=== PATIENT | female | born 1980 | race Caucasian/White ===

== ENCOUNTER 2018-10-26 13:23 | Observation (INO) | payer MEDICAID, SELFPAY ==
[2018-10-26 13:32] VITALS: BP 95/67; PULSE 61; RESP 18; TEMP 36.7; O2SAT 100
[2018-10-26 13:48] VITALS: RESP 18
--- NOTE | 2018-10-26 13:56 | W.ED.GENAD ---
Discharge Plan Disposition [facility] Discharge Details Chief Complaint: Vascular Clinical Impression: Excessive vaginal bleeding, Anticoagulated, Anemia, Acute deep vein thrombosis (DVT) of distal end of left lower extremity Primary Care Provider: Suzie Taylor ED Provider: Reddy Shine Home Meds and New Rx's Prescriptions: No Action Buprenorphine/Naloxone [Suboxone 12 MG-3 MG SL FILM] 1 EACH Film 1 unit PO DAILY RF: 0 methocarbamol 500 mg Tablet 500 mg PO QID PRNRF: 0 gabapentin 600 mg Tablet 600 mg PO TID RF: 0 trazodone 50 mg Tablet 50 mg PO QHS RF: 0 sulfamethoxazole-trimethoprim [Bactrim DS] 800-160 mg Tablet 1 tab PO BID RF: 0 acetaminophen 500 mg Tablet 1,000 mg PO Q6H PRNRF: 0 Therapeutic-M 9 mg iron-400 mcg Tablet 1 tab PO DAILY RF: 0 ferrous gluconate 324 mg (37.5 mg iron) Tablet 324 mg PO DAILY RF: 0 Eliquis 5 mg Tablet 10 mg PO BID RF: 0 Medical Decision Making This is a chronically unwell 37-year-old female with a significant history for IV drug use status post [id number] amputation of her right leg status post DVT of the left lower extremity now on Eliquis who presents with heavy vaginal bleeding in the setting of her menses. Her vitals reflect a blood pressure of 95/67 with a map of 76. Reviewing previous records indicate similar BP readings. She is not tachycardic here. Her abdomen is soft and nontender. She has good peripheral circulation with extremities warm and cap refill less than 2 seconds. Her pelvic exam reveals noted vaginal bleeding coming from the cervical os with moderate clot burden in the vaginal vault. No cervical lesions noted. Her lab values today show a anemia at 8.2 and 27. Platelet count within normal limits. She is hCG negative here. A positive on type and screen. Borderline requiring transfusion at this time. I feel admission with observation and potential transfusion is necessary. Case discussed with Dr. Ken from [facility] who also agrees and will admit to inpatient unit. HPI General Date/Time Provider Initiated Documentation: 10/26/18 13:31. HPI Narrative: Patient is a 37-year-old female status post right [id number]-fxa-xpmb amputation secondary to osteomyelitis from IV drug use, recently diagnosed DVT in her left lower extremity on Eliquis starting on 10/24/2018 who presents to the emergency department with severe heavy vaginal bleeding. Patient states she is normally quite regular and light with her menstrual period. She normally has light spotting for 3 to 4 days. Her vaginal bleeding today coincides with her scheduled menstrual cycle however her bleeding is quite abnormal. She admits to fatigue and some mild dizziness. She denies any abdominal pain. Related Data Home Medications Medication Instructions Recorded Confirmed Buprenorphine/Naloxone [Suboxone 1 unit PO DAILY 07/17/17 10/26/18 12 MG-3 MG SL FILM] acetaminophen 1,000 mg PO Q6H PRN 10/26/18 10/26/18 apixaban [Eliquis] 10 mg PO BID 10/26/18 10/26/18 ferrous gluconate 324 mg PO DAILY 10/26/18 10/26/18 gabapentin 600 mg PO TID 10/26/18 10/26/18 methocarbamol 500 mg PO QID PRN 10/26/18 10/26/18 mitnghor-gwaa-XA-calcium-mins 1 tab PO DAILY 10/26/18 10/26/18 [Therapeutic-M] sulfamethoxazole-trimethoprim 1 tab PO BID 10/26/18 10/26/18 [Bactrim DS] trazodone 50 mg PO QHS 10/26/18 10/26/18 Allergies Allergy/AdvReac Type Severity Reaction Status Date / Time No Known Allergies Allergy Unverified 10/26/18 13:38 General Stated Complaint: [facility] [employer] LEIF: 3 Review of Systems Constitutional Denies chills, Denies fever(s), Denies lethargy, Denies night sweats and Reports weakness Eyes Denies diplopia Cardiovascular Denies chest pain, Denies edema, Denies irregular heart rhythm, Reports lightheadedness and Denies dyspnea Respiratory Denies dyspnea Gastrointestinal Denies abdominal pain, Denies nausea and Denies vomiting Genitourinary Reports abnormal menses, Reports abnormal vaginal bleeding, Reports metrorrhagia, Denies dysuria and Denies pelvic pain Neurologic Reports weakness Hematologic/Lymphatic Reports easy bleeding and Reports easy bruising [facility] Social History Smoking/Tobacco Use Status: Never Alcohol Intake: never Drug use: Current Sobriety Substance use type: does not use Details: former cocaine and heroin use Do you feel safe at home: Yes Do you feel safe in your relationship?: No Exam Const General: cooperative, comfortable and no acute distress Orientation: alert, awake and oriented x3 HENMT Head: normal to inspection Mouth: oral mucosae normal Eyes General: appearance normal, both eyes and all related structures Chest Chest: normal inspection of the chest Resp Effort & Inspection: normal respiratory effort and able to speak in complete sentences Auscultation: clear to auscultation bilaterally Cardio Jugular venous pressure: no JVD Rate: regular rate Rhythm: regular rhythm Pulses: normal peripheral pulses GI Inspection: normal to inspection Palpation: soft and nontender Speculum Exam - Vagina: vaginal bleeding Speculum Exam - Cervix: closed cervix and abnormal cervical discharge bloody OB/External & Speculum: vaginal bleeding Skin General skin exam: petechiae (Left calf) and pallor Extrem Left lower extremity: lower leg Details: tenderness and non-pitting edema Course Vital Signs Temperature 36.7 C 10/26/18 13:32 Pulse 61 10/26/18 13:32 Respiratory Rate 18 10/26/18 13:32 Blood Pressure 95/67 L 10/26/18 13:32 Pulse Oximetry 100 10/26/18 13:32 Temperature 36.7 C 10/26/18 13:32 Temperature Source Temporal Artery Scan 10/26/18 13:32 Pulse 61 10/26/18 13:32 Respiratory Rate 18 10/26/18 13:48 Respiratory Effort Non-Labored 10/26/18 13:48 Respiratory Depth Normal 10/26/18 13:48 Respiratory Pattern Normal 10/26/18 13:48 Blood Pressure 95/67 L 10/26/18 13:32 Blood Pressure Position Sitting 10/26/18 13:32 Pulse Oximetry 100 10/26/18 13:32 Oxygen Delivery Method Room Air 10/26/18 13:32 Oxygen Flow Rate 0 10/26/18 13:32 Pain Level 0 10/26/18 13:48
[2018-10-26 14:46] LABS: Abs Immature Grans 0.01 k/cumm (0.0-0.09); Absolute Basophil Count 0.01 k/cumm (0.0-0.2); Absolute Eosinophil Count 0.09 k/cumm (0.0-0.7); Absolute Lymphocyte Count 0.69 k/cumm (1.2-3.4); Absolute Monocyte Count 0.33 k/cumm (0.11-0.7); Absolute Neutrophil Count 2.28 k/cumm (1.2-6.7); Basophils % 0.3; Eosinophils % 2.6; HCT 27.6 % (36.0-46.0); HGB 8.2 g/dL (12.0-15.5); Immature Grans % 0.3; Lymphocytes % 20.2; Mean Corp. HGB Concentration 29.7 g/dL (32.0-36.0); Mean Corpuscular Hemoglobin 24.9 pg (27.0-33.0); Mean Corpuscular Volume 83.9 fL (80-95); Mean Platelet Volume 10.7 fL (8.0-11.0); Monocytes % 9.7; Neutrophils % 66.9; Platelet Count 194 x1000/uL (130-400); RBC 3.29 m/cumm (4.00-5.20); White Blood Cell Count 3.41 k/cumm (4.4-10.8)
[2018-10-26 15:00] LABS: Diff Comment RBC Morph Reviewed; HCG Qual (Serum) Negative; Hypochromasia 3+
[2018-10-26 15:08] LABS: ALT 16 U/L (12-78); AST 43 U/L (15-37); Albumin 2.8 g/dL (3.4-5.0); Alkaline Phosphatase 122 U/L (46-116); BUN 15 mg/dL (7-18); Bilirubin, Total 0.4 mg/dL (0.2-1.0); CREATININE 1.18 mg/dL (0.55-1.02); Calcium 9.1 mg/dL (8.5-10.1); Chloride 102 mmol/L (98-107); Estimated GFR 52.13 (mL/min/1.73m2); Glucose 70 mg/dL (70-100); Potassium 4.9 mmol/L (3.5-5.1); Sodium 136 mmol/L (136-145); Total Protein 7.9 g/dL (6.4-8.2)
--- NOTE | 2018-10-26 15:34 | ED.GENADUL_ITS ---
Discharge Plan Disposition Patient Disposition: [facility] Discharge Details Chief Complaint: Vascular Clinical Impression: Excessive vaginal bleeding, Anticoagulated, Anemia, Acute deep vein thrombosis (DVT) of distal end of left lower extremity Primary Care Provider: Suzie Taylor ED Provider: Reddy Shine Home Meds and New Rx's Prescriptions: No Action Buprenorphine/Naloxone [Suboxone 12 MG-3 MG SL FILM] 1 EACH Film 1 unit PO DAILY RF: 0 methocarbamol 500 mg Tablet 500 mg PO QID PRNRF: 0 gabapentin 600 mg Tablet 600 mg PO TID RF: 0 trazodone 50 mg Tablet 50 mg PO QHS RF: 0 sulfamethoxazole-trimethoprim [Bactrim DS] 800-160 mg Tablet 1 tab PO BID RF: 0 acetaminophen 500 mg Tablet 1,000 mg PO Q6H PRNRF: 0 Therapeutic-M 9 mg iron-400 mcg Tablet 1 tab PO DAILY RF: 0 ferrous gluconate 324 mg (37.5 mg iron) Tablet 324 mg PO DAILY RF: 0 Eliquis 5 mg Tablet 10 mg PO BID RF: 0 Medical Decision Making This is a chronically unwell 37-year-old female with a significant history for IV drug use status post jxcic-oer-mahk amputation of her right leg status post DVT of the left lower extremity now on Eliquis who presents with heavy vaginal bleeding in the setting of her menses. Her vitals reflect a blood pressure of 95/67 with a map of 76. Reviewing previous records indicate similar BP readings. She is not tachycardic here. Her abdomen is soft and nontender. She has good peripheral circulation with extremities warm and cap refill less than 2 seconds. Her pelvic exam reveals noted vaginal bleeding coming from the cervical os with moderate clot burden in the vaginal vault. No cervical lesions noted. Her lab values today show a anemia at 8.2 and 27. Platelet count within normal limits. She is hCG negative here. A positive on type and screen. Borderline requiring transfusion at this time. I feel admission with observation and potential transfusion is necessary. Case discussed with Dr. Ken from [facility] who also agrees and will admit to inpatient unit. HPI General Date/Time Provider Initiated Documentation: 10/26/18 13:31 . HPI Narrative: Patient is a 37-year-old female status post right xbdfy-ryg-tgac amputation secondary to osteomyelitis from IV drug use, recently diagnosed DVT in her left lower extremity on Eliquis starting on 10/24/2018 who presents to the emergency department with severe heavy vaginal bleeding. Patient states she is normally quite regular and light with her menstrual period. She normally has light spotting for 3 to 4 days. Her vaginal bleeding today coincides with her scheduled menstrual cycle however her bleeding is quite abnormal. She admits to fatigue and some mild dizziness. She denies any abdominal pain. Related Data Home Medications Medication Instructions Recorded Confirmed Buprenorphine/Naloxone [Suboxone 1 unit PO DAILY 07/17/17 10/26/18 12 MG-3 MG SL FILM] acetaminophen 1,000 mg PO Q6H PRN 10/26/18 10/26/18 apixaban [Eliquis] 10 mg PO BID 10/26/18 10/26/18 ferrous gluconate 324 mg PO DAILY 10/26/18 10/26/18 gabapentin 600 mg PO TID 10/26/18 10/26/18 methocarbamol 500 mg PO QID PRN 10/26/18 10/26/18 jcsjgbcs-cief-OU-calcium-mins 1 tab PO DAILY 10/26/18 10/26/18 [Therapeutic-M] sulfamethoxazole-trimethoprim 1 tab PO BID 10/26/18 10/26/18 [Bactrim DS] trazodone 50 mg PO QHS 10/26/18 10/26/18 Allergies Allergy/AdvReac Type Severity Reaction Status Date / Time No Known Allergies Allergy Unverified 10/26/18 13:38 General Stated Complaint: [facility] LEIF: 3 Review of Systems Constitutional Denies chills, Denies fever(s), Denies lethargy, Denies night sweats and Reports weakness Eyes Denies diplopia Cardiovascular Denies chest pain, Denies edema, Denies irregular heart rhythm, Reports lightheadedness and Denies dyspnea Respiratory Denies dyspnea Gastrointestinal Denies abdominal pain, Denies nausea and Denies vomiting Genitourinary Reports abnormal menses, Reports abnormal vaginal bleeding, Reports m etrorrhagia, Denies dysuria and Denies pelvic pain Neurologic Reports weakness Hematologic/Lymphatic Reports easy bleeding and Reports easy bruising [facility] Social History Smoking/Tobacco Use Status: Never Alcohol Intake: never Drug use: Current Sobriety Substance use type: does not use Details: former cocaine and heroin use Do you feel safe at home: Yes Do you feel safe in your relationship?: No Exam Const General: cooperative, comfortable and no acute distress Orientation: alert, awake and oriented x3 HENMT Head: normal to inspection Mouth: oral mucosae normal Eyes General: appearance normal, both eyes and all related structures Chest Chest: normal inspection of the chest Resp Effort & Inspection: normal respiratory effort and able to speak in complete sentences Auscultation: clear to auscultation bilaterally Cardio Jugular venous pressure: no JVD Rate: regular rate Rhythm: regular rhythm Pulses: normal peripheral pulses GI Inspection: normal to inspection Palpation: soft and nontender Speculum Exam - Vagina: vaginal bleeding Speculum Exam - Cervix: closed cervix and abnormal cervical discharge bloody OB/External & Speculum: vaginal bleeding Skin General skin exam: petechiae (Left calf) and pallor Extrem Left lower extremity: lower leg Details: tenderness and non-pitting edema Course Vital Signs Temperature 36.7 C 10/26/18 13:32 Pulse 61 10/26/18 13:32 Respiratory Rate 18 10/26/18 13:32 Blood Pressure 95/67 L 10/26/18 13:32 Pulse Oximetry 100 10/26/18 13:32 Temperature 36.7 C 10/26/18 13:32 Temperature Source Temporal Artery Scan 10/26/18 13:32 Pulse 61 10/26/18 13:32 Respiratory Rate 18 10/26/18 13:48 Respiratory Effort Non-Labored 10/26/18 13:48 Respiratory Depth Normal 10/26/18 13:48 Respiratory Pattern Normal 10/26/18 13:48 Blood Pressure 95/67 L 10/26/18 13:32 Blood Pressure Position Sitting 10/26/18 13:32 Pulse Oximetry 100 10/26/18 13:32 Oxygen Delivery Method Room Air 10/26/18 13:32 Oxygen Flow Rate 0 10/26/18 13:32 Pain Level 0 10/26/18 13:48
[2018-10-26 16:45] VITALS: BP 100/68; PULSE 66; RESP 15; TEMP 36.8; O2SAT 98
[2018-10-26] MEDS: Acetaminophen 500 MG TAB 1000 MG PO ×2 (16:59→22:48)
[2018-10-26] MEDS: Lactated Ringers 1,000 ML 125 ML IV (17:00)
[2018-10-26] MEDS: Methocarbamol 500 MG TAB PO ×2 (17:00→22:48)
[2018-10-26] MEDS: Norethindrone 5 MG TAB PO ×2 (17:33→22:43)
--- NOTE | 2018-10-26 18:12 | W.PM.HP.N ---
Date of service: 10/26/18 Time of Service: 18:13 Assessment and Plan (1) Hx of opioid abuse: Current visit: Yes Status: Chronic We will continue on her Suboxone dose (2) Normocytic hypochromic anemia: Current visit: Yes Status: Acute Is unclear to me if her current anemia is secondary to chronic disease or the results of menorrhagia. Plan repeat CBC in the morning. She will receive Tranexamic Acid and Norethindrone Acetate to control uterine bleeding. Treatment with norethindrone is compatible with her current anticoagulation. (3) Abnormal uterine bleeding (AUB): Current visit: Yes Status: Acute She will receive Tranexamic Acid and Norethindrone Acetate to control uterine bleeding. Treatment with norethindrone is compatible with her current anticoagulation. (4) Femoral artery aneurysm, right: Current visit: Yes Status: Resolved (5) Complete below knee amputation of right lower extremity: Current visit: Yes Status: Acute Qualifiers: Encounter type: sequela Qualified Code(s): S88.111S - Complete traumatic amputation at level between knee and ankle, right lower leg, sequela (6) DVT, lower extremity, distal, acute: Current visit: Yes Status: Acute Qualifiers: Laterality: left Qualified Code(s): I82.4Z2 - Acute embolism and thrombosis of unspecified deep veins of left distal lower extremity History of Present Illness Chief Complaint: Heavy menses and anemia Narrative: Patient is a 37-year-old G1, P1 female currently not using contraception who presented to the [facility] emergency department this morning with report of uncharacteristically heavy vaginal bleeding beginning 10/24/2018. She described passage of clots and saturating peripads. A CBC performed in the emergency room showed a hemoglobin of 8.2, a MCV of 83, and a WBC of 3.4, with a normal platelet count. Patient was recently diagnosed with a left lower extremity DVT and initiated Eliquis on 10/24/2018. Because of the new onset of heavy menses and initiation of anticoagulation decision was made to admit the patient for observation and possible transfusion if her anemia were to worsen. She is agreeable to the plan. Review of Systems Review of Systems I interviewed the patient in the emergency department Constitutional Reports as per HPI and Reports weakness Genitourinary Comments: Normally has monthly menses with an average amount of flow and minimal dysmenorrhea. Musculoskeletal Comments: Lower extremity petechiae over the gastrocnemius and tibia region. Scars from previous abscess sites darkened with onset of DVT Neurologic Reports weakness [facility] Medical History DVT, lower extremity, distal, acute (Acute) Abnormal uterine bleeding (AUB) (Acute) Normocytic hypochromic anemia (Acute) Hx of opioid abuse (Chronic) Surgical History Complete below knee amputation of right lower extremity (Acute) Femoral artery aneurysm, right (Resolved) Social History Smoking/Tobacco Use Status: Never Alcohol Intake: never Drug use: Current Sobriety Substance use type: former substance user, crack/cocaine and heroin Details: former cocaine and heroin use. Patient is currently enrolled at [facility] Household members: children and other Details: Patient resides at her sister's house with her daughter Number of Children: 1 current occupation: Unemployed Do you feel safe at home: Yes Do you feel safe in your relationship?: No Meds Home Medications Medication Instructions Recorded Confirmed Type Buprenorphine/Naloxone [Suboxone 1 unit PO DAILY 07/17/17 10/26/18 History 12 MG-3 MG SL FILM] acetaminophen 1,000 mg PO Q6H PRN 10/26/18 10/26/18 History apixaban [Eliquis] 10 mg PO BID 10/26/18 10/26/18 History ferrous gluconate 324 mg PO DAILY 10/26/18 10/26/18 History gabapentin 600 mg PO TID 10/26/18 10/26/18 History methocarbamol 500 mg PO QID PRN 10/26/18 10/26/18 History wvytwjyn-xzui-BH-calcium-mins 1 tab PO DAILY 10/26/18 10/26/18 History [Therapeutic-M] sulfamethoxazole-trimethoprim 1 tab PO BID 10/26/18 10/26/18 History [Bactrim DS] trazodone 50 mg PO QHS 10/26/18 10/26/18 History Allergies Allergy/AdvReac Type Severity Reaction Status Date / Time No Known Allergies Allergy Unverified 10/26/18 13:38 Exam Const General: ill appearing Nutritional Appearance: thin Orientation: alert, awake and oriented x3 Other: chronically ill-appearing. Sitting semi-fowlers on gurney Resp Effort & Inspection: normal respiratory effort Auscultation: clear to auscultation bilaterally Cardio Palpation: normal PMI Rate: regular rate Rhythm: regular rhythm Heart Sounds: S1 normal and S2 normal GI Palpation: soft and no hepatosplenomegaly General: bimanual renal exam normal bilaterally External Female Exam: external appearance normal Bimanual Exam- Vagina & Uterus: normal bimanual exam, uterine size normal, uterine consistency normal, uterine mobility normal and uterus non-tender Bimanual Exam- Adnexa, other: normal adnexae, adnexae mobile and no adnexal masses Other: Did not repeat the speculum exam. Small amount of bright red blood on exam glove. Skin General skin exam: erythema (Left lower extremity discolored) and petechiae Lesions: lesion noted (Left lower extremity previous abscess sites) Rashes: no rashes Trauma: other (Did not examine the patient's surgical stump) Wounds: amputation site Hair: normal Nails: normal Psych Appearance: grossly normal Speech and Movement: speech and movement normal Mood: congruent mood Affect: normal affect Results Labs : 10/26/18 14:30 10/26/18 14:30 Laboratory Results - last 24 hr 10/26/18 10/26/18 10/26/18 14:30 14:30 14:30 WBC 3.41 L RBC 3.29 L Hgb 8.2 L Hct 27.6 L MCV 83.9 MCH 24.9 L MCHC 29.7 L RDW 15.0 H Plt Count 194 MPV 10.7 Immature Gran % 0.3 Neutrophils % 66.9 Lymphocytes % 20.2 Monocytes % 9.7 Eosinophils % 2.6 Basophils % 0.3 Absolute Neutrophils 2.28 Absolute Lymphocytes 0.69 L Absolute Monocytes 0.33 Absolute Eosinophils 0.09 Absolute Basophils 0.01 Differential Comment Rbc morph reviewed RBC Morphology See below Hypochromasia 3+ Sodium 136 Potassium 4.9 Chloride 102 Carbon Dioxide 24.0 Anion Gap 10.0 BUN 15 Creatinine 1.18 H Estimated GFR/1.73 m2 52.13 Glucose 70 Calcium 9.1 Total Bilirubin 0.4 AST 43 H ALT 16 Alkaline Phosphatase 122 H Total Protein 7.9 Albumin 2.8 L Serum HCG, Qual Negative Patient ABO/Rh Antibody Screen 10/26/18 14:30 WBC RBC Hgb Hct MCV MCH MCHC RDW Plt Count MPV Immature Gran % Neutrophils % Lymphocytes % Monocytes % Eosinophils % Basophils % Absolute Neutrophils Absolute Lymphocytes Absolute Monocytes Absolute Eosinophils Absolute Basophils Differential Comment RBC Morphology Hypochromasia Sodium Potassium Chloride Carbon Dioxide Anion Gap BUN Creatinine Estimated GFR/1.73 m2 Glucose Calcium Total Bilirubin AST ALT Alkaline Phosphatase Total Protein Albumin Serum HCG, Qual Patient ABO/Rh A Positive Antibody Screen Negative Last Vital Signs Temp 98.2 F 10/26/18 16:45 Pulse 66 10/26/18 16:45 Resp 15 10/26/18 16:45 BP 100/68 10/26/18 16:45 Pulse Ox 98 10/26/18 16:45
[2018-10-26] MEDS: Apixaban 5 MG TAB 10 MG PO (21:13)
[2018-10-26] MEDS: Sulfameth/Trimeth DS TAB 1 TAB PO (21:14)
[2018-10-26] MEDS: Gabapentin 600 MG TAB PO (21:14)
[2018-10-26] MEDS: traZODone 50 MG TAB PO (21:14)
[2018-10-26] MEDS: Tranexamic Acid 650 MG TAB 1300 MG PO (21:20)
[2018-10-26 23:41] VITALS: BP 80/45; PULSE 59; RESP 18; TEMP 37; O2SAT 100
[2018-10-27] MEDS: Norethindrone 5 MG TAB PO ×6 (02:10→21:52)
[2018-10-27] MEDS: Acetaminophen 500 MG TAB 1000 MG PO (03:50)
[2018-10-27] MEDS: Methocarbamol 500 MG TAB PO ×2 (03:50→14:29)
[2018-10-27 07:21] VITALS: BP 87/54; PULSE 58; RESP 16; TEMP 36.9; O2SAT 99
--- NOTE | 2018-10-27 07:44 | NUR.NOTE ---
Nursing Note: [id number]: called [facility] and spoke with nursing, Carleen Fowler. per Janeth's report, last dose administration was 10/26/18 with an 8mg dose being given. called and reported to pharmacy, [place] pharmacist who states she will call Dr. Chatman for a dose change.
[2018-10-27 07:56] LABS: HCT 25.6 % (36.0-46.0); HGB 7.9 g/dL (12.0-15.5); Mean Corp. HGB Concentration 30.9 g/dL (32.0-36.0); Mean Corpuscular Hemoglobin 25.6 pg (27.0-33.0); Mean Corpuscular Volume 83.1 fL (80-95); Mean Platelet Volume 11.5 fL (8.0-11.0); Platelet Count 167 x1000/uL (130-400); RBC 3.08 m/cumm (4.00-5.20); RBC Distribution Width 15.1 % (11.7-14.6)
[2018-10-27] MEDS: Tranexamic Acid 650 MG TAB 1300 MG PO ×2 (09:05→20:25)
[2018-10-27] MEDS: Prenatal Multivitamin w/CA,FE TAB 1 TAB PO (09:05)
[2018-10-27] MEDS: Gabapentin 600 MG TAB PO ×3 (09:06→20:25)
[2018-10-27] MEDS: Ferrous Gluconate 324 MG TAB PO (09:06)
[2018-10-27] MEDS: Buprenorphine/Naloxone 8 mg/2 mg FILM 1 EACH SL (09:06)
[2018-10-27] MEDS: Sulfameth/Trimeth DS TAB 1 TAB PO ×2 (09:06→20:25)
[2018-10-27 11:05] VITALS: BP 88/50
[2018-10-27 11:41] LABS: Reticulocyte 1.2 % (0.5-2.4)
--- NOTE | 2018-10-27 11:42 | W.MEDCONSULT ---
Date of service: 10/27/18 Time of Service: 11:42 Assessment and Plan (1) Acute on chronic anemia: Current visit: Yes Status: Acute Anemia studies are being obtained. This includes iron/TIBC, ferritin, B12, folate, reticulocyte count. The patient is on bactrim - but she has been on it before and has tolerated it. I doubt that the patient is having hemolysis - there are no schistocytes on her smear. No indication for transfusion unless her Hgb is less than 7.5. (2) DVT, lower extremity, distal, acute: Current visit: Yes Status: Acute Continue eliquis - having said this, we need to obtain results of the doppler - if DVT is dital, perhaps it does not need to be anticoagulated. Obtaining records. Qualifiers: Laterality: left Qualified Code(s): I82.4Z2 - Acute embolism and thrombosis of unspecified deep veins of left distal lower extremity (3) Complete below knee amputation of right lower extremity: Current visit: Yes Status: Acute consult PT/OT due to falls at home Qualifiers: Encounter type: sequela Qualified Code(s): S88.111S - Complete traumatic amputation at level between knee and ankle, right lower leg, sequela (4) Osteomyelitis of right lower extremity: Current visit: Yes Status: Chronic Obtaining culture results from surgery office in [facility]. (5) Petechial rash: Current visit: Yes Status: Acute At this time, I do not feel it reflects infection. It is getting better. The patient has previously tolerated bactrim without rash. Will watch. (6) Hypotension: Current visit: Yes Status: Chronic Monitor - if symptomatic, transfuse. Also, if becomes symptomatic, would rule out PE. (7) Abnormal uterine bleeding (AUB): Current visit: Yes Status: Acute Defer to primary team (8) Heart murmur: Current visit: Yes Status: Acute Possibly a flow murmur; however, the patient is certainly a high risk for having an intracardiac infection. She has previously had a YG - this was a long time ago, per patient, and was negative. Will obtain a thransthoracic echo. 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 We were asked to see the patient for her anemia. The patient states she is not dizzy, having chest pain (with inspiration or otherwise), shortness of breath, or palpitations. She was never told she had a heart murmur before, but per nursing, she has one this morning. Review of Systems Review of Systems 12 systems reviewed. Pertinent positives and negatives as per HPI. In addition, the patient has a rash on her LLE since yesterday - she states it looks better today than it did yesterday. She reports ongoing drainage out of her RLE stump. She describes 2 recent falls (one at the hospital in [place], one at home down the stairs) while on crutches, which she normally uses to ambulate. She states she has not used any drugs since last year. Denies fevers/chills. PFSH Medical History Hx of hepatitis C (Acute) DVT, lower extremity, distal, acute (Acute) Abnormal uterine bleeding (AUB) (Acute) Normocytic hypochromic anemia (Acute) Hx of opioid abuse (Chronic) Endometriosis (Chronic) Raynaud disease (Chronic) Sciatic pain (Chronic) Surgical History Complete below knee amputation of right lower extremity (Acute) Femoral artery aneurysm, right (Resolved) H/O hand surgery (Chronic) History of transesophageal echocardiography (YG) (Chronic) Retained foreign body (Chronic) Family History Father Diabetes Paternal Grandfather Diabetes Paternal Aunt Diabetes Maternal Grandmother Breast cancer Maternal Aunt Multiple sclerosis Social History Smoking/Tobacco Use Status: Never Alcohol Intake: never Drug use: Current Sobriety Substance use type: former substance user, crack/cocaine, heroin and methamphetamine Details: former cocaine (snorted, smoked, IV) and heroin use (IV), as well as crystal meth (IV). Patient is currently enrolled at [facility], on suboxone Household members: children and other Details: Patient resides at her sister's house with her daughter Number of Children: 1 current occupation: Unemployed Do you feel safe at home: Yes Do you feel safe in your relationship?: No Additional Social history: Ambulates with crutches - 2 falls recently Exam Narrative Exam Narrative: General: very pleasant female, seems to be ambulating around the room on crutches without difficulty, pale, pink mucosa Neuro: A&Ox3, no focal deficits Psych: appropriate speech pattern/content/affect Skin: pale; many old healed cuts seen on BUE; B groin incisions healed. RLE inner thigh incision healed. RLE stump is dressed - some mild erythema is noticeable through RLE dressing. LLE with mild erythema, small scabs; petechial rash on inner/posterior calf. HEENT: Normocephalic, EOMI, MMM, no submandibular or cervical lymphadenopathy, no goiter or JVD Heart: RRR, quiet BENNIE best heard at the 2nd intercostal space on the R Lungs: CTAB GI: abdomen is soft, nontender, nondistended Extremities: s/p R BKA (stump dressed); LLE with no palpable pulse (dopplerable); very mild erythema, petechial rash as above Results Last Vital Signs Temp 36.9 C 10/27/18 07:21 Pulse 58 L 10/27/18 07:21 Resp 16 10/27/18 07:21 BP 88/50 L 10/27/18 11:05 Pulse Ox 99 10/27/18 07:21 Labs : 10/27/18 06:35 10/26/18 14:30 Laboratory Results - last 24 hr 10/26/18 10/26/18 10/26/18 14:30 14:30 14:30 WBC 3.41 L RBC 3.29 L Hgb 8.2 L Hct 27.6 L MCV 83.9 MCH 24.9 L MCHC 29.7 L RDW 15.0 H Plt Count 194 MPV 10.7 Immature Gran % 0.3 Neutrophils % 66.9 Lymphocytes % 20.2 Monocytes % 9.7 Eosinophils % 2.6 Basophils % 0.3 Absolute Neutrophils 2.28 Absolute Lymphocytes 0.69 L Absolute Monocytes 0.33 Absolute Eosinophils 0.09 Absolute Basophils 0.01 Differential Comment Rbc morph reviewed RBC Morphology See below Hypochromasia 3+ Retic Count Sodium 136 Potassium 4.9 Chloride 102 Carbon Dioxide 24.0 Anion Gap 10.0 BUN 15 Creatinine 1.18 H Estimated GFR/1.73 m2 52.13 Glucose 70 Calcium 9.1 Iron TIBC Transferrin % Sat Total Bilirubin 0.4 AST 43 H ALT 16 Alkaline Phosphatase 122 H Total Protein 7.9 Albumin 2.8 L Serum HCG, Qual Negative Patient ABO/Rh Antibody Screen 10/26/18 10/26/18 10/26/18 14:30 14:30 14:30 WBC RBC Hgb Hct MCV MCH MCHC RDW Plt Count MPV Immature Gran % Neutrophils % Lymphocytes % Monocytes % Eosinophils % Basophils % Absolute Neutrophils Absolute Lymphocytes Absolute Monocytes Absolute Eosinophils Absolute Basophils Differential Comment RBC Morphology Hypochromasia Retic Count Cancelled Sodium Potassium Chloride Carbon Dioxide Anion Gap BUN Creatinine Estimated GFR/1.73 m2 Glucose Calcium Iron Cancelled TIBC Cancelled Transferrin % Sat Cancelled Total Bilirubin AST ALT Alkaline Phosphatase Total Protein Albumin Serum HCG, Qual Patient ABO/Rh A Positive Antibody Screen Negative 10/27/18 06:35 WBC 2.70 L RBC 3.08 L Hgb 7.9 L Hct 25.6 L MCV 83.1 MCH 25.6 L MCHC 30.9 L RDW 15.1 H Plt Count 167 MPV 11.5 H Immature Gran % Neutrophils % Lymphocytes % Monocytes % Eosinophils % Basophils % Absolute Neutrophils Absolute Lymphocytes Absolute Monocytes Absolute Eosinophils Absolute Basophils Differential Comment RBC Morphology Hypochromasia Retic Count 1.2 Sodium Potassium Chloride Carbon Dioxide Anion Gap BUN Creatinine Estimated GFR/1.73 m2 Glucose Calcium Iron TIBC Transferrin % Sat Total Bilirubin AST ALT Alkaline Phosphatase Total Protein Albumin Serum HCG, Qual Patient ABO/Rh Antibody Screen
--- NOTE | 2018-10-27 11:46 | MCONE_ITS ---
Date of service: 10/27/18 Time of Service: 11:42 Assessment and Plan (1) Acute on chronic anemia: Current visit: Yes Status: Acute Anemia studies are being obtained. This includes iron/TIBC, ferritin, B12, folate, reticulocyte count. The patient is on bactrim - but she has been on it before and has tolerated it. I doubt that the patient is having hemolysis - there are no schistocytes on her smear. No indication for transfusion unless her Hgb is less than 7.5. (2) DVT, lower extremity, distal, acute: Current visit: Yes Status: Acute Continue eliquis - having said this, we need to obtain results of the doppler - if DVT is dital, perhaps it does not need to be anticoagulated. Obtaining records. Qualifiers: Laterality: left Qualified Code(s): I82.4Z2 - Acute embolism and thrombosis of unspecified deep veins of left distal lower extremity (3) Complete below knee amputation of right lower extremity: Current visit: Yes Status: Acute consult PT/OT due to falls at home Qualifiers: Encounter type: sequela Qualified Code(s): S88.111S - Complete traumatic amputation at level between knee and ankle, right lower leg, sequela (4) Osteomyelitis of right lower extremity: Current visit: Yes Status: Chronic Obtaining culture results from surgery office in [facility]. (5) Petechial rash: Current visit: Yes Status: Acute At this time, I do not feel it reflects infection. It is getting better. The patient has previously tolerated bactrim without rash. Will watch. (6) Hypotension: Current visit: Yes Status: Chronic Monitor - if symptomatic, transfuse. Also, if becomes symptomatic, would rule out PE. (7) Abnormal uterine bleeding (AUB): Current visit: Yes Status: Acute Defer to primary team (8) Heart murmur: Current visit: Yes Status: Acute Possibly a flow murmur; however, the patient is certainly a high risk for having an intracardiac infection. She has previously had a YG - this was a long time ago, per patient, and was negative. Will obtain a thransthoracic echo. 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 We were asked to see the patient for her anemia. The patient states she is not dizzy, having chest pain (with inspiration or otherwise), shortness of breath, or palpitations. She was never told she had a heart murmur before, but per nursing, she has one this morning. Review of Systems Review of Systems 12 systems reviewed. Pertinent positives and negatives as per HPI. In addition, the patient has a rash on her LLE since yesterday - she states it looks better today than it did yesterday. She reports ongoing drainage out of her RLE stump. She describes 2 recent falls (one at the hospital in [place], one at home down the stairs) while on crutches, which she normally uses to ambulate. She states she has not used any drugs since last year. Denies fevers/chills. PFSH Medical History Hx of hepatitis C (Acute) DVT, lower extremity, distal, acute (Acute) Abnormal uterine bleeding (AUB) (Acute) Normocytic hypochromic anemia (Acute) Hx of opioid abuse (Chronic) Endometriosis (Chronic) Raynaud disease (Chronic) Sciatic pain (Chronic) Surgical History Complete below knee amputation of right lower extremity (Acute) Femoral artery aneurysm, right (Resolved) H/O hand surgery (Chronic) History of transesophageal echocardiography (YG) (Chronic) Retained foreign body (Chronic) Family History Father Diabetes Paternal Grandfather Diabetes Paternal Aunt Diabetes Maternal Grandmother Breast cancer Maternal Aunt Multiple sclerosis Social History Smoking/Tobacco Use Status: Never Alcohol Intake: never Drug use: Current Sobriety Substance use type: former substance user, crack/cocaine, heroin and methamphetamine Details: former cocaine (snorted, smoked, IV) and heroin use (IV), as well as crystal meth (IV). Patient is currently enrolled at [facility], on suboxone Household members: children and other Details: Patient resides at her sister's house with her daughter Number of Children: 1 current occupation: Unemployed Do you feel safe at home: Yes Do you feel safe in your relationship?: No Additional Social history: Ambulates with crutches - 2 falls recently Exam Narrative Exam Narrative: General: very pleasant female, seems to be ambulating around the room on crutches without difficulty, pale, pink mucosa Neuro: A&Ox3, no focal deficits Psych: appropriate speech pattern/content/affect Skin: pale; many old healed cuts seen on BUE; B groin incisions healed. RLE inner thigh incision healed. RLE stump is dressed - some mild erythema is not iceable through RLE dressing. LLE with mild erythema, small scabs; petechial rash on inner/posterior calf. HEENT: Normocephalic, EOMI, MMM, no submandibular or cervical lymphadenopathy, no goiter or JVD Heart: RRR, quiet BENNIE best heard at the 2nd intercostal space on the R Lungs: CTAB GI: abdomen is soft, nontender, nondistended Extremities: s/p R BKA (stump dressed); LLE with no palpable pulse (d opplerable); very mild erythema, petechial rash as above Results Last Vital Signs Temp 36.9 C 10/27/18 07:21 Pulse 58 L 10/27/18 07:21 Resp 16 10/27/18 07:21 BP 88/50 L 10/27/18 11:05 Pulse Ox 99 10/27/18 07:21 Labs : 10/27/18 06:35 10/26/18 14:30 Laboratory Results - last 24 hr 10/26/18 10/26/18 10/26/18 14:30 14:30 14:30 WBC 3.41 L RBC 3.29 L Hgb 8.2 L Hct 27.6 L MCV 83.9 MCH 24.9 L MCHC 29.7 L RDW 15.0 H Plt Count 194 MPV 10.7 Immature Gran % 0.3 Neutrophils % 66.9 Lymphocytes % 20.2 Monocytes % 9.7 Eosinophils % 2.6 Basophils % 0.3 Absolute Neutrophils 2.28 Absolute Lymphocytes 0.69 L Absolute Monocytes 0.33 Absolute Eosinophils 0.09 Absolute Basophils 0.01 Differential Comment Rbc morph reviewed RBC Morphology See below Hypochromasia 3+ Retic Count Sodium 136 Potassium 4.9 Chloride 102 Carbon Dioxide 24.0 Anion Gap 10.0 BUN 15 Creatinine 1.18 H Estimated GFR/1.73 m2 52.13 Glucose 70 Calcium 9.1 Iron TIBC Transferrin % Sat Total Bilirubin 0.4 AST 43 H ALT 16 Alkaline Phosphatase 122 H Total Protein 7.9 Albumin 2.8 L Serum HCG, Qual Negative Patient ABO/Rh Antibody Screen 10/26/18 10/26/18 10/26/18 14:30 14:30 14:30 WBC RBC Hgb Hct MCV MCH MCHC RDW Plt Count MPV Immature Gran % Neutrophils % Lymphocytes % Monocytes % Eosinophils % Basophils % Absolute Neutrophils Absolute Lymphocytes Absolute Monocytes Absolute Eosinophils Absolute Basophils Differential Comment RBC Morphology Hypochromasia Retic Count Cancelled Sodium Potassium Chloride Carbon Dioxide Anion Gap BUN Creatinine Estimated GFR/1.73 m2 Glucose Calcium Iron Cancelled TIBC Cancelled Transferrin % Sat Cancelled Total Bilirubin AST ALT Alkaline Phosphatase Total Protein Albumin Serum HCG, Qual Patient ABO/Rh A Positive Antibody Screen Negative 10/27/18 06:35 WBC 2.70 L RBC 3.08 L Hgb 7.9 L Hct 25.6 L MCV 83.1 MCH 25.6 L MCHC 30.9 L RDW 15.1 H Plt Count 167 MPV 11.5 H Immature Gran % Neutrophils % Lymphocytes % Monocytes % Eosinophils % Basophils % Absolute Neutrophils Absolute Lymphocytes Absolute Monocytes Absolute Eosinophils Absolute Basophils Differential Comment RBC Morphology Hypochromasia Retic Count 1.2 Sodium Potassium Chloride Carbon Dioxide Anion Gap BUN Creatinine Estimated GFR/1.73 m2 Glucose Calcium Iron TIBC Transferrin % Sat Total Bilirubin AST ALT Alkaline Phosphatase Total Protein Albumin Serum HCG, Qual Patient ABO/Rh Antibody Screen
[2018-10-27 12:08] LABS: Ferritin 21 ng/mL (8-388)
[2018-10-27] MEDS: Apixaban 5 MG TAB 10 MG PO ×2 (12:09→20:25)
--- NOTE | 2018-10-27 15:01 | PDOC.CMIN ---
Care Management Initial Assess REASON FOR HOSPITALIZATION:: Abnormal Uterine Bleeding PAST MEDICAL HISTORY/PAST SURGICAL HISTORY:: Medical: Hx of hepatitis C (Acute); DVT, lower extremity, distal, acute (Acute); Abnormal uterine bleeding (AUB) (Acute); Normocytic hypochromic anemia (Acute); Hx of opioid abuse (Chronic); Endometriosis (Chronic); Raynaud disease (Chronic); Sciatic pain (Chronic). Surgical: Complete below knee amputation of right lower extremity (Acute). Femoral artery aneurysm, right (Resolved); H/O hand surgery (Chronic). History of transesophageal echocardiography (YG) (Chronic); Retained foreign body (Chronic) PREVIOUS FUNCTIONAL STATUS/SOCIAL/FAMILY SUPPORTS:: Independent at baseline. Currently she and her 7 yo daughter live with her sister and brother in law at their home in [facility]. Mother lives nearby. CURRENT FUNCTIONAL STATUS:: Lying in bed sound asleep ADVANCE DIRECTIVES:: None on file Has patient been provided with information about the portal?: No Did the patient sign up for the portal?: No CODE STATUS:: Full Code INSURANCE COVERAGE / FINANCIAL ISSUES:: Medicaid CURRENT HOME/COMMUNITY SERVICES/EQUIPMENT:: Uses crutches and has applied for a Wheel chair through medicaid. Currently receives services. PRIMARY CARE PHYSICIAN:: [facility] - HARI Amaya POTENTIAL DISCHARGE NEEDS:: No new needs identified at this time PATIENT/FAMILY EDUCATION NEEDS:: Discharge instructions ANTICIPATED BARRIERS TO DISCHARGE:: None identified TRANSPORTATION:: Family will transport by car PLAN:: Lindsay will return home and resume current services. Readmission - Within the Past 30 Days Yes or No: N
--- NOTE | 2018-10-27 16:20 | INITIAL_ITS ---
Care Management Initial Assess REASON FOR HOSPITALIZATION:: Abnormal Uterine Bleeding PAST MEDICAL HISTORY/PAST SURGICAL HISTORY:: Medical: Hx of hepatitis C (Acute); DVT, lower extremity, distal, acute (Acute); Abnormal uterine bleeding (AUB) (Acute); Normocytic hypochromic anemia (Acute); Hx of opioid abuse (Chronic); Endometriosis (Chronic); Raynaud disease (Chronic); Sciatic pain (Chronic). Surgical: Complete below knee amputation of right lower extremity (Acute). Femoral artery aneurysm, right (Resolved); H/O hand surgery (Chronic). History of transesophageal echocardiography (YG) (Chronic); Retained foreign body (Chronic) PREVIOUS FUNCTIONAL STATUS/SOCIAL/FAMILY SUPPORTS:: Independent at baseline. Currently she and her 7 yo daughter live with her sister and brother in law at their home in [place] [facility]. Mother lives nearby. CURRENT FUNCTIONAL STATUS:: Lying in bed sound asleep ADVANCE DIRECTIVES:: None on file Has patient been provided with information about the portal?: No Did the patient sign up for the portal?: No CODE STATUS:: Full Code INSURANCE COVERAGE / FINANCIAL ISSUES:: Medicaid CURRENT HOME/COMMUNITY SERVICES/EQUIPMENT:: Uses crutches and has applied for a Wheel chair through medicaid. Currently receives services. PRIMARY CARE PHYSICIAN:: [facility] [place] - HARI Amaya POTENTIAL DISCHARGE NEEDS:: No new needs identified at this time PATIENT/FAMILY EDUCATION NEEDS:: Discharge instructions ANTICIPATED BARRIERS TO DISCHARGE:: None identified TRANSPORTATION:: Family will transport by car PLAN:: Lindsay will return home and resume current services. Readmission - Within the Past 30 Days Yes or No: N
[2018-10-27] MEDS: Ascorbic Acid 500 MG TAB PO (20:25)
--- NOTE | 2018-10-27 20:59 | PGE_ITS ---
Date of Service Date of service: 10/27/18 Time of Service: 20:45 Assessment and Plan (1) Hx of opioid abuse: Current visit: Yes Status: Chronic We will continue on her Suboxone dose (2) Normocytic hypochromic anemia: Current visit: Yes Status: Acute Is unclear to me if her current anemia is secondary to chronic disease or the results of menorrhagia. Plan repeat CBC in the morning. Hospitalist consult greatly appreciated. (3) Abnormal uterine bleeding (AUB): Current visit: Yes Status: Acute Continues with Tranexamic Acid and Norethindrone Acetate to control uterine bleeding. Bleeding is less but has not subsided. Will continue current dosing regime. (4) Femoral artery aneurysm, right: Current visit: Yes Status: Resolved (5) Complete below knee amputation of right lower extremity: Current visit: Yes Status: Acute Qualifiers: Encounter type: sequela Qualified Code(s): S88.111S - Complete traumatic amputation at level between knee and ankle, right lower leg, sequela (6) DVT, lower extremity, distal, acute: Current visit: Yes Status: Acute Continue on current regime of TXA. Qualifiers: Laterality: left Qualified Code(s): I82.4Z2 - Acute embolism and thrombosis of unspecified deep veins of left distal lower extremity Subjective Patient reports: no new complaints Interval history since last seen: Pad use during the night: 2. No clots. During am:1. No excessive bleeding when OOB. Misses her daughter. Would like to go home. Exam Narrative Exam Narrative: HD 2. Admitted to [facility] for anemia, heavy menses after initiating anti-coagulation for L LE DVT. Vaginal bleeding has been mild since admission but H/H has continued to decline. IV access infiltrated after arrival on floor yesterday and I recommended that it remain out since no transfusion was planned. I discussed with pt my concerns: that bleeding was not the primary cause of anemia. Hospitalist consult was requested and recommendations greatly appreciated. She is aware that the w/u is pending and requests that some of it be performed as an outpt. I told her that we will evaluate discharge plans pending results of CBC 10/28/18 and Hospitalist input. Neck Neck: normal visual inspection Resp Effort & Inspection: normal respiratory effort Auscultation: clear to auscultation bilaterally Cardio Palpation: normal PMI Rate: regular rate Rhythm: regular rhythm Heart Sounds: S1 normal and S2 normal GI Inspection: normal to inspection Palpation: soft and no hepatosplenomegaly General: deferred Skin General skin exam: petechiae (no increase in distribution) and other (L LE edema sl improved. Pedal pulse present.) Wounds: amputation site (has not changed dressing today. will begin BID changes) Extrem Other: LLE remains edematous and redened. Psych Appearance: grossly normal Mental Status: other (wants to see her daughter. ) Mood: other (wants to see her daughter. ) Objective Objective Clinical Data: Abnormal lab results 10/27/18 Range/Units 06:35 WBC 2.70 L (4.4-10.8) k/cumm RBC 3.08 L (4.00-5.20) m/cumm Hgb 7.9 L (12.0-15.5) g/dL Hct 25.6 L (36.0-46.0) % MCH 25.6 L (27.0-33.0) pg MCHC 30.9 L (32.0-36.0) g/dL RDW 15.1 H (11.7-14.6) % MPV 11.5 H (8.0-11.0) fL Vital Signs Temperature 98.4 F 10/27/18 07:21 Temperature Source Tympanic 10/27/18 07:21 Pulse 58 L 10/27/18 07:21 Pulse Rhythm Regular 10/27/18 16:47 Respiratory Rate 16 10/27/18 07:21 Respiratory Effort Non-Labored 10/27/18 16:47 Respiratory Depth Normal 10/27/18 16:47 Respiratory Pattern Normal 10/27/18 16:47 Blood Pressure 88/50 L 10/27/18 11:05 Blood Pressure Position Sitting 10/26/18 13:32 Pulse Oximetry 99 10/27/18 07:21 Oxygen Delivery Method Room Air 10/27/18 07:21 Oxygen Flow Rate 0 10/27/18 07:21 Pain Level 7 10/27/18 03:50 Comment 10/26/18 23:41 Intake & Output 10/26/18 10/27/18 10/27/18 23:59 11:59 23:59 Intake Total 43.75 / 43.75 340 / 1270 930 / 1270 Output Total 500 / 500 Balance -456.25 / -456.25 340 / 1270 930 / 1270 Weight 132 lb 4.438 oz Intake: IV 43.75 / 43.75 Oral 340 / 1270 930 / 1270 Output: Urine 500 / 500 Other: Urine Color Straw Urine Appearance Hematuria Hematuria Hematuria Clots Clots Clots Comment LARGE CLOTS PRESENT. pt voiding ad nasir in toilet; urine not assessed. pt states urine is not exhibiting clots as bad as previously Voiding Methods Toilet Toilet Laboratory Results WBC 2.70 k/cumm (4.4-10.8) L 10/27/18 06:35 RBC 3.08 m/cumm (4.00-5.20) L 10/27/18 06:35 Hgb 7.9 g/dL (12.0-15.5) L 10/27/18 06:35 Hct 25.6 % (36.0-46.0) L 10/27/18 06:35 MCV 83.1 fL (80-95) 10/27/18 06:35 MCH 25.6 pg (27.0-33.0) L 10/27/18 06:35 MCHC 30.9 g/dL (32.0-36.0) L 10/27/18 06:35 RDW 15.1 % (11.7-14.6) H 10/27/18 06:35 Plt Count 167 x1000/uL (130-400) 10/27/18 06:35 MPV 11.5 fL (8.0-11.0) H 10/27/18 06:35 Immature Gran % 0.3 10/26/18 14:30 Neutrophils % 66.9 10/26/18 14:30 Lymphocytes % 20.2 10/26/18 14:30 Monocytes % 9.7 10/26/18 14:30 Eosinophils % 2.6 10/26/18 14:30 Basophils % 0.3 10/26/18 14:30 Absolute Neutrophils 2.28 k/cumm (1.2-6.7) 10/26/18 14:30 Absolute Lymphocytes 0.69 k/cumm (1.2-3.4) L 10/26/18 14:30 Absolute Monocytes 0.33 k/cumm (0.11-0.7) 10/26/18 14:30 Absolute Eosinophils 0.09 k/cumm (0.0-0.7) 10/26/18 14:30 Absolute Basophils 0.01 k/cumm (0.0-0.2) 10/26/18 14:30 Differential Comment Rbc morph reviewed 10/26/18 14:30 RBC Morphology See below 10/26/18 14:30 Hypochromasia 3+ 10/26/18 14:30 Retic Count 1.2 % (0.5-2.4) 10/27/18 06:35 Sodium 136 mmol/L (136-145) 10/26/18 14:30 Potassium 4.9 mmol/L (3.5-5.1) 10/26/18 14:30 Chloride 102 mmol/L (98-107) 10/26/18 14:30 Carbon Dioxide 24.0 mmol/L (21.0-32.0) 10/26/18 14:30 Anion Gap 10.0 mmol/L (3-11) 10/26/18 14:30 BUN 15 mg/dL (7-18) 10/26/18 14:30 Creatinine 1.18 mg/dL (0.55-1.02) H 10/26/18 14:30 Estimated GFR/1.73 m2 52.13 (mL/min/1.73m2) 10/26/18 14:30 Glucose 70 mg/dL (70-100) 10/26/18 14:30 Calcium 9.1 mg/dL (8.5-10.1) 10/26/18 14:30 Iron Cancelled 10/26/18 14:30 TIBC Cancelled 10/26/18 14:30 Transferrin % Sat Cancelled 10/26/18 14:30 Ferritin 21 ng/mL (8-388) 10/26/18 14:30 Total Bilirubin 0.4 mg/dL (0.2-1.0) 10/26/18 14:30 AST 43 U/L (15-37) H 10/26/18 14:30 ALT 16 U/L (12-78) 10/26/18 14:30 Alkaline Phosphatase 122 U/L (46-116) H 10/26/18 14:30 Total Protein 7.9 g/dL (6.4-8.2) 10/26/18 14:30 Albumin 2.8 g/dL (3.4-5.0) L 10/26/18 14:30 Serum HCG, Qual Negative 10/26/18 14:30 Patient ABO/Rh A Positive 10/26/18 14:30 Antibody Screen Negative 10/26/18 14:30
[2018-10-27] MEDS: traZODone 50 MG TAB PO (21:53)
[2018-10-27 23:28] VITALS: BP 93/61; PULSE 67; RESP 16; TEMP 36; O2SAT 98
[2018-10-28] MEDS: Norethindrone 5 MG TAB PO ×3 (01:35→13:10)
[2018-10-28 03:25] VITALS: BP 82/45; PULSE 63; RESP 18; TEMP 37.1; O2SAT 95
[2018-10-28] MEDS: Methocarbamol 500 MG TAB PO ×2 (03:32→09:19)
[2018-10-28] MEDS: Acetaminophen 500 MG TAB 1000 MG PO (03:33)
[2018-10-28] MEDS: Prenatal Multivitamin w/CA,FE TAB 1 TAB PO (07:26)
[2018-10-28] MEDS: Apixaban 5 MG TAB 10 MG PO (07:26)
[2018-10-28] MEDS: Sulfameth/Trimeth DS TAB 1 TAB PO (07:26)
[2018-10-28] MEDS: Ferrous Gluconate 324 MG TAB PO ×2 (07:26→13:10)
[2018-10-28] MEDS: Ascorbic Acid 500 MG TAB PO (07:26)
[2018-10-28] MEDS: Buprenorphine/Naloxone 8 mg/2 mg FILM 1 EACH SL (07:26)
[2018-10-28] MEDS: Gabapentin 600 MG TAB PO ×2 (07:26→13:10)
[2018-10-28] MEDS: Tranexamic Acid 650 MG TAB 1300 MG PO (07:26)
[2018-10-28 07:30] VITALS: BP 91/56; PULSE 67; RESP 18; TEMP 36.6; O2SAT 99
--- NOTE | 2018-10-28 07:30 | MERGE_ITS ---
*[facility]* * Cardiology* [address] [place] [address] Date of study: 10/28/2018 Transthoracic Echocardiography M-mode, complete 2D, complete spectral Doppler, and color Doppler *STUDY CONCLUSIONS* Impressions: There are no typical features of vegetative endocarditis. However, this diagnosis cannot be excluded on the basis of this transthoracic study. Consider transesophageal echocardiography, if clinically indicated, for superior assessment of valve anatomy. Summary: 1. Left ventricle: The cavity size was normal. Systolic function was normal. The estimated ejection fraction was 60-65%. Diastolic parameters were normal for age. There was no evidence of elevated ventricular filling pressure by Doppler parameters. 2. Mitral valve: There was mild regurgitation. 3. Right ventricle: The cavity size was normal. Wall thickness was normal. Systolic function was normal. 4. Atrial septum: No defect or patent foramen ovale was identified. 5. Pulmonary arteries: Pulmonary systolic pressure was in the range of 30mm Hg to 40mm Hg. 6. Inferior vena cava: The vessel was patent and normal in size. The respirophasic diameter changes were in the normal range (greater than or equal to 50%), consistent with normal central venous pressure. *PATIENT PRESENTATION* Height: 162.6cm (64in ) S/D Pressure: 91 / 56 Weight: 59.9kg (131.7lb ) BSA: 1.65m^2 Test start time: 07:45 AM. Test stop time: 08:40 AM. PERFORMING Unknown PERFORMING [facility] CONSULTING Suzie Taylor Aprn [employer] RT Sulema (R)(CT), [facility] ORDERING Natalia Belcher REFERRING SimiNatalia *PROCEDURE DATA* Procedure information: The patient was identified by two identifiers. This study was interpreted by [facility]. Pertinent images and digital data are archived for permanent storage and are available for subsequent review. No prior study was available for comparison. Study status: Routine. Transthoracic echocardiography. M-mode, complete 2D, complete spectral Doppler, and color Doppler. A Transthoracic Echocardiogram was performed. Scanning was performed from the parasternal, apical, subcostal, and suprasternal notch acoustic windows. Images were obtained using an [id number] cardiac ultrasound machine. Image quality was good. Study completion: The patient tolerated the procedure well. History: PMH: New murmur r/o endocarditis. *CARDIAC ANATOMY* Left ventricle: The cavity size was normal. Systolic function was normal. The estimated ejection fraction was 60-65%. The tissue Doppler parameters were abnormal. Diastolic parameters were normal for age. There was no evidence of elevated ventricular filling pressure by Doppler parameters. Aortic valve: Trileaflet. Doppler: There was no stenosis. There was no regurgitation. VTI ratio of LVOT to aortic valve: 0.85. Valve area (VTI): 2.8cm^2. Indexed valve area (VTI): 1.7cm^2/m^2. Peak velocity ratio of LVOT to aortic valve: 0.73. Valve area (Vmax): 2.4cm^2. Indexed valve area (Vmax): 1.5cm^2/m^2. Mean velocity ratio of LVOT to aortic valve: 0.7. Valve area (Vmean): 2.3cm^2. Indexed valve area (Vmean): 1.4cm^2/m^2. Mean gradient (S): 5.8mm Hg. Peak gradient (S): 11.3mm Hg. Aorta: Aortic root: The aortic root was normal in size. Ascending aorta: The ascending aorta was mildly dilated. Mitral valve: Doppler: There was no evidence for stenosis. There was mild regurgitation. Valve area by pressure half-time: 3.9cm^2. Indexed valve area by pressure half-time: 2.4cm^2/m^2. Peak gradient (D): 3.5mm Hg. Left atrium: The atrium was normal in size. Atrial septum: No defect or patent foramen ovale was identified. Right ventricle: The cavity size was normal. Wall thickness was normal. Systolic function was normal. Pulmonic valve: Doppler: There was no evidence for stenosis. There was no significant regurgitation. Peak gradient (S): 10.1mm Hg. Tricuspid valve: Doppler: There was mild regurgitation. Pulmonary artery: Poorly visualized. Pulmonary systolic pressure was in the range of 30mm Hg to 40mm Hg. Right atrium: The atrium was normal in size. Pericardium: There was no pericardial effusion. Systemic veins: Inferior vena cava: Well visualized. The vessel was patent and normal in size. The respirophasic diameter changes were in the normal range (greater than or equal to 50%), consistent with normal central venous pressure. Baseline ECG: Normal sinus rhythm. Measurements Left ventricle Value Reference LV ID, ED, PLAX 4.9 cm 3.5 - 6.0 LV ID, ES, PLAX 3.7 cm 2.1 - 4.0 LV PW thickness, ED, PLAX 0.9 cm LV end-diastolic volume, 1-p A2C 121 ml LV ejection fraction, 1-p A2C 58 % LV end-diastolic volume, 1-p A4C 92 ml LV ejection fraction, 1-p A4C 60 % LV e', lateral 0.173 m/sec LV E/e', lateral 5 LV e', medial 0.11 m/sec LV E/e', medial 8 LV e', average 0.142 m/sec LV E/e', average 7 Ventricular septum Value Reference IVS thickness, ED, PLAX 0.9 cm LVOT Value Reference LVOT ID, A-P 2.0 cm LVOT area 3.3 cm^2 LVOT peak velocity, S 1.22 m/sec LVOT mean velocity, S 0.79 m/sec LVOT VTI, S 28.9 cm LVOT peak gradient, S 6 mm Hg LVOT mean gradient, S 3 mm Hg Stroke volume (SV), LVOT DP 95 ml Stroke index (SV/bsa), LVOT DP 58 ml/m^2 Aortic valve Value Reference Aortic valve peak velocity, S 1.7 m/sec Aortic valve mean velocity, S 1.1 m/sec Aortic valve VTI, S 34.0 cm Aortic mean gradient, S 5.8 mm Hg Aortic peak gradient, S 11.3 mm Hg VTI ratio, LVOT/AV 0.85 Aortic valve area, VTI 2.8 cm^2 Velocity ratio, peak, LVOT/AV 0.73 Aortic valve area, peak velocity 2.4 cm^2 Velocity ratio, mean, LVOT/AV 0.7 Aortic valve area, mean velocity 2.3 cm^2 Aortic valve area/bsa, mean velocity 1.4 cm^2/m^2 Aorta Value Reference Aortic root ID, ED 2.6 cm Ascending aorta ID, A-P, S 3.3 cm RVOT Value Reference RVOT VTI, S 26.7 cm Left atrium Value Reference LA ID, A-P, ES 3.5 cm LA ID/bsa, A-P 2.2 cm/m^2 <=2.2 LA volume/bsa, ES, 1-p A4C 33 ml/m^2 LA volume, ES, 2-p 49 ml LA volume/bsa, ES, 2-p 30 ml/m^2 LA/aortic root ratio 1.36 Mitral valve Value Reference Mitral E-wave peak velocity 0.94 m/sec Mitral A-wave peak velocity 0.67 m/sec Mitral deceleration time 194 ms 150 - 230 Mitral pressure half-time 56 ms Mitral peak gradient, D 3.5 mm Hg Mitral E/A ratio, peak 1.39 Mitral valve area, PHT, DP 3.9 cm^2 Pulmonary veins Value Reference Pulmonary vein peak velocity, S 0.63 m/sec Pulmonary vein peak velocity, D 0.76 m/sec Pulmonary vein velocity ratio, peak, 0.84 S/D Pulmonary vein A-wave reversal peak 0.41 m/sec velocity Pulmonary vein A-wave reversal 141 ms duration Tricuspid valve Value Reference Tricuspid regurg peak velocity 2.8 m/sec Tricuspid peak RV-RA gradient 31.3 mm Hg Right atrium Value Reference RA area, ES, A4C 15.4 cm^2 8.3 - 19.5 Pulmonic valve Value Reference Pulmonic peak gradient, S 10.1 mm Hg Legend: (L) and (H) donal values outside specified reference range. I have personally reviewed the images and have reviewed and edited the reported findings. Electronically signed by Sourav Mario MD 10/28/2018 14:00
[2018-10-28 07:33] LABS: HCT 26.9 % (36.0-46.0); HGB 8.3 g/dL (12.0-15.5); Mean Corp. HGB Concentration 30.9 g/dL (32.0-36.0); Mean Corpuscular Hemoglobin 25.9 pg (27.0-33.0); Mean Corpuscular Volume 83.8 fL (80-95); Mean Platelet Volume 11.4 fL (8.0-11.0); Platelet Count 207 x1000/uL (130-400); RBC 3.21 m/cumm (4.00-5.20); RBC Distribution Width 15.1 % (11.7-14.6); White Blood Cell Count 4.25 k/cumm (4.4-10.8)
[2018-10-28] MEDS: Docusate Sodium 100 MG CAP PO (08:41)
--- NOTE | 2018-10-28 10:17 | OT.INIE ---
Occupational Therapy Notes Inpatient Occupational Therapy Evaluation Date: 10/28/18 Referring Doctor:Natalia Belcher MD OT Orders: Eval and Treat Precautions: Fall, Standard PATIENT PROFILE/ADMITTING DIAGNOSIS: Pt is a 37 year old female who presented to the ER on 10/26/18 for excessive vaginal bleeding, anticogulated, anemia, acute DVT (L) LE. Past Medical History: Medical History DVT, lower extremity, distal, acute (Acute) Abnormal uterine bleeding (AUB) (Acute) Normocytic hypochromic anemia (Acute) Hx of opioid abuse (Chronic) Surgical History Complete below knee amputation of right lower extremity (Acute) Femoral artery aneurysm, right (Resolved) Social History/Home Situation: Pt states that she lives on the second floor in her sisters home with her 7 year old daughter. She notes that she uses crutches for functional mobility and goes up and down the stair using the butt scoot technique. She states she is totally (I) now and at baseline with dressing, eating, washing, grooming. She does require (A) to go to the grocery store with helping with her bags into the car and she does not drive. Pt states that her 7 year old daughter (A) with carrying her crutches up the stairs at times but otherwise she does everything herself. nursing comes in and (A) with changing her bandage on her (R) LE. Equipment owned/DME: Pt has crutches, uses motorized scooter at grocery store, shower bench, grab bars SUBJECTIVE: Pt was sitting in bed when OT arrived. She was agreeable to OT consult. She notes that she has come a long way and feels that she is very (I) in her ADL/IADL routines. OBJECTIVE: General Observation: Pleasant, redness noted on (L) LE, sores on (L) calf. Mental Status: A&Ox3 Pain: no c/o pain ROM: RUE Shoulder flexion WNL, elbow WNL, wrist is limited into extension, digits contracted at IP joints to 90* flexion, index finger can achieve 110* at IP joint. Unable to fully extend digits. This is chronic and pt has had surgery prior with dense scar tissue noted on volar aspect of IP joints. L UE Shoulder flexion WNL, elbow WNL, digits/hands WNL STRENGTH: RUE Shoulder flexion 4/5, bicep 4-/5, tricep 4+/5, divorce attorney is weak R>L LUE Shoulder flexion 4-/5, bicep 4-/5, tricep 4+/5, divorce attorney is weak R>L FUNCTIONAL MOBILITY/ADLS: Transfers Supine-sit (I) Sit-supine (I) Sit-Stand (I) with use of crutches Stand-sit (I) with use of crutches BATHING Pt denies. Is able to (I) demonstrate increased (I) with Functional aROM to perform bathing routine. DRESSING Sitting in bed Dressing UE NT Dressing LE (I) don and doffing (L) sock GROOMING (I) with putting up hair and hair care in seated position. TOILETING NT EATING (I) in seated position BALANCE: Static sitting Normal Dynamic Sitting Normal SPECIAL TESTS: Daily Activity Limitations [facility]? Daily Activity Inpatient Short Form: Raw score: 23 Standardized score: 51.12 CMS score: 15.86% INFORMED CONSENT/EDUCATION: Pt instructed in purpose of OT Consult and plan of care. ASSESSMENT: Patient is a 37-year-old female referred to occupational therapy services with diagnosis of excessive vaginal bleeding, anticoagulated, anemia, Acute DVT (L) LE. Patient presents with clinical signs and symptoms consistent with dx. Pt was seen for OT consult only. She is totally (I) with ADLs at this time. She can functionally get dressed, washed up, toileting and eating totally (I). She has had HH services for OT/PT in her home and they have recently stopped coming reporting that she was (I). She still has nursing for dressing changes on her (R) LE. OT recommends that pt return home when medically cleared per MD. AMPAC score 23, CMS score 15.86% Patient is assessed as a Low 57482 complexity based on the following: History: See Above Examination: See Above Presentation: Evolving Decision Making: AMPAC score 23, CMS score 15.86% GOALS N/A PLAN OF CARE/TREATMENT PLAN: OT consult only. DISCHARGE RECOMMENDATIONS Home when medically cleared per MD. TREATMENT TIME/MINUTES/CODES 16094, 20 minutes (09:00) [facility] OTR/[facility]
--- NOTE | 2018-10-28 10:29 | OTIE_ITS ---
Occupational Therapy Notes Inpatient Occupational Therapy Evaluation Date: 10/28/18 Referring Doctor:Natalia Belcher MD OT Orders: Eval and Treat Precautions: Fall, Standard PATIENT PROFILE/ADMITTING DIAGNOSIS: Pt is a 37 year old female who presented to the ER on 10/26/18 for excessive vaginal bleeding, anticogulated, anemia, acute DVT (L) LE. Past Medical History: Medical History DVT, lower extremity, distal, acute (Acute) Abnormal uterine bleeding (AUB) (Acute) Normocytic hypochromic anemia (Acute) Hx of opioid abuse (Chronic) Surgical History Complete below knee amputation of right lower extremity (Acute) Femoral artery aneurysm, right (Resolved) Social History/Home Situation: Pt states that she lives on the second floor in her sisters home with her 7 year old daughter. She notes that she uses crutches for functional mobility and goes up and down the stair using the butt scoot technique. She states she is totally (I) now and at baseline with dressing, eating, washing, grooming. She does require (A) to go to the grocery store with helping with her bags into the car and she does not drive. Pt states that her 7 year old daughter (A) with carrying her crutches up the stairs at times but otherwise she does everything herself. nursing comes in and (A) with changing her bandage on her (R) LE. Equipment owned/DME: Pt has crutches, uses motorized scooter at grocery store, shower bench, grab bars SUBJECTIVE: Pt was sitting in bed when OT arrived. She was agreeable to OT consult. She notes that she has come a long way and feels that she is very (I) in her ADL/IADL routines. OBJECTIVE: General Observation: Pleasant, redness noted on (L) LE, sores on (L) calf. Mental Status: A&Ox3 Pain: no c/o pain ROM: RUE Shoulder flexion WNL, elbow WNL, wrist is limited into extension, digits contracted at IP joints to 90* flexion, index finger can achieve 110* at IP joint. Unable to fully extend digits. This is chronic and pt has had surgery prior with dense scar tissue noted on volar aspect of IP joints. L UE Shoulder flexion WNL, elbow WNL, digits/hands WNL STRENGTH: RUE Shoulder flexion 4/5, bicep 4-/5, tricep 4+/5, supervisor salvage is weak R>L LUE Shoulder flexion 4-/5, bicep 4-/5, tricep 4+/5, supervisor salvage is weak R>L FUNCTIONAL MOBILITY/ADLS: Transfers Supine-sit (I) Sit-supine (I) Sit-Stand (I) with use of crutches Stand-sit (I) with use of crutches BATHING Pt denies. Is able to (I) demonstrate increased (I) with Functional aROM to perform bathing routine. DRESSING Sitting in bed Dressing UE NT Dressing LE (I) don and doffing (L) sock GROOMING (I) with putting up hair and hair care in seated position. TOILETING NT EATING (I) in seated position BALANCE: Static sitting Normal Dynamic Sitting Normal SPECIAL TESTS: Daily Activity Limitations [facility]? Daily Activity Inpatient Short Form: Raw score: 23 Standardized score: 51.12 CMS score: 15.86% INFORMED CONSENT/EDUCATION: Pt instructed in purpose of OT Consult and plan of care. ASSESSMENT: Patient is a 37-year-old female referred to occupational therapy services with diagnosis of excessive vaginal bleeding, anticoagulated, anemia, Acute DVT (L) LE. Patient presents with clinical signs and symptoms consistent with dx. Pt was seen for OT consult only. She is totally (I) with ADLs at this time. She can functionally get dressed, washed up, toileting and eating totally (I). She has had HH services for OT/PT in her home and they have recently stopped coming reporting that she was (I). She still has nursing for dressing changes on her (R) LE. OT recommends that pt return home when medically cleared per MD. AMPAC score 23, CMS score 15.86% Patient is assessed as a Low 40450 complexity based on the following: History: See Above Examination: See Above Presentation: Evolving Decision Making: AMPAC score 23, CMS score 15.86% GOALS N/A PLAN OF CARE/TREATMENT PLAN: OT consult only. DISCHARGE RECOMMENDATIONS Home when medically cleared per MD. TREATMENT TIME/MINUTES/CODES 26263, 20 minutes (09:00) [facility] OTR/[facility]
--- NOTE | 2018-10-28 12:30 | W.PM.DS.N ---
Date of service: 10/28/18 Time of Service: 12:31 DS: Diagnosis Discharge Diagnosis (1) Hx of opioid abuse: Status: Chronic (2) Normocytic hypochromic anemia: Status: Acute (3) Abnormal uterine bleeding (AUB): Start date: 10/24/18 Status: Acute Asessment and Plan: Treated with tranexamic acid and norethindrone with decrease in bleeding. Plan to continue the norethindrone 3 times a day for 1 week and then begin daily dosing. We will not continue the tranexamic acid acid upon discharge. (4) Femoral artery aneurysm, right: Status: Resolved (5) Complete below knee amputation of right lower extremity: Status: Acute Asessment and Plan: Patient was evaluated by physical therapy during her inpatient stay. She was also evaluated by occupational therapy. (6) DVT, lower extremity, distal, acute: Status: Acute Asessment and Plan: Discharge patient on same dose of Eliquis. Discharge Plan Disposition Patient Disposition: HOME Condition: Fair Discharge Details Reason For Visit: ABNORMAL UTERINE BLEEDING Admit Date/Time: 10/26/18 15:48 Admit Provider: Catalina Ken Attending Provider: Catalina Ken Primary Care Provider: Suzie Taylor [facility] Course Hospital Course: Patient is a 37-year-old G1, P1 female admitted to the [facility] service with heavy menses and anemia. Patient has a history of chronic anemia and developed heavy flow the same day that she was started on Eliquis for a newly diagnosed DVT. At the time of her initial presentation WBC 2.70 and hemoglobin 8.2 she did not require a transfusion. She was started on Tranexamic Acid twice daily and norethindrone acetate 5 mg every 4 hours [id number]. By hospital day 3 her bleeding has subsided and she was discharged to home with instructions to continue the norethindrone 3 times daily for 1 week and then daily until she had follow-up at the [facility]. Hospitalist consult was obtained and a cardiac echo performed prior to discharge, results are currently pending. Patient will remain on all her medications she was taking prior to admission. Follow-up with Dr. Ken on 11/19/[address] [facility] Home Meds and New Rx's Prescriptions: No Action norethindrone acetate [Aygestin] 5 mg tablet 5 mg PO DAILY 7 Days Qty: 60 RF: 1 Buprenorphine/Naloxone [Suboxone 12 MG-3 MG SL FILM] 1 EACH Film 1 unit PO DAILY RF: 0 methocarbamol 500 mg Tablet 500 mg PO QID PRNRF: 0 gabapentin 600 mg Tablet 600 mg PO TID RF: 0 trazodone 50 mg Tablet 50 mg PO QHS RF: 0 sulfamethoxazole-trimethoprim [Bactrim DS] 800-160 mg Tablet 1 tab PO BID RF: 0 acetaminophen 500 mg Tablet 1,000 mg PO Q6H PRNRF: 0 Therapeutic-M 9 mg iron-400 mcg Tablet 1 tab PO DAILY RF: 0 ferrous gluconate 324 mg (37.5 mg iron) Tablet 324 mg PO DAILY RF: 0 Eliquis 5 mg Tablet 10 mg PO BID RF: 0 Discharge Instructions Additional Instructions: Continue to take the norethindrone 5 mg tablet 3 times a day for 1 week and on 11/04/2018 take the 5 mg tablet once a day until you have your follow-up with Dr. Ken on 11/19/2018. She will have resumption of bleeding please [facility]. Continue to take your iron supplement. Stand Alone Forms: Nursing Discharge Form Activity:: Activity as Tolerated Equipment/Supplies:: Crutches Diet:: As Tolerated Discharge Orders Discharge Orders: Discharge Order (Routine); Ordered 10/28/18 Ordered By: Catalina Ken Exam Const General: ill appearing Nutritional Appearance: thin Orientation: alert, awake and oriented x3 Other: chronically ill-appearing. Neck Neck: normal visual inspection Resp Effort & Inspection: normal respiratory effort General: deferred (Review of I&O shows infrequent peripads changes with minimal blood) Skin General skin exam: erythema (Left lower extremity discolored) and petechiae Lesions: lesion noted (Left lower extremity previous abscess sites) Rashes: no rashes Trauma: other (Did not examine the patient's surgical stump) Wounds: amputation site Hair: normal Nails: normal Extrem General: amputation noted Below the knee: right and edema (Leg) Laterality: left DS: Data Vitals/I&O Vitals and I&O: Vital Signs Temperature 97.9 F 10/28/18 07:30 Temperature Source Tympanic 10/28/18 07:30 Pulse 67 10/28/18 07:30 Pulse Rhythm Regular 10/28/18 09:11 Respiratory Rate 18 10/28/18 07:30 Respiratory Effort Non-Labored 10/28/18 09:11 Respiratory Depth Normal 10/28/18 09:11 Respiratory Pattern Normal 10/28/18 09:11 Blood Pressure 91/56 L 10/28/18 07:30 Blood Pressure Position Sitting 10/26/18 13:32 Pulse Oximetry 99 10/28/18 07:30 Oxygen Delivery Method Room Air 10/28/18 07:30 Oxygen Flow Rate 0 10/28/18 07:30 Pain Level 3 10/28/18 07:30 Comment 10/28/18 03:25 Intake & Output 10/27/18 10/28/18 10/28/18 23:59 11:59 23:59 Intake Total 930 / 1270 300 / 300 Balance 930 / 1270 300 / 300 Intake: Oral 930 / 1270 300 / 300 Other: Urine Appearance Hematuria Clots Comment pt voiding ad nasir in toilet; urine not assessed. pt states urine is not exhibiting clots as bad as previously Voiding Methods Toilet Labs on day of discharge: Labs from last 24 hours 10/28/18 06:40 WBC 4.25 L D RBC 3.21 L Hgb 8.3 L Hct 26.9 L MCV 83.8 MCH 25.9 L MCHC 30.9 L RDW 15.1 H Plt Count 207 MPV 11.4 H PFSH Medical History Hx of hepatitis C (Acute) DVT, lower extremity, distal, acute (Acute) Abnormal uterine bleeding (AUB) (Acute) Normocytic hypochromic anemia (Acute) Hx of opioid abuse (Chronic) Endometriosis (Chronic) Raynaud disease (Chronic) Sciatic pain (Chronic) Surgical History Complete below knee amputation of right lower extremity (Acute) Femoral artery aneurysm, right (Resolved) H/O hand surgery (Chronic) History of transesophageal echocardiography (YG) (Chronic) Retained foreign body (Chronic) Social History Smoking/Tobacco Use Status: Never Alcohol Intake: never Drug use: Current Sobriety Substance use type: former substance user, crack/cocaine, heroin and methamphetamine Details: former cocaine (snorted, smoked, IV) and heroin use (IV), as well as crystal meth (IV). Patient is currently enrolled at [facility], on suboxone Household members: children and other Details: Patient resides at her sister's house with her daughter Number of Children: 1 current occupation: Unemployed Do you feel safe at home: Yes Do you feel safe in your relationship?: No Additional Social history: Ambulates with crutches - 2 falls recently
--- NOTE | 2018-10-28 12:37 | DSE_ITS ---
Date of service: 10/28/18 Time of Service: 12:31 DS: Diagnosis Discharge Diagnosis (1) Hx of opioid abuse: Status: Chronic (2) Normocytic hypochromic anemia: Status: Acute (3) Abnormal uterine bleeding (AUB): Start date: 10/24/18 Status: Acute Asessment and Plan: Treated with tranexamic acid and norethindrone with decrease in bleeding. Plan to continue the norethindrone 3 times a day for 1 week and then begin daily dosing. We will not continue the tranexamic acid aci d upon discharge. (4) Femoral artery aneurysm, right: Status: Resolved (5) Complete below knee amputation of right lower extremity: Status: Acute Asessment and Plan: Patient was evaluated by physical therapy during her inpatient stay. She was also evaluated by occupational therapy. (6) DVT, lower extremity, distal, acute: Status: Acute Asessment and Plan: Discharge patient on same dose of Eliquis. Discharge Plan Disposition Patient Disposition: HOME Condition: Fair Discharge Details Reason For Visit: ABNORMAL UTERINE BLEEDING Admit Date/Time: 10/26/18 15:48 Admit Provider: Catalina Ken Attending Provider: Catailna Ken Primary Care Provider: Suzie Taylor [facility] Course Hospital Course: Patient is a 37-year-old G1, P1 female admitted to the [facility] service with heavy menses and anemia. Patient has a history of chronic anemia and developed heavy flow the same day that she was started on Eliquis for a newly diagnosed DVT. At the time of her initial presentation WBC 2.70 and hemoglobin 8.2 she did not require a transfusion. She was started on Tranexamic Acid twice daily and norethindrone acetate 5 mg every 4 hours [id number]. By hospital day 3 her bleeding has subsided and she was discharged to home with instructions to continue the norethindrone 3 times daily for 1 week and then daily until she had follow-up at the [facility]. Hospitalist consult was obtained and a cardiac echo performed prior to discharge, results are currently pending. Patient will remain on all her medications she was taking prior to admission. Follow-up with Dr. Ken on 11/19/18 at 1540 at the [facility] Home Meds and New Rx's Prescriptions: No Action norethindrone acetate [Aygestin] 5 mg tablet 5 mg PO DAILY 7 Days Qty: 60 RF: 1 Buprenorphine/Naloxone [Suboxone 12 MG-3 MG SL FILM] 1 EACH Film 1 unit PO DAILY RF: 0 methocarbamol 500 mg Tablet 500 mg PO QID PRNRF: 0 gabapentin 600 mg Tablet 600 mg PO TID RF: 0 trazodone 50 mg Tablet 50 mg PO QHS RF: 0 sulfamethoxazole-trimethoprim [Bactrim DS] 800-160 mg Tablet 1 tab PO BID RF: 0 acetaminophen 500 mg Tablet 1,000 mg PO Q6H PRNRF: 0 Therapeutic-M 9 mg iron-400 mcg Tablet 1 tab PO DAILY RF: 0 ferrous gluconate 324 mg (37.5 mg iron) Tablet 324 mg PO DAILY RF: 0 Eliquis 5 mg Tablet 10 mg PO BID RF: 0 Discharge Instructions Additional Instructions: Continue to take the norethindrone 5 mg tablet 3 times a day for 1 week and on 11/04/2018 take the 5 mg tablet once a day until you have your follow-up with Dr. Ken on 11/19/2018. She will have resumption of bleeding please call the [facility]. Continue to take your iron supplement. Stand Alone Forms: Nursing Discharge Form Activity:: Activity as Tolerated Equipment/Supplies:: Crutches Diet:: As Tolerated Discharge Orders Discharge Orders: Discharge Order (Routine); Ordered 10/28/18 Ordered By: Catalina eKn Exam Const General: ill appearing Nutritional Appearance: thin Orientation: alert, awake and oriented x3 Other: chronically ill-appearing. Neck Neck: normal visual inspection Resp Effort & Inspection: normal respiratory effort General: deferred (Review of I&O shows infrequent peripads changes with minimal blood) Skin General skin exam: erythema (Left lower extremity discolored) and petechiae Lesions: lesion noted (Left lower extremity previous abscess sites) Rashes: no rashes Trauma: other (Did not examine the patient's surgical stump) Wounds: amputation site Hair: normal Nails: normal Extrem General: amputation noted Below the knee: right and edema (Leg) Laterality: left DS: Data Vitals/I&O Vitals and I&O: Vital Signs Temperature 97.9 F 10/28/18 07:30 Temperature Source Tympanic 10/28/18 07:30 Pulse 67 10/28/18 07:30 Pulse Rhythm Regular 10/28/18 09:11 Respiratory Rate 18 10/28/18 07:30 Respiratory Effort Non-Labored 10/28/18 09:11 Respiratory Depth Normal 10/28/18 09:11 Respiratory Pattern Normal 10/28/18 09:11 Blood Pressure 91/56 L 10/28/18 07:30 Blood Pressure Position Sitting 10/26/18 13:32 Pulse Oximetry 99 10/28/18 07:30 Oxygen Delivery Method Room Air 10/28/18 07:30 Oxygen Flow Rate 0 10/28/18 07:30 Pain Level 3 10/28/18 07:30 Comment 10/28/18 03:25 Intake & Output 10/27/18 10/28/18 10/28/18 23:59 11:59 23:59 Intake Total 930 / 1270 300 / 300 Balance 930 / 1270 300 / 300 Intake: Oral 930 / 1270 300 / 300 Other: Urine Appearance Hematuria Clots Comment pt voiding ad nasir in toilet; urine not assessed. pt states urine is not exhibiting clots as bad as previously Voiding Methods Toilet Labs on day of discharge: Labs from last 24 hours 10/28/18 06:40 WBC 4.25 L D RBC 3.21 L Hgb 8.3 L Hct 26.9 L MCV 83.8 MCH 25.9 L MCHC 30.9 L RDW 15.1 H Plt Count 207 MPV 11.4 H PFSH Medical History Hx of hepatitis C (Acute) DVT, lower extremity, distal, acute (Acute) Abnormal uterine bleeding (AUB) (Acute) Normocytic hypochromic anemia (Acute) Hx of opioid abuse (Chronic) Endometriosis (Chronic) Raynaud disease (Chronic) Sciatic pain (Chronic) Surgical History Complete below knee amputation of right lower extremity (Acute) Femoral artery aneurysm, right (Resolved) H/O hand surgery (Chronic) History of transesophageal echocardiography (YG) (Chronic) Retained foreign body (Chronic) Social History Smoking/Tobacco Use Status: Never Alcohol Intake: never Drug use: Current Sobriety Substance use type: former substance user, crack/cocaine, heroin and methamphetamine Details: former cocaine (snorted, smoked, IV) and heroin use (IV), as well as crystal meth (IV). Patient is currently enrolled at [facility], on suboxone Household members: children and other Details: Patient resides at her sister's house with her daughter Number of Children: 1 current occupation: Unemployed Do you feel safe at home: Yes Do you feel safe in your relationship?: No Additional Social history: Ambulates with crutches - 2 falls recently
--- NOTE | 2018-10-28 19:00 | PT.INIE ---
Date of service: 10/28/18 Time of Service: 10:22 PT Notes Inpatient Physical Therapy Evaluation Date: 10/28/2018 Referring Doctor: Natalia Belcher MD PT Orders: PT CONSULT: Eval/treat Precautions: Fall. Standard. Patient Profile/Admitting Diagnosis: Patient is a 37-year-old female with medical history significant for IV drug use status post right BKA and status post DVT of left lower extremity now on Eliquis who presented to the ED on 10/26/2018 with chief complaints of heavy vaginal bleeding and anemia. Patient was diagnosed with normocytic hypochromic anemia and abnormal uterine bleed. Referral for skilled physical therapy services was made to address safety issues involving mobility performance in preparation for going home. PMHX: Medical History DVT, lower extremity, distal, acute (Acute) Abnormal uterine bleeding (AUB) (Acute) Normocytic hypochromic anemia (Acute) Hx of opioid abuse (Chronic) Surgical History Complete below knee amputation of right lower extremity (Acute) Femoral artery aneurysm, right (Resolved) Social History/Home Situation: Patient lives with her 7-year-old daughter on the second floor of patient's [id number]'s and sister's house. She is independent with all level surface indoor/outdoor using bilateral axillary crutches. She notes that she uses crutches for functional mobility and goes up and down the stair using the butt scoot technique. She receives home health nursing with wound care/residual limb care Current Functional Limitations: Requires use of assistive ambulatory device for all indoor and outdoor ambulation Equipment owned/DME: Bilateral axillary crutches, uses motorized scooter at grocery store, shower bench, grab bars Subjective: Patient looks forward to going home today per MD's clearance. She states that she is able to manage well at home using her bilateral axillary crutches. She denies any headache, chest pain, and dizziness throughout PT consult today. Objective: General Observation: Patient seen resting in bed upon arrival of this PT. Wound dressing covering right BKA. Hip and knee flexion contracture on the right apparent. Mental Status: Alert and oriented x4 Pain: 5/10 phantom pain on the right side ROM: Right Upper Extremity: Shoulder Flexion WFL. Shoulder abduction WFL. Elbow flexion WFL. Wrist flexion WFL. Functional opening and closing of hand WFL. Left Upper Extremity: Shoulder Flexion WFL. Shoulder abduction WFL. Elbow flexion WFL. Wrist flexion WFL. Functional opening and closing of hand WFL. Right Lower Extremity: Hip flexion WFL. Hip abduction WFL. Hip extension -10 degrees knee flexion WFL. Knee extension -45 degrees. Ankle dorsiflexion N/A. Ankle plantarflexion N/A. Left Lower Extremity: Hip flexion WFL. Hip abduction WFL. Knee flexion WFL. Ankle dorsiflexion WFL. Ankle plantarflexion WFL. Strength: Right Upper Extremity: Shoulder flexors 5/5. Shoulder abductors 5/5. Elbow flexors 5/5. Elbow extensors 5/5. Shellacker strong. Left Upper Extremity: Shoulder flexors 5/5. Shoulder abductors 5/5. Elbow flexors 5/5. Elbow extensors 5/5. Shellacker strong. Right Lower Extremity: Hip flexors 4-/5. Hip abductors 4-/5. Knee flexors 3-/5. Knee extensors 3-/5. Ankle dorsiflexion N/A. Ankle plantarflexion N/A. Left Lower Extremity:Hip flexors 4/5. Hip abductors 4/5. Knee flexors 4/5. Knee extensors 4/5. Ankle dorsiflexors 4/5. Ankle plantarflexors 4/5. Bed Mobility/Transfers: Rolling I Supine to sit I Sit to supine I Sit to stand I Stand to sit I Bed to chair I Chair to bed I Gait: Patient was able to tolerate level surface ambulation of 120 feet using bilateral axillary crutches using three-point to gait pattern requiring only supervision assist for directional changes and walker placement during turning for overall safety. Balance: Static Sitting: Normal Dynamic Sitting: Normal Static Standing: Fair Dynamic Standing: Fair Special Tests: Mobility Limitations Standardized Measure [facility] 6 clicks Basic Mobility Inpatient Short Form: Raw Score: 22 CMS Score: 21% deficit Informed Consent/Education: Patient instructed in purpose of PT consult. Assessment: Patient presents with clinical signs and symptoms consistent with current/admitting diagnoses that have resulted to mobility limitations, gait instability, generalized weakness, and impairment of motor control as demonstrated by the following impairment level findings: 1. Decreased strength to R LE major muscle groups 2. Impaired standing balance 3. Impaired activity tolerance 4. Limitation of joint range of motion in right hip and knee Impairments are contributing to the following functional limitations: 1. Inability to safely ambulate without assistive device and physical assistance 2. Increase completion time for mobility ADL performance 3. Increased fall risk 4. Inability to negotiate steps alone safely Patient is assessed as a 55437 moderate complexity based on the following: History: 37-year-old female with diagnosis of normocytic, hypochromic anemia and abnormal uterine bleeding with medical with comorbidities as listed above Examination: Demonstrable impairment in strength, balance, and range of motion with underlying impairments and functional limitations as documented above Presentation: Stable Decision Makin moderate DISCHARGE RECOMMENDATIONS: Patient goes home today at her baseline level of independent with all aspects of mobility ADL performance using bilateral axillary crutche. May consider home health physical therapy in order to assess overall safety at home. TREATMENT CODE/TIME: [id number] x 27 minutes beginning at 10:22 AM. Thank you very much for this referral. Ana María Luther PT, DPT, CLT [facility]
[2018-10-29 11:55] LABS: HIV-1/2 Ag & Ab Screen Negative (NEGAT)
--- NOTE | 2018-11-04 17:41 | IN_ITS ---
Date of service: 10/28/18 Time of Service: 10:22 PT Notes Inpatient Physical Therapy Evaluation Date: 10/28/2018 Referring Doctor: Natalia Belcher MD PT Orders: PT CONSULT: Eval/treat Precautions: Fall. Standard. Patient Profile/Admitting Diagnosis: Patient is a 37-year-old female with medical history significant for IV drug use status post right BKA and status post DVT of left lower extremity now on Eliquis who presented to the ED on 10/26/2018 with chief complaints of heavy vaginal bleeding and anemia. Patient was diagnosed with normocytic hypochromic anemia and abnormal uterine bleed. Referral for skilled physical therapy services was made to address safety issues involving mobility performance in preparation for going home. PMHX: Medical History DVT, lower extremity, distal, acute (Acute) Abnormal uterine bleeding (AUB) (Acute) Normocytic hypochromic anemia (Acute) Hx of opioid abuse (Chronic) Surgical History Complete below knee amputation of right lower extremity (Acute) Femoral artery aneurysm, right (Resolved) Social History/Home Situation: Patient lives with her 7-year-old daughter on the second floor of patient's [id number]-ge-dec's and sister's house. She is independent with all level surface indoor/outdoor using bilateral axillary crutches. She notes that she uses crutches for functional mobility and goes up and down the stair using the butt scoot technique. She receives home health nursing with wound care/residual limb care Current Functional Limitations: Requires use of assistive ambulatory device for all indoor and outdoor ambulation Equipment owned/DME: Bilateral axillary crutches, uses motorized scooter at grocery store, shower bench, grab bars Subjective: Patient looks forward to going home today per MD's clearance. She states that she is able to manage well at home using her bilateral axillary crutches. She denies any headache, chest pain, and dizziness throughout PT consult today. Objective: General Observation: Patient seen resting in bed upon arrival of this PT. Wound dressing covering right BKA. Hip and knee flexion contracture on the right apparent. Mental Status: Alert and oriented x4 Pain: 5/10 phantom pain on the right side ROM: Right Upper Extremity: Shoulder Flexion WFL. Shoulder abduction WFL. Elbow flexion WFL. Wrist flexion WFL. Functional opening and closing of hand WFL. Left Upper Extremity: Shoulder Flexion WFL. Shoulder abduction WFL. Elbow flexion WFL. Wrist flexion WFL. Functional opening and closing of hand WFL. Right Lower Extremity: Hip flexion WFL. Hip abduction WFL. Hip extension -10 degrees knee flexion WFL. Knee extension -45 degrees. Ankle dorsiflexion N/A. Ankle plantarflexion N/A. Left Lower Extremity: Hip flexion WFL. Hip abduction WFL. Knee flexion WFL. Ankle dorsiflexion WFL. Ankle plantarflexion WFL. Strength: Right Upper Extremity: Shoulder flexors 5/5. Shoulder abductors 5/5. Elbow flexors 5/5. Elbow extensors 5/5. Lubrication Equipment Servicer strong. Left Upper Extremity: Shoulder flexors 5/5. Shoulder abductors 5/5. Elbow flexors 5/5. Elbow extensors 5/5. Lubrication Equipment Servicer strong. Right Lower Extremity: Hip flexors 4-/5. Hip abductors 4-/5. Knee flexors 3-/5. Knee extensors 3-/5. Ankle dorsiflexion N/A. Ankle plantarflexion N/A. Left Lower Extremity:Hip flexors 4/5. Hip abductors 4/5. Knee flexors 4/5. Knee extensors 4/5. Ankle dorsiflexors 4/5. Ankle plantarflexors 4/5. Bed Mobility/Transfers: Rolling I Supine to sit I Sit to supine I Sit to stand I Stand to sit I Bed to chair I Chair to bed I Gait: Patient was able to tolerate level surface ambulation of 120 feet using bilateral axillary crutches using three-point to gait pattern requiring only supervision assist for directional changes and walker placement during turning for overall safety. Balance: Static Sitting: Normal Dynamic Sitting: Normal Static Standing: Fair Dynamic Standing: Fair Special Tests: Mobility Limitations Standardized Measure [facility] 6 clicks Basic Mobility Inpatient Short Form: Raw Score: 22 CMS Score: 21% deficit Informed Consent/Education: Patient instructed in purpose of PT consult. Assessment: Patient presents with clinical signs and symptoms consistent with current/admitting diagnoses that have resulted to mobility limitations, gait instability, generalized weakness, and impairment of motor control as demonstrated by the following impairment level findings: 1. Decreased strength to R LE major muscle groups 2. Impaired standing balance 3. Impaired activity tolerance 4. Limitation of joint range of motion in right hip and knee Impairments are contributing to the following functional limitations: 1. Inability to safely ambulate without assistive device and physical assistance 2. Increase completion time for mobility ADL performance 3. Increased fall risk 4. Inability to negotiate steps alone safely Patient is assessed as a 88255 moderate complexity based on the following: History: 37-year-old female with diagnosis of normocytic, hypochromic anemia and abnormal uterine bleeding with medical with comorbidities as listed above Examination: Demonstrable impairment in strength, balance, and range of motion with underlying impairments and functional limitations as documented above Presentation: Stable Decision Makin moderate DISCHARGE RECOMMENDATIONS: Patient goes home today at her baseline level of independent with all aspects of mobility ADL performance using bilateral axillary crutche. May consider home health physical therapy in order to assess overall safety at home. TREATMENT CODE/TIME: 15563 x 27 minutes beginning at 10:22 AM. Thank you very much for this referral. Ana María Luther PT, DPT, CLT [facility]
== END 2018-10-28 14:09 | disposition home or self-care (01) ==
LOC: ER 16:22 → MS 16:46
PROVIDERS: Admitting Provider Obstetrics & Gynecology Gynecology; Emergency Provider Physician Assistant; PCP Nurse Practitioner; Visit Provider Obstetrics & Gynecology Gynecology
DX: N93.8 Other specified abnormal uterine and vaginal bleeding (principal); N92.0 Excessive and frequent menstruation with regular cycle; D50.9 Iron deficiency anemia, unspecified; M86.662 Other chronic osteomyelitis, left tibia and fibula; Z89.512 Acquired absence of left leg below knee; I82.4Z2 Acute embolism and thrombosis of unspecified deep veins of left distal lower extremity; Z79.01 Long term (current) use of anticoagulants; T45.515A Adverse effect of anticoagulants, initial encounter; I95.9 Hypotension, unspecified; R23.3 Spontaneous ecchymoses; L53.9 Erythematous condition, unspecified; F19.11 Other psychoactive substance abuse, in remission
CPT/HCPCS: 36415; 80053; 85027; 86850; 86900; 86901; 87389; 97163; 97165; 99221; 99231; 99238; 99254; 99285; 82728; 83540; 83550; 84703; 85025; 85045; 93306; 99222; 99284; G0378

== ENCOUNTER 2018-11-28 17:44 | Outpatient (REF) | payer MEDICAID, SELFPAY | END 2018-11-28 18:04 | LOC: NCHCN 17:44 | PROVIDERS: PCP Nurse Practitioner; Visit Provider Family Medicine | DX: T87.43 Infection of amputation stump, right lower extremity (principal) | CPT/HCPCS: 87077; 87070; 87186; 87205 ==

== ENCOUNTER 2018-12-17 09:25 | Emergency (ER) | payer MEDICAID, SELFPAY ==
[2018-12-17 09:31] VITALS: BP 127/80; PULSE 81; RESP 16; TEMP 36.6; O2SAT 99
--- NOTE | 2018-12-17 10:03 | W.ED.GENAD ---
Discharge Plan Disposition Patient Disposition: HOME Condition: Stable Discharge Details Chief Complaint: Cellulitis Clinical Impression: Complete below knee amputation of right lower extremity, Cellulitis, Tinea pedis of left foot Primary Care Provider: Ratna Olivas ED Provider: Sagar Waller Home Meds and New Rx's Prescriptions: New cephalexin [Keflex] 500 mg capsule 500 mg PO QID 7 Days Qty: 28 RF: 0 sulfamethoxazole-trimethoprim [Bactrim DS] 800-160 mg tablet 1 tab PO BID 7 Days Qty: 14 RF: 0 clotrimazole-betameth dip-zinc 1-0.05-20 % combo pack See Rx Instructions .ROUTE .COMPLEX Qty: 135 RF: 0 Continued Buprenorphine/Naloxone [Suboxone 12 MG-3 MG SL FILM] 1 EACH Film 1 unit PO DAILY RF: 0 methocarbamol 500 mg Tablet 500 mg PO QID PRNRF: 0 gabapentin 600 mg Tablet 600 mg PO TID RF: 0 trazodone 50 mg Tablet 50 mg PO QHS RF: 0 acetaminophen 500 mg Tablet 1,000 mg PO Q6H PRNRF: 0 Therapeutic-M 9 mg iron-400 mcg Tablet 1 tab PO DAILY RF: 0 Eliquis 5 mg Tablet 10 mg PO BID RF: 0 ferrous gluconate 324 mg (37.5 mg iron) Tablet 324 mg PO TID Qty: 90 RF: 0 Discharge Instructions Instructions: Tinea Pedis (ED), Cellulitis (ED) Additional Instructions: Please take medication as prescribed and apply ointment to left lower extremity and toe. It is important that you follow-up with your primary care provider preferably the next 48 hours for reassessment and to ensure that your symptoms are improving. Return immediately to the emergency department for any significant worsening of symptoms. Referrals: Ratna Olivas MD [Primary Care Provider] - 2 days Discharge Data Discharge Date/Time-TO BE ENTERED AT DEPARTURE: 12/17/18 12:15 Medical Decision Making Patient presenting to the emergency department for chief complaint of right lower extremity infection and possible infection of left great toe. Patient states that she has been having ongoing fungal infection of her left toes that she has been trying alsp-akb-[id number] ointment that seem to be helping but over the last week has noted some worsening of symptoms. Patient also reports that her home health nurse noted slightly increasing erythema surrounding the wound site from patient's right below the knee amputation and informed patient that she should be evaluated for possible infection. Patient denies any fever chills, abdominal pain, or other symptoms. Physical exam shows erythema surrounding chronic wound site from amputation. There is some well demarcated borders to this erythema that makes me question of possible dermatitis from tape. Given patient's history though plan to perform radiological imaging to evaluate for any osteomyelitis but otherwise given that erythema is not significant or extensive, patient is otherwise well in appearance, I do not feel that labs or IV medications are needed but plan to start p.o. antibiotics. Evaluation of left lower toe does show signs consistent with tinea and fissures. There is a chance of possible coinfection but again plan to start antibiotics for cellulitis anyway and increase strength of chronic clotrimazole ointment. After review of radiological imaging and speak with radiologist does show some demineralization of the stump with recommendation to speak with orthopedist. Talk with Dr. Hanna in regards to patient's care being stated he had discussed patient's case with orthopedist at [facility] where surgery had been performed. Upon discussion of patient's case we agreed upon patient being trialed on outpatient antibiotics given that she is otherwise stable and afebrile. Patient started on Keflex and Bactrim and initial doses were given in the emergency department. Patient was placed upon clotrimazole steroid cream for tinea of left foot. Patient placed upon follow-up list to follow-up with primary care provider preferably next 48 hours for reassessment of wound. Patient does state that she has follow-up appointment she believes next week with her orthopedic surgeon at [facility]. Patient was informed to call her orthopedist to see if she needs to be seen any sooner by specialty. HPI General Mode of arrival: ambulatory. Date/Time Provider Initiated Documentation: 12/17/18 09:32. Limitations to Documentation: no limitations. Information obtained by: patient and RN notes reviewed. History of Present Illness 38 year old F presents to the emergency department with the chief complaint of Right lower extremity infection, described as moderate and similar to prior episodes, with intensity rated at 1. Quality is described as aching, and is localized to the right and lower extremity. Patient started experiencing this week(s) (1) and it has been constant. No exacerbating factors reported . Patient notes no other symptoms.. Related Data Home Medications Medication Instructions Recorded Confirmed Buprenorphine/Naloxone [Suboxone 1 unit PO DAILY 07/17/17 12/17/18 12 MG-3 MG SL FILM] Eliquis 10 mg PO BID 10/26/18 12/17/18 Therapeutic-M 1 tab PO DAILY 10/26/18 12/17/18 acetaminophen 1,000 mg PO Q6H PRN 10/26/18 12/17/18 gabapentin 600 mg PO TID 10/26/18 12/17/18 methocarbamol 500 mg PO QID PRN 10/26/18 12/17/18 trazodone 50 mg PO QHS 10/26/18 12/17/18 ferrous gluconate 324 mg PO TID #90 tab 10/28/18 12/17/18 cephalexin [Keflex] 500 mg PO QID 7 Days #28 cap 12/17/18 clotrimazole-betameth dip-zinc See Rx Instructions .ROUTE 12/17/18 .COMPLEX #135 gm sulfamethoxazole-trimethoprim 1 tab PO BID 7 Days #14 tab 12/17/18 [Bactrim DS] Previous Rx's Medication Instructions Recorded ferrous gluconate 324 mg PO TID #90 tab 10/28/18 cephalexin [Keflex] 500 mg PO QID 7 Days #28 cap 12/17/18 clotrimazole-betameth dip-zinc See Rx Instructions .ROUTE 12/17/18 .COMPLEX #135 gm sulfamethoxazole-trimethoprim 1 tab PO BID 7 Days #14 tab 12/17/18 [Bactrim DS] Allergies Allergy/AdvReac Type Severity Reaction Status Date / Time No Known Allergies Allergy Unverified 10/26/18 13:38 General Stated Complaint: Cellulitis LEIF: 3 Review of Systems Constitutional Denies chills and Denies fever(s) Gastrointestinal Denies abdominal pain Integumentary/Breasts Reports as per HPI, Reports erythema, Reports rash (left great toe) and Reports wounds ON LICENSE OF [facility] Medical History Abnormal uterine bleeding (AUB) (Acute) DVT, lower extremity, distal, acute (Acute) Endometriosis (Chronic) Hx of hepatitis C (Acute) Hx of opioid abuse (Chronic) Normocytic hypochromic anemia (Acute) Raynaud disease (Chronic) Sciatic pain (Chronic) Surgical History Complete below knee amputation of right lower extremity (Acute) Femoral artery aneurysm, right (Resolved) H/O hand surgery (Chronic) History of transesophageal echocardiography (YG) (Chronic) Retained foreign body (Chronic) Family History Father Diabetes Paternal Grandfather Diabetes Paternal Aunt Diabetes Maternal Grandmother Breast cancer Maternal Aunt Multiple sclerosis Social History Smoking/Tobacco Use Status: Never Alcohol Intake: never Drug use: Current Sobriety Substance use type: former substance user, crack/cocaine, heroin and methamphetamine Details: former cocaine (snorted, smoked, IV) and heroin use (IV), as well as crystal meth (IV). Patient is currently enrolled at [facility], on suboxone Household members: children and other Details: Patient resides at her sister's house with her daughter Number of Children: 1 current occupation: Unemployed Do you feel safe at home: Yes Do you feel safe in your relationship?: No Additional Social history: Ambulates with crutches - 2 falls recently Exam Const General: cooperative, no acute distress and not ill appearing Orientation: alert, awake and oriented x3 Resp Effort & Inspection: normal respiratory effort, able to speak in complete sentences and no respiratory distress Cardio Rate: regular rate Rhythm: regular rhythm Skin General skin exam: no rashes or lesions noted Extrem General: full ROM, normal capillary refill, amputation noted Below the knee: right and no edema Right lower extremity: knee Details: normal to inspection and normal ROM; no tenderness and no swelling and lower leg Details: erythema (Surrounding distal wound of the amputation site) and tenderness (Surrounding wound of amputation site) Left lower extremity: foot Details: normal capillary refill, abnormal to inspection Details: erythematous (Noted to dorsal aspect of the great toe and distal foot with fissure in between great and second toe), tenderness Location: of the great toe and toes with normal ROM Course Vital Signs Temperature 36.6 C 12/17/18 09:31 Pulse 81 12/17/18 09:31 Respiratory Rate 16 12/17/18 09:31 Blood Pressure 127/80 12/17/18 09:31 Pulse Oximetry 99 12/17/18 09:31 Temperature 36.6 C 12/17/18 09:31 Temperature Source Tympanic 12/17/18 09:31 Pulse 81 12/17/18 09:31 Respiratory Rate 16 12/17/18 09:31 Respiratory Effort Non-Labored 12/17/18 09:36 Blood Pressure 127/80 12/17/18 09:31 Blood Pressure Position Supine 12/17/18 09:31 Pulse Oximetry 99 12/17/18 09:31 Oxygen Delivery Method Room Air 12/17/18 09:31 Oxygen Flow Rate 0 12/17/18 09:31 Pain Level 1 12/17/18 09:31
[2018-12-17] MEDS: Sulfameth/Trimeth DS TAB 1 TAB PO (10:28)
[2018-12-17] MEDS: Cephalexin 500 MG CAP PO (10:28)
--- NOTE | 2018-12-17 10:40 | DI.RAD_ITS ---
SYMPTOM/DIAGNOSIS: EVALUATION OF AMPUTATION/POSSIBLE INFECTION RIGHT KNEE: 12/17 Two views were obtained. Note is made of a below the knee amputation. There is diffuse demineralization of the bones. The distal-most portions of the tibia show multiple cortical irregularities some of which appear poorly defined. The possibility of osteomyelitis is raised. Clinical correlation requested. Additional evaluation with MRI or bone scan may be considered if there is clinical uncertainty regarding this process. No previous films available for comparison.
[2018-12-17 11:26] VITALS: BP 119/89; PULSE 66; RESP 16; TEMP 36.7; O2SAT 99
[2018-12-17 12:19] VITALS: BP 119/89; PULSE 66; RESP 16; TEMP 36.7; O2SAT 99
--- NOTE | 2018-12-17 18:29 | NUR.NOTE ---
Nursing Note: Referral faxed to PCP for follow up in 48hrs, Louise Daley.
== END 2018-12-17 12:15 | disposition home or self-care (01) ==
PROVIDERS: Emergency Provider Nurse Practitioner Family; PCP Family Medicine
DX: L03.115 Cellulitis of right lower limb (principal); T81.40XA Infection following a procedure, unspecified, initial encounter; B35.3 Tinea pedis
CPT/HCPCS: 81025; 99283; 73590

== ENCOUNTER 2018-12-18 14:02 | Outpatient (REF) | payer MEDICAID, SELFPAY | END 2018-12-18 14:22 | LOC: NCHCN 14:02 | PROVIDERS: PCP Family Medicine; Visit Provider Family Medicine | DX: T87.43 Infection of amputation stump, right lower extremity (principal) | CPT/HCPCS: 87077; 87070; 87186; 87205 ==

== ENCOUNTER 2018-12-28 02:13 | Outpatient (RCR) | payer MEDICAID, SELFPAY | END 2018-12-28 23:59 | disposition home or self-care (01) | LOC: INF 02:13 | PROVIDERS: PCP Family Medicine; Visit Provider Family Medicine | DX: R69 Illness, unspecified (principal) | CPT/HCPCS: 80053; 85025; 86140 ==

== ENCOUNTER 2019-01-08 18:27 | Outpatient (REF) | payer MEDICAID, SELFPAY ==
[2019-01-15 15:41] LABS: Benzoylecgonine 12630 ng/mL (Cutoff: 50); Cocaine 706 ng/mL (Cutoff: 50); Cocaine Interpretation Positive.
== END 2019-01-08 18:47 ==
LOC: NCHCN 18:27
PROVIDERS: PCP Family Medicine; Visit Provider Family Medicine
DX: F11.20 Opioid dependence, uncomplicated (principal)
CPT/HCPCS: 80353

== ENCOUNTER 2019-01-15 19:53 | Outpatient (REF) | payer MEDICAID, SELFPAY ==
[2019-01-22 12:52] LABS: Benzoylecgonine 199 ng/mL (Cutoff: 50); Cocaine Negative ng/mL (Cutoff: 50); Cocaine Interpretation Positive.
== END 2019-01-15 20:13 ==
LOC: NCHCN 19:53
PROVIDERS: PCP Family Medicine; Visit Provider Family Medicine
DX: F11.20 Opioid dependence, uncomplicated (principal)
CPT/HCPCS: 80353

== ENCOUNTER 2019-01-24 08:44 | Inpatient (IN) | payer MEDICAID, SELFPAY ==
[2019-01-24] VITALS (14 sets, daily range): BP systolic 94–132; BP diastolic 60–92; PULSE 76–98; RESP 16–20; TEMP 36.6–37.5; O2SAT 98–100
--- NOTE | 2019-01-24 09:20 | DI.US_ITS ---
EXAM: US LOWER EXTREMITY VENOUS LT CLINICAL HISTORY: Left lower leg swelling, cellulitis, r/o DVT. TECHNIQUE: Ultrasound performed using standard protocol. FINDINGS: Duplex venous ultrasound left lower extremity was performed according to the usual protocol. There i s an area of contour abnormality with linear echoes in the femoral vein which shows fairly normal col or flow. The findings are consistent with old thrombus. No evidence of acute thrombus in the region surveyed. 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 No evidence of acute thrombus. No evidence of occ lusion.
--- NOTE | 2019-01-24 09:26 | ED.GENADUL_ITS ---
Discharge Plan Disposition Patient Disposition: [facility] INPATIENT Condition: Fair Discharge Details Chief Complaint: Cellulitis Clinical Impression: Cellulitis Admit Date/Time: 01/24/19 14:18 Admit Provider: Natalia Belcher Attending Provider: Natalia Belcher Primary Care Provider: Ratna Olivas ED Provider: Maggie Armenta Discharge Data Discharge Date/Time-TO BE ENTERED AT DEPARTURE: 01/24/19 15:56 Medical Decision Making This is a 38-year-old woman who presents with concern for left lower leg swelling. Patient is a right below the knee amputation patient. Attempted was done in [place] in August of this year. Patient has persistent infection in the stump of the amputated leg for which she is received 5 weeks of cefepime twice daily. Patient has a central line in place at this time. Patient today presents to the ER for concern of the contralateral leg being infected. Patient presents with erythema, swelling and pain to the left lower leg specifically on exam she has diffuse erythema, warmth and swelling to the left foot ankle and does have proximal leg pretibial cellulitis which is well demarcated with associated lymphangitis proximally not beyond the knee. Patient has an ulcerative wound to the great toe and an early pustule to the plantar aspect of the midfoot. Patient did have an evaluation with podiatry proximally 1 week ago, was evaluated for possible gout, testing negative. I am concerned for possible osteomyelitis. Patient did have an x-ray with her commercial collections specialist 1 week ago which did not reveal osteomyelitis therefore I will do a CT to evaluate for possible osteo-as well as an ultrasound to rule out DVT. Labs will be obtained. On exam patient does have a murmur I am concerned for possible bacterial vegetation of her heart blood cultures were drawn. Given patient development of cellulitis while taking cefepime for the last 5 weeks vancomycin was ordered. I did speak with Dr. Lawson of [facility] who does think vancomycin is appropriate treatment at this time no specific contraindications in Given patient's status I am unable to perform a CT. MRI was ordered of the foot to rule out osteomyelitis. Patient does have a retained needle in the left groin. He did speak with the radiologist Dr. Aguilar who does recommend pursuing MRI of the foot as this is the most ideal study and retained needle and groin is not in a contraindication. Unfortunately the patient did experience some burning pain in her left groin when attempted to MRI therefore the study was discontinued. I did speak with the hospitalist who will accept this patient's admission for cellulitis. Patient agrees with plan of care at this time. HPI General Date/Time Provider Initiated Documentation: 01/24/19 08:46 . HPI Narrative: This is a 38-year-old patient who presents for concern of left lower leg cellulitis. Patient reports increasing redness and swelling over the last week. Patient reports calf swelling and pain associated with significant foot swelling and pain. Patient reports dorsal foot noted. Patient reports a nonhealing wound on the dorsal aspect of the great toe on the left. Patient has a complicated medical history specifically she is a former IV drug user who as a result of her IV drug use has had a right BKA due to osteomyelitis. Patient for the last 6 weeks has been treated with cefepime IV twice daily through the central line which is currently in place after having persistent infection status post a BKA. Patient is compliant with her cefepime. Patient is also on Eliquis for history of blood clots in the lower extremity. Patient reports compliance with her Eliquis. Patient denies fever, chills, nausea, vomiting. Denies abdominal pain. Eating and drinking without difficulty. Patient did see her commercial collections specialist Dr. Tomlin 1 week ago who tested her for possible gout, which reportedly was negative. Patient uses crutches for ambulation. Related Data Home Medications Medication Instructions Recorded Confirmed Buprenorphine/Naloxone [Suboxone 1 unit PO DAILY 07/17/17 01/24/19 12 MG-3 MG SL FILM] Eliquis 10 mg PO BID 10/26/18 01/24/19 gabapentin 600 mg PO TID 10/26/18 01/24/19 methocarbamol 500 mg PO QID PRN 10/26/18 01/24/19 trazodone 50 mg PO QHS 10/26/18 01/24/19 clotrimazole-betameth dip-zinc See Rx Instructions .ROUTE 12/17/18 01/24/19 .COMPLEX #135 gm cefepime 2 g BID 01/24/19 01/24/19 ibuprofen 600 mg PO PRN PRN 01/24/19 01/24/19 Previous Rx's Medication Instructions Recorded clotrimazole-betameth dip-zinc See Rx Instructions .ROUTE 12/17/18 .COMPLEX #135 gm Allergies Allergy/AdvReac Type Severity Reaction Status Date / Time No Known Allergies Allergy Unverified 10/26/18 13:38 General Stated Complaint: Cellulitis LEIF: 3 Review of Systems Constitutional Constitutional: Denies chills, Denies fever(s), Denies lethargy, Denies night sweats and Denies poor appetite Cardiovascular Cardiovascular: Denies chest pain, Denies palpitations and Denies dyspnea Respiratory Respiratory: Denies cough and Denies dyspnea Integumentary/Breasts Skin/Breast: Reports erythema, Reports skin swelling and Reports wounds Neurologic Neurologic: Denies focal weakness and Denies paresthesias Endocrine Endocrine: Denies palpitations [facility] Medical History Abnormal uterine bleeding (AUB) (Acute) On. Set 10/24/2018 heavy flow coinciding with initiation of Eliquis DVT, lower extremity, distal, acute (Acute) 10/24 2018 left lower extremity. Rx with Eliquis. Endometriosis (Chronic) Hx of hepatitis C (Acute) AB +. No viral load. Hx of opioid abuse (Chronic) Currently in treatment at [facility] Suboxone. Normocytic hypochromic anemia (Acute) 10/26/2018 hemoglobin 8.2 MCV 83 Raynaud disease (Chronic) Sciatic pain (Chronic) Surgical History Complete below knee amputation of right lower extremity (Acute) 2018. 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 [facility]. 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 H/O hand surgery (Chronic) contracted post-op History of transesophageal echocardiography (YG) (Chronic) negative Retained foreign body (Chronic) L groin, s/p unsuccessful exploratory surgery Family History Father Diabetes Paternal Grandfather Diabetes Paternal Aunt Diabetes Maternal Grandmother Breast cancer Maternal Aunt Multiple sclerosis Social History Smoking/Tobacco Use Status: Never Alcohol Intake: never Drug use: Current Sobriety Substance use type: former substance user, crack/cocaine, heroin and methamphetamine Details: former cocaine (snorted, smoked, IV) and heroin use (IV), as well as crystal meth (IV). Patient is currently enrolled at [facility]), on suboxone Household members: children and other Details: Patient resides at her sister's house with her daughter Number of Children: 1 current occupation: Unemployed Do you feel safe at home: Yes Do you feel safe in your relationship?: Yes Additional Social history: Ambulates with crutches - 2 falls recently Exam Narrative Exam Narrative: CONST: Healthy appearing patient, in no acute distress. Well hydrated. Alert and alert. HENMT: Head nomocephalic, normal to inspection. Atraumatic. Hearing grossly normal. EYES: General normal appearance. Alignment normal. Eyelids normal. Conjunctiva normal. NECK: Normal visual inspection. FROM. Trachea midline. No Midline tenderness. CHEST: Normal insepection of the chest. RESP: Normal respiratory effort. Speaking full sentences. No cough. No wheezing. No retractions. Clear to auscaltation. Breath sound equal and present bilaterally. CARDIO: No JVD. Normal PMI. Regular Rate. Regular Rhythm. Normal peripheral pulses. Murmur present. No rubs. GI: Normal inspection of abdomen. No distension. Soft. Nontender. Bowel sounds present in all 4 quadrants. No rebound. No gaurding. MUSCULOSKELETAL: Normal Gait. FROM of all extremities. Distal neurovascularly intact. Sensation intact distally. SKIN: Normal. Dry. No rashes. Right below the knee amputation, stump is dressed. No obvious cellulitis of the right leg. Left leg with calf swelling present, mild calf tenderness with palpation. An ulcerative wound noted to the dorsal aspect of the great toe on the left leg without obvious necrosis associated. Patient does have sensation intact distally. Cap refill is present. Dorsal pulses are present. Patient has erythema and warmth which is very well demarcated diffusely through the foot and ankle extending to the preti bial space with mild associated lymphangitis anteriorly. The plantar aspect of his foot patient has a early pustule noted in the midfoot NEURO: Alert and awake. Speech clear. PSYCH: Normal affect. Cooperative. Course Vital Signs Vital signs: Vital Signs Temperature 36.9 C 01/24/19 08:48 Pulse 85 01/24/19 08:48 Respiratory Rate 16 01/24/19 08:48 Blood Pressure 94/72 L 01/24/19 08:48 Pulse Oximetry 98 01/24/19 08:48 Temperature 36.9 C 01/24/19 08:48 Temperature Source Skin 01/24/19 08:48 Pulse 85 01/24/19 08:48 Respiratory Rate 16 01/24/19 08:48 Respiratory Effort Non-Labored 01/24/19 09:11 Blood Pressure 94/72 L 01/24/19 08:48 Blood Pressure Position Sitting 01/24/19 08:48 Pulse Oximetry 98 01/24/19 08:48 Oxygen Delivery Method Room Air 01/24/19 08:48 Oxygen Flow Rate 0 01/24/19 08:48 Pain Level 4 01/24/19 08:48 Comment 01/24/19 08:48 Lab/Test Results Lab/Test Results: 01/24/19 09:12 Blood Blood Culture - Pending 01/24/19 09:12 Blood Blood Culture - Pending
[2019-01-24 09:59] LABS: Lactate 0.8 mmol/L (0.6-1.4)
[2019-01-24 10:18] LABS: ALT 23 U/L (14-59); AST 27 U/L (15-37); Alkaline Phosphatase 86 U/L (46-116); Anion Gap 6.4 mmol/L (3-11); BUN 17 mg/dL (7-18); Bilirubin, Total 0.3 mg/dL (0.2-1.0); CO2 26.6 mmol/L (21.0-32.0); CREATININE 0.86 mg/dL (0.55-1.02); Calcium 8.5 mg/dL (8.5-10.1); Chloride 103 mmol/L (98-107); Glucose 121 mg/dL (70-100); Potassium 4.1 mmol/L (3.5-5.1); Sodium 136 mmol/L (136-145); Total Protein 7.8 g/dL (6.4-8.2)
[2019-01-24 10:21] LABS: PTT Activated 25.2 sec (21.0-31.4); Prothrombin Time 10.1 sec (9.3-11.0)
--- NOTE | 2019-01-24 10:24 | NUR.NOTE ---
Nursing Note: Lab at bedside to obtain second set of blood cultures. Lab unable to obtain second set of blood cultures. Central line has minimal blood return, unable to get all necessary tubes. additional assistance requested.
--- NOTE | 2019-01-24 10:26 | NUR.NOTE ---
Nursing Note: waiting for blood cultures to administer vancomycin per provider heather MAK
[2019-01-24 10:53] LABS: Abs Immature Grans 0.01 k/cumm (0.0-0.09); Absolute Basophil Count 0.01 k/cumm (0.0-0.2); Absolute Eosinophil Count 0.05 k/cumm (0.0-0.7); Absolute Lymphocyte Count 0.42 k/cumm (1.2-3.4); Absolute Monocyte Count 0.35 k/cumm (0.11-0.7); Absolute Neutrophil Count 2.32 k/cumm (1.2-6.7); Basophils % 0.3; Eosinophils % 1.6; HCT 30.1 % (36.0-46.0); HGB 9.5 g/dL (12.0-15.5); Immature Grans % 0.3; Lymphocytes % 13.3; Mean Corp. HGB Concentration 31.6 g/dL (32.0-36.0); Mean Corpuscular Hemoglobin 26.2 pg (27.0-33.0); Mean Corpuscular Volume 83.1 fL (80-95); Mean Platelet Volume 11.1 fL (8.0-11.0); Monocytes % 11.1; Neutrophils % 73.4; Platelet Count 186 x1000/uL (130-400); RBC 3.62 m/cumm (4.00-5.20); RBC Distribution Width 14.7 % (11.7-14.6); White Blood Cell Count 3.16 k/cumm (4.4-10.8)
--- NOTE | 2019-01-24 10:54 | NUR.NOTE ---
Nursing Note: Vancomycin held per provider due to positive test
[2019-01-24 11:19] LABS: Diff Comment RBC Morph Reviewed; RBC Morphology Normal
--- NOTE | 2019-01-24 11:41 | NUR.NOTE ---
Nursing Note: Vancomycin now given per provider
[2019-01-24 12:18] LABS: HCG Quant, Pregnancy 4553 mIU/mL (1-3)
[2019-01-24] MEDS: diphenhydrAMINE 50 MG/ML VIAL (12:54)
--- NOTE | 2019-01-24 12:55 | NUR.NOTE ---
Nursing Note: Pt given 50 mg IV Benadryl per AUBREE Hawkins. pt c/o redness and itching after vancomycin was completed, DENIES SOB. NO HIVES NOTED. slight reddness noted to patients forehead. will continue to monitor.
[2019-01-24] MEDS: Acetaminophen 500 MG TAB (13:59)
[2019-01-24 14:59] LABS: C-Reactive Protein 7.91 mg/dL (0.0-0.3)
--- NOTE | 2019-01-24 17:47 | HPE_ITS ---
Date of service: 01/24/19 Time of Service: 17:47 Assessment and Plan Assessment and plan (1) Cellulitis of left lower extremity: Status: Acute Assessment and plan: Check x-ray to assess for osteomyelitis. Consult podiatry. Continue Cefepime and add vancomycin. Blood cultures pending. 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 No evidence of acute thrombus. No ev idence of occlusion. Continue apixiban for anticoagulation. Has follow up scheduled with ?hematology. Qualifiers: Laterality: left Qualified Code(s): I82.4Z2 - Acute embolism and thrombosis of unspecified deep veins of left distal lower extremity (3) Hx of hepatitis C: Status: Acute Assessment and plan: With undetectable viral load. (4) Osteomyelitis of right lower extremity: Status: Chronic Assessment and plan: With Right BKA and chronic infection. Currently being treated with Cefepime as an outpatient for a 6 week course. She is followed by [facility] orthopedics. Previously grew pseudomonas. (5) Chronic infection as complication of amputation: Status: Acute Assessment and plan: As above. (6) Hx of opioid abuse: Status: Chronic Assessment and plan: On suboxone through [facility]. (7) History of intravenous drug abuse: Status: Acute Assessment and plan: Reports last injected about one month ago, reports she injected in her arms, denies injection into left foot. (8) Acute on chronic anemia: Status: Acute Assessment and plan: Recent hospitalization for abnormal uterine bleeding with anemia. Currently with hgb of 9.5, denies current uterine bleeding. Monitor H&H. (9) : Status: Acute Assessment and plan: Beta Hcg 4553. Unknown LMP. Plans to have therapeutic , has appointment at [facility]. (10) Discharge planning issues: Status: Acute Assessment and plan: She is a full code. This case was discussed with Dr. Belcher who is in agreement. History of Present Illness History of Present Illness Chief Complaint: LLE cellulitis Narrative: Lindsay Odonnell is a 38 year old female with a complicated medical history for her young age who presented to the ED today with redness and swelling of her left foot and leg. She reports an ongoing left great toe fungal infection that suddenly worsened and began to look like an ulceration 4-6 weeks ago. She was seen by podiatry who suspected gout, however, the work-up was negative. She then began to notice redness on the top of her foot which extended quickly up her leg over the last 4 days. She denies fevers, chills, shakes, nausea, vomiting at home. In the ED, she was afebrile, her white blood cell count was low at 3.16, hgb low at 9.5, hct 30.1. Her CRP is elevated at 7.91. She was found to be with a quantitative HCG of 4553. She does not know the date of her last menstrual period, she does not plan to keep the baby, she has already made an appointment for a therapeutic . She had stable vital signs. She also has a past medical history significant for Hepatitis C with undetectable viral load, history of IVDA, reports last injected in her arms about 1 month ago, denies injection in her LLE. Hx of right BKA in 08/2018 due to osteomyelitis (denies related to IV drug injection)- currently being treated for a 6 week course of Cefepime (previous culture grew Pseudomonas) through the infusion room here at [facility] via central line. Also with history of abscess and an eurysm of R femoral artery, requiring Bypass in 06/2017 at [facility], with reported retained foreign body in L groin (needle), DVT proximal LLE diagnosed in 09/2018 and started on Apixiban with subsequent hospitalization for abnormal uterine bleeding and anemia, treated with tranexamic acid and norethindrone, heart murmur and hypotension. She is admitted to the med/surg floor for further evaluation and management. At the time of her admission, she denies headache, dizziness, fevers, chills, shakes, shortness of breath, wheezing, coughing, chest pain/pressure, palpitations, abdominal pain, nausea, vomiting or diarrhea. She is not a smoker, she does not drink alcohol. She denies any drainage from her left great toe. She reports ongoing yellow drainage from her right BKA site. Review of Systems Review of Systems ROS Unobtainable: All systems reviewed & are unremarkable except as noted in HPI and below PFSH Medical History Abnormal uterine bleeding (AUB) (Acute) On. Set 10/24/2018 heavy flow coinciding with initiation of Eliquis DVT, lower extremity, distal, acute (Acute) 10/24 2018 left lower extremity. Rx with Eliquis. Endometriosis (Chronic) Hx of hepatitis C (Acute) AB +. No viral load. Hx of opioid abuse (Chronic) Currently in treatment at [facility]. Suboxone. Normocytic hypochromic anemia (Acute) 10/26/2018 hemoglobin 8.2 MCV 83 Raynaud disease (Chronic) Sciatic pain (Chronic) Surgical History Complete below knee amputation of right lower extremity (Acute) 2018. 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 [facility]. 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 H/O hand surgery (Chronic) contracted post-op History of transesophageal echocardiography (YG) (Chronic) negative Retained foreign body (Chronic) L groin, s/p unsuccessful exploratory surgery Family History Father Diabetes Paternal Grandfather Diabetes Paternal Aunt Diabetes Maternal Grandmother Breast cancer Maternal Aunt Multiple sclerosis Social History Smoking/Tobacco Use Status: Never Alcohol Intake: never Drug use: Current Sobriety Substance use type: former substance user, crack/cocaine, heroin and methamphetamine Details: former cocaine (snorted, smoked, IV) and heroin use (IV), as well as crystal meth (IV). Patient is currently enrolled at [facility], on suboxone Household members: children and other Details: Patient resides at her sister's house with her daughter Number of Children: 1 current occupation: Unemployed Do you feel safe at home: Yes Do you feel safe in your relationship?: Yes Additional Social history: Ambulates with crutches - 2 falls recently Meds Home Medications and Allergies Home Medications Medication Instructions Recorded Confirmed Type Buprenorphine/Naloxone [Suboxone 1 unit PO DAILY 07/17/17 01/24/19 History 12 MG-3 MG SL FILM] Eliquis 10 mg PO BID 10/26/18 01/24/19 History gabapentin 600 mg PO TID 10/26/18 01/24/19 History methocarbamol 500 mg PO QID PRN 10/26/18 01/24/19 History trazodone 50 mg PO QHS 10/26/18 01/24/19 History clotrimazole-betameth dip-zinc See Rx Instructions .ROUTE 12/17/18 01/24/19 Rx .COMPLEX #135 gm cefepime 2 g BID 01/24/19 01/24/19 History ibuprofen 600 mg PO PRN PRN 01/24/19 01/24/19 History Allergies Allergy/AdvReac Type Severity Reaction Status Date / Time No Known Allergies Allergy Unverified 10/26/18 13:38 Exam Narrative Exam Narrative: General: Awake, alert and oriented. Pleasant and cooperative. Answers questions appropriately. Does not appear to be in any acute distress. HEENT: Normocephalic, atraumatic, pupils equal and round, EOMI, mucous membranes moist, poor dentition. Neck: Supple, no JVD. Cardiovascular: Heart has regular rate and rhythm, non-tachycardic, soft murmur appreciated at the right sternal border. Respiratory: Respirations even and unlabored, lung sounds clear to auscultation throughout. Extremities: Left lower extremity with edema and intense redness encompassing entire foot and extending two thirds of the way up to her knee, most intense over the dorsal aspect of her left foot. Left great toe with what appears to be ulceration to the dorsal aspect. Right lower extremity with below the knee amputation, 2 open areas with thick yellow drainage. Results Labs Result diagrams: 01/24/19 10:32 01/24/19 09:40 Labs: Laboratory Results - last 24 hr 01/24/19 01/24/19 01/24/19 09:40 09:40 09:40 WBC RBC Hgb Hct MCV MCH MCHC RDW Plt Count MPV Immature Gran % Neutrophils % Lymphocytes % Monocytes % Eosinophils % Basophils % Absolute Neutrophils Absolute Lymphocytes Absolute Monocytes Absolute Eosinophils Absolute Basophils Differential Comment RBC Morphology PT 10.1 INR 1.0 APTT 25.2 Sodium 136 Potassium 4.1 Chloride 103 Carbon Dioxide 26.6 Anion Gap 6.4 BUN 17 Creatinine 0.86 Estimated GFR/1.73 m2 >= 60.00 Glucose 121 H Lactate 0.8 Calcium 8.5 Total Bilirubin 0.3 AST 27 ALT 23 Alkaline Phosphatase 86 C-Reactive Protein Total Protein 7.8 Albumin 3.0 L Beta HCG, Quant Patient ABO/Rh Antibody Screen 01/24/19 01/24/19 01/24/19 10:15 10:15 10:32 WBC 3.16 L RBC 3.62 L Hgb 9.5 L Hct 30.1 L MCV 83.1 MCH 26.2 L MCHC 31.6 L RDW 14.7 H Plt Count 186 MPV 11.1 H Immature Gran % 0.3 Neutrophils % 73.4 Lymphocytes % 13.3 Monocytes % 11.1 Eosinophils % 1.6 Basophils % 0.3 Absolute Neutrophils 2.32 Absolute Lymphocytes 0.42 L Absolute Monocytes 0.35 Absolute Eosinophils 0.05 Absolute Basophils 0.01 Differential Comment Rbc morph reviewed RBC Morphology Normal PT INR APTT Sodium Potassium Chloride Carbon Dioxide Anion Gap BUN Creatinine Estimated GFR/1.73 m2 Glucose Lactate Calcium Total Bilirubin AST ALT Alkaline Phosphatase C-Reactive Protein Total Protein Albumin Beta HCG, Quant 4553 H Patient ABO/Rh A Positive Antibody Screen Negative 01/24/19 11:31 WBC RBC Hgb Hct MCV MCH MCHC RDW Plt Count MPV Immature Gran % Neutrophils % Lymphocytes % Monocytes % Eosinophils % Basophils % Absolute Neutrophils Absolute Lymphocytes Absolute Monocytes Absolute Eosinophils Absolute Basophils Differential Comment RBC Morphology PT INR APTT Sodium Potassium Chloride Carbon Dioxide Anion Gap BUN Creatinine Estimated GFR/1.73 m2 Glucose Lactate Calcium Total Bilirubin AST ALT Alkaline Phosphatase C-Reactive Protein 7.91 H Total Protein Albumin Beta HCG, Quant Patient ABO/Rh Antibody Screen Last Vital Signs Temp 36.7 C 01/24/19 16:12 Pulse 82 01/24/19 16:12 Resp 20 01/24/19 16:12 BP 121/75 01/24/19 16:12 Pulse Ox 100 01/24/19 16:12
[2019-01-24] MEDS: CEFEPIME 2 GM in Normal Saline 100 ML IVPB (17:52)
[2019-01-24] MEDS: Gabapentin 600 MG TAB PO (20:29)
--- NOTE | 2019-01-24 21:11 | DI.RAD_ITS ---
EXAM: XR FOOT LT COMPLETE CLINICAL HISTORY: redness and swelling,?osteomyelitis. TECHNIQUE: 2D digital imaging was performed. COMPARISON: No exams were available for comparison FINDINGS: BONES: No acute fracture is present. No bony destructive lesion is seen. JOINTS: No dislocation present. SOFT TISSUE: There is mild soft tissue swelling seen in the forefoot. No radiopaque foreign bodies a re present. IMPRESSION: There are no radiographic findings to suggest osteomyelitis or septic joint. Soft tissue swelling in the forefoot.
[2019-01-24] MEDS: diphenhydrAMINE 25 MG CAP PO (21:16)
[2019-01-24] MEDS: Clotrimazole/Betamet Diprop Cream 15 GM TUBE TP (21:16)
[2019-01-24] MEDS: Normal Saline Flush 10 ML SYR IVP (21:16)
[2019-01-24] MEDS: Gabapentin 400 MG CAP 1200 MG PO (22:13)
[2019-01-24] MEDS: traZODone 50 MG TAB PO (22:13)
[2019-01-25] VITALS (7 sets, daily range): BP systolic 97–120; BP diastolic 63–84; PULSE 68–94; RESP 16–18; TEMP 36.3–37.9; O2SAT 96–100
[2019-01-25] MEDS: CEFEPIME 2 GM in Normal Saline 100 ML IVPB ×2 (06:17→17:47)
[2019-01-25] MEDS: Normal Saline Flush 10 ML SYR IVP ×4 (07:07→20:01)
[2019-01-25 07:41] LABS: Abs Immature Grans 0.01 k/cumm (0.0-0.09); Absolute Basophil Count 0.01 k/cumm (0.0-0.2); Absolute Eosinophil Count 0.02 k/cumm (0.0-0.7); Absolute Lymphocyte Count 0.36 k/cumm (1.2-3.4); Absolute Monocyte Count 0.26 k/cumm (0.11-0.7); Absolute Neutrophil Count 1.88 k/cumm (1.2-6.7); Basophils % 0.4; Eosinophils % 0.8; HCT 30.7 % (36.0-46.0); HGB 9.4 g/dL (12.0-15.5); Immature Grans % 0.4; Lymphocytes % 14.2; Mean Corp. HGB Concentration 30.6 g/dL (32.0-36.0); Mean Corpuscular Hemoglobin 25.5 pg (27.0-33.0); Mean Corpuscular Volume 83.2 fL (80-95); Mean Platelet Volume 11.3 fL (8.0-11.0); Monocytes % 10.2; Platelet Count 183 x1000/uL (130-400); RBC 3.69 m/cumm (4.00-5.20); RBC Distribution Width 14.8 % (11.7-14.6); White Blood Cell Count 2.54 k/cumm (4.4-10.8)
[2019-01-25 07:46] LABS: Anion Gap 9.8 mmol/L (3-11); BUN 19 mg/dL (7-18); C-Reactive Protein 5.66 mg/dL (0.0-0.3); CO2 24.2 mmol/L (21.0-32.0); CREATININE 0.81 mg/dL (0.55-1.02); Calcium 8.6 mg/dL (8.5-10.1); Chloride 102 mmol/L (98-107); Glucose 83 mg/dL (70-100); Sodium 136 mmol/L (136-145)
--- NOTE | 2019-01-25 08:14 | PHARADMIT ---
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 Day#3 for Left Lower Leg cellulitis . Lovenox ordered to replace Apixaban now that pregnnant (DVT). Objective VS-OK Lytes,SCr,WBC,H&H,Plts-OK Wgt-59.8 kg No BM reported Assessment Cefepime & Vancomycin continue Plan Patient has plans to abort baby, will need continued Lovenox until then. Plan for patient to receive IV ABX as outpatient, Vanco 1gm IV q8hr, may be converted to 1.5gm iv q12hrs (Pk~37 Tr~10) provider aware. Original Note: Admission Pharmacy Clinical Review LLE CELLULITIS () Code Status Full Code Current Weight Wgt-58.3 kg Renally Cleared and Narrow Therapeutic Index Meds CrCl~82.9 mL/min Meds-OK QTc Value / Action Taken NA BP Control, Fever BP-109/63 Tmax- 37.2C Electrolytes reviewed Na-136 K+4.0 DVT Prophylaxis RPh to ask hospitalist Opiate Usage / Scheduled Bowel Regimen Ordered No Yes Plt/SCr for Heparin / Enoxaparin Plts-186 SCr-0.81 INR for Warfarin inr-1.0 H/H stable, WBC/Bands H&H- 9.5/30.1 WBC-3.16 Antibiotic appropriateness Cefepime,Vancomycin Cultures and Sensitivities Blood-Pending Surgical ABX d/c within 24 hr NA DM control / Insulin Dosing BG-83 Heart Failure (Check EF%) (ENRIQUE's, B-Block, Diuretics) none IV to PO Switch No Home Meds Reviewed Yes Home Meds Not Ordered Eliquis, Ibuprofen, Comments Nursing checked with JENNIFER re;Suboxone dose 04/01
[2019-01-25 08:17] LABS: Anisocytosis 2+; Diff Comment RBC Morph Reviewed; Hypochromasia 1+; Polychromasia Present
[2019-01-25] MEDS: Gabapentin 600 MG TAB PO ×3 (08:29→19:59)
[2019-01-25] MEDS: Clotrimazole/Betamet Diprop Cream 15 GM TUBE TP ×2 (08:30→20:02)
[2019-01-25] MEDS: Docusate Sodium 100 MG CAP PO (09:08)
[2019-01-25] MEDS: Buprenorphine/Naloxone 12 mg/3 mg FILM 1 EACH SL (10:01)
[2019-01-25] MEDS: Acetaminophen 500 MG TAB 1000 MG PO (11:30)
[2019-01-25 11:57] LABS: Vancomycin, Trough 20.6 ug/mL (10.0-20.0)
[2019-01-25] MEDS: Enoxaparin 60 MG/0.6 ML SYR SC ×2 (12:59→23:15)
[2019-01-25] MEDS: diphenhydrAMINE 25 MG CAP PO ×2 (13:19→22:14)
--- NOTE | 2019-01-25 14:04 | W.PM.PROGNOT ---
Date of Service Date of service: 01/25/19 Time of Service: 14:04 Assessment and Plan Assessment and plan (1) Cellulitis of left lower extremity: Start date: 01/25/19 Start time: 14:09 Status: Acute Assessment and plan: Cefepime and vanco day 2. Xray without osteomylitis, no septic joint no foreign body. Podiatry consulted. Wound cultured. Blood No Growth to date (2) DVT, lower extremity, distal, acute: Start date: 01/25/19 Start time: 14:10 Status: Acute Assessment and plan: Apixaban dcd as patient is . Started on enoxaparin per OB recommendations. Will need to continue throughout Qualifiers: Laterality: left Qualified Code(s): I82.4Z2 - Acute embolism and thrombosis of unspecified deep veins of left distal lower extremity (3) Hx of hepatitis C: Start date: 01/25/19 Start time: 14:19 Status: Acute Assessment and plan: With undetectable viral load. (4) Osteomyelitis of right lower extremity: Start date: 01/25/19 Start time: 14:19 Status: Chronic Assessment and plan: With Right BKA and chronic infection. Currently being treated with Cefepime as an outpatient for a 6 week course. She is followed by [facility] orthopedics. Previously grew pseudomonas. No Growth to date at this time (5) Chronic infection as complication of amputation: Start date: 01/25/19 Start time: 14:19 Status: Acute Assessment and plan: As above. (6) Hx of opioid abuse: Start date: 01/25/19 Start time: 14:19 Status: Chronic Assessment and plan: On suboxone through [facility]. (7) History of intravenous drug abuse: Start date: 01/25/19 Start time: 14:19 Status: Acute Assessment and plan: Reports last injected about one month ago, reports she injected in her arms, denies injection into left foot. Apparently retained needle however no diagnostics available to support this evidence at this time. (8) Acute on chronic anemia: Status: Acute Assessment and plan: Recent hospitalization for abnormal uterine bleeding with anemia. Currently with hgb of 9.5, denies current uterine bleeding. Monitor H&H. On enoxaparin for DVT (9) : Start date: 01/25/19 Start time: 14:21 Status: Acute Assessment and plan: Beta Hcg 4553. Unknown LMP. Plans to have therapeutic , [facility] (10) Discharge planning issues: Start date: 01/25/19 Start time: 14:22 Status: Acute Assessment and plan: She is a full code. This case was discussed with Dr. Copeland who is in agreement. Subjective Subjective Patient reports: feels better Interval history since last seen: LLE is with decreased erythema and edema. Line is receding. Open area to left great toe. Dr. Majano consulted. Right thigh is looking better per patient, wound culture done per patient request. Patient takes apixaban BID for DVT, she is , consulted with OB and she needs to be on enoxaparin while . Patient does have plans to terminate , however until then will need to be on enoxparin per OB recommendation. Exam Narrative Exam Narrative: General: Awake, alert and oriented. Pleasant and cooperative. Answers questions appropriately. Does not appear to be in any acute distress. HEENT: Normocephalic, atraumatic, pupils equal and round, EOMI, mucous membranes moist, poor dentition. Neck: Supple, no JVD. Cardiovascular: Heart has regular rate and rhythm, non-tachycardic, soft murmur appreciated at the right sternal border. Respiratory: Respirations even and unlabored, lung sounds clear to auscultation throughout. Extremities: Left lower extremity with edema and redness to top of foot and extending now one thirds of the way up to her knee, most intense over the dorsal aspect of her left foot. Left great toe with what appears to be ulceration to the dorsal aspect. Right lower extremity with below the knee amputation, 2 open areas with thick yellow drainage. Objective Objective Clinical Data: Abnormal lab results 01/24/19 01/25/19 01/25/19 Range/Units 11:31 06:50 06:50 WBC 2.54 L (4.4-10.8) k/cumm RBC 3.69 L (4.00-5.20) m/cumm Hgb 9.4 L (12.0-15.5) g/dL Hct 30.7 L (36.0-46.0) % MCH 25.5 L (27.0-33.0) pg MCHC 30.6 L (32.0-36.0) g/dL RDW 14.8 H (11.7-14.6) % MPV 11.3 H (8.0-11.0) fL Absolute Lymphocytes 0.36 L (1.2-3.4) k/cumm BUN 19 H (7-18) mg/dL C-Reactive Protein 7.91 H 5.66 H (0.0-0.3) mg/dL Vancomycin Trough (10.0-20.0) ug/mL 01/25/19 Range/Units 11:25 WBC (4.4-10.8) k/cumm RBC (4.00-5.20) m/cumm Hgb (12.0-15.5) g/dL Hct (36.0-46.0) % MCH (27.0-33.0) pg MCHC (32.0-36.0) g/dL RDW (11.7-14.6) % MPV (8.0-11.0) fL Absolute Lymphocytes (1.2-3.4) k/cumm BUN (7-18) mg/dL C-Reactive Protein (0.0-0.3) mg/dL Vancomycin Trough 20.6 H* (10.0-20.0) ug/mL Vital Signs Temperature 37.9 C H 01/25/19 12:31 Temperature Source Tympanic 01/25/19 12:31 Pulse 88 01/25/19 12:31 Pulse Rhythm Regular 01/25/19 08:23 Respiratory Rate 16 01/25/19 12:31 Respiratory Effort Non-Labored 01/25/19 08:23 Respiratory Depth Normal 01/25/19 08:23 Respiratory Pattern Normal 01/25/19 08:23 Blood Pressure 112/77 01/25/19 12:31 Blood Pressure Mean 88 01/24/19 12:32 Blood Pressure Position Sitting 01/24/19 08:48 Pulse Oximetry 98 01/25/19 12:31 Oxygen Delivery Method Room Air 01/25/19 12:31 Oxygen Flow Rate 0 01/25/19 12:31 Pain Level 0 01/25/19 08:48 Comment 01/24/19 08:48 Intake & Output 01/24/19 01/25/19 01/25/19 23:59 11:59 23:59 Intake Total 520 / 520 620 / 620 Output Total 500 / 500 Balance 620 / 620 Weight 58.3 kg Intake: IV 520 / 520 380 / 380 Oral 240 / 240 Output: Urine 500 / 500 Other: Urine Color Pale Yellow Urine Appearance Clear Comment Voiding ad nasir; no hat. Pt denies sx. Reports minimal increase in frequency. Pt is 5weeks . Voiding Methods Toilet Toilet Laboratory Results WBC 2.54 k/cumm (4.4-10.8) L 01/25/19 06:50 RBC 3.69 m/cumm (4.00-5.20) L 01/25/19 06:50 Hgb 9.4 g/dL (12.0-15.5) L 01/25/19 06:50 Hct 30.7 % (36.0-46.0) L 01/25/19 06:50 MCV 83.2 fL (80-95) 01/25/19 06:50 MCH 25.5 pg (27.0-33.0) L 01/25/19 06:50 MCHC 30.6 g/dL (32.0-36.0) L 01/25/19 06:50 RDW 14.8 % (11.7-14.6) H 01/25/19 06:50 Plt Count 183 x1000/uL (130-400) 01/25/19 06:50 MPV 11.3 fL (8.0-11.0) H 01/25/19 06:50 Immature Gran % 0.4 01/25/19 06:50 Neutrophils % 74.0 01/25/19 06:50 Lymphocytes % 14.2 01/25/19 06:50 Monocytes % 10.2 01/25/19 06:50 Eosinophils % 0.8 01/25/19 06:50 Basophils % 0.4 01/25/19 06:50 Absolute Neutrophils 1.88 k/cumm (1.2-6.7) 01/25/19 06:50 Absolute Lymphocytes 0.36 k/cumm (1.2-3.4) L 01/25/19 06:50 Absolute Monocytes 0.26 k/cumm (0.11-0.7) 01/25/19 06:50 Absolute Eosinophils 0.02 k/cumm (0.0-0.7) 01/25/19 06:50 Absolute Basophils 0.01 k/cumm (0.0-0.2) 01/25/19 06:50 Differential Comment Rbc morph reviewed 01/25/19 06:50 RBC Morphology See below 01/25/19 06:50 Polychromasia Present 01/25/19 06:50 Hypochromasia 1+ 01/25/19 06:50 Anisocytosis 2+ 01/25/19 06:50 PT 10.1 sec (9.3-11.0) 01/24/19 09:40 INR 1.0 (0.9-1.1) 01/24/19 09:40 APTT 25.2 sec (21.0-31.4) 01/24/19 09:40 Sodium 136 mmol/L (136-145) 01/25/19 06:50 Potassium 4.0 mmol/L (3.5-5.1) 01/25/19 06:50 Chloride 102 mmol/L (98-107) 01/25/19 06:50 Carbon Dioxide 24.2 mmol/L (21.0-32.0) 01/25/19 06:50 Anion Gap 9.8 mmol/L (3-11) 01/25/19 06:50 BUN 19 mg/dL (7-18) H 01/25/19 06:50 Creatinine 0.81 mg/dL (0.55-1.02) 01/25/19 06:50 Estimated GFR/1.73 m2 >= 60.00 (mL/min/1.73m2) 01/25/19 06:50 Glucose 83 mg/dL (70-100) 01/25/19 06:50 Lactate 0.8 mmol/L (0.6-1.4) 01/24/19 09:40 Calcium 8.6 mg/dL (8.5-10.1) 01/25/19 06:50 Total Bilirubin 0.3 mg/dL (0.2-1.0) 01/24/19 09:40 AST 27 U/L (15-37) 01/24/19 09:40 ALT 23 U/L (14-59) 01/24/19 09:40 Alkaline Phosphatase 86 U/L (46-116) 01/24/19 09:40 C-Reactive Protein 5.66 mg/dL (0.0-0.3) H 01/25/19 06:50 Total Protein 7.8 g/dL (6.4-8.2) 01/24/19 09:40 Albumin 3.0 g/dL (3.4-5.0) L 01/24/19 09:40 Beta HCG, Quant 4553 mIU/mL (1-3) H 01/24/19 10:15 Vancomycin Trough 20.6 ug/mL (10.0-20.0) H* 01/25/19 11:25 Patient ABO/Rh A Positive 01/24/19 10:15 Antibody Screen Negative 01/24/19 10:15
--- NOTE | 2019-01-25 18:27 | PDOC.CMIN ---
- If Service Date Differs Date of service: 01/25/19 Time of Service: 18:27 Care Management Initial Assess REASON FOR HOSPITALIZATION:: LLE cellulitis PAST MEDICAL HISTORY/PAST SURGICAL HISTORY:: Medical: Hx of hepatitis C (Acute); DVT, lower extremity, distal, acute (Acute); Abnormal uterine bleeding (AUB) (Acute); Normocytic hypochromic anemia (Acute); Hx of opioid abuse (Chronic); Endometriosis (Chronic); Raynaud disease (Chronic); Sciatic pain (Chronic). Surgical: Complete below knee amputation of right lower extremity (Acute). Femoral artery aneurysm, right (Resolved); H/O hand surgery (Chronic). History of transesophageal echocardiography (YG) (Chronic); Retained foreign body (Chronic) PREVIOUS FUNCTIONAL STATUS/SOCIAL/FAMILY SUPPORTS:: Lindsay is independent at baseline her SO is currently at [facility] being treated for MSSA sepsis. She has a 7 year old daughter that they care for. She has a right LE amputation and uses crutches for ambulation. She has been receiving infusion services for BID abx. She receives substance abuse services through [facility] CURRENT FUNCTIONAL STATUS:: Lindsay is on the phone when CM arrives to the room, request CM return when compelted call. ADVANCE DIRECTIVES:: None on file Has patient been provided with information about the portal?: Yes Did the patient sign up for the portal?: No CODE STATUS:: Full Code INSURANCE COVERAGE / FINANCIAL ISSUES:: Medicaid CURRENT HOME/COMMUNITY SERVICES/EQUIPMENT:: [facility] and RCT PRIMARY CARE PHYSICIAN:: POTENTIAL DISCHARGE NEEDS:: Anticipate ongoing abx infusions and Lovenox as her Eliquis needs to be discontinued r/t per provider PATIENT/FAMILY EDUCATION NEEDS:: Discharge instructions, limitations and follow up plan of care including medication and self adminstering Lovenox ANTICIPATED BARRIERS TO DISCHARGE:: None TRANSPORTATION:: Via private car with family versus RCT PLAN:: Lindsay will be discharged when medically ready. Wound cultures are pending. CM to continue to provide support and resources discharging planning and disposition.
[2019-01-25] MEDS: traZODone 50 MG TAB PO (20:27)
[2019-01-25] MEDS: Polyethylene Glycol 3350 17 GM PACKET PO (20:27)
--- NOTE | 2019-01-25 21:17 | W.GYNCONSULT ---
Assessment and Plan Assessment and plan (1) : Status: Acute Assessment and plan: By her hCG she is approximately 5 weeks EGA. I will perform a bedside transvaginal ultrasound tomorrow for confirmation of viability and dating. Patient has already contacted [facility] at the [place] office to schedule an appointment for consultation regarding termination of . She would qualify for a medical termination at this point in the . (2) DVT, lower extremity, distal, acute: Status: Acute Assessment and plan: Based on the patient's desire to for termination it could be feasible to restart the Eliquis at the time of her discharge. Qualifiers: Laterality: left Qualified Code(s): I82.4Z2 - Acute embolism and thrombosis of unspecified deep veins of left distal lower extremity History of Present Illness Narrative: Patient is a 38-year-old G2, P1 female currently not using contraception who presented to the [facility] emergency department on 01/24/19 with redness and swelling of her left foot and leg. She was admitted to Hospitalist service to rule out DVT and osteomylitis. She is currently on an extended course of outpatient Cefepime for chronic infection of her R leg amputation site and Eliquis for left lower extremity DVT that was diagnosed in September,. In the Emergency Dept on 01/24/19 pt's hCG was 4553mIU/Ml. Pt had not been tracking her menses and was not aware that she was . I was asked to about the appropriateness of Vancomycin for a pt (not contraindicated) and about continuing the Eliquis for anticoagulation, which is contraindicated. Currently there are no good studies in humans regarding the safety of direct oral anticoagulants but the animal data suggests a teratogenic effect. For this reason the pt was changed to LMWH today. Lastly I was asked to speak to the patient regarding her plans for the . She wants a termination for both social and health reasons. I wanted to make sure that she was aware of her options regarding a termination. Review of Systems Constitutional Constitutional: Reports system reviewed and no additional complaints, except as docu Respiratory Respiratory: Reports system reviewed and no additional complaints, except as docu Genitourinary Genitourinary: Reports amenorrhea (for ~ 2mo. No recall of when her LMP was.) Comments: Pt was admitted to [facility] for observation in 09/2018 for menorrhagia and anemia after starting Eliquis. Since then she has had light menes approximately every month. Musculoskeletal Comments: Left lower extremity tenderness and swelling Psychiatric Comments: Patient feels that this is not an appropriate time for her to be and that she cannot continue with the for both social and health reasons. Father the baby is currently hospitalized in serious condition at [facility] the patient's recent amputation requires crutches for ambulation and has resulted in poor balance and occasional falls. [facility] Medical History Abnormal uterine bleeding (AUB) (Acute) On. Set 10/24/2018 heavy flow coinciding with initiation of Eliquis DVT, lower extremity, distal, acute (Acute) 10/24 2018 left lower extremity. Rx with Eliquis. Endometriosis (Chronic) Hx of hepatitis C (Acute) AB +. No viral load. Hx of opioid abuse (Chronic) Currently in treatment at [facility]. Suboxone. Normocytic hypochromic anemia (Acute) 10/26/2018 hemoglobin 8.2 MCV 83 Raynaud disease (Chronic) Sciatic pain (Chronic) Surgical History Complete below knee amputation of right lower extremity (Acute) 2018. 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 [facility]. 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 H/O hand surgery (Chronic) contracted post-op History of transesophageal echocardiography (YG) (Chronic) negative Retained foreign body (Chronic) L groin, s/p unsuccessful exploratory surgery Family History Father Diabetes Paternal Grandfather Diabetes Paternal Aunt Diabetes Maternal Grandmother Breast cancer Maternal Aunt Multiple sclerosis Social History Smoking/Tobacco Use Status: Never Alcohol Intake: never Drug use: Current Sobriety Substance use type: former substance user, crack/cocaine, heroin and methamphetamine Details: former cocaine (snorted, smoked, IV) and heroin use (IV), as well as crystal meth (IV). Patient is currently enrolled at [facility], on suboxone Household members: children and other Details: Patient resides at her sister's house with her daughter Number of Children: 1 current occupation: Unemployed Do you feel safe at home: Yes Do you feel safe in your relationship?: Yes Additional Social history: Ambulates with crutches - 2 falls recently Exam Const General: no acute distress Nutritional Appearance: average body habitus Orientation: alert, awake and oriented x3 Resp Effort & Inspection: normal respiratory effort General: deferred (Physical exam was deferred. ) Psych Appearance: grossly normal Mental Status: mental status grossly normal Speech and Movement: speech and movement normal Mood: congruent mood Affect: normal affect Attitude: cooperative Thought Process: normal Thought Content: normal Insight: insight good Judgment: judgment good Results Last Vital Signs Temp 97.3 F L 01/25/19 20:04 Pulse 79 01/25/19 20:04 Resp 16 01/25/19 20:04 BP 97/63 L 01/25/19 20:04 Pulse Ox 100 01/25/19 20:04 Labs Result diagrams: 01/25/19 06:50 01/25/19 06:50 Labs: Laboratory Results - last 24 hr 01/25/19 01/25/19 01/25/19 06:50 06:50 11:25 WBC 2.54 L RBC 3.69 L Hgb 9.4 L Hct 30.7 L MCV 83.2 MCH 25.5 L MCHC 30.6 L RDW 14.8 H Plt Count 183 MPV 11.3 H Immature Gran % 0.4 Neutrophils % 74.0 Lymphocytes % 14.2 Monocytes % 10.2 Eosinophils % 0.8 Basophils % 0.4 Absolute Neutrophils 1.88 Absolute Lymphocytes 0.36 L Absolute Monocytes 0.26 Absolute Eosinophils 0.02 Absolute Basophils 0.01 Differential Comment Rbc morph reviewed RBC Morphology See below Polychromasia Present Hypochromasia 1+ Anisocytosis 2+ Sodium 136 Potassium 4.0 Chloride 102 Carbon Dioxide 24.2 Anion Gap 9.8 BUN 19 H Creatinine 0.81 Estimated GFR/1.73 m2 >= 60.00 Glucose 83 Calcium 8.6 C-Reactive Protein 5.66 H Vancomycin Trough 20.6 H*
[2019-01-25] MEDS: Gabapentin 400 MG CAP 1200 MG PO (22:14)
[2019-01-26] VITALS (7 sets, daily range): BP systolic 98–120; BP diastolic 61–79; PULSE 73–80; RESP 15–20; TEMP 36.5–37.1; O2SAT 96–100
[2019-01-26] MEDS: Normal Saline Flush 10 ML SYR IVP ×4 (04:12→19:56)
[2019-01-26] MEDS: CEFEPIME 2 GM in Normal Saline 100 ML IVPB ×2 (06:08→17:51)
[2019-01-26 07:22] LABS: Abs Immature Grans 0.01 k/cumm (0.0-0.09); Absolute Basophil Count 0.02 k/cumm (0.0-0.2); Absolute Eosinophil Count 0.06 k/cumm (0.0-0.7); Absolute Lymphocyte Count 0.56 k/cumm (1.2-3.4); Absolute Monocyte Count 0.27 k/cumm (0.11-0.7); Absolute Neutrophil Count 1.34 k/cumm (1.2-6.7); Basophils % 0.9; Eosinophils % 2.7; HGB 9.2 g/dL (12.0-15.5); Immature Grans % 0.4; Lymphocytes % 24.8; Mean Corp. HGB Concentration 30.7 g/dL (32.0-36.0); Mean Corpuscular Hemoglobin 25.5 pg (27.0-33.0); Mean Corpuscular Volume 83.1 fL (80-95); Monocytes % 11.9; Neutrophils % 59.3; Platelet Count 181 x1000/uL (130-400); RBC 3.61 m/cumm (4.00-5.20); RBC Distribution Width 14.7 % (11.7-14.6); White Blood Cell Count 2.26 k/cumm (4.4-10.8)
[2019-01-26 07:34] LABS: Anion Gap 8.1 mmol/L (3-11); BUN 14 mg/dL (7-18); CO2 25.9 mmol/L (21.0-32.0); CREATININE 0.77 mg/dL (0.55-1.02); Calcium 8.5 mg/dL (8.5-10.1); Chloride 103 mmol/L (98-107); Glucose 82 mg/dL (70-100); Magnesium 1.9 mg/dL (1.8-2.4); Sodium 137 mmol/L (136-145)
[2019-01-26] MEDS: Buprenorphine/Naloxone 12 mg/3 mg FILM 1 EACH SL (07:55)
[2019-01-26] MEDS: Gabapentin 600 MG TAB PO ×3 (07:56→19:55)
[2019-01-26] MEDS: Acetaminophen 500 MG TAB 1000 MG PO (08:00)
[2019-01-26] MEDS: Clotrimazole/Betamet Diprop Cream 15 GM TUBE TP ×2 (08:19→19:57)
[2019-01-26 08:21] LABS: Diff Comment Diff Reviewed
[2019-01-26 08:22] LABS: Hypochromasia 1+
[2019-01-26] MEDS: Magnesium Oxide 400 MG TAB PO (09:30)
[2019-01-26] MEDS: diphenhydrAMINE 25 MG CAP PO ×2 (11:34→19:55)
--- NOTE | 2019-01-26 11:49 | W.PM.PROGNOT ---
Date of Service Date of service: 01/26/19 Time of Service: 11:49 Assessment and Plan Assessment and plan (1) : Status: Acute Assessment and plan: Transvaginal ultrasound did not confirm viability the plan at this time is to have the patient follow-up with [facility] for further evaluation and counseling regarding termination of . Qualifiers: Weeks of gestation: less than 8 weeks Qualified Code(s): Z3A.01 - Less than 8 weeks gestation of Subjective Subjective Patient reports: no new complaints and afebrile Interval history since last seen: Patient reports that she had a satisfactory night. No uterine cramping. She reports that she has had small amounts of dark red blood on toilet tissue after wiping. Nothing that would be the equivalent of a menses. Exam Narrative Exam Narrative: Hospital day 3. Admission for left lower leg swelling with new DVT ruled out. She has received antibiotics while hospitalized and switched from her direct oral anticoagulant to low molecular weight heparin secondary to her current status. Patient has plan to terminate the and has made arrangements at [facility] no other winded at the very office. I reviewed her estimated last menstrual period which would currently place her at approximately 6 weeks estimated gestational age. She thinks her last bleeding episode was during the first week of December. Plan today is to perform a bedside ultrasound to get a better sense of estimated gestational age. Resp Effort & Inspection: normal respiratory effort Other: After verbal consent was obtained a transvaginal ultrasound was placed into the vagina and the uterus was visualized. There is a gestational sac measuring 1.14 cm. No pole or yolk sac appreciated. Calculated EGA is 5w6d0 +/-10 d. Normal left adnexa right adnexa was not visualized. I explained to the patient that the transvaginal ultrasound is not confirmative of viable IUP based on her probable date of conception. However based on her hCG she may in fact be earlier than 6 weeks. As a result I recommended that she keep her appointment at [facility] or [facility] and a repeat ultrasound be performed at that time. She is agreeable to the plan Objective Objective Clinical Data: Abnormal lab results 01/25/19 01/26/19 Range/Units 11:25 06:50 WBC 2.26 L (4.4-10.8) k/cumm RBC 3.61 L (4.00-5.20) m/cumm Hgb 9.2 L (12.0-15.5) g/dL Hct 30.0 L (36.0-46.0) % MCH 25.5 L (27.0-33.0) pg MCHC 30.7 L (32.0-36.0) g/dL RDW 14.7 H (11.7-14.6) % Absolute Lymphocytes 0.56 L (1.2-3.4) k/cumm Vancomycin Trough 20.6 H* (10.0-20.0) ug/mL Vital Signs Temperature 98.6 F 01/26/19 08:33 Temperature Source Tympanic 01/26/19 08:33 Pulse 75 01/26/19 08:33 Pulse Rhythm Regular 01/26/19 08:37 Respiratory Rate 16 01/26/19 08:33 Respiratory Effort Non-Labored 01/26/19 08:37 Respiratory Depth Normal 01/26/19 08:37 Respiratory Pattern Normal 01/26/19 08:37 Blood Pressure 99/63 L 01/26/19 08:33 Blood Pressure Mean 88 01/24/19 12:32 Blood Pressure Position Sitting 01/24/19 08:48 Pulse Oximetry 100 01/26/19 08:37 Oxygen Delivery Method Room Air 01/26/19 08:37 Oxygen Flow Rate 0 01/26/19 08:37 Pain Level 0 01/26/19 08:33 Comment 01/24/19 08:48 Intake & Output 01/25/19 01/25/19 01/26/19 11:59 23:59 11:59 Intake Total 620 / 1930 1310 / 1930 1080 / 1080 Balance 620 / 1930 1310 / 1930 1080 / 1080 Weight 128 lb 8.472 oz 131 lb 13.383 oz Intake: IV 380 / 970 590 / 970 360 / 360 Oral 240 / 960 720 / 960 720 / 720 Other: Urine Color Yellow Yellow Urine Appearance Clear Urine Odor Normal Comment Voiding ad nasir; no hat. Pt denies sx. Reports minimal increase in frequency. Pt is 5weeks . pt voiding independently. Pt voiding ad nasir in toilet; no hat. Reports frequency (likely d/t ) but denies other sx. Voiding Methods Toilet Toilet Toilet Laboratory Results WBC 2.26 k/cumm (4.4-10.8) L 01/26/19 06:50 RBC 3.61 m/cumm (4.00-5.20) L 01/26/19 06:50 Hgb 9.2 g/dL (12.0-15.5) L 01/26/19 06:50 Hct 30.0 % (36.0-46.0) L 01/26/19 06:50 MCV 83.1 fL (80-95) 01/26/19 06:50 MCH 25.5 pg (27.0-33.0) L 01/26/19 06:50 MCHC 30.7 g/dL (32.0-36.0) L 01/26/19 06:50 RDW 14.7 % (11.7-14.6) H 01/26/19 06:50 Plt Count 181 x1000/uL (130-400) 01/26/19 06:50 MPV 11.0 fL (8.0-11.0) 01/26/19 06:50 Immature Gran % 0.4 01/26/19 06:50 Neutrophils % 59.3 01/26/19 06:50 Lymphocytes % 24.8 01/26/19 06:50 Monocytes % 11.9 01/26/19 06:50 Eosinophils % 2.7 01/26/19 06:50 Basophils % 0.9 01/26/19 06:50 Absolute Neutrophils 1.34 k/cumm (1.2-6.7) 01/26/19 06:50 Absolute Lymphocytes 0.56 k/cumm (1.2-3.4) L 01/26/19 06:50 Absolute Monocytes 0.27 k/cumm (0.11-0.7) 01/26/19 06:50 Absolute Eosinophils 0.06 k/cumm (0.0-0.7) 01/26/19 06:50 Absolute Basophils 0.02 k/cumm (0.0-0.2) 01/26/19 06:50 Differential Comment Diff reviewed 01/26/19 06:50 RBC Morphology See below 01/26/19 06:50 Polychromasia Present 01/25/19 06:50 Hypochromasia 1+ 01/26/19 06:50 Anisocytosis 2+ 01/25/19 06:50 PT 10.1 sec (9.3-11.0) 01/24/19 09:40 INR 1.0 (0.9-1.1) 01/24/19 09:40 APTT 25.2 sec (21.0-31.4) 01/24/19 09:40 Sodium 137 mmol/L (136-145) 01/26/19 06:50 Potassium 4.0 mmol/L (3.5-5.1) 01/26/19 06:50 Chloride 103 mmol/L (98-107) 01/26/19 06:50 Carbon Dioxide 25.9 mmol/L (21.0-32.0) 01/26/19 06:50 Anion Gap 8.1 mmol/L (3-11) 01/26/19 06:50 BUN 14 mg/dL (7-18) 01/26/19 06:50 Creatinine 0.77 mg/dL (0.55-1.02) 01/26/19 06:50 Estimated GFR/1.73 m2 >= 60.00 (mL/min/1.73m2) 01/26/19 06:50 Glucose 82 mg/dL (70-100) 01/26/19 06:50 Lactate 0.8 mmol/L (0.6-1.4) 01/24/19 09:40 Calcium 8.5 mg/dL (8.5-10.1) 01/26/19 06:50 Magnesium 1.9 mg/dL (1.8-2.4) 01/26/19 06:50 Total Bilirubin 0.3 mg/dL (0.2-1.0) 01/24/19 09:40 AST 27 U/L (15-37) 01/24/19 09:40 ALT 23 U/L (14-59) 01/24/19 09:40 Alkaline Phosphatase 86 U/L (46-116) 01/24/19 09:40 C-Reactive Protein 5.66 mg/dL (0.0-0.3) H 01/25/19 06:50 Total Protein 7.8 g/dL (6.4-8.2) 01/24/19 09:40 Albumin 3.0 g/dL (3.4-5.0) L 01/24/19 09:40 Beta HCG, Quant 4553 mIU/mL (1-3) H 01/24/19 10:15 Vancomycin Trough 20.6 ug/mL (10.0-20.0) H* 01/25/19 11:25 Patient ABO/Rh A Positive 01/24/19 10:15 Antibody Screen Negative 01/24/19 10:15
--- NOTE | 2019-01-26 11:53 | W.PM.PROGNOT ---
Date of Service Date of service: 01/26/19 Time of Service: 11:53 Assessment and Plan Assessment and plan (1) Cellulitis of left lower extremity: Start date: 01/26/19 Start time: 11:58 Status: Acute Assessment and plan: Cefepime and vanco day 3. Xray without osteomylitis, no septic joint no foreign body. Podiatry consulted to see tomorrow Will need IV antibiotics on discharge. Blood No Growth to date Possible discharge tomorrow or sunday with transition to infusion room (2) DVT, lower extremity, distal, acute: Start date: 01/26/19 Start time: 11:59 Status: Acute Assessment and plan: Apixaban dcd as patient is . Started on enoxaparin per OB recommendations. Will need to continue throughout . Has plan to abort baby, will continue to lovenox until then, in event is not terminated. Qualifiers: Laterality: left Qualified Code(s): I82.4Z2 - Acute embolism and thrombosis of unspecified deep veins of left distal lower extremity (3) Hx of hepatitis C: Start date: 01/26/19 Start time: 12:01 Status: Acute Assessment and plan: With undetectable viral load. (4) Osteomyelitis of right lower extremity: Start date: 01/26/19 Start time: 12:01 Status: Chronic Assessment and plan: With Right BKA and chronic infection. Currently being treated with Cefepime as an outpatient for a 6 week course. She is followed by [facility] orthopedics. Previously grew pseudomonas. No Growth to date at this time On vanco as well as cefepime. Will need to continue as outpatient in setting of (5) Chronic infection as complication of amputation: Start date: 01/26/19 Start time: 12:02 Status: Acute Assessment and plan: As above. (6) Hx of opioid abuse: Start date: 01/26/19 Start time: 12:02 Status: Chronic Assessment and plan: On suboxone through [facility]. (7) History of intravenous drug abuse: Start date: 01/26/19 Start time: 12:02 Status: Acute Assessment and plan: Reports last injected about one month ago, reports she injected in her arms, denies injection into left foot. However urine drug screen on 01/15 positive for cocaine Apparently retained needle however no diagnostics available to support this evidence at this time. (8) Acute on chronic anemia: Start date: 01/26/19 Start time: 12:03 Status: Acute Assessment and plan: Recent hospitalization for abnormal uterine bleeding with anemia. Currently with hgb of 9.5, denies current uterine bleeding. Monitor H&H. On enoxaparin for DVT (9) : Start date: 01/26/19 Start time: 12:03 Status: Acute Assessment and plan: Beta Hcg 4553. Unknown LMP. Plans to have therapeutic , [facility]. (10) Discharge planning issues: Start date: 01/26/19 Start time: 12:03 Status: Acute Assessment and plan: She is a full code. This case was discussed with Dr. Copeland who is in agreement. Subjective Subjective Patient reports: no new complaints Interval history since last seen: Improving. Erythema is receding. Edema improving. Discussed lovenox injections with patient. Possible transition to infusion room on discharge for BID antibiotics. Will see if injections can be done BID through infusion as well. U/S with OB today. Exam Narrative Exam Narrative: General: Awake, alert and oriented. Pleasant and cooperative. Answers questions appropriately. Does not appear to be in any acute distress. HEENT: Normocephalic, atraumatic, pupils equal and round, EOMI, mucous membranes moist, poor dentition. Neck: Supple, no JVD. Cardiovascular: Heart has regular rate and rhythm, non-tachycardic, soft murmur appreciated at the right sternal border. Respiratory: Respirations even and unlabored, lung sounds clear to auscultation throughout. Extremities: Left foot improving. Redness receding on top of foot to ankle. Leg receding erythema to 1[address] up to her knee, intensity less. Left great toe with what appears to be ulceration to the dorsal aspect. Right lower extremity with below the knee amputation, 2 open areas with thick yellow drainage. Objective Objective Clinical Data: Abnormal lab results 01/25/19 01/26/19 Range/Units 11:25 06:50 WBC 2.26 L (4.4-10.8) k/cumm RBC 3.61 L (4.00-5.20) m/cumm Hgb 9.2 L (12.0-15.5) g/dL Hct 30.0 L (36.0-46.0) % MCH 25.5 L (27.0-33.0) pg MCHC 30.7 L (32.0-36.0) g/dL RDW 14.7 H (11.7-14.6) % Absolute Lymphocytes 0.56 L (1.2-3.4) k/cumm Vancomycin Trough 20.6 H* (10.0-20.0) ug/mL Vital Signs Temperature 37 C 01/26/19 08:33 Temperature Source Tympanic 01/26/19 08:33 Pulse 75 01/26/19 08:33 Pulse Rhythm Regular 01/26/19 08:37 Respiratory Rate 16 01/26/19 08:33 Respiratory Effort Non-Labored 01/26/19 08:37 Respiratory Depth Normal 01/26/19 08:37 Respiratory Pattern Normal 01/26/19 08:37 Blood Pressure 99/63 L 01/26/19 08:33 Blood Pressure Mean 88 01/24/19 12:32 Blood Pressure Position Sitting 01/24/19 08:48 Pulse Oximetry 100 01/26/19 08:37 Oxygen Delivery Method Room Air 01/26/19 08:37 Oxygen Flow Rate 0 01/26/19 08:37 Pain Level 0 01/26/19 08:33 Comment 01/24/19 08:48 Intake & Output 01/25/19 01/25/19 01/26/19 11:59 23:59 11:59 Intake Total 620 / 1930 1310 / 1930 1080 / 1080 Balance 620 / 1930 1310 / 1930 1080 / 1080 Weight 58.3 kg 59.8 kg Intake: IV 380 / 970 590 / 970 360 / 360 Oral 240 / 960 720 / 960 720 / 720 Other: Urine Color Yellow Yellow Urine Appearance Clear Urine Odor Normal Comment Voiding ad nasir; no hat. Pt denies sx. Reports minimal increase in frequency. Pt is 5weeks . pt voiding independently. Pt voiding ad nasir in toilet; no hat. Reports frequency (likely d/t ) but denies other sx. Voiding Methods Toilet Toilet Toilet Laboratory Results WBC 2.26 k/cumm (4.4-10.8) L 01/26/19 06:50 RBC 3.61 m/cumm (4.00-5.20) L 01/26/19 06:50 Hgb 9.2 g/dL (12.0-15.5) L 01/26/19 06:50 Hct 30.0 % (36.0-46.0) L 01/26/19 06:50 MCV 83.1 fL (80-95) 01/26/19 06:50 MCH 25.5 pg (27.0-33.0) L 01/26/19 06:50 MCHC 30.7 g/dL (32.0-36.0) L 01/26/19 06:50 RDW 14.7 % (11.7-14.6) H 01/26/19 06:50 Plt Count 181 x1000/uL (130-400) 01/26/19 06:50 MPV 11.0 fL (8.0-11.0) 01/26/19 06:50 Immature Gran % 0.4 01/26/19 06:50 Neutrophils % 59.3 01/26/19 06:50 Lymphocytes % 24.8 01/26/19 06:50 Monocytes % 11.9 01/26/19 06:50 Eosinophils % 2.7 01/26/19 06:50 Basophils % 0.9 01/26/19 06:50 Absolute Neutrophils 1.34 k/cumm (1.2-6.7) 01/26/19 06:50 Absolute Lymphocytes 0.56 k/cumm (1.2-3.4) L 01/26/19 06:50 Absolute Monocytes 0.27 k/cumm (0.11-0.7) 01/26/19 06:50 Absolute Eosinophils 0.06 k/cumm (0.0-0.7) 01/26/19 06:50 Absolute Basophils 0.02 k/cumm (0.0-0.2) 01/26/19 06:50 Differential Comment Diff reviewed 01/26/19 06:50 RBC Morphology See below 01/26/19 06:50 Polychromasia Present 01/25/19 06:50 Hypochromasia 1+ 01/26/19 06:50 Anisocytosis 2+ 01/25/19 06:50 PT 10.1 sec (9.3-11.0) 01/24/19 09:40 INR 1.0 (0.9-1.1) 01/24/19 09:40 APTT 25.2 sec (21.0-31.4) 01/24/19 09:40 Sodium 137 mmol/L (136-145) 01/26/19 06:50 Potassium 4.0 mmol/L (3.5-5.1) 01/26/19 06:50 Chloride 103 mmol/L (98-107) 01/26/19 06:50 Carbon Dioxide 25.9 mmol/L (21.0-32.0) 01/26/19 06:50 Anion Gap 8.1 mmol/L (3-11) 01/26/19 06:50 BUN 14 mg/dL (7-18) 01/26/19 06:50 Creatinine 0.77 mg/dL (0.55-1.02) 01/26/19 06:50 Estimated GFR/1.73 m2 >= 60.00 (mL/min/1.73m2) 01/26/19 06:50 Glucose 82 mg/dL (70-100) 01/26/19 06:50 Lactate 0.8 mmol/L (0.6-1.4) 01/24/19 09:40 Calcium 8.5 mg/dL (8.5-10.1) 01/26/19 06:50 Magnesium 1.9 mg/dL (1.8-2.4) 01/26/19 06:50 Total Bilirubin 0.3 mg/dL (0.2-1.0) 01/24/19 09:40 AST 27 U/L (15-37) 01/24/19 09:40 ALT 23 U/L (14-59) 01/24/19 09:40 Alkaline Phosphatase 86 U/L (46-116) 01/24/19 09:40 C-Reactive Protein 5.66 mg/dL (0.0-0.3) H 01/25/19 06:50 Total Protein 7.8 g/dL (6.4-8.2) 01/24/19 09:40 Albumin 3.0 g/dL (3.4-5.0) L 01/24/19 09:40 Beta HCG, Quant 4553 mIU/mL (1-3) H 01/24/19 10:15 Vancomycin Trough 20.6 ug/mL (10.0-20.0) H* 01/25/19 11:25 Patient ABO/Rh A Positive 01/24/19 10:15 Antibody Screen Negative 01/24/19 10:15
[2019-01-26] MEDS: Enoxaparin 60 MG/0.6 ML SYR SC ×2 (12:02→23:34)
--- NOTE | 2019-01-26 15:34 | PDOC.CMPRO ---
- If Service Date Differs Date of service: 01/26/19 Time of Service: 15:34 Care Management Progress Note S/O: Lindsay is sitting up in bed she had just met with OBGYN to assess and fetus. (see provider note). Lindsay feels she is doing better she anticipates she will be discharged in the next 48 hours. She states that the redness on her left foot has improved and that it is feeling better. She will need to be on SC Lovenox which she will do in addition to her IV abx through the infusion room BID. She states she uses RCT in the mornings and then her Mom transports her in the evenings. Lindsay states she has a lot of stresses however feels she is getting through them with support. She states her Mom is helpful. CM to continue to provide support anticipate once her Vancomycin is timed appropriately to BID she will be discharged home. A: Lindsay is a 38 year old female admitted with LLE celluilitis P:Lindsay will be discharged when medically ready. Lindsay will likely remain on IV Vancomycin BID as an outpatient infusion room and BID Lovenox injections. CM to continue to provide support and resources discharging planning and disposition.
[2019-01-26] MEDS: traZODone 50 MG TAB PO (21:39)
[2019-01-26] MEDS: Gabapentin 400 MG CAP 1200 MG PO (21:39)
[2019-01-26] MEDS: Polyethylene Glycol 3350 17 GM PACKET PO (21:39)
[2019-01-27 04:00] VITALS: BP 95/59; PULSE 71; RESP 16; TEMP 37; O2SAT 97
[2019-01-27] MEDS: diphenhydrAMINE 25 MG CAP PO ×2 (04:00→09:45)
[2019-01-27] MEDS: CEFEPIME 2 GM in Normal Saline 100 ML IVPB ×2 (05:48→17:02)
[2019-01-27] MEDS: Normal Saline Flush 10 ML SYR IVP ×4 (05:49→16:15)
[2019-01-27] MEDS: Acetaminophen 500 MG TAB 1000 MG PO (07:27)
[2019-01-27] MEDS: Buprenorphine/Naloxone 12 mg/3 mg FILM 1 EACH SL (07:27)
[2019-01-27] MEDS: Gabapentin 600 MG TAB PO ×2 (07:27→14:23)
[2019-01-27 07:29] VITALS: BP 85/57; PULSE 76; RESP 16; TEMP 37.2; O2SAT 97
[2019-01-27] MEDS: Clotrimazole/Betamet Diprop Cream 15 GM TUBE TP (08:13)
[2019-01-27 08:15] VITALS: O2SAT 97
[2019-01-27 11:37] VITALS: BP 93/58; PULSE 68; RESP 17; TEMP 36.1; O2SAT 98
[2019-01-27] MEDS: Enoxaparin 60 MG/0.6 ML SYR SC (11:40)
--- NOTE | 2019-01-27 12:51 | PGE_ITS ---
Date of Service Date of service: 01/27/19 Time of Service: 12:51 Assessment and Plan Assessment and plan (1) Cellulitis of left lower extremity: Start date: 01/27/19 Start time: 12:57 Status: Acute Assessment and plan: Cefepime and vanco day 4. Afebrile, NO leukocytosis. Xray without osteomylitis, no septic joint no foreign body. Podiatry consulted to see tomorrow Will need IV antibiotics on discharge. Blood No Growth to date after 72 hours Possible discharge Sunday with transition to infusion room (2) DVT, lower extremity, distal, acute: Start date: 01/27/19 Start time: 12:58 Status: Acute Assessment and plan: Apixaban dcd as patient is . Started on enoxaparin per OB recommendations. Will need to continue throughout . Has plan to abort baby, will continue to lovenox until then, in event is not terminated. Qualifiers: Laterality: left Qualified Code(s): I82.4Z2 - Acute embolism and thrombosis of unspecified deep veins of left distal lower extremity (3) Hx of hepatitis C: Start date: 01/27/19 Start time: 12:58 Status: Acute Assessment and plan: With undetectable viral load. (4) Osteomyelitis of right lower extremity: Start date: 01/27/19 Start time: 12:58 Status: Chronic Assessment and plan: With Right BKA and chronic infection. Currently being treated with Cefepime as an outpatient for a 6 week course. She is followed by [facility] orthoped[facility]. Previously grew pseudomonas. No Growth to date at this time On vanco as well as cefepime. Will need to continue as outpatient in setting of (5) Chronic infection as complication of amputation: Start date: 01/27/19 Start time: 12:58 Status: Acute Assessment and plan: As above. (6) Hx of opioid abuse: Start date: 01/27/19 Start time: 12:58 Status: Chronic Assessment and plan: On suboxone through [facility]. (7) History of intravenous drug abuse: Start date: 01/27/19 Start time: 12:58 Status: Acute Assessment and plan: Reports last injected about one month ago, reports she injected in her arms, denies injection into left foot. However urine drug screen on 01/15 positive for cocaine Retained needle left lower extremity, previous surgery to retain foreign body was not successful done at [facility] [place] (8) Acute on chronic anemia: Start date: 01/27/19 Start time: 13:00 Status: Acute Assessment and plan: Recent hospitalization for abnormal uterine bleeding with anemia. Currently with hgb of 9.5, denies current uterine bleeding. Monitor H&H. On enoxaparin for DVT (9) : Start date: 01/27/19 Start time: 13:00 Status: Acute Assessment and plan: Beta Hcg 4553. Unknown LMP. Plans to have therapeutic , [facility]. Qualifiers: Weeks of gestation: less than 8 weeks Qualified Code(s): Z3A.01 - Less than 8 weeks gestation of (10) Discharge planning issues: Start date: 01/27/19 Start time: 13:00 Status: Acute Assessment and plan: She is a full code. This case was discussed with Dr. Copeland who is in agreement. Subjective Subjective Patient reports: no new complaints Interval history since last seen: Dr. Gonsalez to see patient. RLE is improving. Color is more pink then red. Not as warm to touch. Edema continues. Afebrile. Davide samuel has a follow up for outpatient u/s. Will need lovenox injections until aborted. Consider d/c tomorrow with infusions in the infusion room. She denies N/V/D, Cp, SOB Exam Narrative Exam Narrative: General: Awake, alert and oriented. Pleasant and cooperative. Answers questions appropriately. Does not appear to be in any acute distress. HEENT: Normocephalic, atraumatic, pupils equal and round, EOMI, mucous membranes moist, poor dentition. Neck: Supple, no JVD. Cardiovascular: Heart has regular rate and rhythm, non-tachycardic, soft murmur appreciated at the right sternal border. Respiratory: Respirations even and unlabored, lung sounds clear to auscultation throughout. Extremities: Left foot improving. [place] receding on top of foot to ankle and receding. Leg receding erythema to less than 1/[address] up to her knee, intensity less. Left great toe with what appears to be ulceration to the dorsal aspect. Right lower extremity with below the knee amputation, 2 open areas with thick yellow drainage. Objective Objective Clinical Data: Vital Signs Temperature 37.2 C 01/27/19 07:29 Temperature Source Tympanic 01/27/19 07:29 Pulse 76 01/27/19 07:29 Pulse Rhythm Regular 01/27/19 08:15 Respiratory Rate 16 01/27/19 07:29 Respiratory Effort Non-Labored 01/27/19 08:15 Respiratory Depth Normal 01/27/19 08:15 Respiratory Pattern Normal 01/27/19 08:15 Blood Pressure 85/57 L 01/27/19 07:29 Blood Pressure Mean 88 01/24/19 12:32 Blood Pressure Position Sitting 01/24/19 08:48 Pulse Oximetry 97 01/27/19 08:15 Oxygen Delivery Method Room Air 01/27/19 08:15 Oxygen Flow Rate 0 01/27/19 08:15 Pain Level 0 01/27/19 07:29 Comment 01/27/19 07:29 Intake & Output 01/26/19 01/27/19 01/27/19 23:59 11:59 23:59 Intake Total 1490 / 2570 1100 / 1100 Balance 1490 / 2570 1100 / 1100 Weight 60.3 kg Intake: IV 560 / 920 420 / 420 Oral 930 / 1650 680 / 680 Other: Comment pt voiding independently. reports seeing blood in toilet after voiding occassionally. Pt voiding ad nasir in toilet. Report of blood in toilet following voids to prior nurse. No report to this RN at this time. Urine not seen at time of assessment; pt denies sx other than frequency. Voiding Methods Toilet Toilet Laboratory Results WBC 2.26 k/cumm (4.4-10.8) L 01/26/19 06:50 RBC 3.61 m/cumm (4.00-5.20) L 01/26/19 06:50 Hgb 9.2 g/dL (12.0-15.5) L 01/26/19 06:50 Hct 30.0 % (36.0-46.0) L 01/26/19 06:50 MCV 83.1 fL (80-95) 01/26/19 06:50 MCH 25.5 pg (27.0-33.0) L 01/26/19 06:50 MCHC 30.7 g/dL (32.0-36.0) L 01/26/19 06:50 RDW 14.7 % (11.7-14.6) H 01/26/19 06:50 Plt Count 181 x1000/uL (130-400) 01/26/19 06:50 MPV 11.0 fL (8.0-11.0) 01/26/19 06:50 Immature Gran % 0.4 01/26/19 06:50 Neutrophils % 59.3 01/26/19 06:50 Lymphocytes % 24.8 01/26/19 06:50 Monocytes % 11.9 01/26/19 06:50 Eosinophils % 2.7 01/26/19 06:50 Basophils % 0.9 01/26/19 06:50 Absolute Neutrophils 1.34 k/cumm (1.2-6.7) 01/26/19 06:50 Absolute Lymphocytes 0.56 k/cumm (1.2-3.4) L 01/26/19 06:50 Absolute Monocytes 0.27 k/cumm (0.11-0.7) 01/26/19 06:50 Absolute Eosinophils 0.06 k/cumm (0.0-0.7) 01/26/19 06:50 Absolute Basophils 0.02 k/cumm (0.0-0.2) 01/26/19 06:50 Differential Comment Diff reviewed 01/26/19 06:50 RBC Morphology See below 01/26/19 06:50 Polychromasia Present 01/25/19 06:50 Hypochromasia 1+ 01/26/19 06:50 Anisocytosis 2+ 01/25/19 06:50 PT 10.1 sec (9.3-11.0) 01/24/19 09:40 INR 1.0 (0.9-1.1) 01/24/19 09:40 APTT 25.2 sec (21.0-31.4) 01/24/19 09:40 Sodium 137 mmol/L (136-145) 01/26/19 06:50 Potassium 4.0 mmol/L (3.5-5.1) 01/26/19 06:50 Chloride 103 mmol/L (98-107) 01/26/19 06:50 Carbon Dioxide 25.9 mmol/L (21.0-32.0) 01/26/19 06:50 Anion Gap 8.1 mmol/L (3-11) 01/26/19 06:50 BUN 14 mg/dL (7-18) 01/26/19 06:50 Creatinine 0.77 mg/dL (0.55-1.02) 01/26/19 06:50 Estimated GFR/1.73 m2 >= 60.00 (mL/min/1.73m2) 01/26/19 06:50 Glucose 82 mg/dL (70-100) 01/26/19 06:50 Lactate 0.8 mmol/L (0.6-1.4) 01/24/19 09:40 Calcium 8.5 mg/dL (8.5-10.1) 01/26/19 06:50 Magnesium 1.9 mg/dL (1.8-2.4) 01/26/19 06:50 Total Bilirubin 0.3 mg/dL (0.2-1.0) 01/24/19 09:40 AST 27 U/L (15-37) 01/24/19 09:40 ALT 23 U/L (14-59) 01/24/19 09:40 Alkaline Phosphatase 86 U/L (46-116) 01/24/19 09:40 C-Reactive Protein 5.66 mg/dL (0.0-0.3) H 01/25/19 06:50 Total Protein 7.8 g/dL (6.4-8.2) 01/24/19 09:40 Albumin 3.0 g/dL (3.4-5.0) L 01/24/19 09:40 Beta HCG, Quant 4553 mIU/mL (1-3) H 01/24/19 10:15 Vancomycin Trough 20.6 ug/mL (10.0-20.0) H* 01/25/19 11:25 Patient ABO/Rh A Positive 01/24/19 10:15 Antibody Screen Negative 01/24/19 10:15
--- NOTE | 2019-01-27 14:28 | CHAPLAIN ---
I had a short conversation with Lindsay, introduced myself, explained my role and offered support.
--- NOTE | 2019-01-27 14:50 | W.DIABETESNO ---
Date of service: 01/27/19 Time of Service: 14:50 Diabetes Note NOTE: Appreciate diabetes consult for Lindsay Odonnell who is hospitalized with cellulitis in . She has no abnormal blood sugars evident and no A1c. It is unclear if she has diabetes at this time. Will follow up as needed based on blood sugar result or patient's assessed needs. Time Spent in Nutritional Counseling and Treatment: 0
[2019-01-27] MEDS: Alteplase 2 MG VIAL IJ (14:54)
--- NOTE | 2019-01-27 15:12 | DSE_ITS ---
Date of service: 01/27/19 Time of Service: 15:13 DS: Diagnosis Discharge Diagnosis (1) Cellulitis of left lower extremity: Start date: 01/27/19 Start time: 15:13 Status: Acute Asessment and Plan: Improving outpatient infusion for vancomycin x 14 day course and cefepime. Follow up with Dr. Gonsalez on 01/30/2019 at 1 pm, if Dr. Gonsalez feels she needs more time with antibiotics then she will continue a longer course. (2) DVT, lower extremity, distal, acute: Start date: 01/27/19 Start time: 15:15 Status: Acute Asessment and Plan: Will receive lovenox injections in am and pm at infusion clinic with infusions. (3) Hx of hepatitis C: Status: Acute (4) Osteomyelitis of right lower extremity: Status: Chronic (5) Chronic infection as complication of amputation: Status: Acute (6) Hx of opioid abuse: Status: Chronic (7) History of intravenous drug abuse: Status: Acute (8) Acute on chronic anemia: Status: Acute (9) : Start date: 01/27/19 Start time: 15:16 Status: Acute Asessment and Plan: Approx 5-6 weeks , follow up for U/S with possible . (10) Discharge planning issues: Status: Acute Discharge Plan Disposition Patient Disposition: HOME Condition: Improving Discharge Details Chief Complaint: Cellulitis Clinical Impression: Cellulitis Reason For Visit: LLE CELLULITIS Admit Date/Time: 01/24/19 14:18 Admit Provider: Natalia Belcher Attending Provider: Natalia Belcher Primary Care Provider: Ratna Olivas ED Provider: Maggie Armenta Hospital Course Hospital Course: 38 y.o Female with complicated Medical history significant for Hepatitis C with undetectable viral load, history of IVDA, reports last injected in her arms about 1 month ago, denies injection in her LLE. However urine drug screen reveals cocaine use on 01/15. 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 She was admitted from [facility] Emergency department for cellulitis of LLE. Over the course of her stay she received vancomycin with positive results in first 24 hours. Foot xray obtained showed no osteo or septic joint and no foreign object. Erythema is pink and receding localizing to top of foot and proximal aspect of foot. Edema is improving. She does have an ulceration to left great toe which will be followed up with as an outpatient with Dr. Gonsalez on 01/30 at 1 pm. Her CRP has trended down from 7.91 to 5. 66. Blood cultures negative at 72 hours. Repeat CRP, CBC and BMP in 5 days. She was found to have a positive test in the emergency department. She takes eliquis for DVT found on 09/2018, she was transitioned to lovenox subcu BID and will receive injections in the infusion room. Echo on LLE with no new DVT. She has mentioned a theraputic . Until then she will need to remain on lovenox and switch back to eliquis per recommendation of OB post . She denies CP, SOB, N/V/D. She is feeling better today. Her wound is receding and no longer red. There is pink erythema to a localized area on proximal of foot. She is afebrile and will be discharged home after this evening infusion of antibiotics with a follow up for infusion in the morning. Home Meds and New Rx's Prescriptions: New vancomycin in 0.9 % sodium chl 1.5 gram/250 mL solution 1 gm IV Q12H Qty: 5000 RF: 0 enoxaparin 60 mg/0.6 mL syringe 60 mg SC Q12H Qty: 6 RF: 0 cefepime in dextrose 5 % 2 gram/50 mL piggyback 2 gm IV Q12H Qty: 24 RF: 0 Continued Buprenorphine/Naloxone [Suboxone 12 MG-3 MG SL FILM] 1 EACH Film 1 unit PO DAILY RF: 0 methocarbamol 500 mg Tablet 500 mg PO QID PRNRF: 0 gabapentin 600 mg Tablet 600 mg PO TID RF: 0 trazodone 50 mg Tablet 50 mg PO QHS RF: 0 clotrimazole-betameth dip-zinc 1-0.05-20 % combo pack See Rx Instructions .ROUTE .COMPLEX Qty: 135 RF: 0 cefepime 2 gram Recon Soln 2 g BID RF: 0 Discontinued Eliquis 5 mg Tablet 10 mg PO BID RF: 0 ibuprofen 600 mg Tablet 600 mg PO PRN PRNRF: 0 Discharge Instructions Instructions: Enoxaparin (Injection), Cellulitis (GEN), Deep Venous Thrombosis (GEN) Additional Instructions: Follow up with the transfusion center in the am for antibiotics Repeat lab work in 5 days Continue lovenox until seen by OB Continue IV Vancomycin antibiotics for at least 10 more days, unless otherwise directed by Dr. Gonsalez. Follow up with DR. GONSALEZ ON SundayJANUARY 30 at 1 pm. Seek medical treatment immediately if you have fever, chills, chest pain, shortness of breath, N/V/D Stand Alone Forms: Nursing Discharge Form Referrals: Nicanor Gonsalez DPM [[facility] STAFF PHYSICIAN] - 01/30/19 1:00 pm Activity:: Activity as Tolerated Equipment/Supplies:: No Equipment Needed Diet:: As Tolerated Discharge Orders Discharge Orders: Discharge Order (Routine); Ordered 01/27/19 Ordered By: Viviane Tang Other Ambulatory Orders: Basic Metabolic Panel (Routine) Location: None Selected Ordered By: Viviane Tang Complete Blood Count w/Diff (Routine) Location: None Selected Ordered By: Viviane Tang C-Reactive Protein (Routine) Location: None Selected Ordered By: Viviane Tang DS: Summary Status at Discharge Functional status at discharge: independent ambulation Overall status at discharge: patient is progressing back to baseline Mental Status: mental status grossly normal Speech and Movement: speech and movement normal Mood: congruent mood Affect: normal affect Exam Narrative Exam Narrative: General: Awake, alert and oriented. Pleasant and cooperative. Answers questions appropriately. Does not appear to be in any acute distress. HEENT: Normocephalic, atraumatic, pupils equal and round, EOMI, mucous membranes moist, poor dentition. Neck: Supple, no JVD. Cardiovascular: Heart has regular rate and rhythm, non-tachycardic, soft murmur appreciated at the right sternal border. Respiratory: Respirations even and unlabored, lung sounds clear to auscultation throughout. Extremities: Left foot improving. [place] receding on top of foot to ankle and receding. Leg receding erythema to less than 1[address] to her knee, intensity less. Left great toe with what appears to be ulceration to the dorsal aspect. Right lower extremity with below the knee amputation, 2 open areas with thick yellow drainage. Psych Mental Status: mental status grossly normal Speech and Movement: speech and movement normal Mood: congruent mood Affect: normal affect DS: Data Vitals/I&O Vitals and I&O: Vital Signs Temperature 36.1 C L 01/27/19 11:37 Temperature Source Tympanic 01/27/19 11:37 Pulse 68 01/27/19 11:37 Pulse Rhythm Regular 01/27/19 08:15 Respiratory Rate 17 01/27/19 11:37 Respiratory Effort Non-Labored 01/27/19 08:15 Respiratory Depth Normal 01/27/19 08:15 Respiratory Pattern Normal 01/27/19 08:15 Blood Pressure 93/58 L 01/27/19 11:37 Blood Pressure Mean 88 01/24/19 12:32 Blood Pressure Position Sitting 01/24/19 08:48 Pulse Oximetry 98 01/27/19 11:37 Oxygen Delivery Method Room Air 01/27/19 11:37 Oxygen Flow Rate 0 01/27/19 11:37 Pain Level 0 01/27/19 07:29 Comment 01/27/19 07:29 Intake & Output 01/26/19 01/27/19 01/27/19 23:59 11:59 23:59 Intake Total 1490 / 2570 1350 / 1350 Balance 1490 / 2570 1350 / 1350 Weight 60.3 kg Intake: IV 560 / 920 670 / 670 Oral 930 / 1650 680 / 680 Other: Comment pt voiding independently. reports seeing blood in toilet after voiding occassionally. Pt voiding ad nasir in toilet. Report of blood in toilet following voids to prior nurse. No report to this RN at this time. Urine not seen at time of assessment; pt denies sx other than frequency. Voiding Methods Toilet Toilet Data Completed and Pending Completed studies during hospitalization [Text1]: Exam(s) a RAD:XR foot LT complete EXAM: XR FOOT LT COMPLETE CLINICAL HISTORY: redness and swelling,?osteomyelitis. TECHNIQUE: 2D digital imaging was performed. COMPARISON: No exams were available for comparison FINDINGS: BONES: No acute fracture is present. No bony destructive lesion is seen. JOINTS: No dislocation present. SOFT TISSUE: There is mild soft tissue swelling seen in the forefoot. No radiopaque foreign bodies are present. IMPRESSION: There are no radiographic findings to suggest osteomyelitis or septic joint. Soft tissue swelling in the forefoot. Exam(s) a US:US lower extremity venous LT EXAM: US LOWER EXTREMITY VENOUS LT CLINICAL HISTORY: Left lower leg swelling, cellulitis, r/o DVT. TECHNIQUE: Ultrasound performed using standard protocol. FINDINGS: Duplex venous ultrasound left lower extremity was performed according to the usual protocol. There is an area of contour abnormality with linear echoes in the femoral vein which shows fairly normal color flow. The findings are consistent with old thrombus. No evidence of acute thrombus in the region surveyed. 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 No evidence of acute thrombus. No evidence of occlusion. Labs on day of discharge: Labs from last 24 hours 01/27/19 01/27/19 05:35 05:35 WBC Pending RBC Pending Hgb Pending Hct Pending MCV Pending MCH Pending MCHC Pending RDW Pending Plt Count Pending MPV Pending Immature Gran % Pending Neutrophils % Pending Lymphocytes % Pending Monocytes % Pending Eosinophils % Pending Basophils % Pending Absolute Neutrophils Pending Absolute Lymphocytes Pending Absolute Monocytes Pending Absolute Eosinophils Pending Absolute Basophils Pending Sodium Pending Potassium Pending Chloride Pending Carbon Dioxide Pending Anion Gap Pending BUN Pending Creatinine Pending Estimated GFR/1.73 m2 Pending Glucose Pending Calcium Pending Magnesium Pending Preliminary micro results at discharge 01/24/19 10:15 Blood Culture - Preliminary Blood NO GROWTH 72 HOURS 01/24/19 09:40 Blood Culture - Preliminary Blood NO GROWTH 72 HOURS 01/25/19 12:00 Wound Culture - Preliminary Toe - Left Big Toe Gram Positive Promise Normal Pormise 01/25/19 13:06 Wound Culture - Preliminary Leg - Right [facility] Medical History Abnormal uterine bleeding (AUB) (Acute) On. Set 10/24/2018 heavy flow coinciding with initiation of Eliquis DVT, lower extremity, distal, acute (Acute) 10/24 2018 left lower extremity. Rx with Eliquis. Endometriosis (Chronic) Hx of hepatitis C (Acute) AB +. No viral load. Hx of opioid abuse (Chronic) Currently in treatment at [facility]. Suboxone. Normocytic hypochromic anemia (Acute) 10/26/2018 hemoglobin 8.2 MCV 83 Raynaud disease (Chronic) Sciatic pain (Chronic) Surgical History Complete below knee amputation of right lower extremity (Acute) 2018. 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 [facility]. 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 H/O hand surgery (Chronic) contracted post-op History of transesophageal echocardiography (YG) (Chronic) negative Retained foreign body (Chronic) L groin, s/p unsuccessful exploratory surgery Family History Father Diabetes Paternal Grandfather Diabetes Paternal Aunt Diabetes Maternal Grandmother Breast cancer Maternal Aunt Multiple sclerosis Social History Smoking/Tobacco Use Status: Never Alcohol Intake: never Drug use: Current Sobriety Substance use type: former substance user, crack/cocaine, heroin and methamphetamine Details: former cocaine (snorted, smoked, IV) and heroin use (IV), as well as crystal meth (IV). Patient is currently enrolled at [facility], on suboxone Household members: children and other Details: Patient resides at her sister's house with her daughter Number of Children: 1 current occupation: Unemployed Do you feel safe at home: Yes Do you feel safe in your relationship?: Yes Additional Social history: Ambulates with crutches - 2 falls recently
[2019-01-27 15:56] VITALS: BP 104/61; PULSE 77; RESP 16; TEMP 36.9; O2SAT 100
[2019-01-27 15:56] LABS: Abs Immature Grans 0.02 k/cumm (0.0-0.09); Absolute Basophil Count 0.01 k/cumm (0.0-0.2); Absolute Eosinophil Count 0.06 k/cumm (0.0-0.7); Absolute Lymphocyte Count 0.64 k/cumm (1.2-3.4); Absolute Monocyte Count 0.34 k/cumm (0.11-0.7); Absolute Neutrophil Count 1.51 k/cumm (1.2-6.7); Basophils % 0.4; Eosinophils % 2.3; HCT 29.3 % (36.0-46.0); HGB 9.1 g/dL (12.0-15.5); Immature Grans % 0.8; Lymphocytes % 24.8; Mean Corp. HGB Concentration 31.1 g/dL (32.0-36.0); Mean Corpuscular Hemoglobin 25.9 pg (27.0-33.0); Mean Corpuscular Volume 83.5 fL (80-95); Mean Platelet Volume 10.4 fL (8.0-11.0); Monocytes % 13.2; Neutrophils % 58.5; Platelet Count 187 x1000/uL (130-400); RBC 3.51 m/cumm (4.00-5.20); RBC Distribution Width 14.8 % (11.7-14.6); White Blood Cell Count 2.58 k/cumm (4.4-10.8)
[2019-01-27 16:05] LABS: Anion Gap 5.7 mmol/L (3-11); BUN 18 mg/dL (7-18); CO2 30.3 mmol/L (21.0-32.0); CREATININE 0.84 mg/dL (0.55-1.02); Calcium 8.4 mg/dL (8.5-10.1); Chloride 102 mmol/L (98-107); Glucose 104 mg/dL (70-100); Potassium 4.2 mmol/L (3.5-5.1); Sodium 138 mmol/L (136-145)
[2019-01-27 16:22] LABS: Anisocytosis 1+; Basophilic Stippling Present; Diff Comment RBC Morph Reviewed; Microcytosis 1+
--- NOTE | 2019-01-27 16:25 | CMDISCH_ITS ---
LACE Index Scoring Tool - Questions: Length of Stay (in days): 3 Acuity (Admit via E.D.?): Yes Comorbidities: Liver or Renal Disease E.D. Visits: 3 - Answers: Total Score: 14 Risk of Readmission: High Risk Care Management Discharge Reason for Hospitalization: LLE cellulitis Discharge Plan: Lindsay will be discharged when medically ready. She will remain on IV Vancomycin BID, attending the outpatient infusion room and BID Lovenox injections. She will transport via private vehicle with family. Patient/Family Education Needs: Review of discharge instructions, discuss Ask Me Three. Services Needed at Discharge: Infusion Therapy ([facility] Infusion Room)
== END 2019-01-27 18:00 | disposition home or self-care (01) | DRG 603 ==
LOC: ER 14:41 → MS 15:54
PROVIDERS: Nurse Practitioner; Admitting Provider Internal Medicine; Emergency Provider Physician Assistant; PCP Family Medicine; Visit Provider Internal Medicine
DX: L03.116 Cellulitis of left lower limb (principal); I82.512 Chronic embolism and thrombosis of left femoral vein; T87.43 Infection of amputation stump, right lower extremity; M86.8X6 Other osteomyelitis, lower leg; F11.20 Opioid dependence, uncomplicated; L97.529 Non-pressure chronic ulcer of other part of left foot with unspecified severity; Z79.01 Long term (current) use of anticoagulants; Z86.19 Personal history of other infectious and parasitic diseases; Z79.2 Long term (current) use of antibiotics; D50.9 Iron deficiency anemia, unspecified; Z33.1 Pregnant state, incidental; Z45.2 Encounter for adjustment and management of vascular access device; F14.10 Cocaine abuse, uncomplicated; Z71.3 Dietary counseling and surveillance
CPT/HCPCS: 36415; 80048; 80053; 86850; 86900; 86901; 87040; 87077; 96365; 99222; 99231; 99233; 99239; 99285; 73630; 80202; 83605; 83735; 84702; 85025; 85610; 85730; 86140; 87070; 87186; 87205; 93971; 99284; J1200; J1650; J2997; J3370

== ENCOUNTER 2019-01-27 01:39 | Outpatient (RCR) | payer MEDICAID, SELFPAY ==
[2018-12-29] MEDS: CEFEPIME 2 GM in Normal Saline 100 ML IVPB ×2 (11:47→22:08)
[2018-12-29] MEDS: Normal Saline Flush 10 ML SYR IVP ×2 (12:00→22:00)
[2018-12-30] MEDS: Normal Saline Flush 10 ML SYR IVP ×2 (10:45→20:00)
[2018-12-30] MEDS: CEFEPIME 2 GM in Normal Saline 100 ML IVPB ×2 (10:56→20:09)
--- NOTE | 2018-12-31 08:00 | OPPNE_ITS ---
Date of service: 12/31/18 Time of Service: 10:59 Procedure Note Date of procedure: 12/31/18 Procedure: Right Subclavian Central line Surgeon/Proceduralist/Physician: Karen Mcdonnell Procedure Diagnosis: need for IV access Procedure Indications: Mrs. Odonnell is a 38 year old female with a PMHx significant for IV drug abuse now on Suboxone who underwent a right below knee amputation secondary to an infected large ulcer. Her wound is now infected with pseudomonas. She is followed by ID and General Surgery at [facility]. They have asked for patient to get 6 weeks of IV antibiotics. Due to her previous IV drug abuse she has poor peripheral IV access. PICC line was recommended but they were unable to place so I was asked to place a Central line on the patient. If the infection is not cleared the patient will require a revision from a below knee amputation to an above knee amputation. I do not like leaving central lines in patient with an IV drug abuse history, but patient has few other options at this time to try and salvage her amputation. Long discussion with patient about danger of doing any IV drugs through the central line as this could lead to . Risks of the procedure were also discuss. These include Pneumothorax, injury to artery or veins and blood clot. Questions were entertained and answered to her staisfaction and she wished to proceed. Procedure Description: After informed consent was obtained the patient was placed in a supine position on the bed. The head of the bed was lowered. A time out was done and her name, and procedure to be done were reviewed. Sharps were counted. The right chest wall and neck was then prepped and draped in a standard fashion with chlorhexidine. Next 5 cc of 1% Lidocaine was injected into the dermis and subcutaneous tissue along the right clavicle. The introducer needle was then slowly advanced into the subclavian vein. Once I was able to pull venous blood into the syringe, the syringe was removed from the needle. The guidewire was then placed easily without resistance into the subclavian vein. The needle was removed. A small incision was made with an 11 blade next to the guidewire. The dilator was then placed over the guidewire into the vein. The dilator was removed and the tripple lumen catheter was placed over the guidewire into the vein to 15 cm. The guidewire was removed and valves were placed on each lumen. Each lumen was then aspirated and flushed with sterile saline. The Central line was then secured in place with 2-0 silk suture. The skin was cleaned and dried and an antibiotic wheel was applied at the skin entrance. An occlusive dressing was then applied. The drapes were removed. Sharps were counted and were correct at the end of the procedure. The patient tolerated the procedure well. Stat CXR was ordered and was pending at the time of this dictation. cc: CATERINA HOSKINS, MEL
[2018-12-31] MEDS: CEFEPIME 2 GM in Normal Saline 100 ML IVPB ×2 (09:10→20:35)
--- NOTE | 2018-12-31 10:51 | DI.RAD_ITS ---
SYMPTOM/DIAGNOSIS: POST CENTRAL LINE INSERTION. PORTABLE CHEST: There are no prior comparison exams. A central line has been inserted via the right subclavian. The tip lies in the SVC. There is no evidence of pneumothorax. No infiltrate or effusion is seen. IMPRESSION: Satisfactory port placement of central line. There is no evidence of effusion or infiltrates.
[2018-12-31] MEDS: Normal Saline Flush 10 ML SYR IVP (11:00)
--- NOTE | 2018-12-31 11:20 | SCONE_ITS ---
Date of service: 12/31/18 Time of Service: 11:12 Assessment and Plan (1) Hx of opioid abuse: Current visit: No Status: Chronic (2) Chronic infection as complication of amputation: Current visit: Yes Status: Acute (3) Poor intravenous access: Current visit: Yes Status: Acute P\ Right subclavian or jugular central line Risks, benefits and complications have been reviewed with the patient. Complications include blood clot, pneumothorax, injury to vasculature, bacteremia, and if the line is used for IV drug abuse. Patient understands the risks and wishes to proceed. No guarantees were give or implied. History of Present Illness Chief Complaint: Right below knee amputation wound infection Narrative: Mrs. Odonnell is a 38 year old female with a PMHx significant for IV drug abuse now on suboxone who underwent a right below knee ambutation for a large infected wound. She has osteo and a chronic wound infection. She is followed by ID and General Surgery at [facility]. They are trying to salvage the below knee amputation with 6 weeks of IV antibiotics. Due to her previous drug abuse she has poor peripheral access. A PICC line was ordered and placement was not successful. I was asked by Dr. Olivas if I would be willing to place a central line. Consults Consult date: 12/31/18 Requesting physician: Ratna Olivas Review of Systems Constitutional Denies fever(s) and Denies weakness Neurologic Denies weakness [facility] Medical History Abnormal uterine bleeding (AUB) (Acute) On. Set 10/24/2018 heavy flow coinciding with initiation of Eliquis DVT, lower extremity, distal, acute (Acute) 10/24 2018 left lower extremity. Rx with Eliquis. Endometriosis (Chronic) Hx of hepatitis C (Acute) AB +. No viral load. Hx of opioid abuse (Chronic) Currently in treatment at [facility]. Suboxone. Normocytic hypochromic anemia (Acute) 10/26/2018 hemoglobin 8.2 MCV 83 Raynaud disease (Chronic) Sciatic pain (Chronic) Surgical History Complete below knee amputation of right lower extremity (Acute) 2018. 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 [facility]. 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 H/O hand surgery (Chronic) contracted post-op History of transesophageal echocardiography (YG) (Chronic) negative Retained foreign body (Chronic) L groin, s/p unsuccessful exploratory surgery Family History Father Diabetes Paternal Grandfather Diabetes Paternal Aunt Diabetes Maternal Grandmother Breast cancer Maternal Aunt Multiple sclerosis Social History Smoking/Tobacco Use Status: Never Alcohol Intake: never Drug use: Current Sobriety Substance use type: former substance user, crack/cocaine, heroin and methamphetamine Details: former cocaine (snorted, smoked, IV) and heroin use (IV), as well as crystal meth (IV). Patient is currently enrolled at [facility], on suboxone Household members: children and other Details: Patient resides at her sister's house with her daughter Number of Children: 1 current occupation: Unemployed Do you feel safe at home: Yes Do you feel safe in your relationship?: No Additional Social history: Ambulates with crutches - 2 falls recently Exam Const General: comfortable and no acute distress HENMT Head: normocephalic and atraumatic Chest Chest: normal inspection of the chest and normal palpation of entire chest wall Resp Effort & Inspection: normal respiratory effort cc: CATERINA HOSKINS, RATNA
[2018-12-31 11:38] LABS: Abs Immature Grans 0.01 k/cumm (0.0-0.09); Absolute Basophil Count 0.02 k/cumm (0.0-0.2); Absolute Eosinophil Count 0.09 k/cumm (0.0-0.7); Absolute Lymphocyte Count 0.73 k/cumm (1.2-3.4); Absolute Monocyte Count 0.38 k/cumm (0.11-0.7); Absolute Neutrophil Count 3.06 k/cumm (1.2-6.7); Basophils % 0.5; Eosinophils % 2.1; HCT 32.8 % (36.0-46.0); HGB 10.3 g/dL (12.0-15.5); Immature Grans % 0.2; Mean Corp. HGB Concentration 31.4 g/dL (32.0-36.0); Mean Corpuscular Volume 82.8 fL (80-95); Mean Platelet Volume 11.3 fL (8.0-11.0); Monocytes % 8.9; Neutrophils % 71.3; Platelet Count 145 x1000/uL (130-400); RBC 3.96 m/cumm (4.00-5.20); RBC Distribution Width 14.7 % (11.7-14.6); White Blood Cell Count 4.29 k/cumm (4.4-10.8)
[2018-12-31 11:49] LABS: ALT 37 U/L (14-59); AST 37 U/L (15-37); Albumin 3.2 g/dL (3.4-5.0); Alkaline Phosphatase 85 U/L (46-116); BUN 14 mg/dL (7-18); Bilirubin, Total 0.3 mg/dL (0.2-1.0); CREATININE 0.77 mg/dL (0.55-1.02); Calcium 8.1 mg/dL (8.5-10.1); Chloride 104 mmol/L (98-107); Glucose 100 mg/dL (70-100); Potassium 3.9 mmol/L (3.5-5.1); Sodium 140 mmol/L (136-145); Total Protein 7.8 g/dL (6.4-8.2)
[2018-12-31] MEDS: Normal Saline Flush 10 ML SYR 20 ML IVP (20:30)
--- NOTE | 2018-12-31 20:43 | NUR.NOTE ---
Nursing Note: pt arrived with bleeding around insertion site of central line- stat seal was applied with pressure- after 5 minutes site continued to bleed. Spoke with Mary Anne Mendoza and Dr. Mcdonnell- advised to try hemostatic dressing and if unable to stop bleeding pull line. After consulting, returned and bleeding had stopped. Reapplied stat seal and dressing. Line had good blood return and flushed well. Will reassess insertion site when infusion is complete. Mary Anne and Dr. Mcdonnell aware that that line is still in place at this time.
--- NOTE | 2018-12-31 21:44 | NUR.NOTE ---
Nursing Note: stat seal and dressing c/d/i after infusion- Mary Anne and Dr. Mcdonnell awareNika North will assess again in am- Pt advised to return immediately if the bleeding restarts.
[2019-01-01] MEDS: CEFEPIME 2 GM in Normal Saline 100 ML IVPB ×2 (08:56→20:05)
[2019-01-01] MEDS: Normal Saline Flush 10 ML SYR 20 ML IVP ×2 (09:15→20:00)
[2019-01-02] MEDS: Normal Saline Flush 10 ML SYR 20 ML IVP ×2 (08:16→20:03)
[2019-01-02] MEDS: CEFEPIME 2 GM in Normal Saline 100 ML IVPB ×2 (08:16→20:10)
[2019-01-03] MEDS: CEFEPIME 2 GM in Normal Saline 100 ML IVPB ×2 (07:55→20:37)
[2019-01-03] MEDS: Normal Saline Flush 10 ML SYR 20 ML IVP ×2 (08:03→20:04)
--- NOTE | 2019-01-04 11:50 | NUR.NOTE ---
Addendum entered by Ellie Bueno 01/04/19 15:58: Also noted white droplets on top of left great toe. No redness noted. Original Note: Nursing Note: Received call from Dr. Abdalla from [phone] who provides services to pt at the [facility]. States he has concerns regarding pt having a PICC line as the pt submitted water for a urine sample and was a no show at [facility] today. Pt arrived here 3.5 hrs late for her am infusion. Observed pt during UDS collection. Pt does have a sweaty face at this time. Ellie Bueno RN
[2019-01-04] MEDS: CEFEPIME 2 GM in Normal Saline 100 ML IVPB ×2 (12:00→20:35)
[2019-01-04 12:10] LABS: *AMPHETAMINES SCREEN URINE Negative (Negative); *BARBITURATES SCREEN URINE Negative (Negative); *BENZODIAZEPINES SCREEN URINE Negative (Negative); Cannabinoids THC Negative (Negative); Cocaine Screen,Urine POSITIVE (Negative); METHADONE URINE SCREEN Negative (Negative); OPIATES URINE SCREEN Negative (Negative); Tricyclic Antidepressants Negative (Negative)
[2019-01-04] MEDS: Normal Saline Flush 10 ML SYR IVP ×2 (12:33→12:38)
[2019-01-04] MEDS: Normal Saline Flush 10 ML SYR 20 ML IVP (20:36)
[2019-01-05] MEDS: Normal Saline Flush 10 ML SYR 20 ML IVP (19:35)
[2019-01-05] MEDS: CEFEPIME 2 GM in Normal Saline 100 ML IVPB (19:35)
[2019-01-06] MEDS: CEFEPIME 2 GM in Normal Saline 100 ML IVPB (08:00)
[2019-01-06] MEDS: Normal Saline Flush 10 ML SYR 20 ML IVP (21:01)
[2019-01-06 21:17] LABS: *AMPHETAMINES SCREEN URINE Negative (Negative); *BARBITURATES SCREEN URINE Negative (Negative); *BENZODIAZEPINES SCREEN URINE Negative (Negative); Cannabinoids THC Negative (Negative); Cocaine Screen,Urine POSITIVE (Negative); METHADONE URINE SCREEN Negative (Negative); OPIATES URINE SCREEN Negative (Negative); Tricyclic Antidepressants Negative (Negative)
[2019-01-07] MEDS: CEFEPIME 2 GM in Normal Saline 100 ML IVPB ×2 (09:33→20:19)
[2019-01-07] MEDS: Normal Saline Flush 10 ML SYR 20 ML IVP (10:05)
[2019-01-08] MEDS: CEFEPIME 2 GM in Normal Saline 100 ML IVPB ×2 (07:31→19:55)
[2019-01-08] MEDS: Normal Saline Flush 10 ML SYR 20 ML IVP (07:32)
[2019-01-08 20:39] VITALS: BP 123/85; PULSE 92
[2019-01-09] MEDS: CEFEPIME 2 GM in Normal Saline 100 ML IVPB ×2 (09:00→20:16)
[2019-01-09] MEDS: Normal Saline Flush 10 ML SYR IVP (09:04)
[2019-01-10] MEDS: CEFEPIME 2 GM in Normal Saline 100 ML IVPB ×2 (08:03→19:36)
[2019-01-10] MEDS: Normal Saline Flush 10 ML SYR IVP (08:04)
[2019-01-10] MEDS: Normal Saline Flush 10 ML SYR 20 ML IVP (19:37)
[2019-01-10 19:50] VITALS: BP 101/61; PULSE 64; RESP 16; TEMP 36.8; O2SAT 98
[2019-01-10 21:01] LABS: *AMPHETAMINES SCREEN URINE Negative (Negative); *BARBITURATES SCREEN URINE Negative (Negative); *BENZODIAZEPINES SCREEN URINE Negative (Negative); Cannabinoids THC Negative (Negative); Cocaine Screen,Urine Negative (Negative); METHADONE URINE SCREEN Negative (Negative); OPIATES URINE SCREEN Negative (Negative)
[2019-01-10 21:11] LABS: Tricyclic Antidepressants Negative (Negative)
[2019-01-11] MEDS: Normal Saline Flush 10 ML SYR IVP (08:14)
[2019-01-11] MEDS: CEFEPIME 2 GM in Normal Saline 100 ML IVPB ×2 (08:14→19:59)
[2019-01-11 12:25] LABS: Benzoylecgonine 31180 ng/mL (Cutoff: 50); Cocaine Negative ng/mL (Cutoff: 50); Cocaine Interpretation Positive.
[2019-01-11] MEDS: Normal Saline Flush 10 ML SYR 20 ML IVP (20:00)
[2019-01-11 20:06] VITALS: BP 106/69; PULSE 63; RESP 16; TEMP 36.7; O2SAT 99
[2019-01-12] MEDS: CEFEPIME 2 GM in Normal Saline 100 ML IVPB ×2 (08:48→20:28)
[2019-01-12] MEDS: Normal Saline Flush 10 ML SYR IVP (08:49)
[2019-01-12] MEDS: Normal Saline Flush 10 ML SYR 20 ML IVP (20:29)
[2019-01-13] MEDS: CEFEPIME 2 GM in Normal Saline 100 ML IVPB ×2 (08:25→20:04)
[2019-01-13] MEDS: Normal Saline Flush 10 ML SYR IVP ×2 (08:29→20:05)
[2019-01-14] MEDS: CEFEPIME 2 GM in Normal Saline 100 ML IVPB ×2 (09:05→19:57)
[2019-01-14] MEDS: Normal Saline Flush 10 ML SYR IVP ×2 (09:23→19:58)
[2019-01-14 10:34] LABS: Abs Immature Grans 0.04 k/cumm (0.0-0.09); Absolute Basophil Count 0.01 k/cumm (0.0-0.2); Absolute Eosinophil Count 0.17 k/cumm (0.0-0.7); Absolute Lymphocyte Count 0.94 k/cumm (1.2-3.4); Absolute Monocyte Count 0.41 k/cumm (0.11-0.7); Absolute Neutrophil Count 4.83 k/cumm (1.2-6.7); Basophils % 0.2; Eosinophils % 2.7; HCT 35.2 % (36.0-46.0); HGB 10.8 g/dL (12.0-15.5); Immature Grans % 0.6; Lymphocytes % 14.7; Mean Corp. HGB Concentration 30.7 g/dL (32.0-36.0); Mean Corpuscular Hemoglobin 25.5 pg (27.0-33.0); Mean Corpuscular Volume 83.2 fL (80-95); Monocytes % 6.4; Neutrophils % 75.4; Platelet Count 195 x1000/uL (130-400); RBC 4.23 m/cumm (4.00-5.20); RBC Distribution Width 14.6 % (11.7-14.6)
[2019-01-14 10:56] LABS: ALT 28 U/L (14-59); AST 26 U/L (15-37); Albumin 3.5 g/dL (3.4-5.0); Alkaline Phosphatase 81 U/L (46-116); Anion Gap 8.7 mmol/L (3-11); BUN 18 mg/dL (7-18); Bilirubin, Total 0.2 mg/dL (0.2-1.0); C-Reactive Protein 0.51 mg/dL (0.0-0.3); CO2 26.3 mmol/L (21.0-32.0); CREATININE 0.86 mg/dL (0.55-1.02); Calcium 8.6 mg/dL (8.5-10.1); Chloride 102 mmol/L (98-107); Glucose 168 mg/dL (70-100); Sodium 137 mmol/L (136-145); Total Protein 8.4 g/dL (6.4-8.2)
[2019-01-14 20:55] LABS: *AMPHETAMINES SCREEN URINE Negative (Negative); *BARBITURATES SCREEN URINE Negative (Negative); *BENZODIAZEPINES SCREEN URINE Negative (Negative); Cannabinoids THC Negative (Negative); Cocaine Screen,Urine Negative (Negative); METHADONE URINE SCREEN Negative (Negative); OPIATES URINE SCREEN Negative (Negative)
[2019-01-14 21:19] LABS: Tricyclic Antidepressants Negative (Negative)
[2019-01-15] MEDS: CEFEPIME 2 GM in Normal Saline 100 ML IVPB ×2 (08:13→20:04)
[2019-01-15] MEDS: Normal Saline Flush 10 ML SYR IVP ×2 (08:23→20:40)
[2019-01-16] MEDS: CEFEPIME 2 GM in Normal Saline 100 ML IVPB ×2 (07:31→20:18)
[2019-01-16] MEDS: Normal Saline Flush 10 ML SYR 20 ML IVP (07:32)
[2019-01-17] MEDS: CEFEPIME 2 GM in Normal Saline 100 ML IVPB ×2 (07:45→20:05)
[2019-01-17] MEDS: Normal Saline Flush 10 ML SYR 20 ML IVP (08:15)
[2019-01-18] MEDS: CEFEPIME 2 GM in Normal Saline 100 ML IVPB ×2 (08:50→20:05)
[2019-01-18] MEDS: Normal Saline Flush 10 ML SYR 20 ML IVP (08:51)
[2019-01-19] MEDS: Normal Saline Flush 10 ML SYR 20 ML IVP ×2 (08:38→08:39)
[2019-01-19] MEDS: CEFEPIME 2 GM in Normal Saline 100 ML IVPB ×2 (08:39→20:22)
[2019-01-19] MEDS: Normal Saline Flush 10 ML SYR IVP (20:20)
[2019-01-20] MEDS: CEFEPIME 2 GM in Normal Saline 100 ML IVPB ×2 (08:05→20:00)
[2019-01-20] MEDS: Normal Saline Flush 10 ML SYR 20 ML IVP (08:24)
[2019-01-20] MEDS: Normal Saline Flush 10 ML SYR IVP (20:25)
[2019-01-20 21:57] LABS: *AMPHETAMINES SCREEN URINE Negative (Negative); *BARBITURATES SCREEN URINE Negative (Negative); *BENZODIAZEPINES SCREEN URINE Negative (Negative); Cannabinoids THC Negative (Negative); Cocaine Screen,Urine Negative (Negative); METHADONE URINE SCREEN Negative (Negative); OPIATES URINE SCREEN Negative (Negative)
[2019-01-20 22:07] LABS: Tricyclic Antidepressants Negative (Negative)
[2019-01-21] MEDS: CEFEPIME 2 GM in Normal Saline 100 ML IVPB ×2 (08:34→20:30)
[2019-01-21] MEDS: Normal Saline Flush 10 ML SYR 20 ML IVP (08:35)
[2019-01-21 09:00] LABS: Uric Acid 2.4 mg/dL (2.6-6.0)
[2019-01-21] MEDS: Normal Saline Flush 10 ML SYR IVP (21:04)
[2019-01-22] MEDS: CEFEPIME 2 GM in Normal Saline 100 ML IVPB ×2 (07:54→19:40)
[2019-01-22] MEDS: Normal Saline Flush 10 ML SYR 20 ML IVP ×2 (08:01→19:43)
[2019-01-22 09:05] LABS: *AMPHETAMINES SCREEN URINE Negative (Negative); *BARBITURATES SCREEN URINE Negative (Negative); *BENZODIAZEPINES SCREEN URINE Negative (Negative); Cannabinoids THC Negative (Negative); Cocaine Screen,Urine Negative (Negative); METHADONE URINE SCREEN Negative (Negative); OPIATES URINE SCREEN Negative (Negative)
[2019-01-22 09:12] LABS: Tricyclic Antidepressants Negative (Negative)
[2019-01-22 10:38] LABS: Hepatitis C Ab w Rflx HCV PCR Reactive (NEGAT)
[2019-01-22 11:40] LABS: Hep B Core Antibody Negative (NEGAT)
[2019-01-22 11:43] LABS: HIV-1/2 Ag & Ab Screen Negative (NEGAT)
[2019-01-22 11:45] LABS: HBs Antibody, Quant >1000.0 mIU/mL; Hepatitis B Surface Ab Positive; Hepatitis B Surface Ag Negative (NEGAT)
[2019-01-23] MEDS: CEFEPIME 2 GM in Normal Saline 100 ML IVPB ×2 (07:59→20:14)
[2019-01-23] MEDS: Normal Saline Flush 10 ML SYR 20 ML IVP ×2 (08:43→20:15)
[2019-01-23 13:13] LABS: HCV RNA Detection Quantitative Undetected IU/mL (UNDECT)
[2019-01-24] MEDS: CEFEPIME 2 GM in Normal Saline 100 ML IVPB (07:47)
[2019-01-24] MEDS: Normal Saline Flush 10 ML SYR 20 ML IVP (08:40)
== END 2019-01-27 23:59 | disposition home or self-care (01) ==
LOC: INF 01:39
PROVIDERS: Podiatrist Foot & Ankle Surgery; PCP Family Medicine; Visit Provider Internal Medicine
DX: M86.662 Other chronic osteomyelitis, left tibia and fibula (principal); Z89.512 Acquired absence of left leg below knee; F19.11 Other psychoactive substance abuse, in remission; Z78.9 Other specified health status; T87.44 Infection of amputation stump, left lower extremity; Z45.2 Encounter for adjustment and management of vascular access device
CPT/HCPCS: 36592; 71045; 80053; 80307; 86704; 86706; 86803; 87340; 87389; 96365; 96366; 99252; 80353; 84550; 85025; 86140; 87522

== ENCOUNTER 2019-02-09 01:03 | Outpatient (RCR) | payer MEDICAID, SELFPAY ==
[2019-01-28] MEDS: CEFEPIME 2 GM in Normal Saline 100 ML IVPB ×2 (07:56→19:15)
[2019-01-28] MEDS: Normal Saline Flush 10 ML SYR IVP ×2 (08:57→19:15)
[2019-01-28] MEDS: Enoxaparin 60 MG/0.6 ML SYR SC ×2 (10:07→20:43)
[2019-01-29] MEDS: CEFEPIME 2 GM in Normal Saline 100 ML IVPB ×2 (08:15→18:35)
[2019-01-29] MEDS: Normal Saline Flush 10 ML SYR IVP (08:21)
[2019-01-29 08:32] LABS: Vancomycin, Trough 15.4 ug/mL (10.0-20.0)
[2019-01-29] MEDS: Enoxaparin 60 MG/0.6 ML SYR SC ×2 (10:39→20:20)
[2019-01-30] MEDS: CEFEPIME 2 GM in Normal Saline 100 ML IVPB ×2 (07:48→19:29)
[2019-01-30] MEDS: Normal Saline Flush 10 ML SYR IVP (07:54)
[2019-01-30] MEDS: Enoxaparin 60 MG/0.6 ML SYR SC ×2 (10:24→20:29)
[2019-01-30 11:11] LABS: *AMPHETAMINES SCREEN URINE Negative (Negative); *BARBITURATES SCREEN URINE Negative (Negative); *BENZODIAZEPINES SCREEN URINE Negative (Negative); Cannabinoids THC Negative (Negative); Cocaine Screen,Urine Negative (Negative); METHADONE URINE SCREEN Negative (Negative); OPIATES URINE SCREEN Negative (Negative)
[2019-01-30 11:16] LABS: Tricyclic Antidepressants Negative (Negative)
[2019-01-31] MEDS: CEFEPIME 2 GM in Normal Saline 100 ML IVPB ×2 (07:57→19:29)
[2019-01-31 08:15] LABS: Vancomycin, Trough 17.1 ug/mL (10.0-20.0)
[2019-01-31] MEDS: Normal Saline Flush 10 ML SYR IVP ×2 (08:19→19:30)
[2019-01-31] MEDS: Enoxaparin 60 MG/0.6 ML SYR SC (20:11)
[2019-02-01 07:43] VITALS: BP 94/67; PULSE 82; RESP 18; TEMP 36.1; O2SAT 96
[2019-02-01] MEDS: CEFEPIME 2 GM in Normal Saline 100 ML IVPB ×2 (07:59→19:35)
[2019-02-01] MEDS: Normal Saline Flush 10 ML SYR IVP (19:55)
[2019-02-01] MEDS: Enoxaparin 60 MG/0.6 ML SYR SC (21:20)
[2019-02-02 08:49] VITALS: BP 103/70; PULSE 75; RESP 16; TEMP 36.6; O2SAT 100
[2019-02-02] MEDS: CEFEPIME 2 GM in Normal Saline 100 ML IVPB ×2 (08:54→19:35)
[2019-02-02] MEDS: Enoxaparin 60 MG/0.6 ML SYR SC ×2 (08:55→21:10)
[2019-02-02 10:38] VITALS: BP 98/66; PULSE 73; RESP 17; TEMP 36; O2SAT 97
[2019-02-03] MEDS: CEFEPIME 2 GM in Normal Saline 100 ML IVPB ×2 (08:12→20:00)
[2019-02-03] MEDS: Normal Saline Flush 10 ML SYR IVP (09:00)
[2019-02-03] MEDS: Enoxaparin 60 MG/0.6 ML SYR SC ×2 (09:48→21:35)
[2019-02-04] MEDS: CEFEPIME 2 GM in Normal Saline 100 ML IVPB ×2 (07:50→19:50)
[2019-02-04] MEDS: Normal Saline Flush 10 ML SYR IVP (07:54)
[2019-02-04 08:16] LABS: Vancomycin, Trough 18.7 ug/mL (10.0-20.0)
[2019-02-04] MEDS: Enoxaparin 60 MG/0.6 ML SYR SC ×2 (10:02→19:50)
[2019-02-05] MEDS: CEFEPIME 2 GM in Normal Saline 100 ML IVPB ×2 (07:54→19:41)
[2019-02-05] MEDS: Normal Saline Flush 10 ML SYR IVP ×2 (07:55→19:40)
[2019-02-05] MEDS: Enoxaparin 60 MG/0.6 ML SYR SC ×2 (10:01→20:34)
[2019-02-05 19:34] VITALS: BP 92/60; PULSE 69; RESP 19; TEMP 36.5; O2SAT 97
[2019-02-05] MEDS: Normal Saline 500 ML 30 ML IV (19:55)
[2019-02-06] MEDS: CEFEPIME 2 GM in Normal Saline 100 ML IVPB ×2 (08:00→19:35)
[2019-02-06] MEDS: Normal Saline Flush 10 ML SYR IVP (08:00)
[2019-02-06] MEDS: Enoxaparin 60 MG/0.6 ML SYR SC ×2 (09:30→21:10)
[2019-02-07] MEDS: CEFEPIME 2 GM in Normal Saline 100 ML IVPB ×2 (07:50→20:00)
[2019-02-07] MEDS: Normal Saline Flush 10 ML SYR IVP (07:54)
[2019-02-07 07:57] LABS: Abs Immature Grans 0.03 k/cumm (0.0-0.09); Absolute Basophil Count 0.02 k/cumm (0.0-0.2); Absolute Eosinophil Count 0.11 k/cumm (0.0-0.7); Absolute Lymphocyte Count 0.62 k/cumm (1.2-3.4); Absolute Monocyte Count 0.53 k/cumm (0.11-0.7); Absolute Neutrophil Count 3.65 k/cumm (1.2-6.7); Basophils % 0.4; Eosinophils % 2.2; HCT 29.6 % (36.0-46.0); HGB 9.3 g/dL (12.0-15.5); Immature Grans % 0.6; Lymphocytes % 12.5; Mean Corp. HGB Concentration 31.4 g/dL (32.0-36.0); Mean Corpuscular Hemoglobin 26.1 pg (27.0-33.0); Mean Corpuscular Volume 82.9 fL (80-95); Mean Platelet Volume 10.6 fL (8.0-11.0); Monocytes % 10.7; Neutrophils % 73.6; Platelet Count 198 x1000/uL (130-400); RBC 3.57 m/cumm (4.00-5.20); White Blood Cell Count 4.96 k/cumm (4.4-10.8)
[2019-02-07] MEDS: Enoxaparin 60 MG/0.6 ML SYR SC ×2 (07:58→20:00)
[2019-02-07 08:16] LABS: ALT 13 U/L (14-59); AST 19 U/L (15-37); Alkaline Phosphatase 106 U/L (46-116); Anion Gap 9.7 mmol/L (3-11); BUN 13 mg/dL (7-18); Bilirubin, Total 0.4 mg/dL (0.2-1.0); CO2 27.3 mmol/L (21.0-32.0); CREATININE 0.74 mg/dL (0.55-1.02); Calcium 8.6 mg/dL (8.5-10.1); Chloride 102 mmol/L (98-107); Glucose 83 mg/dL (70-100); Sodium 139 mmol/L (136-145); Total Protein 7.8 g/dL (6.4-8.2); Vancomycin, Trough 19.8 ug/mL (10.0-20.0)
[2019-02-07 08:30] LABS: C-Reactive Protein 1.82 mg/dL (0.0-0.3)
[2019-02-08] MEDS: CEFEPIME 2 GM in Normal Saline 100 ML IVPB ×2 (07:45→20:07)
[2019-02-08] MEDS: Normal Saline Flush 10 ML SYR IVP ×2 (07:45→20:08)
[2019-02-08] MEDS: Enoxaparin 60 MG/0.6 ML SYR SC ×2 (08:17→20:08)
[2019-02-09] MEDS: CEFEPIME 2 GM in Normal Saline 100 ML IVPB ×2 (08:30→19:22)
[2019-02-09] MEDS: Normal Saline Flush 10 ML SYR IVP ×2 (08:37→19:23)
[2019-02-09] MEDS: Enoxaparin 60 MG/0.6 ML SYR SC ×2 (09:04→19:22)
--- NOTE | 2019-02-11 14:24 | NUR.NOTE ---
Nursing Note: PT CALLED BY DR MILA BELLA TO LET PATIENT KNOW THAT ELIQUIS WAS ORDERED FOR HER AND ELECTRONICALLY SENT TO THE PATIENTS PHARMACY. ORDER CONFIRMED IN AMBULATORY ORDERS WITHIN CHART. PT CALLED AND DISCREET MESSAGE LEFT REGARDING MEDICATION BEING CALLED TO HER PHARMACY AND RESTARTED WHEN APPROPRIATE. PT ENCOURAGED TO CALL DR ALDANA WITH ANY QUESTIONS.
== END 2019-02-27 23:59 | disposition home or self-care (01) ==
LOC: INF 01:03
PROVIDERS: PCP Family Medicine; Visit Provider Internal Medicine
DX: T87.44 Infection of amputation stump, left lower extremity (principal); M86.662 Other chronic osteomyelitis, left tibia and fibula; Z89.512 Acquired absence of left leg below knee; F19.11 Other psychoactive substance abuse, in remission; Z78.9 Other specified health status; Z45.2 Encounter for adjustment and management of vascular access device
CPT/HCPCS: 36592; 80053; 80307; 96365; 96366; 96372; 96374; 96523; 80202; 82565; 85025; 86140; J1650; J3370

== ENCOUNTER 2019-03-14 09:43 | Outpatient (CLI) | payer MEDICAID, SELFPAY ==
[2019-03-14 10:21] LABS: Abs Immature Grans 0.01 k/cumm (0.0-0.09); Absolute Basophil Count 0.03 k/cumm (0.0-0.2); Absolute Eosinophil Count 0.22 k/cumm (0.0-0.7); Absolute Lymphocyte Count 1.26 k/cumm (1.2-3.4); Absolute Monocyte Count 0.51 k/cumm (0.11-0.7); Absolute Neutrophil Count 2.26 k/cumm (1.2-6.7); Basophils % 0.7; Eosinophils % 5.1; HCT 34.2 % (36.0-46.0); HGB 10.4 g/dL (12.0-15.5); Immature Grans % 0.2; Lymphocytes % 29.4; Mean Corp. HGB Concentration 30.4 g/dL (32.0-36.0); Mean Corpuscular Volume 85.5 fL (80-95); Mean Platelet Volume 10.9 fL (8.0-11.0); Monocytes % 11.9; Neutrophils % 52.7; Platelet Count 182 x1000/uL (130-400); RBC Distribution Width 14.3 % (11.7-14.6); White Blood Cell Count 4.29 k/cumm (4.4-10.8)
[2019-03-14 11:03] LABS: HCG Quant, Pregnancy 112 mIU/mL (1-3)
== END 2019-03-14 10:03 ==
PROVIDERS: PCP Family Medicine; Visit Provider Nurse Practitioner Family
DX: O20.9 Hemorrhage in early pregnancy, unspecified (principal); N93.9 Abnormal uterine and vaginal bleeding, unspecified
CPT/HCPCS: 36415; 84702; 85025

== ENCOUNTER 2019-03-18 12:27 | Outpatient (CLI) | payer MEDICAID, SELFPAY ==
[2019-03-18 14:14] LABS: HCG Quant, Pregnancy 46 mIU/mL (1-3)
== END 2019-03-18 12:47 ==
PROVIDERS: PCP Family Medicine; Visit Provider Nurse Practitioner Family
DX: O20.9 Hemorrhage in early pregnancy, unspecified (principal)
CPT/HCPCS: 36415; 84702

== ENCOUNTER 2019-03-29 14:37 | Emergency (ER) | payer MEDICAID, SELFPAY ==
[2019-03-29 14:41] VITALS: BP 111/62; PULSE 63; RESP 18; TEMP 36.5; O2SAT 100
--- NOTE | 2019-03-29 14:51 | W.ED.GENAD ---
Discharge Plan Disposition Patient Disposition: HOME Condition: Fair Discharge Details Chief Complaint: Cellulitis Clinical Impression: Cellulitis Primary Care Provider: Ratna Olivas ED Provider: Kerry Arora Home Meds and New Rx's Prescriptions: New cephalexin [Keflex] 500 mg capsule 500 mg PO QID 7 Days Qty: 28 RF: 0 sulfamethoxazole-trimethoprim [Bactrim DS] 800-160 mg tablet 1 tab PO BID 7 Days Qty: 14 RF: 0 acetaminophen 500 mg capsule 500 mg PO Q4H PRN (Reason: pain) Qty: 30 RF: 0 Continued gabapentin 600 mg tablet 1,200 mg PO QHS RF: 0 norethindrone (contraceptive) 0.35 mg tablet 0.35 mg PO DAILY Qty: 84 RF: 3 Eliquis 5 mg tablet 10 mg PO BID Qty: 120 RF: 3 Buprenorphine/Naloxone [Suboxone 12 MG-3 MG SL FILM] 1 EACH film 1 unit PO DAILY RF: 0 prednisone 20 mg Tablet 20 mg PO TID RF: 0 methocarbamol 500 mg Tablet 500 mg PO QID PRNRF: 0 trazodone 50 mg Tablet 50 mg PO QHS RF: 0 gabapentin 600 mg tablet 600 mg PO BID RF: 0 Discharge Instructions Instructions: Cellulitis (ED) Additional Instructions: Encourage hydration. Please continue with recommended medications as prescribed by dermatology. Your great toe looks very moist particularly on the inside part of the toe or you have a new and increased pain. I think this would benefit from airing out. However, you may apply the Vaseline infused gauze over the open area so that this stays moist and does not increase in pain. Allow the rest of the toe then to be out to air and dry off. I am concerned about infection, please take the Keflex and Bactrim as prescribed. If you develop fever/chills, increased pain or the new/worsening symptoms please seek care urgently once again. Otherwise, please follow-up with primary care on Sunday as previously scheduled. Referrals: Ratna Olivas MD [Primary Care Provider] - Discharge Data Discharge Date/Time-TO BE ENTERED AT DEPARTURE: 03/29/19 15:20 Medical Decision Making Patient 38-year-old female chronic wounds to her right BKA in her left great toe. She comes in today with pain and erythema to the left great toe. Has been followed by dermatology and is currently on prednisone for this. Patient has wound care instructions. Reports that she has been following these and despite this has increased redness and pain along the medial aspect of the toe. Also felt that the drainage was more brown than typical. Denies any constitutional symptoms. He appears nontoxic. Vital signs within normal limits. On exam, patient has open wound at the lateral aspect of her BKA. There is working 1 cm x 5 mm with no surrounding erythema, warmth or drainage. Patient has tenderness on the medial aspect of the left great toe. This area appears moist and concerned she may be developing a yeast infection although none is overtly apparent at this point. It is warm to the touch. States it is more red than typical. She has an open wound with granular tissue in the wound bed. The medial aspect of the toe needs to be able to drive more. Patient has been applying the prednisone cream as prescribed by the winding rack operator to the open wound area. She states that when the open wound is to air, and is allowed dry, the pain increases when she prefers to keep the wound bed moist. Nursing staff taught the patient how to do Vaseline infused gauze over the wound bed. I feel that this will adhere well and allow the patient to dry the medial aspect of the toe. As this is more erythematous and painful, we will begin the patient on Keflex and Bactrim as well. She is given return precautions. She does have an appointment on Sunday for reevaluation. All her questions and concerns were addressed and she is in agreement with plan. HPI General Mode of arrival: ambulatory. Date/Time Provider Initiated Documentation: 03/29/19 14:50. Limitations to Documentation: no limitations. Information obtained by: patient and RN notes reviewed. HPI Narrative: Patient is a 38 year old female presenting today with c/c of left great toe infection. She has had open wound there chronically and is being followed by dermatology. Patient reports that they began her on Prednisone recently for this wound as well as a steroid cream. Has been using this for the past week. Has appointment with PCP for wound check on Sunday. She has noted erythema and increased discomfort to this area for the past 3-4 days. No fevers/chills. Denies feeling ill. Has noted particular the medial aspect of the toe to be more uncomfortable. Related Data Home Medications Medication Instructions Recorded Confirmed methocarbamol 500 mg PO QID PRN 10/26/18 03/29/19 trazodone 50 mg PO QHS 10/26/18 03/29/19 apixaban 5 mg tablet 10 mg PO BID #120 tab 02/10/19 03/29/19 Buprenorphine/Naloxone [Suboxone 1 unit PO DAILY 03/14/19 03/29/19 12 MG-3 MG SL FILM] gabapentin 600 mg tablet 1,200 mg PO QHS tab 03/21/19 03/29/19 gabapentin 600 mg tablet 600 mg PO BID tab 03/21/19 03/29/19 norethindrone (contraceptive) 0.35 0.35 mg PO DAILY #84 tab 03/21/19 03/29/19 mg tablet acetaminophen 500 mg PO Q4H PRN #30 cap 03/29/19 cephalexin [Keflex] 500 mg PO QID 7 Days #28 cap 03/29/19 prednisone 20 mg PO TID 03/29/19 03/29/19 sulfamethoxazole-trimethoprim 1 tab PO BID 7 Days #14 tab 03/29/19 [Bactrim DS] Previous Rx's Medication Instructions Recorded apixaban 5 mg tablet 10 mg PO BID #120 tab 02/10/19 norethindrone (contraceptive) 0.35 0.35 mg PO DAILY #84 tab 03/21/19 mg tablet acetaminophen 500 mg PO Q4H PRN #30 cap 03/29/19 cephalexin [Keflex] 500 mg PO QID 7 Days #28 cap 03/29/19 sulfamethoxazole-trimethoprim 1 tab PO BID 7 Days #14 tab 03/29/19 [Bactrim DS] Allergies Allergy/AdvReac Type Severity Reaction Status Date / Time No Known Allergies Allergy Unverified 03/29/19 14:45 General Stated Complaint: Cellulitis LEIF: 3 Review of Systems Constitutional Constitutional: Reports as per HPI, Denies chills and Denies fever(s) Musculoskeletal Musculoskeletal: Reports as per HPI Integumentary/Breasts Skin/Breast: Reports as per HPI Neurologic Neurologic: Reports as per HPI, Denies sensory deficit and Denies paresthesias [facility] Medical History Abnormal uterine bleeding (AUB) (Acute) On. Set 10/24/2018 heavy flow coinciding with initiation of Eliquis DVT, lower extremity, distal, acute (Acute) 10/24 2018 left lower extremity. Rx with Eliquis. Endometriosis (Chronic) Hx of hepatitis C (Acute) AB +. No viral load. Hx of opioid abuse (Chronic) Currently in treatment at [facility]. Suboxone. Normocytic hypochromic anemia (Acute) 10/26/2018 hemoglobin 8.2 MCV 83 Raynaud disease (Chronic) Sciatic pain (Chronic) Surgical History Complete below knee amputation of right lower extremity (Acute) 2018. 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 [facility]. 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 H/O hand surgery (Chronic) contracted post-op History of transesophageal echocardiography (YG) (Chronic) negative Retained foreign body (Chronic) L groin, s/p unsuccessful exploratory surgery Social History Smoking/Tobacco Use Status: Never Alcohol Intake: never Drug use: Current Sobriety Substance use type: former substance user, crack/cocaine, heroin and methamphetamine Details: former cocaine (snorted, smoked, IV) and heroin use (IV), as well as crystal meth (IV). Patient is currently enrolled at [facility], on suboxone Household members: children and other Details: Patient resides at her sister's house with her daughter Number of Children: 1 current occupation: Unemployed Seatbelt use: always Do you feel safe at home: Yes Do you feel safe in your relationship?: Yes Additional Social history: Ambulates with crutches - 2 falls recently Exam Const General: cooperative, healthy appearing, comfortable, no acute distress and well developed Nutritional Appearance: average body habitus and well nourished Orientation: alert and awake Resp Effort & Inspection: normal respiratory effort, able to speak in complete sentences and no respiratory distress Cardio Rate: regular rate Rhythm: regular rhythm Skin General skin exam: erythema Wounds: wounds noted (As drawn below) Full body images: 1. Patient has a BKA on the right lower extremity. She is a chronic small open wound along the lateral aspect of the leg. No surrounding erythema, warmth, drainage. This is not appear acutely infected patient reports that this appears the same as it had been. Neuro General: alert and awake Cognition: normal cognition Speech: speech normal Gait: normal gait Sensory Exam: no sensory deficits noted Extrem Ankle/foot/toe images: 1. Chronic open wound, granular tissue covers the area. No active bleeding. 2. area of erythema. Patient reports this is not unusual but that the redness is more pronounced medially and tender. No area of fluctuance. Good capillary refill. Medial aspect is moist but no exudate. Psych Appearance: grossly normal and well kempt Mental Status: mental status grossly normal Speech and Movement: speech and movement normal Course Vital Signs Vital signs: Vital Signs Temperature 36.5 C 03/29/19 14:41 Pulse 63 03/29/19 14:41 Respiratory Rate 18 03/29/19 14:41 Blood Pressure 111/62 03/29/19 14:41 Pulse Oximetry 100 03/29/19 14:41 Temperature 36.5 C 03/29/19 14:41 Temperature Source Oral 03/29/19 14:41 Pulse 63 03/29/19 14:41 Respiratory Rate 18 03/29/19 14:41 Respiratory Effort Non-Labored 03/29/19 14:44 Blood Pressure 111/62 03/29/19 14:41 Blood Pressure Position Sitting 03/29/19 14:41 Pulse Oximetry 100 03/29/19 14:41 Oxygen Delivery Method Room Air 03/29/19 14:41 Oxygen Flow Rate 0 03/29/19 14:41 Pain Level 7 03/29/19 14:41
--- NOTE | 2019-03-29 16:44 | NUR.NOTE ---
Addendum entered by Dedra Stein 03/29/19 16:46: vaseline guaze given to pt. Original Note: L great toe-vasaline guaze applied to ulcerated area and wrapped with conform wrap.Nursing Note:
== END 2019-03-29 15:20 | disposition home or self-care (01) ==
PROVIDERS: Emergency Provider Physician Assistant; PCP Family Medicine
DX: L03.032 Cellulitis of left toe (principal); F19.21 Other psychoactive substance dependence, in remission; Z89.511 Acquired absence of right leg below knee
CPT/HCPCS: 99283

== ENCOUNTER 2019-04-20 17:39 | Emergency (ER) | payer MEDICAID, SELFPAY ==
[2019-04-20 17:41] VITALS: BP 120/86; PULSE 69; RESP 20; TEMP 36.7; O2SAT 100
--- NOTE | 2019-04-20 17:48 | W.ED.GENAD ---
Discharge Plan Disposition Patient Disposition: HOME Condition: Good Discharge Details Chief Complaint: Cellulitis Clinical Impression: Chronic wound of extremity, Cellulitis Primary Care Provider: Ratna Olivas ED Provider: Pavel Antunez Home Meds and New Rx's Prescriptions: New levofloxacin [Levaquin] 750 mg tablet 750 mg PO DAILY Qty: 14 RF: 0 No Action gabapentin 600 mg tablet 1,200 mg PO QHS RF: 0 norethindrone (contraceptive) 0.35 mg tablet 0.35 mg PO DAILY Qty: 84 RF: 3 Eliquis 5 mg tablet 10 mg PO BID Qty: 120 RF: 3 Buprenorphine/Naloxone [Suboxone 12 MG-3 MG SL FILM] 1 EACH film 1 unit PO DAILY RF: 0 prednisone 20 mg Tablet 20 mg PO TID RF: 0 acetaminophen 500 mg capsule 500 mg PO Q4H PRN (Reason: pain) Qty: 30 RF: 0 methocarbamol 500 mg Tablet 500 mg PO QID PRNRF: 0 trazodone 50 mg Tablet 50 mg PO QHS RF: 0 gabapentin 600 mg tablet 600 mg PO BID RF: 0 Discharge Instructions Instructions: Cellulitis (ED), Chronic Wound Care (ED) Additional Instructions: Please take the antibiotic as directed. Please continue to change your bandage 2-3 times per day. You will be contacted by our special education case manager tomorrow for your wound care. When you are contacted by the orthopedics office please make this appointment do not miss it. If you notice any worsening of your symptoms, or any new symptoms such as vomiting, diarrhea, fever, chills, shortness of breath, chest pain, numbness, weakness, or fainting , please return immediately to the emergency department for reevaluation. Please follow up with your primary care provider as soon as possible for reassessment and reevaluation. As always, it was a pleasure participating in your medical care today. 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 She presents today for redness pain and tenderness in her left great toe. She was seen 22 days ago where she was started on Keflex and Bactrim for very mild infection. She has been following up with her PCP and seeing outpatient wound care. Over the last 2 to 3 days she has had mild to moderate worsening of her symptoms with mild pain, redness, drainage and mild swelling. Exam shows evidence of what appears to be more of a chronic wound with mild surrounding cellulitis. Notable degeneration of the soft tissues on the dorsal aspect of the great toe. No evidence of bony presents. We will get an x-ray to evaluate for osteomyelitis. Of note on bedside evaluation utilizing hemostats there is no evidence of palpable bony protuberance. Wound cultures will be sent. Currently there is no evidence of systemic infection with no fever chills tachycardia or other vital sign abnormality. She has no subjective clinical evidence of systemic infection either. 6:40 PM X-ray results have returned and per virtual radiology there is no evidence of significant osteomyelitis on x-ray imaging. I did contact orthopedics and spoke with Dr. Hanna. We did send him images of patient's current toe. He agrees that there is a notable component of a chronic wound there that does need notable outpatient wound management. I have already contacted case management will be following up with the patient tomorrow morning in regards to this. In regards to the mild cellulitis he does recommend antibiotics orally at this time. With no evidence of significant systemic infection will start Levaquin 750 daily. We have sent wound cultures for her toe. We will place an orthopedic consult for outpatient management. At this time there is no clinical evidence of necrotizing fasciitis, systemic cellulitis or bacteremia or infection, or significant cellulitis requiring inpatient admission. I have extensively reviewed the treatment plan and discharge instructions with the patient. I have addressed all patient concerns at this time. The patient was made aware of what symptoms to monitor for that would warrant a return to the emergency department. Discussed the plan with the patient, they demonstrate verbal understanding and agreement with our assessment and plan at this time. FINDINGS: Bones/joints: No plain film evidence for osteomyelitis. If clinical concern for osteomyelitis consider MRI which is more sensitive in detecting early osteomyelitis. No fracture or dislocation. Soft tissues: Soft tissue swelling great toe and foot. IMPRESSION: No plain film evidence for osteomyelitis, however MRI is more sensitive in detecting early osteomyelitis. Consider MRI for further evaluation. Thank you for allowing us to participate in the care of your patient. Dictated and Authenticated by: Linda Desai MD 04/20/2019 6:26 PM Eastern Time ([place] & [place]) HPI General Date/Time Provider Initiated Documentation: 04/20/19 17:40. HPI Narrative: This is a 38-year-old female with a past medical history of previous drug use in the past which led to osteomyelitis and right sided BKA, who presents today for left great toe pain. Patient was seen 22 days ago here in the ED, mild amount of redness was noted in the left great toe, as well as some mild skin breakdown. Concern for very mild cellulitis. Patient was started on Keflex and Bactrim. She sees chronic wound care as an outpatient in [place]. She followed up with her PCP and there is been no significant improvement but also no significant worsening. Patient states that over the last 3 to 4 days though she has had a significant increase in her symptoms. She has had more pain, more redness, more swelling and tenderness. Patient denies any fever or chills whatsoever though. She denies any recent trauma, or IV drug use. She denies any other complaints. She took her antibiotics as directed and completed the course over a week ago. She denies any other complaints at this time. No other modifying factors. Related Data Home Medications Medication Instructions Recorded Confirmed methocarbamol 500 mg PO QID PRN 10/26/18 03/29/19 trazodone 50 mg PO QHS 10/26/18 03/29/19 apixaban 5 mg tablet 10 mg PO BID #120 tab 02/10/19 03/29/19 Buprenorphine/Naloxone [Suboxone 1 unit PO DAILY 03/14/19 03/29/19 12 MG-3 MG SL FILM] gabapentin 600 mg tablet 1,200 mg PO QHS tab 03/21/19 03/29/19 gabapentin 600 mg tablet 600 mg PO BID tab 03/21/19 03/29/19 norethindrone (contraceptive) 0.35 0.35 mg PO DAILY #84 tab 03/21/19 03/29/19 mg tablet acetaminophen 500 mg PO Q4H PRN #30 cap 03/29/19 prednisone 20 mg PO TID 03/29/19 03/29/19 levofloxacin [Levaquin] 750 mg PO DAILY #14 tab 04/20/19 Previous Rx's Medication Instructions Recorded apixaban 5 mg tablet 10 mg PO BID #120 tab 02/10/19 norethindrone (contraceptive) 0.35 0.35 mg PO DAILY #84 tab 03/21/19 mg tablet acetaminophen 500 mg PO Q4H PRN #30 cap 03/29/19 levofloxacin [Levaquin] 750 mg PO DAILY #14 tab 04/20/19 Allergies Allergy/AdvReac Type Severity Reaction Status Date / Time No Known Allergies Allergy Unverified 04/20/19 17:46 General Stated Complaint: Cellulitis LEIF: 3 Review of Systems All systems reviewed & are unremarkable except as noted in HPI and below PFSH Social History Smoking/Tobacco Use Status: Never Alcohol Intake: never Drug use: Current Sobriety Substance use type: former substance user, crack/cocaine, heroin and methamphetamine Details: former cocaine (snorted, smoked, IV) and heroin use (IV), as well as crystal meth (IV). Patient is currently enrolled at [facility], on suboxone Household members: children and other Details: Patient resides at her sister's house with her daughter Number of Children: 1 current occupation: Unemployed Seatbelt use: always Do you feel safe at home: Yes Do you feel safe in your relationship?: Yes Additional Social history: Ambulates with crutches - 2 falls recently Exam Narrative Exam Narrative: 1.Const: Well-nourished, Well-developed, appearing stated age 2.Eyes: PERRL, no conjunctival injection, and symmetrical lids. 3.ENT: Atraumatic external nose and ears. Moist MM. Neck: Symmetric, trachea midline, No thyromegaly. 4.CVS: +S1/S2, No murmurs or gallops. Peripheral pulses 2+ and equal in all extremities. Brisk capillary refill in all extremities. 5.RESP: Unlabored respiratory effort. Clear to auscultation bilaterally. No wheezes rales or rhonchi 6.GI: Soft, Nontender/Nondistended, No hepatosplenomegaly. No guarding or rebound. 7.MSK: Right-sided BKA. No abnormalities otherwise. Left side demonstrates mild erythema and warmth just proximal to the metatarsal phalangeal joint, minimal edema, distal to that is a notable ulcerated wound over the dorsal aspect of the great toe extending from the MTP joint going to the base of the nail. Notable degeneration of multiple layers of tissue, but no evidence of bony evidence. Decreased strength secondary to pain. There is a mild black eschar at the nailbed base. Capillary refill remains brisk. No other significant abnormalities. 8.Skin: Please see musculoskeletal 9.Neuro: network manager II-XII grossly intact. Sensation grossly intact, no focal neurologic deficits. 10.Psych: (AAO) x3. Appropriate mood and affect Course Vital Signs Vital signs: Vital Signs Temperature 36.7 C 04/20/19 17:41 Pulse 69 04/20/19 17:41 Respiratory Rate 20 04/20/19 17:41 Blood Pressure 120/86 04/20/19 17:41 Pulse Oximetry 100 04/20/19 17:41 Temperature 36.7 C 04/20/19 17:41 Temperature Source Skin 04/20/19 17:41 Pulse 69 04/20/19 17:41 Respiratory Rate 20 04/20/19 17:41 Blood Pressure 120/86 04/20/19 17:41 Blood Pressure Position Sitting 04/20/19 17:41 Pulse Oximetry 100 04/20/19 17:41 Oxygen Delivery Method Room Air 04/20/19 17:41 Oxygen Flow Rate 0 04/20/19 17:41
--- NOTE | 2019-04-20 18:05 | DI.RAD_ITS ---
EXAM: XR FOOT LT COMPLETE INDICATION: r/o osteo of great toe. COMPARISON: XR FOOT LT COMPLETE from 01/24/2019 TECHNIQUE: 2D digital imaging was performed. FINDINGS: No acute fracture or dislocation is seen. No destructive or erosive changes are seen in the bones to suggest acute osteomyelitis. There is soft tissue swelling of the great toe. No radiopaque foreign bodies are seen in the soft tissues. IMPRESSION: No radiographic evidence of acute osteomyelitis. If there is continued concern, an MRI examination s hould be considered.
--- NOTE | 2019-04-20 18:27 | DI.VRAD_ITS ---
PROCEDURE INFORMATION: Exam: XR Left Foot Complete Exam date and time: 04/20/2019 6:05 PM Age: 38 years old Clinical indication: Edema; Yes, it is localized; Patient HX: R/O osteo of left great toe. TECHNIQUE: Imaging protocol: XR Left foot. Views: 3 or more views. COMPARISON: CR XR FOOT LT COMPLETE 24/01/2019 20:54 FINDINGS: Bones/joints: No plain film evidence for osteomyelitis. If clinical concern for osteomyelitis consider MRI which is more sensitive in detecting early osteomyelitis. No fracture or dislocation. Soft tissues: Soft tissue swelling great toe and foot. IMPRESSION: No plain film evidence for osteomyelitis, however MRI is more sensitive in detecting early osteomyelitis. Consider MRI for further evaluation. Dictated and Authenticated by: Linda Desai MD. Ordering:BRYAN Zhao MD
[2019-04-20] MEDS: levoFLOXacin 250 MG TAB (18:31)
[2019-04-20] MEDS: levoFLOXacin 500 MG TAB (18:31)
--- NOTE | 2019-04-21 10:32 | PDOC.ERCMPRO ---
- If Service Date Differs Date of service: 04/21/19 Time of Service: 10:32 Care Management Progress Note Referral received from Dr. Antunez in the ED to follow up with wound care for Lindsay. CM contacted PCP office and spoke to Wendy. They will make a referral to [facility] for wound care. Joyce is to see Dr. Garcia's office for evaluation and wound care orders. Above information discussed with Joyce via phone call this morning.She agreed to follow up with Dr. Hanna's office.
== END 2019-04-20 18:42 | disposition home or self-care (01) ==
PROVIDERS: Emergency Provider Student in an Organized Health Care Education/Training Program; PCP Family Medicine
DX: L03.032 Cellulitis of left toe (principal); L97.521 Non-pressure chronic ulcer of other part of left foot limited to breakdown of skin; F11.21 Opioid dependence, in remission
CPT/HCPCS: 87077; 99283; 73630; 87070; 87186; 99284

== ENCOUNTER 2019-06-13 08:42 | Outpatient (CLI) | payer MEDICAID, SELFPAY ==
[2019-06-13 09:41] LABS: HCG Quant, Pregnancy < 1 mIU/mL (1-3)
== END 2019-06-13 09:02 ==
PROVIDERS: PCP Family Medicine; Visit Provider Family Medicine
DX: N92.6 Irregular menstruation, unspecified (principal)
CPT/HCPCS: 36415; 84702

== ENCOUNTER 2019-07-14 16:38 | Emergency (ER) | payer MEDICAID, SELFPAY ==
[2019-07-14 16:40] VITALS: BP 118/73; PULSE 77; RESP 18; TEMP 36.9; O2SAT 100
--- NOTE | 2019-07-14 16:45 | DI.RAD_ITS ---
EXAM: XR FOOT LT COMPLETE CLINICAL HISTORY: infection great toe. TECHNIQUE: 2D digital imaging was performed. COMPARISON: XR FOOT LT COMPLETE from 04/20/2019 FINDINGS: BONES: No acute fracture is present. No bony destructive lesion is seen. JOINTS: No dislocation present. SOFT TISSUE: Soft tissue swelling of the great toe. IMPRESSION: 1. Soft tissue swelling of the great toe. 2. No radiographic evidence of acute osteomyelitis. DATA REPOSITORY: RADIATION DOSE DELIVERED:
--- NOTE | 2019-07-14 16:56 | ED.GENADUL_ITS ---
Discharge Plan Disposition Patient Disposition: AGAINST MEDICAL ADVICE Discharge Details Chief Complaint: Cellulitis Clinical Impression: Cellulitis of great toe of left foot Primary Care Provider: Ratna Olivas ED Provider: Bubba Landeros Home Meds and New Rx's Prescriptions: New sulfamethoxazole-trimethoprim [Bactrim DS] 800-160 mg tablet 1 tab PO BID Qty: 19 RF: 0 cephalexin [Keflex] 500 mg capsule 500 mg PO QID Qty: 36 RF: 0 Continued gabapentin 600 mg tablet 1,200 mg PO QHS RF: 0 norethindrone (contraceptive) 0.35 mg tablet 0.35 mg PO DAILY Qty: 84 RF: 3 Eliquis 5 mg tablet 10 mg PO BID Qty: 120 RF: 3 Buprenorphine/Naloxone [Suboxone 12 MG-3 MG SL FILM] 1 EACH film 1 unit PO DAILY RF: 0 acetaminophen 500 mg capsule 500 mg PO Q4H PRN (Reason: pain) Qty: 30 RF: 0 trazodone 50 mg Tablet 50 mg PO QHS PRNRF: 0 gabapentin 600 mg tablet 600 mg PO BID RF: 0 Discharge Instructions Instructions: Against Medical Advice (ED) Additional Instructions: I am concerned that you have a severe infection of your foot. It was recom mended that you be admitted for IV antibiotics and further treatment. You are refusing this treatment plan and acknowledges that you may have lifestyle modifying or life-threatening disease. I will be prescribing you oral antibiotics to try to help the infection but I am worried that this will not cure the infection. Please return to the emergency department at any point for further treatment and work-up. Please follow-up with your primary care physician. Call tomorrow. Referrals: Ratna Olivas MD [Primary Care Provider] - Discharge Data Discharge Date/Time-TO BE ENTERED AT DEPARTURE: 07/14/19 18:50 Medical Decision Making 17:00 --38-year-old female with multiple medical problems including history of right lower extremity osteomyelitis status post partial amputation of her right lower leg, here with acute infection and chronic wound left great toe and associated cellulitis involving the foot. Plan for IV antibiotics and admission. Patient refusing plan as outlined. I explained my concerns and reasoning for treatment plan. Patient verbalized understanding of my concerns and does have decisional making capacity. She is agreeable to having blood work done as well as x-ray and initial dose of IV antibiotic but refuses additional antibiotic or treatment and request oral antibiotics be provided. I explained the limitations of oral antibiotics and again reiterated my concern that she may lose her foot or have worse lifestyle modifying or life-threatening disease that would go on treated should she refuse treatment outlined. Patient verbalized understanding and was appreciative of my concern. I will give cefepime 2 g IV and Bactrim orally in an attempt to try to treat this infection. 18:00 -- Nursing attempted IV access and unable to place IV. Patient now refusing IV or lab draw. Will give ceftriaxone 2g IM and bactrim. X-ray of the foot was reviewed and interpreted by radiology: IMPRESSION: 1. Soft tissue swelling of the foot and 1st and 2nd toe. 2. No acute bony findings. If clinical symptoms persist recommend followup film in 7-10 days. I again had a discussion with the patient about my diagnostic/treatment plan. Patient declines plan for admission and wishes to leave against medical advise. I reiterated my concerns her and explained the risks of leaving prior to completion of workup and treatment. I specifically emphasized the possibility of life-threatening or lifestyle modifying disease that would not be appropriately treated if they leave. Patient verbalized understanding of my concerns and the potential for life threatening or lifestyle modifying disease. Patient has capacity to make informed decision. I again explained my concerns and urged the patient to stay for treatment as outlined. Patient continued to refuse. I recommended that the patient follow-up with primary care physician MILENA or return to the Emergency Department at any time for further treatment as recommended. HPI General Mode of arrival: ambulatory . Date/Time Provider Initiated Documentation: 07/14/19 16:42 . Limitations to Documentation: no limitations . Information obtained by: patient . Related Data Home Medications Medication Instructions Recorded Confirmed trazodone 50 mg PO QHS PRN 10/26/18 07/14/19 apixaban 5 mg tablet 10 mg PO BID #120 tab 02/10/19 07/14/19 Buprenorphine/Naloxone [Suboxone 1 unit PO DAILY 03/14/19 07/14/19 12 MG-3 MG SL FILM] gabapentin 600 mg tablet 1,200 mg PO QHS tab 03/21/19 07/14/19 gabapentin 600 mg tablet 600 mg PO BID tab 03/21/19 07/14/19 norethindrone (contraceptive) 0.35 0.35 mg PO DAILY #84 tab 03/21/19 07/14/19 mg tablet acetaminophen 500 mg PO Q4H PRN #30 cap 03/29/19 07/14/19 cephalexin [Keflex] 500 mg PO QID #36 cap 07/14/19 sulfamethoxazole-trimethoprim 1 tab PO BID #19 tab 07/14/19 [Bactrim DS] Previous Rx's Medication Instructions Recorded apixaban 5 mg tablet 10 mg PO BID #120 tab 02/10/19 norethindrone (contraceptive) 0.35 0.35 mg PO DAILY #84 tab 03/21/19 mg tablet acetaminophen 500 mg PO Q4H PRN #30 cap 03/29/19 cephalexin [Keflex] 500 mg PO QID #36 cap 07/14/19 sulfamethoxazole-trimethoprim 1 tab PO BID #19 tab 07/14/19 [Bactrim DS] Allergies Allergy/AdvReac Type Severity Reaction Status Date / Time No Known Allergies Allergy Unverified 07/14/19 16:44 General Stated Complaint: Cellulitis LEIF: 3 [facility] Social History Smoking/Tobacco Use Status: Never Alcohol Intake: never Drug use: Current Sobriety Substance use type: former substance user, crack/cocaine, heroin and methamphetamine Details: former cocaine (snorted, smoked, IV) and heroin use (IV), as well as crystal meth (IV). Patient is currently enrolled at [facility], on suboxone Household members: children and other Details: Patient resides at her sister's house with her daughter Number of Children: 1 current occupation: Unemployed Seatbelt use: always Do you feel safe at home: Yes Do you feel safe in your relationship?: Yes Additional Social history: Ambulates with crutches - 2 falls recently Exam Const General: cooperative and no acute distress HENMT Mouth: moist mucous membranes Eyes Conjunctivae: normal conjunctivae Sclera: normal sclerae Resp Auscultation: clear to auscultation bilaterally, no rales, no rhonchi and no wheezes Cardio Rate: regular rate and not tachycardic Rhythm: regular rhythm Heart Sounds: murmur systolic (known) I/ GI Palpation: soft, not firm, no guarding, no masses, not rigid and nontender Skin General skin exam: no rashes or lesions noted Neuro General: patient alert, patient awake, patient oriented x3 and tone normal Extrem General: no edema Right lower extremity: lower leg (amputation) Left lower extremity: foot Details: tenderness Location: of the dorsal foot, edema Location: of the dorsal foot, vascular exam Details: dorsalis pedis pulse present and other (Ulcer dorsal great toe, purulent drainage, surrounding erythema and swelling extending to dorsal foot); no crepitus Psych Appearance: grossly normal Mental Status: mental status grossly normal Course Vital Signs Vital signs: Vital Signs Temperature 36.9 C 07/14/19 16:40 Pulse 77 07/14/19 16:40 Respiratory Rate 18 07/14/19 16:40 Blood Pressure 118/73 07/14/19 16:40 Pulse Oximetry 100 07/14/19 16:40 Temperature 36.9 C 07/14/19 16:40 Temperature Source Temporal Artery Scan 07/14/19 16:40 Pulse 77 07/14/19 16:40 Respiratory Rate 18 07/14/19 16:40 Respiratory Effort Non-Labored 07/14/19 16:43 Blood Pressure 118/73 07/14/19 16:40 Blood Pressure Position Sitting 07/14/19 16:40 Pulse Oximetry 100 07/14/19 16:40 Oxygen Delivery Method Room Air 07/14/19 16:40 Oxygen Flow Rate 0 07/14/19 16:40 Pain Level 5 07/14/19 16:40
[2019-07-14] MEDS: Sulfameth/Trimeth DS TAB 1 TAB PO (17:49)
[2019-07-14] MEDS: Lidocaine 1% Multi-Dose 50 ML VIAL (17:50)
--- NOTE | 2019-07-14 18:18 | DI.VRAD_ITS ---
PROCEDURE INFORMATION: Exam: XR Left Foot Complete Exam date and time: 07/14/2019 6:01 PM Age: 38 years old Clinical indication: Pain; Toes; Left TECHNIQUE: Imaging protocol: XR Left foot. Views: 3 or more views. COMPARISON: CR XR FOOT LT COMPLETE 20/04/2019 18:02 FINDINGS: Bones/joints: Unremarkable. The area of clinical pain was not marked on the film. Soft tissues: Soft tissue swelling along the dorsum of the foot and involving the 1st and 2nd toe. IMPRESSION: 1. Soft tissue swelling of the foot and 1st and 2nd toe. 2. No acute bony findings. If clinical symptoms persist recommend followup film in 7-10 days. Dictated and Authenticated by: Linda Desai MD. Ordering:ABRAHAM Mac MD
[2019-07-14] MEDS: cefTRIAXone 2 GM VIAL IM (18:30)
[2019-07-14 18:35] VITALS: BP 113/80; PULSE 72; RESP 16; TEMP 37; O2SAT 100
== END 2019-07-14 18:50 | disposition left against medical advice (07) ==
PROVIDERS: Emergency Provider Student in an Organized Health Care Education/Training Program; PCP Family Medicine
DX: L03.032 Cellulitis of left toe (principal); Z53.29 Procedure and treatment not carried out because of patient's decision for other reasons
CPT/HCPCS: 80053; 85652; 96372; 99284; 73630; 85025; 86140; 99283; J0696

== ENCOUNTER 2019-11-11 12:24 | Outpatient (REF) | payer MEDICAID, SELFPAY | END 2019-11-11 12:44 | LOC: LBN 12:24 | PROVIDERS: PCP Nurse Practitioner; Visit Provider Family Medicine | DX: L03.032 Cellulitis of left toe (principal) | CPT/HCPCS: 87077; 87070; 87186; 87205 ==

== ENCOUNTER 2020-03-29 00:49 | Outpatient (CLI) | payer MEDICARE, MEDICAID, SELFPAY ==
--- NOTE | 2020-03-29 08:00 | DI.RAD_ITS ---
EXAM: XR FOOT LT COMPLETE CLINICAL HISTORY: CHRONIC ULCER GREAT TOE LT FOOT,L97.524 TECHNIQUE: COMPARISON: No exams were available for comparison FINDINGS: Three views were obtained. There is soft tissue deformity of the great toe. The bones appear somewh at demineralized. No convincing focal erosive or destructive process identified. There are degenera tive changes of the joints of the midfoot and forefoot. IMPRESSION: Marked soft tissue abnormalities of great toe. No gross evidence of underlying osteomyelitis, if the re is a clinical suspicion of osteomyelitis evaluation with MRI would be recommended. RADIATION DOSE DELIVERED: Total DLP Total DLP
== END 2020-03-29 01:09 ==
PROVIDERS: PCP Nurse Practitioner; Visit Provider Nurse Practitioner
DX: L97.522 Non-pressure chronic ulcer of other part of left foot with fat layer exposed (principal); M79.89 Other specified soft tissue disorders
CPT/HCPCS: 73630

== ENCOUNTER 2020-03-31 00:44 | Outpatient (CLI) | payer MEDICARE, MEDICAID, SELFPAY ==
--- NOTE | 2020-03-31 10:30 | DI.NM_ITS ---
EXAM: NM BONE SCAN 3 PHASE CLINICAL HISTORY: CHRONIC ULCER GREAT TOE,L97.522. COMPARISON: CR XR PORTABLE CHEST AP POST LINE from 12/31/2018 CR,XR XR FOOT LT COMPLETE from 07/14/2019 EXAMINATION: Three-phase bone scan was performed with intravenous infusion of 26.0 millicuries of te chnetium 99 labeled methylene diphosphonate. FINDINGS: Flow images show increased flow to the left toe region. Immediate images show increased uptake in region of the 1st and 2nd toes of the left foot. Delayed images show markedly increased uptake of phalanges of the great toe and probably of the head of the 1st metatarsal as well. Moderate midfoot increased uptake noted, this finding may be on the b asis of degenerative change but is nonspecific. Whole body imaging shows below the knee amputation on the right with moderately increased uptake at t he tibial stump, consistent with bony stress. Mild increased uptake in mid lumbar spine, nonspecific , likely degenerative. Minimal increased uptake in both hips, also probably degenerative. Increased uptake in left humeral head, this correlates with a sclerotic bony lesion, most recent film s were in December 2018, additional evaluation with left shoulder radiographs recommended. IMPRESSION: The increased uptake in the right great toe raises the possibility of osteomyelitis of the head of th e 1st metatarsal and the phalanges of the great toe on the left. Indeterminate mildly increased upta ke in midfoot, additional evaluation with MRI may be considered if clinically appropriate. Increased uptake in the left humeral head, this corresponds to sclerotic irregular bony lesion which may be enchondroma. Correlation with MR examination of the shoulder recommended.
== END 2020-03-31 01:04 ==
PROVIDERS: PCP Nurse Practitioner; Visit Provider Nurse Practitioner
DX: L97.522 Non-pressure chronic ulcer of other part of left foot with fat layer exposed (principal)
CPT/HCPCS: 36415; 76942; 80053; 85652; 78315; 85025; 86140

== ENCOUNTER 2020-03-31 03:37 | Outpatient (CLI) | payer MEDICARE, MEDICAID, SELFPAY ==
[2020-03-31 10:27] LABS: Abs Immature Grans 0.02 10^3/uL (0.0-0.06); Absolute Basophil Count 0.02 10^3/uL (0.0-0.2); Absolute Eosinophil Count 0.15 10^3/uL (0.0-0.7); Absolute Lymphocyte Count 1.31 10^3/uL (1.2-3.4); Absolute Monocyte Count 0.54 10^3/uL (0.1-0.8); Absolute Neutrophil Count 4.82 10^3/uL (1.2-6.7); Basophils % 0.3; Eosinophils % 2.2; HCT 34.6 % (36.0-46.0); HGB 10.7 g/dL (11.2-15.7); Immature Grans % 0.3; Lymphocytes % 19.1; MCH 27.1 pg (27.0-33.0); MCHC 30.9 % (32.0-36.0); MCV 87.6 fL (80-95); MPV 11.4 fL (8.0-11.0); Monocytes % 7.9; Neutrophils % 70.2; Nucleated RBC 0 %; Platelet Count 214 10^3/uL (130-400); RBC 3.95 10^6/uL (3.93-5.22); RDW 13.2 % (11.7-14.6); RDW-SD 42.3 fL; WBC 6.86 10^3/uL (4.4-10.8)
[2020-03-31 10:32] LABS: ALT 15 U/L (14-59); AST 25 U/L (15-37); Albumin 3.7 g/dL (3.4-5.0); Alkaline Phosphatase 66 U/L (46-116); Anion Gap 7.1 mmol/L (3-11); BUN 24 mg/dL (7-18); Bilirubin, Total 0.3 mg/dL (0.2-1.0); C-Reactive Protein 0.48 mg/dL (0.0-0.3); CO2 25.9 mmol/L (21.0-32.0); CREATININE 0.81 mg/dL (0.55-1.02); Calcium 8.8 mg/dL (8.5-10.1); Chloride 104 mmol/L (98-107); Glucose 86 mg/dL (74-106); Potassium 4.7 mmol/L (3.5-5.1); Sodium 137 mmol/L (136-145); Total Protein 7.9 g/dL (6.4-8.2)
[2020-03-31 11:14] LABS: ESR 24 mm/hr (0-20)
== END 2020-03-31 03:57 ==
PROVIDERS: PCP Nurse Practitioner; Visit Provider Nurse Practitioner
DX: L97.522 Non-pressure chronic ulcer of other part of left foot with fat layer exposed (principal)
CPT/HCPCS: 36415; 80053; 85652; 85025; 86140

== ENCOUNTER 2020-04-07 12:57 | Outpatient (REF) | payer MEDICARE, MEDICAID, SELFPAY | END 2020-04-07 13:17 | LOC: LBO 12:57 | PROVIDERS: PCP Nurse Practitioner; Visit Provider Nurse Practitioner | DX: R30.0 Dysuria (principal) | CPT/HCPCS: 87077; 87086; 87186 ==

== ENCOUNTER 2020-05-13 08:40 | Outpatient (CLI) | payer MEDICARE, MEDICAID, SELFPAY ==
[2020-05-14 15:35] LABS: COVID-19 RT-PCR Result NEGATIVE (Negative)
== END 2020-05-13 09:00 ==
PROVIDERS: PCP Nurse Practitioner; Visit Provider Nurse Practitioner
DX: Z20.822 Contact with and (suspected) exposure to COVID-19 (principal)
CPT/HCPCS: U0003

== ENCOUNTER 2020-07-05 10:34 | Outpatient (REF) | payer MEDICARE, MEDICAID, SELFPAY ==
--- NOTE | 2020-07-05 10:15 | PAPFT_PTH ---
PATIENT: Lindsay Odonnell LOC: [facility]#:[id number] AGE/SX: 39/F ROOM: RE07/05/[address]: MITZI Jarrett : 1980 BED: DIS: 07/05/2020 SPEC #: [id number] RECD: 07/05/20 13:22 STATUS: SULEMAN REMitul #: [id number] VERNON: 07/05/20 10:[address]: Savannah Lisa DEPT: [facility] Cytology RECD BY: Rakel Tejada ENTERED: 07/05/20 13:23 SP TYPE: PAPFT OTHR DR: Georgette Reza APRN Tissues: 1 - CX/ENDOCX FOR PAP SMEARS Procedures: PAP THIN PREP/UVM Screening HPV DNA PROBE Comments: [id number]
[2020-07-06 14:27] LABS: Chlamydia Result Negative (Negative); GC Result Negative (Negative)
== END 2020-07-05 10:35 | disposition home or self-care (01) ==
LOC: LBN 10:34
PROVIDERS: PCP Nurse Practitioner; Visit Provider Nurse Practitioner Family
DX: Z11.3 Encounter for screening for infections with a predominantly sexual mode of transmission (principal); Z12.4 Encounter for screening for malignant neoplasm of cervix; Z11.51 Encounter for screening for human papillomavirus (HPV)
CPT/HCPCS: 87491; 87591; 88142; 87624

== ENCOUNTER 2020-08-27 10:20 | Outpatient (REF) | payer MEDICARE, MEDICAID, SELFPAY | END 2020-08-27 10:21 | disposition home or self-care (01) | LOC: LBN 10:20 | PROVIDERS: PCP Nurse Practitioner; Visit Provider Family Medicine | DX: L97.522 Non-pressure chronic ulcer of other part of left foot with fat layer exposed (principal) | CPT/HCPCS: 87077; 87070; 87186; 87205 ==

== ENCOUNTER 2020-12-23 17:25 | Outpatient (REF) | payer MEDICARE, MEDICAID, SELFPAY ==
[2020-12-24 12:28] LABS: HSV 1 DNA Result Negative (Negative); HSV 2 DNA Result Positive (Negative)
== END 2020-12-23 17:26 | disposition home or self-care (01) ==
LOC: LBN 17:25
PROVIDERS: PCP Nurse Practitioner; Visit Provider Nurse Practitioner Family
DX: N90.89 Other specified noninflammatory disorders of vulva and perineum (principal)
CPT/HCPCS: 87529

== ENCOUNTER 2021-02-10 15:34 | Outpatient (REF) | payer MEDICARE, MEDICAID, SELFPAY | END 2021-02-10 15:35 | disposition home or self-care (01) | LOC: LBN 15:34 | PROVIDERS: PCP Nurse Practitioner; Visit Provider Nurse Practitioner | DX: L97.522 Non-pressure chronic ulcer of other part of left foot with fat layer exposed; L03.032 Cellulitis of left toe | CPT/HCPCS: 87077; 87070; 87186; 87205 ==

== ENCOUNTER 2021-02-10 21:41 | Outpatient (CLI) | payer MEDICARE, MEDICAID, SELFPAY ==
--- NOTE | 2021-02-10 14:30 | DI.RAD_ITS ---
Exam(s) XR FOOT LT COMPLETE EXAM: XR FOOT LT COMPLETE CLINICAL HISTORY: r/o osteomyelitis,cellulitis toe of foot,chronic ulcer,l03.032,l97.522 TECHNIQUE: COMPARISON: CR,XR XR FOOT LT COMPLETE from 07/14/2019 FINDINGS: Three views were obtained. There are mild bleu articular degenerative changes of foot. There is repo rtedly cellulitis of toe and there appears to be marked soft tissue swelling of the great toe. No gr oss underlying bony erosion. IMPRESSION: No gross evidence of osteomyelitis by CT plain film criteria. If there is a high clinical suspicion of osteomyelitis, additional evaluation with MRI would be recommended. RADIATION DOSE DELIVERED: Total DLP
== END 2021-02-10 22:01 ==
PROVIDERS: PCP Nurse Practitioner; Visit Provider Nurse Practitioner
DX: L03.032 Cellulitis of left toe (principal); L97.522 Non-pressure chronic ulcer of other part of left foot with fat layer exposed; M24.175 Other articular cartilage disorders, left foot
CPT/HCPCS: 73630

== ENCOUNTER 2021-04-22 05:15 | Emergency (ER) | payer MEDICARE, MEDICAID, SELFPAY ==
[2021-04-22] VITALS (62 sets, daily range): BP systolic 44–151; BP diastolic 27–126; PULSE 71–194; RESP 11–118; TEMP 37.2; O2SAT 83–100
--- NOTE | 2021-04-22 05:19 | ED.GENADUL_ITS ---
Discharge Plan Disposition Patient Disposition: [facility] Condition: Serious Discharge Details Clinical Impression: Tenosynovitis, Sepsis Primary Care Provider: Georgette Reza ED Provider: Bubba Landeros Home Meds and New Rx's Prescriptions: No Action multivitamin [Daily Multi-Vitamin] Tablet 1 tab PO DAILY RF: 0 norethindrone (contraceptive) 0.35 mg tablet 0.35 mg PO DAILY Qty: 84 RF: 3 ibuprofen 800 mg tablet 800 mg PO TID PRN (Reason: pain) Qty: 90 RF: 2 cyclobenzaprine 10 mg tablet 10 mg PO HS PRN (Reason: muscle spasm) Qty: 30 RF: 2 buprenorphine-naloxone 2-0.5 mg film See Rx Instructions BC DAILY RF: 0 gabapentin 300 mg capsule 300 mg PO BID Qty: 60 RF: 1 Medical Decision Making <Chris Miller MD - Last Filed: 04/22/21 08:02> Patient presenting with obvious right hand infection with concern for necrotizing fasciitis due to pain extending all the way up her arm and pain with movement of the arm. There is no crepitus appreciated. Unfortunately patient has extremely poor vascular access. Multiple attempts by nursing staff and myself with ultrasound guidance to establish peripheral IV were unsuccessful. We were able to at least obtain blood. Patient verbally consented to left subclavian catheter placement. She has had both IJ and subclavian line in the past. Unfortunately, patient unable to tolerate the needle being slid under the clavicle and procedure aborted. She has a significant elevated white count as well as sed rate and C-reactive protein. Chemistries are good. She is tachycardic but hemodynamically has had good blood pressure. She did receive IM Toradol. She is on Suboxone so subdissociative ketamine is ordered for pain control once access obtained. Case discussed with oncoming physician Dr. Landeros. He will attempt central line placement. CT of the right upper extremity ordered to evaluate for necrotizing fasciitis. Portable chest x-ray ordered post subclavian attempt. Lab Data Lab results reviewed: Yes I reviewed the patient's lab results. <Bubba Landeros MD - Last Filed: 04/22/21 13:51> 745 -- Care signed out by Dr. Miller, plan at signout was to obtain IV access and then obtain CT to assess for necrotizing fasciitis or deep space infection. --Right internal jugular central line was placed by me under direct ultrasound visualization without complication. X-ray was obtained post central line placement and no pneumothorax, central line intact terminating in SVC. --CT of the right upper extremity was interpreted by radiology: IMPRESSION: 1. No bony abnormality. 2. Subcutaneous edema or cellulitis around the hand. 3. No abscess seen. 4. There is fluid around the flexor tendons in the carpal tunnel and small amount of fluid in the extensor tendon sheaths consistent with tenosynovitis. We will administer vancomycin and ceftriaxone IV. 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 [place] [facility] [place]. Awaiting callback. [phone] --I received call back from [facility] with need for surgical assessment but unfortunately did not have beds to accept the patient in transfer. [facility] transfer center contacted. Awaiting call back. --I spoke with Dr. Bolden, on-call orthopedics at [facility] as well as Dr. Alvarez emergency physician, they will accept the patient in transfer. Patient reassessed prior to transfer and heart rate has improved with approximately 2 L of IV fluid resuscitation. Blood pressure stable Lab Data Lab results reviewed: Yes I reviewed the patient's lab results. Labs: 04/22/21 09:20 Blood Blood Culture - Pending 04/22/21 06:55 Blood Blood Culture - Pending Laboratory Tests Range/Units 04/22/21 04/22/21 04/22/21 06:55 06:55 06:55 WBC (4.4-10.8) 10^3/uL RBC (3.93-5.22) 10^6/uL Hgb (11.2-15.7) g/dL Hct (36.0-46.0) % MCV (80-95) fL MCH (27.0-33.0) pg MCHC (32.0-36.0) % RDW (11.7-14.6) % Plt Count (130-400) 10^3/uL MPV (8.0-11.0) fL Immature Gran % Neutrophils % Lymphocytes % Monocytes % Eosinophils % Basophils % Nucleated RBC % % Absolute Neutrophils (1.2-6.7) 10^3/uL Absolute Lymphocytes (1.2-3.4) 10^3/uL Absolute Monocytes (0.1-0.8) 10^3/uL Absolute Eosinophils (0.0-0.7) 10^3/uL Absolute Basophils (0.0-0.2) 10^3/uL ESR (0-20) mm/hr 61 H VBG Lactate (0.6-1.4) mmol/L 1.5 H Sodium (136-145) mmol/L Potassium (3.5-5.1) mmol/L Chloride (98-107) mmol/L Carbon Dioxide (21.0-32.0) mmol/L Anion Gap (3-11) mmol/L BUN (7-18) mg/dL Creatinine (0.55-1.02) mg/dL Estimated GFR/1.73 m2 (mL/min/1.73m2) Glucose (74-106) mg/dL Calcium (8.5-10.1) mg/dL Total Bilirubin (0.2-1.0) mg/dL AST (15-37) U/L ALT (14-59) U/L Alkaline Phosphatase (46-116) U/L C-Reactive Protein (0.0-0.3) mg/dL 23.04 H Total Protein (6.4-8.2) g/dL Albumin (3.4-5.0) g/dL Urine Opiates Screen (Negative) Urine Methadone Screen (Negative) Ur Barbiturates Screen (Negative) Ur Tricyclics Screen (Negative) Ur Amphetamines Screen (Negative) U Benzodiazepines Scrn (Negative) Urine Cocaine Screen (Negative) Ur THC Screen (Negative) COVID-19 Source SARS-CoV-2 (PCR) (Negative) Range/Units 04/22/21 04/22/21 04/22/21 06:55 06:55 07:55 WBC (4.4-10.8) 10^3/uL 17.29 H RBC (3.93-5.22) 10^6/uL 3.68 L Hgb (11.2-15.7) g/dL 10.4 L Hct (36.0-46.0) % 32.9 L MCV (80-95) fL 89.4 MCH (27.0-33.0) pg 28.3 MCHC (32.0-36.0) % 31.6 L RDW (11.7-14.6) % 12.8 Plt Count (130-400) 10^3/uL 162 MPV (8.0-11.0) fL 12.1 H Immature Gran % 0.7 Neutrophils % 89.2 Lymphocytes % 2.7 Monocytes % 7.1 Eosinophils % 0.1 Basophils % 0.2 Nucleated RBC % % 0 Absolute Neutrophils (1.2-6.7) 10^3/uL 15.42 H Absolute Lymphocytes (1.2-3.4) 10^3/uL 0.47 L Absolute Monocytes (0.1-0.8) 10^3/uL 1.23 H Absolute Eosinophils (0.0-0.7) 10^3/uL 0.02 Absolute Basophils (0.0-0.2) 10^3/uL 0.03 ESR (0-20) mm/hr VBG Lactate (0.6-1.4) mmol/L Sodium (136-145) mmol/L 138 Potassium (3.5-5.1) mmol/L 3.4 L Chloride (98-107) mmol/L 102 Carbon Dioxide (21.0-32.0) mmol/L 22.9 Anion Gap (3-11) mmol/L 13.1 H BUN (7-18) mg/dL 8 Creatinine (0.55-1.02) mg/dL 0.7 Estimated GFR/1.73 m2 (mL/min/1.73m2) >= 60.00 Glucose (74-106) mg/dL 100 Calcium (8.5-10.1) mg/dL 8.6 Total Bilirubin (0.2-1.0) mg/dL 0.5 AST (15-37) U/L 46 H ALT (14-59) U/L 45 Alkaline Phosphatase (46-116) U/L 111 C-Reactive Protein (0.0-0.3) mg/dL Total Protein (6.4-8.2) g/dL 7.7 Albumin (3.4-5.0) g/dL 3.5 Urine Opiates Screen (Negative) Urine Methadone Screen (Negative) Ur Barbiturates Screen (Negative) Ur Tricyclics Screen (Negative) Ur Amphetamines Screen (Negative) U Benzodiazepines Scrn (Negative) Urine Cocaine Screen (Negative) Ur THC Screen (Negative) COVID-19 Source Nasal/Nares SARS-CoV-2 (PCR) (Negative) Negative Range/Units 12/24/21 09:20 WBC (4.4-10.8) 10^3/uL RBC (3.93-5.22) 10^6/uL Hgb (11.2-15.7) g/dL Hct (36.0-46.0) % MCV (80-95) fL MCH (27.0-33.0) pg MCHC (32.0-36.0) % RDW (11.7-14.6) % Plt Count (130-400) 10^3/uL MPV (8.0-11.0) fL Immature Gran % Neutrophils % Lymphocytes % Monocytes % Eosinophils % Basophils % Nucleated RBC % % Absolute Neutrophils (1.2-6.7) 10^3/uL Absolute Lymphocytes (1.2-3.4) 10^3/uL Absolute Monocytes (0.1-0.8) 10^3/uL Absolute Eosinophils (0.0-0.7) 10^3/uL Absolute Basophils (0.0-0.2) 10^3/uL ESR (0-20) mm/hr VBG Lactate (0.6-1.4) mmol/L Sodium (136-145) mmol/L Potassium (3.5-5.1) mmol/L Chloride (98-107) mmol/L Carbon Dioxide (21.0-32.0) mmol/L Anion Gap (3-11) mmol/L BUN (7-18) mg/dL Creatinine (0.55-1.02) mg/dL Estimated GFR/1.73 m2 (mL/min/1.73m2) Glucose (74-106) mg/dL Calcium (8.5-10.1) mg/dL Total Bilirubin (0.2-1.0) mg/dL AST (15-37) U/L ALT (14-59) U/L Alkaline Phosphatase (46-116) U/L C-Reactive Protein (0.0-0.3) mg/dL Total Protein (6.4-8.2) g/dL Albumin (3.4-5.0) g/dL Urine Opiates Screen (Negative) Negative Urine Methadone Screen (Negative) Negative Ur Barbiturates Screen (Negative) Negative Ur Tricyclics Screen (Negative) Negative Ur Amphetamines Screen (Negative) Negative U Benzodiazepines Scrn (Negative) Negative Urine Cocaine Screen (Negative) Positive A Ur THC Screen (Negative) Negative COVID-19 Source SARS-CoV-2 (PCR) (Negative) HPI <Chris Miller MD - Last Filed: 04/22/21 08:02> General Mode of arrival: EMS . Date/Time Provider Initiated Documentation: 04/22/21 05:19 . Limitations to Documentation: no limitations . Information obtained by: patient, RN notes reviewed and old records reviewed . HPI Narrative: Patient presents to ED by ambulance with right hand pain and swelling. She reports this started about 24 hours ago. At this point she has pain all the way up to her shoulder. She has a ring on her right ring finger that she cannot get off. She has history of IVDA but denies current use. She is status post a right BKA because of osteomyelitis distally felt to be related to seeding and sepsis though never diagnosed with endocarditis or MRSA. Currently being followed in [place] for a wound to her left big toe and foot that will not heal. That is unchanged and stable. She began spiking fever last night. She was febrile for EMS. She denies cough, shortness of breath, chest pain, abdominal pain, vomiting. EMS did attempt IV which was unsuccessful. Related Data Home Medications Medication Instructions Recorded Confirmed buprenorphine 2 mg-naloxone 0.5 mg See Rx Instructions BC DAILY 04/07/20 04/22/21 sublingual film multivitamin 1 tab PO DAILY 07/05/20 04/22/21 norethindrone (contraceptive) 0.35 0.35 mg PO DAILY #84 tab 07/05/20 04/22/21 mg tablet cyclobenzaprine 10 mg tablet 10 mg PO HS PRN #30 tab 01/27/21 04/22/21 ibuprofen 800 mg tablet 800 mg PO TID PRN #90 tab 02/10/21 04/22/21 gabapentin 300 mg capsule 300 mg PO BID #60 cap 03/30/21 04/22/21 Previous Rx's Medication Instructions Recorded norethindrone (contraceptive) 0.35 0.35 mg PO DAILY #84 tab 07/05/20 mg tablet cyclobenzaprine 10 mg tablet 10 mg PO HS PRN #30 tab 01/27/21 ibuprofen 800 mg tablet 800 mg PO TID PRN #90 tab 02/10/21 gabapentin 300 mg capsule 300 mg PO BID #60 cap 03/30/21 Allergies Allergy/AdvReac Type Severity Reaction Status Date / Time No Known Allergies Allergy Verified 04/22/21 05:22 General LEIF: 3 Review of Systems <Chris Miller MD - Last Filed: 04/22/21 08:02> Narrative: 02/10 Review of Systems completed and is negative except as stated above in HPI (Systems reviewed: Const, Eyes, ENT, Resp, CV, GI, , MSK, Skin, Neuro) PFSH <Chris Miller MD - Last Filed: 04/22/21 08:02> All Active Problems (Updated 04/22/21 @ 13:50 by Bubba Landeros MD) Tenosynovitis (Acute) Sepsis (Acute) Cellulitis of toe of left foot (Acute) Abnormal finding on imaging (Acute) Abnormal MRI (Acute) Dysuria (Acute) 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 Patient has appointment at [facility] in [place] for consideration of termination History of intravenous drug abuse (Acute) Cellulitis of left lower extremity (Acute) Poor intravenous access (Acute) Chronic infection as complication of amputation (Acute) Heart murmur (Acute) Hypotension (Chronic) Petechial rash (Acute) Acute on chronic anemia (Acute) Osteomyelitis of right lower extremity (Chronic) DVT, lower extremity, distal, acute (Acute) 10/24 2018 left lower extremity. Rx with Eliquis. Abnormal uterine bleeding (AUB) (Acute) On. Set 10/24/2018 heavy flow coinciding with initiation of Eliquis Normocytic hypochromic anemia (Acute) 10/26/2018 hemoglobin 8.2 MCV 83 Medical History Endometriosis Hx of hepatitis C AB +. No viral load. Hx of opioid abuse Currently in treatment at [facility]. Suboxone. Raynaud disease Surgical History Complete below knee amputation of right lower extremity 2018. 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 [facility]. 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 H/O hand surgery contracted post-op History of transesophageal echocardiography (YG) negative Retained foreign body L groin, s/p unsuccessful exploratory surgery Family History Father Diabetes Paternal Grandfather Diabetes Paternal Aunt Diabetes Maternal Grandmother Breast cancer Maternal Aunt Multiple sclerosis Social History Smoking/Tobacco Use Status: Never Smoking risk assessment performed?: Yes Alcohol Intake: former Drug use: Current Sobriety Substance use type: former substance user, crack/cocaine, heroin and methamphetamine Details: former cocaine (snorted, smoked, IV) and heroin use (IV), as well as crystal meth (IV). Patient is currently enrolled at [facility], on suboxone Household members: children and other Details: Patient resides at her sister's house with her daughter Housing: apartment Number of Children: 1 current occupation: Unemployed Sexually active: Yes Do you think of yourself as: straight/heterosexual Current gender identity: female Seatbelt use: always Do you feel safe at home: Yes Do you feel safe in your relationship?: Yes Additional Social history: Ambulates with crutches - 2 falls recently Exam <Chris Miller MD - Last Filed: 04/22/21 08:02> Narrative Exam Narrative: Const: WDWN female in NAD. HEENT: NC/AT. Normal facial exam. Eyes: Normal conjunctiva and sclera. Neck: Supple. Trachea midline. Lungs: Normal respiratory effort. Lungs are clear. Cor: RRR without murmur/gallop. Good radial pulses. GI: Soft. NT/ND. Neuro: A+O x 3. Normal speech, mentation. Cranial nerves II - XII grossly intact. No gross motor or sensory deficit. Ext: No C/C. Right BKA present. Left big toe ulcer extending proximally to dorsum and circumferential around the toe. No surrounding swelling or erythema. Right hand extremely erythematous, edematous, tender. Decreased range of motion of fingers and wrist because of swelling and pain. Redness to about the proximal third part of her forearm. Tenderness all the way up her arm. No crepitus appreciated. Radial pulse intact. Left hand clawed and deformed from previous surgery. Skin: Warm and dry without rash. Procedures <Chris Miller MD - Last Filed: 04/22/21 08:02> Central Line Placement Left SC: Time Out Performed: Yes Patient Placed on Monitor/Pulse Ox: Yes Prep: mask, gown and gloves Central Line Prep: Chlorhexidine scrub and sterile drapes applied Local Anesthetic: Lidocaine 1% Amount of anesthesia used (mL): 5 Ultrasound Used for Placement: No Additional Comments: Patient unable to tolerate needle being slid under clavicle despite multiple attempts and repositioning. Procedure aborted due to patient discomfort. portable CXR ordered <Bubba Landeros MD - Last Filed: 04/22/21 13:51> Central Line Placement Right IJ: Time Out Performed: Yes Patient Placed on Monitor/Pulse Ox: Yes Prep: mask, gown and gloves Central Line Prep: Chlorhexidine scrub Local Anesthetic: Lidocaine 1% Amount of anesthesia used (mL): 6 Ultrasound Used for Placement: Yes Central Line Lumen Inserted: triple Post Procedure: good blood return, all ports aspirated, flushed, capped and sutured in place with 3-0 nylon Post Procedure X-Ray: tip of catheter in good position Patient Tolerated Procedure: well and no complications Complications: none <Bubba Landeros MD - Last Filed: 04/22/21 13:51> Critical Care Time Critical Care Time: Yes Total Critical Care Time: 40 Attestation: I spent greater than 40 minutes addressing this patient's immediate life threats. Please see MDM section of note. This time was spent engaged in work directly related to the patient's care, exclusive of separate procedures, and failure to initiate these interventions would have likely resulted in clinically significant or life threatening deterioration in the patient's condition. Sign Out <Chris Miller MD - Last Filed: 04/22/21 08:02> Sign Out Data: Sign Out Comment: pending access and imaging, Vanco ordered as well as subdissociative ketamine once line established Last updated by Chris Miller MD at 04/22/21 08:04
--- NOTE | 2021-04-22 05:30 | DI.CT_ITS ---
Exam(s) CT UPPER EXTREMITY RT W EXAM: CT UPPER EXTREMITY RT W CLINICAL HISTORY: rt arm infection TECHNIQUE: Imaging Protocol: Axial computed tomography images with coronal and sagittal reformatted images were created and reviewed. CONTRAST MATERIAL: Intravenous: Omnipaque 350 Contrast volume:structured data in ml Contrast route:I V - Oral: yes / no COMPARISON: CR,XR XR PORTABLE CHEST AP POST LINE from 04/22/2021 FINDINGS: Osseous: No fractures. No osseous lesions. No evidence of osteomyelitis. Soft tissues: There is no ipsilateral axillary adenopathy. No elbow joint effusion. No soft tissue abscess seen. There is subcutaneous stranding in the hand in wrist probable cellulitis pattern. The re is fluid density around the tendons within the carpal tunnel; less so over the dorsal aspect of th e hand. There is no delineate bowl abscess evident. There is no obvious focal skin defect. No radi opaque foreign body. IMPRESSION: There is subcutaneous edema/cellulitis pattern around the hand and wrist. There is no distinct soft tissue abscess. There is fluid within the carpal tunnel around the flexor tendons at this level. No osseous abnormality evident. RADIATION DOSE DELIVERED: 867.01mGy.cm Total DLP DATA REPOSITORY: All CT scans at this facility are submitted to the National Radiology Data Registry (NRDR) Dose Index Registry (DIR) with the [employer] ([employer]). RADIATION OPTIMIZATION: All CT scans at this facility use at least one of these dose optimization te chniques: automated exposure control; mA and/or kV adjustment per patient size (includes targeted exa ms where dose is matched to clinical indication); or iterative reconstruction.
[2021-04-22 07:03] LABS: Lactate 1.5 mmol/L (0.6-1.4)
[2021-04-22] MEDS: Ketorolac 30 MG/ML VIAL IM (07:03)
[2021-04-22 07:04] LABS: Abs Immature Grans 0.12 10^3/uL (0.0-0.06); Absolute Basophil Count 0.03 10^3/uL (0.0-0.2); Basophils % 0.2; Eosinophils % 0.1; HCT 32.9 % (36.0-46.0); HGB 10.4 g/dL (11.2-15.7); Immature Grans % 0.7; Lymphocytes % 2.7; MCH 28.3 pg (27.0-33.0); MCHC 31.6 % (32.0-36.0); MCV 89.4 fL (80-95); MPV 12.1 fL (8.0-11.0); Monocytes % 7.1; Neutrophils % 89.2; Nucleated RBC 0 %; Platelet Count 162 10^3/uL (130-400); RBC 3.68 10^6/uL (3.93-5.22); RDW 12.8 % (11.7-14.6); RDW-SD 42.1 fL; WBC 17.29 10^3/uL (4.4-10.8)
[2021-04-22 07:06] LABS: Absolute Eosinophil Count 0.02 10^3/uL (0.0-0.7); Absolute Lymphocyte Count 0.47 10^3/uL (1.2-3.4); Absolute Monocyte Count 1.23 10^3/uL (0.1-0.8); Absolute Neutrophil Count 15.42 10^3/uL (1.2-6.7)
[2021-04-22 07:08] LABS: ESR 61 mm/hr (0-20)
[2021-04-22 07:18] LABS: C-Reactive Protein 23.04 mg/dL (0.0-0.3)
[2021-04-22 07:19] LABS: ALT 45 U/L (14-59); AST 46 U/L (15-37); Albumin 3.5 g/dL (3.4-5.0); Alkaline Phosphatase 111 U/L (46-116); Anion Gap 13.1 mmol/L (3-11); BUN 8 mg/dL (7-18); Bilirubin, Total 0.5 mg/dL (0.2-1.0); CO2 22.9 mmol/L (21.0-32.0); CREATININE 0.7 mg/dL (0.55-1.02); Calcium 8.6 mg/dL (8.5-10.1); Chloride 102 mmol/L (98-107); Glucose 100 mg/dL (74-106); Potassium 3.4 mmol/L (3.5-5.1); Sodium 138 mmol/L (136-145); Total Protein 7.7 g/dL (6.4-8.2)
--- NOTE | 2021-04-22 07:30 | DI.RAD_ITS ---
Exam(s) XR PORTABLE CHEST AP EXAM: XR PORTABLE CHEST AP CLINICAL HISTORY: attempted central line placement. TECHNIQUE: 2D digital imaging was performed. COMPARISON: CR XR PORTABLE CHEST AP POST LINE from 12/31/2018 FINDINGS: Heart size is upper normal. The mediastinum is not widened. Lungs are clear. No infiltrates nor obvious pleural effusions. IMPRESSION: No acute pulmonary findings on this single AP portable view of the chest. I note that a right subclavian central line was evident on the prior study listed above. DATA REPOSITORY: RADIATION DOSE DELIVERED: All CT scans at this facility use at least one of these dose optimization techniques: automated exposure control; mA and/or kV adjustment per patient size (includes targeted e xams where dose is matched to clinical indication); or iterative reconstruction.
[2021-04-22 07:57] LABS: Source Nasal/Nares
[2021-04-22] MEDS: Lidocaine 1% Pres-Free 5 ML VIAL (08:00)
[2021-04-22] MEDS: HYDROmorphone 2 MG/ML VIAL 1 MG IM (08:15)
[2021-04-22 08:39] LABS: COVID-19 PCR Negative (Negative)
--- NOTE | 2021-04-22 08:45 | DI.RAD_ITS ---
Exam(s) XR PORTABLE CHEST AP POST LINE EXAM: XR PORTABLE CHEST AP POST LINE CLINICAL HISTORY: status post central line. TECHNIQUE: 2D digital imaging was performed. COMPARISON: CR,XR XR PORTABLE CHEST AP from 04/22/2021 FINDINGS: Heart size is upper normal. The mediastinum is not widened. There has been interval placement of a right supra clavi in central line. Its distal tip is in the S VC. There is no pneumothorax. No mediastinal widening. IMPRESSION: No acute pulmonary findings on this single AP portable view of the chest. Distal tip of the newly placed right jugular venous catheter is in the SVC, in satisfactory position. DATA REPOSITORY: RADIATION DOSE DELIVERED: All CT scans at this facility use at least one of these dose optimization techniques: automated exposure control; mA and/or kV adjustment per patient size (includes targeted e xams where dose is matched to clinical indication); or iterative reconstruction.
--- NOTE | 2021-04-22 09:13 | DI.VRAD_ITS ---
PROCEDURE INFORMATION: Exam: XR Chest Exam date and time: 04/22/2021 7:42 AM Age: 40 years old Clinical indication: Other: Attempted central line placement TECHNIQUE: Imaging protocol: XR of the chest. Views: 1 view. COMPARISON: CR XR PORTABLE CHEST AP POST LINE 12/31/2018 10:55 AM FINDINGS: Lungs: Unremarkable. No consolidation. Pleural spaces: Unremarkable. No pleural effusion. No pneumothorax. Heart/Mediastinum: Unremarkable. No cardiomegaly. Bones/joints: Unremarkable. IMPRESSION: No acute findings. Dictated and Authenticated by: Kamran Busch MD. Ordering:MARIN Perez MD
[2021-04-22] MEDS: VANCOMYCIN 1,500 MG in Normal Saline 250 ML 166.6666 MG IVPB (09:30)
[2021-04-22] MEDS: Lactated Ringers 1,000 ML 1000 ML IV ×2 (09:30→12:00)
--- NOTE | 2021-04-22 09:38 | DI.VRAD_ITS ---
PROCEDURE INFORMATION: Exam: XR Chest Exam date and time: 04/22/2021 8:56 AM Age: 40 years old Clinical indication: Other: Status post central line TECHNIQUE: Imaging protocol: XR of the chest. Views: 1 view. COMPARISON: XR PORTABLE CHEST AP 04/22/2021 7:54 AM FINDINGS: Tubes, catheters and devices: A right jugular venous catheter is present with the tip projecting in the SVC. Lungs: Unremarkable. No consolidation. Pleural spaces: Unremarkable. No pleural effusion. No pneumothorax. Heart/Mediastinum: Unremarkable. No cardiomegaly. Bones/joints: Unremarkable. IMPRESSION: 1. The tip of the right jugular venous catheter projects on the SVC. 2. No acute cardiopulmonary abnormality. Dictated and Authenticated by: Kamran Busch MD. Ordering:MARIN Perez MD
[2021-04-22 09:45] LABS: *AMPHETAMINES SCREEN URINE Negative (Negative); *BARBITURATES SCREEN URINE Negative (Negative); *BENZODIAZEPINES SCREEN URINE Negative (Negative); Cannabinoids THC Negative (Negative); Cocaine Screen,Urine Positive (Negative); METHADONE URINE SCREEN Negative (Negative); OPIATES URINE SCREEN Negative (Negative)
[2021-04-22 09:47] LABS: Tricyclic Antidepressants Negative (Negative)
[2021-04-22] MEDS: cefTRIAXone 2 GM/50 ML BAG IVPB (10:23)
[2021-04-22] MEDS: Omnipaque 350 MG/ML 100 ML BTL IV (10:54)
[2021-04-22] MEDS: Normal Saline Flush 10 ML SYR IVP (10:56)
--- NOTE | 2021-04-22 11:00 | DI.VRAD_ITS ---
PROCEDURE INFORMATION: Exam: CT Right Upper Extremity With Contrast Exam date and time: 04/22/2021 5:39 AM Age: 40 years old Clinical indication: Other: RT arm infection TECHNIQUE: Imaging protocol: CT of the Right upper extremity with intravenous contrast was performed. Contrast material: OMNIPAQUE 350; Contrast volume: 100 ml; Contrast route: INTRAVENOUS (IV); Other contrast: rt arm infection; COMPARISON: XR PORTABLE CHEST AP 04/22/2021 8:59 AM FINDINGS: Bones/joints: Normal. No acute fracture or dislocation. Soft tissues: Fluid surrounds the flexor tendons in the carpal tunnel. There is a small amount of fluid in the extensor tendon sheaths in the hand. There is subcutaneous infiltration and swelling in the hand especially over the dorsum. No other discrete fluid collection or abscess is seen. There is no subcutaneous emphysema. The arm and forearm are unremarkable. IMPRESSION: 1. No bony abnormality. 2. Subcutaneous edema or cellulitis around the hand. 3. No abscess seen. 4. There is fluid around the flexor tendons in the carpal tunnel and small amount of fluid in the extensor tendon sheaths consistent with tenosynovitis. Dictated and Authenticated by: Kamran Busch MD. Ordering:MARIN Perez MD
--- NOTE | 2021-04-22 11:32 | NUR.NOTE ---
states she smoked cocaine a few days ago for pain relief. says she has not injected in her arms or hands in years.
[2021-04-22] MEDS: HYDROmorphone 2 MG/ML VIAL (12:07)
[2021-04-22] MEDS: HYDROmorphone 2 MG/ML VIAL 1 MG IVP (13:50)
--- NOTE | 2021-04-23 13:59 | NUR.NOTE ---
Nursing Note: Patient was transferred to [place] [id number]. MRSA result was faxed to this unit. Louise Daley
== END 2021-04-22 13:55 ==
PROVIDERS: Emergency Medicine; Emergency Provider Student in an Organized Health Care Education/Training Program; PCP Nurse Practitioner
DX: M65.841 Other synovitis and tenosynovitis, right hand (principal); A41.9 Sepsis, unspecified organism; F11.11 Opioid abuse, in remission; D64.9 Anemia, unspecified
CPT/HCPCS: 36556; 71045; 80053; 80307; 85652; 87040; 87081; 87635; 96361; 96365; 96366; 96368; 96372; 96375; 99291; 73201; 83605; 85025; 86140; J1885; J3490

== ENCOUNTER 2021-07-23 14:29 | Inpatient (IN) | payer MEDICARE, MEDICAID, SELFPAY ==
[2021-07-23 14:35] VITALS: BP 135/81; PULSE 79; O2SAT 96
--- NOTE | 2021-07-23 14:43 | W.ED.GENAD ---
Discharge Plan Disposition Patient Disposition: [facility] INPATIENT Condition: Stable Discharge Details Clinical Impression: Osteomyelitis of finger of right hand, Cellulitis of finger of right hand, Open wound of finger of right hand, Tenosynovitis of finger, Leg wound, right Admit Date/Time: 07/23/21 19:21 Admit Provider: Abdirahman Molina Attending Provider: Abdirahman Molina Primary Care Provider: Georgette Reza ED Provider: Edith Barahona Discharge Data Discharge Date/Time-TO BE ENTERED AT DEPARTURE: 07/23/21 20:56 Medical Decision Making 1510 -- 40-year-old female with a history of former IV drug abuse and right BKA secondary to osteomyelitis presents with right hand and right leg stump injury and concern for infection status post fall 2-weeks ago. Review of records notes that patient was transferred to [facility] in March 2021 for right wrist tenosynovitis. She states she was treated for cellulitis and had carpal tunnel surgery at that time. Unable to obtain [facility] records at this time. Vitals within normal limits. Patient appears comfortable and nontoxic. There is an open wound on the dorsal aspect of the right third finger with significant cellulitis of the entire finger with pain with passive extension and tenderness along extensor and flexor surface. There is also a crusted wound noted on the distal aspect of the right second finger along with moderate cellulitis of the entire finger. There is edema of the right hand which patient states is chronic status post carpal tunnel surgery in March 2021. There is a proximal noted on the inferior aspect of the right leg stump with surrounding tenderness but no significant celluliltis. There is concern for osteomyelitis and tenosynovitis of the right 3rd finger. No clinical signs to suggest necrotizing fasciitis of the right 3rd finger at this time. Patient has a history of poor peripheral access. Will obtain screening labs, x-rays of the hand and right leg in addition to CT of her right hand. 1700 --Long delay in obtaining labs due to lack of access. Multiple staff members attempted without success. Anesthesia called for midline placement and labs. IV vancomycin and cefepime ordered. Right hand imaging reviewed and notes IMPRESSION: Severe erosive change of bony margins of 3rd proximal interphalangeal joint, malalignment and severe soft tissue swelling, likely osteomyelitis, severe cellulitis and necrotizing soft tissue infection. Right tib-fib imaging reviewed and no acute findings. Images reviewed and case discussed with ortho court commissioner Dr. Ibarra -- she has some chronic appearing exam findings but recommends transfer to [facility] as patient was treated there in March for right wrist cellulitis and tenosynovitis. [facility] transfer center orthopedic consult and transfer initiated. Labs reviewed. Normal white blood cell count and lactate. CRP elevated at 10. Hemoglobin 8.9, her baseline appears to be between [address] results reviewed and note IMPRESSION: 1. Findings likely representing sequela of a chronic fracture-dislocation injury with superimposed osteomyelitis, septic arthritis, and cellulitis, described above. A probable full-thickness tear/rupture is seen within the extensor tendon at the level of the 3rd/middle PIP joint. At least partial thickness tearing and likely infectious tenosynovitis within the flexor digitorum superficialis and profundus tendons at the level of the PIP joint. 2. Diffuse mild tenosynovitis within the flexor tendons at the level of the wrist/carpal tunnel. Skin thickening is seen along the palmar aspect of the wrist at the level of the carpal tunnel, representing either additional areas of infection or may represent scarring from prior surgery. 3. Diffuse edema is seen throughout the subcutaneous tissues of the remaining hand, which may represent additional areas of cellulitis. Clinical exam findings and imaging results discussed with [facility] orthopedics Rosa Coulter who does not think there is an urgent indication for transfer. Discussed again concern for tenosynovitis and he does not see any urgent indication for transfer for surgery as most of these findings may be chronic in nature and recommends elevation and IV antibiotics and can follow-up with hand clinic as an outpatient. Case discussed with hospitalist who accepts patient for admission. Ortho court commissioner Dr. Ibarra notified. 1999 --- patient endorsed some itching after vancomycin and a dose of 50 mg Benadryl IV ordered. She denies any sensation of throat swelling or itching or difficulty breathing. Medical Records Medical records reviewed: Yes I reviewed the patient's medical records. Medical records narrative: 04/22/21 CT R upper extremity with IV contrast IMPRESSION: 1. No bony abnormality. 2. Subcutaneous edema or cellulitis around the hand. 3. No abscess seen. 4. There is fluid around the flexor tendons in the carpal tunnel and small amount of fluid in the extensor tendon sheaths consistent with tenosynovitis. Imaging Data Radiologic Study: Radiologist's impression: XR Right Hand Exam date and time: 07/23/2021 3:54 PM Age: 40 years old Clinical indication: Other: H/o R bka, R/O fracture/ osteomyelitis TECHNIQUE: Imaging protocol: XR Right hand. Views: 3 or more views. COMPARISON: CT UPPER EXTREMITY RT W 04/22/2021 9:47 AM FINDINGS: Bones/joints: Abnormality of the middle finger at the proximal interphalangeal joint with erosive change of the articular margins, concerning for osteomyelitis, probable volar subluxation of the middle phalanx relative to the proximal phalanx and severe soft tissue swelling. Assessment is limited by overlying structures. Soft tissues: See Bones/joints finding. IMPRESSION: Severe erosive change of bony margins of 3rd proximal interphalangeal joint, malalignment and severe soft tissue swelling, likely osteomyelitis, severe cellulitis and necrotizing soft tissue infection. XR Right Tibia and Fibula Exam date and time: 07/23/2021 3:52 PM Age: 40 years old Clinical indication: Other: H/o R bka, R/O fracture/ osteomyelitis of stump TECHNIQUE: Imaging protocol: XR Right tibia and fibula. Views: 2 views. COMPARISON: CR XR tib/fib RT 12/17/2018 10:38 AM FINDINGS: Bones/joints: Diffuse osteopenia. No acute fracture or malalignment. Post below the knee amputation. No definite aggressive bone destruction at stump to suggest osteomyelitis. Soft tissues: No subcutaneous gas.? Undulating contour of soft distal soft tissues is likely postsurgical however, this could obscure an ulcer. IMPRESSION: Post [id number] amputation.? No definite aggressive bone destruction at stump to suggest osteomyelitis. If persistent concern, advise MRI or tagged white blood cell nuclear medicine scan. CT Right Upper Extremity With Contrast, Hand Exam date and time: 07/23/2021 3:43 PM Age: 40 years old Clinical indication: Other: R 3rd finger cellulitis, R/O abscess TECHNIQUE: Imaging protocol: CT of the Right upper extremity with intravenous contrast was performed. Exam focused on the hand. Radiation optimization: All CT scans at this facility use at least one of these dose optimization techniques: automated exposure control; mA and/or kV adjustment per patient size (includes targeted exams where dose is matched to clinical indication); or iterative reconstruction. Contrast material: OMNIPAQUE 350; Contrast volume: 100 ml; Contrast route: INTRAVENOUS (IV);? COMPARISON: CT UPPER EXTREMITY RT W 04/22/2021 9:47 AM FINDINGS: Bones/joints: A probable fracture dislocation injury is seen within the 3rd/middle PIP joint, with dorsal dislocation of the proximal phalanx in relationship to the middle phalanx at the level of the PIP joint. Extensive erosive changes and multiple tiny osseous fragments are seen within the distal aspect of the proximal phalanx and proximal aspect of the middle phalanx surrounding the PIP joint. Periosteal thickening is seen throughout the shaft of the proximal phalanx. These findings likely represent a combination of posttraumatic change with superimposed osteomyelitis. Soft tissues: A large, deep, soft tissue ulcer is seen along the dorsal aspect of the PIP joint of the middle/3rd finger. This extends to the cortical surface of the distal aspect of the proximal phalanx. Extensive soft tissue swelling and irregular fluid surrounds the PIP joint of the 3rd finger, likely representing cellulitis. Peripherally enhancing moderate fluid is seen throughout the flexor digitorum superficialis and flexor digitorum profundus tendons of the 3rd (middle) ease finger. The tendons also have an irregular appearance, likely representing a combination of tenosynovitis, with at least partial thickness tearing. The extensor tendon of the middle/3rd finger is significantly irregular in appearance, at the level of the PIP joint, likely representing a full-thickness tear/rupture. Mild tenosynovitis is seen through out the flexor tendons of the level of the carpal tunnel. Skin thickening and skin edema is also seen along the palmar aspect of the wrist at the level of the carpal tunnel. Mild diffuse subcutaneous edema is seen throughout the remaining hand. IMPRESSION: 1. Findings likely representing sequela of a chronic fracture-dislocation injury with superimposed osteomyelitis, septic arthritis, and cellulitis, described above. A probable full-thickness tear/rupture is seen within the extensor tendon at the level of the 3rd/middle PIP joint. At least partial thickness tearing and likely infectious tenosynovitis within the flexor digitorum superficialis and profundus tendons at the level of the PIP joint. 2. Diffuse mild tenosynovitis within the flexor tendons at the level of the wrist/carpal tunnel. Skin thickening is seen along the palmar aspect of the wrist at the level of the carpal tunnel, representing either additional areas of infection or may represent scarring from prior surgery. 3. Diffuse edema is seen throughout the subcutaneous tissues of the remaining hand, which may represent additional areas of cellulitis. Lab Data Lab results reviewed: Yes I reviewed the patient's lab results. Labs: 07/23/21 18:50 Blood Blood Culture - Pending 07/23/21 17:55 Blood Blood Culture - Pending Laboratory Tests Range/Units 07/23/21 07/23/21 07/23/21 17:55 17:55 17:55 WBC (4.4-10.8) 10^3/uL 9.56 RBC (3.93-5.22) 10^6/uL 3.45 L Hgb (11.2-15.7) g/dL 8.9 L Hct (36.0-46.0) % 29.6 L MCV (80-95) fL 85.8 MCH (27.0-33.0) pg 25.8 L MCHC (32.0-36.0) % 30.1 L RDW (11.7-14.6) % 14.0 Plt Count (130-400) 10^3/uL 278 MPV (8.0-11.0) fL 10.2 Immature Gran % 0.7 Neutrophils % 86.6 Lymphocytes % 6.9 Monocytes % 4.6 Eosinophils % 1.0 Basophils % 0.2 Nucleated RBC % % 0 Absolute Neutrophils (1.2-6.7) 10^3/uL 8.27 H Absolute Lymphocytes (1.2-3.4) 10^3/uL 0.66 L Absolute Monocytes (0.1-0.8) 10^3/uL 0.44 Absolute Eosinophils (0.0-0.7) 10^3/uL 0.10 Absolute Basophils (0.0-0.2) 10^3/uL 0.02 VBG Lactate (0.6-1.4) mmol/L 0.7 Sodium (136-145) mmol/L 136 Potassium (3.5-5.1) mmol/L 4.2 Chloride (98-107) mmol/L 103 Carbon Dioxide (21.0-32.0) mmol/L 27.7 Anion Gap (3-11) mmol/L 5.3 BUN (7-18) mg/dL 20 H Creatinine (0.55-1.02) mg/dL 0.7 Estimated GFR/1.73 m2 (mL/min/1.73m2) >= 60.00 Glucose (74-106) mg/dL 121 H Calcium (8.5-10.1) mg/dL 8.4 L Total Bilirubin (0.2-1.0) mg/dL 0.2 AST (15-37) U/L 13 L ALT (14-59) U/L 19 Alkaline Phosphatase (46-116) U/L 90 C-Reactive Protein (0.0-0.3) mg/dL 10.23 H Total Protein (6.4-8.2) g/dL 7.8 Albumin (3.4-5.0) g/dL 2.8 L HPI General Mode of arrival: ambulatory. Date/Time Provider Initiated Documentation: 07/23/21 14:42. Limitations to Documentation: no limitations. Information obtained by: patient. HPI Narrative: Patient is a 40-year-old female with a history of former IV drug abuse, hepatitis C, right BKA secondary to osteomyelitis who presents with concern for right hand and leg infection status post recent fall. Patient states she tripped and fell while using her crutches for her right BKA while walking in a [employer] lot and fell onto her right leg stump and right hand. She states she had an initial abrasion to her right third finger and right leg stump but states for the past week the right hand has become significantly more painful, red and swollen. He states she also noted an ulcer to her right second fingertip over the past week but states she is unsure how this happened. She states she had right hand cellulitis in March 2021 and eventually had carpal tunnel surgery at that time and states she has had right hand swelling since then which she states is slightly worse since her fall 2 weeks ago. She denies any known fever, chest pain, shortness of breath. She states she has been using a silver ointment to her right third finger but otherwise has not started any medication for this. Related Data Home Medications Medication Instructions Recorded Confirmed buprenorphine 2 mg-naloxone 0.5 mg See Rx Instructions BC DAILY 04/07/20 07/23/21 sublingual film multivitamin (Daily Multi-Vitamin) 1 tab PO DAILY 07/05/20 07/23/21 norethindrone (contraceptive) 0.35 0.35 mg PO DAILY #84 tab 07/05/20 07/23/21 mg tablet cyclobenzaprine 10 mg tablet 10 mg PO HS PRN #30 tab 01/27/21 07/23/21 ibuprofen 800 mg tablet 800 mg PO TID PRN #90 tab 02/10/21 07/23/21 gabapentin 300 mg capsule 300 mg PO BID #60 cap 03/30/21 04/22/21 ferrous fumarate 324 mg (106 mg 324 mg PO BID 05/09/21 07/23/21 iron) tablet Previous Rx's Medication Instructions Recorded norethindrone (contraceptive) 0.35 0.35 mg PO DAILY #84 tab 07/05/20 mg tablet cyclobenzaprine 10 mg tablet 10 mg PO HS PRN #30 tab 01/27/21 ibuprofen 800 mg tablet 800 mg PO TID PRN #90 tab 02/10/21 gabapentin 300 mg capsule 300 mg PO BID #60 cap 03/30/21 Allergies Allergy/AdvReac Type Severity Reaction Status Date / Time No Known Allergies Allergy Verified 07/23/21 20:13 General Stated Complaint: Cellulitis LEIF: 3 Review of Systems All systems reviewed & are unremarkable except as noted in HPI and below Constitutional Constitutional: Denies chills, Denies excessive sweating, Denies fatigue, Denies fever(s), Denies weakness and Denies weight loss Eyes Eyes: Reports system reviewed and no additional complaints, except as documented and Denies blurry vision ENT Ears, Nose, Mouth, and Throat: Denies vertigo, Denies dizziness, Denies otalgia, Denies nasal congestion, Denies sore throat and Denies throat swelling Cardiovascular Cardiovascular: Denies chest pain, Denies syncope, Denies rapid heart rate and Denies dyspnea Respiratory Respiratory: Denies chest congestion, Denies cough, Denies pain on inspiration and Denies dyspnea Gastrointestinal Gastrointestinal: Denies abdominal pain, Denies diarrhea and Denies vomiting Genitourinary Genitourinary: Denies hematuria, Denies dysuria and Denies flank pain Musculoskeletal Musculoskeletal: Denies back pain and Denies joint swelling Integumentary/Breasts Skin/Breast: Reports lesions and Denies rash Neurologic Neurologic: Denies behavioral changes, Denies confusion, Denies vertigo, Denies dizziness, Denies syncope, Denies localized weakness and Denies weakness Psychiatric Psychiatric: Denies behavioral changes, Denies confusion and Denies depression Endocrine Endocrine: Denies excessive sweating and Denies fatigue Hematologic/Lymphatic Hematologic/Lymphatic: Denies easy bruising and Denies lymphadenopathy Allergic/Immunologic Allergic/Immunologic: Denies throat swelling PFSH All Active Problems (Updated 07/24/21 @ 09:58 by Marsha Diaz NP) DVT prophylaxis (Acute) Open wound of finger of right hand (Acute) Tenosynovitis of finger (Acute) Osteomyelitis of finger of right hand (Acute) Cellulitis of finger of right hand (Acute) Leg wound, right (Acute) Cellulitis of toe of left foot (Acute) Abnormal finding on imaging (Acute) Abnormal MRI (Acute) Dysuria (Acute) 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 Patient has appointment at [facility] in [place] for consideration of termination History of intravenous drug abuse (Acute) Cellulitis of left lower extremity (Acute) Poor intravenous access (Acute) Chronic infection as complication of amputation (Acute) Heart murmur (Acute) Hypotension (Chronic) Petechial rash (Acute) Acute on chronic anemia (Acute) Osteomyelitis of right lower extremity (Chronic) DVT, lower extremity, distal, acute (Acute) 10/24 2018 left lower extremity. Rx with Eliquis. Abnormal uterine bleeding (AUB) (Acute) On. Set 10/24/2018 heavy flow coinciding with initiation of Eliquis Normocytic hypochromic anemia (Acute) 10/26/2018 hemoglobin 8.2 MCV 83 Medical History Endometriosis Hx of hepatitis C AB +. No viral load. Hx of opioid abuse Currently in treatment at [facility]. Suboxone. Raynaud disease Surgical History Complete below knee amputation of right lower extremity 2018. 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 [facility]. 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 H/O hand surgery contracted post-op History of transesophageal echocardiography (YG) negative Retained foreign body L groin, s/p unsuccessful exploratory surgery Family History Father Diabetes Paternal Grandfather Diabetes Paternal Aunt Diabetes Maternal Grandmother Breast cancer Maternal Aunt Multiple sclerosis Social History Smoking/Tobacco Use Status: Never Smoking risk assessment performed?: Yes Alcohol Intake: former Drug use: Current Sobriety Substance use type: former substance user, crack/cocaine, heroin and methamphetamine Details: former cocaine (snorted, smoked, IV) and heroin use (IV), as well as crystal meth (IV). Patient is currently enrolled at [facility], on suboxone Household members: children and other Details: Patient resides at her sister's house with her daughter Housing: apartment Number of Children: 1 current occupation: Unemployed Sexually active: Yes Do you think of yourself as: straight/heterosexual Current gender identity: female Seatbelt use: always Do you feel safe at home: Yes Do you feel safe in your relationship?: Yes Additional Social history: Ambulates with crutches - 2 falls recently Exam Const General: cooperative and ill appearing chronically Orientation: alert, awake and oriented x3 HENMT Head: normal to inspection Ears: hearing grossly normal bilaterally, external ears normal and TM's normal bilaterally General nose exam: external nose normal Face and sinus: normal facial exam Mouth: oral mucosae normal Teeth and gingiva: dentition normal Throat: posterior oropharynx normal Eyes General: appearance normal, both eyes and all related structures Eyelids: eyelids normal Pupils: PERRL EOM: EOM intact bilaterally Neck Neck: normal visual inspection Lymphatic: no lymphadenopathy noted Chest Chest: normal inspection of the chest Resp Effort & Inspection: normal respiratory effort and able to speak in complete sentences Auscultation: clear to auscultation bilaterally Cardio Rate: regular rate Rhythm: regular rhythm GI Inspection: normal to inspection Palpation: soft, not firm, no guarding, no hepatosplenomegaly, no masses and nontender Auscultation: hypoactive bowel sounds Back/Spine/Pelvis Back: no CVA tenderness Skin General skin exam: no rashes or lesions noted Neuro General: patient alert and patient awake Cognition: normal cognition Speech: speech normal Gait: normal gait Motor: muscle tone normal throughout Sensory Exam: no sensory deficits noted Extrem Hand/finger images: 1. 2 x 3 cm irregularly shaped open wound with fibrous tissue in center. There is significant surrounding erythema and edema of the entire third finger. 2. 1 x 1 cm open wound with overlying crust on right lateral distal fingertip. There is moderate edema and erythema of the entire finger. 3. There is moderate edema of the hand 4. 3 x 2 cm crust with 2 x 2 millimeter area of erythema just proximal to the superior aspect of the wound. Knee images: 1. 2 x 1.5 cm crust noted to be inferior aspect of the right leg stump. There is surrounding tenderness but no significant erythema, edema, drainage or bleeding. Other: There is pain with passive extension of the right third finger. There is no significant tenderness along the flexor surface of the right third finger. Psych Appearance: grossly normal Mental Status: mental status grossly normal Speech and Movement: speech and movement normal Affect: normal affect Thought Process: normal Course Vital Signs Vital signs: Vital Signs Pulse 79 07/23/21 14:35 Blood Pressure 135/81 07/23/21 14:35 Pulse Oximetry 96 07/23/21 14:35 Pulse 79 07/23/21 14:35 Blood Pressure 135/81 07/23/21 14:35 Blood Pressure Position Sitting 07/23/21 14:35 Pulse Oximetry 96 07/23/21 14:35 Oxygen Delivery Method Room Air 07/23/21 14:35 Oxygen Flow Rate 0 07/23/21 14:35
[2021-07-23 15:00] VITALS: BP 133/95; PULSE 94; RESP 12; TEMP 36.3; O2SAT 95
[2021-07-23 15:01] VITALS: BP 118/75; PULSE 88
--- NOTE | 2021-07-23 15:11 | DI.RAD_ITS ---
Exam(s) XR TIB/FIB RT EXAM: XR TIB/FIB RT CLINICAL HISTORY: h/o R BKA, r/o fracture/osteomyelitis to stump. TECHNIQUE: 2D digital imaging was performed. Two views. COMPARISON: CR XR tib/fib RT from 12/17/2018 FINDINGS: Status post BKA. Surgical clips adjacent to tibial stump. No evidence of fracture. No definite ramez dence of osteomyelitis. Bones appear osteopenic. IMPRESSION: Status post BKA. No definite evidence of osteomyelitis. DATA REPOSITORY: RADIATION DOSE DELIVERED:
--- NOTE | 2021-07-23 15:11 | DI.RAD_ITS ---
Exam(s) XR HAND RT COMPLETE EXAM: XR HAND RT COMPLETE CLINICAL HISTORY: fall onto R hand, r/o fracture/foreign body. TECHNIQUE: 2D digital imaging was performed. Three views. COMPARISON: No exams were available for comparison FINDINGS: Soft tissue swelling the dorsum of the hand as well as marked soft tissue swelling around the 3rd fin nolberto. No radiopaque foreign body or discrete gas collection. The fingers are flexed and not well pro filed. There is overlap of the fingers on the lateral view. There is bony destruction with periosteal reaction involving the distal aspect of the proximal phalan x. They there may also be destructive changes at the base of the middle phalanx. Periosteal reactio n is seen extending all along the shaft. There is apparent volar dislocation at the proximal interph alangeal joint. No definite fracture is but cannot be excluded. IMPRESSION: Marked soft tissue swelling with bony destruction around the 3rd proximal interphalangeal joint, susp icious for osteomyelitis. There is also apparent volar dislocation or subluxation. DATA REPOSITORY: RADIATION DOSE DELIVERED:
--- NOTE | 2021-07-23 15:15 | DI.CT_ITS ---
Exam(s) CT UPPER EXTREMITY RT W EXAM: CT UPPER EXTREMITY RT W CLINICAL HISTORY: R 3rd finger cellulitis, r/o abscess TECHNIQUE: Imaging Protocol: Axial computed tomography images with coronal and sagittal reformatted images were created and reviewed. CONTRAST MATERIAL: 100 cc Omnipaque 350. COMPARISON: CT CT UPPER EXTREMITY RT W from 04/22/2021 CR,XR XR HAND RT COMPLETE from 07/23/2021 FINDINGS: There is ventral dislocation at the proximal interphalangeal joint of the middle finger. There is aminata ny destruction at the base of the middle phalanx as well as head of the proximal phalanx with surroun ding tiny bony densities. The findings are suspicious for osteomyelitis. There is severe surroundin g soft tissue swelling consistent with cellulitis. There is no drainable collection. There is a sof t tissue ulcer dorsal to the head of the proximal phalanx. The flexor digitorum tendons show surroun ding fluid as well as marked thickening of the tendons and surrounding fluid. Skin thickening and ed kenny is seen at the level of the carpal tunnel. IMPRESSION: Ventral dislocation at the PIP joint of the middle finger. Osteomyelitis and surrounding cellulitis at the PIP joint. Severe infectious tenosynovitis of the flexor digitorum tendons of the middle fing er. Carpal tunnel tenosynovitis. Adjacent skin thickening question additional area of infection versus s carring. RADIATION DOSE DELIVERED: 266.63mGy.cm Total DLP DATA REPOSITORY: All CT scans at this facility are submitted to the National Radiology Data Registry (NRDR) Dose Index Registry (DIR) with the [employer] (A[employer]). RADIATION OPTIMIZATION: All CT scans at this facility use at least one of these dose optimization te chniques: automated exposure control; mA and/or kV adjustment per patient size (includes targeted exa ms where dose is matched to clinical indication); or iterative reconstruction.
--- NOTE | 2021-07-23 17:47 | DI.VRAD_ITS ---
PROCEDURE INFORMATION: Exam: XR Right Tibia and Fibula Exam date and time: 07/23/2021 3:52 PM Age: 40 years old Clinical indication: Other: H/o R bka, R/O fracture/ osteomyelitis of stump TECHNIQUE: Imaging protocol: XR Right tibia and fibula. Views: 2 views. COMPARISON: CR XR tib/fib RT 12/17/2018 10:38 AM FINDINGS: Bones/joints: Diffuse osteopenia. No acute fracture or malalignment. Post below the knee amputation. No definite aggressive bone destruction at stump to suggest osteomyelitis. Soft tissues: No subcutaneous gas. Undulating contour of soft distal soft tissues is likely postsurgical however, this could obscure an ulcer. IMPRESSION: Post [id number] amputation. No definite aggressive bone destruction at stump to suggest osteomyelitis. If persistent concern, advise MRI or tagged white blood cell nuclear medicine scan. Dictated and Authenticated by: Haley Lala MD. Ordering:ARCHANA Sharma MD
--- NOTE | 2021-07-23 17:51 | DI.VRAD_ITS ---
Addendum created by Haley Lala DO on 07/23/2021 5:54:57 PM EDT: Correction of typographical error, 07/23/2021 at 5:54 p.m.: SEVERE EROSIVE CHANGE of bony margins of 3rd proximal interphalangeal joint, malalignment and severe soft tissue swelling, likely osteomyelitis, severe cellulitis and necrotizing soft tissue infection. THIS REPORT CONTAINS FINDINGS THAT MAY BE CRITICAL TO PATIENT CARE. The findings were verbally communicated via telephone conference at 5:54 PM EDT on 07/23/2021 with colleen el. The findings were acknowledged and understood. Initial report created on 07/23/2021 5:51:04 PM EDT: PROCEDURE INFORMATION: Exam: XR Right Hand Exam date and time: 07/23/2021 3:54 PM Age: 40 years old Clinical indication: Other: H/o R bka, R/O fracture/ osteomyelitis TECHNIQUE: Imaging protocol: XR Right hand. Views: 3 or more views. COMPARISON: CT UPPER EXTREMITY RT W 04/22/2021 9:47 AM FINDINGS: Bones/joints: Abnormality of the middle finger at the proximal interphalangeal joint with erosive change of the articular margins, concerning for osteomyelitis, probable volar subluxation of the middle phalanx relative to the proximal phalanx and severe soft tissue swelling. Assessment is limited by overlying structures. Soft tissues: See Bones/joints finding. IMPRESSION: Severe Rocephin change of bony margins of 3rd proximal interphalangeal joint, malalignment and severe soft tissue swelling, likely osteomyelitis, severe cellulitis and necrotizing soft tissue infection. Dictated and Authenticated by: Haley Lala MD. Ordering:ARCHANA Sharma MD
[2021-07-23 18:05] LABS: Lactate 0.7 mmol/L (0.6-1.4)
[2021-07-23 18:10] LABS: Abs Immature Grans 0.07 10^3/uL (0.0-0.06); Absolute Basophil Count 0.02 10^3/uL (0.0-0.2); Absolute Lymphocyte Count 0.66 10^3/uL (1.2-3.4); Absolute Monocyte Count 0.44 10^3/uL (0.1-0.8); Absolute Neutrophil Count 8.27 10^3/uL (1.2-6.7); Basophils % 0.2; HCT 29.6 % (36.0-46.0); HGB 8.9 g/dL (11.2-15.7); Immature Grans % 0.7; Lymphocytes % 6.9; MCH 25.8 pg (27.0-33.0); MCHC 30.1 % (32.0-36.0); MCV 85.8 fL (80-95); MPV 10.2 fL (8.0-11.0); Monocytes % 4.6; Neutrophils % 86.6; Nucleated RBC 0 %; Platelet Count 278 10^3/uL (130-400); RBC 3.45 10^6/uL (3.93-5.22); RDW-SD 44.2 fL; WBC 9.56 10^3/uL (4.4-10.8)
[2021-07-23 18:23] LABS: ALT 19 U/L (14-59); AST 13 U/L (15-37); Albumin 2.8 g/dL (3.4-5.0); Alkaline Phosphatase 90 U/L (46-116); Anion Gap 5.3 mmol/L (3-11); BUN 20 mg/dL (7-18); Bilirubin, Total 0.2 mg/dL (0.2-1.0); C-Reactive Protein 10.23 mg/dL (0.0-0.3); CO2 27.7 mmol/L (21.0-32.0); CREATININE 0.7 mg/dL (0.55-1.02); Calcium 8.4 mg/dL (8.5-10.1); Chloride 103 mmol/L (98-107); Glucose 121 mg/dL (74-106); Potassium 4.2 mmol/L (3.5-5.1); Sodium 136 mmol/L (136-145); Total Protein 7.8 g/dL (6.4-8.2)
[2021-07-23] MEDS: Omnipaque 350 MG/ML 100 ML BTL IJ (18:31)
[2021-07-23] MEDS: CEFEPIME 2 GM in Normal Saline 100 ML IVPB (18:44)
[2021-07-23] MEDS: Normal Saline 1,000 ML 1000 ML IV (19:10)
[2021-07-23] MEDS: VANCOMYCIN 1,500 MG in Normal Saline 250 ML 166.6666 MG IVPB (19:10)
--- NOTE | 2021-07-23 19:11 | DI.VRAD_ITS ---
PROCEDURE INFORMATION: Exam: CT Right Upper Extremity With Contrast, Hand Exam date and time: 07/23/2021 3:43 PM Age: 40 years old Clinical indication: Other: R 3rd finger cellulitis, R/O abscess TECHNIQUE: Imaging protocol: CT of the Right upper extremity with intravenous contrast was performed. Exam focused on the hand. Radiation optimization: All CT scans at this facility use at least one of these dose optimization techniques: automated exposure control; mA and/or kV adjustment per patient size (includes targeted exams where dose is matched to clinical indication); or iterative reconstruction. Contrast material: OMNIPAQUE 350; Contrast volume: 100 ml; Contrast route: INTRAVENOUS (IV); COMPARISON: CT UPPER EXTREMITY RT W 04/22/2021 9:47 AM FINDINGS: Bones/joints: A probable fracture dislocation injury is seen within the 3rd/middle PIP joint, with dorsal dislocation of the proximal phalanx in relationship to the middle phalanx at the level of the PIP joint. Extensive erosive changes and multiple tiny osseous fragments are seen within the distal aspect of the proximal phalanx and proximal aspect of the middle phalanx surrounding the PIP joint. Periosteal thickening is seen throughout the shaft of the proximal phalanx. These findings likely represent a combination of posttraumatic change with superimposed osteomyelitis. Soft tissues: A large, deep, soft tissue ulcer is seen along the dorsal aspect of the PIP joint of the middle/3rd finger. This extends to the cortical surface of the distal aspect of the proximal phalanx. Extensive soft tissue swelling and irregular fluid surrounds the PIP joint of the 3rd finger, likely representing cellulitis. Peripherally enhancing moderate fluid is seen throughout the flexor digitorum superficialis and flexor digitorum profundus tendons of the 3rd (middle) ease finger. The tendons also have an irregular appearance, likely representing a combination of tenosynovitis, with at least partial thickness tearing. The extensor tendon of the middle/3rd finger is significantly irregular in appearance, at the level of the PIP joint, likely representing a full-thickness tear/rupture. Mild tenosynovitis is seen through out the flexor tendons of the level of the carpal tunnel. Skin thickening and skin edema is also seen along the palmar aspect of the wrist at the level of the carpal tunnel. Mild diffuse subcutaneous edema is seen throughout the remaining hand. IMPRESSION: 1. Findings likely representing sequela of a chronic fracture-dislocation injury with superimposed osteomyelitis, septic arthritis, and cellulitis, described above. A probable full-thickness tear/rupture is seen within the extensor tendon at the level of the 3rd/middle PIP joint. At least partial thickness tearing and likely infectious tenosynovitis within the flexor digitorum superficialis and profundus tendons at the level of the PIP joint. 2. Diffuse mild tenosynovitis within the flexor tendons at the level of the wrist/carpal tunnel. Skin thickening is seen along the palmar aspect of the wrist at the level of the carpal tunnel, representing either additional areas of infection or may represent scarring from prior surgery. 3. Diffuse edema is seen throughout the subcutaneous tissues of the remaining hand, which may represent additional areas of cellulitis. Dictated and Authenticated by: Joanne Cherry MD. Ordering:ARCHANA Sharma MD
[2021-07-23 19:28] VITALS: BP 135/94; PULSE 94; TEMP 36.8; O2SAT 99
--- NOTE | 2021-07-23 19:36 | HPE_ITS ---
Date of service: 07/23/21 Time of Service: 19:37 Assessment and Plan Assessment and plan (1) Osteomyelitis of finger of right hand: Start date: 07/23/21 Status: Acute Assessment and plan: This is a 40-year-old lady who has a history of recurrent infections with poor circulation status post long history of IV drug use chronically on Suboxone and status post right BKA having with fall injuring her right BKA stump and right hand including mostly the third finger at the tip of the second finger. Now she presents with osteomyelitis of the right third finger and cellulitis of the hand and fingers. There may also be early cellulitis in the right BKA stump incision which should be covered by the same antibiotics. She was initiated on vancomycin and cefepime and will be evaluated by orthopedic surgery eventually if indicated. She may need prolonged IV antibiotic therapy for osteomyelitis if trying to avoid amputation. Wound care as. Prognosis is poor for this outcome. (2) Cellulitis of finger of right hand: Start date: 07/23/21 Status: Acute Assessment and plan: Increase CRP but no fever or elevation of WBC with osteomyelitis right third finger and cellulitis right hand by imaging. Neck mass and cefepime as per treatment of osteomyelitis should cover this infection (3) Finger, open wounds, complicated: Start date: 07/23/21 Status: Acute Assessment and plan: Wound care consultation if needed. (4) Leg wound, right: Start date: 07/23/21 Status: Acute Assessment and plan: Abrasion right BKA stump over healed scar with early cellulitis. This should be covered by vancomycin and cefepime may not require wound care. Avoid reinjury. Patient does walk with crutches. History of Present Illness History of Present Illness Chief Complaint: Right third finger swelling Narrative: This is a 40-year-old female patient who has a long history of IV drug use in the past with none recently and osteomyelitis having had amputation below the right knee in the 3 years ago for complications of infection now presenting with right third finger swelling and osteomyelitis by imaging. She fell about 2 weeks ago injuring her right BKA stump with abrasion which now has some slight erythema and injuring her right third finger which was scraped over the dorsum of the PIP. Over the last 2 to 3 days the right third finger had increased swelling and redness along with a blood blister over the tip of her second finger bursting and now with dry ulceration over the blister base. She states that she does have poor circulation. She denies any fever or chills and has localized pain. She is on Suboxone chronically. She presents to the ED for evaluation and did not have any elevation of her WBC but significant tachycardia with x-ray findings of osteomyelitis. She was admitted for IV antibiotic therapy and eventual orthopedic consultation. Review of Systems Narrative: 13 point review of systems otherwise unrevealing or stable. 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 Patient has appointment at [facility] in [place] for consideration of termination History of intravenous drug abuse (Acute) Cellulitis of left lower extremity (Acute) Poor intravenous access (Acute) Chronic infection as complication of amputation (Acute) Heart murmur (Acute) Hypotension (Chronic) Petechial rash (Acute) Acute on chronic anemia (Acute) Osteomyelitis of right lower extremity (Chronic) DVT, lower extremity, distal, acute (Acute) 10/24 2018 left lower extremity. Rx with Eliquis. Abnormal uterine bleeding (AUB) (Acute) On. Set 10/24/2018 heavy flow coinciding with initiation of Eliquis Normocytic hypochromic anemia (Acute) 10/26/2018 hemoglobin 8.2 MCV 83 Medical History Endometriosis Hx of hepatitis C AB +. No viral load. Hx of opioid abuse Currently in treatment at [facility]. Suboxone. Raynaud disease Surgical History Complete below knee amputation of right lower extremity 2018. 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 [facility]. 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 H/O hand surgery contracted post-op History of transesophageal echocardiography (YG) negative Retained foreign body L groin, s/p unsuccessful exploratory surgery Family History Father Diabetes Paternal Grandfather Diabetes Paternal Aunt Diabetes Maternal Grandmother Breast cancer Maternal Aunt Multiple sclerosis Social History Smoking/Tobacco Use Status: Never Smoking risk assessment performed?: Yes Alcohol Intake: former Drug use: Current Sobriety Substance use type: former substance user, crack/cocaine, heroin and methamphetamine Details: former cocaine (snorted, smoked, IV) and heroin use (IV), as well as crystal meth (IV). Patient is currently enrolled at [facility], on suboxone Household members: children and other Details: Patient resides at her sister's house with her daughter Housing: apartment Number of Children: 1 current occupation: Unemployed Sexually active: Yes Do you think of yourself as: straight/heterosexual Current gender identity: female Seatbelt use: always Do you feel safe at home: Yes Do you feel safe in your relationship?: Yes Additional Social history: Ambulates with crutches - 2 falls recently Meds Allergies and Home Medications Allergies Allergy/AdvReac Type Severity Reaction Status Date / Time No Known Allergies Allergy Verified 07/23/21 20:13 Home Medications Medication Instructions Recorded Confirmed Type buprenorphine 2 mg-naloxone 0.5 mg See Rx Instructions BC DAILY 04/07/20 07/23/21 History sublingual film multivitamin (Daily Multi-Vitamin) 1 tab PO DAILY 07/05/20 07/23/21 History norethindrone (contraceptive) 0.35 0.35 mg PO DAILY #84 tab 07/05/20 07/23/21 Rx mg tablet cyclobenzaprine 10 mg tablet 10 mg PO HS PRN #30 tab 01/27/21 07/23/21 Rx ibuprofen 800 mg tablet 800 mg PO TID PRN #90 tab 02/10/21 07/23/21 Rx gabapentin 300 mg capsule 300 mg PO BID #60 cap 03/30/21 04/22/21 Rx ferrous fumarate 324 mg (106 mg 324 mg PO BID 05/09/21 07/23/21 History iron) tablet Exam Narrative Exam Narrative: General: Patient appears appropriate for age, thin and fidgety moving around in bed during our conversation. She is alert and oriented x3. Slightly pressured speech. Flattened affect but normal mood. HEENT: Normocephalic, eyes with pupils equal and react to light symmetrically, extraocular movement intact and sclera anicteric. Oropharynx with dry mucosa. Neck: Supple without JVD. Back: Stooped posture without CVA tenderness. Lungs: Fair aeration and clear to auscultation percussion. No adventitious sounds. Heart: Regular rate and rhythm with no murmurs or gallops appreciated. Breast: Exam deferred. Abdomen: Scaphoid contour, soft nontender to palpation with no focalizing guarding. No palpable hepatosplenomegaly. Genitalia/rectal: Exam deferred. Extremities: Right BKA with abrasion over stump scar and erythema but no fluctuance or drainage. Right hand with markedly swollen and fixed flexed third finger with large abrasion over the dorsal PIP without active drainage slight fluctuance. Dry atrophic ulceration of the tip of the second right finger. Left hand normal. Radial pulse on the right is decreased with fair capillary refill over the hand. No cyanosis or clubbing. No edema other than right third finger. Skin: Abrasion over right BKA stump and right hand and fingers as described othe rwise normal color, warm and dry. Neuro: Cranial nerves II through XII grossly intact. No focalizing motor deficit. Psych: Slightly anxious with pressured speech and fidgety but mood appears normal. Patient become slightly defensive when discussing IV drug use. No abnormal thought processes. Remote and recent memory intact. Results Imaging Imaging Studies: Exam: CT Right Upper Extremity With Contrast, Hand Exam date and time: 07/23/2021 3:43 PM Age: 40 years old Clinical indication: Other: R 3rd finger cellulitis, R/O abscess TECHNIQUE: Imaging protocol: CT of the Right upper extremity with intravenous contrast was performed. Exam focused on the hand. Radiation optimization: All CT scans at this facility use at least one of these dose optimization techniques: automated exposure control; mA and/or kV adjustment per patient size (includes targeted exams where dose is matched to clinical indication); or iterative reconstruction. Contrast material: OMNIPAQUE 350; Contrast volume: 100 ml; Contrast route: INTRAVENOUS (IV);? COMPARISON: CT UPPER EXTREMITY RT W 04/22/2021 9:47 AM FINDINGS: Bones/joints: A probable fracture dislocation injury is seen within the 3rd/middle PIP joint, with dorsal dislocation of the proximal phalanx in relationship to the middle phalanx at the level of the PIP joint. Extensive erosive changes and multiple tiny osseous fragments are seen within the distal aspect of the proximal phalanx and proximal aspect of the middle phalanx surrounding the PIP joint. Periosteal thickening is seen throughout the shaft of the proximal phalanx. These findings likely represent a combination of posttraumatic change with superimposed osteomyelitis. Soft tissues: A large, deep, soft tissue ulcer is seen along the dorsal aspect of the PIP joint of the middle/3rd finger. This extends to the cortical surface of the distal aspect of the proximal phalanx. Extensive soft tissue swelling and irregular fluid surrounds the PIP joint of the 3rd finger, likely representing cellulitis. Peripherally enhancing moderate fluid is seen throughout the flexor digitorum superficialis and flexor digitorum profundus tendons of the 3rd (middle) ease finger. The tendons also have an irregular appearance, likely representing a combination of tenosynovitis, with at least partial thickness tearing. The extensor tendon of the middle/3rd finger is significantly irregular in appearance, at the level of the PIP joint, likely representing a full-thickness tear/rupture. Mild tenosynovitis is seen through out the flexor tendons of the level of the carpal tunnel. Skin thickening and skin edema is also seen along the palmar aspect of the wrist at the level of the carpal tunnel. Mild diffuse subcutaneous edema is seen throughout the remaining hand. IMPRESSION: 1. Findings likely representing sequela of a chronic fracture-dislocation injury with superimposed osteomyelitis, septic arthritis, and cellulitis, described above. A probable full-thickness tear/rupture is seen within the extensor tendon at the level of the 3rd/middle PIP joint. At least partial thickness tearing and likely infectious tenosynovitis within the flexor digitorum superficialis and profundus tendons at the level of the PIP joint. 2. Diffuse mild tenosynovitis within the flexor tendons at the level of the wrist/carpal tunnel. Skin thickening is seen along the palmar aspect of the wrist at the level of the carpal tunnel, representing either additional areas of infection or may represent scarring from prior surgery. 3. Diffuse edema is seen throughout the subcutaneous tissues of the remaining hand, which may represent additional areas of cellulitis. Exam: XR Right Tibia and Fibula Exam date and time: 07/23/2021 3:52 PM Age: 40 years old Clinical indication: Other: H/o R bka, R/O fracture/ osteomyelitis of stump TECHNIQUE: Imaging protocol: XR Right tibia and fibula. Views: 2 views. COMPARISON: CR XR tib/fib RT 12/17/2018 10:38 AM FINDINGS: Bones/joints: Diffuse osteopenia. No acute fracture or malalignment. Post below the knee amputation. No definite aggressive bone destruction at stump to suggest osteomyelitis. Soft tissues: No subcutaneous gas.? Undulating contour of soft distal soft tissues is likely postsurgical however, this could obscure an ulcer. IMPRESSION: Post [id number]-[id number]-[id number] amputation.? No definite aggressive bone destruction at stump to suggest osteomyelitis. If persistent concern, advise MRI or tagged white blood cell nuclear medicine scan. Labs Result diagrams: 07/23/21 17:55 07/23/21 17:55 Labs: Laboratory Results - last 24 hr 07/23/21 07/23/21 07/23/21 17:55 17:55 17:55 WBC 9.56 RBC 3.45 L Hgb 8.9 L Hct 29.6 L MCV 85.8 MCH 25.8 L MCHC 30.1 L RDW 14.0 Plt Count 278 MPV 10.2 Immature Gran % 0.7 Neutrophils % 86.6 Lymphocytes % 6.9 Monocytes % 4.6 Eosinophils % 1.0 Basophils % 0.2 Nucleated RBC % 0 Absolute Neutrophils 8.27 H Absolute Lymphocytes 0.66 L Absolute Monocytes 0.44 Absolute Eosinophils 0.10 Absolute Basophils 0.02 VBG Lactate 0.7 Sodium 136 Potassium 4.2 Chloride 103 Carbon Dioxide 27.7 Anion Gap 5.3 BUN 20 H Creatinine 0.7 Estimated GFR/1.73 m2 >= 60.00 Glucose 121 H Calcium 8.4 L Total Bilirubin 0.2 AST 13 L ALT 19 Alkaline Phosphatase 90 C-Reactive Protein 10.23 H Total Protein 7.8 Albumin 2.8 L Last Vital Signs Temp 36.8 C 07/23/21 19:28 Pulse 94 H 07/23/21 19:28 Resp 12 07/23/21 15:00 BP 135/94 H 07/23/21 19:28 Pulse Ox 99 07/23/21 19:28 PAWSS Have you Been Recently Intoxicated or Drunk Within the Last 30 days?: No Have you Ever Experienced Previous Episodes of Alcohol Withdrawal?: No Have you ever Experienced Withdrawal Seizures?: No Have you ever Experienced Delirium Tremens(DT)s?: No Have you ever undergone Alcohol Rehabilitation Treatment (i.e, inpt ot outpatient treatment programs)?: No Have you ever Experienced Blackouts?: No Have you ever Combined Alcohol with other Downers within the last 90 days?: No Have you ever Combined Alcohol with any other Substance of Abuse during the last 90 days?: No Positive Blood Alcohol level on Presentation? [PCS.BAL]: No Evidence of Increased Autonomic Activity (i.e. HR>120, tremor, sweating, agitation, nausea)?: No Result: 0
[2021-07-23 20:13] LABS: Source Nasal/Nares
[2021-07-23] MEDS: diphenhydrAMINE 50 MG/ML VIAL IVP (20:28)
[2021-07-23 20:51] LABS: COVID-19 PCR Negative (Negative)
[2021-07-23 21:17] VITALS: BP 125/84; PULSE 86; RESP 18; TEMP 37.4; O2SAT 98
[2021-07-23] MEDS: Gabapentin 300 MG CAP PO (22:01)
[2021-07-23] MEDS: Enoxaparin 40 MG/0.4 ML SYR SC (22:01)
[2021-07-24 04:18] VITALS: BP 101/64; PULSE 76; RESP 18; TEMP 36.7; O2SAT 99
[2021-07-24] MEDS: Normal Saline Flush 10 ML SYR IVP ×3 (05:26→15:39)
[2021-07-24] MEDS: CEFEPIME 2 GM in Normal Saline 100 ML IVPB ×2 (05:27→17:33)
[2021-07-24 07:30] VITALS: BP 110/68; PULSE 77; RESP 18; TEMP 36.8; O2SAT 98
[2021-07-24 08:00] LABS: Abs Immature Grans 0.04 10^3/uL (0.0-0.06); Absolute Basophil Count 0.01 10^3/uL (0.0-0.2); Absolute Eosinophil Count 0.11 10^3/uL (0.0-0.7); Absolute Lymphocyte Count 0.91 10^3/uL (1.2-3.4); Absolute Monocyte Count 0.45 10^3/uL (0.1-0.8); Basophils % 0.2; Eosinophils % 1.8; HGB 8.6 g/dL (11.2-15.7); Immature Grans % 0.6; Lymphocytes % 14.7; MCH 25.8 pg (27.0-33.0); MCHC 29.7 % (32.0-36.0); MCV 87.1 fL (80-95); MPV 10.6 fL (8.0-11.0); Monocytes % 7.3; Neutrophils % 75.4; Nucleated RBC 0 %; Platelet Count 281 10^3/uL (130-400); RBC 3.33 10^6/uL (3.93-5.22); RDW 14.3 % (11.7-14.6); RDW-SD 45.5 fL
[2021-07-24 08:01] LABS: Absolute Neutrophil Count 4.67 10^3/uL (1.2-6.7)
[2021-07-24] MEDS: Gabapentin 300 MG CAP PO ×2 (08:12→20:56)
[2021-07-24] MEDS: Multivitamin TAB 1 TAB PO (08:12)
[2021-07-24] MEDS: Ferrous Sulfate 325 MG TAB PO ×2 (08:12→20:56)
[2021-07-24 08:14] LABS: ALT 17 U/L (14-59); AST 13 U/L (15-37); Albumin 2.6 g/dL (3.4-5.0); Alkaline Phosphatase 82 U/L (46-116); Anion Gap 8.3 mmol/L (3-11); BUN 15 mg/dL (7-18); Bilirubin, Total 0.2 mg/dL (0.2-1.0); CO2 26.7 mmol/L (21.0-32.0); CREATININE 0.8 mg/dL (0.55-1.02); Calcium 8.1 mg/dL (8.5-10.1); Chloride 106 mmol/L (98-107); Glucose 100 mg/dL (74-106); Potassium 3.7 mmol/L (3.5-5.1); Sodium 141 mmol/L (136-145); Total Protein 7.5 g/dL (6.4-8.2)
[2021-07-24] MEDS: Ibuprofen 800 MG TAB PO ×2 (08:18→15:44)
[2021-07-24] MEDS: VANCOMYCIN/WATER (PEG) 1 GM/200 ML BAG IVPB ×2 (09:18→15:39)
[2021-07-24] MEDS: Buprenorphine/Naloxone 2 mg/0.5 mg FILM 3 EACH SL (09:18)
--- NOTE | 2021-07-24 09:56 | PGE_ITS ---
Date of Service Date of service: 07/24/21 Time of Service: 12:30 Assessment and Plan Assessment and plan (1) Osteomyelitis of finger of right hand: Start date: 07/23/21 Status: Acute Assessment and plan: Blood Cx pending. She has been evaluated by ortho. Per ortho consult: hopefully IV antibiotics will help cure this infection, but surgery may be indicated to washout the joint and debride the bone.? However, if that is done, she may need PIP fusion down the road.? We discussed that it is unlikely she will have significant function of the third digit in the best case scenario, and amputation may be warranted if this infection does not clear up. May need transfer for hand surgery evaluation either [facility] [place] or [facility] depending on clinical course. Strict elevation. Continue Cefepime and vanco, on day #2. (2) Cellulitis of finger of right hand: Start date: 07/23/21 Status: Acute Assessment and plan: As above. Pt notes improvement. (3) Finger, open wounds, complicated: Start date: 07/23/21 Assessment and plan: As above. (4) Leg wound, right: Start date: 07/23/21 Status: Acute Assessment and plan: Abrasion right BKA stump over healed scar with early cellulitis, appears to be healing. Continue Abx as above. (5) DVT prophylaxis: Status: Acute Assessment and plan: Continue lovenox. Subjective Subjective Interval history since last seen: Pt reports she is tired but feeling better overall. She reports decreased erythema to her right hand and right stump. She notes there is still swelling to her right hand but starting to improve. She reports aching in her right hand, states it has been numb since her carpal tunnel surgery in 03/2021. She denies drainage from the wounds. She is eating and drinking and tolerating her diet. She denies n/v/d. She denies other concerns. Exam Narrative Exam Narrative: General: sitting up in the chair in her room, she is awake, appears fatigued, pleasant and talkative. HEENT: normocephalic, atraumatic, EOMI, mucous membranes moist. Neck: supple, no JVD. Cardiovascular: heart sounds regular, nontachycardic. Respiratory: respirations appear even and unlabored, lung sounds are clear throughout. GI: +BS, abdomen is soft, nontender on palpation, nondistended. Extremities: RBKA with healing wound to stump, L hand with contractures. R hand with swelling and wounds to RMF and index finger as well as on surgical scar from previous carpal tunnel surgery. Moves all 4 extremities freely. Skin: R hand with erythema and swelling of fingers, hand and down wrist, most notably to her RMF. Wounds noted to RMF and R index finger at volar tip. No active drainage noted. Objective Last Vital Signs Temp 36.8 C 07/24/21 07:30 Pulse 77 07/24/21 07:30 Resp 18 07/24/21 07:30 BP 110/68 07/24/21 07:30 Pulse Ox 98 07/24/21 07:30 Laboratory Results - last 24 hr 07/23/21 07/23/21 07/23/21 17:55 17:55 17:55 WBC 9.56 RBC 3.45 L Hgb 8.9 L Hct 29.6 L MCV 85.8 MCH 25.8 L MCHC 30.1 L RDW 14.0 Plt Count 278 MPV 10.2 Immature Gran % 0.7 Neutrophils % 86.6 Lymphocytes % 6.9 Monocytes % 4.6 Eosinophils % 1.0 Basophils % 0.2 Nucleated RBC % 0 Absolute Neutrophils 8.27 H Absolute Lymphocytes 0.66 L Absolute Monocytes 0.44 Absolute Eosinophils 0.10 Absolute Basophils 0.02 VBG Lactate 0.7 Sodium 136 Potassium 4.2 Chloride 103 Carbon Dioxide 27.7 Anion Gap 5.3 BUN 20 H Creatinine 0.7 Estimated GFR/1.73 m2 >= 60.00 Glucose 121 H Calcium 8.4 L Total Bilirubin 0.2 AST 13 L ALT 19 Alkaline Phosphatase 90 C-Reactive Protein 10.23 H Total Protein 7.8 Albumin 2.8 L COVID-19 Source SARS-CoV-2 (PCR) 07/23/21 07/24/21 07/24/21 20:10 07:10 07:10 WBC 6.20 D RBC 3.33 L Hgb 8.6 L Hct 29.0 L MCV 87.1 MCH 25.8 L MCHC 29.7 L RDW 14.3 Plt Count 281 MPV 10.6 Immature Gran % 0.6 Neutrophils % 75.4 Lymphocytes % 14.7 Monocytes % 7.3 Eosinophils % 1.8 Basophils % 0.2 Nucleated RBC % 0 Absolute Neutrophils 4.67 Absolute Lymphocytes 0.91 L Absolute Monocytes 0.45 Absolute Eosinophils 0.11 Absolute Basophils 0.01 VBG Lactate Sodium 141 Potassium 3.7 Chloride 106 Carbon Dioxide 26.7 Anion Gap 8.3 BUN 15 Creatinine 0.8 Estimated GFR/1.73 m2 >= 60.00 Glucose 100 Calcium 8.1 L Total Bilirubin 0.2 AST 13 L ALT 17 Alkaline Phosphatase 82 C-Reactive Protein Total Protein 7.5 Albumin 2.6 L COVID-19 Source Nasal/Nares SARS-CoV-2 (PCR) Negative PAWSS Have you Been Recently Intoxicated or Drunk Within the Last 30 days?: No Have you Ever Experienced Previous Episodes of Alcohol Withdrawal?: No Have you ever Experienced Withdrawal Seizures?: No Have you ever Experienced Delirium Tremens(DT)s?: No Have you ever undergone Alcohol Rehabilitation Treatment (i.e, inpt ot outpatient treatment programs)?: No Have you ever Experienced Blackouts?: No Have you ever Combined Alcohol with other Downers within the last 90 days?: No Have you ever Combined Alcohol with any other Substance of Abuse during the last 90 days?: No Positive Blood Alcohol level on Presentation? [PCS.BAL]: No Evidence of Increased Autonomic Activity (i.e. HR>120, tremor, sweating, agitation, nausea)?: No Result: 0
--- NOTE | 2021-07-24 10:10 | W.ORTHOCONSU ---
Date of service: 07/24/21 Time of Service: 10:11 History of Present Illness History of Present Illness Chief Complaint: Right hand pain and swelling Narrative: The patient is a 40 year old RHD female who was admitted last evening, 07/23/21, for right middle finger swelling and wound. The patient has a complicated PMHx with multiple infections. She states the last time she used was years ago, but she cannot remember specifically. She developed a wound in her right leg (Mid-st) around 3 years ago, treated at [place] at the time. She ended up getting a right BKA for that wound due to lack of healing. She then developed a hand infection with swelling in March 2021. She ended up getting numbness so she was treated at [facility] for acute carpal tunnel syndrome with open release. That wound has not gone on to heal. Around 2 weeks ago she was walking in the [employer] parking lot in [place] when she slipped on her crutches and fell hitting her distal R BKA stump hard on pavement and her right hand hit the ground dorsally as well. She got an abrasion over the dorsum of the right third finer, and about a week ago it really opened up and she states she has seen bone through the dorsal wound. She noticed a blood blister on her right 2nd finger and then that went on to become necrotic with a volar distal tuft wound. She denies fevers/chills. She presented to the ED at [facility] yesterday. [facility] was called for transfer for possible acute suppurative flexor tenosynovitis but they refused acute transfer. She was admitted here to the hospital medicine service for Vancomycin and Cefepime. She denies any significant pain at this point. She has had numbness in the fingers, sparing the ulnar 2 digits, ever since her infection in March. No other current infections. Her R BKA stump is also uncomfortable. She has lack of use of her left hand with chronic flexion contracture related to having had a tourniquet on for too long (drug use) causing muscle damage. She was found to have an elevated CRP (~10) without leukocytosis and no fevers. No fevers overnight. Consults Consult date: 07/24/21 Requesting physician: Kraig Ferro Consult Reason Right Hand infection Assessment and Plan Assessment and plan (1) Osteomyelitis of finger of right hand: Status: Acute Assessment and plan: Osteomyelitis and open wound of R third digit. We discussed that hopefully IV antibiotics will help cure this infection, but surgery may be indicated to washout the joint and debride the bone. However, if that is done, she may need PIP fusion down the road. We discussed that it is unlikely she will have significant function of the third digit in the best case scenario, and amputation may be warranted if this infection does not clear up. May need transfer for hand surgery evaluation either [facility] or [facility] depending on clinical course. Strict elevation. (2) Cellulitis of finger of right hand: Status: Acute Assessment and plan: Cellulitis with swelling and mild erythema of the right middle finger and diffusely in the hand. Continue IV antibiotics. (3) Leg wound, right: Status: Acute Assessment and plan: Right BKA stump appears slightly red. Would continue treating with IV abx. No fluid collection currently noted. Monitor. PFSH All Active Problems DVT prophylaxis (Acute) Open wound of finger of right hand (Acute) Tenosynovitis of finger (Acute) Osteomyelitis of finger of right hand (Acute) Cellulitis of finger of right hand (Acute) Leg wound, right (Acute) Cellulitis of toe of left foot (Acute) Abnormal finding on imaging (Acute) Abnormal MRI (Acute) Dysuria (Acute) 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 Patient has appointment at [facility] in [place] for consideration of termination History of intravenous drug abuse (Acute) Cellulitis of left lower extremity (Acute) Poor intravenous access (Acute) Chronic infection as complication of amputation (Acute) Heart murmur (Acute) Hypotension (Chronic) Petechial rash (Acute) Acute on chronic anemia (Acute) Osteomyelitis of right lower extremity (Chronic) DVT, lower extremity, distal, acute (Acute) 10/24 2018 left lower extremity. Rx with Eliquis. Abnormal uterine bleeding (AUB) (Acute) On. Set 10/24/2018 heavy flow coinciding with initiation of Eliquis Normocytic hypochromic anemia (Acute) 10/26/2018 hemoglobin 8.2 MCV 83 Medical History Endometriosis Hx of hepatitis C AB +. No viral load. Hx of opioid abuse Currently in treatment at [facility]. Suboxone. Raynaud disease Surgical History Complete below knee amputation of right lower extremity 2018. 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 [facility]. 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 H/O hand surgery contracted post-op History of transesophageal echocardiography (YG) negative Retained foreign body L groin, s/p unsuccessful exploratory surgery Family History Father Diabetes Paternal Grandfather Diabetes Paternal Aunt Diabetes Maternal Grandmother Breast cancer Maternal Aunt Multiple sclerosis Social History Smoking/Tobacco Use Status: Never Smoking risk assessment performed?: Yes Alcohol Intake: former Drug use: Current Sobriety Substance use type: former substance user, crack/cocaine, heroin and methamphetamine Details: former cocaine (snorted, smoked, IV) and heroin use (IV), as well as crystal meth (IV). Patient is currently enrolled at [facility], on suboxone Household members: children and other Details: Patient resides at her sister's house with her daughter Housing: apartment Number of Children: 1 current occupation: Unemployed Sexually active: Yes Do you think of yourself as: straight/heterosexual Current gender identity: female Seatbelt use: always Do you feel safe at home: Yes Do you feel safe in your relationship?: Yes Additional Social history: Ambulates with crutches - 2 falls recently Exam Narrative Exam Narrative: Awake, alert, pleasant, interactive RUE: Swelling worst in the middle finger. Hand swollen as well as forearm as well. BCR in fingertips. She has a large wound with scant serous drainage from the wound. Mild erythema throughout the hand, similar to left hand. EPL/FPL intact. IO intact. Radial pulse faintly palpable. No TTP with palpation of the volar middle digit. Mild discomfort with passive flexion of the third digit. Right second finger with ulceration on the volar tip. No drainage noted. Carpal tunnel incision with long scab, chronically not healed. No erythema/drainage. LUE: Hand with flexion contracture of all digits, unable to extend the digits of the hand. RLE: BKA stump well-healed except one small area of scabbing. No fluid collections. Mild diffues erythema. Results Last Vital Signs Temp 36.8 C 07/24/21 07:30 Pulse 77 07/24/21 07:30 Resp 18 07/24/21 07:30 BP 110/68 07/24/21 07:30 Pulse Ox 98 07/24/21 07:30 Labs Result diagrams: 07/24/21 07:10 07/24/21 07:10 Labs: Laboratory Results - last 24 hr 07/23/21 07/23/21 07/23/21 17:55 17:55 17:55 WBC 9.56 RBC 3.45 L Hgb 8.9 L Hct 29.6 L MCV 85.8 MCH 25.8 L MCHC 30.1 L RDW 14.0 Plt Count 278 MPV 10.2 Immature Gran % 0.7 Neutrophils % 86.6 Lymphocytes % 6.9 Monocytes % 4.6 Eosinophils % 1.0 Basophils % 0.2 Nucleated RBC % 0 Absolute Neutrophils 8.27 H Absolute Lymphocytes 0.66 L Absolute Monocytes 0.44 Absolute Eosinophils 0.10 Absolute Basophils 0.02 VBG Lactate 0.7 Sodium 136 Potassium 4.2 Chloride 103 Carbon Dioxide 27.7 Anion Gap 5.3 BUN 20 H Creatinine 0.7 Estimated GFR/1.73 m2 >= 60.00 Glucose 121 H Calcium 8.4 L Total Bilirubin 0.2 AST 13 L ALT 19 Alkaline Phosphatase 90 C-Reactive Protein 10.23 H Total Protein 7.8 Albumin 2.8 L COVID-19 Source SARS-CoV-2 (PCR) 07/23/21 07/24/21 07/24/21 20:10 07:10 07:10 WBC 6.20 D RBC 3.33 L Hgb 8.6 L Hct 29.0 L MCV 87.1 MCH 25.8 L MCHC 29.7 L RDW 14.3 Plt Count 281 MPV 10.6 Immature Gran % 0.6 Neutrophils % 75.4 Lymphocytes % 14.7 Monocytes % 7.3 Eosinophils % 1.8 Basophils % 0.2 Nucleated RBC % 0 Absolute Neutrophils 4.67 Absolute Lymphocytes 0.91 L Absolute Monocytes 0.45 Absolute Eosinophils 0.11 Absolute Basophils 0.01 VBG Lactate Sodium 141 Potassium 3.7 Chloride 106 Carbon Dioxide 26.7 Anion Gap 8.3 BUN 15 Creatinine 0.8 Estimated GFR/1.73 m2 >= 60.00 Glucose 100 Calcium 8.1 L Total Bilirubin 0.2 AST 13 L ALT 17 Alkaline Phosphatase 82 C-Reactive Protein Total Protein 7.5 Albumin 2.6 L COVID-19 Source Nasal/Nares SARS-CoV-2 (PCR) Negative Imaging Imaging Studies: XR Reviewed of the right hand showing PIP joint destruction and subluxation of the 3rd PIP joint.
[2021-07-24 11:45] VITALS: BP 106/79; PULSE 76; RESP 18; TEMP 36.8; O2SAT 99
--- NOTE | 2021-07-24 12:12 | PHA.REVIEW ---
Pharmacy Admission Review - Admission Clinical Review (Last Reviewed 07/24/21 @ 10:19 by Eren Ibarra MD) DVT prophylaxis (Acute) Open wound of finger of right hand (Acute) Tenosynovitis of finger (Acute) Osteomyelitis of finger of right hand (Acute) Cellulitis of finger of right hand (Acute) Leg wound, right (Acute) No Known Allergies Allergy (Verified 07/23/21 20:13) Resuscitation Status Full Code Height 5 ft 4 in Weight 59.1 kg - Renal Dosing Renal Dosing: BUN 15 mg/dL (7-18) 07/24/21 07:10 Creatinine 0.8 mg/dL (0.55-1.02) 07/24/21 07:10 Medications needing adjustments: Reviewed (SCr: 0.8, eCrCl: 82.33mL/min. All medications dosed appropriately.) - Anticoagulation Anticoagulation: Hgb 8.6 g/dL (11.2-15.7) L 07/24/21 07:10 Hct 29.0 % (36.0-46.0) L 07/24/21 07:10 Plt Count 281 10^3/uL (130-400) 07/24/21 07:10 Creatinine 0.8 mg/dL (0.55-1.02) 07/24/21 07:10 DVT Prophylaxis: Reviewed Medications: Enoxaparin (Enoxaparin 40mg SC Q24H.) - Opiate Usage Evaluate Pain Scale/Pains Meds: N/A Scheduled Bowel Reg ordered if on Opiates?: No (PRN Miralax, Docusate) - Relevant Labs Sodium 141 mmol/L (136-145) 07/24/21 07:10 Potassium 3.7 mmol/L (3.5-5.1) 07/24/21 07:10 Chloride 106 mmol/L (98-107) 07/24/21 07:10 C-Reactive Protein 10.23 mg/dL (0.0-0.3) H 07/23/21 17:55 Electrolytes, C-Reactive P, ESR: Reviewed - DM Control DM Control: Glucose 100 mg/dL (74-106) 07/24/21 07:10 Insulin Dosing: N/A - Heart Failure/IL EF%, ENRIQUE's, B-Blockers, Diuretics: N/A - BP Control BP Control: Blood Pressure 110/68 Blood Pressure 101/64 If elevated: Reviewed - Qtc Review If Elevated: N/A - IV to PO Switch IV Medications: Reviewed - Home Meds Home Med List reviewed: Reviewed Relevent Home Meds Not ordered & why?: All home meds ordered. Suboxone dose will be verified Sunday. - Current meds Current Medication Order Review: Reviewed - Comments Comments/Follow Ups: Continue to monitor vancomycin trough, labs, vitals and for medication changes. Antibiotic Activity - Pharmacy Antibiotic Review Pharmacy Antibiotic Activity: Reviewed, no change (Vancomycin (Day 2), Cefepime (Day 2) - culture and sensitivities pending.)
--- NOTE | 2021-07-24 13:47 | INITIAL_ITS ---
- If Service Date Differs Date of service: 07/24/21 Time of Service: 13:47 Care Management Initial Assess REASON FOR HOSPITALIZATION:: Osteomyelitis R 3rd finger, cellulitis, IVDU PAST MEDICAL HISTORY/PAST SURGICAL HISTORY:: Osteomyelitis and open wound of R third digit. We discussed that hopefully IV antibiotics will help cure this infection, but surgery may be indicated to washout the joint and debride the bone. However, if that is done, she may need PIP fusion down the road. We discussed that it is unlikely she will have significant function of the third digit in the best case scenario, and amputation may be warranted if this infection does not clear up. May need transfer for hand surgery evaluation either [facility] or [facility] depending on clinical course. Abrasion right BKA stump over healed scar with early cellulitis. This should be covered by vancomycin and cefepime may not require wound care. Avoid reinjury. Patient does walk with crutches. Medical History . Endometriosis. Hx of hepatitis C. AB +. No viral load. Hx of opioid abuse. Currently in treatment at [facility]. Suboxone. Raynaud disease. Surgical History . Complete below knee amputation of right lower extremity. 2019. 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 Discharged from chronic care facility 09/2018. Femoral artery aneurysm, right. 06/2017. [facility]. 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 H/O hand surgery. contracted post-op. History of transesophageal echocardiography (YG). negative. Retaine d foreign body. L groin, s/p unsuccessful exploratory surgery PREVIOUS FUNCTIONAL STATUS/SOCIAL/FAMILY SUPPORTS:: Lindsay resides in [facility], her and mother are close by. Lindsay has a BKA resulting in disability determination. She is supported locally by [facility] as well. She ambulates with crutches and recently fell, now with non-healing wounds. CURRENT FUNCTIONAL STATUS:: Lindsay is sitting in her chair, enjoying lunch when meets with her. She shares no concerns at this time, but does review previous extended hospitalizations and difficulties with staff due to her EMERY history. CM reviewed role, including patient advocation and encouraged Lindsay to outreach to CM if she starts to feel this way at [facility]. At this time, she stated all the staff have been great, and she verbalizes understanding of her care plan at this time; awaiting further consults tomorrow. ADVANCE DIRECTIVES:: None on file. Has patient been provided with info about the portal/API?: Yes Did the patient sign up for the portal?: Yes CODE STATUS:: Full Code INSURANCE COVERAGE / FINANCIAL ISSUES:: Medicare. Medicaid CURRENT HOME/COMMUNITY SERVICES/EQUIPMENT:: [facility]: Suboxone PRIMARY CARE PHYSICIAN:: Georgette Reza POTENTIAL DISCHARGE NEEDS:: Undetermined at this time. PATIENT/FAMILY EDUCATION NEEDS:: Review of CM role, patient advocation, discharge planning considerations. ANTICIPATED BARRIERS TO DISCHARGE:: Per MD, Lindsay may require transfer or extended hospitalization for IV ABX; undetermined at this time. TRANSPORTATION:: Dependent on disposition. PLAN:: Per Ortho consult: Osteomyelitis and open wound of R third digit. We discussed that hopefully IV antibiotics will help cure this infection, but surgery may be indicated to washout the joint and debride the bone. However, if that is done, she may need PIP fusion down the road. We discussed that it is unlikely she will have significant function of the third digit in the best case scenario, and amputation may be warranted if this infection does not clear up. May need transfer for hand surgery evaluation either [facility] or [facility] depending on clinical course. CM will continue to follow and support Lindsay during hospitalization. Discharge plan to be determined by further evaluation, clinical course, test results and consultations planned for tomorrow, Sunday07/25/21.
[2021-07-24 15:42] VITALS: BP 103/69; PULSE 75; RESP 16; TEMP 36.6; O2SAT 97
[2021-07-24 19:21] VITALS: BP 105/71; PULSE 74; RESP 20; TEMP 36.2; O2SAT 99
[2021-07-24] MEDS: Enoxaparin 40 MG/0.4 ML SYR SC (22:04)
[2021-07-24 23:21] VITALS: BP 100/64; PULSE 74; RESP 16; TEMP 36.4; O2SAT 98
[2021-07-25] MEDS: VANCOMYCIN/WATER (PEG) 1 GM/200 ML BAG IVPB (00:19)
[2021-07-25] MEDS: Normal Saline Flush 10 ML SYR IVP ×2 (00:20→19:21)
[2021-07-25 03:10] VITALS: BP 98/61; PULSE 79; RESP 16; TEMP 36.6; O2SAT 97
[2021-07-25] MEDS: CEFEPIME 2 GM in Normal Saline 100 ML IVPB (05:27)
[2021-07-25 06:47] LABS: Abs Immature Grans 0.05 10^3/uL (0.0-0.06); Absolute Basophil Count 0.02 10^3/uL (0.0-0.2); Absolute Eosinophil Count 0.08 10^3/uL (0.0-0.7); Absolute Lymphocyte Count 0.78 10^3/uL (1.2-3.4); Absolute Monocyte Count 0.54 10^3/uL (0.1-0.8); Absolute Neutrophil Count 4.11 10^3/uL (1.2-6.7); Basophils % 0.4; Eosinophils % 1.4; HCT 29.3 % (36.0-46.0); HGB 8.8 g/dL (11.2-15.7); Immature Grans % 0.9; MCH 25.9 pg (27.0-33.0); MCV 86.2 fL (80-95); MPV 10.9 fL (8.0-11.0); Monocytes % 9.7; Neutrophils % 73.6; Nucleated RBC 0 %; Platelet Count 302 10^3/uL (130-400); RDW 14.3 % (11.7-14.6); RDW-SD 45.1 fL; WBC 5.58 10^3/uL (4.4-10.8)
[2021-07-25 06:58] LABS: Anion Gap 8.4 mmol/L (3-11); BUN 26 mg/dL (7-18); CO2 24.6 mmol/L (21.0-32.0); CREATININE 0.8 mg/dL (0.55-1.02); Calcium 8.4 mg/dL (8.5-10.1); Chloride 104 mmol/L (98-107); Glucose 93 mg/dL (74-106); Potassium 4.1 mmol/L (3.5-5.1); Sodium 137 mmol/L (136-145)
[2021-07-25 07:01] LABS: C-Reactive Protein 4.96 mg/dL (0.0-0.3)
[2021-07-25 07:17] LABS: Vancomycin, Trough 29.5 ug/mL (10.0-20.0)
[2021-07-25 07:32] VITALS: BP 100/63; PULSE 76; RESP 17; TEMP 36.7; O2SAT 97
[2021-07-25] MEDS: Gabapentin 300 MG CAP PO ×2 (07:37→21:13)
[2021-07-25] MEDS: Ibuprofen 800 MG TAB PO (07:37)
[2021-07-25] MEDS: Ferrous Sulfate 325 MG TAB PO ×2 (07:37→19:21)
[2021-07-25] MEDS: Multivitamin TAB 1 TAB PO (07:37)
[2021-07-25] MEDS: Buprenorphine/Naloxone 2 mg/0.5 mg FILM 3 EACH SL (07:38)
[2021-07-25 11:25] VITALS: BP 103/63; PULSE 71; RESP 17; TEMP 36.6; O2SAT 98
[2021-07-25] MEDS: VANCOMYCIN/WATER (PEG) 1.25 GM/250 ML BAG IVPB (12:19)
[2021-07-25 15:49] VITALS: BP 106/62; PULSE 74; RESP 16; TEMP 36.6; O2SAT 99
--- NOTE | 2021-07-25 16:34 | PDOC.CMPRO ---
- If Service Date Differs Date of service: 07/25/21 Time of Service: 16:35 Care Management Progress Note S/O: Lindsay remains inpatient at this time. No medical updates available at time of documentation. Lindsay remains pleasant in interaction. CM continues to follow. A: 40 year old female admitted to [facility] 07/23/21 with Osteomyelitis R 3rd finger, cellulitis P: [facility] will discharge to SNF upon discharge; referral to be faxed to [facility] and further facility review-[facility] would like additional resources for SNF determination. As well, additional service resources including fishing rod mechanic, contractor to be provided. CM continues to follow.
--- NOTE | 2021-07-25 16:37 | PGE_ITS ---
Date of Service Date of service: 07/25/21 Time of Service: 16:38 Assessment and Plan Assessment and plan (1) Osteomyelitis of finger of right hand: Start date: 07/25/21 Start time: 16:52 Status: Acute Assessment and plan: Blood Cx negative to date She has been evaluated by ortho. Per Dr. Hanna, Varg[place]se PO, he will take her to OR tomorrow for wash out, bone is spongy he will amputate, finger. Patinet is aware of plan. NPO after [facility] IVF to start at [facility] monitor labs and wounds (2) Cellulitis of finger of right hand: Start date: 07/25/21 Start time: 16:52 Status: Acute Assessment and plan: As above. Pt notes improvement. (3) Finger, open wounds, complicated: Start date: 07/25/21 Start time: 16:52 Assessment and plan: As above. (4) Leg wound, right: Start date: 07/25/21 Start time: 16:52 Status: Acute Assessment and plan: Abrasion right BKA stump over healed scar with early cellulitis, appears to be healing. Continue Abx as above. (5) DVT prophylaxis: Start date: 07/25/21 Start time: 16:52 Status: Acute Assessment and plan: Continue lovenox. Will hold for surgery Resume per orthro recommendations discussed with Dr. Ferro Subjective Subjective Patient reports: other Interval history since last seen: Patient has numbness to hands. Right hand with large open reddened wound open to middle knuckle, right finger with open, slightly scabbed wound, she also have, scabbed areas to her wrist with sutures in which she states she had carpal tunnel surgery recently. She is going to the OR tomorrow with Dr. Hanna, NPO after [facility], will start IVF at [facility]. Exam Narrative Exam Narrative: General: lying in bed, she is awake, alert oriented pleasant and talkative. HEENT: normocephalic, atraumatic, EOMI, mucous membranes moist. Neck: supple, no JVD. Cardiovascular: heart sounds regular, nontachycardic. Respiratory: respirations appear even and unlabored, lung sounds are clear throughout. GI: +BS, abdomen is soft, nontender on palpation, nondistended. Extremities: RBKA with healing wound to stump, L hand with contractures. R hand with swelling and wounds to RMF large open area, and index finger with scab as well as on surgical scar from previous carpal tunnel surgery sutures in place. Moves all 4 extremities freely. Skin: R hand with erythema and swelling of fingers, hand and down wrist, most notably to her RMF. Wounds noted to RMF and R index finger at volar tip. No active drainage noted. Objective Last Vital Signs Temp 36.6 C 07/25/21 15:49 Pulse 74 07/25/21 15:49 Resp 16 07/25/21 15:49 BP 106/62 07/25/21 15:49 Pulse Ox 99 07/25/21 15:49 Laboratory Results - last 24 hr 07/25/21 07/25/21 07/25/21 06:10 06:10 06:10 WBC 5.58 RBC 3.40 L Hgb 8.8 L Hct 29.3 L MCV 86.2 MCH 25.9 L MCHC 30.0 L RDW 14.3 Plt Count 302 MPV 10.9 Immature Gran % 0.9 Neutrophils % 73.6 Lymphocytes % 14.0 Monocytes % 9.7 Eosinophils % 1.4 Basophils % 0.4 Nucleated RBC % 0 Absolute Neutrophils 4.11 Absolute Lymphocytes 0.78 L Absolute Monocytes 0.54 Absolute Eosinophils 0.08 Absolute Basophils 0.02 Sodium Potassium Chloride Carbon Dioxide Anion Gap BUN Creatinine Estimated GFR/1.73 m2 Glucose Calcium C-Reactive Protein 4.96 H Vancomycin Trough 29.5 H* 07/25/21 06:10 WBC RBC Hgb Hct MCV MCH MCHC RDW Plt Count MPV Immature Gran % Neutrophils % Lymphocytes % Monocytes % Eosinophils % Basophils % Nucleated RBC % Absolute Neutrophils Absolute Lymphocytes Absolute Monocytes Absolute Eosinophils Absolute Basophils Sodium 137 Potassium 4.1 Chloride 104 Carbon Dioxide 24.6 Anion Gap 8.4 BUN 26 H D Creatinine 0.8 Estimated GFR/1.73 m2 >= 60.00 Glucose 93 Calcium 8.4 L C-Reactive Protein Vancomycin Trough PAWSS Have you Been Recently Intoxicated or Drunk Within the Last 30 days?: No Have you Ever Experienced Previous Episodes of Alcohol Withdrawal?: No Have you ever Experienced Withdrawal Seizures?: No Have you ever Experienced Delirium Tremens(DT)s?: No Have you ever undergone Alcohol Rehabilitation Treatment (i.e, inpt ot outpati ent treatment programs)?: No Have you ever Experienced Blackouts?: No Have you ever Combined Alcohol with other Downers within the last 90 days?: No Have you ever Combined Alcohol with any other Substance of Abuse during the last 90 days?: No Positive Blood Alcohol level on Presentation? [PCS.BAL]: No Evidence of Increased Autonomic Activity (i.e. HR>120, tremor, sweating, agitation, nausea)?: No Result: 0
[2021-07-25] MEDS: levoFLOXacin 500 MG, levoFLOXacin 250 MG 750 MG PO (16:38)
--- NOTE | 2021-07-25 17:28 | W.ORTHOCONSU ---
Date of service: 07/25/21 Time of Service: 12:50 History of Present Illness History of Present Illness Chief Complaint: Right Middle Finger Infection Narrative: Lindsay is a 40-year-old who was seen by my colleague over the weekend, Dr. Ibarra, for a right middle finger infection. The story is not complete. She did have a fall onto the dorsum of the right middle finger which started this process per her report. However, the x-rays show that this is a longstanding issue with involucrum. When I further discussed this with her she does think that maybe she had symptoms in this finger when she had an infection within the right carpal tunnel. She is status post open carpal tunnel release due to infection. Is unclear if she followed up at [facility] as she still has a large scab about the right wrist and some retained sutures. She is dependent on her right hand as she has a what was contracture about the left side. She has not felt any significant improvements with the IV antibiotics about the right finger although the pain seems to be subsiding but the finger is largely numb in her opinion. She is very interested in getting out of the hospital soon as possible. No other complaints of joint pains elsewhere. She does report an abrasion to the BKA stump on the right leg but she feels that this is healing appropriately without any acute concerns. Consults Consult date: 07/25/21 Requesting physician: Kraig Ferro Consult Reason Right middle finger osteomyelitis with open wound Assessment and Plan Assessment and plan (1) Open wound of finger of right hand: Status: Acute (2) Osteomyelitis of finger of right hand: Status: Acute Assessment and plan: Lindsay is a 40-year-old female former IV drug user who unfortunately has a significant infection about her right hand. She did have an infection about the carpal tunnel on the right hand back in March and I am concerned that this may be was related to that initial incident. 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 This takes some time to form and is not just a week or 2 old. These changes are involving the majority of the proximal phalanx and the erosions are present both of the middle phalanx and the head of the proximal phalanx. That open wound over the dorsum of the right middle finger communicates directly at the proximal phalangeal head and there is active purulence draining from this wound. She has relied on the right hand and that this point there is no active extensor function about the right finger. I was very honest with Tiffany that this is likely not going to heal on its own. I would recommend surgical intervention for open irrigation and debridement at a minimum. However, I am concerned about the ability to treat this given the involucrum and changes seen within the PIP joint. Even if we were to eradicate the infection the loss of the extensor tendon as well as the deformity of the middle and proximal phalanges would make full function quite limited. This may be something to consider a fusion on in the future but at least be riddled with incongruity of the joint and arthritis. She has a previous amputation of the right leg and a Volkman contracture about the left arm which does limit her function. However, I am concerned that this right finger may just get in the way. Given its shape, the wound, and the status of the bone and amputation would be a reasonable next step. This would allow a fairly quick antibiotic course to remove the wound as well as the bulk of the infectious material. Being the middle finger, this would have little effect on her overall function but it would be reversible. She does not seem to have a clear preference on how to go and I think she should think about it tonight and I will review with her again in the morning. However, I would recommend we proceed with surgical intervention tomorrow with irrigation and debridement versus amputation of the middle finger. 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 Patient has appointment at [facility] in [place] for consideration of termination History of intravenous drug abuse (Acute) Cellulitis of left lower extremity (Acute) Poor intravenous access (Acute) Chronic infection as complication of amputation (Acute) Heart murmur (Acute) Hypotension (Chronic) Petechial rash (Acute) Acute on chronic anemia (Acute) Osteomyelitis of right lower extremity (Chronic) DVT, lower extremity, distal, acute (Acute) 10/24 2018 left lower extremity. Rx with Eliquis. Abnormal uterine bleeding (AUB) (Acute) On. Set 10/24/2018 heavy flow coinciding with initiation of Eliquis Normocytic hypochromic anemia (Acute) 10/26/2018 hemoglobin 8.2 MCV 83 Medical History Endometriosis Hx of hepatitis C AB +. No viral load. Hx of opioid abuse Currently in treatment at [facility]. Suboxone. Raynaud disease Surgical History Complete below knee amputation of right lower extremity 2018. 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 [facility]. 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 H/O hand surgery contracted post-op History of transesophageal echocardiography (YG) negative Retained foreign body L groin, s/p unsuccessful exploratory surgery Family History Father Diabetes Paternal Grandfather Diabetes Paternal Aunt Diabetes Maternal Grandmother Breast cancer Maternal Aunt Multiple sclerosis Social History Smoking/Tobacco Use Status: Never Smoking risk assessment performed?: Yes Alcohol Intake: former Drug use: Current Sobriety Substance use type: former substance user, crack/cocaine, heroin and methamphetamine Details: former cocaine (snorted, smoked, IV) and heroin use (IV), as well as crystal meth (IV). Patient is currently enrolled at [facility], on suboxone Household members: children and other Details: Patient resides at her sister's house with her daughter Housing: apartment Number of Children: 1 current occupation: Unemployed Sexually active: Yes Do you think of yourself as: straight/heterosexual Current gender identity: female Seatbelt use: always Do you feel safe at home: Yes Do you feel safe in your relationship?: Yes Additional Social history: Ambulates with crutches - 2 falls recently Exam Narrative Exam Narrative: Tiffany is cooperative and pleasant during the evaluation today. She is alert and oriented x3. No acute distress. She is engaged and asked appropriate questions. Evaluation of the right hand shows an obvious defect to the dorsal aspect of the right middle finger at the level of PIP joint. With any attempted flexion there is gapping of the wound over the dorsum of the joint with purulent material expressed through this gap. There also appears to be some bony material evident the base of the wound. The finger is notably swollen although it is not a true flexor tenosynovitis and that she does not have significant pain along the flexor tendon into the hand and it seems to be primarily involving the joint itself. Redness is limited to the finger. There is also an area of partial-thickness skin loss over the radial, distal aspect of the index finger which may be somewhat vascular in nature given his dry appearance. The remainder of the hand and the fingers appears within normal limits except for the volar aspect of the wrist in the palm where a previous incision for carpal tunnel seen. This is encased in thick and adherent scar tissue. There also appears to be suture materials within this eschar. She is quite sensitive and I try to touch this at all and further evaluate it which was impossible. She endorses full sensation of the median, radial, ulnar nerve. Palpable radial pulse. She has no active extension of the right middle finger. She is able demonstrate some flexion of the right middle finger although it is limited. Passively I can get her to about 30 degrees of extension. Results Last Vital Signs Temp 36.6 C 07/25/21 15:49 Pulse 74 07/25/21 15:49 Resp 16 07/25/21 15:49 BP 106/62 07/25/21 15:49 Pulse Ox 99 07/25/21 15:49 Labs Result diagrams: 07/25/21 06:10 07/25/21 06:10 Labs: Laboratory Results - last 24 hr 07/25/21 07/25/21 07/25/21 06:10 06:10 06:10 WBC 5.58 RBC 3.40 L Hgb 8.8 L Hct 29.3 L MCV 86.2 MCH 25.9 L MCHC 30.0 L RDW 14.3 Plt Count 302 MPV 10.9 Immature Gran % 0.9 Neutrophils % 73.6 Lymphocytes % 14.0 Monocytes % 9.7 Eosinophils % 1.4 Basophils % 0.4 Nucleated RBC % 0 Absolute Neutrophils 4.11 Absolute Lymphocytes 0.78 L Absolute Monocytes 0.54 Absolute Eosinophils 0.08 Absolute Basophils 0.02 Sodium Potassium Chloride Carbon Dioxide Anion Gap BUN Creatinine Estimated GFR/1.73 m2 Glucose Calcium C-Reactive Protein 4.96 H Vancomycin Trough 29.5 H* 07/25/21 06:10 WBC RBC Hgb Hct MCV MCH MCHC RDW Plt Count MPV Immature Gran % Neutrophils % Lymphocytes % Monocytes % Eosinophils % Basophils % Nucleated RBC % Absolute Neutrophils Absolute Lymphocytes Absolute Monocytes Absolute Eosinophils Absolute Basophils Sodium 137 Potassium 4.1 Chloride 104 Carbon Dioxide 24.6 Anion Gap 8.4 BUN 26 H D Creatinine 0.8 Estimated GFR/1.73 m2 >= 60.00 Glucose 93 Calcium 8.4 L C-Reactive Protein Vancomycin Trough Imaging Imaging Studies: X-ray of the right hand demonstrate significant destructive changes about the middle finger. There is involucrum throughout the entirety of the proximal phalanx of the right middle finger with erosion of the base of the middle phalanx and the head of the proximal phalanx and chronic ulnar dislocation of the middle phalanx at the PIP joint.
[2021-07-25] MEDS: Gabapentin 300 MG CAP 600 MG PO (19:20)
[2021-07-25 19:45] VITALS: BP 114/76; PULSE 63; RESP 15; TEMP 36.9; O2SAT 93
[2021-07-25] MEDS: Enoxaparin 40 MG/0.4 ML SYR SC (21:13)
[2021-07-26] VITALS (15 sets, daily range): BP systolic 93–145; BP diastolic 60–100; PULSE 57–87; RESP 12–21; TEMP 36–36.9; O2SAT 95–100; BMI 20.6
[2021-07-26] MEDS: Lactated Ringers 1,000 ML 50 ML IV ×2 (00:46→16:05)
[2021-07-26] MEDS: Cyclobenzaprine 10 MG TAB PO ×2 (01:06→21:39)
[2021-07-26] MEDS: Ibuprofen 800 MG TAB PO (01:07)
[2021-07-26] MEDS: Acetaminophen 325 MG TAB 650 MG PO ×2 (01:07→18:35)
[2021-07-26 06:28] LABS: Abs Immature Grans 0.04 10^3/uL (0.0-0.06); Absolute Basophil Count 0.02 10^3/uL (0.0-0.2); Absolute Eosinophil Count 0.08 10^3/uL (0.0-0.7); Absolute Lymphocyte Count 0.91 10^3/uL (1.2-3.4); Absolute Monocyte Count 0.42 10^3/uL (0.1-0.8); Absolute Neutrophil Count 3.42 10^3/uL (1.2-6.7); Basophils % 0.4; Eosinophils % 1.6; HCT 29.7 % (36.0-46.0); Immature Grans % 0.8; Lymphocytes % 18.6; MCH 25.3 pg (27.0-33.0); MCHC 30.3 % (32.0-36.0); MCV 83.4 fL (80-95); MPV 10.2 fL (8.0-11.0); Monocytes % 8.6; Nucleated RBC 0 %; Platelet Count 304 10^3/uL (130-400); RBC 3.56 10^6/uL (3.93-5.22); RDW-SD 42.8 fL; WBC 4.89 10^3/uL (4.4-10.8)
[2021-07-26 06:53] LABS: Anion Gap 8.2 mmol/L (3-11); BUN 31 mg/dL (7-18); CO2 25.8 mmol/L (21.0-32.0); CREATININE 0.9 mg/dL (0.55-1.02); Calcium 8.7 mg/dL (8.5-10.1); Chloride 103 mmol/L (98-107); Glucose 97 mg/dL (74-106); Potassium 3.9 mmol/L (3.5-5.1); Sodium 137 mmol/L (136-145)
[2021-07-26] MEDS: Buprenorphine/Naloxone 2 mg/0.5 mg FILM 3 EACH SL (08:04)
[2021-07-26] MEDS: Gabapentin 300 MG CAP 600 MG PO ×2 (08:04→20:04)
--- NOTE | 2021-07-26 09:10 | W.PM.PROGNOT ---
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 I reviewed the case once again last night and discussed it with a colleague who is a primary hand surgeon. Unfortunately, there are really no good options. I once again reviewed our treatment plan with Tiffany. She does want to try to keep the finger but also does not want a waste time was to get home soon as poss. Given the findings on the clinical evaluation and the radiographs I would suspect that there is no decent tissue to utilize. My plan would include an aggressive irrigation debridement of the PIP joint and the proximal phalanx middle phalanx. If the extensor tendon is viable and the bone is not is destroyed as apparent on the radiographs and the PIP joint is reducible, then we could consider keeping the finger and treating it with antibiotics. I would likely place a pen to hold the finger in position while the soft tissues heal. However, if the tissue is really quite poor with erosive changes throughout the entirety of the finger it is unlikely that any function of the finger would be very meaningful even if infection is eradicated. I reviewed this with Tiffany and she agrees that she would prefer an amputation in this situation. I did discuss a secondary procedure carotid transposition which could be performed by hand surgeon at a later date to help improve function and decrease the gapping as I would have to do disarticulate the MP joint. I once again discussed the surgery with her. I also will evaluate the wound of her carpal tunnel in this right hand to remove any embedded sutures. I discussed the options once again and all of her questions were answered. We will proceed with initial irrigation debridement and if tissue is not viable, proceed to an amputation of the right middle finger. I reviewed the risk of the procedure to include continued infection, hand dysfunction, skin healing difficulties, need for any procedures, stiffness, pain, damage to nerves and vessels, damage to muscles and tendons. Despite these risks, she elects to proceed. Subjective Subjective Interval history since last seen: Lindsay reports no acute changes. No fevers no chills. No new symptoms. She continues have some pain about the right middle finger and some mild drainage. Objective Last Vital Signs Temp 36.0 C L 07/26/21 07:13 Pulse 80 07/26/21 07:13 Resp 17 07/26/21 07:13 BP 121/79 07/26/21 07:13 Pulse Ox 99 07/26/21 07:13 Laboratory Results - last 24 hr 07/26/21 07/26/21 06:09 06:09 WBC 4.89 RBC 3.56 L Hgb 9.0 L Hct 29.7 L MCV 83.4 MCH 25.3 L MCHC 30.3 L RDW 14.0 Plt Count 304 MPV 10.2 Immature Gran % 0.8 Neutrophils % 70.0 Lymphocytes % 18.6 Monocytes % 8.6 Eosinophils % 1.6 Basophils % 0.4 Nucleated RBC % 0 Absolute Neutrophils 3.42 Absolute Lymphocytes 0.91 L Absolute Monocytes 0.42 Absolute Eosinophils 0.08 Absolute Basophils 0.02 Sodium 137 Potassium 3.9 Chloride 103 Carbon Dioxide 25.8 Anion Gap 8.2 BUN 31 H Creatinine 0.9 Estimated GFR/1.73 m2 >= 60.00 Glucose 97 Calcium 8.7 PAWSS Have you Been Recently Intoxicated or Drunk Within the Last 30 days?: No Have you Ever Experienced Previous Episodes of Alcohol Withdrawal?: No Have you ever Experienced Withdrawal Seizures?: No Have you ever Experienced Delirium Tremens(DT)s?: No Have you ever undergone Alcohol Rehabilitation Treatment (i.e, inpt ot outpatient treatment programs)?: No Have you ever Experienced Blackouts?: No Have you ever Combined Alcohol with other Downers within the last 90 days?: No Have you ever Combined Alcohol with any other Substance of Abuse during the last 90 days?: No Positive Blood Alcohol level on Presentation? [PCS.BAL]: No Evidence of Increased Autonomic Activity (i.e. HR>120, tremor, sweating, agitation, nausea)?: No Result: 0
[2021-07-26] MEDS: levoFLOXacin 500 MG, levoFLOXacin 250 MG 750 MG PO (09:43)
--- NOTE | 2021-07-26 10:52 | CMPROGNOTE_ITS ---
- If Service Date Differs Date of service: 07/26/21 Time of Service: 10:52 Care Management Progress Note S/O: Lindsay was sitting on the side of her bed when CM met with her. She had just returned from having surgery which involved amputation of her right middle finger as well as debridement of her right index finger as well as her right wrist. She also had a nerve block . Lindsay stated that the finger still hurts but is somewhat better. She informed CM that the plan is for her to switch to oral antibiotics tomorrow and be discharged home. CM will provide last dose letter for LILIKATJA. A: 40 year old female admitted to [facility] 07/23/21 with Osteomyelitis R 3rd finger, cellulitis P: Lindsay informed CM that the current plan is for her to remain in the hospital overnight and discharge home tomorrow on oral antibiotics. She had surgery with amputation of her right middle finger as well as debridement of her right wrist and index finger. CM will continue to follow and support Lindsay during hospitalization and assess for additional discharge concerns..
--- NOTE | 2021-07-26 12:10 | ANES.PREOP_ITS ---
General Info Date of Service Date Performed: 07/26/21 Height: 5 ft 4 in Weight: 54.6 kg Body Mass Index (BMI): 20.6 Surgical Procedure: Operation Date: 07/26/21 16:25 Proposed Procedure Side Surgeon p I&D of RT Middle Finger Right Grzegorz Hanna MD Meds Allergies and Home Medications Allergies Allergy/AdvReac Type Severity Reaction Status Date / Time No Known Allergies Allergy Verified 07/23/21 20:13 Home Medication Medication Instructions Recorded buprenorphine 2 mg-naloxone 0.5 mg See Rx Instructions BC DAILY 04/07/20 sublingual film multivitamin (Daily Multi-Vitamin) 1 tab PO DAILY 07/05/20 norethindrone (contraceptive) 0.35 0.35 mg PO DAILY #84 tab 07/05/20 mg tablet cyclobenzaprine 10 mg tablet 10 mg PO HS PRN #30 tab 01/27/21 ibuprofen 800 mg tablet 800 mg PO TID PRN #90 tab 02/10/21 gabapentin 300 mg capsule 300 mg PO BID #60 cap 03/30/21 ferrous fumarate 324 mg (106 mg 324 mg PO BID 05/09/21 iron) tablet Current Visit Medications: Current Medications Generic Name Dose Route Start Last Admin Trade Name Freq PRN Reason Stop Dose Admin Acetaminophen 650 mg 07/23/21 19:21 07/26/21 01:07 Acetaminophen 325 Mg Tab PO 650 mg Q4H PRN PRN Administration Al Hydrox/Mg Hydrox/Simethicone 30 ml 07/23/21 19:21 Mylanta Suspension 30 Ml Cup PO Q2H PRN PRN Buprenorphine/Naloxone 3 each 07/24/21 08:30 07/26/21 08:04 Buprenorphine/Naloxone 2 Mg/0.5 Mg Film SL 3 each DAILY JOLEEN Administration Cyclobenzaprine HCl 10 mg 07/24/21 12:30 07/26/21 01:06 Cyclobenzaprine 10 Mg Tab PO 10 mg HS PRN PRN Administration muscle spasm Dimethicone/Zinc Oxide 0 gm 07/23/21 19:21 Deysi Protect Cream 142 Gm Tube TP PRN PRN Docusate Sodium 100 mg 07/23/21 19:21 Docusate Sodium 100 Mg Cap PO TID PRN PRN Enoxaparin Sodium 40 mg 07/23/21 20:00 07/25/21 21:13 Enoxaparin 40 Mg/0.4 Ml Syr SC 40 mg Q24H JOLEEN Administration Ferrous Sulfate 325 mg 07/24/21 08:30 07/26/21 08:47 Ferrous Sulfate 325 Mg Tab PO Not Given BID [facility] Gabapentin 600 mg 07/25/21 20:00 07/26/21 08:04 Gabapentin 300 Mg Cap PO 600 mg BID JOLEEN Administration Gabapentin 300 mg 07/25/21 22:00 07/25/21 21:13 Gabapentin 300 Mg Cap PO 300 mg HS JOLEEN Administration Ringer's Solution 1,000 mls @ 50 mls/hr 07/26/21 00:00 07/26/21 00:46 IV 50 mls/hr INFUSION [facility] Administration IV Miscellaneous Supplies 1 each 07/23/21 15:00 Iv Access IV DIRECTED [facility] Ibuprofen 800 mg 07/24/21 12:45 07/26/21 01:07 Ibuprofen 800 Mg Tab PO 800 mg TID PRN PRN Administration pain Levofloxacin 500 mg/ 750 mg 07/25/21 13:50 07/26/21 09:43 Levofloxacin 250 mg PO 750 mg DAILY@1000 [facility] Administration Magnesium Hydroxide 30 ml 07/23/21 19:21 Milk Of Magnesia 30 Ml Cup PO DAILY PRN PRN Multivitamins 1 tab 07/24/21 08:30 07/26/21 08:47 Multivitamin Tab PO Not Given DAILY [facility] Norethindone 0.35mg 0 each 07/24/21 08:30 07/26/21 08:48 Tab PO Not Given DAILY [facility] Polyethylene Glycol 17 gm 07/23/21 19:21 Polyethylene Glycol 3350 17 Gm Packet PO DAILY PRN PRN Constipation Sodium Chloride 0 ml 07/23/21 14:52 07/25/21 19:21 Normal Saline Flush 10 Ml Syr IVP 10 ml PRN PRN Administration PFSH Active Problems Active Problems: Problem Status Onset Code DVT prophylaxis Z29.9 Open wound of finger of right hand S61.209A Osteomyelitis of finger of right hand M86.9 Cellulitis of finger of right hand L03.011 Leg wound, right S81.801A Cellulitis of toe of left foot L03.032 Abnormal finding on imaging R93.89 Abnormal MRI R93.89 Dysuria R30.0 Chronic ulcer of great 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 No viral load. Hx of opioid abuse Currently in treatment at [facility]. Suboxone. Raynaud disease Surgical History Surgical History Complete below knee amputation of right lower extremity 2018. 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 [facility]. 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 H/O hand surgery contracted post-op History of transesophageal echocardiography (YG) negative Retained foreign body L groin, s/p unsuccessful exploratory surgery Tobacco Smoking/Tobacco Use Status: Never Alcohol Alcohol Intake: former Substance Use Substance use: Current Sobriety Substance use type: former substance user, crack/cocaine, heroin and methamphetamine Details: former cocaine (snorted, smoked, IV) and heroin use (IV), as well as crystal meth (IV). Patient is currently enrolled at [facility], on suboxone Vital Signs and Lab Results Vital Signs Most Recent Vital Signs in EMR: Most Recent Vital Signs Temp Pulse Resp BP Pulse Ox 36.1 C L 57 L 16 109/71 97 07/26/21 11:37 07/26/21 11:37 07/26/21 11:37 07/26/21 11:37 07/26/21 11:37 Point of Care Results Point of Care Results: POC- Test(urine) Negative 07/23/21 15:24 Lab Results Result Diagrams: 07/26/21 06:09 07/26/21 06:09 Blood Type / Crossmatch: No Data to Display Complete Blood Count: White Blood Count 4.89 10^3/uL (4.4-10.8) 07/26/21 06:09 07/26/21 Red Blood Count 3.56 10^6/uL (3.93-5.22) L 07/26/21 06:09 07/26/21 Hemoglobin 9.0 g/dL (11.2-15.7) L 07/26/21 06:09 07/26/21 Hematocrit 29.7 % (36.0-46.0) L 07/26/21 06:09 07/26/21 Platelet Count 304 10^3/uL (130-400) 07/26/21 06:09 07/26/21 Venous Blood Lactate 0.7 mmol/L (0.6-1.4) 07/23/21 17:55 07/23/21 Complete Metabolic Panel: Sodium Level 137 mmol/L (136-145) 07/26/21 06:09 07/26/21 Potassium Level 3.9 mmol/L (3.5-5.1) 07/26/21 06:09 07/26/21 Chloride Level 103 mmol/L (98-107) 07/26/21 06:09 07/26/21 Carbon Dioxide Level 25.8 mmol/L (21.0-32.0) 07/26/21 06:09 07/26/21 Blood Urea Nitrogen 31 mg/dL (7-18) H 07/26/21 06:09 07/26/21 Creatinine 0.9 mg/dL (0.55-1.02) 07/26/21 06:09 07/26/21 Estimated GFR/1.73 m2 >= 60.00 (mL/min/1.73m2) 07/26/21 06:09 07/26/21 Calcium Level 8.7 mg/dL (8.5-10.1) 07/26/21 06:09 07/26/21 Albumin 2.6 g/dL (3.4-5.0) L 07/24/21 07:10 07/24/21 Glucose Level 97 mg/dL (74-106) 07/26/21 06:09 07/26/21 C-Reactive Protein 4.96 mg/dL (0.0-0.3) H 07/25/21 06:10 07/25/21 Liver Function Panel: Alanine Aminotransferase (ALT/SGPT) 17 U/L (14-59) 07/24/21 07:10 07/24/21 Aspartate Amino Transf (AST/SGOT) 13 U/L (15-37) L 07/24/21 07:10 07/24/21 Coagulation Panel: No Data to Display Cardiac Panel: No Data to Display Arterial Blood Gas: No Data to Display Venous Blood Gas: No Data to Display Pancreas Panel: No Data to Display Thyroid Panel: No Data to Display Infectious Disease: Coronavirus (COVID-19)(PCR) Negative (Negative) 07/23/21 20:10 07/23/21 Coronavirus 2019 Source Nasal/Nares 07/23/21 20:10 07/23/21 Blood Cultures: No Data to Display Toxicology Panel: No Data to Display Panel: No Data to Display Imaging and Studies Imaging and Studies Study information below may be from another EMR and interpreted by another provider. Please see original notes in EMR for more complete details. Echocardiogram Summary: 10/2018: LVEF 60-65%, PAS 30-40mmhg Anesthesia Assessment and Plan Anesthesia History Personal History: No History of Anesthesia Complications Family History: No Family History of Anesthesia Complications Exercise Tolerance Exercise Tolerance: Metabolic Equivalents>4 Cardiac & Pulmonary Exam Cardiac Exam: Normal S1/S2 Heart Sounds Pulmonary Exam: Clear Bilateral Breath Sounds Implantable Cardiac Device Does patient have a Pacemaker or an ICD?: No Airway Exam Known Difficult Airway: No Mallampati Class: 2 Mouth Opening: Normal (> 3cm) Thyromental Distance: Greater than 3 cm Neck Range of Motion: Full ROM Neck Circumference: Normal Teeth Condition: Generalized Poor Dentition ASA Classification ASA Score: ASA 2 Emergency Case?: Yes NPO Status NPO Status: NPO Clears >2 hours, Solids >8 hours Status Status: Negative HCG Anesthesia Plan Resuscitation Status: Full Code Anesthesia Technique: General Anesthesia Airway Planned: LMA Pain Management: Other (Discussed that we will potential perform forearm blocks intraoperativly, if needed. ) Monitors Used: Standard Monitors Preoperative Comments:: 40 yo female for osteo of her finger. currently inpt getting levofloxacin. Sig PMHx: s/p BKA, previous IVDA, DVT, Hep c (treated), raynauds Previous Anes: no complications, airway note from [facility] unclear as to blade used states grade 1 with mac 3, but the note says alverto, easy mask.
--- NOTE | 2021-07-26 12:38 | W.ANESVAS ---
Midline Placement Date Performed: 07/23/21 Procedure Time: 17:30 Requesting Provider: Edith Barahona Procedure Location: Emergency Department Sedation Given (Indicate Dose Given): No Sedation given Patient Mental Status: Awake Sterility: Hand Hygiene, Surgical Cap, Surgical Mask, Sterile Gloves and Chlorhexidine Laterality: Left Insertion Site: Basilic Midline Device: PowerGlide Pro 20G Catheter Length: 10 cm Midline Procedure Procedure: 1% Lidocaine to skin and subcutaneous tissue with 25g needle, Vessel accessed with catheter over needle, Guidewire placed with ease, Catheter placed without resistance and Guidewire removed Dressing: Tegaderm Applied and Statlock Applied Blood Return: Present Flushes: Easily Ultrasound: Used to donal site Number of Attempts (See previous attempts in note section): 1 Procedure Tolerated: No Complications and Patient tolerated well Procedure Outcome: Successful Procedure Comment:: Patient seen in ER on Sunday and midline placed at ER request. Documentation not placed in error, finished at this time. Performed By: Abdirahman Aquino Other (not listed above): Patient seen in ER on Sunday and midline placed at ER request.
--- NOTE | 2021-07-26 13:51 | W.PM.PROGNOT ---
Date of Service Date of service: 07/26/21 Time of Service: 16:42 Assessment and Plan Assessment and plan (1) Osteomyelitis of finger of right hand: Status: Acute Assessment and plan: Blood C& S still negative She is evaluated by ortho. Dr. Hanna to take the patient to the OR todayt if tissue not viable or bone is spongy he will amputate finger; patient was agreeable with plan. Patient aware of plan; NPO from midnight WBC 4.89 Course of antibiotic to be decided by ortho. (2) Cellulitis of finger of right hand: Status: Acute Assessment and plan: Going to the OR today Right middle finger was amputated; dressing was applied. (3) Finger, open wounds, complicated: Assessment and plan: As above. (4) Leg wound, right: Status: Acute Assessment and plan: Abrasion right BKA stump over healed scar with early cellulitis, appears to be healing. Continue antibiotics as per ortho. (5) DVT prophylaxis: Status: Acute Assessment and plan: Lovenox held for surgery; Patient is ambulatory with probable discharge tomorrow. (6) Discharged to home: Status: Acute Assessment and plan: Discharge home with no needs Ortho will follow up with patient for dressing change as an outpatient. Subjective Subjective Patient reports: other Interval history since last seen: Patient is back from OR with surgical dressing. She reports no pain at this time and mentioned having had a nerve block in the OR. She reports that her old wrist sutures were taken out by ortho today along with the amputation of her right middle finger. Exam Narrative Exam Narrative: General: lying in bed, she is awake, alert oriented pleasant and talkative. Const General: cooperative HENMT Head: normal to inspection, normocephalic and atraumatic Eyes General: appearance normal, both eyes and all related structures Neck Neck: normal visual inspection and supple Chest Chest: normal inspection of the chest Resp Effort & Inspection: normal respiratory effort Auscultation: clear to auscultation bilaterally Cardio Jugular venous pressure: no JVD Rhythm: regular rhythm Heart Sounds: murmur (triscupid point) GI Inspection: normal to inspection Palpation: soft Auscultation: normal bowel sounds Other: non tender Other: Menstruation Back/Spine/Pelvis Back: no CVA tenderness Skin General skin exam: no rashes or lesions noted Neuro General: patient alert, patient oriented x3, moves all extremities (right BKA noted) and no focal motor deficits Cognition: normal cognition Speech: speech normal Extrem General: full ROM, no calf tenderness and amputation noted Below the knee: right Psych Appearance: grossly normal Mental Status: mental status grossly normal Speech and Movement: speech and movement normal Mood: congruent mood Affect: animated Attitude: cooperative Thought Process: normal Thought Content: normal Insight: insight good Objective Last Vital Signs Temp 97.0 F L 07/26/21 11:37 Pulse 57 L 07/26/21 11:37 Resp 16 07/26/21 11:37 BP 109/71 07/26/21 11:37 Pulse Ox 97 07/26/21 11:37 Laboratory Results - last 24 hr 07/26/21 07/26/21 06:09 06:09 WBC 4.89 RBC 3.56 L Hgb 9.0 L Hct 29.7 L MCV 83.4 MCH 25.3 L MCHC 30.3 L RDW 14.0 Plt Count 304 MPV 10.2 Immature Gran % 0.8 Neutrophils % 70.0 Lymphocytes % 18.6 Monocytes % 8.6 Eosinophils % 1.6 Basophils % 0.4 Nucleated RBC % 0 Absolute Neutrophils 3.42 Absolute Lymphocytes 0.91 L Absolute Monocytes 0.42 Absolute Eosinophils 0.08 Absolute Basophils 0.02 Sodium 137 Potassium 3.9 Chloride 103 Carbon Dioxide 25.8 Anion Gap 8.2 BUN 31 H Creatinine 0.9 Estimated GFR/1.73 m2 >= 60.00 Glucose 97 Calcium 8.7 PAWSS Have you Been Recently Intoxicated or Drunk Within the Last 30 days?: No Have you Ever Experienced Previous Episodes of Alcohol Withdrawal?: No Have you ever Experienced Withdrawal Seizures?: No Have you ever Experienced Delirium Tremens(DT)s?: No Have you ever undergone Alcohol Rehabilitation Treatment (i.e, inpt ot outpatient treatment programs)?: No Have you ever Experienced Blackouts?: No Have you ever Combined Alcohol with other Downers within the last 90 days?: No Have you ever Combined Alcohol with any other Substance of Abuse during the last 90 days?: No Positive Blood Alcohol level on Presentation? [PCS.BAL]: No Evidence of Increased Autonomic Activity (i.e. HR>120, tremor, sweating, agitation, nausea)?: No Result: 0
[2021-07-26] MEDS: Lidocaine 1% Multi-Dose 50 ML VIAL (14:29)
[2021-07-26] MEDS: Bupivacaine 0.25% Pres-Free 30 ML VIAL (14:29)
--- NOTE | 2021-07-26 14:32 | AMP_PTH ---
PATIENT: Lindsay Odonnell LOC: U#:[id number] AGE/SX: 40/F ROOM: RE07/23/[address]: Abdirahman Molina : 1980 BED: A DIS: 07/27/2021 SPEC #: [id number] RECD: 07/26/21 17:34 STATUS: SULEMAN REQ #: [id number] VERNON: 07/26/21 14:[address]: Grzegorz Hanna DEPT: Surgical Specimen RECD BY: Rakel Tejada ENTERED: 07/26/21 17:35 SP TYPE: Amputation OTHR DR: Abdirahman Molina, DO Georgette Reza APRN Tissues: 1 - AMPUTATION FINGERS/TOES(NOT TRAUMA) Procedures: GROSS AND MICRO LEVEL 4 DECALCIFICATION Comments: [id number]
[2021-07-26] MEDS: LORazepam 2 MG/ML VIAL 0.5 MG IVP (15:15)
--- NOTE | 2021-07-26 15:46 | W.ANESNERVE ---
Nerve Block Single Injection Procedure Date and Time Date Performed: 07/26/21 Procedure Start: 15:35 Location Where Procedure Performed Procedure Location: PACU Reason Performed: Postoperative Analgesia Requesting Provider: Grzegorz Hanna Timeout Performed Timeout Performed: Yes Monitoring Used ECG, Blood Pressure and SpO2 Sterility Sterility: Hand Hygiene, Surgical Cap, Surgical Mask, Sterile Gloves and Chlorhexidine Sedation Given During Procedure Sedation Given (Indicate Dose Given): No Sedation given Patient Mental Status Patient Mental Status: Sedate with meaningful communication Nerve Block 1st Nerve Block: Laterality: Right Block Type: Axillary Needle / Catheter Used: 80mm SonoPlex II Local Anesthetic Bolus (Indicate Dose Given): Lidocaine used for local infiltration of skin, Injected in 3-5ml increments after negative blood aspiration and Bupivacaine 0.375% Dose:: 18 mL Additives (Indicate Dose Given): None Ultrasound: Sterile probe cover and gel used Ultrasound Image Saved?: Yes Nerve Stimulator: Not Used Paresthesia: None Procedure Tolerated: No Complications and Patient tolerated well Procedure Outcome: Successful Procedure Comment: On waking in PACU pt yelling in pain, lorazapam ordered with some effect. Asked for nerve block. We re-discusted the risks of the block that we discussed during the consent. An ax block was performed. Performed By: Tom Mcnamara
--- NOTE | 2021-07-26 16:20 | W.ANESPOSTOP ---
Postoperative Evaluation Date, Time and Location Date Performed: 07/26/21 Time Performed: 16:10 Patient Location: PACU Vital Signs Most Recent Imported Vital Signs: Most Recent Vital Signs Temp Pulse Resp BP Pulse Ox 36.5 C 72 12 99/71 L 96 07/26/21 16:00 07/26/21 16:00 07/26/21 16:00 07/26/21 16:00 07/26/21 16:00 Pain Score Most Recent Pain Score: Most Recent Pain Score Pain Level 4 07/26/21 16:00 Assessment Mental Status: Arousable with meaningful communication Airway and Respiratory Function: Patent airway with normal (patient baseline) respiratory exam Cardiovascular Function: Hemodynamically Stable Hydration Status: Adequately Hydrated Nausea & Vomiting: No Nausea or Vomiting Pain: Pain is tolerable per patient Peripheral Nerve Block: Regional nerve block not resolved at time of post operative discharge
[2021-07-26] MEDS: Normal Saline Flush 10 ML SYR IVP ×2 (17:03→20:04)
[2021-07-26] MEDS: ceFAZolin 1 GM/50 ML BAG IVPB (17:04)
--- NOTE | 2021-07-26 17:27 | W.PM.OP ---
Date of service: 07/26/21 Time of Service: 15:00 Operative Note Operative Note DATE OF PROCEDURE: 07/26/21 PRE-OP DIAGNOSIS: Chronic Infection of Right Middle Finger with Osteomyelitis, Right Index Finger Ulceration, Thickened eschar and retained sutures from right carpal tunnel surgery PROCEDURE: Right middle finger amputation?metacarpophalangeal disarticulation, right index finger ulcer debridement, right wrist eschar debridement with removal of retained sutures. SURGEON: Grzegorz Hanna BATH STEWARD/STEWARDESS: Evelyn Olguin ANESTHESIA TYPE: General LMA/ETT Refer to Anesthesia Record ESTIMATED BLOOD LOSS: 10 PATHOLOGY: other (The right middle finger was sent to pathology, bone samples and fluid was also sent to the lab for microbiology studies) TOURNIQUET TIME: 0 COMPLICATIONS: None Patient was transported to: PACU Patient's condition: stable Indications: Lindsay is a 40-year-old who has a chronic infection of the right middle finger with exposed bone, nonhealing wound, and chronic osteomyelitis of the proximal phalanx with erosion of the base of the middle phalanx and head of the proximal phalanx. Additionally she has ulceration about the right index finger and a thickened and unhealthy eschar about the right wrist from a previous carpal tunnel surgery back in April. Given the persistence of the infection and the x-ray findings and her clinical picture I recommended proceedingto the operating room for intervention. I discussed with her the treatment options of the right middle finger. Given the chronic osteomyelitis of the proximal phalanx and the erosion of the PIP joint with exposed bone dorsally without active extensor tissue function, amputation was likely the best option. However, I discussed with her at length that I would perform an aggressive irrigation debridement fully evaluate the PIP joint before proceeding to the potation. Additionally, I would debride the ulcer of the right finger and the wound of the right wrist. I reviewed all this with her. All of her questions were answered. I reviewed the risk to include persistent infection, need for repeat procedures, damage to nerves and vessels, damage to muscles and tendons, pain, stiffness, hand dysfunction. Despite these risk, she elects to proceed. Findings: There is a grossly infected PIP joint about the right middle finger. The bone of the proximal phalanx was quite soft and had no integrity to it. With any pressure it disintegrated. There is also erosion at the base of the middle phalanx. There is no dorsal extensor tendon appreciable. A lateral band of the ulnar side was explored and was intact however there was no other extensor mechanism identified. The soft tissue was completely stripped off the proximal phalanx all the way down to the capsule of the MP joint with generally unhealthy tissue and cloudy fluid present. Therefore, MP disarticulation was performed. Thickened eschar was removed from the volar wrist with 2 sutures removed from within. This thickened tissue had prevented some healing deeply. The ulceration of the right index finger is also debrided around its edges. Procedure Description: Lindsay was greeted in the preoperative holding area. Her identity was confirmed the correct site was identified and marked. The consent was reviewed with the patient and signed. She was taken back to the operating room placed in supine position. All bony prominences well-padded. A general anesthetic was administered. The right hip space on the hand table. The right hand and forearm was prepped with Betadine and draped in a standard fashion. Prophylactic anabiotic's were previously administered on the floor. A timeout was performed for safe surgery. Starting with the volar wrist, I debrided the thickened eschar from the volar wrist wound. This exposed thickened keratinized eschar which was removed down to healthy dermis. There was some granulation tissue underneath which was exposed and the edges were freshened. 2 retained sutures were also removed. Attention was then turned to the right index finger. There is a ulceration seen over the radial tip of the index finger. Once again, there is thickened skin edges around this including and up to the edge of the nail. I debrided these thickened skin edges such that there is healthy dermis and epidermis underneath. This did promote some mild bleeding at its edges. Finally, attention was turned to the right middle finger. Through the open wound about the PIP joint, I exposed the end of the proximal phalanx easily. It was resting underneath the wound within millimeters of the skin edge. With any pressure on the proximal phalanx the bone was quite soft disintegrated. I used a rongeur to remove a portion of this proximal phalanx and there was very little resistance. There is no bleeding from the bone. In general, there is necrotic and unhealthy appearing tissue. No significant purulence in this area. The bone sample sent to the lab for microbiology and I also took swabs of the fluid in this region for microbiology studies. I continue to debride any unhealthy tissue. This included the base of the middle phalanx which also was quite soft. I then further inspected the wound after an aggressive irrigation. I was able to identify a lateral band on the ulnar side of the PIP joint but I was unable to see any central extensor tendon nor any lateral band over the radial side. The entirety of the proximal phalanx was stripped of any soft tissue attachments except at the level of the MP joint. Once again appeared quite unhealthy and was very soft. Therefore, this information I decided to proceed with amputation. This was per our discussion preoperatively. Skin flaps were identified on the skin edge before cutting. I then used a knife to incise the skin. Bovie electrocautery was then utilized to cut deeply down to the bone and then elevate subperiosteally down to the MP joint. I released the collateral ligaments of the MP joint and a disarticulation through the metacarpophalangeal joint was performed of the middle finger. This was sent to pathology. The digital arteries were identified and they were cauterized/there is no active bleeding. The nerve was sharply cut and left in the deep soft tissues. Skin edges were inspected and they did not show any signs of significant necrosis nor any active bleeding. I then irrigated normal saline through the wound aggressively. A debridement was also performed of any soft tissue which appeared to be unhealthy. There is abundant bleeding from the skin edges. The metacarpal head appeared to be quite healthy. Therefore, close this wound covering the metacarpal head with deep tissue using a #2-0 PDS. The skin was closed with a series of 3-0 and 4-0 nylon's. The finger area was anesthetized with 0.5% bupivacaine. The wounds were cleaned. They were dressed with Xeroform, 4 x 4's, Kerlix. I then the case all counts are correct. Lindsay was transferred back to the PACU in stable condition.
[2021-07-26] MEDS: Ketorolac 15 MG/ML VIAL IVP (17:46)
[2021-07-26] MEDS: Bacitracin 1 PACKET TP (18:31)
[2021-07-26] MEDS: Ferrous Sulfate 325 MG TAB PO (20:04)
[2021-07-26] MEDS: Enoxaparin 40 MG/0.4 ML SYR SC (20:04)
[2021-07-26] MEDS: Gabapentin 300 MG CAP PO (21:37)
[2021-07-27] MEDS: ceFAZolin 1 GM/50 ML BAG IVPB ×3 (00:04→15:07)
[2021-07-27] MEDS: Normal Saline Flush 10 ML SYR IVP ×4 (00:04→15:07)
[2021-07-27] MEDS: Ketorolac 15 MG/ML VIAL IVP ×3 (00:04→11:46)
[2021-07-27 00:11] VITALS: BP 106/69; PULSE 84; RESP 19; TEMP 36.8; O2SAT 96
[2021-07-27 05:08] VITALS: BP 96/61; PULSE 76; RESP 19; TEMP 36.4; O2SAT 96
[2021-07-27 07:25] VITALS: BP 105/69; PULSE 78; RESP 17; TEMP 35.8; O2SAT 96
[2021-07-27] MEDS: Acetaminophen 325 MG TAB 650 MG PO (08:10)
[2021-07-27] MEDS: Ferrous Sulfate 325 MG TAB PO (08:10)
[2021-07-27] MEDS: Multivitamin TAB 1 TAB PO (08:10)
[2021-07-27] MEDS: Buprenorphine/Naloxone 2 mg/0.5 mg FILM 3 EACH SL (08:11)
[2021-07-27] MEDS: Gabapentin 300 MG CAP 600 MG PO (08:11)
--- NOTE | 2021-07-27 10:34 | W.NUTCONSULT ---
Date of service: 07/27/21 Time of Service: 10:34 Nutritional Consult ASSESSMENT: 40 year old female admitted with osteo to right hand, s/p surgical intervention. PMH: Hx of IV drug use. Weight loss of 20 lbs noted in last 3 months, BMI wnl at this time. Following regular meal plan with excellent intake. Significant weight loss in last 90 days puts Lindsay at nutritional risk for poor healing. Estimated Needs: [id number] kcal, 70-80 g protein, 45-55 g fat NUTRITIONAL DIAGNOSIS: moderate malnutrition in view of 15% weight loss in last 90 days INTERVENTION: Continue current meal plan Supplement with liquid protein 1 oz TID Vit C 500 BID 220 mg zinc sulfate x 14 days continue MVI check pre albumin at next blood draw MONITORING AND EVALUATION: weight, poi intake labs Time Spent in Nutritional Counseling and Treatment: 15
--- NOTE | 2021-07-27 11:19 | W.PM.DS.N ---
Date of service: 07/27/21 Time of Service: 11:19 DS: Diagnosis Discharge Diagnosis (1) Osteomyelitis of finger of right hand: Status: Acute (2) Cellulitis of finger of right hand: Status: Acute (3) Finger, open wounds, complicated: (4) Leg wound, right: Status: Acute Discharge Plan Disposition Patient Disposition: HOME Condition: Stable Discharge Details Reason For Visit: Osteomyelitis R 3rd finger,cellulitis,IVDU Admit Date/Time: 07/23/21 19:21 Admit Provider: Abdirahman Molina Attending Provider: Abdirahman Molina Primary Care Provider: Georgette Reza [facility] Hospital Course: This is a 40-year-old female patient who has a long history of IV drug use in the past who denies recent use and osteomyelitis having had amputation below the right knee in the 3 years ago for complications of infection now presenting with right third finger swelling and osteomyelitis by imaging.? She fell about 2 weeks ago injuring her right BKA stump with abrasion which now has some slight erythema and injuring her right third finger which was scraped over the dorsum of the PIP.? She was admitted for IV antibiotic therapy and orthopedic consultation. Per their consultation, she did have an infection about the carpal tunnel on the right hand back in March and which is concerning as related to that initial incident.? She has involucrum which is a chronic change from osteomyelitis where new bone is forming around infected bone.? Due to the extent of the underlying damage that was likely longstanding and no recent it was recommended for surgical intervention for open irrigation and debridement with likely amputation if indicated. she consented and best course of action was determined to be an amputation after they explored her finger yesterday. See full consult note an surgical note for details but she underwent amputation without any complications. She reports feeling much improved. dressings to be changed by orthopedics and she will follow up outpatient as scheduled, sooner if needed. she is being discharged with no services. pain is managed. discharge discussed with DR Ferro. Home Meds and New Rx's Prescriptions: New Acetaminophen [Tylenol] 650 mg PO Q4H PRN PRNQty: 0 0RF levofloxacin 750 mg tablet 750 mg PO DAILY Qty: 14 0RF Continued multivitamin [Daily Multi-Vitamin] Tablet 1 tab PO DAILY 0RF ibuprofen 800 mg tablet 800 mg PO TID PRN (Reason: pain) Qty: 90 2RF cyclobenzaprine 10 mg tablet 10 mg PO HS PRN (Reason: muscle spasm) Qty: 30 2RF buprenorphine-naloxone 2-0.5 mg film See Rx Instructions BC DAILY 0RF Rx Instructions: 6 mg buccal daily; place 1 strip/tab under (each) side of tongue ferrous fumarate 324 mg (106 mg iron) tablet 324 mg PO BID 0RF Changed gabapentin 300 mg capsule 600 mg PO TID Qty: 60 1RF No Action norethindrone (contraceptive) 0.35 mg tablet 0.35 mg PO DAILY Qty: 84 0RF Rx Instructions: start day 1 of menstrual cycle Discharge Instructions Instructions: Finger Amputation (ED) Additional Instructions: Hand Discharge Instructions: - Keep the hand elevated as much as possible. - The gauze dressing should stay in place for at least 3 days. After this, you may remove it or you can leave it in place until your follow-up as long as it is clean and dry. - You may remove the dressings after 3 days and get the hand and the wounds wet. It is imperative to keep the wounds clean and dry. The wound should stay covered with some light gauze. - Continue your antibiotics for 4 weeks. Follow-up with Dr. Hanna in 1 week. Stand Alone Forms: Nursing Discharge Form Referrals: Grzegorz Hanna MD [ [facility] STAFF PHYSICIAN] - 08/02/21 11:30 am Activity:: Activity as Tolerated Equipment/Supplies:: No Equipment Needed Diet:: As Tolerated Discharge Orders Discharge Orders: Discharge Order (Routine); Ordered 07/27/21 Ordered By: Nuvia Pruitt Discharge Data Discharge Date/Time-TO BE ENTERED AT DEPARTURE: 07/27/21 15:47 DS: Summary Time Spent with Patient providing and/or coordinating discharge services: Greater than 30 minutes Status at Discharge Functional status at discharge: independent ambulation Overall status at discharge: patient is progressing back to baseline Mental Status: mental status grossly normal Speech and Movement: speech and movement normal Mood: congruent mood Affect: normal affect Exam Const General: cooperative, comfortable, no acute distress, disheveled and ill appearing chronically Nutritional Appearance: average body habitus Orientation: alert, awake and oriented x3 HENMT Head: normal to inspection Chest Chest: normal inspection of the chest Resp Effort & Inspection: normal respiratory effort Cardio Rate: regular rate Rhythm: regular rhythm GI Inspection: normal to inspection Skin General skin exam: other (remaining fingers on right slightly swollen, good movement and sensation) Rashes: no rashes (surgical wound not visualized, dressing intact and clean) Neuro General: patient alert and patient awake Extrem General: amputation noted (right middle finger) Psych Mental Status: mental status grossly normal Speech and Movement: speech and movement normal Mood: congruent mood Affect: normal affect DS: Data Vitals/I&O Vitals and I&O: Vital Signs Temperature 35.8 C L 07/27/21 07:25 Temperature Source Tympanic 07/27/21 07:25 Pulse 78 07/27/21 07:25 Pulse Rhythm Regular 07/27/21 09:30 Respiratory Rate 17 07/27/21 07:25 Respiratory Effort Non-Labored 07/27/21 09:30 Respiratory Depth Normal 07/27/21 09:30 Respiratory Pattern Normal 07/27/21 09:30 Blood Pressure 105/69 07/27/21 07:25 Blood Pressure Mean 84 07/23/21 15:01 Blood Pressure Position Sitting 07/23/21 14:35 Pulse Oximetry 96 07/27/21 07:25 Oxygen Delivery Method Room Air 07/27/21 07:25 Oxygen Flow Rate 0 07/27/21 07:25 Pain Level 0 07/27/21 07:25 Intake & Output 07/26/21 07/26/21 07/27/21 11:59 23:59 11:59 Intake Total 7488.884 1967.666 / 1846.666 550 / 550 Output Total 200 / 200 Balance -190 / 7723.211 2137.666 / 1646.666 550 / 550 Weight 54.6 kg 54.6 kg 55.4 kg Intake: IV 7607.781 5503.666 / 1066.666 70 / 70 Oral 780 / 780 480 / 480 Output: Urine 200 / 200 Other: Urine Color Yellow Yellow Yellow Urine Appearance Cloudy Clear Clear Urine Odor Normal Normal Normal Comment unknown amount, pt stated she voided Independent to the bathroom. Emesis Description None Voiding Methods Toilet Toilet Toilet Data Completed and Pending Labs on day of discharge: 07/26/21 14:20 Hand - Right Surgical Culture - Pending 07/26/21 14:20 Hand - Right Surgical Culture - Pending 07/26/21 14:20 Hand - Right Anaerobic Culture - Pending 07/26/21 14:20 Hand - Right Anaerobic Culture - Pending Preliminary micro results at discharge 07/23/21 18:50 Blood Culture - Preliminary Blood NO GROWTH 72 HOURS 07/23/21 17:55 Blood Culture - Preliminary Blood NO GROWTH 72 HOURS 07/26/21 14:20 Surgical Culture - Pending Hand - Right 07/26/21 14:20 Surgical Culture - Pending Hand - Right 07/26/21 14:20 Anaerobic Culture - Pending Hand - Right 07/26/21 14:20 Anaerobic Culture - Pending Hand - Right PFSH All Active Problems (Updated 07/27/21 @ 11:34 by PHILIPPE HODGES) Tenosynovitis of finger (Acute) Discharged to home (Acute) DVT prophylaxis (Acute) Open wound of finger of right hand (Acute) Osteomyelitis of finger of right hand (Acute) Cellulitis of finger of right hand (Acute) Leg wound, right (Acute) Cellulitis of toe of left foot (Acute) Abnormal finding on imaging (Acute) Abnormal MRI (Acute) Dysuria (Acute) 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 Patient has appointment at [facility] in [place] for consideration of termination History of intravenous drug abuse (Acute) Cellulitis of left lower extremity (Acute) Poor intravenous access (Acute) Chronic infection as complication of amputation (Acute) Heart murmur (Acute) Hypotension (Chronic) Petechial rash (Acute) Acute on chronic anemia (Acute) Osteomyelitis of right lower extremity (Chronic) DVT, lower extremity, distal, acute (Acute) 10/24 2018 left lower extremity. Rx with Eliquis. Abnormal uterine bleeding (AUB) (Acute) On. Set 10/24/2018 heavy flow coinciding with initiation of Eliquis Normocytic hypochromic anemia (Acute) 10/26/2018 hemoglobin 8.2 MCV 83 Medical History Endometriosis Hx of hepatitis C AB +. No viral load. Hx of opioid abuse Currently in treatment at [facility]. Suboxone. Raynaud disease Surgical History Complete below knee amputation of right lower extremity 2018. 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 [facility]. 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 H/O hand surgery contracted post-op History of transesophageal echocardiography (YG) negative Retained foreign body L groin, s/p unsuccessful exploratory surgery Family History Father Diabetes Paternal Grandfather Diabetes Paternal Aunt Diabetes Maternal Grandmother Breast cancer Maternal Aunt Multiple sclerosis Social History Smoking/Tobacco Use Status: Never Smoking risk assessment performed?: Yes Alcohol Intake: former Drug use: Current Sobriety Substance use type: former substance user, crack/cocaine, heroin and methamphetamine Details: former cocaine (snorted, smoked, IV) and heroin use (IV), as well as crystal meth (IV). Patient is currently enrolled at [facility], on suboxone Household members: children and other Details: Patient resides at her sister's house with her daughter Housing: apartment Number of Children: 1 current occupation: Unemployed Sexually active: Yes Do you think of yourself as: straight/heterosexual Current gender identity: female Seatbelt use: always Do you feel safe at home: Yes Do you feel safe in your relationship?: Yes Additional Social history: Ambulates with crutches - 2 falls recently
--- NOTE | 2021-07-27 11:37 | CMDISCH_ITS ---
- If Service Date Differs Date of service: 07/27/21 Time of Service: 11:37 LACE Index Scoring Tool - Questions: Length of Stay (in days): 4 - 6 Acuity (Admit via E.D.?): Yes Comorbidities: Liver or Renal Disease E.D. Visits: 2 - Answers: Total Score: 14 Risk of Readmission: High Risk Care Management Discharge Reason for Hospitalization: Osteomyelitis R 3rd finger, cellulitis, IVDU Discharge Plan: Lindsay will be discharged home with no new services. She will follow up with her community providers and plan of care and transport with family. Patient/Family Education Needs: Review of discharge instructions, limitations, f ollow up plan, activity and discuss Ask me Three
--- NOTE | 2021-07-27 15:25 | W.PM.PROGNOT ---
Date of Service Date of service: 07/27/21 Time of Service: 11:00 Assessment and Plan Assessment and plan (1) Osteomyelitis of finger of right hand: Status: Acute (2) Open wound of finger of right hand: Status: Acute (3) Cellulitis of finger of right hand: Status: Acute Assessment and plan: Tiffany is a 40-year-old who is status post amputation of the right middle finger for chronic osteomyelitis with significant tissue destruction and necrosis. She is doing well. She is unsettled by the side of the hand and will take some time to get used to. It also will private branch exchange service adviser the next few weeks to months as the space contracts down some. The most important thing at this point is eradicate infection allowing this hand to heal. She still has a wound about the volar wrist and the index finger which will need to be addressed. These were freshened up and debrided at the time of the finger amputation. She has had good pain control at this point I think she can discharge to home with oral antibiotics which have good bone penetration. The majority of the infected tissue was removed with the amputation. I did redress the wound and would recommend that she leave this in place until I see her back in the office. If the dressings get wet the need to be changed. It is okay if the wound gets wet but she will need to do her own dressing changes as I would keep this covered at least for the next week. I will see her back in the office in a week for repeat evaluation. All of her questions were answered. Subjective Subjective Interval history since last seen: Lindsay reports be doing well. She has had good pain control. She has been able to use the right hand without significant limitations. She has not really looked at the hand very much and is nervous about its appearance. No other acute issues. No fever no chills. Minimal bloody drainage on the dressing. Exam Narrative Exam Narrative: Sitting up in the bed. No acute distress. Alert and orient x3. Evaluation of the right hand shows a dressing about the wrist and the middle finger from the amputation site. There is some mild amount of sanguinous discharge on the dressing. The dressings are removed. There is no active bleeding. Dressings are replaced about the middle finger amputation site as well as the volar wrist. No purulent discharge. Objective Last Vital Signs Temp 35.8 C L 07/27/21 07:25 Pulse 78 07/27/21 07:25 Resp 17 07/27/21 07:25 BP 105/69 07/27/21 07:25 Pulse Ox 96 07/27/21 07:25 PAWSS Have you Been Recently Intoxicated or Drunk Within the Last 30 days?: No Have you Ever Experienced Previous Episodes of Alcohol Withdrawal?: No Have you ever Experienced Withdrawal Seizures?: No Have you ever Experienced Delirium Tremens(DT)s?: No Have you ever undergone Alcohol Rehabilitation Treatment (i.e, inpt ot outpatient treatment programs)?: No Have you ever Experienced Blackouts?: No Have you ever Combined Alcohol with other Downers within the last 90 days?: No Have you ever Combined Alcohol with any other Substance of Abuse during the last 90 days?: No Positive Blood Alcohol level on Presentation? [PCS.BAL]: No Evidence of Increased Autonomic Activity (i.e. HR>120, tremor, sweating, agitation, nausea)?: No Result: 0
== END 2021-07-27 15:47 | disposition home or self-care (01) | DRG 580 ==
LOC: ER 19:34 → MS 20:58
PROVIDERS: Family Medicine; Nurse Practitioner; Nurse Practitioner Family; Student in an Organized Health Care Education/Training Program; Admitting Provider Family Medicine; Emergency Provider Physician Assistant; PCP Nurse Practitioner; Visit Provider Family Medicine
PROC: 0X6Q0Z0 Detachment at Right Middle Finger, Complete, Open Approach (ICD-10-PCS; CPT 97597; principal; 2021-07-26 16:15)
DX: L03.011 Cellulitis of right finger (principal); M86.8X4 Other osteomyelitis, hand; L03.115 Cellulitis of right lower limb; S61.200A Unspecified open wound of right index finger without damage to nail, initial encounter; L98.499 Non-pressure chronic ulcer of skin of other sites with unspecified severity; Z89.511 Acquired absence of right leg below knee; Z79.899 Other long term (current) drug therapy; R00.0 Tachycardia, unspecified; Z86.718 Personal history of other venous thrombosis and embolism; D50.9 Iron deficiency anemia, unspecified; F10.11 Alcohol abuse, in remission; I73.00 Raynaud's syndrome without gangrene; Z86.19 Personal history of other infectious and parasitic diseases; W19.XXXA Unspecified fall, initial encounter; T81.89XA Other complications of procedures, not elsewhere classified, initial encounter; S80.811A Abrasion, right lower leg, initial encounter
CPT/HCPCS: 97597; 26951; 76942; 80048; 80053; 81025; 87040; 87077; 87081; 87635; 88300; 88305; 96361; 96365; 96368; 99222; 99233; 99285; J1650; 73130; 73201; 73590; 80202; 83605; 85025; 86140; 87070; 87075; 87186; 87205; 88311; 99223; 99232; 99239; J0690; J1200; J1885; J2060; J3490

== ENCOUNTER 2021-09-14 10:04 | Outpatient (REF) | payer MEDICARE, MEDICAID, SELFPAY ==
[2021-09-15 15:30] LABS: Chlamydia Result Negative (Negative); GC Result Negative (Negative)
== END 2021-09-14 10:05 | disposition home or self-care (01) ==
LOC: LBN 10:04
PROVIDERS: PCP Nurse Practitioner; Visit Provider Obstetrics & Gynecology
DX: R10.2 Pelvic and perineal pain (principal)
CPT/HCPCS: 87491; 87591

== ENCOUNTER 2021-10-29 21:35 | Emergency (ER) | payer MEDICARE, MEDICAID, SELFPAY ==
--- NOTE | 2021-10-30 02:37 | NUR.NOTE ---
patient name entered in error.Nursing Note:
== END 2021-10-29 21:44 | disposition left before discharge ==
PROVIDERS: PCP Nurse Practitioner
DX: Z53.21 Procedure and treatment not carried out due to patient leaving prior to being seen by health care provider (principal)

== ENCOUNTER → 2021-12-15 10:19 | Outpatient (CLI) | payer MEDICARE, MEDICAID, SELFPAY ==
--- NOTE | 2021-12-15 08:45 | DI.RAD_ITS ---
Exam(s) XR HAND LT COMPLETE EXAM: XR HAND LT COMPLETE CLINICAL HISTORY: Hand swelling, skin ulcer, M79.89, L98.499, rule out osteo. TECHNIQUE: 2D digital imaging was performed. Three views. COMPARISON: CR XR PORTABLE CHEST AP POST LINE from 12/31/2018 CR,XR XR HAND RT COMPLETE from 07/23/2021 FINDINGS: BONES: No acute fracture is present. No bony destructive lesion is seen. JOINTS: No dislocation present. SOFT TISSUE: Swelling around the metacarpal region. A portion of a needle is noted in the distal for earm soft tissues at the dorsal aspect near the ulna. IMPRESSION: Soft tissue swelling. No visible bony erosions to suggest osteomyelitis. Needle in the soft tissues of the distal forearm. DATA REPOSITORY: RADIATION DOSE DELIVERED:
== END ==
PROVIDERS: PCP Nurse Practitioner; Visit Provider Nurse Practitioner
DX: W45.8XXA Other foreign body or object entering through skin, initial encounter
CPT/HCPCS: 73130

== ENCOUNTER → 2022-01-18 09:59 | Outpatient (BNVA) | payer MEDICARE, MEDICAID, SELFPAY | PROVIDERS: PCP Nurse Practitioner; Referring Provider Nurse Practitioner; Visit Provider Surgery | DX: M79.5 Residual foreign body in soft tissue (principal); W45.8XXD Other foreign body or object entering through skin, subsequent encounter; Z89.511 Acquired absence of right leg below knee | CPT/HCPCS: 99213 ==

== ENCOUNTER 2022-02-03 14:43 | Emergency (ER) | payer MEDICARE, MEDICAID, SELFPAY ==
[2022-02-03] VITALS (22 sets, daily range): BP systolic 88–97; BP diastolic 50–68; PULSE 91–102; RESP 7–49; TEMP 37.4; O2SAT 89–98
--- NOTE | 2022-02-03 15:54 | DI.CT_ITS ---
Exam(s) CT ABDOMEN PELVIS WO EXAM: CT ABDOMEN PELVIS WO INDICATION: L groin wound; abscess? fistulized vessel?. COMPARISON: No exams were available for comparison TECHNIQUE: FINDINGS: CT examination of the abdomen and pelvis was performed without contrast administration. Images obtained through the lung bases are unremarkable. The liver is unremarkable in appearance. Gallbladder and bile ducts are CT normal. Pancreas appears normal. Spleen is mildly enlarged. Adrenals appear normal. The kidneys are unremarkable with no evidence of hydronephrosis, nephrolithiasis, or renal mass.. Ur inary bladder unremarkable. Abdominal aorta is of normal diameter and no major vascular abnormality is seen. No abdominal wall hernia. No abdominal or pelvic adenopathy. SHOWER ATTENDANT structures appear intact. Appendix is normal. No evidence of diverticulitis or bowel obstruction. Note is made of vascular stent extending from internal iliac artery into the proximal right thigh. Note is made of a sclerotic changes of the vertebral bodies adjacent to the L4-5 intervertebral disc. There is irregular contour of the disc space. Findings are most likely degenerative but the possib ility of discitis is not excluded. I would also note that there are fused vertebral bodies of L 2 an d L3. No other gross bony erosive or destructive lesion seen. There is heterogeneous intermediate attenuation 5 cm in diameter poorly defined mass in the left ingu inal region with question of cysts central necrosis. This lies adjacent to femoral vessels. Finding s as described are nonspecific. There is adenopathy in this region and the findings may represent ab scess, hematoma, or pseudoaneurysm. Correlation with CT angiography should be considered. I would note that there appears to be lymphadenopathy in the left inguinal region, possibly reactive, and there is moderate fat edema in the left inguinal region as well which may also reflect acute inf lammatory process. IMPRESSION: No acute intra-abdominal pathology. Probable degenerative disc changes at L 4 5, but other etiologies including discitis are not excluded . Left inguinal findings raising the possibility of hematoma, abscess, or pseudoaneurysm. Please see a pato discussion. RADIATION DOSE DELIVERED: 605.72mGy.cm Total DLP 605.72mGy.cm Total DLP !Error CTDIvol RADIATION OPTIMIZATION: All CT scans at this facility use at least one of these dose optimization te chniques: automated exposure control; mA and/or kV adjustment per patient size (includes targeted exa ms where dose is matched to clinical indication); or iterative reconstruction.
--- OUTSIDE RECORDS SUMMARY | 2022-02-03 15:54 | XMS_ITS | Encounter Summary ---
:1980 Author Organization [facility] Address [facility] [place] [address] Care Team Providers Name Role Phone Princess Henley MD Primary Care Provider Encounter Details Date Type Department Care Team Description 02/03/2015 Orders Only Wound Care at [facility] n wound of [facility] UMBRELLA TIPPER toe with damage to [facility] nail, right, [facility] [address] cruz encounter [facility] (Primary Dx) [place] [address] [place] [id number] [phone] Social History Tobacco Use Types Packs/Day Years Used Date Never Smoker Smokeless Tobacco: Never Used Alcohol Use Standard Drinks/Week Comments No 0 (1 standard drink = 0.6 oz pure alcoho l) Sex Assigned at Date Recorded Not on file documented as of this encounter Plan of Treatment Not on filedocumented as of this encounter Results JORDYN, legs, multiple levels (02/09/2015 12:28 PM EDT) Component Value Ref Test Analysis Performed At [facility] Range Method Time Signature VB Text Department: Vascular Surgery Lab VASCUBASE Report Patient: [id number] (LINDSAY JEAN BAPTISTE) CPT: 86287 ICD10: S91.201D;L97.519;L97.529 Referring Physician: ROBERTA RASHID JR ?? Indications: Slow healing RIGHT great to e wound and LEFT medial ankle and LEFT dorsal foot wound, ? degree of lower extremity perfusion/PAD Diabetes mellitus: No ICD10 Diagnosis Code: S91.201D, L97.519, L97.529 Definitions: JORDYN = Ankle / Brachial Systolic Pressure Index, TBI = Toe / Brachial Systolic Pressure Index. All systolic pressures in this study are derived based on Doppler assessment of blood flow. Findings: Right ?Pressure (mm Hg) ?? JORDYN ??Waveform ?TBI ?? Brachial Artery ?116 ? Common Femoral Artery ?Triphasic ? Pop Fossa ?Triphasic ? Dorsalis Pedis (Ankle) Arter y ?134 ? 1.12 ??Triphasic ? Posterior Tibial (Ankle) Art swetha ??143 ? 1.19 ??Triphasic ? Great Toe ?106 ?0.88 ?? Left ? Pressure (mm Hg) ?? JORDYN ??Waveform ?TBI ?? Brachial Artery ?120 ? Common Femoral Artery ?Triphasic ? Pop Fossa ?Triphasic ? Dorsalis Pedis (Ankle) Arter y ?132 ? 1.10 ??Triphasic ? Posterior Tibial (Ankle) Art swetha ??139 ? 1.16 ??Triphasic ? Great Toe ?101 ?0.84 ?? Interpretation: RIGHT: No significant lower extremity arterial occlusive dis ease. Normal ankle/brachial pressure ratios, ankle Doppler waveforms and toe pressures. LEFT: No significant lower extremity arterial occlusive dise ase. Normal ankle/brachial pressure ratios, ankle Doppler waveforms and toe pressures. Comparison: ??No previous study in our vascular lab andreina toney for comparison. Electronically Signed by: DENIS STREET on 2015-02-11 10:35: 12 PM VB Text End of Report VASCUBASE Report Specimen (Source) Anatomical Collection Method Collection Time Re ceived Time Location / / Volume Laterality 02/09/2015 12:28 PM EDT Roberta Rashid Jr., MD VASCULAR ORDERABLES Performing Organization Address City/State/ZIP Code Phon e Number VASCUBASE documented in this encounter Visit Diagnoses Diagnosis Open wound of great toe with damage to n ail, right, subsequent encounter - Primary documented in this encounter Care Teams Journeyman Pipe Fitter Relationship Specialty Start Date End Date Princess Henley MD PCP - General 03/12/12 04/26/15 [address] [place] [phone] documented as of this encounter
--- OUTSIDE RECORDS SUMMARY | 2022-02-03 15:54 | XMS_ITS | Encounter Summary ---
:1980 Author Organization [facility] [address] Care Team Providers Name Role Phone Princess Henley MD Primary Care Provider Reason for Visit Reason Comments On Treatment Visit HBOT# 35 Encounter Details Date Type Department Care Team Description 02/05/2015 [facility] En[facility] Open wound of great toe with damage to nail, right, subsequent encounter; [place] [facility] [address] Social History Tobacco Use Types Packs/Day Years Used Date Never Smoker Smokeless Tobacco: Never Used Alcohol Use Standard Drinks/Week Comments No 0 (1 standard drink = 0.6 oz pure alcoho l) Sex Assigned at Date Recorded Not on file documented as of this encounter Last Filed Vital Signs Vital Sign Reading Time Taken Comments Blood Pressure 143/97 02/05/2015 12:06 PM EDT Pulse 56 02/05/2015 12:06 PM EDT Temperature 37.2 ??C (99 ??F) 02/05/2015 10:05 AM EDT Respiratory Rate 16 02/05/2015 10:05 AM EDT Oxygen Saturation - - Inhaled Oxygen Concentration - - Weight - - Height - - Body Mass Index - - documented in this encounter Medications at Time of Discharge Medication Sig Dispensed Refills Start Date End Date venlafaxine (EFFEXOR-XR) 1 01/21/2015 150 mg Capsule, Sust. Release 24 hr buprenorphine-nalOXone Place 1 Film under 0 01/20 (SUBOXONE) 8-2 mg Film the tongue daily. vitamin E (VITAMIN E) 400 Take 400 Units by 0 unit Capsule mouth daily. amLODIPine (NORVASC) 5 mg 0 10/01/2014 Tablet VITAMIN C 500 mg Tablet 0 10/01/2014 ferrous sulfate 325 mg (65 0 5 mg iron) Tablet multivitamin (THERAGRAN) 0 10/01/2014 Tablet norgestimate-ethinyl Take 1 tablet by 0 estradiol (ORTHO mouth daily. TRI-CYCLEN, 28,) 0.18/0.215/0.25 mg-35 mcg (28) tablet ibuprofen (ADVIL;MOTRIN) Take 1 tablet by 30 tablet 2 09/19 800 mg tablet mouth every 8 hours as needed. documented as of this encounter Progress Notes Carlee Bernard RN - 02/05/2015 10:29 AM EDT Patient Name: Lindsay Odonnell Patient Age: 34 y.o. Birthdate: 1980 Admit date: 02/05/2015 Attending Physician: No att. providers found INTERVAL HISTORY: Alert and oriented. Ambulating without difficulties. Patient denies any discomfort, changes, issues,complaints. Visual Change: denies SOB: denies Headaches: denies Cough: none Ear Pain: denies Chest Pain: denies Cold symptoms:denies Wound/Dressing: Catherine ferra blue and guaze to right toe. No change in erythema. Guaze wrap to right st wound with small amount of yellow/brown drainage showing through. Patient to change dressing today. Left knee wound continues to heal with decrease in erythema surrounding area. Pain Level: 0 (0-10 scale) * If greater than 5, document interventions. Lindsay Odonnell received hyperbaric oxygen treatment today for non-healing wound right great toedue to hypoxia secondary to Raynaud's Disease. 100% cotton clothing in place. Patient checked for non-approved chamber items. Tympanic membranes checked. No redness or perforation noted. Patient assessed and met criteria to proceed with hyperbaric treatment. Safety checklist completed with patient. Grounding strap applied and grounding verified, patient placed in chamber, communications checked. Carlee ARMENTA/Jemima Garcia RN,CHT administered the treatment and monitored the patient. HYPERBARIC TREATMENT: Number-35 Planned number of treatments-40 Compression Rate: 1.5psi/min Decompression Rate: 2.0 psi/min ALFREDO-2.4 Start Compression Reach Treatment Pressure - ALFREDO Air Break Start Air Break Completed Start Decompression Treatment Completed 1007 1021 1107 1117 1152 [facility]4 [facility] Clinical Practice Guideline for Hyperbaric Oxygen Therapy Prevent and manage for potential problems related to 1.Barotrauma, 2.oxygen toxicity, and 3.Pneumothorax. 4. Situational Problems Assessed: ALL (Barotrauma, Oxygen Toxicity, Pneumothorax, Situational) Problems Present: None, (Barotrauma, Oxygen Toxicity, Pneumothorax, Situational) No issues or complaints during or after treatment. Interventions: Per Clinical Practice Guidelines for Hyperbaric Oxygen Therapy through [facility]. No interventions required today. Patient alert and oriented. Ambulating with steady gait. Patient assessed and found appropriate to leave the Hyperbaric area at the conclusion of today???s session. Continue HBOT as planned. Next treatment scheduled for 02/08/15. documented in this encounter Plan of Treatment Not on filedocumented as of this encounter Visit Diagnoses Diagnosis Open wound of great toe with damage to n ail, right, subsequent encounter Raynaud's disease Raynaud's syndrome documented in this encounter Care Teams Data Deliverables Manager Relationship Specialty Start Date End Date Princess Henley MD PCP - General 03/12/12 04/26/[address] [place] [phone] documented as of this encounter
--- OUTSIDE RECORDS SUMMARY | 2022-02-03 15:54 | XMS_ITS | Encounter Summary ---
:1980 Author Organization [facility] [place] [address] Care Team Providers Name Role Phone Princess Henley MD Primary Care Provider Reason for Visit Reason Comments On Treatment Visit HBOT# 34 Encounter Details Date Type Department Care Team Description 02/04/2015 Hospital Encounter [facility] Open wound of great toe with damage to nail, right, subsequent encounter; Medicine at [facility] [place] [address] Social History Tobacco Use Types Packs/Day Years Used Date Never Smoker Smokeless Tobacco: Never Used Alcohol Use Standard Drinks/Week Comments No 0 (1 standard drink = 0.6 oz pure alcoho l) Sex Assigned at Date Recorded Not on file documented as of this encounter Last Filed Vital Signs Vital Sign Reading Time Taken Comments Blood Pressure 142/96 02/04/2015 11:53 AM EDT Pulse 64 02/04/2015 11:53 AM EDT Temperature 37 ??C (98.6 ??F) 02/04/2015 9:50 AM EDT Respiratory Rate 16 02/04/2015 9:50 AM EDT Oxygen Saturation - - Inhaled [...] encounter Progress Notes Carlee Bernard RN - 02/04/2015 11:20 AM EDT Patient Name: Lindsay Odonnell Patient Age: 34 y.o. Birthdate: 1980 Admit date: 02/04/2015 Attending Physician: No att. providers found INTERVAL HISTORY: Lindsay is alert, oriented, conversant. Ambulating with steady gait. Patient denies any discomfort, changes, issues, complaints. Guaze dressing to left lower calf is C/D/I. Hydrofera blue dressing to right great toe is C/D/I. Continued erythema of right great toe visible proximal to dressing has not increased. Left medial ankle wound appears nearly healed. Left knee abrasion appears smaller, noticeably less erythematous. Pain Level: 0 (0-10 scale) * If greater than 5, document interventions. Education: Informed of JORDYN's scheduled for 02/09/15 at 12:30 Lindsay Odonnell received hyperbaric oxygen treatment today for non-healing wound right great toedue to hypoxia, secondary to Raynaud's disease. 100% cotton clothing in place. Patient checked for non-approved chamber items. Tympanic membranes checked. No redness or perforation noted. Patient assessed and met criteria to proceed with hyperbaric treatment. Safety checklist completed with patient. Grounding strap applied and grounding verified, patient placed in chamber, communications checked. Carlee ARMENTA/Jemima Garcia RN,CHT administered the treatment and monitored the patient. HYPERBARIC TREATMENT: Number-34 Planned number of treatments-40 Compression Rate: 1.5psi/min Decompression Rate: 2.0 psi/min ALFREDO-2.4 Start Compression Reach Treatment Pressure - ALFREDO Air Break Start Air Break Completed Start Decompression Treatment Completed 0953 1002 1053 [phone] [facility] Chamber # 1 Clinical Practice Guideline for Hyperbaric Oxygen Therapy Prevent and manage for potential problems related to 1.Barotrauma, 2.oxygen toxicity, and 3.Pneumothorax. 4. Situational Problems Assessed: ALL (Barotrauma, Oxygen Toxicity, Pneumothorax, Situational) Problems Present: None, (Barotrauma, Oxygen Toxicity, Pneumothorax, Situational) No issues or complaints during or after treatment. Interventions: Per Clinical Practice Guidelines for Hyperbaric Oxygen Therapy through [facility]. No interventions required today. Patient alert and oriented. Ambulating with steady gait. Patient assessed and found appropriate to leave the Hyperbaric area at the conclusion of today???s session. Continue HBOT as planned. Next treatment scheduled for 02/05/15. documented in this encounter Plan of Treatment Not on filedocumented as of this encounter Visit Diagnoses Diagnosis Open wound of great toe with damage to n ail, right, subsequent encounter Raynaud's disease Raynaud's syndrome documented in this encounter Care Teams Delivery Helper Relationship Specialty Start Date End Date Princess Henley MD PCP - General 03/12/12 04/26/15 [address] [place] [phone] documented as of this encounter
--- OUTSIDE RECORDS SUMMARY | 2022-02-03 15:54 | XMS_ITS | Encounter Summary ---
:1980 Author Organization [facility] [place] [address] Care Team Providers Name Role Phone Princess Henley MD Primary Care Provider Reason for Visit Reason Comments On Treatment Visit HBOT #27 Encounter Details Date Type Department Care Team Description 01/22/2015 Hospital Encounter [facility] Open wound of great toe with damage to nail, right, subsequent encounter; Medicine at [facility] [place] [address] Social History Tobacco Use Types Packs/Day Years Used Date Never Smoker Smokeless Tobacco: Never Used Alcohol Use Standard Drinks/Week Comments No 0 (1 standard drink = 0.6 oz pure alcoho l) Sex Assigned at Date Recorded Not on file documented as of this encounter Last Filed Vital Signs Vital Sign Reading Time Taken Comments Blood Pressure 126/93 01/22/2015 11:53 AM EDT Pulse 51 01/22/2015 11:53 AM EDT Temperature 37.2 ??C (99 ??F) 01/22/2015 9:50 AM EDT Respiratory Rate - - Oxygen Saturation - - Inhaled Oxygen Concentration [...] tablet mouth every 8 hours as needed. SUBOXONE 8-2 mg Film 0 01/21/2015 10/0 09/2014 SUBOXONE 12-3 mg Film 0 11/27/201409/2014 SUBOXONE 2-0.5 mg Film 0 11/27/2014 sertraline (ZOLOFT) 100 mg 0 5 02/02/2015 Tablet documented as of this encounter Progress Notes Jemima Garcia RN - 01/22/2015 10:58 AM EDT Patient Name: Lindsay Odonnell Patient Age: 34 y.o. Birthdate: 1980 Admit date: 01/22/2015 Attending Physician: No att. providers found INTERVAL HISTORY: Ms. Odonnell is alert & oriented, ambulating without difficulty. She denies any new discomfort, changes, issues, complaints. Wound/Dressing: guaze dressings on right great toe, left foot and calf are D & I. Lindsay Odonnell received hyperbaric oxygen treatment today for non-healing wound of right great toe due to hypoxia secondary to Raynauds. 100% cotton clothing in place. Patient checked for non-approved chamber items. Tympanic membranes checked. No redness or perforation noted. Patient assessed and met criteria to proceed with hyperbaric treatment. Safety checklist completed with patient. Grounding strap applied and grounding verified, patient placed in chamber, communications checked. Carlee ARMENTA/Jemima Garcia RN,CHT administered the treatment and monitored the patient. HYPERBARIC TREATMENT: Number-27 Planned number of treatments-30 Compression Rate: 1.5psi/min Decompression Rate: 2.0 psi/min ALFREDO-2.4 Start Compression Reach Treatment Pressure - 2.4 ALFREDO Air Break Start Air Break Completed Start Decompression Treatment Completed 0953 1007 1053 1103 1130 1156 [facility] Chamber # 1 Clinical Practice Guideline for Hyperbaric Oxygen Therapy Prevent and manage for potential problems related to 1.Barotrauma, 2.oxygen toxicity, and 3.Pneumothorax. 4. Situational Problems Assessed: ALL (Barotrauma, Oxygen Toxicity, Pneumothorax, Situational) Problems Present: None, (Barotrauma, Oxygen Toxicity, Pneumothorax, Situational) No issues or complaints during or after treatment. Interventions: Per Clinical Practice Guidelines for Hyperbaric Oxygen Therapy through [facility]. No interventions required today. Patient alert and oriented. Ambulating with steady gait. Patient assessed and found appropriate to leave the Hyperbaric area at the conclusion of today???s session. Continue HBOT as planned. Next treatment scheduled for Sunday, . Referrals have been placed to dermatology and vascular lab for JORDYN, waiting for these to be scheduled. documented in this encounter Plan of Treatment Not on filedocumented as of this encounter Visit Diagnoses Diagnosis Open wound of great toe with damage to n ail, right, subsequent encounter Raynaud's disease Raynaud's syndrome documented in this encounter Care Teams Associate Director Regulatory Affairs Relationship Specialty Start Date End Date Princess Henley MD PCP - General 03/12/12 04/26/[address] [place] [phone] documented as of this encounter
--- OUTSIDE RECORDS SUMMARY | 2022-02-03 15:54 | XMS_ITS | Encounter Summary ---
:1980 Author Organization [facility] Address [facility] [place] [address] Care Team Providers Name Role Phone Princess Henley MD Primary Care Provider Reason for Visit Reason Comments On Treatment Visit HbOT # 38 Encounter Details Date Type Department Care Team Description 02/11/2015 Hospital Encounter [facility] Open wound of great toe Medicine at [facility] with damage to nail, [facility] right, [facility] [place] [address] Social History Tobacco Use Types Packs/Day Years Used Date Never Smoker Smokeless Tobacco: Never Used Alcohol Use Standard Drinks/Week Comments No 0 (1 standard drink = 0.6 oz pure alcoho l) Sex Assigned at Date Recorded Not on file documented as of this encounter Last Filed Vital Signs Vital Sign Reading Time Taken Comments Blood Pressure 141/94 02/11/2015 2:55 PM EDT Pulse 66 02/11/2015 2:55 PM EDT Temperature 36.8 ??C (98.2 ??F) 02/11/2015 12:50 PM EDT Respiratory Rate - - Oxygen Saturation - - Inhaled Oxygen Concentration - - Weight - - Height - - Body Mass Index - - documented in this encounter Medications at Time of Discharge Medication Sig Dispensed Refills Start Date End Date predniSONE (DELTASONE) 10 Take 1 tablet by 105 tablet 0 01/28 mg TabletIndications: mouth daily. 60mg (6 Ulcer of foot, tabs) qam x 7d, 50mg unspecified laterality, (5 tabs) qam x 7d, with unspecified severity 40mg (4 tabs) qam x 7d silver sulfADIAZINE Apply to affected 50 g 3 5 (SILVADENE) 1 % areas bid until CreamIndications: Ulcer ulcers resolved of foot, unspecified laterality, with unspecified severity venlafaxine (EFFEXOR-XR) 1 01/21/2015 150 mg Capsule, Sust. Release 24 hr buprenorphine-nalOXone Place 1 Film under 0 01/20 (SUBOXONE) 8-2 mg Film the tongue daily. vitamin E (VITAMIN E) 400 Take 400 Units by 0 unit Capsule mouth daily. amLODIPine (NORVASC) 5 mg 0 10/01/2014 Tablet VITAMIN C 500 mg Tablet 0 10/01/2014 ferrous sulfate 325 mg 0 10/01/2014 (65 mg iron) Tablet multivitamin (THERAGRAN) 0 10/01/2014 Tablet norgestimate-ethinyl Take 1 tablet by 0 estradiol (ORTHO mouth daily. TRI-CYCLEN, 28,) 0.18/0.215/0.25 mg-35 mcg (28) tablet ibuprofen (ADVIL;MOTRIN) Take 1 tablet by 30 tablet 2 09/19 800 mg tablet mouth every 8 hours as needed. documented as of this encounter Progress Notes Jemima Garcia RN - 02/11/2015 2:04 PM EDT Patient Name: Lindsay Odonnell Patient Age: 34 y.o. Birthdate: 1980 Admit date: 02/11/2015 Attending Physician: No att. providers found INTERVAL HISTORY: Ms. Venegas is alert & oriented, ambulating without difficulty. She denies any new discomfort, changes, issues, complaints. Wound/Dressing: Dressings on right great toe and left calf are intact. Serous drainage present on left calf. Lindsay Odonnell received hyperbaric oxygen treatment today [...] verified, patient placed in chamber, communications checked. Con Adames RN/Jemima Garcia RN,CHT administered the treatment and monitored the patient. HYPERBARIC TREATMENT: Number-38 Planned number of treatments-40 Compression Rate: 1.5psi/min Decompression Rate: 2.0 psi/min ALFREDO-2.4 Start Compression Reach Treatment Pressure - 2.4 ALFREDO Air Break Start Air Break Completed Start Decompression Treatment Completed 1257 1311 1356 1406 [phone] [facility] Chamber # 1 Clinical Practice Guideline for Hyperbaric Oxygen Therapy Prevent and manage for potential problems related to 1.Barotrauma, 2.oxygen toxicity, and 3.Pneumothorax. 4. Situational Problems Assessed: ALL (Barotrauma, Oxygen Toxicity, Pneumothorax, Situational) Problems Present: None, (Barotrauma, Oxygen Toxicity, Pneumothorax, Situational) No issues or complaints during or after treatment. Interventions: Per Clinical Practice Guidelines for Hyperbaric Oxygen Therapy through [facility]. No interventions required today. Patient alert and oriented. Ambulating with steady gait. Patient assessed and found appropriate to leave the Hyperbaric area at the conclusion of today???s session. Continue HBOT as planned. Next treatment scheduled for tomorrow, . She is scheduled to see Dermatology today after her HBOT. documented in this encounter Plan of Treatment Not on filedocumented as of this encounter Visit Diagnoses Diagnosis Open wound of great toe with damage to n ail, right, subsequent encounter documented in this encounter Care Teams Vp Software Support Relationship Specialty Start Date End Date Princess Henley MD PCP - General 03/12/12 04/26/[address] [place] [phone] documented as of this encounter
--- OUTSIDE RECORDS SUMMARY | 2022-02-03 15:54 | XMS_ITS | Encounter Summary ---
:1980 Author Organization [facility] [place] [address] Care Team Providers Name Role Phone Princess Henley MD Primary Care Provider Reason for Visit Reason Comments On Treatment Visit HBOT#[id number] Encounter Details Date Type Department Care Team Description 01/15/2015 Hospital Encounter [facility] Open wound of great toe with damage to nail, unspecified laterality, subsequent encounter; Medicine at [facility] [place] [address] Social History Tobacco Use Types Packs/Day Years Used Date Never Smoker Smokeless Tobacco: Never Used Alcohol Use Standard Drinks/Week Comments No 0 (1 standard drink = 0.6 oz pure alcoho l) Sex Assigned at Date Recorded Not on file documented as of this encounter Last Filed Vital Signs Vital Sign Reading Time Taken Comments Blood Pressure 118/78 01/15/2015 2:40 PM EDT Pulse 57 01/15/2015 2:40 PM EDT Temperature 36.7 ??C (98.1 ??F) 01/15/2015 12:40 PM EDT Respiratory Rate 16 01/15/2015 12:40 PM EDT Oxygen Saturation - - Inhaled Oxygen Concentration - - Weight - - Height - - Body Mass Index - - documented in this encounter Medications at Time of Discharge Medication Sig Dispensed Refills Start Date End Date vitamin E (VITAMIN E) 400 Take 400 [...] tablet mouth every 8 hours as needed. AFLURIA [id number], PF, 45 0 01/11/2015 01/21/2015 mcg (15 mcg x 3)/0.5 mL Syringe ciprofloxacin HCl (CIPRO) Take 500 mg by mouth 0 01/10/2015 01/17/2015 500 mg TabletIndications: 2 times daily. skin and skin structure Indications: Skin infection and Skin Structure Infection SUBOXONE 12-3 mg Film 0 11/27/201409/2014 SUBOXONE 2-0.5 mg Film 0 11/27/2014 sertraline (ZOLOFT) 100 0 10/07/2014 1 mg Tablet documented as of this encounter Progress Notes Joanne Mattson RN - 01/15/2015 1:14 PM EDT Patient Name: Lindsay Odonnell Patient Age: 34 y.o. Birthdate: 1980 Admit date: 01/15/2015 Attending Physician: Charu att. providers found INTERVAL HISTORY: Patient denies any discomfort, changes, issues, complaints. She arrived for her treatment in good spirits. She states that she has yet another new injury - this time she dropped her razor in the showerand it cut at the back of her left heel. Dressings to left st, left top of foot and right great toe all clean dry and intact. Pain Level: 6 (0-10 scale) She states that this is her baseline pain level. Lindsay Odonnell received hyperbaric oxygen treatment today for Open wounds of the Right great toe (subsequent) with Raynaud's disease. 100% cotton clothing in place. Patient checked for non-approved chamber items. Tympanic membranes checked. No redness or perforation noted. Patient assessed and met criteria to proceed with hyperbaric treatment. Safety checklist completed with patient. Grounding strap applied and grounding verified, patient placed in chamber, communications checked. Carlee ARMENTA/Jemima Garcia RN,CHT administered the treatment and monitored the patient. HYPERBARIC TREATMENT: Number- 23 Planned number of treatments- 30 and then a reevaluation Compression Rate: 1.5psi/min Decompression Rate: 2.0 psi/min ALFREDO- 2.4 Start Compression Reach Treatment Pressure - ALFREDO Air Break Start Air Break Completed Start Decompression Treatment Completed 1243 1257 1342 1352 1428 1439 Sechrist Chamber # 1 Clinical Practice Guideline for Hyperbaric Oxygen Therapy Prevent and manage for potential problems related to 1.Barotrauma, 2.oxygen toxicity, and 3.Pneumothorax. 4. Situational Problems Assessed: ALL (Barotrauma, Oxygen Toxicity, Pneumothorax, Situational) Problems Present: None, (Barotrauma, Oxygen Toxicity, Pneumothorax, Situational) No issues or complaints during or after treatment. Interventions: Per Clinical Practice Guidelines for Hyperbaric Oxygen Therapy through [facility]. No interventions required today. Patient alert and oriented. Ambulating with steady gait. Patient assessed and found appropriate to leave the Hyperbaric area at the conclusion of today???s session. Continue HBOT as planned. Next treatment scheduled for 01/18/15. documented in this encounter Plan of Treatment Not on filedocumented as of this encounter Visit Diagnoses Diagnosis Open wound of great toe with damage to n ail, unspecified laterality, subsequent encounter Raynaud's disease Raynaud's syndrome documented in this encounter Care Teams Order Processing Specialist Relationship Specialty Start Date End Date Princess Henley MD PCP - General 03/12/12 04/26/[address] [place] [phone] documented as of this encounter
--- OUTSIDE RECORDS SUMMARY | 2022-02-03 15:54 | XMS_ITS | Encounter Summary ---
:1980 Author Organization [facility] [place] [address] Care Team Providers Name Role Phone Princess Henley MD Primary Care Provider Encounter Details Date Type Department Care Team Description 01/27/2015 Notes Only [facility] Louie Sheth Jr., [place] [address] [place] [address] [phone] Social History Tobacco Use Types Packs/Day Years Used Date Never Smoker Smokeless Tobacco: Never Used Alcohol Use Standard Drinks/Week Comments No 0 (1 standard drink = 0.6 oz pure alcoho l) Sex Assigned at Date Recorded Not on file documented as of this encounter Progress Notes Pako Sheth Jr., MD - 01/27/2015 8:11 AM EDT Has completed 29 of a planned 40 treatments. Progress has been reviewed and is excellent. The woundson her left dorsal foot and her left medial ankle have healed. The wound on her right great toe is continuing to reduce in size and the base is completely covered with granulation tissue. She still hasthe eschar covered wound on her left tibia, although the surrounding swelling is going down. Complications: No hyperbaric related complications. Follow up plan: Continuing the hyperbaric treatments is MEDICALLY NECESSARY in her case. This is thefirst time in over a year that he is having sustained improvement in these wounds and she is currently on track to potentially heal her right great toe wound. documented in this encounter Plan of Treatment Not on filedocumented as of this encounter Visit Diagnoses Not on filedocumented in this encounter Care Teams Scale Adjuster Relationship Specialty Start Date End Date Princess Henley MD PCP - General 03/12/12 04/26/[address] [place] [phone] documented as of this encounter
--- OUTSIDE RECORDS SUMMARY | 2022-02-03 15:54 | XMS_ITS | Encounter Summary ---
:1980 Author Organization [facility] [place] [address] Care Team Providers Name Role Phone Princess Henley MD Primary Care Provider Encounter Details Date Type Department Care Team Description 01/21/2015 Orders Only [facility] YaEllie pollock APRN Medicine at [facility] [place] [address] [place] [address] [phone] (Wo rk) Social History Tobacco Use Types Packs/Day Years [...] on filedocumented in this encounter Care Teams Grinding Wheel Inspector Relationship Specialty Start Date End Date Princess Henley MD PCP - General 03/12/12 04/26/[address] [place] [phone] documented as of this encounter
--- OUTSIDE RECORDS SUMMARY | 2022-02-03 15:54 | XMS_ITS | Encounter Summary ---
:1980 Author Organization [facility] [place] [address] Care Team Providers Name Role Phone Princess Henley MD Primary Care Provider Reason for Visit Reason Comments On Treatment Visit HBOT#24 Encounter Details Date Type Department Care Team Description 01/18/2015 Hospital Encounter [facility] Open wound of great toe with damage to nail, right, subsequent encounter; Medicine at [facility] [place] [address] Social History Tobacco Use Types Packs/Day Years Used Date Never Smoker Smokeless Tobacco: Never Used Alcohol Use Standard Drinks/Week Comments No 0 (1 standard drink = 0.6 oz pure alcoho l) Sex Assigned at Date Recorded Not on file documented as of this encounter Last Filed Vital Signs Vital Sign Reading Time Taken Comments Blood Pressure 135/88 01/18/2015 3:04 PM EDT Pulse 51 01/18/2015 3:04 PM EDT Temperature 37.1 ??C (98.8 ??F) 01/18/2015 12:45 PM EDT Respiratory Rate 16 01/18/2015 12:45 PM EDT Oxygen Saturation - - Inhaled [...] mouth every 8 hours as needed. AFLURIA [id number], PF, 45 0 01/11/2015 01/21/2015 mcg (15 mcg x 3)/0.5 mL Syringe SUBOXONE 12-3 mg Film 0 11/27/201409/2014 SUBOXONE 2-0.5 mg Film 0 11/27/2014 sertraline (ZOLOFT) 100 mg 0 5 02/02/2015 Tablet documented as of this encounter Progress Notes Joanne Mattson RN - 01/18/2015 12:54 PM EDT Patient Name: Lindsay Odonnell Patient Age: 34 y.o. Birthdate: 1980 Admit date: 01/18/2015 Attending Physician: No att. providers found INTERVAL HISTORY: Patient denies any discomfort, changes, issues, complaints. She arrived for her treatment in good spirits. Wound/Dressing: Dressings are all clean, dry and intact. Right great toe still very red but she states that the wound is looking better. Left st wound is less infected per patient. Small wound on top of left foot and cut on back of left heel are both healing well and open to air. Pain Level: 6 (0-10 scale) She states that this is her baseline pain. Lindsay Odonnell received hyperbaric oxygen treatment today for Raynaud's Disease with Open Woundof right great toe (subsequent encounter). 100% cotton clothing in place. Patient checked for non-approved chamber items. Tympanic membranes checked.Still wax hanging down in right ear - but able to visualize beyond. No redness or perforation noted. Patient assessed and met criteria to proceed with hyperbaric treatment. Safety checklist completed with patient. Grounding strap applied and grounding verified, patient placed in chamber, communications checked. Joanne Mattson RN/Jemima Ptak RN,CHT administered the treatment and monitored the patient. HYPERBARIC TREATMENT: Number- 24 Planned number of treatments- 30 and then a reevaluation Compression Rate: 1.5psi/min Decompression Rate: 2.0 psi/min ALFREDO- 2.4 Start Compression Reach Treatment Pressure - ALFREDO Air Break Start Air Break Completed Start Decompression Treatment Completed 1248 1353 1303 1407 Stop for break Bathroom Then restart 1340 1452 1500 Sechrist Chamber # 1 Clinical Practice Guideline for Hyperbaric Oxygen Therapy Prevent and manage for potential problems related to 1.Barotrauma, 2.oxygen toxicity, and 3.Pneumothorax. 4. Situational Problems Assessed: ALL (Barotrauma, Oxygen Toxicity, Pneumothorax, Situational) Problems Present: (Barotrauma, Oxygen Toxicity, Pneumothorax, Situational) When reaching pressure the second time (after BR break), she had difficulty clearing her right ear.Pressure was reduced and held at 2.0 ALFREDO. No changes to right ear when she was reassessed post-treatment. Interventions: Per Clinical Practice Guidelines for Hyperbaric Oxygen Therapy through [facility]. No interventions required today. Patient alert and oriented. Ambulating with steady gait. Patient assessed and found appropriate to leave the Hyperbaric area at the conclusion of today???s session. Continue HBOT as planned. Next treatment scheduled for 01/19/15. documented in this encounter Plan of Treatment Not on filedocumented as of this encounter Visit Diagnoses Diagnosis Open wound of great toe with damage to n ail, right, subsequent encounter Raynaud's disease Raynaud's syndrome documented in this encounter Care Teams Content Management Specialist Relationship Specialty Start Date End Date Princess Henley MD PCP - General 03/12/12 04/26/15 [address] [place] [phone] documented as of this encounter
--- OUTSIDE RECORDS SUMMARY | 2022-02-03 15:54 | XMS_ITS | Encounter Summary ---
:1980 Author Organization [facility] [place] [address] Care Team Providers Name Role Phone Princess Henley MD Primary Care Provider Reason for Visit Reason Comments On Treatment Visit HBOT # 28 Encounter Details Date Type Department Care Team Description 01/25/2015 Hospital Encounter [facility] Open wound of great toe with damage to nail, right, subsequent encounter; Medicine at [facility] [place] [address] Social History Tobacco Use Types Packs/Day Years Used Date Never Smoker Smokeless Tobacco: Never Used Alcohol Use Standard Drinks/Week Comments No 0 (1 standard drink = 0.6 oz pure alcoho l) Sex Assigned at Date Recorded Not on file documented as of this encounter Last Filed Vital Signs Vital Sign Reading Time Taken Comments Blood Pressure 119/85 01/25/2015 12:00 PM EDT Pulse 59 01/25/2015 12:00 PM EDT Temperature 37.1 ??C (98.8 ??F) 01/25/2015 9:55 AM EDT Respiratory Rate - - Oxygen [...] encounter Progress Notes Jemima Garcia RN - 01/25/2015 10:54 AM EDT Patient Name: Lindsay Odonnell Patient Age: 34 y.o. Birthdate: 1980 Admit date: 01/25/2015 Attending Physician: Charu att. providers found INTERVAL HISTORY: Ms. Odonnell is alert & oriented and ambulating without difficulty. She denies any new discomfort, changes, issues, complaints. Wound/Dressing: Guaze dressing in place on right great toe and around left calf. These are D & I. She is very excited as she feels the wound between her great toe and 2nd toe on her left foot is basically healed and the area on the medial aspect of her left ankle is also healed and she continues to see healing on her great toe. She feels the redness around the area on her left st is almost gone. She would like to continue HBOT for 10 more treatments. Lindsay Odonnell received hyperbaric oxygen treatment today for non-healin wound of right great toe due to [...] treatment and monitored the patient. HYPERBARIC TREATMENT: Number-28 Planned number of treatments-30 Compression Rate: 1.5psi/min Decompression Rate: 2.0 psi/min ALFREDO-2.4 Start Compression Reach Treatment Pressure - 2.4 ALFREDO Air Break Start Air Break Completed Start Decompression Treatment Completed 1001 1015 1100 1110 1145 1158 Sechrist Chamber # 1 Clinical Practice Guideline [...] as planned. Next treatment scheduled for tomorrow, Jan.26. documented in this encounter Miscellaneous Notes Addendum Note - Jemima Garcia RN - 01/26/2015 1:14 PM EDTEncounter addended by: Jemima Garcia RN on: 01/26/2015 1:14 PM
Documentation filed: Clinical Notes documented in this encounter Plan of Treatment Not on filedocumented as of this encounter Visit Diagnoses Diagnosis Open wound of great toe with damage to n ail, right, subsequent encounter Raynaud's disease Raynaud's syndrome documented in this encounter Care Teams Bar Pointer Relationship Specialty Start Date End Date Princess Henley MD PCP - General 03/12/12 04/26/[address] [place] [phone] documented as of this encounter
--- OUTSIDE RECORDS SUMMARY | 2022-02-03 15:54 | XMS_ITS | Encounter Summary ---
:1980 Author Organization [facility] [place] [address] Care Team Providers Name Role Phone Chris Bundy MD Primary Care Provider Reason for Visit Reason Onset Date Comments Other 04/27/2015 Telephone Encounter Details Date Type Department Care Team Description 04/27/2015 Telephone Dermatology at Dorina Pa MD Other (Telephone) [facility] [address] [facility] [place] [address] [place] [address] [phone] (Wo rk) Social History Tobacco Use Types Packs/Day Years Used Date Never Smoker Smokeless Tobacco: Never Used Alcohol Use Standard Drinks/Week Comments No 0 (1 standard drink = 0.6 oz pure alcoho l) Sex Assigned at Date Recorded Not on file documented as of this encounter Miscellaneous Notes Telephone Encounter - Ev Davis - 04/27/2015 9:02 AM EST Patient needs an appointment according to her PCP for multiple non-healting ulcers, oral prednisone didn't help. I called in an attempt to make an appointment, left a message for patient to call me back. PCP states patient is very difficult to get a hold of. documented in this encounter Plan of Treatment Not on filedocumented as of this encounter Visit Diagnoses Not on filedocumented in this encounter Care Teams Athletics Teacher Relationship Specialty Start Date End Date Chris Bundy MD PCP - General General Internal Medicine 04/27/15 11/29/17 [address] [place] [phone] documented as of this encounter
--- OUTSIDE RECORDS SUMMARY | 2022-02-03 15:54 | XMS_ITS | Encounter Summary ---
:1980 Author Organization [facility] [address] Care Team Providers Name Role Phone Princess Henley MD Primary Care Provider Encounter Details Date Type Department Care Team Description 02/03/2015 Notes Only [facility] Louie Sheth [place]., [place] [address] [place] [address] [phone] Social History Tobacco Use Types Packs/Day Years Used Date Never Smoker Smokeless Tobacco: Never Used Alcohol Use Standard Drinks/Week Comments No 0 (1 standard drink = 0.6 oz pure alcoho l) Sex Assigned at Date Recorded Not on file documented as of this encounter Progress Notes Pako Sheth Jr., MD - 02/03/2015 8:37 AM EDT Has completed 32 of 40 treatments. Progress has been reviewed and has been good. She has been showing a reduction in the wound size. Complications: No hyperbaric-related complications. Follow up plan: Continue hyperbaric treatments. documented in this encounter Plan of Treatment Not on filedocumented as of this encounter Visit Diagnoses Not on filedocumented in this encounter Care Teams Cloth Sander Relationship Specialty Start Date End Date Princess Henley MD PCP - General 03/12/12 04/26/[address] [place] [phone] documented as of this encounter
--- OUTSIDE RECORDS SUMMARY | 2022-02-03 15:54 | XMS_ITS | Encounter Summary ---
:1980 Author Organization [facility] [place] [address] Care Team Providers Name Role Phone Ratna Olivas MD Primary Care Provider Encounter Details Date Type Department Care Team Description 04/22/2021 Telephone Orthopaedics at [facility] Tommie Whipple, [facility] [place] [address] [facility] [phone] ORTHOPAEDIC SURG [place], [place] [address] (Wo rk) Social History Tobacco Use Types Packs/Day Years Used Date Never Smoker Smokeless Tobacco: Never Used Alcohol Use Standard Drinks/Week Comments No 0 (1 standard drink = 0.6 oz pure alcoho l) Sex Assigned at Date Recorded Not on file documented as of this encounter Miscellaneous Notes Telephone Encounter - Tommie Whipple MD - 04/22/2021 12:26 PM EST Telephone Note I took a transfer center call from Dr. De Anda at [facility] regarding Ms. Odonnell. Ms. Odonnell is a 40 year old female with history of IVDU, L BKA who presents to [facility] with right hand swelling and pain overthe last 3 days. Per provider there is no open wound to hand and patient has not injected to right hand recently though she has in the past. She has a significant cellulitis in the hand and the provider is currently concerned about flexor tenosynovitis and sepsis. She is currently on vanc and ceftriaxone for antibiotics. Her WBC is 17, ESR 61, CRP 23. She has TTP over her flexor tendons at the wrist and a CT which shows inflammation concerning for tenosynovitis. She has pain passive flexion of fingers though she does not have fusiform swelling. I expressed that given her clinical picture and the exam she should be evaluated by a Hand surgeon for possible operative debridement. Unfortunately per our transfer center we are not able to accept her as a transfer, and the provider is going to reach outto other hopsitals to see if she can be transferred to another center. I expressed he should call again to see if our situation changes if another hospital is not able to admit her, and in the mean time he should get XR of the hand as well as continue antibiotics. Provider agreed with this plan. documented in this encounter Plan of Treatment Not on filedocumented as of this encounter Visit Diagnoses Not on filedocumented in this encounter Care Teams Biofuels Plant Superintendent Relationship Specialty Start Date End Date Ratna Olivas MD PCP - General Family Medicine 01/16/19 Liseth [address] [place] [address] documented as of this encounter
--- OUTSIDE RECORDS SUMMARY | 2022-02-03 15:54 | XMS_ITS | Encounter Summary ---
:1980 Author Organization [facility] Address [address] [place] [address] Care Team Providers Name Role Phone Princess Henley MD Primary Care Provider Reason for Visit Reason Comments On Treatment Visit HBOT# 32 Encounter Details Date Type Department Care Team Description 02/02/2015 Hospital Encounter [facility] Open wound of great toe Medicine at [facility] with damage to nail, [facility] right, [address] [place] [address] Social History Tobacco Use Types Packs/Day Years Used Date Never Smoker Smokeless Tobacco: Never Used Alcohol Use Standard Drinks/Week Comments No 0 (1 standard drink = 0.6 oz pure alcoho l) Sex Assigned at Date Recorded Not on file documented as of this encounter Last Filed Vital Signs Vital Sign Reading Time Taken Comments Blood Pressure 149/101 02/02/2015 11:50 AM EDT Pulse 56 02/02/2015 11:50 AM EDT Temperature 37 ??C (98.6 ??F) 02/02/2015 9:44 AM EDT Respiratory Rate 16 02/02/2015 9:44 AM EDT Oxygen Saturation - - Inhaled [...] encounter Progress Notes Carlee Bernard RN - 02/02/2015 10:52 AM EDT Patient Name: Lindsay Odonnell Patient Age: 34 y.o. Birthdate: 1980 Admit date: 02/02/2015 Attending Physician: No att. providers found INTERVAL HISTORY: Patient alert, oriented and conversant. Ambulating without difficulty. Denies any discomfort, changes, issues, complaints. No issues with ears. Afebrile. Guaze dressing on left st is C/D/I. Hydrofera Blue dressing to right great toe intact. Patient reports her toe is healing. It's about half healed! Wound below left 2nd toe is healed. Wound above left medial malleolus is uncovered and dry. New wound on left knee from recent fall is dry with surrounding erythema. Area tender. No dressing at this time. Lindsay Odonnell received hyperbaric oxygen treatment today for non-healing wound right great toedue to hypoxia secondary to Raynaud's disease. 100% cotton clothing in place. Patient checked for non-approved chamber items. Tympanic membranes checked. No redness or perforation noted. Patient assessed and met criteria to proceed with hyperbaric treatment. Safety checklist completed with patient. Grounding strap applied and grounding verified, patient placed in chamber, communications checked. Carlee ARMENTA/Jemima Garcia RN,CHT administered the treatment and monitored the patient. HYPERBARIC TREATMENT: Number-32 Planned number of treatments-40 Compression Rate: 1.5psi/min Decompression Rate: 2.0 psi/min ALFREDO-2.4 Start Compression Reach Treatment Pressure - ALFREDO Air Break Start Air Break Completed Start Decompression Treatment Completed 0950 1005 1050 1100 1135 1146 Sechrist Chamber # 1 Clinical Practice Guideline for Hyperbaric Oxygen Therapy Prevent and manage for potential problems related to 1.Barotrauma, 2.oxygen toxicity, and 3.Pneumothorax. 4. Situational Problems Assessed: ALL (Barotrauma, Oxygen Toxicity, Pneumothorax, Situational) Problems Present: None, (Barotrauma, Oxygen Toxicity, Pneumothorax, Situational) No issues or complaints during or after treatment. Interventions: Per Clinical Practice Guidelines for Hyperbaric Oxygen Therapy through [facility]. No interventions required today. Informed patient that her Dermatology appointment with Dr. Pedroza has been changed to 15:40 on 02/11/15 to accommodate her HBOT at 12:30. Patient will be able to make new Derm. appointment time. Patient alert and oriented. Ambulating with steady gait. Patient assessed and found appropriate to leave the Hyperbaric area at the conclusion of today???s session. Continue HBOT as planned. Next treatment scheduled for 02/03/15. documented in this encounter Miscellaneous Notes Addendum Note - Carlee Bernard RN - 02/02/2015 3:27 PM EDTEncounter addended by: Carlee Bernard, RN on: 02/02/2015 3:27 PM
Documentation filed: Medications documented in this encounter Plan of Treatment Not on filedocumented as of this encounter Visit Diagnoses Diagnosis Open wound of great toe with damage to n ail, right, subsequent encounter documented in this encounter Care Teams Toll Testboard Worker Relationship Specialty Start Date End Date Princess Henley MD PCP - General 03/12/12 04/26/[address] [place] [phone] documented as of this encounter
--- OUTSIDE RECORDS SUMMARY | 2022-02-03 15:54 | XMS_ITS | Encounter Summary ---
:1980 Author Organization [facility] [place] [address] Care Team Providers Name Role Phone Princess Henley MD Primary Care Provider Encounter Details Date Type Department Care Team Description 02/17/2015 Notes Only [facility] Louie Sheth Jr., [place] [address] [place] [address] [phone] Social History Tobacco Use Types Packs/Day Years Used Date Never Smoker Smokeless Tobacco: Never Used Alcohol Use Standard Drinks/Week Comments No 0 (1 standard drink = 0.6 oz pure alcoho l) Sex Assigned at Date Recorded Not on file documented as of this encounter Progress Notes Pako Sheth Jr., MD - 02/17/2015 8:36 AM EDT Has completed 37 of a planned 40 treatments. Progress has been reviewed and is very good. At her most recent wound care visit the wounds were clearly decreased in size and granulating well. She had a dermatology visit, and her tibial wound was thought to be consistent with pyoderma gangrenosum, and she was started on steroids. Her ABIs are normal. Complications: Has not been back for treatments in a few days. Follow up plan: Continue hyperbaric treatments. documented in this encounter Plan of Treatment Not on filedocumented as of this encounter Visit Diagnoses Not on filedocumented in this encounter Care Teams Grain Mill Products Inspector Relationship Specialty Start Date End Date Princess Henley MD PCP - General 03/12/12 04/26/15 [address] [place] [phone] documented as of this encounter
--- OUTSIDE RECORDS SUMMARY | 2022-02-03 15:54 | XMS_ITS | Encounter Summary ---
:1980 Author Organization [facility] [place] [address] Care Team Providers Name Role Phone Ratna Olivas MD Primary Care Provider Encounter Details Date Type Department Care Team Description 04/22/2021 Ancillary Procedure Radiology Library at Ratna Olivas MD [address] [place] [address] [phone] (Wo rk) Social History Tobacco Use Types Packs/Day Years Used Date Never Smoker Smokeless Tobacco: Never Used Alcohol Use Standard Drinks/Week Comments No 0 (1 standard drink = 0.6 oz pure alcoho l) Sex Assigned at Date Recorded Not on file documented as of this encounter Plan of Treatment Not on filedocumented as of this encounter Procedures Procedure Name Priority Date/Time Associated Diagnosis Comme nts FILM LIBRARY Routine 04/22/2021 11:42 AM Results for this STORAGE ONLY CT EST procedure ar e in UPPER EXTREMITY the results section. documented in this encounter Results Film Library- Storage Only CT Upper Extremity (04/22/2021 11:42 AM EST) Specimen (Source) Anatomical Location Collection Method / Collectio n Time Received Time / Laterality Volume Narrative PAVAN - 04/22/2021 11:42 AM EST This exam is auto-finalizing. It's purpo se is for storage only. Ratna Olivas MD [facility] FILM LIBRARY ORDERABLES Performing Organization Address City/State/ZIP Code Phon e Number [facility] [place] documented in this encounter Visit Diagnoses Not on filedocumented in this encounter Care Teams Merchandise Execution Leader Relationship Specialty Start Date End Date Ratna Olivas MD PCP - General Family Medicine 01/16/19 [address] [place] [address] documented as of this encounter
--- OUTSIDE RECORDS SUMMARY | 2022-02-03 15:54 | XMS_ITS | Encounter Summary ---
:1980 Author Organization [facility] [place] [address] Care Team Providers Name Role Phone Princess Henley MD Primary Care Provider Encounter Details Date Type Department Care Team Description 01/20/2015 Notes Only [facility] Louie Sheth Jr., [place] [address] [place] [address] [phone] Social History Tobacco Use Types Packs/Day Years Used Date Never Smoker Smokeless Tobacco: Never Used Alcohol Use Standard Drinks/Week Comments No 0 (1 standard drink = 0.6 oz pure alcoho l) Sex Assigned at Date Recorded Not on file documented as of this encounter Progress Notes Pako Sheth Jr., MD - 01/20/2015 10:08 PM EDT Has completed 25 of a possible 40 treatments. Progress has been reviewed and is mixed. The wound on her right great toe did not change in size over the past week, but it does have a good base of granulation tissue. Her left foot infection has cleared, and the draining area between her 1st and 2nd toeson the right is improved. But, she developed a wound on her anterior st, that is now covered in eschar. The etiology of this wound is unclear. Although she did have some trauma, it seemed minor and the size and nature of the wound is unusual. Complications: No hyperbaric related complications. Follow up plan: Will discuss with patient possible referral to dermatology to assess the nature of her anterior tibial wound. Also, with her history of Raynauds it is possible she has some other vasculitis or connective tissue disease. documented in this encounter Plan of Treatment Not on filedocumented as of this encounter Visit Diagnoses Not on filedocumented in this encounter Care Teams Investigator Cash Shortage Relationship Specialty Start Date End Date Princess Henley MD PCP - General 03/12/12 04/26/[address] [place] [phone] documented as of this encounter
--- OUTSIDE RECORDS SUMMARY | 2022-02-03 15:54 | XMS_ITS | Encounter Summary ---
:1980 Author Organization [facility] Address [address] [place] [address] Care Team Providers Name Role Phone Princess Henley MD Primary Care Provider Reason for Visit Reason Comments On Treatment Visit HBOT # 37 Encounter Details Date Type Department Care Team Description 02/10/2015 Hospital Encounter [facility] Open wound of great toe Medicine at [facility] [place] to nail, [facility] right, [facility] [place] [address] Social History Tobacco Use Types Packs/Day Years Used Date Never Smoker Smokeless Tobacco: Never Used Alcohol Use Standard Drinks/Week Comments No 0 (1 standard drink = 0.6 oz pure alcoho l) Sex Assigned at Date Recorded Not on file documented as of this encounter Last Filed Vital Signs Vital Sign Reading Time Taken Comments Blood Pressure 140/106 02/10/2015 2:46 PM EDT Pulse 62 02/10/2015 2:46 PM EDT Temperature 36.4 ??C (97.5 ??F) 02/10/2015 12:40 PM EDT Respiratory Rate - - Oxygen [...] documented as of this encounter Progress Notes Ellie Nagy APRN - 02/10/2015 1:45 PM EDT Images from the original note were not included. Patient Name: Lindsay Odonnell Patient Age: 34 y.o. Birthdate: 1980 Admit date: 02/10/2015 Attending Physician: No att. providers found INTERVAL HISTORY: Patient denies any discomfort, changes, issues, complaints. Visual Change: Denies SOB: Denies Headaches: Denies Cough: Denies Ear Pain: Denies Chest Pain: Denies Cold symptoms:Denies Wound/Dressing:Hydrofera Blue intact to right great toe and Medi Honey with gauze intact to LLE. Pain Level: 3/10 to wounds Education: Reinforced safety measures in chamber. Wound care instruction. Lindsay Odonnell received hyperbaric oxygen treatment today for non-healing wound to right great toe. 100% cotton clothing in place. Patient checked for non-approved chamber items. Tympanic membranes checked. No redness or perforation noted. Patient assessed and met criteria to proceed with hyperbaric treatment. Safety checklist completed with patient. Grounding strap applied and grounding verified, patient placed in chamber, communications checked. Ellie Nagy APRN/Jemima Garcia RN,CHT administered the treatment and monitored the patient. HYPERBARIC TREATMENT: Number-37 Planned number of treatments-40 Compression Rate: 1.5psi/min Decompression Rate: 2.0 psi/min ALFREDO-2.4 Start Compression Reach Treatment Pressure - ALFREDO Air Break Start Air Break Completed Start Decompression Treatment Completed 1248 1302 1347 1357 1433 1444 Sechrist Chamber # 1 Wound treatment: Post HBOT Left anterior lower leg and right great toe Cleansed wound with NS. Analgesia: Lidocaine jelly 2% Conservative sharp debridement of devitalized tissue on wound bed to left anterior lower leg to remove slough with curette, forceps and Iris scissors. Right great toe was not debrided. No bleeding post debridement. Patient tolerated treatment well. Dressing: Medi Honey gel to left anterior lower leg,plain mepilex , conform gauze, secured with tape Promogran, Hydrofera blue Ready to right great toe secured with Medipore tape. Wound location Wound bed Measurement Right great toe [place] tissue 0.4cm x 1.6cm Left medial lower leg [place] tissue Not measured Left anterior lower leg [place] tissue mixed with yellow slough 3.3cm x 3.6cm x 0.2 Left dorsal foot Healed Healed Undermining/tunneling: No Right great toe Left anterior lower leg Assessment/ Plan: Lindsay Odonnell is a 34 y.o. female with wounds to LLE and right great toe. There is contnued erythema to left anterior lower leg periwound and right great toe with no overt signs of infection. The eschar that was present previously has resolved. There is slough to LLE wound to center of the wound. Will continue wound care with Medi Honey to promote autolytic debridement. JORDYN results:No significant lower extremity arterial occlusive disease. Indications: Slow healing RIGHT great toe wound and LEFT medial ankle and LEFT dorsal foot wound, ? degree of lower extremity perfusion/PAD Diabetes mellitus: No ICD10 Diagnosis Code: S91.201D, L97.519, L97.529 Definitions: JORDYN = Ankle / Brachial Systolic Pressure Index, TBI = Toe / Brachial Systolic Pressure Index. All systolic pressures in this study are derived based on Doppler assessment of blood flow. Findings: Right Pressure (mm Hg) JORDYN Waveform TBI Brachial Artery 116 Common Femoral Artery Triphasic Pop Fossa Triphasic Dorsalis Pedis (Ankle) Artery 134 1.12 Triphasic Posterior Tibial (Ankle) Artery 143 1.19 Triphasic Great Toe 106 0.88 Left Pressure (mm Hg) JORDYN Waveform TBI Brachial Artery 120 Common Femoral Artery Triphasic Pop Fossa Triphasic Dorsalis Pedis (Ankle) Artery 132 1.10 Triphasic Posterior Tibial (Ankle) Artery 139 1.16 Triphasic Great Toe 101 0.84 Interpretation: RIGHT: No significant lower extremity arterial occlusive disease. Normal ankle/brachial pressure ratios, ankle Doppler waveforms and toe pressures. LEFT: No significant lower extremity arterial occlusive disease. Normal ankle/brachial pressure ratios, ankle Doppler waveforms and toe pressures. Wound dimensions to right great toe have again decreased over the past week. Will continue Promogran and Hydrofera Blue Ready to continue healing. The wound bed is clean with pink tissue. Left lower leg medial wound is healed and left foot wound remains healed. She will continue her own dressing changes to right great toe and left anterior lower leg. She was provided with verbal wound care instructions. She will call with any questions or concerns. Will continue with HBOT daily. Clinical Practice Guideline for Hyperbaric Oxygen Therapy Prevent and manage for potential problems related to 1.Barotrauma, 2.oxygen toxicity, and 3.Pneumothorax. 4. Situational Problems Assessed: ALL (Barotrauma, Oxygen Toxicity, Pneumothorax, Situational) Problems Present: None, (Barotrauma, Oxygen Toxicity, Pneumothorax, Situational) No issues or complaints during or after treatment. Interventions: Per Clinical Practice Guidelines for Hyperbaric Oxygen Therapy through [facility]. No interventions required today. Patient alert and oriented. Ambulating with steady gait. Patient assessed and found appropriate to leave the Hyperbaric area at the conclusion of today???s session. Continue HBOT as planned. Next treatment scheduled for 02/11/15. documented in this encounter Plan of Treatment Not on filedocumented as of this encounter Visit Diagnoses Diagnosis Open wound of great toe with damage to n ail, right, subsequent encounter documented in this encounter Care Teams Porcelain Buildup Assistant Relationship Specialty Start Date End Date Princess Henley MD PCP - General 03/12/12 04/26/15 [address] [place] [phone] documented as of this encounter
--- OUTSIDE RECORDS SUMMARY | 2022-02-03 15:54 | XMS_ITS | Encounter Summary ---
:1980 Author Organization [facility] [place] [address] Care Team Providers Name Role Phone Princess Henley MD Primary Care Provider Reason for Visit Reason Comments On Treatment Visit HBOT# 29 Encounter Details Date Type Department Care Team Description 01/26/2015 Hospital Encounter [facility] Raynaud's disease Medicine at [facility] [place] [address] Social History Tobacco Use Types Packs/Day Years Used Date Never Smoker Smokeless Tobacco: Never Used Alcohol Use Standard Drinks/Week Comments No 0 (1 standard drink = 0.6 oz pure alcoho l) Sex Assigned at Date Recorded Not on file documented as of this encounter Last Filed Vital Signs Vital Sign Reading Time Taken Comments Blood Pressure 115/78 01/26/2015 11:55 AM EDT Pulse 54 01/26/2015 11:55 AM EDT Temperature 37 ??C (98.6 ??F) 01/26/2015 9:50 AM EDT Respiratory Rate - - [...] encounter Progress Notes Carlee Bernard RN - 01/26/2015 10:43 AM EDT INTERVAL HISTORY: Ms. Odonnell is alert & oriented and ambulating without difficulty. She denies any new discomfort, changes, issues, complaints. Wound/Dressing: Guaze dressing in place on right great toe D/I. Tubigrip on left LE removed for treatment. No dressing over left st wound. Wound bed covered with eschar tissue. Wound between great toe and 2nd toe on her left foot and the area on the medial aspect of her left ankle appear healed. Lindsay continues to see healing on her great toe. Education: Encouraged patient to continue with Medihoney to left st wound as per plan of care, andexplained it will help loosen eschar tissue. Patient agrees with plan. Lindsay Odonnell received hyperbaric oxygen treatment today [...] treatment and monitored the patient. HYPERBARIC TREATMENT: Number-29 Planned number of treatments-40 Compression Rate: 1.5psi/min Decompression Rate: 2.0 psi/min ALFREDO-2.4 Start Compression Reach Treatment Pressure - ALFREDO Air Break Start Air Break Completed Start Decompression Treatment Completed 954 1010 1055 1105 1140 1152 Sechrist Chamber # 1 Clinical Practice Guideline for Hyperbaric Oxygen Therapy Prevent and manage for potential problems related to 1.Barotrauma, 2.oxygen toxicity, and 3.Pneumothorax. 4. Situational Problems Assessed: ALL (Barotrauma, Oxygen Toxicity, Pneumothorax, Situational) Problems Present: None, (Barotrauma, Oxygen Toxicity, Pneumothorax, Situational) No issues or complaints during or after treatment. Interventions: Per Clinical Practice Guidelines for Hyperbaric Oxygen Therapy through [facility]. No interventions required today. Patient alert and oriented. Ambulating with steady gait. After treatment, patient applied Medihoney to left st wound and covered with Telfa, guaze wrap and tubigrip. Patient assessed and found appropriate to leave the Hyperbaric area at the conclusion of today???s session. Continue HBOT as planned. Next treatment scheduled for 01/27/15. Patient aware she has appointment with Dermatology on 02/11/15. documented in this encounter Plan of Treatment Not on filedocumented as of this encounter Visit Diagnoses Diagnosis Raynaud's disease Raynaud's syndrome documented in this encounter Care Teams Neurology Technologist Relationship Specialty Start Date End Date Princess Henley MD PCP - General 03/12/12 04/26/[address] [place] [phone] documented as of this encounter
--- OUTSIDE RECORDS SUMMARY | 2022-02-03 15:54 | XMS_ITS | Encounter Summary ---
:1980 Author Organization [facility] Address [address] [place] [address] Care Team Providers Name Role Phone Princess Henley MD Primary Care Provider Reason for Referral Consultation (Routine) - Closed Specialty Diagnoses / Procedures Referred By Contact Refer red To Contact Dermatology Diagnoses Post-traumatic wound infection, initial encounter Pako Sheth Jr., MD [facility] Dermatology [facility] [address] [place] [address] [place] [address] Fax: Referral ID Status Reason Start Date Expiration Date Visits V isits Requested Authorized [id number] Closed Consult, 01/22/2015 01/22/2016 1 1 Test & Treat Encounter Details Date Type Department Care Team Description 01/21/2015 Orders Only [facility] Pako Sheth Jr., Post-traumatic wound Medicine [place] [facility] [place], initial [facility] [place] [address] [place] [address] [phone] Social History Tobacco Use Types Packs/Day Years Used Date Never Smoker Smokeless Tobacco: Never Used Alcohol Use Standard Drinks/Week Comments No 0 (1 standard drink = 0.6 oz pure alcoho l) Sex Assigned at Date Recorded Not on file documented as of this encounter Miscellaneous Notes Addendum Note - Morgan Dumont RN - 01/22/2015 10:31 AM EDT Addended by: MORGAN DUMONT on: 01/22/2015 10:31 AM Modules accepted: Orders documented in this encounter Plan of Treatment Scheduled Referrals Name Type Priority Associated Order Schedule Diagnoses Referral to Outpatient Referral Routine Post-traumatic Ordere d: Dermatology wound infection, 01/22/2015 initial encounter documented as of this encounter Visit Diagnoses Diagnosis Post-traumatic wound infection, initial encounter documented in this encounter Care Teams Manufacturing Engineering Technician Relationship Specialty Start Date End Date Princess Henley MD PCP - General 03/12/12 04/26/[address] [place] [phone] documented as of this encounter
--- OUTSIDE RECORDS SUMMARY | 2022-02-03 15:54 | XMS_ITS | Encounter Summary ---
:1980 Author Organization [facility] [place] [address] Care Team Providers Name Role Phone Princess Henley MD Primary Care Provider Reason for Visit Reason Comments On Treatment Visit HBOT #30 Encounter Details Date Type Department Care Team Description 01/27/2015 Hospital Encounter [facility] Open wound of great toe with damage to nail, right, subsequent encounter; [place] [facility] [place] [address] Social History Tobacco Use Types Packs/Day Years Used Date Never Smoker Smokeless Tobacco: Never Used Alcohol Use Standard Drinks/Week Comments No 0 (1 standard drink = 0.6 oz pure alcoho l) Sex Assigned at Date Recorded Not on file documented as of this encounter Last Filed Vital Signs Vital Sign Reading Time Taken Comments Blood Pressure 121/81 01/27/2015 12:06 PM EDT Pulse 62 01/27/2015 12:06 PM EDT Temperature 37.3 ??C (99.1 ??F) 01/27/2015 10:00 AM EDT Respiratory Rate - - Oxygen [...] encounter Progress Notes Jemima Garcia RN - 01/27/2015 11:13 AM EDT Patient Name: Lindsay Odonnell Patient Age: 34 y.o. Birthdate: 1980 Admit date: 01/27/2015 Attending Physician: No att. providers found INTERVAL HISTORY: Ms. Odonnell is alert & oriented, ambulating without difficulty. She denies any new discomfort, changes, issues, complaints. Wound/Dressing: Guaze dressing on right great toe and left lower calf are D&I. Lindsay Odonnell received hyperbaric oxygen treatment today for non-healing wound right great toedue to hypoxia secondary to Raynauds. 100% cotton clothing in place. Patient checked for non-approved chamber items. Tympanic membranes checked. No redness or perforation noted. Patient assessed and met criteria to proceed with hyperbaric treatment. Safety checklist completed with patient. Grounding strap applied and grounding verified, patient placed in chamber, communications checked. Oj Grant RP/Jemima Garcia RN,CHT administered the treatment and monitored the patient. HYPERBARIC TREATMENT: Number-30 Planned number of treatments-40 Compression Rate: 1.5psi/min Decompression Rate: 2.0 psi/min ALFREDO-2.4 Start Compression Reach Treatment Pressure - 2.4 ALFREDO Air Break Start Air Break Completed Start Decompression Treatment Completed 1007 1022 1107 1117 1152 1204 Sechrist Chamber # 1 Clinical Practice Guideline for Hyperbaric Oxygen Therapy Prevent and manage for potential problems related to 1.Barotrauma, 2.oxygen toxicity, and 3.Pneumothorax. 4. Situational Problems Assessed: ALL (Barotrauma, Oxygen Toxicity, Pneumothorax, Situational) Problems Present: None, (Barotrauma, Oxygen Toxicity, Pneumothorax, Situational) No issues or complaints during or after treatment. Interventions: Per Clinical Practice Guidelines for Hyperbaric Oxygen Therapy through [facility]. No interventions required today. Patient alert and oriented. Ambulating with steady gait. Patient assessed and found appropriate to leave the Hyperbaric area at the conclusion of today???s session. Continue HBOT as planned. Next treatment scheduled for tomorrow, Jan.28 documented in this encounter Plan of Treatment Not on filedocumented as of this encounter Visit Diagnoses Diagnosis Open wound of great toe with damage to n ail, right, subsequent encounter Raynaud's disease Raynaud's syndrome documented in this encounter Care Teams Gm Relationship Specialty Start Date End Date Princess Henley MD PCP - General 03/12/12 04/26/15 [address] [place] [phone] documented as of this encounter
--- OUTSIDE RECORDS SUMMARY | 2022-02-03 15:54 | XMS_ITS | Encounter Summary ---
:1980 Author Organization [facility] Address [address] [place] [address] Care Team Providers Name Role Phone Princess Henley MD Primary Care Provider Encounter Details Date Type Department Care Team Description 02/09/2015 Hospital Encounter [facility] [place], SAMIRA toe with dam [facility], [facility] [place] [place] [phone] Social History Tobacco Use Types Packs/Day Years Used Date Never Smoker Smokeless Tobacco: Never Used Alcohol Use Standard Drinks/Week Comments No 0 (1 standard drink = 0.6 oz pure alcoho l) Sex Assigned at Date Recorded Not on file documented as of this encounter Medications at Time of Discharge [...] as needed. documented as of this encounter Plan of Treatment Not on filedocumented as of this encounter Procedures Procedure Name Priority Date/Time Associated Diagnosis Comme nts JORDYN, LEGS, MULTIPLE Routine 02/09/2015 12:28 PM Open wound of great Results for this LEVELS EDT toe with damage to procedure are in nail, right, the results subsequent encounter section . documented in this encounter Results JORDYN, legs, multiple levels (02/09/2015 12:28 PM EDT) Component Value Ref Test Analysis Performed At [facility] Socialbomb Range Method Time Signature VB Text Department: Vascular Surgery Lab VASCUBASE Report Patient: [id number] (LINDSAY JEAN BAPTISTE) CPT: 49655 ICD10: S91.201D;L97.519;L97.529 Referring Physician: ROBERTA RASHID JR [...] ??No previous study in our vascular lab da tabase for comparison. Electronically Signed by: DENIS STREET [...] encounter documented in this encounter Care Teams Coffee Roaster Relationship Specialty Start Date End Date Princess Henley MD PCP - General 03/12/12 04/26/15 [address] [place] [phone] documented as of this encounter
--- OUTSIDE RECORDS SUMMARY | 2022-02-03 15:54 | XMS_ITS | Encounter Summary ---
:1980 Author Organization [facility] [place] [address] Care Team Providers Name Role Phone Prinecss Henley MD Primary Care Provider Reason for Visit Reason Onset Date Comments Prior Authorization 01/28/2015 Encounter Details Date Type Department Care Team Description 01/28/2015 Telephone Occupational Medicin e at [facility] [place] [address] Social History Tobacco Use Types Packs/Day Years Used Date Never Smoker Smokeless Tobacco: Never Used Alcohol Use Standard Drinks/Week Comments No 0 (1 standard drink = 0.6 oz pure alcoho l) Sex Assigned at Date Recorded Not on file documented as of this encounter Miscellaneous Notes Telephone Encounter - Nivia Larson - 01/28/2015 8:29 AM EDT VERIFIED M406 IS STILL ACTIVE FOR THE MONTH OF , NO PA REQUIRED FOR CONTINUED HBO TX. SERVICES ARE ALLOWABLE BASED ON MED NECESSITY W/NO PA. documented in this encounter Plan of Treatment Not on filedocumented as of this encounter Visit Diagnoses Not on filedocumented in this encounter Care Teams Sergeant Missile Crewman Relationship Specialty Start Date End Date Princess Henley MD PCP - General 03/12/12 04/26/[address] [place] [phone] documented as of this encounter
--- OUTSIDE RECORDS SUMMARY | 2022-02-03 15:54 | XMS_ITS | Encounter Summary ---
:1980 [place] [address] Care Team Providers Name Role Phone Chris Bundy MD Primary Care Provider Encounter Details Date Type Department Care Team Description 06/01/2015 Telephone Wound Care at [facility] [place] [address] Social History Tobacco Use Types Packs/Day Years Used Date Never Smoker Smokeless Tobacco: Never Used Alcohol Use Standard Drinks/Week Comments No 0 (1 standard drink = 0.6 oz pure alcoho l) Sex Assigned at Date Recorded Not on file documented as of this encounter Miscellaneous Notes Telephone Encounter - Tiana Devlin - 06/01/2015 1:51 PM EST Called left message for patient to call back and reschedule missed wound clinic appointment from last week. We are happy to see patient at any time. documented in this encounter Plan of Treatment Not on filedocumented as of this encounter Visit Diagnoses Not on filedocumented in this encounter Care Teams Safety Scientist Relationship Specialty Start Date End Date Chris Bundy MD PCP - General General Internal Medicine 04/27/15 11/29/17 [address] [place] [phone] documented as of this encounter
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
--- OUTSIDE RECORDS SUMMARY | 2022-02-03 15:54 | XMS_ITS | Encounter Summary ---
:1980 Author Organization [facility] Address [facility] [place] [address] Care Team Providers Name Role Phone Princess Henley MD Primary Care Provider Reason for Visit Reason Comments On Treatment Visit HBOT # 25 Encounter Details Date Type Department Care Team Description 01/20/2015 Hospital Encounter [facility] Open wound of great toe Medicine at [facility] with damage to nail, [facility] right, [place] [employer] [address] encounter (Primary Dx) [place] [address] Social History Tobacco Use Types Packs/Day Years Used Date Never Smoker Smokeless Tobacco: Never Used Alcohol Use Standard Drinks/Week Comments No 0 (1 standard drink = 0.6 oz pure alcoho l) Sex Assigned at Date Recorded Not on file documented as of this encounter Last Filed Vital Signs Vital Sign Reading Time Taken Comments Blood Pressure 116/76 01/20/2015 11:03 AM EDT Pulse 52 01/20/2015 11:03 AM EDT Temperature 37.2 ??C (99 ??F) 01/20/2015 9:51 AM EDT Respiratory Rate - - Oxygen Saturation - - Inhaled Oxygen Concentration - - Weight - - Height - - Body Mass Index - - documented in this encounter Medications at Time of Discharge Medication Sig Dispensed Refills Start Date End Date buprenorphine-nalOXone Place 1 Film under 0 01/20 [...] mouth every 8 hours as needed. AFLURIA [id number], PF, 45 0 01/11/2015 01/21/2015 mcg (15 mcg x 3)/0.5 mL Syringe SUBOXONE 12-3 mg Film 0 11/27/201409/2014 SUBOXONE 2-0.5 mg Film 0 11/27/2014 sertraline (ZOLOFT) 100 mg 0 5 02/02/2015 Tablet documented as of this encounter Progress Ellie Mayorga APRN - 01/20/2015 10:07 AM EDT Images from the original note were not included. Patient Name: Lindsay Odonnell Patient Age: 34 y.o. Birthdate: 1980 Admit date: 01/20/2015 Attending Physician: No att. providers found INTERVAL HISTORY: Patient denies any changes or new issues. Visual Change: Denies SOB: Denies Headaches: Denies Cough: Denies Ear Pain: Denies Chest Pain: Denies Cold symptoms: Denies Wound/Dressing: Dressings in place in LLE and right great toe. Pain Level: 3 - 4 (0-10 scale) Right great toe. Lindsay Odonnell received hyperbaric oxygen treatment today [...] treatment and monitored the patient. HYPERBARIC TREATMENT: Number-25 Planned number of treatments-30 Compression Rate: 1.5psi/min Decompression Rate: 2.0 psi/min ALFREDO-2.4 Start Compression Reach Treatment Pressure - ALFREDO Air Break Start Air Break Completed Start Decompression Treatment Completed 0910 1002 1053 1103 1138 1150 [facility] # 1 Clinical Practice [...] HBOT as planned. Next treatment scheduled for 01/21/15. Wound treatment: Post HBOT Cleansed wound with NS. Analgesia: Lidocaine jelly 2% Conservative sharp debridement of devitalized tissue on wound bed to left medial ankle with curette.No other wounds were debrided today. No bleeding post debridement. Patient tolerated treatment well. Dressing: Medi Honey gel to left anterior lower leg,plain mepilex , conform gauze, secured with tape Hydrofera blue Ready to left medial ankle,right great toe and left foot,toe secured with Medipore tape. Assessment/ Plan: Lindsay Odonnell is a 34 y.o. female with multiple wounds to LLE and right great toe. There is erythema to left anterior lower leg periwound. She remains on an oral antibiotic as prescribed per [place] ED. She was advised to call her PCP in am to determine results of wound culture done at ED on 11/09/14. She may need an change in antibiotic therapy but will continue on current antibiotic for now. She was provided with verbal wound care instructions. she will call with any questions or concerns. Wound location Wound bed Measurement Right great toe Jeff tissue 1.0cm x 2.2cm Left medial lower leg Slough mixed with pink tissue, granulation buds 0.2cm x 0.3cm Left anterior lower leg Eschar 2.9cm x 3.0cm Left dorsal foot Jeff tissue to base, yellow wound edges 0.3cm x 0.2cm Undermining/tunneling: No Right great toe Left anterior lower leg Left foot Left medial ankle Right great toe Assessment/ Plan: Lindsay Odonnell is a 34 y.o. female with multiple wounds to LLE and right great toe. There is contnued erythema to left anterior lower leg periwound and right great toe. She has completed her course of oral antibiotics as prescribed per [place] [facility]. ED on 11/09/14. The erythema and edema has decreased from one week ago. She now has eschar to left lower leg wound. Wound care was changed to Medi Honey to promote autolytic debridement. We discussed obtaining ABIs to assess arterial status of lower extremities given her difficulty with healing of wounds. She agreed to POC. Will go aheadand schedule ABIs. Wound dimensions to right great toe have no decreased in 2 weeks however wound bed is clean with pink tissue. Left lower leg medial wound is nearly healed as well as left foot wound. She was provided with verbal wound care instructions. Will continue with HBOT daily. documented in this encounter Plan of Treatment Not on filedocumented as of this encounter Visit Diagnoses Diagnosis Open wound of great toe with damage to n ail, right, subsequent encounter - Primary documented in this encounter Care Teams Retail Pharmacy Manager Relationship Specialty Start Date End Date Princess Henley MD PCP - General 03/12/12 04/26/[address] [place] [phone] documented as of this encounter
--- OUTSIDE RECORDS SUMMARY | 2022-02-03 15:54 | XMS_ITS | Encounter Summary ---
:1980 Author Organization [facility] [place] [address] Care Team Providers Name Role Phone Princess Henley MD Primary Care Provider Reason for Visit Reason Comments On Treatment Visit HBOT#22 Encounter Details Date Type Department Care Team Description 01/14/2015 Hospital Encounter [facility] Open wound of great toe with damage to nail, unspecified laterality, subsequent encounter; Medicine at [facility] [place] [address] Social History Tobacco Use Types Packs/Day Years Used Date Never Smoker Smokeless Tobacco: Never Used Alcohol Use Standard Drinks/Week Comments No 0 (1 standard drink = 0.6 oz pure alcoho l) Sex Assigned at Date Recorded Not on file documented as of this encounter Last Filed Vital Signs Vital Sign Reading Time Taken Comments Blood Pressure 124/64 01/14/2015 2:52 PM EDT Pulse 52 01/14/2015 2:52 PM EDT Temperature 37 ??C (98.6 ??F) 01/14/2015 12:53 PM EDT Respiratory Rate 16 01/14/2015 12:53 PM EDT Oxygen Saturation - - Inhaled [...] mouth every 8 hours as needed. AFLURIA [id number], PF, 45 0 01/11/2015 01/21/2015 mcg (15 [...] encounter Progress Notes Joanne Mattson RN - 01/14/2015 1:10 PM EDT Patient Name: Lindsay Odonnell Patient Age: 34 y.o. Birthdate: 1980 Admit date: 01/14/2015 Attending Physician: No att. providers found INTERVAL HISTORY: Patient denies any new discomfort, changes, issues, complaints. She arrived for her treatment in good spirits. Wound/Dressing: Dressing to right great toe and left lower leg, clean, dry and intact. Pain Level: 6-7 (0-10 scale) She states that this is her baseline level of pain from her wounds. * If greater than 5, document interventions. Education: Lindsay Odonnell received hyperbaric oxygen treatment today for Raynaud's Disease / Open wound ofRight Great Toe Subsequent. 100% cotton clothing in place. Patient checked for non-approved chamber items. Tympanic membranes checked. No redness or perforation noted. Patient assessed and met criteria to proceed with hyperbaric treatment. Safety checklist completed with patient. Grounding strap applied and grounding verified, patient placed in chamber, communications checked. Joanne Mattson RN/Jemima Garcia RN,CHT administered the treatment and monitored the patient. HYPERBARIC TREATMENT: Number- 22 Planned number of treatments- 30 and then will reevaluate Compression Rate: 1.5psi/min Decompression Rate: 2.0 psi/min ALFREDO- 2.4 Start Compression Reach Treatment Pressure - ALFREDO Air Break Start Air Break Completed Start Decompression Treatment Completed 1253 1308 1353 1403 1439 1450 [facility] Chamber # 1 Clinical Practice Guideline [...] [facility] No interventions required today. Pain unchanged from baseline. She called to check on her left leg wound culture and was told that the Cipro that she is on is appropriate. Patient alert and oriented. Ambulating with steady gait. Patient assessed and found appropriate to leave the Hyperbaric area at the conclusion of today???s session. Continue HBOT as planned. Next treatment scheduled for 01/15/15. documented in this encounter Plan of Treatment Not on filedocumented as of this encounter Visit Diagnoses Diagnosis Open wound of great toe with damage to n ail, unspecified laterality, subsequent encounter Raynaud's disease Raynaud's syndrome documented in this encounter Care Teams Shirt Trimmer Relationship Specialty Start Date End Date Princess Henley MD PCP - General 03/12/12 04/26/15 [address] [place] [phone] documented as of this encounter
--- OUTSIDE RECORDS SUMMARY | 2022-02-03 15:54 | XMS_ITS | Encounter Summary ---
:1980 Author Organization [place] [address] Care Team Providers Name Role Phone Princess Henley MD Primary Care Provider Reason for Visit Reason Comments On Treatment Visit HBOT #31 Encounter Details Date Type Department Care Team Description 02/01/2015 Hospital Encounter [facility] for [facility] Open wound of great toe with damage to nail, right, subsequent encounter; [place] [facility] [place] [address] Social History Tobacco Use Types Packs/Day Years Used Date Never Smoker Smokeless Tobacco: Never Used Alcohol Use Standard Drinks/Week Comments No 0 (1 standard drink = 0.6 oz pure alcoho l) Sex Assigned at Date Recorded Not on file documented as of this encounter Last Filed Vital Signs Vital Sign Reading Time Taken Comments Blood Pressure 131/96 02/01/2015 3:00 PM EDT Pulse 68 02/01/2015 3:00 PM EDT Temperature 37.1 ??C (98.8 ??F) 02/01/2015 12:50 PM EDT Respiratory Rate - - [...] encounter Progress Notes Jemima Garcia RN - 02/01/2015 1:28 PM EDT Patient Name: Lindsay Odonnell Patient Age: 34 y.o. Birthdate: 1980 Admit date: 02/01/2015 Attending Physician: Charu att. providers found INTERVAL HISTORY: Ms. Odonnell is alert and oriented, no difficulty ambulating. She denies any new discomfort, changes,issues, complaints. Wound/Dressing: Guaze dressing on right great toe and around left calf are D&I. She has new abrasion on her left knee that occurred the weekend when she fell, this is covered with a large bandaid. Vision screening done today; Snellen Near vision Both eyes 80/20 20/20 Right eye 100/20 20/20 Left eye 100/20 20/20 Refraction Values Right Left Spherical -2.00 -2.50 Cylinder -0.50 -0.50 [place] 147 4 Lindsay Odonnell received hyperbaric oxygen treatment today [...] treatment and monitored the patient. HYPERBARIC TREATMENT: Number-31 Planned number of treatments-40 Compression Rate: 1.5psi/min Decompression Rate: 2.0 psi/min ALFREDO-2.4 Start Compression Reach Treatment Pressure - 2.4 ALFREDO Air Break Start Air Break Completed Start Decompression Treatment Completed 1258 1313 1359 1408 1443 1454 [facility] Chamber # 1 Clinical Practice Guideline [...] as planned. Next treatment scheduled for tomorrow, February 02. documented in this encounter Plan of Treatment Not on filedocumented as of this encounter Visit Diagnoses Diagnosis Open wound of great toe with damage to n ail, right, subsequent encounter Raynaud's disease Raynaud's syndrome documented in this encounter Care Teams Business Technology Analyst Relationship Specialty Start Date End Date Princess Henley MD PCP - General 03/12/12 04/26/[address] [place] [phone] documented as of this encounter
--- OUTSIDE RECORDS SUMMARY | 2022-02-03 15:54 | XMS_ITS | Encounter Summary ---
:1980 Author Organization [facility] Address [facility] [place] [address] Care Team Providers Name Role Phone Princess Henley MD Primary Care Provider Reason for Visit Reason Comments On Treatment Visit HBOT# 36 Encounter Details Date Type Department Care Team Description 02/09/2015 Hospital Encounter Center for [facility]ic Open wound of great [place] Medicine [place] [facility] [place] to [place], [facility] right, [facility] [place] [address] Social History Tobacco Use Types Packs/Day Years Used Date Never Smoker Smokeless Tobacco: Never Used Alcohol Use Standard Drinks/Week Comments No 0 (1 standard drink = 0.6 oz pure alcoho l) Sex Assigned at Date Recorded Not on file documented as of this encounter Last Filed Vital Signs Vital Sign Reading Time Taken Comments Blood Pressure 142/98 02/09/2015 11:50 AM EDT Pulse 58 02/09/2015 11:50 AM EDT Temperature 37 ??C (98.6 ??F) 02/09/2015 9:45 AM EDT Respiratory Rate 16 02/09/2015 9:45 AM EDT Oxygen Saturation - - Inhaled [...] encounter Progress Notes Carlee Bernard RN - 02/09/2015 10:29 AM EDT Patient Name: Lindsay Odonnell Patient Age: 34 y.o. Birthdate: 1980 Admit date: 02/09/2015 Attending Physician: No att. providers found INTERVAL HISTORY: Patient alert and oriented. Ambulating without difficulty. Pt. denies any discomfort, changes, issues, complaints. Lindsay states her right toe wound ..is healing a little bit each day. She continues to change the [place] fera blue dressing daily. Left lower leg guaze dressing clean and intact. Lindsay states she is able to work off small areas of necrotic scab. No cold symptoms, denies any issues with her ears. Lindsay Odonnell received hyperbaric oxygen treatment today [...] treatment and monitored the patient. HYPERBARIC TREATMENT: Number-36 Planned number of treatments-40 Compression Rate: 1.5psi/min Decompression Rate: 2.0 psi/min ALFREDO-2.4 Start Compression Reach Treatment Pressure - ALFREDO Air Break Start Air Break Completed Start Decompression Treatment Completed 4967 1000 0672 1059 1134 1145 [facility] Hospitalist [facility] # 1 Clinical Practice Guideline for Hyperbaric Oxygen Therapy Prevent and manage for potential problems related to 1.Barotrauma, 2.oxygen toxicity, and 3.Pneumothorax. 4. Situational Problems Assessed: ALL (Barotrauma, Oxygen Toxicity, Pneumothorax, Situational) Problems Present: None, (Barotrauma, Oxygen Toxicity, Pneumothorax, Situational) No issues or complaints during or after treatment. Interventions: Per Clinical Practice Guidelines for Hyperbaric Oxygen Therapy through [facility]. No interventions required today. Patient alert and oriented. Ambulating with steady gait. Patient assessed and found appropriate to leave the Hyperbaric area at the conclusion of today???s session. Has appointment for JORDYN's in Vascular Department at 12:30 today. Continue HBOT as planned. Next treatment scheduled for 02/10/15. Wounds will be assessed and treated by Ellie Nagy APRN [facility] after her Hyperbaric treatment tomorrow. documented in this encounter Plan of Treatment Not on filedocumented as of this encounter Visit Diagnoses Diagnosis Open wound of great toe with damage to n ail, right, subsequent encounter documented in this encounter Care Teams Dam Worker Relationship Specialty Start Date End Date Princess Henley MD PCP - General 03/12/12 04/26/15 [address] [place] [phone] documented as of this encounter
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
--- OUTSIDE RECORDS SUMMARY | 2022-02-03 15:54 | XMS_ITS | Encounter Summary ---
:1980 Author Organization [facility] [place] [address] Care Team Providers Name Role Phone Princess Henley MD Primary Care Provider Encounter Details Date Type Department Care Team Description 01/20/2015 Orders Only [facility] for [facility]ic YaEllie pollock, Open wound of great Medicine at [facility] ADULT MANAGER toe with damage to [facility] yonatan l, right, sequela Matt AGUILAR (Primary Dx) [place] [phone] WOUND CENTER [phone] [place] [address] Social History Tobacco Use Types Packs/Day Years [...] toe with damage to n ail, right, sequela - Primary documented in this encounter Care Teams Development Architect Relationship Specialty Start Date End Date Princess Henley MD PCP - General 03/12/12 04/26/[address] [place] [phone] documented as of this encounter
--- OUTSIDE RECORDS SUMMARY | 2022-02-03 15:54 | XMS_ITS | Encounter Summary ---
:1980 Author Organization [facility] Address [address] [place] [address] Care Team Providers Name Role Phone Princess Henley MD Primary Care Provider Reason for Visit Reason Comments On Treatment Visit HBOT # 33 Encounter Details Date Type Department Care Team Description 02/03/2015 Hospital Encounter [facility] Open wound of great toe Medicine at [facility] with damage to nail, [facility] right, [facility] [place] [address] Social History Tobacco Use Types Packs/Day Years Used Date Never Smoker Smokeless Tobacco: Never Used Alcohol Use Standard Drinks/Week Comments No 0 (1 standard drink = 0.6 oz pure alcoho l) Sex Assigned at Date Recorded Not on file documented as of this encounter Last Filed Vital Signs Vital Sign Reading Time Taken Comments Blood Pressure 134/94 02/03/2015 12:01 PM EDT Pulse 62 02/03/2015 12:01 PM EDT Temperature 37 ??C (98.6 ??F) 02/03/2015 9:55 AM EDT Respiratory Rate - - [...] encounter Progress Notes Ellie Nagy APRN - 02/03/2015 10:11 AM EDT Patient Name: Lindsay Odonnell Patient Age: 34 y.o. Birthdate: 1980 Admit date: 02/03/2015 Attending Physician: No att. providers found INTERVAL HISTORY: Patient denies any discomfort, changes, issues, complaints. Visual Change: Denies SOB: Denies Headaches: Denies Cough:Denies Ear Pain: Denies Chest Pain: Denies Cold symptoms:Denies Wound/Dressing:Intact to right great toe and left lower leg Other:Abrasion to left knee, slight erythema, no active drainage Pain Level: 2 right great toe (0-10 scale) Education: Wound care instruction. Lindsay Odonnell received hyperbaric oxygen treatment today for 100% cotton clothing in place. Patient checked for non-approved chamber items. Tympanic membranes checked. No redness or perforation noted. Patient assessed and met criteria to proceed with hyperbaric treatment. Safety checklist completed with patient. Grounding strap applied and grounding verified, patient placed in chamber, communications checked. Ellie Nagy APRN/Jemima Garcia RN,CHT administered the treatment and monitored the patient. HYPERBARIC TREATMENT: Number-33 Planned number of treatments-40 Compression Rate: 1.5psi/min Decompression Rate: 2.0 psi/min ALFREDO-2.4 Start Compression Reach Treatment Pressure - ALFREDO Air Break Start Air Break Completed Start Decompression Treatment Completed 1002 1017 1102 1112 1147 1200 Sechrist Chamber # 1 Clinical Practice Guideline for Hyperbaric Oxygen Therapy Prevent and manage for potential problems related to 1.Barotrauma, 2.oxygen toxicity, and 3.Pneumothorax. 4. Situational Problems Assessed: ALL (Barotrauma, Oxygen Toxicity, Pneumothorax, Situational) Problems Present: None, (Barotrauma, Oxygen Toxicity, Pneumothorax, Situational) No issues or complaints during or after treatment. Interventions: Per Clinical Practice Guidelines for Hyperbaric Oxygen Therapy through [facility]. No interventions required today. Patient alert and oriented. Ambulating with steady gait. Patient assessed and found appropriate to leave the Hyperbaric area at the conclusion of today???s session. Continue HBOT as planned. Next treatment scheduled for 02/04/15 Wound treatment: Post HBOT Left anterior lower leg and right great toe Cleansed wound with NS. Analgesia: Lidocaine jelly 2% Conservative sharp debridement of devitalized tissue on wound bed to left anterior lower leg to remove eschar with curette. No other wounds were debrided today. No bleeding post debridement. Patient tolerated treatment well. Dressing: Medi Honey gel to left anterior lower leg,plain mepilex , conform gauze, secured with tape Promogran, Hydrofera blue Ready to right great toe secured with Medipore tape. Wound location Wound bed Measurement Right great toe [place] tissue 0.6cm x 1.7cm Left medial lower leg [place] tissue 0.2cm x 0.2cm Left anterior lower leg Eschar Entire wound 2.0cm x 2.4cm 3.0cm x 3.3cm Left dorsal foot Healed Healed Undermining/tunneling: No No photos today. Assessment/ Plan: Lindsay Odonnell is a 34 y.o. female with wounds to LLE and right great toe. There is contnued erythema to left anterior lower leg periwound and right great toe with no overt signs of infection. She has eschar to left lower leg wound which is slowly being removed with use of Medi Honey and debridement. Will continue wound care with Medi Honey to promote autolytic debridement. We obtain ABIs to assess arterial status of lower extremities given her difficulty with healing of wounds. Wound dimensions to right great toe have decreased over the past 2 weeks. Will add Promogran to Hydrofera Blue Ready to try and accelerate healing. The wound bed is clean with pink tissue. Left lower leg medial wound is nearly healed and left foot wound has healed. She will continue her own dressing changes to right great toe and left anterior lower leg. She was provided with verbal wound care instructions. She will call with any questions or concerns. Will continue with HBOT daily. documented in this encounter Plan of Treatment Not on filedocumented as of this encounter Visit Diagnoses Diagnosis Open wound of great toe with damage to n ail, right, subsequent encounter documented in this encounter Care Teams Upholstery Cleaner Relationship Specialty Start Date End Date Princess Henley MD PCP - General 03/12/12 04/26/15 [address] [place] [phone] documented as of this encounter
--- OUTSIDE RECORDS SUMMARY | 2022-02-03 15:54 | XMS_ITS | Encounter Summary ---
:1980 Author Organization [facility] [place] [address] Care Team Providers Name Role Phone Princess Henley MD Primary Care Provider Reason for Visit Reason Comments On Treatment Visit HBOT # 26 Encounter Details Date Type Department Care Team Description 01/21/2015 Hospital Encounter [facility] Open wound of great toe with damage to nail, right, subsequent encounter; Medicine at [facility] [place] [address] Social History Tobacco Use Types Packs/Day Years Used Date Never Smoker Smokeless Tobacco: Never Used Alcohol Use Standard Drinks/Week Comments No 0 (1 standard drink = 0.6 oz pure alcoho l) Sex Assigned at Date Recorded Not on file documented as of this encounter Last Filed Vital Signs Vital Sign Reading Time Taken Comments Blood Pressure 119/76 01/21/2015 2:55 PM EDT Pulse 57 01/21/2015 2:55 PM EDT Temperature 37 ??C (98.6 ??F) 01/21/2015 12:50 PM EDT Respiratory Rate - - [...] encounter Progress Notes Jemima Garcia RN - 01/21/2015 1:25 PM EDT Patient Name: Lindsay Odonnell Patient Age: 34 y.o. Birthdate: 1980 Admit date: 01/21/2015 Attending Physician: No att. providers found INTERVAL HISTORY: MS Odonnell is alert & oriented, ambulating without difficulty. She denies any new discomfort, changes, issues, complaints. Wound/Dressing: Dressings on right great toe, left foot, ankle and calf intact. She is changing the dressings once a day. Lindsay Odonnell received hyperbaric oxygen treatment today for non-healing wound of right great toedue to hypoxia secondary to [...] treatment and monitored the patient. HYPERBARIC TREATMENT: Number-26 Planned number of treatments-30 Compression Rate: 1.5psi/min Decompression Rate: 2.0 psi/min ALFREDO-2.4 Start Compression Reach Treatment Pressure - 2.4 ALFREDO Air Break Start Air Break Completed Start Decompression Treatment Completed 1256 1311 1356 1406 1442 1453 [facility] # 1 Clinical Practice Guideline for Hyperbaric Oxygen Therapy Prevent and manage for potential problems related to 1.Barotrauma, 2.oxygen toxicity, and 3.Pneumothorax. 4. Situational Problems Assessed: ALL (Barotrauma, Oxygen Toxicity, Pneumothorax, Situational) Problems Present: None, (Barotrauma, Oxygen Toxicity, Pneumothorax, Situational) No issues or complaints during or after treatment. Interventions: Per Clinical Practice Guidelines for Hyperbaric Oxygen Therapy through [facility]. No interventions required today. Dr. Sheth met with Lindsay and discussed status of her wounds and history of similar wounds and his recommendation that she see dermatology to help determine if there is an underlying reason for these difficult to heal wounds. She agreed to a dermatology consult. Patient alert and oriented. Ambulating with steady gait. Patient assessed and found appropriate to leave the Hyperbaric area at the conclusion of today???s session. Continue HBOT as planned. Next treatment scheduled for tomorrow, . documented in this encounter Plan of Treatment Not on filedocumented as of this encounter Visit Diagnoses Diagnosis Open wound of great toe with damage to n ail, right, subsequent encounter Raynaud's disease Raynaud's syndrome documented in this encounter Care Teams Videotape Sales Representative Relationship Specialty Start Date End Date Princess Henley MD PCP - General 03/12/12 04/26/[address] [place] [phone] documented as of this encounter
--- OUTSIDE RECORDS SUMMARY | 2022-02-03 15:54 | XMS_ITS | Encounter Summary ---
:1980 Author Organization [facility] [place] [address] Care Team Providers Name Role Phone Princess Henley MD Primary Care Provider Encounter Details Date Type Department Care Team Description 02/11/2015 Notes Only [facility] Louie Sheth Jr., [place] [address] [place] [address] [phone] Social History Tobacco Use Types Packs/Day Years Used Date Never Smoker Smokeless Tobacco: Never Used Alcohol Use Standard Drinks/Week Comments No 0 (1 standard drink = 0.6 oz pure alcoho l) Sex Assigned at Date Recorded Not on file documented as of this encounter Progress Notes Pako Sheth Jr., MD - 02/11/2015 7:52 AM EDT Has completed 36 of a planned 40 treatments. Progress has been reviewed and is excellent. Her toe wound has gone from 0.6cm x 1.7cm last week to 0.4cm x 1.6cm this week. Also, she is showingepithelization around the entire wound which is new. Her left medial lower leg, and left dorsal foot wounds are fully healed. Her left anterior leg woundis much improved. The eschar is gone, and is starting to show a granulating base. She has no new clinical developments, and will be seeing dermatology this week. Complications: None Follow up plan: Continue hyperbaric treatments. documented in this encounter Plan of Treatment Not on filedocumented as of this encounter Visit Diagnoses Not on filedocumented in this encounter Care Teams Education Research Analyst Relationship Specialty Start Date End Date Princess Henley MD PCP - General 03/12/12 04/26/[address] [place] [phone] documented as of this encounter
--- NOTE | 2022-02-03 15:55 | DI.RAD_ITS ---
Exam(s) XR PORTABLE CHEST AP EXAM: XR PORTABLE CHEST AP CLINICAL HISTORY: cough fever TECHNIQUE: COMPARISON: CR,XR XR PORTABLE CHEST AP POST LINE from 04/22/2021 FINDINGS: Portable upright chest at 1755 hours. In comparison with prior examination of April 22, 2021, a p reviously noted central venous catheter has been removed. On today's examination, there is increased prominence of pulmonary interstitial markings which is nonspecific. Please correlate regarding the possibility of interstitial pneumonitis. No focal consolidation seen. No pleural effusion seen on t his frontal film. IMPRESSION: Question diffuse mild interstitial pneumonitis versus other causes of interstitial opacity, please co rrelate clinically. Additional evaluation with PA and lateral chest or chest CT may be considered if clinically indicated. RADIATION DOSE DELIVERED: Total DLP
--- OUTSIDE RECORDS SUMMARY | 2022-02-03 15:55 | XMS_ITS | Encounter Summary ---
:1980 Author Organization [facility] [place] [address] Care Team Providers Name Role Phone Princess Henley MD Primary Care Provider Encounter Details Date Type Department Care Team Description 10/30/2012 Abstract Plastic Surgery at [facility] Wanda Bartlett, [place] [address] Social History Tobacco Use Types Packs/Day [...] on filedocumented in this encounter Care Teams Line Worker Relationship Specialty Start Date End Date Princess Henley MD PCP - General 03/12/12 04/26/[address] [place] [phone] documented as of this encounter
--- OUTSIDE RECORDS SUMMARY | 2022-02-03 15:55 | XMS_ITS | Encounter Summary ---
:1980 Author Organization [facility] [place] [address] Care Team Providers Name Role Phone Princess Henley MD Primary Care Provider Reason for Visit Reason Comments On Treatment Visit HBOT #17 Encounter Details Date Type Department Care Team Description 01/06/2015 Hospital Encounter [facility] Open wound of great toe with damage to nail, right, sequela; Medicine [place] [facility] [place] [address] Social History Tobacco Use Types Packs/Day Years Used Date Never Smoker Smokeless Tobacco: Never Used Alcohol Use Standard Drinks/Week Comments No 0 (1 standard drink = 0.6 oz pure alcoho l) Sex Assigned at Date Recorded Not on file documented as of this encounter Last Filed Vital Signs Vital Sign Reading Time Taken Comments Blood Pressure 104/70 01/06/2015 2:50 PM EDT Pulse 65 01/06/2015 2:50 PM EDT Temperature 37.3 ??C (99.1 ??F) 01/06/2015 12:45 PM EDT Respiratory Rate - - Oxygen [...] tablet mouth every 8 hours as needed. clindamycin (CLEOCIN) 300 Take 1 capsule by 21 capsule 1 12/201401/13/2015 mg Capsule mouth 3 times daily for 7 days. SUBOXONE 12-3 mg Film 0 11/27/201409/2014 SUBOXONE 2-0.5 mg Film 0 11/27/2014 sertraline (ZOLOFT) 100 0 10/07/2014 1 mg Tablet terbinafine HCl (LAMISIL) 0 11/06/2014 01/07/2015 250 mg Tablet documented as of this encounter Progress Notes Jemima Garcia RN - 01/06/2015 2:03 PM EDT Patient Name: Lindsay Odonnell Patient Age: 34 y.o. Birthdate: 1980 Admit date: 01/06/2015 Attending Physician: No att. providers found INTERVAL HISTORY: Ms Odonnell is alert & oriented. She denies any new discomfort, changes, issues, complaints. Abraded are on left foot between great toe and 2nd toe continues to be painful. She reports that it has been draining some pus. Redness has localized to an area just around the abrasion. Seen by Dr. Sheth and antibiotics ordered. Post op shoes given to Lindsay to help elevate rubbing from sandals. Wound/Dressing: Guaze dressings on right great toe and medial aspect of left ankle, no drainage or odor present. She is scheduled to see [facility] tomorrow. Lindsay Odonnell received hyperbaric oxygen treatment today for non-healing wound on right great toe due to hypoxia secondary to Raynauds. 100% cotton clothing in place. Patient checked for non-approved chamber items. Tympanic membranes checked. No redness or perforation noted. Patient assessed and met criteria to proceed with hyperbaric treatment. Safety checklist completed with patient. Grounding strap applied and grounding verified, patient placed in chamber, communications checked. Jemima Garcia RN,CHT administered the treatment and monitored the patient. HYPERBARIC TREATMENT: Number-17 Planned number of treatments-20 and then determine if more HBOTs are indicated Compression Rate: 1.5psi/min Decompression Rate: 2.0 psi/min ALFREDO-2.4 Start Compression Reach Treatment Pressure - 2.4 ALFREDO Air Break Start Air Break Completed Start Decompression Treatment Completed 1249 1304 1349 1359 1434 1445 Sechrist Chamber # 1 Clinical Practice Guideline for Hyperbaric Oxygen Therapy Prevent and manage for potential problems related to 1.Barotrauma, 2.oxygen toxicity, and 3.Pneumothorax. 4. Situational Problems Assessed: ALL (Barotrauma, Oxygen Toxicity, Pneumothorax, Situational) Problems Present: None, (Barotrauma, Oxygen Toxicity, Pneumothorax, Situational) No issues or complaints during or after treatment. Interventions: Per Clinical Practice Guidelines for Hyperbaric Oxygen Therapy through [facility]. No interventions required today. Patient alert and oriented. Ambulating with steady gait. Patient assessed and found appropriate to leave the Hyperbaric area at the conclusion of today???s session. Continue HBOT as planned. Next treatment scheduled for tomorrow, January 07. documented in this encounter Plan of Treatment Not on filedocumented as of this encounter Visit Diagnoses Diagnosis Open wound of great toe with damage to n ail, right, sequela Raynaud's disease Raynaud's syndrome documented in this encounter Care Teams [employer] Medic Relationship Specialty Start Date End Date Princess Henley MD PCP - General 03/12/12 04/26/[address] [place] [phone] documented as of this encounter
--- OUTSIDE RECORDS SUMMARY | 2022-02-03 15:55 | XMS_ITS | Encounter Summary ---
:1980 Author Organization [facility] [place] [address] Care Team Providers Name Role Phone Princess Henley MD Primary Care Provider Encounter Details Date Type Department Care Team Description 10/15/2012 Telephone Occupational Therapy at [facility] Lisa Saucedo, OT [facility] [place] [address] PHYSICAL MEDICINE & [phone] [place] [address] Social History Tobacco Use Types Packs/Day Years Used Date Never Smoker Smokeless Tobacco: Never Used Alcohol Use Standard Drinks/Week Comments No 0 (1 standard drink = 0.6 oz pure alcoho l) Sex Assigned at Date Recorded Not on file documented as of this encounter Miscellaneous Notes Telephone Encounter - Lisa Saucedo, OT - 10/15/2012 5:26 PM EDT Patient was unable to stay for her appointment today as she had wait 20 minutes and she had to 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 I tried to call her to discuss plans for follow up and got her who reports they only have one phone and he has it with him out of town, He will try to call the neighbor to get a message to her. Plan: She lives in [place], [place]. She would likely want to go for therapy closer to home. We can fax referral to a therapy clinic of choice. I believe she has had therapy before for her hand an suspect shewill want to return there. If not I believe the [facility] in [place] Has a hand therapist. The contact information is phone and fax . We will fax referral if she agrees to location. documented in this encounter Plan of Treatment Not on filedocumented as of this encounter Visit Diagnoses Not on filedocumented in this encounter Care Teams Oracle Drm Consultant Relationship Specialty Start Date End Date Princess Henley MD PCP - General 03/12/12 04/26/[address] [place] [phone] documented as of this encounter
--- OUTSIDE RECORDS SUMMARY | 2022-02-03 15:55 | XMS_ITS | Encounter Summary ---
:1980 Author Organization [facility] [place] [address] Care Team Providers Name Role Phone Princess Robison MD Primary Care Provider Reason for Visit Reason Comments On Treatment Visit HBOT #21 Encounter Details Date Type Department Care Team Description 01/13/2015 Hospital Encounter [facility] Open wound of great toe with damage to nail, right, subsequent encounter; Medicine at [facility] [place] [address] Social History Tobacco Use Types Packs/Day Years Used Date Never Smoker Smokeless Tobacco: Never Used Alcohol Use Standard Drinks/Week Comments No 0 (1 standard drink = 0.6 oz pure alcoho l) Sex Assigned at Date Recorded Not on file documented as of this encounter Last Filed Vital Signs Vital Sign Reading Time Taken Comments Blood Pressure 115/76 01/13/2015 3:18 PM EDT Pulse 53 01/13/2015 3:18 PM EDT Temperature 37.1 ??C (98.8 ??F) 01/13/2015 1:15 PM EDT Respiratory Rate - - Oxygen [...] mouth every 8 hours as needed. AFLURIA [id number], PF, 45 0 01/11/2015 01/21/2015 mcg (15 [...] as of this encounter Progress Notes Ellie Nagy, [employer] - 01/13/2015 4:01 PM EDT Images from the original note were not included. Patient Name: Lindsay Odonnell Patient Age: 34 y.o. Birthdate: 1980 Admit date: 01/13/2015 Attending Physician: No att. providers found Ms. Odonnell is here today for HBOT. Wound care done post treatment. Wound location Wound bed Measurement Right great toe Fibrin mixed with pink tissue 1.0cm x 2.4cm Left foot-dorsal surface [place] tissue 1.0cm x 0.3cm Left anterior lower leg Slough mixed with pink tissue 3.0cm x 2.3cm Left medial ankle Granulation buds, pink/red tissue Not measured today Undermining/tunneling: No Left anterior lower leg Left medial ankle Dorsal surface left foot Right great toe Wound treatment: Cleansed wound with NS. Analgesia: Lidocaine jelly 2% Conservative sharp debridement of devitalized tissue on wound bed to left medial ankle with curette.No other wounds were debrided today. No bleeding post debridement. Patient tolerated treatment well. Dressing: Medi Honey gel to left foot, plain mepilex secured with Medipore tape Mepilex AG to left anterior lower leg, secured with Kerlix. Hydrofera blue to left medial ankle and right great toe secured with Medipore tape. Tubigrip: Single layer Size G to LLE. Assessment/ Plan: Lindsay Odonnell is a 34 y.o. female with multiple wounds to LLE and right great toe. There is erythema to left anterior lower leg periwound. She remains on an oral antibiotic as prescribed per [place], [place] ED. She was advised to call her PCP in am to determine results of wound culture done at ED on 11/09/14. She may need an change in antibiotic therapy but will continue on current antibiotic for now. She was provided with verbal wound care instructions. she will call with any questions or concerns. Follow up: Daily in Hyperbaric Medicine Patient Instructions: Change dressings daily Remove old dressings Cleanse with Normal saline Apply Medi Honey gel to dorsal left foot wound, cover with plain Mepilex Cover left medial ankle and right great toe with Hydrofera Blue Ready, secure with Medipore tape. Apply Mepilex AG to left anterior lower leg, secure with Kerlix. Tubi hvac controls technician single layer to LLE. Cc: Princess Robison MD [address] [place] [phone] PCP: PRINCESS ROBISON MD (General) Jemima Garcia RN - 01/13/2015 1:42 PM EDT Patient Name: Lindsay Odonnell Patient Age: 34 y.o. Birthdate: 1980 Admit date: 01/13/2015 Attending Physician: No att. providers found INTERVAL HISTORY: Ms Odonnell is alert & oriented, ambulating without difficulty. She denies any discomfort, changes, issues, complaints. Wound/Dressing:Guaze dressings on right great toe, left foot and ankle, are intact, no drainage noted Lindsay Odonnell received hyperbaric oxygen treatment today [...] treatment and monitored the patient. HYPERBARIC TREATMENT: Number-21 Planned number of treatments-30 Compression Rate: 1.5psi/min Decompression Rate: 2.0 psi/min ALFREDO-2.4 Start Compression Reach Treatment Pressure - 2.4 ALFREDO Air Break Start Air Break Completed Start Decompression Treatment Completed 1318 1333 1418 1428 1503 1514 Sechrist Chamber # 1 Clinical Practice Guideline [...] planned. Next treatment scheduled for tomorrow, . CarmenNika Yakov PATEL cared for her wounds after her HBOT, see her note. documented in this encounter Miscellaneous Notes Addendum Note - Ellie Nagy APRN - 01/13/2015 4:18 PM EDTEncounter addended by: Ellie Nagy APRN on: 01/13/2015 4:18 PM
Documentation filed: Clinical Notes documented in this encounter Plan of Treatment Not on filedocumented as of this encounter Visit Diagnoses Diagnosis Open wound of great toe with damage to n ail, right, subsequent encounter Raynaud's disease Raynaud's syndrome documented in this encounter Care Teams Shoe Associate Relationship Specialty Start Date End Date Princess Robison MD PCP - General 03/12/12 04/26/15 [address] [place] [phone] documented as of this encounter
--- OUTSIDE RECORDS SUMMARY | 2022-02-03 15:55 | XMS_ITS | Encounter Summary ---
:1980 Author Organization [facility] [place] [address] Care Team Providers Name Role Phone Princess Henley MD Primary Care Provider Reason for Visit Reason Comments On Treatment Visit HBOT#7 Encounter Details Date Type Department Care Team Description 12/18/2014 Hospital Encounter [facility] Raynaud's disease Medicine at [place] [address] Social History Tobacco Use Types Packs/Day Years Used Date Never Smoker Smokeless Tobacco: Never Used Alcohol Use Standard Drinks/Week Comments No 0 (1 standard drink = 0.6 oz pure alcoho l) Sex Assigned at Date Recorded Not on file documented as of this encounter Last Filed Vital Signs Vital Sign Reading Time Taken Comments Blood Pressure 115/82 12/18/2014 2:53 PM EDT Pulse 54 12/18/2014 2:53 PM EDT Temperature 37.1 ??C (98.8 ??F) 12/18/2014 12:45 PM EDT Respiratory Rate 16 12/18/2014 12:45 PM EDT Oxygen Saturation - - Inhaled Oxygen Concentration - - Weight - - Height - - Body Mass Index - - documented in this encounter Medications at Time of Discharge Medication Sig Dispensed Refills Start Date End Date amLODIPine (NORVASC) 5 mg 0 10/01/2014 Tablet [...] mouth every 8 hours as needed. SUBOXONE 12-3 mg Film 0 11/27/201409/2014 SUBOXONE 2-0.5 mg Film 0 11/27/2014 sertraline (ZOLOFT) 100 mg 0 5 02/02/2015 Tablet terbinafine HCl (LAMISIL) 0 11/06/2014 01/07/2015 250 mg Tablet documented as of this encounter Progress Notes Carlee Bernard RN - 12/18/2014 1:37 PM EDT Patient Name: Lindsay Odonnell Patient Age: 34 y.o. Birthdate: 1980 Admit date: 12/18/2014 Attending Physician: No att. providers found INTERVAL HISTORY: Patient denies any discomfort, changes, issues, complaints. Wound/Dressing: Dressing right great toe and left medial malleolus. Patient reports she has seen some healing on right great toe. Lindsay Odonnell received hyperbaric oxygen treatment today for non healing wound right great toedue to hypoxia secondary to Raynaud's disease. 100% cotton clothing in place. Patient checked for non-approved chamber items. Tympanic membranes checked. No redness, bubbles or perforation noted. Patient assessed and met criteria to proceed with hyperbaric treatment. Safety checklist completed with patient. Grounding strap applied and grounding verified, patient placed in chamber, communications checked. Carlee ARMENTA/Jemima Garcia RN,CHT administered the treatment and monitored the patient. HYPERBARIC TREATMENT: Number-7 Planned number of treatments-20 then re-evaluate Compression Rate: 1.5psi/min Decompression Rate: 2.0 psi/min ALFREDO-2.4 Start Compression Reach Treatment Pressure - ALFREDO Air Break Start Air Break Completed Start Decompression Treatment Completed 1252 1308 1354 1404 1439 1450 Sechrist Chamber # 1 Clinical Practice Guideline for Hyperbaric Oxygen Therapy Prevent and manage for potential problems related to 1.Barotrauma, 2.oxygen toxicity, and 3.Pneumothorax. 4. Situational Problems Assessed: ALL (Barotrauma, Oxygen Toxicity, Pneumothorax, Situational) Problems Present: None, (Barotrauma, Oxygen Toxicity, Pneumothorax, Situational) No issues or complaints during or after treatment. Interventions: Per Clinical Practice Guidelines for Hyperbaric Oxygen Therapy through [facility]. No interventions required today. Patient alert and oriented. Ambulating with steady gait. Patient assessed and found appropriate to leave the Hyperbaric area at the conclusion of today???s session. Continue HBOT as planned. Next treatment scheduled for 12/21/14 documented in this encounter Plan of Treatment Not on filedocumented as of this encounter Visit Diagnoses Diagnosis Raynaud's disease Raynaud's syndrome documented in this encounter Care Teams Rn Hemodialysis Relationship Specialty Start Date End Date Princess Henley MD PCP - General 03/12/12 04/26/[address] [place] [phone] documented as of this encounter
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
--- OUTSIDE RECORDS SUMMARY | 2022-02-03 15:55 | XMS_ITS | Encounter Summary ---
:1980 [place] [address] Care Team Providers Name Role Phone Princess Henley MD Primary Care Provider Encounter Details Date Type Department Care Team Description 09/18/2012 Office Visit Occupational Therapy Kana Saucedo, OT [facility] PHYSICAL MEDICINE & [place] [address] Tendon dysfunction at [facility] [address] Princess eHnley MD [address] [place] [phone] (Primary Dx) [address] [place] [address] Social History Tobacco Use Types Packs/Day Years Used Date Never Smoker Smokeless Tobacco: Never Used Alcohol Use Standard Drinks/Week Comments No 0 (1 standard drink = 0.6 oz pure alcoho l) Sex Assigned at Date Recorded Not on file documented as of this encounter Progress Notes Lisa Saucedo, OT - 10/29/2012 12:41 PM EDT OCCUPATIONAL THERAPY SPLINTING EVALUATION REFERRAL SOURCE: PORFIRIO Lyles/Yan Mo MD DIAGNOSIS: 1. Tendon dysfunction DATE OF INJURY: DATE OF SURGERY: 09/11/12 NEXT MD FOLLOW UP: 10/02/12 TOTAL TREATMENT TIME: 45 Minutes TIMED CODE TREATMENT TIME: Orthotics fitting 40 minutes CURRENT HISTORY: Lindsay Odonnell is a 31 y.o. year old female who is status post left hand tendon transfer 09/13/12. Lindsay Odonnell was seen by PORFIRIO Lyles. Lindsay Odonnell is referred to Occupational Therapy for evaluation and treatment to include splinting - PROM (passive range of motion) (To begin at 4 weeks post for 2 weeks) - AROM (active range of motion) (6 weeks post op) - Dorsal blocking splint today Patient presents today alone. Mechanism of Injury: Patient's symptoms come from post surgery for neurolysis of median and ulnar nerve at left elbow/ combined . Current Symptoms/functional impairments: Patient presents with pain, swelling and stiffness OCCUPATION AND ACTIVITIES Work status: off work Job title/type of work: [employer]. HAND DOMINANCE: Right PAIN: At Rest: 3/10 With Activity: 3-5/10 FUNCTIONAL LIMITATIONS: Lindsay Odonnell identifies difficulty with the following functional activities using the Patient Specific Functional Scale (PSFS): 0/10 (unable to perform) to 10/10 (Able toperform without difficulty) Activity At Evaluation 1.) opening containers 0/10 2.) dressing 4/10 3.) Lifting and carrying 2 handed 0/10 TREATMENT TODAY: Fabricated left dorsal blocking splint Instructed in splint wear and care ASSESSMENT: Lindsay Odonnell presents today with functional limitations due to healing post surgery, pain, limited mobility, edema. Patient has a well fitting splint post therapy. Lindsay Odonnell is able to demonstrate her home exercises with written instructions provided today. Lindsay Odonnell has good potential for gains with therapy. Patient knows to call with any questions or concerns. Long-Term Goals (to be met by discharge): Date Goal Met: 1.) Lindsay Odonnell will complete activities of daily living independently at a 10/10 level. Goal Status: ongoing 2.) Lindsay Odonnell will be able to resume all occupational roles independently without restriction. Goal Status: ongoing Short Term Goals (to be met by end of the visit today): Date Goal Met: 09/18/12 Lindsay Odonnell will demonstrate independence with donning and doffing of splint and verbalization of splinting purpose. Goal Status: Goal met PLAN: The patient is to be seen by PORFIRIO Lyles 10/02/12 for suture removal and again 10/15/17. OT planned for 10/15/12 as will be 4 weeks post and ready to initiate ROM. (X) Lindsay Odonnell participated in the evaluation, collaborated on treatment goals, and agreesto the treatment plan . documented in this encounter Plan of Treatment Not on filedocumented as of this encounter Visit Diagnoses Diagnosis Tendon dysfunction - Primary Unspecified disorder of synovium, tendon , and bursa documented in this encounter Care Teams High Pressure Firer Relationship Specialty Start Date End Date Princess Henley MD PCP - General 03/12/12 04/26/[address] [place] [phone] documented as of this encounter
--- OUTSIDE RECORDS SUMMARY | 2022-02-03 15:55 | XMS_ITS | Encounter Summary ---
:1980 Author Organization [facility] [place] [address] Care Team Providers Name Role Phone Princess Henley MD Primary Care Provider Reason for Visit Reason Comments On Treatment Visit HBOT # 18 Encounter Details Date Type Department Care Team Description 01/07/2015 Hospital Encounter [facility] Open wound of great toe with damage to nail, right, subsequent encounter; Medicine at [facility] [place] [address] Social History Tobacco Use Types Packs/Day Years Used Date Never Smoker Smokeless Tobacco: Never Used Alcohol Use Standard Drinks/Week Comments No 0 (1 standard drink = 0.6 oz pure alcoho l) Sex Assigned at Date Recorded Not on file documented as of this encounter Last Filed Vital Signs Vital Sign Reading Time Taken Comments Blood Pressure 112/73 01/07/2015 2:40 PM EDT Pulse 60 01/07/2015 2:40 PM EDT Temperature 37 ??C (98.6 ??F) 01/07/2015 12:50 PM EDT Respiratory Rate 16 01/07/2015 12:50 PM EDT Oxygen Saturation - - Inhaled [...] encounter Progress Notes Jemima Garcia RN - 01/07/2015 1:22 PM EDT Patient Name: Lindsay Odonnell Patient Age: 34 y.o. Birthdate: 1980 Admit date: (Not on file) Attending Physician: No att. providers found INTERVAL HISTORY: Ms. Odonnell is alert & oriented. Patient denies any new discomfort, changes, issues, complaints. Wound/Dressing:Guaze dressings on right great toe, left ankle, and left foot are d&I. She statesthe abraded area on her left foot between her great toe and 2nd toe is feeling a bit better. She started the antibiotics yesterday afternoon. She is scheduled to see Ellie Ford APRN in the [facility] today after her HBOT. Lindsay Odonnell received hyperbaric oxygen treatment today [...] treatment and monitored the patient. HYPERBARIC TREATMENT: Number-18 Planned number of treatments-20 and then assess healing of great toe to determine if more HBOT are indicated. She is willing to continue with HBOTs. Compression Rate: 1.5psi/min Decompression Rate: 2.0 psi/min ALFREDO-2.4 Start Compression Reach Treatment Pressure - 2.4 ALFREDO Air Break Start Air Break Completed Start Decompression Treatment Completed 1254 1309 1354 1404 1425 1436 Sechrist Chamber # 1 Clinical Practice Guideline for Hyperbaric Oxygen Therapy Prevent and manage for potential problems related to 1.Barotrauma, 2.oxygen toxicity, and 3.Pneumothorax. 4. Situational Problems Assessed: ALL (Barotrauma, Oxygen Toxicity, Pneumothorax, Situational) Problems Present: None, (Barotrauma, Oxygen Toxicity, Pneumothorax, Situational) No issues or complaints during or after treatment. Interventions: Per Clinical Practice Guidelines for Hyperbaric Oxygen Therapy through [facility]. No interventions required today. Patient alert [...] syndrome documented in this encounter Care Teams Ict Help Desk Technician Relationship Specialty Start Date End Date Princess Henley MD PCP - General 03/12/12 04/26/[address] [place] [phone] documented as of this encounter
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
--- OUTSIDE RECORDS SUMMARY | 2022-02-03 15:55 | XMS_ITS | Encounter Summary ---
:1980 Author Organization [facility] [place] [address] Care Team Providers Name Role Phone Princess Henley MD Primary Care Provider Reason for Visit Reason Comments Follow-up 09/12/12 left hand tendon tra nsfer Encounter Details Date Type Department Care Team Description 12/05/2012 Follow-Up Plastic Surgery at Yan Guadarrama MD Tendon dysfunction (Primary Dx); [facility] Ulnar nerve injury, at elbow [facility] DR Gutierrez [place] [address] [place] [address] [phone] (Wo rk) Social History Tobacco Use Types Packs/Day Years Used Date Never Smoker Smokeless Tobacco: Never Used Alcohol Use Standard Drinks/Week Comments No 0 (1 standard drink = 0.6 oz pure alcoho l) Sex Assigned at Date Recorded Not on file documented as of this encounter Last Filed Vital Signs Vital Sign Reading Time Taken Comments Blood Pressure 108/70 12/05/2012 9:39 AM EDT Pulse - - Temperature - - Respiratory Rate - - Oxygen Saturation - - Inhaled Oxygen Concentration - - Weight 63.7 kg (140 lb 6.4 oz) 12/05/2012 9:39 AM EDT Height 165.1 cm (5' 5) 12/05/2012 9:39 AM EDT Body Mass Index 23.36 12/05/2012 9:39 AM EDT documented in this encounter Progress Notes Yan Guadarrama MD - 12/05/2012 9:43 AM EDT Plastic Surgery Post Op Note Reason for visit: F/U status post procedure Date of surgery: 09/13/12 Procedure(s): Left hand tendon transfer Complications: None reported HPI: Pt reports she has been going to therapy twice a week, she has not appreciated any improvement and her knuckles appear to be locked. She is not able to even force them open. She is able to use herthumb. Examination: Patient is alert, conversant, comfortable, ambulating Incision: Healing well, scars evolving positively Hand remains with the fingers in flexion at the DIP joints. Full ROM of thumb Impression: Lindsay Odonnell is a 32 y.o. female was seen today for follow-up after the above procedure. Please see the operative note for details. She is doing well without complaints. She will continue with hand therapy. I advised her that there are procedures which can be performed in the future to improve her function if she does not have any improvement. Plan: 1. Follow up: 6 weeks 2. Continue hand therapy and keep using hand Taylor Ngo, am acting as scribe for Dr Guadarrama. All work documented was performed by Dr Guadarrama. ???I performed the above scribed service and agree with the accuracy of the note?? YAN GUADARRAMA MD documented in this encounter Plan of Treatment Not on filedocumented as of this encounter Visit Diagnoses Diagnosis Tendon dysfunction - Primary Unspecified disorder of synovium, tendon , and bursa Ulnar nerve injury, at elbow Injury to ulnar nerve documented in this encounter Care Teams Nuclear Monitoring Technician Relationship Specialty Start Date End Date Princess Henley MD PCP - General 03/12/12 04/26/[address] [place] [phone] documented as of this encounter
--- OUTSIDE RECORDS SUMMARY | 2022-02-03 15:55 | XMS_ITS | Encounter Summary ---
:1980 Author Organization [facility] [place] [address] Care Team Providers Name Role Phone Princess Henley MD Primary Care Provider Reason for Visit Reason Comments On Treatment Visit HBOT #3 Encounter Details Date Type Department Care Team Description 12/14/2014 Hospital Encounter [facility] Raynaud's disease Medicine at [facility] [place] [address] Social History Tobacco Use Types Packs/Day Years Used Date Never Smoker Smokeless Tobacco: Never Used Alcohol Use Standard Drinks/Week Comments No 0 (1 standard drink = 0.6 oz pure alcoho l) Sex Assigned at Date Recorded Not on file documented as of this encounter Last Filed Vital Signs Vital Sign Reading Time Taken Comments Blood Pressure 114/75 12/14/2014 2:35 PM EDT Pulse 58 12/14/2014 2:35 PM EDT Temperature 37.1 ??C (98.8 ??F) 12/14/2014 12:30 PM EDT Respiratory Rate - - Oxygen [...] tablet mouth every 8 hours as needed. amoxicillin-clavulanate 0 11/25/2014 0 12/17/2014 (AUGMENTIN) 875-125 mg Tablet SUBOXONE 12-3 mg Film 0 11/27/201409/2014 SUBOXONE 2-0.5 mg Film 0 11/27/2014 cephalexin (KEFLEX) 250 mg 0 5 12/17/2014 Capsule sertraline (ZOLOFT) 100 mg 0 5 02/02/2015 Tablet terbinafine HCl (LAMISIL) 0 11/06/2014 01/07/2015 250 mg Tablet documented as of this encounter Progress Notes Jemima Garcia RN - 12/14/2014 1:49 PM EDT Patient Name: Lindsay Odonnell Patient Age: 34 y.o. Birthdate: 1980 Admit date: 12/14/2014 Attending Physician: No att. providers found INTERVAL HISTORY: Patient denies any discomfort, changes, issues, complaints. Wound/Dressing: Guaze dressing on right great toe is dry and intact. She reports that a small area along the edge of her toe wound is healing. Two bandaids are covering wound on medial aspect of left ankle, no drainage seen on them. Plan to have Ellie Nagy APRN evaluate her left ankle wounds on Sunday, 12/16 She states she took some ibuprofen prior to arriving for today's treatment and pain/discomfort is a 1 (on scale of 1 - 10). Lindsay Odonnell received hyperbaric oxygen treatment today for non-healing wound on right great toe due to hypoxia secondary to Raynoud's. 100% cotton clothing in place. Patient checked for non-approved chamber items. Tympanic membranes checked. No redness or perforation noted. Patient assessed and met criteria to proceed with hyperbaric treatment. Safety checklist completed with patient. Grounding strap applied and grounding verified, patient placed in chamber, communications checked. Carlee ARMENTA/Jemima Garcia RN,CHT administered the treatment and monitored the patient. HYPERBARIC TREATMENT: Number-3 Planned number of treatments-20 and then evaluate need for further treatments Compression Rate: 1.5psi/min Decompression Rate: 2.0 psi/min ALFREDO-2.4 Start Compression Reach Treatment Pressure - 2.4 ALFREDO Air Break Start Air Break Completed Start Decompression Treatment Completed 1232 1250 1335 1345 1420 1432 Sechrist Chamber # 1 Clinical Practice Guideline for Hyperbaric Oxygen Therapy Prevent and manage for potential problems related to 1.Barotrauma, 2.oxygen toxicity, and 3.Pneumothorax. 4. Situational Problems Assessed: ALL (Barotrauma, Oxygen Toxicity, Pneumothorax, Situational) Problems Present: None, (Barotrauma, Oxygen Toxicity, Pneumothorax, Situational) No issues or complaints during or after treatment. Interventions: Per Clinical Practice Guidelines for Hyperbaric Oxygen Therapy through [facility]. No interventions needed today. Patient alert and oriented. Ambulating with steady gait.Patient assessed and found appropriate to leave the Hyperbaric area at the conclusion of today???s session. Continue HBOT as planned. Next treatment scheduled for tomorrow, December 15. documented in this encounter Plan of Treatment Not on filedocumented as of this encounter Visit Diagnoses Diagnosis Raynaud's disease Raynaud's syndrome documented in this encounter Care Teams Supervisor Sewing Department Relationship Specialty Start Date End Date Princess Henley MD PCP - General 03/12/12 04/26/[address] [place] [phone] documented as of this encounter
--- OUTSIDE RECORDS SUMMARY | 2022-02-03 15:55 | XMS_ITS | Encounter Summary ---
:1980 Author Organization [facility] Address [facility] [address] [place] [address] Care Team Providers Name Role Phone Princess Henley MD Primary Care Provider Reason for Referral Consultation (Routine) - Complete - Patient Seen (External Appt Consult Notes Rcv'd) Specialty Diagnoses / Procedures Referred By Contact Refer red To Contact Wound Care Diagnoses Open wound of great toe with damage to nail, right, subsequent encounter Pako Sheth Jr., MD Yazinski, Nancy A, APRN [facility] D R [facility] [place] [address] [place] [address] Phone: Fax: Referral ID Status Reason Start Expiration Visits Visits Date Date Requested Authorized [id number] Complete - Consult, 01/07/2015 01/07/2016 3 3 Patient Seen Test & (External Treat Appt Consult Notes Rcv'd) Encounter Details Date Type Department Care Team Description 01/07/2015 Orders Only [facility] Pako Sheth Jr., Open wound of great Medicine at [facility] toe with damage to [facility] yonatan l, right, [place] [address] [place] [id number] [phone] Social History Tobacco Use Types Packs/Day Years Used Date Never Smoker Smokeless Tobacco: Never Used Alcohol Use Standard Drinks/Week Comments No 0 (1 standard drink = 0.6 oz pure alcoho l) Sex Assigned at Date Recorded Not on file documented as of this encounter Plan of Treatment Scheduled Referrals Name Type Priority Associated Diagnoses Order S chedule Referral to Wound Outpatient Referral Routine Open wound of gr eat Ordered: Clinic toe with damage to 5 nail, right, subsequent encounter documented as of this encounter Visit Diagnoses Diagnosis Open wound of great toe with damage to n ail, right, subsequent encounter documented in this encounter Care Teams Rock Loader Relationship Specialty Start Date End Date Princess Henley MD PCP - General 03/12/12 04/26/[address] [place] [phone] documented as of this encounter
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
--- OUTSIDE RECORDS SUMMARY | 2022-02-03 15:55 | XMS_ITS | Encounter Summary ---
:1980 Author Organization [facility] [place] [address] Care Team Providers Name Role Phone Princess Henley MD Primary Care Provider Encounter Details Date Type Department Care Team Description 01/08/2015 Notes Only [facility] Louie Sheth Jr., [place] [address] [place] [address] [phone] Social History Tobacco Use Types Packs/Day Years Used Date Never Smoker Smokeless Tobacco: Never Used Alcohol Use Standard Drinks/Week Comments No 0 (1 standard drink = 0.6 oz pure alcoho l) Sex Assigned at Date Recorded Not on file documented as of this encounter Progress Notes Pako Sheth Jr., MD - 01/08/2015 10:36 AM EDT Has completed 18 of an initial 20 treatments. Progress has been reviewed and is very good. Her wounds are have a base of new granulation tissue. Pictures of the wound taken by Ellie Nagy APRN and entered in medical record. Wound measurements: Right toe wound decreased to 1.0 x 2.2 cm from 1.1. X 3.0 cm over the past week. Left medial wound decreased to 1.4 x 0.9 from 1.5 x 1.0 over the past week The wound on the dorsum of her left foot is improved since starting clindamycin and using different footwear. This is the first significant healing of her wounds that she has seen in years, and continuing hyperbaric oxygen treatments are MEDICALLY NECESSARY in her case. Her right toe wound in particular has shown an area decrease of roughly 33%. Complications: None Follow up plan: Complete 20 treatments and advance to an additional 20 treatments. documented in this encounter Plan of Treatment Not on filedocumented as of this encounter Visit Diagnoses Not on filedocumented in this encounter Care Teams Casino Floor Supervisor Relationship Specialty Start Date End Date Princess Henley MD PCP - General 03/12/12 04/26/[address] [place] [phone] documented as of this encounter
--- OUTSIDE RECORDS SUMMARY | 2022-02-03 15:55 | XMS_ITS | Encounter Summary ---
:1980 Author Organization [facility] [place] [address] Care Team Providers Name Role Phone Princess Henley MD Primary Care Provider Reason for Visit Reason Comments On Treatment Visit HBOT # 12 Encounter Details Date Type Department Care Team Description 12/29/2014 Hospital Encounter [facility], DR YAMEL BENITO Raynaud's disease Medicine at [facility] [place] [phone] Social History Tobacco Use Types Packs/Day Years Used Date Never Smoker Smokeless Tobacco: Never Used Alcohol Use Standard Drinks/Week Comments No 0 (1 standard drink = 0.6 oz pure alcoho l) Sex Assigned at Date Recorded Not on file documented as of this encounter Last Filed Vital Signs Vital Sign Reading Time Taken Comments Blood Pressure 118/80 12/29/2014 2:50 PM EDT Pulse 61 12/29/2014 2:50 PM EDT Temperature 37.1 ??C (98.8 ??F) 12/29/2014 12:45 PM EDT Respiratory Rate - - [...] encounter Progress Notes Jemima Garcia RN - 12/29/2014 1:02 PM EDT Patient Name: Lindsay Odonnell Patient Age: 34 y.o. Birthdate: 1980 Admit date: 12/29/2014 Attending Physician: DR PRAMOD BHATTI INTERVAL HISTORY: Ms Odonnell returns for HBOT today, she was unable to come yesterday due to childcare issues. She is alert & oriented, ambulating well but with a new slight limp due to new swelling and discomfort of her left foot. She reports that it began yesterday. The lateral aspect of the foot is red and swollen and painful. There is a small very superficial abrasion between the great toe and 2nd toe. Her sandals go over these areas. Examined by Dr. Sheth. Area of redness and swelling marked. Redness and swelling did not increase during HBOT, feet were elevated using wedge and 2 pillows. Provided with slipper sock to use at home to minimize use of sandals. Wound/Dressing: Guaze dressings on right great toe and around left ankle. No drainage noted on either of them. She reports that she continues to see healing of the wound on the right great toe. Lindsay Odonnell received hyperbaric [...] treatment and monitored the patient. HYPERBARIC TREATMENT: Number-12 Planned number of treatments-20 and then determine if more are indicated Compression Rate: 1.5psi/min Decompression Rate: 2.0 psi/min ALFREDO-2.4 Start Compression Reach Treatment Pressure - 2.4 ALFREDO Air Break Start Air Break Completed Start Decompression Treatment Completed 1248 1304 1350 1400 1435 1446 [facility] Chamber # 1 Clinical Practice Guideline for Hyperbaric Oxygen Therapy Prevent and manage for potential problems related to 1.Barotrauma, 2.oxygen toxicity, and 3.Pneumothorax. 4. Situational Problems Assessed: ALL (Barotrauma, Oxygen Toxicity, Pneumothorax, Situational) Problems Present: None, (Barotrauma, Oxygen Toxicity, Pneumothorax, Situational) No issues or complaints during or after treatment. Interventions: Per Clinical Practice Guidelines for Hyperbaric Oxygen Therapy through [place]. No interventions required today. Patient alert and oriented. Ambulating with steady gait. Patient assessed and found appropriate to leave the Hyperbaric area at the conclusion of today???s session. Continue HBOT as planned. Next treatment scheduled for tomorrow, Dec.30. documented in this encounter Plan of Treatment Not on filedocumented as of this encounter Visit Diagnoses Diagnosis Raynaud's disease Raynaud's syndrome documented in this encounter Care Teams Radiological Defense Officer Relationship Specialty Start Date End Date Princess Henley MD PCP - General 03/12/12 04/26/[address] [place] [phone] documented as of this encounter
--- OUTSIDE RECORDS SUMMARY | 2022-02-03 15:55 | XMS_ITS | Encounter Summary ---
:1980 Author Organization [facility] [place] [address] Care Team Providers Name Role Phone Princess Henley MD Primary Care Provider Reason for Visit Reason Comments On Treatment Visit HBOT#11 Encounter Details Date Type Department Care Team Description 12/25/2014 Hospital Encounter [facility] Raynaud's disease Medicine at [facility] [place] [address] Social History Tobacco Use Types Packs/Day Years Used Date Never Smoker Smokeless Tobacco: Never Used Alcohol Use Standard Drinks/Week Comments No 0 (1 standard drink = 0.6 oz pure alcoho l) Sex Assigned at Date Recorded Not on file documented as of this encounter Last Filed Vital Signs Vital Sign Reading Time Taken Comments Blood Pressure 114/81 12/25/2014 2:41 PM EDT Pulse 59 12/25/2014 2:41 PM EDT Temperature 37.3 ??C (99.1 ??F) 12/25/2014 12:48 PM EDT Respiratory Rate 18 12/25/2014 12:48 PM EDT Oxygen Saturation - - Inhaled [...] documented as of this encounter Progress Notes Christa Esposito RN - 12/25/2014 12:50 PM EDT Patient Name: Lindsay Odonnell Patient Age: 34 y.o. Birthdate: 1980 Admit date: 12/25/2014 Attending Physician: No att. providers found INTERVAL HISTORY: Patient denies any discomfort, changes, issues, complaints. Arrived to clinic ambulating independently. Visual Change: Denies SOB: none Headaches: none Cough: none present Ear Pain: denies Chest Pain: none Cold symptoms: none Wound/Dressing: Right big toe with gauze and tape. Left ankle with wound dressing intact (foam only-removed acewrap for treatment) Other: Patient now changing dressings at home daily after hyperbaric treatments. Pain Level: 0 * If greater than 5, document interventions. Education: Reviewed process for clearing pressure from ears and notifying RN if discomfort occurs. Lindsay Odonnell received hyperbaric oxygen treatment today for non healing wound right toe due to hypoxia and raynaud's. 100% cotton clothing in place. Patient checked for non-approved chamber items. Tympanic membranes checked. No redness or perforation noted. Patient assessed and met criteria to proceed with hyperbaric treatment. Safety checklist completed with patient. Grounding strap applied and grounding verified, patient placed in chamber, communications checked. Carlee ARMENTA/Christa Esposito RN administered the treatment and monitored the patient. HYPERBARIC TREATMENT: Number-11 Planned number of treatments- 20 Compression Rate: 1.5psi/min Decompression Rate: 2.0 psi/min ALFREDO- 2.4 Start Compression Reach Treatment Pressure - ALFREDO Air Break Start Air Break Completed Start Decompression Treatment Completed 12:44 12:59 13:44 13:55 1430 5321 [facility] # 2 Clinical Practice Guideline for Hyperbaric Oxygen Therapy Prevent and manage for potential problems related to 1.Barotrauma, 2.oxygen toxicity, and 3.Pneumothorax. 4. Situational Problems Assessed: ALL (Barotrauma, Oxygen Toxicity, Pneumothorax, Situational) Problems Present: None, (Barotrauma, Oxygen Toxicity, Pneumothorax, Situational) No issues or complaints during or after treatment. Interventions: Per Clinical Practice Guidelines for Hyperbaric Oxygen Therapy through [facility]. No interventions required today. Patient alert and oriented. Ambulating with steady gait. Patient assessed and found appropriate to leave the Hyperbaric area at the conclusion of today???s session. Denies any changes in pain or discomfort. Alert and oriented. Continue HBOT as planned. Next treatment scheduled for December 28 2014. documented in this encounter Plan of Treatment Not on filedocumented as of this encounter Visit Diagnoses Diagnosis Raynaud's disease Raynaud's syndrome documented in this encounter Care Teams Marketing Programs Manager Relationship Specialty Start Date End Date Princess Henley MD PCP - General 03/12/12 04/26/15 [address] [place] [phone] documented as of this encounter
--- OUTSIDE RECORDS SUMMARY | 2022-02-03 15:55 | XMS_ITS | Encounter Summary ---
:1980 Author Organization [facility] [place] [address] Care Team Providers Name Role Phone Princess Henley MD Primary Care Provider Reason for Visit Reason Comments On Treatment Visit HBOT # 2 Encounter Details Date Type Department Care Team Description 12/09/2014 Hospital Encounter [facility] Raynaud's disease Medicine at [facility] [place] [address] Social History Tobacco Use Types Packs/Day Years Used Date Never Smoker Smokeless Tobacco: Never Used Alcohol Use Standard Drinks/Week Comments No 0 (1 standard drink = 0.6 oz pure alcoho l) Sex Assigned at Date Recorded Not on file documented as of this encounter Last Filed Vital Signs Vital Sign Reading Time Taken Comments Blood Pressure 114/68 12/09/2014 2:59 PM EDT Pulse 77 12/09/2014 2:59 PM EDT Temperature 37 ??C (98.6 ??F) 12/09/2014 2:59 PM EDT Respiratory Rate - - Oxygen [...] encounter Progress Notes Jemima Garcia RN - 12/09/2014 3:16 PM EDT Patient Name: Lindsay Odonnell Patient Age: 34 y.o. Birthdate: 1980 Admit date: 12/09/2014 Attending Physician: No att. providers found INTERVAL HISTORY: Ms. Odonnell arrives for her 2nd HBOT, alert and oriented, ambulating well. She denies any discomfort, changes, issues, complaints. Ear Pain: denies any pain or discomfort in her ears or any other concerns with her ears since her first HBOT. Wound/Dressing: Right great toe is covered with a guaze dressing that is D & I. The small woundson her left ankle are covered with band-aids. These wounds were examined by Vesna Nagy APRN from the [facility]. At the conclusion of today's HBOT Vesna Nagy, cleaned the wounds with saline and applied Mepilex AG secured with Medipore tape. They discussed the need to remove the slough that is present on the lateral wound. Education: reviewed techniques for equalizing pressure in her ears and use of the air break mask. Lindsay Odonnell received hyperbaric oxygen treatment today for non-healing wound onright great toe due to hypoxia secondary to Raynouds disease. 100% cotton clothing in place. Patient checked for non-approved chamber items. Tympanic membranes checked. No redness or perforation noted. Patient assessed and met criteria to proceed with hyperbaric treatment. Safety checklist completed with patient. Grounding strap applied and grounding verified, patient placed in chamber, communications checked. Brady Grant RP/Jemima Garcia RN,CHT administered the treatment and monitored the patient. HYPERBARIC TREATMENT: Number-2 Planned number of treatments-20 and the evaluate need for more treatmens Compression Rate: 1.5psi/min Decompression Rate: 2.0 psi/min ALFREDO-2.4 Start Compression Reach Treatment Pressure - 2.4 ALFREDO Air Break Start Air Break Completed Start Decompression Treatment Completed 1248 1306 1352 1402 1437 1448 [facility] # 1 Clinical Practice Guideline for Hyperbaric Oxygen Therapy Prevent and manage for potential problems related to 1.Barotrauma, 2.oxygen toxicity, and 3.Pneumothorax. 4. Situational Problems Assessed: ALL (Barotrauma, Oxygen Toxicity, Pneumothorax, Situational) Problems Present: None, (Barotrauma, Oxygen Toxicity, Pneumothorax, Situational) No issues or complaints during or after treatment. Interventions: Per Clinical Practice Guidelines for Hyperbaric Oxygen Therapy through [facility]. No interventions were required today. Patient alert and oriented. Ambulating with steady gait.Patient assessed and found appropriate to leave the Hyperbaric area at the conclusion of today???s session. Continue HBOT as planned. Next treatment scheduled for tomorrow, . documented in this encounter Plan of Treatment Not on filedocumented as of this encounter Visit Diagnoses Diagnosis Raynaud's disease Raynaud's syndrome documented in this encounter Care Teams Senior Premium Auditor Relationship Specialty Start Date End Date Princess Henley MD PCP - General 03/12/12 04/26/[address] [place] [phone] documented as of this encounter
--- OUTSIDE RECORDS SUMMARY | 2022-02-03 15:55 | XMS_ITS | Encounter Summary ---
:1980 Author Organization [facility] [place] [address] Care Team Providers Name Role Phone Princess Henley MD Primary Care Provider Encounter Details Date Type Department Care Team Description 01/09/2013 Orders Only Pediatric Neurosurgery Carlee Sandoval U lnar nerve damage at [facility] (Primary Dx) [place] [address] PEDIATRIC SURGERY [phone] [place] [id number] Social History Tobacco Use Types Packs/Day Years Used Date Never Smoker Smokeless Tobacco: Never Used Alcohol Use Standard Drinks/Week Comments No 0 (1 standard drink = 0.6 oz pure alcoho l) Sex Assigned at Date Recorded Not on file documented as of this encounter Plan of Treatment Not on filedocumented as of this encounter Visit Diagnoses Diagnosis 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
--- OUTSIDE RECORDS SUMMARY | 2022-02-03 15:55 | XMS_ITS | Encounter Summary ---
:1980 Author Organization [facility] [place] [address] Care Team Providers Name Role Phone Princess Henley MD Primary Care Provider Reason for Visit Reason Comments On Treatment Visit HBOT #13 Encounter Details Date Type Department Care Team Description 12/30/2014 Hospital Encounter [facility] Raynaud's disease Medicine at [facility] [place] [address] Social History Tobacco Use Types Packs/Day Years Used Date Never Smoker Smokeless Tobacco: Never Used Alcohol Use Standard Drinks/Week Comments No 0 (1 standard drink = 0.6 oz pure alcoho l) Sex Assigned at Date Recorded Not on file documented as of this encounter Last Filed Vital Signs Vital Sign Reading Time Taken Comments Blood Pressure 116/80 12/30/2014 2:50 PM EDT Pulse 62 12/30/2014 2:50 PM EDT Temperature 37 ??C (98.6 ??F) 12/30/2014 12:45 PM EDT Respiratory Rate - - [...] encounter Progress Notes Ellie Nagy APRN - 12/30/2014 2:11 PM EDT Patient Name: Lindsay Odonnell Patient Age: 34 y.o. Birthdate: 1980 Admit date: (Not on file) Attending Physician: No att. providers found INTERVAL HISTORY: Ms. Odonnell is alert & oriented, ambulating well. She denies any new discomfort, changes, issues, complaints. Wound/Dressing: Guaze dressing on Right great toe and around left ankle, no drainage on either of them. Other: Lateral aspect of left foot continues to be red and painful. The redness has not extended beyond area marked yesterday and swelling seems to be less. She reports that the small abraded area between great toe and 2nd toe had some pussy drainage last night. No drainage now. Dr. Sheth examined foot. Ellie Nagy APRN cared for wounds after HBOT, see her note Lindsay Odonnell received hyperbaric oxygen treatment today [...] treatment and monitored the patient. HYPERBARIC TREATMENT: Number-13 Planned number of treatments-20 and then determine if more HBOTs are indicated Compression Rate: 1.5psi/min Decompression Rate: 2.0 psi/min ALFREDO-2.4 Dressing change right great toe: Removed old dressing. Wound measures 1.1cm x 3.0cm Cleansed with normal saline Mepilex AG applied to wound bed, silver for antimicrobial effect and to moderate moisture. Wound bed pink/red with 10% slough Sharmin wound with slight maceration Mepilx AG secured with conform gauze Dressing change to left medial ankle: Removed old dressing Cleansed with normal saline Lidocaine jelly 2% applied to wound bed Dedbrided with curette Wound bed with pink tissue and granulation buds. Wound measures- 1.5cm x 1.0cm Wound to dorsal surface left foot: Scab formation Cleansed with normal saline Medi Honey gel applied to wound and covered with plain mepilex, secured with conform gauze There is periwound erythema that bears watching. Will moniotor daily during HBOT. Consider antibiotic therapy if erythema extends. Consider post op with open toe for right foot. Continue same wound care and re-evaluate in a week. Start Compression Reach Treatment Pressure - 2.4 ALFREDO Air Break Start Air Break Completed Start Decompression Treatment Completed 1252 1307 1352 1402 1438 1449 [facility] # 1 Clinical Practice Guideline for Hyperbaric Oxygen Therapy Prevent and manage for potential problems related to 1.Barotrauma, 2.oxygen toxicity, and 3.Pneumothorax. 4. Situational Problems Assessed: ALL (Barotrauma, Oxygen Toxicity, Pneumothorax, Situational) Problems Present: None, (Barotrauma, Oxygen Toxicity, Pneumothorax, Situational) No issues or complaints during or after treatment. Interventions: Per Clinical Practice Guidelines for Hyperbaric Oxygen Therapy through [facility]. No interventions required today. Patient alert and oriented. Ambulating with steady gait. Patient assessed and found appropriate to leave the Hyperbaric area at the conclusion of today???s session. Continue HBOT as planned. Next treatment scheduled for tomorrow, Dec.31. documented in this encounter Plan of Treatment Not on filedocumented as of this encounter Visit Diagnoses Diagnosis Raynaud's disease Raynaud's syndrome documented in this encounter Care Teams Digital Proofing And Platemaker Relationship Specialty Start Date End Date Princess Henley MD PCP - General 03/12/12 04/26/15 [address] [place] [phone] documented as of this encounter
--- OUTSIDE RECORDS SUMMARY | 2022-02-03 15:55 | XMS_ITS | Encounter Summary ---
:1980 Author Organization [facility] [place] [address] Care Team Providers Name Role Phone Princess Henley MD Primary Care Provider Reason for Visit Reason Comments On Treatment Visit HBOT # 10 Encounter Details Date Type Department Care Team Description 12/24/2014 Hospital Encounter [facility] Raynaud's disease Medicine at [facility] [place] [address] Social History Tobacco Use Types Packs/Day Years Used Date Never Smoker Smokeless Tobacco: Never Used Alcohol Use Standard Drinks/Week Comments No 0 (1 standard drink = 0.6 oz pure alcoho l) Sex Assigned at Date Recorded Not on file documented as of this encounter Last Filed Vital Signs Vital Sign Reading Time Taken Comments Blood Pressure 112/76 12/24/2014 2:57 PM EDT Pulse 64 12/24/2014 2:57 PM EDT Temperature 37.1 ??C (98.8 ??F) 12/24/2014 12:45 PM EDT Respiratory Rate - - [...] encounter Progress Notes Jemima Garcia RN - 12/24/2014 2:18 PM EDT Patient Name: Lindsay Odonnell Patient Age: 34 y.o. Birthdate: 1980 Admit date: 12/24/2014 Attending Physician: No att. providers found INTERVAL HISTORY: Ms. Odonnell is alert & oriented, ambulating without difficulty. Patient denies any new discomfort, changes, issues, complaints. Wound/Dressing: Guaze and tape dressing on right great toe, no drainage noted. Guaze dressing over left ankle is intact, no drainage noted. She will change the dressings tonight after she takes a shower. Lindsay Odonnell received hyperbaric oxygen treatment today for non-healing wound right great toedue to hypoxia secondary to Raynaud's. 100% cotton clothing in place. Patient checked for non-approved chamber items. Tympanic membranes checked. No redness or perforation noted. Patient assessed and met criteria to proceed with hyperbaric treatment. Safety checklist completed with patient. Grounding strap applied and grounding verified, patient placed in chamber, communications checked. Carlee ARMENTA/Jemima Garcia RN,CHT administered the treatment and monitored the patient. HYPERBARIC TREATMENT: Number-1 Planned number of treatments-20 and then determine if more are needed. Compression Rate: 1.5psi/min Decompression Rate: 2.0 psi/min ALFREDO-2.4 Start Compression Reach Treatment Pressure - 2.4 ALFREDO Air Break Start Air Break Completed Start Decompression Treatment Completed 1250 1305 1350 1401 1436 1447 [facility] Chamber # 1 Clinical Practice Guideline for Hyperbaric Oxygen Therapy Prevent and manage for potential problems related to 1.Barotrauma, 2.oxygen toxicity, and 3.Pneumothorax. 4. Situational Problems Assessed: ALL (Barotrauma, Oxygen Toxicity, Pneumothorax, Situational) Problems Present: None, (Barotrauma, Oxygen Toxicity, Pneumothorax, Situational) No issues or complaints during or after treatment. Interventions: Per Clinical Practice Guidelines for Hyperbaric Oxygen Therapy through [facility]. No interventions required today. Post treatment glucose: Patient alert and oriented. Ambulating with steady gait. Patient assessed and found appropriate to leave the Hyperbaric area at the conclusion of today???s session. Continue HBOT as planned. Next treatment scheduled for tomorrow, December 25. documented in this encounter Plan of Treatment Not on filedocumented as of this encounter Visit Diagnoses Diagnosis Raynaud's disease Raynaud's syndrome documented in this encounter Care Teams Vat Cleaner Relationship Specialty Start Date End Date Princess Henley MD PCP - General 03/12/12 04/26/15 [address] [place] [phone] documented as of this encounter
--- OUTSIDE RECORDS SUMMARY | 2022-02-03 15:55 | XMS_ITS | Encounter Summary ---
:1980 Author Organization [facility] [place] [address] Care Team Providers Name Role Phone Princess Henley MD Primary Care Provider Reason for Visit Reason Comments On Treatment Visit HBOT #9 Encounter Details Date Type Department Care Team Description 12/23/2014 Hospital Encounter [facility] Raynaud's disease; Medicine at [facility] Open wound of great toe with damage to nail, right, [place] [address] Social History Tobacco Use Types Packs/Day Years Used Date Never Smoker Smokeless Tobacco: Never Used Alcohol Use Standard Drinks/Week Comments No 0 (1 standard drink = 0.6 oz pure alcoho l) Sex Assigned at Date Recorded Not on file documented as of this encounter Last Filed Vital Signs Vital Sign Reading Time Taken Comments Blood Pressure 118/76 12/23/2014 2:45 PM EDT Pulse 65 12/23/2014 2:45 PM EDT Temperature 37.2 ??C (99 ??F) 12/23/2014 12:42 PM EDT Respiratory Rate - - Oxygen [...] of this encounter Progress Notes Ellie Nagy, ORGANIZATIONAL DEVELOPMENT DIRECTOR - 12/23/2014 12:53 PM EDT Patient Name: Lindsay Odonnell Patient Age: 34 y.o. Birthdate: 1980 Admit date: 12/23/2014 Attending Physician: No att. providers found INTERVAL HISTORY: Patient denies any discomfort, changes, issues, complaints. Visual Change: Denies SOB: Denies Headaches: Denies Cough:Denies Ear Pain: Denies Chest Pain: Denies Cold symptoms:Denies Wound/Dressing:Gauze dressing in place to right great toe. Large band aid in place to left medial ankle. Pain Level: 5/10 Right great toe (0-10 scale) Education: Discussed dressing changes to left ankle and right great toe. Will stop Medi Honey to left medial ankle and change to Mepilex AG secured with gauze and tape. Will try to keep adhesive off skin to reduce erythema. Continue non-adherent dressing to right great toe. This is draining serosanguinous driainage with noodor present. Wound measurements right great toe: 1.1cm L x 3.0cm W. Wound bed with pink tissue, julianna wound with erythema. Left medial ankle wound measurements: 1.4cm L x 3.0 cm W. Wound bed with 99% pink tissue.Painful during debridement with curette. Lidocaine 2% jelly applied to wound bed prior to debridement. Lindsay Odonnell received hyperbaric oxygen treatment today for non-healing wound right great toedue to hypoxia in setting of Raynauds. 100% cotton clothing in place. Patient checked for non-approved chamber items. Tympanic membranes checked. No redness or perforation noted. Patient assessed and met criteria to proceed with hyperbaric treatment. Safety checklist completed with patient. Grounding strap applied and grounding verified, patient placed in chamber, communications checked. Ellie Nagy APRN/Jemima Garcia RN,CHT administered the treatment and monitored the patient. HYPERBARIC TREATMENT: Number-9 Planned number of treatments-20 , then re-evalaute Compression Rate: 1.5psi/min Decompression Rate: 2.0 psi/min ALFREDO-2.4 Start Compression Reach Treatment Pressure - ALFREDO Air Break Start Air Break Completed Start Decompression Treatment Completed 1246 1301 1347 1357 1432 1444 Sechrist Chamber # 1 Clinical Practice Guideline [...] HBOT as planned. Next treatment scheduled for 12/24/14. documented in this encounter Plan of Treatment Not on filedocumented as of this encounter Visit Diagnoses Diagnosis Raynaud's disease Raynaud's syndrome Open wound of great toe with damage to n ail, right, subsequent encounter documented in this encounter Care Teams Exhauster Engineer Relationship Specialty Start Date End Date Princess Henley MD PCP - General 03/12/12 04/26/15 [address] [place] [phone] documented as of this encounter
--- OUTSIDE RECORDS SUMMARY | 2022-02-03 15:55 | XMS_ITS | Encounter Summary ---
:1980 Author Organization [facility] [place] [address] Care Team Providers Name Role Phone Princess Henley MD Primary Care Provider Reason for Visit Reason Comments On Treatment Visit HBOT # 19 Encounter Details Date Type Department Care Team Description 01/08/2015 Hospital Encounter [facility] Open wound of great toe with damage to nail, right, subsequent encounter; Medicine at [facility] [place] [address] Social History Tobacco Use Types Packs/Day Years Used Date Never Smoker Smokeless Tobacco: Never Used Alcohol Use Standard Drinks/Week Comments No 0 (1 standard drink = 0.6 oz pure alcoho l) Sex Assigned at Date Recorded Not on file documented as of this encounter Last Filed Vital Signs Vital Sign Reading Time Taken Comments Blood Pressure 103/66 01/08/2015 2:43 PM EDT Pulse 66 01/08/2015 2:43 PM EDT Temperature 37.4 ??C (99.3 ??F) 01/08/2015 12:40 PM EDT Respiratory Rate - - [...] encounter Progress Notes Jemima Garcia RN - 01/08/2015 1:56 PM EDT Patient Name: Lindsya Odonnell Patient Age: 34 y.o. Birthdate: 1980 Admit date: 01/08/2015 Attending Physician: No att. providers found INTERVAL HISTORY: Ms. Odonnell is alert & oriented, ambulating without difficulty. She denies any new discomfort, changes, issues, complaints. Wound/Dressing: Dressings present on her right great toe and left ankle, she reports have Hydrofera Blue on the wounds. Dressing on left foot has Medihoney under guaze. She was seen in the [facility] yesterday. She is changing her dressings at night. Lindsay Odonnell received hyperbaric oxygen treatment today [...] treatment and monitored the patient. HYPERBARIC TREATMENT: Number-19 Planned number of treatments-30 Compression Rate: 1.5psi/min Decompression Rate: 2.0 psi/min ALFREDO-2.4 Start Compression Reach Treatment Pressure - 2.4 ALFREDO Air Break Start Air Break Completed Start Decompression Treatment Completed 1244 1258 1343 1353 1428 1440 Sechrist Chamber # 1 Clinical Practice Guideline for Hyperbaric Oxygen Therapy Prevent and manage for potential problems related to 1.Barotrauma, 2.oxygen toxicity, and 3.Pneumothorax. 4. Situational Problems Assessed: ALL (Barotrauma, Oxygen Toxicity, Pneumothorax, Situational) Problems Present: None, (Barotrauma, Oxygen Toxicity, Pneumothorax, Situational) No issues or complaints during or after treatment. Interventions: Per Clinical Practice Guidelines for Hyperbaric Oxygen Therapy through [facility]. No interventions required today. Patient alert and oriented. Ambulating with steady gait. Patient assessed and found appropriate to leave the Hyperbaric area at the conclusion of today???s session. Continue HBOT as planned. Next treatment scheduled for Sunday, 2014. documented in this encounter Plan of Treatment Not on filedocumented as of this encounter Visit Diagnoses Diagnosis Open wound of great toe with damage to n ail, right, subsequent encounter Raynaud's disease Raynaud's syndrome documented in this encounter Care Teams Stone Sandblaster Relationship Specialty Start Date End Date Princess Henley MD PCP - General 03/12/12 04/26/15 [address] [place] [phone] documented as of this encounter
--- OUTSIDE RECORDS SUMMARY | 2022-02-03 15:55 | XMS_ITS | Encounter Summary ---
:1980 Author Organization [facility] [place] [address] Care Team Providers Name Role Phone Princess Henley MD Primary Care Provider Reason for Visit Reason Comments On Treatment Visit HBOT#4 Encounter Details Date Type Department Care Team Description 12/15/2014 Hospital Encounter [facility] for [facility]ic Raynaud's disease Medicine at [facility] [place] [address] Social History Tobacco Use Types Packs/Day Years Used Date Never Smoker Smokeless Tobacco: Never Used Alcohol Use Standard Drinks/Week Comments No 0 (1 standard drink = 0.6 oz pure alcoho l) Sex Assigned at Date Recorded Not on file documented as of this encounter Last Filed Vital Signs Vital Sign Reading Time Taken Comments Blood Pressure 115/75 12/15/2014 2:45 PM EDT Pulse 55 12/15/2014 2:45 PM EDT Temperature 37.1 ??C (98.8 ??F) 12/15/2014 12:40 PM EDT Respiratory Rate 16 12/15/2014 12:40 PM EDT Oxygen Saturation - - [...] encounter Progress Notes Carlee Bernard RN - 12/15/2014 1:38 PM EDT Patient Name: Lindsay Odonnell Patient Age: 34 y.o. Birthdate: 1980 Admit date: 12/15/2014 Attending Physician: No att. providers found INTERVAL HISTORY: Patient denies any discomfort, changes, issues, complaints. Pain Level: 1 Patient states, Now is usually my good time. When I get up in the morning and put myfoot down and when my dressing is changed it hurts a lot. (0-10 scale) * If greater than 5, document interventions. Education: Assessed. None required at this time. Lindsay Odonnell received hyperbaric [...] treatment and monitored the patient. HYPERBARIC TREATMENT: Number-4 Planned number of treatments-20 then re-evaluate Compression Rate: 1.5psi/min Decompression Rate: 2.0 psi/min ALFREDO-2.4 Start Compression Reach Treatment Pressure - ALFREDO Air Break Start Air Break Completed Start Decompression Treatment Completed 1244 1301 1346 1356 1432 1442 Sechrist Chamber # 1 Clinical Practice Guideline for Hyperbaric Oxygen Therapy Prevent and manage for potential problems related to 1.Barotrauma, 2.oxygen toxicity, and 3.Pneumothorax. 4. Situational Problems Assessed: ALL (Barotrauma, Oxygen Toxicity, Pneumothorax, Situational) Problems Present: None, (Barotrauma, Oxygen Toxicity, Pneumothorax, Situational) No issues or complaints during or after treatment. Interventions: Per Clinical Practice Guidelines for Hyperbaric Oxygen Therapy through [facility]. Patient alert and oriented. Ambulating with steady gait. Noted to have blotchy, non-raised skin LE's after treatment. Patient denies any puritis or discomfort. Was not aware of anything unusual. Will continue to monitor. Patient assessed and found appropriate to leave the Hyperbaric area at the conclusion of today???s session. Continue HBOT as planned. Next treatment scheduled for 12/16/14. Will have wounds debrided by Vesna Nagy APRN tomorrow. documented in this encounter Plan of Treatment Not on filedocumented as of this encounter Visit Diagnoses Diagnosis Raynaud's disease Raynaud's syndrome documented in this encounter Care Teams Airconditioning Drafting Officer Relationship Specialty Start Date End Date Princess Henley MD PCP - General 03/12/12 04/26/[address] [place] [phone] documented as of this encounter
--- OUTSIDE RECORDS SUMMARY | 2022-02-03 15:55 | XMS_ITS | Encounter Summary ---
:1980 Author Organization [facility] [place] [address] Care Team Providers Name Role Phone Princess Henley MD Primary Care Provider Reason for Visit Reason Comments On Treatment Visit HBOT # 20 Encounter Details Date Type Department Care Team Description 01/12/2015 Hospital Encounter [facility] Open wound of great toe with damage to nail, right, subsequent encounter; Medicine at [facility] [place] [address] Social History Tobacco Use Types Packs/Day Years Used Date Never Smoker Smokeless Tobacco: Never Used Alcohol Use Standard Drinks/Week Comments No 0 (1 standard drink = 0.6 oz pure alcoho l) Sex Assigned at Date Recorded Not on file documented as of this encounter Last Filed Vital Signs Vital Sign Reading Time Taken Comments Blood Pressure 123/82 01/12/2015 2:45 PM EDT Pulse 62 01/12/2015 2:45 PM EDT Temperature 37.2 ??C (99 ??F) 01/12/2015 12:43 PM EDT Respiratory Rate 16 01/12/2015 12:43 PM EDT Oxygen Saturation - - Inhaled Oxygen Concentration - - Weight - - Height - - Body Mass Index - - documented in this encounter Medications at Time of Discharge Medication Sig Dispensed Refills Start Date End Date vitamin E (VITAMIN E) Take 400 Units by 0 400 unit Capsule mouth daily. amLODIPine (NORVASC) 5 0 10/01/2014 mg Tablet VITAMIN C 500 mg Tablet 0 10/01/2014 ferrous sulfate 325 mg 0 10/01/2014 (65 mg iron) Tablet multivitamin (THERAGRAN) 0 10/01/2014 Tablet norgestimate-ethinyl Take 1 tablet by 0 estradiol (ORTHO mouth daily. TRI-CYCLEN, 28,) 0.18/0.215/0.25 mg-35 mcg (28) tablet ibuprofen (ADVIL;MOTRIN) Take 1 tablet by 30 tablet 2 09/19 800 mg tablet mouth every 8 hours as needed. AFLURIA [id number], PF, 0 01/11/2015 45 mcg (15 mcg x 3)/0.5 mL Syringe ciprofloxacin HCl Take 500 mg by mouth 0 01/11/20 15 01/17/2015 (CIPRO) 500 mg 2 times daily. TabletIndications: skin Indications: Skin and skin structure and Skin Structure infection Infection clindamycin (CLEOCIN) Take 1 capsule by 21 capsule 1 015 01/13/2015 300 mg Capsule mouth 3 times daily for 7 days. SUBOXONE 12-3 mg Film 0 11/27/201409/2014 SUBOXONE 2-0.5 mg Film 0 11/27/2014 sertraline (ZOLOFT) 100 0 10/07/2014 1 mg Tablet documented as of this encounter Progress Notes Carlee Bernard RN - 01/12/2015 12:57 PM EDT Patient Name: Lindsay Odonnell Patient Age: 34 y.o. Birthdate: 1980 Admit date: 01/12/2015 Attending Physician: No att. providers found INTERVAL HISTORY: Patient arrived alert and oriented, ambulating independently. Wearing sandles with straps to avoid rubbing between toes. Patient reports she went to the ER on Sunday. My left leg wound where my leg got shut in the car door blistered and popped and the leg got red and swollen. They put me on another antibiotic and sent cultures but they're not back yet. Patient notes erythema is less. She has not changed the dressing yet today. Patient denies fever, chills, aches. No foul odor noted. Ear Pain: Denies any issues with ears. Wound/Dressing: Right great toe: hydroferra blue dressing wrapped with guaze and tape. Patient reports this is stable and she changes dressing daily. Left dorsal foot between great toe and 2nd toe: dressed with medihoney. Patient feels is healing. Left medial ankle:dressed with hydroferra blue dressing and wrapped with guaze. Left lower anterolateral leg wound covered with non-adhesive dressing and wrapped in guaze. Skin slightly pink above dressing. (see above) Pain Level: 2-3 (0-10 scale) * If greater than 5, document interventions. Education: Reminded pt. to notify provider with any increased pain, fever, chills, aches, increased swelling, redness, foul odor from wound. Reinforced importance of coming for her daily HBO treatments. Lindsay Odonnell received hyperbaric oxygen treatment today for non-healing wound right great toedue to hypoxia secondary to Raynaud's disease. 100% cotton clothing in place. Patient checked for non-approved chamber items. Tympanic membranes checked. No redness, blisters or perforation noted. Patient assessed and met criteria to proceed with hyperbaric treatment. Safety checklist completed with patient. Grounding strap applied and grounding verified, patient placed in chamber, communications checked. Carlee ARMENTA/Jemima Garcia RN,CHT administered the treatment and monitored the patient. HYPERBARIC TREATMENT: Number-20 Planned number of treatments-30 Compression Rate: 1.5psi/min Decompression Rate: 2.0 psi/min ALFREDO 2.4 Start Compression Reach Treatment Pressure - ALFREDO Air Break Start Air Break Completed Start Decompression Treatment Completed 1245 1301 1356 1406 1432 1443 Sechrist Chamber # 1 Clinical Practice Guideline for Hyperbaric Oxygen Therapy Prevent and manage for potential problems related to 1.Barotrauma, 2.oxygen toxicity, and 3.Pneumothorax. 4. Situational Problems Assessed: ALL (Barotrauma, Oxygen Toxicity, Pneumothorax, Situational) Problems Present: None, (Barotrauma, Oxygen Toxicity, Pneumothorax, Situational) No issues or complaints during or after treatment. Interventions: Per Clinical Practice Guidelines for Hyperbaric Oxygen Therapy through [facility]. No interventions required today. Patient alert and oriented. Ambulating with steady gait. Patient assessed and found appropriate to leave the Hyperbaric area at the conclusion of today???s session. Continue HBOT as planned. Next treatment scheduled for 01/13/15. Patient reports she may not be able to make her appointment tomorrow. Dannie has a well-child check that coincides with time of HBOT. Have made appointment with Ellie Nagy APRN in the [facility] for Sunday at 15:30 following HBOT. Patient aware and will call in the AM to confirm her schedule. documented in this encounter Plan of Treatment Not on filedocumented as of this encounter Visit Diagnoses Diagnosis Open wound of great toe with damage to n ail, right, subsequent encounter Raynaud's disease Raynaud's syndrome documented in this encounter Care Teams Break Out Worker Relationship Specialty Start Date End Date Princess Henley MD PCP - General 03/12/12 04/26/[address] [place] [phone] documented as of this encounter
--- OUTSIDE RECORDS SUMMARY | 2022-02-03 15:55 | XMS_ITS | Encounter Summary ---
:1980 Author Organization [facility] [place] [address] Care Team Providers Name Role Phone Princess Henley MD Primary Care Provider Reason for Visit Reason Onset Date Comments Medication Refill 09/19/2012 Encounter Details Date Type Department Care Team Description 09/19/2012 Refill Plastic Surgery at [facility] Yan Henriquez MD [facility] [place] [address] PLASTIC SURGERY [phone] [place], [place] [address] (Wo rk) Social History Tobacco [...] on filedocumented in this encounter Care Teams Voltmeter Operator Relationship Specialty Start Date End Date Princess Henley MD PCP - General 03/12/12 04/26/[address] [place] [phone] documented as of this encounter
--- OUTSIDE RECORDS SUMMARY | 2022-02-03 15:55 | XMS_ITS | Encounter Summary ---
:1980 Author Organization [facility] [address] Care Team Providers Name Role Phone Princess Henley MD Primary Care Provider Encounter Details Date Type Department Care Team Description 09/06/2012 Hospital Encounter Radiology at [facility] [place] [address] Social History Tobacco Use Types Packs/Day [...] mouth 2 times daily for 10 days. OXYcodone 10 mg Tab Take 10-15 mg by 50 tablet 0 09/14/2012 09/14/2012 mouth every 3 hours as needed for Pain. buprenorphine-naloxone Place 2 tablets 0 09/14/2012 (SUBOXONE) 8-2 mg Subl under the tongue daily. acetaminophen (TYLENOL) Take 2 tablets by 30 tablet 0 09/0409/18/2012 325 mg tablet mouth every 4 hours as needed for Pain (mild pain). buprenorphine (SUBUTEX) 2 Place 4 tablets 1 tablet 0 09/0409/14/2012 mg Subl under the tongue 2 times daily. ibuprofen (ADVIL;MOTRIN) Take 1 tablet by 30 tablet 0 09/0409/14/2012 600 mg tablet mouth every 6 hours as needed for Pain (mild to moderate pain). documented as of this encounter Procedure Notes Christiano Heller MD - 09/06/2012 11:05 AM EDT Procedure: Right IJ vein 4 Fr sheath placement Acc#: [id number] Indication: Poor venous access, needs contrast MRI Technique and findings: right neck sterilely prepped and draped after informed consent. Local anesthesia with 1 % lidocaine. 21 ga needle advanced into the right IJ vein. 018 wire advanced. Coaxial micropuncture dilator advanced and inner dilator/wire removed. Catheter flushed and aspirated easily. Secure with tape and returned to MRI for scan. EBL: 1 cc Impression: Right IJ vein 4 Fr sheath placement IR Fellow: Marshall Arauz MD Attending: Sarah Heller MD (I was present for the procedure) documented in this encounter Plan of Treatment Not on filedocumented as of this encounter Visit Diagnoses Not on filedocumented in this encounter Care Teams Boat Puller Relationship Specialty Start Date End Date Princess Henley MD PCP - General 03/12/12 04/26/[address] [place] [phone] documented as of this encounter
--- OUTSIDE RECORDS SUMMARY | 2022-02-03 15:55 | XMS_ITS | Encounter Summary ---
:1980 Author Organization [facility] [place] [address] Care Team Providers Name Role Phone Princess Henley MD Primary Care Provider Reason for Visit Reason Comments On Treatment Visit HBOT #16 Encounter Details Date Type Department Care Team Description 01/05/2015 Hospital Encounter [facility] Open wound of great toe with damage to nail, right, sequela; Medicine at [facility] [place] [address] Social History Tobacco Use Types Packs/Day Years Used Date Never Smoker Smokeless Tobacco: Never Used Alcohol Use Standard Drinks/Week Comments No 0 (1 standard drink = 0.6 oz pure alcoho l) Sex Assigned at Date Recorded Not on file documented as of this encounter Last Filed Vital Signs Vital Sign Reading Time Taken Comments Blood Pressure 114/78 01/05/2015 2:40 PM EDT Pulse 62 01/05/2015 2:40 PM EDT Temperature 37.5 ??C (99.5 ??F) 01/05/2015 12:35 PM EDT Respiratory Rate - - Oxygen [...] encounter Progress Notes Jemima Garcia RN - 01/05/2015 1:52 PM EDT Patient Name: Lindsay Odonnell Patient Age: 34 y.o. Birthdate: 1980 Admit date: 01/05/2015 Attending Physician: No att. providers found INTERVAL HISTORY: Patient denies any new discomfort, changes, issues, complaints. Wound/Dressing: Guaze dressings in place on right great toe and left ankle dry and intact. Abraded area on left foot between great toe and 2nd toe appears to be slightly opened. The area immediately around it is reddened and she reports that it is very tender. She has been putting Medihoney on it. examined foot. She continues to wear sandals that rub on affected area. Lindsay Odonnell received hyperbaric oxygen treatment today [...] treatment and monitored the patient. HYPERBARIC TREATMENT: Number-16 Planned number of treatments-20 and then determine if more are needed. Compression Rate: 1.5psi/min Decompression Rate: 2.0 psi/min ALFREDO-2.4 Start Compression Reach Treatment Pressure - 2.4 ALFREDO Air Break Start Air Break Completed Start Decompression Treatment Completed 1240 1254 1340 1350 1425 1437 Sechrist Chamber # 1 Clinical Practice Guideline for Hyperbaric Oxygen Therapy Prevent and manage for potential problems related to 1.Barotrauma, 2.oxygen toxicity, and 3.Pneumothorax. 4. Situational Problems Assessed: ALL (Barotrauma, Oxygen Toxicity, Pneumothorax, Situational) Problems Present: None, (Barotrauma, Oxygen Toxicity, Pneumothorax, Situational) No issues or complaints during or after treatment. Interventions: Per Clinical Practice Guidelines for Hyperbaric Oxygen Therapy through [facility]. No interventions required today. Patient alert and oriented. Ambulating with steady gait. Patient assessed and found appropriate to leave the Hyperbaric area at the conclusion of today???s session. Continue HBOT as planned. Next treatment scheduled for tomorrow, Jan.06. documented in this encounter Plan of Treatment Not on filedocumented as of this encounter Visit Diagnoses Diagnosis Open wound of great toe with damage to n ail, right, sequela Raynaud's disease Raynaud's syndrome documented in this encounter Care Teams Ironer Relationship Specialty Start Date End Date Princess Henley MD PCP - General 03/12/12 04/26/[address] [place] [phone] documented as of this encounter
--- OUTSIDE RECORDS SUMMARY | 2022-02-03 15:55 | XMS_ITS | Encounter Summary ---
:1980 Author Organization [facility] [place] [address] Care Team Providers Name Role Phone Princess Henley MD Primary Care Provider Encounter Details Date Type Department Care Team Description 09/14/2012 Orders Only General Surgery at [facility] Chris Vasquez MD [facility] [place] [address] GENERAL SURGERY [phone] [place], [place] [address] (Wo rk) Social History Tobacco Use Types [...] on filedocumented in this encounter Care Teams Trailer Driver Relationship Specialty Start Date End Date Princess Henley MD PCP - General 03/12/12 04/26/[address] [place] [phone] documented as of this encounter
--- OUTSIDE RECORDS SUMMARY | 2022-02-03 15:55 | XMS_ITS | Encounter Summary ---
:1980 Author Organization [facility] [address] Care Team Providers Name Role Phone Princess Henley MD Primary Care Provider Reason for Referral Occupational Therapy (Routine) - Closed Specialty Diagnoses / Procedures Referred By Contact Refer red To Contact Occupational Therapy Diagnoses Median nerve injury Tendon dysfunction Other specified aftercare following surgery Ella Skinner APRN [facility] [place] [address] [place] [address] Phone: Fax: Referral ID Status Reason Start Date Expiration Date Visits V isits Requested Authorized [id number] Closed Evaluate and 09/18/2012 03/17/2013 1 1 Treat Reason for Visit Reason Comments Follow Up Surgery tendon repair Encounter Details Date Type Department Care Team Description 09/18/2012 Office Visit Plastic Surgery at [facility] [employer] n nerve injury, at the elbow (Primary Dx); [facility] Tendon dysfunction; Critical access hospital Oth er specified aftercare following surgery [facility] [address] [place] PLASTIC SURGERY [address] [place] [address] [phone] Social History Tobacco Use Types Packs/Day Years Used Date Never Smoker Smokeless Tobacco: Never Used Alcohol Use Standard Drinks/Week Comments No 0 (1 standard drink = 0.6 oz pure alcoho l) Sex Assigned at Date Recorded Not on file documented as of this encounter Patient Instructions Patient InstructionsLeny Gutierrez RN - 09/18/2012 2:53 PM EDT Splint provided today Return the first week of September for suture removal Return the week of October 14 for check and Occupational Therapy to begin Passive Range Of Motion After 2 weeks of Passive range of Motion, you will begin Active Range of Motion Return 8 weeks post surgery to see documented in this encounter Progress Notes Ella Skinner APRN - 09/18/2012 2:39 PM EDT Plastic Surgery Post Op Note Reason for visit: F/U status post procedure Date of surgery: 09/13/12 Procedure(s): Left hand tendon transfer Complications: None reported HPI: Pt reports she is well. She reports her pain is 4/10. She has been taking Ibuprofen and Oxycodone for her pain control. Examination: Patient is alert, conversant, comfortable, ambulating Incision: CDI, well approximated, no signs of infection or wound dehiscence No collection, no erythema, no evidence of cellulitis. Diminished sensations in finger tips Impression: Lindsay Odonnell is a 31 y.o. female was seen today for follow-up after the above procedure. Please see the operative note for details. She is doing well without complaints. Plan: 1. Follow up: Week of September 30 for suture removal, and week of October 14, coordinated with OT 2. To OT today for splinting, Continue splinting until next appointment 3. At 4 weeks post op begin passive ROM, at 6 weeks post op active ROM 4. Ibuprofen 800 mg's every 8 hours and start weaning off the oxycodone. 5. Keep hand elevated Dr. Henriquez in to examine patient. He agrees with this assessment and plan. I, Taylor Alberto, am acting as scribe for Ella Skinner. All work documented was performed by Ella Skinner. ???I performed the above scribed service and agree with the accuracy of the note?? PORFIRIO Lyles documented in this encounter Plan of Treatment Scheduled Referrals Name Type Priority Associated Order Schedule Diagnoses Referral to Outpatient Referral Routine Median nerve Ordered: Occupational Therapy injury, at the 09/18 elbow Tendon dysfuncti on Other specified aftercare following surgery documented as of this encounter Visit Diagnoses Diagnosis Median nerve injury, at the elbow - Prim benton Injury to median nerve Tendon dysfunction Unspecified disorder of synovium, tendon , and bursa Other specified aftercare following surg swetha documented in this encounter Care Teams Cotton Weigher Operator Relationship Specialty Start Date End Date Princess Henley MD PCP - General 03/12/12 04/26/15 [address] [place] [phone] documented as of this encounter
--- OUTSIDE RECORDS SUMMARY | 2022-02-03 15:55 | XMS_ITS | Encounter Summary ---
:1980 Author Organization [facility] [place] [address] Care Team Providers Name Role Phone Princess Henley MD Primary Care Provider Encounter Details Date Type Department Care Team Description 01/06/2015 Orders Only [facility], Louie Rivera Jr., [place] [address] [place] [address] [phone] Social History Tobacco Use Types Packs/Day Years [...] on filedocumented in this encounter Care Teams Barber Apprentice Relationship Specialty Start Date End Date Princess Henley MD PCP - General 03/12/12 04/26/[address] [place] [phone] documented as of this encounter
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
--- OUTSIDE RECORDS SUMMARY | 2022-02-03 15:55 | XMS_ITS | Encounter Summary ---
:1980 Author Organization [facility] [place] [address] Care Team Providers Name Role Phone Princess Henley MD Primary Care Provider Reason for Visit Reason Comments On Treatment Visit HBOT # 6 Encounter Details Date Type Department Care Team Description 12/17/2014 Hospital Encounter [facility] Raynaud's disease Medicine at [facility] [place] [address] Social History Tobacco Use Types Packs/Day Years Used Date Never Smoker Smokeless Tobacco: Never Used Alcohol Use Standard Drinks/Week Comments No 0 (1 standard drink = 0.6 oz pure alcoho l) Sex Assigned at Date Recorded Not on file documented as of this encounter Last Filed Vital Signs Vital Sign Reading Time Taken Comments Blood Pressure 118/80 12/17/2014 2:50 PM EDT Pulse 58 12/17/2014 2:50 PM EDT Temperature 37.1 ??C (98.8 ??F) 12/17/2014 12:45 PM EDT Respiratory Rate - - [...] encounter Progress Notes Jemima Garcia RN - 12/17/2014 2:18 PM EDT Patient Name: Lindsay Odonnell Patient Age: 34 y.o. Birthdate: 1980 Admit date: 12/17/2014 Attending Physician: No att. providers found INTERVAL HISTORY: Ms. Odonnell is ambulating independently, and is alert & oriented. She denies any discomfort, changes, issues, complaints. Wound/Dressing: Right great toe is covered in a guaze bandage, no drainage noted. Wound on medial aspect of left ankle is covered with a band-aid, no drainage noted. Lindsay Odonnell received hyperbaric oxygen treatment today [...] treatment and monitored the patient. HYPERBARIC TREATMENT: Number-6 Planned number of treatments-20 and then determine if further treatments are needed. Compression Rate: 1.5psi/min Decompression Rate: 2.0 psi/min ALFREDO-2.4 Start Compression Reach Treatment Pressure - 2.4 ALFREOD Air Break Start Air Break Completed Start Decompression Treatment Completed 1252 1307 1352 1402 1438 1449 Secist Chamber # 1 Clinical Practice Guideline for [...] syndrome documented in this encounter Care Teams Authorizer Relationship Specialty Start Date End Date Princess Henley MD PCP - General 03/12/12 04/26/[address] [place] [phone] documented as of this encounter
--- OUTSIDE RECORDS SUMMARY | 2022-02-03 15:55 | XMS_ITS | Encounter Summary ---
:1980 Author Organization [facility] [place] [address] Care Team Providers Name Role Phone Princess Henley MD Primary Care Provider Reason for Visit Reason Comments Follow Up Surgery ulnar/median neuropathy Encounter Details Date Type Department Care Team Description 09/06/2012 Follow-Up Plastic Surgery at Yan Henriquez MD Infection (Primary Dx); [facility] Nerve injury [facility] [address] Gutier[place] [address] [place] [address] [phone] (Wo rk) Social History Tobacco Use Types Packs/Day Years Used Date Never Smoker Smokeless Tobacco: Never Used Alcohol Use Standard Drinks/Week Comments No 0 (1 standard drink = 0.6 oz pure alcoho l) Sex Assigned at Date Recorded Not on file documented as of this encounter Progress Notes Yan Henriquez MD - 09/07/2012 1:07 PM EDT Patient was seen today and had an MRI We discussed tendon transfers for her left hand. When MRI is done I will call her with results. documented in this encounter Plan of Treatment Not on filedocumented as of this encounter Procedures Procedure Name Priority Date/Time Associated Diagnosis Comme nts IR TUNNELED CENTRAL Routine 09/06/2012 11:10 AM Infection R esults for this VENOUS ACCESS EDT procedure are in NON-DIALYSIS the results section. documented in this encounter Results IR centeral venous access (09/06/2012 11:10 AM EDT) Anatomical Region Laterality Modality Chest, Vascular X-Ray Angiography Specimen (Source) Anatomical Collection Method Collection Time Re ceived Time Location / / Volume Laterality 09/06/2012 11:10 AM EDT Impressions 09/07/2012 12:12 PM EDT Impression: Right IJ vein 4 Fr sheath placement ?? IR Fellow: Marshall Arauz MD ?? Attending: Sarah Heller MD (I was pres ent for the procedure) ?? Film and interpretation reviewed by the attending Narrative 09/07/2012 12:12 PM EDT Acc#: [id number] ?? Indication: Poor venous access, needs co ntrast MRI ?? Technique and findings: right neck steri jero prepped and draped after informed consent. Local anesthesia with 1 % lidoc skip. 21 ga needle advanced into the right IJ vein. 018 wire advanced. Coax ial micropuncture dilator advanced and inner dilator/wire removed. Catheter flu shed and aspirated easily. Secure with tape and returned to MRI for scan. ?? EBL: 1 cc ?? Procedure Note Christiano Heller MD - 09/07/2012Format ting of this note might be different from the original. Acc#: [id number] Indication: Poor venous access, needs co ntrast MRI Technique and findings: right neck steri jero prepped and draped after informed consent. Local anesthesia with 1 % lidoc skip. 21 ga needle advanced into the right IJ vein. 018 wire advanced. Coax ial micropuncture dilator advanced and inner dilator/wire removed. Catheter flu shed and aspirated easily. Secure with tape and returned to MRI for scan. EBL: 1 cc IMPRESSION Impression: Right IJ vein [address] acement IR Fellow: Marshall Arauz MD Attending: Sarah Heller MD (I was pres ent for the procedure) Film and interpretation reviewed by the attending Yan Henriquez MD IMG IR ORDERABLES documented in this encounter Visit Diagnoses Diagnosis Infection - Primary Unspecified infectious and parasitic dis eases Nerve injury Injury to nerves, unspecified site documented in this encounter Care Teams Lobster Man Relationship Specialty Start Date End Date Princess Henley MD PCP - General 03/12/12 04/26/[address] [place] [phone] documented as of this encounter
--- OUTSIDE RECORDS SUMMARY | 2022-02-03 15:55 | XMS_ITS | Encounter Summary ---
:1980 Author Organization [facility] [place] [address] Care Team Providers Name Role Phone Princess Henley MD Primary Care Provider Reason for Visit Reason Comments On Treatment Visit HBOT # 5 Encounter Details Date Type Department Care Team Description 12/16/2014 Hospital Encounter [facility] Raynaud's disease Medicine at [facility] [place] [address] Social History Tobacco Use Types Packs/Day Years Used Date Never Smoker Smokeless Tobacco: Never Used Alcohol Use Standard Drinks/Week Comments No 0 (1 standard drink = 0.6 oz pure alcoho l) Sex Assigned at Date Recorded Not on file documented as of this encounter Last Filed Vital Signs Vital Sign Reading Time Taken Comments Blood Pressure 128/86 12/16/2014 2:45 PM EDT Pulse 55 12/16/2014 2:45 PM EDT Temperature 37 ??C (98.6 ??F) 12/16/2014 12:40 PM EDT Respiratory Rate - - [...] encounter Progress Notes Ellie Nagy APRN - 12/16/2014 3:30 PM EDT Patient Name: Lindsay Odonnell Patient Age: 34 y.o. Birthdate: 1980 Admit date: 12/16/2014 Attending Physician: No att. providers found Wound Care:Right lower extremity Lidocaine jelly 2% applied to wound bed After 10 minutes, the wound was debrided with a currette. Yellow, adherent slough to wound bed.Granulation buds mixed with yellow slough. Wound cleansed with normal saline Medi Honey applied to wound bed followed by a Mepilex border dressing. She tolerated the treatment well. Jemima Garcia RN - 12/16/2014 2:01 PM EDT Patient Name: Lindsay Odonnell Patient Age: 34 y.o. Birthdate: 1980 Admit date: 12/16/2014 Attending Physician: No att. providers found INTERVAL HISTORY: MS. Odonnell arrives alert & oriented. She denies any discomfort, changes, issues, complaints. Wound/Dressin Band-aids present on medial aspect of left ankle, no drainage noted. Right great toe is covered in guaze and tape bandage, no drainage noted. Lindsay Odonnell received hyperbaric oxygen treatment today for non-healing wound on right great toedue to hypoxia secondary to [...] treatment and monitored the patient. HYPERBARIC TREATMENT: Number-5 Planned number of treatments-20 and then determine need for more Compression Rate: 1.5psi/min Decompression Rate: 2.0 psi/min ALFREDO-2.4 Start Compression Reach Treatment Pressure - 2.4 ALFREDO Air Break Start Air Break Completed Start Decompression Treatment Completed 1246 1300 1346 1356 1431 1442 Sechrist Chamber # 1 Clinical Practice Guideline for Hyperbaric Oxygen Therapy Prevent and manage for potential problems related to 1.Barotrauma, 2.oxygen toxicity, and 3.Pneumothorax. 4. Situational Problems Assessed: ALL (Barotrauma, Oxygen Toxicity, Pneumothorax, Situational) Problems Present: None, (Barotrauma, Oxygen Toxicity, Pneumothorax, Situational) No issues or complaints during or after treatment. Interventions: Per Clinical Practice Guidelines for Hyperbaric Oxygen Therapy through [facility]. No interventions required today. Patient alert and oriented. Ambulating with steady gait .Vesna Nagy APRN treated the left medial ankle wound after HBOT. Patient assessed and found appropriate to leave the Hyperbaric area at the conclusion of today???s session. Continue HBOT as planned. Next treatment scheduled for tomorrow, December 17. documented in this encounter Miscellaneous Notes Addendum Note - Ellie Nagy APRN - 12/16/2014 3:35 PM EDTEncounter addended by: Ellie Nagy APRN on: 12/16/2014 3:35 PM
Documentation filed: Clinical Notes documented in this encounter Plan of Treatment Not on filedocumented as of this encounter Visit Diagnoses Diagnosis Raynaud's disease Raynaud's syndrome documented in this encounter Care Teams Broadcast Correspondent Relationship Specialty Start Date End Date Princess Henley MD PCP - General 03/12/12 04/26/[address] [place] [phone] documented as of this encounter
--- OUTSIDE RECORDS SUMMARY | 2022-02-03 15:55 | XMS_ITS | Encounter Summary ---
:1980 [place] [address] Care Team Providers Name Role Phone Princess Henley MD Primary Care Provider Encounter Details Date Type Department Care Team Description 09/13/2012 - Hospital Encounter Short Stay Unit at [facility] [place], 09/14/2012 Cecilia Romero MD [facility] DR Gutierrez PLASTIC SURGERY [place] [id number] [phone] Social History Tobacco Use Types Packs/Day Years Used Date Never Smoker Smokeless Tobacco: Never Used Alcohol Use Standard Drinks/Week Comments No 0 (1 standard drink = 0.6 oz pure alcoho l) Sex Assigned at Date Recorded Not on file documented as of this encounter Last Filed Vital Signs Vital Sign Reading Time Taken Comments Blood Pressure 105/65 09/14/2012 7:22 AM EDT Pulse 70 09/14/2012 7:22 AM EDT Temperature 36.5 ??C (97.7 ??F) 09/14/2012 7:22 AM EDT Respiratory Rate 14 09/14/2012 7:22 AM EDT Oxygen Saturation 99% 09/14/2012 7:22 [...] medications - call us on Sunday at [phone] to arrange for follow-up with Dr. Guadarrama [...] keep hand elevated at all times Shay Farias RN - 09/13/2012 6:40 PM EDT Pt admitted [...] hour interval history and physical exam: Lindsay Engle Miguelnati's condition unchanged since H&P originally performed 31 [...] middle and ring finger FDP transfer to A2 pulleys on 09/13/2012 History: 31 y/o female developed [...] activity - call us on Sunday at [phone] to arrange for follow-up with Dr. Guadarrama in 1 week Follow-up plan: VNA: No discharge procedures on file. General Instructions None Op Note - Rafa Mcintosh MD - 09/13/2012 4:54 PM EDT [facility] [place] Patient Name: Lindsay Odonnell : [id number] MR#: [id number] Case Date: 09/13/2012 Surgeon: Surgeon(s) and Role: [...] Operative Note Patient Name: Lindsay Odonnell : [id number] MR#: [id number] Case Date: 09/13/2012 Surgeon: Surgeon(s) and Role: [...] ORDERABLES documented in this encounter Visit Diagnoses Not on filedocumented in this encounter Administered Medications Inactive Administered Medications - up to 3 most recent administrations Medication Order MAR Action Action Date Dose Rate Site docusate sodium (COLACE) capsule Given 09/14/2012 9:00 AM EDT 10 0 mg 100 mg 100 mg, Oral, 2 TIMES [...] CONT INUOUS, Starting Sun09/13/12 at 1745, Until Sun09/14/12 at 1359 PRN Medication Order 09/12/2012 09/13/2012 09/14/2012 BUpivacaine (PF) (MARCAINE) 0.5 % (5 mg/mL) injection (CANCE LED) 1507 (Given - Provider: Yan Guadarrama MD) ONCE PRN, Starting Sun09/13/12 at 1507, Until Sun09/13/12 at 1831, Intra- Operative (Intra-Procedure), Routine fentaNYL 50mcg/mL injection (CANCELED) 1 655 (Given - Provider: Jodi Osullivan RN)1813 (Given - Provider: Radha Escobar RN) 25-50 mcg, Intravenous, EVERY 5 MIN PRN, Starting 09/13/12 at 1558, Until 09/13/12 at 1827, Pain, for breakthrough pain, Hold [...] PRN , Starting 09/13/12 at 1559, Until 09/13/12 at 1827, Pain, For moderate pain give: [...] HOURS PRN, Starting 09/13/12 at 1839, Until Sun09/14/12 at 1359, Pain, breakthru pain, Routine OXYcodone (ROXICODONE) immediate release tablet 10-15 mg (CA NCELED) 175 (Given - Provider: Jodi Osullivan RN) 10-15 mg, Oral, EVERY 4 HOURS PRN, Start ing Sun09/13/12 at 1720, Until Sun09/13/12 at 2029, Pain, Routine OXYcodone (ROXICODONE) immediate release tablet 10-15 mg 2044 (Given - Provider: Louise Polo RN)2346 (Given - Provider: Louise Polo, RN) 0359 (Given - Provider: Louise Polo, RN)0722 (Given - Provider: Saray Escalona, RN)1000 (Given - Provider: Saray Escalona, RN)1200 (Given - Provider: Saray Escalona, RN - Comment: given for long ride home) 10-15 mg, Oral, EVERY 3 HOURS PRN, Start ing Sun09/13/12 at 2030, Until 09/14/12 at 1359, Pain, Routine zolpidem (AMBIEN) tablet 5 mg (CANCELED) 2303 (Given - Provider: Louise Polo RN) 5 mg, Oral, NIGHTLY PRN, Starting Sun at 1839, Until 09/14/12 at 1359, Sleep, PO every HS PRN sleep, Routine documented in this encounter Care Teams Wood Room Supervisor Relationship Specialty Start Date End Date Princess Henley MD PCP - General 03/12/12 04/26/15 [address] [place] [address] documented as of this encounter
--- OUTSIDE RECORDS SUMMARY | 2022-02-03 15:55 | XMS_ITS | Encounter Summary ---
:1980 Author Organization [facility] [place] [address] Care Team Providers Name Role Phone Princess Henley MD Primary Care Provider Encounter Details Date Type Department Care Team Description 12/30/2014 Notes Only [facility] Louie Sheth Jr., [place] [address] [place] [address] [phone] Social History Tobacco Use Types Packs/Day Years Used Date Never Smoker Smokeless Tobacco: Never Used Alcohol Use Standard Drinks/Week Comments No 0 (1 standard drink = 0.6 oz pure alcoho l) Sex Assigned at Date Recorded Not on file documented as of this encounter Progress Notes Pako Sheth Jr., MD - 12/30/2014 10:45 AM EDT Has completed 12 of an initial 20 treatments. Progress has been reviewed and is good. She has noted healing on her right great toe. Additionally, she had some lesions on her left lower leg that have healed. She does note some new redness on her left foot. The extension of the redness was marked with aSharpie and will be followed over time. Complications: None Follow up plan: Continue hyperbaric treatments. documented in this encounter Plan of Treatment Not on filedocumented as of this encounter Visit Diagnoses Not on filedocumented in this encounter Care Teams Contamination Consultant Relationship Specialty Start Date End Date Princess Henley MD PCP - General 03/12/12 04/26/15 [address] [place] [address] documented as of this encounter
--- OUTSIDE RECORDS SUMMARY | 2022-02-03 15:55 | XMS_ITS | Encounter Summary ---
:1980 Author Organization [facility] [place] [address] Care Team Providers Name Role Phone Princess Henley MD Primary Care Provider Reason for Visit Reason Comments Follow Up Surgery s/p left hand tendon repair Encounter Details Date Type Department Care Team Description 12/25/2012 Follow-Up Plastic Surgery at Yan Guadarrama MD Tendon dysfunction (Primary Dx); [facility] Median nerve injury, at the elbow; [facility] Ulnar nerve injury, at elbow [place] [address] [place] [address] [phone] (Wo rk) Social History Tobacco Use Types Packs/Day Years Used Date Never Smoker Smokeless Tobacco: Never Used Alcohol Use Standard Drinks/Week Comments No 0 (1 standard drink = 0.6 oz pure alcoho l) Sex Assigned at Date Recorded Not on file documented as of this encounter Progress Notes Danay Lombardi RN - 12/25/2012 10:28 AM EDT Pre-Op Teaching for Surgery Surgery: joint fusion left hand index, long, ring, and little at DIPJ Written and verbal pre-operative instructions were given and reviewed with patient: Patient was advised to discontinue use of NSAIDS and aspirin products (unless otherwise advised by patient's PCP/Critical Care Physician Assistant for cardiac symptoms), fish oil, Vitamin E and herbal supplements for 14 days prior to surgery, to perform the pre-op scrub, and to coordinate a ride home following surgery. Smoking status and medications were further reviewed to rule out/address current use of Nicotine, Coumadin, Plavix, Estrogen or Tamoxifen. Patient was instructed to call the clinic at with any questions or concerns prior to surgery. Yan Guadarrama MD - 12/25/2012 9:02 AM EDT Plastic Surgery Post Op Note Reason for visit: F/U status post procedure Date of surgery: 09/13/12 Procedure(s): Left hand tendon transfer Complications: None reported HPI: Pt reports she has been discharged from her therapist because she is not making any gains and medicaid will only pay for 30 visits per year. . She is wondering what other treatment options are available to her. Examination: Patient is alert, conversant, comfortable, ambulating Left hand remains with the fingers in flexion at the DIP joints. Full ROM of thumb Impression: Lindsay Odonnell is a 32 y.o. female was seen today for follow-up after the above procedure. Please see the operative note for details. She continues to have contraction of her fingers at the DIPJ. I discussed arthrodesis to fuse the index, long, ring, and little fingers at the DIPJoints in a position of better function, as well as neurolysis of the median and ulnar nerve. She understands and wishes to proceed. Plan: 1. Coordinate for surgery Dr Guadarrama Duration: 4 hours Timeframe: elective Coordinated with: Carlee Sandoval for neurolysis of median And ulnar nerve Procedure: joint fusion left hand index, long, ring, and little at DIPJ CPT: 30442 x 4, 35147, 74582, 93828 Surgical site: hand Side: left Anesthesia: General Follow up: 14 Days PAT: No Have plating system available ITaylor, am acting as scribe for Dr Guadarrama. All work documented was performed by Dr Guadarrama. ???I performed the above scribed service and agree with the accuracy of the note?? 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
--- OUTSIDE RECORDS SUMMARY | 2022-02-03 15:55 | XMS_ITS | Encounter Summary ---
:1980 Author Organization [facility] [place] [address] Care Team Providers Name Role Phone Princess Henley MD Primary Care Provider Reason for Visit Reason Comments On Treatment Visit HBOT# 1 Encounter Details Date Type Department Care Team Description 12/08/2014 - Hospital Encounter [facility], DR RPAMOD Rogers d's disease 12/28/2014 Hyperbaric Medicine Unknown None at [facility] Pako Shteh Jr., MD [facility] [place] [address] [place] [phone] Social History Tobacco Use Types Packs/Day Years Used Date Never Smoker Smokeless Tobacco: Never Used Alcohol Use Standard Drinks/Week Comments No 0 (1 standard drink = 0.6 oz pure alcoho l) Sex Assigned at Date Recorded Not on file documented as of this encounter Last Filed Vital Signs Vital Sign Reading Time Taken Comments Blood Pressure 111/71 12/08/2014 2:55 PM EDT Pulse 64 12/08/2014 2:55 PM EDT Temperature 37.1 ??C (98.8 ??F) 12/08/2014 1:30 PM EDT Respiratory Rate 16 12/08/2014 1:30 PM EDT Oxygen Saturation - - Inhaled [...] encounter Progress Notes Carlee Bernard RN - 12/08/2014 2:02 PM EDT Patient Name: Lindsay Odonnell Patient Age: 34 y.o. Birthdate: 1980 Admit date: 12/08/2014 Attending Physician: Unknown Lindsay Odonnell was seen in Hyperbaric Medicine for initial assessment, screening and teaching today. Chart reviewed for pertinent medical history and Learning Needs Assessment reviewed/completed. Allergies reviewed and Medication List verified with patient. Consent for treatment was signed. Lung Imaging addressed. [ x ] CXR w/in past year acceptable LOC: Alert, oriented, asking appropriate questions. Lungs: Clear and equal. Pain Level: (0-10 Valdez Pain Assessment Tool) 0 at this time. Patient reports pain up to 10 at times especially with dressing changes. Takes ibuprofen and aleve without much effect. Pain goes away on it's own over time. Mobility/Fall Risk: Ambulating independently with steady gait. Vision: x Glasses Requires glasses to see TV? Move TV close. Glasses made with Titanium? Uncertain. Reason for glasses: Poor distance vision. Without glasses With glasses Both Right Left Both Right Left Snellen 80 80 80 Not assessed Near Vision 20 20 20 _x__ Discussed potential for visual changes during the course of HBOT, the availability of adjustable lens glasses if needed, encouraged Pt. to report any visual changes. Refraction Values Right Left Spherical -1.25 -1.50 Cylinder -0.50 -0.75 [place] 176 1 Tympanometry: Tympanometer being serviced, not available. Diabetic: No Wound Care: Right great toe with bacitracin, non-adherent dressing and guaze wrap covering wound. Patient reports she puts bacitracin on instead of medihoney today. The Medihoney causes too much pain. Patient asked not to remove dressing as it causes her significant pain and she is concerned about driving home. See Dr. Sheth's Consult note for picture. Pt. Is being [facility] [place] [place] [facility] and will ask them to send progress updates with measurements and pictures. Patient has two recent wounds on her left inner ankle which she reports is possibly from bug bites.Medial wound is open and weeping serous drainage. Measures 1.5cm L x 1.2 cm W. Wound edges pink. More posterior wound is raised with small open area at center that measures 0.7 cm L x 0.5 cm W. Surrounding skin is slightly indurated. Patient reports she is on antibiotics. Has been applying medihoney to wounds and covering with large bandaid. Nutrition Concerns/ Supplements: None Psycho/Social: (Support, community resources, referrals) Lives with and two children ages 3 yo and 12 yo. Drives self to treatments. Learning Needs Assessment: (Is there anything that makes it difficult for you to learn new health information?) No Education/Instructions: _x__ Equalizing ear pressure _x__Chamber Safety _x__Chamber communication _x__Temperature changes _x__ Symptoms /Difficulties/Concerns to report to staff (difficulty clearing ears, ear/sinus pain, difficulty breathing, feelings of claustrophobia, any unusual feelings) Reason they are undergoing HBOT: To get more oxygen to my wound to help with healing. Other: Lindsay reports there is no chance that she could be . INTERVAL HISTORY: Patient denies any discomfort,issues, complaints. SOB: Comfortable breathing pattern Headaches: Denies Cough: none Ear Pain: none Chest Pain: denies Cold symptoms: denies Wound/Dressing: see above Pain Level: 0 (0-10 scale) * If greater than 5, document interventions. Education: As above. Reinforced need to work on frequent ear clearing techniques during pressurization and reporting any difficulties, discomfort, concerns, changes. Lindsay Odonnell received hyperbaric oxygen treatment today [...] HYPERBARIC TREATMENT: Number-1 Planned number of treatments-20 then reassess Compression Rate: 1.5psi/min Decompression Rate: 2.0 psi/min ALFREDO-2.0 Start Compression Reach Treatment Pressure - ALFREDO Air Break Start Air Break Completed Start Decompression Treatment Completed 1338 1357 none none 1444 1451 Sechrist Chamber # 1 Clinical Practice Guideline for Hyperbaric Oxygen Therapy Prevent and manage for potential problems related to 1.Barotrauma, 2.oxygen toxicity, and 3.Pneumothorax. 4. Situational Problems Assessed: ALL (Barotrauma, Oxygen Toxicity, Pneumothorax, Situational) Problems Present: None, (Barotrauma, Oxygen Toxicity, Pneumothorax, Situational) No issues or complaints during or after treatment. Able to equalize ear pressure with swallowing and yawning. Denies any discomfort, issues or unusual symptoms. Patient denies any changes in sensationin extremities during treatment. Interventions: Per Clinical Practice Guidelines for Hyperbaric Oxygen Therapy through [facility]. Pressurized slowly in steps and checked with patient frequently. Observed patient performing frequent yawning and swallowing to clear ears during pressurization. Rested and watched TV for 47 minute treatment. Patient alert and oriented. Ambulating with steady gait. Patient assessed and found appropriate to leave the Hyperbaric area at the conclusion of today???s session. Continue HBOT as planned. Next treatment scheduled for 12/09/14. documented in this encounter Plan of Treatment Not on filedocumented as of this encounter Visit Diagnoses Diagnosis Raynaud's disease Raynaud's syndrome documented in this encounter Care Teams Research Aide Relationship Specialty Start Date End Date Princess Henley MD PCP - General 03/12/12 04/26/15 [address] [place] [phone] documented as of this encounter
--- OUTSIDE RECORDS SUMMARY | 2022-02-03 15:55 | XMS_ITS | Encounter Summary ---
:1980 Author Organization [facility] [place] [address] Care Team Providers Name Role Phone Princess Henley MD Primary Care Provider Reason for Visit Reason Comments Follow-up left ulna median nerve tendo n repair 09/13/12 Encounter Details Date Type Department Care Team Description 10/15/2012 Follow-Up Plastic Surgery at [facility], Other specified [facility] [employer] [facility] aftercare following [facility] yvan chauhan (Primary Dx) [place] [address] PLASTIC SURGERY [phone] [place] [id number] (Wo rk) Social History Tobacco Use Types Packs/Day Years Used Date Never Smoker Smokeless Tobacco: Never Used Alcohol Use Standard Drinks/Week Comments No 0 (1 standard drink = 0.6 oz pure alcoho l) Sex Assigned at Date Recorded Not on file documented as of this encounter Progress Notes Ella Skinner APRN - 10/15/2012 10:55 AM EDT Plastic Surgery Post Op Note Reason for visit: F/U status post procedure Date of surgery: 09/13/12 Procedure(s): Left hand tendon transfer Complications: None reported HPI: Pt reports she is well. She had her sutures removed at a local hospital. She is scheduled for hand therapy next week with her local therapist. She reports her hand is still very stiff. She did nothave her splint with her for her appointment today. Examination: Patient is alert, conversant, comfortable, ambulating Incision: Healing well, surfacing sutures removed today No collection, no erythema, no evidence of cellulitis. Improvement in hand position but hand remains stiff. Impression: Lindsay Odonnell is a 31 y.o. female was seen today for follow-up after the above procedure. Please see the operative note for details. She is doing well without complaints. She will begin hand therapy today. Plan: 1. Follow up: as scheduled in November with Dr Henriquez 2. Begin passive ROM exercises today, continue splinting. I, Taylor Alberto, am acting as scribe for Ella Skinner. All work documented was performed by Ella Skinner. ???I performed the above scribed service and agree with the accuracy of the note?? PORFIRIO Lyles documented in this encounter Plan of Treatment Not on filedocumented as of this encounter Visit Diagnoses Diagnosis Other specified aftercare following surg swetha - Primary documented in this encounter Care Teams Superior Court Clerk Relationship Specialty Start Date End Date Princess Henley MD PCP - General 03/12/12 04/26/15 [address] [place] [phone] documented as of this encounter
--- OUTSIDE RECORDS SUMMARY | 2022-02-03 15:55 | XMS_ITS | Encounter Summary ---
:1980 Author Organization [facility] [place] [address] Care Team Providers Name Role Phone Princess Henley MD Primary Care Provider Reason for Visit Reason Comments On Treatment Visit HBOT# 8 Encounter Details Date Type Department Care Team Description 12/21/2014 Hospital Encounter [facility] Raynaud's disease Medicine at [facility] [place] [address] Social History Tobacco Use Types Packs/Day Years Used Date Never Smoker Smokeless Tobacco: Never Used Alcohol Use Standard Drinks/Week Comments No 0 (1 standard drink = 0.6 oz pure alcoho l) Sex Assigned at Date Recorded Not on file documented as of this encounter Last Filed Vital Signs Vital Sign Reading Time Taken Comments Blood Pressure 120/83 12/21/2014 2:40 PM EDT Pulse 56 12/21/2014 2:40 PM EDT Temperature 37 ??C (98.6 ??F) 12/21/2014 12:38 PM EDT Respiratory Rate 16 12/21/2014 12:38 PM EDT Oxygen Saturation - - Inhaled [...] encounter Progress Notes Carlee Bernard RN - 12/21/2014 2:17 PM EDT Patient Name: Lindsay Odonnell Patient Age: 34 y.o. Birthdate: 1980 Admit date: 12/21/2014 Attending Physician: No att. providers found INTERVAL HISTORY: Patient denies any discomfort, changes, issues, complaints. Wound/Dressing: My toe is healing a little. It hasn't changed in 2 years until now. Right great toe dressing C/D/I. Pain Level: 0 (0-10 scale) * If [...] treatment and monitored the patient. HYPERBARIC TREATMENT: Number-8 Planned number of treatments-20 then re-evaluate Compression Rate: 1.5psi/min Decompression Rate: 2.0 psi/min ALFREDO-2.4 Start Compression Reach Treatment Pressure - ALFREDO Air Break Start Air Break Completed Start Decompression Treatment Completed 1241 1256 1342 1352 1426 1438 Secist Chamber # 1 Clinical Practice Guideline for Hyperbaric Oxygen Therapy Prevent and manage for potential problems related to 1.Barotrauma, 2.oxygen toxicity, and 3.Pneumothorax. 4. Situational Problems Assessed: ALL (Barotrauma, Oxygen Toxicity, Pneumothorax, Situational) Problems Present: None, (Barotrauma, Oxygen Toxicity, Pneumothorax, Situational) No issues or complaints during or after treatment. Interventions: Per Clinical Practice Guidelines for Hyperbaric Oxygen Therapy through [facility]. No interventions required today. Patient alert and oriented. Ambulating with steady gait. Patient assessed and found appropriate to leave the Hyperbaric area at the conclusion of today???s session. Continue HBOT as planned. Next treatment scheduled for 12/22/14. documented in this encounter Plan of Treatment Not on filedocumented as of this encounter Visit Diagnoses Diagnosis Raynaud's disease Raynaud's syndrome documented in this encounter Care Teams Gate Clerk Relationship Specialty Start Date End Date Princess Henley MD PCP - General 03/12/12 04/26/[address] [place] [phone] documented as of this encounter
--- OUTSIDE RECORDS SUMMARY | 2022-02-03 15:55 | XMS_ITS | Encounter Summary ---
:1980 Author Organization [facility] [place] [address] Care Team Providers Name Role Phone Princess Henley MD Primary Care Provider Reason for Visit Reason Comments On Treatment Visit HBOT#15 Encounter Details Date Type Department Care Team Description 01/01/2015 Hospital Encounter [facility] at [facility] [place] [address] Social History Tobacco Use Types Packs/Day Years Used Date Never Smoker Smokeless Tobacco: Never Used Alcohol Use Standard Drinks/Week Comments No 0 (1 standard drink = 0.6 oz pure alcoho l) Sex Assigned at Date Recorded Not on file documented as of this encounter Last Filed Vital Signs Vital Sign Reading Time Taken Comments Blood Pressure 114/81 01/01/2015 3:33 PM EDT Pulse 59 01/01/2015 3:33 PM EDT Temperature 37 ??C (98.6 ??F) 01/01/2015 1:20 PM EDT Respiratory Rate 16 01/01/2015 1:20 PM EDT Oxygen Saturation - - Inhaled [...] encounter Progress Notes Carlee Bernard RN - 01/01/2015 2:34 PM EDT Patient Name: Lindsay Odonnell Patient Age: 34 y.o. Birthdate: 1980 Admit date: 01/01/2015 Attending Physician: No att. providers found INTERVAL HISTORY: Patient denies any discomfort, changes, issues, complaints. Visual Change: Denies any noticeable changes, difficulties. SOB: comfortable breathing pattern Headaches: denies Cough: none Ear Pain: denies any pain or issues today. Pt. stated, It was gone when I got to the parking . Cold symptoms: denies Wound/Dressing: guaze dressing with silk tape to right toe, small piece of mepilex silver dressing to left ankle. New wounds to left lower st covered with clean band aids. Patient reports her leg wasinadvertently closed in the car door when her 3 yo daughter closed door to be helpful. She is only 5 so it wasn't very hard. Patient is changing all dressings at home after shower in the evenings. Snellen Chart Near Vision Both Eyes 80 20 Right Eye 100 20 Left Eye 100 20 Refraction Values Right Left Spherical -2.00 -2.25 Cylinder -0.50 -0.50 [place] 176 26 Education: Reminded patient to report any visual changes especially difficulty reading road signs and difficulty driving. Informed patient these visual changes usually reverse within a few weeks after therapy. Educated not to change perscription. Discussed availability of AdLens glasses. and showed demo pair to patient. Patient verbalized understanding. Lindsay Odonnell received hyperbaric oxygen treatment today [...] treatment and monitored the patient. HYPERBARIC TREATMENT: Number-15 Planned number of treatments-20 then re-evaluate for further treatments. Compression Rate: 1.5psi/min Decompression Rate: 2.0 psi/min ALFREDO-2.4 Start Compression Reach Treatment Pressure - ALFREDO Air Break Start Air Break Completed Start Decompression Treatment Completed 1324 1348 1433 1443 1518 1530 Sechrist Chamber # 1 Clinical Practice Guideline for Hyperbaric Oxygen Therapy Prevent and manage for potential problems related to 1.Barotrauma, 2.oxygen toxicity, and 3.Pneumothorax. 4. Situational Problems Assessed: ALL (Barotrauma, Oxygen Toxicity, Pneumothorax, Situational) Problems Present: None, (Barotrauma, Oxygen Toxicity, Pneumothorax, Situational) No issues or complaints during or after treatment. Interventions: Per Clinical Practice Guidelines for Hyperbaric Oxygen Therapy through [facility]. No interventions required today. Reported she did not have any pain in her ears today. Patient alert and oriented. Ambulating with steady gait. Patient assessed and found appropriate to leave the Hyperbaric area at the conclusion of today???s session. Continue HBOT as planned. Next treatment scheduled for 01/05/15. documented in this encounter Plan of Treatment Not on filedocumented as of this encounter Visit Diagnoses Diagnosis Raynaud's disease Raynaud's syndrome documented in this encounter Care Teams Cobbler Upper Relationship Specialty Start Date End Date Princess Henley MD PCP - General 03/12/12 04/26/15 [address] [place] [address] documented as of this encounter
--- OUTSIDE RECORDS SUMMARY | 2022-02-03 15:56 | XMS_ITS | Encounter Summary ---
:1980 Author Organization [facility] Address [address] [place] [address] Care Team Providers Name Role Phone Shruthi Huang APRN Primary Care Provider Reason for Visit Reason Comments Routine Visit Encounter Details Date Type Department Care Team Description 05/18/2011 Routine Obstetrics and Antoine Thapa MD [place]: 24w2d Gynecology at [facility] [place] & [place] [address] GYNECOLOGY [phone] [place] [phone] (Wo rk) Social History Tobacco Use Types Packs/Day Years Used Date Never Smoker Alcohol Use Standard Drinks/Week Comments No 0 (1 standard drink = 0.6 oz pure alcoho l) Sex Assigned at Date Recorded Not on file documented as of this encounter Last Filed Vital Signs Vital Sign Reading Time Taken Comments Blood Pressure 102/58 05/18/2011 10:45 AM EST Pulse - - Temperature - - Respiratory Rate - - Oxygen Saturation - - Inhaled Oxygen Concentration - - Weight 68.1 kg (150 lb 1.6 oz) 05/18/2011 10:45 AM EST Height - - Body Mass Index 24.98 03/03/2011 2:13 PM EDT documented in this encounter Progress Notes Antoine Thapa MD - 05/18/2011 11:12 AM EST Denies cramping or bleeding. Good FM. No complaints. Patinet is stable, she can be returned to the enrollment coordinator service. History of substance abuse - IVDU - ANTOINE THAPA MD 05/18/11 10:59 AM Signed Stable for over 1 year on treatment, total of 4 years of treatment. She is doing well in her program. She is a former IVDA and pill user, she last used over 4 years ago. Hepatitis C - ANTOINE THAPA MD 05/18/11 11:02 AM Addended Patient states she is antibody positive but has a negative viral load. She has been told she clearedthe virus. She does not have a quant viral load or LFT here, we will obtain them today. We discussed PATEL scoring and keeping a quiet room in the hospital. WE also discussed LOS for the baby and the patient. RTC 4 weeks with the enrollment coordinator. Chula Gutiérrez LNA - 05/18/2011 10:51 AM EST The OB identification card, Glucose screening directions (if applicable) along with the Guide to [place] was given to the patient. The materials were discussed and the patient was encouraged to read the information and direct questions to the provider. documented in this encounter Miscellaneous Notes Miscellaneous - Lio Kelly - 09/03/2011 5:41 AM EDT Assessment & Plan Note - Antoine Thapa MD - 05/18/2011 11:00 AM EST Associated Problem(s): Hepatitis C Patient states she is antibody positive but has a negative viral load. She has been told she clearedthe virus. She does not have a quant viral load or LFT here, we will obtain them today. Assessment & Plan Note - Antoine Thpaa MD - 05/18/2011 10:59 AM EST Associated Problem(s): History of substance abuse - IVDU Stable for over 1 year on treatment, total of 4 years of treatment. She is doing well in her program. She is a former IVDA and pill user, she last used over 4 years ago. documented in this encounter Plan of Treatment Pending Results Name Type Priority Associated Diagnoses Date/Ti me Hepatitis C RNA, Lab Routine Hepatitis C 07/13/2011 11:07 AM EDT quantitative, PCR Scheduled Orders Name Type Priority Associated Diagnoses Order S chedule Hepatitis C RNA, Lab Routine Hepatitis C Expected: 0 06/15/2011, quantitative, PCR Expires: 0 05/18/2012 documented as of this encounter Results Glucose 1 Hour Post Prandial (07/13/2011 11:34 AM EDT) P athologist Signature Glucose, 1Hr 129 mg/dL [facility] Specimen Anatomical Collection Method Collection Time Receive d Time (Source) Location / / Volume Laterality Blood specimen 07/13/2011 11:34 2 (specimen) AM EDT 11:38 AM EDT Resulting Agency Comment Spec In Lab Antoine Thapa MD CHEMISTRY ORDERABLES Performing Organization Address City/State/[place] [address] [facility] documented in this encounter Visit Diagnoses Diagnosis History of substance abuse - IVDU Other, mixed, or unspecified nondependen t drug abuse, unspecified Hepatitis C Unspecified viral hepatitis C without he patic coma Supervision of high-risk Unspecified high-risk documented in this encounter Care Teams Label Drier Relationship Specialty Start Date End Date Shruthi Huang APRN PCP - General 02/17/11 03/11/12 documented as of this encounter
--- OUTSIDE RECORDS SUMMARY | 2022-02-03 15:56 | XMS_ITS | Encounter Summary ---
:1980 Author Organization [facility] [place] [address] Care Team Providers Name Role Phone Princess Henley MD Primary Care Provider Reason for Visit Reason Comments Follow-up left hand Encounter Details Date Type Department Care Team Description 07/25/2012 Follow-Up Plastic Surgery at Yan Guadarrama MD Ulnar nerve injury, at elbow (Primary Dx ); [facility] Median nerve injury, at the elbow [facility] [address] [address] [place] [address] [phone] (Wo rk) Social History Tobacco Use Types Packs/Day Years Used Date Never Smoker Smokeless Tobacco: Never Used Alcohol Use Standard Drinks/Week Comments No 0 (1 standard drink = 0.6 oz pure alcoho l) Sex Assigned at Date Recorded Not on file documented as of this encounter Progress Notes Yan Guadarrama MD - 07/25/2012 9:23 AM EDT Plastic Surgery Office Note Office Visit Follow Up ID: Lindsay Odonnell returns to clinic today for 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 Subjective: Lindsay Odonnell is here today with her . She took her anxiety medication thismorning so she will be able to have her arms examined. She is here today for a combined appointment with Dr. Carlee Sandoval. Exam: Left hand Left hand is in an intrinsic minus position with fingers and thumb in flexion Some synovosis of index finger and thumb 3/4 radial pulse, 1/4 ulnar pulse Some protective sensation on volar aspect of thumb but not on fingers. Some median function Diagnostic Testin03/08/12 EMG testing ulnar and median neuropathy at the elbow Impression: Lindsay Odonnell 31 y.o. 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 She was seen in coordination with Dr Sandoval. We discussed nerve grafting to provide better hand function. We discussed potential risks and complications which include but are not limited to: Pain, bleeding, infection, scarring, asymmetry, hematoma, seroma, poor cosmetic outcome, failure of procedure, possible need for revision, damage to adjacent structures. She understands and would like to proceed as soon as possible. We will obtain an MRI/ MRA study of the left forearm and hand prior to surgery. Plan: 1. MRA / MRI of left forearm and hand 2. Follow up after MRI / MRA to finalize the surgical plan Surgery Dr Guadarrama Anticipate 2 nights hospitalization Duration: 4 hours Timeframe: After August 09 Coordinated with: Dr. Sandoval Procedure: neurolysis of median and ulnar nerve at elbow CPT: 30614, 64150, 81013 Surgical site: arm Side: left Anesthesia: General Follow up: 7 Days PAT: Yes, pre operative physical Intraoperative recordings I, Taylor Alberto, am acting as scribe for Dr Guadarrama. All work documented was performed by Dr Guadarrama. ???I performed the above scribed service and agree with the accuracy of the note?? YAN GUADARRAMA MD documented in this encounter Plan of Treatment Not on filedocumented as of this encounter Results MRI upper extremity angiogram (09/06/2012 1:50 PM EDT) Anatomical Region Laterality Modality Shoulder, Arm, Elbow, Forearm, Wrist, Hand Magnetic Resonance Specimen (Source) Anatomical Collection Method Collection Time Re ceived Time Location / / Volume Laterality 09/06/2012 1:50 PM EDT Narrative 09/09/2012 5:42 PM EDT Examination MRA UPPER EXTREMITY WITHOUT AND WITH CON TRAST/LEFT Clinical History right forearm and hand prior to surgery Comparison None Technique The study includes axial images at the l evel of the elbow to these images include T1 weighted and T2 weighted imag es fat suppressed T1 weighted images were acquired prior to and following int ravenous administration of 13 mL of Magnevist. ??In addition a volumetric fa t-suppressed T2 weighted acquisition was acquired in the coronal plane. ??This wa s reconstructed into contiguous 1 mm thick slices. The study also includes an MR angiogram of the forearm extending into the hand. ?? The study was performed during contrast administration. ??2 separate runs were acquired. Findings Proximally in the distal portion of the upper arm there is altered signal intensity within the distal portion of t he triceps muscle. ??Specifically, there is ill-defined enhancement. ??No mass is identified. ??This is a nonspecific finding of injury and may be related to earlier trauma or possibly secondary to denervation. ??I do not see other abnorm al muscle signal intensity in the upper arm. ??At this level the ulnar nerve mauro ears to be intact. ??The fat surrounding the nerve is not infiltrated. ??I do not see any obvious injury. ??The nerve can be followed into the cubital tunnel wher e no mass is seen and there is no subluxation. ?? In the proximal forearm the nerve remain s normal in appearance. ??There is additional abnormal signal intensity wit hin the pronator teres muscle as seen on axial image number 40 of the post-con trast images and on the volumetric T2 weighted acquisition of series 6 on imag es 26-33. ??Again the appearance is consistent with injury. ??This is a nons pecific finding that could be seen in the setting of denervation or previous t rauma. ??There does appear to be a mild degree of fatty infiltration within this muscle suggesting that the most likely diagnosis is nerve injury with the relat ively chronic coarse allowing for the infiltration of fat into muscle. No bony injury is identified. ??No soft tissue mass is identified. ??There is no large effusion at the elbow. The MR angiogram documents flow within t he ulnar and radial arteries. ??The ulnar artery can be followed distally to the palm of the hand. ??There is also flow within the radial artery to this le nicki but there is a segment of the artery that is either severely narrowed or discontinuous. ??This is best seen on the 3 dimensional reconstructed images. ??The gap of approximately 4 cm is seen. ?? This focal apparent discontinuity is loc ated approximately 5 cm proximal to the joint line. ??There appear to be small c ollateral vessels communicating across the defect. In the palm of the hand both the deep an d superficial arches appear discontinuous. ??A small amount of flow can be seen within digital arteries but there is ??absence of MR visible flow in the fingers. Impression ? 1. I do not see ulnar nerve injur y. ??There are however areas of muscle injury at the distal triceps and at the pronator teres. ? 2. Flow is identified within both the radial and ulnar arteries though there is a segment of the radial artery were there is no apparent flow. ? 3. I do not see distal flow in th e digits. I suspect that this is in part due in part to the limitations of this e xamination. Procedure Note Marcellus Barker MD - 09/09/2012Forma tting of this note might be different from the original. Examination MRA UPPER EXTREMITY WITHOUT AND WITH CON TRAST/LEFT Clinical History right forearm and hand prior to surgery Comparison None Technique The study includes axial images at the l evel of the elbow to these images include T1 weighted and T2 weighted imag es fat suppressed T1 weighted images were acquired prior to and following int ravenous administration of 13 mL of Magnevist. In addition a volumetric fat- suppressed T2 weighted acquisition was acquired in the coronal plane. This was reconstructed into contiguous 1 mm thick slices. The study also includes an MR angiogram of the forearm extending into the hand. The study was performed during contrast administration. 2 separate runs were acquired. Findings Proximally in the distal portion of the upper arm there is altered signal intensity within the distal portion of t he triceps muscle. Specifically, there is ill-defined enhancement. No mass is i dentified. This is a nonspecific finding of injury and may be related to earlier trauma or possibly secondary to denervation. I do not see other abnormal muscle signal intensity in the upper arm. At this level the ulnar nerve appea rs to be intact. The fat surrounding the nerve is not infiltrated. I do not s ee any obvious injury. The nerve can be followed into the cubital tunnel wher e no mass is seen and there is no subluxation. In the proximal forearm the nerve remain s normal in appearance. There is additional abnormal signal intensity wit hin the pronator teres muscle as seen on axial image number 40 of the post-con trast images and on the volumetric T2 weighted acquisition of series 6 on imag es 26-33. Again the appearance is consistent with injury. This is a nonspe cific finding that could be seen in the setting of denervation or previous t rauma. There does appear to be a mild degree of fatty infiltration within this muscle suggesting that the most likely diagnosis is nerve injury with the relat ively chronic coarse allowing for the infiltration of fat into muscle. No bony injury is identified. No soft ti ssue mass is identified. There is no large effusion at the elbow. The MR angiogram documents flow within t he ulnar and radial arteries. The ulnar artery can be followed distally to the palm of the hand. There is also flow within the radial artery to this le nicki but there is a segment of the artery that is either severely narrowed or discontinuous. This is best seen on the 3 dimensional reconstructed images. The gap of approximately 4 cm is seen. This focal apparent discontinuity is loc ated approximately 5 cm proximal to the joint line. There appear to be small col lateral vessels communicating across the defect. In the palm of the hand both the deep an d superficial arches appear discontinuous. A small amount of flow ca n be seen within digital arteries but there is absence of MR visible flow in t he fingers. Impression 1. I do not see ulnar nerve injury. The re are however areas of muscle injury at the distal triceps and at the pronator teres. 2. Flow is identified within both the r adial and ulnar arteries though there is a segment of the radial artery were there is no apparent flow. 3. I do not see distal flow in the digi ts. I suspect that this is in part due in part to the limitations of this e xamination. Yan Guadarrama MD IMG MRI ORDERABLES documented in this encounter Visit Diagnoses Diagnosis Ulnar nerve injury, at elbow - Primary Injury to ulnar nerve Median nerve injury, at the elbow Injury to median nerve Ulnar nerve injury, at elbow Injury to ulnar nerve Median nerve injury, at the elbow Injury to median nerve documented in this encounter Care Teams Wireless Telegrapher Relationship Specialty Start Date End Date Princess Henley MD PCP - General 03/12/12 04/26/[address] [place] [id number] documented as of this encounter
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
--- OUTSIDE RECORDS SUMMARY | 2022-02-03 15:56 | XMS_ITS | Encounter Summary ---
:1980 Author Organization [facility] [place] [address] Care Team Providers Name Role Phone Princess Henley MD Primary Care Provider Encounter Details Date Type Department Care Team Description 09/04/2012 Hospital Encounter MRI at [facility] Canceled One [facility] [place] [address] Social History Tobacco Use Types Packs/Day [...] - Inhaled Oxygen Concentration - - Weight 65.8 kg (145 lb) 09/04/2012 6:39 AM EDT Height - - Body Mass Index 24.13 07/13/2011 9:27 AM EDT documented in this encounter Medications at Time of Discharge Medication Sig Dispensed Refills Start Date End Date buprenorphine-naloxone Place 2 tablets 0 09/14/2012 (SUBOXONE) [...] moderate pain). documented as of this encounter Miscellaneous Notes Miscellaneous - Provider, Scanning - 09/10/2012 7:59 AM EDT documented in this encounter Plan of Treatment Not on filedocumented as of this encounter Visit Diagnoses Not on filedocumented in this encounter Care Teams Underwriting Technician Relationship Specialty Start Date End Date Princess Henley MD PCP - General 03/12/12 04/26/[address] [place] [phone] documented as of this encounter
--- OUTSIDE RECORDS SUMMARY | 2022-02-03 15:56 | XMS_ITS | Encounter Summary ---
:1980 Author Organization [facility] [place] [address] Care Team Providers Name Role Phone Shruthi Huang APRN Primary Care Provider Reason for Visit Reason Comments Routine Visit Encounter Details Date Type Department Care Team Description 08/29/2011 Routine Obstetrics and Jesenia Johnson APRN GA: 39w0d Gynecology at [facility] Lele tinajero OBSTETRICS & [place] [address] GYNECOLOGY [phone] [place], [place] [address] (Wo rk) Social History Tobacco Use Types Packs/Day Years Used Date Never Smoker Smokeless Tobacco: Never Used Alcohol Use Standard Drinks/Week Comments No 0 (1 standard drink = 0.6 oz pure alcoho l) Sex Assigned at Date Recorded Not on file documented as of this encounter Last Filed Vital Signs Vital Sign Reading Time Taken Comments Blood Pressure 104/70 08/29/2011 10:50 AM EDT Pulse - - Temperature - - Respiratory Rate - - Oxygen Saturation - - Inhaled Oxygen Concentration - - Weight 78.7 kg (173 lb 6.4 oz) 08/29/2011 10:50 AM EDT Height - - Body Mass Index 28.86 07/13/2011 9:27 AM EDT documented in this encounter Progress Notes Jesenia Johnson APRN - 08/29/2011 11:12 AM EDT No cramps, bleeding or LOF, Dr Eugene manages her Subutex, Robyn Huang APRN monitors her Hep C; legs and hands very swollen, PCP managing with hospitality specialist, improving. Discussed control; would like Mirena. Left hand over second knuckle; red, slightly edematous but not warm to touch. Pt states she thinks her cat scratched her yesterday. Pt instructed if becomes warm and red begins to travel up her arm to seek medical attention immediately. documented in this encounter Plan of Treatment Not on filedocumented as of this encounter Visit Diagnoses Diagnosis Supervision of other normal Hepatitis C antibody test positive Other and unspecified nonspecific immuno logical findings History of substance abuse Other, mixed, or unspecified nondependen t drug abuse, unspecified documented in this encounter Care Teams Spinning Frame Changer Relationship Specialty Start Date End Date Shruthi Huang APRN PCP - General 02/17/11 03/11/12 documented as of this encounter
--- OUTSIDE RECORDS SUMMARY | 2022-02-03 15:56 | XMS_ITS | Encounter Summary ---
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 x10(3)/mc L Lymphocytes % 11.6 (L) 19.0 - CERNER 53.0 % MILLENNIUM Lymphocytes Abs 1.2 1.0 - 3.6 CERNER x10(3)/mc MILLENNIUM L Monocytes % 7.5 4.0 - CERNER 13.0 % MILLENNIUM Monocyte Abs 0.8 0.2 - 1.0 CERNER x10(3)/mc MILLENNIUM L Eosinophils % 0.8 0.0 - 7.0 CERNER % MILLENNIUM Eosinophils Abs 0.1 0.0 - 0.5 CERNER x10(3)/mc MILLENNIUM L Basophils % 0.2 0.0 - 2.0 CERNER % MILLENNIUM Basophils Abs 0.0 0.0 - 0.2 CERNER x10(3)/mc MILLENNIUM L Immature Gran % 0.60 0.00 - CERNER 0.66 % MILLENNIUM Comment: Immature granulocytes(IG's)percentage an d absolute count will include metamyelocytes, myelocytes, and promyelo cytes. Blood smears from CBCs yielding IG's will be scanned manually for concor dance. If this scan disagrees with the automated IG or if promyelocytes are not ed, a manual differential will be performed. Carrie Gran Abs 0.06 (H) 0.00 - 0.05 x10(3)/mcL CER NER MILLENNIUM Specimen Anatomical Collection Method Collection Time Receive d Time (Source) Location / / Volume Laterality Blood specimen 09/03/2011 3:10 AM 012 3:23 (specimen) EDT AM EDT Eryn Jimenez MD HEMATOLOGY ORDERABLES Performing Organization Address City/[facility]/ZIP Code Phon e Number [address] CERNER MILLENNIUM (ABNORMAL) CBC (with Diff) (09/03/2011 3:10 AM EDT) P athologist Signature WBC 10.5 (H) 4.0 - 10.0 CERNER x10(3)/mcL MILLENNIUM RBC 3.96 3.93 - CERNER 5.22 MILLENNIUM x10(6)/mcL Hemoglobin 11.7 11.2 - CERNER 15.7 gm/dL MILLENNIUM Hematocrit 35.2 34.0 - CERNER 45.0 % MILLENNIUM MCV 88.9 79.0 - CERNER 94.0 fL MILLENNIUM MCH 29.5 26.6 - CERNER 32.2 pg MILLENNIUM MCHC 33.2 32.0 - CERNER 36.5 gm/dL MILLENNIUM Platelets 102 (L) 145 - 370 CERNER x10(3)/mcL MILLENNIUM RDWSD 44.8 35.0 - CERNER 46.0 fL MILLENNIUM RDWCV 13.7 10.9 - CERNER 14.4 % MILLENNIUM MPV 11.9 9.0 - 12.0 CERNER fL MILLENNIUM Specimen Anatomical Collection Method Collection Time Receive d Time (Source) Location / / Volume Laterality Blood specimen 09/03/2011 3:10 AM 012 3:23 (specimen) EDT AM EDT Resulting Agency Comment Spec In Lab Eryn Jimenez MD HEMATOLOGY ORDERABLES Performing Organization Address City/State/ZIP Code Phon e Number [address] CERNER MILLENNIUM XR CHEST PA OR AP- 1 VIEW (09/03/2011 3:03 AM EDT) Anatomical Region Laterality Modality Chest N/A Radiographic Imaging Specimen (Source) Anatomical Collection Method Collection Time Re ceived Time Location / / Volume Laterality 09/03/2011 3:03 AM EDT Narrative 09/03/2011 8:36 AM EDT Examination Single-view chest. ?? Clinical History Right IJ, check placement. Technique Single AP portable chest radiograph perf ormed 09/03/2011 at 0257 hours. ??The patient is and absorbed d ose estimation paperwork was completed for submission to the radiation physicis t. Comparison NONE Findings Right IJ central venous line tip at or j ust below the cavoatrial junction. ??No pneumothorax is seen. ??The lungs appear clear. ??Allowing for slightly shallow inspiration and AP magnification, the ca rdiomediastinal silhouette is within normal limits. Impression Right IJ line tip as above. ??No pneumot horax. Procedure Note Tata Arroyo MD - 09/03/2011Formatt ing of this note might be different from the original. Examination Single-view chest. Clinical History Right IJ, check placement. Technique Single AP portable chest radiograph perf ormed 09/03/2011 at 0257 hours. The patient is and absorbed d ose estimation paperwork was completed for submission to the radiation physicis t. Comparison NONE Findings Right IJ central venous line tip at or j ust below the cavoatrial junction. No pneumothorax is seen. The lungs appear c lear. Allowing for slightly shallow inspiration and AP magnification, the ca rdiomediastinal silhouette is within normal limits. Impression Right IJ line tip as above. No pneumotho rax. Clint Feliciano MD IMG DX ORDERABLES CENTRAL LINE (09/03/2011 2:57 AM EDT) Narrative Clint Feliciano MD - 09/03/2011 2:57 AM EDT CLINT FELICIANO ? 09/03/2011 ? 2:57:41 AM Central Line Placement Procedure Note Indication for Central Line Insertion: New Catheter: ??volume replacement and a ccess This insertion was not to replace a malf unctioning central line. This insertion was not due to a suspecte d central line associated infection. Location of Procedure: labor and delivery Risks and Benefits: The risks and benefits of this procedure were reviewed and informed consent was obtained. Time Out: Prior to the start of the procedure, the patient's identity, intended procedure, site/side, correct p atient positioning and presence of the site donal was confirmed as applicable. The medical history and chart were reviewed to rule out potential contraindications to the planned procedu re. Hand Hygiene: The photovoltaic installer did perform hand hygiene pr ior to central line insertion. Procedure Technique: Skin was prepped with chlorhexidine . Skin preparation agent was completely dr y at the time of first skin puncture. The following barrier precautions were u sed:large sterile drape, mask/eye shield, large sterile gown, bella rile gloves and cap. 5 ml of 1% Lidocaine was used for skin w heal. Ultrasound was used for guidance. Procedure Details: A 22 gauge finder needle was used to ian ntify the vein. An 18 Ga. X 2.5 inch Catheter needle was placed in vein after blood return identified. Guided by a 0.[address] guide wire, a 7 Fr., 2 lumen, 16 cm catheter was inserted usi ng the Seldinger Technique. Additional Catheter Details: Catheter type: antimicrobial coated. Catheter was a non tunneled. Insertion site was right, jugular (inter nal). There was 1 attempt(s). The catheter was sutured to the skin at 16 cm. The central line was placed over a guide wire. Sterile Dressing: Biopatch Findings: Patient tolerated procedure well., Blood returned appropriately. Complications: No Complications. Post Procedure: Chest x-ray ordered. Procedure Comments: Procedure Note Clint Feliciano MD - 09/03/2011 2:50 AM EDT Central Line Placement Procedure Note Indication for Central Line Insertion: New Catheter: volume replacement and acc ess This insertion was not to replace a malf unctioning central line. This insertion was not due to a suspecte d central line associated infection. Location of Procedure: labor and delivery Risks and Benefits: The risks and benefits of this procedure were reviewed and informed consent was obtained. Time Out: Prior to the start of the procedure, the patient's identity, intended procedure, site/side, correct patient positioning and presence of the site donal was confirmed as applicable. The medical history and chart were reviewed to rule out potential contraind ications to the planned procedure. Hand Hygiene: The photovoltaic installer did perform hand hygiene pr ior to central line insertion. Procedure Technique: Skin was prepped with chlorhexidine . Skin preparation agent was completely dr y at the time of first skin puncture. The following barrier precautions were u sed:large sterile drape, mask/eye shield, large sterile gown, sterile gloves and cap. 5 ml of 1% Lidocaine was used for skin w heal. Ultrasound was used for guidance. Procedure Details: A 22 gauge finder needle was used to ian ntify the vein. An 18 Ga. X 2.5 inch Catheter needle was placed in vein after blood return identified. Guided by a 0.035 inch diameter guide wire, a 7 Fr., 2 lumen, 16 cm catheter was inserted using the Seldinge r Technique. Additional Catheter Details: Catheter type: antimicrobial coated. Catheter was a non tunneled. Insertion site was right, jugular (inter nal). There was 1 attempt(s). The catheter was sutured to the skin at 16 cm. The central line was placed over a guide wire. Sterile Dressing: Biopatch Findings: Patient tolerated procedure well., Blood returned appropriately. Complications: No Complications. Post Procedure: Chest x-ray ordered. Procedure Comments: Eryn Jimenez MD PROCEDURE/MINOR SURGICAL ORD ERABLES Rapid Qual Drug Screen, Urine ([facility]) (09/03/2011 2:00 AM EDT) athologist Signature U LARISSA Screen See Note [facility] Comment: Urine drug of abuse results: ?Amphetamines Negative ?Methamphetamines Negative ?Barbiturates Negative ? Benzodiazepines Negative ? Cocaine metabolites Negative ? Methadone Negative ? Opiates Negativ e ?? Marijuana metabolites Negative ?Tricyclics Negative This urine drug testing device screens for: Amphetamines (AMP), Methamphetamines (mA MP), Opiates (OPI), Cocaine metabolites(CARLENE), Marijuana metabolites (THC), Benzodiazepines (BZO), Barbiturates (BAR), Methadone (MTD)and T ricyclic antidepressants (TCA). The amphetamine screen detects d-amphetamine use, and a separate methamphetamine screen detects d-methamphetamine use. Th is device does not detect oxycodone use. Be aware that this is only a QUALITATIVE SCREEN and must be used in conjunction with your clinical assessment of the pat ient. ??Results are NOT routinely confirmed by highly-defined methods, and are therefore reported as presumptive positive screens as such qualitative SC REEN RESULTS CANNOT BE USED FOR MEDICO-LEGAL purposes. ??As with any juanpablo litative drug screening device, there can be occasional false positive reading s from similar or dissimilar cross-reacting drugs. Please note: As of 06/01/2011 a new Drug of Abuse Urine testing device is being used in the [facility] Chemistry Laboratory. Anton hollins contact the chemistry laboratory at [phone] with questions. Specimen Anatomical Collection Method Collection Time Receive d Time (Source) Location / / Volume Laterality Urine specimen 09/03/2011 2:00 AM 012 3:03 (specimen) EDT AM EDT Resulting Agency Comment Spec In Lab Eryn Jimenez MD URINE ORDERABLES Performing Organization Address City/State/ZIP Code Phon e Number [place] [phone] [facility] documented in this encounter Visit Diagnoses Diagnosis Supervision of other normal (normal spontaneous vaginal deliver y) Normal delivery documented in this encounter Administered Medications Inactive Administered Medications - up to 3 most recent administrations Medication Order MAR Action Action Date Dose Rate Site acetaminophen (TYLENOL) tablet Given 09/04/2011 12:04 AM EDT 1,0 00 mg 1,000 mg 1,000 mg, Oral, EVERY 6 HOURS PRN, Starting on 09/03/11 at 1029, Until Tu09/05/11 at 2225, Pain, moderate pain, Maximum dose of acetaminophen is 4000 mg from all sources in 24 hours., Routine Given 09/03/2011 2:40 PM EDT 1,000 mg acetaminophen (TYLENOL) tablet 650 mg Given 09/05/2011 8:17 AM EDT 650 mg 650 mg, Oral, EVERY 4 HOURS PRN, Starting on 09/03/11 at 1029, Until Tu09/05/11 at 2225, Pain, mild pain, Maximum dose of acetaminophen is 4000 mg from all sources in 24 hours., Routine Given 09/04/2011 8:18 PM EDT 650 mg buprenorphine (SUBUTEX) sublingual table t 16 mg Given 09/03/2011 2:41 PM EDT 8 mg 16 mg, Sublingual, DAILY, First dose on 09/03/11 at 0900, Until Discontinued, Routine, Please indicate the name & specialty of the Attending Provider who authorized the use of this medication: Georgie Leija NM Given 09/03/2011 9:00 AM EDT 8 mg buprenorphine (SUBUTEX) sublingual table t 8 mg Given 09/05/2011 3:40 PM EDT 8 mg 8 mg, Sublingual, 2 TIMES DAILY, First dose on Sun09/03/11 at 1500, Until Discontinued, Routine, Please indicate the name & specialty of the Attending Provider who authorized the use of this medication: Georgie Reid, [place] Given 09/05/2011 5:16 AM EDT 8 mg Given 09/04/2011 3:10 PM EDT 8 mg diph,pertuss(acel),tet vac(PF) Given 09/05/2011 6:15 PM EDT 0.5 mLs Right Arm (ADACEL, Tdap) injection 0.5 mL 0.5 mL, Intramuscular, PRIOR TO DISCHARGE, Per Protocol, Starting on Sun09/05/11 at 1806, 1 dose, Until Sun09/05/11 at 1815 docusate sodium (COLACE) capsule 100 mg Given 09/05/2011 10:46 AM EDT 100 mg 100 mg, Oral, 2 TIMES DAILY, First dose on Sun09/03/11 at 1045, Until Discontinued, Routine Given 09/04/2011 9:00 PM EDT 100 mg Given 09/04/2011 9:00 AM EDT 100 mg fentaNYL (PF) 50 mcg/mL injection 1 dose, Starting on Sun09/03/11 at 0336, Until Sun09/03/11 at 0345, JOANNE ROMERO: Cabinet Override fentaNYL 50mcg/mL injection Given 09/03/2011 3:45 AM EDT 50 mcg 50-100 mcg, Intravenous, ONCE, 1 dose, On Sun09/03/11 at 0400, Routine ibuprofen (ADVIL;MOTRIN) tablet 600 mg Given 09/05/2011 4:29 PM EDT 600 mg 600 mg, Oral, EVERY 6 HOURS PRN, Starting on Sun09/03/11 at 1029, Until Sun09/05/11 at 2225, Pain, mild to moderate pain, Do not give if receiving ketorolac. Maximum dose of 3,200 mg from all sources in 24 hours., Routine Given 09/05/2011 4:00 AM EDT 600 mg Given 09/04/2011 8:55 PM EDT 600 mg lactated ringers 500 mL IV bolus Given 09/03/2011 3:15 AM EDT 500 mLs 500 mL/hr 500 mL, at 500 mL/hr, Intravenous, ONCE, 1 dose, On 09/03/11 at 0045, Prior to epidural placement or concerning heart rate pattern or maternal condition lactated ringers infusion New Bag 09/03/2011 4:15 AM EDT 125 mL/hr 125 mL/hr 125 mL/hr, Intravenous, CONTINUOUS, Starting on 09/03/11 at 0745, Until 09/03/11 at 1029 oxytocin (PITOCIN) 30 units in New Bag 09/03/2011 10:45 AM EDT 75 mL/hr 75 mL/hr sodium chloride 0.9% 500 mL infusion 75 mL/hr, Intravenous, ONCE, 1 dose, On 09/03/11 at 1045, ., Routine documented in this encounter Active and Recently Administered Medications Times are shown in EDT. Scheduled Medication Order 09/03/2011 09/04/2011 09/05/2011 buprenorphine (SUBUTEX) sublingual tablet 16 mg (CANCE LED) 0900 (Given - Provider: Melonie Alonzo RN - Comment: Pt only takes 8mg now.)1441 (Given - Provider: Sanjuana Tee RN) 16 mg, Sublingual, DAILY, First dose on 09/03/11 at 0900, Until Discontinued, Routine buprenorphine (SUBUTEX) sublingual tablet 8 mg (CANCEL ED) 1500 (Given - Provider: Sanjuana Tee RN) 0632 (Given - Provider: Maggie Sam RN - Comment: Takes at 0600 @ home)1510 (Given - Provider: Heike Koenig RN) 0516 (Given - Provider: Maureen Carmona, JARRED)1540 (Given - Provider: Shruthi Marcial RN) 8 mg, Sublingual, 2 TIMES DAILY, First d ose on 09/03/11 at 1500, Until Discontinued, Routine docusate sodium (COLACE) capsule 100 mg (CANCELED) 104 5 (Given - Provider: Sanjuana Tee RN)2100 (Due) 0900 (Given - Provider: Melonie Alonzo RN)2100 (Given - Provider: Maureen Carmona, RN) 1046 (Given - Provider: Shruthi Marcial, RN) 100 mg, Oral, 2 TIMES DAILY, First dose on 09/03/11 at 1045, Until Discontinued, Routine fentaNYL 50mcg/mL injection (COMPLETED) 0345 (Given - Provider: Joanne Romero, RN) 50-100 mcg, Intravenous, ONCE, 1 dose, 09/03/11 at 0400, Routi ne lactated ringers 500 mL IV bolus (COMPLETED) 0315 (Giv en - Provider: Joanne Romero, RN) 500 mL, at 500 mL/hr, Intravenous, ONCE, 1 dose, 09/03/11 at 0045, Prior to epidural placement or concerning heart rate pattern or maternal condition oxytocin (PITOCIN) 30 units in sodium chloride 0.9% 50 0 mL infusion (COMPLETED) 1045 (New Bag - Provider: Melonie Alonzo RN) 75 mL/hr, Intravenous, at 75 mL/hr, ONCE , 1 dose, 09/03/11 at 1045, ., Routine Continuous Medication Order 09/03/2011 09/04/2011 09/05/2011 lactated ringers infusion (CANCELED) 0415 (New Bag - P rovider: Joanne Romero, JARRED) 125 mL/hr, at 125 mL/hr, Intravenous, CO NTINUOUS, Starting 09/03/11 at 0745, Until 09/03/11 at 1029 PRN Medication Order 09/03/2011 09/04/2011 09/05/2011 acetaminophen (TYLENOL) tablet 1,000 mg (CANCELED) 144 0 (Given - Provider: Sanjuana Tee RN) 0004 (Given - Provider: Maggie Sam , JARRED)2018 (See Alternative - Provider: Maureen Carmona, JARRED) 0817 (See Alternative - Provider: Shruthi Marcial, JARRED) 1,000 mg, Oral, EVERY 6 HOURS PRN, Start ing 09/03/11 at 1029, Until 09/05/11 at 2225, Pain, moderate pain, Maximum dose of acetaminophen is 4000 mg from all sources in 24 hours., Routine acetaminophen (TYLENOL) tablet 650 mg 1440 (See Altern ative - Provider: Buffy F Meliment, RN) 0004 (See Alternative - Provider: Rashid Sam, RN)2017 (Given - Provider: Maureen Carmona, JARRED) 0817 (Given - Provider: Shruthi kee, RN) 650 mg, Oral, EVERY 4 HOURS PRN, Startin g 09/03/11 at 1029, Until 09/05/11 at 2225, Pain, mild pain, Maximum dose of acetaminophen is 4000 mg from all sources in 24 hours., Routine diph,pertuss(acel),tet vac(PF) (ADACEL, Tdap) injection 0.5 mL ( COMPLETED) 181 (Given - Provider: Shruthi Marcial, RN) 0.5 mL, Intramuscular, PRIOR TO DISCHARG E, 1 dose, Starting 09/05/11 at 1806, Until 09/05/11 at 1815, Per Protocol, Routine ibuprofen (ADVIL;MOTRIN) tablet 600 mg 1030 (Given - P rovider: Melonie Alonzo RN)1806 (Given - Provider: Joanne Holder, JARRED) 0830 (Given - Provider: Melonie Alonzo, JARRED)1420 (Given - Provider: Melonie Alonzo, JARRED)2055 (Given - Provider: Maureen Carmona, JARRED) 0400 (Given - Provider: Maureen Carmona, JARRED)1629 (Given - Provider: Shruthi Marcial, JARRED) 600 mg, Oral, EVERY 6 HOURS PRN, Startin g 09/03/11 at 1029, Until 09/05/11 at 2225, Pain, mild to moderate pain, Do not give if receiving ketorolac. Maximum dose of 3,200 mg from all sources in 24 hours., Routine documented in this encounter Care Teams Marine Pipefitter Helper Relationship Specialty Start Date End Date Shruthi Huang APRN PCP - General 02/17/11 03/11/12 documented as of this encounter
--- OUTSIDE RECORDS SUMMARY | 2022-02-03 15:56 | XMS_ITS | Encounter Summary ---
:1980 [place] [address] Care Team Providers Name Role Phone Sal Shruthi Stewart PATEL Primary Care Provider Encounter Details Date Type Department Care Team Description 09/03/2011 Anesthesia Event Birthing Jake Barrientos MD [facility] [place] [address] [place] [address] [phone] Anesthesia Record Procedure Summary Procedure Name Responsible Anesthesia Start Anesthesia Stop Time Anesthesiologist Time Central line, Labor analgesia Events No events on file. No medications on file. Agents No agents on file. Blood No blood administrations on file. Lines, Drains, and Airways Type Details Placement Removal (RETIRED) Central Line 09/03/11 0200 by Joanne Wolf Assessment/Intervention - veronika Polanco RN lumen documented in this encounter Social History Tobacco Use Types Packs/Day Years Used Date Never Smoker Smokeless Tobacco: Never Used Alcohol Use Standard Drinks/Week Comments No 0 (1 standard drink = 0.6 oz pure alcoho l) Sex Assigned at Date Recorded Not on file documented as of this encounter OR Notes Anesthesia Postprocedure Evaluation - Christiano Jessica MD - 09/04/2011 9:32 AM EDT Patient: Lindsay Odonnell Procedure(s) Performed: * No procedures listed * Patient location: Labor and Delivery Post-op pain: Adequate analgesia Post-op nausea: no nausea or vomiting Last Vitals: Filed Vitals: 09/04/11 0830 BP: 113/69 Pulse: 70 Temp: 37 ??C (98.6 ??F) Resp: 18 Post-op cardiovascular and respiratory status: is at baseline Level of consciousness: awake, alert and oriented Complications: no apparent complications and tolerated the procedure well Fluid Status: normal Pt received an epidural for labor and delivery analgesia. Reports good pain relief. Pt denies any weakness, numbness, difficulty ambulating, or difficulty voiding. Anesthesia Procedure Notes - Joanne Harvey MD - 09/03/2011 4:34 AM EDT Associated Order(s): ANE BLOCK 2; ANE BLOCK 2 Procedure Labor Analgesia Type: Epidural The patient was greeted; the risks and benefits were reviewed. The anesthetic consent was obtained. The medical history and chart were reviewed. The timeout was performed. Start time: 09/03/2011 4:10 AM End time: 09/03/2011 4:34 AM Patient Prep Position: Sitting Prep: chlorhexidine Injection technique: continuous Skin Anesthetic Lidocaine 1% 5 ml Procedure Technique Needle approach: midline Needle Type: Tuohy 18 ga Catheter at skin depth: 9.5 cm The epidural space was identified by a loss of resistance using saline and air at 8.5 cm. Number of attempts: 1 Bolus medication Bupivacaine 0.25% 5 ml bolus 0.125%, 5cc mcg Anesthesia Preprocedure Evaluation - Jake Domingo MD - 09/03/2011 2:57 AM EDT Anesthesia Evaluation Patient summary reviewed and Nursing notes reviewed No hx of anesthetic complications Airway Mallampati: III TM distance: >3 FB Neck ROM: full Dental - normal exam Pulmonary breath sounds clear to auscultation (-) asthma and recent URI Cardiovascular Exercise tolerance: good Rhythm: regular Rate: normal Neuro/Psych (+) psychiatric history GI/Hepatic/Renal (+) hepatitis, liver disease, Endo/Other Abdominal Anesthesia Plan ASA 2 at 39w4d admitted in active labor. Unsuccessful attempts at IV access by multiple providers. Right double-lumen IJ placed. Discussed options regarding labor analgesia including spinal and epidural and associated risks. Also discussed conduct of under spinal or epidural with GA as contingency. She has expressed interest in labor analgesia,. Her questions were answered and she has consented for the above. documented in this encounter Plan of Treatment Not on filedocumented as of this encounter Visit Diagnoses Not on filedocumented in this encounter Care Teams Fire Patrol Relationship Specialty Start Date End Date Shruthi Huang APRN PCP - General 02/17/11 03/11/12 documented as of this encounter
--- OUTSIDE RECORDS SUMMARY | 2022-02-03 15:56 | XMS_ITS | Encounter Summary ---
:1980 Author Organization [facility] [place] [address] Care Team Providers Name Role Phone Shruthi Huang APRN Primary Care Provider Reason for Visit Reason Comments Routine Visit Encounter Details Date Type Department Care Team Description 08/04/2011 Routine Obstetrics and Terra Faustin A: 35w3d Gynecology at [facility] [place] [address] OBSTETRICS & [phone] GYNECOLOGY [place], [place] [address] (Wo rk) Social History Tobacco Use Types Packs/Day Years Used Date Never Smoker Smokeless Tobacco: Never Used Alcohol Use Standard Drinks/Week Comments No 0 (1 standard drink = 0.6 oz pure alcoho l) Sex Assigned at Date Recorded Not on file documented as of this encounter Last Filed Vital Signs Vital Sign Reading Time Taken Comments Blood Pressure 108/68 08/04/2011 9:24 AM EDT Pulse - - Temperature - - Respiratory Rate - - Oxygen Saturation - - Inhaled Oxygen Concentration - - Weight 76.1 kg (167 lb 11.2 oz) 08/04/2011 9:24 AM EDT Height - - Body Mass Index 27.91 07/13/2011 9:27 AM EDT documented in this encounter Progress Notes Terra Faustin CNM - 08/04/2011 6:53 PM EDT Baby active. No bleeding, LOF, cramps/pain/contractions. Doing well, no questions, complaints, concerns. We discussed her last labor and concerns about this one, she will likely want an epidural. Foundmeeting with social work helpful at last visit. RV 2 - GBS testing next. Reviewed when to call, RV/call prn. documented in this encounter Plan of Treatment Not on filedocumented as of this encounter Visit Diagnoses Diagnosis Supervision of other normal - Primary documented in this encounter Care Teams Pool Installer Relationship Specialty Start Date End Date Shruthi Huang APRN PCP - General 02/17/11 03/11/12 documented as of this encounter
--- OUTSIDE RECORDS SUMMARY | 2022-02-03 15:56 | XMS_ITS | Encounter Summary ---
:1980 Author Organization [facility] [address] Care Team Providers Name Role Phone Shruthi Huang APRN Primary Care Provider Reason for Visit Reason Onset Date Comments Contractions 09/02/2011 Encounter Details Date Type Department Care Team Description 09/02/2011 Telephone Obstetrics and Gynecology Jerrell Vazquez MD Contractions at [facility] OBSTETRICS [place] [address] [place] [address] [phone] (Wo rk) Social History Tobacco Use Types Packs/Day Years Used Date Never Smoker Smokeless Tobacco: Never Used Alcohol Use Standard Drinks/Week Comments No 0 (1 standard drink = 0.6 oz pure alcoho l) Sex Assigned at Date Recorded Not on file documented as of this encounter Miscellaneous Notes Telephone Encounter - Jerrell Vazquez MD - 09/02/2011 7:13 PM EDT TELEPHONE NOTE Date of call: 09/02/2011 Time of call: 7:04 PM Caller: Patient Reason for call: Patient is 39w4d. She has been having contractions since 5AM. They are currently 2-6 minutes apart and irregular. She is able to talk through the contractions. She is and her last labor was 30h. She is at the Hospital in [place] currently to be checked as she does not have gas money to come down to [facility] more than once. I spoke to the RN in [place] - per her the cervix is posterior and fingertip only. Reactive NST Assessment: Latent labor. Plan/Instructions: Advised to monitor her contractions and if they are q2-3 minutes and stronger, over an hour then she should call back to come for further assessment. Patient verbalized understanding of and agreement with the plan. JERRELL VAZQUEZ MD 09/02/2011 documented in this encounter Plan of Treatment Not on filedocumented as of this encounter Visit Diagnoses Diagnosis Supervision of other normal documented in this encounter Care Teams Tool Room Lathe Operator Relationship Specialty Start Date End Date Shruthi Huang APRN PCP - General 02/17/11 03/11/12 documented as of this encounter
--- OUTSIDE RECORDS SUMMARY | 2022-02-03 15:56 | XMS_ITS | Encounter Summary ---
:1980 Author Organization [facility] [place] [address] Care Team Providers Name Role Phone Princess Henley MD Primary Care Provider Encounter Details Date Type Department Care Team Description 04/11/2012 External Results XRay at [facility] Provider, Scanning [address] [place] [address] Social History Tobacco Use Types Packs/Day [...] Name Priority Date/Time Associated Diagnosis Comme nts MRI/MRA SCAN Routine 04/01/2012 documented in this encounter Results Scan Doc: MRI/MRA (04/01/2012) Anatomical Region Laterality Modality Other Narrative This result has an attachment that is no t available. Scanning Provider MEDIA MGR SCAN EXT ORDR/RSLT documented in this encounter Visit Diagnoses Not on filedocumented in this encounter Care Teams Consultant Intern Relationship Specialty Start Date End Date Princess Henley MD PCP - General 03/12/12 04/26/[address] [place] [phone] documented as of this encounter
--- OUTSIDE RECORDS SUMMARY | 2022-02-03 15:56 | XMS_ITS | Encounter Summary ---
:1980 Author Organization [facility] [place] [address] Care Team Providers Name Role Phone Shruthi Huang APRN Primary Care Provider Reason for Visit Reason Comments Routine Visit Encounter Details Date Type Department Care Team Description 04/14/2011 Routine Obstetrics and CLINIC, DR BENAVIDEZ GA: 19 w3d Gynecology at [facility] Sameer Powers MD [facility] OBSTETRICS & [place] [address] [facility] [place] [address] Social History Tobacco Use Types Packs/Day Years Used Date Never Smoker Alcohol Use Standard Drinks/Week Comments No 0 (1 standard drink = 0.6 oz pure alcoho l) Sex Assigned at Date Recorded Not on file documented as of this encounter Last Filed Vital Signs Vital Sign Reading Time Taken Comments Blood Pressure 100/64 04/14/2011 1:53 PM EST Pulse - - Temperature - - Respiratory Rate - - Oxygen Saturation - - Inhaled Oxygen Concentration - - Weight 64.4 kg (141 lb 14.4 oz) 04/14/2011 1:53 PM EST Height - - Body Mass Index 23.61 03/03/2011 2:13 PM EDT documented in this encounter Progress Notes Sonya Powell MD - 04/20/2011 2:13 AM EST The case was discussed at the time of the visit or immediately after the visit. The assessment and plan were formulated in discussion with me and I agree with them as documented. I have reviewed the history, physical exam, assessment and plan with the resident. Major issues discussed today: visit. Pt on subutex. Discussed with Lata Bucio who agreed that these pts are typically on [facility] service. Plan: Transfer to [facility] for PNC. Will check Hep C titer and LFTs. Sonya Powell MD Sameer Powers - 04/14/2011 2:29 PM EST Patient presented to review her morphology scan which was without abnormality. Dr. Eugene manages her subutex. She is on subutex 16mg since the beginning of . She states he wants her to taper and discontinue this prior to delivery. We discussed that for many of the patients in this practice they do continue on subutex for the duration of the . We had discussed PATEL scoring at a prior visit. A/P 1) After discussion with Dr. Powell it was agreed patient should be followed by [facility]. Discussed with patient who voiced understanding. 2) Patient does not yet have hepatitis C viral titers in the system. After calling the lab they explained there was not enough blood for the study. Patient is known to be a very hard blood draw secondary to history of IVDU. Encouraged her to get blood drawn again today. Sameer Powers PGY2 D/W Dr. Powell documented in this encounter Plan of Treatment Pending Results Name Type Priority Associated Diagnoses Date/Ti de Hepatitis C RNA, Lab Routine Hepatitis C 07/13/2011 11:06 AM EDT quantitative, PCR Scheduled Orders Name Type Priority Associated Diagnoses Order S chedule Hepatitis C RNA, Lab Routine Hepatitis C Expected: 1 06/15/2010, quantitative, PCR Expires: 1 06/15/2011 documented as of this encounter Visit Diagnoses Diagnosis Hepatitis C - Primary Unspecified viral hepatitis C without he patic coma documented in this encounter Care Teams Cuff Cutter Relationship Specialty Start Date End Date Shruthi Huang APRN PCP - General 02/17/11 03/11/12 documented as of this encounter
--- OUTSIDE RECORDS SUMMARY | 2022-02-03 15:56 | XMS_ITS | Encounter Summary ---
:1980 Author Organization [facility] [place] [address] Care Team Providers Name Role Phone Shruthi Huang APRN Primary Care Provider Reason for Visit Reason Onset Date Comments Contractions 09/02/2011 Encounter Details Date Type Department Care Team Description 09/02/2011 Telephone Obstetrics and Gynecology Jerrell Vazquez MD Contractions at [facility]le [facility] OBSTETRICS & [place] [address] [place] [address] [phone] (Wo rk) Social History Tobacco Use Types Packs/Day Years Used Date Never Smoker Smokeless Tobacco: Never Used Alcohol Use Standard Drinks/Week Comments No 0 (1 standard drink = 0.6 oz pure alcoho l) Sex Assigned at Date Recorded Not on file documented as of this encounter Miscellaneous Notes Telephone Encounter - Jerrell Vazquez MD - 09/02/2011 9:27 PM EDT TELEPHONE NOTE Date of call: 09/02/2011 Time of call: 9:25 PM Caller: Patient Reason for call: Patient called earlier. Her contractions are now q2-3 minutes apart and are much more painful. She is wondering if she is in labor but is concerned that she does not want to have to make the trip [place] [facility] [place] she is not in labor as she does not have gas money for multiple trips. Assessment: Lindsay Odonnell is a 30 y.o. female with possible labor. Plan/Instructions: Advised that we cannot rule out labor without cervical exam. However, patient would like to be checked first at [facility] where she was seen earlier. She is going to call them first. JERRELL VAZQUEZ MD 09/02/2011 documented in this encounter Plan of Treatment Not on filedocumented as of this encounter Visit Diagnoses Diagnosis Supervision of other normal documented in this encounter Care Teams Public Relations Writer Relationship Specialty Start Date End Date Shruthi Huang APRN PCP - General 02/17/11 03/11/12 documented as of this encounter
--- OUTSIDE RECORDS SUMMARY | 2022-02-03 15:56 | XMS_ITS | Encounter Summary ---
:1980 Author Organization [facility] [place] [address] Care Team Providers Name Role Phone Shruthi Huang APRN Primary Care Provider Encounter Details Date Type Department Care Team Description 07/13/2011 Hospital Encounter Laboratory Sonya Powell MD Hepatitis C [facility] [place] [address] OBSTETRICS & [phone] GYNECOLOGY [place] [address] (Wo rk) Social History Tobacco Use Types Packs/Day Years Used Date Never Smoker Smokeless Tobacco: Never Used Alcohol Use Standard Drinks/Week Comments No 0 (1 standard drink = 0.6 oz pure alcoho l) Sex Assigned at Date Recorded Not on file documented as of this encounter Medications at Time of Discharge Medication Sig Dispensed Refills Start Date End Date vitamin 27 & Take 1 tablet by 0 07/25/2012 [id number] 60 mg mouth daily. iron-1 mg tablet buprenorphine (SUBUTEX) 2 Place 16 mg under 0 09/05/2011 mg Subl the tongue daily. documented as of this encounter Plan of Treatment Pending Results Name Type Priority Associated Diagnoses Date/Ti me Hepatitis C RNA, Lab Routine Hepatitis C 07/13/2011 11:06 AM EDT quantitative, PCR Scheduled Orders Name Type Priority Associated Diagnoses Order S chedule Hepatitis C RNA, Lab Routine Hepatitis C 1 Occurrenc es starting quantitative, PCR 07/13/2011 documented as of this encounter Visit Diagnoses Diagnosis Hepatitis C Unspecified viral hepatitis C without he patic coma documented in this encounter Care Teams Mail Processor Relationship Specialty Start Date End Date Shruthi Huang APRN PCP - General 02/17/11 03/11/12 documented as of this encounter
--- OUTSIDE RECORDS SUMMARY | 2022-02-03 15:56 | XMS_ITS | Encounter Summary ---
:1980 [place] [address] Care Team Providers Name Role Phone Shruthi Huang APRN Primary Care Provider Reason for Visit Reason Onset Date Comments Questions 05/29/2011 Encounter Details Date Type Department Care Team Description 05/29/2011 Telephone Obstetrics and Gynecology Jami Lujan RN Questions at [address] [address] [place] [address] [phone] Social History Tobacco Use Types Packs/Day Years Used Date Never Smoker Alcohol Use Standard Drinks/Week Comments No 0 (1 standard drink = 0.6 oz pure alcoho l) Sex Assigned at Date Recorded Not on file documented as of this encounter Miscellaneous Notes Telephone Encounter - Jami Christy RN - 05/29/2011 4:32 PM EST TELEPHONE NOTE Caller: Patient Reason for call: Patient is an OB patient who is asking why she was scheduled today with the TON, Abel Villegas. Assessment: OB patient with concerns about meeting the manager social, cancelling appt today. Plan/Instructions: Discussed this at some length as regards to the role of the manager social and herrisks. Patient agrees to reschedule. documented in this encounter Plan of Treatment Not on filedocumented as of this encounter Visit Diagnoses Not on filedocumented in this encounter Care Teams Hand Hardener Relationship Specialty Start Date End Date Shruthi Huang APRN PCP - General 02/17/11 03/11/12 documented as of this encounter
--- OUTSIDE RECORDS SUMMARY | 2022-02-03 15:56 | XMS_ITS | Encounter Summary ---
:1980 [place] [address] Care Team Providers Name Role Phone Shruthi Huang APRN Primary Care Provider Reason for Visit Reason Onset Date Comments Results 02/24/2011 Encounter Details Date Type Department Care Team Description 02/24/2011 Telephone Obstetrics and Gynecology Jami Lujan, RN Results at [address] [address] [place] [address] [phone] Social History Tobacco Use Types Packs/Day Years Used Date Never Assessed Sex Assigned at Date Recorded Not on file documented as of this encounter Miscellaneous Notes Telephone Encounter - Jami Christy RN - 02/24/2011 11:49 AM EDT TELEPHONE NOTE Caller: Anel from [facility] in [place] Reason for call: Patient was seen there in their clinic and wanted to report the iron level that wasdone there today. Assessment: Hcg 9.8 today per their machine. Plan/Instructions: Patient has begun on oral iron supplementation.Will let the provider know. documented in this encounter Plan of Treatment Not on filedocumented as of this encounter Visit Diagnoses Not on filedocumented in this encounter Care Teams Parish Nurse Relationship Specialty Start Date End Date Shruthi Huang APRN PCP - General 02/17/11 03/11/12 documented as of this encounter
--- OUTSIDE RECORDS SUMMARY | 2022-02-03 15:56 | XMS_ITS | Encounter Summary ---
:1980 Author Organization [facility] [place] [address] Care Team Providers Name Role Phone Princess Henley MD Primary Care Provider Encounter Details Date Type Department Care Team Description 09/06/2012 Hospital Encounter MRI at [facility], Ulnar nerve injury, at elbow ; [facility] CONV Median ne [place]ve injury, [place] [phone] Social History Tobacco Use Types Packs/Day Years [...] - - Weight 65.8 kg (145 lb) 09/06/2012 6:12 AM EDT Height - - Body Mass Index 24.32 09/04/2012 10:11 AM EDT documented in this encounter Medications [...] moderate pain). documented as of this encounter Progress Notes Frieda Kyle RN - 09/06/2012 2:14 PM EDT Pt's right IJ line removed by this RN. I held pressure x 5 minutes. No bleeding noted. Pt d/c'd withfamily at side. Linwood Welch RN - 09/06/2012 10:30 AM EDT FOR THE PHYSICIAN CARING FOR THIS PATIENT: The Vascular Access Service has identified this patient as a candidate for a PICC (Peripherally Inserted Central Catheter) for the following reasons. __X___This patient has extremely poor peripheral vascular access resulting in multiple venipuncturesfor Phlebotomy/ IV access, increasing the risk for infection and decreasing patient comfort/ satisfaction. __X___This patient has been 'turned back' by the Vascular Access Service, meaning we are unable to gain or maintain peripheral IV access in this patient. Patient admission requiring IV Therapy/ phlebotomy for greater than 6 days is likely with probable vesicant infusions. IV Drug is an irritant/vesicant having safety risks associated with possible significant extravasation injury. Multiple Incompatible medications requiring multiple central lumens. This nurse has also contacted regarding this patient's Vascular Access status, ( enter date and time) Thank you documented in this encounter Miscellaneous Notes Miscellaneous - Provider, Scanning - 09/10/2012 7:57 AM EDT documented in this encounter Plan of Treatment Not on filedocumented as of this encounter Procedures Procedure Name Priority Date/Time Associated Diagnosis Comme nts MRI UPPER EXTREMITY Routine 09/06/2012 1:50 PM Ulnar nerve inj ury, Results for this ANGIOGRAM EDT at elbow procedure are in Median nerve injury, the res ults at the elbow section. documented in this encounter Results MRI upper extremity angiogram [...] the limitations of this e xamination. Yan Henriquez MD IMG MRI ORDERABLES documented in this encounter Visit Diagnoses Diagnosis Ulnar nerve injury, at elbow Injury to ulnar nerve Median nerve injury, at the elbow Injury to median nerve documented in this encounter Administered Medications Inactive Administered Medications - up to 3 most recent administrations Medication Order MAR Action Action Date Dose Rate Site gadopentetate dimeglumine Given 09/06/2012 1:50 PM EDT 13 mLs (MAGNEVIST) injection 13 mL 13 mL (0.2 mL/kg/dose ? 65.8 kg), Intravenous, ONCE PRN, 1 dose, Starting on Sun09/06/12 at 0612, Until Sun09/06/12 at 1350, Per Protocol, Routine documented in this encounter Care Teams Felt Puller Relationship Specialty Start Date End Date Princess Henley MD PCP - General 03/12/12 04/26/15 [address] [place] [address] documented as of this encounter
--- OUTSIDE RECORDS SUMMARY | 2022-02-03 15:56 | XMS_ITS | Encounter Summary ---
:1980 Author Organization [facility] [place] [address] Care Team Providers Name Role Phone Shruthi Huang APRN Primary Care Provider Reason for Visit Reason Onset Date Comments Initial Visit 02/17/2011 booking NOB appt Encounter Details Date Type Department Care Team Description 02/17/2011 Telephone Obstetrics and Sherrie Ramesh, Initial P renatal Visit Gynecology at [facility] RN (booking NOB appt) [place] [address] Social History Tobacco Use Types Packs/Day Years Used Date Never Assessed Sex Assigned at Date Recorded Not on file documented as of this encounter Miscellaneous Notes Telephone Encounter - Sherrie Ramesh - 02/17/2011 2:01 PM EDT TELEPHONE NOTE Date of call: 02/17/2011 Time of call: 1:55 PM Caller: SHERRIE RAMESH RN Reason for call: returning patient call to our [facility]. Patient called to schedule NOB appt. She states she is about 14 weeks and had gone to [facility] for her first OB appointment. She stated that they did not have a good first appt and wanted to switch care. She then proceeded to tell thesecretary that [facility] pushed on her belly for a while trying to find a FHT and was not successful. She has a scant amount of bright red bleeding that has resolved since her appointment. She also supposed to go to ultrasound since they were unable to find FHT and she only did her blood work and did not go for the ultrasound. Assessment: Plan/Instructions: I called patient and encouraged her to return for her ultrasound and then transfer care to us. The [facility] had already booked her for an NOB next week. I discussed she should really make sure there is FHT before transferring care to our facility. I explained we are more than happyto resume her care but it is in the best interest of her and her fetus to make sure all is well first. Patient agrees with plan and I asked she keep up updated. Sherrie Ramesh, RN [facility] Nurse Coordinator [phone] documented in this encounter Plan of Treatment Not on filedocumented as of this encounter Visit Diagnoses Not on filedocumented in this encounter Care Teams Rougher Helper Relationship Specialty Start Date End Date Shruthi Huang APRN PCP - General 02/17/11 03/11/12 documented as of this encounter
--- OUTSIDE RECORDS SUMMARY | 2022-02-03 15:56 | XMS_ITS | Encounter Summary ---
:1980 Author Organization [facility] [address] Care Team Providers Name Role Phone Princess Henley MD Primary Care Provider Encounter Details Date Type Department Care Team Description 07/25/2012 Office Visit Research at [facility] [place] Carlee Sandoval, Ulnar nerve injury, at elbow (Primary Dx); [facility] Median nerve injury, [place] [address] PEDIATRIC SURGERY [phone] [place], [place] [address] Social History Tobacco Use Types Packs/Day Years Used Date Never Smoker Smokeless Tobacco: Never Used Alcohol Use Standard Drinks/Week Comments No 0 (1 standard drink = 0.6 oz pure alcoho l) Sex Assigned at Date Recorded Not on file documented as of this encounter Progress Notes Carlee Sandoval MD - 07/25/2012 9:32 AM EDT PERIPHERAL NERVE SURGERY CONSULTATION CC: Ulnar and median nerve injury at the elbow HPI: Lindsay Odonnell is a 31 y.o. female who is here for evaluation of bilateral ulnar and median nerve compression. She is self referred for her appointment today. She reports the injury occurred as a result of IV drug use and by having a tunicate on her arm for too long. This occurred approximately three years ago. She reports her hand is very sensitive to cold. She has no median or ulnar nervefunction. She has near normal radial nerve function. She is very anxious about anyone seeing her scars and has anxiety attacks. Past Medical History Diagnosis Date ??? History of substance abuse - IVDU 03/11/2011 ??? Hepatitis C 03/11/2011 ??? History of endometriosis 03/11/2011 ??? Depression as a teen, cutting history, currently not a problem Past Surgical History Procedure Date ??? Laparoscopy 2006 ablation of endometriosis Social History Works at [employer], with a 9 year old and 10 1/2 year old No Known Allergies Current Outpatient Prescriptions on File Prior to Visit Medication Sig Dispense Refill ??? buprenorphine-naloxone (SUBOXONE) 8-[address] 2 tablets under the tongue daily. ??? acetaminophen (TYLENOL) 325 mg tablet Take 2 tablets by mouth every 4 hours as needed for Pain (mild pain). 30 tablet 0 ??? buprenorphine (SUBUTEX) [address] 4 tablets under the tongue 2 times daily. 1 tablet 0 ??? ibuprofen (ADVIL;MOTRIN) 600 mg tablet Take 1 tablet by mouth every 6 hours as needed for Pain (mild to moderate pain). 30 tablet 0 ? ? DISCONTD: vitamin 27 & [id number]-XQ 60 mg iron-1 mg tablet Take 1 tablet by mouth daily. REVIEW OF SYSTEMS: GI, . Psych, Neuro, Renal, Immun., Heme, Card, Pulm: Negative EXAMINATION: A limited exam of the left upper extremity was done. Atrophy of thenar muscle, able to abduct Atrophy of FDI Weak abduction of her fingers and thumb 2/5 Able to flex fingers and thumb but lacks intrinsics FDP intact FDS Intact to index, long, and little fingers FCR intact FCU intact Intact EIP and EDM Able to extend thumb Able to extend fingers at MPJ 5/5 2/4 radial pulse 2/4 ulnar pulse Able to pronate and supinate Able to extend wrist 5/5 Hand is discolored and cooler than the contralateral hand Delayed capillary refill Diagnostic Testing: EMG testing ulnar and median neuropathy at the elbow at [facility] on 03/08/12. Radial nerve function was normal. Assessment: Lindsay Odonnell 31 y.o. 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 Prior to this, we would like to obtain a MRI/MRA of the upper extremity to further evaluate the muscles/arteries of the arm to aid in surgical decision making. We discussed potential risks and complications which include but are not limited to:Pain, bleeding, infection, scarring, asymmetry, hematoma, seroma, poor cosmetic outcome, failure of procedure, possible need for revision, damage to adjacent structures.She understands and she would like to be able to open her fingers. We will revisit with her again in a combined appointment with Dr Yan Henriquez following her MRI documented in this encounter Plan of Treatment Not on filedocumented as of this encounter Visit Diagnoses Diagnosis Ulnar nerve injury, at elbow - Primary Injury to ulnar nerve Median nerve injury, at the elbow Injury to median nerve documented in this encounter Care Teams Project Management Relationship Specialty Start Date End Date Princess Henley MD PCP - General 03/12/12 04/26/15 [address] [place] [id number] documented as of this encounter
--- OUTSIDE RECORDS SUMMARY | 2022-02-03 15:56 | XMS_ITS | Encounter Summary ---
:1980 Author Organization [facility] [place] [address] Care Team Providers Name Role Phone Shruthi Huang APRN Primary Care Provider Reason for Visit Reason Comments Routine Visit Encounter Details Date Type Department Care Team Description 03/27/2011 Routine Obstetrics and Faye Rosas, [place] : [id number] Gynecology at [facility] [place] [address] OBSTETRICS & [phone] GYNECOLOGY [place], [place] [address] (Wo rk) Social History Tobacco Use Types Packs/Day Years Used Date Never Smoker Alcohol Use Standard Drinks/Week Comments No 0 (1 standard drink = 0.6 oz pure alcoho l) Sex Assigned at Date Recorded Not on file documented as of this encounter Last Filed Vital Signs Vital Sign Reading Time Taken Comments Blood Pressure 94/56 03/27/2011 9:40 AM EST Pulse - - Temperature - - Respiratory Rate - - Oxygen Saturation - - Inhaled Oxygen Concentration - - Weight 63.3 kg (139 lb 8 oz) 03/27/2011 9:40 AM EST Height - - Body Mass Index 23.21 03/03/2011 2:13 PM EDT documented in this encounter Progress Notes Wally Pearl MD - 03/27/2011 11:01 AM EST The case was discussed at the time of the visit or immediately after the visit. The assessment and plan were formulated in discussion with me and I agree with them as documented. I have reviewed the history, physical exam, assessment and plan with the resident. WALLY PEARL MD Faye Rosas MD - 03/27/2011 10:27 AM EST 30 yo at 16.6 by 1st trimester US presents for routine PNC. No complaints. No movementyet. No vaginal bleeding, no gush of fluid, no contractions. The lab was unable to obtain her labs at last visit. She is willing to have them try again.She and her partner have also said they have reconsidered and are not interested in screening anymore. She says her subutex program is going well and she is on an appropriate dose with no symptoms of withdrawal. She is considering weaning her subutex. We discussed withdrawal syndrome and I deferred management to her subutex prescriber. PE: BP 94/56 Wt 63.277 kg (139 lb 8 oz) LMP 11/12/2010 Fundus s=d, below umbilicus. FH+. Plan: scheduled for morphology US at 19-20 weeks. F/u in clinic at that time. Will attempt to obtainprenatal lab panel, and hepatitis C viral RNA PCR. documented in this encounter Miscellaneous Notes Miscellaneous - Lio Kelly - 03/27/2011 2:27 PM EST documented in this encounter Plan of Treatment Pending Results Name Type Priority Associated Diagnoses Date/Ti me Hepatitis C RNA, Lab Routine Supervision of other 10:37 AM EST quantitative, PCR normal Scheduled Orders Name Type Priority Associated Diagnoses Order S chedule Hepatitis C RNA, Lab Routine Supervision of other Exp ected: 03/27/2011, quantitative, PCR normal s: 03/27/2012 documented as of this encounter Procedures Procedure Name Priority Date/Time Associated Diagnosis Comme nts ABO/RH TYPING Routine 03/27/2011 11:41 Supervision of other Re sults for this AM EST normal procedure a re in the results section. ANTIBODY SCREEN Routine 03/27/2011 11:41 Supervision of other Results for this AM EST normal procedure a re in the results section. DIFFERENTIAL, Routine 03/27/2011 11:12 Results fo r this AUTOMATED AM EST procedure are i n the results section. SYPHILIS ANTIBODY Routine 03/27/2011 11:12 Supervision of othe r Results for this SCREEN WITH REFLEX AM EST normal proce dure are in the results section. RUBELLA ANTIBODY, Routine 03/27/2011 11:12 Supervision of othe r Results for this IGG AM EST normal procedure a re in the results section. HIV SCREEN, 4TH Routine 03/27/2011 11:12 Supervision of other Results for this GENERATION AM EST normal procedure a re in ([facility] the resul ts section. HEPATITIS B SURFACE Routine 03/27/2011 11:12 Supervision of ot her Results for this ANTIGEN AM EST normal procedure a re in the results section. CBC (WITH DIFF) Routine 03/27/2011 11:12 Supervision of other Results for this AM EST normal procedure a re in the results section. SCREEN Routine 03/27/2011 10:37 Supervision of other ([facility] AM EST normal documented in this encounter Results ANTIBODY SCREEN (03/27/2011 11:41 AM EST) Analysis Performed At Patho logist Time Signature Ab Screen Negative [facility] Expires at [id number] [facility] [phone] on: [facility] Specimen Anatomical Collection Method Collection Time Receive d Time (Source) Location / / Volume Laterality Blood specimen 03/27/2011 11:41 1 (specimen) AM EST 11:48 AM EST Wally Pearl MD BLOOD BANK ORDERABLES Performing Organization Address City/State/[place] [address] [facility] ABO/RH TYPING (03/27/2011 11:41 AM EST) P athologist Signature ABORh Type A Pos [facility] Specimen Anatomical Collection Method Collection Time Receive d Time (Source) Location / / Volume Laterality Blood specimen 03/27/2011 11:41 1 (specimen) AM EST 11:48 AM EST Wally Pearl MD BLOOD BANK ORDERABLES Performing Organization Address City/[facility]/ZIP Code Phon e Number [address] CERNER MILLENNIUM (ABNORMAL) DIFFERENTIAL, AUTOMATED (03/27/2011 11:12 AM EST) [facility] Method Time Signature Neutrophils % 73.0 (H) 34.0 - CERNER 71.0 % MILLENNIUM Neutr Abs (ANC) 4.52 1.50 - CERNER 6.30 MILLENNIUM x10(3)/mc L Lymphocytes % 19.2 19.0 - CERNER 53.0 % MILLENNIUM Lymphocytes Abs 1.2 1.0 - 3.6 CERNER x10(3)/mc MILLENNIUM L Monocytes % 5.6 4.0 - CERNER 13.0 % MILLENNIUM Monocyte Abs 0.4 0.2 - 1.0 CERNER x10(3)/mc MILLENNIUM L Eosinophils % 1.3 0.0 - 7.0 CERNER % MILLENNIUM Eosinophils Abs 0.1 0.0 - 0.5 CERNER x10(3)/mc MILLENNIUM L Basophils % 0.3 0.0 - 2.0 CERNER % MILLENNIUM Basophils [...] differential will be performed. Carrie Gran Abs 0.04 0.00 - 0.05 x10(3)/mcL CER NER MILLENNIUM Specimen Anatomical Collection Method Collection Time Receive d Time (Source) Location / / Volume Laterality Blood specimen 03/27/2011 11:12 1 (specimen) AM EST 11:48 AM EST Wally Pearl MD HEMATOLOGY ORDERABLES Performing Organization Address City/[facility]/ZIP [place] [address] [facility] RUBELLA ANTIBODY, IGG (03/27/2011 11:12 AM EST) P athologist Signature Rubella IgG Positive Positive [facility] Comment: Please note: ??A positive result for thi s assay indicates that antibody levels are >or= 10.0 IU/mL and is considered to be an indicator of positive immune status. Specimen Anatomical Collection Method Collection Time Receive d Time (Source) Location / / Volume Laterality Blood specimen 03/27/2011 11:12 1 (specimen) AM EST 11:20 AM EST Wally Pearl MD IMMUNOLOGY ORDERABLES Performing Organization Address City/[facility]/ZIP Code Phon e Number [address] [facility] HEPATITIS B SURFACE ANTIGEN (03/27/2011 11:12 AM EST) Analysis Performed At Patho logist Time Signature HepB Surface Negative Negative [facility] Specimen Anatomical Collection Method Collection Time Receive d Time (Source) Location / / Volume Laterality Blood specimen 03/27/2011 11:12 1 (specimen) AM EST 11:20 AM EST Wally Pearl MD CHEMISTRY ORDERABLES Performing Organization Address City/[facility]/ZIP Code Phon e Number [address] [facility] SYPHILIS ANTIBODY, IGG (03/27/2011 11:12 AM EST) athologist Signature Syphilis IgG Negative Negative [facility] Specimen Anatomical Collection Method Collection Time Receive d Time (Source) Location / / Volume Laterality Blood specimen 03/27/2011 11:12 1 1:10 (specimen) AM EST PM EST Wally Pearl MD IMMUNOLOGY ORDERABLES Performing Organization Address City/[facility]/ZIP Code Phon e Number [address] [facility] (ABNORMAL) CBC (WITH DIFF) (03/27/2011 11:12 AM EST) P athologist Signature WBC 6.2 4.0 - 10.0 CERNER x10(3)/mcL MILLENNIUM RBC 4.21 3.93 - 5.22 CERNER x10(6)/mcL MILLENNIUM Hemoglobin 11.8 11.2 - 15.7 CERNER gm/dL MILLENNIUM Hematocrit 35.2 34.0 - 45.0 CERNER % MILLENNIUM MCV 83.6 79.0 - 94.0 CERNER fL MILLENNIUM MCH 28.0 26.6 - 32.2 CERNER pg MILLENNIUM MCHC 33.5 32.0 - 36.5 CERNER gm/dL [facility] Platelets 144 (L) 145 - 370 CERNER x10(3)/mcL MILLENNIUM RDWSD 42.8 35.0 - 46.0 [facility] fL [facility] RDWCV 14.1 10.9 - 14.4 [facility] % MILLENNIUM MPV 11.3 9.0 - 12.0 [facility] Specimen Anatomical Collection Method Collection Time Receive d Time (Source) Location / / Volume Laterality Blood specimen 03/27/2011 11:12 1 (specimen) AM EST 11:48 AM EST Wally Pearl MD HEMATOLOGY ORDERABLES Performing Organization Address City/[facility] [place] [address] [facility] HIV (03/27/2011 11:12 AM EST) P athologist Signature HIV 1/2 Ab Negative [facility] Specimen Anatomical Collection Method Collection Time Receive d Time (Source) Location / / Volume Laterality Blood specimen 03/27/2011 11:12 1 (specimen) AM EST 11:20 AM EST Wally Pearl MD IMMUNOLOGY ORDERABLES Performing Organization Address City/[facility] [place] [address] [facility] documented in this encounter Visit Diagnoses Diagnosis Supervision of other normal - Primary documented in this encounter Care Teams Seal Delivery Vehicle Team Technician Relationship Specialty Start Date End Date Shruthi Huang APRN PCP - General 02/17/11 03/11/12 documented as of this encounter
--- OUTSIDE RECORDS SUMMARY | 2022-02-03 15:56 | XMS_ITS | Encounter Summary ---
:1980 Author Organization [facility] [place] [address] Care Team Providers Name Role Phone Shruthi Huang APRN Primary Care Provider Encounter Details Date Type Department Care Team Description 07/13/2011 Hospital Encounter Laboratory Gage Wade Supervision of high-risk pre gnancy; [facility] MD [place] Hepatitis C [facility] [phone] OBSTETRICS & [phone] [address] Social History Tobacco Use Types Packs/Day Years [...] & Take 1 tablet by 0 07/25/2012 aterzjo-rnzn-PS 60 mg mouth daily. iron-1 mg tablet [...] PCR 07/13/2011 documented as of this encounter Procedures Procedure Name Priority Date/Time Associated Diagnosis Comme nts GLUCOSE 1 HOUR POST Routine 07/13/2011 11:34 AM Supervision of Results for this PRANDIAL EDT high-risk procedur e are in the results section. documented in this encounter Results Glucose 1 Hour Post Prandial (07/13/2011 11:34 AM EDT) P athologist Signature Glucose, 1Hr 129 mg/dL LIANG PP MILLENNIUM Specimen Anatomical Collection Method Collection Time Receive d Time (Source) Location / / Volume Laterality Blood specimen 07/13/2011 11:34 2 (specimen) AM EDT 11:38 AM EDT Resulting Agency Comment Spec In Lab Gage Wade MD CHEMISTRY ORDERABLES Performing Organization Address City/State/[place] [address] [facility] documented in this encounter Visit Diagnoses Diagnosis Supervision of high-risk Unspecified high-risk Hepatitis C Unspecified viral hepatitis C without he patic coma documented in this encounter Care Teams Sales And Marketing Assistant Relationship Specialty Start Date End Date Shruthi Huang APRN PCP - General 02/17/11 03/11/12 documented as of this encounter
--- OUTSIDE RECORDS SUMMARY | 2022-02-03 15:56 | XMS_ITS | Encounter Summary ---
:1980 Author Organization [facility] [place] [address] Care Team Providers Name Role Phone Shruthi Huang APRN Primary Care Provider Encounter Details Date Type Department Care Team Description 04/14/2011 Hospital Encounter [place] [facility] Supervision of other [facility] [place] [address] Social History Tobacco Use Types Packs/Day Years Used Date Never Smoker Alcohol Use Standard Drinks/Week Comments No 0 (1 standard drink = 0.6 oz pure alcoho l) Sex Assigned at Date Recorded Not on file documented as of this encounter Medications at Time of Discharge Medication Sig Dispensed Refills Start Date End Date ceFURoxime (CEFTIN) 500 mg Take 500 mg by 0 05/18/2011 tablet mouth 2 times daily. vitamin 27 & Take 1 tablet by 0 07/25/2012 mymxxen-eubv-PT 60 mg mouth daily. iron-1 mg tablet buprenorphine (SUBUTEX) 2 Place 16 mg under 0 09/05/2011 mg Subl the tongue daily. documented as of this encounter Plan of Treatment Not on filedocumented as of this encounter Procedures Procedure Name Priority Date/Time Associated Diagnosis Comme nts US OB SCREENING Routine 04/14/2011 1:30 PM Supervision of othe r Results for this MORPHOLOGY EST normal procedure a re in the results section. documented in this encounter Results US OBS screening morphology (04/14/2011 1:30 PM EST) Anatomical Region Laterality Modality Pelvis, Abdomen Ultrasound Specimen (Source) Anatomical Collection Method Collection Time Re ceived Time Location / / Volume Laterality 04/14/2011 1:30 PM EST Narrative 04/14/2011 1:40 PM EST ?OBSTETRICS REPOR T ? (Signed Final 04/14/2011 01 :39 pm) Patient Info ID: ? [id number] ? : ??[birth year] (30 yrs) Name: ? LINDSAY Engle ? Visit Date: 04/14/2011 01:26 pm ? MARKEL Performed By Performed By: ?? Emi Hurley Attending: ?Luciana HOSKINS, Romero Maher Referred By: ?SOPHIE Warren MD Accession#: ? [id number] Service(s) Provided UOBS - Screening Morphology - [id number] ? [id number] Indications Screening Morphology Evaluation Num Of Fetuses: [...] participat e in the care of LINDSAY JEAN BAPTISTE. Please do not hesi urbina to call if you have any questions. ? Romero sigala MD Electronically Signed Final Report ?? 01:39 pm Procedure Note Romero Chowdhury MD - 04/14/2011Format ting of this note might be different from the original. OBSTETRICS REPORT (Signed Final 04/14/2011 01:39 pm) Patient Info ID: [id number] : [birth year] (30 yrs ) Name: LINDSAY Engle Visit Date: 01:26 pm MARKEL Performed By Performed By: Emi Hurley Attending: Romero Chowdhury MD. Referred By: SOPHIE Warren MD Service(s) Provided UOBS - Screening Morphology - [id number] Indications Screening Morphology Evaluation Num Of Fetuses: [...] participat e in the care of LINDSAY JEAN BAPTISTE. Please do not hesi urbina to call if you have any questions. Romero Chowdhury MD Electronically Signed Final Report 04/14 01:39 pm Louise Keyes MD IMG US OB ORDERABLES documented in this encounter Visit Diagnoses Diagnosis Supervision of other normal documented in this encounter Care Teams Operational Risk Analyst Relationship Specialty Start Date End Date Shruthi Huang, JORGE PCP - General 02/17/11 03/11/12 documented as of this encounter
--- OUTSIDE RECORDS SUMMARY | 2022-02-03 15:56 | XMS_ITS | Encounter Summary ---
:1980 Author Organization [facility] Address [facility] [place] [address] Care Team Providers Name Role Phone Princess Henley MD Primary Care Provider Encounter Details Date Type Department Care Team Description 09/04/2012 Follow[place]Up Research [place] [facility] [place] Carlee Sandoval MD Ulnar nerve injury, at [facility] el ow (Primary Dx) [place] [address] PEDIATRIC SURGERY [phone] [place], [place] [address] (Wo rk) Social History Tobacco Use Types Packs/Day Years Used Date Never Smoker Smokeless Tobacco: Never Used Alcohol Use Standard Drinks/Week Comments No 0 (1 standard drink = 0.6 oz pure alcoho l) Sex Assigned at Date Recorded Not on file documented as of this encounter Progress Notes Carlee Sandoval MD - 09/04/2012 10:44 AM EDT Lindsay Odonnell is a 31 y.o. 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 At the time of her initial evaluation in June 2012, we recommended a MRI/MY? of the left arm to better evaluate the muscles/arteries of the left arm prior to consideration of surgical intervention. We did not feel that neurolysis of the nerves would offer her much benefit at this time out following an ischemic injury, but felt that she may be a candidate for tendon transfers to help with left hand function. She was unable to have an IV placed today and therefore her MRI was not obtained. Her exam is stable. She continues to have no useful ulnar or median function in the left hand. We arranged for her MRI to be done on Sunday. Dr. Henriquez will see her following the MRI. At this time, we will hold off on scheduling a surgical date. Greater than 20 minutes of this 25-minute patient encounter was spent in hvof-az-epac counseling andcoordination of care, including review of radiology images with patient and/or family as described in note above. Carlee Pinto RN - 09/04/2012 10:02 AM EDT Pt states she always needs J line for access. Discussed pt's vascular access issue with Dr. Henriquez;he felt the best plan is to have the plastics resident place a J. Line prior to MRI on Sunday. 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
--- OUTSIDE RECORDS SUMMARY | 2022-02-03 15:56 | XMS_ITS | Encounter Summary ---
:1980 Author Organization [facility] [place] [address] Care Team Providers Name Role Phone Shruthi Huang APRN Primary Care Provider Reason for Visit Reason Comments Routine Visit Encounter Details Date Type Department Care Team Description 08/16/2011 Routine Obstetrics and Flores Mccloud MD GA: [id number] Gynecology at [facility] [place] & [place] [address] GYNECOLOGY [phone] [place] [phone] (Wo rk) Social History Tobacco Use Types Packs/Day Years Used Date Never Smoker Smokeless Tobacco: Never Used Alcohol Use Standard Drinks/Week Comments No 0 (1 standard drink = 0.6 oz pure alcoho l) Sex Assigned at Date Recorded Not on file documented as of this encounter Last Filed Vital Signs Vital Sign Reading Time Taken Comments Blood Pressure 110/70 08/16/2011 10:13 AM EDT Pulse - - Temperature - - Respiratory Rate - - Oxygen Saturation - - Inhaled Oxygen Concentration - - Weight 75.9 kg (167 lb 6.4 oz) 08/16/2011 10:13 AM EDT Height - - Body Mass Index 27.86 07/13/2011 9:27 AM EDT documented in this encounter Progress Notes Jesús Keyes MD - 08/16/2011 4:01 PM EDT I was the attending physician supervising the resident in the above care. We discussed her assessment and plan at the time of her visit and I agree with Dr. Mccloud's documentation. Flores Mccloud - 08/16/2011 1:13 PM EDT Active fetus, rare contractions, no lof or bleeding. Noting some LE edema which goes away with sitting. Requesting SVE. GBS performed. SVE: 05/19/-. Labor precautions reviewed, RTC1 week documented in this encounter Plan of Treatment Not on filedocumented as of this encounter Procedures Procedure Name Priority Date/Time Associated Comments Diagnosis GROUP B STREPTOCOCCUS Routine 08/16/2011 2:13 PM Results for this SCREEN EDT procedure are i n the results section. GROUP B STREP CULTURE Routine 08/16/2011 2:13 PM Supervision o f Results for this SCREEN EDT normal procedure a re in the results section. documented in this encounter Results GROUP B STREPTOCOCCUS SCREEN (08/16/2011 2:13 PM EDT) P athologist Signature Group B Strep Neg CERNER Screen MILLENNIUM Specimen (Source) Anatomical Collection Method Collection Time Re ceived Time Location / / Volume Laterality Pooled specimen 08/16/2011 2:13 2 2:13 from vaginal PM EDT PM EDT introitus and rectal swab (specimen) Comment: PENICILLIN ALLERGY?->NO Resulting Agency Comment Spec In Lab Jesús Keyes MD MICROBIOLOGY - GENERAL ORDER SHERRIE Performing Organization Address City/State/[place] [address] CERNER MILLENNIUM Group B Strep Culture Screen (08/16/2011 2:13 PM EDT) Component Value Ref Test Analysis Performed At [facility] gist Range Method Time Signature Group B CERNER Streptococcus ? Patient Name: LINDSAY JEAN BAPTISTE ?? Ordered By: JESÚS KEYES MILLENNIUM Culture ? MR#: [id number] ?LOC: ??5L ? /Sex: ??1980 (30 years), ? Female ? PROCEDURE: Group B Streptococcus Culture ?SOURCE: Vag/Rectal ? COLLECTED: 08/16/2011 14:13 ?FREE TEXT SOURCE: Penicillin Allergy?->No ? STARTED: 08/16/2011 14:13 ? FINAL REPORT ? Final Report ? Verified:08/19/2011 10:20 ? No Group B Streptococci isolated ? PRELIMINARY REPORT ? Preliminary Report ? Verified:08/17/2011 11:28 ? Culture in progress ? Specimen (Source) Anatomical Collection Method Collection Time Re ceived Time Location / / Volume Laterality Pooled specimen 08/16/2011 2:13 2 2:13 from vaginal PM EDT PM EDT introitus and rectal swab (specimen) Comment: PENICILLIN ALLERGY?->NO Resulting Agency Comment Spec In Lab Jesús Keyes MD MICROBIOLOGY - GENERAL ORDER SHERRIE Performing Organization Address City/State/[place] [address] [facility] documented in this encounter Visit Diagnoses Diagnosis Supervision of normal - Primar y Supervision of other normal documented in this encounter Care Teams Risk Tech Relationship Specialty Start Date End Date Shruthi Huang APRN PCP - General 02/17/11 03/11/12 documented as of this encounter
--- OUTSIDE RECORDS SUMMARY | 2022-02-03 15:56 | XMS_ITS | Encounter Summary ---
:1980 Author Organization [facility] [place] [address] Care Team Providers Name Role Phone Princess Henley MD Primary Care Provider Encounter Details Date Type Department Care Team Description 04/01/2012 Orders Only [place] [facility] [place] Henriquez MD [facility]3] [place] [address] PLASTIC SURGERY [phone] [place] [phone] (Wo rk) Social History Tobacco Use Types [...] Procedure Name Priority Date/Time Associated Diagnosis Comme [facility] FILM LIBRARY Routine 04/01/2012 1:05 PM Results f or this STORAGE ONLY MR EST procedure ar e in ELBOW the results section. documented in this encounter Results Film Library- Storage only MR Elbow (04/01/2012 1:05 PM EST) Specimen (Source) Anatomical Collection Method Collection Time Re ceived Time Location / / Volume Laterality 04/01/2012 1:05 PM EST Narrative RAD - 10/24/2013 1:32 AM EDT This is a non-reportable exam. Procedure Note Taz Llanes - 10/24/2013Formatting of t his note might be different from the original. This is a non-reportable exam. Yan Henriquez MD IMG FILM LIBRARY ORDERABLES Performing Organization Address City/State/ZIP Code Phon e Number [facility] [address] [facility] [place] [address] documented in this encounter Visit Diagnoses Not on filedocumented in this encounter Care Teams Pediatric Registered Nurse Relationship Specialty Start Date End Date Princess Henley MD PCP - General 03/12/12 04/26/15 [address] [place] [address] documented as of this encounter
--- NOTE | 2022-02-03 15:58 | ED.GENADUL_ITS ---
Discharge Plan Disposition Patient Disposition: [facility] Condition: Stable Discharge Details Chief Complaint: GenMedical Clinical Impression: Wound of left groin, Anemia Primary Care Provider: Georgette Reza ED Provider: Kraig Armando Home Meds and New Rx's Prescriptions: No Action gabapentin 300 mg capsule 300 mg PO QHS Qty: 90 1RF cyclobenzaprine 10 mg tablet 10 mg PO HS PRN (Reason: muscle spasm) Qty: 30 1RF buprenorphine-naloxone 2-0.5 mg film See Rx Instructions BC DAILY Rx Instructions: 6 mg buccal daily; place 1 strip/tab under (each) side of tongue norethindrone (contraceptive) 0.35 mg tablet 0.35 mg PO DAILY Qty: 84 0RF Rx Instructions: start day 1 of menstrual cycle ibuprofen 800 mg tablet 800 mg PO TID PRN (Reason: pain) Qty: 90 2RF Acetaminophen [Tylenol] 650 mg PO Q4H PRN PRNQty: 0 0RF Medical Decision Making 41-year-old female history of IV drug use, presents with left groin wound that was bleeding earlier today as she is taking it, endorses retained needle foreign body from past drug abuse, prior providers have attempted to remove foreign body without success, patient also endorses fevers fatigue and dry cough, appears pale and diaphoretic, is tachycardic and hypotensive, firm indurated area of flash approximately 1 cm raised in left inguinal fold, localized venous oozing hemostatic with pressure, concern for chronic wound tract from foreign body versus abscess versus fistulous blood vessel versus cellulitis. Was also consider systemic illness related to viral syndrome such as COVID versus pneumonia versus bacteremia. Ultrasound guided IV placed in right brachial vein, fluids to be administered, blood cultures and labs have been sent. Pend ing results of imaging and labs will consider admission versus home with oral antibiotics if there is any vascular involvement would likely need surgical consultation and possible transfer. Disposition pending results 18: 24 multiple peripheral ultrasound-guided IVs have infiltrated, 18-gauge left EJ obtained however radiology department will not push contrast through an EJ, attempted again to obtain peripheral access with ultrasound guidance in the left upper extremity without success due to the sequela of years of IV drug use, for this reason CT of the affected region of the pelvis is to be performed without contrast. Patient also found to have possible new right lung infiltrate and hypokalemia. We will start empiric antibiotics for community-acquired pneumonia we will continue with IV fluids, disposition pending CT results likely admission for medical management of pneumonia 19: 42 CT imaging concerning for localized groin hematoma versus pseudoaneurysm, patient endorses 4 years ago while she was injecting drugs needle tip broke off into her groin region, had 2 procedures 1 at the bedside and 1 under anesthesia to attempt to retrieve foreign body she believes this was unsuccessful, the area of skin irritation has developed over the last month she has been taking the region taking it with an ingrown or infected hair. Endorses losing a lot of blood today at home in the bathroom. Currently hemostatic however this area in the left groin is pulsatile visually and palpably; no surrounding erythema or warmth, bedside ultrasound showing hyperechoic collection surrounding femoral vessels, with color Doppler mode on this collection has areas of pulsatile flow; stat consultation with [facility] vascular team has been initiated; incidental findings on CT scan include disc space narrowing of L4-L5 with surrounding osseous sclerosis/erosive findings, patient denies back pain and has no neurologic symptomatology. Will likely need follow-up imaging. Disposition pending consultation with vascular team 20: 17 patient resting comfortably no acute distress. Reviewed case with vascular surgeon Dr. Rock at [facility] who agrees the patient needs urgent evaluation by vascular team. Have discussed case with transfer center and ED physician at [facility] Dr. Burgos who is excepted ED to ED transfer. Currently arranging ground transportation for patient. Patient is amenable to transfer. Maintenance fluids are running currently. Groin wound is hemostatic. HPI General Date/Time Provider Initiated Documentation: 02/03/22 14:48 . HPI Narrative: 41-year-old female prior IV drug user, currently in recovery, presents with left groin wound that she has been picking at for some time, endorses bleeding to left groin; does endorse a retained foreign body from a needle that snapped off in the past while she was using. Also endorses fevers chills cough non productive. Related Data Home Medications Medication Instructions Recorded Confirmed buprenorphine 2 mg-naloxone 0.5 mg See Rx Instructions buccal DAILY 04/07/20 02/03/22 sublingual film Acetaminophen [Tylenol] 650 mg PO Q4H PRN PRN ##0 07/27/21 02/03/22 norethindrone (contraceptive) 0.35 0.35 mg PO DAILY #84 tabs 07/27/21 02/03/22 mg tablet ibuprofen 800 mg tablet 800 mg PO TID PRN pain #90 tabs 01/04/22 02/03/22 cyclobenzaprine 10 mg tablet 10 mg PO HS PRN muscle spasm #30 01/30/22 02/03/22 tabs gabapentin 300 mg capsule 300 mg PO QHS #90 caps 01/30/22 02/03/22 Previous Rx's Medication Instructions Recorded Acetaminophen [Tylenol] 650 mg PO Q4H PRN PRN ##0 07/27/21 norethindrone (contraceptive) 0.35 0.35 mg PO DAILY #84 tabs 07/27/21 mg tablet ibuprofen 800 mg tablet 800 mg PO TID PRN pain #90 tabs 01/04/22 cyclobenzaprine 10 mg tablet 10 mg PO HS PRN muscle spasm #30 01/30/22 tabs gabapentin 300 mg capsule 300 mg PO QHS #90 caps 01/30/22 Allergies Allergy/AdvReac Type Severity Reaction Status Date / Time No Known Allergies Allergy Verified 02/03/22 14:53 General Stated Complaint: GenMedical LEIF: 3 Review of Systems Narrative: Review of Systems Constitutional: Fever Eyes: negative ENT: negative Cardiovascular: negative Respiratory: Cough Gastrointestinal: negative : negative Musculoskeletal: negative Skin: Groin wound Neurologic: negative Psych: negative PFSH All Active Problems (Updated 02/03/22 @ 20:20 by Kraig Armando MD) Wound of left groin (Acute) Anemia (Chronic) Retained foreign body (Acute) Vulvar cellulitis (Acute) History of herpes genitalis (Acute) Vulvar pain (Acute) Open wound of finger of right hand (Acute) Cellulitis of toe of left foot (Acute) Abnormal finding on imaging (Acute) Abnormal MRI (Acute) Dysuria (Acute) 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 Patient has appointment at [facility] in [place] for consideration of termination History of intravenous drug abuse (Acute) Cellulitis of left lower extremity (Acute) Poor intravenous access (Acute) Chronic infection as complication of amputation (Acute) Heart murmur (Acute) Hypotension (Chronic) Petechial rash (Acute) Acute on chronic anemia (Acute) Osteomyelitis of right lower extremity (Chronic) DVT, lower extremity, distal, acute (Acute) 10/24 2018 left lower extremity. Rx with Eliquis. Abnormal uterine bleeding (AUB) (Acute) On. Set 10/24/2018 heavy flow coinciding with initiation of Eliquis Normocytic hypochromic anemia (Acute) 10/26/2018 hemoglobin 8.2 MCV 83 Medical History Cellulitis of finger of right hand Endometriosis Hx of hepatitis C AB +. No viral load. Hx of opioid abuse Currently in treatment at [facility]. Suboxone. Leg wound, right Raynaud disease Tenosynovitis of finger Surgical History Complete below knee amputation of right lower extremity 2018. 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 [facility]. 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 H/O hand surgery contracted post-op History of transesophageal echocardiography (YG) negative Retained foreign body L groin, s/p unsuccessful exploratory surgery Family History Father Diabetes Paternal Grandfather Diabetes Paternal Aunt Diabetes Maternal Grandmother Breast cancer Maternal Aunt Multiple sclerosis Social History Smoking/Tobacco Use Status: Never Smoking risk assessment performed?: Yes Alcohol Intake: former Drug use: Current Sobriety Substance use type: former substance user, crack/cocaine, heroin and methamphetamine Details: former cocaine (snorted, smoked, IV) and heroin use (IV), as well as crystal meth (IV). Patient is currently enrolled at [facility], on suboxone Household members: children and other Details: Patient resides at her sister's house with her daughter Housing: apartment Number of Children: 1 current occupation: Unemployed Sexually active: Yes Do you think of yourself as: straight/heterosexual Current gender identity: female Seatbelt use: always Do you feel safe at home: Yes Do you feel safe in your relationship?: Yes Additional Social history: Ambulates with crutches - 2 falls recently Exam Narrative Exam Narrative: Physical Examination General: alert, awake, cooperative, slightly pale, diaphoretic HEENT: normocephalic, atraumatic; PERRL, EOM intact, conjunctiva normal; no nasal discharge; moist mucous membranes, oral and pharyngeal mucosa normal, tolerating secretions Neck: supple, trachea midline; full ROM Chest: normal to inspection Respiratory: normal respiratory effort, speaking in full sentences, clear to auscultation, no wheezing, rales or rhonchi Cardiac: Tachycardic, regular rhythm, S1S2 intact, no murmurs rubs or gallops GI: abdomen soft, non-tender, non-distended; no palpable mass or hepatosplenomegaly Skin: 1 cm area of raised skin in left inguinal fold, firm to the touch, surrounding scar tissue, localized slow venous oozing, hemostatic with pressure no fluctuance or crepitus appreciated Neuro: AAOx3, normal speech, moving all extremities Psych: Appropriate mood and affect Course Vital Signs Vital signs: Vital Signs Temperature 37.4 C 02/03/22 14:49 Pulse 102 H 02/03/22 14:49 Blood Pressure 97/68 L 02/03/22 14:49 Pulse Oximetry 89 L 02/03/22 14:49 Temperature 37.4 C 02/03/22 14:49 Temperature Source Temporal Artery Scan 02/03/22 14:49 Pulse 102 H 02/03/22 14:49 Respiratory Effort Non-Labored 02/03/22 14:53 Blood Pressure 97/68 L 02/03/22 14:49 Blood Pressure Position Sitting 02/03/22 14:49 Pulse Oximetry 98 02/03/22 14:54 Oxygen Delivery Method Nasal Cannula 02/03/22 14:54 Oxygen Flow Rate 2 02/03/22 14:54 Lab/Test Results Lab/Test Results: 02/03/22 15:57 Blood Blood Culture - Pending 02/03/22 15:57 Blood Blood Culture - Pending
--- OUTSIDE RECORDS SUMMARY | 2022-02-03 15:59 | XMS_ITS | Encounter Summary ---
:1980 Author Organization [facility] Address [address] [place] [address] Care Team Providers Name Role Phone Ratna Olivas MD Primary Care Provider Reason for Visit (Routine/Next Available) - Receiving Office to Obtain Authorization Specialty Diagnoses / Procedures Referred By Contact Refer red To Contact Procedures Unknown, Provider, XR OUTSIDE IMAGES MSK Phone: Referral ID Status Reason Start Expiration Visits Visits Date Date Requested Authorized [id number] Receiving Office 07/23/2021 1 1 to Obtain Authorization Encounter Details Date Type Department Care Team Description 07/23/2021 Hospital Encounter [facility] Secondary Reads [place] Social History Tobacco Use Types Packs/Day Years Used Date Never Smoker Smokeless Tobacco: Never Used Alcohol Use Standard Drinks/Week Comments No 0 (1 standard drink = 0.6 oz pure alcoho l) Alcohol Habits Answer Date Recorded How often do you have a drink containing alcohol? Never 03/24/2019 How many drinks containing alcohol do you have on a typical Not asked day when you are drinking? How often do you have six or more drinks on one occasion? No t asked Comment: Not asked Sex Assigned at Date Recorded Not on file documented as of this encounter Functional Status Functional Status Response Date of Assessment Are you deaf or do you have serious No 03/31 difficulty hearing? Are you blind or do you have serious No difficulty seeing, even when wearing glasses? Do you have serious difficulty walking or Yes - RLE amputati on 04/23/2021 climbing stairs? (5 years old or older) Do you have difficulty dressing or bathing? No 04/23/2021 (5 years old or older) Because of a physical, mental, or emotional No 04/23/2021 condition, do you have difficulty doing errands alone such as visiting a doctor's office or shopping? (15 years old or older) Cognitive Status Response Date of Assessment Because of a physical, mental, or emotional condition, do No 04/23/2021 you have serious difficulty concentrating, remembering, or making decisions? (5 years old or older) documented as of this encounter Medications at Time of Discharge Medication Sig Dispensed Refills Start Date End Date acetaminophen (TYLENOL) Take 2 Tabs by mouth 0 500 mg tablet every 6 hours. betamethasone Apply 1 application 0 02/14/2019 dipropionate (DIPROLENE) topically 2 times 0.05 % ointment daily. buprenorphine-naloxone Place 12 mg under the 0 (SUBOXONE) 12-3 mg film tongue daily. collagenase (SANTYL) Apply 1 application 0 2018 ointment topically daily. ferrous gluconate Take 1 Tablet by mouth 30 Tablet 0 2021 (FERGON) 324 mg (38 mg 2 times daily with iron) tablet breakfast and dinner. gabapentin (NEURONTIN) Take 1 Tab by mouth 3 0 600 mg tablet times daily. HYDROmorphone (DILAUDID) Take 1 Tablet by mouth 7 Tablet 0 05/04/2021 2 mg tablet every 4 hours as needed for Pain. Daily Max: 12 mg ibuprofen (MOTRIN) 800 Take 800 mg by mouth 2 0 1 06/04/2018 mg tablet times daily. INTRAUTERINE DEVICE, 1 Device by 0 IUD, INTRAUTERINE intrauterine route. methocarbamol (ROBAXIN) Take 2 Tabs by mouth 0 500 mg tablet every 6 hours as needed for Muscle Spasms. multivitamin capsule Take 1 Cap by mouth 0 daily. NORLYDA 0.35 mg tablet 0 03/21/2019 traZODone (DESYREL) 50 Take 1 Tab by mouth at 0 mg tablet bedtime as needed for Sleep. documented as of this encounter Discharge Disposition Disposition Code Departure Means Destination Home or Self Care documented in this encounter Plan of Treatment Not on filedocumented as of this encounter Procedures Procedure Name Priority Date/Time Associated Diagnosis Comme nts XR OUTSIDE IMAGES Routine 07/23/2021 21:45 Result s for this MSK EDT procedure are i n the results section. documented in this encounter Results XR OUTSIDE IMAGES MSK (07/23/2021 21:45 EDT) Specimen Narrative 07/23/2021 21:45 EDT This is a non-reportable exam. documented in this encounter Visit Diagnoses Not on filedocumented in this encounter Care Teams Banquet Supervisor Relationship Specialty Start Date End Date Ratna Olivas MD PCP - General 03/05/[address] [place] [address] [phone] documented as of this encounter
--- OUTSIDE RECORDS SUMMARY | 2022-02-03 15:59 | XMS_ITS | Encounter Summary ---
:1980 Author Organization [facility] Address [address] [place] [address] Care Team Providers Name Role Phone Ratna Olivas MD Primary Care Provider Reason for Visit (Routine/Next Available) - Receiving Office to Obtain Authorization Specialty Diagnoses / Procedures Referred By Contact Refer red To Contact Procedures Unknown, Provider, XR OUTSIDE IMAGES MSK Phone: Referral ID Status Reason Start Expiration Visits Visits Date Date Requested Authorized [id number] Receiving Office 07/23/2021 1 1 to Obtain Authorization Encounter Details Date Type Department Care Team Description 07/23/2021 Hospital Encounter [facility] Secondary Reads [place] Social History Tobacco [...] Comme nts XR OUTSIDE IMAGES Routine 07/23/2021 21:42 Result s for this MSK EDT procedure are i n the results section. documented in this encounter Results XR OUTSIDE IMAGES MSK (07/23/2021 21:42 EDT) Specimen Narrative 07/23/2021 21:42 EDT This is a non-reportable exam. documented in this encounter Visit Diagnoses Not on filedocumented in this encounter Care Teams Wood Window And Door Craftsman Relationship Specialty Start Date End Date Ratna Olivas MD PCP - General 03/05/[address] [place] [address] [phone] documented as of this encounter
--- OUTSIDE RECORDS SUMMARY | 2022-02-03 15:59 | XMS_ITS | Encounter Summary ---
:1980 Author Organization [facility] Address [address] [place] [address] Care Team Providers Name Role Phone Ratna Olivas MD Primary Care Provider Reason for Visit (Routine/Next Available) - Receiving Office to Obtain Authorization Specialty Diagnoses / Procedures Referred By Contact Refer red To Contact Procedures Unknown, Provider, CT OUTSIDE IMAGES MSK Phone: Referral ID Status Reason Start Expiration Visits Visits Date Date Requested Authorized [id number] Receiving Office 07/23/2021 1 1 to Obtain Authorization Encounter Details Date Type Department Care Team Description 07/23/2021 Hospital Encounter [facility] Secondary Reads [place] Social [...] Name Priority Date/Time Associated Diagnosis Comme nts CT OUTSIDE IMAGES Routine 07/23/2021 21:36 Result s for this MSK EDT procedure are i n the results section. documented in this encounter Results CT OUTSIDE IMAGES MSK (07/23/2021 21:36 EDT) Specimen Narrative 07/23/2021 21:36 EDT This is a non-reportable exam. documented in this encounter Visit Diagnoses Not on filedocumented in this encounter Care Teams Nurse Advisor Relationship Specialty Start Date End Date Ratna Olivas MD PCP - General 03/05/[address] [place] [address] [phone] documented as of this encounter
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
--- OUTSIDE RECORDS SUMMARY | 2022-02-03 15:59 | XMS_ITS | Encounter Summary ---
:1980 Author Organization [facility] Address [address] [place] [address] Care Team Providers Name Role Phone Ratna Olivas MD Primary Care Provider Reason for Visit Reason Onset Date Comments Appointment Related 05/10/2021 Encounter Details Date Type Department Care Team Description 05/10/2021 Telephone [facility] Aly Hill MD Appointment Related Dermatology - Main [address] [place] [address] [address] [place] [address] [phone] Social History Tobacco Use Types Packs/Day Years [...] Assigned at Date Recorded Not on file COVID-19 Exposure Response Date Recorded In the last month, have you been in contact Unable to assess 04/22/2021 13:17 EST with someone who was confirmed or suspected to have Coronavirus / COVID-19? documented as of this encounter Functional Status [...] or older) documented as of this encounter Miscellaneous Notes Telephone Encounter - Norma Serrano MA - 05/10/2021 1423 EST Left message for patient to call back to schedule NPV for Hospital follow-up with Dr. Hill. Appointment placed on hold for patient on 05/30/21. NORMA SERRANO MA 05/10/2021 14:24 elephone Encounter - Norma Serrano MA - 05/10/2021 1423 EST ----- Message from Malik Hill MD sent at 05/10/2021 11:52 EST ----- Regarding: Hospital Follow Up [facility]!Would you please call and schedule hospital follow up for this patient in my clinic in the next 2-3 weeks? Thank you so much!Malik documented in this encounter Plan of Treatment Not on filedocumented as of this encounter Visit Diagnoses Not on filedocumented in this encounter Care Teams Taffy Puller Relationship Specialty Start Date End Date Ratna Olivas MD PCP - General 03/05/[address] [place] [phone] documented as of this encounter
--- OUTSIDE RECORDS SUMMARY | 2022-02-03 15:59 | XMS_ITS | Encounter Summary ---
:[address] [facility] Address [address] [place] [address] Care Team Providers Name Role Phone Ratna Olivas MD Primary Care Provider Encounter Details Date Type Department Care Team Description 07/27/2021 Lab Requisition [facility] Grzegorz Hanna steomyelitis, unspecified (HCC); Pathology & Henri Llanes MD Cellulitis of right finger Laboratory Medicine [address], [place] [address] [facility] [address] [place] [address] Social History Tobacco Use Types Packs/Day Years [...] or older) documented as of this encounter Plan of Treatment Not on filedocumented as of this encounter Procedures Procedure Name Priority Date/Time Associated Diagnosis Comme nts SURGICAL PATHOLOGY Today 07/26/2021 14:32 Osteomyelitis, Res ults for this EDT unspecified (HCC ) procedure are in Cellulitis of right the resu lts finger section. documented in this encounter Results SURGICAL PATHOLOGY (07/26/2021 14:32 EDT) Note to Patient The following [facility] pathology results CENTER have been interpreted LABORATORY by your pathologist SERVICES and may be available to you before your health provider has had the opportunity to review them. Please allow time for your provider to receive these results and explore management options, if applicable. Final Diagnosis A. FINGER, RIGHT 3RD, METACARPAL-PHALANGEAL AMPU TATION: [facility] MEDICAL - Cutaneous ulcer with granulation tissue. CENTER - Subcutaneous inflammatory and reactive changes. LABORATORY - Active chronic osteomyelitis. SERVICES - Disarticulation site and s oft tissue and skin resection margins negative for necro-inflammatory changes. Attestation By the signature [facility] Electronica lly below, the attending CENTER signed by Donnell, physician certifies LABORATORY Peter krishnamurthy MD on that they have 1) SERVICES 08/02/2021 a t 0826 personally conducted a gross and/or microscopic examination of the described specimen(s), and/or personally interpreted the results of laboratory testing of the described specimen(s), and 2) personally rendered or confirmed the above diagnosis. Clinical History Osteomyelitis right [facility] middle finger CENTER LABORATORY SERVICES Gross Description A. [facility] MEDICAL Received in formalin olivia d with proper patient identification (initials F, K) and right middle finger is a finger amputation (7.5 cm proximal to distal x 3.5 cm medial to lateral x 3.3 cm dorsal to CENTER volar) that has been disarticulated at the meta carpal phalangeal joint. LABORATORY On the dorsal surface, there is a givens predominantly hemorrhagic ulcer (2.5 x 1.5 x 0.9 cm), located 2.0 cm from the nearest soft tissue resection margin. The remaining skin is givens-white and flaky. The n SERVICES ail is givens-white. The soft t issue at the margin appears grossly viable. The cartilaginous surface is smooth, white and intact. The margin is inked blue. The bone underlying the ulcer is givens and hemorrha gic. The bone underlying the disarticulation site is givens-white. Capacitor Assembler sections are submitted as follows: BLOCK ENGLISH A1- ulcer to underlying bone, following acid decalcifi cation A2- bone underlying disartic ulation site, perpendicular, following acid decalcification A3- soft tissue at margin AUBREE ROBERTS([facility]) 07/27/2021 12:15 Performing Lab [facility] SERVICES Scanned Images [facility] SERVICES Specimen Tissue - Amputation (procedure) Performing Organization Address City/State/ZIP Code Phon e Number [facility] [address] [place] [address] SERVICES documented in this encounter Visit Diagnoses Diagnosis Osteomyelitis, unspecified (HCC) Cellulitis of right finger documented in this encounter Care Teams Gis Analyst Developer Relationship Specialty Start Date End Date Ratna Olivas MD PCP - General 03/05/[address] [place] [phone] documented as of this encounter
--- OUTSIDE RECORDS SUMMARY | 2022-02-03 15:59 | XMS_ITS | Encounter Summary ---
:1980 Author Organization [facility] Address [address] [place] [address] Care Team Providers Name Role Phone Ratna Olivas MD Primary Care Provider Reason for Referral Referral (Routine/Next Available) - Authorization Not Required Specialty Diagnoses / Procedures Referred By Contact Refer red To Contact Diagnoses Skin ulcer of left great toe, unspecified ulcer stage (HCC-CMS) ([facility]) Terra Maya MD [facility], [address] [address] [place] [address] Phone: Fax: Referral ID Status Reason Start Expiration Visits Visits Date Date Requested Authorized [id number] Authorization Specialty 05/04/2021 1 1 Not Required Services Required Question Answer I certify that this patient is under my care 05/05/2021 and that I, or another Medicare allowed practitioner (DO AIDEE, STU) working with me, had a tvhw-cy-mqpz encounter with this patient on this date: The discharge summary or progress note will Yes provide further details that support the need for the home health services and the plan of care. Enter the allowed practitioner (DO AIDEE, STU) Gissel who will provide oversight of this patient's home heatlh care needs and plan of care The patient? Severity of extremity disease (limited s homebound status is related to the use of RUE, s/p R leg amputation, wound following diagnoses, illness or condition on L foot) (describe): Patient needs one or more of the following to Assistiv e device leave home: Assistive device Wheelchair Leaving the home is medically contraindicated Ambulati on or weight bearing is due to: medically restricted The following conditions illustrate the Has very limit ed use of upper patient? extremities s normal inability to leave home AND that leaving home requires a considerable and taxing effort: Skilled Care Requested Wound care Retirement Referral - Wound Care: Other (Please include care and frequency.) Please Specify: ulcer on dorsal surface of L foot Comments Cleanse wound, apply santyl, and dress w ith telfa and kerlix. Change every other day. eferral (Routine/Next Available) - Authorization Not Required Specialty Diagnoses / Procedures Referred By Contact Refer red To Contact Diagnoses Right arm cellulitis Open wound of left great toe, initial encounter Group C streptococcal infection Skin ulcer of left great toe, unspecified ulcer stage ([facility]) ([facility]) Brendon Justice MD [facility], [address] [place] [id number] [address] [place] [address] Phone: Fax: Referral ID Status Reason Start Expiration Visits Visits Date Date Requested Authorized [id number] Authorization Specialty 05/03/2021 1 1 Not Required Services Required Question Answer I certify that this patient is under my care 05/03/2021 and that I, or another Medicare allowed practitioner (DO AIDEE, STU) working with me, had a wenk-qb-[id number] encounter with this patient on this date: The discharge summary or progress note will Yes provide further details that support the need for the home health services and the plan of care. Enter the allowed practitioner (DO AIDEE, STU) Ratna lorenz, PCP who will provide oversight of this patient's home heatlh care needs and plan of care The patient? impaired mobility, Right BKA, Left s homebound status is related to the chronic foot woun d following diagnoses, illness or condition (describe): Patient needs one or more of the following Assistive d evice to leave home: Assistive device Crutches Leaving the home is medically Not medically contraindi cated, but needs contraindicated due to: assistance as indicated abov e. The following conditions illustrate the Other patient? s normal inability to leave home AND that leaving home requires a considerable and taxing effort: Please Specify: chronic left foot wound, imp aired mobility, right BKA Skilled Care Requested Nursing asessment, Wound car e [facility] assessment needed related to Wound, Os eric or Incontinence Assessment, this encounter: Skin Integrity, Post Surgica l Retirement Referral - Wound Care: Other (Please include care and frequency.) Please Specify: chronic left foot wounds Scheduling Comments (optional ? every other day: Vashe solution. Foot describe specific scheduling needs if Ulcers should b e covered with a thick applicable): layer of Vaseline, followed by application of non-adherent Telfa dressing. The foot should th en be wrapped in Kerlix. onsult (See Order Priority) - Closed Specialty Diagnoses / Procedures Referred By Contact Refer red To Contact Orthopedic Surgery Diagnoses Acute carpal tunnel syndrome, right Sourav Leal MD [facility] [address] [place] [address] [address] [place] [address] Phone: Fax: Referral ID Status Reason Start Date Expiration Date Visits V isits Requested Authorized [id number] Closed Specialty 05/03/2021 1 1 Services Required Question Answer Reason for Request: follow up for I&D and carpal tunnel release Reason for Visit Reason Comments Hand Pain BIBEMS tx from [facility]. R hand red, swollen and streaking up forearm. ulceration on left foot. hx IVDU, denies current use. limited ROM in L am. el evated WBCs, lactic WNL Diabetic Foot Infection Auth/Cert Specialty Diagnoses / Procedures Referred By Contact Refer red To Contact Diagnoses Right arm cellulitis Sepsis Referral ID Status Reason Start Date Expiration Date Visits Requ ested Visits Authorized [id number] 1 1 Encounter Details Date Type Department Care Team Description 04/22/2021 - [facility] Yovany Gonzalez PA-C [address] [place] [address] Right arm cellulitis (Primary Dx); 05/04/2021 Encounter General Medicine Jazmin Grossman MD [address] [facility], [facility] [address] [place] [id number] Acute carpal tunnel syndrome, right; Unit Maggie Dahl, PABaltazarC [address] [facility], [facility] [address] [place] [address] History of Raynaud's syndrome; [address] [place] [address] Luz Jasso MD 111 [facility] [address] [place] [phone] Open wound of left great toe, initial en counter; [place], [place] Zhen Beavers III, MD [address] [place] [phone] Opioid use disorder; [address] Clark Salinas MD [address] [place] [address] Sepsis, due to unspecified organism, uns pecified whether acute organ dysfunction present ([facility]) ([facility]); [phone] Susan Graham MD [address] [facility], [place] [address] [place] [address] Group C streptococcal infection; Abscess of arm, right; Skin ulcer of l eft great toe, unspecified ulcer stage ([facility]) ([facility]); Leukopenia, uns pecified type; Open wound of l eft great toe, sequela Social History Tobacco Use Types Packs/Day Years [...] / COVID-19? documented as of this encounter Last Filed [...] Body Mass Index 19.97 05/03/2021 1502 EST documented in this encounter Functional Status Functional Status Response [...] or older) documented as of this encounter Discharge Summaries Susan Graham MD - 05/04/2021 1231 EST HOSPITAL MEDICINE DISCHARGE SUMMARY Primary Care Provider: Ratna Olivas Attending Physician: Susan Graham MD Admit Date: 04/23/21 Discharge Date: 05/04/2021 Disposition (location): home Condition at Discharge: Improved Reason for Admission (chief complaint): Right arm Swelling Principal/Final Diagnosis: Right arm infection Additional Problems Managed in the Hospital: Active Hospital Problems Diagnosis Date Noted ??? *Right arm cellulitis 04/23/2021 ??? Sepsis ([facility]) 04/24/2021 ??? Open wound of left great toe 04/24/2021 ??? Below-knee amputation of right lower extremity determined by examination ([facility]) 04/04/2019 ??? Opioid use disorder, mild, abuse ([facility]) ([facility]) 01/17/2019 ??? Retained metal fragment foreign body 04/25/2021 Class: Permanent Right groin; needle ??? Acute carpal tunnel syndrome, right 04/22/2021 Added automatically from request for surgery [id number] Resolved Hospital Problems Diagnosis Date Noted Date Resolved ??? History of Raynaud's syndrome 04/24/2021 04/25/2021 Transition of care: [facility] Transition of Care report automatically routed to PCP office on discharge. Additional handoff communication performed via: Phone or Verbal directly to PCP, Georgette Reza APRN Clinical Issues Needing Follow-up 1. Pertinent medication changes: - will need to complete additional 13 days of PO amoxicillin 500mg TID - 7 tabs of hydromorphone 2mg PRN provided for ongoing pain 2. Recommended follow-up tests/procedures needed: - Recommend follow up with PCP in the next 1-2 weeks - repeat CBC recommended on Sunday for evolving leukopenia, likely 2/2 IV ceftriaxone - recommend dermatology follow up re: dorsal foot wound, concern for possible arterial insufficiencyvs. Pyoderma gangrenosum; would recommend dermatology f/u rather than proceeding directly to her previously planned amputation - podiatry follow up as previously scheduled - consider GILLIAN re: foot wound 3. Anticoagulation on discharge: No 4. Changes to goals care at time of discharge (if applicable): NONE Hospital Course: Lindsay Jean Baptiste is a 40 y.o. female with a PMHx of osteomyelitis status post right BKA, IVDU, opioid use disorder and chronic foot ulcers who presented from [facility] with concerns for worsening R arm cellulitis and need for possible surgical intervention. At the outside hospital, given poor peripheralaccess, a right IJ line was placed for labs and infusing medications. In the ED, labs were remarkable for leukocytosis of 14.45 with neutrophilic predominance. Imaging showed concern for diffuse soft tissue swelling of the of the distal right forearm, wrist and hand, andpossible cellulitis of the base of the first proximal phalanx. However, patient was not able to get an MRI due to history of chronic broken off needle in her left groin. ?? Notably, her CT of the right upper extremity from the outside hospital demonstrated fluid around theflexor tendons in the carpal tunnel. She was seen by orthopedics who recommended right upper extremity nonweightbearing status with a volar resting splint, and to continue IV antibioticwith no acute ope rative intervention. After admission to the family medicine service, she was continued on IV vancomycin and ceftriaxone for treatment of cellulitis. She was reevaluated by orthopedic surgery who decided to perform a R CTR and washout to decompress the median nerve. She was taken back to the OR on 04/23 and cultures from anaerobic source on this date grew few streptococcus dysgalactiae. ID was consulted on 04/24 and continued the patient on the ceftriaxone regimen and vancomycin was discontinued. Patient returned to the OR on 04/27 per orthopaedics for closure of the wound site, with further closures and wash out on nd 05/03. Patient's opoid use disorder and R arm pain were managed per the Acute Pain service while admitted. She was maintained on a regimen of LAPIDARIST dilaudid and ketamine drip before transitioning to PO regimentprior to discharge. Patient was discharged on PLUSH DRESSER suboxone regimen with pain under control. Patient discharged on 05/04/2021 in stable condition with plan to F/U with PCP in 1-2 weeks and plan to follow up with outpatient podiatry regarding Left Hallux and 2nd Toe Wound Followed by podiatry at outside hospital. Ortho evaluated on admission and recommended dressing changes per patient home recswhile admitted. Dermatology also consulted for wound on dorsum of L foot, concern for pyoderma gangrenosum vs arterial vs other. Biopsy NOT obtained due to difficulties with coordination of services. Recommended regular wound care, VNA ordered. Given her limited use of LUE, wheelchair also order. Lastly, she developed leukopenia likely 2/2 CTX use. Repeat CBC ordered to ensure rebounding off this therapy. Relevant Imaging/Procedures Performed: XR FOREARM RIGHT 2 VIEWS, XR HAND RIGHT 3 OR MORE VIEWS, XR WRIST RIGHT 3 OR MORE VIEWS 04/22/2021 6:15 PM ?? Clinical History/Comments: wrist pain ?? IMPRESSION Diffuse soft tissue swelling of the distal right forearm, wrist, and hand. Results Pending at Discharge: Test results still pending from this admission Procedure Component Value Units Date/Time Cryoglobulin, Serum [[id number]] Collected: 05/03/21 0614 Lab Status: In process Specimen: Blood, Venous Updated: 05/03/21 0620 Bacterial Culture, Blood [[id number]] Collected: 05/02/21 162 Lab Status: In process Specimen: Blood, Venous Updated: 05/02/21 163 Bacterial Culture, Blood [[id number]] Collected: 05/02/211625 Lab Status: In process Specimen: Blood, Venous Updated: 05/02/21 1635 Upcoming Appointments May 05, 2021 13:55 Us Gillian & Physiologic Study with [id number] [facility] Vascular Surgery - [facility] (--) [address] [facility] [address] Prep: -Wear loose fitting clothing and footwear appropriate for walking in the event that exercise testingis required. -Please bring any insurance information and a copayment if required by your insurance company. May 16, 2021 14:30 Post Op Visit with Kev Hughes MD [facility] Hand & Upper Extremity Program [facility] (--) [address] [facility] [phone] Follow-up appointments and procedures [facility], [facility] I certify that this patient is under my care and that I, or another Medicare allowed practitioner (DO AIDEE, STU) working with me, had a otgb-od-nann encounter with this patient on this date: 05/03/2021 The discharge summary or progress note will provide further details that support the need for the home health services and the plan of care.: Yes Enter the allowed practitioner (DO AIDEE, STU) who will provide oversight of this patient's home heatlh care needs and plan of care: Ratna Olivas, CHAY The patient???s homebound status is related to the following diagnoses, illness or condition (describe): impaired mobility, Right BKA, Left chronic foot wound Patient needs one or more of the following to leave home: Assistive device Assistive device: Crutches Leaving the home is medically contraindicated due to: Not medically contraindicated, but needs assistance as indicated above. The following conditions illustrate the patient???s normal inability to leave home AND that leavinghome requires a considerable and taxing effort: Other Please Specify: chronic left foot wound, impaired mobility, right BKA Skilled Care Requested: Nursing asessment Wound care [facility] assessment needed related to this encounter: Wound, Ostomy or Incontinence Assessment Skin Integrity Post Surgical Retirement Referral - Wound Care: (Please include care and frequency.): Other Please Specify: chronic left foot wounds Scheduling Comments (optional ??? describe specific scheduling needs if applicable): every other day: Vashe solution. Foot Ulcers should be covered with a thick layer of Vaseline, followed by application of non-adherent Telfa dressing. The foot should then be wrapped in Kerlix. Authorizing Provider: Brendon Justice MD [facility] Cleanse wound, apply santyl, and dress with telfa and kerlix. Change every other day. I certify that this patient is under my care and that I, or another Medicare allowed practitioner (DO AIDEE, STU) working with me, had a kqqm-fr-xxai encounter with this patient on this date: 05/05/2021 The discharge summary or progress note will provide further details that support the need for the home health services and the plan of care.: Yes Enter the allowed practitioner (DO AIDEE, STU) who will provide oversight of this patient's home heatlh care needs and plan of care: Fitchalinoi The patient???s homebound status is related to the following diagnoses, illness or condition (describe): Severity of extremity disease (limited use of RUE, s/p R leg amputation, wound on L foot) Patient needs one or more of the following to leave home: Assistive device Assistive device: Wheelchair Leaving the home is medically contraindicated due to: Ambulation or weight bearing is medically restricted The following conditions illustrate the patient???s normal inability to leave home AND that leavinghome requires a considerable and taxing effort: Has very limited use of upper extremities Skilled Care Requested: Wound care Retirement Referral - Wound Care: (Please include care and frequency.): Other Please Specify: ulcer on dorsal surface of L foot Authorizing Provider: Terra Maya MD Amb Consult/Follow Up Orthopedics Reason for Request: follow up for I&D and carpal tunnel release Authorizing Provider: Sourav Leal MD Follow-up labs and tests Complete Blood Count Complete by: May 06, 2021 Authorizing Provider: Terra Maya MD Pt discussed with and seen by Dr. Susan Maya MD 05/04/2021 16:33 [id number] Attestation: I saw and examined the patient with the resident on 05/04/21. I agree with the findingsand plan of care documented in the resident's note, which I have edited above to reflect our shared assessment and plan. Susan Graham MD 05/04/21 23:09 Attending Hospitalist #[id number] documented in this encounter Discharge Instructions Soni Ramirez PA-C - 05/03/[address] KEV HUGHES [address] [place], [place] [id number] POST OPERATIVE INSTRUCTIONS 1. Keep your dressing/splint clean, dry and intact until you return to the office for your first visit. Swelling is expected in the arm/hand upon which you had surgery. To help relieve swelling, elevate the extremity, apply cold/ice, and use an over the counter anti-inflammatory as directedon the label such as Ibuprofen, Advil, or Aleve. 2. Bleeding on your dressing after surgery may be normal and is no cause for alarm. Old blood will appear brownish in color. Call our office if you have active bleeding, this will be a bright red spot continually increasing in size. 3. You will be given a prescription for a narcotics pain reliever to manage your pain during the immediate post operative peroid of 2-4 weeks. These medications can have side effects that include but are not limited to nausea, dizziness, sedation, insomnia, and constipation. Anticipating these temporary side effects will better enable you to better manage them. Always take your medicine with food andmaintain an adequate fluid intake. If you are not able to manage/tolerate these side effects, call our office. You should resume taking all your other previously prescribed medications unless otherwise directed by your Primary Care Physician. PLEASE keep in mind that you are required to have a written prescription to take to the pharmacy to have narcotic medication given to you, these cannot be called in. If you live out of town or out ofunc health you'll need to plan in advance for someone to come to the office to get a prescription for anyrefills you may require to meet your pain control needs. 4. There are 4 things you need to check a couple of times a day: ?? Color - There is frequently bruising associated with fractures or surgery. The color associated with bruising usually black and blue and later on greenish - yellow and it may spread out as time passes. This is normal. ?? Sensation - When you have surgery you may be given a nerve block by Anesthesia or be given a local block at the site of surgery by the surgeon. This block makes your arm/hand feel numb and heavy. This sensation can last for several hours or as long as 24 - 72 hours after surgery. This is normal. Asthe block wears off, you should be able to feel your arm/hand. They should no longer feel tingly or numb. If the numbness/tingling persist this may be due to swelling. ?? Motion - You should be able to wiggle your fingers (if you have been instructed to do so). If youcannot, please call the office. ?? Temperature - The temperature of operative limb, as measured by touch, should be similar to the non-operative limb. It may be a bit cooler related to non use but shouldn't be significantly colder than the unaffected limb. Call our office if you have a concern. 5. Call our office if you have a fever of 102 or above. documented in this encounter Medications at Time of Discharge Medication Sig Dispensed Refills Start Date End Date acetaminophen (TYLENOL) Take 2 Tabs by mouth 0 500 mg tablet every 6 hours. betamethasone Apply 1 application 0 02/14/2019 dipropionate topically 2 times (DIPROLENE) 0.05 % daily. ointment buprenorphine-naloxone Place 12 mg under the 0 (SUBOXONE) 12-3 mg film tongue daily. collagenase (SANTYL) Apply 1 application 0 2018 ointment topically daily. ferrous gluconate Take 1 Tablet by 30 Tablet 0 05/04/2021 (FERGON) 324 mg (38 mg mouth 2 times daily iron) tablet with breakfast and dinner. gabapentin (NEURONTIN) Take 1 Tab by mouth 3 0 600 mg tablet times daily. HYDROmorphone Take 1 Tablet by 7 Tablet 0 05/04/2021 (DILAUDID) 2 mg tablet mouth every 4 hours as needed for Pain. Daily Max: 12 mg ibuprofen (MOTRIN) 800 Take 800 mg by mouth 0 08/2018 mg tablet 2 times daily. INTRAUTERINE DEVICE, 1 Device by 0 IUD, INTRAUTERINE intrauterine route. methocarbamol (ROBAXIN) Take 2 Tabs by mouth 0 500 mg tablet every 6 hours as needed for Muscle Spasms. multivitamin capsule Take 1 Cap by mouth 0 daily. NORLYDA 0.35 mg tablet 0 03/21/2019 traZODone (DESYREL) 50 Take 1 Tab by mouth 0 mg tablet at bedtime as needed for Sleep. amoxicillin (AMOXIL) Take 1 capsule by 39 capsule 0 05/04/19 22 05/17/2021 500 mg capsule mouth every 8 hours for 13 days. documented as of this encounter Ordered Prescriptions Prescription Sig Dispensed Refills Start Date End Date HYDROmorphone (DILAUDID) Take 1 Tablet by 7 Tablet 0 05/04 2 mg tablet mouth every 4 hours as needed for Pain. Daily Max: 12 mg ferrous gluconate Take 1 Tablet by 30 Tablet 0 05/04/2021 (FERGON) 324 mg (38 mg mouth 2 times daily iron) tablet with breakfast and dinner. amoxicillin (AMOXIL) 500 Take 1 capsule by 39 capsule 0 08/202105/17/2021 mg capsule mouth every 8 hours for 13 days. documented in this encounter Discharge Disposition Disposition Code Departure Means Destination Home-[facility] Care [facility] documented in this encounter Progress Notes Shane Cuevas MD - 05/04/2021 1119 EST Physician Query Response DEBRIDEMENT Anatomical Location: ( i.e. arm) wrist Instrument: (i.e. scalpel, curette) surgical sponge and irrigation Date: 04/30/2021 Please select from the choices below the option that best describes the patient's procedure: No, this is non-exisional involving the: Tendon Size: 4 sq cm Tissue Depth: Non-excisional debridement to tendon Antoinette Vargas RN - 05/04/2021 1742 EST Halima Taylor RN from [facility] called inquiring when was last dose of Suboxone was given. ANTOINETTE VARGAS RN 05/05/2021 11:48 Vaishali Humphrey - 05/04/2021 1541 EST Per , pt can be dc to home. She will have script for WC if needed. She will have calamyia VNA to assist with dressings. SHe has a ride scheduled with [facility] for 1800 in [facility] Onsite Care. Pt aware. Vaishali Briseno RNCC #[id number] Malik Fofana MD - 05/04/2021 1300 EST Images from the original note were not included. Dermatology Inpatient Consult Progress Note Subjective: Lindsay Jean Baptiste is a 40 y.o. female we are seeing for ulcers on the left great toe and left second toe. She reports that her ulcers remain unchanged and continue to be quite painful. She is excited about being discharged home today. Per the patient, she was previously scheduled to haveher left great toe amputated at an outside hospital due to chronic osteomyelitis and still plans to proceed with the surgery. She did not develop any ulcers on her right leg after her BKA. Objective: VS: BP 115/70 (BP Cuff Location: Left arm, BP Patient Position: Semi fowlers) Pulse 66 Temp 36.7??C (98.1 ??F) (Oral) Resp 16 Ht 165.1 cm (65) Wt 54.4 kg (120 lb) SpO2 98% BMI 19.97 kg/m?? Physical Exam: Cutaneous focused exam of the left foot was performed.The examination was normal with the addition of the following comments: -Left great toe and left second toe: Well-circumscribed round ulcers with fibrinous exudate at the base but no surrounding erythema or purulence Assessment/Recommendations: Chronic ulcers on the left foot: Patient has chronic ulcers of the left great toe and left second toe. Etiology of the ulcers are unclear, and differential diagnosis includes arterial ulcers vs venous stasis ulcers vs pyoderma gangrenosum. The ulcers do not appear to be infected on today's exam. Although pyoderma gangrenosum is a consideration, the ulcers do not have the classic dusky undermined borders that are often seen with pyoderma gangrenosum. Since this is a diagnosis of exclusion, other causes of chronic ulcers, including infection, should be ruled out. Unfortunately punch biopsies were notable to be obtained during her recent operation in the OR. -Since patient is being discharged today, we will plan to follow-up with patient in our outpatient clinic - For wound care, recommend washing the ulcers with Vashe solution daily. Ulcers should be covered with a thick layer of Santyl (to help remove fibrinous exudate) and Vaseline, followed by application of non-adherent Telfa dressing. The foot should then be wrapped in Kerlix. Malik Cain MD Dermatology, PGY-3 #[id number] 05/04/2021 22:22 Associated attestation - Keren Mckeon MD - 05/05/2021 0803 EST Attestation Statement: Reviewed the photos, I did not personally see the patient. From photos this is not characteristic of pyoderma gangrenosum therefore that is lower on the differential. Difficult to obtain a biopsy given patient preference so will have to coordinate as outpatient as she was dischar tay. Keren Mckeon MD 8:00 05/05/2021 Terra Maya MD - 05/04/2021 1230 EST Family Medicine Progress Note Service Date: 05/04/2021 Admit Date: 04/22/2021 15:22 Reason for Admission: 40 y.o. female admitted with a chief complaint of right arm swelling and now with a principal diagnosis of a right arm cellulitis. 24hr Events: - s/p OR Subjective/Objective Subjective Generally doing well this AM. Pain okay. Had some itching overnight, which she says is typical for her in the hospital. Amenable to biopsy of foot wound as the team is able. Review of Systems 10 pt ROS reviewed and negative unless otherwise stated in the HPI. Objective Vital Signs Temp: [36.2 ??C (97.1 ??F)-36.7 ??C (98.1 ??F)] , Heart Rate: [69 BPM-70 BPM] , Resp: [16-18] , BP: (95-121)/(53-64) , SpO2: [96 %-99 %] Physical General: sitting up comfortably in a hospital bed HEENT: Normocephalic, atraumatic, sclera anicteric Pulm: normal respiratory rate and effort Cardio: RRR Abdomen: Soft, non-tender, non-distended Extremities: No edema or cyanosis, right arm wrapped/splinted/elevated, left forefoot/toes wrapped with dressing c/d/i, R BKA Neuro: no gross deficits Skin: No jaundice, discoloration, no rashes or lesion on visible skin Psych: Normal mood and affect Is PICC or central line present? Yes, it is still present. The line is still required. Medications: Reviewed. Labs: Reviewed: CBC: Recent Labs 05/02/21 0605 05/03/21 0524 05/04/21 0552 WBC 4.30 2.37* 1.95* RBC 3.24* 3.41* 3.29* HGB 8.9* 9.7* 8.9* HCT 29.2* 29.4* 29.1* MCV 90 86 88 MCH 27.5 28.4 27.1 MCHC 30.5* 33.0 30.6* PLT 220 236 218 NEUTROABS 3.31 1.51* 1.11* BMP: Recent Labs 05/02/21 0605 05/03/21 0525 05/04/21 0551 NA 135* 137 137 K 4.0 4.2 4.2 CL 98 98 99 CO2 29 29 29 BUN 19 21 17 CREATININE 0.64 0.69 0.59 CALCIUM 8.9 9.0 8.5 Imaging: Reviewed. No new imaging. Assessment/Plan Assessment Lindsay Jean Baptiste is a 40 y.o. female with a PMHx significant for osteomyelitis status post right BKA, IVDU, opioid use disorder and chronic foot ulcers presents from [facility] for concerns for worsening right arm pain, swelling, and redness. She was found to have a deep wrist infection. Underwent washout and carpal tunnel release with Orthopedics on admission, with returns to OR for I&D and progressive closure on 04/27 and 04/30, 05/03. Pt remains hemodynamically stable and afebrile. Regarding her chronic left foot ulcers, derm recommending biopsies for further evaluation of pyoderma gangrenosum vs other. Patient declined bedside biopsy and ortho hand service unable to proceed with biopsy while in the OR. Pending length of stay, may do at bedside with nerve block. Plan #Sepsis secondary to right arm with deep space carpal tunnel infection: CT from outside hospital showed no abscess, but fluid within the flexor tendon sheath within the carpel tunnel. HIV neg, Hep B surface Ab positive, Hep A total Ab positive (IgM negative). Cannot pursue MR imaging, if indicated, due to retained needle in left groin. - f/u blood cultures (05/02), NGTD - Ortho consulted, appreciate assistance in care - Purulent fluid collected in OR (04/23) during washout and carpal tunnel release, (+) GPC - OR 04/27, wound culture, no bacteria seen - OR 04/30, I&D and progressive closure - OR 05/03 for additional closure - NWB of RUE, aggressive elevation, maintain volar resting - ID consulted appreciate recs - Vanc [id number] - Continue ceftriaxone 2g Q24hrs until ready for discharge, then transition to cefpodoxime 200mg PO BID for total 4 week duration of abx (ending 05/21/21) - Pain regimen: APS now signed off - s/p Ketamine gtt - STOP dilaudid LAPIDARIST today; switch to PO - Tylenol 1000 mg PO Q12hr - Continue PLUSH DRESSER gabapentin 600mg qD - Tizanidine increased to 8mg PO Q8hr PRN - Ibuprofen 400mg PO q6hr PRN - Continue PLUSH DRESSER 6mg total as Suboxone 2-0.5mg x 3 film SL daily - Monitor fever curve - Daily CBCs with diff #Chronic Left Hallux and 2nd Toe Wound: C/f pyoderma gangrenosum vs. Hep C associated cryo vs other.Followed by podiatry at outside hospital. Ortho evaluated on admission and recommended dressing changes per patient home recs. - F/u cryoglobulins - Derm consulted, appreciate recommendations - Recommended biopsy at bedside, plan evolving. - Consider biopsy in OR by ortho, ortho hand service unable to do this. Derm without OR privileges to proceed with biopsy in the OR. - For wound care, recommend washing the ulcers with Vashe solution daily. Ulcers should be covered with a thick layer of Vaseline, followed by application of non-adherent Telfa dressing. The foot should then be wrapped in Kerlix. #Leukopenia: may be secondary to CTX - will switch to PO regimen per ID recs today (amoxicillin vs cefpodoxime) #Normocytic Anemia, chronic per chart review. Iron studies consistent with iron deficiency anemia. - ferrous gluconate BID #History of Raynaud's disease - Continue PLUSH DRESSER gabapentin ?? #Opoid use disorder - Regularly gets Suboxone from [facility]. UDS at OSH positive for cocaine use. - Continue PLUSH DRESSER suboxone - APS consulted , appreciate recs, pain management as above -Bowel Regimen: Senna 2 tablets PO at bedtime in combination with Polyethylene glycol (PEG) 17 g PO every day. -Naloxone at D/C -Inpatient substance use treatment algorithm: - UDS samples PRN - Consult pharmacy for med review - Cover all IVs at all time - Substance use agreement signed ?? VTE Prophylaxis Ambulation and SCDs Code: Prior Discharge Plan Home after wound closure and weaning of analgesics, perhaps as soon as later today Consults APS, Ortho, ID Pt discussed with and seen by Dr. Susan Maya MD. Family Medicine PGY-3, [phone] 05/04/2021 Associated attestation - Susan Graham MD - 05/04/2021 2322 EST Attestation: I saw and examined the patient with the resident/fellow 05/04/21. I agree with the findings and plan of care documented in the resident's/fellow's note. Susan Graham MD 05/04/2021 23:22 Sourav Leal MD - 05/04/2021 0044 EST Orthopedic progress note Problem: Right deep hand infection with acute carpal tunnel syndrome Procedure: Open carpal tunnel release and irrigation debridement of the right hand on 04/23 with Irrigation and debridement of the right hand with progressive closure on 04/27/[address] Bansal Irrigation and debridement of the right hand with progressive closure on 04/30/[address] Cuevas Irrigation debridement of the right hand with closure on 05/03/[address] Hughes Subjective: The patient is doing well this morning. She is sitting up in bed watching TV in no distress. She feels the swelling is significantly improved. Her fingers do feel stiff but she feels she ismoving them better. The sensation in her hand feels normal. She denies any chest pain or shortness of breath Objective:BP 104/58 (BP Cuff Location: Left arm, BP Patient Position: Semi fowlers) Pulse 66 Temp 36.2 ??C (97.1 ??F) (Oral) Resp 16 Ht 165.1 cm (65) Wt 54.4 kg (120 lb) SpO2 96% BMI 19.97 kg/m?? Laying comfortably in bed in no apparent distress Nonlabored breathing The right upper extremity is propped up on a pillow. The dressing is clean, dry, intact She has intact sensation along the median, ulnar, and radial distributions Her fingers are warm and well-perfused with brisk capillary refill She is stiff but able to flex and extend the DIP and PIP joints of her fingers as well as fire FPL and EPL. 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 She has had multiple irrigation debridement and hashad definitive closure on 04/[address] Hughes. We anticipate that the wound will continue to heal with secondary intention. We do not plan for any further irrigation and debridements. I explained to the patient that she will be doing twice daily dressing changes with plan for her to follow-up in our outpatient upper extremity clinic. We also discussed the importance of passive and active range of motion of the fingers and thumb to improve her stiffness. Nonweightbearing right upper extremity Aggressively elevate the right upper extremity Regular diet Multimodal pain control Antibiotics per primary Dressing instructions to be performed by the patient and with nursing while at the hospital: Change the dressing twice daily Remove the dressing Lightly clean with sterile saline soaked 4x4s around the incision site Pat dry Apply xerofrom over the incision Cover with 4x4s, and wrap with an zofia bandage Dispo: No plan for further surgery on the right upper extremity. Dispo per primary. An outpatient follow-up has been placed with orthopedics Sourav Leal MD 05/04/2021 0:44 I am not electronic publishing specialist today and will not be able to answer calls. Please direct calls to the orthopaedicson call resident for further questions. Karly Ferrara RN - 05/03/2021 8891 EST Data: Assumed care of Pt at 0700 Pt A&Ox3 Denies CP/SOB/N/V/D/GUILLEN. Pt is independent to commode. Continent of urine and stool. On Room air. On a LAPIDARIST dilauded pump. BKA RLE. Pt went to OR today for closure of wound on RUE (wrist). Pt went down this afternoon for an echo. ?? Action: Head to toe assessment. Medicated per JUN. Hourly checks. ?? Response: No acute changes this shift. Pt safety maintained. WCTM. ?? KARLY CASTORENA RN 05/03/2021 17:48 Brendon Sherman MD - 05/03/2021 0856 EST Family Medicine Progress Note Service Date: 05/03/2021 Admit Date: 04/22/2021 15:22 Reason for Admission: 40 y.o. female admitted with a chief complaint of right arm swelling and now with a principal diagnosis of a right arm cellulitis. 24hr Events: - derm consulted for pyoderma gangrenosum Subjective/Objective Subjective Feels better this morning. States her fingers feel less swollen and feels like she has more room to move her arm in the splint. Pain continues to be well controlled and she looks forward to transitioning off the LAPIDARIST after the OR today. Really hopeful they can close her arm. Regarding her left foot ulcers, patient declining bedside biopsy. She does not think this is pyoderma gangrenosum and states steroids made her wounds worse rather than better in the past Review of Systems 10 pt ROS reviewed and negative unless otherwise stated in the HPI. Objective Vital Signs Temp: [36.7 ??C (98.1 ??F)-37.5 ??C (99.5 ??F)] , Heart Rate: [68 BPM-91 BPM] , Resp: [9-20] , BP: (88-115)/(52-69) , SpO2: [93 %-99 %] Physical General: sitting up comfortably in a hospital bed HEENT: Normocephalic, atraumatic, sclera anicteric Pulm: normal respiratory rate and effort Cardio: RRR Abdomen: Soft, non-tender, non-distended Extremities: No edema or cyanosis, right arm wrapped/splinted/elevated, left forefoot/toes wrapped with dressing c/d/i, R BKA Neuro: no gross deficits Skin: No jaundice, discoloration, no rashes or lesion on visible skin Psych: Normal mood and affect Is PICC or central line present? Yes, it is still present. The line is still required. Medications: Reviewed. Labs: Reviewed: CBC: Recent Labs 05/01/21 0532 05/02/21 0605 05/03/21 0524 WBC 6.24 4.30 2.37* RBC 3.36* 3.24* 3.41* HGB 9.6* 8.9* 9.7* HCT 29.5* 29.2* 29.4* MCV 88 90 86 MCH 28.6 27.5 28.4 MCHC 32.5 30.5* 33.0 PLT 351 220 236 NEUTROABS 4.64 3.31 1.51* BMP: Recent Labs 05/01/21 0532 05/02/21 0605 05/03/21 0525 NA 137 135* 137 K 4.8 4.0 4.2 CL 98 98 98 CO2 29 29 29 BUN 28* 19 21 CREATININE 0.72 0.64 0.69 CALCIUM 9.1 8.9 9.0 Imaging: Reviewed. No new imaging. Assessment/Plan Assessment Lindsay Jean Baptiste is a 40 y.o. female with a PMHx significant for osteomyelitis status post right BKA, IVDU, opioid use disorder and chronic foot ulcers presents from [facility] for concerns for worsening right arm pain, swelling, and redness. She was found to have a deep wrist infection. Underwent washout and carpal tunnel release with Orthopedics on admission, with returns to OR for I&D and progressive closure on 04/27 and 04/30. Pt remains hemodynamically stable and afebrile. Wound remains partially open with Orthopedics planning further I&D and closure today 05/03. Regarding her chronic left foot ulcers, derm recommending biopsies for further evaluation of pyoderma gangrenosum vs other. Patient declined bedside biopsy and ortho hand service unable to proceed with biopsy while in the OR. Plan #Sepsis secondary to right arm with deep space carpal tunnel infection: CT from outside hospital showed no abscess, but fluid within the flexor tendon sheath within the carpel tunnel. HIV neg, Hep B surface Ab positive, Hep A total Ab positive (IgM negative). Cannot pursue MR imaging, if indicated, due to retained needle in left groin. - f/u TTE - f/u blood cultures (05/02) - Ortho consulted, appreciate assistance in care - Purulent fluid collected in OR (04/23) during washout and carpal tunnel release, (+) GPC - OR 04/27, wound culture, no bacteria seen - OR 04/30, I&D and progressive closure - Plan further I&D and closure today 05/03, NPO at midnight - NWB of RUE, aggressive elevation, maintain volar resting - ID consulted appreciate recs - Vanc [id number] - Continue ceftriaxone 2g Q24hrs until ready for discharge, then transition to cefpodoxime 200mg PO BID for total 4 week duration of abx (ending 05/21/21) - Pain regimen: APS now signed off - s/p Ketamine gtt - Dilaudid LAPIDARIST 0.4mg q10 min PRN, no basal rate - plan to transition to PO after OR washout 05/03 - Tylenol 1000 mg PO Q12hr - Continue PLUSH DRESSER gabapentin 600mg qD - Tizanidine increased to 8mg PO Q8hr PRN - Ibuprofen 400mg PO q6hr PRN - Continue PLUSH DRESSER 6mg total as Suboxone 2-0.5mg x 3 film SL daily - Monitor fever curve - Daily CBCs with diff #Chronic Left Hallux and 2nd Toe Wound: C/f pyoderma gangrenosum vs. Hep C associated cryo vs other.Followed by podiatry at outside hospital. Ortho evaluated on admission and recommended dressing changes per patient home recs. - F/u cryoglobulins - Derm consulted, appreciate recommendations - Recommended biopsy at bedside, patient declined due to pain. - Consider biopsy in OR by ortho, ortho hand service unable to do this. Derm without OR privileges to proceed with biopsy in the OR. - For wound care, recommend washing the ulcers with Vashe solution daily. Ulcers should be covered with a thick layer of Vaseline, followed by application of non-adherent Telfa dressing. The foot should then be wrapped in Kerlix. #Normocytic Anemia, chronic per chart review. Iron studies consistent with iron deficiency anemia. - ferrous gluconate BID #History of Raynaud's disease - Continue PLUSH DRESSER gabapentin ?? #Opoid use disorder - Regularly gets Suboxone from [facility]. UDS at OSH positive for cocaine use. - Continue PLUSH DRESSER suboxone - APS consulted , appreciate recs, pain management as above -Bowel Regimen: Senna 2 tablets PO at bedtime in combination with Polyethylene glycol (PEG) 17 g PO every day. -Naloxone at D/C -Inpatient substance use treatment algorithm: - UDS samples PRN - Consult pharmacy for med review - Cover all IVs at all time - Substance use agreement signed ?? VTE Prophylaxis Ambulation and SCDs Code: Prior Discharge Plan Home after wound closure and weaning of analgesics Consults APS, Ortho, ID Brendon Justice MD Family Medicine, PGY1 05/03/21 10:43 #[id number] [employer] Associated attestation - Susan Graham MD - 05/03/2021 1058 EST Attestation: I saw and examined the patient with the resident/fellow 05/03/21. I agree with the findings and plan of care documented in the resident's/fellow's note. Appreciate derm consult, punch biopsies of L toe ulcer unfortunately unable to be obtained in OR. Plan per below. Susan Graham MD 05/03/2021 10:58 Sourav Leal MD - 05/03/2021 0556 EST Orthopedic progress note Problem: Right deep hand infection with acute carpal tunnel syndrome Procedure: Open carpal tunnel release and irrigation debridement of the hand on 04/[address] Bansal Irrigation debridement of the right hand with progressive closure on 04/27/[address] Bansal Irrigation and debridement of the right hand with progressive closure on 04/30/[address] Cuevas Subjective: Tiffany feels she is doing better. She is moving her hand more. She feels less stiff. Denies any fevers or chills. Looking forward to hopeful definitive closure today Objective:BP 110/58 (BP Cuff Location: Left arm, BP Patient Position: Sitting) Pulse 79 Temp 37.5 ??C (99.5 ??F) (Oral) Resp 16 Ht 165.1 cm (65) Wt 54.4 kg (120 lb) SpO2 93% BMI 19.97 kg/m?? Laying comfortably in bed no apparent distress Nonlabored breathing The right upper extremity is propped up on one pillow. The dorsal aspect of the dressing was taken down and she has significantly improved wrinkling over the dorsal aspect of her hand She has intact sensation along the median ulnar and radial distributions Her fingers are warm and well-perfused with brisk capillary refill She is able to flex and extend at the DIP and PIP joint as well as fire FPL and EPL. 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 Due to the extensive swelling this was left open and has had several take backs with irrigation debridement and progressive closure. Goal for today is progressive closure versus definitive closure. In regards to her foot wounds. Discussed withdermatology yesterday evening and a message was sent this morning that the upper extremity service would not be collecting a biopsy of the foot however they would like to join us in the OR to do that they are welcome to to do that Nonweightbearing right upper extremity Keep splint in place Aggressive elevation of the right upper extremity N.p.o. for the OR Ancef on-call to the OR Multimodal pain control Antibiotics per primary Dispo pending definitive closure Sourav Leal MD 05/03/2021 6:01 Karly Ferrara RN - 05/02/2021 1818 EST Data: Assumed care of Pt at 0700 Pt A&Ox3 Denies CP/SOB/N/V/D/GUILLEN. Pt is independent to commode. Continent of urine and stool. On Room air. On a LAPIDARIST dilauded pump. BKA RLE. NPO at midnight for procedure to R arm tomorrow. Action: Head to toe assessment. Medicated per JUN. Hourly checks. Response: No acute changes this shift. Pt safety maintained. WCTM. KARLY CASTORENA RN 05/02/2021 18:18 Reddy Smith MD - 05/02/2021 0941 EST Orthopaedic Daily Progress Note ?? Diagnosis/Procedure: Right deep hand infection with acute carpal tunnel syndrome s/p: -Open carpal tunnel release and I&D of the hand on 04/23/[address] Bansal -I&D of right hand with progressive closure 04/27/[address] Bansal -I&D or right hand with progressive closure 04/30/[address] Cuevas ?? Subjective: He reports she is doing well this morning. She feels her sensation in the fingers is improving, in addition to her pain which is a movement improving. She has been trying to elevate her arm. No new fever, chills, nausea, vomiting. ?? Objective: BP 106/56 (BP Cuff Location: Left arm, BP Patient Position: Sitting) Pulse 75 Temp 36.5 ??C (97.7 ??F) (Oral) Resp 16 Ht 165.1 cm (65) Wt 54.4 kg (120 lb) SpO2 98% BMI 19.97 kg/m?? No acute distress Non-labored breathing Focused MSK: RUE: Volar resting splint in place. Swelling of the right digits circumferentially. Mild 10 to 20 degree flexion contracture of the DIP and PIP joints. No pain with passive extension or flexion of the digits. Sensation intact to light touch in the M/U/R distributions of the right hand. Fires EPL, interossei, and FPL Fingers warm and well-perfused, cap refill less than 2 seconds. ?? Labs: WBC/Hgb/Hct/Plts: 4.30/8.9/29.2/220 (05/02 604) BUN/Cr/glu/ALT/AST/amyl/lip: 19/0.64/93/--/--/--/-- (05/02 604) Na/K/Cl/CO2: 135/4.0/98/29 (05/02 604) ?? Assessment: Lindsay Jean Baptiste is a 40 y.o. female with PMH significant for IVDU (reportedly clean for 2 years), hepatitis C, opioid use disorder, right BKA (2019 for foot infection), left hallux and second toe wound (followed by outside hospital podiatry), right femoral artery infected pseudoaneurysm (s/p bypass 2017), retained needle in left groin, left upper extremity median and ulnar nerve palsyfrom a tourniquet injury??(~2008)??who underwent right hand open carpal tunnel release and hand I&D on 04/22/[address] Bansal for a deep infection as well as acute carpal tunnel syndrome and repeat I&D, with progressive wound closure on 04/27/[address] Bansal and again on 04/30/[address] Cuevas.?? Plan for repeat I&D tomorrow 05/03/2021 and hopefully progressive closure of the wound at that time. ?? Plan: -Appreciate care per primary team -Plan for repeat I&D and progressive closure tomorrow 05/03/2021. -Weight Bearing: NWB RUE -Aggressive elevation RUE -Maintain splint to RUE -Multimodal pain control -Diet: N.p.o. at midnight for I&D tomorrow. -Antibiotics: Per ID -Continue local/PLUSH DRESSER management of left foot ulceration with outpatient follow-up with school janitor -Dispo: Pending REDDY JEROME MD 05/02/21 10:12 Patient has been formally staffed and signed out to the upper extremity service. Please page/contactthe on-call resident for that service with any questions regarding this patient's care. Vaishali Humphrey - 05/02/2021 0920 EST Pt is medically acute. Still needing closure of her wrist.CM following for DC needs. Plan for [facility]. Vaishali BrisenoRNCCM #[id number] Brendon Sherman MD - 05/02/2021 0724 EST Family Medicine Progress Note Service Date: 05/02/2021 Admit Date: 04/22/2021 15:22 Reason for Admission: 40 y.o. female admitted with a chief complaint of right arm swelling and now with a principal diagnosis of a right arm cellulitis. 24hr Events: - NAEO Subjective/Objective Subjective No acute concerns this morning. Feels her pain has been well controlled since stopping the ketamine drip over the weekend. Using her dilaudid LAPIDARIST frequently but is unsure how often. States overnight she is able to sleep 2-3hours at a time without having to push the button, but finds herself having to use it more frequently during the day. Would like to come off narcotics as soon as possible. Feels the swelling in her fingers is getting better. She is unaware of an update from ortho regarding furtherprocedures. Review of Systems 10 pt ROS reviewed and negative unless otherwise stated in the HPI. Objective Vital Signs Temp: [36.6 ??C (97.9 ??F)-37.3 ??C (99.1 ??F)] , Heart Rate: --, Resp: [16-18] , BP: (108-121)/(58-74) , SpO2: [96 %-98 %] Physical General: sitting up comfortably in a hospital bed HEENT: Normocephalic, atraumatic, sclera anicteric Pulm: normal respiratory rate and effort Cardio: RRR Abdomen: Soft, non-tender, non-distended Extremities: No edema or cyanosis, right arm wrapped/splinted and resting in lap, left forefoot/toeswrapped with dressing c/d/i, R BKA Neuro: no gross deficits Skin: No jaundice, discoloration, no rashes or lesion on visible skin Psych: Normal mood and affect Is PICC or central line present? Yes, it is still present. The line is still required. Medications: Reviewed. Labs: Reviewed: CBC: Recent Labs 04/30/21 0541 05/01/21 0532 05/02/21 0605 WBC 7.18 6.24 4.30 RBC 3.65* 3.36* 3.24* HGB 10.1* 9.6* 8.9* HCT 32.9* 29.5* 29.2* MCV 90 88 90 MCH 27.7 28.6 27.5 MCHC 30.7* 32.5 30.5* PLT 359 351 220 NEUTROABS 4.64 4.64 3.31 BMP: Recent Labs 04/30/21 0542 05/01/21 0532 05/02/21 0605 NA 138 137 135* K 4.8 4.8 4.0 CL 98 98 98 CO2 29 29 29 BUN 24 28* 19 CREATININE 0.69 0.72 0.64 CALCIUM 9.4 9.1 8.9 Imaging: Reviewed. No new imaging. Assessment/Plan Assessment Lindsay Jean Baptiste is a 40 y.o. female with a PMHx significant for osteomyelitis status post right BKA, IVDU, opioid use disorder and chronic foot ulcers presents from [facility] for concerns for worsening right arm pain, swelling, and redness. She was found to have a deep wrist infection. Underwent washout and carpal tunnel release with Orthopedics on admission, with returns to OR for I&D and progressive closure on 04/27 and 04/30. Pt remains hemodynamically stable and afebrile. Wound remains partially open with Orthopedics planning further I&D and closure tomorrow 05/03. Ongoing coordination of care between Orthopedics and Infectious Disease who now have a PO antibiotic pain. Plan #Sepsis secondary to right arm with deep space carpal tunnel infection: CT from outside hospital showed no abscess, but fluid within the flexor tendon sheath within the carpel tunnel. HIV neg, Hep B surface Ab positive, Hep A total Ab positive (IgM negative). Cannot pursue MR imaging, if indicated, due to retained needle in left groin. - Ortho consulted, appreciate assistance in care - Purulent fluid collected in OR (04/23) during washout and carpal tunnel release, (+) GPC - OR 04/27, wound culture, no bacteria seen - OR 04/30, I&D and progressive closure - Plan further I&D and closure on 05/03, NPO at midnight - NWB of RUE, aggressive elevation, maintain volar resting - ID consulted appreciate recs - Vanc [id number] - Continue ceftriaxone 2g Q24hrs until ready for discharge, then transition to cefpodoxime 200mg PO BID for total 4 week duration of abx (ending 05/21/21) - f/u with ID regarding switch to ampicillin given speciation S. dysgalactiae - Pain regimen: APS now signed off - s/p Ketamine gtt - Dilaudid LAPIDARIST 0.4mg q10 min PRN, no basal rate - consider transitioning to PO after OR washout tomorrow 05/03 - Tylenol 1000 mg PO Q12hr - Continue PLUSH DRESSER gabapentin 600mg qD - Tizanidine increased to 8mg PO Q8hr PRN - Ibuprofen 400mg PO q6hr PRN - Continue PLUSH DRESSER 6mg total as Suboxone 2-0.5mg x 3 film SL daily - Monitor fever curve - Daily CBCs with diff #Left Hallux and 2nd Toe Wound: Followed by podiatry at outside hospital. Ortho evaluated on admission and recommended dressing changes per patient home recs. - Dressing change q72hrs #Normocytic Anemia, chronic per chart review - f/u iron studies #History of Raynaud's disease - Continue PLUSH DRESSER gabapentin ?? #Opoid use disorder - Regularly gets Suboxone from [facility] clinic. UDS at OSH positive for cocaine use. - Continue PLUSH DRESSER suboxone - APS consulted , appreciate recs, pain management as above -Bowel Regimen: Senna 2 tablets PO at bedtime in combination with Polyethylene glycol (PEG) 17 g PO every day. -Naloxone at D/C -Inpatient substance use treatment algorithm: - UDS samples PRN - Consult pharmacy for med review - Cover all IVs at all time - Substance use agreement signed ?? VTE Prophylaxis Ambulation and SCDs Code: Prior Discharge Plan Home after wound closure and weaning of analgesics Consults APS, Ortho, ID Brendon Justice MD Family Medicine, PGY1 05/02/21 7:27 #[id number] [employer] Associated attestation - Susan Graham MD - 05/02/2021 2211 EST Attestation: I saw and examined the patient with the resident/fellow 05/02/21. I agree with the findings and plan of care documented in the resident's/fellow's note. Appreciate derm consult this afternoon, will request punch biopsies of L toe ulcer in OR tomorrow. Susan Graham MD 05/02/2021 22:09 Evelyn Nj RN - 05/01/2021 1258 EST Data: Pt A&Ox3, RLE amputation. Wound on left foot. Right arm in cast with zofia bandage. Ketaminedrip. LAPIDARIST dilaudid. Complains of pain 12/07. Action: Helped pt elevate RUE with pillows, gave meds per emar, hourly checks. Wound care dressing change on left foot. Response: Pt is comfortable in bed, using LAPIDARIST, will continue to monitor. EVELYN NJ RN 05/01/2021 12:58 Juliano Sage - 05/01/2021 0811 EST ACUTE PAIN SERVICE INITIAL INPATIENT FOLLOW UP NOTE CHIEF COMPLAINT: right upper extremity pain SUBJECTIVE: Patient is doing well and pain is very well controlled. Ketamine discontinued today. REVIEW OF SYSTEMS: Constitutional: Eye Mouth/Ent Cardiovascular: Yes No Yes No Yes No Yes No [] [x] Chills [] [] Blurry vision [] [] Dry mouth [] [] Chest Pain/Pressure [] [x] Fevers [] [] Double vision [] [] Increased salivation [] [] Palpitations [] [x] Hallucinations [] [] Photophobia [] [] [] [] [] [x] Nightmares [] [] Poor sleep Respiratory: Gastrointestinal: : [] [] Sedation Yes No Yes No Yes No [] [] [] [] Painful respirations [] [] Abdominal pain [] [] Difficulty urinating [] [x] Shortness of breath [] [x] Constipation [] [] Bladder spasms Neurological: [] [] [] [x] Diarrhea [] [] Yes No [] [] Nausea [] [] Headache Musculoskeletal: [x] [] Tolerating orals Integumentary: [] [x] right upper extremity numbness Yes No [] [] Vomiting Yes No [] [] Lower extremity weakness [] [] Backache [] [] [] [x] Itching [] [] Neck pain [] [] Muscle aches [] [] Rash [] [] Tinnitus [] [] Muscle spasms Psychiatric [] [] [] [] [] [] Weakness [] [] Anxious [] [] [] [] Depressed mood Hematologic: Allergic/Immunologic: [] [] Yes No Yes No Endocrine: [] [] Easy bleeding/bruising [] [] Hives [] [] Decreased libido [] [] Blood clots [] [] Immune deficiency [] [] Weight loss [] [] Medications: Current Facility-Administered Medications: ??? acetaminophen (TYLENOL) tablet 500 mg, 500 mg, oral, Q6H, Sarah Monet PA-C, 500 mg at 05/01/21 0524 ??? alteplase (CATHFLO ACTIVASE) injection 2 mg, 2 mg, intercatheter, PRN, Sydnie Chakraborty, DO ??? buprenorphine-naloxone (SUBOXONE) 2-0.5 mg sublingual film 3 Film, 3 Film, sublingual, DAILY, Sarah Monet PA-C, 3 Film at 04/30/21 1138 ??? cefTRIAXone (ROCEPHIN) 2,000 mg in sodium chloride (NS MBP) 50 mL IVPB, 2,000 mg, intravenous, Q24H, Yuriy Chakrabortyia, DO, 2,000 mg at 04/30/21 2347 ??? diphenhydrAMINE (BENADRYL) capsule 25 mg, 25 mg, oral, Q6H PRN, Sydnie Chakraborty, DO, 25 mg at 04/30/21 2345 ??? gabapentin (NEURONTIN) capsule 600 mg, 600 mg, oral, DAILY (BREAKFAST), Sarah Monet PA-C, 600 mg at 04/30/21 1139 ??? HYDROmorphone 1 mg/ml (DILAUDID) LAPIDARIST syringe, 30 ml, , intravenous, CONTINUOUS, Leo Aguilar MD, New Bag at 04/30/21 1552 ??? ibuprofen (MOTRIN) tablet 400 mg, 400 mg, oral, Q6H PRN, Christin Young MD, 400 mg at 310 ??? ketAMINE (KETALAR) 250 mg in NaCl 0.9% 25 mL syringe, 5 mg/hr, intravenous, CONTINUOUS, Juliano Damon, Last Rate: 0.5 mL/hr at 05/01/21 0713, 5 mg/hr at 05/01/21 0713 ??? lidocaine (PF) 10 mg/mL (1 %) injection 2 mg, 2 mg, intradermal, PRN, Sarah Monet PA-C ??? polyethylene glycol 3350 (MIRALAX) packet 17 g, 17 g, oral, DAILY, Sarah Monet PA-C, 17 g at 04/30/21 1338 ??? senna (SENOKOT) tablet 2 Tablet, 2 Tablet, oral, QHS, Sarah Monet PA-C, 2 Tablet at 04/30/21 2117 ??? tiZANidine (ZANAFLEX) tablet 4 mg, 4 mg, oral, Q8H PRN, Sarah Monet PA-C, 4 mg at 04/30/21 2301 Allergies: Allergies Allergen Reactions ??? Other - See Comments Pt allergic to soap in sheets, red raised rash on back PHYSICAL EXAM: BP 106/56 (BP Cuff Location: Left arm, BP Patient Position: Sitting) Pulse 75 Temp 36.5 ??C (97.7 ??F) (Oral) Resp 16 Ht 165.1 cm (65) Wt 54.4 kg (120 lb) SpO2 98% BMI 19.97 kg/m?? Constitutional: alert, oriented, tearful, and in severe discomfort Respiratory: unlabored breathing Musculoskeletal: RUE with post surgical dressing Neuro: moves RUE Psych: affect wnl LABORATORIES: Covid-19: Lab Results Component Value Date COVID-19 rt-PCR Result Negative 04/29/2021 COVID-19 rt-PCR Result NEGATIVE 05/13/2020 COVID-19 rt-PCR Result NEGATIVE 05/13/2020 CBC: Recent Labs 04/29/21 0538 04/30/21 0541 05/01/21 0532 WBC 10.20 7.18 6.24 RBC 3.45* 3.65* 3.36* HGB 9.8* 10.1* 9.6* HCT 30.2* 32.9* 29.5* MCV 88 90 88 MCH 28.4 27.7 28.6 MCHC 32.5 30.7* 32.5 PLT 312 359 351 NEUTROABS 7.64 4.64 4.64 BMP: Recent Labs 04/29/21 0538 04/30/21 0542 05/01/21 0532 NA 137 138 137 K 4.7 4.8 4.8 CL 99 98 98 CO2 29 29 29 BUN 18 24 28* CREATININE 0.60 0.69 0.72 CALCIUM 9.3 9.4 9.1 LFT: No results for input(s): TBIL, ALKPHOS, AST, ALT, LIPASE, AMYLASE in the last 72 hours. Cardiac Markers: No results for input(s): CK, MB, CKMBINDEX, TROPONINI in the last 72 hours. ASSESSMENT: This is a 40 y.o. female w/ PMH substance use disorder (IVDU, opioids, cocaine) on suboxone c/b peripheral vascular disease (right obturator bypass 2018 for infected pseudoaneurysm followed by right BKA 2019), hepatitis C, DVT, and depression s/p open carpal tunnel release (04/23)/ POD#4 for I+D for increased right hand swelling/redness/pain x 3d and POD#3 complex incision and drainage of RUE. Pain is well controlled today. Overall doing well, Pain well controlled 1. Pain chronicity: Acute 2. Pain type: Somatic nociceptive pain, Neuropathic pain and Inflammatory pain 3. Opioid Tolerance: Opioid tolerant with opioid misuse disorder 4. Pain intensity: Severe 5. Pain Trend: Stable 6. Opioid risk tool assessment: High risk of opioid misuse (score 8+) (Opioid Risk Tool Link) RECOMMENDATIONS: Brachial plexus block cannot be performed given risk for compartment syndrome. Non-Opioid Adjuncts ??? Acetaminophen: Continue reduced dose given history of hep C of 500 mg PO Q6H standing. ??? Discontinued ketamine ??? Continue gabapentin 600 mg PO daily ? ? Muscle Relaxant: Continue tizanidine 4 mg PO Q8H PRN (hold if systolic blood pressure < 100 mmHg or if the patient is sedated). Tizanidine is an [id number] like dexmedetomidine which may help with anxiety, sleep, muscle spasms, and/or pain. By its self, it does not suppress the respiratory drive. It may cause Qtc prolongation in combination with other medications (e.g. ciprofloxacin and methadone). Do not administer concomitantly with clonidine or dexmedetominidine or CYP inhibitors such as famotidine. Bradycardia and profound hypotension may be seen if combined with an ZOFIA inhibitor or ARB. ??? Continue ibuprofen 400 mg PO Q6H PRN. Change to scheduled if possible. Opioids: (Expected duration of opioid use for specific surgeries: [facility]) ??? Continue hydromorphone LAPIDARIST 0.4 mg every 10 mins No Basal rate 2.4 mg per hour limit ??? Pt's home dose daily 6mg Suboxone: as such continue Suboxone 2-0.5mg 3 film SL daily ??? Bowel Regimen: Senna 2 tablets PO at bedtime in combination with PEG or lactulose. Senna may cause abdominal cramping (Indication: prophylactic) ??? Polyethylene glycol (PEG) 17 g PO every day. ??? Naloxone: On discharge, please provide prescription for naloxone 1 mg intranasal x1 for respiratory depression for high risk patients (e.g. history of history of opioid or substance use disorder, > 50 morphine mg equivalents per day, contaminant benzodiazepine use, etc.) Pain service signing off. Please contact if you have any questions or concerns. Juliano Damon MD Chronic Pain Fellow, PGY5 Associated attestation - Juarez Martinez MD - 05/02/2021 0750 EST Attending attestation: I saw and examined the patient with the pain fellow/resident. I agree with the findings and plan of care documented in this note. Juarez Martinez MD 04/22/2021 Christin Young MD - 05/01/2021 0759 EST [facility] Medicine Progress Note Service Date: 05/01/2021 Admit Date: 04/22/2021 15:22 Reason for Admission: 40 y.o. female admitted with a chief complaint of right arm swelling and now with a principal diagnosis of a right arm cellulitis. 24hr Events: - OR with Ortho for I&D and partial closure - Ketamine gtt decreased to 5 mg/hr yesterday and discontinued this morning Subjective/Objective Subjective Feeling okay this morning. She notes that her arm feels a little crampy and she thinks that her bandage feels tighter than prior. She feels that her pain is fine with the ketamine drip off. Has been using her LAPIDARIST frequently for the cramping sensation, notes her muscle relaxant does help a little for this as well. She denies any lightheadedness with ambulation. Talked with ortho this morning, they noted needing a 'couple more procedures' but not sure about timing. She is hoping she can get home soon. Review of Systems 10 pt ROS reviewed and negative unless otherwise stated in the HPI. Objective Vital Signs Temp: [36.5 ??C (97.7 ??F)-36.9 ??C (98.4 ??F)] , Heart Rate: [64 BPM-81 BPM] , Resp: [13-16] , BP: (106-128)/(56-92) , SpO2: [93 %-100 %] Physical General: sitting up comfortably in a hospital bed HEENT: Normocephalic, atraumatic, normal sclera & conjunctivae Pulm: normal respiratory rate and effort Cardio: RRR Abdomen: Soft, non-tender, non-distended Extremities: No edema or cyanosis, right arm wrapped/splinted/elevated, left forefoot/toes wrapped with dressing c/d/i, R BKA Neuro: no gross deficits Skin: No jaundice, discoloration, no rashes or lesion on visible skin Psych: Normal mood and affect Is PICC or central line present? Yes, it is still present. The line is still required. Medications: Reviewed. Labs: Reviewed: CBC: Recent Labs 04/29/21 0538 04/30/21 0541 05/01/21 0532 WBC 10.20 7.18 6.24 RBC 3.45* 3.65* 3.36* HGB 9.8* 10.1* 9.6* HCT 30.2* 32.9* 29.5* MCV 88 90 88 MCH 28.4 27.7 28.6 MCHC 32.5 30.7* 32.5 PLT 312 359 351 NEUTROABS 7.64 4.64 4.64 BMP: Recent Labs 04/29/21 0538 04/30/21 0542 05/01/21 0532 NA 137 138 137 K 4.7 4.8 4.8 CL 99 98 98 CO2 29 29 29 BUN 18 24 28* CREATININE 0.60 0.69 0.72 CALCIUM 9.3 9.4 9.1 Imaging: Reviewed. No new imaging. Assessment/Plan Assessment Lindsay Jean Baptiste is a 40 y.o. female with a PMHx significant for osteomyelitis status post right BKA, IVDU, opioid use disorder and chronic foot ulcers presents from [facility] for concerns for worsening right arm pain, swelling, and redness. She was found to have a deep wrist infection. Underwent washout and carpal tunnel release with Orthopedics on admission, with returns to OR for I&D and progressive closure on 04/27 and 04/30. Pt remains hemodynamically stable and afebrile. Wound remains partially open with Orthopedics planning further I&D and closure later this week. Ongoing coordination of care between Orthopedics, Infectious Disease who now have a PO antibiotic pain, and APS who continue to wean pain medications. Plan Sepsis secondary to right arm with deep space carpal tunnel infection: CT from outside hospital showed no abscess, but fluid within the flexor tendon sheath within the carpel tunnel. HIV neg, Hep B surface Ab positive, Hep A total Ab positive (IgM negative). Cannot pursue MR imaging, if indicated, dueto retained needle in left groin. - Ortho consulted, appreciate assistance in care - Purulent fluid collected in OR (04/23) during washout and carpal tunnel release, (+) GPC - OR 04/27, wound culture, no bacteria seen - OR 04/30, I&D and progressive closure - Plan further I&D and closure later this week per Ortho, will confer with ortho re: timing - NWB of RUE, aggressive elevation, maintain volar resting - ID consulted appreciate recs - Vanc [id number] - Continue ceftriaxone 2g Q24hrs until ready for discharge, then transition to cefpodoxime 200mg PO BID for total 4 week duration of abx (ending 05/21/21) - Pain regimen: APS now signed off - Ketamine gtt discontinued this morning - Dilaudid LAPIDARIST 0.4mg q10 min PRN, no basal rate - Tylenol 500 mg PO Q6hr - Continue PLUSH DRESSER gabapentin 600mg qD - Tizanidine increased to 8mg PO Q8hr PRN - Ibuprofen 400mg PO q6hr PRN - Continue PLUSH DRESSER 6mg total as Suboxone 2-0.5mg x 3 film SL daily - Monitor fever curve - Daily CBCs with diff Left Hallux and 2nd Toe Wound: Followed by podiatry at outside hospital. Ortho evaluated on admission and recommended dressing changes per patient home recs. - Dressing change q72hrs History of Raynaud's disease - Continue PLUSH DRESSER gabapentin ?? Opoid use disorder - Regularly gets Suboxone from [facility]. UDS at OSH positive for cocaine use. - Continue PLUSH DRESSER suboxone - APS consulted , appreciate recs, pain management as above -Bowel Regimen: Senna 2 tablets PO at bedtime in combination with Polyethylene glycol (PEG) 17 g PO every day. -Naloxone at D/C -Inpatient substance use treatment algorithm: - UDS samples PRN - Consult pharmacy for med review - Cover all IVs at all time - Substance use agreement signed ?? VTE Prophylaxis Ambulation and SCDs Code: Prior Discharge Plan Home after wound closure and weaning of analgesics Consults APS, Ortho, ID Pt discussed with Dr. Salinas. Christin Young MD 05/01/21 10:38 Family Medicine PGY3, Page #[phone] Associated attestation - Clark Salinas MD - 05/01/2021 1500 EST Attestation: I performed or was present during the joseph or critical portions of the visit and participated in the management of the patient on 05/01/2021. I agree with the findings and plan of care documented in the resident's/fellow's note. Clark Salinas MD 05/01/2021 15:00 Juan Schmitz MD - 05/01/2021 0658 EST Orthopaedic Daily Progress Note Diagnosis/Procedure: Right deep hand infection with acute carpal tunnel syndrome s/p: -Open carpal tunnel release and I&D of the hand on 04/23/[address] Bansal -I&D of right hand with progressive closure 04/27/[address] Bansal -I&D or right hand with progressive closure 04/30/[address] Cuevas Subjective: Doing okay today. Says hand is somewhat sore, but overall tolerable. No new paresthesias. Objective: BP 106/56 (BP Cuff Location: Left arm, BP Patient Position: Sitting) Pulse 75 Temp 36.5 ??C (97.7 ??F) (Oral) Resp 16 Ht 165.1 cm (65) Wt 54.4 kg (120 lb) SpO2 98% BMI 19.97 kg/m?? No acute distress Non-labored breathing Focused MSK: RUE: Splint in place with Zofia wrap without strikethrough. Dressings all intact. Sensation intact light touch over exposed fingers. Flex and extends all fingers. Brisk cap refill. Continued swelling over thedorsum of the hand and into the proximal phalanges. Forearm compartment soft and compressible. Labs: WBC/Hgb/Hct/Plts: 6.24/9.6/29.5/351 (05/01 531) Na/K/Cl/CO2: 137/4.8/98/29 (05/01 531) BUN/Cr/glu/ALT/AST/amyl/lip: 28/0.72/100/--/--/--/-- (05/01 531) Assessment: Lindsay Jean Baptiste is a 40 y.o. 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 Bansal for a deep infection as well as acute carpal tunnel syndrome and repeat I&D, with progressive wound closure on 04/27/[address] Bansal and again on 04/30/[address] Cuevas. ?? Plan: -Appreciate care per primary team -Weight Bearing: NWB RUE -Aggressive elevation RUE -Maintain splint to RUE -Multimodal pain control -Diet: Per primary -Antibiotics: Per ID -Continue local/PLUSH DRESSER management of left foot ulceration with outpatient follow-up with school janitor -Dispo: Pending. Will discuss repeat I&D timing and notify primary team once this is been established Juan Schmitz MD Orthopaedic Surgery, PGY2 Juan Schmitz MD - 04/30/2021 0839 EST Orthopaedic Daily Progress Note Diagnosis/Procedure: Right deep hand infection with acute carpal tunnel syndrome s/p: -Open carpal tunnel release and I&D of the hand on 04/23/[address] Bansal -I&D of right hand, drain placement with wound left open 04/27/21 Subjective: Doing okay this morning. Hopeful that this will be one of the last surgery she needs forthis issue on her hand. Denies new symptoms. Still has some numbness primarily in the right index finger, otherwise unchanged. Objective: BP 127/74 (BP Cuff Location: Left arm, BP Patient Position: Sitting) Pulse 75 Temp 36.9 ??C (98.4 ??F) (Oral) Resp 18 Ht 165.1 cm (65) Wt 54.4 kg (120 lb) SpO2 98% BMI 19.97 kg/m?? No acute distress Non-labored breathing Focused MSK: RUE: Dressings remain in place but partially removed. Moderate swelling over the dorsum of the hand into the proximal phalanges. Sensation intact in all exposed fingers and dorsum of the hand. Flexes and extends at all fingers. Labs: WBC/Hgb/Hct/Plts: 7.18/10.1/32.9/359 (04/30 540) Na/K/Cl/CO2: 138/4.8/98/29 (04/30 541) BUN/Cr/glu/ALT/AST/amyl/lip: 24/0.69/99/--/--/--/-- (04/30 541) Assessment: Lindsay Jean Baptiste is a 40 y.o. 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 Bansal for a deep infection as well as acute carpal tunnel syndrome and repeat I&D, with the wound left open on 04/27/[address] Bansal. She also has a chronic left dorsal hallux and second toe ulcer which is being managed by an outside hospital podiatry team. ?? Plan: -Appreciate care per primary team -Weight Bearing: NWB RUE -Aggressive elevation RUE -Maintain splint to RUE -Multimodal pain control -Diet: N.p.o. for operative invention -Antibiotics: Per ID -Continue local/PLUSH DRESSER management of left foot ulceration with outpatient follow-up with school janitor -Dispo: Pending Juan Schmitz MD Orthopaedic Surgery, PGY2 I am post call today and will be unable to answer questions about this patient. Please reach out to the orthopedic on-call resident with questions or concerns. Sydnie Chakraborty DO - 04/30/2021 0822 EST Family Medicine Progress Note Service Date: 04/30/2021 Admit Date: 04/22/2021 15:22 Reason for Admission: 40 y.o. female admitted with a chief complaint of right arm swelling and now with a principal diagnosis of a right arm cellulitis. 24hr Events: - NPO after midnight for OR today - APS decreased ketamine gtt Subjective/Objective Subjective Patient in OR, not available for interview or exam this AM (see ortho note) Review of Systems 10 pt ROS reviewed and negative unless otherwise stated in the HPI. Objective Vital Signs Temp: [36.9 ??C (98.4 ??F)-37.1 ??C (98.7 ??F)] , Heart Rate: [64 BPM-75 BPM] , Resp: [13-18] , BP: (120-130)/(73-92) , SpO2: [93 %-100 %] Physical Deferred Is PICC or central line present? Yes, it is still present. The line is still required. Medications: Reviewed. Labs: Reviewed: CBC: Recent Labs 04/28/21 0703 04/29/21 0538 04/30/21 0541 WBC 9.14 10.20 7.18 RBC 3.41* 3.45* 3.65* HGB 9.6* 9.8* 10.1* HCT 30.0* 30.2* 32.9* MCV 88 88 90 MCH 28.2 28.4 27.7 MCHC 32.0* 32.5 30.7* PLT 292 312 359 NEUTROABS 6.50 7.64 4.64 BMP: Recent Labs 04/28/21 0743 04/29/21 0538 04/30/21 0542 NA 139 137 138 K 4.6 4.7 4.8 CL 99 99 98 CO2 28 29 29 BUN 14 18 24 CREATININE 0.66 0.60 0.69 CALCIUM 8.9 9.3 9.4 Imaging: Reviewed. Assessment/Plan Assessment Lindsay Jean Baptiste is a 40 y.o. female with a PMHx significant for osteomyelitis status post right BKA, IVDU, opioid use disorder and chronic foot ulcers presents from [facility] for concerns for worsening right arm pain, swelling, and redness. She was found to have a deep wrist infection. Underwent washout and carpal tunnel release with Orthopedics on admission. Pt is hemodynamically stable and afebrile. Ongoing coordination of care between Orthopedics who is considering further surgical intervention, Infectious Disease who now had a PO antibiotic pain, and APS who continues to wean pain medications. Plan Sepsis secondary to right arm with deep space carpal tunnel infection: CT from outside hospital showed no abscess, but fluid within the flexor tendon sheath within the carpel tunnel. HIV neg, Hep B surface Ab positive, Hep A total Ab positive (IgM negative). Cannot pursue MR imaging, if indicated, dueto retained needle in left groin. - Ortho consulted, appreciate assistance in care - Purulent fluid collected in OR (04/23) during washout and carpal tunnel release, (+) [facility] - OR 04/27, wound culture, no bacteria seen - NWB of RUE, aggressive elevation, maintain volar resting - NPO at midnight for OR today for wound closure - ID consulted appreciate recs - Vanc D/C 04/24 - Continue Ceftriaxone 2g Q24hrs until ready for discharge, then transition to cefpodoxime 200mg POBID for total 4 week duration of abx (ending 05/21/21) - Pain regimen: APS consulted, following recs - Tylenol 500 mg PO Q6hr - Ketamine gtt, decreased to 5mg/hr - Continue PLUSH DRESSER gabapentin 600mg qD - Tizanidine 4mg PO Q8hr PRN - Ibuprofen 400mg PO q6hr PRN - Dilaudid LAPIDARIST 0.4mg q10 min PRN, no basal rate - Continue PLUSH DRESSER 6mg total as Suboxone 2-0.5mg x 3 film SL daily - Monitor fever curve - Daily CBCs with diff Left Hallux and 2nd Toe Wound: Followed by podiatry at outside hospital. Ortho evaluated on admission and recommended dressing changes per patient home recs. - Dressing change q72hrs History of Raynaud's disease - Continue PLUSH DRESSER gabapentin ?? Opoid use disorder - Regularly gets Sub[facility]one from [facility]. UDS at OSH positive for cocaine use. - Continue PLUSH DRESSER suboxone - APS consulted , appreciate recs, pain management as above -Bowel Regimen: Senna 2 tablets PO at bedtime in combination with Polyethylene glycol (PEG) 17 g PO every day. -Naloxone at D/C -Inpatient substance use treatment algorithm: - UDS samples PRN - Consult pharmacy for med review - Cover all IVs at all time - Substance use agreement signed ?? VTE Prophylaxis Ambulation and SCDs Code: Prior Discharge Plan Home or self care after wound closure later this week pending antibiotic requirements Consults APS, Ortho Pt discussed with Dr. Salinas. Sydnie Chakraborty DO, MPH Family Medicine PGY3, Page #[phone] 04/30/21, 11:19 Associated attestation - Clark Salinas MD - 04/30/2021 1344 EST Attestation: I performed or was present during the joseph or critical portions of the visit and participated in the management of the patient on 04/30/21. I agree with the findings and plan of care as documented in the resident's/fellow's note. Clark Salinas MD 04/30/2021 13:44 Juliano Damon - 04/30/2021 0813 EST ACUTE PAIN SERVICE INITIAL INPATIENT FOLLOW UP NOTE CHIEF COMPLAINT: right upper extremity pain SUBJECTIVE: Patient is doing well and has minimal pain. No problems with ketamine wean. Patient has some mild itching, no signs of rash or allergies. REVIEW OF SYSTEMS: Constitutional: Eye Mouth/Ent Cardiovascular: Yes No Yes No Yes No Yes No [] [x] Chills [] [] Blurry vision [] [] Dry mouth [] [] Chest Pain/Pressure [] [x] Fevers [] [] Double vision [] [] Increased salivation [] [] Palpitations [] [x] Hallucinations [] [] Photophobia [] [] [] [] [] [x] Nightmares [] [] Poor sleep Respiratory: Gastrointestinal: : [] [] Sedation Yes No Yes No Yes No [] [] [] [] Painful respirations [] [] Abdominal pain [] [] Difficulty urinating [] [x] Shortness of breath [] [x] Constipation [] [] Bladder spasms Neurological: [] [] [] [x] Diarrhea [] [] Yes No [] [] Nausea [] [] Headache Musculoskeletal: [x] [] Tolerating orals Integumentary: [] [x] right upper extremity numbness Yes No [] [] Vomiting Yes No [] [] Lower extremity weakness [] [] Backache [] [] [] [x] Itching [] [] Neck pain [] [] Muscle aches [] [] Rash [] [] Tinnitus [] [] Muscle spasms Psychiatric [] [] [] [] [] [] Weakness [] [] Anxious [] [] [] [] Depressed mood Hematologic: Allergic/Immunologic: [] [] Yes No Yes No Endocrine: [] [] Easy bleeding/bruising [] [] Hives [] [] Decreased libido [] [] Blood clots [] [] Immune deficiency [] [] Weight loss [] [] Medications: Current Facility-Administered Medications: ??? acetaminophen (TYLENOL) tablet 500 mg, 500 mg, oral, Q6H, Sarah Monet PA-C, 500 mg at 04/30/21 0535 ??? alteplase (CATHFLO ACTIVASE) injection 2 mg, 2 mg, intercatheter, PRN, Sydnie Chakraborty, ??? buprenorphine-naloxone (SUBOXONE) 2-0.5 mg sublingual film 3 Film, 3 Film, sublingual, DAILY, Sarah Monet PA-C, 3 Film at 04/29/21 0804 ??? cefTRIAXone (ROCEPHIN) 2,000 mg in sodium chloride (NS MBP) 50 mL IVPB, 2,000 mg, intravenous, Q24H, Sydnie Chakraborty, , 2,000 mg at 04/29/21 2334 ??? diphenhydrAMINE (BENADRYL) capsule 25 mg, 25 mg, oral, Q6H PRN, Joya Camarena MD, 25 mg at 04/30/21 0206 ??? gabapentin (NEURONTIN) capsule 600 mg, 600 mg, oral, DAILY (BREAKFAST), Sarah Monet PA-C, 600 mg at 04/29/21 0804 ??? HYDROmorphone 1 mg/ml (DILAUDID) LAPIDARIST syringe, 30 ml, , intravenous, CONTINUOUS, Leo Aguilar MD, New Bag at 04/29/212005 ??? ibuprofen (MOTRIN) tablet 400 mg, 400 mg, oral, Q6H PRN, Christin Young MD, 400 mg at ??? ketAMINE (KETALAR) 250 mg in NaCl 0.9% 25 mL syringe, 5 mg/hr, intravenous, CONTINUOUS, Juliano Damon, Last Rate: 1.5 mL/hr at 04/30/21741, 15 mg/hr at 04/30/21741 ??? lactated ringers (LR) infusion, , intravenous, CONTINUOUS, Sarah Monet PA-C, Last Rate: 75 mL/hr at 04/26/21 2318, Restarted at 04/27/21 0901 ??? lidocaine (PF) 10 mg/mL (1 %) injection 2 mg, 2 mg, intradermal, PRN, Sarah Monet PA-C ??? polyethylene glycol 3350 (MIRALAX) packet 17 g, 17 g, oral, DAILY, Sarah Monet PA-C, 17 g at 04/29/21 0804 ??? senna (SENOKOT) tablet 2 Tablet, 2 Tablet, oral, QHS, Sarah Monet PA-C, 2 Tablet at 04/29/212000 ??? tiZANidine (ZANAFLEX) tablet 4 mg, 4 mg, oral, Q8H PRN, Sarah Monet PA-C, 4 mg at 04/29/212000 Allergies: Allergies Allergen Reactions ??? Other - See Comments Pt allergic to soap in sheets, red raised rash on back PHYSICAL EXAM: BP 127/74 (BP Cuff Location: Left arm, BP Patient Position: Sitting) Pulse 75 Temp 36.9 ??C (98.4 ??F) (Oral) Resp 18 Ht 165.1 cm (65) Wt 54.4 kg (120 lb) SpO2 98% BMI 19.97 kg/m?? Constitutional: alert, oriented, tearful, and in severe discomfort Respiratory: unlabored breathing Musculoskeletal: RUE with post surgical dressing Neuro: moves RUE Psych: affect wnl LABORATORIES: Covid-19: Lab Results Component Value Date COVID-19 rt-PCR Result Negative 04/29/2021 COVID-19 rt-PCR Result NEGATIVE 05/13/2020 COVID-19 rt-PCR Result NEGATIVE 05/13/2020 CBC: Recent Labs 04/28/21 0703 04/29/21 0538 04/30/21 0541 WBC 9.14 10.20 7.18 RBC 3.41* 3.45* 3.65* HGB 9.6* 9.8* 10.1* HCT 30.0* 30.2* 32.9* MCV 88 88 90 MCH 28.2 28.4 27.7 MCHC 32.0* 32.5 30.7* PLT 292 312 359 NEUTROABS 6.50 7.64 4.64 BMP: Recent Labs 04/28/21 0743 04/29/21 0538 04/30/21 0542 NA 139 137 138 K 4.6 4.7 4.8 CL 99 99 98 CO2 28 29 29 BUN 14 18 24 CREATININE 0.66 0.60 0.69 CALCIUM 8.9 9.3 9.4 LFT: No results for input(s): TBIL, ALKPHOS, AST, ALT, LIPASE, AMYLASE in the last 72 hours. Cardiac Markers: No results for input(s): CK, MB, CKMBINDEX, TROPONINI in the last 72 hours. ASSESSMENT: This is a 40 y.o. female w/ PMH substance use disorder (IVDU, opioids, cocaine) on suboxone c/b peripheral vascular disease (right obturator bypass 2018 for infected pseudoaneurysm followed by right BKA 2019), hepatitis C, DVT, and depression s/p open carpal tunnel release (04/23)/ POD#3 for I+D for increased right hand swelling/redness/pain x 3d and POD#2 complex incision and drainage of RUE. Pain is well controlled today. Overall doing well, Pain well controlled 1. Pain chronicity: Acute 2. Pain type: Somatic nociceptive pain, Neuropathic pain and Inflammatory pain 3. Opioid Tolerance: Opioid tolerant with opioid misuse disorder 4. Pain intensity: Severe 5. Pain Trend: Stable 6. Opioid risk tool assessment: High risk of opioid misuse (score 8+) (Opioid Risk Tool Link) RECOMMENDATIONS: Brachial plexus block cannot be performed given risk for compartment syndrome. Non-Opioid Adjuncts ??? Acetaminophen: Continue reduced dose given history of hep C of 500 mg PO Q6H standing. ??? Decreased ketamine to 5 mg/hr ??? Continue gabapentin 600 mg PO daily ? ? Muscle Relaxant: Continue tizanidine 4 mg PO Q8H PRN (hold if systolic blood pressure < 100 mmHg or if the patient is sedated). Tizanidine is an [id number] like dexmedetomidine which may help with anxiety, sleep, muscle spasms, and/or pain. By its self, it does not suppress the respiratory drive. It may cause Qtc prolongation in combination with other medications (e.g. ciprofloxacin and methadone). Do not administer concomitantly with clonidine or dexmedetominidine or CYP inhibitors such as famotidine. Bradycardia and profound hypotension may be seen if combined with an ZOFIA inhibitor or ARB. ??? Continue ibuprofen 400 mg PO Q6H PRN. Change to scheduled if possible. Opioids: (Expected duration of opioid use for specific surgeries: [facility] Website) ??? Continue hydromorphone LAPIDARIST 0.4 mg every 10 mins No Basal rate 2.4 mg per hour limit ??? Pt's home dose daily 6mg Suboxone: as such continue Suboxone 2-0.5mg 3 film SL daily ??? Bowel Regimen: Senna 2 tablets PO at bedtime in combination with PEG or lactulose. Senna may cause abdominal cramping (Indication: prophylactic) ??? Polyethylene glycol (PEG) 17 g PO every day. ??? Naloxone: On discharge, please provide prescription for naloxone 1 mg intranasal x1 for respiratory depression for high risk patients (e.g. history of history of opioid or substance use disorder, > 50 morphine mg equivalents per day, contaminant benzodiazepine use, etc.) Juliano Damon MD Chronic Pain Fellow, PGY5 Associated attestation - Juarez Martinez MD - 05/01/2021 0740 EST Attending attestation: I saw and examined the patient with the pain fellow/resident. I agree with the findings and plan of care documented in this note. Juarez Martinez MD 04/22/2021 Vaishali Briseno - 04/29/2021 1351 EST Spoke with pt. She is in agreement with Brian DAVISA at [place] for dressing changes. will need to specify dressing changes at [facility]. SHe will need a ride home ([place]). SHe does use [facility] for transportat home and feels that they may supply transport home. CM following. Vaishali BrisenoRNCCM #[id number] ChuJuliano - 04/29/2021 0917 EST ACUTE PAIN SERVICE INITIAL INPATIENT FOLLOW UP NOTE CHIEF COMPLAINT: right upper extremity pain SUBJECTIVE: Patient is doing well and has minimal pain. She is asking to come off ketamine so that she can be discharged. Slept well overnight. REVIEW OF SYSTEMS: Constitutional: Eye Mouth/Ent Cardiovascular: Yes No Yes No Yes No Yes No [] [x] Chills [] [] Blurry vision [] [] Dry mouth [] [] Chest Pain/Pressure [] [x] Fevers [] [] Double vision [] [] Increased salivation [] [] Palpitations [] [x] Hallucinations [] [] Photophobia [] [] [] [] [] [x] Nightmares [] [] Poor sleep Respiratory: Gastrointestinal: : [] [] Sedation Yes No Yes No Yes No [] [] [] [] Painful respirations [] [] Abdominal pain [] [] Difficulty urinating [] [x] Shortness of breath [] [x] Constipation [] [] Bladder spasms Neurological: [] [] [] [x] Diarrhea [] [] Yes No [] [] Nausea [] [] Headache Musculoskeletal: [x] [] Tolerating orals Integumentary: [] [x] right upper extremity numbness Yes No [] [] Vomiting Yes No [] [] Lower extremity weakness [] [] Backache [] [] [] [x] Itching [] [] Neck pain [] [] Muscle aches [] [] Rash [] [] Tinnitus [] [] Muscle spasms Psychiatric [] [] [] [] [] [] Weakness [] [] Anxious [] [] [] [] Depressed mood Hematologic: Allergic/Immunologic: [] [] Yes No Yes No Endocrine: [] [] Easy bleeding/bruising [] [] Hives [] [] Decreased libido [] [] Blood clots [] [] Immune deficiency [] [] Weight loss [] [] Medications: Current Facility-Administered Medications: ??? acetaminophen (TYLENOL) tablet 500 mg, 500 mg, oral, Q6H, Sarah Monet PA-C, 500 mg at 04/29/21 0531 ??? alteplase (CATHFLO ACTIVASE) injection 2 mg, 2 mg, intercatheter, PRN, Sydnie Chakraborty, DO ??? buprenorphine-naloxone (SUBOXONE) 2-0.5 mg sublingual film 3 Film, 3 Film, sublingual, DAILY, Sarah Monet PA-C, 3 Film at 04/29/21 0804 ??? cefTRIAXone (ROCEPHIN) 2,000 mg in sodium chloride (NS MBP) 50 mL IVPB, 2,000 mg, intravenous, Q24H, Palmer, Sydnie, DO, 2,000 mg at 04/28/21 2316 ??? gabapentin (NEURONTIN) capsule 600 mg, 600 mg, oral, DAILY (BREAKFAST), Sarah Monet PA-C, 600 mg at 04/29/21 0804 ??? HYDROmorphone 1 mg/ml (DILAUDID) LAPIDARIST syringe, 30 ml, , intravenous, CONTINUOUS, Leo Aguilar MD, New Bag at 04/28/211924 ??? ibuprofen (MOTRIN) tablet 400 mg, 400 mg, oral, Q6H PRN, YoungChristin MD, 400 mg at ??? ketAMINE (KETALAR) 250 mg in NaCl 0.9% 25 mL syringe, 25 mg/hr, intravenous, CONTINUOUS, Sarah Monet PA-C, Last Rate: 2.5 mL/hr at 04/29/21 0807, 25 mg/hr at 04/29/21 0807 ??? lactated ringers (LR) infusion, , intravenous, CONTINUOUS, Sarah Monet PA-C, Last Rate: 75 mL/hr at 04/26/21 2318, Restarted at 04/27/21 0901 ??? lidocaine (PF) 10 mg/mL (1 %) injection 2 mg, 2 mg, intradermal, PRN, Sarah Monet PA-C ??? polyethylene glycol 3350 (MIRALAX) packet 17 g, 17 g, oral, DAILY, Sarah Monet PA-C, 17 g at 04/29/21 0804 ??? senna (SENOKOT) tablet 2 Tablet, 2 Tablet, oral, QHS, Sarah Monet PA-C, 2 Tablet at 04/28/212025 ??? tiZANidine (ZANAFLEX) tablet 4 mg, 4 mg, oral, Q8H PRN, Sarah Monet PA-C, 4 mg at 04/28/21 2319 Allergies: Allergies Allergen Reactions ??? Other - See Comments Pt allergic to soap in sheets, red raised rash on back PHYSICAL EXAM: BP (!) 137/98 (BP Cuff Location: Right arm, BP Patient Position: Semi fowlers) Comment: JARRED Segal notified. Pulse 70 Temp 37.1 ??C (98.7 ??F) (Oral) Resp 18 Ht 165.1 cm (65) Wt 54.4 kg (120lb) SpO2 98% BMI 19.97 kg/m?? Constitutional: alert, oriented, tearful, and in severe discomfort Respiratory: unlabored breathing Musculoskeletal: RUE with post surgical dressing Neuro: moves RUE Psych: affect wnl LABORATORIES: Covid-19: Lab Results Component Value Date COVID-19 rt-PCR Result Negative 04/26/2021 COVID-19 rt-PCR Result NEGATIVE 05/13/2020 COVID-19 rt-PCR Result NEGATIVE 05/13/2020 CBC: Recent Labs 04/27/21 0530 04/28/21 0703 04/29/21 0538 WBC 6.29 9.14 10.20 RBC 3.43* 3.41* 3.45* HGB 9.5* 9.6* 9.8* HCT 30.3* 30.0* 30.2* MCV 88 88 88 MCH 27.7 28.2 28.4 MCHC 31.4* 32.0* 32.5 PLT 257 292 312 NEUTROABS 4.05 6.50 7.64 BMP: Recent Labs 04/27/21 0530 04/28/21 0743 04/29/21 0538 NA 138 139 137 K 4.3 4.6 4.7 CL 100 99 99 CO2 29 28 29 BUN 17 14 18 CREATININE 0.63 0.66 0.60 CALCIUM 8.7 8.9 9.3 LFT: No results for input(s): TBIL, ALKPHOS, AST, ALT, LIPASE, AMYLASE in the last 72 hours. Cardiac Markers: No results for input(s): CK, MB, CKMBINDEX, TROPONINI in the last 72 hours. ASSESSMENT: This is a 40 y.o. female w/ PMH substance use disorder (IVDU, opioids, cocaine) on suboxone c/b peripheral vascular disease (right obturator bypass 2018 for infected pseudoaneurysm followed by right BKA 2019), hepatitis C, DVT, and depression now POD# 6 open carpal tunnel release (04/23)/ POD#2 for I+D for increased right hand swelling/redness/pain x 3d and POD#1 complex incision and drainage of RUE.Pain is well controlled today. Overall doing well, Pain well controlled 1. Pain chronicity: Acute 2. Pain type: Somatic nociceptive pain, Neuropathic pain and Inflammatory pain 3. Opioid Tolerance: Opioid tolerant with opioid misuse disorder 4. Pain intensity: Severe 5. Pain Trend: Stable 6. Opioid risk tool assessment: High risk of opioid misuse (score 8+) (Opioid Risk Tool Link) RECOMMENDATIONS: Brachial plexus block cannot be performed given risk for compartment syndrome. Non-Opioid Adjuncts ??? Acetaminophen: Continue reduced dose given history of hep C to 500 mg PO Q6H standing. ??? Decreased ketamine to 15 mg/hr ??? Continue gabapentin 600 mg PO daily ? ? Muscle Relaxant: Continue tizanidine 4 mg PO Q8H PRN (hold if systolic blood pressure < 100 mmHg or if the patient is sedated). Tizanidine is an emrfj-0-jiepehes like dexmedetomidine which may help with anxiety, sleep, muscle spasms, and/or pain. By its self, it does not suppress the respiratory drive. It may cause Qtc prolongation in combination with other medications (e.g. ciprofloxacin and methadone). Do not administer concomitantly with clonidine or dexmedetominidine or CYP inhibitors such as famotidine. Bradycardia and profound hypotension may be seen if combined with an ZOFIA inhibitor or ARB. ??? Continue ibuprofen 400 mg PO Q6H PRN. Change to scheduled if possible. Opioids: (Expected duration of opioid use for specific surgeries: [facility] Website) ??? Continue hydromorphone LAPIDARIST 0.4 mg every 10 mins No Basal rate 2.4 mg per hour limit ??? Pt's home dose daily 6mg Suboxone: as such continue Suboxone 2-0.5mg 3 film SL daily ??? Bowel Regimen: Senna 2 tablets PO at bedtime in combination with PEG or lactulose. Senna may cause abdominal cramping (Indication: prophylactic) ??? Polyethylene glycol (PEG) 17 g PO every day. ??? Naloxone: On discharge, please provide prescription for naloxone 1 mg intranasal x1 for respiratory depression for high risk patients (e.g. history of history of opioid or substance use disorder, > 50 morphine mg equivalents per day, contaminant benzodiazepine use, etc.) Juliano Damon MD Chronic Pain Fellow, PGY5 Associated attestation - Juarez Martinez MD - 04/30/2021 0734 EST Attending attestation: I saw and examined the patient with the pain fellow/resident. I agree with the findings and plan of care documented in this note. Juarez Martinez MD 04/22/2021 Juan Schmitz MD - 04/29/2021 0734 EST Orthopaedic Daily Progress Note Diagnosis/Procedure: Right deep hand infection with acute carpal tunnel syndrome s/p: -Open carpal tunnel release and I&D of the hand on 04/23/[address] Bansal -I&D of right hand, drain placement with wound left open 04/27/21 Subjective: Doing okay this morning. Hand is little bit sore, but continues to improve. Denies tingling, but does have some numbness primarily in the right index finger. We discussed elevating the arm to reduce swelling and this may also help with any paresthesias that are present as well as soft tissue rest. Objective: BP (!) 137/98 (BP Cuff Location: Right arm, BP Patient Position: Semi fowlers) Comment: JARRED Segal notified. Pulse 70 Temp 37.1 ??C (98.7 ??F) (Oral) Resp 18 Ht 165.1 cm (65) Wt 54.4 kg (120lb) SpO2 98% BMI 19.97 kg/m?? No acute distress Non-labored breathing Focused MSK: RUE: Dressings in place, though seem to be partially removed/loosened. Still intact. Sensation intact in exposed fingers and dorsum of the hand. Flexes and extends at all fingers including at the thumb. Thumb flexion and opposition is limited by casting material. Fingers warm and well-perfused with brisk capillary refill. There is fairly significant swelling of the dorsum of the hand into the more proximal aspect of the fingers. Labs: WBC/Hgb/Hct/Plts: 10.20/9.8/30.2/312 (04/29 538) Na/K/Cl/CO2: 137/4.7/99/29 (04/29 538) BUN/Cr/glu/ALT/AST/amyl/lip: 18/0.60/99/--/--/--/-- (04/29 538) Assessment: Lindsay Jean Baptiste is a 40 y.o. 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 Bansal for a deep infection as well as acute carpal tunnel syndrome and repeat I&D with wound left open on 04/27/[address] Bansal. She also has a chronic left dorsal hallux and second toe ulcer which is being managed by an outside hospital podiatry team. ?? Plan: -Appreciate care per primary team -Weight Bearing: NWB RUE -Aggressive elevation RUE -Maintain splint to RUE -Multimodal pain control -Diet: NPO after midnight -Antibiotics: Per ID -continuing ceftriaxone. 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 -Possible take back to OR on 1/1/22 for wound I&D and potential closure Juan Schmitz MD Orthopaedic Surgery, PGY2 Claude Marie MD - 04/29/2021 0705 EST [facility] Medicine Progress Note Service Date: 04/29/2021 Admit Date: 04/22/2021 15:22 Reason for Admission: 40 y.o. female admitted with a chief complaint of right arm swelling and now with a principal diagnosis of a right arm cellulitis. 24hr Events: NAEO Subjective/Objective Subjective Feeling well this morning. More feeling and movement in her right hand. Otherwise feeling well. Continue to be eager to return home. Review of Systems 10 pt ROS reviewed and negative unless otherwise stated in the HPI. Objective Vital Signs Temp: [36.5 ??C (97.7 ??F)-37.1 ??C (98.7 ??F)] , Heart Rate: [72 BPM-75 BPM] , Resp: [16-18] , BP: (117-141)/(59-98) , SpO2: [97 %-100 %] Physical General: sitting up comfortably in a hospital bed HEENT: Normocephalic, atraumatic, normal sclera & conjunctivae Pulm: normal respiratory rate and effort Cardio: RRR Abdomen: Soft, non-tender, non-distended Extremities: No edema or cyanosis, right arm wrapped/splinted/elevated, left forefoot/toes wrapped with dressing c/d/i, R BKA Neuro: no gross deficits Skin: No jaundice, discoloration, no rashes or lesion on visible skin Psych: Normal mood and affect Is PICC or central line present? Yes, it is still present. The line is still required. Medications: Reviewed. Labs: Reviewed: CBC: Recent Labs 04/27/21 0530 04/28/21 0703 04/29/21 0538 WBC 6.29 9.14 10.20 RBC 3.43* 3.41* 3.45* HGB 9.5* 9.6* 9.8* HCT 30.3* 30.0* 30.2* MCV 88 88 88 MCH 27.7 28.2 28.4 MCHC 31.4* 32.0* 32.5 PLT 257 292 312 NEUTROABS 4.05 6.50 7.64 BMP: Recent Labs 04/27/21 0530 04/28/21 0743 04/29/21 0538 NA 138 139 137 K 4.3 4.6 4.7 CL 100 99 99 CO2 29 28 29 BUN 17 14 18 CREATININE 0.63 0.66 0.60 CALCIUM 8.7 8.9 9.3 Imaging: Reviewed. Assessment/Plan Assessment Lindsay Jean Baptiste is a 40 y.o. female with a PMHx significant for osteomyelitis status post right BKA, IVDU, opioid use disorder and chronic foot ulcers presents from [facility] for concerns for worsening right arm pain, swelling, and redness. She was found to have a deep wrist infection. Underwent washout and carpal tunnel release with Orthopedics on admission. Pt is hemodynamically stable and afebrile. Ongoing coordination of care between Orthopedics who is considering further surgical intervention, Infectious Disease who now had a PO antibiotic pain, and APS who continues to wean pain medications. Plan Sepsis secondary to right arm with deep space carpal tunnel infection: CT from outside hospital showed no abscess, but fluid within the flexor tendon sheath within the carpel tunnel. - Ortho consulted, appreciate assistance in care - Purulent fluid collected in OR (04/23) during washout and carpal tunnel release, (+) GPC - OR 04/27, falguni drain placed - Keep clean and dry, NWB, aggressive elevation, continue splint - 04/27 wound culture, no bacteria seen - NPO at midnight for possible OR on 04/30/21 - ID consulted appreciate recs - Vanc D/C 04/24 - Continue Ceftriaxone 2g Q24hrs until ready for discharge, then transition to cefpodoxime 200mg POBID for total 4 week duration of abx (ending 05/21/21) - Pain regimen: APS consulted, following recs - HIV neg, Hep B surface Ab positive, Hep A total Ab positive (IgM negative) - Monitor fever curve - Daily CBCs with diff - Cannot pursue MR imaging, if indicated, due to retained needle in left groin. Left Hallux and 2nd Toe Wound: Followed by podiatry at outside hospital. Ortho evaluated on admission and recommended dressing changes per patient home recs. - Dressing change orders placed History of Raynaud's disease - Continue PLUSH DRESSER gabapentin ?? Opoid use disorder - Regularly gets Suboxone from [facility]. UDS at OSH positive for cocaine use. - continue PLUSH DRESSER suboxone APS consulted , appreciate recs, pain management as above -Bowel Regimen: Senna 2 tablets PO at bedtime in combination with Polyethylene glycol (PEG) 17 g PO every day. -Naloxone at D/C -Inpatient substance use treatment algorithm: - UDS samples PRN - Consult pharmacy for med review - Cover all IVs at all time - Substance use agreement signed ?? VTE Prophylaxis Ambulation and SCDs Code: Prior Discharge Plan Home or self care after wound closure later this week pending antibiotic requirements Consults APS, Ortho Pt discussed with Dr. Salinas. Claude James MD Family Medicine, PGY-3 04/29/21 11:33 #[id number] Associated attestation - Clark Salinas MD - 04/29/2021 1904 EST Attestation: I performed or was present during the joseph or critical portions of the visit and participated in the management of the patient on 04/29/2021. I agree with the findings and plan of care documented in the resident's/fellow's note. Clark Salinas MD 04/29/2021 19:03 Hero Liu - 04/28/2021 1212 EST Nutrition Assessment Note: Reassessment Patient Name: Lindsay Jean Baptiste Admission Date: 04/22/2021 Admission Dx: Right arm cellulitis Reason for Visit: Follow Up BACKGROUND DATA Clinical Course Since Last RD Visit: Last RD visit: 04/24 Subjective: Pt reports a good appetite and is eating 75-100% of all meals. Having regular BMs. Current Nutrition Orders: Regular Diet Physical Findings: Digestive Systems: Last BM 04/27 Skin: incision wrist, toe wound Edema: +2 non-pitting RLE, trace LLE Extremities: R BKA Anthropometrics: Height: 165.1 cm (65) Wt Readings from Last 6 Encounters: 04/23/21 54.4 kg (120 lb) 05/28/18 54.4 kg (120 lb) Weight Change: stable Pertinent Medications: Current Facility-Administered Medications Medication Route Frequency ??? acetaminophen (TYLENOL) tablet 500 mg oral Q6H ??? buprenorphine-naloxone (SUBOXONE) 2-0.5 mg sublingual film 3 Film sublingual DAILY ??? cefTRIAXone (ROCEPHIN) 2,000 mg in sodium chloride (NS MBP) 50 mL IVPB intravenous Q24H ??? gabapentin (NEURONTIN) capsule 600 mg oral DAILY (BREAKFAST) ??? HYDROmorphone 1 mg/ml (DILAUDID) LAPIDARIST syringe, 30 ml intravenous CONTINUOUS ??? ibuprofen (MOTRIN) tablet 400 mg oral Q6H PRN ??? ketAMINE (KETALAR) 250 mg in NaCl 0.9% 25 mL syringe intravenous CONTINUOUS ??? lactated ringers (LR) infusion intravenous CONTINUOUS ??? lidocaine (PF) 10 mg/mL (1 %) injection 2 mg intradermal PRN ??? polyethylene glycol 3350 (MIRALAX) packet 17 g oral DAILY ??? senna (SENOKOT) tablet 2 Tablet oral QHS ??? tiZANidine (ZANAFLEX) tablet 4 mg oral Q8H PRN Pertinent Labs: Lab Results Component Value Date/Time NA 139 04/28/2021 07:43 K 4.6 04/28/2021 07:43 CO2 28 04/28/2021 07:43 CL 99 04/28/2021 07:43 BUN 14 04/28/2021 07:43 CREATININE 0.66 04/28/2021 07:43 CALCIUM 8.9 04/28/2021 07:43 PHOS 3.4 06/29/2017 13:17 MG 1.8 04/23/2021 06:50 Estimated Nutrition Intake: 100% of 1 recorded meal on 04/23 ASSESSMENT: Pt with a good appetite and PO intake. Continue regular diet and encourage PO intake as needed. Recommend MVM to help meet micronutrient needs while healing. Labs appear to be wnl. Pt did not have any questions or concerns at this time. Nutrition Risk Level: Moderate (2) MEDICAL NUTRITION THERAPY - UPDATED PLAN 1. Continue regular diet as ordered - Encourage PO intake as needed 2. Add MVM daily 3. Monitor: PO intake, labs, skin, wgt, BMs [address], CD (Call PAS or use [employer] to page RD covering this unit) Leo Pena MD - 04/28/2021 0814 EST ACUTE PAIN SERVICE INITIAL INPATIENT FOLLOW UP NOTE CHIEF COMPLAINT: right upper extremity pain SUBJECTIVE: Pain well controlled with hydromorphone and ketamine. 8/10 at worst. 5-6/10 at best. Also has pain in elbow which is nerve pain. REVIEW OF SYSTEMS: Constitutional: Eye Mouth/Ent Cardiovascular: Yes No Yes No Yes No Yes No [] [x] Chills [] [] Blurry vision [] [] Dry mouth [] [] Chest Pain/Pressure [] [x] Fevers [] [] Double vision [] [] Increased salivation [] [] Palpitations [] [x] Hallucinations [] [] Photophobia [] [] [] [] [] [x] Nightmares [] [] Poor sleep Respiratory: Gastrointestinal: : [] [] Sedation Yes No Yes No Yes No [] [] [] [] Painful respirations [] [] Abdominal pain [] [] Difficulty urinating [] [x] Shortness of breath [] [x] Constipation [] [] Bladder spasms Neurological: [] [] [] [x] Diarrhea [] [] Yes No [] [] Nausea [] [] Headache Musculoskeletal: [x] [] Tolerating orals Integumentary: [x] [] right upper extremity numbness Yes No [] [] Vomiting Yes No [] [] Lower extremity weakness [] [] Backache [] [] [] [x] Itching [] [] Neck pain [] [] Muscle aches [] [] Rash [] [] Tinnitus [] [] Muscle spasms Psychiatric [] [] [] [] [] [] Weakness [] [] Anxious [] [] [] [] Depressed mood Hematologic: Allergic/Immunologic: [] [] Yes No Yes No Endocrine: [] [] Easy bleeding/bruising [] [] Hives [] [] Decreased libido [] [] Blood clots [] [] Immune deficiency [] [] Weight loss [] [] Medications: Current Facility-Administered Medications: ??? acetaminophen (TYLENOL) tablet 500 mg, 500 mg, oral, Q6H, Sarah Monet PA-C, 500 mg at 04/28/21 0635 ??? buprenorphine-naloxone (SUBOXONE) 2-0.5 mg sublingual film 3 Film, 3 Film, sublingual, DAILY, Sarah Monet PA-C, 3 Film at 04/28/21 0800 ??? cefTRIAXone (ROCEPHIN) 2,000 mg in sodium chloride (NS MBP) 50 mL IVPB, 2,000 mg, intravenous, Q24H, Sarah Monet PA-C, 2,000 mg at 04/27/21 2302 ??? gabapentin (NEURONTIN) capsule 600 mg, 600 mg, oral, DAILY (BREAKFAST), Sarah Monet PA-C, 600 mg at 04/28/21 0800 ??? HYDROmorphone (PF) (DILAUDID) 0.5 mg/0.5 mL syringe, , , , ??? HYDROmorphone 1 mg/ml (DILAUDID) LAPIDARIST syringe, 30 ml, , intravenous, CONTINUOUS, Leo Aguilar MD, New Bag at 04/28/21 0228 ??? ibuprofen (MOTRIN) tablet 400 mg, 400 mg, oral, Q6H PRN, Christin Young MD, 400 mg at 228 ??? ketAMINE (KETALAR) 250 mg in NaCl 0.9% 25 mL syringe, 25 mg/hr, intravenous, CONTINUOUS, Sarah Monet PA-C, Last Rate: 2.5 mL/hr at 04/28/21 0635, 25 mg/hr at 04/28/21 0635 ??? lactated ringers (LR) infusion, , intravenous, CONTINUOUS, Sarah Monet PA-C, Last Rate: 75 mL/hr at 04/26/21 2318, Restarted at 04/27/21 0901 ??? lidocaine (PF) 10 mg/mL (1 %) injection 2 mg, 2 mg, intradermal, PRN, Sarah Monet PA-C ??? polyethylene glycol 3350 (MIRALAX) packet 17 g, 17 g, oral, DAILY, Sarah Monet PA-C, 17 g at 04/28/21 0800 ??? senna (SENOKOT) tablet 2 Tablet, 2 Tablet, oral, QHS, Sarah Monet PA-C, 2 Tablet at 04/27/212043 ??? tiZANidine (ZANAFLEX) tablet 4 mg, 4 mg, oral, Q8H PRN, Sarah Monet PA-C, 4 mg at 04/28/218 Allergies: Allergies Allergen Reactions ??? Other - See Comments Pt allergic to soap in sheets, red raised rash on back PHYSICAL EXAM: BP 136/64 (BP Cuff Location: Left arm, BP Patient Position: Semi fowlers) Pulse 77 Temp 36.5 ??C(97.7 ??F) (Oral) Resp 20 Ht 165.1 cm (65) Wt 54.4 kg (120 lb) SpO2 99% BMI 19.97 kg/m?? Constitutional: alert, oriented, tearful, and in severe discomfort Respiratory: unlabored breathing Musculoskeletal: RUE with post surgical dressing Neuro: moves RUE Psych: affect wnl LABORATORIES: Covid-19: Lab Results Component Value Date COVID-19 rt-PCR Result Negative 04/26/2021 COVID-19 rt-PCR Result NEGATIVE 05/13/2020 COVID-19 rt-PCR Result NEGATIVE 05/13/2020 CBC: Recent Labs 04/26/21 0618 04/27/21 0530 04/28/21 0703 WBC 7.22 6.29 9.14 RBC 3.34* 3.43* 3.41* HGB 9.4* 9.5* 9.6* HCT 28.9* 30.3* 30.0* MCV 87 88 88 MCH 28.1 27.7 28.2 MCHC 32.5 31.4* 32.0* PLT 233 257 292 NEUTROABS 5.15 4.05 6.50 BMP: Recent Labs 04/26/21 0619 04/27/21 0530 NA 139 138 K 4.0 4.3 CL 102 100 CO2 32 29 BUN 16 17 CREATININE 0.67 0.63 CALCIUM 8.6 8.7 LFT: No results for input(s): TBIL, ALKPHOS, AST, ALT, LIPASE, AMYLASE in the last 72 hours. Cardiac Markers: No results for input(s): CK, MB, CKMBINDEX, TROPONINI in the last 72 hours. ASSESSMENT: This is a 40 y.o. 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 Overall doing well, Pain well controlled 1. Pain chronicity: Acute 2. Pain type: Somatic nociceptive pain, Neuropathic pain and Inflammatory pain 3. Opioid Tolerance: Opioid tolerant with opioid misuse disorder 4. Pain intensity: Severe 5. Pain Trend: Stable 6. Opioid risk tool assessment: High risk of opioid misuse (score 8+) (Opioid Risk Tool Link) RECOMMENDATIONS: Brachial plexus block cannot be performed given risk for compartment syndrome. Non-Opioid Adjuncts ??? Acetaminophen: Continue reduced dose given history of hep C to 500 mg PO Q6H standing. ??? Continue ketamine and increase to 25 mg/hr ??? Continue gabapentin 600 mg PO daily ? ? Muscle Relaxant: Continue tizanidine 4 mg PO Q8H PRN (hold if systolic blood pressure < 100 mmHg or if the patient is sedated). Tizanidine is an [id number]-[id number] like dexmedetomidine which may help with anxiety, sleep, muscle spasms, and/or pain. By its self, it does not suppress the respiratory drive. It may cause Qtc prolongation in combination with other medications (e.g. ciprofloxacin and methadone). Do not administer concomitantly with clonidine or dexmedetominidine or CYP inhibitors such as famotidine. Bradycardia and profound hypotension may be seen if combined with an ZOFIA inhibitor or ARB. ??? Continue ibuprofen 400 mg PO Q6H PRN. Change to scheduled if possible. Opioids: (Expected duration of opioid use for specific surgeries: [facility]) ??? Continue hydromorphone LAPIDARIST 0.4 mg every 10 mins No Basal rate 2.4 mg per hour limit ??? Pt's home dose daily 6mg Suboxone: as such continue Suboxone 2-0.5mg 3 film SL daily ??? Bowel Regimen: Senna 2 tablets PO at bedtime in combination with PEG or lactulose. Senna may cause abdominal cramping (Indication: prophylactic) ??? Polyethylene glycol (PEG) 17 g PO every day. ??? Naloxone: On discharge, please provide prescription for naloxone 1 mg intranasal x1 for respiratory depression for high risk patients (e.g. history of history of opioid or substance use disorder, > 50 morphine mg equivalents per day, contaminant benzodiazepine use, etc.) The patient easily transitioned off of ketamine and LAPIDARIST prior to surgery on 04/27/21. Will expect she will be able to transition easily again. Thank you for including the Acute Pain Service in care of this patient. Please contact us (pager #[phone]) with any questions or concerns. Patient seen with Arnold Arredondo MD (Attending) LEO AGUILAR MD Anesthesiology, PGY2 Juan Alonzo MD - 04/28/2021 0810 EST Orthopaedic Daily Progress Note Diagnosis/Procedure: Right deep hand infection with acute carpal tunnel syndrome s/p: -Open carpal tunnel release and I&D of the hand on 04/23/[address] Bansal -I&D of right hand, drain placement with wound left open on 04/27/21 Subjective: Doing okay this morning. Was under the impression that she may be going home today. Numbness primarily in the right index which is unchanged. Feeling somewhat better compared to prior to the OR. Objective: BP 136/64 (BP Cuff Location: Left arm, BP Patient Position: Semi fowlers) Pulse 77 Temp 36.5 ??C(97.7 ??F) (Oral) Resp 20 Ht 165.1 cm (65) Wt 54.4 kg (120 lb) SpO2 99% BMI 19.97 kg/m?? No acute distress Non-labored breathing Focused MSK: RUE: Dressings in place without strike through. Sensation intact over exposed fingers. Flexing and extending at exposed fingers. Brisk capillary refill. No significant discomfort with passive ROM of the fingers. Labs: WBC/Hgb/Hct/Plts: 9.14/9.6/30.0/292 (04/28 703) Na/K/Cl/CO2: 138/4.3/100/29 (04/27 530) BUN/Cr/glu/ALT/AST/amyl/lip: 17/0.63/104/--/--/--/-- (04/27 530) Assessment: Lindsay Jean Baptiste is a 40 y.o. 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 Bansal for a deep infection as well as acute carpal tunnel syndrome and repeat I&D on 04/27/[address] Bansal. She also has a chronic left dorsal hallux and second toeulcer which is being managed by an outside hospital podiatry team. ?? Plan: -Appreciate care per primary team -Weight Bearing: NWB RUE -Aggressive elevation RUE -Maintain splint to RUE -Multimodal pain control -Diet: Per primary -Antibiotics: Per ID -continuing ceftriaxone. 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 Please reach out to the orthopedic consult resident with questions or concerns. Sydnie Cohen DO - 04/28/2021 0718 EST Family Medicine Progress Note Service Date: 04/28/2021 Admit Date: 04/22/2021 15:22 Reason for Admission: 40 y.o. female admitted with a chief complaint of right arm swelling and now with a principal diagnosis of a right arm cellulitis. 24hr Events: - OR with ortho yesterday for wound debridement, culture collected Subjective/Objective Subjective Reports some right arm pain this morning and tingling up to the elbow. Left foot feels fine. Otherwise denies chest pain, shortness of breath, abdominal pain, n/v/d. Review of Systems Denies fever, chills, chest pain, abdominal pain, nausea, or vomiting. Objective Vital Signs Temp: [36.2 ??C (97.2 ??F)-37.2 ??C (99 ??F)] , Heart Rate: [75 BPM-95 BPM] , Resp: [11-25] , BP: (122-172)/(63-141) , SpO2: [96 %-100 %] Physical General: Resting comfortably, cooperative, interactive, conversant HEENT: Normocephalic, atraumatic, normal sclera & conjunctivae Pulm: CTAB, no wheeze or crackles appreciated Cardio: RRR, no murmurs appreciated Abdomen: Soft, non-tender, non-distended Extremities: No edema or cyanosis, right arm wrapped/splinted/elevated, left forefoot/toes wrapped with dressing c/d/i Neuro: No dysarthria or facial droop, moving all 4 extremities Skin: No jaundice, discoloration, no rashes or lesion on visible skin Psych: Normal mood and affect Is PICC or central line present? Yes, it is still present. The line is still required. Medications: Reviewed. Labs: Reviewed: CBC: Recent Labs 04/26/2161704/27/21 0530 WBC 7.22 6.29 RBC 3.34* 3.43* HGB 9.4* 9.5* HCT 28.9* 30.3* MCV 87 88 MCH 28.1 27.7 MCHC 32.5 31.4* PLT 233 257 NEUTROABS 5.15 4.05 BMP: Recent Labs 04/26/21 0619 04/27/21 0530 NA 139 138 K 4.0 4.3 CL 102 100 CO2 32 29 BUN 16 17 CREATININE 0.67 0.63 CALCIUM 8.6 8.7 Imaging: Reviewed. Assessment/Plan Assessment Lindsay Jean Baptiste is a 40 y.o. female with a PMHx significant for osteomyelitis status post right BKA, IVDU, opioid use disorder and chronic foot ulcers presents from [facility] for concerns for worsening right arm pain, swelling, and redness. She was found to have a deep wrist infection. Underwent washout and carpal tunnel release with Orthopedics on admission. Pt is hemodynamically stable and afebrile. Remains admitted for IV antibiotic therapy and wound management. Plan for OR today, hopefully, for wound closure. Plan Sepsis secondary to right arm with deep space carpal tunnel infection: CT from outside hospital showed no abscess, but fluid within the flexor tendon sheath within the carpel tunnel. - Ortho consulted, appreciate assistance in care - Purulent fluid collected in OR (04/23) during washout and carpal tunnel release, (+) GPC - OR 04/27, falguni drain placed - Keep clean and dry, NWB, aggressive elevation, continue splint - 04/27 wound culture, no bacteria seen - ID consulted appreciate recs - Vanc D/C 04/24 - Continue Ceftriaxone 2g Q24hrs until ready for discharge, then transition to cefpodoxime 200mg POBID for total 4 week duration of abx (ending 05/21/21) - Pain regimen: APS consulted, following recs - Tylenol 500 mg PO Q6hr - Ketamine gtt (manged by APS) - Continue PLUSH DRESSER gabapentin 600mg qD - Tizanidine 4mg PO Q8hr PRN - Ibuprofen 400mg PO q6hr PRN - Dilaudid LAPIDARIST 0.4mg q10 min PRN, no basal rate - Continue PLUSH DRESSER 6mg total as Suboxone 2-0.5mg x 3 film SL daily - Follow-up OSH blood clxs -Called and left message 04/25 (negative BC at [facility] to date suggesting that this may not be related to a heart valve infection)- per ID note - HIV neg, Hep B surface Ab positive, Hep A total Ab positive (IgM negative) - Monitor fever curve - Daily CBCs with diff - Cannot pursue MR imaging due to retained needle in left groin. Left Hallux and 2nd Toe Wound: Followed by podiatry at outside hospital. Ortho evaluated on admission and recommended dressing changes per patient home recs. Per RN, wound looks good today. - Dressing change orders placed History of Raynaud's disease - Continue PLUSH DRESSER gabapentin ?? Opoid use disorder - Regularly gets Suboxone from [facility]. UDS at OSH positive for cocaine use. APS consulted , appreciate recs, pain management as above -Bowel Regimen: Senna 2 tablets PO at bedtime in combination with Polyethylene glycol (PEG) 17 g PO every day. -Naloxone at D/C -Inpatient substance use treatment algorithm: - UDS samples PRN - Consult pharmacy for med review - Cover all IVs at all time - Substance use agreement signed ?? VTE Prophylaxis Ambulation and SCDs Code: Prior Discharge Plan Home or self care after wound closure later this week pending antibiotic requirements Consults APS, Ortho Sydnie Chakraborty DO, MPH Family Medicine PGY3, Page #[phone] 04/28/21, 7:28 Associated attestation - Clark Salinas MD - 04/28/2021 1324 EST Attestation: I performed or was present during the joseph or critical portions of the visit and participated in the management of the patient on 04/28/2021. I agree with the findings and plan of care documented in the resident's/fellow's note. Sepsis. Deep hand infection status post washout with interval closure and Falguni drain. Sepsis resolved. Pain greatly improved from last night. Titration of LAPIDARIST per APS. Anticipate DC tomorrow or possibly Sunday Clark Salinas MD 04/28/2021 13:23 Ayaz Jernigan RN - 04/28/2021 0607 EST Data: Assumed care of patient at 2330 AOx3 on room air with even, nonlabored respirations. Has intact dressing to right arm s/p I&D 04/27. Non-pitting swelling to fingers of right hand. Well healedright BKA. Ketamine infusion at 25 mg/hr and Hydromorphone LAPIDARIST at 0.4 mg q10 mins; 2.4 mg per/hr limit. Gauze dressing to left great toe and 2nd toe. Independent from bed to commode. Able to make needsknown. Action: All medication administered as ordered. Emotional needs met. Response: Patient currently awake in bed resting. Call stewart within reach. Will continue to monitor. AYAZ JERNIGAN RN 04/28/2021 6:07 ?? Reddy Smith MD - 04/27/2021 1230 EST Orthopaedic Brief Progress Note Paged to PACU due to uncontrolled pain of the patient s/p complex I&D and drain placement of theright arm for deep hand infection and acute carpal tunnel syndrome s/p open carpal tunnel release and I&D of the hand 04/[address] Bansal Patient was in acute distress upon my arrival. She was moving her right arm at the shoulder and elbow complaining of uncontrolled pain that began in her right shoulder and radiated down to her right arm. She reports that it was nerve pain. She denies any change in her numbness or paresthesias in herright arm. She is very hesitant to have her right hand and fingers touched, although upon verbal reassurance she was able to flex and extend her 5 digits actively and I was able to do so passively without increased pain. Sensation was intact to light touch overlying the median, ulnar, radial distributions of theright hand. APS kindly saw the patient in the PACU and restarted ketamine, trialed Precedex bolus, and restartedhydromorphone LAPIDARIST. Cannot perform brachial plexus block due to concern for compartment syndrome. I have ordered a second dose of gabapentin for the patient given component of neuropathic pain, and she is also due for Valium which the PACU nurse has administered. Feel that there is a component of anxiety contributing to her pain at this time. Though given patient's history certainly concerned about acute compartment syndrome. Will reassess in a short interval given concern for compartment syndrome. Although at this time it does not appear to be consistent with acute compartment syndrome of the right upper extremity given no increased pain with active or passive flexion extension of the right digits. REDDY JEROME MD 04/27/21 12:35 Reassessment Brief Note Reassessed patient know she is on the floor. She was seated comfortably in bed, reporting that her pain is much better controlled now. Numbness stable, no new paresthesias or weakness. Right arm splint in place Able to actively flex and extend her fingers without any increase in pain. She is able to tolerate passive flexion extension of her digits without significant increased pain. Sensation intact to light touch over the median, ulnar, and radial distributions of the fingers. Finger slightly swollen, warm well perfused. Reassuring exam, low concern for acute compartment syndrome. Patient's questions regarding her procedure and acute carpal tunnel syndrome answered. REDDY JEROME MD 04/27/21 15:21 Arnold Hollingsworth MD - 04/27/2021 1139 EST ACUTE PAIN SERVICE INITIAL INPATIENT FOLLOW UP NOTE CHIEF COMPLAINT: right upper extremity pain SUBJECTIVE: Saw patient in PACU after her complex incision and drainage of her RUE. Patient was in 10/10 pain, she was tearful and in visible distress. Continued to complain of 10/10 pain and is asking for help tolower her pain level. REVIEW OF SYSTEMS: Constitutional: Eye Mouth/Ent Cardiovascular: Yes No Yes No Yes No Yes No [] [x] Chills [] [] Blurry vision [] [] Dry mouth [] [] Chest Pain/Pressure [] [x] Fevers [] [] Double vision [] [] Increased salivation [] [] Palpitations [] [x] Hallucinations [] [] Photophobia [] [] [] [] [] [x] Nightmares [] [] Poor sleep Respiratory: Gastrointestinal: : [] [] Sedation Yes No Yes No Yes No [] [] [] [] Painful respirations [] [] Abdominal pain [] [] Difficulty urinating [] [x] Shortness of breath [] [x] Constipation [] [] Bladder spasms Neurological: [] [] [] [x] Diarrhea [] [] Yes No [] [] Nausea [] [] Headache Musculoskeletal: [x] [] Tolerating orals Integumentary: [] [x] right upper extremity numbness Yes No [] [] Vomiting Yes No [] [] Lower extremity weakness [] [] Backache [] [] [] [x] Itching [] [] Neck pain [] [] Muscle aches [] [] Rash [] [] Tinnitus [] [] Muscle spasms Psychiatric [] [] [] [] [] [] Weakness [] [] Anxious [] [] [] [] Depressed mood Hematologic: Allergic/Immunologic: [] [] Yes No Yes No Endocrine: [] [] Easy bleeding/bruising [] [] Hives [] [] Decreased libido [] [] Blood clots [] [] Immune deficiency [] [] Weight loss [] [] Medications: Current Facility-Administered Medications: acetaminophen (TYLENOL) solution unit dose cup 495 mg, 495 mg, oral, PRN OR acetaminophen (TYLENOL) tablet 650 mg, 650 mg, oral, PRN, Nivia Gimenez AA [JUN Hold] acetaminophen (TYLENOL) tablet 500 mg, 500 mg, oral, Q6H, Kraig Rodrigues MD, 500mg at 04/27/21 0518 atropine 0.1 mg/mL syringe 0.5 mg, 0.5 mg, intravenous, PRN, Nivia Gimenez AA [JUN Hold] buprenorphine-naloxone (SUBOXONE) 2-0.5 mg sublingual film 3 Film, 3 Film, sublingual, DAILY, Sourav Leal MD, 3 Film at 04/27/21 0846 [JUN Hold] cefTRIAXone (ROCEPHIN) 2,000 mg in sodium chloride (NS MBP) 50 mL IVPB, 2,000 mg, intravenous, Q24H, Sourav Leal MD, 2,000 mg at 04/26/21 2317 diphenhydrAMINE (BENADRYL) injection 12.5 mg, 12.5 mg, intravenous, PRN, Nivia Gimenez AA fentaNYL citrate (PF) injection 25-50 mcg, 25-50 mcg, intravenous, Q5 MINUTES PRN, Nivia Gimenez AA, 50 mcg at 04/27/21 1101 [JUN Hold] gabapentin (NEURONTIN) capsule 600 mg, 600 mg, oral, DAILY (BREAKFAST), Sourav Leal MD, 600 mg at 04/27/21 0841 HYDROmorphone (DILAUDID) liquid 6 mg, 6 mg, oral, PACU Once, Nivia Gimenez AA HYDROmorphone (PF) (DILAUDID) 0.5 mg/0.5 mL syringe 0.3-0.5 mg, 0.3-0.5 mg, intravenous, Q10 MINUTES PRN, Nivia Gimenez AA, 0.5 mg at 04/27/21 1058 HYDROmorphone (PF) (DILAUDID) 0.5 mg/0.5 mL syringe, , , , HYDROmorphone 1 mg/ml (DILAUDID) LAPIDARIST syringe, 30 ml, , intravenous, CONTINUOUS, Leo Aguilar MD, [place] at 04/27/21 1137 ibuprofen (MOTRIN) tablet 400 mg, 400 mg, oral, PRN, Nivia Gimenez AA [JUN Hold] ibuprofen (MOTRIN) tablet 400 mg, 400 mg, oral, Q6H PRN, Joya Camarena MD, 400 mg at 04/27/21 0407 ketAMINE (KETALAR) 250 mg in NaCl 0.9% 25 mL syringe, 25 mg/hr, intravenous, CONTINUOUS, Arnold Arredondo MD, Last Rate: 1.5 mL/hr at 04/27/21 0901, 15 mg/hr at 04/27/21 0901 lactated ringers (LR) infusion, , intravenous, PACU CONTINUOUS, Nivia Gimenez AA lactated ringers (LR) infusion, , intravenous, CONTINUOUS, Kyle Caballero MD, Last Rate: 75 mL/hr at106/27/20 2318, Restarted at 04/27/21 0901 [JUN Hold] lidocaine (PF) 10 mg/mL (1 %) injection 2 mg, 2 mg, intradermal, PRN, Sourav Leal MD metoclopramide (REGLAN) injection 10 mg, 10 mg, intravenous, PRN, Nivia Gimenez AA midazolam (PF) (VERSED) injection 2 mg, 2 mg, intravenous, Q10 MINUTES PRN, Tamra Chavarria MD, 2 mg at 04/27/21 1040 naloxone (NARCAN) injection 0.2 mg, 0.2 mg, intravenous, PRN, Nivia Gimenez AA [JUN Hold] polyethylene glycol 3350 (MIRALAX) packet 17 g, 17 g, oral, DAILY, Joya Camarena MD, 17g at 04/26/21 0827 [JUN Hold] senna (SENOKOT) tablet 2 Tablet, 2 Tablet, oral, QHS, Joya Camarena MD, 2 Tablet at 04/25/212020 [JUN Hold] tiZANidine (ZANAFLEX) tablet 4 mg, 4 mg, oral, Q8H PRN, Joya Camarena MD Allergies: Allergies Allergen Reactions Other - See Comments Pt allergic to soap in sheets, red raised rash on back PHYSICAL EXAM: BP (!) 158/97 Pulse 68 Temp 36.6 ??C (97.9 ??F) (Temporal) Resp 13 Ht 165.1 cm (65) Wt 54.4 kg (120 lb) SpO2 100% BMI 19.97 kg/m?? Constitutional: alert, oriented, tearful, and in severe discomfort Respiratory: unlabored breathing Musculoskeletal: RUE with post surgical dressing Neuro: moves RUE Psych: affect wnl LABORATORIES: Covid-19: Lab Results Component Value Date COVID-19 rt-PCR Result Negative 04/26/2021 COVID-19 rt-PCR Result NEGATIVE 05/13/2020 COVID-19 rt-PCR Result NEGATIVE 05/13/2020 CBC: Recent Labs 04/25/21 0616 04/26/21 0618 04/27/21 0530 WBC 8.07 7.22 6.29 RBC 3.24* 3.34* 3.43* HGB 9.3* 9.4* 9.5* HCT 28.6* 28.9* 30.3* MCV 88 87 88 MCH 28.7 28.1 27.7 MCHC 32.5 32.5 31.4* PLT 201 233 257 NEUTROABS 5.96 5.15 4.05 BMP: Recent Labs 04/25/21 0615 04/26/21 0619 04/27/21 0530 NA 139 139 138 K 3.9 4.0 4.3 CL 103 102 100 CO2 30 32 29 BUN 12 16 17 CREATININE 0.52 0.67 0.63 CALCIUM 8.0* 8.6 8.7 LFT: No results for input(s): TBIL, ALKPHOS, AST, ALT, LIPASE, AMYLASE in the last 72 hours. Cardiac Markers: No results for input(s): CK, MB, CKMBINDEX, TROPONINI in the last 72 hours. ASSESSMENT: This is a 40 y.o. female w/ PMH substance use disorder (IVDU, opioids, cocaine) on suboxone c/b peripheral vascular disease (right obturator bypass 2018 for infected pseudoaneurysm followed by right BKA 2019), hepatitis C, DVT, and depression now POD# 4 s/p open carpal tunnel release (04/23) for increased right hand swelling/redness/pain x 3d and POD#0 complex incision and drainage of RUE. Overall doing well, Pain well controlled Pain chronicity: Acute Pain type: Somatic nociceptive pain, Neuropathic pain and Inflammatory pain Opioid Tolerance: Opioid tolerant with opioid misuse disorder Pain intensity: Severe Pain Trend: Stable Opioid risk tool assessment: High risk of opioid misuse (score 8+) (Opioid Risk Tool Link) RECOMMENDATIONS: Brachial plexus block cannot be performed given risk for compartment syndrome. Non-Opioid Adjuncts Acetaminophen: Can consider reducing given history of hep C to 500 mg PO Q6H standing. Limit course to 7 days. Not recommended on discharge for those patients with alcohol use disorder. Restart Ketamine and increase to 25 mg/hr Bantry Precedex bolus 1 mcg/kg over 10 mins to help with post-op pain/anxiety Continue gabapentin 600 mg PO daily Muscle Relaxant: Continue tizanidine 4 mg PO Q8H PRN (hold if systolic blood pressure < 100 mmHg or if the patient is sedated). Tizanidine is an [id number] like dexmedetomidine which may help with anxiety, sleep, muscle spasms, and/or pain. By its self, it does not suppress the respiratory drive. It may cause Qtc prolongation in combination with other medications (e.g. ciprofloxacin and methadone). Do not administer concomitantly with clonidine or dexmedetominidine or CYP inhibitors such asfamotidine. Bradycardia and profound hypotension may be seen if combined with an ZOFIA inhibitor or ARB. Continue ibuprofen 400 mg PO Q6H PRN. Change to scheduled if possible. Opioids: (Expected duration of opioid use for specific surgeries: [place] Open Website) Restart hydromorphone LAPIDARIST 0.4 mg every 10 mins No Basal rate 2.4 mg per hour limit Discontinue PO and IV hydromorphone Pt's home dose daily 6mg Suboxone: as such continue Suboxone 2-0.5mg 3 film SL daily Bowel Regimen: Senna 2 tablets PO at bedtime in combination with PEG or lactulose. Senna may cause abdominal cramping (Indication: prophylactic) Polyethylene glycol (PEG) 17 g PO every day. Naloxone: On discharge, please provide prescription for naloxone 1 mg intranasal x1 for respiratory depression for high risk patients (e.g. history of history of opioid or substance use disorder, > 50 morphine mg equivalents per day, contaminant benzodiazepine use, etc.) Thank you for including the Acute Pain Service in care of this patient. Please contact us (pager #[phone]) with any questions or concerns. Patient seen with Arnold Arredondo MD (Attending) LEO AGUILAR MD Anesthesiology, PGY2 Attestation statement: I discussed the patient with the resident/fellow at the time of the visit. I agree with the findings and the plan of care documented in the resident's/fellow's note. Arnold Arredondo MD 04/27/2021 11:53 Vaishali Humphrey - 04/27/2021 0910 EST OR today. Poss closure and dc pending result. Vaishali BrisenoRNCCM #[id number] Juan Alonzo MD - 04/27/2021 0714 EST Orthopaedic Daily Progress Note Diagnosis/Procedure: Right deep hand infection with acute carpal tunnel syndrome s/p open carpal tunnel release and I&D of the hand on 04/23/[address] Bansal Subjective: Hand is sore this morning, but pain is controlled. Objective: BP 129/69 (BP Cuff Location: Right arm, BP Patient Position: Lying left side) Pulse 68 Temp 36.4??C (97.5 ??F) (Oral) Resp 16 Ht 165.1 cm (65) Wt 54.4 kg (120 lb) SpO2 97% BMI 19.97 kg/m?? No acute distress Non-labored breathing Focused MSK: Right hand with dressings in place. Sensation intact over exposed fingers. Flexes and extends at all fingers. Fingers WWP with brisk capillary refill. Forearm compartments soft and compressible. No significant pain with passive ROM of fingers. Labs: WBC/Hgb/Hct/Plts: 6.29/9.5/30.3/257 (04/27 530) Na/K/Cl/CO2: 138/4.3/100/29 (04/27 530) BUN/Cr/glu/ALT/AST/amyl/lip: 17/0.63/104/--/--/--/-- (04/27 530) Assessment: Lindsay Jean Baptiste is a 40 y.o. 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 Bansal for a deep infection as well as acute carpal tunnel syndrome. She also has a chronic left dorsal hallux and second toe ulcer which is being managed by an outside hospital podiatry team. ?? Plan: -Appreciate care per primary team -Weight Bearing: NWB RUE -Aggressive elevation RUE -Maintain splint to RUE -Multimodal pain control -Diet: NPO for OR -Antibiotics: Per ID -continuing ceftriaxone. -Continue local/PLUSH DRESSER management of left foot ulceration with outpatient follow-up with school janitor -Plan for operative intervention with orthopedic surgery today Juan Schmitz MD Orthopaedic Surgery, PGY2 Claude Marie MD - 04/27/2021 0646 EST Family Medicine Progress Note Service Date: 04/27/2021 Admit Date: 04/22/2021 15:22 Reason for Admission: 40 y.o. female admitted with a chief complaint of right arm swelling and now with a principal diagnosis of a right arm cellulitis. Overnight Events: NPO for OR with ortho today Subjective/Objective Subjective Pt in OR during rounding this morning. Per review with staff, no acute events overnight. Pt feeling well. Will follow up after procedure today Review of Systems Denies fever, chills, chest pain, abdominal pain, nausea, or vomiting. Objective Vital Signs Temp: [36.4 ??C (97.5 ??F)-36.8 ??C (98.3 ??F)] , Heart Rate: --, Resp: [16-18] , BP: (129-142)/(69-88) , SpO2: [97 %-100 %] Physical exam: pt in OR, will follow up after procedure Is PICC or central line present? Yes, it is still present. The line is still required. Medications: Reviewed. Labs: Reviewed: CBC: Recent Labs 04/25/21 0616 04/26/21 0618 04/27/21 0530 WBC 8.07 7.22 6.29 RBC 3.24* 3.34* 3.43* HGB 9.3* 9.4* 9.5* HCT 28.6* 28.9* 30.3* MCV 88 87 88 MCH 28.7 28.1 27.7 MCHC 32.5 32.5 31.4* PLT 201 233 257 NEUTROABS 5.96 5.15 4.05 BMP: Recent Labs 04/25/21 0615 04/26/21 0619 04/27/21 0530 NA 139 139 138 K 3.9 4.0 4.3 CL 103 102 100 CO2 30 32 29 BUN 12 16 17 CREATININE 0.52 0.67 0.63 CALCIUM 8.0* 8.6 8.7 Imaging: Reviewed. Assessment/Plan Assessment Lindsay Jean Baptiste is a 40 y.o. female with a PMHx significant for osteomyelitis status post right BKA, IVDU, opioid use disorder and chronic foot ulcers presents from [facility] for concerns for worsening right arm pain, swelling, and redness. She was found to have a deep wrist infection. Underwent washout and carpal tunnel release with Orthopedics on admission. Pt is hemodynamically stable and afebrile. Remains admitted for IV antibiotic therapy and wound management. Plan for OR today, hopefully, for wound closure. Plan Sepsis secondary to right arm with deep space carpal tunnel infection: CT from outside hospital showed no abscess, but fluid within the flexor tendon sheath within the carpel tunnel. - Ortho consulted, appreciate assistance in care - Purulent fluid collected in OR (04/23) during washout and carpal tunnel release, (+) GPC - ID consulted appreciate recs - Plan to continue Ceftriaxone 2g Q24hrs, Vanc D/C 04/24 - Elevate RUE - will, ideally, be able to narrow coverage after OR today - Pain regimen: APS consulted, following recs - Reduce APAP 650 mg to 500 mg PO Q6hr, IBU PRN - Ketamine gtt (manged by APS) - D/C Dilaudid LAPIDARIST 04/25, transition to dilaudid 4-6 mg PO q3hr for pain - hydromorphone 0.5 mg IV Q4H PRN for breakthough pain - Tizanidine 4mg PO Q8hr - Continue PLUSH DRESSER gabapentin - Continue PLUSH DRESSER suboxone Suboxone 2-0.5mg 3 film SL daily - Follow-up OSH blood clxs -Called and left message 04/25 (negative BC at [facility] to date suggesting that this may not be related to a heart valve infection)- per ID note - Monitor fever curve - Daily CBCs with diff - Cannot pursue MR imaging due to retained needle in left groin. Left Hallux and 2nd Toe Wound: Followed by podiatry at outside hospital. Ortho evaluated on admission and recommended dressing changes per patient home recs. History of Raynaud's disease - Continue PLUSH DRESSER gabapentin ?? Opoid use disorder - Regularly gets Sub[facility]one from [facility]. UDS at OSH positive for cocaine use. APS consulted , appreciate recs, pain management as above -Bowel Regimen: Senna 2 tablets PO at bedtime in combination with Polyethylene glycol (PEG) 17 g PO every day. -Naloxone at D/C -Inpatient substance use treatment algorithm: - UDS samples PRN - Consult pharmacy for med review - Cover all IVs at all time - Substance use agreement signed ?? VTE Prophylaxis Seqential Compression Device?? Code: Prior Discharge Plan Home or self care after wound closure later this week pending antibiotic requirements Consults APS Discussed with Dr. Brad James MD Family Medicine, PGY-3 04/27/21 6:48 #[id number] Associated attestation - Clark Salinas MD - 04/27/2021 1254 EST Attestation: I performed or was present during the joseph or critical portions of the visit and participated in the management of the patient on 04/27/2021. I agree with the findings and plan of care documented in the resident's/fellow's note. Clark Salinas MD 04/27/2021 12:54 Elmira Lynne RN - 04/26/2021 2126 EST Data: when evening shift started pt's ketamine was on hold to do a pain trial. Pt then started c/o pain 01/07. Action: pt was medicated with her oral dilaudid and ibuprofen and tylenol and the pain team came to see pt and it was decided that the ketamine would be restarted for the night. Response: pt has not c/o pain and rates it 11/06. Iv team came to change the dsg. On IJ line. Pt alsoc/o itchy skin so I change her linen to the sensitive skin linen which seems to have helped a little. ELMIRA LYNNE RN 04/26/2021 21:26 DheerajefArnold sigala MD - 04/26/2021 1301 EST ACUTE PAIN SERVICE INITIAL INPATIENT FOLLOW UP NOTE CHIEF COMPLAINT: right upper extremity pain SUBJECTIVE: Patient doing well after transitioning off of her HM LAPIDARIST to PO hydromorphone. States her pain is well tolerated and did not need any IV hydromorphone for break through pain. Continues to deny nightmares and Hallucinations. She is wanting to go home whenever her procedure is completed. Discussed with her about pausing her ketamine infusion to see if she can tolerate her pain without the ketamine infusion. REVIEW OF SYSTEMS: Constitutional: Eye Mouth/Ent Cardiovascular: Yes No Yes No Yes No Yes No [] [x] Chills [] [] Blurry vision [] [] Dry mouth [] [] Chest Pain/Pressure [] [x] Fevers [] [] Double vision [] [] Increased salivation [] [] Palpitations [] [x] Hallucinations [] [] Photophobia [] [] [] [] [] [x] Nightmares [] [] Poor sleep Respiratory: Gastrointestinal: : [] [] Sedation Yes No Yes No Yes No [] [] [] [] Painful respirations [] [] Abdominal pain [] [] Difficulty urinating [] [x] Shortness of breath [] [x] Constipation [] [] Bladder spasms Neurological: [] [] [] [x] Diarrhea [] [] Yes No [] [] Nausea [] [] Headache Musculoskeletal: [x] [] Tolerating orals Integumentary: [] [x] right upper extremity numbness Yes No [] [] Vomiting Yes No [] [] Lower extremity weakness [] [] Backache [] [] [] [x] Itching [] [] Neck pain [] [] Muscle aches [] [] Rash [] [] Tinnitus [] [] Muscle spasms Psychiatric [] [] [] [] [] [] Weakness [] [] Anxious [] [] [] [] Depressed mood Hematologic: Allergic/Immunologic: [] [] Yes No Yes No Endocrine: [] [] Easy bleeding/bruising [] [] Hives [] [] Decreased libido [] [] Blood clots [] [] Immune deficiency [] [] Weight loss [] [] Medications: Current Facility-Administered Medications: acetaminophen (TYLENOL) tablet 500 mg, 500 mg, oral, Q6H, Kraig Rodrigues MD, 500 mg at 04/26/21 1131 buprenorphine-naloxone (SUBOXONE) 2-0.5 mg sublingual film 3 Film, 3 Film, sublingual, DAILY, Sourav Leal MD, 3 Film at 04/26/21 0827 [START ON 04/27/2021] ceFAZolin (ANCEF) syringe 2 g, 2 g, intravenous, PLUGGER MAN TO O.R., Sourav Leal MD cefTRIAXone (ROCEPHIN) 2,000 mg in sodium chloride (NS MBP) 50 mL IVPB, 2,000 mg, intravenous, Q24H, Sourav Leal MD, 2,000 mg at 04/25/21 2327 gabapentin (NEURONTIN) capsule 600 mg, 600 mg, oral, DAILY (BREAKFAST), Sourav Leal MD, 600 mg at 04/26/21826 HYDROmorphone (DILAUDID) liquid 4-6 mg, 4-6 mg, oral, Q3H PRN, Leo Aguilar MD, 6 mg at 04/26/21 1300 HYDROmorphone (PF) (DILAUDID) 0.5 mg/0.5 mL syringe 0.5 mg, 0.5 mg, intravenous, Q4H PRN, Leo Aguilar MD ibuprofen (MOTRIN) tablet 400 mg, 400 mg, oral, Q6H PRN, Joya Camarena MD, 400 mg at 04/26/21826 ketAMINE (KETALAR) 250 mg in NaCl 0.9% 25 mL syringe, 15 mg/hr, intravenous, CONTINUOUS, Kyle Caballero MD, Infusion Stopped at 04/26/21 1254 lactated ringers (LR) infusion, , intravenous, CONTINUOUS, Kyle Caballero MD, Last Rate: 75 mL/hr at106/27/20 0748, Rate Verify at 04/26/21 0748 lidocaine (PF) 10 mg/mL (1 %) injection 2 mg, 2 mg, intradermal, PRN, Sourav Leal MD polyethylene glycol 3350 (MIRALAX) packet 17 g, 17 g, oral, DAILY, Joya Camarena MD, 17 g at 04/26/21826 senna (SENOKOT) tablet 2 Tablet, 2 Tablet, oral, QHS, Joya Camarena MD, 2 Tablet at 04/25/212020 tiZANidine (ZANAFLEX) tablet 4 mg, 4 mg, oral, Q8H PRN, Joya Camarena MD Allergies: No Known Allergies PHYSICAL EXAM: BP 125/68 (BP Cuff Location: Left arm, BP Patient Position: Semi fowlers) Pulse 75 Temp 36.9 ??C(98.4 ??F) (Oral) Resp 17 Ht 165.1 cm (65) Wt 54.4 kg (120 lb) SpO2 97% BMI 19.97 kg/m?? Constitutional: alert, cooperative, oriented, and in no acute distress Respiratory: unlabored breathing Musculoskeletal: RUE with post surgical dressing Neuro: moves RUE Psych: affect wnl LABORATORIES: Covid-19: Lab Results Component Value Date COVID-19 rt-PCR Result Negative 04/23/2021 COVID-19 rt-PCR Result NEGATIVE 05/13/2020 COVID-19 rt-PCR Result NEGATIVE 05/13/2020 CBC: Recent Labs 04/24/21 0614 04/25/21 0616 04/26/21 0618 WBC 12.01 8.07 7.22 RBC 3.30* 3.24* 3.34* HGB 9.3* 9.3* 9.4* HCT 28.7* 28.6* 28.9* MCV 87 88 87 MCH 28.2 28.7 28.1 MCHC 32.4 32.5 32.5 PLT 191 201 233 NEUTROABS 10.02* 5.96 5.15 BMP: Recent Labs 04/24/21 0613 04/25/21 0615 04/26/21 0619 NA 138 139 139 K 3.3* 3.9 4.0 CL 104 103 102 CO2 28 30 32 BUN 8* 12 16 CREATININE 0.55 0.52 0.67 CALCIUM 8.0* 8.0* 8.6 LFT: No results for input(s): TBIL, ALKPHOS, AST, ALT, LIPASE, AMYLASE in the last 72 hours. Cardiac Markers: No results for input(s): CK, MB, CKMBINDEX, TROPONINI in the last 72 hours. ASSESSMENT: This is a 40 y.o. female w/ PMH substance use disorder (IVDU, opioids, cocaine) on suboxone c/b peripheral vascular disease (right obturator bypass 2018 for infected pseudoaneurysm followed by right BKA 2019), hepatitis C, DVT, and depression now POD# 3 s/p open carpal tunnel release (04/23) for increased right hand swelling/redness/pain x 3d. Overall doing well, Pain well controlled Pain chronicity: Acute Pain type: Somatic nociceptive pain, Neuropathic pain and Inflammatory pain Opioid Tolerance: Opioid tolerant with opioid misuse disorder Pain intensity: Moderate Pain Trend: Stable Opioid risk tool assessment: High risk of opioid misuse (score 8+) (Opioid Risk Tool Link) RECOMMENDATIONS: Consider brachial plexus block for surgery on 04/27/2021 if approved by ortho. Non-Opioid Adjuncts Acetaminophen: Can consider reducing given history of hep C to 500 mg PO Q6H standing. Limit course to 7 days. Not recommended on discharge for those patients with alcohol use disorder. Pause ketamine: Ok for gabapentin 600mg daily Muscle Relaxant: Continue tizanidine 4 mg PO Q8H PRN (hold if systolic blood pressure < 100 mmHg or if the patient is sedated). Tizanidine is an [id number] like dexmedetomidine which may help with anxiety, sleep, muscle spasms, and/or pain. By its self, it does not suppress the respiratory drive. It may cause Qtc prolongation in combination with other medications (e.g. ciprofloxacin and methadone). Do not administer concomitantly with clonidine or dexmedetominidine or CYP inhibitors such asfamotidine. Bradycardia and profound hypotension may be seen if combined with an ZOFIA inhibitor or ARB. Ok with ibuprofen 400 q6 PRN Opioids: (Expected duration of opioid use for specific surgeries: [place] Open Website) Hydromorphone 4-6 mg PO Q3H PRN for pain Hydromorphone 0.5 mg IV Q4H PRN for severe breakthough pain only (non used) Pt's home dose daily 6mg Suboxone: as such continue Suboxone 2-0.5mg 3 film SL daily Bowel Regimen: Senna 2 tablets PO at bedtime in combination with PEG or lactulose. Senna may cause abdominal cramping (Indication: prophylactic) Polyethylene glycol (PEG) 17 g PO every day. Naloxone: On discharge, please provide prescription for naloxone 1 mg intranasal x1 for respiratory depression for high risk patients (e.g. history of history of opioid or substance use disorder, > 50 morphine mg equivalents per day, contaminant benzodiazepine use, etc.) Thank you for including the Acute Pain Service in care of this patient. Please contact us (pager #[phone]) with any questions or concerns. Patient seen with Arnold Arredondo MD (Attending) LEO AGUILAR MD Anesthesiology, PGY2 Attestation statement: I discussed the patient with the resident/fellow at the time of the visit. I agree with the findings and the plan of care documented in the resident's/fellow's note. Arnold Arredondo MD 04/26/2021 13:28 Juan Alonzo MD - 04/26/2021 0715 EST Orthopaedic Daily Progress Note Diagnosis/Procedure: Right deep hand infection with acute carpal tunnel syndrome s/p open carpal tunnel release and I&D of the hand on 04/23/[address] Bansal Subjective: Feeling better today than yesterday. No new concerns. Pain continuing to improve. Objective: BP 125/68 (BP Cuff Location: Left arm, BP Patient Position: Semi fowlers) Pulse 75 Temp 36.9 ??C(98.4 ??F) (Oral) Resp 17 Ht 165.1 cm (65) Wt 54.4 kg (120 lb) SpO2 97% BMI 19.97 kg/m?? No acute distress Non-labored breathing Focused MSK: RUE: Dressings in place without strikethrough. SILT to all exposed fingers including in the median nerve distribution. Forearm compartments are soft and compressible and without pain with ROM of fingers and wrist. Flexes and extends at all fingers and thumb. Labs: WBC/Hgb/Hct/Plts: 7.22/9.4/28.9/233 (04/26 618) Na/K/Cl/CO2: 139/4.0/102/32 (04/26 619) BUN/Cr/glu/ALT/AST/amyl/lip: 16/0.67/107/--/--/--/-- (04/26 619) Micro: Strep dysgalactiae on intraoperative cultures from the right hand Assessment: Lindsay Jean Baptiste is a 40 y.o. 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 Bansal for a deep infection as well as acute carpal tunnel syndrome. She also has a chronic left dorsal hallux and second toe ulcer which is being managed by an outside hospital podiatry team. ?? Plan: -Appreciate care per primary team -Weight Bearing: NWB RUE -Aggressive elevation RUE -Maintain splint to RUE -Multimodal pain control -Diet: NPO after midnight -Antibiotics: Per ID -continuing ceftriaxone. -Continue local/PLUSH DRESSER management of left foot ulceration with outpatient follow-up with school janitor -Dispo: Pending -Plan for repeat I&D with potential wound closure tomorrow 04/27/21 Juan Schmitz MD Orthopaedic Surgery, PGY2 Pager #[phone] Kraig Guerrier MD - 04/26/2021 0653 EST Medicine Progress Note Service Date: 04/26/2021 Admit Date: 04/22/2021 15:22 Reason for Admission: 40 y.o. female admitted with a chief complaint of right arm swelling and now with a principal diagnosis of a right arm cellulitis. Overnight Events: NAOE Subjective/Objective Subjective Patient resting comfortably in bed this morning. Reports the pain is primarily in her hand and wristand sometimes throbs in the knuckles of her right hand. She also reports that she spoke to her outpatient podiatry team yesterday and rescheduled for her appointment later this month regarding her toe.We reviewed the plan for possible closure with the orthopedics team tomorrow to which she expressed understanding and agreed. No other concerns today. Review of Systems Denies fever, chills, chest pain, abdominal pain, nausea, or vomiting. Objective Vital Signs Temp: [36.9 ??C (98.4 ??F)-37.3 ??C (99.1 ??F)] , Heart Rate: --, Resp: [16-17] , BP: (125-135)/(68-93) , SpO2: [95 %-97 %] Physical exam: General: Comfortable, cooperative and in no apparent distress HEENT: PERRLA, EOMI, no conjunctival icterus, oral mucosa is moist without apparent lesions CARDIOVASCULAR: Regular rate and rhythm, S1S2, no murmurs, rubs or gallops LUNGS: No accessory muscle use on respiration, clear to auscultation bilaterally ABDOMEN: Soft, non-tender, non distended EXTREMITIES, SKIN: No edema, Right lower arm and hand wrapped. Left foot wound also wrapped. NEURO: Alert and oriented x3 PSYCH: Normal mood, congruent affect. Answers questions appropriately. Is PICC or central line present? Yes, it is still present. The line is still required. Medications Current Facility-Administered Medications Medication Route Frequency ??? acetaminophen (TYLENOL) tablet 500 mg oral Q6H ??? buprenorphine-naloxone (SUBOXONE) 2-0.5 mg sublingual film 3 Film sublingual DAILY ??? [START ON 04/27/2021] ceFAZolin (ANCEF) syringe 2 g intravenous PLUGGER MAN TO O.R. ??? cefTRIAXone (ROCEPHIN) 2,000 mg in sodium chloride (NS MBP) 50 mL IVPB intravenous Q24H ??? gabapentin (NEURONTIN) capsule 600 mg oral DAILY (BREAKFAST) ??? HYDROmorphone (DILAUDID) liquid 4-6 mg oral Q3H PRN ??? HYDROmorphone (PF) (DILAUDID) 0.5 mg/0.5 mL syringe 0.5 mg intravenous Q4H PRN ??? ibuprofen (MOTRIN) tablet 400 mg oral Q6H PRN ??? ketAMINE (KETALAR) 250 mg in NaCl 0.9% 25 mL syringe intravenous CONTINUOUS ??? lactated ringers (LR) infusion intravenous CONTINUOUS ??? lidocaine (PF) 10 mg/mL (1 %) injection 2 mg intradermal PRN ??? polyethylene glycol 3350 (MIRALAX) packet 17 g oral DAILY ??? senna (SENOKOT) tablet 2 Tablet oral QHS ??? tiZANidine (ZANAFLEX) tablet 4 mg oral Q8H PRN Labs CBC: Recent Labs 04/24/21 0614 04/25/21 0616 04/26/21 0618 WBC 12.01 8.07 7.22 RBC 3.30* 3.24* 3.34* HGB 9.3* 9.3* 9.4* HCT 28.7* 28.6* 28.9* MCV 87 88 87 MCH 28.2 28.7 28.1 MCHC 32.4 32.5 32.5 PLT 191 201 233 NEUTROABS 10.02* 5.96 5.15 BMP: Recent Labs 04/23/21 0920 04/24/21 0613 04/25/21 0615 NA 136 138 139 K 3.0* 3.3* 3.9 CL 100 104 103 CO2 25 28 30 BUN 8* 8* 12 CREATININE 0.69 0.55 0.52 CALCIUM 8.4* 8.0* 8.0* LABALBU 3.2* -- -- LFT: Recent Labs 04/23/21 0920 TBIL <0.5 ALKPHOS 114 AST 24 ALT 27 Cardiac Markers: No results for input(s): CK, MB, CKMBINDEX, TROPONINI in the last 72 hours. Imaging No new imaging in the past 24hrs. Assessment/Plan Assessment Lindsay Jean Baptiste is a 40 y.o. female with a PMHx significant for osteomyelitis status post right BKA, IVDU, opioid use disorder and chronic foot ulcers presents from [facility] for concerns for worsening R arm cellulitis and need for possible surgical intervention. Patient is now s/p right carpel tunnel release per ortho. Pain is well controlled per APS recs. At this time will continue ceftriaxone for antibiotic coverage. Plan for closure of surgical site on R arm when ortho available on 04/27. Plan Sepsis secondary to right arm with deep space carpal tunnel infection: Cellulitis noted on admissionbased on physical exam. CT from outside hospital showed no abscess, but fluid within the flexor tendon sheath within the carpel tunnel. - Ortho consulted, patient now s/p carpel tunnel release, awaiting site closure per ortho team, planfor tomorrow NPO at midnight - Purulent fluid collected in OR (04/23), (+) GPC - ID consulted appreciate recs - Plan to continue Ceftriaxone 2g Q24hrs, Vanc D/C 04/24 - Elevate RUE - Pain regimen: APS consulted, following recs - Reduce APAP 650 mg to 500 mg PO Q6hr, IBU PRN - Ketamine gtt (manged by APS) - D/C Dilaudid LAPIDARIST 04/25, transition to dilaudid 4-6 mg PO q3hr for pain - hydromorphone 0.5 mg IV Q4H PRN for breakthough pain - Tizanidine 4mg PO Q8hr - Continue PLUSH DRESSER gabapentin - Continue PLUSH DRESSER suboxone Suboxone 2-0.5mg 3 film SL daily - Follow-up OSH blood clxs -Called and left message 04/25 (negative BC at [facility] to date suggesting that this may not be related to a heart valve infection)- per ID note - Monitor fever curve - Daily CBCs with diff - Cannot pursue MR imaging due to retained needle in left groin. Left Hallux and 2nd Toe Wound: Followed by podiatry at outside hospital. Ortho evaluated on admission and recommended dressing changes per patient home recs. 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 #Opoid use disorder - Regularly gets [facility]one from [facility]. UDS at OSH positive for cocaine use. APS consulted , appreciate recs, pain management as above -Bowel Regimen: Senna 2 tablets PO at bedtime in combination with Polyethylene glycol (PEG) 17 g PO every day. -Naloxone at D/C -Inpatient substance use treatment algorithm: - UDS samples PRN - Consult pharmacy for med review - Cover all IVs at all time - Substance use agreement signed ?? VTE Prophylaxis Seqential Compression Device?? Code: Prior Discharge Plan Home or self care after wound closure later this week Consults APS Discussed with Dr. Clark RODRIGUES MD 04/26/2021 6:53 Family Medicine PGY1 [id number] Associated attestation - Clark Salinas MD - 04/26/2021 1525 EST Attestation: I performed or was present during the joseph or critical portions of the visit and participated in the management of the patient on 04/26/2021. I agree with the findings and plan of care documented in the resident's/fellow's note. Clark Salinas MD 04/26/2021 15:25 Vaishali Briseno - 04/25/2021 1516 EST Initial Case Management/Social Work Assessment and Discharge Plan/Readmission Risk Assessment REASON FOR ADMISSION: Right arm cellulitis Patient understands reason for admission: Yes PATIENT INFO VERIFIED: PCP, Contact Info, Address Type of housing (single family, condo, apartment, half-way, single room occupancy, [facility] funded hotel room, group half-way) - apartment Who does the patient live with?daughter-9Y.O. Does the patient have access to their own bedroom/bathroom/kitchen - or is it shared with others? own Name of housing complex (ex [address], [facility], etc)- [facility] Housing Authority/Managing Organization - subsidized housing Community Care Providers (patient case coordinator, [facility] nurse, etc) name and contact information-na LIVING ARRANGEMENTS AND ACCESSIBILITY ISSUES: Living Arrangements: Children Levels: 1 Stairs to enter: 4 or more Handicap access: None Bathroom located on bedroom level?: Yes What in home social supports are available to the patient? Friends / neighbors Is 20/11 care available? No ADVANCED DIRECTIVES, POA &/or COLST IN PLACE: Healthcare Directive: No, patient does not have advance directive for healthcare treatment DIRECTIVES FOR FINANCES: TRANSPORTATION: [facility]: [facility] Patient expects to be discharged to: Home CULTURAL, YARSANISM and/or LANGUAGE factors affecting health care/discharge planning: Spiritual/Cultural Requests: None Insurance Information: Nutrition: DISCHARGE RISK ASSESSMENT: Polypharmacy, > 7 medications;Acute/chronic wound or pressure ulcer Total # selected above: Score of 2 - 4: This patient is at MODERATE RISK for re-hospitalization Tentative plan to address the risk of re-hospitalization for those at HIGH MODERATE RISK: Bring riskfactors to attention of team to be addressed RAPT TOOL: Gender: Female Ambulation distance: 2 or more blocks (600ft) Gait device: Crutch/Walker Community Services: Home health, [facility], [facility]-none of one time a week Will you live with someone who will care for you?: No RAPT Tool Score: 4 Patient expects to be discharged to: Home SBIRT: SASQ (Single Alcohol Screening Question) How many times in the past year have you had 4 or more drinks in a single day?: Never How many times in the past year have you used an illegal drug or used a prescription medication for non-medical reasons?: Never (Describes Hx but denies any current use) Intervention in place/initiated?: No, not indicated FUNCTIONAL STATUS: Activities patient requires assistance: None Assistive Device: Crutches, Wheel chair (Supposed to get prosthesis Apr) COMMUNITY RESOURCES/SUPPORTS: Primary Care Provider: Ratna Olivas PCP Verified: Specialists: Other, Orthopedics (ID) Type of Home Health Services: None DME Provider: Pharmacy: [id number] - [facility], [place] - [address] AT [address] [facility] [address] [place] [address] Home Health: Other: POST HOSPITAL TRANSITION PLAN:Pt resides with her 9YO daughter in an apartment in [facility]. SHe has a wc but rarely uses it and relies on crutches to get around. She states she is in process of obtaining a prosthesis and is supposed to be getting it Apr this next year. She does drive but her car is incapacitated at the moment so she uses [facility] to get to medical appointments. . She will need a ride home and will need to contact [facility] for ride. She states her new PCP is Georgette Ramsey, at [facility] internal Medicine in [facility]. CM will follow for any DC needs. VAISHALI BRISENO 04/25/2021 15:16 Arnold Hollingsworth MD - 04/25/2021 1024 EST ACUTE PAIN SERVICE INITIAL INPATIENT FOLLOW UP NOTE CHIEF COMPLAINT: right upper extremity pain SUBJECTIVE: Can in the knuckles. Pressure in nature. Pt doing well, pain well controlled. 5-810 No nightmares, but weird dreams REVIEW OF SYSTEMS: Constitutional: Eye Mouth/Ent Cardiovascular: Yes No Yes No Yes No Yes No [] [x] Chills [] [] Blurry vision [] [] Dry mouth [] [] Chest Pain/Pressure [] [x] Fevers [] [] Double vision [] [] Increased salivation [] [] Palpitations [] [x] Hallucinations [] [] Photophobia [] [] [] [] [] [x] Nightmares [] [] Poor sleep Respiratory: Gastrointestinal: : [] [] Sedation Yes No Yes No Yes No [] [] [] [] Painful respirations [] [] Abdominal pain [] [] Difficulty urinating [] [x] Shortness of breath [] [x] Constipation [] [] Bladder spasms Neurological: [] [] [] [x] Diarrhea [] [] Yes No [] [] Nausea [] [] Headache Musculoskeletal: [x] [] Tolerating orals Integumentary: [] [x] right upper extremity numbness Yes No [] [] Vomiting Yes No [] [] Lower extremity weakness [] [] Backache [] [] [] [x] Itching [] [] Neck pain [] [] Muscle aches [] [] Rash [] [] Tinnitus [] [] Muscle spasms Psychiatric [] [] [] [] [] [] Weakness [] [] Anxious [] [] [] [] Depressed mood Hematologic: Allergic/Immunologic: [] [] Yes No Yes No Endocrine: [] [] Easy bleeding/bruising [] [] Hives [] [] Decreased libido [] [] Blood clots [] [] Immune deficiency [] [] Weight loss [] [] Medications: Current Facility-Administered Medications: ??? acetaminophen (TYLENOL) tablet 650 mg, 650 mg, oral, Q6H, Joya Camarena MD, 650 mg at 04/25/21 0604 ??? buprenorphine-naloxone (SUBOXONE) 2-0.5 mg sublingual film 3 Film, 3 Film, sublingual, DAILY, Sourav Leal MD, 3 Film at 04/25/21 0848 ??? cefTRIAXone (ROCEPHIN) 2,000 mg in sodium chloride (NS MBP) 50 mL IVPB, 2,000 mg, intravenous, Q24H, Sourav Leal MD, 2,000 mg at 04/24/21 2326 ??? gabapentin (NEURONTIN) capsule 600 mg, 600 mg, oral, DAILY (BREAKFAST), Sourav Leal MD, 600 mg at 04/25/21 0848 ??? HYDROmorphone 1 mg/ml (DILAUDID) LAPIDARIST syringe, 30 ml, , intravenous, LAPIDARIST, Kyle Caballero MD, Rate Verify at 04/25/21 0605 ??? ibuprofen (MOTRIN) tablet 400 mg, 400 mg, oral, Q6H PRN, Joya Camarena MD, 400 mg at 04/25/21 0241 ??? ketAMINE (KETALAR) 250 mg in NaCl 0.9% 25 mL syringe, 15 mg/hr, intravenous, CONTINUOUS, Kyle Caballero MD, Last Rate: 1.5 mL/hr at 04/25/21 0606, 15 mg/hr at 04/25/21 0606 ??? lactated ringers (LR) infusion, , intravenous, CONTINUOUS, Kyle Caballero MD, Last Rate: 75 mL/hrat 04/25/21 002, New Bag at 04/25/21 002 ??? lidocaine (PF) 10 mg/mL (1 %) injection 2 mg, 2 mg, intradermal, PRN, Sourav Leal MD ??? polyethylene glycol 3350 (MIRALAX) packet 17 g, 17 g, oral, DAILY, Joya Camarena MD ??? senna (SENOKOT) tablet 2 Tablet, 2 Tablet, oral, QHS, Joya Camarena MD, 2 Tablet at 04/24/212011 ??? tiZANidine (ZANAFLEX) tablet 4 mg, 4 mg, oral, Q8H PRN, Joya Camarena MD Allergies: No Known Allergies PHYSICAL EXAM: BP 124/61 (BP Cuff Location: Left arm, BP Patient Position: Sitting) Pulse 75 Temp 36.8 ??C (98.2 ??F) (Oral) Resp 15 Ht 165.1 cm (65) Wt 54.4 kg (120 lb) SpO2 95% BMI 19.97 kg/m?? Constitutional: alert, cooperative, oriented, and in no acute distress Respiratory: unlabored breathing Musculoskeletal: RUE with post surgical dressing Neuro: moves RUE Psych: affect wnl LABORATORIES: Covid-19: Lab Results Component Value Date COVID-19 rt-PCR Result Negative 04/23/2021 COVID-19 rt-PCR Result NEGATIVE 05/13/2020 COVID-19 rt-PCR Result NEGATIVE 05/13/2020 CBC: Recent Labs 04/23/21 0650 04/24/21 0614 04/25/21 0616 WBC 16.72* 12.01 8.07 RBC 3.43* 3.30* 3.24* HGB 9.9* 9.3* 9.3* HCT 30.1* 28.7* 28.6* MCV 88 87 88 MCH 28.9 28.2 28.7 MCHC 32.9 32.4 32.5 PLT 171 191 201 NEUTROABS 14.42* 10.02* 5.96 BMP: Recent Labs 04/23/21 0650 04/23/21 0650 04/23/21 0920 04/24/21 0613 04/25/21 0615 NA 136 < > 136 138 139 K 2.9* < > 3.0* 3.3* 3.9 CL 102 < > 100 104 103 CO2 27 < > 25 28 30 BUN 7* < > 8* 8* 12 CREATININE 0.67 < > 0.69 0.55 0.52 CALCIUM 8.7 < > 8.4* 8.0* 8.0* MG 1.8 -- -- -- -- LABALBU -- -- 3.2* -- -- < > = values in this interval not displayed. LFT: Recent Labs 04/23/21 0920 TBIL <0.5 ALKPHOS 114 AST 24 ALT 27 Cardiac Markers: Recent Labs 04/23/21 0157 CK 102 ASSESSMENT: This is a 40 y.o. female w/ PMH substance use disorder (IVDU, opioids, cocaine) on suboxone c/b peripheral vascular disease (right obturator bypass 2018 for infected pseudoaneurysm followed by right BKA 2019), hepatitis C, DVT, and depression now POD# 2 s/p open carpal tunnel release (04/23 for increased right hand swelling/redness/pain x 3d. Overall doing well, Pain well controlled 1. Pain chronicity: Acute 2. Pain type: Somatic nociceptive pain, Neuropathic pain and Inflammatory pain 3. Opioid Tolerance: Opioid tolerant with opioid misuse disorder 4. Pain intensity: Moderate 5. Pain Trend: Stable 6. Opioid risk tool assessment: High risk of opioid misuse (score 8+) (Opioid Risk Tool Link) RECOMMENDATIONS: Non-Opioid Adjuncts ??? Acetaminophen: Can consider reducing given history of hep C to 500 mg PO Q6H standing. Limit course to 7 days. Not recommended on discharge for those patients with alcohol use disorder. ??? Continue ketamine at 15mg/hr: monitor for hallucinations, nightmares, euphoria ??? Ok for gabapentin 600mg daily ? ? Muscle Relaxant: Continue tizanidine 4 mg PO Q8H PRN (hold if systolic blood pressure < 100 mmHg or if the patient is sedated). Tizanidine is an [id number] like dexmedetomidine which may help with anxiety, sleep, muscle spasms, and/or pain. By its self, it does not suppress the respiratory drive. It may cause Qtc prolongation in combination with other medications (e.g. ciprofloxacin and methadone). Do not administer concomitantly with clonidine or dexmedetominidine or CYP inhibitors such as famotidine. Bradycardia and profound hypotension may be seen if combined with an ZOFIA inhibitor or ARB. ??? Ok with ibuprofen 400 q6 PRN Opioids: (Expected duration of opioid use for specific surgeries: [facility]) ??? Stop LAPIDARIST ??? Start hydromorphone 4-6 mg PO Q3H PRN for pain ??? Consider hydromorphone 0.5 mg IV Q4H PRN for severe breakthough pain only ??? Pt's home dose daily 6mg Suboxone: as such continue Suboxone 2-0.5mg 3 film SL daily ??? Bowel Regimen: Senna 2 tablets PO at bedtime in combination with PEG or lactulose. Senna may cause abdominal cramping (Indication: prophylactic) ??? Polyethylene glycol (PEG) 17 g PO every day. ??? Naloxone: On discharge, please provide prescription for naloxone 1 mg intranasal x1 for respiratory depression for high risk patients (e.g. history of history of opioid or substance use disorder, > 50 morphine mg equivalents per day, contaminant benzodiazepine use, etc.) Thank you for including the Acute Pain Service in care of this patient. Please contact us (pager #[phone]) with any questions or concerns. Patient seen with Leo Aguilar MD (resident) Arnold Arredondo MD Tomeka Moreno MD - 04/25/2021 0883 EST Orthopedic surgery progress note: Problem: Right deep hand infection with acute carpal tunnel syndrome Procedure: 04/23/2021 (Dr. Bansal) right open carpal tunnel release and hand I&D Subjective: hand pain improved over the past day. Objective: Afebrile, vital signs stable RUE- dressing c/d/i and remains fully in place. Elevated on pillows. SILT on tips of all 5 exposed fingers. Flexes and extends thumb. No forearm pain with palpation. Micro: Strep dysgalactiae on intraoperative cultures from the right hand Assessment and plan: Lindsay Jean Baptiste is a 40 y.o. 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 Bansal for a deep infection as well as acute carpal tunnel syndrome. She also has a chronic left dorsal hallux and second toe ulcer which is being managed by an outside hospital podiatryteam. -Nonweightbearing right upper extremity, activity as tolerated otherwise -Aggressive elevation to right upper extremity -Maintain splint to right upper extremity -DVT prophylaxis:per primary -Diet: NPO -Antibiotics: Appreciate ID recommendations. Continuing ceftriaxone. Discontinuing vancomycin. 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 TOMEKA HUERTA MD 04/25/2021 8:29 Kraig Guerrier MD - 04/25/2021 0700 EST Medicine Progress Note Service Date: 04/25/2021 Admit Date: 04/22/2021 15:22 Reason for Admission: 40 y.o. female admitted with a chief complaint of right arm swelling and now with a principal diagnosis of a right arm cellulitis. Overnight Events: NAOE - Went to the OR 04/23 evening for a right open carpel tunnel release. Wound was left open. APS was consulted on ortho recommendation and started the patient on a ketamine gtt and dilaudid LAPIDARIST. Subjective/Objective Subjective Patient resting comfortably in bed this morning. Reports the pain is 5 out of 10 and at baseline. Most of the pain is located located in the right wrist. Patient reports that she is hoping to have the wound closed today and we spoke about this plan regarding whether or not surgery would be able to get. Plan to reach out to Ortho resident discussed with patient. Patient also had concern regarding her toe stating that she had an appointment to get the toe amputated on 04/28/2021. Per the orthopedics team no further intervention during this admission and patientwill have to follow-up regarding the toe at a later date. Review of Systems Denies fever, chills, chest pain, abdominal pain, nausea, or vomiting. Objective Vital Signs Temp: [36.5 ??C (97.7 ??F)-36.9 ??C (98.4 ??F)] , Heart Rate: [74 BPM-75 BPM] , Resp: [15-16] , BP: (100-125)/(61-83) , SpO2: [95 %-100 %] Physical Exam Constitutional: General: She is not in acute distress. Appearance: Normal appearance. She is not ill-appearing or toxic-appearing. HENT: Head: Normocephalic and atraumatic. Eyes: Extraocular Movements: Extraocular movements intact. Cardiovascular: Rate and Rhythm: Normal rate and regular rhythm. Pulmonary: Effort: Pulmonary effort is normal. No respiratory distress. Breath sounds: Normal breath sounds. No wheezing or rales. Abdominal: General: Abdomen is flat. Bowel sounds are normal. There is no distension. Palpations: Abdomen is soft. Tenderness: There is no abdominal tenderness. There is no guarding or rebound. Musculoskeletal: Cervical back: Normal range of motion and neck supple. Comments: Right lower arm and hand wrapped. Left foot wound also wrapped. Skin: General: Skin is warm and dry. Neurological: General: No focal deficit present. Mental Status: She is alert. Psychiatric: Attention and Perception: Attention normal. Mood and Affect: Mood and affect normal. Speech: Speech normal. Behavior: Behavior normal. Behavior is cooperative. Thought Content: Thought content normal. Is PICC or central line present? Yes, it is still present. The line is still required. Medications Current Facility-Administered Medications Medication Route Frequency ??? acetaminophen (TYLENOL) tablet 650 mg oral Q6H ??? buprenorphine-naloxone (SUBOXONE) 2-0.5 mg sublingual film 3 Film sublingual DAILY ??? cefTRIAXone (ROCEPHIN) 2,000 mg in sodium chloride (NS MBP) 50 mL IVPB intravenous Q24H ??? gabapentin (NEURONTIN) capsule 600 mg oral DAILY (BREAKFAST) ??? HYDROmorphone 1 mg/ml (DILAUDID) LAPIDARIST syringe, 30 ml intravenous LAPIDARIST ??? ibuprofen (MOTRIN) tablet 400 mg oral Q6H PRN ??? ketAMINE (KETALAR) 250 mg in NaCl 0.9% 25 mL syringe intravenous CONTINUOUS ??? lactated ringers (LR) infusion intravenous CONTINUOUS ??? lidocaine (PF) 10 mg/mL (1 %) injection 2 mg intradermal PRN ??? polyethylene glycol 3350 (MIRALAX) packet 17 g oral DAILY ??? senna (SENOKOT) tablet 2 Tablet oral QHS ??? tiZANidine (ZANAFLEX) tablet 4 mg oral Q8H PRN Labs CBC: Recent Labs 04/23/21 0650 04/24/21 0614 04/25/21 0616 WBC 16.72* 12.01 8.07 RBC 3.43* 3.30* 3.24* HGB 9.9* 9.3* 9.3* HCT 30.1* 28.7* 28.6* MCV 88 87 88 MCH 28.9 28.2 28.7 MCHC 32.9 32.4 32.5 PLT 171 191 201 NEUTROABS 14.42* 10.02* 5.96 BMP: Recent Labs 04/23/21 0650 04/23/21 0650 04/23/21 0920 04/24/21 0613 04/25/21 0615 NA 136 < > 136 138 139 K 2.9* < > 3.0* 3.3* 3.9 CL 102 < > 100 104 103 CO2 27 < > 25 28 30 BUN 7* < > 8* 8* 12 CREATININE 0.67 < > 0.69 0.55 0.52 CALCIUM 8.7 < > 8.4* 8.0* 8.0* MG 1.8 -- -- -- -- LABALBU -- -- 3.2* -- -- < > = values in this interval not displayed. LFT: Recent Labs 04/23/21 0920 TBIL <0.5 ALKPHOS 114 AST 24 ALT 27 Cardiac Markers: Recent Labs 04/23/21 0157 CK 102 Imaging No new imaging in the past 24hrs. Assessment/Plan Assessment Lindsay Jean Baptiste is a 40 y.o. female with a PMHx significant for osteomyelitis status post right BKA, IVDU, opioid use disorder and chronic foot ulcers presents from [facility] for concerns for worsening R arm cellulitis and need for possible surgical intervention. Patient is now s/p right carpel tunnel release per ortho. Pain is well controlled per APS recs. At this time will continue ceftriaxone for antibiotic coverage. Plan for closure of surgical site on R arm when ortho available. Plan Sepsis secondary to right arm cellulitis: Cellulitis noted on admission based on physical exam. CT from outside hospital showed no abscess, but fluid within the flexor tendon sheath within the carpel tunnel. - Ortho consulted, patient now s/p carpel tunnel release, awaiting site closure per ortho team - Purulent fluid collected in OR (04/23), (+) GPC - Plan to continue Ceftriaxone 2g Q24hrs, Vanc D/C 04/24 - Consult ID for antibiotic recs and for duration recs. - Elevate RUE - Pain regimen: APS consulted, following recs - Reduce APAP 650 mg to 500 mg PO Q6hr, IBU PRN - Ketamine gtt (manged by APS) - D/C Dilaudid LAPIDARIST, transition to dilaudid 4-6 mg PO q3hr for pain - Consider hydromorphone 0.5 mg IV Q4H PRN for breakthough pain - Tizanidine 4mg PO Q8hr - Continue PLUSH DRESSER gabapentin - Continue PLUSH DRESSER suboxone Suboxone 2-0.5mg 3 film SL daily - Follow-up OSH blood clxs -Called and left message today (negative BC at [facility] to date suggesting that this may not be related to a heart valve infection)- per ID note - Monitor fever curve - Daily CBCs with diff - Cannot pursue MR imaging due to retained needle in left groin. Left Hallux and 2nd Toe Wound: Followed by podiatry at outside hospital. Ortho evaluated on admission and recommended dressing changes per patient home recs. 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 #Opoid use disorder - Regularly gets Suboxone from [facility]. UDS at OSH positive for cocaine use. APS consulted , appreciate recs, pain management as above -Bowel Regimen: Senna 2 tablets PO at bedtime in combination with Polyethylene glycol (PEG) 17 g PO every day. -Naloxone at D/C -Inpatient substance use treatment algorithm: - UDS samples PRN - Consult pharmacy for med review - Cover all IVs at all time - Substance use agreement signed ?? VTE Prophylaxis Seqential Compression Device?? Code: Prior Discharge Plan Home or self care Consults APS KRAIG RODRIGUES MD 04/25/2021 7:16 Family Medicine PGY1 [id number] Associated attestation - Clark Salinas MD - 04/25/2021 1425 EST Attestation: I performed or was present during the joseph or critical portions of the visit and participated in the management of the patient on 04/25. I agree with the findings and plan of care as documented in the resident's/fellow's note. Sepsis secondary to deep right hand infection. Surgical washout and closure scheduled now for Sunday. Patient doing well and eager for definitive treatment by amputation for left toe wound. Present planfor that is for it to be done as an outpatient by her orthopedic surgeon in [place] Clark Salinas MD 04/25/2021 14:23 Elmira Lynne RN - 04/24/2021 1653 EST Data: pt's pain has been well managed she rates it 5-6/10. Pt has been pleasant and compliant with care. Action: pt was able to do much of her personal care with min. Assistance. Pt got out of bed and did a stand pivot into a chair with one assist and sat up for a few hrs. Response: pt is back in bed resting at this time. Call stewart in reach ELMIRA LYNNE RN 04/24/2021 16:53 Jona Orozco MBBS - 04/24/2021 0916 EST ACUTE PAIN SERVICE INITIAL INPATIENT FOLLOW UP NOTE CHIEF COMPLAINT: right upper extremity pain SUBJECTIVE: Pt doing well, pain well controlled, denies f/c, nightmares, hallucinations, able to move right finger, pt reports her home dose of Suboxone is 6mg daily, pt denies opioid withdrawal symptoms (runny nose, diarrhea) REVIEW OF SYSTEMS: Constitutional: Eye Mouth/Ent Cardiovascular: Yes No Yes No Yes No Yes No [] [x] Chills [] [] Blurry vision [] [] Dry mouth [] [] Chest Pain/Pressure [] [x] Fevers [] [] Double vision [] [] Increased salivation [] [] Palpitations [] [x] Hallucinations [] [] Photophobia [] [] [] [] [] [x] Nightmares [] [] Poor sleep Respiratory: Gastrointestinal: : [] [] Sedation Yes No Yes No Yes No [] [] [] [] Painful respirations [] [] Abdominal pain [] [] Difficulty urinating [] [x] Shortness of breath [] [x] Constipation [] [] Bladder spasms Neurological: [] [] [] [x] Diarrhea [] [] Yes No [] [] Nausea [] [] Headache Musculoskeletal: [x] [] Tolerating orals Integumentary: [] [x] right upper extremity numbness Yes No [] [] Vomiting Yes No [] [] Lower extremity weakness [] [] Backache [] [] [] [x] Itching [] [] Neck pain [] [] Muscle aches [] [] Rash [] [] Tinnitus [] [] Muscle spasms Psychiatric [] [] [] [] [] [] Weakness [] [] Anxious [] [] [] [] Depressed mood Hematologic: Allergic/Immunologic: [] [] Yes No Yes No Endocrine: [] [] Easy bleeding/bruising [] [] Hives [] [] Decreased libido [] [] Blood clots [] [] Immune deficiency [] [] Weight loss [] [] Medications: Current Facility-Administered Medications: ??? acetaminophen (TYLENOL) tablet 650 mg, 650 mg, oral, Q6H, Joya Camarena MD, 650 mg at 04/24/21 0509 ??? buprenorphine-naloxone (SUBOXONE) 2-0.5 mg sublingual film 3 Film, 3 Film, sublingual, DAILY, Sourav Leal MD, 3 Film at 04/23/21 0819 ??? cefTRIAXone (ROCEPHIN) 2,000 mg in sodium chloride (NS MBP) 50 mL IVPB, 2,000 mg, intravenous, Q24H, Sourav Leal MD, 2,000 mg at 04/23/212320 ??? gabapentin (NEURONTIN) capsule 600 mg, 600 mg, oral, DAILY (BREAKFAST), Sourav Leal MD ??? HYDROmorphone 1 mg/ml (DILAUDID) LAPIDARIST syringe, 30 ml, , intravenous, LAPIDARIST, Kyle Caballero MD, New Bag at 04/23/212026 ??? ibuprofen (MOTRIN) tablet 400 mg, 400 mg, oral, Q6H PRN, Joya Camarena MD ??? ketAMINE (KETALAR) 250 mg in NaCl 0.9% 25 mL syringe, 15 mg/hr, intravenous, CONTINUOUS, Kyle Caballero MD, Last Rate: 1.5 mL/hr at 04/24/21 0500, 15 mg/hr at 04/24/21 0500 ??? lidocaine (PF) 10 mg/mL (1 %) injection 2 mg, 2 mg, intradermal, PRN, Sourav Leal MD ??? polyethylene glycol 3350 (MIRALAX) packet 17 g, 17 g, oral, DAILY, Joya Camarena MD ??? potassium chloride SA (K-DUR) tablet 20 mEq, 20 mEq, oral, Q4H, Gigi Ramos MD ??? senna (SENOKOT) tablet 2 Tablet, 2 Tablet, oral, QHS, Joya Camarena MD, 2 Tablet at 04/23/21 2335 ??? tiZANidine (ZANAFLEX) tablet 4 mg, 4 mg, oral, Q8H PRN, Joya Camarena MD ??? vancomycin (VANCOCIN) IVPB 1,000 mg, 1,000 mg, intravenous, Q8H, Zhen Beavers III, MD Allergies: No Known Allergies PHYSICAL EXAM: BP 109/61 (BP Cuff Location: Left arm, BP Patient Position: Semi fowlers) Pulse 83 Temp 36.7 ??C(98.1 ??F) (Oral) Resp 16 Ht 165.1 cm (65) Wt 54.4 kg (120 lb) SpO2 93% BMI 19.97 kg/m?? Constitutional: alert, cooperative, oriented, and in no acute distress Respiratory: unlabored breathing Musculoskeletal: RUE with post surgical dressing Neuro: moves RUE Psych: affect wnl LABORATORIES: Covid-19: Lab Results Component Value Date COVID-19 rt-PCR Result Negative 04/23/2021 COVID-19 rt-PCR Result NEGATIVE 05/13/2020 COVID-19 rt-PCR Result NEGATIVE 05/13/2020 CBC: Recent Labs 04/22/21 1639 04/23/21 0650 04/24/21 0614 WBC 14.45* 16.72* 12.01 RBC 3.56* 3.43* 3.30* HGB 9.9* 9.9* 9.3* HCT 32.0* 30.1* 28.7* MCV 90 88 87 MCH 27.8 28.9 28.2 MCHC 30.9* 32.9 32.4 PLT 135* 171 191 NEUTROABS 12.43* 14.42* 10.02* BMP: Recent Labs 04/23/21 0650 04/23/21 0920 04/24/21 0613 NA 136 136 138 K 2.9* 3.0* 3.3* CL 102 100 104 CO2 27 25 28 BUN 7* 8* 8* CREATININE 0.67 0.69 0.55 CALCIUM 8.7 8.4* 8.0* MG 1.8 -- -- LABALBU -- 3.2* -- LFT: Recent Labs 04/23/21 0920 TBIL <0.5 ALKPHOS 114 AST 24 ALT 27 Cardiac Markers: Recent Labs 04/23/21 0157 CK 102 ASSESSMENT: This is a 40 y.o. 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 Overall doing well, Pain well controlled 1. Pain chronicity: Acute 2. Pain type: Somatic nociceptive pain, Neuropathic pain and Inflammatory pain 3. Opioid Tolerance: Opioid tolerant with opioid misuse disorder 4. Pain intensity: Moderate 5. Pain Trend: Stable 6. Opioid risk tool assessment: High risk of opioid misuse (score 8+) (Opioid Risk Tool Link) RECOMMENDATIONS: Non-Opioid Adjuncts ??? Acetaminophen: continue acetaminophen 750 mg PO Q6H standing. Limit course to 7 days. Not recommended on discharge for those patients with alcohol use disorder. ??? Continue ketamine at 15mg/hr: monitor for hallucinations, nightmares, euphoria ??? Ok for gabapentin 600mg daily ? ? Muscle Relaxant: Continue tizanidine 4 mg PO Q8H PRN (hold if systolic blood pressure < 100 mmHg or if the patient is sedated). Tizanidine is an [id number] like dexmedetomidine which may help with anxiety, sleep, muscle spasms, and/or pain. By its self, it does not suppress the respiratory drive. It may cause Qtc prolongation in combination with other medications (e.g. ciprofloxacin and methadone). Do not administer concomitantly with clonidine or dexmedetominidine or CYP inhibitors such as famotidine. Bradycardia and profound hypotension may be seen if combined with an ZOFIA inhibitor or ARB. ??? Ok with ibuprofen 400 q6 PRN Opioids: (Expected duration of opioid use for specific surgeries: [facility]) ??? Continue HM IV LAPIDARIST 0.4mg q10 ??? Pt's home dose daily 6mg Suboxone: as such continue Suboxone 2-0.5mg 3 film SL daily ??? Bowel Regimen: Senna 2 tablets PO at bedtime in combination with PEG or lactulose. Senna may cause abdominal cramping (Indication: prophylactic) ??? Polyethylene glycol (PEG) 17 g PO every day. ??? Naloxone: On discharge, please provide prescription for naloxone 1 mg intranasal x1 for respiratory depression for high risk patients (e.g. history of history of opioid or substance use disorder, > 50 morphine mg equivalents per day, contaminant benzodiazepine use, etc.) Thank you for including the Acute Pain Service in care of this patient. Please contact us (pager #[phone]) with any questions or concerns. Colleen Ware MD [facility] Pain Medicine Fellow PGY-5 04/24/21 Attending attestation: I saw and examined the patient with fellow/resident. I agree with the findings and plan of care documented in this note. ELMER Meyer Lory Alford RD - 04/24/2021 0914 EST Nutrition Assessment Reason for Assessment: Medical Summary: Lindsay Jean Baptiste is a 40 y.o. female with a PMHx significant for osteomyelitis status post right BKA, IVDU, opioid use disorder and chronic foot ulcers presents from [facility] for concerns for worsening R arm cellulitis and need for possible surgical intervention. Patient reports right hand swelling and redness for about 3 days. Found to have diffuse soft tissue swelling on imaging with no acute concerns for intervention per Orthopedics. Will plan to continue IV abx for management with serial physicalexaminations per Orthopedics. Subjective: Pt occupied with other providers then sleeping soundly when attempted to interview. Objective: Current Nutrition Orders: Diet Rx: regular Relevant Medications: Suboxone, ceftriaxone, gabapentin, miralax, KCl, senna, vanco Allergies on file: Patient has no known allergies. Relevant Labs: Lab Results Component Value Date/Time WBC 12.01 04/24/2021 06:14 HGB 9.3 (L) 04/24/2021 06:14 HCT 28.7 (L) 04/24/2021 06:14 MCV 87 04/24/2021 06:14 NA 138 04/24/2021 06:13 K 3.3 (L) 04/24/2021 06:13 CO2 28 04/24/2021 06:13 CL 104 04/24/2021 06:13 BUN 8 (L) 04/24/2021 06:13 CREATININE 0.55 04/24/2021 06:13 SERGLU 142 (H) 04/24/2021 06:13 CALCIUM 8.0 (L) 04/24/2021 06:13 PHOS 3.4 06/29/2017 13:17 MG 1.8 04/23/2021 06:50 No results found for: HGBA1C, GLUCOSEPOC No results found for: ZINCMZN, COPPER, THIAMINE, FOLATE, [id number], METMMETHY, VITEALPH, RETINOL, VITD No results found for: IRON, TIBC, FERRITIN Anthropometrics: Height: 165.1 cm (65) Weight : 54.4 kg (120 lb) BMI (adjusted for amputation): 21.1 Wt Readings from Last 8 Encounters: 04/23/21 54.4 kg (120 lb) 05/28/18 54.4 kg (120 lb) Weights Filed This Admission 04/23/21 0400 Weight: 54.4 kg (120 lb) Nutrition Focused Physical Findings: NFPE: deferred 2/2 pt not available; face appears lean when seen lying in bed, no overt muscle or fat wasting Digestive Systems: 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 Pt screened 2/2chronic toes wounds noted on admit. Chronic wounds to L great and second toe with possible plan for amputation per notes. Pt is s/p R BKA in 2019 for R foot osteomyelitis. Pt not available for interview today, RD to f/u as able. Chart reviewed. Wgt stable x ~2 yrs per EMR. BMI wnl. Unable to assess diet hx at this time, will f/u. Suggest add MVM daily to support adequate micronutrient needs for healing in the setting of recent surgery and planned additional surgery. Regular diet appropriate to maximize food choices. K+ low this am, repleted, continue to monitor. Suggest check phos to r/o need for supplement. Unable to fully assess for malnutrition at this time. Nutrition Risk Level: Moderate (2) Medical Nutrition Therapy Plan and Recommendations: Continue diet Please add MVM daily Suggest check phos with next labs Encourage good PO Continue to monitor intake, wgt, labs, skin, bowels, comfort. RD following Lory Clifton MS, RD, CD Please call PAS or use [employer] to page RD covering this unit Gigi Malhotra MD - 04/24/2021 0815 EST Medicine Progress Note Service Date: 04/24/2021 Admit Date: 04/22/2021 15:22 Reason for Admission: 40 y.o. female admitted with a chief complaint of right arm swelling and now with a principal diagnosis of a right arm cellulitis. Overnight Events: - Went to the OR yesterday evening for a right open carpel tunnel release. Wound was left open. APS was consulted on ortho recommendation and started the patient on a ketamine gtt and dilaudid LAPIDARIST. Subjective/Objective Subjective The patient notes that her right hand feels much better today, and subjectively she thinks that her hand is less swollen despite it being currently wrapped up. She believes her left foot wound is largely unchanged. Patient notes that she was out of it last night but despite that, knew that her right hand was really hurting. Patient is excited about breakfast and ordered a lot. Review of Systems Denies fever, chills, chest pain, abdominal pain, nausea, or vomiting. Objective Vital Signs Temp: [36 ??C (96.8 ??F)-36.7 ??C (98.1 ??F)] , Heart Rate: [75 BPM-101 BPM] , Resp: [12-23] , BP: (102-142)/(54-121) , SpO2: [90 %-100 %] Physical Exam Constitutional: General: She is not in acute distress. Appearance: Normal appearance. She is not ill-appearing or toxic-appearing. HENT: Head: Normocephalic and atraumatic. Eyes: Extraocular Movements: Extraocular movements intact. Cardiovascular: Rate and Rhythm: Normal rate and regular rhythm. Pulmonary: Effort: Pulmonary effort is normal. No respiratory distress. Breath sounds: Normal breath sounds. No wheezing or rales. Abdominal: General: Abdomen is flat. Bowel sounds are normal. There is no distension. Palpations: Abdomen is soft. Tenderness: There is no abdominal tenderness. There is no guarding or rebound. Musculoskeletal: Cervical back: Normal range of motion and neck supple. Comments: Right lower arm and hand wrapped. Left foot wound also wrapped. Skin: General: Skin is warm and dry. Neurological: General: No focal deficit present. Mental Status: She is alert. Psychiatric: Attention and Perception: Attention normal. Mood and Affect: Mood and affect normal. Speech: Speech normal. Behavior: Behavior normal. Behavior is cooperative. Is PICC or central line present? No, PICC/Central line not present. Medications Current Facility-Administered Medications Medication Route Frequency ??? acetaminophen (TYLENOL) tablet 650 mg oral Q6H ??? buprenorphine-naloxone (SUBOXONE) 2-0.5 mg sublingual film 3 Film sublingual DAILY ??? cefTRIAXone (ROCEPHIN) 2,000 mg in sodium chloride (NS MBP) 50 mL IVPB intravenous Q24H ??? gabapentin (NEURONTIN) capsule 600 mg oral DAILY (BREAKFAST) ??? HYDROmorphone 1 mg/ml (DILAUDID) LAPIDARIST syringe, 30 ml intravenous LAPIDARIST ??? ibuprofen (MOTRIN) tablet 400 mg oral Q6H PRN ??? ketAMINE (KETALAR) 250 mg in NaCl 0.9% 25 mL syringe intravenous CONTINUOUS ??? lidocaine (PF) 10 mg/mL (1 %) injection 2 mg intradermal PRN ??? polyethylene glycol 3350 (MIRALAX) packet 17 g oral DAILY ??? senna (SENOKOT) tablet 2 Tablet oral QHS ??? tiZANidine (ZANAFLEX) tablet 4 mg oral Q8H PRN ??? vancomycin (VANCOCIN) IVPB 1,000 mg intravenous Q8H Labs CBC: Recent Labs 04/22/21 1639 04/23/21 0650 04/24/21 0614 WBC 14.45* 16.72* 12.01 RBC 3.56* 3.43* 3.30* HGB 9.9* 9.9* 9.3* HCT 32.0* 30.1* 28.7* MCV 90 88 87 MCH 27.8 28.9 28.2 MCHC 30.9* 32.9 32.4 PLT 135* 171 191 NEUTROABS 12.43* 14.42* 10.02* BMP: Recent Labs 04/23/21 0650 04/23/21 0920 04/24/21 0613 NA 136 136 138 K 2.9* 3.0* 3.3* CL 102 100 104 CO2 27 25 28 BUN 7* 8* 8* CREATININE 0.67 0.69 0.55 CALCIUM 8.7 8.4* 8.0* MG 1.8 -- -- LABALBU -- 3.2* -- LFT: Recent Labs 04/23/21 0920 TBIL <0.5 ALKPHOS 114 AST 24 ALT 27 Cardiac Markers: Recent Labs 04/23/21 0157 CK 102 Imaging No new imaging in the past 24hrs. Assessment/Plan Assessment Lindsay Jean Baptiste is a 40 y.o. female with a PMHx significant for osteomyelitis status post right BKA, IVDU, opioid use disorder and chronic foot ulcers presents from [facility] for concerns for worsening R arm cellulitis and need for possible surgical intervention. Patient is now s/p right carpel tunnel release per ortho. Pain is well controlled per APS recs. At this time will continue vanc and ceftriaxone for antibiotic coverage. Given the cem pus noted while the patient was in the OR (for right hand), will consult ID for antibiotic recs (antibiotic choice and duration). Plan Sepsis secondary to right arm cellulitis: Cellulitis noted on admission based on physical exam. CT from outside hospital showed no abscess, but fluid within the flexor tendon sheath within the carpel tunnel. - Ortho consulted, patient now s/p carpel tunnel release. - Purulent fluid collected in OR (04/23), (+) GPC - Plan to continue IV Vancomycin Q12hrs and Ceftriaxone Q24hrs - Consult ID for antibiotic recs and for duration recs. - Elevate RUE - Pain regimen: APS consulted - APAP 650 PO Q6hr - Ketamine gtt (manged by APS) - Dilaudid LAPIDARIST (managed by APS), LAPIDARIST dose 0.4mg, Max limit 2.4mg/hr - Tizanidine 4mg PO Q8hr - Continue PLUSH DRESSER gabapentin - Continue PLUSH DRESSER suboxone - Follow-up OSH blood clxs (attempted to call today, but went to lab voicemail). - Monitor fever curve - Daily CBCs with diff - Cannot pursue MR imaging due to retained needle in left groin. Left Hallux and 2nd Toe Wound: Followed by podiatry at outside hospital. Ortho evaluated on admission and recommended dressing changes per patient home recs. 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 #Opoid use disorder - Regularly gets Suboxone from [facility] clinic. UDS at OSH positive for cocaine use. - Continue PLUSH DRESSER Suboxone 6-1.5 mg once daily - Inpatient substance use treatment algorithm: - UDS samples PRN - Consult pharmacy for med review - Cover all IVs at all time - Substance use agreement signed ?? VTE Prophylaxis Seqential Compression Device *Note patient isn't on apixaban PLUSH DRESSER, as previously noted in her chart. ?? Code: Prior Discharge Plan Home or self care ?? Consults None Gigi Ramos MD 04/24/2021 8:15 Family Medicine [id number] signed by Zhen Beavers III, MD at 04/24/2021 12:32 EST Associated attestation - Zhen Beavers III, MD - 04/24/2021 1232 EST Attestation: I performed or was present during the joseph or critical portions of the visit and participated in the management of the patient on 04/24/2021. I agree with the findings and plan of care documented in the resident's/fellow's note. Lindsay Jean Baptiste presented with right arm cellulitis and significant swelling causing acute rightcarpal tunnel syndrome. She is now POD#1 s/p carpal tunnel release with ortho. Cem pus was noted during surgery and culture was collected. We will continue current antibiotics pending culture results(she also has blood cultures at the outside hospital which we will need to follow up on). Given complexity of her case, ID consulted today; will appreciate ID team's recommendations regarding therapy. Pain is currently well controlled; APS is now following and she is on ketamine and dilaudid LAPIDARIST. Reassuringly, her clinic picture is slightly improved today as she remains afebrile and with improved leukocytosis. Care of this patient will be assumed by attending provider Dr. Clark Salinas starting tomorrow. Zhen Beavers MD Family Medicine 04/24/21 Sourav Leal MD - 04/24/2021 0732 EST Orthopedic progress note Problem: Acute carpal tunnel syndrome of the right hand Procedure: Open carpal tunnel release with Dr. Bansal on 04/23/2021 24-hour: OR for above Purulent fluid collected in the OR positive for GPC APS consulted for pain control Subjective: Lindsay is feeling much better this morning. The tingling is gone in her fingers. She also feels the sensation has improved. She no longer has shooting pains going up the ulnar side of her forearm and upper arm. She sitting up in bed getting ready to order breakfast. Denies chest pain, shortness of breath, fevers or chills Objective:BP 109/61 (BP Cuff Location: Left arm, BP Patient Position: Semi fowlers) Pulse 83 Temp 36.7 ??C (98.1 ??F) (Oral) Resp 16 Ht 165.1 cm (65) Wt 54.4 kg (120 lb) SpO2 93% BMI 19.97 kg/m?? Sitting up comfortably in the bed ordering breakfast in no apparent distress Nonlabored breathing Focused exam of the right upper extremity The splint is clean, dry, intact She still has a little bit of diminished sensation in the median distribution but is significantly improved from yesterday. She has intact sensation in the ulnar distribution and over the radial hand. 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 She had an abscess with acute carpal tunnel syndrome. She was taken to the OR for open carpal tunnel release. This was left open and covered with a dressing to allow for the swelling to come down before final closure NWB RUE, AAT Splint for the RUE Aggressively elevate the RUE Pain control: APS consulted Okay to resume Eliquis Ambulate for DVT prophylaxis Antibiotics per primary Resume diet PT eval Plan for delayed closure early next week Sourav Leal MD 04/24/2021 7:35 I am post-call today and will not be able to answer calls. Please direct calls to orthopaedics electronic publishing specialist resident for further questions. Sourav oCrea MD - 04/24/2021 0235 EST Surgery Post-Op Check Service Date: 04/24/2021 2:35 Procedure: Open carpal tunnel release with Dr. Bansal on 04/23/2021 Subjective: Lindsay was very fatigued frequently falling asleep and requiring frequent redirection to reorientthe patient. While awake she said that she felt comfortable however could not tell if her sensation had change in her hand or not. She is moving her fingers within the splint a little bit better. Denies chest pain or shortness of breath Objective: Vital Signs: Temp: [36 ??C (96.8 ??F)-37.7 ??C (99.9 ??F)] , Heart Rate: [75 BPM-101 BPM] , Resp: [12-23] , BP: (102-142)/(54-121) , SpO2: [90 %-100 %] Physical Exam: GEN: NAD Resp: non labored breathing Focused exam of the right upper extremity Splint is clean, dry, intact Her fingers are warm and well-perfused with brisk capillary refill She is unable to discern if she is able to feel at all the tips of her fingers 3/5 EPL, FPL. Able to lightly flex and extend the fingers within the splint Assessment/Plan: Lindsay Jean Baptiste is a 40 y.o. female who is POD#0 from above. Follow brief op note plan Sourav Leal MD 04/24/2021 2:35 Sourav Corea MD - 04/23/2021 1237 EST Orthopedic brief 12:42 Checked in on Lindsay. She cannot tolerate the splint but has had her right hand propped on a couple of pillows. She feels that not much is changed in terms of the numbness that she has in her thumb,index, middle, and radial side of her ring finger. It is painful to move her fingers. The hand is diffusely swollen and erythematous. She has pain with passive stretch of the fingers andhas very minimal finger flexion limited by pain. She has decreased sensation on the palmar aspect ofthe thumb, index, middle, and radial side of her ring finger but is intact along the ulnar aspect ofher ring finger and small finger. She has a positive Tinel with light percussion and sharp shooting pain into her thumb, index, and middle fingers. Plan for or today for right carpal tunnel release and hand I&D today Patient needs to be splinted and elevated all times from now until surgery Antibiotics per primary, recommending ID consultation Nonweightbearing right upper extremity Sourav Leal MD 04/23/2021 12:42 Tomeka Moreno MD - 04/23/2021 0920 EST Orthopedic surgery progress note: Problem: Right hand infection with acute carpal tunnel syndrome Procedure: Pending Subjective: Having increasing pain overnight. Noticing increase in the numbness in her middle and index finger. Has not been able to tolerate the volar resting splint and refuses to put it back on. Objective: Afebrile, heart rate in the mid to upper 90s, blood pressure in the 120s over 70s to 80s. Right upper extremity with persistent circumferential swelling on the volar and dorsal aspect of thehand with erythema extending approximately 3 to 4 cm proximal to the wrist. With tapping over the carpal tunnel, patient has pains shooting into the middle and index finger on the palmar side. With sensation testing she has decreased sensation on the palmar aspect of the index and middle finger, more decreased as compared to slight decrease through the remainder of the palm including the ring and small finger. Weakly able to flex and extend fingers and thumb but extremely limited due to pain. More able to flex and extend the wrist, but still limited due to pain especially with extension causing pain on the volar hand/wrist. Assessment and plan: Lindsay Jean Baptiste is a 40 y.o. 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 -N.p.o. -To OR today for right carpal tunnel release and hand I&D -PATIENT NEEDS TO BE SPLINTED AND ELEVATED AT ALL TIMES FROM NOW UNTIL SURGERY -antibiotics per primary. Recommend ID consultation. -Nonweightbearing right upper extremity TOMEKA HUERTA MD 04/23/2021 9:26 documented in this encounter H&P Notes Luz Chavarria MD - 04/23/2021 0438 EST Hospital Medicine Admission History & Physical Service Date: 04/23/2021 Admit Date: 04/23/21 Primary Care Provider: Ratna Olivas Chief Complaint: R arm swelling HPI Lindsay Jean Baptiste is a 40 y.o. female with a PMHx of osteomyelitis status post right BKA, IVDU, opioid use disorder and chronic foot ulcers presents from [facility] for concerns for worsening R arm cellulitis and need for possible surgical intervention. Patient reports right hand swelling and redness for about 3 days. At that outside hospital, given poor peripheral access, a right IJ line was placed for labs and infusing medications. In the ED, labs were remarkable for leukocytosis of 14.45 with neutrophilic predominance. Imaging showed concern for diffuse soft tissue swelling of the of the distal right forearm, wrist and hand, andpossible cellulitis of the base of the first proximal phalanx. However, patient was not able to get an MRI due to history of chronic broken off needle in her left groin. Notably, her CT of the right upper extremity from the outside hospital demonstrated fluid around theflexor tendons in the carpal tunnel. She was seen by orthopedics who recommended right upper extremity nonweightbearing status with a volar resting splint, and to continue IV antibiotic biotics with noacute operative intervention. At this time, given in involvement of all 5 digits, orthopedics of less concerned about flexor tenosynovitis. On interview today patient reports to us that she has been using cocaine (smoke not inject) recentlyto help her manage with her hand pain. She denies any fevers, fatigue, nausea or chills at home. Sheis frustrated that she has had to come to [place] to seek care, but hopes she is in the right place. Reports she receives her Suboxone (on taper bc wants to get off, decreased to 4+2 QAM about a month ago) for from the [facility] clinic Denies any recent IVDU including in right upper extremity. Denies trauma including around nail of the upper extremity and denies soaking in any water. Reports her UPT was negative at [facility]. History of pseudomonas from a RLE culture. UDS positive for cocaine prior to transfer. Interested in having and 9 year old daughter visit. Review of Systems A complete 10 point ROS was performed and pertinent positive and negative findings listed in HPI, otherwise negative. Past Medical History: Diagnosis Date ??? Bacteremia due to Staphylococcus aureus ??? Cocaine abuse ([facility]) ??? DVT (deep venous thrombosis) ([facility]) ([facility]) ??? Hepatitis C antibody positive in blood ??? Iron deficiency anemia ??? Polysubstance abuse ([facility]) ([facility]) ??? Retained foreign body left groin, unsuccessful exploratory surgery ??? Skin abscess Past Surgical History: Procedure Laterality Date ??? ABDOMINAL EXPLORATION SURGERY ??? BELOW KNEE AMPUTATION Right ??? ECTOPIC SURGERY ??? HAND SURGERY ??? 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 Ramos, for infected pseudoaneurysm Social History Tobacco Use ??? Smoking status: Never Smoker ??? Smokeless tobacco: Never Used Substance Use Topics ??? Alcohol use: No Family History Problem Relation Age of Onset ??? Diabetes Father ??? Diabetes Paternal Aunt ??? Diabetes Paternal Grandfather Not currently on antibiotics and completed anticoagulation for previous DVT No Known Allergies Objective Vitals Temp: [36.5 ??C (97.7 ??F)-37.7 ??C (99.9 ??F)] , Heart Rate: [88 BPM-101 BPM] , Pulse: [85-110] , Resp: [9-20] , BP: (103-145)/(51-97) , SpO2: [85 %-100 %] , Numeric Pain Level (Scale 1-10): 0 Weight: Weight : 54.4 kg (120 lb) Body mass index is 19.97 kg/m??. Physical Exam General appearance: alert, fatigued, cooperative, no distress Head: Normocephalic, without obvious abnormality, atraumatic Eyes: conjunctivae/corneas clear. PERRL, EOM's intact. Fundi benign Nose: Nares normal. Septum midline. Mucosa normal. No drainage or sinus tenderness., no discharge Throat/Mouth: lips, mucosa, and tongue normal; teeth and gums normal Lungs: clear to auscultation bilaterally, non labored breathing Heart: regular rate and rhythm, S1, S2 normal, no murmur, click, rub or gallop Abdomen: soft, non-tender; bowel sounds normal; no masses, no organomegaly Mental Status: awake and alert; oriented to person, place, and time Extremities: erythema and consistent R arm swelling from proximal wrist and extending distally to involve all 5 fingers. Tender to palpation diffusely. Intact sensation throughout. Pulses: 2+ and symmetric Skin: Diffuse erythema wrapping around R wrist into fingers Labs I have personally reviewed Recent Labs 04/22/21 1639 WBC 14.45* RBC 3.56* HGB 9.9* HCT 32.0* MCV 90 MCH 27.8 MCHC 30.9* PLT 135* NEUTROABS 12.43* Recent Labs 04/22/21 1639 NA 141 K 3.0* CL 105 CO2 24 BUN 7* CREATININE 0.65 CALCIUM 8.7 Imaging XR FOOT LEFT 3 OR MORE VIEWS Result Date: 04/22/2021 1. Questionable cortical irregularity and focal osteopenia along the base of the first proximal phalanx. This could reflect osteomyelitis in the appropriate clinical setting. A dedicated MRI with contrast could be obtained for further evaluation. 2. Soft tissue edema overlying the dorsal forefoot. XR HAND RIGHT 3 OR MORE VIEWS, XR WRIST RIGHT 3 OR MORE VIEWS, XR FOREARM RIGHT 2 VIEWS Result Date:04/22/2021 Diffuse soft tissue swelling of the distal right forearm, wrist, and hand. Assessment Lindsay Jean Baptiste is a 40 y.o. female with a PMHx significant for osteomyelitis status post right BKA, IVDU, opioid use disorder and chronic foot ulcers presents from [facility] for concerns for worsening R arm cellulitis and need for possible surgical intervention. Patient reports right hand swelling and redness for about 3 days. Found to have diffuse soft tissue swelling on imaging with no acute concerns for intervention per Orthopedics. Will plan to continue IV abx for management with serial physicalexaminations per Orthopedics. Plan Sepsis R arm cellulitis - Orthopedics consulted in ED, appreciate recommendations - Plan to continue IV Vancomycin Q12hrs and Ceftriaxone Q24hrs Elevate - Pain regimen: Suboxone as below, and Tylenol 650 mg Q6hrs PRN anticipate will need additional opiates in acute phase - Follow-up OSH blood clxs - Monitor fever curve - Daily CBCs with diff - Plan for repeat blood clx for any new concerns of fevers or worsening leukocytosis #History of Raynaud's disease - Will need med rec if patient still taking [employer] Gabapentin, patient not able to confirm on initial assessment #Opoid use disorder - Regularly gets Suboxone from [facility] clinic. UDS at OSH positive for cocaine use. - Plan to re-start Suboxone 6-1.5 mg once daily - Plan for inpatient substance use treatment algorithm: - UDS samples PRN - Consult pharmacy for med review - Cover all IVs at all time Provided patient with hospital OUD agreement to review to be signed later this morning with provider VTE Prophylaxis Seqential Compression Device Code: Prior Discharge Plan Home or self care Consults None Admission status Inpatient admission due to anticipated duration of hospitalization is two midnights or greater due to R arm cellulitis. Patient seen and discussed with Dr. Luz Chavarria. Maribel Wells DO 04/23/2021 4:38 ATTENDING ATTESTATION Date of service: 04/23/2021 I have interviewed and examined the patient. I personally reviewed laboratories studies, radiographic study reports, and prior records. I discussed the case with Dr. Perla (triage hospitalist and Dr. Wells (medicine resident). I agree with the findings and plan of care as documented in the note above except as noted with changes in blue. Anticipate require inpatient length of stay greater than two midnights. Reviewed CXR and central line in place and ok to use. Dressing needs to be replaced and discussed with nursing. Can attempt PIV but has required central lines in past for access, multiple attempts for access prior to transfer. Luz Chavarria MD Hospitalist 04/23/2021 19:23 documented in this encounter Consult Notes Nya Skaggs MD - 05/04/2021 0925 EST Infectious Disease Progress Note Patient: Lindsay Jean Baptiste : 1980 Service: Family medicine Date of Admission: 04/22/2021 Today's Date: 05/04/21; 9:25 Chief Complaint: Right UE cellulitis, abscess; leukopenia 24 Hour Events: Irrigation debridement of right hand with closure by orthopedics. Subjective: No acute complaints. She had a nerve block for her ortho procedure yesterday that helpedsignificantly with the pain. She has no fevers, chills, headache, dyspnea, chest pain, ab pain, dysuria, diarrhea, skin changes. The wound on her foot has been crusting over on the margins of the wound. Known osteo left great toe (positive bone scan per patient), has plans for amputation once acute issues resolve. Review of Systems: 10-point review of systems is negative except as mentioned above Vital Signs Temp: [36.2 ??C (97.1 ??F)-36.7 ??C (98.1 ??F)] Heart Rate: [57 BPM-76 BPM] BP: (88-121)/(52-67) Resp: [10-20] SpO2: [94 %-99 %] Intake/Output Summary (Last 24 hours) at 05/04/2021 09 Last data filed at 05/04/2021 0600 Gross per 24 hour Intake 957.6 ml Output ??? Net 957.6 ml Physical Exam 05/04/2021 9:25 General: Well appearing. In no acute distress. HEENT: No conjunctival icterus or pallor. No oropharyngeal erythema or exudate. Chest: Lungs clear to auscultation bilaterally. No rales, rhonchi, wheezes. CV: Normal rate and regular rhythm. Normal S1 and S2. No murmurs, gallops, or rubs. 2+ radial pulses. : No briceño present. Neuro: Alert and oriented x4. Face symmetrical without dysarthria. Moving all extremities spontaneously. Full strength throughout. Extremities: R wrist wrapped in bandage with full sensation in tact in hands and fingers, non tenderto palpation, no erythema, no induration. R BKA. L 1st and 2nd toes with open, deep, non bleeding ulcers over dorsal surface extending from PIP to MCP. (picture in chart). 1+ pedal pulses of L foot, noedema, no cyanosis or cool to touch. Well healed track burns and linear scars on b/l forearms. Dressing removed. Incision is well approximated. Old sanguinous drainage. Hand edematous. No erythema. ROMlimited by edema. NT to palpation. No fluctuance. Psych: Appropriate mood and affect. Access: [facility] Labs Recent Labs 05/03/21 0524 05/04/21 0552 WBC 2.37* 1.95* RBC 3.41* 3.29* HGB 9.7* 8.9* HCT 29.4* 29.1* PLT 236 218 MCV 86 88 MCH 28.4 27.1 MCHC 33.0 30.6* NEUTROABS 1.51* 1.11* Recent Labs 05/03/21 0525 05/04/21 0551 NA 137 137 K 4.2 4.2 CL 98 99 CO2 29 29 BUN 21 17 CREATININE 0.69 0.59 CALCIUM 9.0 8.5 Imaging XR FOOT LEFT 3 OR MORE VIEWS Result Date: 04/22/2021 1. Questionable cortical irregularity and focal osteopenia along the base of the first proximal phalanx. This could reflect osteomyelitis in the appropriate clinical setting. A dedicated MRI with contrast could be obtained for further evaluation. 2. Soft tissue edema overlying the dorsal forefoot. I have personally reviewed the images and the above interpretation and agree with the findings. XR FOREARM RIGHT 2 VIEWS Result Date: 04/22/2021 Diffuse soft tissue swelling of the distal right forearm, wrist, and hand. I have personally reviewed the images and the above interpretation and agree with the findings. XR HAND RIGHT 3 OR MORE VIEWS Result Date: 04/22/2021 Diffuse soft tissue swelling of the distal right forearm, wrist, and hand. I have personally reviewed the images and the above interpretation and agree with the findings. XR WRIST RIGHT 3 OR MORE VIEWS Result Date: 04/22/2021 Diffuse soft tissue swelling of the distal right forearm, wrist, and hand. I have personally reviewed the images and the above interpretation and agree with the findings. TTE complete with Doppler 05/03/2021 ??? Left Ventricle: The left ventricular cavity was normal in size. Left ventricular systolic function was normal with an ejection fraction of 60-65%. The estimated left ventricular ejection fraction by 3-dimensional volume rendering was 63 %. ??? Right Ventricle: The right ventricular cavity was normal in size. Right ventricular systolic function was normal. Medications/Anti-infectives: -Vancomycin 04/22-04/24 -Cefazolin 2 g IV 04/27 x 1, 04/30 x 1 -Ceftriaxone 2 g IV daily 04/22-now Microbiology 04/23/2021 COVID-19 PCR: Negative 04/23/2021 fluid from soft tissue: Few Streptococcus dysgalactiae 04/26/2021 COVID-19 nasopharynx: Negative 04/27/2021 soft tissue: Rare Streptococcus dysgalactiae 04/29/2021 COVID-19 nasopharynx: Negative 05/02/2021 blood culture x2: No growth to date Assessment: Lindsay Jean Baptiste is a 40 y.o. female with a PMHx significant for IVDU, R BKA, chronic foot ulcers, opioid use who was admitted for right carpal tunnel cellulitis now status post multiple irrigationsand washouts growing strep dysgalactiae and newly developing leukopenia. 1. Leukopenia ANC 1,111 with continual decrease over the past week. This fits the time course of her ceftriaxone therapy during this hospital. Ceftriaxone has a 2% side effect profile of leukopenia per up-to-date. 2. Strep dysgalactiae infection of right carpal tunnel -Open carpal tunnel release and irrigation debridement of the right hand on 04/[address] Bansal -Irrigation and debridement of the right hand with progressive closure on 04/27/[address] Bansal -Irrigation and debridement of the right hand with progressive closure on 04/30/[address] Cuevas -Irrigation debridement of the right hand with closure on 05/03/[address] Hughes 3. Chronic left dorsal hallux and left second toe ulcer Managed by outside hospital podiatry team. Patient followed closely by podiatry [place] who plans to do an amputation of the great toe upon her return. Low concern for new infectious source at this time. Dermatology consulted this admission with concern for pyoderma gangrenosum, which is a diagnosis of exclusion. Does not appear as if biopsies were taken during the last procedure 4. Status post right BKA secondary to osteomyelitis 5. IVDU, opioid use disorder: Patient on Suboxone. 6. Retained needle in left groin 7. Right femoral artery pseudoaneurysm aneurysm, MSSA 2017. Treated with bypass 8. HCV antibody positive in the past, HCV viral load undetectable 2019 9. HIV fourth-generation antibody antigen negative March 2021 10. March 2021: Hep A total antibody positive, hep A IgM negative, hepatitis B surface antibody positive, hepatitis B surface antigen negative, hepatitis B surface core antibody negative. Recommendations: 1. Stop ceftriaxone due to concern for leukopenia 2. Start amoxicillin 500 mg PO TID for 14 days from last operation: 05/03/2021-05/16/2021 3. Follow-up with school janitor in [place] upon discharge who plans to do amputation of left great toe per her report. 4. Needs repeat CBC in 2-3 days. 5. We will arrange OP ID f/u. Recommendations discussed with primary team Patient seen and examined with attending, Dr. Giles Bautista MD 05/04/2021 9:25 Internal Medicine, PGY-2 [id number] ID Attending: Patient seen, examined and discussed with Dr. Bautista. Labs, microbiology personally reviewed. Agree with findings, impression and suggestions as noted above, my additions in italics. Abscess right wrist now s/p serial debridement and closure. Appears to be progressing well. Favor transition to PO antibiotic to complete her course of therapy. Given leukopenia, would avoid cephalosporins and favor amoxicillin. May need non beta lactam treatment if counts further decrease (could consider levofloxacin 500 mg daily as alternate). Will arrange OP ID f/u in 1-2 weeks. Will need repeat CBC in 2-3 days. CNtines, MD Ramila Mcnamara MD - 05/02/2021 1640 ESTAssociated Order(s): CONSULT DERMATOLOGY Images from the original note were not included. Dermatology Inpatient Consult History and Physical Date of Admission: 04/22/2021 Attending Requesting Consult: Dr. Susan Graham Patient's PCP: Ratna Olivas Chief Complaint: Ulcers on the left foot HPI: Lindsay Jean Baptiste is a 40 y.o. female with a past medical history significant for osteomyelitis s/p right??BKA, IVDU,??opioid use disorder??and chronic foot ulcers who is currently admitted for sepsis secondary to infection of the right arm with deep space carpal tunnel involvement. Dermatologywas consulted for evaluation of ulcers on the left foot. She reports that she initially developed anulcer on her left st ~5 years ago which has since healed. About 2 years ago, she developed ulcers on her left great toe and left second toe which have been persistent. She was previously diagnosed with pyoderma gangrenosum for which she underwent treatment with oral prednisone without much improvement. The ulcers have never fully healed and are extremely painful. She denies any history of inflammatory bowel disease or other autoimmune diseases. Allergies: Other - see comments Medications: acetaminophen, 1,000 mg, oral, Q12H buprenorphine-naloxone, 3 Film, sublingual, DAILY [START ON 05/03/2021] ceFAZolin, 2 g, intravenous, PLUGGER MAN TO O.R. cefTRIAXone (ROCEPHIN) IVPB (2 g premade bag), 2,000 mg, intravenous, Q24H ferrous gluconate, 324 mg, oral, BID (BREAKFAST/DINNER) gabapentin, 600 mg, oral, DAILY (BREAKFAST) polyethylene glycol 3350, 17 g, oral, DAILY senna, 2 Tablet, oral, QHS Objective: VS: BP 107/58 (BP Cuff Location: Left arm, BP Patient Position: Semi fowlers) Pulse 79 Temp 37.1??C (98.7 ??F) (Oral) Resp 16 Ht 165.1 cm (65) Wt 54.4 kg (120 lb) SpO2 98% BMI 19.97 kg/m?? Physical Exam: Cutaneous focused exam of the left foot was performed.The examination was normal with the addition of the following comments: - Left foot is dressed with Kerlix dressing. Patient refused removal of dressing due to pain. - Photograph taken on 04/25/21 demonstrated well-circumscribed ulcerations on the left great toe andleft second toe with dusky undermined borders Labs: CBC: Lab Results Component Value Date WBC 4.30 05/02/2021 RBC 3.24 (L) 05/02/2021 HGB 8.9 (L) 05/02/2021 HCT 29.2 (L) 05/02/2021 MCV 90 05/02/2021 MCH 27.5 05/02/2021 MCHC 30.5 (L) 05/02/2021 PLT 220 05/02/2021 NEUTROABS 3.31 05/02/2021 BMP: Lab Results Component Value Date NA 135 (L) 05/02/2021 K 4.0 05/02/2021 CL 98 05/02/2021 CO2 29 05/02/2021 BUN 19 05/02/2021 CREATININE 0.64 05/02/2021 CALCIUM 8.9 05/02/2021 MG 1.8 04/23/2021 PHOS 3.4 06/29/2017 LABALBU 3.2 (L) 04/23/2021 Coagulation: Lab Results Component Value Date INR 1.0 06/26/2017 LFT: Lab Results Component Value Date TBIL <0.5 04/23/2021 ALKPHOS 114 04/23/2021 AST 24 04/23/2021 ALT 27 04/23/2021 Assessment and Recommendations: Chronic ulcers on the left foot: History and exam findings are concerning for pyoderma gangrenosum. However, this is a diagnosis of exclusion, and infection must be ruled out. Although pyoderma gangrenosum may be associated with autoimmune conditions such as IBD or RA, underlying malignancy, and chronic infection (hepatitis C, HIV), many cases are idiopathic. - Recommended biopsy of one of the ulcers today at bedside, but patient declined due to pain. - Since patient is going to the OR for I&D of the right arm, recommend that the surgery team obtain punch biopsies of one of the ulcers on the left foot at that time. Recommend obtaining one 4 mm punch biopsy for H&E and two 4 mm punch biopsies for bacterial, fungal, and AFB cultures. Biopsiesshould be taken from the ulcer edge. - For wound care, recommend washing the ulcers with Vashe solution daily. Ulcers should be covered with a thick layer of Vaseline, followed by application of non-adherent Telfa dressing. The foot should then be wrapped in Kerlix. - Will make further recommendations pending results. - Discussed patient with Dr. Joya Camarena at 1810 on 05/02/2021 Thank you for involving us in this patient's care. Please call with any questions or concerns. Malik Cain MD Dermatology, PGY-3 #[id number] 05/02/2021 19:31 Attestation Statement: I saw and examined the patient with the resident/fellow. I agree with the findings and plan of care documented in the resident's/fellow's note. Ramila Mcnamara MD Dermatology [facility] Eren Garner, DO - 04/28/2021 0907 EST INFECTIOUS DISEASES CONSULT SERVICE PROGRESS NOTE Patient: Lindsay Jean Baptiste : 1980 Service: Family medicine Date of Admission: 04/22/2021 Today's Date: 04/28/21 CHIEF COMPLAINT: R arm pain improved compared to yesterday. Weekly notable events: -23 April open carpal tunnel release, purulent fluid growing GCS -27 April, return to the OR for washout. No drains remain, will try to clarify with Ortho if she has been closed. Current antibiotics Ceftriaxone 22 April-present Prior antibiotics Vancomycin 22 April-24 April Subjective: No fevers, chills or night sweats. Pain seems much better controlled compared to yesterday. No new orthopedic complaints REVIEW OF SYSTEMS: 10-point review of systems is negative except as mentioned above Please refer to the initial ID Consult Note obtained on 23 April. For Medical/Family/Social History. I have reviewed this information and there is no significant change from prior. ALLERGIES: Allergies Allergen Reactions ??? Other - See Comments Pt allergic to soap in sheets, red raised rash on back MEDICATIONS: Reviewed in JUN. Pertinent for Current Facility-Administered Medications Medication Route Frequency ??? acetaminophen (TYLENOL) tablet 500 mg oral Q6H ??? buprenorphine-naloxone (SUBOXONE) 2-0.5 mg sublingual film 3 Film sublingual DAILY ??? cefTRIAXone (ROCEPHIN) 2,000 mg in sodium chloride (NS MBP) 50 mL IVPB intravenous Q24H ??? gabapentin (NEURONTIN) capsule 600 mg oral DAILY (BREAKFAST) ??? HYDROmorphone (PF) (DILAUDID) 0.5 mg/0.5 mL syringe ??? HYDROmorphone 1 mg/ml (DILAUDID) LAPIDARIST syringe, 30 ml intravenous CONTINUOUS ??? ibuprofen (MOTRIN) tablet 400 mg oral Q6H PRN ??? ketAMINE (KETALAR) 250 mg in NaCl 0.9% 25 mL syringe intravenous CONTINUOUS ??? lactated ringers (LR) infusion intravenous CONTINUOUS ??? lidocaine (PF) 10 mg/mL (1 %) injection 2 mg intradermal PRN ??? polyethylene glycol 3350 (MIRALAX) packet 17 g oral DAILY ??? senna (SENOKOT) tablet 2 Tablet oral QHS ??? tiZANidine (ZANAFLEX) tablet 4 mg oral Q8H PRN PHYSICAL EXAM: VS: BP 136/64 (BP Cuff Location: Left arm, BP Patient Position: Semi fowlers) Pulse 77 Temp 36.5??C (97.7 ??F) (Oral) Resp 20 Ht 165.1 cm (65) Wt 54.4 kg (120 lb) SpO2 99% BMI 19.97 kg/m?? GENL: pleasant, NAD EXTR: Right upper extremity with surgical dressings intact. Dressings on the left great toe as well. SKIN: no rashes, no jaundice NEURO: awake, alert and oriented x3 PSYCH: non-anxious, normal affect ACCESS: Peripheral IV LABORATORY: Reviewed in detail in PRISM. WBC/RBC/HGB/HCT/PLT/ANC9.14/3.41/9.6/30.0/292/6.50 (04/28 703) Estimated Creatinine Clearance: 99.3 mL/min (by C-G formula based on SCr of 0.66 mg/dL). MICROBIOLOGY DATA: Reviewed in detail in PRISM. Pertinent for: 23 April Covid negative 23 April fluid from soft tissue few group C strep 27 April soft tissue Gram stain negative, culture pending IMAGING DATA: I have independently reviewed the available imaging. 22 April right forearm, right hand, right wrist Diffuse soft tissue swelling of the distal right forearm, wrist, and hand. 22 April left foot x-ray 1. Questionable cortical irregularity and focal osteopenia along the base of the first proximal phalanx. This could reflect osteomyelitis in the appropriate clinical setting. A dedicated MRI with contrast could be obtained for further evaluation. 2. Soft tissue edema overlying the dorsal forefoot. From orthopedic notes -CT of the right upper extremity from outside hospital demonstrates no abscess formation. Fluid within the flexor tendon sheaths within the carpal tunnel. ?? ASSESSMENT: 1. GCS infection of right carpal tunnel. Patient status post incision and drainage 23 April. Purulent fluid growing group C strep. Repeat washout 27 April, no drains remain but we will try to clarify with Ortho if they have closed everything. Patient tolerating ceftriaxone without problems, afebrile, normal WBC. 2. 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 Patient followed closely by podiatry [place] who plans to do an amputation of the great toe upon her return. Patient happy with this plan. 3. Status post right BKA secondary to osteomyelitis 4. IVDU, opioid use disorder. She denies recent IVDU but does acknowledge using (smoking) cocaine tomanage hand pain. Patient on Suboxone. 5. Retained needle in left groin 6. 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 HCV antibody positive in the past, HCV viral load undetectable 2019 8. 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 HIV fourth-generation antibody antigen negative March 2021 10. March 2021: Hep A total antibody positive, hep A IgM negative, hepatitis B surface antibody positive, hepatitis B surface antigen negative, hepatitis B surface core antibody negative. RECOMMENDATIONS: 1. Continue ceftriaxone for now. Once patient is confirmed closed and ready to go home from Ortho standpoint, can convert to Cefpodoxime 200 mg p.o. twice daily. In light of deep carpal tunnel infection, would plan for 4 weeks total of antibiotics. As long as she continues to do well, start day 23 April, stop day 21 May. Patient lives in [place] and can follow-up with her PCM 2. Follow-up with school janitor in [place] upon discharge who plans to do amputation of left great toe per her report. Eren Tavarez DO Pager [phone] Infectious Diseases Attending Eren Garner DO - 04/26/2021 1426 EST INFECTIOUS DISEASES CONSULT SERVICE PROGRESS NOTE Patient: Lindsay Jean Baptiste : 1980 Service: Family medicine Date of Admission: 04/22/2021 Today's Date: 04/26/21 CHIEF COMPLAINT: None, patient looking forward to OR tomorrow Weekly notable events: -23 April open carpal tunnel release, purulent fluid growing GCS Current antibiotics Ceftriaxone 22 April-present Prior antibiotics Vancomycin 22 April-24 April Subjective: No fevers, chills or night sweats. Pain seems well controlled. No new orthopedic complaints REVIEW OF SYSTEMS: 10-point review of systems is negative except as mentioned above Please refer to the initial ID Consult Note obtained on 23 April. For Medical/Family/Social History. I have reviewed this information and there is no significant change from prior. ALLERGIES: No Known Allergies MEDICATIONS: Reviewed in JUN. Pertinent for Current Facility-Administered Medications Medication Route Frequency ??? acetaminophen (TYLENOL) tablet 500 mg oral Q6H ??? buprenorphine-naloxone (SUBOXONE) 2-0.5 mg sublingual film 3 Film sublingual DAILY ??? [START ON 04/27/2021] ceFAZolin (ANCEF) syringe 2 g intravenous PLUGGER MAN TO O.R. ??? cefTRIAXone (ROCEPHIN) 2,000 mg in sodium chloride (NS MBP) 50 mL IVPB intravenous Q24H ??? gabapentin (NEURONTIN) capsule 600 mg oral DAILY (BREAKFAST) ??? HYDROmorphone (DILAUDID) liquid 4-6 mg oral Q3H PRN ??? HYDROmorphone (PF) (DILAUDID) 0.5 mg/0.5 mL syringe 0.5 mg intravenous Q4H PRN ??? ibuprofen (MOTRIN) tablet 400 mg oral Q6H PRN ??? ketAMINE (KETALAR) 250 mg in NaCl 0.9% 25 mL syringe intravenous CONTINUOUS ??? lactated ringers (LR) infusion intravenous CONTINUOUS ??? lidocaine (PF) 10 mg/mL (1 %) injection 2 mg intradermal PRN ??? polyethylene glycol 3350 (MIRALAX) packet 17 g oral DAILY ??? senna (SENOKOT) tablet 2 Tablet oral QHS ??? tiZANidine (ZANAFLEX) tablet 4 mg oral Q8H PRN PHYSICAL EXAM: VS: BP 125/68 (BP Cuff Location: Left arm, BP Patient Position: Semi fowlers) Pulse 75 Temp 36.9??C (98.4 ??F) (Oral) Resp 17 Ht 165.1 cm (65) Wt 54.4 kg (120 lb) SpO2 97% BMI 19.97 kg/m?? GENL: pleasant, NAD EXTR: Right upper extremity with surgical dressings intact. SKIN: no rashes, no jaundice NEURO: awake, alert and oriented x3 PSYCH: non-anxious, normal affect ACCESS: Peripheral IV LABORATORY: Reviewed in detail in PRISM. WBC/RBC/HGB/HCT/PLT/ANC7.22/3.34/9.4/28.9/233/5.15 (04/26 618) Estimated Creatinine Clearance: 97.8 mL/min (by C-G formula based on SCr of 0.67 mg/dL). MICROBIOLOGY DATA: Reviewed in detail in PRISM. Pertinent for: 23 April Covid negative 23 April fluid from soft tissue few group C strep IMAGING DATA: I have independently reviewed the available imaging. 22 April right forearm, right hand, right wrist Diffuse soft tissue swelling of the distal right forearm, wrist, and hand. 22 April left foot x-ray 1. Questionable cortical irregularity and focal osteopenia along the base of the first proximal phalanx. This could reflect osteomyelitis in the appropriate clinical setting. A dedicated MRI with contrast could be obtained for further evaluation. 2. Soft tissue edema overlying the dorsal forefoot. From orthopedic notes -CT of the right upper extremity from outside hospital demonstrates no abscess formation. Fluid within the flexor tendon sheaths within the carpal tunnel. ?? ASSESSMENT: 1. GCS infection of right carpal tunnel. Patient status post incision and drainage 23 April. Purulent fluid growing group C strep. Per notes, patient scheduled for repeat I&D with potential wound closure 27 April. She is doing well with ceftriaxone. Her leukocytosis is resolved and she remains afebrile. 2. 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 3. Status post right BKA secondary to osteomyelitis 4. IVDU, opioid use disorder. She denies recent IVDU but does acknowledge using (smoking) cocaine tomanage hand pain. Patient on Suboxone. 5. Retained needle in left groin 6. 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 HCV antibody positive in the past, HCV viral load undetectable 2019 8. 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 HIV fourth-generation antibody antigen negative 2018 RECOMMENDATIONS: 1. Continue ceftriaxone as patient awaits repeat incision and drainage and potential wound closure tomorrow. Duration of therapy depends on how patient looks in the OR tomorrow and her continued clinical course. Would prefer to send home on a p.o. regimen. 2. Repeat HIV antibody with next blood draw 3. Hepatitis A antibody total next blood draw 4. Hepatitis B surface antigen, hepatitis B surface antibody, hepatitis B core antibody with next blood draw Eren Tavarez DO Pager [phone] Infectious Diseases Attending Aubrey Mar MD - 04/24/2021 1246 EST Infectious Disease Consult Note Admit Date: 04/22/2021 Date of Service: 04/24/2021 Requesting Physician: Dr. Zhen Beavers Reason for Consult: R arm cellulitis HPI: (include onset, location, quality, severity, duration, timing, associating symptoms) (Modified from Dr. Wells's and Dr. Huerta's notes) Ms Jean Baptiste is a 40 yr old woman with a PMH notable for osteomyelitis status post right BKA, IVDU, opioid use disorder, HCV, and L hallux and 2nd toe wound (followed by outside hospital podiatry), R femoral artery infected pseudoaneurysm (s/p bypass 2017), retained needle in left groin, left upper extr emity median and ulnar nerve palsy from a tourniquet injury (~2008) who was in her usual state of health until Approximately 3 days prior to her admission when she develop R hand and arm swelling and redness with pain. She was seen at [facility] and a CT showed fluid around the flexor tendons in the carpal tunnel but no cem abscess. She was evaluated by the Ortho service who recommended IV antibiotics and a non-weight bearing volar resting splint. She was placed on Ceftriaxone. On hospital D#2 whe had increasing pain with increasing numbness in her middle and index finger andhad persistent circumferential swelling of her hand extending proximal to the wrist and due to the concern of the development of an acute carpal tunnel syndrome she was taken to the OR where she underwent a R open carpal tunnel release (04/23). Operative findings included purulence that tracked both proximally and distally and into the hyperthenar space. The wound was copiously irrigated using 9 L of normal saline. The incision was left open given the gross infection with plan to return for a formal incision and drainage and closure. OR cultures subsequently grew Strep dysgalactiae. We are now asked to evaluate for additional diagnostic and therapeutic recommendations. Review of Systems: A ten point review of systems was performed and negative except for the following: no fevers, chills, sweats, no chest pain, SOB, cough, N, V, abdominal discomfort, diarrhea, no other joint complaints Past Medical History: has a past medical history of Bacteremia due to Staphylococcus aureus, Cocaineabuse ([facility]), DVT (deep venous thrombosis) ([facility]) ([facility]), Hepatitis C antibody positive in blood, Iron deficiency anemia, Polysubstance abuse ([facility]) ([facility]), Retained foreign body, and Skin abscess. Past Surgical History: has a past surgical history that includes Ectopic surgery; Abdominal exploration surgery; vascular surgery (Right, 06/29/2017); below knee amputation (Right); and Hand surgery. Medications: MAR reviewed. Anti-infectives: Ceftriaxone 2 g day D3 / Vancomycin D3 Allergies: Patient has no known allergies. Family History: Ca, DM, MS Social History: Lives in [place] with her daughter, but father involved, on disability since her R BKA, no Tob, no ETOH, quit IVDU 2 yrs ago, 1 dog Vital Signs: BP 109/61 (BP Cuff Location: Left arm, BP Patient Position: Semi fowlers) Pulse 83 Temp 36.7 ??C (98.1 ??F) (Oral) Resp 16 Ht 165.1 cm (65) Wt 54.4 kg (120 lb) SpO2 93% BMI 19.97 kg/m?? Exam: Lying in bed in NAD< awake, alert appropriate responsive Head/Neck: no scleral icterus, no oral lesions Heart: RRR with soft systolic murmur at R and L 2nd ICS heard best at L 2nd ICS Lungs: Clear ant/posterior lung gallego Abdomen: soft, nontender, nondistended, no masses appreciated : no CVAT Lymph Nodes: no submandibular, cervical, supraclavicular LN, small, mobile, nontender axillary LN on L Skin: livedo reticularis on legs Musculoskeletal: No other joint swelling or erythema, R BKA Extremities: R hand in surgical dressing/splint - pictures in chart from prior to surgery, ulcers on L great and 2nd toe, L hand in finger flexion from prior surgery Neuro: grossly normal Catheters: R IJ clean dry and intact Data Review: Laboratory data reviewed. Pertinent positives include: Labs: WBC/RBC/HGB/HCT/PLT/ANC12.01/3.30/9.3/28.7/191/10.02 (04/24 0614) Microbiology: 04/22 - [facility] - BC X 2 - neg to date 04/23 - COVID - neg 04/23 - polys, gram positive cocci cx - Strep dysgalactiae Other: Radiological Studies: I have independently visualized the images of the wrist/arm that show diffuse soft tissue swelling o forearm, wrist and hand Assessment: Ms Jean Baptiste is a 40 yr old woman with a PMH notable for osteomyelitis status post right BKA, IVDU, opioid use disorder, HCV, and L hallux and 2nd toe wound, R femoral artery infected pseudoaneurysm (s/p bypass 2017), retained needle in left groin, LUE median and ulnar nerve palsy from a tourniquet injury (~2008) now with a Strep dysgalactiae R hand infection with negative BC at [facility] to date suggesting that this may not be related to a heart valve infection. These organisms were previously considered Group C and G strep and are functionally very similar to Group A strep bacteria and cause many of the same syndromes. The may cause single organism or polymicrobial infe ctions. PCN is generally the drug of choice but 3rd generation cephalosporins are effective as well.For now would continue with Ceftriaxone alone but will need to monitor cultures to assure that additional bacteria don't grow that might alter the antibiotic choice. Recommendations: Continue with Ceftriaxone 2 grams once per day for now D/C Vancomycin Discussed with primary care team Aubrey Ugarte MD 04/24/2021 12:46 Ruthie Main DO - 04/23/20212011 EST ACUTE PAIN SERVICE INITIAL INPATIENT CONSULTATION Name: Lindsay Jean Baptiste Age: 40 y.o. Patient Location: PACU Requesting attending physician: Zhen Beavers II* Anesthesiology attending: Rosie Myers MD Reason for consult: acute postoperative pain CHIEF COMPLAINT: right upper extremity pain HISTORY OF PRESENT ILLNESS: A consult was requested by Zhen Beavers II*. This is a 40 y.o. female w/ PMH substance use disorder (IVDU, opioids, cocaine) on suboxone c/b peripheral vascular disease (right obturator [id number] for infected pseudoaneurysm followed by right BKA 2018), hepatitis C, DVT, and depression now POD# 0 s/p open carpal tunnel releaes for increased right hand swelling/redness/pain x 3d. APS consulted for assistance with postoperative pain management. Patient currently sedated in PACU, unable to perform ROS. Location: [facility] REVIEW OF SYSTEMS: unable to perform due to sedation. Constitutional: Eye Mouth/Ent Cardiovascular: Yes No Yes No Yes No Yes No [] [] Chills [] [] Blurry vision [] [] Dry mouth [] [] Chest Pain/Pressure [] [] Fevers [] [] Double vision [] [] Increased salivation [] [] Palpitations [] [] Hallucinations [] [] Photophobia [] [] [] [] [] [] Nightmares [] [] Poor sleep Respiratory: Gastrointestinal: : [] [] Sedation Yes No Yes No Yes No [] [] [] [] Painful respirations [] [] Abdominal pain [] [] Difficulty urinating [] [] Shortness of breath [] [] Constipation [] [] Bladder spasms Neurological: [] [] [] [] Diarrhea [] [] Yes No [] [] Nausea [] [] Headache Musculoskeletal: [] [] Tolerating orals Integumentary: [] [] Lower extremity numbness Yes No [] [] Vomiting Yes No [] [] Lower extremity weakness [] [] Backache [] [] [] [] Itching [] [] Neck pain [] [] Muscle aches [] [] Rash [] [] Tinnitus [] [] Muscle spasms Psychiatric [] [] [] [] [] [] Weakness [] [] Anxious [] [] [] [] Depressed mood Hematologic: Allergic/Immunologic: [] [] Yes No Yes No Endocrine: [] [] Easy bleeding/bruising [] [] Hives [] [] Decreased libido [] [] Blood clots [] [] Immune deficiency [] [] Weight loss [] [] PAST MEDICAL/SOCIAL HISTORY: Past Medical History: Diagnosis Date ??? Bacteremia due to Staphylococcus aureus ??? Cocaine abuse (HCC) ??? DVT (deep venous thrombosis) ([facility]) (HCC) ??? Hepatitis C antibody positive in blood ??? Iron deficiency anemia ??? Polysubstance abuse ([facility]) (HCC) ??? Retained foreign body left groin, unsuccessful exploratory surgery ??? Skin abscess Past Surgical History: Procedure Laterality Date ??? ABDOMINAL EXPLORATION SURGERY ??? BELOW KNEE AMPUTATION Right ??? ECTOPIC SURGERY ??? HAND SURGERY ??? 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 Ramos, for infected pseudoaneurysm FAMILY HISTORY: non-contributory SOCIAL HISTORY: Social History Tobacco Use Smoking Status Never Smoker Smokeless Tobacco Never Used [place] [employer]ITORING PROGRAM QUERY: VPMS Link Medications: Current Facility-Administered Medications: ??? [JUN Hold] acetaminophen (TYLENOL) tablet 650 mg, 650 mg, oral, Q6H PRN, Gigi Ramos MD, 650 mg at 04/23/21 1654 ??? atropine 0.1 mg/mL syringe 0.5 mg, 0.5 mg, intravenous, PRN, Ginns, Pako, AA ??? [MAR Hold] buprenorphine-naloxone (SUBOXONE) 2-0.5 mg sublingual film 3 Film, 3 Film, sublingual, DAILY, Maribel Wells, , 3 Film at 04/23/21 0819 ??? [JUN Hold] cefTRIAXone (ROCEPHIN) 2,000 mg in sodium chloride (NS MBP) 50 mL IVPB, 2,000 mg, intravenous, Q24H, Maribel Wells, DO ??? [JUN Hold] cyclobenzaprine (FLEXERIL) tablet 10 mg, 10 mg, oral, Daily PRN, Gigi Ramos MD, 10 mg at 04/23/21 1424 ??? diphenhydrAMINE (BENADRYL) injection 12.5 mg, 12.5 mg, intravenous, PRN, Pako Walden, AA ??? fentaNYL citrate (PF) injection 25-50 mcg, 25-50 mcg, intravenous, Q5 MINUTES PRN, Pako Walden, AA ??? [JUN Hold] gabapentin (NEURONTIN) capsule 600 mg, 600 mg, oral, DAILY (BREAKFAST), Gigi Ramos MD ??? HYDROmorphone (DILAUDID) tablet 2-4 mg, 2-4 mg, oral, Q30 MINUTES PRN, Pako Walden, AA ??? [JUN Hold] HYDROmorphone (DILAUDID) tablet 4 mg, 4 mg, oral, Q4H PRN, Gigi Ramos MD, 4mg at 04/23/21 1444 ??? HYDROmorphone (PF) (DILAUDID) 0.5 mg/0.5 mL syringe 0.3-0.5 mg, 0.3-0.5 mg, intravenous, Q10 MINUTES PRN, Pako Walden, AA, 0.5 mg at 04/23/212031 ??? HYDROmorphone 1 mg/ml (DILAUDID) LAPIDARIST syringe, 30 ml, , intravenous, LAPIDARIST, Ruthie Main DO, New Bag at 04/23/212026 ??? ketAMINE (KETALAR) 250 mg in NaCl 0.9% 25 mL syringe, 15 mg/hr, intravenous, CONTINUOUS, Ruthie Main DO, Last Rate: 1.5 mL/hr at 04/23/212032, 15 mg/hr at 04/23/212032 ??? lactated ringers (LR) infusion, , intravenous, PACU CONTINUOUS, Ginns, Pako, AA ??? [JUN Hold] lidocaine (PF) 10 mg/mL (1 %) injection 2 mg, 2 mg, intradermal, PRN, Russell, Maribel, DO ??? metoclopramide (REGLAN) injection 10 mg, 10 mg, intravenous, PRN, Ginns, Pako, AA ??? naloxone (NARCAN) injection 0.2 mg, 0.2 mg, intravenous, PRN, Ginns, Pako, AA ??? ondansetron (PF) (ZOFRAN) injection 4 mg, 4 mg, intravenous, PRN, Ginns, Pako, AA ??? [JUN Hold] vancomycin (VANCOCIN) IVPB 1,000 mg, 1,000 mg, intravenous, Q12H, Zhen Beavers III, MD, 1,000 mg at 04/23/21 1111 Allergies: No Known Allergies PHYSICAL EXAM: BP 119/68 (BP Patient Position: Semi fowlers) Pulse 84 Temp 36.7 ??C (98.1 ??F) (Oral) Resp 18 Ht 165.1 cm (65) Wt 54.4 kg (120 lb) SpO2 99% BMI 19.97 kg/m?? Constitutional: sedated, sleeping, supine Eyes: sclerae anicteric Cardiovascular: noncyanotic, RRR Respiratory: Symmetric bilateral excursion and no increased WOB : Urinary catheter not utilized Musculoskeletal: RUE hand with significant erythema, edema Neuro: sedated LABORATORIES: Covid-19: Lab Results Component Value Date COVID-19 rt-PCR Result Negative 04/23/2021 COVID-19 rt-PCR Result NEGATIVE 05/13/2020 COVID-19 rt-PCR Result NEGATIVE 05/13/2020 CBC: Recent Labs 04/22/21 1639 04/23/21 0650 WBC 14.45* 16.72* RBC 3.56* 3.43* HGB 9.9* 9.9* HCT 32.0* 30.1* MCV 90 88 MCH 27.8 28.9 MCHC 30.9* 32.9 PLT 135* 171 NEUTROABS 12.43* 14.42* BMP: Recent Labs 04/22/21 1639 04/23/21 0650 04/23/21 0920 NA 141 136 136 K 3.0* 2.9* 3.0* CL 105 102 100 CO2 24 27 25 BUN 7* 7* 8* CREATININE 0.65 0.67 0.69 CALCIUM 8.7 8.7 8.4* MG -- 1.8 -- LABALBU -- -- 3.2* LFT: Recent Labs 04/23/21 0920 TBIL <0.5 ALKPHOS 114 AST 24 ALT 27 Cardiac Markers: Recent Labs 04/23/21 0157 CK 102 IMAGING: XR FOOT LEFT 3 OR MORE VIEWS Result Date: 04/22/2021 1. Questionable cortical irregularity and focal osteopenia along the base of the first proximal phalanx. This could reflect osteomyelitis in the appropriate clinical setting. A dedicated MRI with contrast could be obtained for further evaluation. 2. Soft tissue edema overlying the dorsal forefoot. XR FOREARM RIGHT 2 VIEWS Result Date: 04/22/2021 Diffuse soft tissue swelling of the distal right forearm, wrist, and hand. ASSESSMENT: This is a 40 y.o. female w/ PMH substance use disorder (IVDU, opioids, cocaine) on suboxone c/b peripheral vascular disease (right obturator bypass 2018 for infected pseudoaneurysm followed by right BKA 2019), hepatitis C, DVT, and depression now POD# 0 s/p open carpal tunnel releaes for increased right hand swelling/redness/pain x 3d. 1. Pain chronicity: Acute 2. Pain type: Somatic nociceptive pain, Neuropathic pain and Inflammatory pain 3. Opioid Tolerance: Opioid tolerant with opioid misuse disorder 4. Pain intensity: Moderate 5. Pain Trend: Stable 6. Opioid risk tool assessment: High risk of opioid misuse (score 8+) (Opioid Risk Tool Link) RECOMMENDATIONS: Non-Opioid Adjuncts ??? Acetaminophen: Start acetaminophen 750 mg PO Q6H standing. Limit course to 7 days. Not recommended on discharge for those patients with alcohol use disorder. ??? Start ketamine at 15 mg/hr continuous IV infusion. Order approved and entered by APS. Please watch for signs of nightmares, dysphoria or hallucinations. If the patient experiences these side effects, please stop the infusion and call APS.: ??? Gabapentinoids: Gabapentinoids (gabapentin and pregabalin) have fallen out of favor for usage inthe acute pain setting due to respiratory depression with or without use of opioids, misuse, and failure to provide analgesia. ? ? Muscle Relaxant: Start tizanidine 4 mg PO Q8H PRN (hold if systolic blood pressure < 100 mmHgor if the patient is sedated). Tizanidine is an cbmop-3-ejrofnow like dexmedetomidine which may helpwith anxiety, sleep, muscle spasms, and/or pain. By its self, it does not suppress the respiratory drive. It may cause Qtc prolongation in combination with other medications (e.g. ciprofloxacin and methadone). Do not administer concomitantly with clonidine or dexmedetominidine or CYP inhibitors such as famotidine. Bradycardia and profound hypotension may be seen if combined with an ZOFIA inhibitor or ARB. ??? NSAIDs: Consider a non-steroidal anti-inflammatory drug (NSAID) if renal function is within normal limits, no cirrhosis (reduce dose for those patients with hepatitis C without cirrhosis) Opioids: (Expected duration of opioid use for specific surgeries: [facility]) ??? Patient Controlled Analgesia (LAPIDARIST): Start hydromorphone .4 mg per demand 10 min lockout no basal rate 2.4 hourly limit. ??? Buprenorphine: currently ordered for 6-1.5mg daily, though appears outpatient was takin 12mg daily; will need to confirm with patient and/or provider ??? Bowel Regimen: Senna 2 tablets PO at bedtime in combination with PEG or lactulose. Senna may cause abdominal cramping (Indication: prophylactic) ??? Polyethylene glycol (PEG) 17 g PO every day. ??? Naloxone: On discharge, please provide prescription for naloxone 1 mg intranasal x1 for respiratory depression for high risk patients (e.g. history of history of opioid or substance use disorder, > 50 morphine mg equivalents per day, contaminant benzodiazepine use, etc.) Thank you for including the Acute Pain Service in care of this patient. Please contact us (pager #[phone]) with any questions or concerns. Ruthie Main DO 04/23/2021 20:42 Associated attestation - Rosie Myers MD - 05/03/2021 1049 EST Attestation statement: I performed or was present during the joseph or critical portions of the visit and participated in the management of the patient. I agree with the findings and plan of care documented in the resident's/fellow's note. Tomeka Huerta MD - 04/23/2021 0344 EST Images from the original note were not included. Orthopaedic Surgery Consultation Consultation requested by: AUBREE Sotelo for: Right hand pain HPI: Lindsay Jean Baptiste is a right-hand dominant 40 y.o. 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 She does not have any numbness or tingling in the hand. She denies any trauma to the hand. Injected drug for 2 years. 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 Ambulatory status: Independent at baseline Past Medical History: Diagnosis Date ??? Bacteremia due to Staphylococcus aureus ??? Cocaine abuse (HCC) ??? Hepatitis C antibody positive in blood ??? Iron deficiency anemia ??? Moderate opioid use disorder (HCC) ??? Skin abscess Past Surgical History: Procedure Laterality Date ??? ABDOMINAL EXPLORATION SURGERY ??? ECTOPIC SURGERY ??? 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 Ramos, for infected pseudoaneurysm Medications Per outside hospital transfer report: Cyclobenzaprine, buprenorphine-naloxone, gabapentin, OCP No Known Allergies Family History Problem Relation Age of Onset ??? Diabetes Father ??? Diabetes Paternal Aunt ??? Diabetes Paternal Grandfather Social History: Lives in [place] with her daughter has been on disability since her right BKA. Denies smoking. Denies alcohol use. Quit IV drugs 2 years ago and no drug since. Review of Systems: A 10-point review of systems was obtained and pertinent positives are included in the HPI. All others are negative. Physical Exam: BP 125/85 Pulse 85 Temp 37.5 ??C (99.5 ??F) Resp 16 SpO2 98% Focused Musculoskeletal and Neurovascular Examination Right upper extremity: -Circumferential swelling from 2 to 3 cm proximal to the wrist extending distally to all 5 fingers both on the dorsal and volar aspect of the hand. No palpable fluctuant mass. -Tender to palpation over the flexor tendons of all 5 digits, tender at the palm of the hand and over the carpal tunnel. Tinel's equivocal as any palpation anywhere on the hand causes pain. Fingers areheld in a flexed position. Pain with passive extension of all 5 digits. - Sensation intact to light touch in median, ulnar, radial, axillary nerve distributions -Weakly flexes flexor pollicis longus, extensor pollicis longus, interossei, lasting room supervisor due to pain; 5/5 strength in elbow flexion, elbow extension, shoulder abduction -Palpable radial pulse, confirmed with Doppler signals in the radial, ulnar, superficial arch distributions Left upper extremity: -No open injury. No swelling, no erythema. -Hand held with flexion at the DIP and PIP and extension at the MCP. -Diffuse decreased sensation throughout the hand and wrist which is her baseline -Palpable radial pulse Right lower extremity: -Ulceration of the dorsum of the hallux and second toe extending into the subcutaneous tissue. This does not probe to tendon or bone. On the hallux it measures approximately 4 cm x 6 cm and does not have purulent drainage. The second time measures approximately 3 cm x 3 cm without purulent drainage. - Tenderness to palpation at the ulceration, otherwise nontender - Sensation intact to light touch in sural, saphenous, superficial peroneal, deep peroneal, and tibial nerve distributions - 5/5 strength in tibialis anterior, gastroc soleus complex, extensor hallucis longus, flexor hallucis longus; 5/5 strength in quads, hamstrings, hip flexors -Palpable DP pulse Left lower extremity: -BKA site well-healed without drainage or dehiscence Diagnostic Imaging: - AP, oblique, and lateral radiographs of the right hand; 4 views of the right wrist, AP and lateralof the right forearm demonstrate diffuse soft tissue swelling. No radiopaque foreign body. No fractures. -CT of the right upper extremity from outside hospital demonstrates no abscess formation. Fluid within the flexor tendon sheaths within the carpal tunnel. -3 radiographic views of the left foot demonstrate no fracture, no radiopaque foreign body. Possibleerosion of the proximal phalanx of the hallux Labs: WBC/Hgb/Hct/Plts: 14.45/9.9/32.0/135 (04/22 1639) Na/K/Cl/CO2: 141/3.0/105/24 (04/22 1639) BUN/Cr/glu/ALT/AST/amyl/lip: 7/0.65/89/--/--/--/-- (04/22 1639) Assessment: Lindsay Jean Baptiste [id number] 1980 L[birth year] Jean Baptiste is a right-hand dominant 40 y.o. 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 CT of the right upper extremity from outside hospital demonstrating no abscess but with fluid around the flexor tendons in the carpal tunnel. She does have 4/4 Knievel signs ineach of the 5 digits. She has been unable to get an MRI of her left hand due to a retained needle inher left groin. Plan: 1. Orthopedics will continue to monitor closely for improvement or progression once 2. Antibiotics 3. Maintain n.p.o. status today we will monitoring on IV antibiotics 4. Right upper extremity nonweightbearing, maintain volar resting splint. Can come out of 3 times a day for 15 minutes of range of motion 5. Antibiotics per primary. ID consultation. 6. DVT prophylaxis per primary. Okay from orthopedic standpoint 7. Dressing changes per nursing to left foot based on what patient was doing prior to admission. No orthopedic intervention on the foot at this time. Discussed with: Dr. Kimi HUERTA MD 04/23/21 3:44 documented in this encounter Nursing Notes Erika Aquino RN - 04/27/2021 0850 EST Preop Covid DOS screening questionnaire Please document by exception (only check those that apply). Have you had any of the following symptoms recently? no Yes Chronic ? Cough Shortness of breath or difficulty breathing Fever Chills Fatigue Muscle or body aches Severe Headache New loss of taste or smell Sore throat Congestion or runny nose Rash Nausea, vomiting, or diarrhea (rare in adults. More common in children) Were you covid tested? When: 04/26 Results: neg Vaccinated: NO See admission vital signs documentation for admission temperature. documented in this encounter OR Notes OR Surgeon - Kev Hughes MD - 05/03/2021 1522 EST OPERATIVE REPORT SERVICE DATE: 05/03/2021 SURGEON: Kev Hughes MD BONE GRINDER: Soni Tirado PA-C (no residents available) PREOPERATIVE DIAGNOSIS: Right arm cellulitis and a right acute carpal tunnel syndrome with open wound. POSTOPERATIVE DIAGNOSIS: Right arm cellulitis and a right acute carpal tunnel syndrome with open wound. PROCEDURE: Right hand irrigation and debridement and closure of the wound x 7cm. ANESTHESIA: INDICATIONS: This patient was admitted on 22 of April with an acute infection to her arm and significant swelling. She was initially taken to the operating room by another surgeon at [facility] and undergone an open carpal tunnel release to decompress her carpal tunnel. She subsequently had a sequential irrigation and debridement, progressive closure of that wound. She is here today for hopefully closure of the wound after irrigation and debridement. NARRATIVE: The patient was put under nerve block anesthesia to her right upper extremity. The right arm was then prepped and draped in the usual fashion after applying a tourniquet at the upper arm level. We first exsanguinated her arm with an Esmarch bandage and inflated the tourniquet at 250 mmHg. We were dealing with an open carpal tunnel release that was extended proximally because of the original swelling and infection. A portion of the wound was partially closed. All the stitches were removed and the incision reopened and irrigated thoroughly. Inspection of the median nerve was also performedand was found to be intact. There was a significant amount of granulation tissue over the nerve and tendon which was for the most part protected and saved to allowed better coverage at final closure. The area appeared to be clean and there was no evidence of infection at this point of time. The skin on either side of the incision was then undermined so that we could mobilize the edges of the skin and approximated the wound which measured 7 cm long. This was done with 4-0 nylon in separate vertical mattress suture. Numerous stitches were placed and ultimately 95% or so of the incision was closed leaving a very small amount of the area still open and left to granulation. At this point, dry dressing was applied over the wound. Tourniquet was then released after 14 minutes of ischemia. The intervention was well tolerated. ESTIMATED BLOOD LOSS: Minimal. DISPOSITION: The patient was transferred to the recovery room in good condition. Unless otherwise noted, there were no complications, no blood loss, no cultures obtained, no specimens removed, and no drains retained. Kev Hughes MD / AM Confirmation: [id number] Dictation ID: [id number] cc: R Surgeon - Shane Cuevas MD - 04/30/2021 0000 EST OPERATIVE REPORT SERVICE DATE: 04/30/2021 PREOPERATIVE DIAGNOSIS: Right hand volar wound. POSTOPERATIVE DIAGNOSIS: Right hand volar wound. PROCEDURE: Right palm and proximal forearm volar wound irrigation and debridement of the carpal tunnel. SURGEON: Shane Cuevas MD BONE GRINDER: Reddy Jerome MD, PGY1 ANESTHESIA: General endotracheal. FINDINGS: Some fibrinous tissue and exudate, but no gross purulence could be expressed from the wound. Generally, it looked clean. INDICATIONS: Lindsay Jean Baptiste had a significant deep space hand infection for which she went to theOR on 2 previous occasions. I was asked to further debride and wash out her wound this weekend. I met her on the floor. She had appropriate consent obtained and then she was brought to the operating suite. NARRATIVE: Once in the operating suite, the WHO timeout was completed and a general anesthetic was provided by the anesthesia team. She was carefully positioned with all bony prominences appropriately padded and her right arm rested out on a hand table. A well-padded right arm tourniquet was applied, but never inflated. Then, her right lower extremity was prepared and draped in the usual sterile fashion. A brief timeout was held prior to beginning the procedure and she received 2 grams of cefazolin.Attention was turned to her wound. The previous [place] drain actually came out as we were removing the splint and dressing that she has had before. There was some old clot and fibrinous tissue there, quite a bit of swelling. We gently debrided that with a laparotomy pad and irrigated, looked at some of the flexor tendons in the canal very careful around the median nerve, which was very superficial. Debrided gently with some Ray-Tecs along the visible tendon sheath. I could not express any purulenceout of the hand flexor tendon or from proximal, irrigated further in the carpal tunnel and then attempted to reapproximate the wound edges at the proximal part of the incision with a 3-0 nylon. We wereable to get a 3 to 4 stitches in that area, but it is quite tight and so could not close much of thewound. I then placed a sterile Adaptic dressing followed by 4 x 4's, sterile Webril, and then a volar hand splint was applied. The postoperative debrief was completed and she was taken to the PACU in stable condition. ESTIMATED BLOOD LOSS: Minimal. FLUIDS: 500 mL of crystalloid. URINE OUTPUT: Not recorded. DRAINS, PACKS, FOREIGN MATERIALS: None. SPECIMENS: None. COMPLICATIONS: None in the immediate postoperative period. DISPOSITION: To the PACU in stable condition. Unless otherwise noted, there were no complications, no blood loss, no cultures obtained, no specimens removed, and no drains retained. Shane Cuevas MD / Confirmation: [id number] Dictation ID: [id number] cc: R Surgeon - Stone Bansal MD - 04/27/2021 0000 EST OPERATIVE REPORT SERVICE DATE: 04/27/2021 SURGEON: Stone Bansal MD BONE GRINDER: AUBREE Hartley-Certified (No ACGME qualified resident was available to assist because of duty hour restrictions. Because of the complexity of the case, as indicated in the Procedure section; and described in detail in the Narrative section below, I requested AUBREE Hartley, to assist. During this procedure, the PA performed the following functions in the operating room: The administration assistant at the time of surgery under my direction would hold necessary retractors; hold and position theoperative limb; place and cut sutures; assist in drilling, hammering and turning a screwdriver; placing or removing implants; holding a camera if arthroscopy was performed; and assist in any way deemed necessary by me, the attending surgeon. The PA assisted with wound closure, application of dressings, removal of the drapes, and application of splints and slings if necessary or any other immobilization devices.) PREOPERATIVE DIAGNOSIS: Open wound with ongoing infection, deep, right hand. POSTOPERATIVE DIAGNOSIS: Open wound with ongoing infection, deep, right hand. PROCEDURE: Irrigation and debridement, flexor tenosynovectomy and insertion of a drain. ANESTHESIA: General. INDICATIONS: The patient came in with a deep space infection in her hand with a horseshoe abscess. She was irrigated and debrided 4 days prior and it was time to return to the operating room for repeatevaluation. The risks and benefits of the procedure were discussed with the patient on the floor. Informed consent was obtained there. NARRATIVE: The patient was greeted in preoperative hold. Her right arm was identified and marked andshe was transferred to the operating room where she received general anesthesia. When hemodynamically stable, the dressing was removed. The Tourni-Cot was placed on her upper arm and an evaluation of the wound showed significant swelling still present. There was now suppurative flexor tenosynovitis that was present, and turbid fluid still present in the wound. The decision was made not to close this at this time, but rather to perform a repeat I and D and a flexor tenosynovectomy. A sterile prep anddrape was then performed and the limb was elevated and exsanguinated with an Esmarch and the tourniquet inflated to 250 mmHg. The prior open wound was irrigated and debrided with 9 L of sterile saline.The floor of the flexor tendon sheaths were scrubbed with a small scrub brush. Flexor tenosynovium was excised and sent for culture and sensitivity. Once 9 L had been completed, a Falguni drain was placed deep underneath the flexor tendons and left out through the skin. Dressings were applied and the patient was placed in a bulky fluffs dressing with a volar wrist splint. The tourniquet was released.She was extubated and transferred to the recovery room in stable condition. All counts correct at the end of this case. Unless otherwise noted, there were no complications, no blood loss, no cultures obtained, no specimens removed, and no drains retained. Stone Bansal MD / Confirmation: [id number] Dictation ID: [id number] cc: R Surgeon - Kyle Caballero MD - 04/24/2021 0105 EST OPERATIVE REPORT SERVICE DATE:04/23/2021 SURGEON: Stone Bansal MD BONE GRINDER: MD Kyle Guerrero MD PREOPERATIVE DIAGNOSIS:right open carpal tunnel syndrome POSTOPERATIVE DIAGNOSIS: same PROCEDURE: right open carpal tunnel release ANESTHESIA: General anesthesia FLUIDS:500 cc TOURNIQUET TIME:24 minutes URINE OUTPUT: 0 SPECIMENS: purulent fluid sent for culture COMPLICATIONS: none INDICATIONS: Lindsay Jean Baptiste is a [id number] 40-year-old female with past medical history including IV drug use, hepatitis C, opioid use disorder, right transtibial amputation, right femoral artery pseudoaneurysm who presents with several days of right hand edema, erythema, leukocytosis, and imaging findings consistent with tenosynovitis and extensive deep infection involving the carpal tunnel. Lindsay developed acute progression of paresthesias and numbness in the first 3 digits she was unable to tolerate recommendations of immobilization and elevation. Extensively discussed the risk, benefits, and alternatives of operative versus nonoperative management. Risks of surgery discussedincluded loss of function of the arm, chronic pain, neuroma formation, need for further surgery, wound issues, hand, finger, wrist, extremity stiffness, failure to return to desired level of function, pillar pain, scar sensitivity, as well as all the risks of anesthesia. Given the extent of the infection, altered anatomy, prior trauma to the volar proximal hand intersecting with the surgical site, Dr. Bansal was asked to be present for the procedure. Patient elected to proceed all questions were answered. Patient was pleased with plan. NARRATIVE: The patient was greeted in preoperative holding. Her right hand was identified and marked. She was transported to the operative suite and transferred to the operating room table. She underwent general anesthesia and was placed in supine position. A nonsterile tourniquet was placed on the right upper arm. The right arm was then prepped and draped in usual fashion. The landmarks were palpated and marked including the Portillo's cardinal line, and the radial border of the fourth ray and its intersection with the line from the pisiform for the radial edge of the proximal palmar crease. A palmaris longus was unable to be palpated secondary to gross edema. A Reji incision was marked using a volar skin crease. A longitudinal Reji incision is then made over the volar aspect of the hand at the level of the heel of the palm. The incision was in line with the 3-4 webspace and was approximately4.5 cm long. The incision was carried down through the soft tissue. Skin hooks were used for retraction, followed by spring retractor. Iris scissors were used to spread through the subcutaneous tissue to the palmar fascia. Neither the palmar cutaneous sensory branch nor the recurrent motor branch wereencountered. A 69 blade was used to longitudinally incise the palmar fascia. The flexor retinaculum was then visualized and incised longitudinally. We released the distal portion of the transverse carpal ligament up to the level of the fat pad. The palmar arch was not encountered. The reminder of the flexor retinaculum was then released. The most proximal portion of the flexor retinaculum was released under direct vision with the knife and then with blunt tipped scissors well into the forearm fascia. We made sure that the flexor retinaculum was well released proximally and distally by palpation with a Reno as well as direct visualization. The median nerve was inspected andwas found to be without further compression. A Reno was gently used to explore the flexor tendons and gross purulence was expressed and sent for culture. Each individual flexor tendon sheaths were inspected by passing a freerdistally as well as using manual manipulation. Purulence tracked both proximally and distally and into the hyperthenar space. The wound was copiously irrigated using 9 L of normal saline. The incision was left open given the gross infection with plan to return for a formal incision and drainage and closure. Incision was dressed with Xeroform, 4 x 4, breast padding, and was splinted in ulnar positive position. The tourniquet was released after 24 minutes of ischemia. There was no complication. Patient was transferred in recovery room in good condition. Dr. Bansal and Kimi were present for the entirety of the case 04/24/2021 Associated attestation - Stone Bansal MD - 05/06/2021 1548 EST I was present during the entire proceduredocumented in this encounter ED Notes Tiffany Dennis RN - 04/23/2021 0319 EST Dressing to left great and second toe. Patient places small amount of lido jelly and covers with gauze and tapes in place. States pain is now controlled. Tiffany Dennis RN - 04/23/2021 0115 EST Returned from MRI, unable to complete secondary to piece of metal (needle tip) in left groin. aware. iffany Dennis RN - 04/23/2021 0055 EST C/O increasing right hand pain in MRI. Medicated per order. aggie Dahl PA-C - 04/22/2021 2225 EST I, Ke Kashif, am scribing for Maggie Dahl PA-C while he/she is personally performing the service. Ke Rowland 04/22/2021 22:26 Lindsay Jean Baptiste is a 40 y.o. female who presents to the ED with hand pain. The patient was transferred to [facility] from [facility] over concern over right hand infection. Patient has a history of former IVDU and lost right lower leg from an osteomyelitis, chronic left foot ulcers. The patient reports having fevers for the past few days. She was found to have leukocytosis. The patient was started on vancomycin and ceftriaxone. She strongly denies injecting into the right hand or using recreational drugs. The patient is currently taking Suboxone. Positive for fever. Negativefor nausea, vomiting, abdominal pain, chest pain, shortness of breath, dysuria, or gross hematuria. Care and work-up prior to sign out includes patient assessment. Labs of Lactic Acid, BMP, and CBC. Imaging of right forearm x ray, right wrist x ray, right hand x ray, and left foot x ray. Medication of 1,000 mL lactated ringers, 2% lidocaine jelly, and 3 doses of 1 mg IV Hydromorphone for a total of 3 mg. I assumed care of patient from Yovany Gonzalez PA-C with MRI right hand with without contrast and MRI right wrist pending. After I assumed care the patient had. At 23:20 the patient was started on 2,000 mg IV ceftriaxone in 50 mL saline. At 23:53 the patient was started on 1,000 mg IV vancomycin. At 00:56 the patient was administered 1 mg IV Hydromorphone. 01:00 MRIs were unable to be obtained as the patient revealed there was a broken off needle near herfemoral artery. Reviewed case with supervising attending Dr Grossman. 01:01 Discussed patient's case and care plan with Orthopedics. 01:07 Paged Hospitalist. 01:08 Discussed with Hospitalist regarding admission. CK obtained and negative to rule out presence of compartment syndrome. 01:14 On reassessment the patient expressed wanting to eat. The patient states she lost full ROM in the right hand several days ago when the hand began to swell. Endorses pain secondary to extension ofthe fingers and has intact sensation. 02:08 Discussed with Hospitalist who will admit the patient to Medicine. The patient was admitted to Medicine under the care of José Perla MD. Final diagnoses: Right arm cellulitis This documentation is recorded by Ke Rowland acting as Scribe under the direction and presence of Maggie Dahl PA-C. Maggie Dahl PA-C: I personally performed the services recorded by the scribe in my presence. Iconfirm the scribe's documentation has been reviewed by me to accurately and completely record my work, treatment, procedures, and medical decision making. Jazmin Grossman MD was available for supervision. Jazmin Flores MD - 04/22/2021 1710 EST I, Pavel Viramontes, am scribing for Jazmin Grossman MD while he/she is personally performing the service. Pavel Viramontes 04/22/2021 17:10 I performed a history and exam of this patient and discussed the case with the PA. I reviewed this individual's note and I concur with the documented findings and plan of care except as documented differently. ROS as per PA chart. Please see primary note by the PA. Nursing notes reviewed and vital signs reviewed. A medical screening exam was performed. In brief, 40-year-old female who presents as a transfer from outside hospital with concern for righthand cellulitis and possible flexor tenosynovitis. Has a history of chronic wounds to her left leg, prior hand surgeries, and prior IVDU. She was given vancomycin and ceftriaxone at the outside hospital. On arrival in the ED, vital signs notable for tachycardia; patient was uncomfortable, with diffuseswelling, erythema, and tenderness of the right hand. No range of motion of the fingers secondary tosevere pain. Also with noted chronic appearing wound to the left foot. Agree with PA plan for antibiotics, orthopedic consultation, and admission. Update: Negative lactic acid. Leukocytosis white count 14. Also noted to be anemic, as well as low potassium. Patient evaluated by orthopedics with plan for MRI for further evaluation to determine if there is a drainable fluid collection. Unfortunately, unable to obtain an MRI due to patient having a r etained needle near the femoral artery. Orthopedics recommending conservative management this time with IV antibiotics and admission to medicine. On reevaluation of patient, continues to have significant swelling, pain of the right hand, the inability to passively or actively extend fingers. There is c linical concern for flexor tenosynovitis. In discussion with orthopedics, they feel that involvementof all 5 fingers is atypical for flexor tenosynovitis, with lower suspicion for this diagnosis or need for emergent surgical intervention at this time. The orthopedic resident has discussed this with their attending. Plan for admission to medicine with IV antibiotics, and serial examinations by the orthopedic surgery team. Final diagnoses: None This documentation is recorded by Pavel Viramontes acting as Scribe under the direction and presenceof Jazmin Grossman MD. Jazmin Grossman MD: I personally performed the services recorded by the scribe in my presence. I confirm the scribe's documentation has been reviewed by me to accurately and completely record my work, treatment, procedures, and medical decision making. Yovany Cr PA-C - 04/22/2021 1659 EST Emergency Department Visit Chief Complaint Hand Pain (BIBEMS tx from [facility]. R hand red, swollen and streaking up forearm. ulceration on left foot. hx IVDU, denies current use. limited ROM in L am. elevated WBCs, lactic WNL) and Diabetic Foot Infection Assessment and ED Course Final diagnoses: None Relevant Data as of Apr 25 2250SunApr 22, 2021 1903 in brief, 40-year-old female who presents as a transfer from outside hospital with concern for right hand cellulitis and possible flexor tenosynovitis. Has a history of chronic wounds to her left leg, prior hand surgeries, and prior IVDU. She was given vancomycin and ceftriaxone at the outside hospital. On arrival in the ED, vital signs notable for tachycardia; patient was uncomfortable, with diffuse swelling, erythema, and tenderness of the right hand. No range of motion of the fingers secondary to severe pain. Also with noted chronic appearing wound to the left foot. Agree with PA plan for an tibiotics, orthopedic consultation, and admission. [EL] Sat Apr 23, 2021 0225 Ortho eval and no operative intervention, to medicine for IV abx [JK] Relevant Data User Index [EL] Jazmin Grossman MD [JK] Yan Hernández MD Disposition: No disposition on file HPI Lindsay Jean Baptiste is a 40 y.o. female who presents today with Hand Pain (BIBEMS tx from [facility]. R hand red, swollen and streaking up forearm. ulceration on left foot. hx IVDU, denies current use. limited ROM in L am. elevated WBCs, lactic WNL) and Diabetic Foot Infection Patient is transferred from [facility] for concern about right hand infection, perhaps needing emergent or urgent surgical treatment. Patient has a distant history of IV drug use, and lost her lower right leg years ago from an osteomyelitis. She also has chronic left foot ulcer s, and she was tentatively scheduled for a left great toe amputation later this month. 3 days ago she started having atraumatic right hand pain, swelling, redness. This has become increasingly more severe. She has also started getting fevers in the last few days. She was seen yesterday at [facility] was found to be febrile with a leukocytosis. She had blood cultures collected, was started on vancomycin andceftriaxone. CT scan of the right upper extremity showed fluid around the right hand flexor tendons,concerning for flexor tenosynovitis. Original plan was to transfer to [facility], but this fell through and patient was accepted by [facility] orthopedics for evaluation. Patient takes Suboxone, states she has not done any recreational drugs for years, adamantly denies injecting her right hand recently or suffering any known trauma. She wonders if she may have seeded her right upper extremity from her left lower extremity with chronic ulcers. Patient is right-hand dominant. Patient is not vaccinated against Covid. She denies cough or cold symptoms. Denies nausea vomiting,abdominal pain, chest pain, shortness of breath. Denies dysuria or gross hematuria. Patient does not smoke, drink, do drugs. The history is provided by the patient. Hand Pain Associated symptoms: fever Data reviewed this visit: The patient's past medical, family and social history was reviewed and updated as needed. Allergies: No Known Allergies Review of Systems Review of Systems Constitutional: Positive for fever. - see HPI Physical Exam Vital Signs Temp: 36.5 ??C (97.7 ??F) Temp src: Oral Pulse: (!) 110 Heart Rate: 88 BPM Cardiac Rhythm: Normal sinus rhythm Resp: 18 SpO2: 97 % BP: 126/68 BP Device: BP Machine BP Patient Position: Sitting BP Cuff Location: Left arm There is no height or weight on file to calculate BMI. A medical screening exam was performed. Physical Exam Vitals reviewed. Constitutional: General: She is not in acute distress. Appearance: She is well-developed and well-nourished. HENT: Head: Normocephalic and atraumatic. No signs of injury. Nose: No nasal discharge. Mouth/Throat: Mouth: Mucous membranes are moist. Dentition: No dental caries. Pharynx: Normal. Tonsils: No tonsillar exudate. Eyes: Conjunctiva/sclera: Conjunctivae normal. Pupils: Pupils are equal, round, and reactive to light. Cardiovascular: Rate and Rhythm: Regular rhythm. Comments: Tachycardic at 110 Pulmonary: Effort: Pulmonary effort is normal. Musculoskeletal: General: Tenderness and edema present. Cervical back: Normal range of motion. Comments: Patient's entire right wrist and hand are significantly swollen, bright red, hot, and exquisitely tender. Fingers are held in anatomical position, and she is unable to flex or extend any of her fingers. No signs of breaks in the skin, focal fluctuance, pointing. Excruciating pain with passive flexion of any of her fingers. Redness extends long term up the medial forearm, otherwise stops justproximal to the wrist. Patient has a chronic appearing large ulcer at the base of her left great toe, which does not appearobviously infected, with only very localized erythema around the edges Skin: General: Skin is warm. Findings: Erythema present. Neurological: Mental Status: She is alert and oriented to person, place, and time. Psychiatric: Mood and Affect: Mood and affect normal. Behavior: Behavior normal. Thought Content: Thought content normal. Judgment: Judgment normal. Results EKG orders: None Radiology orders: Procedures Procedures MDM Number of Diagnoses or Management Options Acute carpal tunnel syndrome, right Right arm cellulitis Diagnosis management comments: On exam, patient has a very swollen neck, very red and exquisitely painful and mobile right hand. She is tachycardic but not febrile here. She has a chronic left foot ulcer which does not appear obviously infected. Repeat labs show WBC of 14.5, hemoglobin of 10 . Last ceftriaxone was 11:30 AM today. Last vancomycin was 1 PM today. Discussed with and seen by orthopedics, asked for MRI, stated admission will likely be to medicine because patient has appeared septic. Given IV fluids and Dilaudid for pain, ultimate admission and disposition pending at the end of my shift, awaiting MRI results. Amount and/or Complexity of Data Reviewed Clinical lab tests: ordered and reviewed Tests in the radiology section of CPT??: reviewed Tests in the medicine section of CPT??: ordered Review and summarize past medical records: yes Jazmin Grossman 04/22/2021 16:59 documented in this encounter Miscellaneous Notes Plan of Care - Cindy James LPN - 05/04/2021 0310 EST Problem: Daily Care Plan Goals Goal: Care Plan Documentation Flowsheets (Taken 05/04/2021 0000) Area of Focus: Pain/ Comfort Goal This Shift: (pt will have tolerable pain this shift) -- Note: Note: Data: Assumed care of Pt at 1900 Pt A&Ox3 Denies CP/SOB/N/V/D/GUILLEN. Pt is independent to commode. Continent of urine and stool. On Room air. On a LAPIDARIST dilauded pump. EMILY OLSON. Action: Head to toe assessment. Medicated per JUN. PRN given for muscle spasms @ 2230, pt c/o itchiness on back and arms,anti-itch cream ordered and applied. No visible issues with skin in these areas.Hourly checks. Response: No acute changes this shift. Pt states she is excited to be d/c soon. Pt resting in bed with eyes closed. States pain is a tolerable 08/07. WC. CINDY JAMES LPN 05/04/2021 3:06 rief Op Note - Soni Tirado PA-C - 05/03/2021 1036 EST Date: 04/22/2021 - 05/03/2021 Location: [facility] OR Name: Lindsay Jean Baptiste, : 1980, Diagnosis Pre-Op Diagnosis Codes: * Right arm cellulitis [L03.113] * Acute carpal tunnel syndrome, right [G56.01] Post-op Diagnosis * Right arm cellulitis [L03.113] * Acute carpal tunnel syndrome, right [G56.01] Procedures right hand irrigation and debridement with closure 59571 - IL DEBRIDEMENT, SKIN, SUB-Q TISSUE,MUSCLE,EACH ADD 20 SQ CM Surgeons * Kev Hughes MD - Primary * Soni Tirado PA-C - Assisting Procedure Summary Anesthesia: regional block ASA: ASA status not filed in the log. Estimated Blood Loss: No Blood Loss Documented Total IV Fluids: 400 mL LDAs: CVC Triple Lumen 04/22/21 (Active) Open Drain Right;Anterior Other (Comment) (Active) Wound 04/23/21 Incision Right;Anterior Wrist (Active) Wound 05/01/21 Dorsal (Foot);Left Full thickness (Active) Wound 05/03/21 Incision Anterior;Right Hand Full thickness (Active) TTT: 14 min Rt arm @ 250mmHg Staff: Costume Director: Sal Tubbs RN Scrub Person: Nya Balbuena Patient Obstetrician/Gynecologist: Ozzie Lizama Indications: Lindsay Jean Baptiste is an 40 y.o. female who is having surgery for * No pre-op diagnosis entered * Findings: RT wrist flexor tendons intact; median nerve intact, irrigated, debrided and partial closure of RT volar wrist Complications: None; patient tolerated the procedure well. Disposition: PACU - hemodynamically stable. Condition: stable Specimens Collected: No specimens collected during this procedure. Attending Attestation: I was present and scrubbed for the entire procedure Kev Hughes MD [id number] signed by Soni Tirado PA-C at 05/03/2021 10:38 ESTPlan of Care - Cindy James LPN - 05/03/2021 0309 EST Problem: Daily Care Plan Goals Goal: Care Plan Documentation Flowsheets Taken 05/02/2021 0000 by Anyi Orellana RN Area of Focus: Pain/ Comfort Taken 05/01/2021 2252 by Viviane Cole RN Goal This Shift: Patient will have adequate pain management at this shift. Note: Data: Assumed care of Pt at 1900 Pt A&Ox3 Denies CP/SOB/N/V/D/GUILLEN. Pt is independent to commode. Continent of urine and stool. On Room air. On a LAPIDARIST dilauded pump. BKA RLE. Currently NPO for morning procedure. Action: Head to toe assessment. Medicated per JUN. PRN given for muscle spasms @ 2230, Hourly checks. Response: No acute changes this shift. Pt resting in bed with eyes closed. States pain is a tolerable 08/07. WCTM. CINDY JAMES LPN 05/03/2021 3:06 lan of Care - Sourav Leal MD - 05/02/2021 0843 EST Ortho brief Plan for OR tomorrow for I&D and progressive closure with Dr. Hughes Pre Op Checklist - Consent completed - Extremity signed - NPO at midnight (ok to give sips of water with mediations) - Insert PIV panel (20 gauge or larger) - Case will be booked Labs: - COVID Test negative Medications: - Pre-operative antibiotics ordered Sourav Leal MD 05/02/2021 8:45 lan of Care - Viviane Cole RN - 05/01/2021 2301 EST Problem: Daily Care Plan Goals Goal: Care Plan Documentation Flowsheets (Taken 05/01/2021 2252) Goal This Shift: Patient will have adequate pain management at this shift. Note: D: Patient admitted with R arm cellulitis, ID done, patient still experiencing pain rated 6/10. A :The wound at R arm looks clean , patient has pain med per eMAR, she is on dilaudid LAPIDARIST we are clear up Q 2 . Patient has her hand elevated. R : Patient is able to move her fingers, the pain seems well controled by LAPIDARIST, non grimaces or moaning, will continue to monitor. lan of Care - Brendon Lopez RN - 05/01/2021 0432 EST Problem: Resident experiences pain/discomfort Goal: Resident will maintain an acceptable level of pain Description: INTERVENTIONS 1. Administer pain medication as ordered 2. Offer non-pharmacological pain management interventions Outcome: Ongoing Data: Assumed care at 2300. Resting in bed watching television. Pt had I&D earlier in the day. Right hand/forearm with a dressing that is CDI. Pain 5/10 at right hand. Swollen, warm to touch with minimal movement of right fingers. LAPIDARIST dilaudid and ketamine drip in place for pain management. PRN pain management requested for 7/10 pain in the right hand at 0310. Action: Medications given per JUN. Hourly checks in place for safety. CMST assessed, provider alerted to pain in right hand and CMST status and assessed. Up to commode PRN. Response: Pt slept on and off overnight. Pain in right hand remains at a 7/10 even with PRN medication. Pt sitting up in bed watching television. No further needs at this time. BRENDON LOPEZ RN 05/01/2021 4:32 lan of Care - Brendon Hernández RN - 04/30/2021 1400 EST Problem: Daily Care Plan Goals Goal: Care Plan Documentation Outcome: Ongoing Flowsheets (Taken 04/30/2021 1138) Area of Focus: Pain/ Comfort Goal This Shift: Pt's pain will be well managed this shift Data: Pt is A/O x3, VSS, reports pain in R arm 5/10. Independent to commode. Ketamine gtt and dilaudid LAPIDARIST. Action: Scheduled medications and PRN Benadryl and tizanidine given as ordered (see eMAR). Pt off the floor to OR today for I&D of R hand. Response: Pt reports pain 9/10 after returning from OR. Pt resting in bed with call stewart in reach. Able to make needs known. BRENDON HERNÁNDEZ RN 04/30/2021 14:00 rief Op Note - Reddy Jerome MD - 04/30/2021 0820 EST Department of Orthopaedics Brief Op Note Date of Surgery: 04/30/2021 Surgeons: * Shane Cuevas MD - Primary * Reddy Jerome MD - Resident - Assisting Reddy Jerome MD - Assisting Pre-Op Diagnosis: Right arm cellulitis Post-Op Diagnosis: right arm cellulitis Procedure(s): Complex I&D UE Wound (CPT 70575) Findings: No purulence or evidence of necrotic or infected tissue in the deep space. Bluntly removedfibrinous tissue. Irrigated copiously. Closed proximal 1 cm as below. Remaining 5 cm distally left open and dressed with Adaptic, 4x4, sterile Webril. Overwrapped with nonsterile Webril and volar resting splint. Anesthesia Type: General Tourniquet Time: NA Estimated Blood Loss: <10 cc Fluids: 500 mL crystalloid Urine Output: NA X-rays reviewed: yes, preoperatively Specimens: None Closure: x3 vertical mattress 3-0 nylon were placed to approximate the most proximal 1 cm of the volar wound. Staff: Costume Director: Tamika Cox RN Scrub Person: Goldie Barry RN Patient Obstetrician/Gynecologist: Gui Livingston Disposition and Condition: PACU in Good condition per anesthesia. Plan: Multimodal pain control DVT ppx: no contraindication, ok to resume postop Antibiotics: per ID recs and primary team Activity: NWB RUE, maintain volar resting PT routinely evaluation for ADL's Diet: ok to resume postop Will need repeat trip to OR this week for repeat I&D and more closure over volar space. No future appointments. REDDY JEROME MD 04/30/2021 10:04 * No implants in log * lan of Care - Isai Hill RN - 04/30/2021 0656 EST Problem: Daily Care Plan Goals Goal: Care Plan Documentation Outcome: Met This Shift Flowsheets Taken 04/30/2021 0656 Area of Focus: Pain/ Comfort Taken 04/29/20212000 Goal This Shift: Pt will have tolerable pain during this shift D: Assumed pt care 1909 Pt is A&OX3, Denies SOB, chest pain, N/V but has pain on her right arm /fingers. Pt is on LAPIDARIST dilaudid and Ketamine drip for pain management and frequently takes her PRN pain meds. --Pt is NPO this morning for I&D and closure of surgical site. A: Provided meds per MAR, performed physical assessment, frequent visual checks and clustered care. R: Pt slept >4hrs and No acute event overnight. ISAI HILL RN 04/30/2021 6:56 lan of Care - Catrachita Barnett RN - 04/29/2021 1715 EST Problem: Resident experiences pain/discomfort Goal: Resident will maintain an acceptable level of pain Description: INTERVENTIONS 1. Administer pain medication as ordered 2. Offer non-pharmacological pain management interventions 04/29/2021 1715 by Catrachita Barnett, RN Outcome: Ongoing 04/29/2021 1510 by Catrachita Barnett, RN Outcome: Ongoing Pt verbalizes acceptable pain control this shift. Ketamine infusion decreased to 15 mg/hour with verbalized tolerance. Encouraged elevation of right upper extremity to aid in decreasing pain and edema. lan of Care - Catrachita Barnett RN - 04/29/2021 1510 EST Problem: Daily Care Plan Goals Goal: Care Plan Documentation Outcome: Ongoing Data: Assumed care at 0700. Alert and oriented to person, place and time. Continues on continuous IVKetamine infusion and IV Dilaudid LAPIDARIST. C/O 5-6/10 right wrist pain intermittently throughout shift. Dressing clean and dry to right wrist. Positive color, sensation, movement, temperature noted to right hand digits. Action: Medications administered as ordered, see MAR. Care clustered to promote comfort. Safety maintained. Response: In bed watching TV at present with no verbalized complaints. CATRACHITA BARNETT RN 04/29/2021 15:11 lan of Care - Juan Schmitz MD - 04/29/2021 1432 EST Ortho Plan of Care Tentative plan for operative intervention on 04/30/21 for repeat I&D with possible closure. Pre Op Checklist - Consent completed - serial consent - Extremity signed - will sign on rounds if needed - NPO at midnight (ok to give sips of water with mediations) - Insert PIV panel ordered (20 gauge or larger) - Case booked Labs: - CBC & Coags ordered - COVID Test Ordered - Type and Screen, ABO - UPT (female of child bearing age, 12-55) Medications: - mIVF ordered - Pre-operative antibiotics ordered - Anticoagulation reviewed and discontinued if appropriate - ACS multitrauma patients continue lovenox perioperitavely as default - Insulin (adjust Q6 with NPO status / adjust long acting if appropriate) - ARBS/ZOFIA medications discontinued (if necessary) Juan Schmitz MD Orthopaedic Surgery, PGY2 lan of Care - Isai Hill RN - 04/29/2021 0411 EST Problem: Daily Care Plan Goals Goal: Care Plan Documentation Outcome: Met This Shift Flowsheets Taken 04/29/2021 0410 Area of Focus: Pain/ Comfort Taken 04/28/20212024 Goal This Shift: Pt will have tolerable pain during this shift D: Assumed pt care 1908. Pt is A&OX3, Denies SOB, chest pain, N/V but has pain on her right arm /fingers. Pt is on PO dilaudid and Ketamine drip for pain management. A: Provided meds per MAR, performed physical assessment, frequent visual checks, Instructed pt to practice deep breathing exercise for non pharmacology therapy. R: Pt is sleeping comfortably in her bed and No acute event overnight. ISAI HILL RN 04/29/2021 4:11 lan of Care - Catrachita Barnett RN - 04/28/2021 1524 EST Problem: Daily Care Plan Goals Goal: Care Plan Documentation Outcome: Ongoing Data: Assumed care at 0700. Alert and oriented to person, place and time. C/O 6/10 pain. Continues on Ketamine drip as well as Dilaudid LAPIDARIST with verbalized effect. Dressing and splint clean, dry, intact to right arm. Right hand digits with positive CSMT's. Continues with non-pitting edema to right hand digits. Left great toe/2nd toe dressing changed- wound bed superficial and beefy red in color with pink/intact surrounding tissue, no drainage or odor noted. Action: Medication and treatments administered as ordered, see MAR. Care clustered to promote rest and comfort. Safety maintained. Response: In bed with eyes closed at present. CATRACHITA BARNETT RN 04/28/2021 15:24 lan of Care - Catrachita Barnett RN - 04/27/2021 1738 EST Problem: Daily Care Plan Goals Goal: Care Plan Documentation Outcome: Ongoing Data: Assumed care at 0700. Pt left unit at 0730 for surgical I&D with drain placement of right hand. Returned back to the unit at 1436 alert and oriented to person, place and time stating she was comfortable. Pleasant and cooperative with all care and medications. Voided 500 ml clear yellow odorless urine upon return to unit. Remains on Continuous Ketamine infusion as well as Dilaudid LAPIDARIST with verbalized positive effect. Dressing clean, dry, intact to right hand with positive color, movement, sensation, and temperature to right hand digits. Non- pitting edema noted to right hand digits, denies numbness/tingling, right hand elevated on pillows with positive effect. Action: Medications administered as ordered, see MAR. Care clustered to promote rest and comfort. Safety maintained. Response: In bed with eyes closed, easily roused with verbal stimuli. CATRACHITA BARNETT RN 04/27/2021 17:38 rief Op Note - Sarah Monet PA-C - 04/27/2021 0909 EST Date: 04/22/2021 - 04/27/2021 Location: [facility] OR Name: Lindsay Jean Baptiste, : 1980, Diagnosis Pre-Op Diagnosis Codes: * Right arm cellulitis [L03.113] Post-op Diagnosis * Right arm cellulitis [L03.113] Procedures COMPLEX INCISION AND DRAINAGE, WOUND, UPPER EXTREMITY [address] - [place] COMPLEX DRAINAGE, WOUND Surgeons * Stone Bansal MD - Primary Flako MAK administration assistant Procedure Summary Anesthesia: General ASA: III Estimated Blood Loss: minimalTotal IV Fluids: 300 mL LDAs: CVC Triple Lumen 04/22/21 (Active) Full Thickness 06/28/17 Surgical Right Groin (Active) Full Thickness 06/29/17 Surgical Right Abdomen (Active) Full Thickness 06/29/17 Right;Upper;Inner Leg (Active) Full Thickness 06/29/17 Surgical Right Groin (Active) Wound 04/03/19 Full thickness (Active) Wound 04/03/19 Full thickness (Active) Wound 04/03/19 Full thickness (Active) Wound 04/23/21 Incision Right;Anterior Wrist (Active) Staff: Costume Director: Sal Tubbs RN Scrub Person: Christiano Reyes; Mendel Chavez LNA Patient Obstetrician/Gynecologist: Sourav Garcia Indications: Lindsay Jean Baptiste is an 40 y.o. female who is having surgery for right arm cellulitis Findings: open wound Complications: None; patient tolerated the procedure well. Disposition: PACU - hemodynamically stable, then to floor Condition: stable Wound:scrubbed wound, irrigated, falguni drain placed, wound left open, keep clean and dry, non-weight beiring Specimens Collected: culture X1 Attending Attestation: I was present and scrubbed for the entire procedure Stone Bansal MD [id number] signed by Sarah Monet PA-C at 04/27/2021 10:11 ESTPlan of Care - Isai Hill RN - 04/27/2021 0212 EST Problem: Daily Care Plan Goals Goal: Care Plan Documentation Outcome: Ongoing Flowsheets Taken 04/27/2021 0212 Area of Focus: Pain/ Comfort Taken 04/27/2021 0022 Goal This Shift: Pt will have tolerable pain during this shift Nursing Pain Note D: Assumed pt care 2309. Pt is A&OX3, Denies SOB, chest pain, N/V but has pain on her right arm.Pt is on PO dilaudid and Ketamine drip for pain management. A: Patient receiving PRN pain medications and her schedule tylenol. See MAR. Instructed pt to practice deep breathing exercise for non pharmacology therapy. --Pt is NPO tonight to have wound closure in the OR today. R: Pt is sleeping comfortably in her bed and frequently wakes up with pain and asked for PRN dilaudid. Pt slept >4hrs and No acute event overnight. ISAI HILL RN 04/27/2021 2:12 lan of Care - Estela Argueta RN - 04/26/2021 1149 EST Problem: Daily Care Plan Goals Goal: Care Plan Documentation 04/26/2021 1149 by Estela Argueta RN Outcome: Met This Shift Flowsheets (Taken 04/26/2021 1149) Area of Focus: Safety 04/26/2021 1149 by Estela Argueta RN Outcome: Ongoing Flowsheets (Taken 04/26/2021 0830) Area of Focus: Pain/ Comfort Data: Assumed care at 0700. Patient came with her R arm cellulitis with fluid infusion around the flexor tendon in carpal tunnel. A/OX3. Independent in room and using bedside commode. NWB on RUE. LAPIDARIST Ketamin infusing. Going to NPO after midnight for I&D with potential wound closure tomorrow. C/o pain 6-8/10 on RUE. Reported ear ringing this morning. MD aware. Stop ketamine drip for 1 hr per MD order. Action: Administered medications as per ordered. Given PRN dilaudid, ibuprofen and scheduled tylenol,LAPIDARIST ketamine for pain. Hourly checks and monitor for safety. VSS. Response: Still c/o pain 6-8/10. Pt remain safe in this shift. No needs and concern this time. Continue to monitor the pt. ESTELA MORALES RN 04/26/2021 11:49 lan of Care - Juan Schmitz MD - 04/26/2021 1110 EST Ortho brief: Plan for OR on Sunday04/27/21. Pre Op Checklist - Consent completed - in chart for serial I&D - Extremity signed - will sign on rounds - NPO at midnight 04/26 for OR on the (ok to give sips of water with mediations) - Insert PIV panel ordered (20 gauge or larger) - Case booked Labs: - COVID Test - ordered 04/26/21 Medications: - Pre-operative antibiotics ordered - Anticoagulation/Anti-platelet discontinued (aspirin ok to continue)- na - Insulin (adjust Q6 with NPO status / adjust long acting if appropriate)- na - ARBS/ZOFIA medications discontinued (if necessary)- ben Schmitz MD 04/25/2021 12:57 lan of Care - Viviane Cole RN - 04/26/2021 0210 EST Problem: Daily Care Plan Goals Goal: Care Plan Documentation Flowsheets (Taken 04/26/2021 0133) Area of Focus: Pain/ Comfort Goal This Shift: Patient will have adequate pain management at this shift. Note: D: Patient came with her R arm cellulitis with fluid infusion around the flexor tendon in carpal tunnel, patient is in constant pain rated 7/10. A: patient is able to move her fingers, the color remain pink, warm to touch, Pain med given per eMAR, R hand remain elevated. R : Patient is sleeping on and off, non apparent S/S of pain, her face looks relaxed. lan of Care - Sonya Livingston RN - 04/25/2021 1436 EST Problem: Daily Care Plan Goals Goal: Care Plan Documentation Outcome: Ongoing Flowsheets (Taken 04/25/2021 1428) Area of Focus: Skin Integrity Note: Data: pt is a/o x3, she states a wound care clinic in [place] has been tending to her chronic wound on left foot for 2 yrs. There continues to be open areas on great toe and second toe. The existing dressing has been in place x2 days, per pt and has moderate amount of yellow, strike through drainage. She confirms she has been participating in dsg changes as well at home. The wounds have intact edges, yellow tissue in center, no foul odor noted, no bleeding. It requires soaking in warm water in order to remove dsg. She has been using a surgical boot when she ambulates, fairly good diet per pt. There is trace to +1 edema, decreased dp/pt pulses, pt does not keep extremity elevated on pillow routinely. Action: changed dressing, d/'d dilaudid scheduling agent, monitored pain control regularly. Response: pt removed dressing herself and is very well versed in how to care for wound. Replaced melgisorb AG and wrapped in kerlix. SONYA LIVINGSTON RN 04/25/2021 14:29 lan of Care - Mario Curry, JARRED - 04/25/2021 0626 EST Problem: Daily Care Plan Goals Goal: Care Plan Documentation Outcome: Ongoing Data: Pt is A/Ox3, able to make needs known. Pt has had R-sided BKA, contact guard assist OOB to commode. R forearm splint in place. Pt reports consistent 6/10 pain to RUE- continuous Ketamine drip @ 1.5 mL/hr and Dilaudid LAPIDARIST in place. 3x R-sided IJ in place, continuous LR running @ 75 mL/hr. Pt NPO at midnight pending surgery on RUE today. Pt denies chest pain, SOB, N/V, or headache at this time. Action: Assessment complete, medicated per JUN- new Dilaudid and Ketamine syringes, rates [id number]. Hourly rounding complete, clustered care to promote rest. Response: Pt reports pain now 5/10. VSS, no acute changes overnight. MARIO CURRY RN 04/25/2021 6:26 lan of Care - Kyle Caballero MD - 04/24/2021 1721 EST Ortho brief Preop orders placed in the event of OR and surgeon availability as well as appropriate time for egress. Tentative plan for I&D and wound closure Pre Op Checklist - Consent completed - Extremity to be signed on rounds - NPO at midnight (ok to give sips of water with mediations) - Insert PIV panel ordered (20 gauge or larger) - Case NOT booked Labs: - CBC & Coags not necessary - COVID Test negative 04/23 - Type and Screen, ABO - UPT negative Medications: - mIVF ordered - Pre-operative antibiotics not needed as patient is receiving vancomycin and - Anticoagulation reviewed and discontinued if appropriate - ACS multitrauma patients continue lovenox perioperitavely as default - Insulin (adjust Q6 with NPO status / adjust long acting if appropriate) - ARBS/ZOFIA medications discontinued (if necessary) lan of Care - Catrachita Barnett RN - 04/24/2021 0323 EST Problem: Daily Care Plan Goals Goal: Care Plan Documentation Outcome: Ongoing Data: Returned to the floor from PACU post surgical procedure to right wrist at 2215, care assumed at that time. Alert with episodes of drowsiness upon return. Right hand/arm splinted and covered with clean, dry, intact zofia wrap dressing. Positive color, sensation, movement, temperature to right hand digits. Receiving continuous Ketamine infusions as well as Dilaudid LAPIDARIST through right CVC. Continues on IV antibiotic therapy with tolerance. Voided large amount of clear odorless urine at 0245 without difficulty. Complaints of 6/10 discomfort. Action: Medications administered as ordered, see MAR. Care clustered to promote sleep and comfort. Response: In bed with eyes closed. CATRACHITA BARNETT RN 04/24/2021 3:23 harmacy Note - Alethea Pacheco [facility] - 04/24/2021 0307 EST Pharmacy Note: Vancomycin Monitoring Lindsay Jean Baptiste is a 40 y.o. female who has been ordered to receive vancomycin 1000 mg IV q12 for the treatment of right hand infection. Other antibiotics include: Ceftriaxone 2000 mg q24h 24 hour vitals and labs: Tmax: 36.5 @0158 on 04/24/2021 In/Out: Not Reported BUN/SCr: 8 / 0.69 @0920 on 04/23/21 WBC: 16.72 @0650 on 04/23/21 Vancomycin steady state trough level drawn prior to the 3rd dose on 04/24/21 @0027 = 4.8 mcg/ml. Asssesment and Plan: 1) The goal vancomycin trough concentration range is 10-20 mcg/mL, which is consistent with the documented indication and/or most recent provider recommendation 2) The current vancomycin trough concentration is 4.8 which is = below this range 3) Recommend a change to 1000 mg IV q8h. 4) Pharmacy will repeat the vancomycin trough concentration prior to the 3rd or 4 th dose or sooner if renal function changes. 5) Pharmacy will evaluate the next trough concentration 6) Continue to monitor renal function, CBC, in/out, and Tmax. Alethea Pacheco PharmD rief Op Note - Kyle Caballero MD - 04/23/2021 1910 EST Brief Op Note Date of Surgery: 04/23/2021 Diagnosis: acute carpal tunnel syndrome of the right hand Procedure: open carpal tunnel release Surgeon: Stone Bansal MD, Sourav Bolden MD Agriculture Mechanic: Kyle Caballero MD Anesthesia Type: General Tourniquet Time: 24 minutes Findings: diffuse soft tissue swelling with purulent fluid along FPL EBL: minimal IVF: 500 UOP: na Cultures: x1 Drains: None Implants: None Complications: None perceived Disposition and Condition: PACU in Stable condition per anesthesia. NWB RUE, AAT Splint for RUE Aggressively elevate the RUE Pain control: consulted APS Okay to resume Eliquis Ambualte for DVT ppx Antibiotics per primary Resume diet PT eval Left Open. Plan for delayed closure early next week Kyle Caballero MD 04/23/2021 20:21 lan of Care - Neela Lara RN - 04/23/2021 1238 EST Problem: Patient experiences pain/discomfort Goal: Patient will maintain an acceptable level of pain Description: INTERVENTIONS 1. Administer pain medication as ordered 2. Offer non-pharmacological pain management interventions Outcome: Ongoing Data: Assumed care at 0700. Patient had splint on right wrist. Swelling and redness noted on her right hand. MAR medications administered. Patient has right BKA. Patient is NPO for possible surgery. 5 pillows placed under right arm to keep arm elevated. Patient ambulated to bathroom using her crutches. Patient went to OR at the end of the shift. Action: Monitored patient hourly. Clustered care. PRN Pain medication administered. Response: Patient continued to have severe pain on right hand. NEELA LARA RN 04/23/2021 12:39 lan of Care - Tomeka Huerta MD - 04/23/2021 0153 EST Please keep NPO while we continue to follow clinical exam through the day documented in this encounter Plan of Treatment Scheduled Orders Name Type Priority Associated Order Schedule Diagnoses US GILLIAN AND Vascular Routine One Time for 1 PHYSIOLOGIC STUDY Ultrasound Occurrence s starting 2021 until 2 COMPLETE BLOOD COUNT Lab Routine Leukopenia, Expecte d: unspecified type 05/06/2021, Expires: 2022 Scheduled Referrals Name Type Priority Associated Diagnoses Order S chedule AMB CONS/FOLLOW UP Outpatient Routine/Next Acute carpal tunnel Ex pected: ORTHOPEDICS Referral Available syndrome, right 05/10/2021 (Approximate), Expires: 05/03/2022 AMB CONS/FOLLOW UP Outpatient Urgent Right arm honey lulitis Expected: HOME HEALTH Referral Open wound of left 2 SERVICES great toe, initial (Approxim ate), encounter Expires: Group C 05/03/2022 streptococcal infection Skin ulcer of left great toe, unspecified ulcer stage (HCC-CMS) (HCC) AMB CONS/FOLLOW UP Outpatient Urgent Skin ulcer of left Exp ected: HOME HEALTH Referral great toe, 05/06/2021 SERVICES unspecified ulcer (Approxima te), stage (HCC-CMS) Expires: (HCC) 05/04/2022 documented as of this encounter Procedures Procedure Name Priority Date/Time Associated Comments Diagnosis ORDERS - SCANNED 05/06/2021 13:15 EST ECG REPORT - SCANNED 05/06/2021 13:15 EST DIFFERENTIAL MANUAL Today 05/04/2021 5:52 Resul ts for this EST procedure are i n the results section. COMPLETE BLOOD COUNT Routine 05/04/2021 5:52 Resu lts for this AND DIFFERENTIAL EST procedure a re in the results section. BASIC METABOLIC PANEL Routine 05/04/2021 5:51 Res ults for this (BMP) EST procedure are i n the results section. TRANSTHORACIC ECHO Routine 05/03/2021 14:50 Resul ts for this (TTE) COMPLETE EST procedure are in the results section. IRRIGATION AND 05/03/2021 9:43 Right arm DEBRIDEMENT, TISSUE, EST cellulitis INCLUDING MUSCLE OR Acute carpal tunnel FASCIA, EXCISIONAL, syndrome, right GREATER THAN 20 SQ CM CRYOGLOBULIN, SERUM Routine 05/03/2021 6:14 Resul ts for this EST procedure are i n the results section. HOLD RED TOP Routine 05/03/2021 5:43 Results for this EST procedure are i n the results section. HOLD RED TOP Routine 05/03/2021 5:42 Results for this EST procedure are i n the results section. BASIC METABOLIC PANEL Routine 05/03/2021 5:25 Res ults for this (BMP) EST procedure are i n the results section. COMPLETE BLOOD COUNT Routine 05/03/2021 5:24 Resu lts for this AND DIFFERENTIAL EST procedure a re in the results section. BACTERIAL CULTURE, Routine 05/02/2021 16:26 Resul ts for this BLOOD EST procedure are i n the results section. BACTERIAL CULTURE, Routine 05/02/2021 16:26 Resul ts for this BLOOD EST procedure are i n the results section. IBC Add-On 05/02/2021 6:05 Results for this EST procedure are i n the results section. COMPLETE BLOOD COUNT Routine 05/02/2021 6:05 Resu lts for this AND DIFFERENTIAL EST procedure a re in the results section. IRON Add-On 05/02/2021 6:05 Results for this EST procedure are i n the results section. FERRITIN Add-On 05/02/2021 6:05 Results for this EST procedure are i n the results section. BASIC METABOLIC PANEL Routine 05/02/2021 6:05 Res ults for this (BMP) EST procedure are i n the results section. COMPLETE BLOOD COUNT Routine 05/01/2021 5:32 Resu lts for this AND DIFFERENTIAL EST procedure a re in the results section. BASIC METABOLIC PANEL Routine 05/01/2021 5:32 Res ults for this (BMP) EST procedure are i n the results section. IRRIGATION AND 04/30/2021 8:26 Right arm DEBRIDEMENT, TISSUE, EST cellulitis INCLUDING MUSCLE OR Acute carpal tunnel FASCIA, EXCISIONAL, syndrome, right GREATER THAN 20 SQ CM BASIC METABOLIC PANEL Routine 04/30/2021 5:42 Res ults for this (BMP) EST procedure are i n the results section. COMPLETE BLOOD COUNT Routine 04/30/2021 5:41 Resu lts for this AND DIFFERENTIAL EST procedure a re in the results section. COVID-19 TEST [facility] Today 04/29/2021 15:26 LAB PCR EST COVID-19 TESTING Routine 04/29/2021 15:26 Results for this EST procedure are i n the results section. COMPLETE BLOOD COUNT Routine 04/29/2021 5:38 Resu lts for this AND DIFFERENTIAL EST procedure a re in the results section. BASIC METABOLIC PANEL Routine 04/29/2021 5:38 Res ults for this (BMP) EST procedure are i n the results section. ECG REPORT - SCANNED 04/28/2021 16:13 EST BASIC METABOLIC PANEL Routine 04/28/2021 7:43 Res ults for this (BMP) EST procedure are i n the results section. COMPLETE BLOOD COUNT Routine 04/28/2021 7:03 Resu lts for this AND DIFFERENTIAL EST procedure a re in the results section. EKG 12-LEAD Routine 04/27/2021 13:19 Results for this EST procedure are i n the results section. ANAEROBE Routine 04/27/2021 9:38 Results for this CULTURE/SMEAR(INC. EST procedure are in AEROBES), OTHER the results section. COMPLEX INCISION AND 04/27/2021 8:52 Right arm DRAINAGE, WOUND, UPPER EST cellulitis EXTREMITY Special Needs 9L saline, TUR tubing, cultu res HEPATITIS A ANTIBODY Today 04/27/2021 5:30 EST Results for this IGM procedure are i n the results section. HEPATITIS A TOTAL Routine 04/27/2021 5:30 EST Res ults for this ANTIBODY W REFLEX procedure are in the results section. HEPATITIS B CORE Routine 04/27/2021 5:30 EST Resu lts for this ANTIBODY (TOTAL) procedure a re in the results section. HEPATITIS B SURFACE Routine 04/27/2021 5:30 EST R esults for this ANTIBODY procedure are i n the results section. HEPATITIS B SURFACE Routine 04/27/2021 5:30 EST R esults for this ANTIGEN procedure are i n the results section. COMPLETE BLOOD COUNT Routine 04/27/2021 5:30 EST Results for this AND DIFFERENTIAL procedure a re in the results section. HIV 1/2 ANTIGEN AND Routine 04/27/2021 5:30 EST R esults for this ANTIBODY, 4TH procedure are in GENERATION the results section. BASIC METABOLIC PANEL Routine 04/27/2021 5:30 EST Results for this (BMP) procedure are i n the results section. COVID-19 TEST [facility] Today 04/26/2021 11:20 EST PCR COVID-19 TESTING Routine 04/26/2021 11:20 EST Res ults for this procedure are i n the results section. BASIC METABOLIC PANEL Routine 04/26/2021 6:19 EST Results for this (BMP) procedure are i n the results section. COMPLETE BLOOD COUNT Routine 04/26/2021 6:18 EST Results for this AND DIFFERENTIAL procedure a re in the results section. COMPLETE BLOOD COUNT Routine 04/25/2021 6:16 EST Results for this AND DIFFERENTIAL procedure a re in the results section. BASIC METABOLIC PANEL Routine 04/25/2021 6:15 EST Results for this (BMP) procedure are i n the results section. COMPLETE BLOOD COUNT Routine 04/24/2021 6:14 EST Results for this AND DIFFERENTIAL procedure a re in the results section. BASIC METABOLIC PANEL Routine 04/24/2021 6:13 EST Results for this (BMP) procedure are i n the results section. VANCOMYCIN TROUGH Timed 04/24/2021 0:27 EST Res ults for this procedure are i n the results section. ANAEROBE Routine 04/23/2021 19:53 EST Results for this CULTURE/SMEAR(INC. procedure are in AEROBES), OTHER the results section. RELEASE, CARPAL TUNNEL, 04/23/2021 18:50 EST Acute car pal OPEN tunnel syndrome, right TEST, URINE STAT 04/23/2021 18:31 EST Results for this procedure are i n the results section. COMPREHENSIVE METABOLIC Routine 04/23/2021 9:20 EST Results for this PANEL (CMP) procedure are i n the results section. COMPLETE BLOOD COUNT Routine 04/23/2021 6:50 EST Results for this AND DIFFERENTIAL procedure a re in the results section. MAGNESIUM Add-On 04/23/2021 6:50 EST Results for this procedure are i n the results section. BASIC METABOLIC PANEL Routine 04/23/2021 6:50 EST Results for this (BMP) procedure are i n the results section. COVID-19 TEST [facility] Today 04/23/2021 2:53 EST PCR COVID-19 TESTING Routine 04/23/2021 2:53 EST Resu lts for this procedure are i n the results section. CK STAT 04/23/2021 1:57 EST Results for this procedure are i n the results section. XR WRIST RIGHT 3 OR STAT 04/22/2021 18:58 EST Results for this MORE VIEWS procedure are i n the results section. XR FOOT LEFT 3 OR MORE STAT 04/22/2021 18:57 EST Results for this VIEWS procedure are i n the results section. XR FOREARM RIGHT 2 STAT 04/22/2021 18:56 EST R esults for this VIEWS procedure are i n the results section. XR HAND RIGHT 3 OR MORE STAT 04/22/2021 18:55 EST Results for this VIEWS procedure are i n the results section. LACTIC ACID STAT 04/22/2021 16:39 EST Results for this procedure are i n the results section. COMPLETE BLOOD COUNT STAT 04/22/2021 16:39 EST Results for this AND DIFFERENTIAL procedure a re in the results section. BASIC METABOLIC PANEL STAT 04/22/2021 16:39 EST Results for this (BMP) procedure are i n the results section. CT OUTSIDE IMAGES MSK Routine 04/22/2021 13:22 EST Results for this procedure are i n the results section. documented in this encounter Results (ABNORMAL) DIFFERENTIAL MANUAL (05/04/2021 5:52 EST) Neutrophils 57.0 % [facility] Lymphocytes 31.0 % [facility] Atypical Lymphocytes 3.0 % [facility] Monocytes 6.0 % [facility] Eosinophils 3.0 % [facility] Absolute Neutrophils 1.11 (L) 2.20 - 8.85 [facility] LABORATORY SERVICES Absolute Lymphocytes 0.60 (L) 1.09 - 3.30 [facility] LABORATORY SERVICES Absolute Atypical 0.06 K/[facility] Lymphocytes LABORATORY SERVICES Absolute Monocytes 0.12 0.10 - 0.80 [facility] Absolute Eosinophils 0.06 0.03 - 0.61 [facility] LABORATORY SERVICES Specimen Blood - Venous blood (substance) Performing Organization Address City/State/ZIP Code Phon e Number [facility] [address] [place] [address] SERVICES (ABNORMAL) COMPLETE BLOOD COUNT AND DIFFERENTIAL (05/04/2021 5:52 EST) Pathologist Sig nature WBC 1.95 (L) 4.00 - 12.40 [facility] LABORATORY SERVICES RBC 3.29 (L) 3.86 - 5.04 [facility] LABORATORY SERVICES Hemoglobin 8.9 (L) 11.6 - 15.2 [facility] gm/dL LABORATORY SERVICES HCT 29.1 (L) 34.9 - 44.4 % [facility] MCV 88 81 - 98 fl [facility] MCH 27.1 26.7 - 33.3 pg [facility] MCHC 30.6 (L) 32.1 - 35.9 [facility] gm/dL LABORATORY SERVICES RDW-CV 12.7 <14.7 % [facility] RDW-SD 41.6 <50.4 fl [facility] PLT 218 141 - 377 K/[facility] LABORATORY SERVICES MPV 10.6 9.5 - 12.7 fl [facility] Type of Manual [facility] Differential: LABORATORY SERVICES Specimen Blood - Venous blood (substance) Performing Organization Address City/[facility] Phon e Number [facility] [address] [place] [address] SERVICES BASIC METABOLIC PANEL (BMP) (05/04/2021 5:51 EST) Pathologist Sig nature Sodium 137 136 - 145 mmol/L [facility] Potassium 4.2 3.5 - 5.0 mmol/L [facility] Chloride 99 96 - 110 mmol/L [facility] CO2 Total 29 22 - 32 mmol/L [facility] Anion Gap 9 8 - 16 [facility] Glucose 97 70 - 100 mg/dL [facility] Calcium 8.5 8.5 - 10.5 mg/dL [facility] BUN 17 10 - 26 mg/dL [facility] Creatinine 0.59 0.52 - 1.04 mg/dL [facility] eGFR 117 >60 mL/min/1.73m2 [facility] Specimen Blood - Venous blood (substance) Performing Organization Address City/[facility] Code Phon e Number [facility] [address] [place] [address] SERVICES TRANSTHORACIC ECHO (TTE) COMPLETE W/DOPPLER W/CF NO CONTRAST (05/03/2021 14:50 EST) Pathologist Sig nature [place] Atrial Length A2C 5.5 cm [facility] [place] Atrial Area A4C 19.8 cm2 [facility] [place] ID/bsa, A-P 2.3 cm/m2 [facility] LV ID, ED, PLAX 4.6 3.5 - 6.0 cm [facility] LVIDD BY MMODE 4.6 cm [facility] LV ID, ES, PLAX 3.0 2.1 - 4.0 cm [facility] LA ID, A-P, ES 3.6 cm [facility] LV PW thickness, ED, PLAX 1.0 0.6 - 1.1 cm [facility] Aortic root ID 2.6 cm [facility] LV ejection fraction, 1-p 67 % [facility] A4C LVOT mean gradient, S 3 mmHg [facility] AV LVOT peak gradient 5 mmHg [facility] LV e', lateral 0.13 m/s [facility] Mitral deceleration time 292 ms [facility] LV IVRT, DP 88 msec [facility] LVOT area 3.1 cm2 [facility] LVOT peak velocity, S 1.2 m/s [facility] LVOT VTI, S 21.8 cm [facility] Stroke volume (SV), LVOT 68 ml [facility] DP Mitral peak gradient, D 2 mmHg [facility] RE LVOT mean velocity, S 0.8 m/s [facility] Mitral E-wave peak 0.7 m/s [facility] velocity Mitral A-wave peak 0.8 m/s [facility] velocity LV Systolic Volume Index 21.0 mL/m2 [facility] LV Diastolic Volume Index 57.0 mL/m2 [facility] LA Atrial Length A4C 5.8 cm [facility] LVOT ID, S 2.0 cm [facility] EF 63 % [facility] LA volume, ES, BP 63.0 ml [facility] LA volume/bsa, ES, A4C 35.0 ml/m2 [facility] LA volumes, ES, A4C 55.0 ml [facility] LA volume/bsa, ES, BP 40.0 ml/m2 [facility] LV Systolic Volume 34 mL [facility] LV Diastolic Volume 91 mL [facility] Stroke index (SV/bsa) LVOT 43.0 ml/m2 [facility] DP Interventricular Septum to 0.9 [facility] Posterior Wall Thickness Ratio IVS thickness, ED, PLAX 0.9 cm [facility] LV e', medial 0.07 m/s [facility] LV e', average 0.10 m/s [facility] Pulmonic valve mean 1 cm/s [facility] velocity, S Ascending aorta ID, a-p 2.8 cm [facility] LA Atrial Area A2C 19.8 cm2 [facility] LA/aortic root ratio 1.38 [facility] LV end diastolic volume 66 ml [facility] RE 1-p A2C LV ejection fraction, 1-p 56 % [facility] A2C LV E/e', lateral 6.0 [facility] LV E/e', medial 0.1 [facility] LV E/e', average 3 [facility] LV end-diastolic volume, 115 ml [facility] 1-p A4C EF - 3D Echo 63 % [facility] Specimen Narrative [facility] - 05/03/2021 15:[address] ?Left??Ventricle: The left ventricular cavity was normal in size. Left ventricular systolic function was normal with an ejection fraction of 60-65%. The estimated left ventricular e jection fraction by 3-dimensional volume rendering was 63 %. ?Right??Ventricle: The right ventricular cavity was normal in size. Right ventricular systolic function was normal . No evidence of endocarditis was seen. Performing Organization Address City/[facility]/ZIP Code Phon e Number [facility] CRYOGLOBULIN, SERUM (05/03/2021 6:14 EST) Cryoglobulin, S Negative Negative %ppt [facility] Comment: LABORATORIES This test is negative at 24 hours. All samples are hel d and reviewed again at 7 days. If delayed precipitation occ urs after 7 days, Immunofixation will be performed and an additional report will follow. Test Performed by: [facility] [address] [place] [address] Rail Car Mechanic: Jake Cordova M.D. Ph.D.; CLIA# [id number] Specimen Blood - Venous blood (substance) Performing Organization Address [facility] Phon e Number [facility]ORATORIES [address] [place] [address] HOLD RED TOP (05/03/2021 5:43 EST) Pathologist Sig nature Hold Hold [facility] LABORATOR Y SERVICES Specimen Blood - Venous blood (substance) Performing Organization Address [facility] Phon e Number [facility] [address] [place] [address] SERVICES HOLD RED TOP (05/03/2021 5:42 EST) Pathologist Sig nature Hold Hold [facility] LABORATOR Y SERVICES Specimen Blood - Venous blood (substance) Performing Organization Address [facility] Phon e Number [facility] [address] [place] [address] SERVICES (ABNORMAL) BASIC METABOLIC PANEL (BMP) (05/03/2021 5:25 EST) Pathologist Sig nature Sodium 137 136 - 145 mmol/L [facility]OR[facility] SERVICES Potassium 4.2 3.5 - 5.0 mmol/L [facility] SERVICES Chloride 98 96 - 110 mmol/L [facility] SERVICES CO2 Total 29 22 - 32 mmol/L [facility] SERVICES Anion Gap 10 8 - 16 [facility] SERVICES Glucose 111 (H) 70 - 100 mg/dL [facility] SERVICES Calcium 9.0 8.5 - 10.5 mg/dL [facility] LABOR[facility] SERVICES BUN 21 10 - 26 mg/dL [facility] SERVICES Creatinine 0.69 0.52 - 1.04 mg/dL [facility] LABORATORY SERVICES eGFR 111 >60 mL/min/1.73m2 [facility] LAB[facility]ORY SERVICES Specimen Blood - Venous blood (substance) Performing Organization Address City/State/ZIP Code Phon e Number [facility] [address] [place] [address] SERVICES (ABNORMAL) COMPLETE BLOOD COUNT AND DIFFERENTIAL (05/03/2021 5:24 EST) WBC 2.37 (L) 4.00 - 12.40 [facility] LABORATORY SERVICES RBC 3.41 (L) 3.86 - 5.04 [facility] LABORATORY SERVICES Hemoglobin 9.7 (L) 11.6 - 15.2 [facility] gm/dL LABORATORY SERVICES HCT 29.4 (L) 34.9 - 44.4 % [facility] LABORATORY SERVICES MCV 86 81 - 98 fl [facility] LABORATORY SERVICES MCH 28.4 26.7 - 33.3 pg [facility] LABORATORY SERVICES MCHC 33.0 32.1 - 35.9 [facility] gm/dL LABORATORY SERVICES RDW-CV 13.0 <14.7 % [facility] LABORATORY SERVICES RDW-SD 40.5 <50.4 fl [facility] LABORATORY SERVICES PLT 236 141 - 377 K/[facility] LABORATORY SERVICES MPV 10.9 9.5 - 12.7 fl [facility] LABOR[facility]ORY SERVICES Neutrophils 63.7 % [facility] LABOR[facility]ORY SERVICES Lymphocytes 20.7 % [facility] LABOR[facility]ORY SERVICES Monocytes 12.7 % [facility] LABORATORY SERVICES Eosinophils 0.8 % [facility] LABORATORY SERVICES Basophils 0.8 % [facility] LABORATORY SERVICES Immature Grans 1.3 % [facility] LABORATORY SERVICES Absolute Neutrophils 1.51 (L) 2.20 - 8.85 [facility] LABORATORY SERVICES Absolute Lymphocytes 0.49 (L) 1.09 - 3.30 [facility] LABORATORY SERVICES Absolute Monocytes 0.30 0.10 - 0.80 [facility] LABORATORY SERVICES Absolute Eosinophils 0.02 (L) 0.03 - 0.61 [facility] LABORATORY SERVICES Absolute Basophils 0.02 0.01 - 0.11 [facility] LABORATORY SERVICES Absolute Immature 0.03 0.00 - 0.06 [facility] LABORATORY SERVICES Type of Differential: Auto [facility] LABORATORY SERVICES Specimen Blood - Venous blood (substance) Performing Organization Address City/State/ZIP Code Phon e Number [facility] [address] [place] [address] SERVICES BACTERIAL CULTURE, BLOOD (05/02/2021 16:26 EST) Pathologist Sig nature Organism ID No Growth at 5 days [facility] LABORATORY SERVICES Specimen Blood - Venous blood (substance) Performing Organization Address City/[facility]/ZIP Code Phon e Number [facility] [address] [place] [address] SERVICES BACTERIAL CULTURE, BLOOD (05/02/2021 16:26 EST) Pathologist Sig nature Organism ID No Growth at 5 days [facility] LABORATORY SERVICES Specimen Blood - Venous blood (substance) Performing Organization Address City/[facility]/ZIP Code Phon e Number [facility] [address] [place] [address] SERVICES FERRITIN (05/02/2021 6:05 EST) Pathologist Sig nature Ferritin 61 10 - 291 ng/mL [facility] LABORAT ORY SERVICES Specimen Blood - Venous blood (substance) Performing Organization Address City/[facility]/ZIP Code Phon e Number [facility]ORATORY [address] [place] [id number] SERVICES IBC (05/02/2021 6:05 EST) Pathologist Sig nature Iron Binding 320 265 - 497 ??g/dL [facility] [employer] LABORATORY SERVICES Specimen Blood - Venous blood (substance) Performing Organization Address City/[facility]/ZIP Code Phon e Number [facility]ORY [address] [place] [address] SERVICES IRON (05/02/2021 6:05 EST) Pathologist Sig nature Iron 39 37 - 170 ??g/dL [facility] LABORA TORY SERVICES Specimen Blood - Venous blood (substance) Performing Organization Address City/[facility]/ZIP Code Phon e Number [facility] [address] [place] [address] SERVICES (ABNORMAL) BASIC METABOLIC PANEL (BMP) (05/02/2021 6:05 EST) Pathologist Sig nature Sodium 135 (L) 136 - 145 mmol/L [facility] LABORATORY SERVICES Potassium 4.0 3.5 - 5.0 mmol/L [facility] LABORATORY SERVICES Chloride 98 96 - 110 mmol/L [facility] LABORATORY SERVICES CO2 Total 29 22 - 32 mmol/L [facility] LABORATORY SERVICES Anion Gap 8 8 - 16 [facility] LABORATORY SERVICES Glucose 93 70 - 100 mg/dL [facility] LABORATORY SERVICES Calcium 8.9 8.5 - 10.5 mg/dL [facility] LABORATORY SERVICES BUN 19 10 - 26 mg/dL [facility] LABORATORY SERVICES Creatinine 0.64 0.52 - 1.04 mg/dL [facility] LABORATORY SERVICES eGFR 114 >60 mL/min/1.73m2 [facility] LABORATORY SERVICES Specimen Blood - Venous blood (substance) Performing Organization Address City/State/ZIP Code Phon e Number [facility]ORY [address] [place] [address] SERVICES (ABNORMAL) COMPLETE BLOOD COUNT AND DIFFERENTIAL (05/02/2021 6:05 EST) WBC 4.30 4.00 - 12.40 [facility] LABORATORY SERVICES RBC 3.24 (L) 3.86 - 5.04 [facility] LABORATORY SERVICES Hemoglobin 8.9 (L) 11.6 - 15.2 [facility] gm/dL LABORATORY SERVICES HCT 29.2 (L) 34.9 - 44.4 % [facility] LABORATORY SERVICES MCV 90 81 - 98 fl [facility] LABORATORY SERVICES MCH 27.5 26.7 - 33.3 pg [facility] LABORATORY SERVICES MCHC 30.5 (L) 32.1 - 35.9 [facility] gm/dL LABORATORY SERVICES RDW-CV 12.7 <14.7 % [facility] LABORATORY SERVICES RDW-SD 41.8 <50.4 fl [facility] LABORATORY SERVICES PLT 220 141 - 377 /[facility] LABORATORY SERVICES MPV 10.4 9.5 - 12.7 fl [facility] LABORATORY SERVICES Neutrophils 76.9 % [facility] LABORATORY SERVICES Lymphocytes 9.8 % [facility] LABORATORY SERVICES Monocytes 10.0 % [facility] LABORATORY SERVICES Eosinophils 1.2 % [facility] LABORATORY SERVICES Basophils 0.7 % [facility] LABORATORY SERVICES Immature Grans 1.4 % [facility] LABORATORY SERVICES Absolute Neutrophils 3.31 2.20 - 8.85 [facility] LABORATORY SERVICES Absolute Lymphocytes 0.42 (L) 1.09 - 3.30 [facility] K/[facility] LABORATORY SERVICES Absolute Monocytes 0.43 0.10 - 0.80 [facility] LABORATORY SERVICES Absolute Eosinophils 0.05 0.03 - 0.61 [facility] LABORATORY SERVICES Absolute Basophils 0.03 0.01 - 0.11 [facility] K/[facility] LABORATORY SERVICES Absolute Immature 0.06 0.00 - 0.06 [facility] LABORATORY SERVICES Type of Differential: Auto [facility] LABORATORY SERVICES Specimen Blood - Venous blood (substance) Performing Organization Address [facility]/[place] [facility] [place] [facility] [address] [place] [address] SERVICES (ABNORMAL) BASIC METABOLIC PANEL (BMP) (05/01/2021 5:32 EST) Pathologist Sig nature Sodium 137 136 - 145 mmol/L [facility] LABORATORY SERVICES Potassium 4.8 3.5 - 5.0 mmol/L [facility] LABORATORY SERVICES Chloride 98 96 - 110 mmol/L [facility] LABORATORY SERVICES CO2 Total 29 22 - 32 mmol/L [facility] LABORATORY SERVICES Anion Gap 10 8 - 16 [facility] LABORATORY SERVICES Glucose 100 70 - 100 mg/dL [facility] LABORATORY SERVICES Calcium 9.1 8.5 - 10.5 mg/dL [facility] LABORATORY SERVICES BUN 28 (H) 10 - 26 mg/dL [facility] LABORATORY SERVICES Creatinine 0.72 0.52 - 1.04 mg/dL [facility] LABORATORY SERVICES eGFR 107 >60 mL/min/1.73m2 [facility] LABORATORY SERVICES Specimen Blood - Venous blood (substance) Performing Organization Address City/[facility]/ZIP Code Phon e Number [facility] LABORATORY [address] [place] [address] SERVICES (ABNORMAL) COMPLETE BLOOD COUNT AND DIFFERENTIAL (05/01/2021 5:32 EST) WBC 6.24 4.00 - 12.40 [facility] LABORATORY SERVICES RBC 3.36 (L) 3.86 - 5.04 [facility] M/[facility] LABORATORY SERVICES Hemoglobin 9.6 (L) 11.6 - 15.2 [facility] gm/dL LABORATORY SERVICES HCT 29.5 (L) 34.9 - 44.4 % [facility] LABORATORY SERVICES MCV 88 81 - 98 fl [facility] LABORATORY SERVICES MCH 28.6 26.7 - 33.3 pg [facility] LABORATORY SERVICES MCHC 32.5 32.1 - 35.9 [facility] gm/dL LABORATORY SERVICES RDW-CV 12.9 <14.7 % [facility] LABORATORY SERVICES RDW-SD 41.1 <50.4 fl [facility] LABORATORY SERVICES PLT 351 141 - 377 K/[facility] LABORATORY SERVICES MPV 9.8 9.5 - 12.7 fl [facility] LABORATORY SERVICES Neutrophils 74.3 % [facility] LABORATORY SERVICES Lymphocytes 12.7 % [facility] LABORATORY SERVICES Monocytes 7.7 % [facility] LABORATORY SERVICES Eosinophils 2.6 % [facility] LABORATORY SERVICES Basophils 0.8 % [facility] LABORATORY SERVICES Immature Grans 1.9 % [facility] LABORATORY SERVICES Absolute Neutrophils 4.64 2.20 - 8.85 [facility] LABORATORY SERVICES Absolute Lymphocytes 0.79 (L) 1.09 - 3.30 [facility] LABORATORY SERVICES Absolute Monocytes 0.48 0.10 - 0.80 [facility] LABORATORY SERVICES Absolute Eosinophils 0.16 0.03 - 0.61 [facility] LABORATORY SERVICES Absolute Basophils 0.05 0.01 - 0.11 [facility] LABORATORY SERVICES Absolute Immature 0.12 (H) 0.00 - 0.06 [facility] LABORATORY SERVICES Type of Differential: Auto [facility] LABORATORY SERVICES Specimen Blood - Venous blood (substance) Performing Organization Address City/State/ZIP Code Phon e Number [facility] LABORATORY [address] [place] [address] SERVICES BASIC METABOLIC PANEL (BMP) (04/30/2021 5:42 EST) Pathologist Sig nature Sodium 138 136 - 145 mmol/L [facility] LABORATORY SERVICES Potassium 4.8 3.5 - 5.0 mmol/L [facility] LABORATORY SERVICES Chloride 98 96 - 110 mmol/L [facility] LABORATORY SERVICES CO2 Total 29 22 - 32 mmol/L [facility] LABORATORY SERVICES Anion Gap 11 8 - 16 [facility] LABORATORY SERVICES Glucose 99 70 - 100 mg/dL [facility] LABORATORY SERVICES Calcium 9.4 8.5 - 10.5 mg/dL [facility] LABORATORY SERVICES BUN 24 10 - 26 mg/dL [facility] LABORATORY SERVICES Creatinine 0.69 0.52 - 1.04 mg/dL [facility] LABORATORY SERVICES eGFR 111 >60 mL/min/1.73m2 [facility] LABORATORY SERVICES Specimen Blood - Venous blood (substance) Performing Organization Address City/State/ZIP Code Phon e Number [facility] LABORATORY [address] [place] [address] SERVICES (ABNORMAL) COMPLETE BLOOD COUNT AND DIFFERENTIAL (04/30/2021 5:41 EST) WBC 7.18 4.00 - 12.40 [facility] LABORATORY SERVICES RBC 3.65 (L) 3.86 - 5.04 [facility] LABORATORY SERVICES Hemoglobin 10.1 (L) 11.6 - 15.2 [facility] gm/dL LABORATORY SERVICES HCT 32.9 (L) 34.9 - 44.4 % [facility] LABORATORY SERVICES MCV 90 81 - 98 fl [facility] LABORATORY SERVICES MCH 27.7 26.7 - 33.3 pg [facility] LABORATORY SERVICES MCHC 30.7 (L) 32.1 - 35.9 [facility] gm/dL LABORATORY SERVICES RDW-CV 13.0 <14.7 % [facility] LABORATORY SERVICES RDW-SD 42.9 <50.4 fl [facility] LABORATORY SERVICES PLT 359 141 - 377 K/[facility] LABORATORY SERVICES MPV 9.9 9.5 - 12.7 fl [facility] LABORATORY SERVICES Neutrophils 64.6 % [facility] LABORATORY SERVICES Lymphocytes 19.5 % [facility] LABORATORY SERVICES Monocytes 8.1 % [facility] LABORATORY SERVICES Eosinophils 2.9 % [facility] LABORATORY SERVICES Basophils 0.7 % [facility] LABORATORY SERVICES Immature Grans 4.2 % [facility] LABORATORY SERVICES Absolute Neutrophils 4.64 2.20 - 8.85 [facility] LABORATORY SERVICES Absolute Lymphocytes 1.40 1.09 - 3.30 [facility] LABORATORY SERVICES Absolute Monocytes 0.58 0.10 - 0.80 [facility] LABORATORY SERVICES Absolute Eosinophils 0.21 0.03 - 0.61 [facility] Absolute Basophils 0.05 0.01 - 0.11 [facility] K/[facility] LABORATORY SERVICES Absolute Immature 0.30 (H) 0.00 - 0.06 [facility] /[facility] LABORATORY SERVICES Type of Differential: Auto [facility] LABORATORY SERVICES Specimen Blood - Blood sample taken from central line (situation) Performing Organization Address [facility] Phon e Number [facility] LABORATORY [address] [place] [address] SERVICES COVID-19 TEST [facility] PCR (04/29/2021 15:26 EST) Specimen Swab - Entire nasopharynx (body structur e) Performing Organization Address [facility] Phon e Number [facility]ORATORY [address] [place] [address] SERVICES COVID-19 TESTING (04/29/2021 15:26 EST) COVID-19 rt-PCR Negative Negative [facility] Comment: [facility] This test has not been FDA c leared or approved. This test has been authorized by FDA under an EUA for use by authorized laboratories. This test has been authorized only for detection of nucleic acid fro SERVICES m 2019-nCoV, not for any oth er viruses or pathogens. This test is only authorized for the duration of the declaration that circumstances exist justifying the authorization of emergency use of in vitro d iagnostic tests for detectio n and/or diagnosis of 2019-nCoV under section 564(b)(1) of Act, 21 U.S.C ?? 360bbb-3(b) (1), unless the authorization is terminated or revoked sooner. Negative results do not prec lude 2019-nCoV infection and should not be used as the sole basis for treatment or other patient management decisions. Negative results must be combined with clinical observa tions, patient history, and epidemiological informatio n. Performed on the [employer]dy[employer] Fusion instrument Performing Lab [place] [facility] LABORATORY SERVICES Specimen Swab - Entire nasopharynx (body structur e) Performing Organization Address [facility] Phon e Number [facility]OR[facility]ORY [address] [place] [address] SERVICES BASIC METABOLIC PANEL (BMP) (04/29/2021 5:38 EST) Pathologist Sig nature Sodium 137 136 - 145 mmol/L [facility] LABORATORY SERVICES Potassium 4.7 3.5 - 5.0 mmol/L [facility] LABORATORY SERVICES Chloride 99 96 - 110 mmol/L [facility] LABORATORY SERVICES CO2 Total 29 22 - 32 mmol/L [facility] LABORATORY SERVICES Anion Gap 9 8 - 16 [facility] LABORATORY SERVICES Glucose 99 70 - 100 mg/dL [facility] LABORATORY SERVICES Calcium 9.3 8.5 - 10.5 mg/dL [facility] LABORATORY SERVICES BUN 18 10 - 26 mg/dL [facility] LABORATORY SERVICES Creatinine 0.60 0.52 - 1.04 mg/dL [facility] LABORATORY SERVICES eGFR 116 >60 mL/min/1.73m2 [facility] LABORATORY SERVICES Specimen Blood - Venous blood (substance) Performing Organization Address City/State/ZIP Code Phon e Number [facility]OR[facility]ORY [address] [place] [address] SERVICES (ABNORMAL) COMPLETE BLOOD COUNT AND DIFFERENTIAL (04/29/2021 5:38 EST) WBC 10.20 4.00 - 12.40 [facility] K/[facility] LABORATORY SERVICES RBC 3.45 (L) 3.86 - 5.04 [facility] M/[facility] LABORATORY SERVICES Hemoglobin 9.8 (L) 11.6 - 15.2 [facility] gm/dL LABORATORY SERVICES HCT 30.2 (L) 34.9 - 44.4 % [facility] LABORATORY SERVICES MCV 88 81 - 98 fl [facility] LABORATORY SERVICES MCH 28.4 26.7 - 33.3 pg [facility] LABORATORY SERVICES MCHC 32.5 32.1 - 35.9 [facility] gm/dL LABORATORY SERVICES RDW-CV 13.1 <14.7 % [facility] LABORATORY SERVICES RDW-SD 41.3 <50.4 fl [facility] LABORATORY SERVICES PLT 312 141 - 377 K/[facility] LABORATORY SERVICES MPV 9.9 9.5 - 12.7 fl [facility] LABORATORY SERVICES Neutrophils 74.9 % [facility] LABORATORY SERVICES Lymphocytes 12.2 % [facility] LABORATORY SERVICES Monocytes 7.5 % [facility] LABORATORY SERVICES Eosinophils 2.8 % [facility] LABORATORY SERVICES Basophils 0.5 % [facility] LABORATORY SERVICES Immature Grans 2.1 % [facility] LABORATORY SERVICES Absolute Neutrophils 7.64 2.20 - 8.85 [facility] LABORATORY SERVICES Absolute Lymphocytes 1.24 1.09 - 3.30 [facility] LABORATORY SERVICES Absolute Monocytes 0.77 0.10 - 0.80 [facility] LABORATORY SERVICES Absolute Eosinophils 0.29 0.03 - 0.61 [facility] LABORATORY SERVICES Absolute Basophils 0.05 0.01 - 0.11 [facility] LABORATORY SERVICES Absolute Immature 0.21 (H) 0.00 - 0.06 [facility] LABORATORY SERVICES Type of Differential: Auto [facility] LABORATORY SERVICES Specimen Blood - Venous blood (substance) Performing Organization Address City/[facility]/ZIP Code Phon e Number [facility] LABORATORY [address] [place] [address] SERVICES BASIC METABOLIC PANEL (BMP) (04/28/2021 7:43 EST) Pathologist Sig nature Sodium 139 136 - 145 mmol/L [facility] LABORATORY SERVICES Potassium 4.6 3.5 - 5.0 mmol/L [facility] LABORATORY SERVICES Chloride 99 96 - 110 mmol/L [facility] LABORATORY SERVICES CO2 Total 28 22 - 32 mmol/L [facility] LABORATORY SERVICES Anion Gap 12 8 - 16 [facility] LABORATORY SERVICES Glucose 99 70 - 100 mg/dL [facility] LABORATORY SERVICES Calcium 8.9 8.5 - 10.5 mg/dL [facility] LABORATORY SERVICES BUN 14 10 - 26 mg/dL [facility] SERVICES Creatinine 0.66 0.52 - 1.04 mg/dL [facility] LABOR[facility]ORY SERVICES eGFR 112 >60 mL/min/1.73m2 [facility]ORY SERVICES Specimen Blood - Venous blood (substance) Performing Organization Address City/[facility]/ZIP Code Phon e Number [facility] LABORATORY [address] [place] [address] SERVICES (ABNORMAL) COMPLETE BLOOD COUNT AND DIFFERENTIAL (04/28/2021 7:03 EST) WBC 9.14 4.00 - 12.40 [facility] LABORATORY SERVICES RBC 3.41 (L) 3.86 - 5.04 [facility] LABORATORY SERVICES Hemoglobin 9.6 (L) 11.6 - 15.2 [facility] gm/dL LABORATORY SERVICES HCT 30.0 (L) 34.9 - 44.4 % [facility] LABORATORY SERVICES MCV 88 81 - 98 fl [facility] LABORATORY SERVICES MCH 28.2 26.7 - 33.3 pg [facility] LABORATORY SERVICES MCHC 32.0 (L) 32.1 - 35.9 [facility] gm/dL LABORATORY SERVICES RDW-CV 13.2 <14.7 % [facility] LABORATORY SERVICES RDW-SD 42.4 <50.4 fl [facility] LABORATORY SERVICES PLT 292 141 - 377 K/[facility] LABORATORY SERVICES MPV 10.2 9.5 - 12.7 fl [facility] LABORATORY SERVICES Neutrophils 71.1 % [facility]ORY SERVICES Lymphocytes 13.2 % [facility] SERVICES Monocytes 9.4 % [facility]ORY SERVICES Eosinophils 3.1 % [facility] SERVICES Basophils 0.7 % [facility] LAB[facility]ORY SERVICES Immature Grans 2.5 % [facility] LABORATORY SERVICES Absolute Neutrophils 6.50 2.20 - 8.85 [facility] LABORATORY SERVICES Absolute Lymphocytes 1.21 1.09 - 3.30 [facility] LABORATORY SERVICES Absolute Monocytes 0.86 (H) 0.10 - 0.80 [facility] LABORATORY SERVICES Absolute Eosinophils 0.28 0.03 - 0.61 [facility] LABORATORY SERVICES Absolute Basophils 0.06 0.01 - 0.11 [facility] LABORATORY SERVICES Absolute Immature 0.23 (H) 0.00 - 0.06 [facility] LABORATORY SERVICES Type of Differential: Auto [facility] LABORATORY SERVICES Specimen Blood - Blood sample taken from central line (situation) Performing Organization Address City/State/ZIP Code Phon e Number [facility] LABORATORY [address] [place] [address] SERVICES EKG 12-LEAD (04/27/2021 13:19 EST) Specimen Narrative [facility] EKG - 04/28/2021 16:1 0 EST ? [facility] ? Test Date: ?2021-04-27 Pat Name: ? LINDSAY MARKEL ?Department: ?? Pacu ? Room: ? OR Gender: ? Female ? Entry Level Web Developer: ?? [id number] : ?1980 ? Requested By: SOBIA PATTON L Order Number: [id number] ? Reading MD: ?? DENIS LOBEL MD ? Measurements Intervals ?[place] ? Rate: ? 75 ? P: ?39 [place]: ? 150 ?QRS: ?9 QRSD: ? 89 ? T: ?26 QT: ? 387 ? QTc: ?435 ? Interpretive Statements SINUS RHYTHM POSSIBLE ANTERIOR MYOCARDIAL INFARCTION , PROBABLY OLD Automated Interpretation. ??Provider Int erpretation to follow. Compared to ECG 09/13/2018 23:49:54 Myocardial infarct finding now present I reviewed the tracing and have either a greed or edited the findings in this report. Electronically Signed On 16:10:15 EST by DENIS ROSARIO MD. Procedure Note Denis Rosario MD - 04/28/2021 [facility] Test Date: 2021-04-27 Pat Name: LINDSAY JEAN BAPTISTE Department: Pacu Room: OR Gender: Female Entry Level Web Developer: [id number] : 1980 Requested By: SOBIA William Order Number: [id number] Reading MD: Ktaiuska ROSARIO MD Measurements Intervals [place] Rate: 75 P: 39 [place]: 150 QRS: 9 QRSD: 89 T: 26 QT: 387 QTc: 435 Interpretive Statements SINUS RHYTHM POSSIBLE ANTERIOR MYOCARDIAL INFARCTION , PROBABLY OLD Automated Interpretation. Provider Inter pretation to follow. Compared to ECG 09/13/2018 23:49:54 Myocardial infarct finding now present I reviewed the tracing and have either a greed or edited the findings in this report. Electronically Signed On 16:10:15 EST by DENIS ROSARIO MD. Performing Organization Address City/[facility] Code Phon e Number [facility] EKG (ABNORMAL) ANAEROBE CULTURE/SMEAR(INC. AEROBES), OTHER (04/27/2021 9:38 EST) Organism ID Rare Streptococcus [facility] dysgalactiae LABORATORY SERVICES (A)Comment: Penicillin and ampicillin are drugs of choice for treatment of beta hemolytic streptococcal infections. Smear No Neutrophils Seen [facility] LABORATORY SERVICES Smear No bacteria seen [facility] LABORATORY SERVICES Specimen Tissue - Soft tissue (navigational christina pt) Performing Organization Address [facility]/[place] [facility] [place] [facility] LABORATORY [address] [place] [address] SERVICES HEPATITIS A ANTIBODY IGM (04/27/2021 5:30 EST) Pathologist Sig nature Hepatitis A Antibody, Negative Negative [facility] IgM LABORATORY SERVICES Specimen Blood - Venous blood (substance) Narrative [facility] LABORATORY SERVICES - 04/27/2021 11:27 EST The results of this assay can be falsely lowered due to the consumption of Biotin. Performing Organization Address [facility] Phon e Number [facility] LABORATORY [address] [place] [address] SERVICES (ABNORMAL) BASIC METABOLIC PANEL (BMP) (04/27/2021 5:30 EST) Pathologist Sig nature Sodium 138 136 - 145 mmol/L [facility] LABORATORY SERVICES Potassium 4.3 3.5 - 5.0 mmol/L [facility] LABORATORY SERVICES Chloride 100 96 - 110 mmol/L [facility] LABORATORY SERVICES CO2 Total 29 22 - 32 mmol/L [facility] LABORATORY SERVICES Anion Gap 9 8 - 16 [facility] LABORATORY SERVICES Glucose 104 (H) 70 - 100 mg/dL [facility] LABORATORY SERVICES Calcium 8.7 8.5 - 10.5 mg/dL [facility] LABORATORY SERVICES BUN 17 10 - 26 mg/dL [facility] LABORATORY SERVICES Creatinine 0.63 0.52 - 1.04 mg/dL [facility] LABORATORY SERVICES eGFR 114 >60 mL/min/1.73m2 [facility] LABORATORY SERVICES Specimen Blood - Venous blood (substance) Performing Organization Address [facility] Phon e Number [facility] LABORATORY [address] [place] [address] SERVICES (ABNORMAL) COMPLETE BLOOD COUNT AND DIFFERENTIAL (04/27/2021 5:30 EST) WBC 6.29 4.00 - 12.40 [facility] K/[facility] LABORATORY SERVICES RBC 3.43 (L) 3.86 - 5.04 [facility] M/[facility] LABORATORY SERVICES Hemoglobin 9.5 (L) 11.6 - 15.2 [facility] gm/dL LABORATORY SERVICES HCT 30.3 (L) 34.9 - 44.4 % [facility] LABORATORY SERVICES MCV 88 81 - 98 fl [facility] LABORATORY SERVICES MCH 27.7 26.7 - 33.3 pg [facility] LABORATORY SERVICES MCHC 31.4 (L) 32.1 - 35.9 [facility] gm/dL LABORATORY SERVICES RDW-CV 13.2 <14.7 % [facility] LABORATORY SERVICES RDW-SD 42.5 <50.4 fl [facility] LABORATORY SERVICES PLT 257 141 - 377 K/[facility] LABORATORY SERVICES MPV 10.2 9.5 - 12.7 fl [facility] LABORATORY SERVICES Neutrophils 64.4 % [facility] LABORATORY SERVICES Lymphocytes 18.3 % [facility] LABORATORY SERVICES Monocytes 8.7 % [facility] LABORATORY SERVICES Eosinophils 3.3 % [facility] LABORATORY SERVICES Basophils 0.8 % [facility] LABORATORY SERVICES Immature Grans 4.5 % [facility] LABORATORY SERVICES Absolute Neutrophils 4.05 2.20 - 8.85 [facility] LABORATORY SERVICES Absolute Lymphocytes 1.15 1.09 - 3.30 [facility] LABORATORY SERVICES Absolute Monocytes 0.55 0.10 - 0.80 [facility] LABORATORY SERVICES Absolute Eosinophils 0.21 0.03 - 0.61 [facility] LABORATORY SERVICES Absolute Basophils 0.05 0.01 - 0.11 [facility] LABORATORY SERVICES Absolute Immature 0.28 (H) 0.00 - 0.06 [facility] LABORATORY SERVICES Type of Differential: Auto [facility] LABORATORY SERVICES Specimen Blood - Venous blood (substance) Performing Organization Address [facility]/ZIP Code Phon e Number [facility] LABORATORY [address] [place] [address] SERVICES HEPATITIS B CORE ANTIBODY (TOTAL) (04/27/2021 5:30 EST) Pathologist Sig nature Hepatitis B Core Ab, Negative Negative [facility] Total LABORATORY SERVICES Specimen Blood - Venous blood (substance) Performing Organization Address City/[facility]/ZIP Code Phon e Number [facility] LABORATORY [address] [place] [address] SERVICES HEPATITIS B SURFACE ANTIGEN (04/27/2021 5:30 EST) Pathologist Sig nature Hep B Surface Ag Negative Negative [facility] LABORATORY SERVICES Specimen Blood - Venous blood (substance) Performing Organization Address City/[facility] Phon e Number [facility] LABORATORY [address] [place] [address] SERVICES HEPATITIS B SURFACE ANTIBODY (04/27/2021 5:30 EST) Hep B Surface Ab, >1000.0 See Note [facility] Quantitative Comment: mIU/mL [facility] Reference Range for Hep B Surface Ab, Quant: SERVICES Positive: >= 10.0 mIU/mL Negative: ??< 10.0 mIU/mL Patient is presumed to be immune to infection with Hep atitis B Virus. Hep B Surface Ab, Positive See Note [facility] Qualitative Comment: [facility]ORY Reference Range for Hep B Surface Ab, Qual: SERVICES Unvaccinated: ??Negative Vaccinated: ??Positive Specimen Blood - Venous blood (substance) Performing Organization Address [facility] Phon e Number [facility] LABORATORY [address] [place] [address] SERVICES (ABNORMAL) HEPATITIS A TOTAL ANTIBODY W REFLEX (04/27/2021 5:30 EST) Pathologist Sig nature Hepatitis A Positive (A) Negative [facility] Antibody, Total LABORATORY SERVICES Specimen Blood - Venous blood (substance) Narrative [facility] LABORATORY SERVICES - 04/27/2021 10:24 EST The result of this assay can be falsely elevated (Positive) due to the consumption of Biotin. Performing Organization Address [facility] Phon e Number [facility] LABORATORY [address] [place] [address] SERVICES HIV 1/2 ANTIGEN AND ANTIBODY, 4TH GENERATION (04/27/2021 5:30 EST) HIV 1 and 2 NegativeComment: If Negative [facility] Antibody/p24 acute HIV-1 LABORATORY Antigen, 4th infection is SERVICES Generation suspected in a high risk patient, submit plasma specimen for HIV-1 RNA quantitation test. Specimen Blood - Venous blood (substance) Narrative [facility] LABORATORY SERVICES - 04/27/2021 9:46 EST Fourth Generation assay performed on the Siemens Centaur XPT. Performing Organization Address City/[facility]/[place] [facility] [place] [facility] LABORATORY [address] [place] [address] SERVICES COVID-19 TEST [facility] PCR (04/26/2021 11:20 EST) Specimen Swab - Entire nasopharynx (body structur e) Performing Organization Address City/[facility]/ZIP Code Phon e Number [facility] LABORATORY [address] [place] [address] SERVICES COVID-19 TESTING (04/26/2021 11:20 EST) COVID-19 rt-PCR Negative Negative [facility] Result Comment: [facility] This test has not been FDA c leared or approved. This test has been authorized by FDA under an EUA for use by authorized laboratories. This test has been authorized only for detection of nucleic acid fro SERVICES m 2019-nCoV, not for any oth er viruses or pathogens. This test is only authorized for the duration of the declaration that circumstances exist justifying the authorization of emergency use of in vitro d iagnostic tests for detectio n and/or diagnosis of 2019-nCoV under section 564(b)(1) of Act, 21 U.S.C ?? 360bbb-3(b) (1), unless the authorization is terminated or revoked sooner. Negative results do not prec lude 2019-nCoV infection and should not be used as the sole basis for treatment or other patient management decisions. Negative results must be combined with clinical observa tions, patient history, and epidemiological informatio n. Performed on the BuddyTVher Fusion instrument Performing Lab [place] [facility] Lab [facility] LABORATORY SERVICES Specimen Swab - Entire nasopharynx (body structur e) Performing Organization Address City/State/ZIP Code Phon e Number [facility] LABORATORY [address] [place] [address] SERVICES (ABNORMAL) BASIC METABOLIC PANEL (BMP) (04/26/2021 6:19 EST) Pathologist Sig nature Sodium 139 136 - 145 mmol/L [facility] LABORATORY SERVICES Potassium 4.0 3.5 - 5.0 mmol/L [facility] LABORATORY SERVICES Chloride 102 96 - 110 mmol/L [facility] LABORATORY SERVICES CO2 Total 32 22 - 32 mmol/L [facility] LABORATORY SERVICES Anion Gap 5 (L) 8 - 16 [facility] LABORATORY SERVICES Glucose 107 (H) 70 - 100 mg/dL [facility] LABORATORY SERVICES Calcium 8.6 8.5 - 10.5 mg/dL [facility] LABORATORY SERVICES BUN 16 10 - 26 mg/dL [facility] LABORATORY SERVICES Creatinine 0.67 0.52 - 1.04 mg/dL [facility] LABORATORY SERVICES eGFR 112 >60 mL/min/1.73m2 [facility] LABORATORY SERVICES Specimen Blood - Venous blood (substance) Performing Organization Address City/State/ZIP Code Phon e Number [facility] LABORATORY [address] [place] [address] SERVICES (ABNORMAL) COMPLETE BLOOD COUNT AND DIFFERENTIAL (04/26/2021 6:18 EST) WBC 7.22 4.00 - 12.40 [facility] LABORATORY SERVICES RBC 3.34 (L) 3.86 - 5.04 [facility] LABORATORY SERVICES Hemoglobin 9.4 (L) 11.6 - 15.2 [facility] gm/dL LABORATORY SERVICES HCT 28.9 (L) 34.9 - 44.4 % [facility] LABORATORY SERVICES MCV 87 81 - 98 fl [facility] LABORATORY SERVICES MCH 28.1 26.7 - 33.3 pg [facility] LABORATORY SERVICES MCHC 32.5 32.1 - 35.9 [facility] gm/dL LABORATORY SERVICES RDW-CV 13.1 <14.7 % [facility] LABORATORY SERVICES RDW-SD 41.1 <50.4 fl [facility] LABORATORY SERVICES PLT 233 141 - 377 K/[facility] LABORATORY SERVICES MPV 10.8 9.5 - 12.7 fl [facility] LABORATORY SERVICES Neutrophils 71.4 % [facility] LABORATORY SERVICES Lymphocytes 13.4 % [facility] LABORATORY SERVICES Monocytes 9.4 % [facility] LABORATORY SERVICES Eosinophils 3.3 % [facility] LABORATORY SERVICES Basophils 0.4 % [facility] LABORATORY SERVICES Immature Grans 2.1 % [facility] LABORATORY SERVICES Absolute Neutrophils 5.15 2.20 - 8.85 [facility] LABORATORY SERVICES Absolute Lymphocytes 0.97 (L) 1.09 - 3.30 [facility] LABORATORY SERVICES Absolute Monocytes 0.68 0.10 - 0.80 [facility] LABORATORY SERVICES Absolute Eosinophils 0.24 0.03 - 0.61 [facility] LABORATORY SERVICES Absolute Basophils 0.03 0.01 - 0.11 [facility] LABORATORY SERVICES Absolute Immature 0.15 (H) 0.00 - 0.06 [facility] LABORATORY SERVICES Type of Differential: Auto [facility] LABORATORY SERVICES Specimen Blood - Venous blood (substance) Performing Organization Address City/State/ZIP Code Phon e Number [facility] LABORATORY [address] [place] [address] SERVICES (ABNORMAL) COMPLETE BLOOD COUNT AND DIFFERENTIAL (04/25/2021 6:16 EST) WBC 8.07 4.00 - 12.40 [facility] LABORATORY SERVICES RBC 3.24 (L) 3.86 - 5.04 [facility] LABORATORY SERVICES Hemoglobin 9.3 (L) 11.6 - 15.2 [facility] gm/dL LABORATORY SERVICES HCT 28.6 (L) 34.9 - 44.4 % [facility] LABORATORY SERVICES MCV 88 81 - 98 fl [facility] LABORATORY SERVICES MCH 28.7 26.7 - 33.3 pg [facility] LABORATORY SERVICES MCHC 32.5 32.1 - 35.9 [facility] gm/dL LABORATORY SERVICES RDW-CV 13.1 <14.7 % [facility] LABORATORY SERVICES RDW-SD 42.5 <50.4 fl [facility] LABORATORY SERVICES PLT 201 141 - 377 /[facility] LABORATORY SERVICES MPV 10.5 9.5 - 12.7 fl [facility] LABORATORY SERVICES Neutrophils 73.8 % [facility] LABORATORY SERVICES Lymphocytes 13.3 % [facility] LABORATORY SERVICES Monocytes 9.0 % [facility] LABORATORY SERVICES Eosinophils 2.4 % [facility] LABORATORY SERVICES Basophils 0.4 % [facility] LABORATORY SERVICES Immature Grans 1.1 % [facility] LABORATORY SERVICES Absolute Neutrophils 5.96 2.20 - 8.85 [facility] LABORATORY SERVICES Absolute Lymphocytes 1.07 (L) 1.09 - 3.30 [facility] LABORATORY SERVICES Absolute Monocytes 0.73 0.10 - 0.80 [facility] LABORATORY SERVICES Absolute Eosinophils 0.19 0.03 - 0.61 [facility] LABORATORY SERVICES Absolute Basophils 0.03 0.01 - 0.11 [facility] LABORATORY SERVICES Absolute Immature 0.09 (H) 0.00 - 0.06 [facility] Gr[facility] LABORATORY SERVICES Type of Differential: Auto [facility] LABORATORY SERVICES Specimen Blood - Blood sample taken from central line (situation) Performing Organization Address City/[facility] Phon e Number [facility] LABORATORY [address] [place] [address] SERVICES (ABNORMAL) BASIC METABOLIC PANEL (BMP) (04/25/2021 6:15 EST) Pathologist Sig nature Sodium 139 136 - 145 mmol/L [facility] LABORATORY SERVICES Potassium 3.9 3.5 - 5.0 mmol/L [facility] LABORATORY SERVICES Chloride 103 96 - 110 mmol/L [facility] LABORATORY SERVICES CO2 Total 30 22 - 32 mmol/L [facility] LABORATORY SERVICES Anion Gap 6 (L) 8 - 16 [facility] LABORATORY SERVICES Glucose 103 (H) 70 - 100 mg/dL [facility] LABORATORY SERVICES Calcium 8.0 (L) 8.5 - 10.5 mg/dL [facility] LABORATORY SERVICES BUN 12 10 - 26 mg/dL [facility] LABORATORY SERVICES Creatinine 0.52 0.52 - 1.04 mg/dL [facility] LABORATORY SERVICES eGFR 122 >60 mL/min/1.73m2 [facility] LABORATORY SERVICES Specimen Blood - Venous blood (substance) Performing Organization Address [facility] Phon e Number [facility] LABORATORY [address] [place] [address] SERVICES (ABNORMAL) COMPLETE BLOOD COUNT AND DIFFERENTIAL (04/24/2021 6:14 EST) WBC 12.01 4.00 - 12.40 [facility] LABORATORY SERVICES RBC 3.30 (L) 3.86 - 5.04 [facility] M/[facility] LABORATORY SERVICES Hemoglobin 9.3 (L) 11.6 - 15.2 [facility] gm/dL LABORATORY SERVICES HCT 28.7 (L) 34.9 - 44.4 % [facility] LABORATORY SERVICES MCV 87 81 - 98 fl [facility] LABORATORY SERVICES MCH 28.2 26.7 - 33.3 pg [facility] LABORATORY SERVICES MCHC 32.4 32.1 - 35.9 [facility] gm/dL LABORATORY SERVICES RDW-CV 13.1 <14.7 % [facility] LABORATORY SERVICES RDW-SD 41.6 <50.4 fl [facility] LABORATORY SERVICES PLT 191 141 - 377 K/[facility] LABORATORY SERVICES MPV 10.9 9.5 - 12.7 fl [facility] LABORATORY SERVICES Neutrophils 83.5 % [facility] LABORATORY SERVICES Lymphocytes 7.7 % [facility] LABORATORY SERVICES Monocytes 6.7 % [facility] LABORATORY SERVICES Eosinophils 1.1 % [facility] LABORATORY SERVICES Basophils 0.2 % [facility] LABORATORY SERVICES Immature Grans 0.8 % [facility] LABORATORY SERVICES Absolute Neutrophils 10.02 (H) 2.20 - 8.85 [facility] LABORATORY SERVICES Absolute Lymphocytes 0.93 (L) 1.09 - 3.30 [facility] LABORATORY SERVICES Absolute Monocytes 0.80 0.10 - 0.80 [facility] LABORATORY SERVICES Absolute Eosinophils 0.13 0.03 - 0.61 [facility] LABORATORY SERVICES Absolute Basophils 0.03 0.01 - 0.11 [facility] LABORATORY SERVICES Absolute Immature 0.10 (H) 0.00 - 0.06 [facility] LABORATORY SERVICES Type of Differential: Auto [facility] LABORATORY SERVICES Specimen Blood - Blood sample taken from central line (situation) Performing Organization Address City/[facility]/ZIP Code Phon e Number [facility] LABORATORY [address] [place] [address] SERVICES (ABNORMAL) BASIC METABOLIC PANEL (BMP) (04/24/2021 6:13 EST) Pathologist Sig nature Sodium 138 136 - 145 mmol/L [facility] LABORATORY SERVICES Potassium 3.3 (L) 3.5 - 5.0 mmol/L [facility] LABORATORY SERVICES Chloride 104 96 - 110 mmol/L [facility] LABORATORY SERVICES CO2 Total 28 22 - 32 mmol/L [facility] LABORATORY SERVICES Anion Gap 6 (L) 8 - 16 [facility] LABORATORY SERVICES Glucose 142 (H) 70 - 100 mg/dL [facility] LABORATORY SERVICES Calcium 8.0 (L) 8.5 - 10.5 mg/dL [facility] LABORATORY SERVICES BUN 8 (L) 10 - 26 mg/dL [facility] LABORATORY SERVICES Creatinine 0.55 0.52 - 1.04 mg/dL [facility] LABORATORY SERVICES eGFR 119 >60 mL/min/1.73m2 [facility] LABORATORY SERVICES Specimen Blood - Venous blood (substance) Performing Organization Address City/State/[place] [facility] [place] [facility] LABORATORY [address] [place] [address] SERVICES (ABNORMAL) VANCOMYCIN TROUGH (04/24/2021 0:27 EST) Vancomycin Trough 4.8 (L) 10.0 - 20.0 [facility] ??g/mL LABORATORY SERVICES Draw Type Central Line [facility] Draw LABORATORY SERVICES Specimen Blood - Venous blood (substance) Performing Organization Address [facility] Phon e Number [facility] LABORATORY [address] [place] [address] SERVICES (ABNORMAL) ANAEROBE CULTURE/SMEAR(INC. AEROBES), OTHER (04/23/2021 19:53 EST) Organism ID Few Streptococcus [facility] dysgalactiae LABORATORY SERVICES (A)Comment: Penicillin and ampicillin are drugs of choice for treatment of beta hemolytic streptococcal infections. Smear Many Neutrophils [facility] Present (A) LABORATORY SERVICES Smear Few Gram Positive Cocci [facility] R (A) LABORATORY SERVICES Specimen Fluid - Soft tissue (navigational concep t) Performing Organization Address [facility] Phon e Number [facility] LABORATORY [address] [place] [address] SERVICES TEST, URINE (04/23/2021 18:31 EST) Test, NegativeComment: Negative [facility] Urine False negative LABORATORY results may occur in SERVICES women who are beyond 5-8 weeks gestation. Diagnosis of should be based on a correlation of test results with typical clinical signs and symptoms. Specimen Urine - Urine (substance) Performing Organization Address [facility] Phon e Number [facility] LABORATORY [address] [place] [address] SERVICES (ABNORMAL) COMPREHENSIVE METABOLIC PANEL (CMP) (04/23/2021 9:20 EST) Pathologist Sig nature Sodium 136 136 - 145 [facility] mmol/L LABORATORY SERVICES Potassium 3.0 (L) 3.5 - 5.0 [facility] mmol/L LABORATORY SERVICES Chloride 100 96 - 110 mmol/L [facility] LABORATORY SERVICES CO2 Total 25 22 - 32 mmol/L [facility] LABORATORY SERVICES Glucose 103 (H) 70 - 100 mg/dL [facility] LABORATORY SERVICES BUN 8 (L) 10 - 26 mg/dL [facility] LABORATORY SERVICES Creatinine 0.69 0.52 - 1.04 [facility] mg/dL LABORATORY SERVICES eGFR 111 >60 [facility] mL/min/1.73m2 LABORATORY SERVICES Total Protein 6.3 6.3 - 8.2 g/dL [facility] LABORATORY SERVICES Albumin 3.2 (L) 3.4 - 4.9 g/dL [facility] LABORATORY SERVICES Alkaline Phosphatase 114 38 - 126 U/L [facility] LABORATORY SERVICES AST 24 15 - 46 U/L [facility] LABORATORY SERVICES ALT 27 <35 U/L [facility] LABORATORY SERVICES Bilirubin, Total <0.5 <1.4 mg/dL [facility] LABORATORY SERVICES Calcium 8.4 (L) 8.5 - 10.5 [facility] mg/dL LABORATORY SERVICES Albumin/Globulin 1.0 1.0 - 2.5 [facility] Ratio LABORATORY SERVICES Anion Gap 11 8 - 16 [facility] LABORATORY SERVICES Specimen Blood - Venous blood (substance) Performing Organization Address City/State/ZIP Code Phon e Number [facility] LABORATORY [address] [place] [address] SERVICES MAGNESIUM (04/23/2021 6:50 EST) Pathologist Sig nature Magnesium 1.8 1.7 - 2.8 mg/dL [facility] LABORA TORY SERVICES Specimen Blood - Venous blood (substance) Performing Organization Address City/State/ZIP Code Phon e Number [facility] LABORATORY [address] [place] [address] SERVICES (ABNORMAL) BASIC METABOLIC PANEL (BMP) (04/23/2021 6:50 EST) Pathologist Sig nature Sodium 136 136 - 145 mmol/L [facility] LABORATORY SERVICES Potassium 2.9 (LL) 3.5 - 5.0 mmol/L [facility] LABORATORY SERVICES Chloride 102 96 - 110 mmol/L [facility] LABORATORY SERVICES CO2 Total 27 22 - 32 mmol/L [facility] LABORATORY SERVICES Anion Gap 7 (L) 8 - 16 [facility] LABORATORY SERVICES Glucose 119 (H) 70 - 100 mg/dL [facility] LABORATORY SERVICES Calcium 8.7 8.5 - 10.5 mg/dL [facility] LABORATORY SERVICES BUN 7 (L) 10 - 26 mg/dL [facility] LABORATORY SERVICES Creatinine 0.67 0.52 - 1.04 mg/dL [facility] LABORATORY SERVICES eGFR 112 >60 mL/min/1.73m2 [facility] LABORATORY SERVICES Specimen Blood - Venous blood (substance) Performing Organization Address City/State/ZIP Code Phon e Number [facility] LABORATORY [address] [place] [address] SERVICES (ABNORMAL) COMPLETE BLOOD COUNT AND DIFFERENTIAL (04/23/2021 6:50 EST) WBC 16.72 (H) 4.00 - 12.40 [facility] LABORATORY SERVICES RBC 3.43 (L) 3.86 - 5.04 [facility] LABORATORY SERVICES Hemoglobin 9.9 (L) 11.6 - 15.2 [facility] gm/dL LABORATORY SERVICES HCT 30.1 (L) 34.9 - 44.4 % [facility] LABORATORY SERVICES MCV 88 81 - 98 fl [facility] LABORATORY SERVICES MCH 28.9 26.7 - 33.3 pg [facility] LABORATORY SERVICES MCHC 32.9 32.1 - 35.9 [facility] gm/dL LABORATORY SERVICES RDW-CV 13.2 <14.7 % [facility] LABORATORY SERVICES RDW-SD 42.3 <50.4 fl [facility] LABORATORY SERVICES PLT 171 141 - 377 K/[facility] LABORATORY SERVICES MPV 11.6 9.5 - 12.7 fl [facility] LABORATORY SERVICES Neutrophils 86.3 % [facility] LABORATORY SERVICES Lymphocytes 5.1 % [facility] LABORATORY SERVICES Monocytes 6.5 % [facility] LABORATORY SERVICES Eosinophils 0.5 % [facility] LABORATORY SERVICES Basophils 0.2 % [facility] LABORATORY SERVICES Immature Grans 1.4 % [facility] LABORATORY SERVICES Absolute Neutrophils 14.42 (H) 2.20 - 8.85 [facility] LABORATORY SERVICES Absolute Lymphocytes 0.86 (L) 1.09 - 3.30 [facility] LABORATORY SERVICES Absolute Monocytes 1.09 (H) 0.10 - 0.80 [facility] LABORATORY SERVICES Absolute Eosinophils 0.09 0.03 - 0.61 [facility] LABORATORY SERVICES Absolute Basophils 0.03 0.01 - 0.11 [facility] LABORATORY SERVICES Absolute Immature 0.23 (H) 0.00 - 0.06 [facility] LABORATORY SERVICES Type of Differential: Auto [facility] LABORATORY SERVICES Specimen Blood - Blood sample taken from central line (situation) Performing Organization Address [facility] Phon e Number [facility] LABORATORY [address] [place] [address] SERVICES COVID-19 TEST [facility] PCR (04/23/2021 2:53 EST) Specimen Swab - Entire nasopharynx (body structur e) Performing Organization Address [facility] Phon e Number [facility] LABORATORY [address] [place] [address] SERVICES COVID-19 TESTING (04/23/2021 2:53 EST) COVID-19 rt-PCR Negative Negative [facility] Comment: [facility] This test has not been FDA c leared or approved. This test has been authorized by FDA under an EUA for use by authorized laboratories. This test has been authorized only for detection of nucleic acid fro SERVICES m 2019-nCoV, not for any oth er viruses or pathogens. This test is only authorized for the duration of the declaration that circumstances exist justifying the authorization of emergency use of in vitro d iagnostic tests for detectio n and/or diagnosis of 2019-nCoV under section 564(b)(1) of Act, 21 U.S.C ?? 360bbb-3(b) (1), unless the authorization is terminated or revoked sooner. Negative results do not prec lude 2019-nCoV infection and should not be used as the sole basis for treatment or other patient management decisions. Negative results must be combined with clinical observa tions, patient history, and epidemiological informatio n. Performed on the [employer] GeneXpert Instrument Performing Lab GeneXpert [facility] LABORATORY SERVICES Specimen Swab - Entire nasopharynx (body structur e) Performing Organization Address [facility] Phon e Number [facility] LABORATORY [address] [place] [address] SERVICES CK (04/23/2021 1:57 EST) Pathologist Sig nature CK 102 30 - 135 U/L [facility] LABORATOR Y SERVICES Specimen Blood - Venous blood (substance) Performing Organization Address City/State/ZIP Code Phon e Number [facility] LABORATORY [address] [place] [address] SERVICES XR WRIST RIGHT 3 OR MORE VIEWS (04/22/2021 18:58 EST) Anatomical Region Laterality Modality Upper Extremities Right Computed Radiography Specimen Impressions [facility] RADIOLOGY [facility] - 04/22/2021 19:38 EST Diffuse soft tissue swelling of the distal right forearm, wrist, and hand. I have personally reviewed the images an d the above interpretation and agree with the findings. Narrative [facility] RADIOLOGY [facility] - 04/22/2021 19:38 EST XR FOREARM RIGHT 2 VIEWS, XR HAND RIGHT 3 OR MORE VIEWS, XR WRIST RIGHT 3 OR MORE VIEWS 04/22/2021 6:15 PM Clinical History/Comments: wrist pain Comparison: None. Technique: 2 views of the right forearm. 3 views of the right hand. 3 views of the right wrist. ?? Findings: Right forearm: No fracture or dislocatio n, anatomic alignment. No visible effusion of the right elbow. There is soft tissue swelling of the right distal forearm and wrist. No radiopaque foreign body. Right hand: No fracture or dislocation, anatomic alignment. Mild degenerative changes of the right hand. There is diffuse soft tissue swelling of the right distal forearm and wrist. No radiopaque foreign body. No visible fracture or dislocation. Mil d degenerative changes of the right wrist. Diffuse soft tissue swelling of the distal right forearm and wrist. No radiopaque foreign body. Procedure Note Yris Vasquez MD - 1 XR FOREARM RIGHT 2 VIEWS, XR HAND RIGHT 3 OR MORE VIEWS, XR WRIST RIGHT 3 OR MORE VIEWS 04/22/2021 6:15 PM Clinical History/Comments: wrist pain Comparison: None. Technique: 2 views of the right forearm. 3 views of the right hand. 3 views of the right wrist. Findings: Right forearm: No fracture or dislocatio n, anatomic alignment. No visible effusion of the right elbow. There is soft tissue swelling of the right distal forearm and wrist. No radiopaque foreign body. Right hand: No fracture or dislocation, anatomic alignment. Mild degenerative changes of the right hand. There is diffuse soft tissue swelling of the right distal forearm and wrist. No radiopaque foreign body. No visible fracture or dislocation. Mil d degenerative changes of the right wrist. Diffuse soft tissue swelling of the distal right forearm and wrist. No radiopaque foreign body. IMPRESSION Diffuse soft tissue swelling of the dist al right forearm, wrist, and hand. I have personally reviewed the images an d the above interpretation and agree with the findings. Performing Organization Address City/State/ZIP Code Phon e Number [facility] RADIOLOGY [facility] [place] XR FOOT LEFT 3 OR MORE VIEWS (04/22/2021 18:57 EST) Anatomical Region Laterality Modality Lower Extremities Left Computed Radiography Specimen Impressions [facility] - 04/22/2021 19:51 EST 1. Questionable cortical irregularity an d focal osteopenia along the base of the first proximal phalanx. This could reflect osteomyelitis in the appropriate clinical setting. A dedicated MRI with contrast could be obtained for further evaluation. 2. Soft tissue edema overlying the dorsa l forefoot. I have personally reviewed the images an d the above interpretation and agree with the findings. Narrative [facility] RADIOLOGY [facility] [place] - 04/22/2021 19:51 EST XR FOOT LEFT 3 OR MORE VIEWS ??04/22/2021 6:20 PM Signs And Symptoms/Comments: ?? wound on foot,asses for osteo Comparison: ?? None Technique: AP, oblique, and lateral views of the le ft foot. Findings: No acute fracture or suspicious osseous lesion is identified. There is dorsal soft tissue edema overlying the forefoot . There is questionable cortical irregularity and focal osteopenia along the medial and lateral aspects of the first proxim al phalanx base. An os peroneum is incidentally noted. Procedure Note Yris Vasquez MD - 1 XR FOOT LEFT 3 OR MORE VIEWS 04/22/2021 6:20 PM Signs And Symptoms/Comments: wound on foot,asses for osteo Comparison: None Technique: AP, oblique, and lateral views of the le ft foot. Findings: No acute fracture or suspicious osseous lesion is identified. There is dorsal soft tissue edema overlying the forefoot . There is questionable cortical irregularity and focal osteopenia along the medial and lateral aspects of the first proximal phalanx ba se. An os peroneum is incidentally noted. IMPRESSION 1. Questionable cortical irregularity an d focal osteopenia along the base of the first proximal phalanx. This could reflect osteomyelitis in the appropriate clinical setting. A dedicated MRI with contrast could be obtained for further evaluation. 2. Soft tissue edema overlying the dorsa l forefoot. I have personally reviewed the images an d the above interpretation and agree with the findings. Performing Organization Address City/State/ZIP Code Phon e Number [facility] RADIOLOGY [facility] XR FOREARM RIGHT 2 VIEWS (04/22/2021 18:56 EST) Anatomical Region Laterality Modality Upper Extremities Right Computed Radiography Specimen Impressions [facility] - 04/22/2021 19:38 EST Diffuse soft tissue swelling of the distal right forearm, wrist, and hand. I have personally reviewed the images an d the above interpretation and agree with the findings. Narrative [facility] - 04/22/2021 19:38 EST XR FOREARM RIGHT 2 VIEWS, XR HAND RIGHT 3 OR MORE VIEWS, XR WRIST RIGHT 3 OR MORE VIEWS 04/22/2021 6:15 PM Clinical History/Comments: wrist pain Comparison: None. Technique: 2 views of the right forearm. 3 views of the right hand. 3 views of the right wrist. ?? Findings: Right forearm: No fracture or dislocatio n, anatomic alignment. No visible effusion of the right elbow. There is soft tissue swelling of the right distal forearm and wrist. No radiopaque foreign body. Right hand: No fracture or dislocation, anatomic alignment. Mild degenerative changes of the right hand. There is diffuse soft tissue swelling of the right distal forearm and wrist. No radiopaque foreign body. No visible fracture or dislocation. Mil d degenerative changes of the right wrist. Diffuse soft tissue swelling of the distal right forearm and wrist. No radiopaque foreign body. Procedure Note Yris Vasquez MD - 1 XR FOREARM RIGHT 2 VIEWS, XR HAND RIGHT 3 OR MORE VIEWS, XR WRIST RIGHT 3 OR MORE VIEWS 04/22/2021 6:15 PM Clinical History/Comments: wrist pain Comparison: None. Technique: 2 views of the right forearm. 3 views of the right hand. 3 views of the right wrist. Findings: Right forearm: No fracture or dislocatio n, anatomic alignment. No visible effusion of the right elbow. There is soft tissue swelling of the right distal forearm and wrist. No radiopaque foreign body. Right hand: No fracture or dislocation, anatomic alignment. Mild degenerative changes of the right hand. There is diffuse soft tissue swelling of the right distal forearm and wrist. No radiopaque foreign body. No visible fracture or dislocation. Mil d degenerative changes of the right wrist. Diffuse soft tissue swelling of the distal right forearm and wrist. No radiopaque foreign body. IMPRESSION Diffuse soft tissue swelling of the dist al right forearm, wrist, and hand. I have personally reviewed the images an d the above interpretation and agree with the findings. Performing Organization Address City/State/ZIP Code Phon e Number [facility] RADIOLOGY [facility] XR HAND RIGHT 3 OR MORE VIEWS (04/22/2021 18:55 EST) Anatomical Region Laterality Modality Upper Extremities Right Computed Radiography Specimen Impressions [facility] - 04/22/2021 19:38 EST Diffuse soft tissue swelling of the distal right forearm, wrist, and hand. I have personally reviewed the images an d the above interpretation and agree with the findings. Narrative [facility] - 04/22/2021 19:38 EST XR FOREARM RIGHT 2 VIEWS, XR HAND RIGHT 3 OR MORE VIEWS, XR WRIST RIGHT 3 OR MORE VIEWS 04/22/2021 6:15 PM Clinical History/Comments: wrist pain Comparison: None. Technique: 2 views of the right forearm. 3 views of the right hand. 3 views of the right wrist. ?? Findings: Right forearm: No fracture or dislocatio n, anatomic alignment. No visible effusion of the right elbow. There is soft tissue swelling of the right distal forearm and wrist. No radiopaque foreign body. Right hand: No fracture or dislocation, anatomic alignment. Mild degenerative changes of the right hand. There is diffuse soft tissue swelling of the right distal forearm and wrist. No radiopaque foreign body. No visible fracture or dislocation. Mil d degenerative changes of the right wrist. Diffuse soft tissue swelling of the distal right forearm and wrist. No radiopaque foreign body. Procedure Note Yris Vasquez MD - 1 XR FOREARM RIGHT 2 VIEWS, XR HAND RIGHT 3 OR MORE VIEWS, XR WRIST RIGHT 3 OR MORE VIEWS 04/22/2021 6:15 PM Clinical History/Comments: wrist pain Comparison: None. Technique: 2 views of the right forearm. 3 views of the right hand. 3 views of the right wrist. Findings: Right forearm: No fracture or dislocatio n, anatomic alignment. No visible effusion of the right elbow. There is soft tissue swelling of the right distal forearm and wrist. No radiopaque foreign body. Right hand: No fracture or dislocation, anatomic alignment. Mild degenerative changes of the right hand. There is diffuse soft tissue swelling of the right distal forearm and wrist. No radiopaque foreign body. No visible fracture or dislocation. Mil d degenerative changes of the right wrist. Diffuse soft tissue swelling of the distal right forearm and wrist. No radiopaque foreign body. IMPRESSION Diffuse soft tissue swelling of the dist al right forearm, wrist, and hand. I have personally reviewed the images an d the above interpretation and agree with the findings. Performing Organization Address City/State/ZIP Code Phon e Number [facility] RADIOLOGY [facility] LACTIC ACID (04/22/2021 16:39 EST) Pathologist Sig nature Lactic Acid 0.6 <=2.0 mmol/L [facility] LABORATOR Y SERVICES Specimen Blood - Venous blood (substance) Performing Organization Address City/State/ZIP Code Phon e Number [facility] LABORATORY [address] [place] [address] SERVICES (ABNORMAL) COMPLETE BLOOD COUNT AND DIFFERENTIAL (04/22/2021 16:39 EST) WBC 14.45 (H) 4.00 - 12.40 [facility] K/[facility] LABORATORY SERVICES RBC 3.56 (L) 3.86 - 5.04 [facility] M/[facility] LABORATORY SERVICES Hemoglobin 9.9 (L) 11.6 - 15.2 [facility] gm/dL LABORATORY SERVICES HCT 32.0 (L) 34.9 - 44.4 % [facility] LABORATORY SERVICES MCV 90 81 - 98 fl [facility] LABORATORY SERVICES MCH 27.8 26.7 - 33.3 pg [facility] LABORATORY SERVICES MCHC 30.9 (L) 32.1 - 35.9 [facility] gm/dL LABORATORY SERVICES RDW-CV 13.0 <14.7 % [facility] LABORATORY SERVICES RDW-SD 42.8 <50.4 fl [facility] LABORATORY SERVICES PLT 135 (L) 141 - 377 K/m [facility] LABORATORY SERVICES MPV 11.4 9.5 - 12.7 fl [facility] LABORATORY SERVICES Neutrophils 86.0 % [facility] LABORATORY SERVICES Lymphocytes 5.2 % [facility] LABORATORY SERVICES Monocytes 7.4 % [facility] LABORATORY SERVICES Eosinophils 0.5 % [facility] LABORATORY SERVICES Basophils 0.1 % [facility] LABORATORY SERVICES Immature Grans 0.8 % [facility] LABORATORY SERVICES Absolute Neutrophils 12.43 (H) 2.20 - 8.85 [facility] LABORATORY SERVICES Absolute Lymphocytes 0.75 (L) 1.09 - 3.30 [facility] LABORATORY SERVICES Absolute Monocytes 1.07 (H) 0.10 - 0.80 [facility] LABORATORY SERVICES Absolute Eosinophils 0.07 0.03 - 0.61 [facility] LABORATORY SERVICES Absolute Basophils 0.02 0.01 - 0.11 [facility] LABORATORY SERVICES Absolute Immature 0.11 (H) 0.00 - 0.06 [facility] [place] [facility] LABORATORY SERVICES Type of Differential: Auto [facility] LABORATORY SERVICES Specimen Blood - Venous blood (substance) Performing Organization Address City/[facility] Phon e Number [facility] LABORATORY [address] [place] [address] SERVICES (ABNORMAL) BASIC METABOLIC PANEL (BMP) (04/22/2021 16:39 EST) Pathologist Sig nature Sodium 141 136 - 145 mmol/L [facility] LABORATORY SERVICES Potassium 3.0 (L) 3.5 - 5.0 mmol/L [facility] LABORATORY SERVICES Chloride 105 96 - 110 mmol/L [facility] LABORATORY SERVICES CO2 Total 24 22 - 32 mmol/L [facility] LABORATORY SERVICES Anion Gap 12 8 - 16 [facility] LABORATORY SERVICES Glucose 89 70 - 100 mg/dL [facility] LABORATORY SERVICES Calcium 8.7 8.5 - 10.5 mg/dL [facility] LABORATORY SERVICES BUN 7 (L) 10 - 26 mg/dL [facility] LABORATORY SERVICES Creatinine 0.65 0.52 - 1.04 mg/dL [facility] LABORATORY SERVICES eGFR 113 >60 mL/min/1.73m2 [facility] LABORATORY SERVICES Specimen Blood - Venous blood (substance) Performing Organization Address [facility]/ZIP Code Phon e Number [facility] LABORATORY [address] [place] [id number] OUTSIDE IMAGES MSK (04/22/2021 13:22 EST) Specimen Narrative 04/22/2021 13:22 EST This is a non-reportable exam. documented in this encounter Visit Diagnoses Diagnosis Right arm cellulitis - Primary Cellulitis and abscess of upper arm and forearm Acute carpal tunnel syndrome, right History of Raynaud's syndrome Personal history of other diseases of ci rculatory system Open wound of left great toe, initial en counter Opioid use disorder Sepsis, due to unspecified organism, uns pecified whether acute organ dysfunction present ([facility]) ([facility]) Group C streptococcal infection Streptococcus infection in conditions cl assified elsewhere and of unspecified site, group C Abscess of arm, right Cellulitis and abscess of upper arm and forearm Skin ulcer of left great toe, unspecifie d ulcer stage ([facility]) ([facility]) Leukopenia, unspecified type Open wound of left great toe, sequela Opioid use disorder, mild, abuse ([facility]) ([facility]) 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 ([facility]) Retained metal fragment foreign body documented in this encounter Admitting Diagnoses Diagnosis Right arm cellulitis Cellulitis and abscess of upper arm and forearm Acute carpal tunnel syndrome, right documented in this encounter Administered Medications Inactive Administered Medications - up to 3 most recent administrations Medication Order MAR Action Action Date Dose Rate Site acetaminophen (TYLENOL) tablet Given 05/04/2021 9:10 EST 1,000 m g 1,000 mg 1,000 mg, oral, EVERY 12 HOURS, First dose (after last modification) on Sun05/02/21 at 2100, Until Discontinued, Routine Given 05/03/2021 20:03 EST 1,000 mg Given 05/03/2021 8:15 EST 1,000 mg acetaminophen (TYLENOL) tablet 500 mg Given 05/02/2021 5:57 EST 500 mg 500 mg, oral, EVERY 6 HOURS, First dose (after last modification) on 04/25/21 at 1200, Until Discontinued, Routine Given 05/02/2021 0:14 EST 500 mg Given 05/01/2021 17:42 EST 500 mg acetaminophen (TYLENOL) tablet 650 mg Given 04/23/2021 16:54 EST 650 mg 650 mg, oral, EVERY 6 HOURS PRN, Starting on 04/23/21 at 0727, Until 04/23/21 at 2210, Pain, Routine Given 04/23/2021 8:19 EST 650 mg acetaminophen (TYLENOL) tablet 650 mg Given 04/25/2021 6:04 EST 650 mg 650 mg, oral, EVERY 6 HOURS, First dose (after last modification) on 04/24/21 at 0000, Until Discontinued, Routine Given 04/24/2021 23:26 EST 650 mg Given 04/24/2021 20:11 EST 650 mg alteplase (CATHFLO ACTIVASE) injection 2 mg 2 mg, intercatheter, PRN, Starting on Elsa 04/28/21 at 2321, Until 05/04/21 at 1943, Line Care, Routine amoxicillin (AMOXIL) capsule 500 mg Given 05/04/2021 16:13 EST 500 mg 500 mg, oral, EVERY 8 HOURS, 21 doses, First dose on Sun05/04/21 at 1600, Last dose on Sun05/11/21 at 0800, Routine buprenorphine-naloxone (SUBOXONE) 2-0.5 mg Given 05/04/2021 9:10 EST 3 Film sublingual film 3 Film 3 Film, sublingual, DAILY, First dose on 04/23/21 at 0900, Until Discontinued, Routine Given 05/03/2021 8:15 EST 3 Film Given 05/02/2021 9:23 EST 3 Film cefTRIAXone (ROCEPHIN) 2,000 mg in sodium New Bag 04/22/2021 2 3:20 EST 2,000 mg chloride (NS MBP) 50 mL IVPB 2,000 mg, intravenous, Administer over 30 Minutes, EVERY 12 HOURS, 4 doses, First dose on Sun04/22/21 at 2330, Last dose on 04/24/21 at 0900, Type of Therapy: Empiric, Suspected Indication (Select all that apply): Osteomyelitis, ID Consult: No, STAT cefTRIAXone (ROCEPHIN) 2,000 mg in sodium Given 05/03/2021 22:42 EST 2,000 mg chloride (NS MBP) 50 mL IVPB 2,000 mg, intravenous, Administer over 30 Minutes, EVERY 24 HOURS, 17 doses, First dose (after last modification) on 04/23/21 at 2330, Last dose on Sun05/09/21 at 2330, Type of Therapy: Empiric, Suspected Indication (Select all that apply): Osteomyelitis, ID Consult: No, STAT Given 05/02/2021 23:21 EST 2,000 mg Given 05/01/2021 23:23 EST 2,000 mg collagenase (SANTYL) ointment Given 05/04/2021 15:18 EST topical, DAILY, First dose on 05/04/21 at 1330, Until Discontinued cyclobenzaprine (FLEXERIL) tablet 10 mg Given 04/23/2021 14:24 EST 10 mg 10 mg, oral, DAILY PRN, Starting on 04/23/21 at 1406, Until 04/23/21 at 2210, Muscle Spasms, Routine diphenhydrAMINE (BENADRYL) capsule 25 mg Given 04/30/2021 2:06 EST 25 mg 25 mg, oral, EVERY 6 HOURS PRN, Starting on 04/30/21 at 0150, Until 04/30/21 at 1149, Itching, Routine diphenhydrAMINE (BENADRYL) capsule 25 mg Given 04/30/2021 12:14 EST 25 mg 25 mg, oral, NOW X1, 1 dose, On 04/30/21 at 1215, Routine diphenhydrAMINE (BENADRYL) capsule 25 mg Given 05/04/2021 16:14 EST 25 mg 25 mg, oral, EVERY 6 HOURS PRN, Starting on 04/30/21 at 1800, Until Sun05/04/21 at 1943, Itching, Routine Given 05/04/2021 9:10 EST 25 mg Given 05/04/2021 0:22 EST 25 mg diphenhydrAMINE (BENADRYL) injection 12. 5 mg Given 04/23/2021 21:19 EST 12.5 mg 12.5 mg, intravenous, PRN, 1 dose, Starting on 04/23/21 at 1948, Until 04/23/21 at 2119, nausea, Routine, Recovery (only) diphenhydrAMINE (BENADRYL) injection 12. 5 mg Given 04/27/2021 12:24 EST 12.5 mg 12.5 mg, intravenous, PRN, 1 dose, Starting on 04/27/21 at 1044, Until Sun04/27/21 at 1224, nausea, Routine, Recovery (only) fentaNYL citrate (PF) injection 25-50 mc g Given 04/23/2021 21:15 EST 50 mcg 25-50 mcg, intravenous, EVERY 5 MIN PRN, Starting on 04/23/21 at 1948, Until 04/23/21 at 2201, Pain, Routine, Recovery (only) Given 04/23/2021 21:04 EST 50 mcg Given 04/23/2021 20:49 EST 50 mcg fentaNYL citrate (PF) injection 25-50 mc g Given 04/27/2021 11:01 EST 50 mcg 25-50 mcg, intravenous, EVERY 5 MIN PRN, Starting on Sun04/27/21 at 1044, Until Sun04/27/21 at 1448, Pain, Routine, Recovery (only) Given 04/27/2021 10:56 EST 50 mcg Given 04/27/2021 10:51 EST 50 mcg ferrous gluconate (FERGON) tablet 324 mg Given 05/04/2021 9:10 EST 324 mg 324 mg, oral, 2 TIMES DAILY WITH BREAKFAST & DINNER, First dose on Sun05/02/21 at 1730, Until Discontinued, Routine Given 05/03/2021 18:55 EST 324 mg Given 05/03/2021 8:15 EST 324 mg gabapentin (NEURONTIN) capsule 400 mg Given 04/27/2021 12:31 EST 400 mg 400 mg, oral, NOW X1, 1 dose, On Sun04/27/21 at 1230, STAT gabapentin (NEURONTIN) capsule 600 mg Given 05/04/2021 9:10 EST 600 mg 600 mg, oral, DAILY WITH BREAKFAST, First dose on Sun04/24/21 at 0800, Until Discontinued, Routine Given 05/03/2021 8:15 EST 600 mg Given 05/02/2021 9:23 EST 600 mg gabapentin (NEURONTIN) capsule 600 mg Given 04/23/2021 14:24 EST 600 mg 600 mg, oral, NOW X1, 1 dose, On 04/23/21 at 1430, Routine hydrocortisone-aloe vera 1 % cream Given 05/03/2021 23:56 EST topical, 4 TIMES DAILY PRN, Starting on Sun05/03/21 at 2322, Until Sun05/04/21 at 1943, Itching HYDROmorphone (DILAUDID) liquid 4-6 mg Given 04/27/2021 8:47 EST 6 mg 4-6 mg, oral, EVERY 3 HOURS PRN, Starting on 04/25/21 at 1103, Until Sun04/27/21 at 1120, Pain, 4 mg for pain 3-5/10. 6 mg for pain 6-10/10., Routine Given 04/27/2021 5:33 EST 6 mg Given 04/27/2021 2:14 EST 6 mg HYDROmorphone (DILAUDID) liquid 6 mg Given 04/27/2021 11:42 EST 6 mg 6 mg, oral, PACU ONCE, 1 dose, On Sun04/27/21 at 1100, Routine, Recovery (only) HYDROmorphone (DILAUDID) tablet 2 mg Given 05/04/2021 16:14 EST 2 mg 2 mg, oral, EVERY 4 HOURS PRN, Starting on Sun05/04/21 at 0815, Until Sun05/04/21 at 1943, Pain, Routine Given 05/04/2021 11:48 EST 2 mg HYDROmorphone (DILAUDID) tablet 2-4 mg Given 04/23/2021 21:02 EST 4 mg 2-4 mg, oral, EVERY 30 MINUTES PRN, 2 doses, Starting on 04/23/21 at 1948, Until 04/23/21 at 2201, Pain, Routine, Recovery (only) HYDROmorphone (DILAUDID) tablet 4 mg Given 04/23/2021 14:44 EST 4 mg 4 mg, oral, EVERY 4 HOURS PRN, Starting on 04/23/21 at 0919, Until 04/23/21 at 2210, Pain, Routine Given 04/23/2021 9:42 EST 4 mg HYDROmorphone (PF) (DILAUDID) 0.5 mg/0.5 mL Given 04/23/2021 21: 15 EST 0.5 mg syringe 0.3-0.5 mg 0.3-0.5 mg, intravenous, EVERY 10 MINUTES PRN, Starting on 04/23/21 at 1948, Until 04/23/21 at 2201, Pain, Routine, Recovery (only) Given 04/23/2021 20:42 EST 0.5 mg Given 04/23/2021 20:32 EST 0.5 mg HYDROmorphone (PF) (DILAUDID) 0.5 mg/0.5 mL Given 04/27/2021 12: 00 EST 0.5 mg syringe 0.3-0.5 mg 0.3-0.5 mg, intravenous, EVERY 10 MINUTES PRN, Starting on Sun04/27/21 at 1044, Until Sun04/27/21 at 1448, Pain, Routine, Recovery (only) Given 04/27/2021 10:58 EST 0.5 mg Given 04/27/2021 10:47 EST 0.5 mg HYDROmorphone (PF) (DILAUDID) 0.5 mg/0.5 mL Given 04/30/2021 10: 50 EST 0.5 mg syringe 0.3-0.5 mg 0.3-0.5 mg, intravenous, EVERY 10 MINUTES PRN, Starting on 04/30/21 at 1008, Until 04/30/21 at 1129, Pain, Routine, Recovery (only) Given 04/30/2021 10:24 EST 0.5 mg HYDROmorphone (PF) (DILAUDID) 0.5 mg/0.5 mL Given 04/22/2021 16: 38 EST 1 mg syringe 1 mg 1 mg, intravenous, NOW X1, 1 dose, On Sun04/22/21 at 1630, STAT HYDROmorphone (PF) (DILAUDID) 0.5 mg/0.5 mL Given 04/22/2021 18: 07 EST 1 mg syringe 1 mg 1 mg, intravenous, PRE-PROCEDURE, 1 dose, On Sun04/22/21 at 1800, Routine HYDROmorphone (PF) (DILAUDID) 0.5 mg/0.5 mL Given 04/22/2021 21: 13 EST 1 mg syringe 1 mg 1 mg, intravenous, NOW X1, 1 dose, On Sun04/22/21 at 2115, STAT HYDROmorphone (PF) (DILAUDID) 0.5 mg/0.5 mL Given 04/23/2021 0:5 6 EST 1 mg syringe 1 mg 1 mg, intravenous, NOW X1, 1 dose, On 04/23/21 at 0100, STAT HYDROmorphone (PF) (DILAUDID) 0.5 mg/0.5 mL Given 04/27/2021 13: 14 EST 1 mg syringe 1 mg 1 mg, intravenous, NOW X1, 1 dose, On Sun04/27/21 at 1245, Routine HYDROmorphone (PF) (DILAUDID) 0.5 mg/0.5 mL Given 04/27/2021 11: 07 EST 2 mg syringe 2 mg 2 mg, intravenous, NOW X1, 1 dose, On Sun04/27/21 at 1115, STAT HYDROmorphone (PF) (DILAUDID) 0.5 mg/0.5 mL syringe 1 dose, Starting on Sun04/22/21 at 2109, Until Sun at 2113 HYDROmorphone 1 mg/ml (DILAUDID) LAPIDARIST Rate Documented 04/25/2021 6:05 EST syringe, 30 ml intravenous, LAPIDARIST, Starting on 04/23/21 at 2030, Until 04/25/21 at 1103, See PRN bolus orders for breakthrough pain. CLICK to see order details, STAT, LAPIDARIST Dose (mg): 0.4, Lockout Interval (minutes): 10, Maximum Limit (mg/hr): 2.4 New Bag 04/25/2021 3:39 EST Rate Documented 04/25/2021 2:22 EST HYDROmorphone 1 mg/ml (DILAUDID) LAPIDARIST syringe, New Bag 20:38 EST 0.4 mg 30 ml intravenous, CONTINUOUS, Starting on Sun04/27/21 at 1145, Until Sun05/04/21 at 0815, Routine, LAPIDARIST Dose (mg): 0.4, Lockout Interval (minutes): 10, Continuous Infusion Dose (mg/hr): 0, Maximum Limit (mg/hr): 2.4 Rate Documented 05/02/2021 21:57 EST New Bag 05/02/2021 9:33 EST 0.4 mg 0 mL/hr ibuprofen (MOTRIN) tablet 400 mg Given 04/27/2021 4:07 EST 400 mg 400 mg, oral, EVERY 6 HOURS PRN, Starting on 04/23/21 at 2210, Until Sun04/27/21 at 2005, Pain, Routine Given 04/26/2021 22:17 EST 400 mg Given 04/26/2021 16:41 EST 400 mg ibuprofen (MOTRIN) tablet 400 mg Given 04/27/2021 12:30 EST 400 mg 400 mg, oral, PRN, 1 dose, Starting on Sun04/27/21 at 1044, Until Sun04/27/21 at 1230, Pain, Routine, Recovery (only) ibuprofen (MOTRIN) tablet 400 mg Given 05/04/2021 16:14 EST 400 mg 400 mg, oral, EVERY 6 HOURS PRN, Starting on Sun04/27/21 at 2005, Until Sun05/04/21 at 1943, Pain, Routine Given 05/04/2021 9:10 EST 400 mg Given 05/04/2021 1:01 EST 400 mg ketAMINE (KETALAR) 250 mg in Rate Documented 05/01/2021 14:08 EST 5 mg/hr 0.5 mL/hr NaCl 0.9% 25 mL syringe 5 mg/hr (0.5 mL/hr), intravenous, CONTINUOUS, Starting on 04/23/21 at 2030, Until 05/01/21 at 1423, STAT Rate Documented 05/01/2021 13:16 EST 5 mg/hr 0.5 mL/hr Rate Documented 05/01/2021 11:00 EST 5 mg/hr 0.5 mL/hr lactated ringers (LR) infusion New Bag 04/30/2021 8:43 EST at 75 mL/hr, intravenous, CONTINUOUS, Starting on Sun04/25/21 at 0000, Until 04/30/21 at 1239, Routine Continued by Anesthesia 04/30/2021 8:37 EST 75 mL/hr Restarted 04/27/2021 9:01 EST lactated ringers BOLUS 1,000 mL New Bag 04/22/2021 18:59 EST 1,000 mL 1,000 mL, intravenous, NOW X1, 1 dose, On Sun04/22/21 at 1730, STAT lidocaine (XYLOCAINE) 2 % jelly Given 04/22/2021 19:24 EST topical, NOW X1, 1 dose, On Sun04/22/21 at 1915 midazolam (PF) (VERSED) injection 2 mg Given 04/27/2021 12:21 EST 2 mg 2 mg, intravenous, EVERY 10 MINUTES PRN, 2 doses, Starting on Sun04/27/21 at 1035, Until Sun04/27/21 at 1221, Anxiety, Routine, Recovery (only) Given 04/27/2021 10:40 EST 2 mg polyethylene glycol 3350 (MIRALAX) packe t 17 g Given 05/04/2021 9:11 EST 17 g 17 g, oral, DAILY, First dose on 04/24/21 at 0900, Until Discontinued, Routine Given 05/02/2021 9:23 EST 17 g Given 05/01/2021 8:25 EST 17 g potassium chloride SA (K-DUR) tablet 20 mEq Given 04/23/2021 16:54 EST 20 mEq 20 mEq, oral, EVERY 4 HOURS, 3 doses, First dose (after last modification) on 04/23/21 at 0900, Last dose on 04/23/21 at 1700, Routine Given 04/23/2021 13:13 EST 20 mEq Given 04/23/2021 9:32 EST 20 mEq potassium chloride SA (K-DUR) tablet 20 mEq Given 04/24/2021 12:16 EST 20 mEq 20 mEq, oral, EVERY 4 HOURS, 2 doses, First dose (after last reorder) on 04/24/21 at 0900, Last dose on 04/24/21 at 1300, Routine Given 04/24/2021 9:38 EST 20 mEq senna (SENOKOT) tablet 2 Tablet Given 05/03/2021 20:03 EST 2 Tablets 2 Tablet, oral, AT BEDTIME, First dose on 04/23/21 at 2230, Until Discontinued, Routine Given 05/02/2021 20:04 EST 2 Tablets Given 05/01/2021 21:10 EST 2 Tablets tiZANidine (ZANAFLEX) tablet 4 mg Given 05/01/2021 8:25 EST 4 mg 4 mg, oral, EVERY 8 HOURS PRN, Starting on 04/23/21 at 2210, Until 05/01/21 at 1037, Muscle Spasms, Routine Given 04/30/2021 23:01 EST 4 mg Given 04/30/2021 13:33 EST 4 mg tiZANidine (ZANAFLEX) tablet 8 mg Given 05/04/2021 13:58 EST 8 mg 8 mg, oral, EVERY 8 HOURS PRN, Starting on Sun05/01/21 at 1037, Until Sun05/04/21 at 1943, Muscle Spasms, Routine Given 05/04/2021 6:00 EST 8 mg Given 05/03/2021 22:00 EST 8 mg vancomycin (VANCOCIN) IVPB 1,000 mg Given 04/24/2021 0:39 EST 1,000 mg 1,000 mg, intravenous, Administer over 60 Minutes, EVERY 12 HOURS, 11 doses, First dose on 04/22/21 at 2330, Last dose on Sun04/27/21 at 2330, Type of Therapy: Empiric, Suspected Indication (Select all that apply): Osteomyelitis, ID Consult: No, STAT Given 04/23/2021 11:11 EST 1,000 mg Given 04/22/2021 23:53 EST 1,000 mg vancomycin (VANCOCIN) IVPB 1,000 mg Given 04/24/2021 9:39 EST 1,000 mg 1,000 mg, intravenous, Administer over 60 Minutes, EVERY 8 HOURS, 21 doses, First dose (after last reorder) on 04/24/21 at 0800, Last dose on 05/01/21 at 0000, Type of Therapy: Empiric, Suspected Indication (Select all that apply): Osteomyelitis, ID Consult: No, STAT documented in this encounter Discontinued Medications Medication Sig Discontinue Reason Start Date End Date apixaban (ELIQUIS) 5 mg Take 1 Tab by mouth Therapy completed 10/2404/24/2021 tablet 2 times daily. cephALEXin (KEFLEX) 500 Take 500 mg by mg capsule mouth 4 times daily. sulfamethoxazole-trimetho Take 1 Tab by mouth 05/04/2021 prim every 12 hours. (BACTRIM/CO-TRIMOXAZOLE DS) 800-160 mg per tablet documented as of this encounter Active and Recently Administered Medications Times are shown in EST. Scheduled Medication Order 05/02/2021 05/03/2021 05/04/2021 acetaminophen (TYLENOL) tablet 1,000 mg 2002 (Given - Provider: Cindy James LPN) 0815 (Given - Provider: Karly Castorena RN)0828 (JUN Hold - Provider: Automatic Transfer Provider Hn - Reason: Patient off unit)1139 (JUN Unhold - Provider: Automatic Transfer Provider Hn)2002 (Given - Provider: Cindy James LPN) 0910 (Given - Provider: Karly Castorena RN) 1,000 mg, oral, EVERY 12 HOURS, First do se (after last modification) on Sun05/02/21 at 2100, Until Discontinued, Routine acetaminophen (TYLENOL) tablet 500 mg (CANCELED) 0014 (Given - Provider: Anyi Orellana RN)0557 (Given - Provider: Anyi Orellana RN)1241 (Not Given - Provider: Karly Castorena RN - Reason: Discontinued) 500 mg, oral, EVERY 6 HOURS, First dose (after last modification) on Sun04/25/21 at 1200, Until Discontinued, Routine amoxicillin (AMOXIL) capsule 500 mg 1613 (Given - Provider: Karly Castorena RN) 500 mg, oral, EVERY 8 HOURS, 21 doses, F irst dose on Sun05/04/21 at 1600, Last dose on Sun05/11/21 at 0800, Routine buprenorphine-naloxone (SUBOXONE) 2-0.5 mg sublingual film 3 Film 0923 (Given - Provider: Karly Castorena RN) 0815 (Given - Provider: Karly Castorena RN)0828 (JUN Hold - Provider: Automatic Transfer Provider Hn - Reason: Patient off unit)1139 (JUN Unhold - Provider: Automatic Transfer Provider Hn) 0910 (Given - Provider: Karly Castorena RN) 3 Film, sublingual, DAILY, First dose on Sun04/23/21 at 0900, Until Discontinued, Routine ceFAZolin (ANCEF) syringe 2 g 0700 (Due) 0828 (JUN Hold - Provider: Automatic Transfer Provider Hn - Reason: Patient off unit)1139 (JUN Unhold - Provider: Automatic Transfer Provider Hn) 2 g, intravenous, Administer over 10 Min utes, PLUGGER MAN TO O.R., 1 dose, First dose on Sun05/03/21 at 0700, Routine cefTRIAXone (ROCEPHIN) 2,000 mg in sodiu m chloride (NS MBP) 50 mL IVPB (CANCELED) 232 (Given - Provider: Cindy James LPN) 0828 ( Hold - Provider: Automatic Transfer Provider Hn - Reason: Patient off unit)1139 (JUN Unhold - Provider: Automatic Transfer Provider Hn)2242 (Given - Provider: Cindy James LPN) 2,000 mg, intravenous, Administer over 3 0 Minutes, EVERY 24 HOURS, 17 doses, First dose (after last modification) on 04/23/21 at 2330, Last dose on Sun05/09/21 at 2330, Type of Therapy: Empiric, Concepcion pected Indication (Select all that apply): Osteomyelitis, ID Consult: No, STAT collagenase (SANTYL) ointment 15 18 (Given - Provider: Karly Castorena RN) topical, DAILY, First dose on Sun05/04/21 at 1330, Until Disconti nued ferrous gluconate (FERGON) tablet 324 mg 1739 (Given - Provider: Karly Castorena RN) 0815 (Given - Provider: Karly Castorena RN)0828 (JUN Hold - Provider: Automatic Transfer Provider Hn - Reason: Patient off unit)1139 (JUN Unhold - Provider: Automatic Transfer Provider Hn)1855 (Given - Provider: Karly Castorena RN) 0910 (Given - Provider: Karly Castorena RN)1700 (Canceled Entry - Provider: Batch Job User Admin - Comment: Automatically canceled at discontinue of medication order) 324 mg, oral, 2 TIMES DAILY WITH BREAKFA ST & DINNER, First dose on Sun05/02/21 at 1730, Until Discontinued, Routine gabapentin (NEURONTIN) capsule 600 mg 0923 (Given - Pr ovider: Karly Castorena RN) 0815 (Given - Provider: Karly Castorena RN)0828 (JUN Hold - Provider: Automatic Transfer Provider Hn - Reason: Patient off unit)1139 (JUN Unhold - Provider: Automatic Transfer Provider Hn) 0910 (Given - Provider: Karly Castorena, JARRED) 600 mg, oral, DAILY WITH BREAKFAST, Firs t dose on 04/24/21 at 0800, Until Discontinued, Routine lidocaine 20 mg/mL (2 %) injection 10 mL 0900 (Canceled Entry - Provider: Batch Job User Admin - Comment: Automatically canceled at discontinue of medication order) 10 mL, other, NOW X1, 1 dose, On Sun05/04/21 at 0900, Routine polyethylene glycol 3350 (MIRALAX) packet 17 g 0923 (G iven - Provider: Karly Castorena RN) 0823 (Not Given - Provider: Karly Port er, RN - Reason: NPO)0828 (JUN Hold - Provider: Automatic Transfer Provider Hn - Reason: Patient off unit)113 (JUN Unhold - Provider: Automatic Transfer Provider Hn) 0911 (Given - Provider: Karly Castorena RN) 17 g, oral, DAILY, First dose on Sun at 0900, Until Discontinued, Routine senna (SENOKOT) tablet 2 Tablet 2003 (Given - Provider: Evelia James LPN) 08 (JUN Hold - Provider: Automatic Transfer Provider Hn - Reason: Patient off unit)113 (JUN Unhold - Provider: Automatic Transfer Provider Hn)2002 (Given - Provider: Cindy James LPN) 2 Tablet, oral, AT BEDTIME, First dose o n 04/23/21 at 2230, Until Discontinued, Routine Continuous Medication Order 05/02/2021 05/03/2021 05/04/2021 HYDROmorphone 1 mg/ml (DILAUDID) LAPIDARIST syringe, 30 ml (C ANCELED) 09 (New Bag - Provider: Karly Castorena RN)2156 (Rate Documented - Provider: Cindy James LPN) 2037 (New Bag - Provider: Monik Bryant RN) intravenous, CONTINUOUS, Starting on Sun04/27/21 at 1145, Until Sun05/04/21 at 0815, Routine, LAPIDARIST Dose (mg): 0.4, Lockout Interval (minutes): 10, Continuous Infusion Dose (mg/hr): 0, Maximum Limit (mg/hr): 2.4 PRN Medication Order 05/02/2021 05/03/2021 05/04/2021 alteplase (CATHFLO ACTIVASE) injection 2 mg 827 (JUN Hold - Provider: Automatic Transfer Provider Hn - Reason: Patient off unit)113 (JUN Unhold - Provider: Automatic Transfer Provider Hn) 2 mg, intercatheter, PRN, Starting on 04/28/21 at 2321, Until Sun05/04/21 at 1943, Line Care, Routine diphenhydrAMINE (BENADRYL) capsule 25 mg 0938 (Given - Provider: Karly Castorena RN)1739 (Given - Provider: Karly Castorena RN) 0815 (Given - Provider: Karly Castorena RN)0828 (JUN Hold - Provider: Automatic Transfer Provider Hn - Reason: Patient off unit)1139 (JUN Unhold - Provider: Automatic Transfer Provider Hn)185 (Given - Provider: Karly Castorena RN) 0022 (Given - Provider: Cindy James LPN)0910 (Given - Provider: Karly Castorena RN)1614 (Given - Provider: Karly Castorena RN) 25 mg, oral, EVERY 6 HOURS PRN, Starting on Sun04/30/21 at 1800, Until Sun05/04/21 at 1943, Itching, Routine hydrocortisone-aloe vera 1 % cream 2356 (Given - Provider: Cindy James LPN) topical, 4 TIMES DAILY PRN, Starting on Sun05/03/21 at 2322, Until Sun05/04/21 at 1943, Itching HYDROmorphone (DILAUDID) tablet 2 mg 1148 (Given - Provider: Karly Castorena RN)1614 (Given - Provider: Karly Castorena RN) 2 mg, oral, EVERY 4 HOURS PRN, Starting on Sun05/04/21 at 0815, Until Sun05/04/21 at 1943, Pain, Routine ibuprofen (MOTRIN) tablet 400 mg 0910 (Given - Provide r: Rae Armstrong RN)173 (Given - Provider: Karly Castorena RN) 0355 (Given - Provider: Cindy James LPN)0828 (JUN Hold - Provider: Automatic Transfer Provider Hn - Reason: Patient off unit)1139 (JUN Unhold - Provider: Automatic Transfer Provider Hn)185 (Given - Provider: Karly Castorena RN) 010 (Given - Provider: Cindy James LPN)0910 (Given - Provider: Karly Castorena RN)1614 (Given - Provider: Karly Castorena RN) 400 mg, oral, EVERY 6 HOURS PRN, Startin g on Sun04/27/21 at 2005, Until Sun05/04/21 at 1943, Pain, Routine lidocaine (PF) 10 mg/mL (1 %) injection 2 mg 0828 (JUN Hold - Provider: Automatic Transfer Provider Hn - Reason: Patient off unit)1139 (JUN Unhold - Provider: Automatic Transfer Provider Hn) 2 mg, intradermal, PRN, 4 doses, Startin g on 04/23/21 at 0500, Until 05/04/21 at 1943, peripheral intravenous catheter placement, Routine tiZANidine (ZANAFLEX) tablet 8 mg 0147 (Given - Provid er: Anyi Orellana RN - Comment: BP: 115/69)1030 (Given - Provider: Karly Castorena RN)2002 (Given - Provider: Cindy James LPN) 0421 (Given - Provider: Cindy James LPN)0828 (JUN Hold - Provider: Automatic Transfer Provider Gloria - Reason: Patient off unit)1139 (JUN Unhold - Provider: Automatic Transfer Provider Gloria)1326 (Given - Provider: Arnold Byrd RN) 0600 (Given - Provider: Cindy James LPN)1358 (Given - Provider: Brendon Hernández RN) 8 mg, oral, EVERY 8 HOURS PRN, Starting on 05/01/21 at 1037, Until Sun05/04/21 at 1943, Muscle Spasms, Routine 2200 (Given - Provider: Evelia James LPN) documented in this encounter Orders Medications Ordered That Might Not Have Count Last Ord ered Date First Ordered Date Been Administered atropine 0.1 mg/mL syringe 0.5 mg 4 05/03/2021 04/23/2021 lactated ringers (LR) infusion 4 05/03/2021 1 06/24/2020 lidocaine 20 mg/mL (2 %) injection 10 mL 1 022 naloxone (NARCAN) injection 0.2 mg 4 05/03/2021 04/23/2021 ceFAZolin (ANCEF) syringe 2 g 2 05/02/2021 fentaNYL citrate (PF) injection 25-50 mcg 1 2021 metoclopramide (REGLAN) injection 10 mg 3 04/30/19 22 04/23/2021 ondansetron (PF) (ZOFRAN) injection 4 mg 2 022 04/23/2021 sodium chloride 0.9 % irrigation 3 04/30/2021 04/23/2021 alteplase (CATHFLO ACTIVASE) injection 2 1 021 mg acetaminophen (TYLENOL) solution unit dose 1 04/27 cup 495 mg acetaminophen (TYLENOL) tablet 650 mg 1 04/27/2021 dexmedeTOMIDine (PRECEDEX) injection 50 1 04/27/20 21 mcg HYDROmorphone (PF) (DILAUDID) 0.5 mg/0.5 1 021 mL syringe HYDROmorphone (PF) (DILAUDID) 0.5 mg/0.5 1 021 mL syringe 0.5 mg vancomycin (VANCOCIN) IVPB 1,000 mg 1 04/24/2021 lidocaine (PF) 10 mg/mL (1 %) injection 2 1 2020 mg potassium chloride SA (K-DUR) tablet 20 1 04/23/20 21 mEq HYDROmorphone (PF) (DILAUDID) 0.5 mg/0.5 1 021 mL syringe 1 mg Procedures Count Last Ordered Date First Ordered Date ECG REPORT - SCANNED 2 05/06/2021 05/02/2021 Nursing Count Last Ordered Date First Ordered Date WOUND/DRESSING CHANGE 1 05/03/2021 CONTRAINDICATION TO ANTICOAGULATION 1 04/23/2021 THERAPY Consult Count Last Ordered Date First Ordered Date CONSULT DERMATOLOGY 1 05/02/2021 IV Count Last Ordered Date First Ordered Date IV REQUEST 7 05/04/2021 04/23/2021 Admission Count Last Ordered Date First Ordered Date ORDERS - SCANNED 1 05/06/2021 ADMIT TO INPATIENT 1 04/23/2021 Transfer Count Last Ordered Date First Ordered Date ED BED REQUEST 1 04/23/2021 Discharge Count Last Ordered Date First Ordered Date DISCHARGE PATIENT 1 05/04/2021 Equipment Count Last Ordered Date First Ordered Date WHEELCHAIR (RENTAL) 1 05/04/2021 Case Request Count Last Ordered Date First Ordered Date CASE REQUEST OPERATING ROOM 3 04/29/202103/31 documented in this encounter Care Teams Lead Clinical Research Coordinator Relationship Specialty Start Date End Date Ratna Olivas MD PCP - General 03/05/[address] [id number] documented as of this encounter
--- OUTSIDE RECORDS SUMMARY | 2022-02-03 15:59 | XMS_ITS | Encounter Summary ---
:1980 Author Organization [facility] Address [address] [place] [address] Care Team Providers Name Role Phone Ratna Olivas MD Primary Care Provider Encounter Details Date Type Department Care Team Description 09/14/2021 Lab Requisition [facility] Outr Resulting Lab, Pathology & Laboratory Provider [facility] [address], [place] [id number] Social History Tobacco Use Types Packs/Day Years [...] Procedure Name Priority Date/Time Associated Comments Diagnosis CHLAMYDIA/N. Routine 09/14/2021 9:15 Results for this GONORRHOEAE AMPLIFIED EDT proced ure are in RNA the results section. documented in this encounter Results CHLAMYDIA/N. GONORRHOEAE AMPLIFIED RNA (09/14/2021 9:15 EDT) Pathologist Sig nature Gonococcus Result Negative Negative [facility] Chlamydia Result Negative Negative [facility] Specimen Urine - Urine, Initial Void Narrative [facility] - 09/15/2021 15:26 EDT A first catch urine specimen is acceptab le for detection of Gonorrhea and Chlamydia, but might detect up to 10% fewer infecti ons when compared with vaginal and endocervical swab samples. Performing Organization Address City/State/ZIP Code Phon e Number [facility] [address] [place] [address] SERVICES documented in this encounter Visit Diagnoses Not on filedocumented in this encounter Care Teams Assistant Attorney General Relationship Specialty Start Date End Date Ratna Olivas MD PCP - General 03/05/[address] [id number] documented as of this encounter
--- OUTSIDE RECORDS SUMMARY | 2022-02-03 16:00 | XMS_ITS | Encounter Summary ---
:1980 Author Organization [facility] Address [address] [place] [address] Care Team Providers Name Role Phone Ratna Olivas MD Primary Care Provider Reason for Visit Auth/Cert Specialty Diagnoses / Procedures Referred By Contact Refer red To Contact Diagnoses Right arm cellulitis Sepsis Referral ID Status Reason Start Date Expiration Date Visits Requ ested Visits Authorized [id number] 1 1 Encounter Details Date Type Department Care Team Description 05/01/2021 Anesthesia Event [facility] Juliano Cano 111 [facility] e [address] [place] [address] (Wo rk) Anesthesia Record Procedure Summary Procedure Name Responsible Anesthesia Start Anesthesia Stop Anesthesiologist Time Time ANESTHESIA PAIN SERVICE Events No events on file. No medications on file. Agents No agents on file. Blood No blood administrations on file. Lines, Drains, and Airways Type Details Placement Removal Wound 04/23/21; 193; Incision; Right, 04/23/21 193 b y Trista, Anterior; Wrist; I&D right wrist JARRED Montoya carpal tunnel release (most recent I&D on 04/30) Open Drain 04/27/21; 0944; In OR by MD; 04/27/21 0944 by Sal Burris Right, Anterior; Other (Comment) JARRED Lau (wrist); (3/8 inch falguni drain) Wound 05/01/21; 1029; Dorsal (Foot), 05/01/21 1029 by Evelyn Lamb, Left; Y; Full thickness buggy man 05/03/21; 1031; Incision; 05/03/21 1031 by Sal Perez Anterior, Right; Hand; open wound JARRED Lau on right hand from previous surgery; Full thickness documented in this encounter Social History Tobacco [...] on filedocumented in this encounter Care Teams Rn Observation Relationship Specialty Start Date End Date Ratna Olivas MD PCP - General 03/05/[address] [id number] documented as of this encounter
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
--- OUTSIDE RECORDS SUMMARY | 2022-02-03 16:00 | XMS_ITS | Encounter Summary ---
:[address] [facility] Address [address] [place] [address] Care Team Providers Name Role Phone Ratna Olivas MD Primary Care Provider Reason for Visit Reason Comments Hand Pain BIBEMS tx from [facility]. R hand red, swollen and streaking up forearm. ulceration on left foot. hx IVDU, denies current use. limited ROM in L am. el evated WBCs, lactic WNL Diabetic Foot Infection Auth/Cert Specialty Diagnoses / Procedures Referred By Contact Refer red To Contact Diagnoses Right arm cellulitis Sepsis Referral ID Status Reason Start Date Expiration Date Visits Requ ested Visits Authorized [id number] 1 1 Encounter Details Date Type Department Care Team Description 05/03/2021 Surgery [facility] Main [place] OR Kev Hughes, right hand irrigation [address] [place] [address] closure [[id number] (CPT??)] [phone] [place] [address] (Wo rk) Surgery Details Date/Time Status Location OR Service Patient Case Class Case Tr auma Class Type Case? 05/03/21 1110 Posted [facility] OR [facility] 21 Orthopedics Inpatient H - Elective Panel 1 Procedure LRB Anes Op Region Wound Class Commen ts right hand irrigation and Right General Hand Class IV/ Dirty or debridement with closure Infected Surgeon Surgeon Role Service Panel Kev Hughes MD Primary Orthopedics 1 Soni Tirado PA-C Assisting Orthopedics 1 Social History Tobacco Use Types Packs/Day Years [...] Sign Reading Time Taken Comments Blood Pressure 110/59 05/03/2021 1143 EST Pulse 79 05/02/2021 2040 EST Temperature 36.2 ??C (97.2 ??F) 05/03/2021 1115 EST Respiratory Rate 19 05/03/2021 1115 EST Oxygen Saturation 98% 05/03/2021 1115 EST Inhaled Oxygen Concentration - - Weight 54.4 kg (120 lb) 04/23/2021 0400 EST Height 165.1 cm (5' 5) 04/23/2021 0400 EST Body Mass Index 19.97 05/03/2021 1502 [...] ??? *Right arm cellulitis 04/23/2021 ??? Sepsis ([facility]) 04/24/2021 ??? Open wound of left great toe 04/24/2021 ??? Below-knee amputation of right lower extremity determined by examination ([facility]) 04/04/2019 ??? Opioid use disorder, mild, abuse ([facility]) ([facility]) 01/17/2019 ??? Retained metal fragment foreign body 04/25/2021 Class: Permanent Right groin; needle ??? Acute carpal tunnel syndrome, right 04/22/2021 Added automatically from request for surgery [id number] Resolved Hospital Problems Diagnosis Date Noted Date Resolved ??? History of Raynaud's syndrome 04/24/2021 04/25/2021 Transition of care: [facility] Transition of Care report automatically routed to [...] and chronic foot ulcers who presented from [facility] with concerns for worsening R arm cellulitis [...] She was maintained on a regimen of FACILITIES OPERATOR dilaudid and ketamine drip before transitioning to PO regimentprior to discharge. Patient was discharged on FIELD SOFTWARE ENGINEER suboxone regimen with pain under control. Patient [...] Procedure Component Value Units Date/Time Cryoglobulin, Serum [[id number]] Collected: 05/03/21 0614 Lab Status: In process Specimen: Blood, Venous Updated: 05/03/21 0620 Bacterial Culture, Blood [[id number]] Collected: 05/02/21 162 Lab Status: In process Specimen: Blood, Venous Updated: 05/02/21 163 Bacterial Culture, Blood [[id number]] Collected: 05/02/21 162 Lab Status: In process Specimen: Blood, Venous Updated: 05/02/21 1635 Upcoming Appointments May 05, 2021 13:55 Us Gillian & Physiologic Study with [id number] [facility] Vascular Surgery - [facility] (--) [address] [facility] [address] Prep: -Wear loose fitting clothing and footwear appropriate for walking in the event that exercise testingis required. -Please bring any insurance information and a copayment if required by your insurance company. May 16, 2021 14:30 Post Op Visit with Kev Hughes MD [facility] Hand & Upper Extremity Program [facility] De Guzman (--) [address] [facility] [phone] Follow-up appointments and procedures [facility] I certify that this patient is under my care and that I, or another Medicare allowed practitioner (DO AIDEE, STU) working with me, had a [id number] encounter with this patient on this date: [...] Skilled Care Requested: Nursing asessment Wound care USP assessment needed related to this encounter: Wound, Ostomy or Incontinence Assessment Skin Integrity Post Surgical Senior Care Referral - Wound Care: (Please include care and frequency.): Other Please Specify: chronic left foot wounds Scheduling Comments (optional ??? describe specific scheduling needs if applicable): every other day: Vashe solution. Foot Ulcers should be covered with a thick layer of Vaseline, followed by application of non-adherent Telfa dressing. The foot should then be wrapped in Kerlix. Authorizing Provider: Brendon Justice MD [facility] Cleanse wound, apply santyl, and dress with telfa and kerlix. Change every other day. I certify that this patient is under my care and that I, or another Medicare allowed practitioner (DO AIDEE, STU) working with me, had a ytxy-nl-duko encounter with this patient on this date: 05/05/2021 The discharge summary or progress note will provide further details that support the need for the home health services and the plan of care.: Yes Enter the allowed practitioner (DO AIDEE, STU) who will provide oversight of this patient's home heatlh care needs and plan of care: Gissel The patient???s homebound status is related to [...] upper extremities Skilled Care Requested: Wound care Senior Care Referral - Wound Care: (Please include care [...] 05/03/[address] KEV HUGHES [address] [place], [place] [phone] POST OPERATIVE INSTRUCTIONS 1. Keep your dressing/splint [...] you [facility] out of [facility] you'll need to plan in advance for [...] Disposition Code Departure Means Destination Home-Health Care [facility] documented in this encounter Progress Notes Shane Cuevas MD - 05/04/2021 9920 EST Physician Query Response DEBRIDEMENT Anatomical Location: ( i.e. arm) wrist Instrument: (i.e. scalpel, curette) surgical sponge and irrigation Date: 04/30/2021 Please select from the choices below the option that best describes the patient's procedure: No, this is non-exisional involving the: Tendon Size: 4 sq cm Tissue Depth: Non-excisional debridement to tendon Antoinette Barth RN - 05/04/2021 1742 EST Halima Taylor RN from [facility] Program in [facility] called inquiring when was last dose of Suboxone was given. ANTOINETTE VARGAS RN 05/05/2021 11:48 Vaishali Humphrey - 05/04/2021 1541 EST Per , pt can be dc to home. She will have script for WC if needed. She will have [place] [facility] to assist with dressings. SHe has a ride scheduled with [facility] for 1800 in [facility]. Pt aware. Vaishali Briseno RNCC #[id number] Malik [...] coordinate as outpatient as she was dischar cary. Keren Mckeon MD 8:00 05/05/2021 [place] [...] disorder and chronic foot ulcers presents from [facility] for concerns for worsening right arm pain, [...] - ID consulted appreciate recs - Vanc [id number] - Continue ceftriaxone 2g Q24hrs until ready for discharge, then transition to cefpodoxime 200mg PO BID for total 4 week duration of abx (ending 05/21/21) - Pain regimen: APS now signed off - s/p Ketamine gtt - STOP dilaudid FACILITIES OPERATOR today; switch to PO - Tylenol 1000 mg PO Q12hr - Continue FIELD SOFTWARE ENGINEER gabapentin 600mg qD - Tizanidine increased to 8mg PO Q8hr PRN - Ibuprofen 400mg PO q6hr PRN - Continue FIELD SOFTWARE ENGINEER 6mg total as Suboxone 2-0.5mg x 3 [...] BID #History of Raynaud's disease - Continue FIELD SOFTWARE ENGINEER gabapentin ?? #Opoid use disorder - Regularly gets Suboxone from [facility]. UDS at OSH positive for cocaine use. - Continue FIELD SOFTWARE ENGINEER suboxone - APS consulted , appreciate recs, [...] second toe wounds followed by an outside form builder helper, right femoral artery infected pseudoaneurysm status post [...] Leal MD 05/04/2021 0:44 I am not video production specialist today and will not be able to answer calls. Please direct calls to the orthopaedicson call resident for further questions. Karly Ferrara RN - 05/03/2021 4892 EST Data: Assumed care of Pt at 0700 Pt A&Ox3 Denies CP/SOB/N/V/D/GUILLEN. Pt is independent to commode. Continent of urine and stool. On Room air. On a FACILITIES OPERATOR dilauded pump. BKA RLE. Pt went to [...] she looks forward to transitioning off the FACILITIES OPERATOR after the OR today. Really hopeful they [...] disorder and chronic foot ulcers presents from [facility] for concerns for worsening right arm pain, [...] - ID consulted appreciate recs - Vanc [id number] - Continue ceftriaxone 2g Q24hrs until ready for discharge, then transition to cefpodoxime 200mg PO BID for total 4 week duration of abx (ending 05/21/21) - Pain regimen: APS now signed off - s/p Ketamine gtt - Dilaudid FACILITIES OPERATOR 0.4mg q10 min PRN, no basal rate - plan to transition to PO after OR washout 05/03 - Tylenol 1000 mg PO Q12hr - Continue FIELD SOFTWARE ENGINEER gabapentin 600mg qD - Tizanidine increased to 8mg PO Q8hr PRN - Ibuprofen 400mg PO q6hr PRN - Continue FIELD SOFTWARE ENGINEER 6mg total as Suboxone 2-0.5mg x 3 [...] BID #History of Raynaud's disease - Continue FIELD SOFTWARE ENGINEER gabapentin ?? #Opoid use disorder - Regularly gets Suboxone from [facility]. UDS at OSH positive for cocaine use. - Continue FIELD SOFTWARE ENGINEER suboxone - APS consulted , appreciate recs, [...] second toe wound followed by an outside form builder helper, right femoral artery infected pseudoaneurysm status post [...] and stool. On Room air. On a FACILITIES OPERATOR dilauded pump. BKA RLE. NPO at midnight [...] for I&D tomorrow. -Antibiotics: Per ID -Continue local/FIELD SOFTWARE ENGINEER management of left foot ulceration with outpatient follow-up with form builder helper -Dispo: Pending REDDY JEROME MD 05/02/21 10:12 Patient has been formally staffed and signed out to the upper extremity service. Please page/contactthe on-call resident for that service with any questions regarding this patient's care. Vaishali Humphrey - 05/02/2021 0920 EST Pt is medically acute. Still needing closure of her wrist.CM following for DC needs. Plan for [place] [facility]. Vaishali Briseno RNCCM #[id number] Brendon Sherman MD - 05/02/2021 0724 [...] drip over the weekend. Using her dilaudid FACILITIES OPERATOR frequently but is unsure how often. States [...] disorder and chronic foot ulcers presents from [facility] for concerns for worsening right arm pain, [...] - ID consulted appreciate recs - Vanc [id number] - Continue ceftriaxone 2g Q24hrs until ready for discharge, then transition to cefpodoxime 200mg PO BID for total 4 week duration of abx (ending 05/21/21) - f/u with ID regarding switch to ampicillin given speciation S. dysgalactiae - Pain regimen: APS now signed off - s/p Ketamine gtt - Dilaudid FACILITIES OPERATOR 0.4mg q10 min PRN, no basal rate - consider transitioning to PO after OR washout tomorrow 05/03 - Tylenol 1000 mg PO Q12hr - Continue FIELD SOFTWARE ENGINEER gabapentin 600mg qD - Tizanidine increased to 8mg PO Q8hr PRN - Ibuprofen 400mg PO q6hr PRN - Continue FIELD SOFTWARE ENGINEER 6mg total as Suboxone 2-0.5mg x 3 film SL daily - Monitor fever curve - Daily CBCs with diff #Left Hallux and 2nd Toe Wound: Followed by podiatry at outside hospital. Ortho evaluated on admission and recommended dressing changes per patient home recs. - Dressing change q72hrs #Normocytic Anemia, chronic per chart review - f/u iron studies #History of Raynaud's disease - Continue FIELD SOFTWARE ENGINEER gabapentin ?? #Opoid use disorder - Regularly gets Suboxone from [facility]. UDS at OSH positive for cocaine use. - Continue FIELD SOFTWARE ENGINEER suboxone - APS consulted , appreciate recs, [...] arm in cast with zofia bandage. Ketaminedrip. FACILITIES OPERATOR dilaudid. Complains of pain 12/07. Action: Helped pt elevate RUE with pillows, gave meds per emar, hourly checks. Wound care dressing change on left foot. Response: Pt is comfortable in bed, using FACILITIES OPERATOR, will continue to monitor. EVELYN NJ RN [...] 2 mg, 2 mg, intercatheter, PRN, Sydnie Chakraborty DO ??? buprenorphine-naloxone (SUBOXONE) 2-0.5 mg sublingual film 3 Film, 3 Film, sublingual, DAILY, Sarah Monet PA-C, 3 Film at 04/30/21 1138 ??? cefTRIAXone (ROCEPHIN) 2,000 mg in sodium chloride (NS MBP) 50 mL IVPB, 2,000 mg, intravenous, Q24H, Sydnie Chakraborty DO, 2,000 mg at 04/30/21 2347 ??? diphenhydrAMINE (BENADRYL) capsule 25 mg, 25 mg, oral, Q6H PRN, Sydnie Chakraborty DO, 25 mg at 04/30/21 2345 ??? gabapentin (NEURONTIN) capsule 600 mg, 600 mg, oral, DAILY (BREAKFAST), Sarah Monet PA-C, 600 mg at 04/30/21 1139 ??? HYDROmorphone 1 mg/ml (DILAUDID) FACILITIES OPERATOR syringe, 30 ml, , intravenous, CONTINUOUS, Leo Aguilar MD, New Bag at 04/30/21 1552 ??? ibuprofen (MOTRIN) tablet 400 mg, 400 mg, oral, Q6H PRN, Christin Young MD, 400 mg at ??? ketAMINE (KETALAR) 250 mg in NaCl 0.9% 25 mL syringe, 5 mg/hr, intravenous, CONTINUOUS, Juliano Damon, Last Rate: 0.5 mL/hr at 05/01/21 0713, 5 mg/hr at 05/01/21 07 ??? lidocaine (PF) 10 mg/mL (1 %) [...] the patient is sedated). Tizanidine is an vduqe-5-surpaout like dexmedetomidine which may help with anxiety, [...] duration of opioid use for specific surgeries: [employer] Website) ??? Continue hydromorphone FACILITIES OPERATOR 0.4 mg every 10 mins No Basal [...] attestation - Juarez Martinez MD - 05/02/2021 8380 EST Attending attestation: I saw and examined the patient with the pain fellow/resident. I agree with the findings and plan of care documented in this note. Juarez Martniez MD 04/22/2021 Christin Young MD - 05/01/2021 0759 EST Family Medicine Progress Note Service Date: 05/01/2021 Admit [...] ketamine drip off. Has been using her FACILITIES OPERATOR frequently for the cramping sensation, notes her [...] disorder and chronic foot ulcers presents from [facility] for concerns for worsening right arm pain, [...] with ortho re: timing - NWB of ISAIAS, aggressive elevation, maintain volar resting - ID consulted appreciate recs - Vanc [id number] - Continue ceftriaxone 2g Q24hrs until ready for discharge, then transition to cefpodoxime 200mg PO BID for total 4 week duration of abx (ending 05/21/21) - Pain regimen: APS now signed off - Ketamine gtt discontinued this morning - Dilaudid FACILITIES OPERATOR 0.4mg q10 min PRN, no basal rate - Tylenol 500 mg PO Q6hr - Continue FIELD SOFTWARE ENGINEER gabapentin 600mg qD - Tizanidine increased to 8mg PO Q8hr PRN - Ibuprofen 400mg PO q6hr PRN - Continue FIELD SOFTWARE ENGINEER 6mg total as Suboxone 2-0.5mg x 3 film SL daily - Monitor fever curve - Daily CBCs with diff Left Hallux and 2nd Toe Wound: Followed by podiatry at outside hospital. Ortho evaluated on admission and recommended dressing changes per patient home recs. - Dressing change q72hrs History of Raynaud's disease - Continue FIELD SOFTWARE ENGINEER gabapentin ?? Opoid use disorder - Regularly gets Suboxone from [facility]. UDS at OSH positive for cocaine use. - Continue FIELD SOFTWARE ENGINEER suboxone - APS consulted , appreciate recs, [...] MD 05/01/21 10:38 Family Medicine PGY3, Page #[phone] Associated attestation - Clark Salinas MD - [...] -Diet: Per primary -Antibiotics: Per ID -Continue local/FIELD SOFTWARE ENGINEER management of left foot ulceration with outpatient follow-up with form builder helper -Dispo: Pending. Will discuss repeat I&D timing [...] for operative invention -Antibiotics: Per ID -Continue local/FIELD SOFTWARE ENGINEER management of left foot ulceration with outpatient follow-up with form builder helper -Dispo: Pending Juan Schmitz MD Orthopaedic Surgery, [...] disorder and chronic foot ulcers presents from [facility] for concerns for worsening right arm pain, [...] Ketamine gtt, decreased to 5mg/hr - Continue FIELD SOFTWARE ENGINEER gabapentin 600mg qD - Tizanidine 4mg PO Q8hr PRN - Ibuprofen 400mg PO q6hr PRN - Dilaudid FACILITIES OPERATOR 0.4mg q10 min PRN, no basal rate - Continue FIELD SOFTWARE ENGINEER 6mg total as Suboxone 2-0.5mg x 3 film SL daily - Monitor fever curve - Daily CBCs with diff Left Hallux and 2nd Toe Wound: Followed by podiatry at outside hospital. Ortho evaluated on admission and recommended dressing changes per patient home recs. - Dressing change q72hrs History of Raynaud's disease - Continue FIELD SOFTWARE ENGINEER gabapentin ?? Opoid use disorder - Regularly gets Suboxone from [facility]. UDS at OSH positive for cocaine use. - Continue FIELD SOFTWARE ENGINEER suboxone - APS consulted , appreciate recs, [...] Chakraborty DO, MPH Family Medicine PGY3, Page #[phone] 04/30/21, 11:19 Associated attestation - Clakr Salinas MD - 04/30/2021 1344 EST Attestation: I performed or was present during the joseph or critical portions of the visit and participated in the management of the patient on 04/30/21. I agree with the findings and plan of care as documented in the resident's/fellow's note. Clark aSlinas MD 04/30/2021 13:44 Juliano Damon - 04/30/2021 [...] IVPB, 2,000 mg, intravenous, Q24H, Sydnie Chakraborty, DO, 2,000 mg at 04/29/21 2334 ??? diphenhydrAMINE (BENADRYL) capsule 25 mg, 25 mg, oral, Q6H PRN, Joya Camarena MD, 25 mg at 04/30/21 0206 ??? gabapentin (NEURONTIN) capsule 600 mg, 600 mg, oral, DAILY (BREAKFAST), Sarah Monet PA-C, 600 mg at 04/29/21 0804 ??? HYDROmorphone 1 mg/ml (DILAUDID) FACILITIES OPERATOR syringe, 30 ml, , intravenous, CONTINUOUS, Leo [...] the patient is sedated). Tizanidine is an zatai-2-iicgjldr like dexmedetomidine which may help with anxiety, [...] duration of opioid use for specific surgeries: [employer] Website) ??? Continue hydromorphone FACILITIES OPERATOR 0.4 mg every 10 mins No Basal [...] pt. She is in agreement with Brian SOW at [place] for dressing changes. MD will need to specify dressing changes at [place]. SHe will need a ride home ([facility]). SHe does use [facility] for transportat home and feels that they may supply transport home. CM following. Vaishali Briseno RNCCM #[id number] Juliano Sage - 04/29/2021 0962 EST ACUTE PAIN SERVICE INITIAL INPATIENT FOLLOW [...] IVPB, 2,000 mg, intravenous, Q24H, Sydnie Chakraborty, DO, 2,000 mg at 04/28/21 2316 ??? gabapentin (NEURONTIN) capsule 600 mg, 600 mg, oral, DAILY (BREAKFAST), Sarah Monet PA-C, 600 mg at 04/29/21 0804 ??? HYDROmorphone 1 mg/ml (DILAUDID) FACILITIES OPERATOR syringe, 30 ml, , intravenous, CONTINUOUS, Leo [...] Monet PA-C, Last Rate: 75 mL/hr at 04/26/218, Restarted at 04/27/21 0901 ??? lidocaine (PF) [...] the patient is sedated). Tizanidine is an dmxml-9-kmhdsygt like dexmedetomidine which may help with anxiety, [...] duration of opioid use for specific surgeries: [employer] Website) ??? Continue hydromorphone FACILITIES OPERATOR 0.4 mg every 10 mins No Basal [...] midnight -Antibiotics: Per ID -continuing ceftriaxone. -Continue local/FIELD SOFTWARE ENGINEER management of left foot ulceration with outpatient follow-up with form builder helper -Dispo: Pending. -Possible take back to OR on 04/30/21 for wound I&D and potential closure Juan Schmitz MD Orthopaedic Surgery, PGY2 Claude Marie MD - 04/29/2021 0705 EST [facility] Medicine Progress Note Service Date: 04/29/2021 [...] disorder and chronic foot ulcers presents from [facility] for concerns for worsening right arm pain, [...] placed History of Raynaud's disease - Continue FIELD SOFTWARE ENGINEER gabapentin ?? Opoid use disorder - Regularly gets Suboxone from [facility]. UDS at OSH positive for cocaine use. - continue FIELD SOFTWARE ENGINEER suboxone APS consulted , appreciate recs, pain [...] DAILY (BREAKFAST) ??? HYDROmorphone 1 mg/ml (DILAUDID) FACILITIES OPERATOR syringe, 30 ml intravenous CONTINUOUS ??? ibuprofen [...] LIU RD, CD (Call PAS or use Intelli[employer] to page RD covering this unit) Leo [...] , , ??? HYDROmorphone 1 mg/ml (DILAUDID) FACILITIES OPERATOR syringe, 30 ml, , intravenous, CONTINUOUS, Leo [...] injection 2 mg, 2 mg, intradermal, PRN, Chiki, Sarah J, PA-C ??? polyethylene glycol 3350 (MIRALAX) packet 17 g, 17 g, oral, DAILY, Sarah Monet PA-C, 17 g at 04/28/21 0800 ??? senna (SENOKOT) tablet 2 Tablet, 2 Tablet, oral, QHS, Sarah Monet PA-C, 2 Tablet at 04/27/21 2044 ??? tiZANidine (ZANAFLEX) tablet 4 mg, 4 mg, oral, Q8H PRN, Sarah Monet PA-C, 4 mg at 04/28/21 0228 Allergies: Allergies Allergen Reactions ??? Other - [...] the patient is sedated). Tizanidine is an oabrc-7-nrydsfyr like dexmedetomidine which may help with anxiety, [...] duration of opioid use for specific surgeries: [employer] Website) ??? Continue hydromorphone FACILITIES OPERATOR 0.4 mg every 10 mins No Basal [...] patient easily transitioned off of ketamine and FACILITIES OPERATOR prior to surgery on 04/27/21. Will expect she will be able to transition easily again. Thank you for including the Acute Pain Service in care of this patient. Please contact us (pager #[phone]) with any questions or concerns. Patient seen [...] of the fingers. Labs: WBC/Hgb/Hct/Plts: 9.14/9.6/30.0/292 (04/28 07) Na/K/Cl/CO2: 138/4.3/100/29 (04/27 530) BUN/Cr/glu/ALT/AST/amyl/lip: 17/0.63/104/--/--/--/-- (04/27 [...] primary -Antibiotics: Per ID -continuing ceftriaxone. -Continue local/FIELD SOFTWARE ENGINEER management of left foot ulceration with outpatient follow-up with form builder helper -Dispo: Pending Juan Schmitz MD Orthopaedic Surgery, [...] Medications: Reviewed. Labs: Reviewed: CBC: Recent Labs 04/26/2118 04/27/21 0530 WBC 7.22 6.29 RBC 3.34* 3.43* [...] disorder and chronic foot ulcers presents from [facility] for concerns for worsening right arm pain, [...] Ketamine gtt (manged by APS) - Continue FIELD SOFTWARE ENGINEER gabapentin 600mg qD - Tizanidine 4mg PO Q8hr PRN - Ibuprofen 400mg PO q6hr PRN - Dilaudid FACILITIES OPERATOR 0.4mg q10 min PRN, no basal rate - Continue FIELD SOFTWARE ENGINEER 6mg total as Suboxone 2-0.5mg x 3 film SL daily - Follow-up OSH blood clxs -Called and left message 04/25 (negative BC at [facility] to date suggesting that this may [...] placed History of Raynaud's disease - Continue FIELD SOFTWARE ENGINEER gabapentin ?? Opoid use disorder - Regularly gets Suboxone from [facility]. UDS at OSH positive for cocaine use. [...] Chakraborty DO, MPH Family Medicine PGY3, Page #[phone] 04/28/21, 7:28 Associated attestation - Clark Salinas [...] greatly improved from last night. Titration of FACILITIES OPERATOR per APS. Anticipate DC tomorrow or possibly Sunday Clark Salinas MD 04/28/2021 13:23 Ayaz Jernigan RN - 04/28/2021 0607 EST Data: Assumed care of patient at 2330 AOx3 on room air with even, nonlabored respirations. Has intact dressing to right arm s/p I&D 04/27. Non-pitting swelling to fingers of right hand. Well healedright BKA. Ketamine infusion at 25 mg/hr and Hydromorphone FACILITIES OPERATOR at 0.4 mg q10 mins; 2.4 mg [...] restarted ketamine, trialed Precedex bolus, and restartedhydromorphone FACILITIES OPERATOR. Cannot perform brachial plexus block due to [...] , , , HYDROmorphone 1 mg/ml (DILAUDID) FACILITIES OPERATOR syringe, 30 ml, , intravenous, CONTINUOUS, Leo Aguilar MD, NewBag at 04/27/21 1137 ibuprofen (MOTRIN) tablet 400 mg, 400 mg, oral, PRN, Nivia Gimenez AA [MAR Hold] ibuprofen (MOTRIN) tablet 400 mg, 400 [...] mL/hr at106/27/20 2318, Restarted at 04/27/21 0901 [MAR Hold] lidocaine (PF) 10 mg/mL (1 %) injection 2 mg, 2 mg, intradermal, PRN, Sourav Leal MD metoclopramide (REGLAN) injection 10 mg, 10 mg, intravenous, PRN, Nivia Gimenez AA midazolam (PF) (VERSED) injection 2 mg, 2 mg, intravenous, Q10 MINUTES PRN, Tamra Chavarria MD, 2 mg at 04/27/21 1040 naloxone (NARCAN) injection 0.2 mg, 0.2 mg, intravenous, PRN, Nivia Gimenez AA [MAR Hold] polyethylene glycol 3350 (MIRALAX) packet 17 [...] Restart Ketamine and increase to 25 mg/hr [place] Precedex bolus 1 mcg/kg over 10 mins to help with post-op pain/anxiety Continue gabapentin 600 mg PO daily Muscle Relaxant: Continue tizanidine 4 mg PO Q8H PRN (hold if systolic blood pressure < 100 mmHg or if the patient is sedated). Tizanidine is an ernug-6-udijninm like dexmedetomidine which may help with anxiety, [...] duration of opioid use for specific surgeries: [place] Open Website) Restart hydromorphone FACILITIES OPERATOR 0.4 mg every 10 mins No Basal [...] of this patient. Please contact us (pager #[phone]) with any questions or concerns. Patient seen [...] Poss closure and dc pending result. [id number] Juan Alonzo MD - 04/27/2021 0714 EST [...] OR -Antibiotics: Per ID -continuing ceftriaxone. -Continue local/FIELD SOFTWARE ENGINEER management of left foot ulceration with outpatient follow-up with form builder helper -Plan for operative intervention with orthopedic surgery [...] disorder and chronic foot ulcers presents from [facility] for concerns for worsening right arm pain, [...] gtt (manged by APS) - D/C Dilaudid FACILITIES OPERATOR 04/25, transition to dilaudid 4-6 mg PO q3hr for pain - hydromorphone 0.5 mg IV Q4H PRN for breakthough pain - Tizanidine 4mg PO Q8hr - Continue FIELD SOFTWARE ENGINEER gabapentin - Continue FIELD SOFTWARE ENGINEER suboxone Suboxone 2-0.5mg 3 film SL daily - Follow-up OSH blood clxs -Called and left message 04/25 (negative BC at [facility] to date suggesting that this may [...] recs. History of Raynaud's disease - Continue FIELD SOFTWARE ENGINEER gabapentin ?? Opoid use disorder - Regularly gets Suboxone from [facility]. UDS at OSH positive for cocaine use. [...] James MD Family Medicine, PGY-3 04/27/21 6:48 #[id number] Associated attestation - Clark Salinas MD - [...] a little. ELMIRA LYNNE RN 04/26/2021 21:26 Arnold Hollingsworth MD - 04/26/2021 1301 EST ACUTE PAIN SERVICE INITIAL INPATIENT FOLLOW UP NOTE CHIEF COMPLAINT: right upper extremity pain SUBJECTIVE: Patient doing well after transitioning off of her HM FACILITIES OPERATOR to PO hydromorphone. States her pain is [...] (ANCEF) syringe 2 g, 2 g, intravenous, BEAM RACKER TO O.R., Sourav Leal MD cefTRIAXone (ROCEPHIN) 2,000 mg in sodium chloride (NS MBP) 50 mL IVPB, 2,000 mg, intravenous, Q24H, Sourav Leal MD, 2,000 mg at 04/25/21 2327 gabapentin (NEURONTIN) capsule 600 mg, 600 mg, oral, DAILY (BREAKFAST), Sourav Leal MD, 600 mg at 04/26/21 08 HYDROmorphone (DILAUDID) liquid 4-6 mg, 4-6 mg, [...] the patient is sedated). Tizanidine is an queep-9-xrjmzfsf like dexmedetomidine which may help with anxiety, [...] duration of opioid use for specific surgeries: [place] [employer] Website) Hydromorphone 4-6 mg PO Q3H PRN [...] of this patient. Please contact us (pager #[phone]) with any questions or concerns. Patient seen [...] midnight -Antibiotics: Per ID -continuing ceftriaxone. -Continue local/FIELD SOFTWARE ENGINEER management of left foot ulceration with outpatient follow-up with form builder helper -Dispo: Pending -Plan for repeat I&D with potential wound closure tomorrow 04/27/21 Juan Schmitz MD Orthopaedic Surgery, PGY2 Pager #[phone] Kraig Guerrier MD - 04/26/2021 0653 EST [...] 04/27/2021] ceFAZolin (ANCEF) syringe 2 g intravenous BEAM RACKER TO O.R. ??? cefTRIAXone (ROCEPHIN) 2,000 mg [...] disorder and chronic foot ulcers presents from [facility] for concerns for worsening R arm cellulitis [...] gtt (manged by APS) - D/C Dilaudid FACILITIES OPERATOR 04/25, transition to dilaudid 4-6 mg PO q3hr for pain - hydromorphone 0.5 mg IV Q4H PRN for breakthough pain - Tizanidine 4mg PO Q8hr - Continue FIELD SOFTWARE ENGINEER gabapentin - Continue FIELD SOFTWARE ENGINEER suboxone Suboxone 2-0.5mg 3 film SL daily - Follow-up OSH blood clxs -Called and left message 04/25 (negative BC at [facility] to date suggesting that this may [...] recs. #History of Raynaud's disease - Continue FIELD SOFTWARE ENGINEER gabapentin ?? #Opoid use disorder - Regularly gets Suboxone from [facility] clinic. UDS at OSH positive for cocaine [...] Type of housing (single family, condo, apartment, alf, single room occupancy, [facility] funded hotel room, group jail) - apartment Who does the patient live with?daughter-9Y.O. Does the patient have access to their own bedroom/bathroom/kitchen - or is it shared with others? own Name of housing complex (ex [place], [facility], etc)- [facility] Housing Authority/Managing Organization - subsidized housing Community Care Providers (registered nurse hh case manager, [facility] nurse, etc) name and contact information-na [...] healthcare treatment DIRECTIVES FOR FINANCES: TRANSPORTATION: Transportation: Medicaid[place]are[place] Transportation: RCT Patient expects to be discharged to: Home CULTURAL, BUDDHISM and/or LANGUAGE factors affecting health care/discharge planning: [...] Gait device: Crutch/Walker Community Services: Home health, [facility], [facility]-none of one time a week Will [...] Home Health Services: None DME Provider: Pharmacy: [id number] - [facility], [place] - [address] [facility] [id number] Home Health: Other: POST HOSPITAL TRANSITION PLAN:Pt resides with her 9YO daughter in an apartment in [facility]. SHe has a wc but rarely uses [...] ride home and will need to contact [facility] for ride. She states her new PCP is Georgette Ramsey, at [facility] internal Medicine in [facility]. CM will follow for any DC needs. VAISHALI BRISENO 04/25/2021 15:16 Arnold Hollingsworth MD - 04/25/2021 1024 EST ACUTE PAIN SERVICE INITIAL INPATIENT FOLLOW UP NOTE CHIEF COMPLAINT: right upper extremity pain SUBJECTIVE: Can in the knuckles. Pressure in nature. Pt doing well, pain well controlled. 5-8/10 No nightmares, but weird dreams REVIEW OF [...] 04/25/21 0848 ??? HYDROmorphone 1 mg/ml (DILAUDID) FACILITIES OPERATOR syringe, 30 ml, , intravenous, FACILITIES OPERATOR, Kyle Caballero MD, Rate Verify at 04/25/21 0605 ??? ibuprofen (MOTRIN) tablet 400 mg, 400 mg, oral, Q6H PRN, Joya Camarena MD, 400 mg at 04/25/21 0241 ??? ketAMINE (KETALAR) 250 mg in NaCl 0.9% 25 mL syringe, 15 mg/hr, intravenous, CONTINUOUS, Kyle Caballero MD, Last Rate: 1.5 mL/hr at 04/25/21 06, 15 mg/hr at 04/25/21 06 ??? lactated ringers (LR) infusion, , intravenous, [...] the patient is sedated). Tizanidine is an mcnnj-9-ordcygxg like dexmedetomidine which may help with anxiety, [...] duration of opioid use for specific surgeries: [place] [employer] Website) ??? Stop FACILITIES OPERATOR ??? Start hydromorphone 4-6 mg PO Q3H [...] of this patient. Please contact us (pager #[phone]) with any questions or concerns. Patient seen with Leo Aguilar MD (resident) Arnold Arredondo MD Tomeka Moreno MD - 04/25/2021 0829 EST Orthopedic surgery progress note: Problem: Right [...] from the right hand Assessment and plan: Lnidsay Jean Baptiste is a 40 y.o. female [...] her left foot ulceration, she continue her FIELD SOFTWARE ENGINEER management with outpatient follow-up with her form builder helper. TOMEKA HUERTA MD 04/25/2021 8:29 Kraig Guerrier [...] patient on a ketamine gtt and dilaudid FACILITIES OPERATOR. Subjective/Objective Subjective Patient resting comfortably in bed [...] DAILY (BREAKFAST) ??? HYDROmorphone 1 mg/ml (DILAUDID) FACILITIES OPERATOR syringe, 30 ml intravenous FACILITIES OPERATOR ??? ibuprofen (MOTRIN) tablet 400 mg oral [...] disorder and chronic foot ulcers presents from [facility] for concerns for worsening R arm cellulitis [...] gtt (manged by APS) - D/C Dilaudid FACILITIES OPERATOR, transition to dilaudid 4-6 mg PO q3hr for pain - Consider hydromorphone 0.5 mg IV Q4H PRN for breakthough pain - Tizanidine 4mg PO Q8hr - Continue FIELD SOFTWARE ENGINEER gabapentin - Continue FIELD SOFTWARE ENGINEER suboxone Suboxone 2-0.5mg 3 film SL daily - Follow-up OSH blood clxs -Called and left message today (negative BC at [facility] to date suggesting that this may [...] recs. #History of Raynaud's disease - Continue FIELD SOFTWARE ENGINEER gabapentin ?? #Opoid use disorder - Regularly gets Suboxone from [facility]. UDS at OSH positive for cocaine use. [...] RODRIGUES MD 04/25/2021 7:16 Family Medicine PGY1 [id number] Associated attestation - Clark Salinas MD - [...] an outpatient by her orthopedic surgeon in [place] Clark Salinas MD 04/25/2021 14:23 Elmira Lynne [...] in reach ELMIRA LYNNE RN 04/24/2021 16:53 FJona Jay, ELMER - 04/24/2021 0927 EST ACUTE PAIN SERVICE INITIAL INPATIENT FOLLOW [...] Q24H, Sourav Leal MD, 2,000 mg at 04/23/21 2321 ??? gabapentin (NEURONTIN) capsule 600 mg, 600 mg, oral, DAILY (BREAKFAST), Sourav Leal MD ??? HYDROmorphone 1 mg/ml (DILAUDID) FACILITIES OPERATOR syringe, 30 ml, , intravenous, FACILITIES OPERATOR, Kyle Caballero MD, New Bag at 04/23/212026 [...] the patient is sedated). Tizanidine is an wqwfa-4-ldogzqrp like dexmedetomidine which may help with anxiety, [...] duration of opioid use for specific surgeries: [employer] Open Website) ??? Continue HM IV FACILITIES OPERATOR 0.4mg q10 ??? Pt's home dose daily [...] of this patient. Please contact us (pager #[phone]) with any questions or concerns. Colleen Ware MD [facility] Pain Medicine Fellow PGY-5 04/24/21 Attending attestation: [...] disorder and chronic foot ulcers presents from [facility] for concerns for worsening R arm cellulitis [...] results found for: ZINCMZN, COPPER, THIAMINE, FOLATE, [id number], METMMETHY, VITEALPH, RETINOL, VITD No results found [...] or fat wasting Dig[employer]ive Systems: Last BM captain assistant Skin: surgical wound to wrist Open areas [...] patient on a ketamine gtt and dilaudid FACILITIES OPERATOR. Subjective/Objective Subjective The patient notes that her [...] DAILY (BREAKFAST) ??? HYDROmorphone 1 mg/ml (DILAUDID) FACILITIES OPERATOR syringe, 30 ml intravenous FACILITIES OPERATOR ??? ibuprofen (MOTRIN) tablet 400 mg oral [...] disorder and chronic foot ulcers presents from [facility] for concerns for worsening R arm cellulitis [...] Ketamine gtt (manged by APS) - Dilaudid FACILITIES OPERATOR (managed by APS), FACILITIES OPERATOR dose 0.4mg, Max limit 2.4mg/hr - Tizanidine 4mg PO Q8hr - Continue FIELD SOFTWARE ENGINEER gabapentin - Continue FIELD SOFTWARE ENGINEER suboxone - Follow-up OSH blood clxs (attempted [...] recs. #History of Raynaud's disease - Continue FIELD SOFTWARE ENGINEER gabapentin ?? #Opoid use disorder - Regularly gets Suboxone from [facility]. UDS at OSH positive for cocaine use. - Continue FIELD SOFTWARE ENGINEER Suboxone 6-1.5 mg once daily - Inpatient substance use treatment algorithm: - UDS samples PRN - Consult pharmacy for med review - Cover all IVs at all time - Substance use agreement signed ?? VTE Prophylaxis Seqential Compression Device *Note patient isn't on apixaban FIELD SOFTWARE ENGINEER, as previously noted in her chart. ?? Code: Prior Discharge Plan Home or self care ?? Consults None Gigi Ramos MD 04/24/2021 8:15 Family Medicine [id number] signed by Zhen Beavers III, MD at [...] and she is on ketamine and dilaudid FACILITIES OPERATOR. Reassuringly, her clinic picture is slightly improved [...] answer calls. Please direct calls to orthopaedics video production specialist resident for further questions. Sourav Corea MD - 04/24/2021 0235 EST Surgery Post-Op [...] 04/23/2021 12:42 Tomeka Moreno MD - 04/23/2021 0913 EST Orthopedic surgery progress note: Problem: Right [...] H&P Notes Luz Chavarria MD - 04/23/2021 6472 EST Hospital Medicine Admission History & Physical Service Date: 04/23/2021 Admit Date: 04/23/21 Primary Care Provider: Ratna Olivas Chief Complaint: R arm swelling HPI Lindsay Jean Baptiste is a 40 y.o. female with a PMHx of osteomyelitis status post right BKA, IVDU, opioid use disorder and chronic foot ulcers presents from [facility] for concerns for worsening R arm cellulitis [...] that she has had to come to [place] to seek care, but hopes she is in the right place. Reports she receives her Suboxone (on taper bc wants to get off, decreased to 4+2 QAM about a month ago) for from the [facility] clinic Denies any recent IVDU including in right upper extremity. Denies trauma including around nail of the upper extremity and denies soaking in any water. Reports her UPT was negative at [facility]. History of pseudomonas from a RLE culture. UDS positive for cocaine prior to transfer. Interested in having and 9 year old daughter visit. Review of Systems A complete 10 point ROS was performed and pertinent positive and negative findings listed in HPI, otherwise negative. Past Medical History: Diagnosis Date ??? Bacteremia due to Staphylococcus aureus ??? Cocaine abuse ([facility]) ??? DVT (deep venous thrombosis) (HCC-CMS) ([facility]) ??? Hepatitis C antibody positive in blood ??? Iron deficiency anemia ??? Polysubstance abuse (HCC-CMS) ([facility]) ??? Retained foreign body left groin, unsuccessful [...] disorder and chronic foot ulcers presents from [facility] for concerns for worsening R arm cellulitis [...] need med rec if patient still taking FIELD SOFTWARE ENGINEER Gabapentin, patient not able to confirm on initial assessment #Opoid use disorder - Regularly gets Suboxone from [facility] clinic. UDS at OSH positive for cocaine [...] Intake/Output Summary (Last 24 hours) at 05/04/2021 0925 Last data filed at 05/04/2021 0600 Gross [...] fluctuance. Psych: Appropriate mood and affect. Access: [facility] Labs Recent Labs 05/03/21 0524 05/04/21 [...] podiatry team. Patient followed closely by podiatry [place] who plans to do an amputation of [...] from last operation: 05/03/2021-05/16/2021 3. Follow-up with form builder helper in [place] upon discharge who plans to do amputation [...] Will need repeat CBC in 2-3 days. MD Komal Ramila Mcnamara MD - 05/02/2021 1640 ESTAssociated [...] [START ON 05/03/2021] ceFAZolin, 2 g, intravenous, BEAM RACKER TO O.R. cefTRIAXone (ROCEPHIN) IVPB (2 g [...] or concerns. Malik Cain MD Dermatology, PGY-3 #[id number] 05/02/2021 19:31 Attestation Statement: I saw and examined the patient with the resident/fellow. I agree with the findings and plan of care documented in the resident's/fellow's note. Ramila Mcnamara MD Dermatology [facility] Eren Garner DO - 04/28/2021 0907 EST INFECTIOUS DISEASES [...] raised rash on back MEDICATIONS: Reviewed in MAR. Pertinent for Current Facility-Administered Medications Medication Route [...] mL syringe ??? HYDROmorphone 1 mg/ml (DILAUDID) FACILITIES OPERATOR syringe, 30 ml intravenous CONTINUOUS ??? ibuprofen [...] Reviewed in detail in PRISM. WBC/RBC/HGB/HCT/PLT/ANC9.14/3.41/9.6/30.0/292/6.50 (04/28 07) Estimated Creatinine Clearance: 99.3 mL/min (by C-G [...] podiatry team. Patient followed closely by podiatry [place] who plans to do an amputation of [...] stop day 21 May. Patient lives in [facility] and can follow-up with her PCM 2. Follow-up with form builder helper in [place] upon discharge who plans to do amputation of left great toe per her report. Eren Tavarez DO Pager [phone] Infectious Diseases Attending Eren Garner DO - [...] 04/27/2021] ceFAZolin (ANCEF) syringe 2 g intravenous BEAM RACKER TO O.R. ??? cefTRIAXone (ROCEPHIN) 2,000 mg [...] 6. 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 HCV antibody positive [...] next blood draw Eren Tavarez DO Pager [phone] Infectious Diseases Attending Aubrey Mar MD - [...] redness with pain. She was seen at [facility] and a CT showed fluid around [...] of Bacteremia due to Staphylococcus aureus, Cocaineabuse ([facility]), DVT (deep venous thrombosis) ([facility]- CMS) ([facility]), Hepatitis C antibody positive in blood, Iron deficiency anemia, Polysubstance abuse ([facility]) ([facility]), Retained foreign body, and Skin abscess. Past Surgical History: has a past surgical history that includes Ectopic surgery; Abdominal exploration surgery; vascular surgery (Right, 06/29/2017); below knee amputation (Right); and Hand surgery. Medications: MAR reviewed. Anti-infectives: Ceftriaxone 2 g day D3 / Vancomycin D3 Allergies: Patient has no known allergies. Family History: Ca, DM, MS Social History: Lives in [place] with her daughter, but father involved, on [...] R hand infection with negative BC at [facility] to date suggesting that this may [...] suboxone c/b peripheral vascular disease (right obturator [id number] for infected pseudoaneurysm followed by right BKA 2018), hepatitis C, DVT, and depression now POD# 0 s/p open carpal tunnel releaes for increased right hand swelling/redness/pain x 3d. APS consulted for assistance with postoperative pain management. Patient currently sedated in PACU, unable to perform ROS. Location: RUE REVIEW OF SYSTEMS: unable to perform due [...] Status Never Smoker Smokeless Tobacco Never Used [place] PRESCRIPTION MONITORING PROGRAM QUERY: VPMS Link Medications: Current Facility-Administered Medications: ??? [JUN Hold] acetaminophen (TYLENOL) tablet 650 mg, 650 mg, oral, Q6H PRN, Gigi Raoms MD, 650 mg at 04/23/21 3024 ??? atropine 0.1 mg/mL syringe 0.5 mg, 0.5 mg, intravenous, PRN, Pako Walden, AA ??? [MAR Hold] buprenorphine-naloxone (SUBOXONE) 2-0.5 mg sublingual film 3 Film, 3 Film, sublingual, DAILY, Russell, Maribel, DO, 3 Film at 04/23/21 0819 ??? [JUN Hold] cefTRIAXone (ROCEPHIN) 2,000 mg in sodium chloride (NS MBP) 50 mL IVPB, 2,000 mg, intravenous, Q24H, Russell, Maribel, DO ??? [MAR Hold] cyclobenzaprine (FLEXERIL) tablet 10 mg, 10 mg, oral, Daily PRN, Gigi Ramos MD, 10 mg at 04/23/21 1424 ??? diphenhydrAMINE (BENADRYL) injection 12.5 mg, 12.5 mg, intravenous, PRN, Ginns, Pako, AA ??? fentaNYL citrate (PF) injection 25-50 mcg, 25-50 mcg, intravenous, Q5 MINUTES PRN, Ginns, Pako, AA ??? [JUN Hold] gabapentin (NEURONTIN) capsule 600 mg, 600 mg, oral, DAILY (BREAKFAST), Gigi Ramos MD ??? HYDROmorphone (DILAUDID) tablet 2-4 mg, 2-4 mg, oral, Q30 MINUTES PRN, Ginns, Pako, AA ??? [JUN Hold] HYDROmorphone (DILAUDID) tablet 4 mg, 4 mg, oral, Q4H PRN, Gigi Ramos MD, 4mg at 04/23/21 1444 ??? HYDROmorphone (PF) (DILAUDID) 0.5 mg/0.5 mL syringe 0.3-0.5 mg, 0.3-0.5 mg, intravenous, Q10 MINUTES PRN, Ginns, Pako, AA, 0.5 mg at 04/23/212031 ??? HYDROmorphone 1 mg/ml (DILAUDID) FACILITIES OPERATOR syringe, 30 ml, , intravenous, FACILITIES OPERATOR, Ruthie Main DO, New Bag at 04/23/212026 ??? ketAMINE (KETALAR) 250 mg in NaCl 0.9% 25 mL syringe, 15 mg/hr, intravenous, CONTINUOUS, Ruthie Main DO, Last Rate: 1.5 mL/hr at 04/23/212032, 15 mg/hr at 04/23/212032 ??? lactated ringers (LR) infusion, , intravenous, PACU CONTINUOUS, Iram, Pako, AA ??? [JUN Hold] lidocaine (PF) 10 mg/mL (1 %) injection 2 mg, 2 mg, intradermal, PRN, Russell, Maribel, DO ??? metoclopramide (REGLAN) injection 10 mg, 10 mg, intravenous, PRN, Iram, Pako, AA ??? naloxone (NARCAN) injection 0.2 mg, 0.2 mg, intravenous, PRN, Iram, Pako, AA ??? ondansetron (PF) (ZOFRAN) injection 4 mg, 4 mg, intravenous, PRN, Iram, Pako, AA ??? [JUN Hold] vancomycin (VANCOCIN) [...] the patient is sedated). Tizanidine is an zxayy-4-aerrimcv like dexmedetomidine which may helpwith anxiety, sleep, [...] duration of opioid use for specific surgeries: [employer] Website) ??? Patient Controlled Analgesia (FACILITIES OPERATOR): Start hydromorphone .4 mg per demand 10 [...] of this patient. Please contact us (pager #[phone]) with any questions or concerns. Ruthie Main [...] Diabetes Paternal Grandfather Social History: Lives in [place] with her daughter has been on disability [...] flexor pollicis longus, extensor pollicis longus, interossei, channel man due to pain; 5/5 strength in elbow [...] 7/0.65/89/--/--/--/-- (04/22 1639) Assessment: Lindsay Jean Baptiste [id number] 1980 Lindsay Jean Baptiste is a right-hand dominant [...] SERVICE DATE: 05/03/2021 SURGEON: Kev Hughes MD HEAD MILLER: Soni Tirado PA-C (no residents available) PREOPERATIVE [...] the operating room by another surgeon at [facility] and undergone an open carpal tunnel release [...] retained. Kev Hughes MD / AM Confirmation: [id number] Dictation ID: [id number] cc: R Surgeon - Shane Cuevas MD - 04/30/2021 0000 EST OPERATIVE REPORT SERVICE DATE: 04/30/2021 PREOPERATIVE DIAGNOSIS: Right hand volar wound. POSTOPERATIVE DIAGNOSIS: Right hand volar wound. PROCEDURE: Right palm and proximal forearm volar wound irrigation and debridement of the carpal tunnel. SURGEON: Shane Cuevas MD HEAD MILLER: Reddy Jerome MD, PGY1 ANESTHESIA: General endotracheal. [...] was turned to her wound. The previous Falguni drain actually came out as we were [...] drains retained. Shane Cuevas MD / Confirmation: [id number] Dictation ID: [id number] cc: R Surgeon - Stone Bansal MD - 04/27/2021 0000 EST OPERATIVE REPORT SERVICE DATE: 04/27/2021 SURGEON: Stone Bansal MD HEAD MILLER: AUBREE Hartley-Certified (No ACGME qualified resident was available to assist because of duty hour restrictions. Because of the complexity of the case, as indicated in the Procedure section; and described in detail in the Narrative section below, I requested AUBREE Hartley, to assist. During this procedure, the PA performed the following functions in the operating room: The group fitness assistant department head at the time of surgery under my [...] Once 9 L had been completed, a Marion drain was placed deep underneath the flexor [...] no drains retained. Stone Bansal MD / CD Confirmation: [id number] Dictation ID: [id number] cc: R Surgeon - Kyle Caballero MD - 04/24/2021 0105 EST OPERATIVE REPORT SERVICE DATE:04/23/2021 SURGEON: Stone Bansal MD HEAD MILLER: MD Kyle Guerrero MD PREOPERATIVE DIAGNOSIS:right open carpal tunnel syndrome POSTOPERATIVE DIAGNOSIS: same PROCEDURE: right open carpal tunnel release ANESTHESIA: General anesthesia FLUIDS:500 cc TOURNIQUET TIME:24 minutes URINE OUTPUT: 0 SPECIMENS: purulent fluid sent for culture COMPLICATIONS: none INDICATIONS: Lindsay Jean Baptiste is a [id number] 40-year-old female with past medical history including [...] proximally and distally by palpation with a Tyler as well as direct visualization. The median nerve was inspected andwas found to be without further compression. A Tyler was gently used to explore the flexor [...] PA-C - 04/22/2021 2225 EST I, Ke Rowland, am scribing for Maggie Dahl PA-C while he/she is personally performing the service. Ke Rowland 04/22/2021 22:26 Lindsay Jean Baptiste is a 40 y.o. female who presents to the ED with hand pain. The patient was transferred to [facility] from [facility] over concern over right hand infection. Patient [...] Chief Complaint Hand Pain (BIBEMS tx from [facility]. R hand red, swollen and streaking up [...] today with Hand Pain (BIBEMS tx from [facility]. R hand red, swollen and streaking up forearm. ulceration on left foot. hx IVDU, denies current use. limited ROM in L am. elevated WBCs, lactic WNL) and Diabetic Foot Infection Patient is transferred from [facility] for concern about right hand infection, perhaps [...] few days. She was seen yesterday at [facility] was found to be febrile with a leukocytosis. She had blood cultures collected, was started on vancomycin andceftriaxone. CT scan of the right upper extremity showed fluid around the right hand flexor tendons,concerning for flexor tenosynovitis. Original plan was to transfer to [facility], but this fell through and patient was accepted by [facility] orthopedics for evaluation. Patient takes Suboxone, states [...] of any of her fingers. Redness extends usp up the medial forearm, otherwise stops justproximal [...] and stool. On Room air. On a FACILITIES OPERATOR dilauded pump. BKKadie RLE. Action: Head to toe assessment. Medicated per JUN. PRN given for muscle spasms @ 2230, pt c/o itchiness on back and arms,anti-itch cream ordered and applied. No visible issues with skin in these areas.Hourly checks. Response: No acute changes this shift. Pt states she is excited to be d/c soon. Pt resting in bed with eyes closed. States pain is a tolerable 08/07. [facility]. CINDY MARLON JAMES 05/04/2021 3:06 rief Op Note - Soni Tirado PA-C - 05/03/2021 1036 EST Date: 04/22/2021 - 05/03/2021 Location: [facility] OR Name: Lindsay Jean Baptiste, : 1980, Diagnosis Pre-Op Diagnosis Codes: * Right arm cellulitis [L03.113] * Acute carpal tunnel syndrome, right [G56.01] Post-op Diagnosis * Right arm cellulitis [L03.113] * Acute carpal tunnel syndrome, right [G56.01] Procedures right hand irrigation and debridement with closure 38419 - MI DEBRIDEMENT, SKIN, SUB-Q TISSUE,MUSCLE,EACH ADD 20 SQ [...] 14 min Rt arm @ 250mmHg Staff: Chair Car Attendant: Sal Tubbs RN Scrub Person: Nya Balbuena Patient Branch Manager: Ozzie Lizama Indications: Lindsay Jean Baptiste is [...] for the entire procedure Kev Hughes MD [id number] signed by Soni Tirado PA-C at 05/03/2021 [...] and stool. On Room air. On a FACILITIES OPERATOR dilauded pump. BKA RLE. Currently NPO for [...] Goals Goal: Care Plan Documentation Flowsheets (Taken 05/01/20212251) Goal This Shift: Patient will have adequate pain management at this shift. Note: D: Patient admitted with R arm cellulitis, ID done, patient still experiencing pain rated 6/10. A :The wound at R arm looks clean , patient has pain med per eMAR, she is on dilaudid FACILITIES OPERATOR we are clear up Q 2 . Patient has her hand elevated. R : Patient is able to move her fingers, the pain seems well controled by FACILITIES OPERATOR, non grimaces or moaning, will continue to monitor. lan of Cruz - Brendon Lopez RN - 05/01/2021 0432 [...] touch with minimal movement of right fingers. FACILITIES OPERATOR dilaudid and ketamine drip in place for [...] BRENDON LOPEZ RN 05/01/2021 4:32 lan of Cruz - Brendon Hernández RN - 04/30/2021 1400 EST Problem: Daily Care Plan Goals Goal: Care Plan Documentation Outcome: Ongoing Flowsheets (Taken 04/30/2021 1133) Area of Focus: Pain/ Comfort Goal This Shift: Pt's pain will be well managed this shift Data: Pt is A/O x3, VSS, reports pain in R arm 5/10. Independent to commode. Ketamine gtt and dilaudid FACILITIES OPERATOR. Action: Scheduled medications and PRN Benadryl and [...] cellulitis Procedure(s): Complex I&D UE Wound (CPT 17271) Findings: No purulence or evidence of necrotic [...] 1 cm of the volar wound. Staff: Chair Car Attendant: Tamika Cox RN Scrub Person: Goldie Barry RN Patient Branch Manager: Gui Livingston Disposition and Condition: PACU in [...] 0656 Area of Focus: Pain/ Comfort Taken 04/29/2021 2001 Goal This Shift: Pt will have tolerable pain during this shift D: Assumed pt care 1909 Pt is A&OX3, Denies SOB, chest pain, N/V but has pain on her right arm /fingers. Pt is on FACILITIES OPERATOR dilaudid and Ketamine drip for pain management [...] on continuous IVKetamine infusion and IV Dilaudid FACILITIES OPERATOR. C/O 5-6/10 right wrist pain intermittently throughout [...] on Ketamine drip as well as Dilaudid FACILITIES OPERATOR with verbalized effect. Dressing and splint clean, [...] Continuous Ketamine infusion as well as Dilaudid FACILITIES OPERATOR with verbalized positive effect. Dressing clean, dry, [...] 17:38 rief Op Note - Sarah Monet PA-Miguel - 04/27/2021 0909 EST Date: 04/22/2021 - 04/27/2021 Location: [facility] OR Name: Lindsay Jean Baptiste, : 1980, Diagnosis Pre-Op Diagnosis Codes: * Right arm cellulitis [L03.113] Post-op Diagnosis * Right arm cellulitis [L03.113] Procedures COMPLEX INCISION AND DRAINAGE, WOUND, UPPER EXTREMITY 30062 - MI COMPLEX DRAINAGE, WOUND Surgeons * Stone Bansal MD - Primary Flako MAK group fitness assistant department head Procedure Summary Anesthesia: General ASA: III Estimated [...] Wound 04/23/21 Incision Right;Anterior Wrist (Active) Staff: Chair Car Attendant: Sal Tubbs RN Scrub Person: Christiano Reyes; Mendel Chavez LNA Patient Branch Manager: Sourav Garcia Indications: Lindsay Jean Baptiste is [...] for the entire procedure Stone Bansal MD [id number] signed by Sarah Monet PA-C at 04/27/2021 [...] and using bedside commode. NWB on RUE. FACILITIES OPERATOR Ketamin infusing. Going to NPO after midnight for I&D with potential wound closure tomorrow. C/o pain 6-8/10 on RUE. Reported ear ringing this morning. MD aware. Stop ketamine drip for 1 hr per MD order. Action: Administered medications as per ordered. Given PRN dilaudid, ibuprofen and scheduled tylenol,FACILITIES OPERATOR ketamine for pain. Hourly checks and monitor [...] she states a wound care clinic in [place] has been tending to her chronic wound [...] pillow routinely. Action: changed dressing, d/'d dilaudid digital intern, monitored pain control regularly. Response: pt removed dressing herself and is very well versed in how to care for wound. Replaced melgisorb AG and wrapped in kerlix. SONYA LIVINGSTON RN 04/25/2021 14:29 lan of Care - Mario Curry RN - 04/25/2021 0626 EST Problem: Daily Care Plan Goals Goal: Care Plan Documentation Outcome: Ongoing Data: Pt is A/Ox3, able to make needs known. Pt has had R-sided BKA, contact guard assist OOB to commode. R forearm splint in place. Pt reports consistent 6/10 pain to RUE- continuous Ketamine drip @ 1.5 mL/hr and Dilaudid FACILITIES OPERATOR in place. 3x R-sided IJ in place, continuous LR running @ 75 mL/hr. Pt NPO at midnight pending surgery on RUE today. Pt denies chest pain, SOB, N/V, or headache at this time. Action: Assessment complete, medicated per MAR- new Dilaudid and Ketamine syringes, rates [id number]. Hourly rounding complete, clustered care to promote [...] continuous Ketamine infusions as well as Dilaudid FACILITIES OPERATOR through right CVC. Continues on IV antibiotic therapy with tolerance. Voided large amount of clear odorless urine at 0245 without difficulty. Complaints of 6/10 discomfort. Action: Medications administered as ordered, see MAR. Care clustered to promote sleep and comfort. Response: In bed with eyes closed. CATRACHITA BARNETT RN 04/24/2021 3:23 harmacy Note - Alethea Pacheco RP - 04/24/2021 0307 EST Pharmacy Note: Vancomycin [...] Surgeon: Stone Bansal MD, Sourav Bolden MD Garnishment Specialist: Kyle Caballero MD Anesthesia Type: General Tourniquet [...] the results section. BASIC METABOLIC PANEL Routine 04/30/2021 5:42 Res [...] are in AEROBES), OTHER the results section. HEPATITIS A ANTIBODY Today 04/27/2021 5:30 Resu lts for this IGM EST procedure are i n the results section. HEPATITIS A TOTAL Routine 04/27/2021 5:30 Results for this ANTIBODY W REFLEX EST procedure are in the results section. HEPATITIS B CORE Routine 04/27/2021 5:30 Results for this ANTIBODY (TOTAL) EST procedure a re in the results section. HEPATITIS B SURFACE Routine 04/27/2021 5:30 Resul ts for this ANTIBODY EST procedure are i n the results section. HEPATITIS B SURFACE Routine 04/27/2021 5:30 Resul ts for this ANTIGEN EST procedure are i n the results section. COMPLETE BLOOD COUNT Routine 04/27/2021 5:30 Resu lts for this AND DIFFERENTIAL EST procedure a re in the results section. HIV 1/2 ANTIGEN AND Routine 04/27/2021 5:30 Resul ts for this ANTIBODY, 4TH EST procedure are in GENERATION the results section. BASIC METABOLIC PANEL Routine 04/27/2021 5:30 Res ults for this (BMP) EST procedure are i n the results section. COVID-19 TEST [facility] Today 04/26/2021 11:20 LAB PCR EST COVID-19 TESTING Routine 04/26/2021 11:20 Results for this EST procedure are i n the results section. BASIC METABOLIC PANEL Routine 04/26/2021 6:19 Res ults for this (BMP) EST procedure are i n the results section. COMPLETE BLOOD COUNT Routine 04/26/2021 6:18 Resu lts for this AND DIFFERENTIAL EST procedure a re in the results section. COMPLETE BLOOD COUNT Routine 04/25/2021 6:16 Resu lts for this AND DIFFERENTIAL EST procedure a re in the results section. BASIC METABOLIC PANEL Routine 04/25/2021 6:15 Res ults for this (BMP) EST procedure are i n the results section. COMPLETE BLOOD COUNT Routine 04/24/2021 6:14 Resu lts for this AND DIFFERENTIAL EST procedure a re in the results section. BASIC METABOLIC PANEL Routine 04/24/2021 6:13 Res ults for this (BMP) EST procedure are i n the results section. VANCOMYCIN TROUGH Timed 04/24/2021 0:27 Results for this EST procedure are i n the results section. ANAEROBE Routine 04/23/2021 19:53 Results for this CULTURE/SMEAR(INC. EST procedure are in AEROBES), OTHER the results section. TEST, URINE STAT 04/23/2021 18:31 Re sults for this EST procedure are i n the results section. COMPREHENSIVE Routine 04/23/2021 9:20 Results for this METABOLIC PANEL (CMP) EST proced ure are in the results section. COMPLETE BLOOD COUNT Routine 04/23/2021 6:50 Resu lts for this AND DIFFERENTIAL EST procedure a re in the results section. MAGNESIUM Add-On 04/23/2021 6:50 Results for this EST procedure are i n the results section. BASIC METABOLIC PANEL Routine 04/23/2021 6:50 Res ults for this (BMP) EST procedure are i n the results section. COVID-19 TEST [facility] Today 04/23/2021 2:53 LAB PCR EST COVID-19 TESTING Routine 04/23/2021 2:53 Results for this EST procedure are i n the results section. CK STAT 04/23/2021 1:57 Results for this EST procedure are i n the results section. XR WRIST RIGHT 3 OR STAT 04/22/2021 18:58 Resu lts for this MORE VIEWS EST procedure are i n the results section. XR FOOT LEFT 3 OR MORE STAT 04/22/2021 18:57 R esults for this VIEWS EST procedure are i n the results section. XR FOREARM RIGHT 2 STAT 04/22/2021 18:56 Resul ts for this VIEWS EST procedure are i n the results section. XR HAND RIGHT 3 OR STAT 04/22/2021 18:55 Resul ts for this MORE VIEWS EST procedure are i n the results section. LACTIC ACID STAT 04/22/2021 16:39 Results for this EST procedure are i n the results section. COMPLETE BLOOD COUNT STAT 04/22/2021 16:39 Res ults for this AND DIFFERENTIAL EST procedure a re in the results section. BASIC METABOLIC PANEL STAT 04/22/2021 16:39 Re sults for this (BMP) EST procedure are i n the results section. CT OUTSIDE IMAGES MSK Routine 04/22/2021 13:22 Re sults for this EST procedure are i n the results section. documented in this encounter Results (ABNORMAL) DIFFERENTIAL MANUAL (05/04/2021 5:52 EST) Neutrophils 57.0 % [facility] Lymphocytes 31.0 % [facility] Atypical Lymphocytes 3.0 % [facility] Monocytes 6.0 % [facility] Eosinophils 3.0 % [facility] Absolute Neutrophils 1.11 (L) 2.20 - 8.85 [facility] K/[facility] LABORATORY SERVICES Absolute Lymphocytes 0.60 (L) 1.09 - 3.30 [facility] K/[facility] LABORATORY SERVICES Absolute Atypical 0.06 K/[facility] Lymphocytes LABORATORY SERVICES Absolute Monocytes 0.12 0.10 - 0.80 [facility] K/[facility]ORATORY SERVICES Absolute Eosinophils 0.06 0.03 - 0.61 [facility] K/[facility] LABORATORY SERVICES Specimen Blood - Venous blood (substance) Performing Organization Address City/State/ZIP Code Phon e Number [facility] [address] [place] [address] SERVICES (ABNORMAL) COMPLETE BLOOD COUNT AND DIFFERENTIAL (05/04/2021 5:52 EST) Pathologist Sig nature WBC 1.95 (L) 4.00 - 12.40 [facility] K/[facility] LABORATORY SERVICES RBC 3.29 (L) 3.86 - 5.04 [facility] M/cm LABORATORY SERVICES Hemoglobin 8.9 (L) 11.6 - 15.2 [facility] gm/dL LABORATORY SERVICES HCT 29.1 (L) 34.9 - 44.4 % [facility] MCV 88 81 - 98 fl [facility] MCH 27.1 26.7 - 33.3 pg [facility] MCHC 30.6 (L) 32.1 - 35.9 [facility] gm/dL LABORATORY SERVICES RDW-CV 12.7 <14.7 % [facility] RDW-SD 41.6 <50.4 fl [facility] PLT 218 141 - 377 K/m [facility] MPV 10.6 9.5 - 12.7 fl [facility] Type of Manual [facility] Differential: LABORATORY SERVICES Specimen Blood - Venous blood (substance) Performing Organization Address City/[facility]/ZIP Code Phon e Number [facility] [address] [place] [address] SERVICES BASIC METABOLIC PANEL (BMP) (05/04/2021 5:51 EST) Pathologist Sig [facility] Sodium 137 136 - 145 mmol/L [facility] Potassium 4.2 3.5 - 5.0 mmol/L [facility] Chloride 99 96 - 110 mmol/L [facility] CO2 Total 29 22 - 32 mmol/L [facility] Anion Gap 9 8 - 16 [facility] Glucose 97 70 - 100 mg/dL [facility] Calcium 8.5 8.5 - 10.5 mg/dL [facility] BUN 17 10 - 26 mg/dL [facility] Creatinine 0.59 0.52 - 1.04 mg/dL [facility] eGFR 117 >60 mL/min/1.73m2 [facility] Specimen Blood - Venous blood (substance) Performing Organization Address [facility]/ZIP [facility] Phon e Number [facility] [address] [place] [address] SERVICES TRANSTHORACIC ECHO (TTE) COMPLETE W/DOPPLER W/CF [...] of endocarditis was seen. Performing Organization Address City/State/ZIP Code Phon e Number [facility] POINT OF CARE CRYOGLOBULIN, SERUM (05/03/2021 6:14 EST) Cryoglobulin, S Negative Negative %ppt [facility] Comment: LABORATORIES This test is negative at 24 hours. All samples are hel d and reviewed again at 7 days. If delayed precipitation occ urs after 7 days, Immunofixation will be performed and an additional report will follow. Test Performed by: [facility] [address] [place] [address] Shampoo Assistant: Jake Cordova M.D. Ph.D.; CLIA# [id number] Specimen Blood - Venous blood (substance) Performing Organization Address [facility]/ZIP [facility] Phon e Number [facility] [address] [place] [address] HOLD RED TOP (05/03/2021 5:43 EST) Pathologist Sig nature Hold Hold [facility] Specimen Blood - Venous blood (substance) Performing Organization Address [facility] Phon e Number [facility] [address] [place] [address] SERVICES HOLD RED TOP (05/03/2021 5:42 EST) Pathologist Sig nature Hold Hold [facility] SERVICES Specimen Blood - Venous blood (substance) Performing Organization Address [facility] Phon e Number [facility] [address] [place] [address] SERVICES (ABNORMAL) BASIC METABOLIC PANEL (BMP) (05/03/2021 5:25 EST) Pathologist Sig nature Sodium 137 136 - 145 mmol/L [facility] Potassium 4.2 3.5 - 5.0 mmol/L [facility] Chloride 98 96 - 110 mmol/L [facility] CO2 Total 29 22 - 32 mmol/L [facility] Anion Gap 10 8 - 16 [facility] Glucose 111 (H) 70 - 100 mg/dL [facility] Calcium 9.0 8.5 - 10.5 mg/dL [facility] BUN 21 10 - 26 mg/dL [facility] Creatinine 0.69 0.52 - 1.04 mg/dL [facility] eGFR 111 >60 mL/min/1.73m2 [facility] Specimen Blood - Venous blood (substance) Performing Organization Address [facility] Phon e Number [facility] [address] [place] [address] SERVICES (ABNORMAL) COMPLETE BLOOD COUNT AND DIFFERENTIAL (05/03/2021 5:24 EST) WBC 2.37 (L) 4.00 - 12.40 [facility] LABORATORY SERVICES RBC 3.41 (L) 3.86 - 5.04 [facility] LABORATORY SERVICES Hemoglobin 9.7 (L) 11.6 - 15.2 [facility] gm/dL LABORATORY SERVICES HCT 29.4 (L) 34.9 - 44.4 % [facility] MCV 86 81 - 98 fl [facility] MCH 28.4 26.7 - 33.3 pg [facility] MCHC 33.0 32.1 - 35.9 [facility] gm/dL LABORATORY SERVICES RDW-CV 13.0 <14.7 % [facility] RDW-SD 40.5 <50.4 fl [facility] PLT 236 141 - 377 [facility] LABORATORY SERVICES MPV 10.9 9.5 - 12.7 fl [facility] Neutrophils 63.7 % [facility] Lymphocytes 20.7 % [facility] Monocytes 12.7 % [facility] Eosinophils 0.8 % [facility] Basophils 0.8 % [facility] Immature Grans 1.3 % [facility] Absolute Neutrophils 1.51 (L) 2.20 - 8.85 [facility] LABORATORY SERVICES Absolute Lymphocytes 0.49 (L) 1.09 - 3.30 [facility] LABORATORY SERVICES Absolute Monocytes 0.30 0.10 - 0.80 [facility]ATORY SERVICES Absolute Eosinophils 0.02 (L) 0.03 - 0.61 [facility]ORATORY SERVICES Absolute Basophils 0.02 0.01 - 0.11 [facility] LABORATORY SERVICES Absolute Immature 0.03 0.00 - 0.06 [facility] LABORATORY SERVICES Type of Differential: Auto [facility] Specimen Blood - Venous blood (substance) Performing Organization Address City/State/ZIP Code Phon e Number [facility] [address] [place] [address] SERVICES BACTERIAL CULTURE, BLOOD (05/02/2021 16:26 EST) Pathologist Sig nature Organism ID No Growth at 5 days [facility] Specimen Blood - Venous blood (substance) Performing Organization Address City/[facility]/ZIP Code Phon e Number [facility] [address] [place] [address] SERVICES BACTERIAL CULTURE, BLOOD (05/02/2021 16:26 EST) Pathologist Sig nature Organism ID No Growth at 5 days [facility] Specimen Blood - Venous blood (substance) Performing Organization Address City/[facility]/ZIP Code Phon e Number [facility] [address] [place] [address] SERVICES FERRITIN (05/02/2021 6:05 EST) Pathologist Sig nature Ferritin 61 10 - 291 ng/mL [facility] LAB[facility]AT ORY SERVICES Specimen Blood - Venous blood (substance) Performing Organization Address [facility]/ZIP Code Phon e Number [facility] [address] [place] [address] SERVICES IBC (05/02/2021 6:05 EST) Pathologist Sig nature Iron Binding 320 265 - 497 ??g/dL [facility] [employer] LABORATORY SERVICES Specimen Blood - Venous blood (substance) Performing Organization Address City/[facility]/ZIP Code Phon e Number [facility] [address] [place] [phone] SERVICES IRON (05/02/2021 6:05 EST) Pathologist Sig nature Iron 39 37 - 170 ??g/dL [facility] SERVICES Specimen Blood - Venous blood (substance) Performing Organization Address [facility]/ZIP Code Phon e Number [facility] [address] [place] [address] SERVICES (ABNORMAL) BASIC METABOLIC PANEL (BMP) (05/02/2021 6:05 EST) Pathologist Sig nature Sodium 135 (L) 136 - 145 mmol/L [facility] Potassium 4.0 3.5 - 5.0 mmol/L [facility] Chloride 98 96 - 110 mmol/L [facility] CO2 Total 29 22 - 32 mmol/L [facility] Anion Gap 8 8 - 16 [facility] Glucose 93 70 - 100 mg/dL [facility] Calcium 8.9 8.5 - 10.5 mg/dL [facility] BUN 19 10 - 26 mg/dL [facility] Creatinine 0.64 0.52 - 1.04 mg/dL [facility] eGFR 114 >60 mL/min/1.73m2 [facility] Specimen Blood - Venous blood (substance) Performing Organization Address City/State/ZIP Code Phon e Number [facility] [address] [place] [address] SERVICES (ABNORMAL) COMPLETE BLOOD COUNT AND DIFFERENTIAL (05/02/2021 6:05 EST) WBC 4.30 4.00 - 12.40 [facility] LABORATORY SERVICES RBC 3.24 (L) 3.86 - 5.04 [facility] LABORATORY SERVICES Hemoglobin 8.9 (L) 11.6 - 15.2 [facility] gm/dL LABORATORY SERVICES HCT 29.2 (L) 34.9 - 44.4 % [facility] MCV 90 81 - 98 fl [facility] MCH 27.5 26.7 - 33.3 pg [facility] MCHC 30.5 (L) 32.1 - 35.9 [facility] gm/dL LABORATORY SERVICES RDW-CV 12.7 <14.7 % [facility] RDW-SD 41.8 <50.4 fl [facility] PLT 220 141 - 377 K/[facility] LABORATORY SERVICES MPV 10.4 9.5 - 12.7 fl [facility] Neutrophils 76.9 % [facility] Lymphocytes 9.8 % [facility] Monocytes 10.0 % [facility] Eosinophils 1.2 % [facility] Basophils 0.7 % [facility] Immature Grans 1.4 % [facility] Absolute Neutrophils 3.31 2.20 - 8.85 [facility]ATORY SERVICES Absolute Lymphocytes 0.42 (L) 1.09 - 3.30 [facility] SERVICES Absolute Monocytes 0.43 0.10 - 0.80 [facility] SERVICES Absolute Eosinophils 0.05 0.03 - 0.61 [facility]AT[facility] SERVICES Absolute Basophils 0.03 0.01 - 0.11 [facility] K/cm LABORATORY SERVICES Absolute Immature 0.06 0.00 - 0.06 [facility] Grans K/[facility] LABORATORY SERVICES Type of Differential: Auto [facility] Specimen Blood - Venous blood (substance) Performing Organization Address [facility]/ZIP [facility] Phon e Number [facility] [address] [place] [address] SERVICES (ABNORMAL) BASIC METABOLIC PANEL (BMP) (05/01/2021 5:32 EST) Pathologist Sig nature Sodium 137 136 - 145 mmol/L [facility] Potassium 4.8 3.5 - 5.0 mmol/L [facility] Chloride 98 96 - 110 mmol/L [facility] CO2 Total 29 22 - 32 mmol/L [facility] LABORATORY SERVICES Anion Gap 10 8 - 16 [facility] LABORATORY SERVICES Glucose 100 70 - 100 mg/dL [facility]OR[facility] SERVICES Calcium 9.1 8.5 - 10.5 mg/dL [facility] LABOR[facility]ORY SERVICES BUN 28 (H) 10 - 26 mg/dL [facility]OR[facility] SERVICES Creatinine 0.72 0.52 - 1.04 mg/dL [facility] LABORATORY SERVICES eGFR 107 >60 mL/min/1.73m2 [facility] LABORATORY SERVICES Specimen Blood - Venous blood (substance) Performing Organization Address [facility]/ZIP [facility] Phon e Number [facility] LABORATORY [address] [place] [address] SERVICES (ABNORMAL) COMPLETE BLOOD COUNT AND DIFFERENTIAL (05/01/2021 5:32 EST) WBC 6.24 4.00 - 12.40 [facility] K/cmm LABORATORY SERVICES RBC 3.36 (L) 3.86 - 5.04 [facility] M/[facility] LABORATORY SERVICES Hemoglobin 9.6 (L) 11.6 - 15.2 [facility] gm/dL LABORATORY SERVICES HCT 29.5 (L) 34.9 - 44.4 % [facility] LABORATORY SERVICES MCV 88 81 - 98 fl [facility] LABORATORY SERVICES MCH 28.6 26.7 - 33.3 pg [facility] LABORATORY SERVICES MCHC 32.5 32.1 - 35.9 [facility] gm/dL LABORATORY SERVICES RDW-CV 12.9 <14.7 % [facility] LABORATORY SERVICES RDW-SD 41.1 <50.4 fl [facility] LABORATORY SERVICES PLT 351 141 - 377 K/[facility] LABORATORY SERVICES MPV 9.8 9.5 - 12.7 fl [facility] LABORATORY SERVICES Neutrophils 74.3 % [facility]OR[facility] SERVICES Lymphocytes 12.7 % [facility]OR[facility]ORY SERVICES Monocytes 7.7 % [facility]OR[facility]ORY SERVICES Eosinophils 2.6 % [facility] SERVICES Basophils 0.8 % [facility] LABORATORY SERVICES Immature Grans 1.9 % [facility] LABORATORY SERVICES Absolute Neutrophils 4.64 2.20 - 8.85 [facility] LABORATORY SERVICES Absolute Lymphocytes 0.79 (L) 1.09 - 3.30 [facility] LABORATORY SERVICES Absolute Monocytes 0.48 0.10 - 0.80 [facility] LABORATORY SERVICES Absolute Eosinophils 0.16 0.03 - 0.61 [facility] LABORATORY SERVICES Absolute Basophils 0.05 0.01 - 0.11 [facility] LABORATORY SERVICES Absolute Immature 0.12 (H) 0.00 - 0.06 [facility] LABORATORY SERVICES Type of Differential: Auto [facility] LABORATORY SERVICES Specimen Blood - Venous blood (substance) Performing Organization Address City/State/ZIP Code Phon e Number [facility]OR[facility]ORY [address] [place] [address] SERVICES BASIC METABOLIC PANEL (BMP) (04/30/2021 5:42 EST) Pathologist Sig nature Sodium 138 136 - 145 mmol/L [facility] LABORATORY SERVICES Potassium 4.8 3.5 - 5.0 mmol/L [facility] LABORATORY SERVICES Chloride 98 96 - 110 mmol/L [facility] LABORATORY SERVICES CO2 Total 29 22 - 32 mmol/L [facility] LABORATORY SERVICES Anion Gap 11 8 - 16 [facility] LABORATORY SERVICES Glucose 99 70 - 100 mg/dL [facility] LABORATORY SERVICES Calcium 9.4 8.5 - 10.5 mg/dL [facility] LABORATORY SERVICES BUN 24 10 - 26 mg/dL [facility] LABORATORY SERVICES Creatinine 0.69 0.52 - 1.04 mg/dL [facility] LABORATORY SERVICES eGFR 111 >60 mL/min/1.73m2 [facility] LABORATORY SERVICES Specimen Blood - Venous blood (substance) Performing Organization Address City/State/ZIP Code Phon e Number [facility]OR[facility] [address] [place] [address] SERVICES (ABNORMAL) COMPLETE BLOOD COUNT AND DIFFERENTIAL (04/30/2021 5:41 EST) WBC 7.18 4.00 - 12.40 [facility] LABORATORY SERVICES RBC 3.65 (L) 3.86 - 5.04 [facility] LABORATORY SERVICES Hemoglobin 10.1 (L) 11.6 - 15.2 [facility] gm/dL LABORATORY SERVICES HCT 32.9 (L) 34.9 - 44.4 % [facility] LABORATORY SERVICES MCV 90 81 - 98 fl [facility] LABORATORY SERVICES MCH 27.7 26.7 - 33.3 pg [facility] LABORATORY SERVICES MCHC 30.7 (L) 32.1 - 35.9 [facility] gm/dL LABORATORY SERVICES RDW-CV 13.0 <14.7 % [facility] LABORATORY SERVICES RDW-SD 42.9 <50.4 fl [facility] LABORATORY SERVICES PLT 359 141 - 377 /[facility] LABORATORY SERVICES MPV 9.9 9.5 - 12.7 fl [facility] LABORATORY SERVICES Neutrophils 64.6 % [facility] LABORATORY SERVICES Lymphocytes 19.5 % [facility] LABORATORY SERVICES Monocytes 8.1 % [facility] LABORATORY SERVICES Eosinophils 2.9 % [facility] LABORATORY SERVICES Basophils 0.7 % [facility] LABORATORY SERVICES Immature Grans 4.2 % [facility] LABORATORY SERVICES Absolute Neutrophils 4.64 2.20 - 8.85 [facility] LABORATORY SERVICES Absolute Lymphocytes 1.40 1.09 - 3.30 [facility] LABORATORY SERVICES Absolute Monocytes 0.58 0.10 - 0.80 [facility] LABORATORY SERVICES Absolute Eosinophils 0.21 0.03 - 0.61 [facility] LABORATORY SERVICES Absolute Basophils 0.05 0.01 - 0.11 [facility] LABORATORY SERVICES Absolute Immature 0.30 (H) 0.00 - 0.06 [facility] LABORATORY SERVICES Type of Differential: Auto [facility] LABORATORY SERVICES Specimen Blood - Blood sample taken from central line (situation) Performing Organization Address [facility] Phon e Number [facility]ORATORY [address] [place] [address] SERVICES COVID-19 TEST [facility] LAB PCR (04/29/2021 15:26 EST) Specimen Swab - Entire nasopharynx (body structur e) Performing Organization Address [facility] Phon e Number [facility]OR[facility] [address] [place] [address] SERVICES COVID-19 TESTING (04/29/2021 15:26 EST) COVID-19 rt-PCR Negative Negative [facility] Result Comment: [facility] LABORATORY This test [...] and epidemiological informatio n. Performed on the Budgeher Fusion instrument Performing Lab Lerna [facility] Lab [facility] LABORATORY SERVICES Specimen Swab - Entire nasopharynx (body structur e) Performing Organization Address [facility] Phon e Number [facility]OR[facility] [address] [place] [address] SERVICES BASIC METABOLIC PANEL (BMP) (04/29/2021 5:38 EST) Pathologist Sig nature Sodium 137 136 - 145 mmol/L [facility] LABORATORY SERVICES Potassium 4.7 3.5 - 5.0 mmol/L [facility] LABORATORY SERVICES Chloride 99 96 - 110 mmol/L [facility] LABORAT[facility] SERVICES CO2 Total 29 22 - 32 mmol/L [facility] LABORATORY SERVICES Anion Gap 9 8 - 16 [facility] LABORATORY SERVICES Glucose 99 70 - 100 mg/dL [facility] LABORATORY SERVICES Calcium 9.3 8.5 - 10.5 mg/dL [facility] LABORATORY SERVICES BUN 18 10 - 26 mg/dL [facility] LABORATORY SERVICES Creatinine 0.60 0.52 - 1.04 mg/dL [facility] LABORATORY SERVICES eGFR 116 >60 mL/min/1.73m2 [facility] LABORATORY SERVICES Specimen Blood - Venous blood (substance) Performing Organization Address City/State/ZIP Code Phon e Number [facility]OR[facility] [address] [place] [address] SERVICES (ABNORMAL) COMPLETE BLOOD COUNT AND DIFFERENTIAL (04/29/2021 5:38 EST) WBC 10.20 4.00 - 12.40 [facility] LABORATORY SERVICES RBC 3.45 (L) 3.86 - 5.04 [facility] LABORATORY SERVICES Hemoglobin 9.8 (L) 11.6 - 15.2 [facility] gm/dL LABORATORY SERVICES HCT 30.2 (L) 34.9 - 44.4 % [facility] LABORATORY SERVICES MCV 88 81 - 98 fl [facility] LABORATORY SERVICES MCH 28.4 26.7 - 33.3 pg [facility] LABORATORY SERVICES MCHC 32.5 32.1 - 35.9 [facility] gm/dL LABORATORY SERVICES RDW-CV 13.1 <14.7 % [facility] LABORATORY SERVICES RDW-SD 41.3 <50.4 fl [facility] LABORATORY SERVICES PLT 312 141 - 377 /[facility] LABORATORY SERVICES MPV 9.9 9.5 - 12.7 fl [facility] LABORATORY SERVICES Neutrophils 74.9 % [facility] LABORATORY SERVICES Lymphocytes 12.2 % [facility] LABORATORY SERVICES Monocytes 7.5 % [facility] LABORATORY SERVICES Eosinophils 2.8 % [facility] LABORATORY SERVICES Basophils 0.5 % [facility] LABORATORY SERVICES Immature Grans 2.1 % [facility] LABORATORY SERVICES Absolute Neutrophils 7.64 2.20 - 8.85 [facility] LABORATORY SERVICES Absolute Lymphocytes 1.24 1.09 - 3.30 [facility] LABORATORY SERVICES Absolute Monocytes 0.77 0.10 - 0.80 [facility] K/[facility] LABORATORY SERVICES Absolute Eosinophils 0.29 0.03 - 0.61 [facility] K/[facility] LABORATORY SERVICES Absolute Basophils 0.05 0.01 - 0.11 [facility] K/[facility] LABORATORY SERVICES Absolute Immature 0.21 (H) 0.00 - 0.06 [facility] LABORATORY SERVICES Type of Differential: Auto [facility] LABORATORY SERVICES Specimen Blood - Venous blood (substance) Performing Organization Address City/[facility] Phon e Number [facility]OR[facility] [address] [place] [address] SERVICES BASIC METABOLIC PANEL (BMP) (04/28/2021 7:43 EST) Pathologist Sig nature Sodium 139 136 - 145 mmol/L [facility] LABORATORY SERVICES Potassium 4.6 3.5 - 5.0 mmol/L [facility] LABORATORY SERVICES Chloride 99 96 - 110 mmol/L [facility] LABORATORY SERVICES CO2 Total 28 22 - 32 mmol/L [facility] LABORATORY SERVICES Anion Gap 12 8 - 16 [facility] LABORATORY SERVICES Glucose 99 70 - 100 mg/dL [facility] LABORATORY SERVICES Calcium 8.9 8.5 - 10.5 mg/dL [facility] LABORATORY SERVICES BUN 14 10 - 26 mg/dL [facility] LABORATORY SERVICES Creatinine 0.66 0.52 - 1.04 mg/dL [facility] LABORATORY SERVICES eGFR 112 >60 mL/min/1.73m2 [facility] LABORATORY SERVICES Specimen Blood - Venous blood (substance) Performing Organization Address [facility] Phon e Number [facility]OR[facility] [address] [place] [address] SERVICES (ABNORMAL) COMPLETE BLOOD COUNT AND DIFFERENTIAL (04/28/2021 7:03 EST) WBC 9.14 4.00 - 12.40 [facility] K/[facility] LABORATORY SERVICES RBC 3.41 (L) 3.86 - 5.04 [facility] M/[facility] LABORATORY SERVICES Hemoglobin 9.6 (L) 11.6 - 15.2 [facility] gm/dL LABORATORY SERVICES HCT 30.0 (L) 34.9 - 44.4 % [facility] LABORATORY SERVICES MCV 88 81 - 98 fl [facility] LABORATORY SERVICES MCH 28.2 26.7 - 33.3 pg [facility] LABORATORY SERVICES MCHC 32.0 (L) 32.1 - 35.9 [facility] gm/dL LABORATORY SERVICES RDW-CV 13.2 <14.7 % [facility] LABORATORY SERVICES RDW-SD 42.4 <50.4 fl [facility] LABORATORY SERVICES PLT 292 141 - 377 K/m [facility] LABORATORY SERVICES MPV 10.2 9.5 - 12.7 fl [facility] LABORATORY SERVICES Neutrophils 71.1 % [facility] LABORATORY SERVICES Lymphocytes 13.2 % [facility] LABORATORY SERVICES Monocytes 9.4 % [facility] LABORATORY SERVICES Eosinophils 3.1 % [facility] LABORATORY SERVICES Basophils 0.7 % [facility] LABORATORY SERVICES Immature Grans 2.5 % [facility] LABORATORY SERVICES Absolute Neutrophils 6.50 2.20 - 8.85 [facility] LABORATORY SERVICES Absolute Lymphocytes 1.21 1.09 - 3.30 [facility] LABORATORY SERVICES Absolute Monocytes 0.86 (H) 0.10 - 0.80 [facility] LABORATORY SERVICES Absolute Eosinophils 0.28 0.03 - 0.61 [facility] LABORATORY SERVICES Absolute Basophils 0.06 0.01 - 0.11 [facility] LABORATORY SERVICES Absolute Immature 0.23 (H) 0.00 - 0.06 [facility] LABORATORY SERVICES Type of Differential: Auto [facility] LABORATORY SERVICES Specimen Blood - Blood sample taken from central line (situation) Performing Organization Address City/State/ZIP Code Phon e Number [facility] LABORATORY [address] [place] [address] SERVICES EKG 12-LEAD (04/27/2021 13:19 EST) Specimen Narrative [facility] EKG - 04/28/2021 16:1 0 EST ? [facility] ? Test Date: ?2021-04-27 Pat Name: ? LINDSAY JEAN BAPTISTE ?Department: ?? Pacu ? Room: ? OR Gender: ? Female ? 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 [id number] : ?1980 ? Requested By: SOBIA PATTON L Order Number: [id number] ? Reading MD: ?? DENIS ROSARIO MD ? Measurements Intervals ?[place] ? Rate: ? 75 ? P: ?39 MI: ? 150 ?QRS: ?9 QRSD: ? 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 Performing Organization Address [facility]/ZIP Code Phon e Number [facility] EKG (ABNORMAL) ANAEROBE CULTURE/SMEAR(INC. AEROBES), OTHER (04/27/2021 9:38 EST) Organism ID Rare Streptococcus [facility] dysgalactiae LABORATORY SERVICES (A)Comment: Penicillin and ampicillin are drugs of choice for treatment of beta hemolytic streptococcal infections. Smear No Neutrophils Seen [facility] LABORATORY SERVICES Smear No bacteria seen [facility] LABORATORY SERVICES Specimen Tissue - Soft tissue (navigational christina pt) Performing Organization Address City/[facility]/ZIP Code Phon e Number [facility] LABORAT[facility] [address] [place] [address] SERVICES HEPATITIS A ANTIBODY IGM (04/27/2021 5:30 EST) Pathologist Sig nature Hepatitis A Antibody, Negative Negative [facility] IgM LABORATORY SERVICES Specimen Blood - Venous blood (substance) Narrative [facility] LABORATORY SERVICES - 04/27/2021 11:27 EST The results of this assay can be falsely lowered due to the consumption of Biotin. Performing Organization Address [facility] Code Phon e Number [facility]ORAT[facility] [address] [place] [id number] SERVICES (ABNORMAL) BASIC METABOLIC PANEL (BMP) (04/27/2021 5:30 EST) Pathologist Sig nature Sodium 138 136 - 145 mmol/L [facility] LABORATORY SERVICES Potassium 4.3 3.5 - 5.0 mmol/L [facility] LABORATORY SERVICES Chloride 100 96 - 110 mmol/L [facility] LABORATORY SERVICES CO2 Total 29 22 - 32 mmol/L [facility] LABORATORY SERVICES Anion Gap 9 8 - 16 [facility] LABORATORY SERVICES Glucose 104 (H) 70 - 100 mg/dL [facility] LABORATORY SERVICES Calcium 8.7 8.5 - 10.5 mg/dL [facility] LABORATORY SERVICES BUN 17 10 - 26 mg/dL [facility] LABORATORY SERVICES Creatinine 0.63 0.52 - 1.04 mg/dL [facility] LABORATORY SERVICES eGFR 114 >60 mL/min/1.73m2 [facility] LABORATORY SERVICES Specimen Blood - Venous blood (substance) Performing Organization Address [facility] Phon e Number [facility]OR[facility] [address] [place] [address] SERVICES (ABNORMAL) COMPLETE BLOOD COUNT AND DIFFERENTIAL (04/27/2021 5:30 EST) WBC 6.29 4.00 - 12.40 [facility] K/m LABORATORY SERVICES RBC 3.43 (L) 3.86 - 5.04 [facility] M/[facility] LABORATORY SERVICES Hemoglobin 9.5 (L) 11.6 - 15.2 [facility] gm/dL LABORATORY SERVICES HCT 30.3 (L) 34.9 - 44.4 % [facility] LABORATORY SERVICES MCV 88 81 - 98 fl [facility] LABORATORY SERVICES MCH 27.7 26.7 - 33.3 pg [facility] LABORATORY SERVICES MCHC 31.4 (L) 32.1 - 35.9 [facility] gm/dL LABORATORY SERVICES RDW-CV 13.2 <14.7 % [facility] LABORATORY SERVICES RDW-SD 42.5 <50.4 fl [facility] LABORATORY SERVICES PLT 257 141 - 377 K/m [facility] LABORATORY SERVICES MPV 10.2 9.5 - 12.7 fl [facility] LABORATORY SERVICES Neutrophils 64.4 % [facility] LABORATORY SERVICES Lymphocytes 18.3 % [facility] LABORATORY SERVICES Monocytes 8.7 % [facility] LABORATORY SERVICES Eosinophils 3.3 % [facility] LABORATORY SERVICES Basophils 0.8 % [facility] LABORATORY SERVICES Immature Grans 4.5 % [facility] LABORATORY SERVICES Absolute Neutrophils 4.05 2.20 - 8.85 [facility] LABORATORY SERVICES Absolute Lymphocytes 1.15 1.09 - 3.30 [facility] LABORATORY SERVICES Absolute Monocytes 0.55 0.10 - 0.80 [facility] LABORATORY SERVICES Absolute Eosinophils 0.21 0.03 - 0.61 [facility] LABORATORY SERVICES Absolute Basophils 0.05 0.01 - 0.11 [facility] LABORATORY SERVICES Absolute Immature 0.28 (H) 0.00 - 0.06 [facility] LABORATORY SERVICES Type of Differential: Auto [facility] LABORATORY SERVICES Specimen Blood - Venous blood (substance) Performing Organization Address [facility]/ZIP [facility] Phon e Number [facility]OR[facility] [address] [place] [address] SERVICES HEPATITIS B CORE ANTIBODY (TOTAL) (04/27/2021 5:30 EST) Pathologist Sig nature Hepatitis B Core Ab, Negative Negative [facility] Total LABORATORY SERVICES Specimen Blood - Venous blood (substance) Performing Organization Address City/[facility]/ZIP Code Phon e Number [facility] [address] [place] [address] SERVICES HEPATITIS B SURFACE ANTIGEN (04/27/2021 5:30 EST) Pathologist Sig nature Hep B Surface Ag Negative Negative [facility] LABORATORY SERVICES Specimen Blood - Venous blood (substance) Performing Organization Address [facility] Phon e Number [facility] [address] [place] [address] SERVICES HEPATITIS B SURFACE ANTIBODY (04/27/2021 5:30 EST) Hep B Surface Ab, >1000.0 See Note [facility] Quantitative Comment: mIU/mL [facility] Reference Range for Hep B Surface Ab, Quant: SERVICES Positive: >= 10.0 mIU/mL Negative: ??< 10.0 mIU/mL Patient is presumed to be immune to infection with Hep atitis B Virus. Hep B Surface Ab, Positive See Note [facility] Qualitative Comment: [facility] Reference Range for Hep B Surface Ab, Qual: SERVICES Unvaccinated: ??Negative Vaccinated: ??Positive Specimen Blood - Venous blood (substance) Performing Organization Address [facility]/ZIP Code Phon e Number [facility] [address] [place] [address] SERVICES (ABNORMAL) HEPATITIS A TOTAL ANTIBODY W REFLEX (04/27/2021 5:30 EST) Pathologist Sig nature Hepatitis A Positive (A) Negative [facility] Antibody, Total LABORATORY SERVICES Specimen Blood - Venous blood (substance) Narrative [facility] LABORATORY SERVICES - 04/27/2021 10:24 EST The result of this assay can be falsely elevated (Positive) due to the consumption of Biotin. Performing Organization Address [facility] Code Phon e Number [facility] [address] [place] [address] SERVICES HIV 1/2 ANTIGEN AND ANTIBODY, 4TH GENERATION (04/27/2021 5:30 EST) HIV 1 and 2 NegativeComment: If Negative [facility] Antibody/p24 acute HIV-1 LABORATORY Antigen, 4th infection is SERVICES Generation suspected in a high risk patient, submit plasma specimen for HIV-1 RNA quantitation test. Specimen Blood - Venous blood (substance) Narrative [facility] LABORATORY SERVICES - 04/27/2021 9:46 EST Fourth Generation assay performed on the Siemens Centaur XPT. Performing Organization Address [facility]/ZIP Code Phon e Number [facility] [address] [place] [address] SERVICES COVID-19 TEST [facility] LAB PCR (04/26/2021 11:20 EST) Specimen Swab - Entire nasopharynx (body structur e) Performing Organization Address [facility] Phon e Number [facility]OR[facility] [address] [place] [address] SERVICES COVID-19 TESTING (04/26/2021 11:20 EST) COVID-19 rt-PCR Negative Negative [facility] Result Comment: [facility] This test has not been FDA [...] and epidemiological informatio n. Performed on the Budgeher Fusion instrument Performing Lab Lerna [facility] Lab [facility] LABORATORY SERVICES Specimen Swab - Entire nasopharynx (body structur e) Performing Organization Address [facility] Phon e Number [facility] [address] [place] [address] SERVICES (ABNORMAL) BASIC METABOLIC PANEL (BMP) (04/26/2021 6:19 EST) Pathologist Sig nature Sodium 139 136 - 145 mmol/L [facility] LABORATORY SERVICES Potassium 4.0 3.5 - 5.0 mmol/L [facility] LABORATORY SERVICES Chloride 102 96 - 110 mmol/L [facility] LABORATORY SERVICES CO2 Total 32 22 - 32 mmol/L [facility] LABORATORY SERVICES Anion Gap 5 (L) 8 - 16 [facility] LABORATORY SERVICES Glucose 107 (H) 70 - 100 mg/dL [facility] LABORATORY SERVICES Calcium 8.6 8.5 - 10.5 mg/dL [facility] LABORATORY SERVICES BUN 16 10 - 26 mg/dL [facility] LABORATORY SERVICES Creatinine 0.67 0.52 - 1.04 mg/dL [facility] LABORATORY SERVICES eGFR 112 >60 mL/min/1.73m2 [facility] LABORATORY SERVICES Specimen Blood - Venous blood (substance) Performing Organization Address [facility] Phon e Number [facility] [address] [place] [address] SERVICES (ABNORMAL) COMPLETE BLOOD COUNT AND DIFFERENTIAL (04/26/2021 6:18 EST) WBC 7.22 4.00 - 12.40 [facility] LABORATORY SERVICES RBC 3.34 (L) 3.86 - 5.04 [facility] LABORATORY SERVICES Hemoglobin 9.4 (L) 11.6 - 15.2 [facility] gm/dL LABORATORY SERVICES HCT 28.9 (L) 34.9 - 44.4 % [facility] LABORATORY SERVICES MCV 87 81 - 98 fl [facility] LABORATORY SERVICES MCH 28.1 26.7 - 33.3 pg [facility] LABORATORY SERVICES MCHC 32.5 32.1 - 35.9 [facility] gm/dL LABORATORY SERVICES RDW-CV 13.1 <14.7 % [facility] LABORATORY SERVICES RDW-SD 41.1 <50.4 fl [facility] LABORATORY SERVICES PLT 233 141 - 377 K/[facility] LABORATORY SERVICES MPV 10.8 9.5 - 12.7 fl [facility] LABORATORY SERVICES Neutrophils 71.4 % [facility] LABORATORY SERVICES Lymphocytes 13.4 % [facility] LABORATORY SERVICES Monocytes 9.4 % [facility] LABORATORY SERVICES Eosinophils 3.3 % [facility] LABORATORY SERVICES Basophils 0.4 % [facility] LABORATORY SERVICES Immature Grans 2.1 % [facility] LABORATORY SERVICES Absolute Neutrophils 5.15 2.20 - 8.85 [facility] LABORATORY SERVICES Absolute Lymphocytes 0.97 (L) 1.09 - 3.30 [facility] LABORATORY SERVICES Absolute Monocytes 0.68 0.10 - 0.80 [facility] LABORATORY SERVICES Absolute Eosinophils 0.24 0.03 - 0.61 [facility] LABORATORY SERVICES Absolute Basophils 0.03 0.01 - 0.11 [facility] LABORATORY SERVICES Absolute Immature 0.15 (H) 0.00 - 0.06 [facility] LABORATORY SERVICES Type of Differential: Auto [facility] LABORATORY SERVICES Specimen Blood - Venous blood (substance) Performing Organization Address City/State/ZIP Code Phon e Number [facility] [address] [place] [address] SERVICES (ABNORMAL) COMPLETE BLOOD COUNT AND DIFFERENTIAL (04/25/2021 6:16 EST) WBC 8.07 4.00 - 12.40 [facility] LABORATORY SERVICES RBC 3.24 (L) 3.86 - 5.04 [facility] LABORATORY SERVICES Hemoglobin 9.3 (L) 11.6 - 15.2 [facility] gm/dL LABORATORY SERVICES HCT 28.6 (L) 34.9 - 44.4 % [facility] LABORATORY SERVICES MCV 88 81 - 98 fl [facility] LABORATORY SERVICES MCH 28.7 26.7 - 33.3 pg [facility] LABORATORY SERVICES MCHC 32.5 32.1 - 35.9 [facility] gm/dL LABORATORY SERVICES RDW-CV 13.1 <14.7 % [facility] LABORATORY SERVICES RDW-SD 42.5 <50.4 fl [facility] LABORATORY SERVICES PLT 201 141 - 377 [facility] LABORATORY SERVICES MPV 10.5 9.5 - 12.7 fl [facility] LABORATORY SERVICES Neutrophils 73.8 % [facility] LABORATORY SERVICES Lymphocytes 13.3 % [facility] LABORATORY SERVICES Monocytes 9.0 % [facility] LABORATORY SERVICES Eosinophils 2.4 % [facility] LABORATORY SERVICES Basophils 0.4 % [facility] LABORATORY SERVICES Immature Grans 1.1 % [facility] LABORATORY SERVICES Absolute Neutrophils 5.96 2.20 - 8.85 [facility] LABORATORY SERVICES Absolute Lymphocytes 1.07 (L) 1.09 - 3.30 [facility] LABORATORY SERVICES Absolute Monocytes 0.73 0.10 - 0.80 [facility] LABORATORY SERVICES Absolute Eosinophils 0.19 0.03 - 0.61 [facility] LABORATORY SERVICES Absolute Basophils 0.03 0.01 - 0.11 [facility] LABORATORY SERVICES Absolute Immature 0.09 (H) 0.00 - 0.06 [facility] LABORATORY SERVICES Type of Differential: Auto [facility] LABORATORY SERVICES Specimen Blood - Blood sample taken from central line (situation) Performing Organization Address City/State/ZIP Code Phon e Number [facility] LABORATORY [address] [place] [address] SERVICES (ABNORMAL) BASIC METABOLIC PANEL (BMP) (04/25/2021 6:15 EST) Pathologist Sig nature Sodium 139 136 - 145 mmol/L [facility] LABORATORY SERVICES Potassium 3.9 3.5 - 5.0 mmol/L [facility] LABORATORY SERVICES Chloride 103 96 - 110 mmol/L [facility] LABORATORY SERVICES CO2 Total 30 22 - 32 mmol/L [facility] LABORATORY SERVICES Anion Gap 6 (L) 8 - 16 [facility] LABORATORY SERVICES Glucose 103 (H) 70 - 100 mg/dL [facility] LABORATORY SERVICES Calcium 8.0 (L) 8.5 - 10.5 mg/dL [facility] LABORATORY SERVICES BUN 12 10 - 26 mg/dL [facility] LABORATORY SERVICES Creatinine 0.52 0.52 - 1.04 mg/dL [facility] LABORATORY SERVICES eGFR 122 >60 mL/min/1.73m2 [facility] LABORATORY SERVICES Specimen Blood - Venous blood (substance) Performing Organization Address City/State/ZIP Code Phon e Number [facility] LABORATORY [address] [place] [address] SERVICES (ABNORMAL) COMPLETE BLOOD COUNT AND DIFFERENTIAL (04/24/2021 6:14 EST) WBC 12.01 4.00 - 12.40 [facility] LABORATORY SERVICES RBC 3.30 (L) 3.86 - 5.04 [facility] LABORATORY SERVICES Hemoglobin 9.3 (L) 11.6 - 15.2 [facility] gm/dL LABORATORY SERVICES HCT 28.7 (L) 34.9 - 44.4 % [facility] LABORATORY SERVICES MCV 87 81 - 98 fl [facility] LABORATORY SERVICES MCH 28.2 26.7 - 33.3 pg [facility] LABORATORY SERVICES MCHC 32.4 32.1 - 35.9 [facility] gm/dL LABORATORY SERVICES RDW-CV 13.1 <14.7 % [facility] LABORATORY SERVICES RDW-SD 41.6 <50.4 fl [facility] LABORATORY SERVICES PLT 191 141 - 377 K/m [facility] LABORATORY SERVICES MPV 10.9 9.5 - 12.7 fl [facility] LABORATORY SERVICES Neutrophils 83.5 % [facility] LABORATORY SERVICES Lymphocytes 7.7 % [facility] LABORATORY SERVICES Monocytes 6.7 % [facility] LABORATORY SERVICES Eosinophils 1.1 % [facility] LABORATORY SERVICES Basophils 0.2 % [facility] LABORATORY SERVICES Immature Grans 0.8 % [facility] LABORATORY SERVICES Absolute Neutrophils 10.02 (H) 2.20 - 8.85 [facility] LABORATORY SERVICES Absolute Lymphocytes 0.93 (L) 1.09 - 3.30 [facility] LABORATORY SERVICES Absolute Monocytes 0.80 0.10 - 0.80 [facility] LABORATORY SERVICES Absolute Eosinophils 0.13 0.03 - 0.61 [facility] LABORATORY SERVICES Absolute Basophils 0.03 0.01 - 0.11 [facility] LABORATORY SERVICES Absolute Immature 0.10 (H) 0.00 - 0.06 [facility] LABORATORY SERVICES Type of Differential: Auto [facility] LABORATORY SERVICES Specimen Blood - Blood sample taken from central line (situation) Performing Organization Address [facility] Phon e Number [facility] LABORATORY [address] [place] [address] SERVICES (ABNORMAL) BASIC METABOLIC PANEL (BMP) (04/24/2021 6:13 EST) Pathologist Sig nature Sodium 138 136 - 145 mmol/L [facility] LABORATORY SERVICES Potassium 3.3 (L) 3.5 - 5.0 mmol/L [facility] LABORATORY SERVICES Chloride 104 96 - 110 mmol/L [facility] LABORATORY SERVICES CO2 Total 28 22 - 32 mmol/L [facility] LABORATORY SERVICES Anion Gap 6 (L) 8 - 16 [facility] LABORATORY SERVICES Glucose 142 (H) 70 - 100 mg/dL [facility] LABORATORY SERVICES Calcium 8.0 (L) 8.5 - 10.5 mg/dL [facility] LABORATORY SERVICES BUN 8 (L) 10 - 26 mg/dL [facility] LABORATORY SERVICES Creatinine 0.55 0.52 - 1.04 mg/dL [facility] LABORATORY SERVICES eGFR 119 >60 mL/min/1.73m2 [facility] LABORATORY SERVICES Specimen Blood - Venous blood (substance) Performing Organization Address [facility] Phon e Number [facility] LABORATORY [address] [place] [address] SERVICES (ABNORMAL) VANCOMYCIN TROUGH (04/24/2021 0:27 EST) Vancomycin Trough 4.8 (L) 10.0 - 20.0 [facility] ??g/mL LABORATORY SERVICES Draw Type Central Line [facility] Draw LABORATORY SERVICES Specimen Blood - Venous blood (substance) Performing Organization Address [facility] Phon e Number [facility] LABORATORY [address] [place] [address] SERVICES (ABNORMAL) ANAEROBE CULTURE/SMEAR(INC. AEROBES), OTHER (04/23/2021 19:53 EST) Organism ID Few Streptococcus [facility] dysgalactiae LABORATORY SERVICES (A)Comment: Penicillin and ampicillin are drugs of choice for treatment of beta hemolytic streptococcal infections. Smear Many Neutrophils [facility] Present (A) LABORATORY SERVICES Smear Few Gram Positive Cocci [facility] R (A) LABORATORY SERVICES Specimen Fluid - Soft tissue (navigational concep t) Performing Organization Address [facility] Phon e Number [facility] LABORATORY [address] [place] [address] SERVICES TEST, URINE (04/23/2021 18:31 EST) Test, NegativeComment: Negative [facility] Urine False negative LABORATORY results may occur in SERVICES women who are beyond 5-8 weeks gestation. Diagnosis of should be based on a correlation of test results with typical clinical signs and symptoms. Specimen Urine - Urine (substance) Performing Organization Address [facility] Phon e Number [facility] LABORATORY [address] [place] [address] SERVICES (ABNORMAL) COMPREHENSIVE METABOLIC PANEL (CMP) (04/23/2021 9:20 EST) Pathologist Sig nature Sodium 136 136 - 145 [facility] mmol/L LABORATORY SERVICES Potassium 3.0 (L) 3.5 - 5.0 [facility] mmol/L LABORATORY SERVICES Chloride 100 96 - 110 mmol/L [facility] LABORATORY SERVICES CO2 Total 25 22 - 32 mmol/L [facility] LABORATORY SERVICES Glucose 103 (H) 70 - 100 mg/dL [facility] LABORATORY SERVICES BUN 8 (L) 10 - 26 mg/dL [facility] LABORATORY SERVICES Creatinine 0.69 0.52 - 1.04 [facility] mg/dL LABORATORY SERVICES eGFR 111 >60 [facility] mL/min/1.73m2 LABORATORY SERVICES Total Protein 6.3 6.3 - 8.2 g/dL [facility] LABORATORY SERVICES Albumin 3.2 (L) 3.4 - 4.9 g/dL [facility] LABORATORY SERVICES Alkaline Phosphatase 114 38 - 126 U/L [facility] LABORATORY SERVICES AST 24 15 - 46 U/L [facility] LABORATORY SERVICES ALT 27 <35 U/L [facility] LABORATORY SERVICES Bilirubin, Total <0.5 <1.4 mg/dL [facility] LABORATORY SERVICES Calcium 8.4 (L) 8.5 - 10.5 [facility] mg/dL LABORATORY SERVICES Albumin/Globulin 1.0 1.0 - 2.5 [facility] Ratio LABORATORY SERVICES Anion Gap 11 8 - 16 [facility] LABORATORY SERVICES Specimen Blood - Venous blood (substance) Performing Organization Address City/[facility]/ZIP Code Phon e Number [facility] LABORATORY [address] [place] [address] SERVICES MAGNESIUM (04/23/2021 6:50 EST) Pathologist Sig nature Magnesium 1.8 1.7 - 2.8 mg/dL [facility] LABORA TORY SERVICES Specimen Blood - Venous blood (substance) Performing Organization Address City/[facility]/ZIP Code Phon e Number [facility]OR[facility] [address] [place] [address] SERVICES (ABNORMAL) BASIC METABOLIC PANEL (BMP) (04/23/2021 6:50 EST) Pathologist Sig nature Sodium 136 136 - 145 mmol/L [facility] LABORATORY SERVICES Potassium 2.9 (LL) 3.5 - 5.0 mmol/L [facility] LABORATORY SERVICES Chloride 102 96 - 110 mmol/L [facility] LABORATORY SERVICES CO2 Total 27 22 - 32 mmol/L [facility] LABORATORY SERVICES Anion Gap 7 (L) 8 - 16 [facility] LABORATORY SERVICES Glucose 119 (H) 70 - 100 mg/dL [facility] LABORATORY SERVICES Calcium 8.7 8.5 - 10.5 mg/dL [facility] LABORATORY SERVICES BUN 7 (L) 10 - 26 mg/dL [facility] LABORATORY SERVICES Creatinine 0.67 0.52 - 1.04 mg/dL [facility] LABORATORY SERVICES eGFR 112 >60 mL/min/1.73m2 [facility] LABORATORY SERVICES Specimen Blood - Venous blood (substance) Performing Organization Address City/[facility]/ZIP Code Phon e Number [facility] LABORATORY [address] [place] [id number] SERVICES (ABNORMAL) COMPLETE BLOOD COUNT AND DIFFERENTIAL (04/23/2021 6:50 EST) WBC 16.72 (H) 4.00 - 12.40 [facility] LABORATORY SERVICES RBC 3.43 (L) 3.86 - 5.04 [facility] LABORATORY SERVICES Hemoglobin 9.9 (L) 11.6 - 15.2 [facility] gm/dL LABORATORY SERVICES HCT 30.1 (L) 34.9 - 44.4 % [facility] LABORATORY SERVICES MCV 88 81 - 98 fl [facility] LABORATORY SERVICES MCH 28.9 26.7 - 33.3 pg [facility] LABORATORY SERVICES MCHC 32.9 32.1 - 35.9 [facility] gm/dL LABORATORY SERVICES RDW-CV 13.2 <14.7 % [facility] LABORATORY SERVICES RDW-SD 42.3 <50.4 fl [facility] LABORATORY SERVICES PLT 171 141 - 377 K[facility] LABORATORY SERVICES MPV 11.6 9.5 - 12.7 fl [facility] LABORATORY SERVICES Neutrophils 86.3 % [facility] LABORATORY SERVICES Lymphocytes 5.1 % [facility] LABORATORY SERVICES Monocytes 6.5 % [facility] LABORATORY SERVICES Eosinophils 0.5 % [facility] LABORATORY SERVICES Basophils 0.2 % [facility] LABORATORY SERVICES Immature Grans 1.4 % [facility] LABORATORY SERVICES Absolute Neutrophils 14.42 (H) 2.20 - 8.85 [facility] LABORATORY SERVICES Absolute Lymphocytes 0.86 (L) 1.09 - 3.30 [facility] LABORATORY SERVICES Absolute Monocytes 1.09 (H) 0.10 - 0.80 [facility] LABORATORY SERVICES Absolute Eosinophils 0.09 0.03 - 0.61 [facility] LABORATORY SERVICES Absolute Basophils 0.03 0.01 - 0.11 [facility] LABORATORY SERVICES Absolute Immature 0.23 (H) 0.00 - 0.06 [facility] LABORATORY SERVICES Type of Differential: Auto [facility] LABORATORY SERVICES Specimen Blood - Blood sample taken from central line (situation) Performing Organization Address City/State/ZIP Code Phon e Number [facility]OR[facility] [address] [place] [address] SERVICES COVID-19 TEST [facility] PCR (04/23/2021 2:53 EST) Specimen Swab - Entire nasopharynx (body structur e) Performing Organization Address [facility] Phon e Number [facility] [address] [place] [address] SERVICES COVID-19 TESTING (04/23/2021 2:53 EST) COVID-19 rt-PCR Negative Negative [facility] Result Comment: [facility] This test has not been FDA [...] and epidemiological informatio n. Performed on the [employer] GeneXpert Instrument Performing Lab GeneXpert [facility] LABORATORY SERVICES Specimen Swab - Entire nasopharynx (body structur e) Performing Organization Address [facility] Phon e Number [facility]OR[facility] [address] [place] [address] SERVICES CK (04/23/2021 1:57 EST) Pathologist Sig nature CK 102 30 - 135 U/L [facility] LABORATOR Y SERVICES Specimen Blood - Venous blood (substance) Performing Organization Address [facility] Phon e Number [facility] [address] [place] [address] SERVICES XR WRIST RIGHT 3 OR MORE VIEWS (04/22/2021 18:58 EST) Anatomical Region Laterality Modality Upper Extremities Right Computed Radiography Specimen Impressions [facility] - 04/22/2021 19:38 EST Diffuse soft tissue swelling of the distal right forearm, wrist, and hand. I have personally reviewed the images an d the above interpretation and agree with the findings. Narrative [facility] - 04/22/2021 19:38 EST XR FOREARM RIGHT [...] agree with the findings. Performing Organization Address City/State/RUST Code Phon e Number [facility] XR FOOT LEFT 3 OR MORE VIEWS (04/22/2021 18:57 EST) Anatomical Region Laterality Modality Lower Extremities Left Computed Radiography Specimen Impressions [facility] - 04/22/2021 19:51 EST 1. Questionable [...] interpretation and agree with the findings. Narrative [facility] - 04/22/2021 19:51 EST XR FOOT LEFT [...] agree with the findings. Performing Organization Address City/[facility]/ZIP Code Phon e Number [facility] XR FOREARM RIGHT 2 VIEWS (04/22/2021 18:56 EST) Anatomical Region Laterality Modality Upper Extremities Right Computed Radiography Specimen Impressions [facility] - 04/22/2021 19:38 EST Diffuse soft tissue swelling of the distal right forearm, wrist, and hand. I have personally reviewed the images an d the above interpretation and agree with the findings. Narrative [facility] - 04/22/2021 19:38 EST XR FOREARM RIGHT [...] Organization Address City/State/ZIP Code Phon e Number [facility] XR HAND RIGHT 3 OR MORE VIEWS (04/22/2021 18:55 EST) Anatomical Region Laterality Modality Upper Extremities Right Computed Radiography Specimen Impressions [facility] - 04/22/2021 19:38 EST Diffuse soft tissue swelling of the distal right forearm, wrist, and hand. I have personally reviewed the images an d the above interpretation and agree with the findings. Narrative [facility] - 04/22/2021 19:38 EST XR FOREARM RIGHT [...] body. Procedure Note Yris Vasquez MD - XR FOREARM RIGHT 2 VIEWS, XR HAND [...] Organization Address City/State/ZIP Code Phon e Number [facility] LACTIC ACID (04/22/2021 16:39 EST) Pathologist Sig nature Lactic Acid 0.6 <=2.0 mmol/L [facility] LABORATOR Y SERVICES Specimen Blood - Venous blood (substance) Performing Organization Address City/State/ZIP Code Phon e Number [facility] [address] [place] [address] SERVICES (ABNORMAL) COMPLETE BLOOD COUNT AND DIFFERENTIAL (04/22/2021 16:39 EST) WBC 14.45 (H) 4.00 - 12.40 [facility] LABORATORY SERVICES RBC 3.56 (L) 3.86 - 5.04 [facility] LABORATORY SERVICES Hemoglobin 9.9 (L) 11.6 - 15.2 [facility] gm/dL LABORATORY SERVICES HCT 32.0 (L) 34.9 - 44.4 % [facility] LABORATORY SERVICES MCV 90 81 - 98 fl [facility] LABORATORY SERVICES MCH 27.8 26.7 - 33.3 pg [facility] LABORATORY SERVICES MCHC 30.9 (L) 32.1 - 35.9 [facility] gm/dL LABORATORY SERVICES RDW-CV 13.0 <14.7 % [facility] LABORATORY SERVICES RDW-SD 42.8 <50.4 fl [facility] LABORATORY SERVICES PLT 135 (L) 141 - 377 K/m [facility] LABORATORY SERVICES MPV 11.4 9.5 - 12.7 fl [facility] LABORAT[facility] SERVICES Neutrophils 86.0 % [facility] LAB[facility] SERVICES Lymphocytes 5.2 % [facility] LABOR[facility] SERVICES Monocytes 7.4 % [facility] LABOR[facility] SERVICES Eosinophils 0.5 % [facility] LABOR[facility] SERVICES Basophils 0.1 % [facility] LABOR[facility] SERVICES Immature Grans 0.8 % [facility] LABORATORY SERVICES Absolute Neutrophils 12.43 (H) 2.20 - 8.85 [facility] LABORATORY SERVICES Absolute Lymphocytes 0.75 (L) 1.09 - 3.30 [facility] LABORATORY SERVICES Absolute Monocytes 1.07 (H) 0.10 - 0.80 [facility] LABORATORY SERVICES Absolute Eosinophils 0.07 0.03 - 0.61 [facility] LABORATORY SERVICES Absolute Basophils 0.02 0.01 - 0.11 [facility] LABORATORY SERVICES Absolute Immature 0.11 (H) 0.00 - 0.06 [facility] LABORATORY SERVICES Type of Differential: Auto [facility] LABORATORY SERVICES Specimen Blood - Venous blood (substance) Performing Organization Address City/[facility]/RUST Code Phon e Number [facility] [address] [place] [phone] SERVICES (ABNORMAL) BASIC METABOLIC PANEL (BMP) (04/22/2021 16:39 EST) Pathologist Sig nature Sodium 141 136 - 145 mmol/L [facility] LABOR[facility] SERVICES Potassium 3.0 (L) 3.5 - 5.0 mmol/L [facility] LAB[facility] SERVICES Chloride 105 96 - 110 mmol/L [facility] LAB[facility] SERVICES CO2 Total 24 22 - 32 mmol/L [facility] SERVICES Anion Gap 12 8 - 16 [facility] LAB[facility] SERVICES Glucose 89 70 - 100 mg/dL [facility] LAB[facility] SERVICES Calcium 8.7 8.5 - 10.5 mg/dL [facility] LABORAT[facility] SERVICES BUN 7 (L) 10 - 26 mg/dL [facility] LAB[facility] SERVICES Creatinine 0.65 0.52 - 1.04 mg/dL [facility] LABORAT[facility] SERVICES eGFR 113 >60 mL/min/1.73m2 [facility] LABORAT[facility] SERVICES Specimen Blood - Venous blood (substance) Performing Organization Address City/[facility] Phon e Number [facility] [address] [place] [phone] [address] OUTSIDE IMAGES MSK (04/22/2021 13:22 [...] uns pecified whether acute organ dysfunction present ([facility]) ([facility]) Group C streptococcal infection Streptococcus infection in conditions cl assified elsewhere and of unspecified site, group C Abscess of arm, right Cellulitis and abscess of upper arm and forearm Skin ulcer of left great toe, unspecifie d ulcer stage ([facility]) ([facility]) Leukopenia, unspecified type Open wound of left great toe, sequela Opioid use disorder, mild, abuse ([facility]) ([facility]) 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 ([facility]) Retained metal fragment foreign body Right arm cellulitis Cellulitis and abscess of upper arm and forearm Acute carpal tunnel syndrome, right documented in this encounter Admitting Diagnoses Diagnosis [...] mg Given 05/03/2021 8:15 EST 1,000 mg alteplase (CATHFLO ACTIVASE) injection 2 mg 2 mg, intercatheter, PRN, Starting on Elsa 04/28/21 at 2321, Until Sun05/04/21 at 1943, Line Care, Routine amoxicillin (AMOXIL) [...] on Sun04/23/21 at 0900, Until Discontinued, Routine Given 05/03/2021 8:15 EST 3 Film Given 05/02/2021 9:23 EST 3 Film collagenase (SANTYL) ointment Given 05/04/2021 15:18 EST topical, DAILY, First dose on Sun05/04/21 at 1330, Until Discontinued diphenhydrAMINE (BENADRYL) capsule 25 mg Given 05/04/2021 16:14 EST 25 mg 25 mg, oral, EVERY 6 HOURS PRN, Starting on Sun04/30/21 at 1800, Until Sun05/04/21 at 1943, Itching, Routine Given 05/04/2021 9:10 EST 25 mg Given 05/04/2021 0:22 EST 25 mg ferrous gluconate (FERGON) tablet 324 mg Given 05/04/2021 9:10 EST 324 mg 324 mg, oral, 2 TIMES DAILY WITH BREAKFAST & DINNER, First dose on Sun05/02/21 at 1730, Until Discontinued, Routine Given 05/03/2021 18:55 EST 324 mg Given 05/03/2021 8:15 EST 324 mg gabapentin (NEURONTIN) capsule 600 mg Given 05/04/2021 9:10 EST 600 mg 600 mg, oral, DAILY WITH BREAKFAST, First dose on Sun04/24/21 at 0800, Until Discontinued, Routine Given 05/03/2021 8:15 EST 600 mg Given 05/02/2021 9:23 EST 600 mg hydrocortisone-aloe vera 1 % cream Given 05/03/2021 23:56 EST topical, 4 TIMES DAILY PRN, Starting on Sun05/03/21 at 2322, Until Sun05/04/21 at 1943, Itching HYDROmorphone (DILAUDID) tablet 2 mg Given 05/04/2021 16:14 EST 2 mg 2 mg, oral, EVERY 4 HOURS PRN, Starting on Sun05/04/21 at 0815, Until Sun05/04/21 at 1943, Pain, Routine Given 05/04/2021 11:48 EST 2 mg ibuprofen (MOTRIN) tablet 400 mg Given 05/04/2021 16:14 EST 400 mg 400 mg, oral, EVERY 6 HOURS PRN, Starting on Sun04/27/21 at 2005, Until Sun05/04/21 at 1943, Pain, Routine Given 05/04/2021 9:10 EST 400 mg Given 05/04/2021 1:01 EST 400 mg polyethylene glycol 3350 (MIRALAX) packe t 17 g Given 05/04/2021 9:11 EST 17 g 17 g, oral, DAILY, First dose on 04/24/21 at 0900, Until Discontinued, Routine Given 05/02/2021 9:23 EST 17 g Given 05/01/2021 8:25 EST 17 g senna (SENOKOT) tablet 2 Tablet Given 05/03/2021 20:03 EST 2 Tablets 2 Tablet, oral, AT BEDTIME, First dose on 04/23/21 at 2230, Until Discontinued, Routine Given 05/02/2021 20:04 EST 2 Tablets Given 05/01/2021 21:10 EST 2 Tablets tiZANidine (ZANAFLEX) tablet 8 mg Given 05/04/2021 13:58 EST 8 mg 8 mg, oral, EVERY 8 HOURS PRN, Starting on Sun05/01/21 at 1037, Until Sun05/04/21 at 1943, Muscle Spasms, Routine Given 05/04/2021 6:00 EST 8 mg Given 05/03/2021 22:00 EST 8 mg documented in this encounter Discontinued Medications Medication [...] Provider Hn - Reason: Patient off unit)1139 (MAR Unhold - Provider: Automatic Transfer Provider Hn)2002 [...] g, intravenous, Administer over 10 Min utes, BEAM RACKER TO O.R., 1 dose, First dose on [...] RN) 0823 (Not Given - Provider: Karly sy RN - Reason: NPO)08 (JUN Hold - Provider: Automatic Transfer Provider [...] (JUN Unhold - Provider: Automatic Transfer Provider Gloria)2002 (Given - Provider: Cindy James LPN) 2 Tablet, oral, AT BEDTIME, First dose o n 04/23/21 at 2230, Until Discontinued, Routine Continuous Medication Order 05/02/2021 05/03/2021 05/04/2021 HYDROmorphone 1 mg/ml (DILAUDID) FACILITIES OPERATOR syringe, 30 ml (C ANCELED) 09 (New Bag - Provider: Karly Castorena RN)2156 (Rate Documented - Provider: Cindy James LPN) 2037 (New Bag - Provider: Monik Bryant RN) intravenous, CONTINUOUS, Starting on Sun04/27/21 at 1145, Until Sun05/04/21 at 0815, Routine, FACILITIES OPERATOR Dose (mg): 0.4, Lockout Interval (minutes): 10, Continuous Infusion Dose (mg/hr): 0, Maximum Limit (mg/hr): 2.4 PRN Medication Order 05/02/2021 05/03/2021 05/04/2021 alteplase (CATHFLO ACTIVASE) injection 2 mg 827 (JUN Hold - Provider: Automatic Transfer Provider Hn - Reason: Patient off unit)113 (JUN Unhold - Provider: Automatic Transfer Provider Hn) 2 mg, intercatheter, PRN, Starting on u 04/28/21 at 2321, Until Sun05/04/21 at 1943, [...] topical, 4 TIMES DAILY PRN, Starting on Tu05/03/21 at 2322, Until Sun05/04/21 at 1943, Itching [...] Hn)185 (Given - Provider: Karly Castorena RN) 0101 (Given - Provider: Cindy James LPN)0910 (Given [...] Startin g on 04/23/21 at 0500, Until Sun05/04/21 at 1943, peripheral intravenous catheter placement, Routine tiZANidine (ZANAFLEX) tablet 8 mg 0147 (Given - Provid er: Anyi Orellana RN - Comment: BP: 115/69)1030 (Given - Provider: Karly Castorena RN)2002 (Given - Provider: Cindy James LPN) 0421 (Given - Provider: Cindy James LPN)0828 (JUN Hold - Provider: Automatic Transfer Provider Hn - Reason: Patient off unit)1139 (JUN Unhold - Provider: Automatic Transfer Provider Hn)1326 (Given - Provider: Arnold Byrd RN) 0600 [...] ered Date First Ordered Date Been Administered amoxicillin (AMOXIL) capsule 500 mg 1 05/04/2021 collagenase (SANTYL) ointment 1 05/04/2021 HYDROmorphone (DILAUDID) tablet 2 mg 1 05/04/2021 atropine 0.1 mg/mL syringe 0.5 mg 4 05/03/2021 04/23/2021 hydrocortisone-aloe vera 1 % cream 1 05/03/2021 lactated ringers (LR) infusion 5 05/03/2021 1 06/24/2020 lidocaine 20 mg/mL (2 %) injection 10 mL 1 022 naloxone (NARCAN) injection 0.2 mg 4 05/03/2021 04/23/2021 acetaminophen (TYLENOL) tablet 1,000 mg 1 05/02/19 ceFAZolin (ANCEF) syringe 2 g 2 05/02/2021 ferrous gluconate (FERGON) tablet 324 mg 1 022 tiZANidine (ZANAFLEX) tablet 8 mg 1 05/01/2021 diphenhydrAMINE (BENADRYL) capsule 25 mg 3 022 fentaNYL citrate (PF) injection 25-50 mcg 3 202104/23/2021 HYDROmorphone (PF) (DILAUDID) 0.5 mg/0.5 3 022 04/23/2021 mL syringe 0.3-0.5 mg metoclopramide (REGLAN) injection 10 mg 3 04/30/19 22 04/23/2021 ondansetron (PF) (ZOFRAN) injection 4 mg 2 022 04/23/2021 sodium chloride 0.9 % irrigation 3 04/30/2021 04/23/2021 alteplase (CATHFLO ACTIVASE) injection 2 1 021 mg acetaminophen (TYLENOL) solution unit dose 1 04/27 cup 495 mg acetaminophen (TYLENOL) tablet 650 mg 3 04/27/2021 04/23/2021 dexmedeTOMIDine (PRECEDEX) injection 50 1 04/27/20 21 mcg diphenhydrAMINE (BENADRYL) injection 12.5 2 202004/23/2021 mg gabapentin (NEURONTIN) capsule 400 mg 1 04/27/2021 HYDROmorphone (DILAUDID) liquid 6 mg 1 04/27/2021 HYDROmorphone (PF) (DILAUDID) 0.5 mg/0.5 1 021 mL syringe HYDROmorphone (PF) (DILAUDID) 0.5 mg/0.5 6 021 04/22/2021 mL syringe 1 mg HYDROmorphone (PF) (DILAUDID) 0.5 mg/0.5 1 021 mL syringe 2 mg HYDROmorphone 1 mg/ml (DILAUDID) FACILITIES OPERATOR 2 04/27/2021 04/23/2021 syringe, 30 ml ibuprofen (MOTRIN) tablet 400 mg 3 04/27/2021 04/23/2021 midazolam (PF) (VERSED) injection 2 mg 1 acetaminophen (TYLENOL) tablet 500 mg 1 04/25/2021 HYDROmorphone (DILAUDID) liquid 4-6 mg 1 HYDROmorphone (PF) (DILAUDID) 0.5 mg/0.5 1 021 mL syringe 0.5 mg potassium chloride SA (K-DUR) tablet 20 3 04/24/20 21 04/23/2021 mEq vancomycin (VANCOCIN) IVPB 1,000 mg 3 04/24/2021 04/22/2021 buprenorphine-naloxone (SUBOXONE) 2-0.5 mg 1 04/23 sublingual film 3 Film cefTRIAXone (ROCEPHIN) 2,000 mg in sodium 2 202004/22/2021 chloride (NS MBP) 50 mL IVPB cyclobenzaprine (FLEXERIL) tablet 10 mg 1 04/23/20 gabapentin (NEURONTIN) capsule 600 mg 2 04/23/2021 HYDROmorphone (DILAUDID) tablet 2-4 mg 1 HYDROmorphone (DILAUDID) tablet 4 mg 1 04/23/2021 ketAMINE (KETALAR) 250 mg in NaCl 0.9% 25 1 2020 mL syringe lidocaine (PF) 10 mg/mL (1 %) injection 2 1 2020 mg polyethylene glycol 3350 (MIRALAX) packet 1 2020 17 g senna (SENOKOT) tablet 2 Tablet 1 04/23/2021 tiZANidine (ZANAFLEX) tablet 4 mg 1 04/23/2021 lactated ringers BOLUS 1,000 mL 1 04/22/2021 lidocaine (XYLOCAINE) 2 % jelly 1 04/22/2021 Procedures Count Last Ordered Date First Ordered [...] 04/29/202103/31 documented in this encounter Care Teams It Consulting Director Relationship Specialty Start Date End Date Ratna Olivas MD PCP - General 03/05/[address] [place] [phone] documented as of this encounter
--- OUTSIDE RECORDS SUMMARY | 2022-02-03 16:00 | XMS_ITS | Encounter Summary ---
:1980 Author Organization [facility] Address [address] [place] [address] Care Team Providers Name Role Phone Ratna Olivas MD Primary Care Provider Reason for Visit Auth/Cert Specialty Diagnoses / Procedures Referred By Contact Refer red To Contact Diagnoses Right arm cellulitis Sepsis Referral ID Status Reason Start Date Expiration Date Visits Requ ested Visits Authorized [id number] 1 1 Encounter Details Date Type Department Care Team Description 04/30/2021 Anesthesia Event [facility] Juliano Cano [address] [facility] [address] [place] [address] (Wo rk) Anesthesia Record Procedure Summary Procedure [...] by Evelyn Lamb, Left; Y; Full thickness creative director 05/03/21; 1031; Incision; 05/03/21 1031 by Sal [...] on filedocumented in this encounter Care Teams Private Duty Aide Relationship Specialty Start Date End Date Ratna Olivas MD PCP - General 03/05/[address] [phone] documented as of this encounter
--- OUTSIDE RECORDS SUMMARY | 2022-02-03 16:01 | XMS_ITS | Encounter Summary ---
:[address] [facility] Address [address] [place] [address] Care Team Providers Name Role Phone Ratna Olivas MD Primary Care Provider Reason for Visit Auth/Cert Specialty Diagnoses / Procedures Referred By Contact Refer red To Contact Diagnoses Right arm cellulitis Sepsis Referral ID Status Reason Start Date Expiration Date Visits Requ ested Visits Authorized [id number] 1 1 Encounter Details Date Type Department Care Team Description 04/28/2021 Anesthesia Event [facility] Leo Main MD [address] [facility] [address] [place], [place] [id number] [place] [phone] (Wo rk) Anesthesia Record Procedure Summary Procedure [...] Open Drain 04/27/21; 0944; In OR by ; 04/27/21 0944 by Sal Burris Right, Anterior; Other (Comment) JARRED Lau (wrist); (3/8 inch falguni drain) Wound 05/01/21; 1029; Dorsal (Foot), 05/01/21 1029 by Evelyn Lamb, Left; Y; Full thickness senior client advisor 01/04/22; 1031; Incision; 05/03/21 1031 by Sal Perez [...] on filedocumented in this encounter Care Teams Loop Sewer Relationship Specialty Start Date End Date Ratna Olivas MD PCP - General 03/05/[address] [place] [phone] documented as of this encounter
--- OUTSIDE RECORDS SUMMARY | 2022-02-03 16:01 | XMS_ITS | Encounter Summary ---
:1980 Author Organization [facility] Address [address] [place] [address] Care Team Providers Name Role Phone Ratna Olivas MD Primary Care Provider Reason for Visit Reason Comments Hand Pain BIBEMS tx from [facility]. R hand red, swollen and streaking up forearm. ulceration on left foot. hx IVDU, denies current use. limited ROM in L am. el evated WBCs, lactic WNL Diabetic Foot Infection Auth/Cert Specialty Diagnoses / Procedures Referred By Contact Refer red To Contact Diagnoses Right arm cellulitis Sepsis Referral ID Status Reason Start Date Expiration Date Visits Requ ested Visits Authorized [id number] 1 1 Encounter Details Date Type Department Care Team Description 04/27/2021 Surgery [facility] Main [place] OR Stone Bansal COMPLEX INCISION AND [address] Avni Paulson MD DRAINAGE, [place] [address] EXTREMITY [[address] [address], (CPT??)] [place] [phone] (Wo rk) Surgery Details Date/Time Status Location OR Service Patient Class Case Case Trauma Class Type Case? 04/27/21 0815 Posted [facility] OR [facility] Orthopedics Inpatient G - Less than 48 hours Panel 1 Procedure LRB Anes Op Region Wound Class Commen ts COMPLEX INCISION AND Right General Hand Class IV/ Dirty or DRAINAGE, WOUND, UPPER Infected EXTREMITY Surgeon Surgeon Role Service Panel Stone Bansal MD Primary Orthopedics 1 Sarah Monet PA-C Assisting Orthopedics 1 Special Needs 9L saline, TUR tubing, cultures Social History Tobacco Use Types Packs/Day Years [...] Sign Reading Time Taken Comments Blood Pressure 124/86 04/27/2021 0759 EST Pulse 68 04/27/2021 0509 EST Temperature 36.3 ??C (97.3 ??F) 04/27/2021 0759 EST Respiratory Rate 16 04/27/2021 0759 EST Oxygen Saturation 99% 04/27/2021 0759 EST Inhaled Oxygen Concentration - - Weight [...] ??? *Right arm cellulitis 04/23/2021 ??? Sepsis ([facility]) 04/24/2021 ??? Open wound of left great toe 04/24/2021 ??? Below-knee amputation of right lower extremity determined by examination ([facility]) 04/04/2019 ??? Opioid use disorder, mild, abuse ([facility]) ([facility]) 01/17/2019 ??? Retained metal fragment foreign body 04/25/2021 Class: Permanent Right groin; needle ??? Acute carpal tunnel syndrome, right 04/22/2021 Added automatically from request for surgery [id number] Resolved Hospital Problems Diagnosis Date Noted Date Resolved ??? History of Raynaud's syndrome 04/24/2021 04/25/2021 Transition of care: [facility] Transition of Care report automatically routed to [...] and chronic foot ulcers who presented from [facility] with concerns for worsening R arm cellulitis [...] She was maintained on a regimen of MARKETING COMMUNICATIONS ASSOCIATE dilaudid and ketamine drip before transitioning to PO regimentprior to discharge. Patient was discharged on TRUCKLOAD CHECKER suboxone regimen with pain under control. Patient [...] Procedure Component Value Units Date/Time Cryoglobulin, Serum [[id number]] Collected: 05/03/21 0614 Lab Status: In process Specimen: Blood, Venous Updated: 05/03/21 0620 Bacterial Culture, Blood [[id number]] Collected: 05/02/21 162 Lab Status: In process Specimen: Blood, Venous Updated: 05/02/21 163 Bacterial Culture, Blood [[id number]] Collected: 05/02/21 162 Lab Status: In process Specimen: Blood, Venous Updated: 05/02/21 1635 Upcoming Appointments May 05, 2021 13:55 Us Gillian & Physiologic Study with [id number] [facility] Vascular Surgery - [facility] (--) [address] [facility] [id number] Prep: -Wear loose fitting clothing and footwear appropriate for walking in the event that exercise testingis required. -Please bring any insurance information and a copayment if required by your insurance company. May 16, 2021 14:30 Post Op Visit with Kev Hughes MD [facility] Hand & Upper Extremity Program [facility]tazar De Guzman (--) [address] [facility] [phone] Follow-up appointments and procedures [facility], [facility] I certify that this patient is under my care and that I, or another Medicare allowed practitioner (DO AIDEE, STU) working with me, had a [id number]-[id number] encounter with this patient on this date: 05/03/2021 The discharge summary or progress note will provide further details that support the need for the home health services and the plan of care.: Yes Enter the allowed practitioner (DO AIDEE, STU) who will provide oversight of this patient's home heatlh care needs and plan of care: Ratna Olivas, PCP The patient???s homebound status is related to [...] Skilled Care Requested: Nursing asessment Wound care senior care assessment needed related to this encounter: Wound, Ostomy or Incontinence Assessment Skin Integrity Post Surgical Mcfp Referral - Wound Care: (Please include care and frequency.): Other Please Specify: chronic left foot wounds Scheduling Comments (optional ??? describe specific scheduling needs if applicable): every other day: Vashe solution. Foot Ulcers should be covered with a thick layer of Vaseline, followed by application of non-adherent Telfa dressing. The foot should then be wrapped in Kerlix. Authorizing Provider: Brendon Justice MD [facility], [facility] Cleanse wound, apply santyl, and dress with telfa and kerlix. Change every other day. I certify that this patient is under my care and that I, or another Medicare allowed practitioner (DO AIDEE, STU) working with me, had a qnmg-ni-nxvy encounter with this patient on this date: [...] upper extremities Skilled Care Requested: Wound care Mcfp Referral - Wound Care: (Please include care [...] 05/03/[address] KEV HUGHES [address] [place], [place] [phone] POST OPERATIVE INSTRUCTIONS 1. Keep your dressing/splint [...] [facility] need to plan in advance [...] Disposition Code Departure Means Destination Home-Health Care [facility] Home documented in this encounter Progress Notes Shane Cuevas MD - 05/04/2021 1742 EST Physician Query Response DEBRIDEMENT Anatomical Location: ( i.e. arm) wrist Instrument: (i.e. scalpel, curette) surgical sponge and irrigation Date: 04/30/2021 Please select from the choices below the option that best describes the patient's procedure: No, this is non-exisional involving the: Tendon Size: 4 sq cm Tissue Depth: Non-excisional debridement to tendon Antoinette Barth RN - 05/04/2021 1742 EST Halima Taylor RN from [facility] called inquiring when was last dose of Suboxone was given. ANTOINETTE VARGAS RN 05/05/2021 11:48 Vaishali Humphrey - 05/04/2021 1541 EST Per , pt can be dc to home. She will have script for WC if needed. She will have [place] [facility] to assist with dressings. SHe has a ride scheduled with [facility] for 1800 in [facility]. Pt aware. Vaishali Briseno RNCC #[id number] [...] disorder and chronic foot ulcers presents from [facility] for concerns for worsening right arm pain, [...] - ID consulted appreciate recs - Vanc [id number] - Continue ceftriaxone 2g Q24hrs until ready for discharge, then transition to cefpodoxime 200mg PO BID for total 4 week duration of abx (ending 05/21/21) - Pain regimen: APS now signed off - s/p Ketamine gtt - STOP dilaudid MARKETING COMMUNICATIONS ASSOCIATE today; switch to PO - Tylenol 1000 mg PO Q12hr - Continue TRUCKLOAD CHECKER gabapentin 600mg qD - Tizanidine increased to 8mg PO Q8hr PRN - Ibuprofen 400mg PO q6hr PRN - Continue TRUCKLOAD CHECKER 6mg total as Suboxone 2-0.5mg x 3 [...] BID #History of Raynaud's disease - Continue TRUCKLOAD CHECKER gabapentin ?? #Opoid use disorder - Regularly gets Suboxone from [facility]. UDS at OSH positive for cocaine use. - Continue TRUCKLOAD CHECKER suboxone - APS consulted , appreciate recs, [...] second toe wounds followed by an outside psychiatric social worker, right femoral artery infected pseudoaneurysm status post [...] Leal MD 05/04/2021 0:44 I am not automation driver today and will not be able to answer calls. Please direct calls to the orthopaedicson call resident for further questions. Karly Ferrara RN - 05/03/2021 6697 EST Data: Assumed care of Pt at 0700 Pt A&Ox3 Denies CP/SOB/N/V/D/GUILLEN. Pt is independent to commode. Continent of urine and stool. On Room air. On a MARKETING COMMUNICATIONS ASSOCIATE dilauded pump. BKA RLE. Pt went to OR today for closure of wound on RUE (wrist). Pt went down this afternoon for an echo. ?? Action: Head to toe assessment. Medicated per JUN. Hourly checks. ?? Response: No acute changes this shift. Pt safety maintained. WCTM. ?? KARLY CASTORENA RN 05/03/2021 17:48 Brendon Sherman MD - 05/03/2021 0809 EST Family Medicine Progress Note Service Date: [...] she looks forward to transitioning off the MARKETING COMMUNICATIONS ASSOCIATE after the OR today. Really hopeful they [...] disorder and chronic foot ulcers presents from [facility] for concerns for worsening right arm pain, [...] - ID consulted appreciate recs - Vanc [id number] - Continue ceftriaxone 2g Q24hrs until ready for discharge, then transition to cefpodoxime 200mg PO BID for total 4 week duration of abx (ending 05/21/21) - Pain regimen: APS now signed off - s/p Ketamine gtt - Dilaudid MARKETING COMMUNICATIONS ASSOCIATE 0.4mg q10 min PRN, no basal rate - plan to transition to PO after OR washout 05/03 - Tylenol 1000 mg PO Q12hr - Continue TRUCKLOAD CHECKER gabapentin 600mg qD - Tizanidine increased to 8mg PO Q8hr PRN - Ibuprofen 400mg PO q6hr PRN - Continue TRUCKLOAD CHECKER 6mg total as Suboxone 2-0.5mg x 3 [...] BID #History of Raynaud's disease - Continue TRUCKLOAD CHECKER gabapentin ?? #Opoid use disorder - Regularly gets Suboxone from [facility]. UDS at OSH positive for cocaine use. - Continue TRUCKLOAD CHECKER suboxone - APS consulted , appreciate recs, [...] second toe wound followed by an outside psychiatric social worker, right femoral artery infected pseudoaneurysm status post [...] and stool. On Room air. On a MARKETING COMMUNICATIONS ASSOCIATE dilauded pump. BKA RLE. NPO at midnight [...] for I&D tomorrow. -Antibiotics: Per ID -Continue local/TRUCKLOAD CHECKER management of left foot ulceration with outpatient follow-up with psychiatric social worker -Dispo: Pending REDDY JEROME MD 05/02/21 10:12 [...] drip over the weekend. Using her dilaudid MARKETING COMMUNICATIONS ASSOCIATE frequently but is unsure how often. States overnight she is able to sleep 2-3hours at a time without having to push the button, but finds herself having to use it more frequently during the day. Would like to come off narcotics as soon as possible. Feels the swelling in her fingers is getting better. She is unaware of an [facility] regarding furtherprocedures. Review of Systems 10 pt [...] disorder and chronic foot ulcers presents from [facility] for concerns for worsening right arm pain, [...] - ID consulted appreciate recs - Vanc [id number] - Continue ceftriaxone 2g Q24hrs until ready for discharge, then transition to cefpodoxime 200mg PO BID for total 4 week duration of abx (ending 05/21/21) - f/u with ID regarding switch to ampicillin given speciation S. dysgalactiae - Pain regimen: APS now signed off - s/p Ketamine gtt - Dilaudid MARKETING COMMUNICATIONS ASSOCIATE 0.4mg q10 min PRN, no basal rate - consider transitioning to PO after OR washout tomorrow 05/03 - Tylenol 1000 mg PO Q12hr - Continue TRUCKLOAD CHECKER gabapentin 600mg qD - Tizanidine increased to 8mg PO Q8hr PRN - Ibuprofen 400mg PO q6hr PRN - Continue TRUCKLOAD CHECKER 6mg total as Suboxone 2-0.5mg x 3 film SL daily - Monitor fever curve - Daily CBCs with diff #Left Hallux and 2nd Toe Wound: Followed by podiatry at outside hospital. Ortho evaluated on admission and recommended dressing changes per patient home recs. - Dressing change q72hrs #Normocytic Anemia, chronic per chart review - f/u iron studies #History of Raynaud's disease - Continue TRUCKLOAD CHECKER gabapentin ?? #Opoid use disorder - Regularly gets Suboxone from [facility] clinic. UDS at OSH positive for cocaine use. - Continue TRUCKLOAD CHECKER suboxone - APS consulted , appreciate recs, [...] arm in cast with zofia bandage. Ketaminedrip. MARKETING COMMUNICATIONS ASSOCIATE dilaudid. Complains of pain 12/07. Action: Helped pt elevate RUE with pillows, gave meds per emar, hourly checks. Wound care dressing change on left foot. Response: Pt is comfortable in bed, using MARKETING COMMUNICATIONS ASSOCIATE, will continue to monitor. EVELYN NJ RN [...] Q24H, Sydnie Chakraborty, DO, 2,000 mg at 04/30/21 2347 ??? diphenhydrAMINE (BENADRYL) capsule 25 mg, 25 mg, oral, Q6H PRN, Sydnie Chakraborty, DO, 25 mg at 04/30/21 2345 ??? gabapentin (NEURONTIN) capsule 600 mg, 600 mg, oral, DAILY (BREAKFAST), Sarah Monet PA-C, 600 mg at 04/30/21 1139 ??? HYDROmorphone 1 mg/ml (DILAUDID) MARKETING COMMUNICATIONS ASSOCIATE syringe, 30 ml, , intravenous, CONTINUOUS, Leo [...] the patient is sedated). Tizanidine is an jjemr-5-oynrbcyf like dexmedetomidine which may help with anxiety, [...] duration of opioid use for specific surgeries: [employer]) ??? Continue hydromorphone MARKETING COMMUNICATIONS ASSOCIATE 0.4 mg every 10 mins No Basal [...] Christin Young MD - 05/01/2021 0759 EST [facility] Medicine Progress Note Service Date: 05/01/2021 Admit [...] ketamine drip off. Has been using her MARKETING COMMUNICATIONS ASSOCIATE frequently for the cramping sensation, notes her [...] disorder and chronic foot ulcers presents from [facility] for concerns for worsening right arm pain, [...] - ID consulted appreciate recs - Vanc [id number] - Continue ceftriaxone 2g Q24hrs until ready for discharge, then transition to cefpodoxime 200mg PO BID for total 4 week duration of abx (ending 05/21/21) - Pain regimen: APS now signed off - Ketamine gtt discontinued this morning - Dilaudid MARKETING COMMUNICATIONS ASSOCIATE 0.4mg q10 min PRN, no basal rate - Tylenol 500 mg PO Q6hr - Continue TRUCKLOAD CHECKER gabapentin 600mg qD - Tizanidine increased to 8mg PO Q8hr PRN - Ibuprofen 400mg PO q6hr PRN - Continue TRUCKLOAD CHECKER 6mg total as Suboxone 2-0.5mg x 3 film SL daily - Monitor fever curve - Daily CBCs with diff Left Hallux and 2nd Toe Wound: Followed by podiatry at outside hospital. Ortho evaluated on admission and recommended dressing changes per patient home recs. - Dressing change q72hrs History of Raynaud's disease - Continue TRUCKLOAD CHECKER gabapentin ?? Opoid use disorder - Regularly gets Suboxone from [facility] clinic. UDS at OSH positive for cocaine use. - Continue TRUCKLOAD CHECKER suboxone - APS consulted , appreciate recs, [...] MD 05/01/21 10:38 Family Medicine PGY3, Page #[phone] Associated attestation - Clark Salinas MD - [...] -Diet: Per primary -Antibiotics: Per ID -Continue local/TRUCKLOAD CHECKER management of left foot ulceration with outpatient follow-up with psychiatric social worker -Dispo: Pending. Will discuss repeat I&D timing [...] for operative invention -Antibiotics: Per ID -Continue local/TRUCKLOAD CHECKER management of left foot ulceration with outpatient follow-up with psychiatric social worker -Dispo: Pending Juan Schmitz MD Orthopaedic Surgery, [...] disorder and chronic foot ulcers presents from [facility] for concerns for worsening right arm pain, [...] Ketamine gtt, decreased to 5mg/hr - Continue TRUCKLOAD CHECKER gabapentin 600mg qD - Tizanidine 4mg PO Q8hr PRN - Ibuprofen 400mg PO q6hr PRN - Dilaudid MARKETING COMMUNICATIONS ASSOCIATE 0.4mg q10 min PRN, no basal rate - Continue TRUCKLOAD CHECKER 6mg total as Suboxone 2-0.5mg x 3 film SL daily - Monitor fever curve - Daily CBCs with diff Left Hallux and 2nd Toe Wound: Followed by podiatry at outside hospital. Ortho evaluated on admission and recommended dressing changes per patient home recs. - Dressing change q72hrs History of Raynaud's disease - Continue TRUCKLOAD CHECKER gabapentin ?? Opoid use disorder - Regularly gets Suboxone from [facility] clinic. UDS at OSH positive for cocaine use. - Continue TRUCKLOAD CHECKER suboxone - APS consulted , appreciate recs, [...] Chakraborty DO, MPH Family Medicine PGY3, Page #[phone] 04/30/21, 11:19 Associated attestation - Clark Salinas [...] 04/29/21 0804 ??? HYDROmorphone 1 mg/ml (DILAUDID) MARKETING COMMUNICATIONS ASSOCIATE syringe, 30 ml, , intravenous, CONTINUOUS, Leo Aguilar MD, New Bag at 04/29/212005 ??? ibuprofen (MOTRIN) tablet 400 mg, 400 mg, oral, Q6H PRN, Christin Young MD, 400 mg at ??? ketAMINE (KETALAR) 250 mg in NaCl 0.9% 25 mL syringe, 5 mg/hr, intravenous, CONTINUOUS, Juliano Damon, Last Rate: 1.5 mL/hr at 04/30/21 0742, 15 mg/hr at 04/30/21 0742 ??? lactated ringers (LR) infusion, , intravenous, [...] the patient is sedated). Tizanidine is an fnipj-1-bxdkaupv like dexmedetomidine which may help with anxiety, [...] duration of opioid use for specific surgeries: [employer]) ??? Continue hydromorphone MARKETING COMMUNICATIONS ASSOCIATE 0.4 mg every 10 mins No Basal [...] is in agreement with Brian SOW at [facility] for dressing changes. MD will need to specify dressing changes at [facility]. SHe will need a ride home ([facility]). SHe does use [facility] for transportat home and feels that they may supply transport home. CM following. RAHUL Menon #[id number] Juliano Sage - 04/29/2021 0917 EST ACUTE PAIN SERVICE [...] Q24H, Sydnie Chakraborty, DO, 2,000 mg at 04/28/216 ??? gabapentin (NEURONTIN) capsule 600 mg, 600 mg, oral, DAILY (BREAKFAST), Sarah Monet PA-C, 600 mg at 04/29/21 0804 ??? HYDROmorphone 1 mg/ml (DILAUDID) MARKETING COMMUNICATIONS ASSOCIATE syringe, 30 ml, , intravenous, CONTINUOUS, Leo Aguilar MD, New Bag at 04/28/211924 ??? ibuprofen (MOTRIN) tablet 400 mg, 400 mg, oral, Q6H PRN, Christin oYung MD, 400 mg at ??? ketAMINE (KETALAR) 250 mg in NaCl 0.9% 25 mL syringe, 25 mg/hr, intravenous, CONTINUOUS, Sarah Monet PA-C, Last Rate: 2.5 mL/hr at 04/29/21 0807, 25 mg/hr at 04/29/21806 ??? lactated ringers (LR) infusion, , intravenous, [...] the patient is sedated). Tizanidine is an dhnfs-6-tulenqbg like dexmedetomidine which may help with anxiety, [...] duration of opioid use for specific surgeries: [place] [employer] Website) ??? Continue hydromorphone MARKETING COMMUNICATIONS ASSOCIATE 0.4 mg every 10 mins No Basal [...] midnight -Antibiotics: Per ID -continuing ceftriaxone. -Continue local/TRUCKLOAD CHECKER management of left foot ulceration with outpatient follow-up with psychiatric social worker -Dispo: Pending. -Possible take back to OR on 04/30/21 for wound I&D and potential closure Juan Schmitz MD Orthopaedic Surgery, PGY2 Claude Marie MD - 04/29/2021 0705 EST Family Medicine Progress Note Service Date: 04/29/2021 Admit [...] disorder and chronic foot ulcers presents from [facility] for concerns for worsening right arm pain, [...] placed History of Raynaud's disease - Continue TRUCKLOAD CHECKER gabapentin ?? Opoid use disorder - Regularly gets Suboxone from [facility] clinic. UDS at OSH positive for cocaine use. - continue TRUCKLOAD CHECKER suboxone APS consulted , appreciate recs, pain [...] DAILY (BREAKFAST) ??? HYDROmorphone 1 mg/ml (DILAUDID) MARKETING COMMUNICATIONS ASSOCIATE syringe, 30 ml intravenous CONTINUOUS ??? ibuprofen [...] LIU RD, CD (Call PAS or use [employer] to page RD covering this unit) Leo [...] , , ??? HYDROmorphone 1 mg/ml (DILAUDID) MARKETING COMMUNICATIONS ASSOCIATE syringe, 30 ml, , intravenous, CONTINUOUS, Leo [...] the patient is sedated). Tizanidine is an lykwo-5-hbpbwefz like dexmedetomidine which may help with anxiety, [...] duration of opioid use for specific surgeries: [employer] Website) ??? Continue hydromorphone MARKETING COMMUNICATIONS ASSOCIATE 0.4 mg every 10 mins No Basal [...] patient easily transitioned off of ketamine and MARKETING COMMUNICATIONS ASSOCIATE prior to surgery on 04/27/21. Will expect she will be able to transition easily again. Thank you for including the Acute Pain Service in care of this patient. Please contact us (pager #[phone]) with any questions or concerns. Patient seen [...] primary -Antibiotics: Per ID -continuing ceftriaxone. -Continue local/TRUCKLOAD CHECKER management of left foot ulceration with outpatient follow-up with psychiatric social worker -Dispo: Pending Juan Schmitz MD Orthopaedic Surgery, [...] Medications: Reviewed. Labs: Reviewed: CBC: Recent Labs 04/26/21 0618 04/27/21 0530 WBC 7.22 6.29 RBC 3.34* [...] disorder and chronic foot ulcers presents from [facility] for concerns for worsening right arm pain, [...] Ketamine gtt (manged by APS) - Continue TRUCKLOAD CHECKER gabapentin 600mg qD - Tizanidine 4mg PO Q8hr PRN - Ibuprofen 400mg PO q6hr PRN - Dilaudid MARKETING COMMUNICATIONS ASSOCIATE 0.4mg q10 min PRN, no basal rate - Continue TRUCKLOAD CHECKER 6mg total as Suboxone 2-0.5mg x 3 film SL daily - Follow-up OSH blood clxs -Called and left message 04/25 (negative BC at [facility] to date suggesting that this may [...] placed History of Raynaud's disease - Continue TRUCKLOAD CHECKER gabapentin ?? Opoid use disorder - Regularly gets Suboxone from [facility]. UDS at OSH positive for cocaine use. [...] Chakraborty DO, MPH Family Medicine PGY3, Page #[phone] 04/28/21, 7:28 Associated attestation - Clark Salinas [...] greatly improved from last night. Titration of MARKETING COMMUNICATIONS ASSOCIATE per APS. Anticipate DC tomorrow or possibly Sunday Clark Salinas MD 04/28/2021 13:23 Ayaz Jernigan RN - 04/28/2021 0607 EST Data: Assumed care of patient at 2330 AOx3 on room air with even, nonlabored respirations. Has intact dressing to right arm s/p I&D 04/27. Non-pitting swelling to fingers of right hand. Well healedright BKA. Ketamine infusion at 25 mg/hr and Hydromorphone MARKETING COMMUNICATIONS ASSOCIATE at 0.4 mg q10 mins; 2.4 mg [...] restarted ketamine, trialed Precedex bolus, and restartedhydromorphone MARKETING COMMUNICATIONS ASSOCIATE. Cannot perform brachial plexus block due to [...] 04/27/21 15:21 Arnold Hollingsworth MD - 04/27/2021 0453 EST ACUTE PAIN SERVICE INITIAL INPATIENT FOLLOW [...] , , , HYDROmorphone 1 mg/ml (DILAUDID) MARKETING COMMUNICATIONS ASSOCIATE syringe, 30 ml, , intravenous, CONTINUOUS, Leo [...] DAILY, Joya Camarena MD, 17g at 04/26/21 08 [JUN Hold] senna (SENOKOT) tablet 2 Tablet, [...] Restart Ketamine and increase to 25 mg/hr [place] Precedex bolus 1 mcg/kg over 10 mins to help with post-op pain/anxiety Continue gabapentin 600 mg PO daily Muscle Relaxant: Continue tizanidine 4 mg PO Q8H PRN (hold if systolic blood pressure < 100 mmHg or if the patient is sedated). Tizanidine is an icedy-7-xwuyrhjw like dexmedetomidine which may help with anxiety, [...] duration of opioid use for specific surgeries: [place] [employer]) Restart hydromorphone MARKETING COMMUNICATIONS ASSOCIATE 0.4 mg every 10 mins No Basal [...] of this patient. Please contact us (pager #[phone]) with any questions or concerns. Patient seen [...] Poss closure and dc pending result. Vaishali Briseno RNM #[id number] Juan Alonzo MD - 04/27/2021 0714 EST [...] OR -Antibiotics: Per ID -continuing ceftriaxone. -Continue local/TRUCKLOAD CHECKER management of left foot ulceration with outpatient follow-up with psychiatric social worker -Plan for operative intervention with orthopedic surgery [...] disorder and chronic foot ulcers presents from [facility] for concerns for worsening right arm pain, [...] gtt (manged by APS) - D/C Dilaudid MARKETING COMMUNICATIONS ASSOCIATE 04/25, transition to dilaudid 4-6 mg PO q3hr for pain - hydromorphone 0.5 mg IV Q4H PRN for breakthough pain - Tizanidine 4mg PO Q8hr - Continue TRUCKLOAD CHECKER gabapentin - Continue TRUCKLOAD CHECKER suboxone Suboxone 2-0.5mg 3 film SL daily - Follow-up OSH blood clxs -Called and left message 04/25 (negative BC at [facility] to date suggesting that this may [...] recs. History of Raynaud's disease - Continue TRUCKLOAD CHECKER gabapentin ?? Opoid use disorder - Regularly gets Suboxone from [facility]. UDS at OSH positive for cocaine use. [...] James MD Family Medicine, PGY-3 04/27/21 6:48 #[id number] Associated attestation - Clark Salinas MD - [...] well after transitioning off of her HM MARKETING COMMUNICATIONS ASSOCIATE to PO hydromorphone. States her pain is [...] (ANCEF) syringe 2 g, 2 g, intravenous, SCHOOL LIBRARIAN TO O.R., Sourav Leal MD cefTRIAXone (ROCEPHIN) [...] the patient is sedated). Tizanidine is an baqfg-1-kryjtknj like dexmedetomidine which may help with anxiety, [...] duration of opioid use for specific surgeries: [place] Open Website) Hydromorphone 4-6 mg PO Q3H [...] of this patient. Please contact us (pager #[phone]) with any questions or concerns. Patient seen [...] midnight -Antibiotics: Per ID -continuing ceftriaxone. -Continue local/TRUCKLOAD CHECKER management of left foot ulceration with outpatient follow-up with psychiatric social worker -Dispo: Pending -Plan for repeat I&D with potential wound closure tomorrow 04/27/21 Juan Schmitz MD Orthopaedic Surgery, PGY2 Pager #[phone] Kraig Guerrier MD - 04/26/2021 0653 EST [...] 04/27/2021] ceFAZolin (ANCEF) syringe 2 g intravenous SCHOOL LIBRARIAN TO O.R. ??? cefTRIAXone (ROCEPHIN) 2,000 mg [...] disorder and chronic foot ulcers presents from [facility] for concerns for worsening R arm cellulitis [...] gtt (manged by APS) - D/C Dilaudid MARKETING COMMUNICATIONS ASSOCIATE 04/25, transition to dilaudid 4-6 mg PO q3hr for pain - hydromorphone 0.5 mg IV Q4H PRN for breakthough pain - Tizanidine 4mg PO Q8hr - Continue TRUCKLOAD CHECKER gabapentin - Continue TRUCKLOAD CHECKER suboxone Suboxone 2-0.5mg 3 film SL daily - Follow-up OSH blood clxs -Called and left message 04/25 (negative BC at [facility] to date suggesting that this may [...] recs. #History of Raynaud's disease - Continue TRUCKLOAD CHECKER gabapentin ?? #Opoid use disorder - Regularly gets Suboxone from [facility]. UDS at OSH positive for cocaine use. [...] Type of housing (single family, condo, apartment, care home, single room occupancy, [facility] funded hotel room, group long-term) - apartment Who does the patient live with?daughter-9Y.O. Does the patient have access to their own bedroom/bathroom/kitchen - or is it shared with others? own Name of housing complex (ex [address], [facility], etc)- [facility] Housing Authority/Managing Organization - subsidized housing Community Care Providers (home health care case manager, [facility] nurse, etc) name and contact information-na LIVING ARRANGEMENTS AND ACCESSIBILITY ISSUES: Living Arrangements: Children Levels: 1 Stairs to enter: 4 or more Handicap access: None Bathroom located on bedroom level?: Yes What in home social supports are available to the patient? Friends / neighbors Is 24/7 care available? No ADVANCED DIRECTIVES, POA &/or COLST IN PLACE: Healthcare Directive: No, patient does not have advance directive for healthcare treatment DIRECTIVES FOR FINANCES: TRANSPORTATION: [facility] Transportation: RCT Patient expects to be discharged to: Home CULTURAL, JEW and/or LANGUAGE factors affecting health care/discharge planning: [...] Gait device: Crutch/Walker Community Services: Home health, MOW, [facility]-none of one time a week Will you [...] Home Health Services: None DME Provider: Pharmacy: [id number] - [facility], [place] - [address] [facility] [id number] Home Health: Other: POST HOSPITAL TRANSITION PLAN:Pt resides with her 9YO daughter in an apartment in [place]. SHe has a wc but rarely uses it and relies on crutches to get around. She states she is in process of obtaining a prosthesis and is supposed to be getting it Apr this next year. She does drive but her car is incapacitated at the moment so she uses [facility] to get to medical appointments. . She will need a ride home and will need to contact [facility] for ride. She states her new PCP is Georgette Ramsey, at [facility] internal Medicine in [place]. CM will follow for any DC needs. VAISHALI BRISENO 04/25/2021 15:16 Arnold Hollingsworth MD - 04/25/2021 1024 EST ACUTE PAIN SERVICE INITIAL INPATIENT FOLLOW UP NOTE CHIEF COMPLAINT: right upper extremity pain SUBJECTIVE: Can in the knuckles. Pressure in nature. Pt doing well, pain well controlled. 5-12/07 No nightmares, but weird dreams REVIEW OF [...] 04/25/21 0848 ??? HYDROmorphone 1 mg/ml (DILAUDID) MARKETING COMMUNICATIONS ASSOCIATE syringe, 30 ml, , intravenous, MARKETING COMMUNICATIONS ASSOCIATE, Kyle Caballero MD, Rate Verify at 04/25/21604 ??? ibuprofen (MOTRIN) tablet 400 mg, 400 mg, oral, Q6H PRN, Joya Camarena MD, 400 mg at 04/25/21240 ??? ketAMINE (KETALAR) 250 mg in NaCl 0.9% 25 mL syringe, 15 mg/hr, intravenous, CONTINUOUS, Kyle Caballero MD, Last Rate: 1.5 mL/hr at 04/25/21605, 15 mg/hr at 04/25/21605 ??? lactated ringers (LR) infusion, , intravenous, CONTINUOUS, Kyle Caballero MD, Last Rate: 75 mL/hrat 04/25/2120, New Bag at 04/25/2120 ??? lidocaine (PF) 10 mg/mL (1 %) [...] CBC: Recent Labs 04/23/21 0650 04/24/21 0614 12/27/21 0616 WBC 16.72* 12.01 8.07 RBC 3.43* [...] the patient is sedated). Tizanidine is an dfjqj-0-quikcxzu like dexmedetomidine which may help with anxiety, [...] duration of opioid use for specific surgeries: [employer] Website) ??? Stop MARKETING COMMUNICATIONS ASSOCIATE ??? Start hydromorphone 4-6 mg PO Q3H [...] of this patient. Please contact us (pager #[phone]) with any questions or concerns. Patient seen with Leo Aguilar MD (resident) Arnold Arredondo MD Tomeka Moreno MD - 04/25/2021 0830 EST Orthopedic surgery progress note: Problem: Right [...] her left foot ulceration, she continue her TRUCKLOAD CHECKER management with outpatient follow-up with her psychiatric social worker. TOMEKA HUERTA MD 04/25/2021 8:29 Kraig Guerrier [...] patient on a ketamine gtt and dilaudid MARKETING COMMUNICATIONS ASSOCIATE. Subjective/Objective Subjective Patient resting comfortably in bed [...] DAILY (BREAKFAST) ??? HYDROmorphone 1 mg/ml (DILAUDID) MARKETING COMMUNICATIONS ASSOCIATE syringe, 30 ml intravenous MARKETING COMMUNICATIONS ASSOCIATE ??? ibuprofen (MOTRIN) tablet 400 mg oral [...] disorder and chronic foot ulcers presents from [facility] for concerns for worsening R arm cellulitis [...] gtt (manged by APS) - D/C Dilaudid MARKETING COMMUNICATIONS ASSOCIATE, transition to dilaudid 4-6 mg PO q3hr for pain - Consider hydromorphone 0.5 mg IV Q4H PRN for breakthough pain - Tizanidine 4mg PO Q8hr - Continue TRUCKLOAD CHECKER gabapentin - Continue TRUCKLOAD CHECKER suboxone Suboxone 2-0.5mg 3 film SL daily - Follow-up OSH blood clxs -Called and left message today (negative BC at [facility] to date suggesting that this may [...] recs. #History of Raynaud's disease - Continue TRUCKLOAD CHECKER gabapentin ?? #Opoid use disorder - Regularly gets Suboxone from [facility] clinic. UDS at OSH positive for [...] RODRIGUES MD 04/25/2021 7:16 Family Medicine PGY1 [id number] Associated attestation - Clark Salinas MD - [...] an outpatient by her orthopedic surgeon in [place] Clark Salinas MD 04/25/2021 14:23 Elmira Lynne [...] Leal MD ??? HYDROmorphone 1 mg/ml (DILAUDID) MARKETING COMMUNICATIONS ASSOCIATE syringe, 30 ml, , intravenous, MARKETING COMMUNICATIONS ASSOCIATE, Kyle Caballero MD, New Bag at 04/23/212026 [...] the patient is sedated). Tizanidine is an vtyvz-9-ysuvvjvi like dexmedetomidine which may help with anxiety, [...] duration of opioid use for specific surgeries: [place] Open Website) ??? Continue HM IV MARKETING COMMUNICATIONS ASSOCIATE 0.4mg q10 ??? Pt's home dose daily [...] of this patient. Please contact us (pager #[phone]) with any questions or concerns. Colleen Ware MD [facility] Pain Medicine Fellow PGY-5 04/24/21 Attending attestation: I saw and examined the patient with fellow/resident. I agree with the findings and plan of care documented in this note. ELMER Meyer Lory lAford, ZURDO - 04/24/2021 0914 EST Nutrition Assessment Reason for Assessment: Medical Summary: Lindsay Jean Baptiste is a 40 y.o. 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 Subjective/Objective Subjective The patient notes that her [...] DAILY (BREAKFAST) ??? HYDROmorphone 1 mg/ml (DILAUDID) MARKETING COMMUNICATIONS ASSOCIATE syringe, 30 ml intravenous MARKETING COMMUNICATIONS ASSOCIATE ??? ibuprofen (MOTRIN) tablet 400 mg oral [...] disorder and chronic foot ulcers presents from [facility] for concerns for worsening R arm cellulitis [...] Ketamine gtt (manged by APS) - Dilaudid MARKETING COMMUNICATIONS ASSOCIATE (managed by APS), MARKETING COMMUNICATIONS ASSOCIATE dose 0.4mg, Max limit 2.4mg/hr - Tizanidine 4mg PO Q8hr - Continue TRUCKLOAD CHECKER gabapentin - Continue TRUCKLOAD CHECKER suboxone - Follow-up OSH blood clxs (attempted [...] recs. #History of Raynaud's disease - Continue TRUCKLOAD CHECKER gabapentin ?? #Opoid use disorder - Regularly gets Suboxone from [facility]. UDS at OSH positive for cocaine use. - Continue TRUCKLOAD CHECKER Suboxone 6-1.5 mg once daily - Inpatient substance use treatment algorithm: - UDS samples PRN - Consult pharmacy for med review - Cover all IVs at all time - Substance use agreement signed ?? VTE Prophylaxis Seqential Compression Device *Note patient isn't on apixaban TRUCKLOAD CHECKER, as previously noted in her chart. ?? Code: Prior Discharge Plan Home or self care ?? Consults None Gigi Ramos MD 04/24/2021 8:15 Family Medicine [id number] signed by Zhen Beavers III, MD at [...] and she is on ketamine and dilaudid MARKETING COMMUNICATIONS ASSOCIATE. Reassuringly, her clinic picture is slightly improved today as she remains afebrile and with improved leukocytosis. Care of this patient will be assumed by attending provider Dr. Clark Salinas starting tomorrow. Zhen Beavers MD Family Medicine 04/24/21 Sourav Leal MD - 04/24/2021 0739 EST Orthopedic progress note Problem: Acute carpal [...] answer calls. Please direct calls to orthopaedics automation driver resident for further questions. Sourav Corea MD [...] 04/23/2021 12:42 Tomeka Moreno MD - 04/23/2021 0996 EST Orthopedic surgery progress note: Problem: Right [...] disorder and chronic foot ulcers presents from [facility] for concerns for worsening R arm cellulitis [...] that she has had to come to [place] to seek care, but hopes she is in the right place. Reports she receives her Suboxone (on taper bc wants to get off, decreased to 4+2 QAM about a month ago) for from the [facility] clinic Denies any recent IVDU including in right upper extremity. Denies trauma including around nail of the upper extremity and denies soaking in any water. Reports her UPT was negative at [facility]. History of pseudomonas from a RLE [...] (HCC) ??? DVT (deep venous thrombosis) (HCC-CMS) ([facility]) ??? Hepatitis C antibody positive in blood [...] disorder and chronic foot ulcers presents from [facility] for concerns for worsening R arm cellulitis [...] need med rec if patient still taking TRUCKLOAD CHECKER Gabapentin, patient not able to confirm on initial assessment #Opoid use disorder - Regularly gets Suboxone from [facility] clinic. UDS at OSH positive for [...] fluctuance. Psych: Appropriate mood and affect. Access: [facility] Labs Recent Labs 05/03/21 0524 05/04/21 0552 [...] with progressive closure on 04/27/[address] Basnal -Irrigation and debridement of the right hand with progressive closure on 04/30/[address] Cuevas -Irrigation debridement of the right hand with closure on 05/03/[address] Hughes 3. Chronic left dorsal hallux and left second toe ulcer Managed by outside hospital podiatry team. Patient followed closely by podiatry [place] who plans to do an amputation of [...] from last operation: 05/03/2021-05/16/2021 3. Follow-up with psychiatric social worker in [place] upon discharge who plans to do amputation [...] [START ON 05/03/2021] ceFAZolin, 2 g, intravenous, SCHOOL LIBRARIAN TO O.R. cefTRIAXone (ROCEPHIN) IVPB (2 g [...] or concerns. Malik Cain MD Dermatology, PGY-3 #[id number] 05/02/2021 19:31 Attestation Statement: I saw and examined the patient with the resident/fellow. I agree with the findings and plan of care documented in the resident's/fellow's note. Ramila Mcnamara MD Dermatology [facility] Eren Garner, DO - 04/28/2021 [...] mL syringe ??? HYDROmorphone 1 mg/ml (DILAUDID) MARKETING COMMUNICATIONS ASSOCIATE syringe, 30 ml intravenous CONTINUOUS ??? ibuprofen [...] podiatry team. Patient followed closely by podiatry [place] who plans to do an amputation of [...] stop day 21 May. Patient lives in [facility] and can follow-up with her PCM 2. Follow-up with psychiatric social worker in [place] upon discharge who plans to do amputation of left great toe per her report. Eren Tavarez DO Pager [phone] Infectious Diseases Attending FWhEren romo DO - 04/26/2021 1426 EST INFECTIOUS DISEASES [...] 04/27/2021] ceFAZolin (ANCEF) syringe 2 g intravenous SCHOOL LIBRARIAN TO O.R. ??? cefTRIAXone (ROCEPHIN) 2,000 mg [...] next blood draw Eren Tavarez DO Pager [phone] Infectious Diseases Attending Aubrey Mar MD - [...] redness with pain. She was seen at [facility] and a CT showed fluid around [...] of Bacteremia due to Staphylococcus aureus, Cocaineabuse ([facility]), DVT (deep venous thrombosis) ([facility]) ([facility]), Hepatitis C antibody positive in blood, Iron deficiency anemia, Polysubstance abuse ([facility]) ([facility]), Retained foreign body, and Skin abscess. Past Surgical History: has a past surgical history that includes Ectopic surgery; Abdominal exploration surgery; vascular surgery (Right, 06/29/2017); below knee amputation (Right); and Hand surgery. Medications: MAR reviewed. Anti-infectives: Ceftriaxone 2 g day D3 / Vancomycin D3 Allergies: Patient has no known allergies. 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 [JUN Hold] acetaminophen (TYLENOL) tablet 650 mg, 650 mg, oral, Q6H PRN, Gigi Ramos MD, 650 mg at 04/23/21 2994 ??? atropine 0.1 mg/mL syringe 0.5 mg, 0.5 mg, intravenous, PRN, Pako Walden AA ??? [JUN Hold] buprenorphine-naloxone (SUBOXONE) 2-0.5 mg sublingual [...] at 04/23/212031 ??? HYDROmorphone 1 mg/ml (DILAUDID) MARKETING COMMUNICATIONS ASSOCIATE syringe, 30 ml, , intravenous, MARKETING COMMUNICATIONS ASSOCIATE, Ruthie Main DO, New Bag at 04/23/212026 [...] injection 10 mg, 10 mg, intravenous, PRN, Giherbs, Pako, AA ??? naloxone (NARCAN) injection 0.2 mg, 0.2 mg, intravenous, PRN, Yulys, Pako, AA ??? ondansetron (PF) (ZOFRAN) injection 4 mg, 4 mg, intravenous, PRN, Giherbs, Pako, AA ??? [JUN Hold] vancomycin (VANCOCIN) [...] the patient is sedated). Tizanidine is an wvemh-8-nwoxszie like dexmedetomidine which may helpwith anxiety, sleep, [...] duration of opioid use for specific surgeries: [employer] Website) ??? Patient Controlled Analgesia (MARKETING COMMUNICATIONS ASSOCIATE): Start hydromorphone .4 mg per demand 10 [...] of this patient. Please contact us (pager #[phone]) with any questions or concerns. Ruthie Main DO 04/23/2021 20:42 Associated attestation - Rosie Myers MD - 05/03/2021 1049 EST Attestation statement: I performed or was present during the joseph or critical portions of the visit and participated in the management of the patient. I agree with the findings and plan of care documented in the resident's/fellow's note. 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 Kev Hughes MD / AM Confirmation: [id number] Dictation ID: [id number] cc: R Surgeon - Shane Cuevas MD - 04/30/2021 0000 EST OPERATIVE REPORT SERVICE DATE: 04/30/2021 PREOPERATIVE DIAGNOSIS: Right hand volar wound. POSTOPERATIVE DIAGNOSIS: Right hand volar wound. PROCEDURE: Right palm and proximal forearm volar wound irrigation and debridement of the carpal tunnel. SURGEON: Shane Cuevas MD APPLICATION INTEGRATION ARCHITECT: Reddy Jerome MD, PGY1 ANESTHESIA: General endotracheal. [...] drains retained. Shane Cuevas MD / Confirmation: [id number] Dictation ID: [id number] cc: R Surgeon - Stone Bansal MD - 04/27/2021 0000 EST OPERATIVE REPORT SERVICE DATE: 04/27/2021 SURGEON: Stone Bansal MD APPLICATION INTEGRATION ARCHITECT: AUBREE Hartley-Certified (No ACGME qualified resident was available to assist because of duty hour restrictions. Because of the complexity of the case, as indicated in the Procedure section; and described in detail in the Narrative section below, I requested AUBREE Hartley, to assist. During this procedure, the PA performed the following functions in the operating room: The web production assistant at the time of surgery under [...] Once 9 L had been completed, a [place] drain was placed deep underneath the flexor [...] retained. Stone Bansal MD / CD Confirmation: [id number] Dictation ID: [id number] cc: R Surgeon - Kyle Caballero MD - 04/24/2021 0105 EST OPERATIVE REPORT SERVICE DATE:04/23/2021 SURGEON: Stone Bansal MD APPLICATION INTEGRATION ARCHITECT: MD Kyle Guerrero MD PREOPERATIVE DIAGNOSIS:right open carpal tunnel syndrome POSTOPERATIVE DIAGNOSIS: same PROCEDURE: right open carpal tunnel release ANESTHESIA: General anesthesia FLUIDS:500 cc TOURNIQUET TIME:24 minutes URINE OUTPUT: 0 SPECIMENS: purulent fluid sent for culture COMPLICATIONS: none INDICATIONS: Lindsay Jean Baptiste is a kqziq-[id number] 40-year-old female with past medical history including [...] proximally and distally by palpation with a [place] as well as direct visualization. The median nerve was inspected andwas found to be without further compression. A [place] was gently used to explore the flexor [...] of metal (needle tip) in left groin. MD aware. Tiffany Salazar RN - 04/23/2021 0055 EST C/O increasing right hand pain in MRI. Medicated per order. Maggie Lopez PA-C - 04/22/2021 2225 EST I, Ke Rowland, am scribing for Maggie Dahl PA-C while he/she is personally performing the service. Ke Rowland 04/22/2021 22:26 Lindsay Jean Baptiste is a 40 y.o. female who presents to the ED with hand pain. The patient was transferred to [facility] from [facility] over concern over right hand [...] wound to the left foot. Agree with AUBREE plan for antibiotics, orthopedic consultation, and admission. [...] decision making. Yovany Cr PA-C - 04/22/2021 8918 EST Emergency Department Visit Chief Complaint Hand Pain (BIBEMS tx from [facility]. R hand red, swollen and streaking up [...] today with Hand Pain (BIBEMS tx from [facility]. R hand red, swollen and streaking up forearm. ulceration on left foot. hx IVDU, denies current use. limited ROM in L am. elevated WBCs, lactic WNL) and Diabetic Foot Infection Patient is transferred from [facility] for concern about right hand [...] few days. She was seen yesterday at [facility] was found to be febrile with a leukocytosis. She had blood cultures collected, was started on vancomycin andceftriaxone. CT scan of the right upper extremity showed fluid around the right hand flexor tendons,concerning for flexor tenosynovitis. Original plan was to transfer to [facility], but this fell through and patient was accepted by [facility] orthopedics for evaluation. Patient takes Suboxone, states [...] of any of her fingers. Redness extends penitentiary up the medial forearm, otherwise stops justproximal [...] and stool. On Room air. On a MARKETING COMMUNICATIONS ASSOCIATE dilauded pump. BKKadie RLE. Action: Head to [...] closed. States pain is a tolerable 08/07. [facility]. CINDY JAMES LPN 05/04/2021 3:06 rief Op Note - Soni Tirado PA-C - 05/03/2021 1036 EST Date: 04/22/2021 - 05/03/2021 Location: [facility] OR Name: Lindsay Jean Baptiste, : 1980, Diagnosis Pre-Op Diagnosis Codes: * Right arm cellulitis [L03.113] * Acute carpal tunnel syndrome, right [G56.01] Post-op Diagnosis * Right arm cellulitis [L03.113] * Acute carpal tunnel syndrome, right [G56.01] Procedures right hand irrigation and debridement with closure 16378 - HI DEBRIDEMENT, SKIN, SUB-Q TISSUE,MUSCLE,EACH ADD 20 SQ [...] 14 min Rt arm @ 250mmHg Staff: Insights Analyst: Sal Tubbs RN Scrub Person: Nya Balbuena Patient Marketing Specialist: Ozzie Lizama Indications: Lindsay Jean Baptiste is [...] for the entire procedure Kev Hughes MD Slwchoxrlhxycu signed by Soni Tirado PA-C at 05/03/2021 10:38 ESTPlan of Care - Cindy James LPN - 05/03/2021 0309 EST Problem: Daily Care Plan Goals Goal: Care Plan Documentation Flowsheets Taken 05/02/2021 0000 by Anyi Orellana RN Area of Focus: Pain/ Comfort Taken 05/01/2021 225 by Viviane Cole RN Goal This Shift: Patient will have adequate pain management at this shift. Note: Data: Assumed care of Pt at 1900 Pt A&Ox3 Denies CP/SOB/N/V/D/GUILLEN. Pt is independent to commode. Continent of urine and stool. On Room air. On a MARKETING COMMUNICATIONS ASSOCIATE dilauded pump. BKA RLE. Currently NPO for [...] Goal: Care Plan Documentation Flowsheets (Taken 05/01/2021 225) Goal This Shift: Patient will have adequate pain management at this shift. Note: D: Patient admitted with R arm cellulitis, ID done, patient still experiencing pain rated 6/10. A :The wound at R arm looks clean , patient has pain med per eMAR, she is on dilaudid MARKETING COMMUNICATIONS ASSOCIATE we are clear up Q 2 . Patient has her hand elevated. R : Patient is able to move her fingers, the pain seems well controled by MARKETING COMMUNICATIONS ASSOCIATE, non grimaces or moaning, will continue to [...] touch with minimal movement of right fingers. MARKETING COMMUNICATIONS ASSOCIATE dilaudid and ketamine drip in place for [...] Independent to commode. Ketamine gtt and dilaudid MARKETING COMMUNICATIONS ASSOCIATE. Action: Scheduled medications and PRN Benadryl and [...] cellulitis Procedure(s): Complex I&D UE Wound (CPT 13851) Findings: No purulence or evidence of necrotic [...] 1 cm of the volar wound. Staff: Insights Analyst: Tamika Cox RN Scrub Person: Goldie Barry RN Patient Marketing Specialist: Gui Livingston Disposition and Condition: PACU in [...] her right arm /fingers. Pt is on MARKETING COMMUNICATIONS ASSOCIATE dilaudid and Ketamine drip for pain management [...] on continuous IVKetamine infusion and IV Dilaudid MARKETING COMMUNICATIONS ASSOCIATE. C/O 5-6/10 right wrist pain intermittently throughout [...] on Ketamine drip as well as Dilaudid MARKETING COMMUNICATIONS ASSOCIATE with verbalized effect. Dressing and splint clean, [...] CATRACHITA BARNETT RN 04/28/2021 15:24 lan of Cruz - Catrachita Barnett RN - 04/27/2021 1738 [...] Continuous Ketamine infusion as well as Dilaudid MARKETING COMMUNICATIONS ASSOCIATE with verbalized positive effect. Dressing clean, dry, [...] 0909 EST Date: 04/22/2021 - 04/27/2021 Location: [facility] OR Name: Lindsay Jean Baptiste, : 1980, Diagnosis Pre-Op Diagnosis Codes: * Right arm cellulitis [L03.113] Post-op Diagnosis * Right arm cellulitis [L03.113] Procedures COMPLEX INCISION AND DRAINAGE, WOUND, UPPER EXTREMITY 14375 - HI COMPLEX DRAINAGE, WOUND Surgeons * Stone Bansal MD - Primary Flako MAK web production assistant Procedure Summary Anesthesia: General ASA: III [...] Wound 04/23/21 Incision Right;Anterior Wrist (Active) Staff: Insights Analyst: Sal Tubbs RN Scrub Person: Christiano Reyes; Mendel Chavez LNA Patient Marketing Specialist: Sourav Garcia Indications: Lindsay Jean Baptiste is [...] for the entire procedure Stone Bansal MD [id number] signed by Sarah Monet PA-C at 04/27/2021 [...] and using bedside commode. NWB on RUE. 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 Going to [facility] after midnight for I&D with potential wound closure tomorrow. C/o pain 6-8/10 on RUE. Reported ear ringing this morning. MD aware. Stop ketamine drip for 1 hr per MD order. Action: Administered medications as per ordered. Given PRN dilaudid, ibuprofen and scheduled tylenol,MARKETING COMMUNICATIONS ASSOCIATE ketamine for pain. Hourly checks and monitor [...] she states a wound care clinic in [place] has been tending to her chronic wound [...] pillow routinely. 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 Response: pt removed [...] Ketamine drip @ 1.5 mL/hr and Dilaudid MARKETING COMMUNICATIONS ASSOCIATE in place. 3x R-sided IJ in place, continuous LR running @ 75 mL/hr. Pt NPO at midnight pending surgery on RUE today. Pt denies chest pain, SOB, N/V, or headache at this time. Action: Assessment complete, medicated per JUN- new Dilaudid and Ketamine syringes, rates [id number]. Hourly rounding complete, clustered care to promote [...] continuous Ketamine infusions as well as Dilaudid MARKETING COMMUNICATIONS ASSOCIATE through right CVC. Continues on IV antibiotic therapy with tolerance. Voided large amount of clear odorless urine at 0245 without difficulty. Complaints of 6/10 discomfort. Action: Medications administered as ordered, see MAR. Care clustered to promote sleep and comfort. Response: In bed with eyes closed. CATRACHITA BARNETT RN 04/24/2021 3:23 harmacy Note - Alethea Pacheco [facility] - 04/24/2021 0307 EST Pharmacy Note: Vancomycin [...] Surgeon: Stone Bansal MD, Sourav Bolden MD Can Filling Machine Operator: Kyle Caballero MD Anesthesia Type: General Tourniquet [...] of left great toe, unspecified ulcer stage ([facility]) (HCC) AMB CONS/FOLLOW UP Outpatient Urgent Skin [...] EST procedure are in the results section. CRYOGLOBULIN, SERUM Routine 05/03/2021 6:14 Resul ts [...] TUR tubing, cultu res HEPATITIS A ANTIBODY IGM Today 04/27/2021 5:30 EST Results for this procedure are i n the results section . HEPATITIS A TOTAL ANTIBODY W Routine 04/27/2021 5:30 EST Results for this REFLEX procedure are i n the results section . HEPATITIS B CORE ANTIBODY Routine 04/27/2021 5:30 EST Results for this (TOTAL) procedure are i n the results section . HEPATITIS B SURFACE ANTIBODY Routine 04/27/2021 5:30 EST Results for this procedure are i n the results section . HEPATITIS B SURFACE ANTIGEN Routine 04/27/2021 5:30 EST Results for this procedure are i n the results section . COMPLETE BLOOD COUNT AND Routine 04/27/2021 5:30 EST Results for this DIFFERENTIAL procedure are i n the results section . HIV 1/2 ANTIGEN AND ANTIBODY, Routine 04/27/2021 5:30 EST Results for this 4TH GENERATION procedure are in the results section . BASIC METABOLIC PANEL (BMP) Routine 04/27/2021 5:30 EST Results for this procedure are i n the results section . COVID-19 TEST [facility] PCR Today 04/26/2021 11:20 EST COVID-19 TESTING Routine 04/26/2021 11:20 EST Res ults for this procedure are i n the results section . BASIC METABOLIC PANEL (BMP) Routine 04/26/2021 6:19 EST Results for this procedure are i n the results section . COMPLETE BLOOD COUNT AND Routine 04/26/2021 6:18 EST Results for this DIFFERENTIAL procedure are i n the results section . COMPLETE BLOOD COUNT AND Routine 04/25/2021 6:16 EST Results for this DIFFERENTIAL procedure are i n the results section . BASIC METABOLIC PANEL (BMP) Routine 04/25/2021 6:15 EST Results for this procedure are i n the results section . COMPLETE BLOOD COUNT AND Routine 04/24/2021 6:14 EST Results for this DIFFERENTIAL procedure are i n the results section . BASIC METABOLIC PANEL (BMP) Routine 04/24/2021 6:13 EST Results for this procedure are i n the results section . VANCOMYCIN TROUGH Timed 04/24/2021 0:27 EST Res ults for this procedure are i n the results section . ANAEROBE CULTURE/SMEAR(INC. Routine 04/23/2021 19:53 EST Results for this AEROBES), OTHER procedure ar e in the results section . TEST, URINE STAT 04/23/2021 18:31 EST Results for this procedure are i n the results section . COMPREHENSIVE METABOLIC PANEL Routine 04/23/2021 9:20 EST Results for this (CMP) procedure are i n the results section . COMPLETE BLOOD COUNT AND Routine 04/23/2021 6:50 EST Results for this DIFFERENTIAL procedure are i n the results section . MAGNESIUM Add-On 04/23/2021 6:50 EST Results for this procedure are i n the results section . BASIC METABOLIC PANEL (BMP) Routine 04/23/2021 6:50 EST Results for this procedure are i n the results section . COVID-19 TEST [facility] PCR Today 04/23/2021 2:53 EST COVID-19 TESTING Routine 04/23/2021 2:53 EST Resu lts for this procedure are i n the results section . CK STAT 04/23/2021 1:57 EST Results for this procedure are i n the results section . XR WRIST RIGHT 3 OR MORE STAT 04/22/2021 18:58 EST Results for this VIEWS procedure are i n the results section . XR FOOT LEFT 3 OR MORE VIEWS STAT 04/22/2021 18:57 EST Results for this procedure are i n the results section . XR FOREARM RIGHT 2 VIEWS STAT 04/22/2021 18:56 EST Results for this procedure are i n the results section . XR HAND RIGHT 3 OR MORE VIEWS STAT 04/22/2021 18:55 EST Results for this procedure are i n the results section . LACTIC ACID STAT 04/22/2021 16:39 EST Results for this procedure are i n the results section . COMPLETE BLOOD COUNT AND STAT 04/22/2021 16:39 EST Results for this DIFFERENTIAL procedure are i n the results section . BASIC METABOLIC PANEL (BMP) STAT 04/22/2021 16:39 EST Results for this procedure are i n the results section . CT OUTSIDE IMAGES MSK Routine 04/22/2021 13:22 EST Results for this procedure are i n the results section . documented in this encounter Results (ABNORMAL) DIFFERENTIAL MANUAL (05/04/2021 5:52 EST) Neutrophils 57.0 % [facility] Lymphocytes 31.0 % [facility] Atypical Lymphocytes 3.0 % [facility] Monocytes 6.0 % [facility] Eosinophils 3.0 % [facility] Absolute Neutrophils 1.11 (L) 2.20 - 8.85 [facility] LABORATORY SERVICES Absolute Lymphocytes 0.60 (L) 1.09 - 3.[address] [facility] K/[facility] LABORATORY SERVICES Absolute Atypical 0.06 /m [facility] Lymphocytes LABORATORY SERVICES Absolute Monocytes 0.12 0.10 - 0.[address] [facility] K/[facility] LABORATORY SERVICES Absolute Eosinophils 0.06 0.03 - 0.[address] [facility] K/[facility] LABORATORY SERVICES Specimen Blood - Venous blood (substance) Performing Organization Address City/State/ZIP Code Phon e Number [facility] [address] [place] [address] SERVICES (ABNORMAL) COMPLETE BLOOD COUNT AND DIFFERENTIAL (05/04/2021 5:52 EST) Pathologist Sig nature WBC 1.95 (L) 4.00 - 12.[address] [facility] K/[facility] LABORATORY SERVICES RBC 3.29 (L) 3.86 - 5.[address] [facility] M/[facility] LABORATORY SERVICES Hemoglobin 8.9 (L) 11.6 - 15.[address] [facility] gm/dL LABORATORY SERVICES HCT 29.1 (L) 34.9 - 44.4 % [facility] MCV 88 81 - [address] [facility] MCH 27.1 26.7 - 33.[address] [facility] MCHC 30.6 (L) 32.1 - 35.[address] [facility] gm/dL LABORATORY SERVICES RDW-CV 12.7 <14.7 % [facility] RDW-SD 41.6 <50.[address] [facility] PLT 218 141 - 377 K/cmm [facility] MPV 10.6 9.5 - 12.[address] [facility] Type of Manual [facility] Differential: LABORATORY SERVICES Specimen Blood - Venous blood (substance) Performing Organization Address City/[facility]/ZIP Code Phon e Number [facility] [address] [place] [address] SERVICES BASIC METABOLIC PANEL (BMP) (05/04/2021 5:51 EST) Pathologist Sig nature Sodium 137 136 - 145 mmol/L [facility] Potassium 4.2 3.5 - 5.0 mmol/L [facility] Chloride 99 96 - 110 mmol/L [facility] CO2 Total 29 22 - 32 mmol/L [facility] Anion Gap 9 8 - [address] [facility] Glucose 97 70 - 100 mg/dL [facility] Calcium 8.5 8.5 - 10.5 mg/dL [facility] BUN 17 10 - 26 mg/dL [facility] Creatinine 0.59 0.52 - 1.04 mg/dL [facility] eGFR 117 >60 mL/min/1.73m2 [facility] Specimen Blood - Venous blood (substance) Performing Organization Address City/[facility]/ZIP Code Phon e Number [facility] [address] [place] [address] SERVICES TRANSTHORACIC ECHO (TTE) COMPLETE W/DOPPLER W/CF [...] 6:14 EST) Cryoglobulin, S Negative Negative %ppt [facility] Comment: LABORATORIES This test is negative at 24 hours. All samples are hel d and reviewed again at 7 days. If delayed precipitation occ urs after 7 days, Immunofixation will be performed and an additional report will follow. Test Performed by: [facility] [address] [place] [address] Conservation Engineer: Jake Cordova M.D. Ph.D.; CLIA# [id number] Specimen Blood - Venous blood (substance) Performing Organization Address City/[facility]/ZIP Code Phon e Number [facility]ORATORIES [address] [place] [address] HOLD RED TOP (05/03/2021 5:43 EST) Pathologist Sig nature Hold Hold [facility] LABORATOR Y SERVICES Specimen Blood - Venous blood (substance) Performing Organization Address City/[facility]/ZIP Code Phon e Number [facility] [address] [place] [address] SERVICES HOLD RED TOP (05/03/2021 5:42 EST) Pathologist Sig nature Hold Hold [facility] LABORATOR Y SERVICES Specimen Blood - Venous blood (substance) Performing Organization Address [facility] Phon e Number [facility] [address] [place] [address] SERVICES (ABNORMAL) BASIC METABOLIC PANEL (BMP) (05/03/2021 5:25 EST) Pathologist Sig nature Sodium 137 136 - 145 mmol/L [facility] Potassium 4.2 3.5 - 5.0 mmol/L [facility] Chloride 98 96 - 110 mmol/L [facility] CO2 Total 29 22 - 32 mmol/L [facility] Anion Gap 10 8 - [address] [facility] Glucose 111 (H) 70 - 100 mg/dL [facility] Calcium 9.0 8.5 - 10.5 mg/dL [facility] BUN 21 10 - 26 mg/dL [facility] Creatinine 0.69 0.52 - 1.04 mg/dL [facility] eGFR 111 >60 mL/min/1.73m2 [facility] Specimen Blood - Venous blood (substance) Performing Organization Address [facility] Phon e Number [facility] [address] [place] [address] SERVICES (ABNORMAL) COMPLETE BLOOD COUNT AND DIFFERENTIAL (05/03/2021 5:24 EST) WBC 2.37 (L) 4.00 - 12.[address] [facility] LABORATORY SERVICES RBC 3.41 (L) 3.86 - 5.04 [facility] LABORATORY SERVICES Hemoglobin 9.7 (L) 11.6 - 15.[address] [facility] gm/dL LABORATORY SERVICES HCT 29.4 (L) 34.9 - 44.4 % [facility] SERVICES MCV 86 81 - [address] [facility] SERVICES MCH 28.4 26.7 - 33.[address] [facility] SERVICES MCHC 33.0 32.1 - 35.[address] [facility] gm/dL LABORATORY SERVICES RDW-CV 13.0 <14.7 % [facility]ATORY SERVICES RDW-SD 40.5 <50.[address] [facility]ORATORY SERVICES PLT 236 141 - 377 K/[facility] LABORATORY SERVICES MPV 10.9 9.5 - 12.[address] [facility] SERVICES Neutrophils 63.7 % [facility] Lymphocytes 20.7 % [facility] Monocytes 12.7 % [facility] Eosinophils 0.8 % [facility] Basophils 0.8 % [facility] Immature Grans 1.3 % [facility] Absolute Neutrophils 1.51 (L) 2.20 - 8.[address] [facility] LABORATORY SERVICES Absolute Lymphocytes 0.49 (L) 1.09 - 3.[address] [facility] LABORATORY SERVICES Absolute Monocytes 0.30 0.10 - 0.[address] [facility] LABORATORY SERVICES Absolute Eosinophils 0.02 (L) 0.03 - 0.[address] [facility] LABORATORY SERVICES Absolute Basophils 0.02 0.01 - 0.[address] [facility] LABORATORY SERVICES Absolute Immature 0.03 0.00 - 0.[address] [facility] Grans [facility] LABORATORY SERVICES Type of Differential: Auto [facility] SERVICES Specimen Blood - Venous blood (substance) Performing Organization Address City/State/ZIP Code Phon e Number [facility] [address] [place] [address] SERVICES BACTERIAL CULTURE, BLOOD (05/02/2021 16:26 EST) Pathologist Sig nature Organism ID No Growth at [address] [facility] SERVICES Specimen Blood - Venous blood (substance) Performing Organization Address [facility]/ZIP Code Phon e Number [facility] [address] [place] [address] SERVICES BACTERIAL CULTURE, BLOOD (05/02/2021 16:26 EST) Pathologist Sig nature Organism ID No Growth at [address] [facility] SERVICES Specimen Blood - Venous blood (substance) Performing Organization Address [facility]/ZIP [facility] Phon e Number [facility] [address] [place] [address] SERVICES FERRITIN (05/02/2021 6:05 EST) Pathologist Sig nature Ferritin 61 10 - 291 ng/mL [facility] LABORAT ORY SERVICES Specimen Blood - Venous blood (substance) Performing Organization Address [facility]/ZIP [facility] Phon e Number [facility] [address] [place] [address] SERVICES IBC (05/02/2021 6:05 EST) Pathologist Sig nature Iron Binding 320 265 - 497 ??g/dL [facility] [employer] LABORATORY SERVICES Specimen Blood - Venous blood (substance) Performing Organization Address City/[facility]/ZIP Code Phon e Number [facility] [address] [place] [address] SERVICES IRON (05/02/2021 6:05 EST) Pathologist Sig nature Iron 39 37 - 170 ??g/dL [facility] LABORA TORY SERVICES Specimen Blood - Venous blood (substance) Performing Organization Address [facility]/ZIP [facility] Phon e Number [facility] [address] [place] [address] SERVICES (ABNORMAL) BASIC METABOLIC PANEL (BMP) (05/02/2021 6:05 EST) Pathologist Sig nature Sodium 135 (L) 136 - 145 mmol/L [facility] SERVICES Potassium 4.0 3.5 - 5.0 mmol/L [facility] SERVICES Chloride 98 96 - 110 mmol/L [facility] SERVICES CO2 Total 29 22 - 32 mmol/L [facility] SERVICES Anion Gap 8 8 - [address] [facility] SERVICES Glucose 93 70 - 100 mg/dL [facility] SERVICES Calcium 8.9 8.5 - 10.5 mg/dL [facility] SERVICES BUN 19 10 - 26 mg/dL [facility] Creatinine 0.64 0.52 - 1.04 mg/dL [facility] SERVICES eGFR 114 >60 mL/min/1.73m2 [facility] SERVICES Specimen Blood - Venous blood (substance) Performing Organization Address City/State/ZIP Code Phon e Number [facility] [address] [place] [address] SERVICES (ABNORMAL) COMPLETE BLOOD COUNT AND DIFFERENTIAL (05/02/2021 6:05 EST) WBC 4.30 4.00 - 12.40 [facility] LABORATORY SERVICES RBC 3.24 (L) 3.86 - 5.04 [facility] LABORATORY SERVICES Hemoglobin 8.9 (L) 11.6 - 15.[address] [facility] gm/dL LABORATORY SERVICES HCT 29.2 (L) 34.9 - 44.4 % [facility]ORATORY SERVICES MCV 90 81 - [address] [facility] SERVICES MCH 27.5 26.7 - 33.[address] [facility]ATORY SERVICES MCHC 30.5 (L) 32.1 - 35.[address] [facility] gm/dL LABORATORY SERVICES RDW-CV 12.7 <14.7 % [facility]ORATORY SERVICES RDW-SD 41.8 <50.[address] [facility]ORATORY SERVICES PLT 220 141 - 377 K/[facility] LABORATORY SERVICES MPV 10.4 9.5 - 12.[address] [facility] SERVICES Neutrophils 76.9 % [facility] SERVICES Lymphocytes 9.8 % [facility] Monocytes 10.0 % [facility] Eosinophils 1.2 % [facility] Basophils 0.7 % [facility] Immature Grans 1.4 % [facility] SERVICES Absolute Neutrophils 3.31 2.20 - 8.[address] [facility] LABORATORY SERVICES Absolute Lymphocytes 0.42 (L) 1.09 - 3.[address] [facility] LABORATORY SERVICES Absolute Monocytes 0.43 0.10 - 0.[address] [facility] LABORATORY SERVICES Absolute Eosinophils 0.05 0.03 - 0.[address] [facility] LABORATORY SERVICES Absolute Basophils 0.03 0.01 - 0.[address] [facility] LABORATORY SERVICES Absolute Immature 0.06 0.00 - 0.[address] [facility] Grans K/[facility] LABORATORY SERVICES Type of Differential: Auto [facility]ATORY SERVICES Specimen Blood - Venous blood (substance) Performing Organization Address [facility]/ZIP Code Phon e Number [facility] [address] [place] [address] SERVICES (ABNORMAL) BASIC METABOLIC PANEL (BMP) (05/01/2021 5:32 EST) Pathologist Sig nature Sodium 137 136 - 145 mmol/L [facility] SERVICES Potassium 4.8 3.5 - 5.0 mmol/L [facility] SERVICES Chloride 98 96 - 110 mmol/L [facility] SERVICES CO2 Total 29 22 - 32 mmol/L [facility] SERVICES Anion Gap 10 8 - [address] [facility] SERVICES Glucose 100 70 - 100 mg/dL [facility] SERVICES Calcium 9.1 8.5 - 10.5 mg/dL [facility] SERVICES BUN 28 (H) 10 - 26 mg/dL [facility] Creatinine 0.72 0.52 - 1.04 mg/dL [facility] SERVICES eGFR 107 >60 mL/min/1.73m2 [facility] SERVICES Specimen Blood - Venous blood (substance) Performing Organization Address [facility]/ZIP Code Phon e Number [facility] [address] [place] [address] SERVICES (ABNORMAL) COMPLETE BLOOD COUNT AND DIFFERENTIAL (05/01/2021 5:32 EST) WBC 6.24 4.00 - 12.[address] [facility] K/[facility] LABORATORY SERVICES RBC 3.36 (L) 3.86 - 5.04 [facility] LABORATORY SERVICES Hemoglobin 9.6 (L) 11.6 - 15.[address] [facility] gm/dL LABORATORY SERVICES HCT 29.5 (L) 34.9 - 44.4 % [facility] LABORATORY SERVICES MCV 88 81 - [address] [facility]ORY SERVICES MCH 28.6 26.7 - 33.[address] [facility]ORY SERVICES MCHC 32.5 32.1 - 35.[address] [facility] gm/dL LABORATORY SERVICES RDW-CV 12.9 <14.7 % [facility]ATORY SERVICES RDW-SD 41.1 <50.[address] [facility]ORY SERVICES PLT 351 141 - 377 K/cmm [facility] SERVICES MPV 9.8 9.5 - 12.[address] [facility] SERVICES Neutrophils 74.3 % [facility] Lymphocytes 12.7 % [facility] Monocytes 7.7 % [facility] Eosinophils 2.6 % [facility] Basophils 0.8 % [facility] [facility] Immature Grans 1.9 % [facility] Absolute Neutrophils 4.64 2.20 - 8.[address] [facility] LABORATORY SERVICES Absolute Lymphocytes 0.79 (L) 1.09 - 3.[address] [facility] LABORATORY SERVICES Absolute Monocytes 0.48 0.10 - 0.[address] [facility] LABORATORY SERVICES Absolute Eosinophils 0.16 0.03 - 0.[address] [facility] LABORATORY SERVICES Absolute Basophils 0.05 0.01 - 0.[address] [facility] LABORATORY SERVICES Absolute Immature 0.12 (H) 0.00 - 0.[address] [facility] Grans /[facility] LABORATORY SERVICES Type of Differential: Auto [facility] Specimen Blood - Venous blood (substance) Performing Organization Address City/[facility]/ZIP Code Phon e Number [facility] [address] [place] [address] SERVICES BASIC METABOLIC PANEL (BMP) (04/30/2021 5:42 EST) Pathologist Sig nature Sodium 138 136 - 145 mmol/L [facility] Potassium 4.8 3.5 - 5.0 mmol/L [facility] Chloride 98 96 - 110 mmol/L [facility] CO2 Total 29 22 - 32 mmol/L [facility] Anion Gap 11 8 - [address] [facility] Glucose 99 70 - 100 mg/dL [facility] Calcium 9.4 8.5 - 10.5 mg/dL [facility] BUN 24 10 - 26 mg/dL [facility] Creatinine 0.69 0.52 - 1.04 mg/dL [facility] eGFR 111 >60 mL/min/1.73m2 [facility] Specimen Blood - Venous blood (substance) Performing Organization Address City/State/ZIP Code Phon e Number [facility] [address] [place] [address] SERVICES (ABNORMAL) COMPLETE BLOOD COUNT AND DIFFERENTIAL (04/30/2021 5:41 EST) WBC 7.18 4.00 - 12.40 [facility] LABORATORY SERVICES RBC 3.65 (L) 3.86 - 5.04 [facility] LABORATORY SERVICES Hemoglobin 10.1 (L) 11.6 - 15.[address] [facility] gm/dL LABORATORY SERVICES HCT 32.9 (L) 34.9 - 44.4 % [facility] MCV 90 81 - [address] [facility] MCH 27.7 26.7 - 33.[address] [facility] MCHC 30.7 (L) 32.1 - 35.[address] [facility] gm/dL LABORATORY SERVICES RDW-CV 13.0 <14.7 % [facility] SERVICES RDW-SD 42.9 <50.[address] [facility] SERVICES PLT 359 141 - 377 /[facility] LABORATORY SERVICES MPV 9.9 9.5 - 12.[address] [facility] SERVICES Neutrophils 64.6 % [facility] Lymphocytes 19.5 % [facility] Monocytes 8.1 % [facility] Eosinophils 2.9 % [facility] Basophils 0.7 % [facility] Immature Grans 4.2 % [facility] Absolute Neutrophils 4.64 2.20 - 8.[address] [facility] LABORATORY SERVICES Absolute Lymphocytes 1.40 1.09 - 3.[address] [facility] LABORATORY SERVICES Absolute Monocytes 0.58 0.10 - 0.[address] [facility] LABORATORY SERVICES Absolute Eosinophils 0.21 0.03 - 0.[address] [facility] LABORATORY SERVICES Absolute Basophils 0.05 0.01 - 0.[address] [facility] LABORATORY SERVICES Absolute Immature 0.30 (H) 0.00 - 0.[address] [facility] Grans [facility] LABORATORY SERVICES Type of Differential: Auto [facility] SERVICES Specimen Blood - Blood sample taken from central line (situation) Performing Organization Address City/State/ZIP Code Phon e Number [facility] [address] [place] [address] SERVICES COVID-19 TEST [facility] LAB PCR (04/29/2021 15:26 EST) Specimen Swab - Entire nasopharynx (body structur e) Performing Organization Address [facility] Phon e Number [facility] [address] [place] [address] SERVICES COVID-19 TESTING (04/29/2021 15:26 EST) COVID-19 rt-PCR Negative Negative [facility] Result Comment: [facility] This test [...] and epidemiological informatio n. Performed on the [employer] [place] Fusion instrument Performing Lab [place] [facility] Lab [facility] SERVICES Specimen Swab - Entire nasopharynx (body structur e) Performing Organization Address City/[facility] Phon e Number [facility] [address] [place] [address] SERVICES BASIC METABOLIC PANEL (BMP) (04/29/2021 5:38 EST) Pathologist Sig nature Sodium 137 136 - 145 mmol/L [facility] SERVICES Potassium 4.7 3.5 - 5.0 mmol/L [facility] Chloride 99 96 - 110 mmol/L [facility] SERVICES CO2 Total 29 22 - 32 mmol/L [facility] SERVICES Anion Gap 9 8 - [address] [facility] SERVICES Glucose 99 70 - 100 mg/dL [facility] SERVICES Calcium 9.3 8.5 - 10.5 mg/dL [facility] SERVICES BUN 18 10 - 26 mg/dL [facility] SERVICES Creatinine 0.60 0.52 - 1.04 mg/dL [facility] eGFR 116 >60 mL/min/1.73m2 [facility] SERVICES Specimen Blood - Venous blood (substance) Performing Organization Address City/State/ZIP Code Phon e Number [facility] [address] [place] [address] SERVICES (ABNORMAL) COMPLETE BLOOD COUNT AND DIFFERENTIAL (04/29/2021 5:38 EST) WBC 10.20 4.00 - 12.[address] [facility] LABORATORY SERVICES RBC 3.45 (L) 3.86 - 5.04 [facility] LABORATORY SERVICES Hemoglobin 9.8 (L) 11.6 - 15.[address] [facility] gm/dL LABORATORY SERVICES HCT 30.2 (L) 34.9 - 44.4 % [facility]ORATORY SERVICES MCV 88 81 - [address] [facility] SERVICES MCH 28.4 26.7 - 33.[address] [facility]ORY SERVICES MCHC 32.5 32.1 - 35.[address] [facility] gm/dL LABORATORY SERVICES RDW-CV 13.1 <14.7 % [facility] SERVICES RDW-SD 41.3 <50.[address] [facility]OR[facility]ORY SERVICES PLT 312 141 - 377 K/[facility] LABORATORY SERVICES MPV 9.9 9.5 - 12.[address] [facility] SERVICES Neutrophils 74.9 % [facility] SERVICES Lymphocytes 12.2 % [facility] Monocytes 7.5 % [facility] Eosinophils 2.8 % [facility] Basophils 0.5 % [facility] Immature Grans 2.1 % [facility] SERVICES Absolute Neutrophils 7.64 2.20 - 8.[address] [facility] LABORATORY SERVICES Absolute Lymphocytes 1.24 1.09 - 3.[address] [facility] LABORATORY SERVICES Absolute Monocytes 0.77 0.10 - 0.[address] [facility] LABORATORY SERVICES Absolute Eosinophils 0.29 0.03 - 0.[address] [facility] LABORATORY SERVICES Absolute Basophils 0.05 0.01 - 0.[address] [facility] K/[facility] LABORATORY SERVICES Absolute Immature 0.21 (H) 0.00 - 0.[address] [facility] Grans K/[facility] LABORATORY SERVICES Type of Differential: Auto [facility] SERVICES Specimen Blood - Venous blood (substance) Performing Organization Address [facility]/ZIP [facility] Phon e Number [facility] [address] [place] [address] SERVICES BASIC METABOLIC PANEL (BMP) (04/28/2021 7:43 EST) Pathologist Sig nature Sodium 139 136 - 145 mmol/L [facility] SERVICES Potassium 4.6 3.5 - 5.0 mmol/L [facility] SERVICES Chloride 99 96 - 110 mmol/L [facility] SERVICES CO2 Total 28 22 - 32 mmol/L [facility] SERVICES Anion Gap 12 8 - [address] [facility] SERVICES Glucose 99 70 - 100 mg/dL [facility] SERVICES Calcium 8.9 8.5 - 10.5 mg/dL [facility] SERVICES BUN 14 10 - 26 mg/dL [facility] SERVICES Creatinine 0.66 0.52 - 1.04 mg/dL [facility] SERVICES eGFR 112 >60 mL/min/1.73m2 [facility] SERVICES Specimen Blood - Venous blood (substance) Performing Organization Address [facility] Code Phon e Number [facility] [address] [place] [address] SERVICES (ABNORMAL) COMPLETE BLOOD COUNT AND DIFFERENTIAL (04/28/2021 7:03 EST) WBC 9.14 4.00 - 12.[address] [facility] K/[facility] LABORATORY SERVICES RBC 3.41 (L) 3.86 - 5.[address] [facility] M/[facility] LABORATORY SERVICES Hemoglobin 9.6 (L) 11.6 - 15.[address] [facility] gm/dL LABORATORY SERVICES HCT 30.0 (L) 34.9 - 44.4 % [facility] LAB[facility]ATORY SERVICES MCV 88 81 - [address] [facility] SERVICES MCH 28.2 26.7 - 33.[address] [facility]ORY SERVICES MCHC 32.0 (L) 32.1 - 35.[address] [facility] gm/dL LABORATORY SERVICES RDW-CV 13.2 <14.7 % [facility] LABORATORY SERVICES RDW-SD 42.4 <50.[address] [facility] LABORATORY SERVICES PLT 292 141 - 377 K/[facility] LABORATORY SERVICES MPV 10.2 9.5 - 12.[address] [facility] SERVICES Neutrophils 71.1 % [facility] SERVICES Lymphocytes 13.2 % [facility] SERVICES Monocytes 9.4 % [facility] SERVICES Eosinophils 3.1 % [facility] SERVICES Basophils 0.7 % [facility] SERVICES Immature Grans 2.5 % [facility] SERVICES Absolute Neutrophils 6.50 2.20 - 8.[address] [facility] LABORATORY SERVICES Absolute Lymphocytes 1.21 1.09 - 3.[address] [facility] LABORATORY SERVICES Absolute Monocytes 0.86 (H) 0.10 - 0.[address] [facility] LABORATORY SERVICES Absolute Eosinophils 0.28 0.03 - 0.[address] [facility] LABORATORY SERVICES Absolute Basophils 0.06 0.01 - 0.[address] [facility] LABORATORY SERVICES Absolute Immature 0.23 (H) 0.00 - 0.[address] [facility] Grans [facility] LABORATORY SERVICES Type of Differential: Auto [facility] SERVICES Specimen Blood - Blood sample taken from central line (situation) Performing Organization Address City/State/ZIP Code Phon e Number [facility] [address] [place] [address] SERVICES EKG 12-LEAD (04/27/2021 13:19 EST) Specimen Narrative [facility] EKG - 04/28/2021 16:1 0 EST ? [facility] ? Test Date: ?2021-04-27 Pat Name: ? LINDSAY JEAN BAPTISTE ?Department: ?? Pacu ? Room: ? OR Gender: ? Female ? 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 Requested By: SOBIA PATTON L Order Number: [id number] ? Reading MD: ?? DENIS ROSARIO MD ? Measurements Intervals ?Wayan ? Rate: ? 75 ? P: ?39 HI: ? 150 ?QRS: ?9 QRSD: ? 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 Performing Organization Address City/[facility]/ZIP Code Phon e Number [facility] EKG (ABNORMAL) ANAEROBE CULTURE/SMEAR(INC. AEROBES), OTHER (04/27/2021 9:38 EST) Organism ID Rare Streptococcus [facility] dysgalactiae LABORATORY SERVICES (A)Comment: Penicillin and ampicillin are drugs of choice for treatment of beta hemolytic streptococcal infections. Smear No Neutrophils Seen [facility] SERVICES Smear No bacteria seen [facility] SERVICES Specimen Tissue - Soft tissue (navigational christina pt) Performing Organization Address City/State/ZIP Code Phon e Number [facility] [address] [place] [address] SERVICES HEPATITIS A ANTIBODY IGM (04/27/2021 5:30 EST) Pathologist Sig nature Hepatitis A Antibody, Negative Negative [facility] IgM LABORATORY SERVICES Specimen Blood - Venous blood (substance) Narrative [facility] LABORATORY SERVICES - 04/27/2021 11:27 EST The results of this assay can be falsely lowered due to the consumption of Biotin. Performing Organization Address City/[facility]/ZIP Code Phon e Number [facility]ORY [address] [place] [address] SERVICES (ABNORMAL) BASIC METABOLIC PANEL (BMP) (04/27/2021 5:30 EST) Pathologist Sig nature Sodium 138 136 - 145 mmol/L [facility]ORY SERVICES Potassium 4.3 3.5 - 5.0 mmol/L [facility]ORY SERVICES Chloride 100 96 - 110 mmol/L [facility] SERVICES CO2 Total 29 22 - 32 mmol/L [facility]ORATORY SERVICES Anion Gap 9 8 - [address] [facility]ATORY SERVICES Glucose 104 (H) 70 - 100 mg/dL [facility]ORY SERVICES Calcium 8.7 8.5 - 10.5 mg/dL [facility]ORATORY SERVICES BUN 17 10 - 26 mg/dL [facility] SERVICES Creatinine 0.63 0.52 - 1.04 mg/dL [facility] LABORATORY SERVICES eGFR 114 >60 mL/min/1.73m2 [facility]ORATORY SERVICES Specimen Blood - Venous blood (substance) Performing Organization Address City/[facility]/ZIP Code Phon e Number [facility] [address] [place] [address] SERVICES (ABNORMAL) COMPLETE BLOOD COUNT AND DIFFERENTIAL (04/27/2021 5:30 EST) WBC 6.29 4.00 - 12.40 [facility] LABORATORY SERVICES RBC 3.43 (L) 3.86 - 5.04 [facility] LABORATORY SERVICES Hemoglobin 9.5 (L) 11.6 - 15.[address] [facility] gm/dL LABORATORY SERVICES HCT 30.3 (L) 34.9 - 44.4 % [facility] LABORATORY SERVICES MCV 88 81 - [address] [facility]ORATORY SERVICES MCH 27.7 26.7 - 33.[address] [facility] LABORATORY SERVICES MCHC 31.4 (L) 32.1 - 35.[address] [facility] gm/dL LABORATORY SERVICES RDW-CV 13.2 <14.7 % [facility] LABORATORY SERVICES RDW-SD 42.5 <50.[address] [facility] LABORATORY SERVICES PLT 257 141 - 377 K/[facility] LABORATORY SERVICES MPV 10.2 9.5 - 12.[address] [facility] LABORATORY SERVICES Neutrophils 64.4 % [facility]ORY SERVICES Lymphocytes 18.3 % [facility] SERVICES Monocytes 8.7 % [facility] SERVICES Eosinophils 3.3 % [facility]ORY SERVICES Basophils 0.8 % [facility]ATORY SERVICES Immature Grans 4.5 % [facility]ORATORY SERVICES Absolute Neutrophils 4.05 2.20 - 8.[address] [facility] LABORATORY SERVICES Absolute Lymphocytes 1.15 1.09 - 3.[address] [facility] LABORATORY SERVICES Absolute Monocytes 0.55 0.10 - 0.[address] [facility] LABORATORY SERVICES Absolute Eosinophils 0.21 0.03 - 0.[address] [facility] LABORATORY SERVICES Absolute Basophils 0.05 0.01 - 0.[address] [facility] LABORATORY SERVICES Absolute Immature 0.28 (H) 0.00 - 0.[address] [facility] Grans [facility] LABORATORY SERVICES Type of Differential: Auto [facility] LABORATORY SERVICES Specimen Blood - Venous blood (substance) Performing Organization Address City/[facility]/ZIP Code Phon e Number [facility] [address] [place] [address] SERVICES HEPATITIS B CORE ANTIBODY (TOTAL) (04/27/2021 5:30 EST) Pathologist Sig nature Hepatitis B Core Ab, Negative Negative [facility] Total LABORATORY SERVICES Specimen Blood - Venous blood (substance) Performing Organization Address [facility]/ZIP [facility] Phon e Number [facility] [address] [place] [address] SERVICES HEPATITIS B SURFACE ANTIGEN (04/27/2021 5:30 EST) Pathologist Sig nature Hep B Surface Ag Negative Negative [facility]ORATORY SERVICES Specimen Blood - Venous blood (substance) Performing Organization Address [facility]/ZIP [facility] Phon e Number [facility] [address] [place] [address] SERVICES HEPATITIS B SURFACE ANTIBODY (04/27/2021 5:30 EST) Hep B Surface Ab, >1000.[address] [facility] Quantitative Comment: mIU/mL [facility] Reference Range for Hep B Surface Ab, Quant: SERVICES Positive: >= 10.0 mIU/mL Negative: ??< 10.0 mIU/mL Patient is presumed to be immune to infection with Hep atitis B Virus. Hep B Surface Ab, Positive See Note [facility] Qualitative Comment: [facility] Reference Range for Hep B Surface Ab, Qual: SERVICES Unvaccinated: ??Negative Vaccinated: ??Positive Specimen Blood - Venous blood (substance) Performing Organization Address [facility]/ZIP Code Phon e Number [facility] [address] [place] [address] SERVICES (ABNORMAL) HEPATITIS A TOTAL ANTIBODY W REFLEX (04/27/2021 5:30 EST) Pathologist Sig nature Hepatitis A Positive (A) Negative [facility] Antibody, Total LABORATORY SERVICES Specimen Blood - Venous blood (substance) Narrative [facility] LABORATORY SERVICES - 04/27/2021 10:24 EST The result of this assay can be falsely elevated (Positive) due to the consumption of Biotin. Performing Organization Address [facility] Phon e Number [facility] [address] [place] [address] SERVICES HIV 1/2 ANTIGEN AND ANTIBODY, 4TH GENERATION (04/27/2021 5:30 EST) HIV 1 and 2 NegativeComment: If Negative [facility] Antibody/p24 acute HIV-1 LABORATORY Antigen, 4th infection is SERVICES Generation suspected in a high risk patient, submit plasma specimen for HIV-1 RNA quantitation test. Specimen Blood - Venous blood (substance) Narrative [facility] LABORATORY SERVICES - 04/27/2021 9:46 EST Fourth Generation assay performed on the Siemens Centaur XPT. Performing Organization Address [facility]/ZIP Code Phon e Number [facility]ORY [address] [place] [address] SERVICES COVID-19 TEST [facility] LAB PCR (04/26/2021 11:20 EST) Specimen Swab - Entire nasopharynx (body structur e) Performing Organization Address [facility]/ZIP [facility] Phon e Number [facility]ORY [address] [place] [address] SERVICES COVID-19 TESTING (04/26/2021 11:20 EST) COVID-19 rt-PCR Negative Negative [facility] Result Comment: [facility] This test has not been FDA [...] and epidemiological informatio n. Performed on the [employer] Fusion instrument Performing Lab [place] [facility] Lab [facility] LABORATORY SERVICES Specimen Swab - Entire nasopharynx (body structur e) Performing Organization Address [facility] Phon e Number [facility] [address] [place] [address] SERVICES (ABNORMAL) BASIC METABOLIC PANEL (BMP) (04/26/2021 6:19 EST) Pathologist Sig nature Sodium 139 136 - 145 mmol/L [facility]ATORY SERVICES Potassium 4.0 3.5 - 5.0 mmol/L [facility]ORY SERVICES Chloride 102 96 - 110 mmol/L [facility]ORY SERVICES CO2 Total 32 22 - 32 mmol/L [facility]ORATORY SERVICES Anion Gap 5 (L) 8 - [address] [facility]OR[facility]ORY SERVICES Glucose 107 (H) 70 - 100 mg/dL [facility]ORY SERVICES Calcium 8.6 8.5 - 10.5 mg/dL [facility] LABORATORY SERVICES BUN 16 10 - 26 mg/dL [facility]ORY SERVICES Creatinine 0.67 0.52 - 1.04 mg/dL [facility] LABORATORY SERVICES eGFR 112 >60 mL/min/1.73m2 [facility] LABORATORY SERVICES Specimen Blood - Venous blood (substance) Performing Organization Address [facility] Phon e Number [facility]ORY [address] [place] [address] SERVICES (ABNORMAL) COMPLETE BLOOD COUNT AND DIFFERENTIAL (04/26/2021 6:18 EST) WBC 7.22 4.00 - 12.[address] [facility] LABORATORY SERVICES RBC 3.34 (L) 3.86 - 5.04 [facility] LABORATORY SERVICES Hemoglobin 9.4 (L) 11.6 - 15.[address] [facility] gm/dL LABORATORY SERVICES HCT 28.9 (L) 34.9 - 44.4 % [facility] LABORATORY SERVICES MCV 87 81 - [address] [facility] LABORATORY SERVICES MCH 28.1 26.7 - 33.[address] [facility] LABORATORY SERVICES MCHC 32.5 32.1 - 35.[address] [facility] gm/dL LABORATORY SERVICES RDW-CV 13.1 <14.7 % [facility] LABORATORY SERVICES RDW-SD 41.1 <50.[address] [facility] LABORATORY SERVICES PLT 233 141 - 377 /[facility] LABORATORY SERVICES MPV 10.8 9.5 - 12.[address] [facility] LABORATORY SERVICES Neutrophils 71.4 % [facility]ORY SERVICES Lymphocytes 13.4 % [facility]ORY SERVICES Monocytes 9.4 % [facility]ORY SERVICES Eosinophils 3.3 % [facility]ORY SERVICES Basophils 0.4 % [facility] LABORATORY SERVICES Immature Grans 2.1 % [facility] LABORATORY SERVICES Absolute Neutrophils 5.15 2.20 - 8.85 [facility] LABORATORY SERVICES Absolute Lymphocytes 0.97 (L) 1.09 - 3.[address] [facility] LABORATORY SERVICES Absolute Monocytes 0.68 0.10 - 0.[address] [facility] LABORATORY SERVICES Absolute Eosinophils 0.24 0.03 - 0.[address] [facility] LABORATORY SERVICES Absolute Basophils 0.03 0.01 - 0.[address] [facility] LABORATORY SERVICES Absolute Immature 0.15 (H) 0.00 - 0.[address] [facility] LABORATORY SERVICES Type of Differential: Auto [facility] LABORATORY SERVICES Specimen Blood - Venous blood (substance) Performing Organization Address City/State/ZIP Code Phon e Number [facility] LABORATORY [address] [place] [address] SERVICES (ABNORMAL) COMPLETE BLOOD COUNT AND DIFFERENTIAL (04/25/2021 6:16 EST) WBC 8.07 4.00 - 12.[address] [facility] LABORATORY SERVICES RBC 3.24 (L) 3.86 - 5.[address] [facility] M/[facility] LABORATORY SERVICES Hemoglobin 9.3 (L) 11.6 - 15.[address] [facility] gm/dL LABORATORY SERVICES HCT 28.6 (L) 34.9 - 44.4 % [facility] LABORATORY SERVICES MCV 88 81 - [address] [facility] LABORATORY SERVICES MCH 28.7 26.7 - 33.[address] [facility] LABORATORY SERVICES MCHC 32.5 32.1 - 35.[address] [facility] gm/dL LABORATORY SERVICES RDW-CV 13.1 <14.7 % [facility] LABORATORY SERVICES RDW-SD 42.5 <50.[address] [facility] LABORATORY SERVICES PLT 201 141 - 377 K/[facility] LABORATORY SERVICES MPV 10.5 9.5 - 12.[address] [facility] LABORATORY SERVICES Neutrophils 73.8 % [facility] LABORATORY SERVICES Lymphocytes 13.3 % [facility] LABORATORY SERVICES Monocytes 9.0 % [facility] LABORATORY SERVICES Eosinophils 2.4 % [facility] LABORATORY SERVICES Basophils 0.4 % [facility] LABORATORY SERVICES Immature Grans 1.1 % [facility] LABORATORY SERVICES Absolute Neutrophils 5.96 2.20 - 8.[address] [facility] LABORATORY SERVICES Absolute Lymphocytes 1.07 (L) 1.09 - 3.[address] [facility] LABORATORY SERVICES Absolute Monocytes 0.73 0.10 - 0.[address] [facility] LABORATORY SERVICES Absolute Eosinophils 0.19 0.03 - 0.[address] [facility] LABORATORY SERVICES Absolute Basophils 0.03 0.01 - 0.[address] [facility] LABORATORY SERVICES Absolute Immature 0.09 (H) 0.00 - 0.[address] [facility] LABORATORY SERVICES Type of Differential: Auto [facility] LABORATORY SERVICES Specimen Blood - Blood sample taken from central line (situation) Performing Organization Address City/State/ZIP Code Phon e Number [facility] LABORATORY [address] [place] [address] SERVICES (ABNORMAL) BASIC METABOLIC PANEL (BMP) (04/25/2021 6:15 EST) Pathologist Sig nature Sodium 139 136 - 145 mmol/L [facility] LABORATORY SERVICES Potassium 3.9 3.5 - 5.0 mmol/L [facility] LABORATORY SERVICES Chloride 103 96 - 110 mmol/L [facility] LABORATORY SERVICES CO2 Total 30 22 - 32 mmol/L [facility] LABORATORY SERVICES Anion Gap 6 (L) 8 - [address] [facility] LABORATORY SERVICES Glucose 103 (H) 70 - 100 mg/dL [facility] LABORATORY SERVICES Calcium 8.0 (L) 8.5 - 10.5 mg/dL [facility] LABORATORY SERVICES BUN 12 10 - 26 mg/dL [facility] LABORATORY SERVICES Creatinine 0.52 0.52 - 1.04 mg/dL [facility] LABORATORY SERVICES eGFR 122 >60 mL/min/1.73m2 [facility] LABORATORY SERVICES Specimen Blood - Venous blood (substance) Performing Organization Address City/State/ZIP Code Phon e Number [facility] LABORATORY [address] [place] [address] SERVICES (ABNORMAL) COMPLETE BLOOD COUNT AND DIFFERENTIAL (04/24/2021 6:14 EST) WBC 12.01 4.00 - 12.40 [facility] LABORATORY SERVICES RBC 3.30 (L) 3.86 - 5.04 [facility] LABORATORY SERVICES Hemoglobin 9.3 (L) 11.6 - 15.[address] [facility] gm/dL LABORATORY SERVICES HCT 28.7 (L) 34.9 - 44.4 % [facility] LABORATORY SERVICES MCV 87 81 - [address] [facility] LABORATORY SERVICES MCH 28.2 26.7 - 33.[address] [facility] LABORATORY SERVICES MCHC 32.4 32.1 - 35.[address] [facility] gm/dL LABORATORY SERVICES RDW-CV 13.1 <14.7 % [facility] LABORATORY SERVICES RDW-SD 41.6 <50.[address] [facility] LABORATORY SERVICES PLT 191 141 - 377 K/m [facility] LABORATORY SERVICES MPV 10.9 9.5 - 12.[address] [facility] LABORATORY SERVICES Neutrophils 83.5 % [facility] LABORATORY SERVICES Lymphocytes 7.7 % [facility] LABORATORY SERVICES Monocytes 6.7 % [facility] LABORATORY SERVICES Eosinophils 1.1 % [facility] LABORATORY SERVICES Basophils 0.2 % [facility] LABORATORY SERVICES Immature Grans 0.8 % [facility] LABORATORY SERVICES Absolute Neutrophils 10.02 (H) 2.20 - 8.[address] [facility] K/[facility] LABORATORY SERVICES Absolute Lymphocytes 0.93 (L) 1.09 - 3.[address] [facility] K/[facility] LABORATORY SERVICES Absolute Monocytes 0.80 0.10 - 0.[address] [facility] K/[facility] LABORATORY SERVICES Absolute Eosinophils 0.13 0.03 - 0.[address] [facility] K/cm LABORATORY SERVICES Absolute Basophils 0.03 0.01 - 0.[address] [facility] K/[facility] LABORATORY SERVICES Absolute Immature 0.10 (H) 0.00 - 0.[address] [facility] /[facility] LABORATORY SERVICES Type of Differential: Auto [facility] LABORATORY SERVICES Specimen Blood - Blood sample taken from central line (situation) Performing Organization Address City/[facility]/ZIP Code Phon e Number [facility] LABORATORY [address] [place] [address] SERVICES (ABNORMAL) BASIC METABOLIC PANEL (BMP) (04/24/2021 6:13 EST) Pathologist Sig nature Sodium 138 136 - 145 mmol/L [facility] LABORATORY SERVICES Potassium 3.3 (L) 3.5 - 5.0 mmol/L [facility] LABORATORY SERVICES Chloride 104 96 - 110 mmol/L [facility] LABORATORY SERVICES CO2 Total 28 22 - 32 mmol/L [facility] LABORATORY SERVICES Anion Gap 6 (L) 8 - [address] [facility] LABORATORY SERVICES Glucose 142 (H) 70 - 100 mg/dL [facility] LABORATORY SERVICES Calcium 8.0 (L) 8.5 - 10.5 mg/dL [facility] LABORATORY SERVICES BUN 8 (L) 10 - 26 mg/dL [facility] LABORATORY SERVICES Creatinine 0.55 0.52 - 1.04 mg/dL [facility] LABORATORY SERVICES eGFR 119 >60 mL/min/1.73m2 [facility] LABORATORY SERVICES Specimen Blood - Venous blood (substance) Performing Organization Address City/[facility]/ZIP Code Phon e Number [facility] LABORATORY [address] [place] [address] SERVICES (ABNORMAL) VANCOMYCIN TROUGH (04/24/2021 0:27 EST) Vancomycin Trough 4.8 (L) 10.0 - 20.[address] [facility] ??g/mL LABORATORY SERVICES Draw Type Central Line [facility] Draw LABORATORY SERVICES Specimen Blood - Venous blood (substance) Performing Organization Address [facility]/ZIP Code Phon e Number [facility] LABORATORY [address] [place] [address] SERVICES (ABNORMAL) ANAEROBE CULTURE/SMEAR(INC. AEROBES), OTHER (04/23/2021 19:53 EST) Organism ID Few Streptococcus [facility] dysgalactiae LABORATORY SERVICES (A)Comment: Penicillin and ampicillin are drugs of choice for treatment of beta hemolytic streptococcal infections. Smear Many Neutrophils [facility] Present (A) LABORATORY SERVICES Smear Few Gram Positive Cocci [facility] R (A) LABORATORY SERVICES Specimen Fluid - Soft tissue (navigational concep t) Performing Organization Address [facility] Phon e Number [facility] LABORATORY [address] [place] [address] SERVICES TEST, URINE (04/23/2021 18:31 EST) Test, NegativeComment: Negative [facility] Urine False negative LABORATORY results may occur in SERVICES women who are beyond 5-8 weeks gestation. Diagnosis of should be based on a correlation of test results with typical clinical signs and symptoms. Specimen Urine - Urine (substance) Performing Organization Address [facility] Code Phon e Number [facility] LABORATORY [address] [place] [address] SERVICES (ABNORMAL) COMPREHENSIVE METABOLIC PANEL (CMP) (04/23/2021 9:20 EST) Pathologist Sig nature Sodium 136 136 - [address] [facility] mmol/L LABORATORY SERVICES Potassium 3.0 (L) 3.5 - 5.[address] [facility] mmol/L LABORATORY SERVICES Chloride 100 96 - 110 mmol/L [facility] LABORATORY SERVICES CO2 Total 25 22 - 32 mmol/L [facility] LABORATORY SERVICES Glucose 103 (H) 70 - 100 mg/dL [facility] LABORATORY SERVICES BUN 8 (L) 10 - 26 mg/dL [facility] LABORATORY SERVICES Creatinine 0.69 0.52 - 1.[address] [facility] mg/dL LABORATORY SERVICES eGFR 111 >[address] [facility] mL/min/1.73m2 LABORATORY SERVICES Total Protein 6.3 6.3 - 8.2 g/dL [facility] LABORATORY SERVICES Albumin 3.2 (L) 3.4 - 4.9 g/dL [facility] LABORATORY SERVICES Alkaline Phosphatase 114 38 - 126 U/L [facility] LABORATORY SERVICES AST 24 15 - 46 U/L [facility] LABORATORY SERVICES ALT 27 <35 U/L [facility] LABORATORY SERVICES Bilirubin, Total <0.5 <1.4 mg/dL [facility] LABORATORY SERVICES Calcium 8.4 (L) 8.5 - 10.[address] [facility] mg/dL LABORATORY SERVICES Albumin/Globulin 1.0 1.0 - 2.[address] [facility] Ratio LABORATORY SERVICES Anion Gap 11 8 - [address] [facility] LABORATORY SERVICES Specimen Blood - Venous blood (substance) Performing Organization Address [facility]/ZIP Code Phon e Number [facility] LABORATORY [address] [place] [address] SERVICES MAGNESIUM (04/23/2021 6:50 EST) Pathologist Sig nature Magnesium 1.8 1.7 - 2.8 mg/dL [facility] LABORA TORY SERVICES Specimen Blood - Venous blood (substance) Performing Organization Address [facility]/ZIP Code Phon e Number [facility] LABORATORY [address] [place] [address] SERVICES (ABNORMAL) BASIC METABOLIC PANEL (BMP) (04/23/2021 6:50 EST) Pathologist Sig nature Sodium 136 136 - 145 mmol/L [facility] LABORATORY SERVICES Potassium 2.9 (LL) 3.5 - 5.0 mmol/L [facility] LABORATORY SERVICES Chloride 102 96 - 110 mmol/L [facility] LABORATORY SERVICES CO2 Total 27 22 - 32 mmol/L [facility] LABORATORY SERVICES Anion Gap 7 (L) 8 - [address] [facility] LABORATORY SERVICES Glucose 119 (H) 70 - 100 mg/dL [facility] LABORATORY SERVICES Calcium 8.7 8.5 - 10.5 mg/dL [facility] LABORATORY SERVICES BUN 7 (L) 10 - 26 mg/dL [facility] LABORATORY SERVICES Creatinine 0.67 0.52 - 1.04 mg/dL [facility] LABORATORY SERVICES eGFR 112 >60 mL/min/1.73m2 [facility] LABORATORY SERVICES Specimen Blood - Venous blood (substance) Performing Organization Address [facility]/ZIP Code Phon e Number [facility] LABORATORY [address] [place] [address] SERVICES (ABNORMAL) COMPLETE BLOOD COUNT AND DIFFERENTIAL (04/23/2021 6:50 EST) WBC 16.72 (H) 4.00 - 12.[address] [facility] LABORATORY SERVICES RBC 3.43 (L) 3.86 - 5.04 [facility] LABORATORY SERVICES Hemoglobin 9.9 (L) 11.6 - 15.[address] [facility] gm/dL LABORATORY SERVICES HCT 30.1 (L) 34.9 - 44.4 % [facility] LABORATORY SERVICES MCV 88 81 - [address] [facility] LABORATORY SERVICES MCH 28.9 26.7 - 33.[address] [facility] LABORATORY SERVICES MCHC 32.9 32.1 - 35.[address] [facility] gm/dL LABORATORY SERVICES RDW-CV 13.2 <14.7 % [facility] LABORATORY SERVICES RDW-SD 42.3 <50.[address] [facility] LABORATORY SERVICES PLT 171 141 - 377 K/[facility] LABORATORY SERVICES MPV 11.6 9.5 - 12.[address] [facility] LABORATORY SERVICES Neutrophils 86.3 % [facility] LABORATORY SERVICES Lymphocytes 5.1 % [facility] LABORATORY SERVICES Monocytes 6.5 % [facility] LABORATORY SERVICES Eosinophils 0.5 % [facility] LABORATORY SERVICES Basophils 0.2 % [facility] LABORATORY SERVICES Immature Grans 1.4 % [facility] LABORATORY SERVICES Absolute Neutrophils 14.42 (H) 2.20 - 8.[address] [facility] LABORATORY SERVICES Absolute Lymphocytes 0.86 (L) 1.09 - 3.[address] [facility] LABORATORY SERVICES Absolute Monocytes 1.09 (H) 0.10 - 0.[address] [facility] LABORATORY SERVICES Absolute Eosinophils 0.09 0.03 - 0.[address] [facility] LABORATORY SERVICES Absolute Basophils 0.03 0.01 - 0.[address] [facility] LABORATORY SERVICES Absolute Immature 0.23 (H) 0.00 - 0.[address] [facility] LABORATORY SERVICES Type of Differential: Auto [facility] LABORATORY SERVICES Specimen Blood - Blood sample taken from central line (situation) Performing Organization Address City/State/ZIP Code Phon e Number [facility] LABORATORY [address] [place] [address] SERVICES COVID-19 TEST [facility] LAB PCR (04/23/2021 2:53 EST) Specimen Swab - Entire nasopharynx (body structur e) Performing Organization Address [facility] Code Phon e Number [facility] LABORATORY [address] [place] [address] SERVICES COVID-19 TESTING (04/23/2021 2:53 EST) COVID-19 rt-PCR Negative Negative [facility] Result Comment: CENTER LABORATORY This test [...] and epidemiological informatio n. Performed on the [employer] GeneXpert Instrument Performing Lab GeneXpert [facility] Lab [facility] LABORATORY SERVICES Specimen Swab - Entire nasopharynx (body structur e) Performing Organization Address [facility] Phon e Number [facility] LABORATORY [address] [place] [address] SERVICES CK (04/23/2021 1:57 EST) Pathologist Sig nature CK 102 30 - 135 U/L [facility] LABORATOR Y SERVICES Specimen Blood - Venous blood (substance) Performing Organization Address [facility] Phon e Number [facility] LABORATORY [address] [place] [address] SERVICES XR WRIST RIGHT 3 OR MORE VIEWS (04/22/2021 18:58 EST) Anatomical Region Laterality Modality Upper Extremities Right Computed Radiography Specimen Impressions [facility] - 04/22/2021 19:38 EST Diffuse soft tissue swelling of the distal right forearm, wrist, and hand. I have personally reviewed the images an d the above interpretation and agree with the findings. Narrative [facility] - 04/22/2021 19:38 EST XR FOREARM [...] Organization Address City/State/ZIP Code Phon e Number [facility] [place] XR FOOT LEFT 3 OR MORE VIEWS (04/22/2021 18:57 EST) Anatomical Region Laterality Modality Lower Extremities Left Computed Radiography Specimen Impressions [facility] [place] - 04/22/2021 19:51 EST 1. Questionable cortical [...] interpretation and agree with the findings. Narrative [facility] RADIOLOGY [facility] - 04/22/2021 19:51 EST XR FOOT [...] noted. Procedure Note Yris Vasquez MD - XR FOOT LEFT 3 OR MORE VIEWS [...] Organization Address City/State/ZIP Code Phon e Number [facility] RADIOLOGY [facility] XR FOREARM RIGHT 2 VIEWS (04/22/2021 18:56 EST) Anatomical Region Laterality Modality Upper Extremities Right Computed Radiography Specimen Impressions [facility] RADIOLOGY [facility] - 04/22/2021 19:38 EST Diffuse soft tissue swelling of the distal right forearm, wrist, and hand. I have personally reviewed the images an d the above interpretation and agree with the findings. Narrative [facility] RADIOLOGY [facility] - 04/22/2021 19:38 EST XR FOREARM [...] Organization Address City/State/ZIP Code Phon e Number [facility] RADIOLOGY [facility] XR HAND RIGHT 3 OR MORE VIEWS (04/22/2021 18:55 EST) Anatomical Region Laterality Modality Upper Extremities Right Computed Radiography Specimen Impressions [facility] - 04/22/2021 19:38 EST Diffuse soft tissue swelling of the distal right forearm, wrist, and hand. I have personally reviewed the images an d the above interpretation and agree with the findings. Narrative [facility] - 04/22/2021 19:38 EST XR FOREARM [...] Organization Address City/State/ZIP Code Phon e Number [facility] LACTIC ACID (04/22/2021 16:39 EST) Pathologist Sig nature Lactic Acid 0.6 <=2.0 mmol/L [facility] LABORATOR Y SERVICES Specimen Blood - Venous blood (substance) Performing Organization Address City/State/ZIP Code Phon e Number [facility] LABORATORY [address] [place] [address] SERVICES (ABNORMAL) COMPLETE BLOOD COUNT AND DIFFERENTIAL (04/22/2021 16:39 EST) WBC 14.45 (H) 4.00 - 12.40 [facility] LABORATORY SERVICES RBC 3.56 (L) 3.86 - 5.04 [facility] LABORATORY SERVICES Hemoglobin 9.9 (L) 11.6 - 15.[address] [facility] gm/dL LABORATORY SERVICES HCT 32.0 (L) 34.9 - 44.4 % [facility] LABORATORY SERVICES MCV 90 81 - [address] [facility] LABORATORY SERVICES MCH 27.8 26.7 - 33.[address] [facility] LABORATORY SERVICES MCHC 30.9 (L) 32.1 - 35.[address] [facility] gm/dL LABORATORY SERVICES RDW-CV 13.0 <14.7 % [facility] LABORATORY SERVICES RDW-SD 42.8 <50.[address] [facility] LABORATORY SERVICES PLT 135 (L) 141 - 377 K/[facility] LABORATORY SERVICES MPV 11.4 9.5 - 12.[address] [facility] LABORATORY SERVICES Neutrophils 86.0 % [facility] LABORATORY SERVICES Lymphocytes 5.2 % [facility] LABORATORY SERVICES Monocytes 7.4 % [facility] LABORATORY SERVICES Eosinophils 0.5 % [facility] LABORATORY SERVICES Basophils 0.1 % [facility] LABORATORY SERVICES Immature Grans 0.8 % [facility] LABORATORY SERVICES Absolute Neutrophils 12.43 (H) 2.20 - 8.85 [facility] LABORATORY SERVICES Absolute Lymphocytes 0.75 (L) 1.09 - 3.[address] [facility] LABORATORY SERVICES Absolute Monocytes 1.07 (H) 0.10 - 0.[address] [facility] LABORATORY SERVICES Absolute Eosinophils 0.07 0.03 - 0.61 [facility] LABORATORY SERVICES Absolute Basophils 0.02 0.01 - 0.11 [facility] LABORATORY SERVICES Absolute Immature 0.11 (H) 0.00 - 0.[address] [facility] LABORATORY SERVICES Type of Differential: Auto [facility] LABORATORY SERVICES Specimen Blood - Venous blood (substance) Performing Organization Address City/[facility]/ZIP Code Phon e Number [facility] LABORATORY [address] [place] [address] SERVICES (ABNORMAL) BASIC METABOLIC PANEL (BMP) (04/22/2021 16:39 EST) Pathologist Sig nature Sodium 141 136 - 145 mmol/L [facility] LABORATORY SERVICES Potassium 3.0 (L) 3.5 - 5.0 mmol/L [facility] LABORATORY SERVICES Chloride 105 96 - 110 mmol/L [facility] LABORATORY SERVICES CO2 Total 24 22 - 32 mmol/L [facility] LABORATORY SERVICES Anion Gap 12 8 - [address] [facility] LABORATORY SERVICES Glucose 89 70 - 100 mg/dL [facility] LABORATORY SERVICES Calcium 8.7 8.5 - 10.5 mg/dL [facility] LABORATORY SERVICES BUN 7 (L) 10 - 26 mg/dL [facility] LABORATORY SERVICES Creatinine 0.65 0.52 - 1.04 mg/dL [facility] LABORATORY SERVICES eGFR 113 >60 mL/min/1.73m2 [facility] LABORATORY SERVICES Specimen Blood - Venous blood (substance) Performing Organization Address City/[facility]/ZIP Code Phon e Number [facility] LABORATORY [address] [place] [address] OUTSIDE IMAGES MSK (04/22/2021 13:22 [...] uns pecified whether acute organ dysfunction present ([facility]) ([facility]) Group C streptococcal infection Streptococcus infection in conditions cl assified elsewhere and of unspecified site, group C Abscess of arm, right Cellulitis and abscess of upper arm and forearm Skin ulcer of left great toe, unspecifie d ulcer stage ([facility]) ([facility]) Leukopenia, unspecified type Open wound of left great toe, sequela Opioid use disorder, mild, abuse ([facility]) ([facility]) 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 ([facility]) Retained metal fragment foreign body Right arm cellulitis Cellulitis and abscess of upper arm and forearm documented in this encounter Admitting Diagnoses Diagnosis [...] HOURS, First dose (after last modification) on 05/02/21 at 2100, Until Discontinued, Routine Given 05/03/2021 [...] Tablets Given 05/01/2021 21:10 EST 2 Tablets sodium chloride 0.9 % irrigation Given 04/27/2021 9:51 EST 9,000 mL PRN, Starting on Sun04/27/21 at 0951, Until Sun04/27/21 at 1022, Routine, Intraprocedure tiZANidine (ZANAFLEX) tablet 8 mg Given 05/04/2021 [...] Discontinued, Routine amoxicillin (AMOXIL) capsule 500 mg 161 (Given - Provider: Karly Castorena, JARRED) 500 mg, oral, EVERY 8 HOURS, 21 doses, F irst dose on Sun05/04/21 at 1600, Last dose on Sun05/11/21 at 0800, Routine buprenorphine-naloxone (SUBOXONE) 2-0.5 mg sublingual film 3 Film 0923 (Given - Provider: Karly Castorena, JARRED) 0815 (Given - Provider: Karly Castorena, JARRED)0828 ([facility] Hold - Provider: Automatic Transfer Provider Hn - Reason: Patient off unit)1139 ([facility] Unhold - Provider: Automatic Transfer Provider Hn) 0910 (Given - Provider: Karly Castorena, JARRED) 3 Film, sublingual, DAILY, First dose on Sun04/23/21 at 0900, Until Discontinued, Routine ceFAZolin (ANCEF) syringe 2 g 0700 (Due) 0828 ([facility] Hold - Provider: Automatic Transfer Provider Hn - Reason: Patient off unit)1139 ([facility] Unhold - Provider: Automatic Transfer Provider Hn) 2 g, intravenous, Administer over 10 Min utes, [employer]R., 1 dose, First dose on Sun05/03/21 at 0700, Routine cefTRIAXone (ROCEPHIN) 2,000 mg in sodiu m chloride (NS MBP) 50 mL IVPB (CANCELED) 232 (Given - Provider: Cindy James LPN) 0828 ([facility] Hold - Provider: Automatic Transfer Provider Hn - Reason: Patient off unit)1139 ([facility] Unhold - Provider: Automatic Transfer Provider Hn)2242 [...] polyethylene glycol 3350 (MIRALAX) packet 17 g 09 (G iven - Provider: Karly Castorena RN) 0823 (Not Given - Provider: Karly sy RN - Reason: NPO)08 ([facility] Hold - Provider: Automatic Transfer Provider Hn - Reason: Patient off unit)113 ([facility] Unhold - Provider: Automatic Transfer Provider Hn) 09 (Given - Provider: Karly Castorena RN) 17 g, oral, DAILY, First dose on Sun at 0900, Until Discontinued, Routine senna (SENOKOT) tablet 2 Tablet 2003 (Given - Provider: Evelia James LPN) 827 ([facility] Hold - Provider: Automatic Transfer Provider Hn - Reason: Patient off unit)1138 ([facility] Unhold - Provider: Automatic Transfer Provider Gloria)2002 (Given - Provider: Cindy James LPN) 2 Tablet, oral, AT BEDTIME, First dose o n 04/23/21 at 2230, Until Discontinued, Routine Continuous Medication Order 05/02/2021 05/03/2021 05/04/2021 HYDROmorphone 1 mg/ml (DILAUDID) [employer] syringe, 30 ml (C ANCELED) 932 (New Bag - Provider: Karly Castorena RN)2156 (Rate Documented - Provider: Cindy James LPN) 2037 (New Bag - Provider: Monik Bryant RN) intravenous, CONTINUOUS, Starting on Sun04/27/21 at 1145, Until Sun05/04/21 at 0815, Routine, [employer] Dose (mg): 0.4, Lockout Interval (minutes): 10, Continuous Infusion Dose (mg/hr): 0, Maximum Limit (mg/hr): 2.4 PRN Medication Order 05/02/2021 05/03/2021 05/04/2021 alteplase (CATHFLO ACTIVASE) injection 2 mg 827 ([facility] Hold - Provider: Automatic Transfer Provider Hn - Reason: Patient off unit)1138 ([facility] Unhold - Provider: Automatic Transfer Provider Hn) 2 mg, intercatheter, PRN, Starting on u 04/28/21 at 2321, Until Sun05/04/21 at 1943, Line Care, Routine diphenhydrAMINE (BENADRYL) capsule 25 mg 09 (Given - Provider: Karly Castorena RN)1739 (Given [...] topical, 4 TIMES DAILY PRN, Starting on 05/03/21 at 2322, Until Sun05/04/21 at 1943, Itching HYDROmorphone (DILAUDID) tablet 2 mg 1148 (Given - Provider: Karly Castorena RN)161 (Given - Provider: Karly Castorena RN) 2 [...] James LPN)0910 (Given - Provider: Karly Castorena RN)161 (Given - Provider: Karly Castorena RN) 400 [...] PRN, Starting on 05/01/21 at 1037, Until 05/04/21 at 1943, Muscle Spasms, Routine 2200 (Given [...] acetaminophen (TYLENOL) tablet 1,000 mg 1 05/02/19 22 ceFAZolin (ANCEF) syringe 2 g 2 05/02/20211 ferrous gluconate (FERGON) tablet 324 mg 1 [...] 022 04/23/2021 sodium chloride 0.9 % irrigation 2 04/30/2021 04/23/2021 alteplase (CATHFLO ACTIVASE) injection 2 [...] syringe 2 mg HYDROmorphone 1 mg/ml (DILAUDID) [employer] 2 04/27/2021 04/23/2021 syringe, 30 ml ibuprofen (MOTRIN) tablet 400 mg 3 04/27/2021 04/23/2021 midazolam (PF) (VERSED) injection 2 mg 1 acetaminophen (TYLENOL) tablet 500 mg 1 04/25/2021 HYDROmorphone (DILAUDID) liquid 4-6 mg 1 1 HYDROmorphone (PF) (DILAUDID) 0.5 mg/0.5 1 [...] 04/29/202103/31 documented in this encounter Care Teams Rug Washer Relationship Specialty Start Date End Date Ratna Olivas MD PCP - General 03/05/[address] [place] [id number] documented as of this encounter
--- OUTSIDE RECORDS SUMMARY | 2022-02-03 16:01 | XMS_ITS | Encounter Summary ---
:1980 Author Organization [facility] Address [address] [place] [address] Care Team Providers Name Role Phone Ratna Olivas MD Primary Care Provider Reason for Visit Reason Comments Hand Pain BIBEMS tx from [facility]. R hand red, swollen and streaking up forearm. ulceration on left foot. hx IVDU, denies current use. limited ROM in L am. el evated WBCs, lactic WNL Diabetic Foot Infection Auth/Cert Specialty Diagnoses / Procedures Referred By Contact Refer red To Contact Diagnoses Right arm cellulitis Sepsis Referral ID Status Reason Start Date Expiration Date Visits Requ ested Visits Authorized [id number] 1 1 Encounter Details Date Type Department Care Team Description 04/30/2021 Surgery [facility] OR Shane Cuevas right hand irrigation [address] Sin MD and debridement [[address] [place] [address] (CPT??)] [phone] [place] [address] (Wo rk) Surgery Details Date/Time Status Location OR Service Patient Class Case Case Trauma Class Type Case? 04/30/21 0800 Posted [facility] OR [facility] Orthopedics Inpatient F - Less than 24 hours Panel 1 Procedure LRB Anes Op Region Wound Class Commen ts right hand irrigation and Right General Hand Class III/ Contaminated debridement Surgeon Surgeon Role Service Panel Shane Cuevas MD Primary Orthopedics 1 Reddy Jerome MD Resident - Assisting Orthopedics 1 Social History Tobacco Use [...] Sign Reading Time Taken Comments Blood Pressure 127/74 04/30/2021 0620 EST Pulse 75 04/29/2021 1952 EST Temperature 36.9 ??C (98.4 ??F) 04/30/2021 0620 EST Respiratory Rate 18 04/29/2021 1400 EST Oxygen Saturation 98% 04/30/2021 0620 EST Inhaled Oxygen Concentration - - Weight [...] *Right arm cellulitis 04/23/2021 ??? Sepsis ([facility]) 04/24/2021 ??? Open wound of left great toe 04/24/2021 ??? Below-knee amputation of right lower extremity determined by examination ([facility]) 04/04/2019 ??? Opioid use disorder, mild, abuse ([facility] ([facility]) 01/17/2019 ??? Retained metal fragment foreign body 04/25/2021 Class: Permanent Right groin; needle ??? Acute carpal tunnel syndrome, right 04/22/2021 Added automatically from request for surgery [id number] Resolved Hospital Problems Diagnosis Date Noted Date Resolved ??? History of Raynaud's syndrome 04/24/2021 04/25/2021 Transition of care: [facility] Transition of Care report automatically routed to [...] and chronic foot ulcers who presented from [facility] with concerns for worsening R arm cellulitis [...] She was maintained on a regimen of HANDLING TECH dilaudid and ketamine drip before transitioning to PO regimentprior to discharge. Patient was discharged on MUSEUM OR ZOO DIRECTOR suboxone regimen with pain under control. Patient [...] Procedure Component Value Units Date/Time Cryoglobulin, Serum [[id number]] Collected: 05/03/21 0614 Lab Status: In process Specimen: Blood, Venous Updated: 05/03/21 0620 Bacterial Culture, Blood [[id number]] Collected: 05/02/21 162 Lab Status: In process Specimen: Blood, Venous Updated: 05/02/21 163 Bacterial Culture, Blood [[id number]] Collected: 05/02/21 162 Lab Status: In process Specimen: Blood, Venous Updated: 05/02/21 1635 Upcoming Appointments May 05, 2021 13:55 Us Gillian & Physiologic Study with [id number] [facility] Vascular Surgery - [facility] (--) [address] [facility] [address] Prep: -Wear loose fitting clothing and footwear appropriate for walking in the event that exercise testingis required. -Please bring any insurance information and a copayment if required by your insurance company. May 16, 2021 14:30 Post Op Visit with Kev Hughes MD [facility] Hand & Upper Extremity Program [facility] De Guzman (--) [address] [facility] [phone] Follow-up appointments and procedures [facility], [facility] I certify that this patient is under my care and that I, or another Medicare allowed practitioner (DO AIDEE, STU) working with me, had a bvnr-zs-vwci encounter with this patient on this date: [...] Skilled Care Requested: Nursing asessment Wound care custodial assessment needed related to this encounter: Wound, Ostomy or Incontinence Assessment Skin Integrity Post Surgical Halfway Referral - Wound Care: (Please include care and frequency.): Other Please Specify: chronic left foot wounds Scheduling Comments (optional ??? describe specific scheduling needs if applicable): every other day: Vashe solution. Foot Ulcers should be covered with a thick layer of Vaseline, followed by application of non-adherent Telfa dressing. The foot should then be wrapped in Kerlix. Authorizing Provider: Brendon Justice MD [facility], [facility] Cleanse wound, apply santyl, and dress with telfa and kerlix. Change every other day. I certify that this patient is under my care and that I, or another Medicare allowed practitioner (DO AIDEE, STU) working with me, had a auyx-vj-ywzm encounter with this patient on this date: [...] upper extremities Skilled Care Requested: Wound care Halfway Referral - Wound Care: (Please include care [...] 05/03/[address] KEV HUGHES [address] [place], [place] [phone] POST OPERATIVE INSTRUCTIONS 1. Keep your dressing/splint [...] you live out of town or [facility] you'll need to plan in advance for [...] Disposition Code Departure Means Destination Home-Health Care [facility] Home documented in this encounter Progress Notes Shane Cuevas MD - 05/04/2021 4052 EST Physician Query Response DEBRIDEMENT Anatomical Location: ( i.e. arm) wrist Instrument: (i.e. scalpel, curette) surgical sponge and irrigation Date: 04/30/2021 Please select from the choices below the option that best describes the patient's procedure: No, this is non-exisional involving the: Tendon Size: 4 sq cm Tissue Depth: Non-excisional debridement to tendon Antoinette Barth RN - 05/04/2021 1742 EST Halima Taylor RN from [facility] called inquiring when was last dose of Suboxone was given. ANTOINETTE VARGAS RN 05/05/2021 11:48 Vaishali Humphrey - 05/04/2021 1541 EST Per , pt can be dc to home. She will have script for WC if needed. She will have calerin VNA to assist with dressings. SHe has a ride scheduled with [facility] for [facility] in [facility]. Pt aware. [id number] Malik Fofana MD - 05/04/2021 1300 [...] disorder and chronic foot ulcers presents from [facility] for concerns for worsening right arm pain, [...] - ID consulted appreciate recs - Vanc [id number]/26 - Continue ceftriaxone 2g Q24hrs until ready for discharge, then transition to cefpodoxime 200mg PO BID for total 4 week duration of abx (ending 05/21/21) - Pain regimen: APS now signed off - s/p Ketamine gtt - STOP dilaudid HANDLING TECH today; switch to PO - Tylenol 1000 mg PO Q12hr - Continue MUSEUM OR ZOO DIRECTOR gabapentin 600mg qD - Tizanidine increased to 8mg PO Q8hr PRN - Ibuprofen 400mg PO q6hr PRN - Continue MUSEUM OR ZOO DIRECTOR 6mg total as Suboxone 2-0.5mg x 3 [...] BID #History of Raynaud's disease - Continue MUSEUM OR ZOO DIRECTOR gabapentin ?? #Opoid use disorder - Regularly gets Suboxone from [facility]. UDS at OSH positive for cocaine use. - Continue MUSEUM OR ZOO DIRECTOR suboxone - APS consulted , appreciate recs, [...] second toe wounds followed by an outside melangeur operator, right femoral artery infected pseudoaneurysm status post [...] Leal MD 05/04/2021 0:44 I am not restoration silversmith today and will not be able to answer calls. Please direct calls to the orthopaedicson call resident for further questions. Karly Ferrara RN - 05/03/2021 3517 EST Data: Assumed care of Pt at 0700 Pt A&Ox3 Denies CP/SOB/N/V/D/GUILLEN. Pt is independent to commode. Continent of urine and stool. On Room air. On a HANDLING TECH dilauded pump. BKA RLE. Pt went to [...] she looks forward to transitioning off the HANDLING TECH after the OR today. Really hopeful they [...] disorder and chronic foot ulcers presents from [facility] for concerns for worsening right arm pain, [...] - ID consulted appreciate recs - Vanc [id number]/26 - Continue ceftriaxone 2g Q24hrs until ready for discharge, then transition to cefpodoxime 200mg PO BID for total 4 week duration of abx (ending 05/21/21) - Pain regimen: APS now signed off - s/p Ketamine gtt - Dilaudid HANDLING TECH 0.4mg q10 min PRN, no basal rate - plan to transition to PO after OR washout 05/03 - Tylenol 1000 mg PO Q12hr - Continue MUSEUM OR ZOO DIRECTOR gabapentin 600mg qD - Tizanidine increased to 8mg PO Q8hr PRN - Ibuprofen 400mg PO q6hr PRN - Continue MUSEUM OR ZOO DIRECTOR 6mg total as Suboxone 2-0.5mg x 3 [...] BID #History of Raynaud's disease - Continue MUSEUM OR ZOO DIRECTOR gabapentin ?? #Opoid use disorder - Regularly gets Suboxone from [facility]. UDS at OSH positive for cocaine use. - Continue MUSEUM OR ZOO DIRECTOR suboxone - APS consulted , appreciate recs, [...] second toe wound followed by an outside melangeur operator, right femoral artery infected pseudoaneurysm status post [...] and stool. On Room air. On a HANDLING TECH dilauded pump. BKA RLE. NPO at midnight [...] for I&D tomorrow. -Antibiotics: Per ID -Continue local/MUSEUM OR ZOO DIRECTOR management of left foot ulceration with outpatient follow-up with melangeur operator -Dispo: Pending REDDY JEROME MD 05/02/21 10:12 [...] drip over the weekend. Using her dilaudid HANDLING TECH frequently but is unsure how often. States [...] disorder and chronic foot ulcers presents from [facility] for concerns for worsening right arm pain, [...] - ID consulted appreciate recs - Vanc [id number]/26 - Continue ceftriaxone 2g Q24hrs until ready for discharge, then transition to cefpodoxime 200mg PO BID for total 4 week duration of abx (ending 05/21/21) - f/u with ID regarding switch to ampicillin given speciation S. dysgalactiae - Pain regimen: APS now signed off - s/p Ketamine gtt - Dilaudid HANDLING TECH 0.4mg q10 min PRN, no basal rate - consider transitioning to PO after OR washout tomorrow 05/03 - Tylenol 1000 mg PO Q12hr - Continue MUSEUM OR ZOO DIRECTOR gabapentin 600mg qD - Tizanidine increased to 8mg PO Q8hr PRN - Ibuprofen 400mg PO q6hr PRN - Continue MUSEUM OR ZOO DIRECTOR 6mg total as Suboxone 2-0.5mg x 3 film SL daily - Monitor fever curve - Daily CBCs with diff #Left Hallux and 2nd Toe Wound: Followed by podiatry at outside hospital. Ortho evaluated on admission and recommended dressing changes per patient home recs. - Dressing change q72hrs #Normocytic Anemia, chronic per chart review - f/u iron studies #History of Raynaud's disease - Continue MUSEUM OR ZOO DIRECTOR gabapentin ?? #Opoid use disorder - Regularly gets Suboxone from [facility] clinic. UDS at OSH positive for cocaine use. - Continue MUSEUM OR ZOO DIRECTOR suboxone - APS consulted , appreciate recs, [...] ID Brendon Justice MD Family Medicine, PGY1 01/03/22 7:27 #[id number] [employer] Associated attestation - Susan [...] arm in cast with zofia bandage. Ketaminedrip. HANDLING TECH dilaudid. Complains of pain 12/07. Action: Helped pt elevate RUE with pillows, gave meds per emar, hourly checks. Wound care dressing change on left foot. Response: Pt is comfortable in bed, using HANDLING TECH, will continue to monitor. EVELYN NJ RN [...] 04/30/21 1139 ??? HYDROmorphone 1 mg/ml (DILAUDID) HANDLING TECH syringe, 30 ml, , intravenous, CONTINUOUS, Leo Aguilar MD, New Bag at 04/30/21 1552 ??? ibuprofen (MOTRIN) tablet 400 mg, 400 mg, oral, Q6H PRN, Christin Young MD, 400 mg at ??? ketAMINE (KETALAR) 250 mg in NaCl 0.9% 25 mL syringe, 5 mg/hr, intravenous, CONTINUOUS, Juliano Damon, Last Rate: 0.5 mL/hr at 05/01/21 07, 5 mg/hr at 05/01/21 07 ??? lidocaine [...] the patient is sedated). Tizanidine is an idlto-2-bporhpty like dexmedetomidine which may help with anxiety, [...] duration of opioid use for specific surgeries: [employer] Website) ??? Continue hydromorphone HANDLING TECH 0.4 mg every 10 mins No Basal [...] ketamine drip off. Has been using her HANDLING TECH frequently for the cramping sensation, notes her [...] disorder and chronic foot ulcers presents from [facility] for concerns for worsening right arm pain, [...] - ID consulted appreciate recs - Vanc [id number]/26 - Continue ceftriaxone 2g Q24hrs until ready for discharge, then transition to cefpodoxime 200mg PO BID for total 4 week duration of abx (ending 05/21/21) - Pain regimen: APS now signed off - Ketamine gtt discontinued this morning - Dilaudid HANDLING TECH 0.4mg q10 min PRN, no basal rate - Tylenol 500 mg PO Q6hr - Continue MUSEUM OR ZOO DIRECTOR gabapentin 600mg qD - Tizanidine increased to 8mg PO Q8hr PRN - Ibuprofen 400mg PO q6hr PRN - Continue MUSEUM OR ZOO DIRECTOR 6mg total as Suboxone 2-0.5mg x 3 film SL daily - Monitor fever curve - Daily CBCs with diff Left Hallux and 2nd Toe Wound: Followed by podiatry at outside hospital. Ortho evaluated on admission and recommended dressing changes per patient home recs. - Dressing change q72hrs History of Raynaud's disease - Continue MUSEUM OR ZOO DIRECTOR gabapentin ?? Opoid use disorder - Regularly gets Suboxone from [facility]. UDS at OSH positive for cocaine use. - Continue MUSEUM OR ZOO DIRECTOR suboxone - APS consulted , appreciate recs, [...] MD 05/01/21 10:38 Family Medicine PGY3, Page #[phone] Associated attestation - Clark Salinas MD - [...] -Diet: Per primary -Antibiotics: Per ID -Continue local/MUSEUM OR ZOO DIRECTOR management of left foot ulceration with outpatient follow-up with melangeur operator -Dispo: Pending. Will discuss repeat I&D timing [...] for operative invention -Antibiotics: Per ID -Continue local/MUSEUM OR ZOO DIRECTOR management of left foot ulceration with outpatient follow-up with melangeur operator -Dispo: Pending Juan Schmitz MD Orthopaedic Surgery, [...] disorder and chronic foot ulcers presents from [facility] for concerns for worsening right arm pain, [...] Ketamine gtt, decreased to 5mg/hr - Continue MUSEUM OR ZOO DIRECTOR gabapentin 600mg qD - Tizanidine 4mg PO Q8hr PRN - Ibuprofen 400mg PO q6hr PRN - Dilaudid HANDLING TECH 0.4mg q10 min PRN, no basal rate - Continue MUSEUM OR ZOO DIRECTOR 6mg total as Suboxone 2-0.5mg x 3 film SL daily - Monitor fever curve - Daily CBCs with diff Left Hallux and 2nd Toe Wound: Followed by podiatry at outside hospital. Ortho evaluated on admission and recommended dressing changes per patient home recs. - Dressing change q72hrs History of Raynaud's disease - Continue MUSEUM OR ZOO DIRECTOR gabapentin ?? Opoid use disorder - Regularly gets Suboxone from [facility] clinic. UDS at OSH positive for cocaine use. - Continue MUSEUM OR ZOO DIRECTOR suboxone - APS consulted , appreciate recs, [...] Chakraborty DO, MPH Family Medicine PGY3, Page #[phone] 04/30/21, 11:19 Associated attestation - Clark Salinas [...] 04/29/21 0804 ??? HYDROmorphone 1 mg/ml (DILAUDID) HANDLING TECH syringe, 30 ml, , intravenous, CONTINUOUS, Leo [...] the patient is sedated). Tizanidine is an yzpzh-0-xxsamkyd like dexmedetomidine which may help with anxiety, [...] duration of opioid use for specific surgeries: [employer] Website) ??? Continue hydromorphone HANDLING TECH 0.4 mg every 10 mins No Basal [...] is in agreement with Brian SOW at [place] for dressing changes. will need to specify dressing changes at [place]. SHe will need a ride home ([facility]). SHe does use [facility] for transportat home and feels that they may supply transport home. CM following. Vaishali [facility][id number] Juliano Sage - 04/29/2021 0917 EST ACUTE [...] injection 2 mg, 2 mg, intercatheter, PRN, Palmer, Sydnie, DO ??? buprenorphine-naloxone (SUBOXONE) 2-0.5 mg sublingual [...] 04/29/21 0804 ??? HYDROmorphone 1 mg/ml (DILAUDID) HANDLING TECH syringe, 30 ml, , intravenous, CONTINUOUS, Leo Aguilar MD, New Bag at 04/28/211924 ??? ibuprofen (MOTRIN) tablet 400 mg, 400 mg, oral, Q6H PRN, Christin Young MD, 400 mg at ??? ketAMINE (KETALAR) 250 mg in NaCl 0.9% 25 mL syringe, 25 mg/hr, intravenous, CONTINUOUS, Sarah Monet PA-C, Last Rate: 2.5 mL/hr at 04/29/21 0807, 25 mg/hr at 04/29/21 08 ??? lactated ringers (LR) infusion, , intravenous, [...] the patient is sedated). Tizanidine is an naqns-4-xgyhevcp like dexmedetomidine which may help with anxiety, [...] duration of opioid use for specific surgeries: [place] Open Website) ??? Continue hydromorphone HANDLING TECH 0.4 mg every 10 mins No Basal [...] midnight -Antibiotics: Per ID -continuing ceftriaxone. -Continue local/MUSEUM OR ZOO DIRECTOR management of left foot ulceration with outpatient follow-up with melangeur operator -Dispo: Pending. -Possible take back to OR [...] disorder and chronic foot ulcers presents from [facility] for concerns for worsening right arm pain, [...] placed History of Raynaud's disease - Continue MUSEUM OR ZOO DIRECTOR gabapentin ?? Opoid use disorder - Regularly gets Suboxone from [facility] clinic. UDS at OSH positive for cocaine use. - continue MUSEUM OR ZOO DIRECTOR suboxone APS consulted , appreciate recs, pain [...] DAILY (BREAKFAST) ??? HYDROmorphone 1 mg/ml (DILAUDID) HANDLING TECH syringe, 30 ml intravenous CONTINUOUS ??? ibuprofen [...] , , ??? HYDROmorphone 1 mg/ml (DILAUDID) HANDLING TECH syringe, 30 ml, , intravenous, CONTINUOUS, Leo [...] QHS, Sarah Monet PA-C, 2 Tablet at 04/27/214 ??? tiZANidine (ZANAFLEX) tablet 4 mg, 4 [...] the patient is sedated). Tizanidine is an djcmy-2-unoffaul like dexmedetomidine which may help with anxiety, [...] duration of opioid use for specific surgeries: [employer] Website) ??? Continue hydromorphone HANDLING TECH 0.4 mg every 10 mins No Basal [...] patient easily transitioned off of ketamine and HANDLING TECH prior to surgery on 04/27/21. Will expect she will be able to transition easily again. Thank you for including the Acute Pain Service in care of this patient. Please contact us (pager #[phone]) with any questions or concerns. Patient seen [...] primary -Antibiotics: Per ID -continuing ceftriaxone. -Continue local/MUSEUM OR ZOO DIRECTOR management of left foot ulceration with outpatient follow-up with melangeur operator -Dispo: Pending Juan Schmitz MD Orthopaedic Surgery, [...] disorder and chronic foot ulcers presents from [facility] for concerns for worsening right arm pain, [...] Ketamine gtt (manged by APS) - Continue MUSEUM OR ZOO DIRECTOR gabapentin 600mg qD - Tizanidine 4mg PO Q8hr PRN - Ibuprofen 400mg PO q6hr PRN - Dilaudid HANDLING TECH 0.4mg q10 min PRN, no basal rate - Continue MUSEUM OR ZOO DIRECTOR 6mg total as Suboxone 2-0.5mg x 3 film SL daily - Follow-up OSH blood clxs -Called and left message 04/25 (negative BC at [facility] to date suggesting that this may [...] placed History of Raynaud's disease - Continue MUSEUM OR ZOO DIRECTOR gabapentin ?? Opoid use disorder - Regularly gets Suboxone from [facility]. UDS at OSH positive for cocaine use. [...] Chakraborty DO, MPH Family Medicine PGY3, Page #[phone] 04/28/21, 7:28 Associated attestation - Clark Salinas [...] greatly improved from last night. Titration of HANDLING TECH per APS. Anticipate DC tomorrow or possibly Sunday Clark Salinas MD 04/28/2021 13:23 Ayaz Jernigan RN - 04/28/2021 0607 EST Data: Assumed care of patient at 2330 AOx3 on room air with even, nonlabored respirations. Has intact dressing to right arm s/p I&D 04/27. Non-pitting swelling to fingers of right hand. Well healedright BKA. Ketamine infusion at 25 mg/hr and Hydromorphone HANDLING TECH at 0.4 mg q10 mins; 2.4 mg [...] restarted ketamine, trialed Precedex bolus, and restartedhydromorphone HANDLING TECH. Cannot perform brachial plexus block due to [...] , , , HYDROmorphone 1 mg/ml (DILAUDID) HANDLING TECH syringe, 30 ml, , intravenous, CONTINUOUS, Leo [...] 4 mg, 4 mg, oral, Q8H PRN, Joay Camarena MD Allergies: Allergies Allergen Reactions Other [...] Restart Ketamine and increase to 25 mg/hr [place] Precedex bolus 1 mcg/kg over 10 mins to help with post-op pain/anxiety Continue gabapentin 600 mg PO daily Muscle Relaxant: Continue tizanidine 4 mg PO Q8H PRN (hold if systolic blood pressure < 100 mmHg or if the patient is sedated). Tizanidine is an xknvc-0-nqftyucs like dexmedetomidine which may help with anxiety, [...] duration of opioid use for specific surgeries: [place] Open Website) Restart hydromorphone HANDLING TECH 0.4 mg every 10 mins No Basal [...] of this patient. Please contact us (pager #[phone]) with any questions or concerns. Patient seen [...] Poss closure and dc pending result. [id number] Juan Alonzo MD - 04/27/2021 0714 EST [...] OR -Antibiotics: Per ID -continuing ceftriaxone. -Continue local/MUSEUM OR ZOO DIRECTOR management of left foot ulceration with outpatient follow-up with melangeur operator -Plan for operative intervention with orthopedic surgery [...] disorder and chronic foot ulcers presents from [facility] for concerns for worsening right arm pain, [...] gtt (manged by APS) - D/C Dilaudid HANDLING TECH 04/25, transition to dilaudid 4-6 mg PO q3hr for pain - hydromorphone 0.5 mg IV Q4H PRN for breakthough pain - Tizanidine 4mg PO Q8hr - Continue MUSEUM OR ZOO DIRECTOR gabapentin - Continue MUSEUM OR ZOO DIRECTOR suboxone Suboxone 2-0.5mg 3 film SL daily - Follow-up OSH blood clxs -Called and left message 04/25 (negative BC at [facility] to date suggesting that this may [...] recs. History of Raynaud's disease - Continue MUSEUM OR ZOO DIRECTOR gabapentin ?? Opoid use disorder - Regularly gets Suboxone from [facility] clinic. UDS at OSH positive for [...] James MD Family Medicine, PGY-3 04/27/21 6:48 #[id number] Associated attestation - Clark Salinas MD - [...] well after transitioning off of her HM HANDLING TECH to PO hydromorphone. States her pain is [...] (ANCEF) syringe 2 g, 2 g, intravenous, LOOM STARTER TO O.R., Sourav Leal MD cefTRIAXone (ROCEPHIN) [...] 4 mg, 4 mg, oral, Q8H PRN, Joay Camarena MD Allergies: No Known Allergies PHYSICAL [...] the patient is sedated). Tizanidine is an zgqlp-6-rmwkyljc like dexmedetomidine which may help with anxiety, [...] duration of opioid use for specific surgeries: [place] Open Website) Hydromorphone 4-6 mg PO Q3H [...] of this patient. Please contact us (pager #[phone]) with any questions or concerns. Patient seen with Anrold Arredondo MD (Attending) LEO AGUILAR MD Anesthesiology, [...] midnight -Antibiotics: Per ID -continuing ceftriaxone. -Continue local/MUSEUM OR ZOO DIRECTOR management of left foot ulceration with outpatient follow-up with melangeur operator -Dispo: Pending -Plan for repeat I&D with potential wound closure tomorrow 04/27/21 Juan Schmitz MD Orthopaedic Surgery, PGY2 Pager #[phone] Kraig Guerrier MD - 04/26/2021 0653 EST [...] 04/27/2021] ceFAZolin (ANCEF) syringe 2 g intravenous LOOM STARTER TO O.R. ??? cefTRIAXone (ROCEPHIN) 2,000 mg [...] disorder and chronic foot ulcers presents from [facility] for concerns for worsening R arm cellulitis [...] gtt (manged by APS) - D/C Dilaudid HANDLING TECH 04/25, transition to dilaudid 4-6 mg PO q3hr for pain - hydromorphone 0.5 mg IV Q4H PRN for breakthough pain - Tizanidine 4mg PO Q8hr - Continue MUSEUM OR ZOO DIRECTOR gabapentin - Continue MUSEUM OR ZOO DIRECTOR suboxone Suboxone 2-0.5mg 3 film SL daily - Follow-up OSH blood clxs -Called and left message 04/25 (negative [place] [facility] to date suggesting that this may [...] recs. #History of Raynaud's disease - Continue MUSEUM OR ZOO DIRECTOR gabapentin ?? #Opoid use disorder - Regularly gets Suboxone from [facility] clinic. UDS at OSH positive for [...] RODRIGUES MD 04/26/2021 6:53 Family Medicine PGY1 4990 Associated attestation - Clark Salinas MD - [...] Type of housing (single family, condo, apartment, residential, single room occupancy, [facility] funded hotel room, group mcfp) - apartment Who does the patient live with?daughter-9Y.O. Does the patient have access to their own bedroom/bathroom/kitchen - or is it shared with others? own Name of housing complex (ex [address], [facility], etc)- [facility] Housing Authority/Managing Organization - subsidized housing Community Care Providers (returned case inspector, [facility] nurse, etc) name and contact information-na LIVING ARRANGEMENTS AND ACCESSIBILITY ISSUES: Living Arrangements: Children Levels: 1 Stairs to enter: 4 or more Handicap access: None Bathroom located on bedroom level?: Yes What in home social supports are available to the patient? Friends / neighbors Is / care available? No ADVANCED DIRECTIVES, POA &/or COLST IN PLACE: Healthcare Directive: No, patient does not have advance directive for healthcare treatment DIRECTIVES FOR FINANCES: TRANSPORTATION: Transportation: Medicaid/MedicareTransport [place] Transportation: RCT Patient expects to be discharged to: Home CULTURAL, ALEVISM and/or LANGUAGE factors affecting health care/discharge planning: [...] Gait device: Crutch/Walker Community Services: Home health, [facility], [facility]-none of one time a week [...] Home Health Services: None DME Provider: Pharmacy: [id number] - [facility], [place] - [address] [facility] [address] [facility] [address] Home Health: Other: POST HOSPITAL TRANSITION PLAN:Pt [...] ride home and will need to contact [facility] for ride. She states her new PCP is Georgette Ramsey, at [facility] internal Medicine in [facility]. [...] 04/25/21 0848 ??? HYDROmorphone 1 mg/ml (DILAUDID) HANDLING TECH syringe, 30 ml, , intravenous, HANDLING TECH, Kyle Caballero MD, Rate Verify at 04/25/21 0605 ??? ibuprofen (MOTRIN) tablet 400 mg, 400 mg, oral, Q6H PRN, Joya Camarena MD, 400 mg at 04/25/21 0241 ??? ketAMINE (KETALAR) 250 mg in NaCl 0.9% 25 mL syringe, 15 mg/hr, intravenous, CONTINUOUS, Kyle Caballero MD, Last Rate: 1.5 mL/hr at 04/25/21 06, 15 mg/hr at 04/25/21 0606 ??? lactated [...] the patient is sedated). Tizanidine is an fudhx-7-[id number] like dexmedetomidine which may help with anxiety, [...] duration of opioid use for specific surgeries: [employer] Website) ??? Stop HANDLING TECH ??? Start hydromorphone 4-6 mg PO Q3H [...] of this patient. Please contact us (pager #[phone]) with any questions or concerns. Patient seen with Leo Aguilar MD (resident) Arnold Arredondo MD Tomeka Moreno MD - 04/25/2021 0844 EST Orthopedic surgery progress note: Problem: Right deep hand infection with acute carpal tunnel syndrome Procedure: 04/23/2021 (Dr. Shafritz) right open carpal tunnel release and hand [...] her left foot ulceration, she continue her MUSEUM OR ZOO DIRECTOR management with outpatient follow-up with her melangeur operator. TOMEKA HUERTA MD 04/25/2021 8:29 Kraig Guerrier [...] patient on a ketamine gtt and dilaudid HANDLING TECH. Subjective/Objective Subjective Patient resting comfortably in bed [...] DAILY (BREAKFAST) ??? HYDROmorphone 1 mg/ml (DILAUDID) HANDLING TECH syringe, 30 ml intravenous HANDLING TECH ??? ibuprofen (MOTRIN) tablet 400 mg oral [...] disorder and chronic foot ulcers presents from [facility] for concerns for worsening R arm cellulitis [...] gtt (manged by APS) - D/C Dilaudid HANDLING TECH, transition to dilaudid 4-6 mg PO q3hr for pain - Consider hydromorphone 0.5 mg IV Q4H PRN for breakthough pain - Tizanidine 4mg PO Q8hr - Continue MUSEUM OR ZOO DIRECTOR gabapentin - Continue MUSEUM OR ZOO DIRECTOR suboxone Suboxone 2-0.5mg 3 film SL daily - Follow-up OSH blood clxs -Called and left message today (negative BC at [facility] to date suggesting that this may [...] recs. #History of Raynaud's disease - Continue MUSEUM OR ZOO DIRECTOR gabapentin ?? #Opoid use disorder - Regularly gets Suboxone from [facility]. UDS at OSH positive for cocaine use. [...] RODRIGUES MD 04/25/2021 7:16 Family Medicine PGY1 4670 Associated attestation - Clark Salinas MD - [...] an outpatient by her orthopedic surgeon in [place] Clark Salinas MD 04/25/2021 14:23 Elmira Lynne [...] reach ELMIRA LYNNE RN 04/24/2021 16:53 Jona Orozco, ELMER - 04/24/2021 7406 EST ACUTE PAIN SERVICE INITIAL INPATIENT FOLLOW [...] 650 mg, 650 mg, oral, Q6H, Joya Caamrena MD, 650 mg at 04/24/21 0509 ??? [...] Leal MD ??? HYDROmorphone 1 mg/ml (DILAUDID) HANDLING TECH syringe, 30 ml, , intravenous, HANDLING TECH, Kyle Caballero MD, New Bag at 04/23/212026 [...] the patient is sedated). Tizanidine is an fuigd-8-evheayov like dexmedetomidine which may help with anxiety, [...] duration of opioid use for specific surgeries: [employer] Website) ??? Continue HM IV HANDLING TECH 0.4mg q10 ??? Pt's home dose daily [...] of this patient. Please contact us (pager #[phone]) with any questions or concerns. 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 Subjective/Objective Subjective The patient notes that her [...] DAILY (BREAKFAST) ??? HYDROmorphone 1 mg/ml (DILAUDID) HANDLING TECH syringe, 30 ml intravenous HANDLING TECH ??? ibuprofen (MOTRIN) tablet 400 mg oral [...] disorder and chronic foot ulcers presents from [facility] for concerns for worsening R arm cellulitis [...] Ketamine gtt (manged by APS) - Dilaudid HANDLING TECH (managed by APS), HANDLING TECH dose 0.4mg, Max limit 2.4mg/hr - Tizanidine 4mg PO Q8hr - Continue MUSEUM OR ZOO DIRECTOR gabapentin - Continue MUSEUM OR ZOO DIRECTOR suboxone - Follow-up OSH blood clxs (attempted [...] recs. #History of Raynaud's disease - Continue MUSEUM OR ZOO DIRECTOR gabapentin ?? #Opoid use disorder - Regularly gets Suboxone from [facility] clinic. UDS at OSH positive for cocaine use. - Continue MUSEUM OR ZOO DIRECTOR Suboxone 6-1.5 mg once daily - Inpatient substance use treatment algorithm: - UDS samples PRN - Consult pharmacy for med review - Cover all IVs at all time - Substance use agreement signed ?? VTE Prophylaxis Seqential Compression Device *Note patient isn't on apixaban MUSEUM OR ZOO DIRECTOR, as previously noted in her chart. ?? Code: Prior Discharge Plan Home or self care ?? Consults None Gigi Ramos MD 04/24/2021 8:15 Family Medicine [id number] signed by Zhen Beavers III, MD at [...] and she is on ketamine and dilaudid HANDLING TECH. Reassuringly, her clinic picture is slightly improved today as she remains afebrile and with improved leukocytosis. Care of this patient will be assumed by attending provider Dr. Clark Salinas starting tomorrow. Zhen Beavers MD Family Medicine 04/24/21 Sourav Leal MD - 04/24/2021 0735 EST Orthopedic progress note Problem: Acute carpal [...] answer calls. Please direct calls to orthopaedics restoration silversmith resident for further questions. Sourav Corea MD [...] disorder and chronic foot ulcers presents from [facility] for concerns for worsening R arm cellulitis [...] that she has had to come to [place] to seek care, but hopes she is in the right place. Reports she receives her Suboxone (on taper bc wants to get off, decreased to 4+2 QAM about a month ago) for from the [facility] clinic Denies any recent IVDU including in right upper extremity. Denies trauma including around nail of the upper extremity and denies soaking in any water. Reports her UPT was negative at [facility]. History of pseudomonas from a RLE culture. UDS positive for cocaine prior to transfer. Interested in having and 9 year old daughter visit. Review of Systems A complete 10 point ROS was performed and pertinent positive and negative findings listed in HPI, otherwise negative. Past Medical History: Diagnosis Date ??? Bacteremia due to Staphylococcus aureus ??? Cocaine abuse ([facility]) ??? DVT (deep venous thrombosis) ([facility] ([facility]) ??? Hepatitis C antibody positive in blood ??? Iron deficiency anemia ??? Polysubstance abuse ([facility]) ([facility]) ??? Retained foreign body left groin, unsuccessful [...] disorder and chronic foot ulcers presents from [facility] for concerns for worsening R arm cellulitis [...] need med rec if patient still taking MUSEUM OR ZOO DIRECTOR Gabapentin, patient not able to confirm on initial assessment #Opoid use disorder - Regularly gets Suboxone from [facility]. UDS at OSH positive for cocaine use. [...] fluctuance. Psych: Appropriate mood and affect. Access: [facility] Labs Recent Labs 05/03/21 0524 05/04/21 [...] podiatry team. Patient followed closely by podiatry [place] who plans to do an amputation of [...] from last operation: 05/03/2021-05/16/2021 3. Follow-up with melangeur operator in [place] upon discharge who plans to do amputation [...] [START ON 05/03/2021] ceFAZolin, 2 g, intravenous, LOOM STARTER TO O.R. cefTRIAXone (ROCEPHIN) IVPB (2 g [...] or concerns. Malik Cain MD Dermatology, PGY-3 #[id number] 05/02/2021 19:31 Attestation Statement: I saw and examined the patient with the resident/fellow. I agree with the findings and plan of care documented in the resident's/fellow's note. Ramila Mcnamara MD Dermatology [facility] Eren Garner DO - 04/28/2021 0907 [...] mL syringe ??? HYDROmorphone 1 mg/ml (DILAUDID) HANDLING TECH syringe, 30 ml intravenous CONTINUOUS ??? ibuprofen [...] podiatry team. Patient followed closely by podiatry [place] who plans to do an amputation of [...] follow-up with her PCM 2. Follow-up with melangeur operator in [place] upon discharge who plans to do amputation of left great toe per her report. Eren Tavarez DO Pager [phone] Infectious Diseases Attending Eren Garner DO - [...] 04/27/2021] ceFAZolin (ANCEF) syringe 2 g intravenous LOOM STARTER TO O.R. ??? cefTRIAXone (ROCEPHIN) 2,000 mg [...] next blood draw Eren Tavarez DO Pager [phone] Infectious Diseases Attending Aubrey Mar MD - [...] with pain. She was seen at [facility] and a CT showed fluid around [...] Bacteremia due to Staphylococcus aureus, Cocaineabuse ([facility]), DVT (deep venous thrombosis) ([facility] ([facility]), Hepatitis C antibody positive in blood, Iron deficiency anemia, Polysubstance abuse ([facility]) ([facility]), Retained foreign body, and Skin abscess. Past Surgical History: has a past surgical history that includes Ectopic surgery; Abdominal exploration surgery; vascular surgery (Right, 06/29/2017); below knee amputation (Right); and Hand surgery. Medications: MAR reviewed. Anti-infectives: Ceftriaxone 2 g day D3 / Vancomycin D3 Allergies: Patient has no known allergies. 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 [MAR Hold] acetaminophen (TYLENOL) tablet 650 mg, 650 mg, oral, Q6H PRN, Gigi Ramos MD, 650 mg at 04/23/21 9534 ??? atropine 0.1 mg/mL syringe 0.5 mg, 0.5 mg, intravenous, PRN, Iram, Pako, AA ??? [MAR Hold] buprenorphine-naloxone (SUBOXONE) 2-0.5 mg sublingual film 3 Film, 3 Film, sublingual, DAILY, Russell, Maribel, DO, 3 Film at 04/23/21 0819 ??? [JUN Hold] cefTRIAXone (ROCEPHIN) 2,000 mg in sodium chloride (NS MBP) 50 mL IVPB, 2,000 mg, intravenous, Q24H, RussellRoger curryia, DO ??? [MAR Hold] cyclobenzaprine (FLEXERIL) tablet 10 mg, 10 mg, oral, Daily PRN, Gigi Ramos MD, 10 mg at 04/23/21 1424 ??? diphenhydrAMINE (BENADRYL) injection 12.5 mg, 12.5 mg, intravenous, PRN, Ginns, Pako, AA ??? fentaNYL citrate (PF) injection 25-50 mcg, 25-50 mcg, intravenous, Q5 MINUTES PRN, Ginns, Pako, AA ??? [MAR Hold] gabapentin (NEURONTIN) capsule 600 mg, 600 mg, oral, DAILY (BREAKFAST), Gigi Ramos MD ??? HYDROmorphone (DILAUDID) tablet 2-4 mg, 2-4 mg, oral, Q30 MINUTES PRN, Ginns, Pako, AA ??? [MAR Hold] HYDROmorphone (DILAUDID) tablet 4 mg, 4 mg, oral, Q4H PRN, Gigi Ramos MD, 4mg at 04/23/21 1444 ??? HYDROmorphone (PF) (DILAUDID) 0.5 mg/0.5 mL syringe 0.3-0.5 mg, 0.3-0.5 mg, intravenous, Q10 MINUTES PRN, Ginns, Pako, AA, 0.5 mg at 04/23/212031 ??? HYDROmorphone 1 mg/ml (DILAUDID) HANDLING TECH syringe, 30 ml, , intravenous, HANDLING TECH, Ruthie Main DO, New Bag at 04/23/212026 [...] injection 4 mg, 4 mg, intravenous, PRN, Yulys, Pako, AA ??? [JUN Hold] vancomycin (VANCOCIN) [...] the patient is sedated). Tizanidine is an tgxtx-0-kfhczavm like dexmedetomidine which may helpwith anxiety, sleep, [...] duration of opioid use for specific surgeries: [employer] Website) ??? Patient Controlled Analgesia (HANDLING TECH): Start hydromorphone .4 mg per demand 10 [...] of this patient. Please contact us (pager #[phone]) with any questions or concerns. Ruthie Main [...] Diabetes Paternal Grandfather Social History: Lives in [place] with her daughter has been on disability [...] flexor pollicis longus, extensor pollicis longus, interossei, fact checker due to pain; 5/5 strength in elbow [...] 7/0.65/89/--/--/--/-- (04/22 1639) Assessment: Lindsay Jean Baptiste [id number] 1980 Lindsay Jean Baptiste is a right-hand [...] SERVICE DATE: 05/03/2021 SURGEON: Kev Hughes MD TUBULAR RIVETER: Soni Tirado PA-C (no residents available) PREOPERATIVE [...] the operating room by another surgeon at [facility] and undergone an open carpal tunnel release [...] retained. Kev Hughes MD / AM Confirmation: [id number] Dictation ID: [id number] cc: R Surgeon - Shane Cuevas MD - 04/30/2021 0000 EST OPERATIVE REPORT SERVICE DATE: 04/30/2021 PREOPERATIVE DIAGNOSIS: Right hand volar wound. POSTOPERATIVE DIAGNOSIS: Right hand volar wound. PROCEDURE: Right palm and proximal forearm volar wound irrigation and debridement of the carpal tunnel. SURGEON: Shane Cuevas MD TUBULAR RIVETER: Reddy Jerome MD, PGY1 ANESTHESIA: General endotracheal. [...] drains retained. Shane Cuevas MD / Confirmation: [id number] Dictation ID: [id number] cc: R Surgeon - Stone Bansal MD - 04/27/2021 0000 EST OPERATIVE REPORT SERVICE DATE: 04/27/2021 SURGEON: Stone Bansal MD TUBULAR RIVETER: AUBREE Hartley-Certified (No ACGME qualified resident was available to assist because of duty hour restrictions. Because of the complexity of the case, as indicated in the Procedure section; and described in detail in the Narrative section below, I requested AUBREE Hartley, to assist. During this procedure, the PA performed the following functions in the operating room: The operator/assistant foreman at the time of surgery under my [...] drains retained. Stone Bansal MD / Confirmation: [id number] Dictation ID: [id number] cc: R Surgeon - Kyle Caballero MD - 04/24/2021 0105 EST OPERATIVE REPORT SERVICE DATE:04/23/2021 SURGEON: Stone Bansal MD TUBULAR RIVETER: MD Kyle Guerrero MD PREOPERATIVE DIAGNOSIS:right open carpal tunnel syndrome POSTOPERATIVE DIAGNOSIS: same PROCEDURE: right open carpal tunnel release ANESTHESIA: General anesthesia FLUIDS:500 cc TOURNIQUET TIME:24 minutes URINE OUTPUT: 0 SPECIMENS: purulent fluid sent for culture COMPLICATIONS: none INDICATIONS: Lindsay Jean Baptiste is a qfauj-[id number] 40-year-old female with past medical history including [...] proximally and distally by palpation with a [place] as well as direct visualization. The median nerve was inspected andwas found to be without further compression. A [place] was gently used to explore the flexor [...] hand pain. The patient was transferred to [facility] from [facility] over concern [...] Chief Complaint Hand Pain (BIBEMS tx from [facility]. R hand red, swollen and streaking up [...] today with Hand Pain (BIBEMS tx from [facility]. R hand red, swollen and streaking up [...] few days. She was seen yesterday at [facility] was found to be febrile with a leukocytosis. She had blood cultures collected, was started on vancomycin andceftriaxone. CT scan of the right upper extremity showed fluid around the right hand flexor tendons,concerning for flexor tenosynovitis. Original plan was to transfer to [facility], but this fell through and patient was accepted by [facility] orthopedics for evaluation. Patient takes Suboxone, states [...] of any of her fingers. Redness extends care home up the medial forearm, otherwise stops justproximal [...] and summarize past medical records: yes Jazmin Ngoc 04/22/2021 16:59 documented in this encounter Miscellaneous [...] and stool. On Room air. On a HANDLING TECH dilauded pump. EMILY OLSON. Action: Head to [...] closed. States pain is a tolerable 08/07. [facility]. CINDY JAMES LPN 05/04/2021 3:06 rief Op Note - Soni Tirado PA-C - 05/03/2021 1036 EST Date: 04/22/2021 - 05/03/2021 Location: [facility] OR Name: Lindsay Jean Baptiste, : 1980, Diagnosis Pre-Op Diagnosis Codes: * Right arm cellulitis [L03.113] * Acute carpal tunnel syndrome, right [G56.01] Post-op Diagnosis * Right arm cellulitis [L03.113] * Acute carpal tunnel syndrome, right [G56.01] Procedures right hand irrigation and debridement with closure 35322 - LA DEBRIDEMENT, SKIN, SUB-Q TISSUE,MUSCLE,EACH ADD 20 SQ [...] 14 min Rt arm @ 250mmHg Staff: Engine Pilot: Sal Tubbs RN Scrub Person: Nya Balbuena Patient Director Imaging: Ozzie Lizama Indications: Lindsay Jean Baptiste is [...] for the entire procedure Kev Hughes MD [id number] signed by Soni Tirado PA-C at 05/03/2021 [...] and stool. On Room air. On a HANDLING TECH dilauded pump. BKA RLE. Currently NPO for [...] med per eMAR, she is on dilaudid HANDLING TECH we are clear up Q 2 . Patient has her hand elevated. R : Patient is able to move her fingers, the pain seems well controled by HANDLING TECH, non grimaces or moaning, will continue to [...] touch with minimal movement of right fingers. HANDLING TECH dilaudid and ketamine drip in place for [...] Plan Documentation Outcome: Ongoing Flowsheets (Taken 04/30/2021 1139) Area of Focus: Pain/ Comfort Goal This Shift: Pt's pain will be well managed this shift Data: Pt is A/O x3, VSS, reports pain in R arm 5/10. Independent to commode. Ketamine gtt and dilaudid HANDLING TECH. Action: Scheduled medications and PRN Benadryl and [...] cellulitis Procedure(s): Complex I&D UE Wound (CPT 33811) Findings: No purulence or evidence of necrotic [...] 1 cm of the volar wound. Staff: Engine Pilot: Tamika Cox RN Scrub Person: Goldie Barry RN Patient Director Imaging: Gui Livingston Disposition and Condition: PACU in [...] her right arm /fingers. Pt is on HANDLING TECH dilaudid and Ketamine drip for pain management [...] on continuous IVKetamine infusion and IV Dilaudid HANDLING TECH. C/O 5-6/10 right wrist pain intermittently throughout [...] on Ketamine drip as well as Dilaudid HANDLING TECH with verbalized effect. Dressing and splint clean, [...] Continuous Ketamine infusion as well as Dilaudid HANDLING TECH with verbalized positive effect. Dressing clean, dry, [...] 0909 EST Date: 04/22/2021 - 04/27/2021 Location: [facility] OR Name: Lindsay Jean Baptiste, : 1980, Diagnosis Pre-Op Diagnosis Codes: * Right arm cellulitis [L03.113] Post-op Diagnosis * Right arm cellulitis [L03.113] Procedures COMPLEX INCISION AND DRAINAGE, WOUND, UPPER EXTREMITY 51810 - LA COMPLEX DRAINAGE, WOUND Surgeons * Stone Bansal MD - Primary Flako MAK operator/assistant foreman Procedure Summary Anesthesia: General ASA: III Estimated [...] Wound 04/23/21 Incision Right;Anterior Wrist (Active) Staff: Engine Pilot: Sal Tubbs RN Scrub Person: Christiano Reyes; Mendel Chavez LNA Patient Director Imaging: Sourav Garcia Indications: Lindsay Jean Baptiste is [...] for the entire procedure Stone Bansal MD [id number] signed by Sarah Monet PA-C at 04/27/2021 [...] and using bedside commode. NWB on RUE. HANDLING TECH Ketamin infusing. Going to NPO after midnight for I&D with potential wound closure tomorrow. C/o pain 6-8/10 on RUE. Reported ear ringing this morning. MD aware. Stop ketamine drip for 1 hr per MD order. Action: Administered medications as per ordered. Given PRN dilaudid, ibuprofen and scheduled tylenol,HANDLING TECH ketamine for pain. Hourly checks and monitor [...] she states a wound care clinic in [place] has been tending to her chronic wound [...] pillow routinely. Action: changed dressing, d/'d dilaudid second vp hr assessment, monitored pain control regularly. Response: pt removed [...] Ketamine drip @ 1.5 mL/hr and Dilaudid HANDLING TECH in place. 3x R-sided IJ in place, continuous LR running @ 75 mL/hr. Pt NPO at midnight pending surgery on RUE today. Pt denies chest pain, SOB, N/V, or headache at this time. Action: Assessment complete, medicated per JUN- new Dilaudid and Ketamine syringes, rates [id number]. Hourly rounding complete, clustered care to promote [...] continuous Ketamine infusions as well as Dilaudid HANDLING TECH through right CVC. Continues on IV antibiotic therapy with tolerance. Voided large amount of clear odorless urine at 0245 without difficulty. Complaints of 6/10 discomfort. Action: Medications administered as ordered, see MAR. Care clustered to promote sleep and comfort. Response: In bed with eyes closed. CATRACHITA BARNETT RN 04/24/2021 3:23 harmacy Note - Alethea Pacheco [facility] - 04/24/2021 0307 EST Pharmacy [...] Surgeon: Stone Bansal MD, Sourav Bolden MD Java Development Team Lead: Kyle Caballero MD Anesthesia Type: General Tourniquet [...] MANUAL (05/04/2021 5:52 EST) Neutrophils 57.0 % [facility] Lymphocytes 31.0 % [facility] Atypical Lymphocytes 3.0 % [facility] Monocytes 6.0 % [facility] Eosinophils 3.0 % [facility] Absolute Neutrophils 1.11 (L) 2.20 - 8.85 [facility]ORATORY SERVICES Absolute Lymphocytes 0.60 (L) 1.09 - 3.30 [facility] LABORATORY SERVICES Absolute Atypical 0.06 K/m [facility] Lymphocytes LABORATORY SERVICES Absolute Monocytes 0.12 0.10 - 0.80 [facility] LABORATORY SERVICES Absolute Eosinophils 0.06 0.03 - 0.61 [facility] LABORATORY SERVICES Specimen Blood - Venous blood (substance) Performing Organization Address City/State/ZIP Code Phon e Number [facility] [address] [place] [address] SERVICES (ABNORMAL) COMPLETE BLOOD COUNT AND DIFFERENTIAL (05/04/2021 5:52 EST) Pathologist Sig nature WBC 1.95 (L) 4.00 - 12.40 [facility] K/critical access hospital LABORATORY SERVICES RBC 3.29 (L) 3.86 - 5.04 [facility] M/cm LABORATORY SERVICES Hemoglobin 8.9 (L) 11.6 - 15.2 [facility] gm/dL LABORATORY SERVICES HCT 29.1 (L) 34.9 - 44.4 % [facility] MCV 88 81 - 98 fl [facility] MCH 27.1 26.7 - 33.3 pg [facility] SERVICES MCHC 30.6 (L) 32.1 - 35.9 [facility] gm/dL LABORATORY SERVICES RDW-CV 12.7 <14.7 % [facility] SERVICES RDW-SD 41.6 <50.4 fl [facility] PLT 218 141 - 377 K/m [facility] SERVICES MPV 10.6 9.5 - 12.7 fl [facility] SERVICES Type of Manual [facility] Differential: LABORATORY SERVICES Specimen Blood - Venous blood (substance) Performing Organization Address City/[facility]/ZIP Code Phon e Number [facility] [address] [place] [address] SERVICES BASIC METABOLIC PANEL (BMP) (05/04/2021 5:51 EST) Pathologist Sig nature Sodium 137 136 - 145 mmol/L [facility] SERVICES Potassium 4.2 3.5 - 5.0 mmol/L [facility] SERVICES Chloride 99 96 - 110 mmol/L [facility] SERVICES CO2 Total 29 22 - 32 mmol/L [facility] SERVICES Anion Gap 9 8 - 16 [facility] SERVICES Glucose 97 70 - 100 mg/dL [facility] SERVICES Calcium 8.5 8.5 - 10.5 mg/dL [facility] SERVICES BUN 17 10 - 26 mg/dL [facility] SERVICES Creatinine 0.59 0.52 - 1.04 mg/dL [facility] SERVICES eGFR 117 >60 mL/min/1.73m2 [facility] SERVICES Specimen Blood - Venous blood (substance) Performing Organization Address [facility]/[place] [facility] [place] [facility] [address] [place] [address] SERVICES TRANSTHORACIC ECHO (TTE) COMPLETE W/DOPPLER W/CF [...] Cryoglobulin, S Negative Negative %ppt [facility] Comment: LABORATORIES This test is negative at 24 hours. All samples are hel d and reviewed again at 7 days. If delayed precipitation occ urs after 7 days, Immunofixation will be performed and an additional report will follow. Test Performed by: [facility] [address] [place] [address] Computer Compositor: Jake Cordova M.D. Ph.D.; CLIA# [id number] Specimen Blood - Venous blood (substance) Performing Organization Address [facility]/[place]IP [facility] [place] [facility] [address] [place] [address] HOLD RED TOP (05/03/2021 5:43 EST) Pathologist Sig nature Hold Hold [facility] Y SERVICES Specimen Blood - Venous blood (substance) Performing Organization Address [facility] Phon e Number [facility] [address] [place] [address] SERVICES HOLD RED TOP (05/03/2021 5:42 EST) Pathologist Sig nature Hold Hold [facility] SERVICES Specimen Blood - Venous blood (substance) Performing Organization Address [facility] Phon e Number [facility] [address] [place] [address] SERVICES (ABNORMAL) BASIC METABOLIC PANEL (BMP) (05/03/2021 5:25 EST) Pathologist Sig nature Sodium 137 136 - 145 mmol/L [facility] SERVICES Potassium 4.2 3.5 - 5.0 mmol/L [facility] SERVICES Chloride 98 96 - 110 mmol/L [facility] SERVICES CO2 Total 29 22 - 32 mmol/L [facility] SERVICES Anion Gap 10 8 - 16 [facility] SERVICES Glucose 111 (H) 70 - 100 mg/dL [facility] SERVICES Calcium 9.0 8.5 - 10.5 mg/dL [facility] SERVICES BUN 21 10 - 26 mg/dL [facility] SERVICES Creatinine 0.69 0.52 - 1.04 mg/dL [facility] SERVICES eGFR 111 >60 mL/min/1.73m2 [facility] SERVICES Specimen Blood - Venous blood (substance) Performing Organization Address [facility] Phon e Number [facility] [address] [place] [address] SERVICES (ABNORMAL) COMPLETE BLOOD COUNT AND DIFFERENTIAL (05/03/2021 5:24 EST) WBC 2.37 (L) 4.00 - 12.40 [facility]/critical access hospital LABORATORY SERVICES RBC 3.41 (L) 3.86 - 5.04 [facility]/critical access hospital LABORATORY SERVICES Hemoglobin 9.7 (L) 11.6 - 15.2 [facility] gm/dL LABORATORY SERVICES HCT 29.4 (L) 34.9 - 44.4 % [facility] SERVICES MCV 86 81 - 98 fl [facility] SERVICES MCH 28.4 26.7 - 33.3 pg [facility] SERVICES MCHC 33.0 32.1 - 35.9 [facility] gm/dL LABORATORY SERVICES RDW-CV 13.0 <14.7 % [facility] SERVICES RDW-SD 40.5 <50.4 fl [facility] SERVICES PLT 236 141 - 377 K/[facility] LABORATORY SERVICES MPV 10.9 9.5 - 12.7 fl [facility] SERVICES Neutrophils 63.7 % [facility] SERVICES Lymphocytes 20.7 % [facility] SERVICES Monocytes 12.7 % [facility] SERVICES Eosinophils 0.8 % [facility] SERVICES Basophils 0.8 % [facility] SERVICES Immature Grans 1.3 % [facility] SERVICES Absolute Neutrophils 1.51 (L) 2.20 - 8.85 [facility] LABORATORY SERVICES Absolute Lymphocytes 0.49 (L) 1.09 - 3.30 [facility] LABORATORY SERVICES Absolute Monocytes 0.30 0.10 - 0.80 [facility] LABORATORY SERVICES Absolute Eosinophils 0.02 (L) 0.03 - 0.61 [facility] LABORATORY SERVICES Absolute Basophils 0.02 0.01 - 0.11 [facility] LABORATORY SERVICES Absolute Immature 0.03 0.00 - 0.06 [facility] LABORATORY SERVICES Type of Differential: Auto [facility] SERVICES Specimen Blood - Venous blood (substance) Performing Organization Address City/State/ZIP Code Phon e Number [facility] [address] [place] [address] SERVICES BACTERIAL CULTURE, BLOOD (05/02/2021 16:26 EST) Pathologist Sig nature Organism ID No Growth at 5 days [facility] SERVICES Specimen Blood - Venous blood (substance) Performing Organization Address [facility]/ZIP Code Phon e Number [facility] [address] [place] [address] SERVICES BACTERIAL CULTURE, BLOOD (05/02/2021 16:26 EST) Pathologist Sig nature Organism ID No Growth at 5 days [facility] SERVICES Specimen Blood - Venous blood (substance) Performing Organization Address [facility]/ZIP Code Phon e Number [facility] [address] [place] [address] SERVICES FERRITIN (05/02/2021 6:05 EST) Pathologist Sig nature Ferritin 61 10 - 291 ng/mL [facility] ORY SERVICES Specimen Blood - Venous blood (substance) Performing Organization Address [facility]/ZIP Code Phon e Number [facility] [address] [place] [address] SERVICES IBC (05/02/2021 6:05 EST) Pathologist Sig nature Iron Binding 320 265 - 497 ??g/dL [facility] LABORATORY SERVICES Specimen Blood - Venous blood (substance) Performing Organization Address City/[facility]/ZIP Code Phon e Number [facility] [address] [place] [address] SERVICES IRON (05/02/2021 6:05 EST) Pathologist Sig nature Iron 39 37 - 170 ??g/dL [facility] T[facility] SERVICES Specimen Blood - Venous blood (substance) Performing Organization Address [facility]/ZIP Code Phon e Number [facility] [address] [place] [address] SERVICES (ABNORMAL) BASIC METABOLIC PANEL (BMP) (05/02/2021 6:05 EST) Pathologist Sig nature Sodium 135 (L) 136 - 145 mmol/L [facility] SERVICES Potassium 4.0 3.5 - 5.0 mmol/L [facility] SERVICES Chloride 98 96 - 110 mmol/L [facility] SERVICES CO2 Total 29 22 - 32 mmol/L [facility] SERVICES Anion Gap 8 8 - 16 [facility] SERVICES Glucose 93 70 - 100 mg/dL [facility] SERVICES Calcium 8.9 8.5 - 10.5 mg/dL [facility] SERVICES BUN 19 10 - 26 mg/dL [facility] SERVICES Creatinine 0.64 0.52 - 1.04 mg/dL [facility] SERVICES eGFR 114 >60 mL/min/1.73m2 [facility] SERVICES Specimen Blood - Venous blood (substance) Performing Organization Address City/State/ZIP Code Phon e Number [facility] [address] [place] [address] SERVICES (ABNORMAL) COMPLETE BLOOD COUNT AND DIFFERENTIAL (05/02/2021 6:05 EST) WBC 4.30 4.00 - 12.40 [facility]/critical access hospital LABORATORY SERVICES RBC 3.24 (L) 3.86 - 5.04 [facility] LABORATORY SERVICES Hemoglobin 8.9 (L) 11.6 - 15.2 [facility] gm/dL LABORATORY SERVICES HCT 29.2 (L) 34.9 - 44.4 % [facility] SERVICES MCV 90 81 - 98 fl [facility] SERVICES MCH 27.5 26.7 - 33.3 pg [facility] SERVICES MCHC 30.5 (L) 32.1 - 35.9 [facility] gm/dL LABORATORY SERVICES RDW-CV 12.7 <14.7 % [facility] SERVICES RDW-SD 41.8 <50.4 fl [facility] SERVICES PLT 220 141 - 377 K/[facility] LABORATORY SERVICES MPV 10.4 9.5 - 12.7 fl [facility] SERVICES Neutrophils 76.9 % [facility] SERVICES Lymphocytes 9.8 % [facility] SERVICES Monocytes 10.0 % [facility] SERVICES Eosinophils 1.2 % [facility] SERVICES Basophils 0.7 % [facility] SERVICES Immature Grans 1.4 % [facility] SERVICES Absolute Neutrophils 3.31 2.20 - 8.85 [facility] LABORATORY SERVICES Absolute Lymphocytes 0.42 (L) 1.09 - 3.30 [facility] LABORATORY SERVICES Absolute Monocytes 0.43 0.10 - 0.80 [facility] LABORATORY SERVICES Absolute Eosinophils 0.05 0.03 - 0.61 [facility] LABORATORY SERVICES Absolute Basophils 0.03 0.01 - 0.11 [facility] K/cm LABORATORY SERVICES Absolute Immature 0.06 0.00 - 0.06 [facility] K/critical access hospital LABORATORY SERVICES Type of Differential: Auto [facility] SERVICES Specimen Blood - Venous blood (substance) Performing Organization Address [facility] Phon e Number [facility] [address] [place] [address] SERVICES (ABNORMAL) BASIC METABOLIC PANEL (BMP) (05/01/2021 5:32 EST) Pathologist Sig nature Sodium 137 136 - 145 mmol/L [facility] SERVICES Potassium 4.8 3.5 - 5.0 mmol/L [facility] SERVICES Chloride 98 96 - 110 mmol/L [facility] SERVICES CO2 Total 29 22 - 32 mmol/L [facility] SERVICES Anion Gap 10 8 - 16 [facility] SERVICES Glucose 100 70 - 100 mg/dL [facility] SERVICES Calcium 9.1 8.5 - 10.5 mg/dL [facility] SERVICES BUN 28 (H) 10 - 26 mg/dL [facility] SERVICES Creatinine 0.72 0.52 - 1.04 mg/dL [facility] SERVICES eGFR 107 >60 mL/min/1.73m2 [facility] SERVICES Specimen Blood - Venous blood (substance) Performing Organization Address [facility]/ZIP Code Phon e Number [facility] [address] [place] [address] SERVICES (ABNORMAL) COMPLETE BLOOD COUNT AND DIFFERENTIAL (05/01/2021 5:32 EST) WBC 6.24 4.00 - 12.40 [facility] K/cmm LABORATORY SERVICES RBC 3.36 (L) 3.86 - 5.04 [facility] M/critical access hospital LABORATORY SERVICES Hemoglobin 9.6 (L) 11.6 - 15.2 [facility] gm/dL LABORATORY SERVICES HCT 29.5 (L) 34.9 - 44.4 % [facility] SERVICES MCV 88 81 - 98 fl [facility] SERVICES MCH 28.6 26.7 - 33.3 pg [facility] SERVICES MCHC 32.5 32.1 - 35.9 [facility] gm/dL LABORATORY SERVICES RDW-CV 12.9 <14.7 % [facility] SERVICES RDW-SD 41.1 <50.4 fl [facility] SERVICES PLT 351 141 - 377 K/[facility] LABORATORY SERVICES MPV 9.8 9.5 - 12.7 fl [facility] SERVICES Neutrophils 74.3 % [facility] SERVICES Lymphocytes 12.7 % [facility] SERVICES Monocytes 7.7 % [facility] SERVICES Eosinophils 2.6 % [facility] SERVICES Basophils 0.8 % [facility] SERVICES Immature Grans 1.9 % [facility] SERVICES Absolute Neutrophils 4.64 2.20 - 8.85 [facility] LABORATORY SERVICES Absolute Lymphocytes 0.79 (L) 1.09 - 3.30 [facility] LABORATORY SERVICES Absolute Monocytes 0.48 0.10 - 0.80 [facility] LABORATORY SERVICES Absolute Eosinophils 0.16 0.03 - 0.61 [facility] LABORATORY SERVICES Absolute Basophils 0.05 0.01 - 0.11 [facility] LABORATORY SERVICES Absolute Immature 0.12 (H) 0.00 - 0.06 [facility] LABORATORY SERVICES Type of Differential: Auto [facility] SERVICES Specimen Blood - Venous blood (substance) Performing Organization Address City/State/ZIP Code Phon e Number [facility] [address] [place] [address] SERVICES BASIC METABOLIC PANEL (BMP) (04/30/2021 5:42 EST) Pathologist Sig nature Sodium 138 136 - 145 mmol/L [facility] SERVICES Potassium 4.8 3.5 - 5.0 mmol/L [facility] SERVICES Chloride 98 96 - 110 mmol/L [facility] SERVICES CO2 Total 29 22 - 32 mmol/L [facility] SERVICES Anion Gap 11 8 - 16 [facility] SERVICES Glucose 99 70 - 100 mg/dL [facility] SERVICES Calcium 9.4 8.5 - 10.5 mg/dL [facility] SERVICES BUN 24 10 - 26 mg/dL [facility] SERVICES Creatinine 0.69 0.52 - 1.04 mg/dL [facility] SERVICES eGFR 111 >60 mL/min/1.73m2 [facility] SERVICES Specimen Blood - Venous blood (substance) Performing Organization Address City/State/ZIP Code Phon e Number [facility] [address] [place] [address] SERVICES (ABNORMAL) COMPLETE BLOOD COUNT AND DIFFERENTIAL (04/30/2021 5:41 EST) WBC 7.18 4.00 - 12.40 [facility]/critical access hospital LABORATORY SERVICES RBC 3.65 (L) 3.86 - 5.04 [facility] LABORATORY SERVICES Hemoglobin 10.1 (L) 11.6 - 15.2 [facility] gm/dL LABORATORY SERVICES HCT 32.9 (L) 34.9 - 44.4 % [facility] SERVICES MCV 90 81 - 98 fl [facility] SERVICES MCH 27.7 26.7 - 33.3 pg [facility] SERVICES MCHC 30.7 (L) 32.1 - 35.9 [facility] gm/dL LABORATORY SERVICES RDW-CV 13.0 <14.7 % [facility] SERVICES RDW-SD 42.9 <50.4 fl [facility] SERVICES PLT 359 141 - 377 K/[facility] LABORATORY SERVICES MPV 9.9 9.5 - 12.7 fl [facility] SERVICES Neutrophils 64.6 % [facility] SERVICES Lymphocytes 19.5 % [facility] SERVICES Monocytes 8.1 % [facility] SERVICES Eosinophils 2.9 % [facility] SERVICES Basophils 0.7 % [facility] SERVICES Immature Grans 4.2 % [facility] SERVICES Absolute Neutrophils 4.64 2.20 - 8.85 [facility] LABORATORY SERVICES Absolute Lymphocytes 1.40 1.09 - 3.30 [facility] LABORATORY SERVICES Absolute Monocytes 0.58 0.10 - 0.80 [facility] LABORATORY SERVICES Absolute Eosinophils 0.21 0.03 - 0.61 [facility] LABORATORY SERVICES Absolute Basophils 0.05 0.01 - 0.11 [facility] LABORATORY SERVICES Absolute Immature 0.30 (H) 0.00 - 0.06 [facility] LABORATORY SERVICES Type of Differential: Auto [facility] SERVICES Specimen Blood - Blood sample taken from central line (situation) Performing Organization Address [facility] Phon e Number [facility] [address] [place] [address] SERVICES COVID-19 TEST [facility] LAB PCR (04/29/2021 15:26 EST) Specimen Swab - Entire nasopharynx (body structur e) Performing Organization Address [facility] Phon e Number [facility] [address] [place] [address] SERVICES COVID-19 TESTING (04/29/2021 15:26 EST) COVID-19 rt-PCR Negative Negative [facility] MEDICAL Result Comment: CENTER LABORATORY This [...] and epidemiological informatio n. Performed on the [employer] Fusion instrument Performing Lab [place] [facility] Lab [facility] SERVICES Specimen Swab - Entire nasopharynx (body structur e) Performing Organization Address [facility] Phon e Number [facility] [address] [place] [address] SERVICES BASIC METABOLIC PANEL (BMP) (04/29/2021 5:38 EST) Pathologist Sig nature Sodium 137 136 - 145 mmol/L [facility] SERVICES Potassium 4.7 3.5 - 5.0 mmol/L [facility] SERVICES Chloride 99 96 - 110 mmol/L [facility] SERVICES CO2 Total 29 22 - 32 mmol/L [facility] SERVICES Anion Gap 9 8 - 16 [facility] SERVICES Glucose 99 70 - 100 mg/dL [facility] SERVICES Calcium 9.3 8.5 - 10.5 mg/dL [facility] SERVICES BUN 18 10 - 26 mg/dL [facility] SERVICES Creatinine 0.60 0.52 - 1.04 mg/dL [facility] SERVICES eGFR 116 >60 mL/min/1.73m2 [facility] SERVICES Specimen Blood - Venous blood (substance) Performing Organization Address City/State/ZIP Code Phon e Number [facility] [address] [place] [address] SERVICES (ABNORMAL) COMPLETE BLOOD COUNT AND DIFFERENTIAL (04/29/2021 5:38 EST) WBC 10.20 4.00 - 12.40 [facility]/critical access hospital LABORATORY SERVICES RBC 3.45 (L) 3.86 - 5.04 [facility]/critical access hospital LABORATORY SERVICES Hemoglobin 9.8 (L) 11.6 - 15.2 [facility] gm/dL LABORATORY SERVICES HCT 30.2 (L) 34.9 - 44.4 % [facility] SERVICES MCV 88 81 - 98 fl [facility] SERVICES MCH 28.4 26.7 - 33.3 pg [facility] SERVICES MCHC 32.5 32.1 - 35.9 [facility] gm/dL LABORATORY SERVICES RDW-CV 13.1 <14.7 % [facility] SERVICES RDW-SD 41.3 <50.4 fl [facility] SERVICES PLT 312 141 - 377 /[facility] LABORATORY SERVICES MPV 9.9 9.5 - 12.7 fl [facility] SERVICES Neutrophils 74.9 % [facility] SERVICES Lymphocytes 12.2 % [facility] SERVICES Monocytes 7.5 % [facility] SERVICES Eosinophils 2.8 % [facility] SERVICES Basophils 0.5 % [facility] SERVICES Immature Grans 2.1 % [facility] SERVICES Absolute Neutrophils 7.64 2.20 - 8.85 [facility]/cm LABORATORY SERVICES Absolute Lymphocytes 1.24 1.09 - 3.30 [facility]/critical access hospital LABORATORY SERVICES Absolute Monocytes 0.77 0.10 - 0.80 [facility] K/critical access hospital LABORATORY SERVICES Absolute Eosinophils 0.29 0.03 - 0.61 [facility] K/critical access hospital LABORATORY SERVICES Absolute Basophils 0.05 0.01 - 0.11 [facility] K/critical access hospital LABORATORY SERVICES Absolute Immature 0.21 (H) 0.00 - 0.06 [facility]/critical access hospital LABORATORY SERVICES Type of Differential: Auto [facility] SERVICES Specimen Blood - Venous blood (substance) Performing Organization Address [facility] Phon e Number [facility] [address] [place] [phone] SERVICES BASIC METABOLIC PANEL (BMP) (04/28/2021 7:43 EST) Pathologist Sig nature Sodium 139 136 - 145 mmol/L [facility] SERVICES Potassium 4.6 3.5 - 5.0 mmol/L [facility] SERVICES Chloride 99 96 - 110 mmol/L [facility] SERVICES CO2 Total 28 22 - 32 mmol/L [facility] SERVICES Anion Gap 12 8 - 16 [facility] SERVICES Glucose 99 70 - 100 mg/dL [facility] SERVICES Calcium 8.9 8.5 - 10.5 mg/dL [facility] SERVICES BUN 14 10 - 26 mg/dL [facility] SERVICES Creatinine 0.66 0.52 - 1.04 mg/dL [facility] SERVICES eGFR 112 >60 mL/min/1.73m2 [facility] SERVICES Specimen Blood - Venous blood (substance) Performing Organization Address [facility] Phon e Number [facility] [address] [place] [address] SERVICES (ABNORMAL) COMPLETE BLOOD COUNT AND DIFFERENTIAL (04/28/2021 7:03 EST) WBC 9.14 4.00 - 12.40 [facility] K/critical access hospital LABORATORY SERVICES RBC 3.41 (L) 3.86 - 5.04 [facility] M/critical access hospital LABORATORY SERVICES Hemoglobin 9.6 (L) 11.6 - 15.2 [facility] gm/dL LABORATORY SERVICES HCT 30.0 (L) 34.9 - 44.4 % [facility] SERVICES MCV 88 81 - 98 fl [facility] SERVICES MCH 28.2 26.7 - 33.3 pg [facility] SERVICES MCHC 32.0 (L) 32.1 - 35.9 [facility] gm/dL LABORATORY SERVICES RDW-CV 13.2 <14.7 % [facility] SERVICES RDW-SD 42.4 <50.4 fl [facility] SERVICES PLT 292 141 - 377 [facility] MPV 10.2 9.5 - 12.7 fl [facility] SERVICES Neutrophils 71.1 % [facility] SERVICES Lymphocytes 13.2 % [facility] SERVICES Monocytes 9.4 % [facility] SERVICES Eosinophils 3.1 % [facility] SERVICES Basophils 0.7 % [facility] SERVICES Immature Grans 2.5 % [facility] SERVICES Absolute Neutrophils 6.50 2.20 - 8.85 [facility] LABORATORY SERVICES Absolute Lymphocytes 1.21 1.09 - 3.30 [facility] LABORATORY SERVICES Absolute Monocytes 0.86 (H) 0.10 - 0.80 [facility] LABORATORY SERVICES Absolute Eosinophils 0.28 0.03 - 0.61 [facility] LABORATORY SERVICES Absolute Basophils 0.06 0.01 - 0.11 [facility] LABORATORY SERVICES Absolute Immature 0.23 (H) 0.00 - 0.06 [facility] LABORATORY SERVICES Type of Differential: Auto [facility] SERVICES Specimen Blood - Blood sample taken from central line (situation) Performing Organization Address City/State/ZIP Code Phon e Number [facility] [address] [place] [address] SERVICES EKG 12-LEAD (04/27/2021 13:19 EST) Specimen Narrative [facility] EKG - 04/28/2021 16:1 0 EST ? [facility] ? Test Date: ?2021-04-27 Pat Name: ? LINDSAY JEAN BAPTISTE ?Department: ?? Pacu ? Room: ? OR Gender: ? Female ? 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 [id number] : ?1980 ? Requested By: TAWANDAMERT PATTON L Order Number: [id number] ? Reading MD: ?? DENIS ROSARIO MD ? Measurements Intervals ?Inez ? Rate: ? 75 ? P: ?39 LA: ? 150 ?QRS: ?9 QRSD: ? 89 [...] Note Denis Rosario MD - 04/28/2021 [facility] Test Date: 2021-04-27 Pat Name: LINDSAY JEAN BAPTISTE Department: Pacu Room: OR Gender: Female [employer] Operator: [id number] : 1980 Requested By: SOBIA William Order Number: [id number] Reading MD: Katiuska ROSARIO MD Measurements Intervals Inez Rate: 75 P: 39 LA: 150 QRS: 9 QRSD: 89 T: 26 [...] by DENIS ROSARIO MD. Performing Organization Address [facility]/ZIP Code Phon e Number [facility] EKG (ABNORMAL) ANAEROBE CULTURE/SMEAR(INC. AEROBES), OTHER (04/27/2021 9:38 EST) Organism ID Rare Streptococcus [facility] dysgalactiae LABORATORY SERVICES (A)Comment: Penicillin and ampicillin are drugs of choice for treatment of beta hemolytic streptococcal infections. Smear No Neutrophils Seen [facility] LABORATORY SERVICES Smear No bacteria seen [facility] LABORATORY SERVICES Specimen Tissue - Soft tissue (navigational christina pt) Performing Organization Address City/[facility]/ZIP Code Phon e Number [facility] LABORATORY [address] [place] [address] SERVICES HEPATITIS A ANTIBODY IGM (04/27/2021 5:30 EST) Pathologist Sig nature Hepatitis A Antibody, Negative Negative [facility] IgM LABORATORY SERVICES Specimen Blood - Venous blood (substance) Narrative [facility] LABORATORY SERVICES - 04/27/2021 11:27 EST The results of this assay can be falsely lowered due to the consumption of Biotin. Performing Organization Address [facility] Phon e Number [facility]ORATORY [address] [place] [phone] SERVICES (ABNORMAL) BASIC METABOLIC PANEL (BMP) (04/27/2021 5:30 EST) Pathologist Sig nature Sodium 138 136 - 145 mmol/L [facility] LABORATORY SERVICES Potassium 4.3 3.5 - 5.0 mmol/L [facility] LAB[facility] SERVICES Chloride 100 96 - 110 mmol/L [facility] SERVICES CO2 Total 29 22 - 32 mmol/L [facility] SERVICES Anion Gap 9 8 - 16 [facility] SERVICES Glucose 104 (H) 70 - 100 mg/dL [facility] LAB[facility] SERVICES Calcium 8.7 8.5 - 10.5 mg/dL [facility] LAB[facility] SERVICES BUN 17 10 - 26 mg/dL [facility] SERVICES Creatinine 0.63 0.52 - 1.04 mg/dL [facility] LABOR[facility] SERVICES eGFR 114 >60 mL/min/1.73m2 [facility] LABORATORY SERVICES Specimen Blood - Venous blood (substance) Performing Organization Address [facility] Phon e Number [facility] LABOR[facility]ORY [address] [place] [address] SERVICES (ABNORMAL) COMPLETE BLOOD COUNT AND DIFFERENTIAL (04/27/2021 5:30 EST) WBC 6.29 4.00 - 12.40 [facility] K[facility]critical access hospital LABORATORY SERVICES RBC 3.43 (L) 3.86 - 5.04 [facility] M[facility]critical [facility] hospital LABORATORY SERVICES Hemoglobin 9.5 (L) 11.6 - 15.2 [facility] gm/dL LABORATORY SERVICES HCT 30.3 (L) 34.9 - 44.4 % [facility] LABORATORY SERVICES MCV 88 81 - 98 fl [facility] LABOR[facility] SERVICES MCH 27.7 26.7 - 33.3 pg [facility] LABORATORY SERVICES MCHC 31.4 (L) 32.1 - 35.9 [facility] gm/dL LABORATORY SERVICES RDW-CV 13.2 <14.7 % [facility] LABORATORY SERVICES RDW-SD 42.5 <50.4 fl [facility] LABORATORY SERVICES PLT 257 141 - 377 K/[facility] LABORATORY SERVICES MPV 10.2 9.5 - 12.7 fl [facility] LABORATORY SERVICES Neutrophils 64.4 % [facility] LAB[facility] SERVICES Lymphocytes 18.3 % [facility] LAB[facility] SERVICES Monocytes 8.7 % [facility] LABOR[facility]ORY SERVICES Eosinophils 3.3 % [facility] SERVICES Basophils 0.8 % [facility] LABOR[facility] SERVICES Immature Grans 4.5 % [facility] LABORATORY SERVICES Absolute Neutrophils 4.05 2.20 - 8.85 [facility] LABORATORY SERVICES Absolute Lymphocytes 1.15 1.09 - 3.30 [facility] LABORATORY SERVICES Absolute Monocytes 0.55 0.10 - 0.80 [facility] LABORATORY SERVICES Absolute Eosinophils 0.21 0.03 - 0.61 [facility] LABORATORY SERVICES Absolute Basophils 0.05 0.01 - 0.11 [facility] LABORATORY SERVICES Absolute Immature 0.28 (H) 0.00 - 0.06 [facility] LABORATORY SERVICES Type of Differential: Auto [facility] LABORATORY SERVICES Specimen Blood - Venous blood (substance) Performing Organization Address [facility]/[place] [facility] [place] [facility] [address] [place] [address] SERVICES HEPATITIS B CORE ANTIBODY (TOTAL) (04/27/2021 5:30 EST) Pathologist Sig nature Hepatitis B Core Ab, Negative Negative [facility] Total LABORATORY SERVICES Specimen Blood - Venous blood (substance) Performing Organization Address City/[facility]/ZIP Code Phon e Number [facility] [address] [place] [address] SERVICES HEPATITIS B SURFACE ANTIGEN (04/27/2021 5:30 EST) Pathologist Sig nature Hep B Surface Ag Negative Negative [facility] LABORATORY SERVICES Specimen Blood - Venous blood (substance) Performing Organization Address [facility]/[place] [facility] [place] [facility] [address] [place] [address] SERVICES HEPATITIS B SURFACE ANTIBODY (04/27/2021 5:30 EST) Hep B Surface Ab, >1000.0 See Note [facility] Quantitative Comment: mIU/mL [facility]ENTER LABORATORY Reference Range for Hep B Surface Ab, Quant: SERVICES Positive: >= 10.0 mIU/mL Negative: ??< 10.0 mIU/mL Patient is presumed to be immune to infection with Hep atitis B Virus. Hep B Surface Ab, Positive See Note [facility] MEDICAL Qualitative Comment: [facility] Reference Range for Hep B Surface Ab, Qual: SERVICES Unvaccinated: ??Negative Vaccinated: ??Positive Specimen Blood - Venous blood (substance) Performing Organization Address [facility]/ZIP Code Phon e Number [facility] [address] [place] [address] SERVICES (ABNORMAL) HEPATITIS A TOTAL ANTIBODY W REFLEX (04/27/2021 5:30 EST) Pathologist Sig nature Hepatitis A Positive (A) Negative [facility] Antibody, Total LABORATORY SERVICES Specimen Blood - Venous blood (substance) Narrative [facility] LABORATORY SERVICES - 04/27/2021 10:24 EST The result of this assay can be falsely elevated (Positive) due to the consumption of Biotin. Performing Organization Address [facility] Phon e Number [facility] [address] [place] [address] SERVICES HIV 1/2 ANTIGEN AND ANTIBODY, 4TH GENERATION (04/27/2021 5:30 EST) HIV 1 and 2 NegativeComment: If Negative [facility] Antibody/p24 acute HIV-1 LABORATORY Antigen, 4th infection is SERVICES Generation suspected in a high risk patient, submit plasma specimen for HIV-1 RNA quantitation test. Specimen Blood - Venous blood (substance) Narrative [facility] LABORATORY SERVICES - 04/27/2021 9:46 EST Fourth Generation assay performed on the Siemens Centaur XPT. Performing Organization Address City/[facility]/ZIP Code Phon e Number [facility] [address] [place] [address] SERVICES COVID-19 TEST [facility] LAB PCR (04/26/2021 11:20 EST) Specimen Swab - Entire nasopharynx (body structur e) Performing Organization Address [facility] Phon e Number [facility] [address] [place] [address] SERVICES COVID-19 TESTING (04/26/2021 11:20 EST) COVID-19 rt-PCR Negative Negative [facility] MEDICAL Result Comment: [facility] This test has not been FDA [...] and epidemiological informatio n. Performed on the [employer] Fusion instrument Performing Lab [place] [facility] Lab [facility] LABORATORY SERVICES Specimen Swab - Entire nasopharynx (body structur e) Performing Organization Address [facility] Phon e Number [facility] [address] [place] [address] SERVICES (ABNORMAL) BASIC METABOLIC PANEL (BMP) (04/26/2021 6:19 EST) Pathologist Sig nature Sodium 139 136 - 145 mmol/L [facility] LABORAT[facility] SERVICES Potassium 4.0 3.5 - 5.0 mmol/L [facility] LABORATORY SERVICES Chloride 102 96 - 110 mmol/L [facility] LABORATORY SERVICES CO2 Total 32 22 - 32 mmol/L [facility] LABOR[facility] SERVICES Anion Gap 5 (L) 8 - 16 [facility] LABORATORY SERVICES Glucose 107 (H) 70 - 100 mg/dL [facility] LABORATORY SERVICES Calcium 8.6 8.5 - 10.5 mg/dL [facility] LABORATORY SERVICES BUN 16 10 - 26 mg/dL [facility] SERVICES Creatinine 0.67 0.52 - 1.04 mg/dL [facility] LABORATORY SERVICES eGFR 112 >60 mL/min/1.73m2 [facility] LABORATORY SERVICES Specimen Blood - Venous blood (substance) Performing Organization Address [facility] Phon e Number [facility] [address] [place] [address] SERVICES (ABNORMAL) COMPLETE BLOOD COUNT AND DIFFERENTIAL (04/26/2021 6:18 EST) WBC 7.22 4.00 - 12.40 [facility] LABORATORY SERVICES RBC 3.34 (L) 3.86 - 5.04 [facility]/critical access hospital LABORATORY SERVICES Hemoglobin 9.4 (L) 11.6 - 15.2 [facility] gm/dL LABORATORY SERVICES HCT 28.9 (L) 34.9 - 44.4 % [facility] LABORATORY SERVICES MCV 87 81 - 98 fl [facility] LABORATORY SERVICES MCH 28.1 26.7 - 33.3 pg [facility] LABORATORY SERVICES MCHC 32.5 32.1 - 35.9 [facility] gm/dL LABORATORY SERVICES RDW-CV 13.1 <14.7 % [facility] LABORATORY SERVICES RDW-SD 41.1 <50.4 fl [facility] LABORATORY SERVICES PLT 233 141 - 377 K/[facility] LABORATORY SERVICES MPV 10.8 9.5 - 12.7 fl [facility] LABORATORY SERVICES Neutrophils 71.4 % [facility] LABOR[facility]ORY SERVICES Lymphocytes 13.4 % [facility] LABOR[facility] SERVICES Monocytes 9.4 % [facility] LABORATORY SERVICES Eosinophils 3.3 % [facility] LABOR[facility] SERVICES Basophils 0.4 % [facility] LABORATORY SERVICES Immature Grans 2.1 % [facility] LABORATORY SERVICES Absolute Neutrophils 5.15 2.20 - 8.85 [facility] LABORATORY SERVICES Absolute Lymphocytes 0.97 (L) 1.09 - 3.30 [facility] LABORATORY SERVICES Absolute Monocytes 0.68 0.10 - 0.80 [facility] LABORATORY SERVICES Absolute Eosinophils 0.24 0.03 - 0.61 [facility] LABORATORY SERVICES Absolute Basophils 0.03 0.01 - 0.11 [facility] LABORATORY SERVICES Absolute Immature 0.15 (H) 0.00 - 0.06 [facility] LABORATORY SERVICES Type of Differential: Auto [facility] LABORATORY SERVICES Specimen Blood - Venous blood (substance) Performing Organization Address City/State/ZIP Code Phon e Number [facility] [address] [place] [address] SERVICES (ABNORMAL) COMPLETE BLOOD COUNT AND DIFFERENTIAL (04/25/2021 6:16 EST) WBC 8.07 4.00 - 12.40 [facility] LABORATORY SERVICES RBC 3.24 (L) 3.86 - 5.04 [facility] LABORATORY SERVICES Hemoglobin 9.3 (L) 11.6 - 15.2 [facility] gm/dL LABORATORY SERVICES HCT 28.6 (L) 34.9 - 44.4 % [facility] LABORATORY SERVICES MCV 88 81 - 98 fl [facility] LABORATORY SERVICES MCH 28.7 26.7 - 33.3 pg [facility] LABORATORY SERVICES MCHC 32.5 32.1 - 35.9 [facility] gm/dL LABORATORY SERVICES RDW-CV 13.1 <14.7 % [facility] LABORATORY SERVICES RDW-SD 42.5 <50.4 fl [facility] LABORATORY SERVICES PLT 201 141 - 377 [facility] MPV 10.5 9.5 - 12.7 fl [facility] LABORATORY SERVICES Neutrophils 73.8 % [facility] LABORATORY SERVICES Lymphocytes 13.3 % [facility] LABORATORY SERVICES Monocytes 9.0 % [facility] LABORATORY SERVICES Eosinophils 2.4 % [facility] LABORATORY SERVICES Basophils 0.4 % [facility] LABORATORY SERVICES Immature Grans 1.1 % [facility] LABORATORY SERVICES Absolute Neutrophils 5.96 2.20 - 8.85 [facility] LABORATORY SERVICES Absolute Lymphocytes 1.07 (L) 1.09 - 3.30 [facility] LABORATORY SERVICES Absolute Monocytes 0.73 0.10 - 0.80 [facility] LABORATORY SERVICES Absolute Eosinophils 0.19 0.03 - 0.61 [facility] LABORATORY SERVICES Absolute Basophils 0.03 0.01 - 0.11 [facility] LABORATORY SERVICES Absolute Immature 0.09 (H) 0.00 - 0.06 [facility] LABORATORY SERVICES Type of Differential: Auto [facility] LABORATORY SERVICES Specimen Blood - Blood sample taken from central line (situation) Performing Organization Address City/State/ZIP Code Phon e Number [facility] [address] [place] [address] SERVICES (ABNORMAL) BASIC METABOLIC PANEL (BMP) (04/25/2021 6:15 EST) Pathologist Sig nature Sodium 139 136 - 145 mmol/L [facility] LABORATORY SERVICES Potassium 3.9 3.5 - 5.0 mmol/L [facility] LABORATORY SERVICES Chloride 103 96 - 110 mmol/L [facility] LABORATORY SERVICES CO2 Total 30 22 - 32 mmol/L [facility] LABORAT[facility] SERVICES Anion Gap 6 (L) 8 - 16 [facility] LABORATORY SERVICES Glucose 103 (H) 70 - 100 mg/dL [facility] LABORATORY SERVICES Calcium 8.0 (L) 8.5 - 10.5 mg/dL [facility] LABORATORY SERVICES BUN 12 10 - 26 mg/dL [facility] LABOR[facility] SERVICES Creatinine 0.52 0.52 - 1.04 mg/dL [facility] LABORATORY SERVICES eGFR 122 >60 mL/min/1.73m2 [facility] LABORATORY SERVICES Specimen Blood - Venous blood (substance) Performing Organization Address City/State/ZIP Code Phon e Number [facility] [address] [place] [address] SERVICES (ABNORMAL) COMPLETE BLOOD COUNT AND DIFFERENTIAL (04/24/2021 6:14 EST) WBC 12.01 4.00 - 12.40 [facility] K/critical access hospital LABORATORY SERVICES RBC 3.30 (L) 3.86 - 5.04 [facility] M[facility]critical access hospital LABORATORY SERVICES Hemoglobin 9.3 (L) 11.6 - 15.2 [facility] gm/dL LABORATORY SERVICES HCT 28.7 (L) 34.9 - 44.4 % [facility] LABORATORY SERVICES MCV 87 81 - 98 fl [facility] LABORATORY SERVICES MCH 28.2 26.7 - 33.3 pg [facility] LABORATORY SERVICES MCHC 32.4 32.1 - 35.9 [facility] gm/dL LABORATORY SERVICES RDW-CV 13.1 <14.7 % [facility] LABORATORY SERVICES RDW-SD 41.6 <50.4 fl [facility] LABORATORY SERVICES PLT 191 141 - 377 K/m [facility] LABORATORY SERVICES MPV 10.9 9.5 - 12.7 fl [facility] LABORATORY SERVICES Neutrophils 83.5 % [facility] LABORATORY SERVICES Lymphocytes 7.7 % [facility] LABORATORY SERVICES Monocytes 6.7 % [facility] LABORATORY SERVICES Eosinophils 1.1 % [facility] LABORATORY SERVICES Basophils 0.2 % [facility] LABORATORY SERVICES Immature Grans 0.8 % [facility] LABORATORY SERVICES Absolute Neutrophils 10.02 (H) 2.20 - 8.85 [facility] LABORATORY SERVICES Absolute Lymphocytes 0.93 (L) 1.09 - 3.30 [facility] LABORATORY SERVICES Absolute Monocytes 0.80 0.10 - 0.80 [facility] LABORATORY SERVICES Absolute Eosinophils 0.13 0.03 - 0.61 [facility] LABORATORY SERVICES Absolute Basophils 0.03 0.01 - 0.11 [facility] LABORATORY SERVICES Absolute Immature 0.10 (H) 0.00 - 0.06 [facility] LABORATORY SERVICES Type of Differential: Auto [facility] LABORATORY SERVICES Specimen Blood - Blood sample taken from central line (situation) Performing Organization Address [facility] Phon e Number [facility] [address] [place] [phone] SERVICES (ABNORMAL) BASIC METABOLIC PANEL (BMP) (04/24/2021 6:13 EST) Pathologist Sig nature Sodium 138 136 - 145 mmol/L [facility] LABORATORY SERVICES Potassium 3.3 (L) 3.5 - 5.0 mmol/L [facility] LABORATORY SERVICES Chloride 104 96 - 110 mmol/L [facility] LABORATORY SERVICES CO2 Total 28 22 - 32 mmol/L [facility] LABORAT[facility] SERVICES Anion Gap 6 (L) 8 - 16 [facility] LABORATORY SERVICES Glucose 142 (H) 70 - 100 mg/dL [facility] LABORATORY SERVICES Calcium 8.0 (L) 8.5 - 10.5 mg/dL [facility] LABORATORY SERVICES BUN 8 (L) 10 - 26 mg/dL [facility] LABORATORY SERVICES Creatinine 0.55 0.52 - 1.04 mg/dL [facility] LABORATORY SERVICES eGFR 119 >60 mL/min/1.73m2 [facility] LABORATORY SERVICES Specimen Blood - Venous blood (substance) Performing Organization Address [facility] Phon e Number [facility] [address] [place] [address] SERVICES (ABNORMAL) VANCOMYCIN TROUGH (04/24/2021 0:27 EST) Vancomycin Trough 4.8 (L) 10.0 - 20.0 [facility] ??g/mL LABORATORY SERVICES Draw Type Central Line [facility] Draw LABORATORY SERVICES Specimen Blood - Venous blood (substance) Performing Organization Address [facility] Phon e Number [facility] [address] [place] [address] SERVICES (ABNORMAL) ANAEROBE CULTURE/SMEAR(INC. AEROBES), OTHER (04/23/2021 19:53 EST) Organism ID Few Streptococcus [facility] dysgalactiae LABORATORY SERVICES (A)Comment: Penicillin and ampicillin are drugs of choice for treatment of beta hemolytic streptococcal infections. Smear Many Neutrophils [facility] Present (A) LABORATORY SERVICES Smear Few Gram Positive Cocci [facility] R (A) LABORATORY SERVICES Specimen Fluid - Soft tissue (navigational concep t) Performing Organization Address [facility] Phon e Number [facility] [address] [place] [address] SERVICES TEST, URINE (04/23/2021 18:31 EST) Test, NegativeComment: Negative [facility] Urine False negative LABORATORY results may occur in SERVICES women who are beyond 5-8 weeks gestation. Diagnosis of should be based on a correlation of test results with typical clinical signs and symptoms. Specimen Urine - Urine (substance) Performing Organization Address [facility] Phon e Number [facility] [address] [place] [address] SERVICES (ABNORMAL) COMPREHENSIVE METABOLIC PANEL (CMP) (04/23/2021 9:20 EST) Pathologist Sig nature Sodium 136 136 - 145 [facility] mmol/L LABORATORY SERVICES Potassium 3.0 (L) 3.5 - 5.0 [facility] mmol/L LABORATORY SERVICES Chloride 100 96 - 110 mmol/L [facility] LABORATORY SERVICES CO2 Total 25 22 - 32 mmol/L [facility] LABORATORY SERVICES Glucose 103 (H) 70 - 100 mg/dL [facility] LABORATORY SERVICES BUN 8 (L) 10 - 26 mg/dL [facility] LABORATORY SERVICES Creatinine 0.69 0.52 - 1.04 [facility] mg/dL LABORATORY SERVICES eGFR 111 >60 [facility] mL/min/1.73m2 LABORATORY SERVICES Total Protein 6.3 6.3 - 8.2 g/dL [facility] LABORATORY SERVICES Albumin 3.2 (L) 3.4 - 4.9 g/dL [facility] LABORATORY SERVICES Alkaline Phosphatase 114 38 - 126 U/L [facility] LABORATORY SERVICES AST 24 15 - 46 U/L [facility] LABORATORY SERVICES ALT 27 <35 U/L [facility] LABORATORY SERVICES Bilirubin, Total <0.5 <1.4 mg/dL [facility] LABORATORY SERVICES Calcium 8.4 (L) 8.5 - 10.5 [facility] mg/dL LABORATORY SERVICES Albumin/Globulin 1.0 1.0 - 2.5 [facility] Ratio LABORATORY SERVICES Anion Gap 11 8 - 16 [facility] LABORATORY SERVICES Specimen Blood - Venous blood (substance) Performing Organization Address City/[facility]/ZIP Code Phon e Number [facility] [address] [place] [address] SERVICES MAGNESIUM (04/23/2021 6:50 EST) Pathologist Sig nature Magnesium 1.8 1.7 - 2.8 mg/dL [facility] LABORA TORY SERVICES Specimen Blood - Venous blood (substance) Performing Organization Address [facility]/ZIP Code Phon e Number [facility] [address] [place] [address] SERVICES (ABNORMAL) BASIC METABOLIC PANEL (BMP) (04/23/2021 6:50 EST) Pathologist Sig nature Sodium 136 136 - 145 mmol/L [facility] LABORATORY SERVICES Potassium 2.9 (LL) 3.5 - 5.0 mmol/L [facility] LABORATORY SERVICES Chloride 102 96 - 110 mmol/L [facility] LABORATORY SERVICES CO2 Total 27 22 - 32 mmol/L [facility] LABORATORY SERVICES Anion Gap 7 (L) 8 - 16 [facility] LABORATORY SERVICES Glucose 119 (H) 70 - 100 mg/dL [facility] LABORATORY SERVICES Calcium 8.7 8.5 - 10.5 mg/dL [facility] LABORATORY SERVICES BUN 7 (L) 10 - 26 mg/dL [facility] LABORATORY SERVICES Creatinine 0.67 0.52 - 1.04 mg/dL [facility] LABORATORY SERVICES eGFR 112 >60 mL/min/1.73m2 [facility] LABORATORY SERVICES Specimen Blood - Venous blood (substance) Performing Organization Address City/[facility]/ZIP Code Phon e Number [facility] [address] [place] [address] SERVICES (ABNORMAL) COMPLETE BLOOD COUNT AND DIFFERENTIAL (04/23/2021 6:50 EST) WBC 16.72 (H) 4.00 - 12.40 [facility]critical access hospital LABORATORY SERVICES RBC 3.43 (L) 3.86 - 5.04 [facility] M/critical access hospital LABORATORY SERVICES Hemoglobin 9.9 (L) 11.6 - 15.2 [facility] gm/dL LABORATORY SERVICES HCT 30.1 (L) 34.9 - 44.4 % [facility] LABORATORY SERVICES MCV 88 81 - 98 fl [facility] LABORATORY SERVICES MCH 28.9 26.7 - 33.3 pg [facility] LABORATORY SERVICES MCHC 32.9 32.1 - 35.9 [facility] gm/dL LABORATORY SERVICES RDW-CV 13.2 <14.7 % [facility] LABORATORY SERVICES RDW-SD 42.3 <50.4 fl [facility] LABORATORY SERVICES PLT 171 141 - 377 K/[facility] LABORATORY SERVICES MPV 11.6 9.5 - 12.7 fl [facility] LABORATORY SERVICES Neutrophils 86.3 % [facility] LABORATORY SERVICES Lymphocytes 5.1 % [facility] LABORATORY SERVICES Monocytes 6.5 % [facility] LABORATORY SERVICES Eosinophils 0.5 % [facility] LABORATORY SERVICES Basophils 0.2 % [facility] LABORATORY SERVICES Immature Grans 1.4 % [facility] LABORATORY SERVICES Absolute Neutrophils 14.42 (H) 2.20 - 8.85 [facility] LABORATORY SERVICES Absolute Lymphocytes 0.86 (L) 1.09 - 3.30 [facility] LABORATORY SERVICES Absolute Monocytes 1.09 (H) 0.10 - 0.80 [facility] LABORATORY SERVICES Absolute Eosinophils 0.09 0.03 - 0.61 [facility] LABORATORY SERVICES Absolute Basophils 0.03 0.01 - 0.11 [facility] LABORATORY SERVICES Absolute Immature 0.23 (H) 0.00 - 0.06 [facility] hospital LABORATORY SERVICES Type of Differential: Auto [facility] LABORATORY SERVICES Specimen Blood - Blood sample taken from central line (situation) Performing Organization Address City/State/ZIP Code Phon e Number [facility] [address] [place] [address] SERVICES COVID-19 TEST [facility] LAB PCR (04/23/2021 2:53 EST) Specimen Swab - Entire nasopharynx (body structur e) Performing Organization Address [facility] Phon e Number [facility] [address] [place] [address] SERVICES COVID-19 TESTING (04/23/2021 2:53 EST) COVID-19 rt-PCR Negative Negative [facility] MEDICAL Result Comment: [facility] This test has not been FDA [...] and epidemiological informatio n. Performed on the [employer] GeneXpert Instrument Performing Lab [employer] [facility] Lab [facility] LABORATORY SERVICES Specimen Swab - Entire nasopharynx (body structur e) Performing Organization Address [facility] Phon e Number [facility] [address] [place] [address] SERVICES CK (04/23/2021 1:57 EST) Pathologist Sig nature CK 102 30 - 135 U/L [facility] LABORATOR Y SERVICES Specimen Blood - Venous blood (substance) Performing Organization Address [facility] Phon e Number [facility] [address] [place] [address] SERVICES XR WRIST RIGHT 3 OR MORE VIEWS (04/22/2021 18:58 EST) Anatomical Region Laterality Modality Upper Extremities Right Computed Radiography Specimen Impressions [facility] - 04/22/2021 19:38 EST Diffuse soft tissue swelling of the distal right forearm, wrist, and hand. I have personally reviewed the images an d the above interpretation and agree with the findings. Narrative [facility] - 04/22/2021 19:38 [...] Organization Address City/State/ZIP Code Phon e Number [facility] XR FOOT LEFT 3 OR MORE VIEWS (04/22/2021 18:57 EST) Anatomical Region Laterality Modality Lower Extremities Left Computed Radiography Specimen Impressions [facility] - 04/22/2021 19:51 EST 1. Questionable cortical [...] interpretation and agree with the findings. Narrative [facility] - 04/22/2021 19:51 EST XR FOOT LEFT [...] Organization Address City/State/ZIP Code Phon e Number [facility] XR FOREARM RIGHT 2 VIEWS (04/22/2021 18:56 EST) Anatomical Region Laterality Modality Upper Extremities Right Computed Radiography Specimen Impressions [facility] - 04/22/2021 19:38 EST Diffuse soft tissue swelling of the distal right forearm, wrist, and hand. I have personally reviewed the images an d the above interpretation and agree with the findings. Narrative [facility] - 04/22/2021 19:38 EST XR FOREARM [...] Organization Address City/State/ZIP Code Phon e Number [facility] XR HAND RIGHT 3 OR MORE VIEWS (04/22/2021 18:55 EST) Anatomical Region Laterality Modality Upper Extremities Right Computed Radiography Specimen Impressions [facility] - 04/22/2021 19:38 EST Diffuse soft tissue swelling of the distal right forearm, wrist, and hand. I have personally reviewed the images an d the above interpretation and agree with the findings. Narrative [facility] - 04/22/2021 19:38 EST XR FOREARM [...] Organization Address City/State/ZIP Code Phon e Number [facility] LACTIC ACID (04/22/2021 16:39 EST) Pathologist Sig nature Lactic Acid 0.6 <=2.0 mmol/L [facility] Specimen Blood - Venous blood (substance) Performing Organization Address City/State/ZIP Code Phon e Number [facility] [address] [place] [address] SERVICES (ABNORMAL) COMPLETE BLOOD COUNT AND DIFFERENTIAL (04/22/2021 16:39 EST) WBC 14.45 (H) 4.00 - 12.40 [facility] LABORATORY SERVICES RBC 3.56 (L) 3.86 - 5.04 [facility] LABORATORY SERVICES Hemoglobin 9.9 (L) 11.6 - 15.2 [facility] gm/dL LABORATORY SERVICES HCT 32.0 (L) 34.9 - 44.4 % [facility] MCV 90 81 - 98 fl [facility] MCH 27.8 26.7 - 33.3 pg [facility] MCHC 30.9 (L) 32.1 - 35.9 [facility] gm/dL LABORATORY SERVICES RDW-CV 13.0 <14.7 % [facility] RDW-SD 42.8 <50.4 fl [facility] PLT 135 (L) 141 - 377 K/cmm [facility] MPV 11.4 9.5 - 12.7 fl [facility] Neutrophils 86.0 % [facility] Lymphocytes 5.2 % [facility] Monocytes 7.4 % [facility] Eosinophils 0.5 % [facility] Basophils 0.1 % [facility] Immature Grans 0.8 % [facility] Absolute Neutrophils 12.43 (H) 2.20 - 8.85 [facility] LABORATORY SERVICES Absolute Lymphocytes 0.75 (L) 1.09 - 3.30 [facility] LABORATORY SERVICES Absolute Monocytes 1.07 (H) 0.10 - 0.80 [facility] LABORATORY SERVICES Absolute Eosinophils 0.07 0.03 - 0.61 [facility] LABORATORY SERVICES Absolute Basophils 0.02 0.01 - 0.11 [facility] LABORATORY SERVICES Absolute Immature 0.11 (H) 0.00 - 0.06 [facility] LABORATORY SERVICES Type of Differential: Auto [facility] Specimen Blood - Venous blood (substance) Performing Organization Address City/[facility]/ZIP Code Phon e Number [facility] [address] [place] [phone] SERVICES (ABNORMAL) BASIC METABOLIC PANEL (BMP) (04/22/2021 16:39 EST) Pathologist Sig nature Sodium 141 136 - 145 mmol/L [facility] Potassium 3.0 (L) 3.5 - 5.0 mmol/L [facility] Chloride 105 96 - 110 mmol/L [facility] CO2 Total 24 22 - 32 mmol/L [facility] Anion Gap 12 8 - 16 [facility] Glucose 89 70 - 100 mg/dL [facility] Calcium 8.7 8.5 - 10.5 mg/dL [facility] BUN 7 (L) 10 - 26 mg/dL [facility] Creatinine 0.65 0.52 - 1.04 mg/dL [facility] eGFR 113 >60 mL/min/1.73m2 [facility] Specimen Blood - Venous blood (substance) Performing Organization Address City/[facility]/ZIP Code Phon e Number [facility] [address] [place] [phone] [address] OUTSIDE IMAGES MSK (04/22/2021 13:22 [...] pecified whether acute organ dysfunction present ([facility]) ([facility]) Group C streptococcal infection Streptococcus infection in conditions cl assified elsewhere and of unspecified site, group C Abscess of arm, right Cellulitis and abscess of upper arm and forearm Skin ulcer of left great toe, unspecifie d ulcer stage ([facility]) ([facility]) Leukopenia, unspecified type Open wound of left great toe, sequela Opioid use disorder, mild, abuse ([facility]) ([facility]) 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 ([facility]) Retained metal fragment foreign body Right arm [...] WITH BREAKFAST & DINNER, First dose on 05/02/21 at 1730, Until Discontinued, Routine Given 05/03/2021 [...] Tablets sodium chloride 0.9 % irrigation Given 04/30/2021 9:32 EST 1,000 mL PRN, Starting on 04/30/21 at 0932, Until 04/30/21 at 1013, Routine, Intraprocedure tiZANidine (ZANAFLEX) tablet 8 mg Given 05/04/2021 13:58 EST 8 mg 8 mg, oral, EVERY 8 HOURS PRN, Starting on 05/01/21 at 1037, Until 05/04/21 at 1943, Muscle Spasms, Routine Given 05/04/2021 [...] 2002 (Given - Provider: Cindy James LPN) 08 (Given - Provider: Karly Castorena RN)08 (JUN Hold - Provider: Automatic Transfer Provider Hn - Reason: Patient off unit)113 (JUN Unhold - Provider: Automatic Transfer Provider Hn)2002 (Given - Provider: Cindy James LPN) 09 (Given - Provider: Karly Castorena RN) 1,000 [...] 500 mg 161 (Given - Provider: Karly Castorena RN) 500 mg, oral, EVERY 8 HOURS, 21 doses, F irst dose on Sun05/04/21 at 1600, Last dose on Sun05/11/21 at 0800, Routine buprenorphine-naloxone (SUBOXONE) 2-0.5 mg sublingual film 3 Film 09 (Given - Provider: Karly Castorena RN) 08 (Given - Provider: Karly Castorena RN)08 (JUN Hold - Provider: Automatic Transfer Provider Hn - Reason: Patient off unit)113 (JUN Unhold - Provider: Automatic Transfer Provider Hn) 09 (Given - Provider: Karly Castorena RN) 3 Film, sublingual, DAILY, First dose on Sun04/23/21 at 0900, Until Discontinued, Routine ceFAZolin (ANCEF) syringe 2 g 0700 (Due) 08 (JUN Hold - Provider: Automatic Transfer Provider Hn - Reason: Patient off unit)113 (JUN Unhold - Provider: Automatic Transfer Provider Hn) 2 g, intravenous, Administer over 10 Min utes, LOOM STARTER TO O.R., 1 dose, First dose on Sun05/03/21 at 0700, Routine cefTRIAXone (ROCEPHIN) 2,000 mg in sodiu m chloride (NS MBP) 50 mL IVPB (CANCELED) 2320 (Given - Provider: Cindy James LPN) 0828 (OK Hold - Provider: Automatic Transfer Provider Hn [...] 0910 (Given - Provider: Karly Castorena RN) 600 mg, oral, DAILY WITH BREAKFAST, Firs t dose on 04/24/21 at 0800, Until Discontinued, Routine lidocaine 20 mg/mL (2 %) injection 10 mL 0900 (Canceled Entry - Provider: Batch Job User Admin - Comment: Automatically canceled at discontinue of medication order) 10 mL, other, NOW X1, 1 dose, On Sun05/04/21 at 0900, Routine polyethylene glycol 3350 (MIRALAX) packet 17 g 922 (G iven - Provider: Karly Castorena RN) 822 (Not Given - Provider: Karly sy RN - Reason: NPO)827 (JUN Hold - Provider: Automatic Transfer Provider Hn - Reason: Patient off unit)1138 (JUN Unhold - Provider: Automatic Transfer Provider Hn) 910 (Given - Provider: Karly Castorena RN) 17 [...] 05/02/2021 05/03/2021 05/04/2021 HYDROmorphone 1 mg/ml (DILAUDID) HANDLING TECH syringe, 30 ml (C ANCELED) 932 (New Bag - Provider: Karly Castorena RN)2156 (Rate Documented - Provider: Cindy James LPN) 2037 (New Bag - Provider: Monik Bryant RN) intravenous, CONTINUOUS, Starting on Sun04/27/21 at 1145, Until Sun05/04/21 at 0815, Routine, HANDLING TECH Dose (mg): 0.4, Lockout Interval (minutes): 10, [...] mg 0938 (Given - Provider: Karly Castorena RN)173 (Given - Provider: Karly Castorena RN) 0815 [...] Provider: Cindy James LPN)0910 (Given - Provider: aKrly Castorena RN)161 (Given - Provider: Karly Castorena [...] 22 ceFAZolin (ANCEF) syringe 2 g 2 05/02/2021 [...] (ZOFRAN) injection 4 mg 2 022 04/23/2021 alteplase (CATHFLO ACTIVASE) injection 2 1 [...] syringe 2 mg HYDROmorphone 1 mg/ml (DILAUDID) HANDLING TECH 2 04/27/2021 04/23/2021 syringe, 30 ml ibuprofen (MOTRIN) tablet 400 mg 3 04/27/2021 04/23/2021 midazolam (PF) (VERSED) injection 2 mg 1 sodium chloride 0.9 % irrigation 2 04/27/2021 04/23/2021 acetaminophen (TYLENOL) tablet 500 mg 1 04/25/2021 [...] 04/29/202103/31 documented in this encounter Care Teams [employer] Relationship Specialty Start Date End Date Ratna Olivas MD PCP - General 03/05/[address] [place] [phone] documented as of this encounter
--- OUTSIDE RECORDS SUMMARY | 2022-02-03 16:01 | XMS_ITS | Encounter Summary ---
:1980 Author Organization [facility] Address [address] [place] [address] Care Team Providers Name Role Phone Ratna Olivas MD Primary Care Provider Reason for Visit Auth/Cert Specialty Diagnoses / Procedures Referred By Contact Refer red To Contact Diagnoses Right arm cellulitis Sepsis Referral ID Status Reason Start Date Expiration Date Visits Requ ested Visits Authorized [id number] 1 1 Encounter Details Date Type Department Care Team Description 04/29/2021 Anesthesia Event [facility] Juliano Cano 111 [facility] e [address] [place] [address] [phone] (Wo rk) Anesthesia Record Procedure Summary Procedure [...] by Evelyn Lamb, Left; Y; 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
--- OUTSIDE RECORDS SUMMARY | 2022-02-03 16:01 | XMS_ITS | Encounter Summary ---
:1980 Author Organization [facility] Address [address] [place] [address] Care Team Providers Name Role Phone Ratna Olivas MD Primary Care Provider Reason for Visit Auth/Cert Specialty Diagnoses / Procedures Referred By Contact Refer red To Contact Diagnoses Right arm cellulitis Sepsis Referral ID Status Reason Start Date Expiration Date Visits Requ ested Visits Authorized [id number] 1 1 Encounter Details Date Type Department Care Team Description 04/27/2021 Anesthesia Event 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
--- OUTSIDE RECORDS SUMMARY | 2022-02-03 16:01 | XMS_ITS | Encounter Summary ---
:1980 Author Organization [facility] Address [address] [place] [address] Care Team Providers Name Role Phone Ratna Olivas MD Primary Care Provider Reason for Visit Auth/Cert Specialty Diagnoses / Procedures Referred By Contact Refer red To Contact Diagnoses Right arm cellulitis Sepsis Referral ID Status Reason Start Date Expiration Date Visits Requ ested Visits Authorized [id number] 1 1 Encounter Details Date Type Department Care Team Description 04/30/2021 Anesthesia Event [facility] OR Chaparro Owens MD [address] [phone] [place] [address] Nivia Paige AA 111 [facility], Level [address] [place] [address] [place], [place] [phone] Anesthesia Record Procedure Summary Procedure Name Responsible Anesthesia Start Anesthesia Stop Anesthesiologist Time Time right hand irrigation Chaparro Owens MD 04/30/21 0837 2 1033 and debridement (Right Hand) Events Date Time Event Comment 04/30/2021 0837 An Start The patient was re-evaluated immediately before moderate or deep sedation use, before anesthesia induction, or be fore the anesthesia procedure. 0837 An Start Data 0840 An Induction The patient was reevaluated immediately before moderate or deep sedation use and before anesthesia induction. 0845 An Intubation 0856 Anesthesia Ready 1002 An Extubation 1005 an stop data 1032 Handoff to RN I completed my h andoff to the receiving nurse during which we: 1. Suzie ntified the patient 2. Identified the responsible provider 3. Reviewed the pertinent medical history 4. Discussed the surgical course 5. Reviewed intra-o p anesthesia management and issues during anesthesi a 6. Set expectations for post-procedure p eriod 7. Allowed opportunity for questions and ac knowledgement of understanding. 1033 An Stop Name Total dexaMETHasone (DECADRON) injection 4 mg/mL (for IV dos es up to 10mg) 12 mg fentanyl citrate (PF) injection 200 mcg HYDROmorphone vial 2 mg/mL 1 mg ketAMINE 5 mL prefilled syringe 30 mg propOFol (DIPRIVAN) injection 130 mg rocuronium 10 mg/mL vial 30 mg cefTRIAXone (ROCEPHIN) 2,000 mg in sodium chloride (NS MBP) 50 mL IVPB 0 mg ceFAZolin injection 2,000 mg ketAMINE (KETALAR) 250 mg in NaCl 0.9% 25 mL syringe 2 9.5 mg dexmedetomidine injection - vial 24 mcg diphenhydrAMINE injection 25 mg lactated ringers (LR) infusion 500 mL Agents Name Insp Sevoflurane Exp Sevoflurane O2 N2O Air Blood No blood administrations on file. Lines, Drains, and Airways Type Details Placement Removal Wound 04/23/21; 193; 04/23/21 193 by Incision; Right, Jan Weston, JARRED Anterior; Wrist; I&D right wrist carpal tunnel release (most recent I&D on 04/30) Open Drain 04/27/21; 0944; In OR by 04/27/21 0944 by MD; Right, Anterior; Sal Tubbs, Other (Comment) (wrist); RN (3/8 inch falguni drain) Full Thickness 06/28/17; 1045; 06/28/17 1045 by 04/30/21 0912 b y Surgical; Right; Groin; Ion Darling, Aislinn Myles, JARRED Drained Abcess Site; 04/30/21; 0912 Full Thickness 06/29/17; 1024; 06/29/17 1024 by 04/30/21 0913 b y Surgical; Right; Yessi Vale, Zen Myles, RN Abdomen; Rigth Obturator Bypass surgical site; 04/30/21; 0913 Full Thickness 06/29/17; 1026; Right, 06/29/17 1026 by 04/30/21 0913 by Upper, Inner; Leg; Right Yessi Vale RN McK ean, Tammy, RN femoral popliteal bypass surgical site; 04/30/21; 0913 Full Thickness 06/29/17; 1108; 06/29/17 1108 by 04/30/21 0912 b y Surgical; Right; Groin; Yessi Vale RN McKe an, Tammy, RN righ groin debridement surgical site; 04/30/21; 0912 Wound 04/03/19; 1329; Right, 04/03/19 1329 by 04/30/21 0912 by Lateral; Leg (BKA); Full Delon Bautista NP McKean, Tammy, RN thickness; 04/30/21; 09 Wound 04/03/19; 1329; Left, 04/03/19 1329 by 04/30/21 0913 by Dorsal; Toe (Comment Delon Bautista NP McKe an, Tammy, RN which one) (left great toe); Full thickness; 04/30/21; 0913 Wound 04/03/19; 1335; Right, 04/03/19 1335 by 04/30/21 0913 by Medial; Leg (BKA); Full Delon Bautista NP M cKean, Tammy, RN thickness; 04/30/21; 0913 CVC Triple Lumen 04/22/21; 0500 (per pt); 04/22/21 0500 by 05/04 1654 by Right; Internal jugular; Eboni Steiner RN Hum phries, Tracie, Patient arrived with FAYE RN (done at [facility]); 05/04/21; 1654; Per order; No complications, Dressing applied, Vaseline gauze or other occlusive; (intact) Non-Surgical Airway 04/30/21; 921 (created 04/30/21921 by 05/21 1005 by via Con Maguire, Con Ogden, HEAVY MACHINERY OPERATOR documentation); 04/30/21; 1005 documented in this encounter Social History Tobacco [...] encounter OR Notes Anesthesia Preprocedure Evaluation - Con Carrillo CRNA - 04/30/2021 1034 EST Anesthesia Preprocedure Evaluation Patient Medical History, including Anesthesia History reviewed. [...] exploratory surgery ??? Skin abscess Relevant Problems No relevant active problems Physical Exam Airway Mallampati: II TM distance: >3 FB Neck ROM: full Cardiovascular Dental Comments: Poor dentition Pulmonary Breath sounds clear to auscultation Abdominal Anesthesia Plan ASA 3 Anesthesia Type - general, to include intravenous induction. Anesthesia plan and risks discussed. Informed consent [...] in this note PAT Note Notes from 03/31/21 through 04/30/21 No notes of this type exist for this encounter. nesthesia Postprocedure Evaluation - Con Carrillo CRNA - 04/30/2021 1033 EST Patient: Lindsay Odonnell Vital signs were reviewed with the recovery nurse. Complete vitals history is available in the Epic flowsheets. Vitals Value Taken Time BP 04/30/21 1033 Temp 04/30/21 1033 Resp 04/30/21 1033 Pulse From Oximetry 04/30/21 1033 SpO2 100 04/30/21 1033 Last Pain Score - Numeric Pain Level (Scale 1-10): 10 Type of Anesthesia - general Anesthesia Post Evaluation Level of consciousness: awake Temperature status: normothermia Respiratory status: airway patent, stable and nasal cannula Cardiovascular status: acceptable, appropriate for condition and stable Hydration status: adequate Nausea/Vomiting: none Pain management: adequate Post-Op Assessment: patient tolerated procedure well with no complications Disposition: inpatient Anesthesia Complications: No apparent anesthesia complications nesthesia Procedure Notes - Con Carrillo CRNA - 04/30/2021 0919 ESTAssociated Order(s): Airway Airway Date/Time: 04/30/2021 8:45 Urgency: elective Airway not difficult General Information and Staff Patient location during procedure: OR Resident/HEAVY MACHINERY OPERATOR: Con Carrillo CRNA Performed: resident/MIN/AA Indications and Patient Condition Indications for airway management: anesthesia Sedation level: GA Preoxygenated: yes Patient position: sniffing Ventilation assessment: 1 - Easy Final Airway Details Final airway type: endotracheal airway Successful airway: ETT Cuffed: yes Successful intubation technique: video laryngoscopy [place] Facilitating devices/methods: intubating stylet Endotracheal tube insertion site: oral Blade: Pete Blade size: #3 ETT size (mm): 7.0 Cormack-Lehane Classification: grade I - full view of glottis Placement verified by: chest auscultation, capnometry and palpation of cuff Cuff volume (mL): 7 Measured from: lips ETT to lips (cm): 21 Number of attempts at approach: 1 Additional Comments One attempt with BURP documented in this encounter Plan of Treatment Not on filedocumented as of this encounter Procedures Procedure Name Priority Date/Time Associated Comments Diagnosis ANESTHESIA Routine 04/30/2021 8:45 EST Results for this INTUBATION procedure are i n the results section. documented in this encounter Results MD AN ELECTIVE ENDOTRACHEAL AIRWAY (04/30/2021 8:45 EST) Narrative Con Carrillo CRNA - 04/30/2021 8:45 ES T Con Carrillo CRNA ? 04/30/2021 ??9:22 Airway Date/Time: 04/30/2021 8:45 Urgency: elective Airway not difficult General Information and Staff Patient location during procedure: OR Resident/HEAVY MACHINERY OPERATOR: Con Carrillo CRNA Performed: resident/MIN/NAOMIE Indications and Patient Condition Indications for airway management: anest hesia Sedation level: GA Preoxygenated: yes Patient position: sniffing Ventilation assessment: 1 - Easy Final Airway Details Final airway type: endotracheal airway Successful airway: ETT Cuffed: yes Successful intubation technique: video l aryngoscopy [place] Facilitating devices/methods: intubating stylet Endotracheal tube insertion site: oral Blade: Pete Blade size: #3 ETT size (mm): 7.0 Cormack-Lehane Classification: grade I - full view of glottis Placement verified by: chest auscultatio n, capnometry and palpation of cuff Cuff volume (mL): 7 Measured from: lips ETT to lips (cm): 21 Number of attempts at approach: 1 Additional Comments One attempt with BURP documented in this encounter Visit Diagnoses Not on filedocumented in this encounter Administered Medications Inactive Administered Medications - up to 3 most recent administrations Medication Order MAR Action Action Date Dose Rate Site ceFAZolin (ANCEF) injection Given 04/30/2021 9:11 EST 2,000 mg intravenous, PRN, Starting on 04/30/21 at 0911, Until 04/30/21 at 1033, Routine, Anesthesia Intraprocedure dexAMETHasone (DECADRON) injection Given 04/30/2021 10:23 EST 4 mg intravenous, PRN, Starting on 04/30/21 at 1019, Until 04/30/21 at 1033, Routine, Anesthesia Intraprocedure Given 04/30/2021 10:22 EST 4 mg Given 04/30/2021 10:19 EST 4 mg dexmedeTOMIDine (PRECEDEX) injection Given 04/30/2021 8:51 EST 4 mcg intravenous, PRN, Starting on 04/30/21 at 0840, Until 04/30/21 at 1033, Routine, Anesthesia Intraprocedure Given 04/30/2021 8:49 EST 4 mcg Given 04/30/2021 8:45 EST 4 mcg diphenhydrAMINE (BENADRYL) injection Given 04/30/2021 9:20 EST 25 mg intravenous, PRN, Starting on 04/30/21 at 0920, Until 04/30/21 at 1033, Routine, Anesthesia Intraprocedure fentaNYL citrate (PF) injection Given 04/30/2021 10:23 EST 100 mcg intravenous, PRN, Starting on 04/30/21 at 0847, Until 04/30/21 at 1033, Routine, Anesthesia Intraprocedure Given 04/30/2021 8:47 EST 100 mcg HYDROmorphone (DILAUDUD) 2 mg/mL injecti on Given 04/30/2021 8:54 EST 1 mg intravenous, PRN, Starting on 04/30/21 at 0854, Until 04/30/21 at 1033, Routine, Anesthesia Intraprocedure ketAMINE (KETALAR) 250 mg in Rate Documented 05/01/2021 14:08 EST 5 mg/hr 0.5 mL/hr NaCl 0.9% 25 mL syringe 5 mg/hr (0.5 mL/hr), intravenous, CONTINUOUS, Starting on 04/23/21 at 2030, Until 05/01/21 at 1423, STAT Rate Documented 05/01/2021 13:16 EST 5 mg/hr 0.5 mL/hr Rate Documented 05/01/2021 11:00 EST 5 mg/hr 0.5 mL/hr ketAMINE in NaCl, iso-osmotic (KETALAR) 50 mg/5 Given 2021 8:47 EST 30 mg mL (10 mg/mL) IV injection intravenous, PRN, Starting on 04/30/21 at 0847, Until 04/30/21 at 1033, Routine, Anesthesia Intraprocedure lactated ringers (LR) infusion New Bag 04/30/2021 8:43 EST at 75 mL/hr, intravenous, CONTINUOUS, Starting on 04/25/21 at 0000, Until 04/30/21 at 1239, Routine Continued by Anesthesia 04/30/2021 8:37 EST 75 mL/hr Restarted 04/27/2021 9:01 EST propOFol (DIPRIVAN) injection Given 04/30/2021 8:47 EST 130 mg intravenous, PRN, Starting on 04/30/21 at 0847, Until 04/30/21 at 1033, Routine, Anesthesia Intraprocedure rocuronium (ZEMURON) injection Given 04/30/2021 8:47 EST 30 mg intravenous, PRN, Starting on 04/30/21 at 0847, Until 04/30/21 at 1033, Routine, Anesthesia Intraprocedure documented in this encounter Care Teams Emotionally Impaired Teacher Relationship Specialty Start Date End Date Ratna Olivas MD PCP - General 03/05/19 [facility] [address] [phone] documented as of this encounter
--- OUTSIDE RECORDS SUMMARY | 2022-02-03 16:02 | XMS_ITS | Encounter Summary ---
:1980 Author Organization [facility] Address [address] [place] [address] Care Team Providers Name Role Phone Ratna Olivas MD Primary Care Provider Reason for Visit Reason Onset Date Comments Appointment Related 06/08/2020 post op appt r/s Encounter Details Date Type Department Care Team Description 06/08/2020 Telephone [facility] - Karie Dinero Appoint ment Related [facility] Orthopedics & MD Tiffany (post op appt r/s) Sport Medicine [address] [place] [address] [address] [place], [place] [address] [phone] Social History Tobacco Use Types Packs/Day Years [...] last month, have you been in contact with No / Unsure 05/25/2020 10:06 EST someone who was confirmed or suspected to have Coronavirus / COVID-19? documented as of this encounter Functional Status Functional Status Response Date of Assessment Are you deaf or do you have serious difficulty hearing? No 06/28/2017 Are you blind or do you have serious difficulty seeing, No 06/28/2017 even when wearing glasses? Do you have serious difficulty walking or climbing No 06/28/2017 stairs? (5 years old or older) Do you have difficulty dressing or bathing? (5 years old No 06/28/2017 or older) Because of a physical, mental, or emotional condition, No 03/24/2019 does this person have difficulty doing errands alone such as visiting a doctor's office or shopping? Cognitive Status Response Date of Assessment Because of a physical, mental, or emotional condition, No 03/24/2019 does this person have serious difficulty concentrating, remembering, or making decisions? documented as of this encounter Miscellaneous Notes Telephone Encounter - Leigh An - 06/11/2020 1439 EST Unable to contact elephone Encounter - Leigh An - 06/11/2020 1349 EST Called x3. No answer, mailbox full elephone Encounter - Leigh An - 06/10/2020 0918 EST Called again. Same result as previous elephone Encounter - Leigh An - 06/08/2020 1430 EST I've attempted to reach the patient as directed and her mailbox is full and only has the one phone number listed elephone Encounter - Yany Singleton - 06/08/[address] Dinero please schedule in the next available time the patient is able to make it to our office. elephone Encounter - Maggie Pruitt - 06/08/2020 0953 EST Pt had to cancel her post op for today due to her car not starting. I offered her the opening we hadfor 06/15, but its too early in the AM. I offered her the 06/05 with Carlo that was in the afternoon, but pt couldn't do that either. She is driving from [facility] and needs to have an appt between 9:00 and noon. I also wasn't surehow long patient could go for this post op as she states its for a stitches removal. Please advise. Thanks! documented in this encounter Plan of Treatment Not on filedocumented as of this encounter Visit Diagnoses Not on filedocumented in this encounter Care Teams Irrigationist Relationship Specialty Start Date End Date Ratna Olivas MD PCP - General 03/05/19 [facility] [address] [phone] documented as of this encounter
--- OUTSIDE RECORDS SUMMARY | 2022-02-03 16:02 | XMS_ITS | Encounter Summary ---
:1980 Author Organization [facility] Address [address] [place] [address] Care Team Providers Name Role Phone Ratna Olivas MD Primary Care Provider Encounter Details Date Type Department Care Team Description 12/23/2020 Lab Requisition [facility] Outr Resulting Lab, Pathology & Laboratory Provider [facility] [address] [place], [place] [address] Social History Tobacco Use Types Packs/Day Years [...] making decisions? documented as of this encounter Plan of Treatment Not on filedocumented as of this encounter Procedures Procedure Name Priority Date/Time Associated Diagnosis Comme nts HSV (HERPES SIMPLEX Routine 12/23/2020 13:20 Resu lts for this VIRUS) MOLECULAR EDT procedure a re in DETECTION, PCR the results section. documented in this encounter Results (ABNORMAL) HERPES SIMPLEX VIRUS MOLECULAR DETECTION, PCR (12/23/2020 13:20 EDT) Pathologist Sig nature Herpes Simplex Virus Negative Negative [facility] Molecular Detection [facility] 1, PCR Herpes Simplex Virus Positive (A) Negative [facility] Molecular [facility] 2, PCR Specimen Swab - Entire vulva (body structure) Performing Organization Address City/State/ZIP Code Phon e Number [facility] [address] [place] [address] SERVICES documented in this encounter Visit Diagnoses Not on filedocumented in this encounter Care Teams First Assist Relationship Specialty Start Date End Date Ratna Olivas MD PCP - General 03/05/[address] [place] [phone] documented as of this encounter
--- OUTSIDE RECORDS SUMMARY | 2022-02-03 16:02 | XMS_ITS | Encounter Summary ---
:1980 Author Organization [facility] Address [address] [place] [address] Care Team Providers Name Role Phone Ratna Olivas MD Primary Care Provider Reason for Visit (Routine/Next Available) - Receiving Office to Obtain Authorization Specialty Diagnoses / Procedures Referred By Contact Refer red To Contact Procedures Unknown, Provider, XR OUTSIDE IMAGES CHEST Phone: Referral ID Status Reason Start Expiration Visits Visits Date Date Requested Authorized [id number] Receiving Office 1 to Obtain 1 Authorization Encounter Details Date Type Department Care Team Description 04/23/2021 Hospital Encounter [facility] Center Secondary Reads [place] Social [...] mouth every 8 hours for 13 days. apixaban (ELIQUIS) 5 mg Take 1 Tab by mouth 2 0 0 10/24/2018 04/24/2021 tablet times daily. cephALEXin (KEFLEX) 500 Take 500 mg by mouth 0 05/04/2021 mg capsule 4 times daily. sulfamethoxazole-trimet Take 1 Tab by mouth 0 05/04/2021 hoprim every 12 hours. (BACTRIM/CO-TRIMOXAZOLE DS) 800-160 mg per tablet documented as of this encounter Discharge Disposition Disposition Code Departure Means Destination Home or Self Care documented in this encounter Plan of Treatment Not on filedocumented as of this encounter Procedures Procedure Name Priority Date/Time Associated Diagnosis Comme nts XR OUTSIDE IMAGES Routine 04/22/2021 12:43 Result s for this CHEST EST procedure are i n the results section. documented in this encounter Results XR OUTSIDE IMAGES CHEST (04/22/2021 12:43 EST) Specimen Narrative 04/22/2021 12:43 EST This is a non-reportable exam. documented in this encounter Visit Diagnoses Not on filedocumented in this encounter Care Teams Edger Liner Relationship Specialty Start Date End Date Ratna Olivas MD PCP - General 03/05/[address] [place] [phone] documented as of this encounter
--- OUTSIDE RECORDS SUMMARY | 2022-02-03 16:02 | XMS_ITS | Encounter Summary ---
:[address] [facility] Address [address] [place] [address] Care Team Providers Name Role Phone Ratna Olivas MD Primary Care Provider Reason for Visit (Routine/Next Available) - Receiving Office to Obtain Authorization Specialty Diagnoses / Procedures Referred By Contact Refer red To Contact Procedures Unknown, Provider, XR OUTSIDE IMAGES CHEST Phone: Referral ID Status Reason Start Expiration Visits Visits Date Date Requested Authorized [id number] Receiving Office 1 to Obtain 1 Authorization Encounter Details Date Type Department Care Team Description 04/23/2021 Hospital Encounter [facility] Center Secondary Reads [place] Social History [...] Comme nts XR OUTSIDE IMAGES Routine 04/22/2021 12:45 Result s for this CHEST EST procedure are i n the results section. documented in this encounter Results XR OUTSIDE IMAGES CHEST (04/22/2021 12:45 EST) Specimen Narrative 04/22/2021 12:45 EST This is a non-reportable exam. documented in this encounter Visit Diagnoses Not on filedocumented in this encounter Care Teams Stained Glass Window Designer Relationship Specialty Start Date End Date Ratna Olivas MD PCP - General 03/05/[address] [place] [phone] documented as of this encounter
--- OUTSIDE RECORDS SUMMARY | 2022-02-03 16:02 | XMS_ITS | Encounter Summary ---
:1980 Author Organization [facility] Address [address] [place] [address] Care Team Providers Name Role Phone Ratna Olivas MD Primary Care Provider Reason for Visit Auth/Cert Specialty Diagnoses / Procedures Referred By Contact Refer red To Contact Diagnoses Right arm cellulitis Sepsis Referral ID Status Reason Start Date Expiration Date Visits Requ ested Visits Authorized [id number] 1 1 Encounter Details Date Type Department Care Team Description 04/25/2021 Anesthesia Event [facility] Arnold Arredondo MD [address] [facility] e [address] [place] [phone] (Wo rk) Anesthesia Record Procedure Summary Procedure [...] by Evelyn Lamb, Left; Y; Full thickness lyric writer 05/03/21; 1031; Incision; 05/03/21 1031 by Sal [...] on filedocumented in this encounter Care Teams Volunteer Specialist Relationship Specialty Start Date End Date Ratna Olivas MD PCP - General 03/05/[address] [place] [phone] documented as of this encounter
--- OUTSIDE RECORDS SUMMARY | 2022-02-03 16:02 | XMS_ITS | Encounter Summary ---
:1980 Author Organization [facility] Address [address] [place] [address] Care Team Providers Name Role Phone Ratna Olivas MD Primary Care Provider Reason for Visit Auth/Cert Specialty Diagnoses / Procedures Referred By Contact Refer red To Contact Diagnoses Right arm cellulitis Sepsis Referral ID Status Reason Start Date Expiration Date Visits Requ ested Visits Authorized [id number] 1 1 Encounter Details Date Type Department Care Team Description 04/24/2021 Anesthesia Event [facility] ANEST[facility] Colleen Michelle MD 111 [facility] e [address] [address] [phone] (Wo rk) Anesthesia Record Procedure Summary Procedure [...] by Evelyn Lamb, Left; Y; Full thickness motor runner 01/04/22; 1031; Incision; 05/03/21 1031 by Sal [...] on filedocumented in this encounter Care Teams Laryngologist Relationship Specialty Start Date End Date Ratna Olivas MD PCP - General 03/05/[address] [place] [phone] documented as of this encounter
--- OUTSIDE RECORDS SUMMARY | 2022-02-03 16:02 | XMS_ITS | Encounter Summary ---
:1980 Author Organization [facility] Address [address] [place] [address] Care Team Providers Name Role Phone Ratna Olivas MD Primary Care Provider Encounter Details Date Type Department Care Team Description 04/22/2021 Travel Social History Tobacco Use Types Packs/Day Years [...] do you have serious difficulty hearing? No 04/22/2021 Are you blind or do you have [...] on filedocumented in this encounter Care Teams Buckle Coverer Relationship Specialty Start Date End Date Ratna Olivas MD PCP - General 03/05/[address] [place] [phone] documented as of this encounter
--- OUTSIDE RECORDS SUMMARY | 2022-02-03 16:02 | XMS_ITS | Encounter Summary ---
:1980 Author Organization [facility] Address [address] [place] [address] Care Team Providers Name Role Phone Ratna Olivas MD Primary Care Provider Encounter Details Date Type Department Care Team Description 07/05/2020 Lab Requisition [facility] Outr Resulting Lab, Pathology & Laboratory Provider [facility] [address] [place], [place] [phone] Social History Tobacco Use Types Packs/Day Years [...] Priority Date/Time Associated Comments Diagnosis CHLAMYDIA/N. Routine 07/05/2020 10:15 Results for this GONORRHOEAE AMPLIFIED EST proced ure are in RNA the results section. documented in this encounter Results CHLAMYDIA/N. GONORRHOEAE AMPLIFIED RNA (07/05/2020 10:15 EST) Pathologist Sig nature Gonococcus Result Negative Negative [facility] Chlamydia Result Negative Negative [facility] Specimen Swab - Entire endocervix (body structure ) Performing Organization Address City/State/ZIP Code Phon e Number [facility] [address] [place] [address] SERVICES documented in this encounter Visit Diagnoses Not on filedocumented in this encounter Care Teams Warehouse Delivery Manager Relationship Specialty Start Date End Date Ratna Olivas MD PCP - General 03/05/[address] [place] [phone] documented as of this encounter
--- OUTSIDE RECORDS SUMMARY | 2022-02-03 16:02 | XMS_ITS | Encounter Summary ---
:1980 Author Organization [facility] Address [address] [place] [address] Care Team Providers Name Role Phone Ratna Olivas MD Primary Care Provider Reason for Visit Reason Comments Hand Pain BIBEMS tx from [facility]. R hand red, swollen and streaking up forearm. ulceration on left foot. hx IVDU, denies current use. limited ROM in L am. el evated WBCs, lactic WNL Diabetic Foot Infection Auth/Cert Specialty Diagnoses / Procedures Referred By Contact Refer red To Contact Diagnoses Right arm cellulitis Sepsis Referral ID Status Reason Start Date Expiration Date Visits Requ ested Visits Authorized [id number] 1 1 Encounter Details Date Type Department Care Team Description 04/23/2021 Surgery [facility] Main [place] Stone Bansal right carpal tunnel [address] Avni Paulson [place], [place] [address] irrigation and [phone] [place], [place], [place] [address] flexor tendon irrigation [phone] (Wo rk) and debridement [[id number] (CPT??)] Surgery Details Date/Time Status Location OR Service Patient Class Case Case Trauma Class Type Case? 04/23/21 1835 Posted [facility] OR [facility] Orthopedics Inpatient G - Less than 48 hours Panel 1 Procedure LRB Anes Op Region Wound Class Commen ts right carpal tunnel release, Right General Hand Class I V/ Dirty or right hand irrigation and Infected debridement, possible flexor tendon irrigation and debridement Surgeon Surgeon Role Service Panel Sourav Bolden MD Assisting Orthopedics 1 Kyle Caballero MD Resident - Assisting Orthopedics 1 Sourav Leal MD Resident - Assisting Orthopedics 1 Stone Bansal MD Primary Orthopedics 1 Social History Tobacco Use Types [...] Sign Reading Time Taken Comments Blood Pressure 102/67 04/23/2021 2100 EST Pulse 84 04/23/2021 1403 EST Temperature 36.7 ??C (98.1 ??F) 04/23/2021 1403 EST Respiratory Rate 17 04/23/2021 2100 EST Oxygen Saturation 96% 04/23/2021 2100 EST Inhaled Oxygen Concentration - - Weight [...] *Right arm cellulitis 04/23/2021 ??? Sepsis ([facility]) 04/24/2021 ??? Open wound of left great toe 04/24/2021 ??? Below-knee amputation of right lower extremity determined by examination ([facility]) 04/04/2019 ??? Opioid use disorder, mild, abuse ([facility] ([facility]) 01/17/2019 ??? Retained metal fragment foreign body 04/25/2021 Class: Permanent Right groin; needle ??? Acute carpal tunnel syndrome, right 04/22/2021 Added automatically from request for surgery [id number] Resolved Hospital Problems Diagnosis Date Noted Date Resolved ??? History of Raynaud's syndrome 04/24/2021 04/25/2021 Transition of care: [facility] Transition of Care report automatically routed [...] and chronic foot ulcers who presented from [facility] with concerns for worsening R arm cellulitis [...] She was maintained on a regimen of SOCIAL INSURANCE ANALYST dilaudid and ketamine drip before transitioning to PO regimentprior to discharge. Patient was discharged on CORE WORKER suboxone regimen with pain under control. Patient [...] Procedure Component Value Units Date/Time Cryoglobulin, Serum [[id number]] Collected: 05/03/21 0614 Lab Status: In process Specimen: Blood, Venous Updated: 05/03/21 0620 Bacterial Culture, Blood [[id number]] Collected: 05/02/21 162 Lab Status: In process Specimen: Blood, Venous Updated: 05/02/21 1635 Bacterial Culture, Blood [[id number]] Collected: 05/02/21 162 Lab Status: In process Specimen: Blood, Venous Updated: 05/02/21 1635 Upcoming Appointments May 05, 2021 13:55 Us Gillian & Physiologic Study with [id number] [facility] Vascular Surgery - [facility] (--) [address] [facility] [address] Prep: -Wear loose fitting clothing and footwear appropriate for walking in the event that exercise testingis required. -Please bring any insurance information and a copayment if required by your insurance company. May 16, 2021 14:30 Post Op Visit with Kev Hughes MD [facility] Hand & Upper Extremity Program [facility] De Guzman (--) [address] [facility] [address] Follow-up appointments and procedures [facility], [facility] I certify that this patient is under my care and that I, or another Medicare allowed practitioner (, DO, STU) working with me, had a [id number]-[id number]-wuoz encounter with this patient on this date: 05/03/2021 The discharge summary or progress note will provide further details that support the need for the home health services and the plan of care.: Yes Enter the allowed practitioner (DO AIDEE, STU) who will provide oversight of this patient's home heatlh care needs and plan of care: Ratna Olivas PCP The patient???s homebound status is related [...] Skilled Care Requested: Nursing asessment Wound care snf assessment needed related to this encounter: Wound, Ostomy or Incontinence Assessment [facility] Referral - Wound Care: (Please include care and frequency.): Other Please Specify: chronic left foot wounds Scheduling Comments (optional ??? describe specific scheduling needs if applicable): every other day: Vashe solution. Foot Ulcers should be covered with a thick layer of Vaseline, followed by application of non-adherent Telfa dressing. The foot should then be wrapped in Kerlix. Authorizing Provider: Brendon Justice MD [facility], [facility] Cleanse wound, apply santyl, and dress with telfa and kerlix. Change every other day. I certify that this patient is under my care and that I, or another Medicare allowed practitioner (DO AIDEE, STU) working with me, had a ftyt-nd-vphe encounter with this patient on this date: [...] upper extremities Skilled Care Requested: Wound care [facility] Referral - Wound Care: (Please include care [...] 05/03/[address] KEV HUGHES [address] [place] [id number] POST OPERATIVE INSTRUCTIONS 1. Keep your dressing/splint [...] you live out of town or out ofcommunity health you'll need to plan in advance [...] Disposition Code Departure Means Destination Home-Health Care [facility] documented in this encounter Progress Notes [...] 05/04/2021 1742 EST Halima Taylor RN from [facility] in [facility] called inquiring when was last dose of Suboxone was given. ANTOINETTE VARGAS RN 05/05/2021 11:48 Vaishali Humphrey - 05/04/2021 1541 EST Per , pt can be dc to home. She will have script for WC if needed. She will have ana VNA to assist with dressings. SHe has a ride scheduled with [facility] for 1800 in [facility] [employer]. Pt aware. Vaishali Briseno RNCCM #[id number] Malik Fofana MD - 05/04/2021 1300 [...] No new imaging. Assessment/Plan Assessment Lindsay Jean Baptiset is a 40 y.o. female with a PMHx significant for osteomyelitis status post right BKA, IVDU, opioid use disorder and chronic foot ulcers presents from [facility] for concerns for worsening right arm pain, [...] - ID consulted appreciate recs - Vanc [id number] - Continue ceftriaxone 2g Q24hrs until ready for discharge, then transition to cefpodoxime 200mg PO BID for total 4 week duration of abx (ending 05/21/21) - Pain regimen: APS now signed off - s/p Ketamine gtt - STOP dilaudid SOCIAL INSURANCE ANALYST today; switch to PO - Tylenol 1000 mg PO Q12hr - Continue CORE WORKER gabapentin 600mg qD - Tizanidine increased to 8mg PO Q8hr PRN - Ibuprofen 400mg PO q6hr PRN - Continue CORE WORKER 6mg total as Suboxone 2-0.5mg x 3 [...] BID #History of Raynaud's disease - Continue CORE WORKER gabapentin ?? #Opoid use disorder - Regularly gets Suboxone from [facility]. UDS at OSH positive for cocaine use. - Continue CORE WORKER suboxone - APS consulted , appreciate recs, [...] C, opioid use disorder, right BKA in 2018 for a foot infection, left hallux and second toe wounds followed by an outside six pack loader operator, right femoral artery infected pseudoaneurysm status [...] Leal MD 05/04/2021 0:44 I am not plastic injection mold maker today and will not be able to answer calls. Please direct calls to the orthopaedicson call resident for further questions. Karly Ferrara RN - 05/03/2021 1747 EST Data: Assumed care of Pt at 0700 Pt A&Ox3 Denies CP/SOB/N/V/D/GUILLEN. Pt is independent to commode. Continent of urine and stool. On Room air. On a SOCIAL INSURANCE ANALYST dilauded pump. BKA RLE. Pt went to [...] she looks forward to transitioning off the SOCIAL INSURANCE ANALYST after the OR today. Really hopeful they [...] disorder and chronic foot ulcers presents from [facility] for concerns for worsening right arm pain, [...] - ID consulted appreciate recs - Vanc [id number] - Continue ceftriaxone 2g Q24hrs until ready for discharge, then transition to cefpodoxime 200mg PO BID for total 4 week duration of abx (ending 05/21/21) - Pain regimen: APS now signed off - s/p Ketamine gtt - Dilaudid SOCIAL INSURANCE ANALYST 0.4mg q10 min PRN, no basal rate - plan to transition to PO after OR washout 05/03 - Tylenol 1000 mg PO Q12hr - Continue CORE WORKER gabapentin 600mg qD - Tizanidine increased to 8mg PO Q8hr PRN - Ibuprofen 400mg PO q6hr PRN - Continue CORE WORKER 6mg total as Suboxone 2-0.5mg x 3 [...] BID #History of Raynaud's disease - Continue CORE WORKER gabapentin ?? #Opoid use disorder - Regularly gets Suboxone from [facility]. UDS at OSH positive for cocaine use. - Continue CORE WORKER suboxone - APS consulted , appreciate recs, [...] second toe wound followed by an outside six pack loader operator, right femoral artery infected pseudoaneurysm status [...] and stool. On Room air. On a SOCIAL INSURANCE ANALYST dilauded pump. BKA RLE. NPO at midnight [...] for I&D tomorrow. -Antibiotics: Per ID -Continue local/CORE WORKER management of left foot ulceration with outpatient follow-up with six pack loader operator -Dispo: Pending REDDY JEROME MD 05/02/21 10:12 Patient has been formally staffed and signed out to the upper extremity service. Please page/contactthe on-call resident for that service with any questions regarding this patient's care. Vaishali Humphrey - 05/02/2021 0920 EST Pt is medically acute. Still needing closure of her wrist.CM following for DC needs. Plan for [place] [facility]. Vaishali BrisenoRNCCM #[id number] Brnedon Sherman MD - 05/02/2021 0724 EST Family [...] drip over the weekend. Using her dilaudid SOCIAL INSURANCE ANALYST frequently but is unsure how often. States [...] disorder and chronic foot ulcers presents from [facility] for concerns for worsening right arm pain, [...] - ID consulted appreciate recs - Vanc [id number] - Continue ceftriaxone 2g Q24hrs until ready for discharge, then transition to cefpodoxime 200mg PO BID for total 4 week duration of abx (ending 05/21/21) - f/u with ID regarding switch to ampicillin given speciation S. dysgalactiae - Pain regimen: APS now signed off - s/p Ketamine gtt - Dilaudid SOCIAL INSURANCE ANALYST 0.4mg q10 min PRN, no basal rate - consider transitioning to PO after OR washout tomorrow 05/03 - Tylenol 1000 mg PO Q12hr - Continue CORE WORKER gabapentin 600mg qD - Tizanidine increased to 8mg PO Q8hr PRN - Ibuprofen 400mg PO q6hr PRN - Continue CORE WORKER 6mg total as Suboxone 2-0.5mg x 3 film SL daily - Monitor fever curve - Daily CBCs with diff #Left Hallux and 2nd Toe Wound: Followed by podiatry at outside hospital. Ortho evaluated on admission and recommended dressing changes per patient home recs. - Dressing change q72hrs #Normocytic Anemia, chronic per chart review - f/u iron studies #History of Raynaud's disease - Continue CORE WORKER gabapentin ?? #Opoid use disorder - Regularly gets Suboxone from [facility] clinic. UDS at OSH positive for cocaine use. - Continue CORE WORKER suboxone - APS consulted , appreciate recs, [...] arm in cast with zofia bandage. Ketaminedrip. SOCIAL INSURANCE ANALYST dilaudid. Complains of pain 12/07. Action: Helped pt elevate RUE with pillows, gave meds per emar, hourly checks. Wound care dressing change on left foot. Response: Pt is comfortable in bed, using SOCIAL INSURANCE ANALYST, will continue to monitor. EVELYN NJ RN [...] Q24H, Sydnie Chakraborty, , 2,000 mg at 04/30/21 6747 ??? diphenhydrAMINE (BENADRYL) capsule 25 mg, 25 mg, oral, Q6H PRN, Sydnie Chakraborty, , 25 mg at 04/30/21 2345 ??? gabapentin (NEURONTIN) capsule 600 mg, 600 mg, oral, DAILY (BREAKFAST), Sarah Monet PA-C, 600 mg at 04/30/21 1139 ??? HYDROmorphone 1 mg/ml (DILAUDID) SOCIAL INSURANCE ANALYST syringe, 30 ml, , intravenous, CONTINUOUS, Leo [...] the patient is sedated). Tizanidine is an ocklo-6-dermepcy like dexmedetomidine which may help with anxiety, [...] duration of opioid use for specific surgeries: [employer] Website) ??? Continue hydromorphone SOCIAL INSURANCE ANALYST 0.4 mg every 10 mins No Basal [...] ketamine drip off. Has been using her SOCIAL INSURANCE ANALYST frequently for the cramping sensation, notes her [...] disorder and chronic foot ulcers presents from [facility] for concerns for worsening right arm pain, [...] - ID consulted appreciate recs - Vanc [id number]/26 - Continue ceftriaxone 2g Q24hrs until ready for discharge, then transition to cefpodoxime 200mg PO BID for total 4 week duration of abx (ending 05/21/21) - Pain regimen: APS now signed off - Ketamine gtt discontinued this morning - Dilaudid SOCIAL INSURANCE ANALYST 0.4mg q10 min PRN, no basal rate - Tylenol 500 mg PO Q6hr - Continue CORE WORKER gabapentin 600mg qD - Tizanidine increased to 8mg PO Q8hr PRN - Ibuprofen 400mg PO q6hr PRN - Continue CORE WORKER 6mg total as Suboxone 2-0.5mg x 3 film SL daily - Monitor fever curve - Daily CBCs with diff Left Hallux and 2nd Toe Wound: Followed by podiatry at outside hospital. Ortho evaluated on admission and recommended dressing changes per patient home recs. - Dressing change q72hrs History of Raynaud's disease - Continue CORE WORKER gabapentin ?? Opoid use disorder - Regularly gets Suboxone from [facility] clinic. UDS at OSH positive for cocaine use. - Continue CORE WORKER suboxone - APS consulted , appreciate recs, [...] MD 05/01/21 10:38 Family Medicine PGY3, Page #[phone] Associated attestation - Clark Salinas MD - [...] -Diet: Per primary -Antibiotics: Per ID -Continue local/CORE WORKER management of left foot ulceration with outpatient follow-up with six pack loader operator -Dispo: Pending. Will discuss repeat I&D [...] for operative invention -Antibiotics: Per ID -Continue local/CORE WORKER management of left foot ulceration with outpatient follow-up with six pack loader operator -Dispo: Pending Juan Schmitz MD Orthopaedic Surgery, PGY2 I am post call today and will be unable to answer questions about this patient. Please reach out to the orthopedic on-call resident with questions or concerns. Sydnie Donahue DO - 04/30/2021 0822 EST Family Medicine [...] disorder and chronic foot ulcers presents from [facility] for concerns for worsening right arm pain, [...] Ketamine gtt, decreased to 5mg/hr - Continue CORE WORKER gabapentin 600mg qD - Tizanidine 4mg PO Q8hr PRN - Ibuprofen 400mg PO q6hr PRN - Dilaudid SOCIAL INSURANCE ANALYST 0.4mg q10 min PRN, no basal rate - Continue CORE WORKER 6mg total as Suboxone 2-0.5mg x 3 film SL daily - Monitor fever curve - Daily CBCs with diff Left Hallux and 2nd Toe Wound: Followed by podiatry at outside hospital. Ortho evaluated on admission and recommended dressing changes per patient home recs. - Dressing change q72hrs History of Raynaud's disease - Continue CORE WORKER gabapentin ?? Opoid use disorder - Regularly gets Suboxone from [facility]. UDS at OSH positive for cocaine use. - Continue CORE WORKER suboxone - APS consulted , appreciate recs, [...] Chakraborty DO, MPH Family Medicine PGY3, Page #[phone] 04/30/21, 11:19 Associated attestation - Clark Salinas [...] 04/29/21 0804 ??? HYDROmorphone 1 mg/ml (DILAUDID) SOCIAL INSURANCE ANALYST syringe, 30 ml, , intravenous, CONTINUOUS, Leo [...] the patient is sedated). Tizanidine is an ksnab-8-mblbhkpb like dexmedetomidine which may help with anxiety, [...] duration of opioid use for specific surgeries: [employer] Website) ??? Continue hydromorphone SOCIAL INSURANCE ANALYST 0.4 mg every 10 mins No Basal [...] is in agreement with Brian SOW at [facility] for dressing changes. MD will need to specify dressing changes at [facility]. SHe will need a ride home ([facility]). SHe does use [facility] for transportat home and feels that they may supply transport home. CM following. Vaishali Briseno RNCCM #[id number] [facility] - 04/29/2021 0917 EST ACUTE PAIN SERVICE [...] 04/29/21 0804 ??? HYDROmorphone 1 mg/ml (DILAUDID) SOCIAL INSURANCE ANALYST syringe, 30 ml, , intravenous, CONTINUOUS, Leo Aguilar MD, New Bag at 04/28/211924 ??? ibuprofen (MOTRIN) tablet 400 mg, 400 mg, oral, Q6H PRN, Christin Young MD, 400 mg at ??? ketAMINE (KETALAR) 250 mg in NaCl 0.9% 25 mL syringe, 25 mg/hr, intravenous, CONTINUOUS, Sarah Monet PA-C, Last Rate: 2.5 mL/hr at 04/29/21 08, 25 mg/hr at 04/29/21806 ??? lactated ringers [...] the patient is sedated). Tizanidine is an owfvw-9-yajzdsdy like dexmedetomidine which may help with anxiety, [...] duration of opioid use for specific surgeries: [place] [employer]) ??? Continue hydromorphone SOCIAL INSURANCE ANALYST 0.4 mg every 10 mins No Basal [...] midnight -Antibiotics: Per ID -continuing ceftriaxone. -Continue local/CORE WORKER management of left foot ulceration with outpatient follow-up with six pack loader operator -Dispo: Pending. -Possible take back to OR on 04/30/21 for wound I&D and potential closure Juan Schmitz MD Orthopaedic Surgery, PGY2 Claude Marie MD - 04/29/2021 0705 EST [facility] Medicine Progress Note Service Date: 04/29/2021 Admit [...] CBC: Recent Labs 04/27/21 0530 04/28/21 0703 12/31/21 0538 WBC 6.29 9.14 10.20 RBC 3.43* [...] disorder and chronic foot ulcers presents from [facility] for concerns for worsening right arm pain, [...] placed History of Raynaud's disease - Continue CORE WORKER gabapentin ?? Opoid use disorder - Regularly gets Suboxone from [facility] clinic. UDS at OSH positive for cocaine use. - continue CORE WORKER suboxone APS consulted , appreciate recs, pain [...] DAILY (BREAKFAST) ??? HYDROmorphone 1 mg/ml (DILAUDID) SOCIAL INSURANCE ANALYST syringe, 30 ml intravenous CONTINUOUS ??? ibuprofen [...] , , ??? HYDROmorphone 1 mg/ml (DILAUDID) SOCIAL INSURANCE ANALYST syringe, 30 ml, , intravenous, CONTINUOUS, Leo Aguilar MD, New Bag at 04/28/21 0228 ??? ibuprofen (MOTRIN) tablet 400 mg, 400 mg, oral, Q6H PRN, Christin Young MD, 400 mg at ??? ketAMINE (KETALAR) 250 mg in NaCl 0.9% 25 mL syringe, 25 mg/hr, intravenous, CONTINUOUS, Sarah Monet PA-C, Last Rate: 2.5 mL/hr at 04/28/2135, 25 mg/hr at 04/28/2135 ??? lactated ringers (LR) infusion, , intravenous, [...] the patient is sedated). Tizanidine is an tkfvg-9-ifpotkwy like dexmedetomidine which may help with anxiety, [...] duration of opioid use for specific surgeries: [place] [employer] Website) ??? Continue hydromorphone SOCIAL INSURANCE ANALYST 0.4 mg every 10 mins No Basal [...] patient easily transitioned off of ketamine and SOCIAL INSURANCE ANALYST prior to surgery on 04/27/21. Will expect she will be able to transition easily again. Thank you for including the Acute Pain Service in care of this patient. Please contact us (pager #[phone]) with any questions or concerns. Patient seen with Arnold Arredondo MD (Attending) LEO AGUILAR MD Anesthesiology, PGY2 FConJuan gomez MD - 04/28/2021 0810 EST Orthopaedic Daily [...] primary -Antibiotics: Per ID -continuing ceftriaxone. -Continue local/CORE WORKER management of left foot ulceration with outpatient follow-up with six pack loader operator -Dispo: Pending Juan Schmitz MD Orthopaedic [...] disorder and chronic foot ulcers presents from [facility] for concerns for worsening right arm pain, [...] Ketamine gtt (manged by APS) - Continue CORE WORKER gabapentin 600mg qD - Tizanidine 4mg PO Q8hr PRN - Ibuprofen 400mg PO q6hr PRN - Dilaudid SOCIAL INSURANCE ANALYST 0.4mg q10 min PRN, no basal rate - Continue CORE WORKER 6mg total as Suboxone 2-0.5mg x 3 film SL daily - Follow-up OSH blood clxs -Called and left message 04/25 (negative BC at [facility] to date suggesting that this may not [...] placed History of Raynaud's disease - Continue CORE WORKER gabapentin ?? Opoid use disorder - Regularly gets Suboxone from [facility] clinic. UDS at OSH positive [...] Chakraborty DO, MPH Family Medicine PGY3, Page #[phone] 04/28/21, 7:28 Associated attestation - Clark Salinas MD - 04/28/2021 1324 EST Attestation: I performed or was present during the joseph or critical portions of the visit and participated in the management of the patient on 04/28/2021. I agree with the findings and plan of care documented in the resident's/fellow's note. Sepsis. Deep hand infection status post washout with interval closure and [place] drain. Sepsis resolved. Pain greatly improved from last night. Titration of SOCIAL INSURANCE ANALYST per APS. Anticipate DC tomorrow or possibly Sunday Clark Salinas MD 04/28/2021 13:23 Ayaz Jernigan RN - 04/28/2021 0607 EST Data: Assumed care of patient at 2330 AOx3 on room air with even, nonlabored respirations. Has intact dressing to right arm s/p I&D 04/27. Non-pitting swelling to fingers of right hand. Well healedright BKA. Ketamine infusion at 25 mg/hr and Hydromorphone SOCIAL INSURANCE ANALYST at 0.4 mg q10 mins; 2.4 mg [...] restarted ketamine, trialed Precedex bolus, and restartedhydromorphone SOCIAL INSURANCE ANALYST. Cannot perform brachial plexus block due to [...] , , , HYDROmorphone 1 mg/ml (DILAUDID) SOCIAL INSURANCE ANALYST syringe, 30 ml, , intravenous, CONTINUOUS, Leo [...] PRN, Tamra Chavarria MD, 2 mg at 12/29/21 1040 naloxone (NARCAN) injection 0.2 mg, 0.2 [...] Restart Ketamine and increase to 25 mg/hr [place] Precedex bolus 1 mcg/kg over 10 mins to help with post-op pain/anxiety Continue gabapentin 600 mg PO daily Muscle Relaxant: Continue tizanidine 4 mg PO Q8H PRN (hold if systolic blood pressure < 100 mmHg or if the patient is sedated). Tizanidine is an zecvw-0-ngwjwzrn like dexmedetomidine which may help with anxiety, [...] duration of opioid use for specific surgeries: [place] [employer] Website) Restart hydromorphone SOCIAL INSURANCE ANALYST 0.4 mg every 10 mins No Basal [...] of this patient. Please contact us (pager #[phone]) with any questions or concerns. Patient seen [...] closure and dc pending result. [id number] Juan Alonzo MD - 04/27/2021 0714 EST [...] OR -Antibiotics: Per ID -continuing ceftriaxone. -Continue local/CORE WORKER management of left foot ulceration with outpatient follow-up with six pack loader operator -Plan for operative intervention with orthopedic [...] disorder and chronic foot ulcers presents from [facility] for concerns for worsening right arm pain, [...] gtt (manged by APS) - D/C Dilaudid SOCIAL INSURANCE ANALYST 04/25, transition to dilaudid 4-6 mg PO q3hr for pain - hydromorphone 0.5 mg IV Q4H PRN for breakthough pain - Tizanidine 4mg PO Q8hr - Continue CORE WORKER gabapentin - Continue CORE WORKER suboxone Suboxone 2-0.5mg 3 film SL daily - Follow-up OSH blood clxs -Called and left message 04/25 (negative BC at [facility] to date suggesting that this may not [...] recs. History of Raynaud's disease - Continue CORE WORKER gabapentin ?? Opoid use disorder - [facility] Rehabilitation. UDS at OSH positive for cocaine use. [...] James MD Family Medicine, PGY-3 04/27/21 6:48 #[id number] Associated attestation - Clark Salinas MD - 04/27/2021 1254 EST Attestation: I performed or was present during the ojseph or critical portions of the visit and [...] well after transitioning off of her HM SOCIAL INSURANCE ANALYST to PO hydromorphone. States her pain is [...] (ANCEF) syringe 2 g, 2 g, intravenous, MANAGER STATISTICAL PROGRAMMING TO O.R., Sourav Leal MD cefTRIAXone (ROCEPHIN) 2,000 mg in sodium chloride (NS MBP) 50 mL IVPB, 2,000 mg, intravenous, Q24H, Sourav Leal MD, 2,000 mg at 04/25/21 2327 gabapentin (NEURONTIN) capsule 600 mg, 600 mg, oral, DAILY (BREAKFAST), Sourav Leal MD, 600 mg at 04/26/21 0827 HYDROmorphone (DILAUDID) liquid 4-6 mg, 4-6 mg, oral, Q3H PRN, Leo Aguilar MD, 6 mg at 04/26/21 1300 HYDROmorphone (PF) (DILAUDID) 0.5 mg/0.5 mL syringe 0.5 mg, 0.5 mg, intravenous, Q4H PRN, Leo Aguilar MD ibuprofen (MOTRIN) tablet 400 mg, 400 mg, oral, Q6H PRN, Joya Camarena MD, 400 mg at 04/26/21 08 ketAMINE (KETALAR) 250 mg in NaCl 0.9% [...] DAILY, Joya Camarena MD, 17 g at 04/26/21 08 senna (SENOKOT) tablet 2 Tablet, 2 Tablet, [...] the patient is sedated). Tizanidine is an ngnki-1-zwmrynqs like dexmedetomidine which may help with anxiety, [...] duration of opioid use for specific surgeries: [place] Open Website) Hydromorphone 4-6 mg PO Q3H [...] of this patient. Please contact us (pager #[phone]) with any questions or concerns. Patient seen [...] midnight -Antibiotics: Per ID -continuing ceftriaxone. -Continue local/CORE WORKER management of left foot ulceration with outpatient follow-up with six pack loader operator -Dispo: Pending -Plan for repeat I&D with potential wound closure tomorrow 04/27/21 Juan Schmitz MD Orthopaedic Surgery, PGY2 Pager #[phone] Kraig Guerrier MD - 04/26/2021 0653 EST [...] 04/27/2021] ceFAZolin (ANCEF) syringe 2 g intravenous MANAGER STATISTICAL PROGRAMMING TO O.R. ??? cefTRIAXone (ROCEPHIN) 2,000 mg [...] disorder and chronic foot ulcers presents from [facility] for concerns for worsening R arm cellulitis [...] gtt (manged by APS) - D/C Dilaudid SOCIAL INSURANCE ANALYST 04/25, transition to dilaudid 4-6 mg PO q3hr for pain - hydromorphone 0.5 mg IV Q4H PRN for breakthough pain - Tizanidine 4mg PO Q8hr - Continue CORE WORKER gabapentin - Continue CORE WORKER suboxone Suboxone 2-0.5mg 3 film SL daily - Follow-up OSH blood clxs -Called and left message 04/25 (negative BC at [facility] to date suggesting that this may not [...] recs. #History of Raynaud's disease - Continue CORE WORKER gabapentin ?? #Opoid use disorder - Regularly gets Suboxone from [facility] clinic. UDS at OSH positive [...] Type of housing (single family, condo, apartment, intermediate, single room occupancy, [facility] funded hotel room, [facility] [place] [facility]) - apartment Who does the patient live with?daughter-9Y.O. Does the patient have access to their own bedroom/bathroom/kitchen - or is it shared with others? own Name of housing complex (ex [address], [place] [facility], [facility], etc)- [facility] Housing Authority/Managing Organization - subsidized housing Community Care Providers (top case assembler, [facility] nurse, etc) name and contact information-na LIVING [...] treatment DIRECTIVES FOR FINANCES: TRANSPORTATION: Transportation: Medicaid/MedicareTransport [place] Transportation: RCT Patient expects to be discharged to: Home CULTURAL, CATHOLIC and/or LANGUAGE factors affecting health care/discharge planning: [...] device: Crutch/Walker Community Services: Home health, MOW, [facility]-none of one time a week Will you [...] Home Health Services: None DME Provider: Pharmacy: [id number] - [facility], [place] - [address] [facility] [address] [facility] [id number] Home Health: Other: POST HOSPITAL TRANSITION PLAN:Pt resides with her 9YO daughter in an apartment in [place]. SHe has a wc but rarely uses it and relies on crutches to get around. She states she is in process of obtaining a prosthesis and is supposed to be getting it Apr this next year. She does drive but her car is incapacitated at the moment so she uses [facility] to get to medical appointments. . She will need a ride home and will need to contact [facility] for ride. She states her new PCP is Georgette Ramsey, at [facility] internal Medicine in [place] [facility]. CM will follow for any DC [...] 04/25/21 0848 ??? HYDROmorphone 1 mg/ml (DILAUDID) SOCIAL INSURANCE ANALYST syringe, 30 ml, , intravenous, SOCIAL INSURANCE ANALYST, Kyle Caballero MD, Rate Verify at 04/25/21604 [...] Rate: 75 mL/hrat 04/25/2120, New Bag at 04/25/21 002 ??? lidocaine [...] the patient is sedated). Tizanidine is an wilzl-8-zegshorn like dexmedetomidine which may help with anxiety, [...] duration of opioid use for specific surgeries: [employer] Website) ??? Stop SOCIAL INSURANCE ANALYST ??? Start hydromorphone 4-6 mg PO Q3H [...] of this patient. Please contact us (pager #[phone]) with any questions or concerns. Patient seen [...] her left foot ulceration, she continue her CORE WORKER management with outpatient follow-up with her six pack loader operator. TOMEKA HUERTA MD 04/25/2021 8:29 Kraig [...] patient on a ketamine gtt and dilaudid SOCIAL INSURANCE ANALYST. Subjective/Objective Subjective Patient resting comfortably in bed [...] DAILY (BREAKFAST) ??? HYDROmorphone 1 mg/ml (DILAUDID) SOCIAL INSURANCE ANALYST syringe, 30 ml intravenous SOCIAL INSURANCE ANALYST ??? ibuprofen (MOTRIN) tablet 400 mg oral [...] disorder and chronic foot ulcers presents from [facility] for concerns for worsening R arm cellulitis [...] gtt (manged by APS) - D/C Dilaudid SOCIAL INSURANCE ANALYST, transition to dilaudid 4-6 mg PO q3hr for pain - Consider hydromorphone 0.5 mg IV Q4H PRN for breakthough pain - Tizanidine 4mg PO Q8hr - Continue CORE WORKER gabapentin - Continue CORE WORKER suboxone Suboxone 2-0.5mg 3 film SL daily - Follow-up OSH blood clxs -Called and left message today (negative BC at [facility] to date suggesting that this may not [...] recs. #History of Raynaud's disease - Continue CORE WORKER gabapentin ?? #Opoid use disorder - Regularly gets Suboxone from [facility] clinic. UDS at OSH positive [...] an outpatient by her orthopedic surgeon in [place] Clark Salinas MD 04/25/2021 14:23 Elmira Lynne [...] 04/24/2021 16:53 Jona Orozco MBBS - 04/24/2021 0939 EST ACUTE PAIN SERVICE INITIAL INPATIENT FOLLOW [...] Leal MD ??? HYDROmorphone 1 mg/ml (DILAUDID) SOCIAL INSURANCE ANALYST syringe, 30 ml, , intravenous, SOCIAL INSURANCE ANALYST, Kyle Caballero MD, New Bag at 04/23/212026 [...] QHS, Joya Camarena MD, 2 Tablet at 04/23/215 ??? tiZANidine (ZANAFLEX) tablet 4 mg, 4 [...] the patient is sedated). Tizanidine is an egwxf-8-npbfgxrr like dexmedetomidine which may help with anxiety, [...] duration of opioid use for specific surgeries: [employer] Open Website) ??? Continue HM IV SOCIAL INSURANCE ANALYST 0.4mg q10 ??? Pt's home dose daily [...] of this patient. Please contact us (pager #[phone]) with any questions or concerns. 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 Subjective/Objective Subjective The patient notes that her [...] DAILY (BREAKFAST) ??? HYDROmorphone 1 mg/ml (DILAUDID) SOCIAL INSURANCE ANALYST syringe, 30 ml intravenous SOCIAL INSURANCE ANALYST ??? ibuprofen (MOTRIN) tablet 400 mg oral [...] disorder and chronic foot ulcers presents from [facility] for concerns for worsening R arm cellulitis [...] Ketamine gtt (manged by APS) - Dilaudid SOCIAL INSURANCE ANALYST (managed by APS), SOCIAL INSURANCE ANALYST dose 0.4mg, Max limit 2.4mg/hr - Tizanidine 4mg PO Q8hr - Continue CORE WORKER gabapentin - Continue CORE WORKER suboxone - Follow-up OSH blood clxs (attempted [...] recs. #History of Raynaud's disease - Continue CORE WORKER gabapentin ?? #Opoid use disorder - Regularly gets Suboxone from [facility] clinic. UDS at OSH positive for cocaine use. - Continue CORE WORKER Suboxone 6-1.5 mg once daily - Inpatient substance use treatment algorithm: - UDS samples PRN - Consult pharmacy for med review - Cover all IVs at all time - Substance use agreement signed ?? VTE Prophylaxis Seqential Compression Device *Note patient isn't on apixaban CORE WORKER, as previously noted in her chart. ?? Code: Prior Discharge Plan Home or self care ?? Consults None Gigi Ramos MD 04/24/2021 8:15 Family Medicine [id number] signed by Zhen Beavers III, MD at [...] and she is on ketamine and dilaudid SOCIAL INSURANCE ANALYST. Reassuringly, her clinic picture is slightly improved [...] answer calls. Please direct calls to orthopaedics plastic injection mold maker resident for further questions. Sourav Corea MD [...] disorder and chronic foot ulcers presents from [facility] for concerns for worsening R arm cellulitis [...] that she has had to come to [place] to seek care, but hopes she is in the right place. Reports she receives her Suboxone (on taper bc wants to get off, decreased to 4+2 QAM about a month ago) for from the [facility] clinic Denies any recent IVDU including in right upper extremity. Denies trauma including around nail of the upper extremity and denies soaking in any water. Reports her UPT was negative at [facility]. History of pseudomonas from a [...] disorder and chronic foot ulcers presents from [facility] for concerns for worsening R arm cellulitis [...] need med rec if patient still taking CORE WORKER Gabapentin, patient not able to confirm on initial assessment #Opoid use disorder - Regularly gets Suboxone from [facility] clinic. UDS at OSH positive [...] Patient seen and discussed with Dr. Luz Chavarrai. Maribel Wells DO 04/23/2021 4:38 ATTENDING ATTESTATION [...] fluctuance. Psych: Appropriate mood and affect. Access: [facility] Labs Recent Labs 05/03/21 0524 05/04/21 [...] podiatry team. Patient followed closely by podiatry [place] who plans to do an amputation of [...] from last operation: 05/03/2021-05/16/2021 3. Follow-up with six pack loader operator in [place] upon discharge who plans to do amputation [...] repeat CBC in 2-3 days. MD Komal McnamaraRamila MD - 05/02/2021 1640 ESTAssociated Order(s): CONSULT [...] [START ON 05/03/2021] ceFAZolin, 2 g, intravenous, MANAGER STATISTICAL PROGRAMMING TO O.R. cefTRIAXone (ROCEPHIN) IVPB (2 g [...] or concerns. Malik Cain MD Dermatology, PGY-3 #[id number] 05/02/2021 19:31 Attestation Statement: I saw and examined the patient with the resident/fellow. I agree with the findings and plan of care documented in the resident's/fellow's note. Ramila Mcnamara MD Dermatology [facility] Eren Garner, - 04/28/2021 0907 EST INFECTIOUS DISEASES CONSULT [...] mL syringe ??? HYDROmorphone 1 mg/ml (DILAUDID) SOCIAL INSURANCE ANALYST syringe, 30 ml intravenous CONTINUOUS ??? ibuprofen [...] podiatry team. Patient followed closely by podiatry [place] who plans to do an amputation of [...] stop day 21 May. Patient lives in [facility] and can follow-up with her PCM 2. Follow-up with six pack loader operator in [place] upon discharge who plans to do amputation of left great toe per her report. Eren Tavarez DO Pager [phone] Infectious Diseases Attending FWhEren romo DO - [...] 04/27/2021] ceFAZolin (ANCEF) syringe 2 g intravenous MANAGER STATISTICAL PROGRAMMING TO O.R. ??? cefTRIAXone (ROCEPHIN) 2,000 mg [...] next blood draw Eren Tavarez DO Pager [phone] Infectious Diseases Attending Aubrey Mar MD - [...] redness with pain. She was seen at [facility] and a CT showed fluid around the [...] Bacteremia due to Staphylococcus aureus, Cocaineabuse ([facility]), DVT (deep venous thrombosis) ([facility]) ([facility]), Hepatitis C antibody positive in blood, Iron deficiency anemia, Polysubstance abuse (HCC-CMS) ([facility]), Retained foreign body, and Skin abscess. Past Surgical History: has a past surgical history that includes Ectopic surgery; Abdominal exploration surgery; vascular surgery (Right, 06/29/2017); below knee amputation (Right); and Hand surgery. Medications: MAR reviewed. Anti-infectives: Ceftriaxone 2 g day D3 / Vancomycin D3 Allergies: Patient has no known allergies. 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 APS consulted for assistance with postoperative pain management. Patient currently sedated in PACU, unable to perform ROS. Location: [facility] REVIEW OF SYSTEMS: unable to perform [...] Status Never Smoker Smokeless Tobacco Never Used [place] PRESCRIPTION MONITORING PROGRAM QUERY: VPMS Link Medications: Current Facility-Administered Medications: ??? [MAR Hold] acetaminophen (TYLENOL) tablet 650 mg, 650 mg, oral, Q6H PRN, Cvdana, Gigi Rivera MD, 650 mg at 04/23/21 1654 ??? atropine 0.1 mg/mL syringe 0.5 mg, 0.5 mg, intravenous, PRN, Ginns, Pako, AA ??? [JUN Hold] buprenorphine-naloxone (SUBOXONE) 2-0.5 mg sublingual film 3 Film, 3 Film, sublingual, DAILY, Russell, Maribel, DO, 3 Film at 04/23/21 0819 ??? [MAR Hold] cefTRIAXone (ROCEPHIN) 2,000 mg in sodium chloride (NS MBP) 50 mL IVPB, 2,000 mg, intravenous, Q24H, Maribel Wells, DO ??? [MAR Hold] cyclobenzaprine (FLEXERIL) tablet [...] mg, 2-4 mg, oral, Q30 MINUTES PRN, Yulys, Pako, AA ??? [MAR Hold] HYDROmorphone (DILAUDID) tablet 4 mg, 4 mg, oral, Q4H PRN, Gigi Ramos MD, 4mg at 04/23/21 1444 ??? HYDROmorphone (PF) (DILAUDID) 0.5 mg/0.5 mL syringe 0.3-0.5 mg, 0.3-0.5 mg, intravenous, Q10 MINUTES PRN, Yulys, Pako, AA, 0.5 mg at 04/23/212031 ??? HYDROmorphone 1 mg/ml (DILAUDID) SOCIAL INSURANCE ANALYST syringe, 30 ml, , intravenous, SOCIAL INSURANCE ANALYST, Jose David, Ruthie, DO, New Bag at 04/23/212026 ??? ketAMINE (KETALAR) 250 mg in NaCl 0.9% 25 mL syringe, 15 mg/hr, intravenous, CONTINUOUS, Jose David, Ruthie, DO, Last Rate: 1.5 mL/hr at 04/23/212032, 15 mg/hr at 04/23/212032 ??? lactated ringers (LR) infusion, , intravenous, PACU CONTINUOUS, Ginns, Pako, AA ??? [MAR Hold] lidocaine (PF) 10 mg/mL (1 %) injection 2 mg, 2 mg, intradermal, PRN, Russell, Maribel, DO ??? metoclopramide (REGLAN) injection 10 mg, 10 mg, intravenous, PRN, Ginns, Pako, AA ??? naloxone (NARCAN) injection 0.2 mg, 0.2 mg, intravenous, PRN, Ginns, Pako, AA ??? ondansetron (PF) (ZOFRAN) injection 4 mg, 4 mg, intravenous, PRN, Ginns, Pako, AA ??? [MAR Hold] vancomycin (VANCOCIN) IVPB 1,000 mg, 1,000 [...] the patient is sedated). Tizanidine is an rhvsd-7-mcpfagjz like dexmedetomidine which may helpwith anxiety, sleep, [...] duration of opioid use for specific surgeries: [employer] Website) ??? Patient Controlled Analgesia (SOCIAL INSURANCE ANALYST): Start hydromorphone .4 mg per demand 10 [...] of this patient. Please contact us (pager #[phone]) with any questions or concerns. Ruthie Main [...] Diabetes Paternal Grandfather Social History: Lives in [place] with her daughter has been on disability [...] flexor pollicis longus, extensor pollicis longus, interossei, programmer analyst health it due to pain; 5/5 strength in elbow [...] 7/0.65/89/--/--/--/-- (04/22 1639) Assessment: Lindsay Jean Baptiste [id number] 1980 Lindsay Jean Baptiste is a right-hand [...] SERVICE DATE: 05/03/2021 SURGEON: Kev Hughes MD AIR BAG STRIPPER: Soni Tirado PA-C (no residents available) PREOPERATIVE [...] the operating room by another surgeon at [facility] and undergone an open carpal [...] retained. Kev Hughes MD / AM Confirmation: [id number] Dictation ID: [id number] cc: R Surgeon - Shane Cuevas MD - 04/30/2021 0000 EST OPERATIVE REPORT SERVICE DATE: 04/30/2021 PREOPERATIVE DIAGNOSIS: Right hand volar wound. POSTOPERATIVE DIAGNOSIS: Right hand volar wound. PROCEDURE: Right palm and proximal forearm volar wound irrigation and debridement of the carpal tunnel. SURGEON: Shane Cuevas MD AIR BAG STRIPPER: Reddy Jerome MD, PGY1 ANESTHESIA: General endotracheal. [...] was turned to her wound. The previous [place] drain actually came out as we were [...] drains retained. Shane Cuevas MD / Confirmation: [id number] Dictation ID: [id number] cc: R Surgeon - Stone Bansal MD - 04/27/2021 0000 EST OPERATIVE REPORT SERVICE DATE: 04/27/2021 SURGEON: Stone Bansal MD AIR BAG STRIPPER: AUBREE Hartley-Certified (No ACGME qualified resident was available to assist because of duty hour restrictions. Because of the complexity of the case, as indicated in the Procedure section; and described in detail in the Narrative section below, I requested AUBREE Hartley, to assist. During this procedure, the PA performed the following functions in the operating room: The intellectual property legal assistant at the time of surgery under [...] retained. Stone Bansal MD / CD Confirmation: [id number] Dictation ID: [id number] cc: R Surgeon - Kyle Caballero MD - 04/24/2021 0105 EST OPERATIVE REPORT SERVICE DATE:04/23/2021 SURGEON: Stone Bansal MD AIR BAG STRIPPER: MD Kyle Guerrero MD PREOPERATIVE DIAGNOSIS:right open carpal tunnel syndrome POSTOPERATIVE DIAGNOSIS: same PROCEDURE: right open carpal tunnel release ANESTHESIA: General anesthesia FLUIDS:500 cc TOURNIQUET TIME:24 minutes URINE OUTPUT: 0 SPECIMENS: purulent fluid sent for culture COMPLICATIONS: none INDICATIONS: Lindsay Jean Baptiste is a mghsm-skaz-fiburfml 40-year-old female with past medical history including [...] proximally and distally by palpation with a Colon as well as direct visualization. The median nerve was inspected andwas found to be without further compression. A Colon was gently used to explore the flexor [...] metal (needle tip) in left groin. aware. Tiffany Salazar RN - 04/23/2021 0055 [...] hand pain. The patient was transferred to [facility] from [facility] over concern over right hand infection. [...] decision making. Yovany Cr PA-C - 04/22/2021 1775 EST Emergency Department Visit Chief Complaint Hand Pain (BIBEMS tx from [facility]. R hand red, swollen and streaking up forearm. ulceration on left foot. hx IVDU, denies current use. limited ROM in L am. elevated WBCs, lactic WNL) and Diabetic Foot Infection Assessment and ED Course Final diagnoses: None Relevant Data as of Apr 25 2250 Fri Apr 22, 2021 1903 in brief, 40-year-old female [...] today with Hand Pain (BIBEMS tx from [facility]. R hand red, swollen and streaking up forearm. ulceration on left foot. hx IVDU, denies current use. limited ROM in L am. elevated WBCs, lactic WNL) and Diabetic Foot Infection Patient is transferred from [facility] for concern about right hand infection, [...] few days. She was seen yesterday at [facility] was found to be febrile with a leukocytosis. She had blood cultures collected, was started on vancomycin andceftriaxone. CT scan of the right upper extremity showed fluid around the right hand flexor tendons,concerning for flexor tenosynovitis. Original plan was to transfer to [facility], but this fell through and patient was accepted by [facility] orthopedics for evaluation. Patient takes [...] of any of her fingers. Redness extends prison up the medial forearm, otherwise stops justproximal [...] and stool. On Room air. On a SOCIAL INSURANCE ANALYST dilauded pump. EMILY OLSON. Action: Head to [...] pain is a tolerable 08/07. WC. CINDY JAMESMARLON 05/04/2021 3:06 rief Op Note - Soni Tirado PA-C - 05/03/2021 1036 EST Date: 04/22/2021 - 05/03/2021 Location: [facility] OR Name: Lindsay Jean Baptiste, : 1980, Diagnosis Pre-Op Diagnosis Codes: * Right arm cellulitis [L03.113] * Acute carpal tunnel syndrome, right [G56.01] Post-op Diagnosis * Right arm cellulitis [L03.113] * Acute carpal tunnel syndrome, right [G56.01] Procedures right hand irrigation and debridement with closure 19277 - AK DEBRIDEMENT, SKIN, SUB-Q TISSUE,MUSCLE,EACH ADD 20 SQ [...] 14 min Rt arm @ 250mmHg Staff: Coo: Sal Tubbs RN Scrub Person: Nya Balbuena Patient Lathe Winder: Ozzie Lizama Indications: Lindsay Jean Baptiste is [...] for the entire procedure Kev Hughes MD [id number] signed by Soni Tirado PA-C at 05/03/2021 10:38 ESTPlan of Cruz - Cindy James LPN - 05/03/2021 0309 [...] and stool. On Room air. On a SOCIAL INSURANCE ANALYST dilauded pump. BKA RLE. Currently NPO for morning procedure. Action: Head to toe assessment. Medicated per JUN. PRN given for muscle spasms @ 2230, Hourly checks. Response: No acute changes this shift. Pt resting in bed with eyes closed. States pain is a tolerable /10. WCTM. CINDY JAMES LPN 05/03/2021 3:06 lan of Cruz - Sourav Leal MD - 05/02/2021 0843 [...] med per eMAR, she is on dilaudid SOCIAL INSURANCE ANALYST we are clear up Q 2 . Patient has her hand elevated. R : Patient is able to move her fingers, the pain seems well controled by SOCIAL INSURANCE ANALYST, non grimaces or moaning, will continue to [...] touch with minimal movement of right fingers. SOCIAL INSURANCE ANALYST dilaudid and ketamine drip in place for [...] Independent to commode. Ketamine gtt and dilaudid SOCIAL INSURANCE ANALYST. Action: Scheduled medications and PRN Benadryl and [...] cellulitis Procedure(s): Complex I&D UE Wound (CPT 52885) Findings: No purulence or evidence of necrotic [...] 1 cm of the volar wound. Staff: Coo: Tamika Cox RN Scrub Person: Goldie Barry RN Patient Lathe Winder: Gui Livingston Disposition and Condition: PACU in [...] her right arm /fingers. Pt is on SOCIAL INSURANCE ANALYST dilaudid and Ketamine drip for pain management [...] RN Outcome: Ongoing 04/29/2021 1510 by Catrachita Barnett RN Outcome: Ongoing Pt verbalizes acceptable pain [...] on continuous IVKetamine infusion and IV Dilaudid SOCIAL INSURANCE ANALYST. C/O 5-6/10 right wrist pain intermittently throughout [...] on Ketamine drip as well as Dilaudid SOCIAL INSURANCE ANALYST with verbalized effect. Dressing and splint clean, [...] Continuous Ketamine infusion as well as Dilaudid SOCIAL INSURANCE ANALYST with verbalized positive effect. Dressing clean, dry, [...] 0909 EST Date: 04/22/2021 - 04/27/2021 Location: [facility] OR Name: Lindsay Jean Baptiste, : 1980, Diagnosis Pre-Op Diagnosis Codes: * Right arm cellulitis [L03.113] Post-op Diagnosis * Right arm cellulitis [L03.113] Procedures COMPLEX INCISION AND DRAINAGE, WOUND, UPPER EXTREMITY 50190 - AK COMPLEX DRAINAGE, WOUND Surgeons * Stone Bansal MD - Primary Flako MAK intellectual property legal assistant Procedure Summary Anesthesia: General ASA: III [...] Wound 04/23/21 Incision Right;Anterior Wrist (Active) Staff: Coo: Sal Tubbs RN Scrub Person: Christiano Reyes; Mendel Chavez LNA Patient Lathe Winder: Sourav Garcia Indications: Lindsay Jean Baptiste is [...] for the entire procedure Stone Bansal MD [id number] signed by Sarah Monet PA-C at 04/27/2021 [...] and using bedside commode. NWB on RUE. SOCIAL INSURANCE ANALYST Ketamin infusing. Going to [facility] after midnight for I&D with potential wound closure tomorrow. C/o pain 6-8/10 on RUE. Reported ear ringing this morning. MD aware. Stop ketamine drip for 1 hr per MD order. Action: Administered medications as per ordered. Given PRN dilaudid, ibuprofen and scheduled tylenol,SOCIAL INSURANCE ANALYST ketamine for pain. Hourly checks and monitor [...] 04/25/2021 12:57 lan of Care - Viviane Cole, JARRED - 04/26/2021 0210 EST Problem: Daily Care [...] she states a wound care clinic in [place] has been tending to her chronic wound [...] pillow routinely. Action: changed dressing, d/'d dilaudid scada technician, monitored pain control regularly. Response: pt removed [...] Ketamine drip @ 1.5 mL/hr and Dilaudid SOCIAL INSURANCE ANALYST in place. 3x R-sided IJ in place, continuous LR running @ 75 mL/hr. Pt [facility] at midnight pending surgery on RUE today. Pt denies chest pain, SOB, N/V, or headache at this time. Action: Assessment complete, medicated per JUN- new Dilaudid and Ketamine syringes, rates [id number]. Hourly rounding complete, clustered care to promote [...] continuous Ketamine infusions as well as Dilaudid SOCIAL INSURANCE ANALYST through right CVC. Continues on IV antibiotic therapy with tolerance. Voided large amount of clear odorless urine at 0245 without difficulty. Complaints of 6/10 discomfort. Action: Medications administered as ordered, see MAR. Care clustered to promote sleep and comfort. Response: In bed with eyes closed. CATRACHITA BARNETT RN 04/24/2021 3:23 harmacy Note - Alethea Pacheco [facility] - 04/24/2021 0307 EST Pharmacy [...] Surgeon: Stone Bansal MD, Sourav Bolden MD Drug Safety Assistant: Kyle Caballero MD Anesthesia Type: General Tourniquet [...] left great toe, unspecified ulcer stage ([facility] (HCC) AMB CONS/FOLLOW UP Outpatient Urgent Skin ulcer of left Exp ected: HOME HEALTH Referral great toe, 05/06/2021 SERVICES unspecified ulcer (Approxima te), stage ([facility]) Expires: (HCC) 05/04/2022 documented as of this [...] AEROBES), OTHER the results section. RELEASE, CARPAL 04/23/2021 18:50 Acute carpal tunnel TUNNEL, OPEN EST syndrome, right TEST, URINE STAT 04/23/2021 18:31 Re sults [...] MANUAL (05/04/2021 5:52 EST) Neutrophils 57.0 % [facility] Lymphocytes 31.0 % [facility] Atypical Lymphocytes 3.0 % [facility] Monocytes 6.0 % [facility] Eosinophils 3.0 % [facility] Absolute Neutrophils 1.11 (L) 2.20 - 8.85 [facility] K/[facility] LABORATORY SERVICES Absolute Lymphocytes 0.60 (L) 1.09 - 3.30 [facility] K/[facility] LABORATORY SERVICES Absolute Atypical 0.06 K/[facility] Lymphocytes LABORATORY SERVICES Absolute Monocytes 0.12 0.10 - 0.80 [facility] K/[facility] LABORATORY SERVICES Absolute Eosinophils 0.06 0.03 - 0.61 [facility] K/[facility] LABORATORY SERVICES Specimen Blood - Venous blood (substance) Performing Organization Address City/State/ZIP Code Phon e Number [facility] [address] [place] [address] SERVICES (ABNORMAL) COMPLETE BLOOD COUNT AND DIFFERENTIAL (05/04/2021 5:52 EST) Pathologist Sig nature WBC 1.95 (L) 4.00 - 12.40 [facility] K/m LABORATORY SERVICES RBC 3.29 (L) 3.86 - 5.04 [facility] M/[facility] LABORATORY SERVICES Hemoglobin 8.9 (L) 11.6 - 15.2 [facility] gm/dL LABORATORY SERVICES HCT 29.1 (L) 34.9 - 44.4 % [facility] MCV 88 81 - [address] [facility] MCH 27.1 26.7 - 33.[address] [facility] MCHC 30.6 (L) 32.1 - 35.9 [facility] gm/dL LABORATORY SERVICES RDW-CV 12.7 <14.7 % [facility] RDW-SD 41.6 <50.[address] [facility] PLT 218 141 - 377 K/m [facility] MPV 10.6 9.5 - 12.[address] [facility] Type of Manual [facility] Differential: LABORATORY SERVICES Specimen Blood - Venous blood (substance) Performing Organization Address City/[facility]/ZIP Code Phon e Number [facility] [address] [place] [address] SERVICES BASIC METABOLIC PANEL (BMP) (05/04/2021 5:51 EST) Pathologist Sig nature Sodium 137 136 - 145 mmol/L [facility] Potassium 4.2 3.5 - 5.0 mmol/L [facility] Chloride 99 96 - 110 mmol/L [facility] CO2 Total 29 22 - 32 mmol/L [facility] Anion Gap 9 8 - 16 [facility] Glucose 97 70 - 100 mg/dL [facility] Calcium 8.5 8.5 - 10.5 mg/dL [facility] BUN 17 10 - 26 mg/dL [facility] Creatinine 0.59 0.52 - 1.04 mg/dL [facility] eGFR 117 >60 mL/min/1.73m2 [facility] Specimen Blood - Venous blood (substance) Performing Organization Address City/[facility]/ZIP Code Phon e Number [facility] [address] [place] [address] SERVICES TRANSTHORACIC ECHO (TTE) COMPLETE W/DOPPLER W/CF [...] 6:14 EST) Cryoglobulin, S Negative Negative %ppt [facility] Comment: LABORATORIES This test is negative at 24 hours. All samples are hel d and reviewed again at 7 days. If delayed precipitation occ urs after 7 days, Immunofixation will be performed and an additional report will follow. Test Performed by: [facility] [address] [place] [address] Fingernail Former: Jake Cordova M.D. Ph.D.; CLIA# [id number] Specimen Blood - Venous blood (substance) Performing Organization Address City/[facility]/ZIP Code Phon e Number [facility] [address] [place] [address] HOLD RED TOP (05/03/2021 5:43 EST) Pathologist Sig nature Hold Hold [facility] Y SERVICES Specimen Blood - Venous blood (substance) Performing Organization Address [facility] Phon e Number [facility] [address] [place] [address] SERVICES HOLD RED TOP (05/03/2021 5:42 EST) Pathologist Sig nature Hold Hold [facility] SERVICES Specimen Blood - Venous blood (substance) Performing Organization Address [facility] Phon e Number [facility] [address] [place] [address] SERVICES (ABNORMAL) BASIC METABOLIC PANEL (BMP) (05/03/2021 5:25 EST) Pathologist Sig nature Sodium 137 136 - 145 mmol/L [facility] Potassium 4.2 3.5 - 5.0 mmol/L [facility] Chloride 98 96 - 110 mmol/L [facility] CO2 Total 29 22 - 32 mmol/L [facility] Anion Gap 10 8 - 16 [facility] Glucose 111 (H) 70 - 100 mg/dL [facility] Calcium 9.0 8.5 - 10.5 mg/dL [facility] BUN 21 10 - 26 mg/dL [facility] Creatinine 0.69 0.52 - 1.04 mg/dL [facility] eGFR 111 >60 mL/min/1.73m2 [facility] Specimen Blood - Venous blood (substance) Performing Organization Address City/[facility]/ZIP Code Phon e Number [facility] [address] [place] [address] SERVICES (ABNORMAL) COMPLETE BLOOD COUNT AND DIFFERENTIAL (05/03/2021 5:24 EST) WBC 2.37 (L) 4.00 - 12.40 [facility] LABORATORY SERVICES RBC 3.41 (L) 3.86 - 5.04 [facility] LABORATORY SERVICES Hemoglobin 9.7 (L) 11.6 - 15.2 [facility] gm/dL LABORATORY SERVICES HCT 29.4 (L) 34.9 - 44.4 % [facility] MCV 86 81 - [address] [facility] MCH 28.4 26.7 - 33.[address] [facility] MCHC 33.0 32.1 - 35.9 [facility] gm/dL LABORATORY SERVICES RDW-CV 13.0 <14.7 % [facility] RDW-SD 40.5 <50.[address] [facility] PLT 236 141 - 377 K/[facility] LABORATORY SERVICES MPV 10.9 9.5 - 12.[address] [facility] Neutrophils 63.7 % [facility] Lymphocytes 20.7 % [facility] Monocytes 12.7 % [facility] Eosinophils 0.8 % [facility] Basophils 0.8 % [facility] Immature Grans 1.3 % [facility] Absolute Neutrophils 1.51 (L) 2.20 - 8.85 [facility] LABORATORY SERVICES Absolute Lymphocytes 0.49 (L) 1.09 - 3.30 [facility] LABORATORY SERVICES Absolute Monocytes 0.30 0.10 - 0.80 [facility] LABORATORY SERVICES Absolute Eosinophils 0.02 (L) 0.03 - 0.61 [facility] LABORATORY SERVICES Absolute Basophils 0.02 0.01 - 0.11 [facility] LABORATORY SERVICES Absolute Immature 0.03 0.00 - 0.06 [facility] Grans /[facility] LABORATORY SERVICES Type of Differential: Auto [facility] Specimen Blood - Venous blood (substance) Performing Organization Address City/State/ZIP Code Phon e Number [facility] [address] [place] [address] SERVICES BACTERIAL CULTURE, BLOOD (05/02/2021 16:26 EST) Pathologist Sig nature Organism ID No Growth at [address] [facility] Specimen Blood - Venous blood (substance) Performing Organization Address [facility] Phon e Number [facility] [address] [place] [address] SERVICES BACTERIAL CULTURE, BLOOD (05/02/2021 16:26 EST) Pathologist Sig nature Organism ID No Growth at [address] [facility] Specimen Blood - Venous blood (substance) Performing Organization Address [facility]/ZIP Code Phon e Number [facility] [address] [place] [address] SERVICES FERRITIN (05/02/2021 6:05 EST) Pathologist Sig nature Ferritin 61 10 - 291 ng/mL [facility] LABORAT ORY SERVICES Specimen Blood - Venous blood (substance) Performing Organization Address [facility]/ZIP Code Phon e Number [facility] [address] [place] [address] SERVICES IBC (05/02/2021 6:05 EST) Pathologist Sig nature Iron Binding 320 265 - 497 ??g/dL [facility] [employer] LABORATORY SERVICES Specimen Blood - Venous blood (substance) Performing Organization Address [facility]/ZIP Code Phon e Number [facility] [address] [place] [address] SERVICES IRON (05/02/2021 6:05 EST) Pathologist Sig nature Iron 39 37 - 170 ??g/dL [facility] LABORA TORY SERVICES Specimen Blood - Venous blood (substance) Performing Organization Address [facility]/ZIP Code Phon e Number [facility] [address] [place] [address] SERVICES (ABNORMAL) BASIC METABOLIC PANEL (BMP) (05/02/2021 6:05 EST) Pathologist Sig nature Sodium 135 (L) 136 - 145 mmol/L [facility] Potassium 4.0 3.5 - 5.0 mmol/L [facility] Chloride 98 96 - 110 mmol/L [facility] CO2 Total 29 22 - 32 mmol/L [facility] Anion Gap 8 8 - 16 [facility] Glucose 93 70 - 100 mg/dL [facility] Calcium 8.9 8.5 - 10.5 mg/dL [facility] BUN 19 10 - 26 mg/dL [facility] Creatinine 0.64 0.52 - 1.04 mg/dL [facility] eGFR 114 >60 mL/min/1.73m2 [facility] Specimen Blood - Venous blood (substance) Performing Organization Address City/State/ZIP Code Phon e Number [facility] [address] [place] [address] SERVICES (ABNORMAL) COMPLETE BLOOD COUNT AND DIFFERENTIAL (05/02/2021 6:05 EST) WBC 4.30 4.00 - 12.40 [facility] LABORATORY SERVICES RBC 3.24 (L) 3.86 - 5.04 [facility] LABORATORY SERVICES Hemoglobin 8.9 (L) 11.6 - 15.2 [facility] gm/dL LABORATORY SERVICES HCT 29.2 (L) 34.9 - 44.4 % [facility] SERVICES MCV 90 81 - [address] [facility] MCH 27.5 26.7 - 33.[address] [facility] MCHC 30.5 (L) 32.1 - 35.9 [facility] gm/dL LABORATORY SERVICES RDW-CV 12.7 <14.7 % [facility] SERVICES RDW-SD 41.8 <50.[address] [facility] SERVICES PLT 220 141 - 377 /[facility] LABORATORY SERVICES MPV 10.4 9.5 - 12.[address] [facility] SERVICES Neutrophils 76.9 % [facility] Lymphocytes 9.8 % [facility] Monocytes 10.0 % [facility] Eosinophils 1.2 % [facility] Basophils 0.7 % [facility] Immature Grans 1.4 % [facility] Absolute Neutrophils 3.31 2.20 - 8.85 [facility] LABORATORY SERVICES Absolute Lymphocytes 0.42 (L) 1.09 - 3.30 [facility] LABORATORY SERVICES Absolute Monocytes 0.43 0.10 - 0.80 [facility] K/[facility] LABORATORY SERVICES Absolute Eosinophils 0.05 0.03 - 0.61 [facility] K/[facility] LABORATORY SERVICES Absolute Basophils 0.03 0.01 - 0.11 [facility] K/[facility] LABORATORY SERVICES Absolute Immature 0.06 0.00 - 0.06 [facility] Grans K/[facility] LABORATORY SERVICES Type of Differential: Auto [facility] SERVICES Specimen Blood - Venous blood (substance) Performing Organization Address [facility] Phon e Number [facility] [address] [place] [address] SERVICES (ABNORMAL) BASIC METABOLIC PANEL (BMP) (05/01/2021 5:32 EST) Pathologist Sig nature Sodium 137 136 - 145 mmol/L [facility] Potassium 4.8 3.5 - 5.0 mmol/L [facility] Chloride 98 96 - 110 mmol/L [facility] CO2 Total 29 22 - 32 mmol/L [facility] Anion Gap 10 8 - 16 [facility] Glucose 100 70 - 100 mg/dL [facility] Calcium 9.1 8.5 - 10.5 mg/dL [facility] SERVICES BUN 28 (H) 10 - 26 mg/dL [facility] Creatinine 0.72 0.52 - 1.04 mg/dL [facility] eGFR 107 >60 mL/min/1.73m2 [facility] Specimen Blood - Venous blood (substance) Performing Organization Address [facility]/ZIP [facility] Phon e Number [facility] [address] [place] [address] SERVICES (ABNORMAL) COMPLETE BLOOD COUNT AND DIFFERENTIAL (05/01/2021 5:32 EST) WBC 6.24 4.00 - 12.40 [facility] K/[facility] LABORATORY SERVICES RBC 3.36 (L) 3.86 - 5.04 [facility] M/[facility] LABORATORY SERVICES Hemoglobin 9.6 (L) 11.6 - 15.2 [facility] gm/dL LABORATORY SERVICES HCT 29.5 (L) 34.9 - 44.4 % [facility] SERVICES MCV 88 81 - [address] [facility] SERVICES MCH 28.6 26.7 - 33.[address] [facility] SERVICES MCHC 32.5 32.1 - 35.9 [facility] gm/dL LABORATORY SERVICES RDW-CV 12.9 <14.7 % [facility] SERVICES RDW-SD 41.1 <50.[address] [facility] SERVICES PLT 351 141 - 377 K/[facility] LABORATORY SERVICES MPV 9.8 9.5 - 12.[address] [facility] SERVICES Neutrophils 74.3 % [facility] Lymphocytes 12.7 % [facility] Monocytes 7.7 % [facility] Eosinophils 2.6 % [facility] Basophils 0.8 % [facility] Immature Grans 1.9 % [facility] Absolute Neutrophils 4.64 2.20 - 8.85 [facility] LABORATORY SERVICES Absolute Lymphocytes 0.79 (L) 1.09 - 3.30 [facility] LABORATORY SERVICES Absolute Monocytes 0.48 0.10 - 0.80 [facility] LABORATORY SERVICES Absolute Eosinophils 0.16 0.03 - 0.61 [facility] LABORATORY SERVICES Absolute Basophils 0.05 0.01 - 0.11 [facility] LABORATORY SERVICES Absolute Immature 0.12 (H) 0.00 - 0.06 [facility] LABORATORY SERVICES Type of Differential: Auto [facility] SERVICES Specimen Blood - Venous blood (substance) Performing Organization Address City/State/ZIP Code Phon e Number [facility] [address] [place] [address] SERVICES BASIC METABOLIC PANEL (BMP) (04/30/2021 5:42 EST) Pathologist Sig nature Sodium 138 136 - 145 mmol/L [facility] Potassium 4.8 3.5 - 5.0 mmol/L [facility] Chloride 98 96 - 110 mmol/L [facility] CO2 Total 29 22 - 32 mmol/L [facility] Anion Gap 11 8 - 16 [facility] Glucose 99 70 - 100 mg/dL [facility] Calcium 9.4 8.5 - 10.5 mg/dL [facility] BUN 24 10 - 26 mg/dL [facility] Creatinine 0.69 0.52 - 1.04 mg/dL [facility] eGFR 111 >60 mL/min/1.73m2 [facility] Specimen Blood - Venous blood (substance) Performing Organization Address City/State/ZIP Code Phon e Number [facility] [address] [place] [address] SERVICES (ABNORMAL) COMPLETE BLOOD COUNT AND DIFFERENTIAL (04/30/2021 5:41 EST) WBC 7.18 4.00 - 12.40 [facility] LABORATORY SERVICES RBC 3.65 (L) 3.86 - 5.04 [facility] LABORATORY SERVICES Hemoglobin 10.1 (L) 11.6 - 15.2 [facility] gm/dL LABORATORY SERVICES HCT 32.9 (L) 34.9 - 44.4 % [facility] SERVICES MCV 90 81 - [address] [facility] MCH 27.7 26.7 - 33.[address] [facility] SERVICES MCHC 30.7 (L) 32.1 - 35.9 [facility] gm/dL LABORATORY SERVICES RDW-CV 13.0 <14.7 % [facility] SERVICES RDW-SD 42.9 <50.[address] [facility] SERVICES PLT 359 141 - 377 K/[facility] LABORATORY SERVICES MPV 9.9 9.5 - 12.[address] [facility] SERVICES Neutrophils 64.6 % [facility] Lymphocytes 19.5 % [facility] Monocytes 8.1 % [facility] Eosinophils 2.9 % [facility] Basophils 0.7 % [facility] Immature Grans 4.2 % [facility] SERVICES Absolute Neutrophils 4.64 2.20 - 8.85 [facility] LABORATORY SERVICES Absolute Lymphocytes 1.40 1.09 - 3.30 [facility] LABORATORY SERVICES Absolute Monocytes 0.58 0.10 - 0.80 [facility] LABORATORY SERVICES Absolute Eosinophils 0.21 0.03 - 0.61 [facility] LABORATORY SERVICES Absolute Basophils 0.05 0.01 - 0.11 [facility] LABORATORY SERVICES Absolute Immature 0.30 (H) 0.00 - 0.06 [facility] Grans K/[facility] LABORATORY SERVICES Type of Differential: Auto [facility]ORY SERVICES Specimen Blood - Blood sample taken from central line (situation) Performing Organization Address [facility] Phon e Number [facility] [address] [place] [address] SERVICES COVID-19 TEST [facility] PCR (04/29/2021 15:26 EST) Specimen Swab - Entire nasopharynx (body structur e) Performing Organization Address [facility] Phon e Number [facility] [address] [place] [address] SERVICES COVID-19 TESTING (04/29/2021 15:26 EST) COVID-19 rt-PCR Negative Negative [facility] Comment: [facility] This test has not been FDA [...] and epidemiological informatio n. Performed on the [employer] Fusion instrument Performing Lab Gary [facility] Lab [facility] SERVICES Specimen Swab - Entire nasopharynx (body structur e) Performing Organization Address [facility] Phon e Number [facility] [address] [place] [address] SERVICES BASIC METABOLIC PANEL (BMP) (04/29/2021 5:38 EST) Pathologist Sig nature Sodium 137 136 - 145 mmol/L [facility] SERVICES Potassium 4.7 3.5 - 5.0 mmol/L [facility] SERVICES Chloride 99 96 - 110 mmol/L [facility] SERVICES CO2 Total 29 22 - 32 mmol/L [facility] SERVICES Anion Gap 9 8 - 16 [facility] SERVICES Glucose 99 70 - 100 mg/dL [facility] SERVICES Calcium 9.3 8.5 - 10.5 mg/dL [facility] SERVICES BUN 18 10 - 26 mg/dL [facility] Creatinine 0.60 0.52 - 1.04 mg/dL [facility] SERVICES eGFR 116 >60 mL/min/1.73m2 [facility] SERVICES Specimen Blood - Venous blood (substance) Performing Organization Address City/State/ZIP Code Phon e Number [facility] [address] [place] [address] SERVICES (ABNORMAL) COMPLETE BLOOD COUNT AND DIFFERENTIAL (04/29/2021 5:38 EST) WBC 10.20 4.00 - 12.40 [facility] LABORATORY SERVICES RBC 3.45 (L) 3.86 - 5.04 [facility] LABORATORY SERVICES Hemoglobin 9.8 (L) 11.6 - 15.2 [facility] gm/dL LABORATORY SERVICES HCT 30.2 (L) 34.9 - 44.4 % [facility] LABORATORY SERVICES MCV 88 81 - [address] [facility] LABORATORY SERVICES MCH 28.4 26.7 - 33.[address] [facility] LABORATORY SERVICES MCHC 32.5 32.1 - 35.9 [facility] gm/dL LABORATORY SERVICES RDW-CV 13.1 <14.7 % [facility] LABORATORY SERVICES RDW-SD 41.3 <50.[address] [facility] LABORATORY SERVICES PLT 312 141 - 377 /[facility] LABORATORY SERVICES MPV 9.9 9.5 - 12.[address] [facility] LABORATORY SERVICES Neutrophils 74.9 % [facility] LABORATORY SERVICES Lymphocytes 12.2 % [facility] Monocytes 7.5 % [facility] Eosinophils 2.8 % [facility]ORY SERVICES Basophils 0.5 % [facility] LABOR[facility]ORY SERVICES Immature Grans 2.1 % [facility] LABORATORY SERVICES Absolute Neutrophils 7.64 2.20 - 8.85 [facility] LABORATORY SERVICES Absolute Lymphocytes 1.24 1.09 - 3.30 [facility] K/[facility] LABORATORY SERVICES Absolute Monocytes 0.77 0.10 - 0.80 [facility] K/[facility] LABORATORY SERVICES Absolute Eosinophils 0.29 0.03 - 0.61 [facility] LABORATORY SERVICES Absolute Basophils 0.05 0.01 - 0.11 [facility] LABORATORY SERVICES Absolute Immature 0.21 (H) 0.00 - 0.06 [facility] Grans /[facility] LABORATORY SERVICES Type of Differential: Auto [facility] LABORATORY SERVICES Specimen Blood - Venous blood (substance) Performing Organization Address [facility] Phon e Number [facility] LABORATORY [address] [place] [address] SERVICES BASIC METABOLIC PANEL (BMP) (04/28/2021 7:43 EST) Pathologist Sig nature Sodium 139 136 - 145 mmol/L [facility] LABORATORY SERVICES Potassium 4.6 3.5 - 5.0 mmol/L [facility] LABORATORY SERVICES Chloride 99 96 - 110 mmol/L [facility] LABORATORY SERVICES CO2 Total 28 22 - 32 mmol/L [facility] LABORATORY SERVICES Anion Gap 12 8 - 16 [facility] LABORATORY SERVICES Glucose 99 70 - 100 mg/dL [facility] LABORATORY SERVICES Calcium 8.9 8.5 - 10.5 mg/dL [facility] LABORATORY SERVICES BUN 14 10 - 26 mg/dL [facility] LABORATORY SERVICES Creatinine 0.66 0.52 - 1.04 mg/dL [facility] LABORATORY SERVICES eGFR 112 >60 mL/min/1.73m2 [facility] LABORATORY SERVICES Specimen Blood - Venous blood (substance) Performing Organization Address [facility] Phon e Number [facility] LABORATORY [address] [place] [address] SERVICES (ABNORMAL) COMPLETE BLOOD COUNT AND DIFFERENTIAL (04/28/2021 7:03 EST) WBC 9.14 4.00 - 12.40 [facility] LABORATORY SERVICES RBC 3.41 (L) 3.86 - 5.04 [facility] M/[facility] LABORATORY SERVICES Hemoglobin 9.6 (L) 11.6 - 15.2 [facility] gm/dL LABORATORY SERVICES HCT 30.0 (L) 34.9 - 44.4 % [facility] LABORATORY SERVICES MCV 88 81 - [address] [facility] LABORATORY SERVICES MCH 28.2 26.7 - 33.[address] [facility] LABORATORY SERVICES MCHC 32.0 (L) 32.1 - 35.9 [facility] gm/dL LABORATORY SERVICES RDW-CV 13.2 <14.7 % [facility] LABORATORY SERVICES RDW-SD 42.4 <50.[address] [facility] LABORATORY SERVICES PLT 292 141 - 377 K/[facility] LABORATORY SERVICES MPV 10.2 9.5 - 12.[address] [facility] LABORATORY SERVICES Neutrophils 71.1 % [facility] LABORATORY SERVICES Lymphocytes 13.2 % [facility] LABORATORY SERVICES Monocytes 9.4 % [facility] LABORATORY SERVICES Eosinophils 3.1 % [facility] LABORATORY SERVICES Basophils 0.7 % [facility] LABORATORY SERVICES Immature Grans 2.5 % [facility] LABORATORY SERVICES Absolute Neutrophils 6.50 2.20 - 8.85 [facility] LABORATORY SERVICES Absolute Lymphocytes 1.21 1.09 - 3.30 [facility] LABORATORY SERVICES Absolute Monocytes 0.86 (H) 0.10 - 0.80 [facility] LABORATORY SERVICES Absolute Eosinophils 0.28 0.03 - 0.61 [facility] LABORATORY SERVICES Absolute Basophils 0.06 0.01 - 0.11 [facility] LABORATORY SERVICES Absolute Immature 0.23 (H) 0.00 - 0.06 [facility] LABORATORY SERVICES Type of Differential: Auto [facility] LABORATORY SERVICES Specimen Blood - Blood sample taken from central line (situation) Performing Organization Address City/State/ZIP Code Phon e Number [facility] LABORATORY [address] [place] [address] SERVICES EKG 12-LEAD (04/27/2021 13:19 EST) Specimen Narrative [facility] EKG - 04/28/2021 16:1 0 EST ? [facility] ? Test Date: ?2021-04-27 Pat Name: ? LINDSAY JEAN BAPTISTE ?Department: ?? Pacu ? Room: ? OR Gender: ? Female ? Program Engineer: ?? [id number] : ?1980 ? Requested By: SOBIA William Order Number: [id number] ? Reading MD: ?? DENIS LOBEL MD ? Measurements Intervals ?[place] ? Rate: ? 75 ? P: ?39 AK: ? 150 ?QRS: ?9 QRSD: ? 89 [...] Note Denis Rosario MD - 04/28/2021 [facility] Test Date: 2021-04-27 Pat Name: LINDSAY JEAN BAPTISTE Department: Pacu Room: OR Gender: Female Program Engineer: [id number] : 1980 Requested By: SOBIA William Order Number: [id number] Reading MD: Katiuska ROSARIO MD Measurements Intervals [place] Rate: 75 P: 39 AK: 150 QRS: 9 QRSD: 89 T: 26 [...] by DENIS ROSARIO MD. Performing Organization Address City/[facility]/ZIP Code Phon e Number [facility] EKG (ABNORMAL) ANAEROBE CULTURE/SMEAR(INC. AEROBES), OTHER (04/27/2021 9:38 EST) Organism ID Rare Streptococcus [facility] dysgalactiae LABORATORY SERVICES (A)Comment: Penicillin and ampicillin are drugs of choice for treatment of beta hemolytic streptococcal infections. Smear No Neutrophils Seen [facility] LABORATORY SERVICES Smear No bacteria seen [facility] LABORATORY SERVICES Specimen Tissue - Soft tissue (navigational christina pt) Performing Organization Address City/State/ZIP Code Phon e Number [facility] LABORATORY [address] [place] [address] SERVICES HEPATITIS A ANTIBODY IGM (04/27/2021 5:30 EST) Pathologist Sig nature Hepatitis A Antibody, Negative Negative [facility] IgM LABORATORY SERVICES Specimen Blood - Venous blood (substance) Narrative [facility] LABORATORY SERVICES - 04/27/2021 11:27 EST The results of this assay can be falsely lowered due to the consumption of Biotin. Performing Organization Address [facility]/ZIP [facility] Phon e Number [facility] LABORATORY [address] [place] [address] SERVICES (ABNORMAL) BASIC METABOLIC PANEL (BMP) (04/27/2021 5:30 EST) Pathologist Sig nature Sodium 138 136 - 145 mmol/L [facility] LABORATORY SERVICES Potassium 4.3 3.5 - 5.0 mmol/L [facility] LABORATORY SERVICES Chloride 100 96 - 110 mmol/L [facility] LABORATORY SERVICES CO2 Total 29 22 - 32 mmol/L [facility] LABORATORY SERVICES Anion Gap 9 8 - 16 [facility] LABORATORY SERVICES Glucose 104 (H) 70 - 100 mg/dL [facility] LABORATORY SERVICES Calcium 8.7 8.5 - 10.5 mg/dL [facility] LABORATORY SERVICES BUN 17 10 - 26 mg/dL [facility] LABORATORY SERVICES Creatinine 0.63 0.52 - 1.04 mg/dL [facility] LABORATORY SERVICES eGFR 114 >60 mL/min/1.73m2 [facility] LABORATORY SERVICES Specimen Blood - Venous blood (substance) Performing Organization Address City/[facility]/ZIP Code Phon e Number [facility] LABORATORY [address] [place] [address] SERVICES (ABNORMAL) COMPLETE BLOOD COUNT AND DIFFERENTIAL (04/27/2021 5:30 EST) WBC 6.29 4.00 - 12.40 [facility] K/m LABORATORY SERVICES RBC 3.43 (L) 3.86 - 5.04 [facility] M/[facility] LABORATORY SERVICES Hemoglobin 9.5 (L) 11.6 - 15.2 [facility] gm/dL LABORATORY SERVICES HCT 30.3 (L) 34.9 - 44.4 % [facility] LABORATORY SERVICES MCV 88 81 - [address] [facility] LABORATORY SERVICES MCH 27.7 26.7 - 33.[address] [facility] LABORATORY SERVICES MCHC 31.4 (L) 32.1 - 35.9 [facility] gm/dL LABORATORY SERVICES RDW-CV 13.2 <14.7 % [facility] LABORATORY SERVICES RDW-SD 42.5 <50.[address] [facility] LABORATORY SERVICES PLT 257 141 - 377 K/[facility] LABORATORY SERVICES MPV 10.2 9.5 - 12.[address] [facility] LABORATORY SERVICES Neutrophils 64.4 % [facility] LABORATORY SERVICES Lymphocytes 18.3 % [facility] LABORATORY SERVICES Monocytes 8.7 % [facility] LABORATORY SERVICES Eosinophils 3.3 % [facility] LABORATORY SERVICES Basophils 0.8 % [facility] LABORATORY SERVICES Immature Grans 4.5 % [facility] LABORATORY SERVICES Absolute Neutrophils 4.05 2.20 - 8.85 [facility] LABORATORY SERVICES Absolute Lymphocytes 1.15 1.09 - 3.30 [facility] LABORATORY SERVICES Absolute Monocytes 0.55 0.10 - 0.80 [facility] LABORATORY SERVICES Absolute Eosinophils 0.21 0.03 - 0.61 [facility] LABORATORY SERVICES Absolute Basophils 0.05 0.01 - 0.11 [facility] LABORATORY SERVICES Absolute Immature 0.28 (H) 0.00 - 0.06 [facility] LABORATORY SERVICES Type of Differential: Auto [facility] LABORATORY SERVICES Specimen Blood - Venous blood (substance) Performing Organization Address [facility]/ZIP Code Phon e Number [facility] LABORATORY [address] [place] [address] SERVICES HEPATITIS B CORE ANTIBODY (TOTAL) (04/27/2021 5:30 EST) Pathologist Sig nature Hepatitis B Core Ab, Negative Negative [facility] Total LABORATORY SERVICES Specimen Blood - Venous blood (substance) Performing Organization Address City/[facility]/ZIP [facility] Phon e Number [facility] LABORATORY [address] [place] [address] SERVICES HEPATITIS B SURFACE ANTIGEN (04/27/2021 5:30 EST) Pathologist Sig nature Hep B Surface Ag Negative Negative [facility] LABORATORY SERVICES Specimen Blood - Venous blood (substance) Performing Organization Address [facility]/ZIP [facility] Phon e Number [facility] LABORATORY [address] [place] [address] SERVICES HEPATITIS B SURFACE ANTIBODY (04/27/2021 5:30 EST) Hep B Surface Ab, >1000.[address] [facility] Quantitative Comment: mIU/mL [facility]ORY Reference Range for Hep B Surface Ab, Quant: SERVICES Positive: >= 10.0 mIU/mL Negative: ??< 10.0 mIU/mL Patient is presumed to be immune to infection with Hep atitis B Virus. Hep B Surface Ab, Positive See Note [facility] Qualitative Comment: [facility] LAB[facility]ATORY Reference Range for Hep B Surface Ab, Qual: SERVICES Unvaccinated: ??Negative Vaccinated: ??Positive Specimen Blood - Venous blood (substance) Performing Organization Address City/State/ZIP Code Phon e Number [facility] LABORATORY [address] [place] [address] SERVICES (ABNORMAL) HEPATITIS A TOTAL ANTIBODY W REFLEX (04/27/2021 5:30 EST) Pathologist [facility] nature Hepatitis A Positive (A) Negative [facility] Antibody, Total LABORATORY SERVICES Specimen Blood - Venous blood (substance) Narrative [facility] LABORATORY SERVICES - 04/27/2021 10:24 EST The result of this assay can be falsely elevated (Positive) due to the consumption of Biotin. Performing Organization Address City/[facility]/ZIP Code Phon e Number [facility] LABORATORY [address] [place] [address] SERVICES HIV 1/2 ANTIGEN AND ANTIBODY, 4TH GENERATION (04/27/2021 5:30 EST) Pathologist [facility] HIV 1 and 2 NegativeComment: If Negative [facility] Antibody/p24 acute HIV-1 LABORATORY Antigen, 4th infection is SERVICES Generation suspected in a high risk patient, submit plasma specimen for HIV-1 RNA quantitation test. Specimen Blood - Venous blood (substance) Narrative [facility] LABORATORY SERVICES - 04/27/2021 9:46 EST Fourth Generation assay performed on the Siemens Centaur XPT. Performing Organization Address City/State/ZIP Code Phon e Number [facility] LABORATORY [address] [place] [address] SERVICES COVID-19 TEST [facility] LAB PCR (04/26/2021 11:20 EST) Specimen Swab - Entire nasopharynx (body structur e) Performing Organization Address City/[facility]/ZIP Code Phon e Number [facility] LABORATORY [address] [place] [address] SERVICES COVID-19 TESTING (04/26/2021 11:20 EST) COVID-19 rt-PCR Negative Negative [facility] Result Comment: [facility] LAB[facility]ATORY This test [...] and epidemiological informatio n. Performed on the Tirendo Fusion instrument Performing Lab Gary [facility] Lab [facility] LABORATORY SERVICES Specimen Swab - Entire nasopharynx (body structur e) Performing Organization Address [facility] Phon e Number [facility] LABORATORY [address] [place] [address] SERVICES (ABNORMAL) BASIC METABOLIC PANEL (BMP) (04/26/2021 6:19 EST) Pathologist Sig nature Sodium 139 136 - 145 mmol/L [facility] LABORATORY SERVICES Potassium 4.0 3.5 - 5.0 mmol/L [facility] LABORATORY SERVICES Chloride 102 96 - 110 mmol/L [facility] LABORATORY SERVICES CO2 Total 32 22 - 32 mmol/L [facility] LABORATORY SERVICES Anion Gap 5 (L) 8 - 16 [facility] LABORATORY SERVICES Glucose 107 (H) 70 - 100 mg/dL [facility] LABORATORY SERVICES Calcium 8.6 8.5 - 10.5 mg/dL [facility] LABORATORY SERVICES BUN 16 10 - 26 mg/dL [facility] LABORATORY SERVICES Creatinine 0.67 0.52 - 1.04 mg/dL [facility] LABORATORY SERVICES eGFR 112 >60 mL/min/1.73m2 [facility] LABORATORY SERVICES Specimen Blood - Venous blood (substance) Performing Organization Address [facility] Phon e Number [facility] LABORATORY [address] [place] [address] SERVICES (ABNORMAL) COMPLETE BLOOD COUNT AND DIFFERENTIAL (04/26/2021 6:18 EST) WBC 7.22 4.00 - 12.40 [facility] LABORATORY SERVICES RBC 3.34 (L) 3.86 - 5.04 [facility] M/[facility] LABORATORY SERVICES Hemoglobin 9.4 (L) 11.6 - 15.2 [facility] gm/dL LABORATORY SERVICES HCT 28.9 (L) 34.9 - 44.4 % [facility] LABORATORY SERVICES MCV 87 81 - [address] [facility] LABORATORY SERVICES MCH 28.1 26.7 - 33.[address] [facility] LABORATORY SERVICES MCHC 32.5 32.1 - 35.9 [facility] gm/dL LABORATORY SERVICES RDW-CV 13.1 <14.7 % [facility] LABORATORY SERVICES RDW-SD 41.1 <50.[address] [facility] LABORATORY SERVICES PLT 233 141 - 377 K/[facility] LABORATORY SERVICES MPV 10.8 9.5 - 12.[address] [facility] LABORATORY SERVICES Neutrophils 71.4 % [facility] LABORATORY SERVICES Lymphocytes 13.4 % [facility] LABORATORY SERVICES Monocytes 9.4 % [facility] LABORATORY SERVICES Eosinophils 3.3 % [facility] LABORATORY SERVICES Basophils 0.4 % [facility] LABORATORY SERVICES Immature Grans 2.1 % [facility] LABORATORY SERVICES Absolute Neutrophils 5.15 2.20 - 8.85 [facility] LABORATORY SERVICES Absolute Lymphocytes 0.97 (L) 1.09 - 3.30 [facility] LABORATORY SERVICES Absolute Monocytes 0.68 0.10 - 0.80 [facility] LABORATORY SERVICES Absolute Eosinophils 0.24 0.03 - 0.61 [facility] LABORATORY SERVICES Absolute Basophils 0.03 0.01 - 0.11 [facility] LABORATORY SERVICES Absolute Immature 0.15 (H) 0.00 - 0.06 [facility] LABORATORY SERVICES Type of Differential: Auto [facility] LABORATORY SERVICES Specimen Blood - Venous blood (substance) Performing Organization Address City/State/ZIP Code Phon e Number [facility] LABORATORY [address] [place] [address] SERVICES (ABNORMAL) COMPLETE BLOOD COUNT AND DIFFERENTIAL (04/25/2021 6:16 EST) WBC 8.07 4.00 - 12.40 [facility] K/[facility] LABORATORY SERVICES RBC 3.24 (L) 3.86 - 5.04 [facility] M/[facility] LABORATORY SERVICES Hemoglobin 9.3 (L) 11.6 - 15.2 [facility] gm/dL LABORATORY SERVICES HCT 28.6 (L) 34.9 - 44.4 % [facility] LABORATORY SERVICES MCV 88 81 - [address] [facility] LABORATORY SERVICES MCH 28.7 26.7 - 33.[address] [facility] LABORATORY SERVICES MCHC 32.5 32.1 - 35.9 [facility] gm/dL LABORATORY SERVICES RDW-CV 13.1 <14.7 % [facility] LABORATORY SERVICES RDW-SD 42.5 <50.[address] [facility] LABORATORY SERVICES PLT 201 141 - 377 K/[facility] LABORATORY SERVICES MPV 10.5 9.5 - 12.[address] [facility] LABORATORY SERVICES Neutrophils 73.8 % [facility] LABORATORY SERVICES Lymphocytes 13.3 % [facility] LABORATORY SERVICES Monocytes 9.0 % [facility] LABORATORY SERVICES Eosinophils 2.4 % [facility] LABORATORY SERVICES Basophils 0.4 % [facility] LABORATORY SERVICES Immature Grans 1.1 % [facility] LABORATORY SERVICES Absolute Neutrophils 5.96 2.20 - 8.85 [facility] K/[facility] LABORATORY SERVICES Absolute Lymphocytes 1.07 (L) 1.09 - 3.30 [facility] K/[facility] LABORATORY SERVICES Absolute Monocytes 0.73 0.10 - 0.80 [facility] Absolute Eosinophils 0.19 0.03 - 0.61 [facility] Absolute Basophils 0.03 0.01 - 0.11 [facility] LABORATORY SERVICES Absolute Immature 0.09 (H) 0.00 - 0.06 [facility] Grans /[facility] LABORATORY SERVICES Type of Differential: Auto [facility] LABORATORY SERVICES Specimen Blood - Blood sample taken from central line (situation) Performing Organization Address City/State/ZIP Code Phon e Number [facility] LABORATORY [address] [place] [address] SERVICES (ABNORMAL) BASIC METABOLIC PANEL (BMP) (04/25/2021 6:15 EST) Pathologist Sig nature Sodium 139 136 - 145 mmol/L [facility] LABORATORY SERVICES Potassium 3.9 3.5 - 5.0 mmol/L [facility] LABORATORY SERVICES Chloride 103 96 - 110 mmol/L [facility] LABORATORY SERVICES CO2 Total 30 22 - 32 mmol/L [facility] LABORATORY SERVICES Anion Gap 6 (L) 8 - 16 [facility] LABORATORY SERVICES Glucose 103 (H) 70 - 100 mg/dL [facility] LABORATORY SERVICES Calcium 8.0 (L) 8.5 - 10.5 mg/dL [facility] LABORATORY SERVICES BUN 12 10 - 26 mg/dL [facility] LABORATORY SERVICES Creatinine 0.52 0.52 - 1.04 mg/dL [facility] LABORATORY SERVICES eGFR 122 >60 mL/min/1.73m2 [facility] LABORATORY SERVICES Specimen Blood - Venous blood (substance) Performing Organization Address City/State/ZIP Code Phon e Number [facility]ORATORY [address] [place] [address] SERVICES (ABNORMAL) COMPLETE BLOOD COUNT AND DIFFERENTIAL (04/24/2021 6:14 EST) WBC 12.01 4.00 - 12.40 [facility] LABORATORY SERVICES RBC 3.30 (L) 3.86 - 5.04 [facility] LABORATORY SERVICES Hemoglobin 9.3 (L) 11.6 - 15.2 [facility] gm/dL LABORATORY SERVICES HCT 28.7 (L) 34.9 - 44.4 % [facility] LABORATORY SERVICES MCV 87 81 - [address] [facility] LABORATORY SERVICES MCH 28.2 26.7 - 33.[address] [facility] LABORATORY SERVICES MCHC 32.4 32.1 - 35.9 [facility] gm/dL LABORATORY SERVICES RDW-CV 13.1 <14.7 % [facility] LABORATORY SERVICES RDW-SD 41.6 <50.[address] [facility] LABORATORY SERVICES PLT 191 141 - 377 K/[facility] LABORATORY SERVICES MPV 10.9 9.5 - 12.[address] [facility] LABORATORY SERVICES Neutrophils 83.5 % [facility] LABORATORY SERVICES Lymphocytes 7.7 % [facility] LAB[facility]ATORY SERVICES Monocytes 6.7 % [facility] LABORATORY SERVICES Eosinophils 1.1 % [facility]ATORY SERVICES Basophils 0.2 % [facility] LAB[facility]ATORY SERVICES Immature Grans 0.8 % [facility] LABORATORY SERVICES Absolute Neutrophils 10.02 (H) 2.20 - 8.85 [facility] LABORATORY SERVICES Absolute Lymphocytes 0.93 (L) 1.09 - 3.30 [facility] LABORATORY SERVICES Absolute Monocytes 0.80 0.10 - 0.80 [facility] LABORATORY SERVICES Absolute Eosinophils 0.13 0.03 - 0.61 [facility] LABORATORY SERVICES Absolute Basophils 0.03 0.01 - 0.11 [facility] LABORATORY SERVICES Absolute Immature 0.10 (H) 0.00 - 0.06 [facility] Grans /[facility] LABORATORY SERVICES Type of Differential: Auto [facility] LABORATORY SERVICES Specimen Blood - Blood sample taken from central line (situation) Performing Organization Address [facility] Phon e Number [facility]ORY [address] [place] [address] SERVICES (ABNORMAL) BASIC METABOLIC PANEL (BMP) (04/24/2021 6:13 EST) Pathologist Sig nature Sodium 138 136 - 145 mmol/L [facility] LABORATORY SERVICES Potassium 3.3 (L) 3.5 - 5.0 mmol/L [facility] LABORATORY SERVICES Chloride 104 96 - 110 mmol/L [facility] LABORATORY SERVICES CO2 Total 28 22 - 32 mmol/L [facility] LABORATORY SERVICES Anion Gap 6 (L) 8 - 16 [facility] LABORATORY SERVICES Glucose 142 (H) 70 - 100 mg/dL [facility] LABORATORY SERVICES Calcium 8.0 (L) 8.5 - 10.5 mg/dL [facility] LABORATORY SERVICES BUN 8 (L) 10 - 26 mg/dL [facility] LABORATORY SERVICES Creatinine 0.55 0.52 - 1.04 mg/dL [facility] LABORATORY SERVICES eGFR 119 >60 mL/min/1.73m2 [facility] LABORATORY SERVICES Specimen Blood - Venous blood (substance) Performing Organization Address [facility] Phon e Number [facility]ATORY [address] [place] [phone] SERVICES (ABNORMAL) VANCOMYCIN TROUGH (04/24/2021 0:27 EST) Vancomycin Trough 4.8 (L) 10.0 - 20.0 [facility] ??g/mL LABORATORY SERVICES Draw Type Central Line [facility] Draw LABORATORY SERVICES Specimen Blood - Venous blood (substance) Performing Organization Address [facility]/ZIP Code Phon e Number [facility]ORY [address] [place] [address] SERVICES (ABNORMAL) ANAEROBE CULTURE/SMEAR(INC. AEROBES), OTHER (04/23/2021 19:53 EST) Organism ID Few Streptococcus [facility] dysgalactiae LABORATORY SERVICES (A)Comment: Penicillin and ampicillin are drugs of choice for treatment of beta hemolytic streptococcal infections. Smear Many Neutrophils [facility] Present (A) LABORATORY SERVICES Smear Few Gram Positive [facility] LAB[facility] SERVICES Specimen Fluid - Soft tissue (navigational concep t) Performing Organization Address [facility] Phon e Number [facility] [address] [place] [address] SERVICES TEST, URINE (04/23/2021 18:31 EST) Test, NegativeComment: Negative [facility] Urine False negative LABORATORY results may occur in SERVICES women who are beyond 5-8 weeks gestation. Diagnosis of should be based on a correlation of test results with typical clinical signs and symptoms. Specimen Urine - Urine (substance) Performing Organization Address [facility] Phon e Number [facility] [address] [place] [address] SERVICES (ABNORMAL) COMPREHENSIVE METABOLIC PANEL (CMP) (04/23/2021 9:20 EST) Pathologist Sig nature Sodium 136 136 - 145 [facility] mmol/L LABORATORY SERVICES Potassium 3.0 (L) 3.5 - 5.0 [facility] mmol/L LABORATORY SERVICES Chloride 100 96 - 110 mmol/L [facility] SERVICES CO2 Total 25 22 - 32 mmol/L [facility] SERVICES Glucose 103 (H) 70 - 100 mg/dL [facility] SERVICES BUN 8 (L) 10 - 26 mg/dL [facility] SERVICES Creatinine 0.69 0.52 - 1.04 [facility] mg/dL LABORATORY SERVICES eGFR 111 >60 [facility] mL/min/1.73m2 LABORATORY SERVICES Total Protein 6.3 6.3 - 8.2 g/dL [facility] SERVICES Albumin 3.2 (L) 3.4 - 4.9 g/dL [facility] SERVICES Alkaline Phosphatase 114 38 - 126 U/L [facility] SERVICES AST 24 15 - 46 U/L [facility] SERVICES ALT 27 <35 U/L [facility] SERVICES Bilirubin, Total <0.5 <1.4 mg/dL [facility] SERVICES Calcium 8.4 (L) 8.5 - 10.5 [facility] mg/dL LABORATORY SERVICES Albumin/Globulin 1.0 1.0 - 2.5 [facility] Ratio LABORATORY SERVICES Anion Gap 11 8 - 16 [facility] SERVICES Specimen Blood - Venous blood (substance) Performing Organization Address City/State/ZIP Code Phon e Number [facility] [address] [place] [address] SERVICES MAGNESIUM (04/23/2021 6:50 EST) Pathologist Sig nature Magnesium 1.8 1.7 - 2.8 mg/dL [facility] SERVICES Specimen Blood - Venous blood (substance) Performing Organization Address City/State/ZIP Code Phon e Number [facility] [address] [place] [address] SERVICES (ABNORMAL) BASIC METABOLIC PANEL (BMP) (04/23/2021 6:50 EST) Pathologist Sig nature Sodium 136 136 - 145 mmol/L [facility] SERVICES Potassium 2.9 (LL) 3.5 - 5.0 mmol/L [facility] SERVICES Chloride 102 96 - 110 mmol/L [facility] SERVICES CO2 Total 27 22 - 32 mmol/L [facility] SERVICES Anion Gap 7 (L) 8 - 16 [facility] SERVICES Glucose 119 (H) 70 - 100 mg/dL [facility] SERVICES Calcium 8.7 8.5 - 10.5 mg/dL [facility] SERVICES BUN 7 (L) 10 - 26 mg/dL [facility] SERVICES Creatinine 0.67 0.52 - 1.04 mg/dL [facility] SERVICES eGFR 112 >60 mL/min/1.73m2 [facility] SERVICES Specimen Blood - Venous blood (substance) Performing Organization Address City/State/ZIP Code Phon e Number [facility] [address] [place] [address] SERVICES (ABNORMAL) COMPLETE BLOOD COUNT AND DIFFERENTIAL (04/23/2021 6:50 EST) WBC 16.72 (H) 4.00 - 12.40 [facility] LABORATORY SERVICES RBC 3.43 (L) 3.86 - 5.04 [facility] LABORATORY SERVICES Hemoglobin 9.9 (L) 11.6 - 15.2 [facility] gm/dL LABORATORY SERVICES HCT 30.1 (L) 34.9 - 44.4 % [facility] SERVICES MCV 88 81 - [address] [facility] SERVICES MCH 28.9 26.7 - 33.[address] [facility] SERVICES MCHC 32.9 32.1 - 35.9 [facility] gm/dL LABORATORY SERVICES RDW-CV 13.2 <14.7 % [facility] SERVICES RDW-SD 42.3 <50.[address] [facility] SERVICES PLT 171 141 - 377 /[facility] LABORATORY SERVICES MPV 11.6 9.5 - 12.[address] [facility] SERVICES Neutrophils 86.3 % [facility] SERVICES Lymphocytes 5.1 % [facility] SERVICES Monocytes 6.5 % [facility] SERVICES Eosinophils 0.5 % [facility] SERVICES Basophils 0.2 % [facility] SERVICES Immature Grans 1.4 % [facility] SERVICES Absolute Neutrophils 14.42 (H) 2.20 - 8.85 [facility] LABORATORY SERVICES Absolute Lymphocytes 0.86 (L) 1.09 - 3.30 [facility] LABORATORY SERVICES Absolute Monocytes 1.09 (H) 0.10 - 0.80 [facility] LABORATORY SERVICES Absolute Eosinophils 0.09 0.03 - 0.61 [facility] LABORATORY SERVICES Absolute Basophils 0.03 0.01 - 0.11 [facility] LABORATORY SERVICES Absolute Immature 0.23 (H) 0.00 - 0.06 [facility] LABORATORY SERVICES Type of Differential: Auto [facility] SERVICES Specimen Blood - Blood sample taken from central line (situation) Performing Organization Address [facility] Phon e Number [facility] [address] [place] [address] SERVICES COVID-19 TEST [facility] PCR (04/23/2021 2:53 EST) Specimen Swab - Entire nasopharynx (body structur e) Performing Organization Address [facility] Phon e Number [facility] [address] [place] [address] SERVICES COVID-19 TESTING (04/23/2021 2:53 EST) COVID-19 rt-PCR Negative Negative [facility] Result Comment: [facility] This test has not been FDA [...] and epidemiological informatio n. Performed on the [employer] GeneXpert Instrument Performing Lab GeneXpert [facility] Lab [facility] SERVICES Specimen Swab - Entire nasopharynx (body structur e) Performing Organization Address [facility] Phon e Number [facility] [address] [place] [address] SERVICES CK (04/23/2021 1:57 EST) Pathologist Sig nature CK 102 30 - 135 U/L [facility] Y SERVICES Specimen Blood - Venous blood (substance) Performing Organization Address [facility] Phon e Number [facility] [address] [place] [address] SERVICES XR WRIST RIGHT 3 OR MORE VIEWS (04/22/2021 18:58 EST) Anatomical Region Laterality Modality Upper Extremities Right Computed Radiography Specimen Impressions [facility] - 04/22/2021 19:38 EST Diffuse soft tissue swelling of the distal right forearm, wrist, and hand. I have personally reviewed the images an d the above interpretation and agree with the findings. Narrative [facility] - 04/22/2021 19:38 EST XR [...] Organization Address City/State/ZIP Code Phon e Number [facility] [place] XR FOOT LEFT 3 OR MORE VIEWS (04/22/2021 18:57 EST) Anatomical Region Laterality Modality Lower Extremities Left Computed Radiography Specimen Impressions [facility] - 04/22/2021 19:51 EST [...] interpretation and agree with the findings. Narrative [facility] - 04/22/2021 19:51 EST XR FOOT LEFT [...] Organization Address City/State/ZIP Code Phon e Number [facility] XR FOREARM RIGHT 2 VIEWS (04/22/2021 18:56 EST) Anatomical Region Laterality Modality Upper Extremities Right Computed Radiography Specimen Impressions [facility] - 04/22/2021 19:38 EST Diffuse soft tissue swelling of the distal right forearm, wrist, and hand. I have personally reviewed the images an d the above interpretation and agree with the findings. Narrative [facility] - 04/22/2021 19:38 EST XR [...] Organization Address City/State/ZIP Code Phon e Number [facility] XR HAND RIGHT 3 OR MORE VIEWS (04/22/2021 18:55 EST) Anatomical Region Laterality Modality Upper Extremities Right Computed Radiography Specimen Impressions [facility] - 04/22/2021 19:38 EST Diffuse soft tissue swelling of the distal right forearm, wrist, and hand. I have personally reviewed the images an d the above interpretation and agree with the findings. Narrative [facility] - 04/22/2021 19:38 EST XR [...] Organization Address City/State/ZIP Code Phon e Number [facility] LACTIC ACID (04/22/2021 16:39 EST) Pathologist Sig nature Lactic Acid 0.6 <=2.0 mmol/L [facility] Y SERVICES Specimen Blood - Venous blood (substance) Performing Organization Address City/State/ZIP Code Phon e Number [facility] [address] [place] [address] SERVICES (ABNORMAL) COMPLETE BLOOD COUNT AND DIFFERENTIAL (04/22/2021 16:39 EST) WBC 14.45 (H) 4.00 - 12.40 [facility] LABORATORY SERVICES RBC 3.56 (L) 3.86 - 5.04 [facility] M/[facility] LABORATORY SERVICES Hemoglobin 9.9 (L) 11.6 - 15.2 [facility] gm/dL LABORATORY SERVICES HCT 32.0 (L) 34.9 - 44.4 % [facility] SERVICES MCV 90 81 - [address] [facility] SERVICES MCH 27.8 26.7 - 33.[address] [facility] SERVICES MCHC 30.9 (L) 32.1 - 35.9 [facility] gm/dL LABORATORY SERVICES RDW-CV 13.0 <14.7 % [facility] SERVICES RDW-SD 42.8 <50.[address] [facility] SERVICES PLT 135 (L) 141 - 377 K/m [facility] SERVICES MPV 11.4 9.5 - 12.[address] [facility] SERVICES Neutrophils 86.0 % [facility] SERVICES Lymphocytes 5.2 % [facility] SERVICES Monocytes 7.4 % [facility] SERVICES Eosinophils 0.5 % [facility] SERVICES Basophils 0.1 % [facility] SERVICES Immature Grans 0.8 % [facility] SERVICES Absolute Neutrophils 12.43 (H) 2.20 - 8.85 [facility] LABORATORY SERVICES Absolute Lymphocytes 0.75 (L) 1.09 - 3.30 [facility] LABORATORY SERVICES Absolute Monocytes 1.07 (H) 0.10 - 0.80 [facility] LABORATORY SERVICES Absolute Eosinophils 0.07 0.03 - 0.61 [facility] LABORATORY SERVICES Absolute Basophils 0.02 0.01 - 0.11 [facility] LABORATORY SERVICES Absolute Immature 0.11 (H) 0.00 - 0.06 [facility] LABORATORY SERVICES Type of Differential: Auto [facility] SERVICES Specimen Blood - Venous blood (substance) Performing Organization Address City/[facility]/ZIP Code Phon e Number [facility] [address] [place] [address] SERVICES (ABNORMAL) BASIC METABOLIC PANEL (BMP) (04/22/2021 16:39 EST) Pathologist Sig nature Sodium 141 136 - 145 mmol/L [facility] SERVICES Potassium 3.0 (L) 3.5 - 5.0 mmol/L [facility] SERVICES Chloride 105 96 - 110 mmol/L [facility] SERVICES CO2 Total 24 22 - 32 mmol/L [facility] SERVICES Anion Gap 12 8 - 16 [facility] SERVICES Glucose 89 70 - 100 mg/dL [facility] SERVICES Calcium 8.7 8.5 - 10.5 mg/dL [facility] SERVICES BUN 7 (L) 10 - 26 mg/dL [facility] SERVICES Creatinine 0.65 0.52 - 1.04 mg/dL [facility] SERVICES eGFR 113 >60 mL/min/1.73m2 [facility] SERVICES Specimen Blood - Venous blood (substance) Performing Organization Address City/[facility]/ZIP Code Phon e Number [facility] [address] [place] [address] OUTSIDE IMAGES MSK (04/22/2021 13:22 [...] pecified whether acute organ dysfunction present ([facility] ([facility]) Group C streptococcal infection Streptococcus infection in conditions cl assified elsewhere and of unspecified site, group C Abscess of arm, right Cellulitis and abscess of upper arm and forearm Skin ulcer of left great toe, unspecifie d ulcer stage ([facility] ([facility]) Leukopenia, unspecified type Open wound of left great toe, sequela Acute carpal tunnel syndrome, right documented in [...] Tablets sodium chloride 0.9 % irrigation Given 04/23/2021 19:41 EST 9,000 mL Other PRN, Starting on 04/23/21 at 1941, Until 04/23/21 at 2009, Routine, Intraprocedure tiZANidine (ZANAFLEX) tablet 8 mg [...] 2002 (Given - Provider: Cindy James LPN) 814 (Given - Provider: Karly Castorena RN)0828 (MAR Hold - Provider: Automatic Transfer Provider Hn [...] Anyi Orellana RN)0557 (Given - Provider: Anyi Orellana, JARRED)1241 (Not Given - Provider: Karly Castorena RN [...] 3 Film 09 (Given - Provider: Karly Castorena, JARRED) 08 (Given - Provider: Karly Castorena, JARRED)08 (JUN Hold - Provider: Automatic Transfer Provider [...] g, intravenous, Administer over 10 Min utes, MANAGER STATISTICAL PROGRAMMING TO O.R., 1 dose, First dose on Sun05/03/21 at 0700, Routine cefTRIAXone (ROCEPHIN) 2,000 mg in sodiu m chloride (NS MBP) 50 mL IVPB (CANCELED) 2320 (Given - Provider: Cindy James LPN) 0828 ([facility] Hold - Provider: Automatic Transfer Provider [...] nued ferrous gluconate (FERGON) tablet 324 mg 173 (Given - Provider: Karly Castorena RN) 0815 [...] (G iven - Provider: Karly Castorena RN) 08 (Not Given - Provider: Karly sy RN [...] 05/02/2021 05/03/2021 05/04/2021 HYDROmorphone 1 mg/ml (DILAUDID) SOCIAL INSURANCE ANALYST syringe, 30 ml (C ANCELED) 932 (New Bag - Provider: Karly Castorena RN)2156 (Rate Documented - Provider: Cindy James LPN) 2037 (New Bag - Provider: Monik Bryant RN) intravenous, CONTINUOUS, Starting on Sun04/27/21 at 1145, Until Sun05/04/21 at 0815, Routine, SOCIAL INSURANCE ANALYST Dose (mg): 0.4, Lockout Interval (minutes): 10, [...] RN)161 (Given - Provider: Karly Castorena RN) 25 [...] 1 05/03/2021 lactated ringers (LR) infusion 5 05/03/202106/24/2020 lidocaine 20 mg/mL (2 %) injection 10 mL 1 022 naloxone (NARCAN) injection 0.2 mg 4 05/03/2021 04/23/2021 acetaminophen (TYLENOL) tablet 1,000 mg 1 01/03/20 22 ceFAZolin (ANCEF) syringe 2 g 2 05/02/2021 ferrous gluconate (FERGON) tablet 324 mg 1 tiZANidine (ZANAFLEX) tablet 8 mg 1 05/01/2021 diphenhydrAMINE (BENADRYL) capsule 25 mg 3 022 fentaNYL citrate (PF) injection 25-50 mcg 3 202104/23/2021 HYDROmorphone (PF) (DILAUDID) 0.5 mg/0.5 3 022 04/23/2021 mL syringe 0.3-0.5 mg metoclopramide (REGLAN) injection 10 mg 3 04/30/19 22 04/23/2021 ondansetron (PF) (ZOFRAN) injection 4 mg 2 022 04/23/2021 sodium chloride 0.9 % irrigation 2 04/30/2021 04/27/2021 alteplase (CATHFLO ACTIVASE) injection 2 1 021 [...] syringe 2 mg HYDROmorphone 1 mg/ml (DILAUDID) SOCIAL INSURANCE ANALYST 2 04/27/2021 04/23/2021 syringe, 30 ml ibuprofen [...] Ordered Date CASE REQUEST OPERATING ROOM 3 04/29/2021 1208/2020 documented in this encounter Care Teams Jr. Systems Administrator Relationship Specialty Start Date End Date Ratna Olivas MD PCP - General 03/05/[address] [place] [phone] documented as of this encounter
--- OUTSIDE RECORDS SUMMARY | 2022-02-03 16:02 | XMS_ITS | Encounter Summary ---
:1980 Author Organization [facility] Address [address] [place] [address] Care Team Providers Name Role Phone Ratna Olivas MD Primary Care Provider Encounter Details Date Type Department Care Team Description 04/23/2021 Hospital Encounter [facility] Center Secondary Reads [place] Social [...] Diagnosis Comme nts CT OUTSIDE IMAGES Routine 04/22/2021 13:22 Result s for this MSK EST procedure are i n the results section. documented in this encounter Results CT OUTSIDE IMAGES MSK (04/22/2021 13:22 EST) Specimen Narrative 04/22/2021 13:22 EST This is a non-reportable exam. documented in this encounter Visit Diagnoses Not on filedocumented in this encounter Care Teams Coke Burner Relationship Specialty Start Date End Date Ratna Olivas MD PCP - General 03/05/[address] [place] [phone] documented as of this encounter
--- OUTSIDE RECORDS SUMMARY | 2022-02-03 16:02 | XMS_ITS | Encounter Summary ---
:1980 Author Organization [facility] Address [address] [place] [address] Care Team Providers Name Role Phone Ratna Olivas MD Primary Care Provider Reason for Visit Auth/Cert Specialty Diagnoses / Procedures Referred By Contact Refer red To Contact Diagnoses Right arm cellulitis Sepsis Referral ID Status Reason Start Date Expiration Date Visits Requ ested Visits Authorized [id number] 1 1 Encounter Details Date Type Department Care Team Description 04/26/2021 Anesthesia Event [facility] ANESTHES Leo Main MD [address] [facility] [address] [place], [place] [id number] [place] [phone] (Wo rk) Anesthesia Record Procedure Summary Procedure [...] by Evelyn Lamb, Left; Y; Full thickness technical mgr 01/04/22; 1031; Incision; 05/03/21 1031 by Sal [...] on filedocumented in this encounter Care Teams Dough Molder Relationship Specialty Start Date End Date Ratna Olivas MD PCP - General 03/05/[address] [place] [phone] documented as of this encounter
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
--- OUTSIDE RECORDS SUMMARY | 2022-02-03 16:02 | XMS_ITS | Encounter Summary ---
:1980 Author Organization [facility] Address [address] [place] [address] Care Team Providers Name Role Phone Ratna Olivas MD Primary Care Provider Encounter Details Date Type Department Care Team Description 05/25/2020 Travel Social History Tobacco Use Types Packs/Day [...] on filedocumented in this encounter Care Teams Training Intern Relationship Specialty Start Date End Date Ratna Olivas MD PCP - General 03/05/[address] [place] [phone] documented as of this encounter
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
--- OUTSIDE RECORDS SUMMARY | 2022-02-03 16:02 | XMS_ITS | Encounter Summary ---
:1980 Author Organization [facility] Address [address] [place] [address] Care Team Providers Name Role Phone Ratna Olivas MD Primary Care Provider Reason for Visit Auth/Cert Specialty Diagnoses / Procedures Referred By Contact Refer red To Contact Diagnoses Right arm cellulitis Sepsis Referral ID Status Reason Start Date Expiration Date Visits Requ ested Visits Authorized [id number] 1 1 Encounter Details Date Type Department Care Team Description 04/23/2021 Anesthesia Event [facility] ANESTHES Ruthie Parrish, DO 111 [facility] [address] [place] [address] (Wo rk) Anesthesia Record Procedure Summary Procedure [...] Evelyn Lamb, Left; Y; Full thickness senior engineering tech 05/03/21; 1031; Incision; 05/03/21 1031 by Sal [...] on filedocumented in this encounter Care Teams Human Resources Analyst Relationship Specialty Start Date End Date Ratna Olivas MD PCP - General 03/05/[address] [id number] documented as of this encounter
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
--- OUTSIDE RECORDS SUMMARY | 2022-02-03 16:02 | XMS_ITS | Encounter Summary ---
:1980 Author Organization [facility] Address [address] [place] [address] Care Team Providers Name Role Phone Ratna Olivas MD Primary Care Provider Encounter Details Date Type Department Care Team Description 07/06/2020 Lab Requisition [facility] [place] Lisa E ncountkerrie for other Pathology & REPAIR DEPARTMENT MANAGER general examination Laboratory Medicine [address] [facility] [address] [place], [place] [address] [facility] [phone] [place] [address] Social History Tobacco Use Types [...] Procedure Name Priority Date/Time Associated Comments Diagnosis PAP TEST Today 07/05/2020 10:15 Encounter for other Resu lts for this EST general examination procedur e are in the results section. HUMAN PAPILLOMAVIRUS Today 07/05/2020 10:15 Encounter for ot her Results for this (HPV) DETECTION-HIGH EST general examination procedure are in RISK TYPES the results section. documented in this encounter Results HUMAN PAPILLOMAVIRUS (HPV) DETECTION-HIGH RISK TYPES (07/05/2020 10:15 EST) Human Papillomavirus NegativeComment: No Negative [facility] (HPV) Detection-High E6 or E7 mRNA is CENTER LABORATOR Y Types detected from HPV SERVICES types 16,18,31,33,35,39,45 ,51,52,56,58,59,66, and 68 by aerospace quality engineer mediated amplification. Specimen Pap Test - Cervix and/or Endocervix Performing Organization Address City/State/ZIP Code Phon e Number [facility] [address] [place] [address] SERVICES PAP TEST (07/05/2020 10:15 EST) Specimens A. Cervix and/or [facility] Endocervix , ThinPrep CENTER Imaging System with LABORATORY Manual Evaluation SERVICES Specimen Adequacy Satisfactory for [facility] Evaluation - CENTER transformation zone LABORATORY component present SERVICES General Negative for [facility] Categorization intraepithelial CENTER lesion or malignancy LABORATORY SERVICES Attestation . [facility] Electronically CENTER signed by MIGUELINA Alonso CT(ASCP ) on SERVICES 07/15/2020 at 12 21 Clinical History See below [facility] SERVICES HPV The result for the Human Pap illomavirus (HPV) Detection-High Risk Types is Negative. No E6 or E7 mRNA is detected from HPV types 16,18,31,33,35,39,45,51,52,56,58,59,66, and 68 by aerospace quality engineer mediated [facility] amplification.Testing was pe rformed on specimen [id number] and was resulted on 07/15/2020 1219 EDT by DWAINE, LAB INSTRUMENT RESULTS IN [facility] TER LABORATORY SERVICES Performing Lab [facility] SERVICES Scanned Images [facility] SERVICES Specimen Pap Test - Cervix and/or Endocervix Performing Organization Address City/State/ZIP Code Phon e Number [facility] [address] [place] [address] SERVICES documented in this encounter Visit Diagnoses Diagnosis Encounter for other general examination documented in this encounter Care Teams Saw Cleaner Relationship Specialty Start Date End Date Ratna Olivas MD PCP - General 03/05/[address] [place] [phone] documented as of this encounter
--- OUTSIDE RECORDS SUMMARY | 2022-02-03 16:02 | XMS_ITS | Encounter Summary ---
:1980 Author Organization [facility] Address [address] [place] [address] Care Team Providers Name Role Phone Ratna Olivas MD Primary Care Provider Encounter Details Date Type Department Care Team Description 05/20/2020 Results Only [facility] - [facility] [place] [place] Alpa Rodriguez NP Orthopedics & Sport [address] [facility] [address] [place] [address] [place] [address] [phone] Social History Tobacco Use Types Packs/Day Years [...] been in contact with No / Unsure 05/11/2020 16:30 EST someone who was confirmed or suspected [...] Procedure Name Priority Date/Time Associated Comments Diagnosis COMPLETE BLOOD COUNT Routine 05/20/2020 6:15 Resu lts for this WITH DIFFERENTIAL EST procedure are in (AUTO) the results section. BASIC METABOLIC PANEL Routine 05/20/2020 6:15 Res ults for this (BMP) EST procedure are i n the results section. documented in this encounter Results (ABNORMAL) COMPLETE BLOOD COUNT WITH DIFFERENTIAL (AUTO) (05/20/2020 6:15 EST) Pathologist Sig nature ABSOLUTE NEUTROPHIL 3.4 2.2 - 8.85 [facility] COUN - [facility] 10e3/uL [facility] BASO # - [facility] 0.03 0.01 - 0.11 [facility] 10e/uL [facility] BASO % - [facility] 1 0 - 2 % [facility] EOS # - [facility] 0.12 0.03 - 0.61 [facility] 10e3/ul [facility] EOS % - [facility] 2 0 - 5 % [facility] GRAN % - [facility] 69.3 40 - 80 % [facility] HEMATOCRIT - [facility] 29.3 (L) 34.9 - 44.4 % [facility] HEMOGLOBIN - [facility] 9.0 (L) 11.6 - 15.2 [facility] g/dl [facility] IG# - [facility] 0.02 0 - 0.7 10e3/uL [facility] IG% - [facility] 0.4 0 - 0.9 % [facility] LYMPH # - [facility] 0.9 (L) 1.09 - 3.3 [facility] 10e3/ul [facility] LYMPH% - [facility] 18.6 (L) 20 - 40 % [facility] MEAN CORPUSCULAR HGB 27.4 26.7 - 33.3 pg [facility] ME D [facility] CENTER LAB MEAN CORPUSCULAR HGB 30.7 (L) 32.1 - 35.9 [facility] CONC [facility] g/dL CENTER LAB MEAN CELL VOLUME - 89.3 81 - 98 fl [facility] LAB MONO # - [facility] [place] [place] 0.4 0.1 - 0.8 [facility] 10e3/uL [facility]ENTER LAB MONO% - [facility] [place] [place] 8.7 0 - 12 % [facility] LAB PLATELET COUNT 143 141 - 377 [facility] 10e3/ul [facility] LAB RED BLOOD COUNT - 3.28 (L) 3.86 - 5.04 [facility] 10e3/ul [facility] RED CELL DISTRI WIDTH 13.3 <14.7 % [facility] LAB WHITE BLOOD COUNT - 5.0 4.0 - 12.4 [facility] 10e3/ul [facility] Specimen Performing Organization Address [facility] Phon e Number [facility] [address] [place] [address] BASIC METABOLIC PANEL (BMP) (05/20/2020 6:15 EST) BUN - [facility] [place] [place] 14 10 - 26 mg/dL [facility] CALCIUM - [facility] [place] [place] 8.8 8.5 - 10.5 [facility] mg/dL [facility] Chloride 106 96 - 110 [facility] mmol/L [facility] CO2 Total 26 22 - 32 mEq/L [facility] CREATININE 0.85 0.52 - 1.04 [facility] mg/dL [facility] eGFR >60 [facility] Comment: [facility] Chronic renal impairment is defined as GFR <60 Multiply result by 1.210 for patients . eGFR calculated using the IDMS-traceable MDRD Study Equation. ??(effective 03/02/2014) Anion Gap 5 0 - 18 [facility] GLUCOSE - [facility] [place] [place] 90 70 - 100 mg/dL [facility] Potassium 4.6 3.5 - 5.0 [facility] mEq/L [facility] Sodium 137 136 - 145 [facility] mEq/L [facility] Specimen Performing Organization Address [facility] Phon e Number [facility] [address] [place] [address] documented in this encounter Visit Diagnoses Not on filedocumented in this encounter Care Teams Excelsior Machine Operator Relationship Specialty Start Date End Date Ratna Olivas MD PCP - General 03/05/[address] [place] [phone] documented as of this encounter
--- OUTSIDE RECORDS SUMMARY | 2022-02-03 16:03 | XMS_ITS | Encounter Summary ---
:1980 Author Organization [facility] Address [address] [place] [address] Care Team Providers Name Role Phone Unavailable Primary Care Provider Unavailable Encounter Details Date Type Department Care Team Description 09/26/2018 Historical Results [facility] - Karie Dinero [facility] Radiology Resul shira Allen MD [address] [facility] [address] [place] [address] [place] [address] Social History Tobacco Use Types Packs/Day [...] physical, mental, or emotional condition, do No 06/28/2017 you have difficulty doing errands alone such as visiting a doctor's office or shopping? (15 years old or older) Cognitive Status Response Date of Assessment Because of a physical, mental, or emotional condition, do No 06/28/2017 you have serious difficulty concentrating, remembering, or making decisions? (5 years old or older) documented as of this encounter Plan of Treatment Not on filedocumented as of this encounter Procedures Procedure Name Priority Date/Time Associated Diagnosis Comme nts NM BONE SCAN 3 09/26/2018 8:26 EDT Result s for this PHASE procedure are i n the results section. documented in this encounter Results NM BONE SCAN 3 PHASE (09/26/2018 8:26 EDT) Specimen Narrative [facility] RADIOLOGY - 09/26/2018 8:30 EDT ? EXAM: NUCLEAR MEDICINE/BONE SCAN 3 PHASE ??EX. D/ (0816) ? CLINICAL INFORMATION: ? Possible osteomelitis in left tib ia ? Exam: Whole-body bone scan. ? Indication: Possible osteomelitis in left tibia RIGHT BELOW THE KNEE ? AMPUTATION ? Technique: Limited lower extremit y multiphase imaging was obtained ? following the administration of22 .0 millicuries of technetium 99m ? MDP. ? Comparison: 07/04/2018. ? Findings: ? No abnormal blood pool or blood f low radiotracer activity is ? appreciated in the area of the le ft tibia. Also, no clear abnormal ? radiotracer is seen in the area o f the left foot on blood pool or ? blood flow imaging. However, on d elayed bone scan imaging, multifocal ? areas of abnormal radiotracer act ivity are seen, including in the ? area of the ankle, throughout the calcaneus extending into the area ? of the navicular cuboid and cunei form bones. Similar findings are ? also seen in the area of the 3rd ray phalangeal bones. ? The patient is status post right lung the interpretation. On bone ? scan phase imaging, increased tra cer activity is seen at the patella, ? and in the proximal shaft of the tibia. ? IMPRESSION: ? 1. No imaging evidence of osteomy elitis within the left tibia ? currently detected. ? 2. Multifocal areas of abnormal r adiotracer activity on bone scan ? phase imaging within the left hin dfoot, midfoot and forefoot as ? described above. This may reflect advanced degenerative arthropathy. ? 3. Increased tracer activity at t he right knee and right proximal ? tibia stump, likely reflecting ar thropathy and postoperative change. ? REPORT SIGNED IN OTHER VENDOR SYSTEM 09/26/2018 ?Reported B y: Yan Aguillon MD ? CC: Karie Dinero MD ? Transcribed Date/Time: 09/26/2018 (0830) ? Criminal Research Specialist: ? Printed Date/Time: 01/15/2019 (17 12) ? PAGE 1 ? Haylee d Report ? Procedure Note Yan Aguillon MD - 03/04/2019 EXAM: NUCLEAR MEDICINE/BONE SCAN 3 PHAS E EX. D/ (0816) CLINICAL INFORMATION: Possible osteomelitis in left tibia Exam: Whole-body bone scan. Indication: Possible osteomelitis in le ft tibia RIGHT BELOW THE KNEE AMPUTATION Technique: Limited lower extremity mult iphase imaging was obtained following the administration of22.0 mil licuries of technetium 99m MDP. Comparison: 07/04/2018. Findings: No abnormal blood pool or blood flow ra diotracer activity is appreciated in the area of the left tib ia. Also, no clear abnormal radiotracer is seen in the area of the left foot on blood pool or blood flow imaging. However, on delayed bone scan imaging, multifocal areas of abnormal radiotracer activity are seen, including in the area of the ankle, throughout the calca neus extending into the area of the navicular cuboid and cuneiform b ones. Similar findings are also seen in the area of the 3rd ray ph alangeal bones. The patient is status post right lung t he interpretation. On bone scan phase imaging, increased tracer ac tivity is seen at the patella, and in the proximal shaft of the tibia. IMPRESSION: 1. No imaging evidence of osteomyelitis within the left tibia currently detected. 2. Multifocal areas of abnormal radiotr acer activity on bone scan phase imaging within the left hindfoot, midfoot and forefoot as described above. This may reflect advan dayana degenerative arthropathy. 3. Increased tracer activity at the rig ht knee and right proximal tibia stump, likely reflecting arthropa thy and postoperative change. REPORT SIGNED IN OTHER VENDOR SYSTEM 09/26/2018 Reported By: Yan Aguillon MD CC: Karie Dinero MD Transcribed Date/Time: 09/26/2018 (6630 ) Criminal Research Specialist: Printed Date/Time: 01/15/2019 (6587) PAGE 1 Signed Report Performing Organization Address City/State/ZIP Code Phon e Number [facility] RADIOLOGY documented in this encounter Visit Diagnoses Not on filedocumented in this encounter
--- OUTSIDE RECORDS SUMMARY | 2022-02-03 16:03 | XMS_ITS | Encounter Summary ---
:1980 Author Organization [facility] Address [address] [place] [address] Care Team Providers Name Role Phone Ratna Olivas MD Primary Care Provider Encounter Details Date Type Department Care Team Description 05/15/2018 Historical Results [facility] - Whitney Blount ra, Only [facility] Lab - Main [address] [place], [place] [address] [place] [phone] (Wo rk) Social History Tobacco Use Types Packs/Day Years Used Date Never Smoker Smokeless Tobacco: Never Used Alcohol Habits Answer Date Recorded How often [...] Associated Comments Diagnosis COMPLETE BLOOD COUNT Routine 05/15/2018 12:18 Res ults for this WITH DIFFERENTIAL EST procedure are in (AUTO) the results section. documented in this encounter Results (ABNORMAL) COMPLETE BLOOD COUNT WITH DIFFERENTIAL (AUTO) (05/15/2018 12:18 EST) Pathologist Sig nature ABSOLUTE NEUTROPHIL 4.3 2.2 - 8.85 [facility] COUN - [facility] 10e3/uL [facility] BASO # - [facility] 0.03 0.01 - 0.11 [facility] 10e/uL [facility] BASO % - [facility] 1 0 - 2 % [facility] EOS # - [facility] 0.21 0.03 - 0.61 [facility] 10e3/ul [facility] EOS % - [facility] 4 0 - 5 % [facility] GRAN % - [facility] 70.2 40 - 80 % [facility] HEMATOCRIT - [facility] 29.9 (L) 34.9 - 44.4 % [facility] HEMOGLOBIN - [facility] 8.9 (L) 11.6 - 15.2 [facility] g/dl [facility] IG# - [facility] 0.04 0 - 0.7 10e3/uL [facility] IG% - [facility] 0.7 0 - 0.9 % [facility] LYMPH # - [facility] 1.2 1.09 - 3.3 [facility] 10e3/ul [facility] LYMPH% - [facility] 19.7 (L) 20 - 40 % [facility] MEAN CORPUSCULAR HGB 24.3 (L) 26.7 - 33.3 pg [facility] ME D - [facility] CENTER LAB MEAN CORPUSCULAR HGB 29.8 (L) 32.1 - 35.9 [facility] MED CONC - [facility] g/dL [facility]ENTER LAB MEAN CELL VOLUME - 81.7 81 - 98 fl [facility] LAB MONO # - [facility] 0.3 0.1 - 0.8 [facility] 10e3/uL [facility] MONO% - [facility] 5.4 0 - 12 % [facility] LAB PLATELET COUNT 357 141 - 377 [facility] 10e3/ul CENTER LAB RED BLOOD COUNT - 3.66 (L) 3.86 - 5.04 [facility] 10e3/ul [facility] RED CELL DISTRI WIDTH 13.2 <14.7 % [facility] LAB WHITE BLOOD COUNT - 6.1 4.0 - 12.4 [facility] 10e3/ul [facility] Specimen Narrative [facility] - 019 13:11 EST Does PT Have a Latex Allergy? NO Performing Organization Address City/State/ZIP Code Phon e Number [facility] [address] [place] [address] [facility] documented in this encounter Visit Diagnoses Not on filedocumented in this encounter Care Teams Blasting Clay Miner Relationship Specialty Start Date End Date Ratna Olivas MD PCP - General 03/05/[address] [place] [phone] documented as of this encounter
--- OUTSIDE RECORDS SUMMARY | 2022-02-03 16:03 | XMS_ITS | Encounter Summary ---
:1980 Author Organization [facility] Address [address] [place] [address] Care Team Providers Name Role Phone Unavailable Primary Care Provider Unavailable Encounter Details Date Type Department Care Team Description 08/12/2018 Historical Results [facility] - Campos Stevens, Only [facility] Radiology DPM Results [address] [place] [address] [place], [place] [id number] [place] [address] [phone] (Wo rk) Social History Tobacco Use Types [...] Associated Comments Diagnosis COMPLETE BLOOD COUNT Routine 08/12/2018 14:48 Res ults for this WITH DIFFERENTIAL EDT procedure are in (AUTO) the results section. RBC MORPHOLOGY Routine 08/12/2018 14:48 Results f or this EDT procedure are i n the results section. C REACTIVE PROTEIN Routine 08/12/2018 14:48 Resul ts for this EDT procedure are i n the results section. XR TIBIA FIBULA RIGHT 08/12/2018 12:36 Re sults for this 2 VIEWS EDT procedure are i n the results section. documented in this encounter Results (ABNORMAL) C REACTIVE PROTEIN (08/12/2018 14:48 EDT) Pathologist Sig nature C-Reactive Protein 39.6 (H) <10.0 mg/L [facility] Specimen Narrative [facility] LAB - 019 16:00 EDT Does PT Have a Latex Allergy? NO Performing Organization Address City/[facility]/ZIP Code Phon e Number [facility] [address] [place] [address] LAB RBC MORPHOLOGY (08/12/2018 14:48 EDT) Pathologist Sig nature HYPOCHROMASIA - [facility] 1+ [facility] POLYCHROMASIA - CV RARE [facility] Specimen Narrative [facility] LAB - 019 16:18 EDT Does PT Have a Latex Allergy? NO Performing Organization Address City/State/ZIP Code Phon e Number [facility] [address] LAB (ABNORMAL) COMPLETE BLOOD COUNT WITH DIFFERENTIAL (AUTO) (08/12/2018 14:48 EDT) Pathologist Sig nature ABSOLUTE NEUTROPHIL 5.3 2.2 - 8.85 [facility] COUN - [facility] 10e3/uL [facility] BASO # - [facility] 0.05 0.01 - 0.11 [facility] 10e/uL [facility] BASO % - [facility] 1 0 - 2 % [facility] EOS # - [facility] 0.15 0.03 - 0.61 [facility] 10e3/ul [facility] EOS % - [facility] 2 0 - 5 % [facility] GRAN % - [facility] 72.9 40 - 80 % [facility] HEMATOCRIT - [facility] 31.2 (L) 34.9 - 44.4 % [facility] HEMOGLOBIN - [facility] 9.2 (L) 11.6 - 15.2 [facility] g/dl [facility]ENTER LAB IG# - [facility] 0.07 0 - 0.7 10e3/uL [facility] IG% - [facility] 1.0 (H) 0 - 0.9 % [facility] LYMPH # - [facility] 1.2 1.09 - 3.3 [facility] 10e3/ul [facility] LYMPH% - [facility] 16.2 (L) 20 - 40 % [facility] MEAN CORPUSCULAR HGB 23.7 (L) 26.7 - 33.3 pg [facility] ME D - [facility] CENTER LAB MEAN CORPUSCULAR HGB 29.5 (L) 32.1 - 35.9 [facility] CONC - [facility] g/dL CENTER LAB MEAN CELL VOLUME - 80.2 (L) 81 - 98 fl [facility] LAB MONO # - [facility] 0.5 0.1 - 0.8 [facility] 10e3/uL [facility] MONO% - [facility] 7.1 0 - 12 % [facility] PLATELET COUNT 310 141 - 377 [facility] 10e3/[facility] LAB RED BLOOD COUNT - 3.89 3.86 - 5.04 [facility] 10e3/ul [facility] RED CELL DISTRI WIDTH 15.7 <14.7 % [facility] LAB WHITE BLOOD COUNT - 7.2 4.0 - 12.4 [facility] 10e3/[facility] LAB Specimen Narrative [facility] LAB - 019 16:18 EDT Does PT Have a Latex Allergy? NO Performing Organization Address City/State/ZIP Code Phon e Number [facility] [address] [place] [address] [facility] XR TIBIA FIBULA RIGHT 2 VIEWS (08/12/2018 12:36 EDT) Specimen Narrative [facility] RADIOLOGY - 08/12/2018 12:39 EDT ? EXAM: RADIOLOGY/LOWER LEG RIGHT 2 VIEW ?EX. D/ (1228) ? CLINICAL INFORMATION: ? M86.161- ACUTE OSTEOMYELITIS OF R IGHT TIBIA ? LARGE DEEP ULCERATION RIGHT LEG ? INDICATION: M86.161- ACUTE OSTEOM YELITIS OF RIGHT TIBIA, LARGE DEEP ? ULCERATION RIGHT LEG ??CHANGE IN WOUND DEPTH. ? TECHNIQUE: Two-view right tibia/f ibula. ? COMPARISON: 05/22/2018. ? FINDINGS: Right leg ulcer formati on is again noted. No osseous ? destructive changes suggestive of myelitis are detected. There is no ? abnormal periosteal reaction. No fracture is identified. ? IMPRESSION: ? Right leg ulcer. No findings of o steomyelitis detected. ? REPORT SIGNED IN OTHER VENDOR SYSTEM 08/12/2018 ?Reported B y: Luke Storey MD ? CC: Jean Marie Stevens DPM ? Transcribed Date/Time: 08/12/2018 (1239) ? Secretary: ? Printed Date/Time: 01/15/2019 (17 12) ? PAGE 1 ? Haylee d Report ? Procedure Note Luke Storey E - 03/04/2019 EXAM: RADIOLOGY/LOWER LEG RIGHT 2 VIEW EX. D/ (1228) CLINICAL INFORMATION: M86.161- ACUTE OSTEOMYELITIS OF RIGHT T IBIA LARGE DEEP ULCERATION RIGHT LEG INDICATION: M86.161- ACUTE OSTEOMYELITI S OF RIGHT TIBIA, LARGE DEEP ULCERATION RIGHT LEG CHANGE IN WOUND DE PTH. TECHNIQUE: Two-view right tibia/fibula. COMPARISON: 05/22/2018. FINDINGS: Right leg ulcer formation is again noted. No osseous destructive changes suggestive of myeli tis are detected. There is no abnormal periosteal reaction. No fractu re is identified. IMPRESSION: Right leg ulcer. No findings of osteomy elitis detected. REPORT SIGNED IN OTHER VENDOR SYSTEM 08/12/2018 Reported By: Luke Storey MD CC: Jean Marie Stevens DPM Transcribed Date/Time: 08/12/2018 (6734 ) Secretary: Printed Date/Time: 01/15/2019 (5795) PAGE 1 Signed Report Performing Organization Address City/State/ZIP Code Phon e Number [facility] RADIOLOGY documented in this encounter Visit Diagnoses Not on filedocumented in this encounter
--- OUTSIDE RECORDS SUMMARY | 2022-02-03 16:03 | XMS_ITS | Encounter Summary ---
:1980 Author Organization [facility] Address [address] [place] [address] Care Team Providers Name Role Phone Unavailable Primary Care Provider Unavailable Reason for Visit Reason Comments Foreign Body in Skin left groin Encounter Details Date Type Department Care Team Description 05/28/2018 Office Visit [facility] Evelyn Inman Foreig n body (FB) in General Surgery - soft tissue (Primary [place] [address] Dx) [address] [facility] [address] [place] [phone] Social History Tobacco Use Types Packs/Day Years [...] Sign Reading Time Taken Comments Blood Pressure 108/69 05/28/2018 1400 EST Pulse 77 05/28/2018 1400 EST Temperature - - Respiratory Rate - - Oxygen Saturation - - Inhaled Oxygen Concentration - - Weight 54.4 kg (120 lb) 05/28/2018 1400 EST Height 165.1 cm (5' 5) 05/28/2018 1400 EST Body Mass Index 19.97 05/28/2018 1400 EST documented in this encounter Functional Status [...] or older) documented as of this encounter Progress Notes Evelyn Inman MD - 05/28/2018 1400 EST [facility] HISTORY AND PHYSICAL EXAMINATION Date of Service: 05/28/2018 PROBLEM: Chief Complaint Patient presents with ??? Foreign Body in Skin left groin SUBJECTIVE: Ms. 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 She is being followed by podiatry for leg ulceration and possible osteomyelitis. The patient presented to the emergency department on 05/16/2018 because she knew she had a retained injection needle. The PA attempted cutdown to retrieve the needle at the patient's injection site but was unable to find it. The patient's MRI was then canceled. The left groin is tender if palpated but she is not sure if that is because of the needle tip within the subcutaneous tissue or because of healing incision site. She does not think the area is infected. As far as she is aware, the needle tip has not worked its way out. PROBLEM LIST: Patient Active Problem List Diagnosis ??? Pseudoaneurysm of femoral artery (HCC-CMS) ??? Foreign body (FB) in soft tissue Past Medical History: Diagnosis Date ??? Bacteremia due to Staphylococcus aureus ??? Cocaine abuse (HCC-CMS) ??? Hepatitis C antibody positive in blood ??? Iron deficiency anemia ??? Moderate opioid use disorder (HCC-CMS) ??? Skin abscess Past Surgical History: Procedure Laterality Date ??? ABDOMINAL EXPLORATION SURGERY ??? ECTOPIC SURGERY ??? 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 Ramos, for infected pseudoaneurysm Family History Problem Relation Age of Onset ??? Diabetes Father ??? Diabetes Paternal Aunt ??? Diabetes Paternal Grandfather Social History Socioeconomic History ??? Marital status: Spouse name: None ??? Number of children: None ??? Years of education: None ??? Highest education level: None Social Needs ??? Financial resource strain: None ??? Food insecurity - worry: None ??? Food insecurity - inability: None ??? Transportation needs - medical: None ??? Transportation needs - non-medical: None Occupational History ??? None Tobacco Use ??? Smoking status: Never Smoker ??? Smokeless tobacco: Never Used Substance and Sexual Activity ??? Alcohol use: No Frequency: Never ??? Drug use: No ??? Sexual activity: None Other Topics Concern ??? None Social History Narrative ??? None Current Outpatient Medications: acetaminophen (TYLENOL) 500 mg tablet buprenorphine-naloxone (SUBOXONE) 12-3 mg film ibuprofen (MOTRIN) 200 mg tablet Multivitamins with Minerals tablet tablet norgestimate-ethinyl estradiol (TRI-SPRINTEC, 28, ORAL) No current facility-administered medications for this visit. ALLERGIES: No Known Allergies REVIEW OF SYSTEMS: A 10-point review of systems was conducted. Pertinent positives are listed in the HPI above and listed below. All other systems are negative. Review of Systems 05/28/2018 Constitutional Malaise/Fatigue;Weakness Psychiatric Depression;Substance abuse;Nervous/Anxious;Insomnia PHYSICAL EXAM: BP 108/69 Pulse 77 Ht 165.1 cm (65) Wt 54.4 kg (120 lb) BMI 19.97 kg/m?? General: thin, NAD HEENT: head normocephalic, atraumatic, oronasopharynx clear. Eyes: sclera non-icteric Heart: RRR, no M/R/G Lungs: ctab Skin: Left groin with scar at previous injection sites and healing incision site with erythematous skin edges and superficial shallow ulceration, no purulence expressed. Skin over bilateral hands appears erythematous and coarse Musculoskeletal: Walking with crutches, both hands clenched and unable to open, right lower st wrapped in gauze and surrounding skin is erythematous Psychiatric: A&Ox3, appropriate mood and affect ASSESSMENT: Encounter Diagnosis Name Primary? Foreign body (FB) in soft tissue Yes Ms. Odonnell is a 37-year-old woman with multiple medical issues including IV drug use, who has a hypodermic needle tip embedded in the subcutaneous tissues of the left groin. The area is not infected but the foreign body is preventing her from pursuing MRI to rule out osteomyelitis of the right lower extremity. PLAN: I explained that my approach would be to do similar incision and cut down to explore the subcutaneous tissues as the emergency department PA, but with the aid of a C-arm and x-ray. I offered to do it with local anesthetic only so that we could avoid an IV but she said that it was way too uncomfortablein the emergency department and she would like sedation. I warned her that we could go through this whole process and I still might not be able to find the needle tip. She is very anxious to have the needle tip removed so that she can get the MRI of her right lower extremity because her leg ulcerationhurts more and more and she cannot even put clothing over her leg because it hurts too much. In regards to sedation, she is an extremely difficult needle stick. She said that she can only get IVs in her neck. Her preference is to go to sleep with gas and have them put the IV in her neck when she is asleep. I told her that we did not need a general anesthesia for this procedure. We will warn the operating room that she will need extra time for IV placement in the preoperative area. I described the procedure in detail including potential risks and complications of infection, bleeding, inability to locate the object. She signed a written informed consent. Postoperative pain control with acetaminophenand ibuprofen and ice packs. The patient demonstrated understanding. There were no barriers to understanding. Evelyn Inman MD 05/28/2018 documented in this encounter Plan of Treatment Not on filedocumented as of this encounter Visit Diagnoses Diagnosis Foreign body (FB) in soft tissue - Prima ry Residual foreign body in soft tissue documented in this encounter Discontinued Medications Medication Sig Discontinue Reason Start Date End Date doxycycline (ADOXA) 100 Take 100 mg by Therapy completed 05/28/2018 mg tablet mouth 2 times daily. documented as of this encounter Historical Medications This list may reflect changes made after this encounter. Medication Sig Dispensed Refills Start Date End Date norgestimate-ethinyl Take by mouth. 0 03/12/2019 estradiol (TRI-SPRINTEC, 28, ORAL) ibuprofen (MOTRIN) 200 mg Take 400 mg by mouth 0 03/12/2019 tablet every 6 hours as needed for Pain. added in this encounter
--- OUTSIDE RECORDS SUMMARY | 2022-02-03 16:03 | XMS_ITS | Encounter Summary ---
:1980 Author Organization [facility] Address [address] [place] [address] Care Team Providers Name Role Phone Ratna Olivas MD Primary Care Provider Encounter Details Date Type Department Care Team Description 03/13/2019 Abstract [facility] Adult Ambulat lacey, Manufacturing Executive Primary Care - Yarely [address] [place] [address] Social History Tobacco Use Types Packs/Day Years [...] on filedocumented in this encounter Care Teams Ramp Service Agent Relationship Specialty Start Date End Date Ratna Olivas MD PCP - General 03/05/[address] [place] [phone] documented as of this encounter
--- OUTSIDE RECORDS SUMMARY | 2022-02-03 16:03 | XMS_ITS | Encounter Summary ---
:1980 Author Organization [facility] Address [address] [place] [address] Care Team Providers Name Role Phone Unavailable Primary Care Provider Unavailable Encounter Details Date Type Department Care Team Description 09/23/2018 Historical Results [facility] - Chepe Ayala [facility] Lab - Main Garland Watson MD [id number] [place] [address] [address] [place], [place] [address] (Wo rk) Social History Tobacco Use Types [...] Name Priority Date/Time Associated Diagnosis Comme nts BLOOD CULTURE - Routine 09/23/2018 12:23 Results for this [facility] EDT procedure are i n the results section. LACTIC ACID Routine 09/23/2018 12:23 Results for this EDT procedure are i n the results section. C REACTIVE PROTEIN Routine 09/23/2018 12:23 Resul ts for this EDT procedure are i n the results section. C REACTIVE PROTEIN Routine 09/23/2018 12:23 Resul ts for this EDT procedure are i n the results section. BASIC METABOLIC Routine 09/23/2018 12:23 Results for this PANEL (BMP) EDT procedure are i n the results section. documented in this encounter Results BLOOD CULTURE - [facility] (09/23/2018 12:23 EDT) Pathologist Sig nature BLOOD CULTURE - [facility] LAB BLOOD CULTURE - NO GROWTH AT 5 [facility] LAB Specimen Narrative [facility] - 019 7:35 EDT RESULTS DELAYED BECAUSE WE (PHLEBOTOMY AND IV THERAPY) CAN NOT GET BLOOD ON THIS LADY. WILL CONTACT DR AYALA FOR FURTHER INSTRUCTIONS ??ST Performing Organization Address City/[facility] Code Phon e Number [facility] [address] [place] [address] LAB (ABNORMAL) C REACTIVE PROTEIN (09/23/2018 12:23 EDT) Pathologist Sig nature C-Reactive Protein 23.2 (H) <10.0 mg/L [facility] Specimen Narrative [facility] - 019 12:54 EDT RESULTS DELAYED BECAUSE WE (PHLEBOTOMY AND IV THERAPY) CAN NOT GET BLOOD ON THIS LADY. WILL CONTACT DR AYALA FOR FURTHER INSTRUCTIONS ??ST Performing Organization Address City/[facility] Code Phon e Number [facility] [address] [place] [address] LAB (ABNORMAL) BASIC METABOLIC PANEL (BMP) (09/23/2018 12:23 EDT) BUN - [facility] 31 (H) 10 - 26 mg/dL [facility] CALCIUM - [facility] 8.9 8.5 - 10.5 [facility] mg/dL [facility] LAB Chloride 100 96 - 110 [facility] mmol/L [facility] CO2 Total 27 22 - 32 mEq/L [facility] CREATININE 0.91 0.52 - 1.04 [facility] mg/dL [facility] LAB eGFR >60 [facility] Comment: [facility] LAB Chronic renal impairment is defined as GFR <60 Multiply result by 1.210 for patients . eGFR calculated using the IDMS-traceable MDRD Study Equation. ??(effective 03/02/2014) Anion Gap 11 0 - 18 [facility] GLUCOSE - [facility] 106 (H) 70 - 100 mg/dL [facility] Potassium 4.5 3.5 - 5.0 [facility] mEq/L [facility] Sodium 138 136 - 145 [facility] mEq/L [facility] LAB Specimen Narrative [facility] - 12:54 EDT RESULTS DELAYED BECAUSE WE (PHLEBOTOMY AND IV THERAPY) CAN NOT GET BLOOD ON THIS LADY. WILL CONTACT DR AYALA FOR FURTHER INSTRUCTIONS ??ST Performing Organization Address City/State/ZIP Code Phon e Number [facility] [address] LAB LACTIC ACID (09/23/2018 12:23 EDT) Pathologist Sig nature LACTIC ACID - [facility] 0.6 <2.0 mmol/L [facility] LAB Specimen Narrative [facility] - 12:50 EDT RESULTS DELAYED BECAUSE WE (PHLEBOTOMY AND IV THERAPY) CAN NOT GET BLOOD ON THIS LADY. WILL CONTACT DR AYALA FOR FURTHER INSTRUCTIONS ??ST Performing Organization Address City/State/ZIP Code Phon e Number [facility] [address] LAB (ABNORMAL) C REACTIVE PROTEIN (09/23/2018 12:23 EDT) Pathologist Sig nature SED RATE - [facility] 47 (H) 1 - 20 mm/hr [facility] LAB Specimen Narrative [facility] - 13:00 EDT RESULTS DELAYED BECAUSE WE (PHLEBOTOMY AND IV THERAPY) CAN NOT GET BLOOD ON THIS LADY. WILL CONTACT DR AYALA FOR FURTHER INSTRUCTIONS ??ST [facility] Organization Address City/State/ZIP Code Phon e Number [facility] [address] [place], [place] [id number] [place] [address] LAB documented in this encounter Visit Diagnoses Not on filedocumented in this encounter
--- OUTSIDE RECORDS SUMMARY | 2022-02-03 16:03 | XMS_ITS | Encounter Summary ---
:1980 Author Organization [facility] Address [address] [place] [address] Care Team Providers Name Role Phone Unavailable Primary Care Provider Unavailable Reason for Visit Reason Onset Date Comments Appointment Related 06/04/2018 Encounter Details Date Type Department Care Team Description 06/04/2018 Telephone [facility] Evelyn Inman MD Appointment Related General Surgery - [place] [address] [facility] [address] [place] [phone] (Wo rk) Social History Tobacco Use Types [...] this encounter Miscellaneous Notes Telephone Encounter - Anu Montalvo - 06/04/2018 1138 EST LMTCB to schedule CT Pelvis w/pt. I have asked pt to call back today and ask for Anu, or to call [facility] Radiology directly to schedule. documented in this encounter Plan of Treatment Not on filedocumented as of this encounter Visit Diagnoses Not on filedocumented in this encounter
--- OUTSIDE RECORDS SUMMARY | 2022-02-03 16:03 | XMS_ITS | Encounter Summary ---
:1980 Author Organization [facility] Address [address] [id number] Care Team Providers Name Role Phone Ratna Olivas MD Primary Care Provider Reason for Visit Reason Onset Date Comments Medication Adherence 04/15/2019 Encounter Details Date Type Department Care Team Description 04/15/2019 Telephone [facility] - Keren Mckeon , Medication Adherence [facility] Dermatology [address] [phone] [facility] [address] [place] [address] (Wo rk) Social History Tobacco Use Types [...] this encounter Miscellaneous Notes Telephone Encounter - Remy Yamini - 04/18/2019 0848 EST Left message #2 asking to return call elephone Encounter - Yamini Alberto - 04/15/2019 0833 EST Left message for patient to call back office, verifying if pt picked up recent rx for prednisone documented in this encounter Plan of Treatment Not on filedocumented as of this encounter Visit Diagnoses Not on filedocumented in this encounter Care Teams Elementary Teacher Relationship Specialty Start Date End Date Ratna Olivas MD PCP - General 03/05/[address] [place] [phone] documented as of this encounter
--- OUTSIDE RECORDS SUMMARY | 2022-02-03 16:03 | XMS_ITS | Encounter Summary ---
:1980 Author Organization [facility] Address [address] [place] [address] Care Team Providers Name Role Phone Unavailable Primary Care Provider Unavailable Encounter Details Date Type Department Care Team Description 09/15/2018 Historical Results [facility] Lab - [place] us Wally MD 130 [facility] 130 [place], [place] [address] [place] [address] [phone] Social History Tobacco Use Types Packs/Day Years [...] Associated Comments Diagnosis COMPLETE BLOOD COUNT Routine 09/15/2018 12:45 Res ults for this WITH DIFFERENTIAL EDT procedure are in (AUTO) the results section. VANCOMYCIN TROUGH Routine 09/15/2018 12:45 Result s for this EDT procedure are i n the results section. BASIC METABOLIC PANEL Routine 09/15/2018 12:45 Re sults for this (BMP) EDT procedure are i n the results section. documented in this encounter Results (ABNORMAL) VANCOMYCIN TROUGH (09/15/2018 12:45 EDT) Pathologist Sig nature Vancomycin Trough 8.7 (L) 10 - [address] [facility] [address] LAB Specimen Narrative [facility] - 019 13:15 EDT LABS WILL BE DRAWN BY IV THERAPY AT 1030 WITH VANCO DRAW-TB Performing Organization Address City/State/ZIP Code Phon e Number [facility] [address] LAB (ABNORMAL) BASIC METABOLIC PANEL (BMP) (09/15/2018 12:45 EDT) BUN - [facility] 17 10 - 26 mg/dL [facility] CALCIUM - [facility] 8.8 8.5 - 10.5 [facility] mg/dL [facility] LAB Chloride 103 96 - 110 [facility] mmol/L [facility] CO2 Total 28 22 - 32 mEq/L [facility] CREATININE 0.83 0.52 - 1.04 [facility] mg/dL [facility] LAB eGFR >60 [facility] Comment: [facility] LAB Chronic renal impairment is defined as GFR <60 Multiply result by 1.210 for patients . eGFR calculated using the IDMS-traceable MDRD Study Equation. ??(effective 03/02/2014) Anion Gap 7 0 - 18 [facility] GLUCOSE - [facility] 102 (H) 70 - 100 mg/dL [facility] Potassium 4.5 3.5 - 5.0 [facility] mEq/L [facility] Sodium 138 136 - 145 [facility] mEq/L [facility] Specimen Narrative [facility] - 019 13:15 EDT LABS WILL BE DRAWN BY IV THERAPY AT 1030 WITH VANCO DRAW-TB Performing Organization Address City/State/ZIP Code Phon e Number [facility] [address] [place] [address] [facility] LAB (ABNORMAL) COMPLETE BLOOD COUNT WITH DIFFERENTIAL (AUTO) (09/15/2018 12:45 EDT) Pathologist Sig nature ABSOLUTE NEUTROPHIL 4.3 2.2 - 8.85 [facility] COUN - [facility] 10e3/uL CENTER LAB BASO # - [facility] 0.03 0.01 - 0.11 [facility] 10e/uL [place] [facility] BASO % - [facility] 1 0 - 2 % [facility] EOS # - [facility] 0.18 0.03 - 0.61 [facility] 10e3/ul [place] [facility] EOS % - [facility] 3 0 - 5 % [facility] GRAN % - [facility] 74.1 40 - 80 % [facility] HEMATOCRIT - [facility] 29.3 (L) 34.9 - 44.4 % [facility] HEMOGLOBIN - [facility] 9.0 (L) 11.6 - 15.2 [facility] g/dl [place] [facility] IG# - [facility] 0.06 0 - 0.7 10e3/uL [facility] IG% - [facility] 1.0 (H) 0 - 0.9 % [facility] LYMPH # - [facility] 0.8 (L) 1.09 - 3.3 [facility] 10e3/ul [place] [facility] LYMPH% - [facility] 14.2 (L) 20 - 40 % [facility] MEAN CORPUSCULAR HGB 26.0 (L) 26.7 - 33.3 pg [facility] ME D - [facility] CENTER LAB MEAN CORPUSCULAR HGB 30.7 (L) 32.1 - 35.9 [facility] CONC - [facility] g/dL [place] [facility] MEAN CELL VOLUME - 84.7 81 - 98 fl [facility] MONO # - [facility] 0.4 0.1 - 0.8 [facility] 10e3/uL [place] [facility] MONO% - [facility] 7.1 0 - 12 % [facility] PLATELET COUNT 311 141 - 377 [facility] 10e3/ul CENTER LAB RED BLOOD COUNT - 3.46 (L) 3.86 - 5.04 [facility] 10e3/ul [place] [facility] RED CELL DISTRI WIDTH 17.6 <14.7 % [facility] WHITE BLOOD COUNT - 5.8 4.0 - 12.4 [facility] 10e3/ul [place] [facility] Specimen Performing Organization Address City/State/ZIP Code Phon e Number [facility] [address] [place], [place] [id number] [place] [address] LAB documented in this encounter Visit Diagnoses Not on filedocumented in this encounter
--- OUTSIDE RECORDS SUMMARY | 2022-02-03 16:03 | XMS_ITS | Encounter Summary ---
:1980 Author Organization [facility] Address [address] [place] [address] Care Team Providers Name Role Phone Ratna Olivas MD Primary Care Provider Encounter Details Date Type Department Care Team Description 05/11/2020 Travel Social History Tobacco Use Types Packs/Day [...] on filedocumented in this encounter Care Teams Laundry Route Driver Relationship Specialty Start Date End Date Ratna Olivas MD PCP - General 03/05/[address] [place] [phone] documented as of this encounter
--- OUTSIDE RECORDS SUMMARY | 2022-02-03 16:03 | XMS_ITS | Encounter Summary ---
:1980 Author Organization [facility] Address [address] [place] [address] Care Team Providers Name Role Phone Unavailable Primary Care Provider Unavailable Encounter Details Date Type Department Care Team Description 05/30/2018 Historical Results [facility] - Kana Inman MD Only [facility] Radiology Resul ts 130 [facility] [address] [facility] [address] [place] [address] [place], [place] [phone] Social History Tobacco Use Types Packs/Day Years [...]
--- OUTSIDE RECORDS SUMMARY | 2022-02-03 16:03 | XMS_ITS | Encounter Summary ---
:1980 Author Organization [facility] Address [address] [place] [address] Care Team Providers Name Role Phone Ratna Olivas MD Primary Care Provider Encounter Details Date Type Department Care Team Description 05/19/2020 Results Only [facility] [place] [facility] Karie Dinero [employer] [place] [facility] [address] [address] [address] [place] [phone] (Wo rk) Social History Tobacco Use Types [...] Name Priority Date/Time Associated Diagnosis Comme nts FUNGAL CULTURE - Routine 05/19/2020 14:46 Results for this OTHER [facility] - [place] [facility] EST procedure are in the results section. ANAEROBIC CULTURE - Routine 05/19/2020 14:45 Resu lts for this CV EST procedure are i n the results section. FUNGAL CULTURE - Routine 05/19/2020 14:42 Results for this OTHER [facility] - [place] [facility] EST procedure are in the results section. ANAEROBIC CULTURE - Routine 05/19/2020 14:41 Resu lts for this CV EST procedure are i n the results section. documented in this encounter Results FUNGAL CULTURE - OTHER SITES - [place] [facility] (05/19/2020 14:46 EST) FUNGUS ISOLATED? - NO FUNGI ISOLATED, [facility] FIRST READING [facility] FUNGUS ISOLATED? - NO FUNGI ISOLATED [facility] AT 4 WEEKS [facility] LAB Specimen Narrative [facility] - 021 12:08 EST COMMENTS: RIGHT LEG TISSUE #2 Does PT Have a Latex Allergy? NO Performing Organization Address City/State/ZIP Code Phon e Number [facility] [address] [place] [address] ANAEROBIC CULTURE - [place] [facility] (05/19/2020 14:45 EST) PEPTOSTREPTOCOCCUS PEPTOSTREPTOCOCCUS VERSA[place]ES SPECIES - [place] [facility] SPECIES [facility] QUANT [facility] [place] [facility] FEW [facility] Anaerobe Culture TISSUE SUBMITTED [facility] BACTERIA SEEN - [place] [facility] NO [facility] WBC FEW [facility] GRAM STAIN - [place] [facility] The mecA gene product was NOT detected in this coagulase CENTRAL positive Staph isolate. It is SUSCEPTIBLE to oxacillin , [facility] cephalosporins and other beta lactam antibiotics. CENTER LAB PSEUDOMONAS AERUGINOSA PSEUDOMONAS AERUGINOSA CENTRAL - [facility] QUANT - [place] [facility] RARE [facility] Specimen Leg Narrative [facility] - 021 10:56 EST COMMENTS: RIGHT LEG TISSUE #2 Does PT Have a Latex Allergy? NO Organism Antibiotic Method Susceptibility Peptostreptococcus Azithromycin GRAM POSITIVE Resistant species SUSCEPTIBILITY - [place] [facility] Peptostreptococcus Clindamycin GRAM POSITIVE <=0.25: Resis tant species SUSCEPTIBILITY - [place] [facility] Peptostreptococcus Cefpodoxime GRAM POSITIVE Susceptible species SUSCEPTIBILITY - [place] [facility] Peptostreptococcus Cefazolin GRAM POSITIVE Susceptible species SUSCEPTIBILITY - [place] [facility] Peptostreptococcus Erythromycin GRAM POSITIVE 4: Resistant species SUSCEPTIBILITY - [place] [facility] Peptostreptococcus Levofloxacin GRAM POSITIVE 4: Intermedia te species SUSCEPTIBILITY - [place] [facility] Peptostreptococcus Oxacillin GRAM POSITIVE <=0.25: Susce ptible species SUSCEPTIBILITY - [place] [facility] Peptostreptococcus Trimethoprim-Sulfam GRAM POSITIVE <=10: Concepcion ceptible species ethoxazole SUSCEPTIBILITY - [place] [facility] Peptostreptococcus Tetracycline GRAM POSITIVE <=1: Suscepti ble species SUSCEPTIBILITY - [place] [facility] Peptostreptococcus Vancomycin GRAM POSITIVE 1: Susceptibl e species SUSCEPTIBILITY - [place] [facility] Comment: Tetracycline susceptible Coa g positive staph is also susceptible to doxycycline a nd minocycline. Comment: RIGHT BELOW THE KNEE AMPUTATION REVISION Pseudomonas Ceftazidime GRAM NEGATIVE 4: Susceptible aeruginosa SUSCEPTIBILITY - [place] [facility] Pseudomonas Ciprofloxacin GRAM NEGATIVE <=0.25: Suscepti ble aeruginosa SUSCEPTIBILITY - [place] [facility] Pseudomonas Cefepime GRAM NEGATIVE 8: Susceptible aeruginosa SUSCEPTIBILITY - [place] [facility] Pseudomonas Gentamicin GRAM NEGATIVE 8: Intermediate aeruginosa SUSCEPTIBILITY - [place] [facility] Pseudomonas Imipenem GRAM NEGATIVE 2: Susceptible aeruginosa SUSCEPTIBILITY - [facility] Pseudomonas Levofloxacin GRAM NEGATIVE 1: Susceptible aeruginosa SUSCEPTIBILITY - [place] [facility] Pseudomonas Piperacillin GRAM NEGATIVE 8: Susceptible aeruginosa Tazobactam SUSCEPTIBILITY - [place] [facility] Pseudomonas Tobramycin GRAM NEGATIVE <=1: Susceptible aeruginosa SUSCEPTIBILITY - [place] [facility] Comment: RIGHT BELOW THE KNEE AMPUTATION REVISION Performing Organization Address City/State/ZIP Code Phon e Number [facility] [address] [phone] FUNGAL CULTURE - OTHER SITES - [place] [facility] (05/19/2020 14:42 EST) FUNGUS ISOLATED? - NO FUNGI ISOLATED, [facility] FIRST READING [facility] FUNGUS ISOLATED? - NO FUNGI ISOLATED [facility] AT 4 WEEKS [facility] Specimen Narrative [facility] - 021 12:08 EST COMMENTS: RIGHT LEG TISSUE #1 Does PT Have a Latex Allergy? NO Performing Organization Address City/[facility]/ZIP Code Phon e Number [facility] [address] [place] [address] ANAEROBIC CULTURE - [place] [facility] (05/19/2020 14:41 EST) PREVOTELLA SPECIES PREV [facility] QUANT - [facility] LAB Anaerobe Culture TISSUE SUBMITTED [facility] GRAM POSITIVE RARE [facility] WBC [facility] GRAM STAIN - [facility] COLONY MORPHOLOGY CONSISTENT WITH CULTURE M881 [facility] SUBMITTED ON 05/19/20- REFER TO THAT CULTURE FOR [facility] IDENTIFICATION AND SENSITIVITIES COMMENTS: RIGHT LEG TISSUE #1 Gram negative rods GNR [facility] QUANT - [place] [facility] FEW [facility] Specimen Leg Narrative [facility] - 021 9:51 EST COMMENTS: RIGHT LEG TISSUE #1 Does PT Have a Latex Allergy? NO Performing Organization Address City/[facility] Code Phon e Number [facility] [address] [place] [address] documented in this encounter Visit Diagnoses Not on filedocumented in this encounter Care Teams Window Glazier Relationship Specialty Start Date End Date Ratna Olivas MD PCP - General 03/05/[address] [place] [phone] documented as of this encounter
--- OUTSIDE RECORDS SUMMARY | 2022-02-03 16:03 | XMS_ITS | Encounter Summary ---
:1980 Author Organization [facility] Address [address] [place] [address] Care Team Providers Name Role Phone Unavailable Primary Care Provider Unavailable Encounter Details Date Type Department Care Team Description 08/26/2018 Historical Results [facility] - Tho [place], Radha [facility] Lab - [place] [employer]NER [address] [place] [address] [address], [address] [place] [address] Social History Tobacco Use Types Packs/Day [...] Name Priority Date/Time Associated Diagnosis Comme nts GC/CHLAMYDIA/TRICHO Routine 08/26/2018 9:36 EDT R esults for this MONAS PCR - [facility] procedure a re in the results section. documented in this encounter Results GC/CHLAMYDIA/TRICHOMONAS PCR - [facility] (08/26/2018 9:36 EDT) CHLAMYDIA PCR - [facility] NOT DETECTED [facility] GONORRHEA PCR - CV NOT DETECTED [facility] SOURCE CERVIX [facility] TRICHOMONAS NOT DETECTED [facility] VAGINALIS PCR Comment: [facility] Xpert TV assay performance has not been evaluated in women or in patients with a history of hysterectomy. Specimen Performing Organization Address City/State/ZIP Code Phon e Number [facility] [address] [place], [place] [phone] [place] [address] LAB documented in this encounter Visit Diagnoses Not on filedocumented in this encounter
--- OUTSIDE RECORDS SUMMARY | 2022-02-03 16:03 | XMS_ITS | Encounter Summary ---
:1980 Author Organization [facility] Address [address] [place] [address] Care Team Providers Name Role Phone Unavailable Primary Care Provider Unavailable Encounter Details Date Type Department Care Team Description 10/07/2018 Historical Results [facility] - Kadie Mcintosh, ALUMINUM BOAT ASSEMBLY SUPERVISOR Only [facility] [place] [address] [place] [phone] Social History Tobacco Use Types Packs/Day Years [...] Associated Comments Diagnosis COMPLETE BLOOD COUNT Routine 10/07/2018 13:54 Res ults for this WITH DIFFERENTIAL EDT procedure are in (AUTO) the results section. C REACTIVE PROTEIN Routine 10/07/2018 13:54 Resul ts for this EDT procedure are i n the results section. BASIC METABOLIC PANEL Routine 10/07/2018 13:54 Re sults for this (BMP) EDT procedure are i n the results section. documented in this encounter Results (ABNORMAL) C REACTIVE PROTEIN (10/07/2018 13:54 EDT) Pathologist Sig nature C-Reactive Protein 15.4 (H) <10.0 mg/L [facility] Specimen Narrative [facility] - 019 12:26 EDT AOT: 10/08/18 1208: CRP Performing Organization Address City/State/[facility] Code Phon e Number [facility] [address] LAB (ABNORMAL) BASIC METABOLIC PANEL (BMP) (10/07/2018 13:54 EDT) BUN - [facility] 23 10 - 26 mg/dL [facility] CALCIUM - [facility] 9.0 8.5 - 10.5 [facility] mg/dL [facility] Chloride 101 96 - 110 [facility] mmol/L [facility] CO2 Total 25 22 - 32 mEq/L [facility] CREATININE 0.68 0.52 - 1.04 [facility] mg/dL [facility] eGFR >60 [facility] Comment: [facility]ENTER LAB Chronic renal impairment is defined as GFR <60 Multiply result by 1.210 for patients . eGFR calculated using the IDMS-traceable MDRD Study Equation. ??(effective 03/02/2014) Anion Gap 12 0 - 18 [facility] GLUCOSE - [facility] 104 (H) 70 - 100 mg/dL [facility] Potassium 4.7 3.5 - 5.0 [facility] mEq/L [facility] Sodium 138 136 - 145 [facility] mEq/L [facility] Specimen Narrative [facility] - 019 12:26 EDT AOT: 10/08/18 1208: CRP Performing Organization Address City/State/ZIP Code Phon e Number [facility] [address] [place], [place] [id number] [place] [address] LAB (ABNORMAL) COMPLETE BLOOD COUNT WITH DIFFERENTIAL (AUTO) (10/07/2018 13:54 EDT) Pathologist Sig nature ABSOLUTE NEUTROPHIL 2.7 2.2 - 8.85 [facility] COUN - [facility] 10e3/uL [facility] BASO # - [facility] 0.03 0.01 - 0.11 [facility] 10e/uL [facility] BASO % - [facility] 1 0 - 2 % [facility] EOS # - [facility] 0.20 0.03 - 0.61 [facility] 10e3/ul [facility] EOS % - [facility] 5 0 - 5 % [facility] GRAN % - [facility] 64.6 40 - 80 % [facility] HEMATOCRIT - [facility] 27.3 (L) 34.9 - 44.4 % [facility] HEMOGLOBIN - [facility] 8.1 (L) 11.6 - 15.2 [facility] g/dl [facility] IG# - [facility] 0.03 0 - 0.7 10e3/uL [facility] IG% - [facility] 0.7 0 - 0.9 % [facility] LYMPH # - [facility] 0.8 (L) 1.09 - 3.3 [facility] 10e3/ul [facility] LYMPH% - [facility] 18.2 (L) 20 - 40 % [facility] MEAN CORPUSCULAR HGB 25.7 (L) 26.7 - 33.3 pg [facility] ME D - [facility] CENTER LAB MEAN CORPUSCULAR HGB 29.7 (L) 32.1 - 35.9 [facility] CONC - [facility] g/dL [facility]ENTER LAB MEAN CELL VOLUME - 86.7 81 - 98 fl [facility] MONO # - [facility] 0.5 0.1 - 0.8 [facility] 10e3/uL [facility] MONO% - [facility] 11.0 0 - 12 % [facility] PLATELET COUNT 300 141 - 377 [facility] 10e3/ul CENTER LAB RED BLOOD COUNT - 3.15 (L) 3.86 - 5.04 [facility] 10e3/ul [facility] RED CELL DISTRI WIDTH 15.6 <14.7 % [facility] WHITE BLOOD COUNT - 4.2 4.0 - 12.4 [facility] 10e3/ul [facility] Specimen Performing Organization Address City/State/ZIP Code Phon e Number [facility] [address] [place], [place] [phone] [place] [address] LAB documented in this encounter Visit Diagnoses Not on filedocumented in this encounter
--- OUTSIDE RECORDS SUMMARY | 2022-02-03 16:03 | XMS_ITS | Encounter Summary ---
:1980 Author Organization [facility] Address [address] [place] [address] Care Team Providers Name Role Phone Ratna Olivas MD Primary Care Provider Encounter Details Date Type Department Care Team Description 05/15/2018 Historical Results [facility] - Whitney Blount ra, Only [facility] - Main [address] [place], [place] [id number] [place] [id number] (Wo rk) Social History Tobacco Use Types [...] Name Priority Date/Time Associated Diagnosis Comme nts C REACTIVE PROTEIN Routine 05/15/2018 12:18 Resul ts for this EST procedure are i n the results section. C REACTIVE PROTEIN Routine 05/15/2018 12:18 Resul ts for this EST procedure are i n the results section. BASIC METABOLIC Routine 05/15/2018 12:18 Results for this PANEL (BMP) EST procedure are i n the results section. documented in this encounter Results (ABNORMAL) C REACTIVE PROTEIN (05/15/2018 12:18 EST) Pathologist Sig nature C-Reactive Protein 20.1 (H) <10.0 mg/L [facility] Specimen Narrative [facility] - 13:16 EST Does PT Have a Latex Allergy? NO Performing Organization Address City/State/[facility] Code Phon e Number [facility] [address] LAB BASIC METABOLIC PANEL (BMP) (05/15/2018 12:18 EST) BUN - [facility] 16 10 - 26 mg/dL [facility] CALCIUM - [facility] 9.3 8.5 - 10.5 [facility] mg/dL [facility] Chloride 101 96 - 110 [facility] mmol/L [facility] CO2 Total 25 22 - 32 mEq/L [facility] CREATININE 1.00 0.52 - 1.04 [facility] mg/dL [facility] eGFR >60 [facility] Comment: MED [facility]ENTER LAB Chronic renal impairment is defined as GFR <60 Multiply result by 1.210 for patients . eGFR calculated using the IDMS-traceable MDRD Study Equation. ??(effective 03/02/2014) Anion Gap 16 0 - 18 [facility] GLUCOSE - [facility] 86 70 - 100 mg/dL [facility] Potassium 4.6 3.5 - 5.0 [facility] mEq/L [facility] Sodium 142 136 - 145 [facility] mEq/L [facility] Specimen Narrative [facility] - 13:16 EST Does PT Have a Latex Allergy? NO Performing Organization Address City/[facility]/ZIP Code Phon e Number [facility] [address] [place] [address] [facility] (ABNORMAL) C REACTIVE PROTEIN (05/15/2018 12:18 EST) Pathologist Sig nature SED RATE - [facility] 85 (H) 1 - 17 mm/hr [facility] Specimen Narrative [facility] - 019 13:11 EST Does PT Have a Latex Allergy? NO Performing Organization Address City/[facility] Code Phon e Number [facility] [address] [place] [address] [facility] documented in this encounter Visit Diagnoses Not on filedocumented in this encounter Care Teams [employer] Buildings Supervisor Relationship Specialty Start Date End Date Ratna Olivas MD PCP - General 03/05/[address] [place] [phone] documented as of this encounter
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
--- OUTSIDE RECORDS SUMMARY | 2022-02-03 16:03 | XMS_ITS | Encounter Summary ---
:1980 Author Organization [facility] Address [address] [place] [address] Care Team Providers Name Role Phone Ratna Olivas MD Primary Care Provider Encounter Details Date Type Department Care Team Description 01/14/2020 Lab Requisition [facility] Outr Resulting Lab, Pathology & Laboratory Provider [facility] [address] [place] [address] Social History Tobacco Use Types Packs/Day Years [...] Name Priority Date/Time Associated Diagnosis Comme nts HCV RNA DETECT Today 01/14/2020 10:25 Results f or this QUANT EDT procedure are i n the results section. HEPATITIS C AB W Routine 01/14/2020 10:25 Results for this REFLEX TO HCV RNA EDT procedure are in BY PCR the results section. documented in this encounter Results HCV RNA DETECT QUANT (01/14/2020 10:25 EDT) Pathologist Sig nature HCV RNA Qualitative Undetected Undetected [facility] Specimen Blood - Venous blood (substance) Narrative [facility] - 01/16/2020 13:24 EDT The quantification range of this assay i s 15 IU/mL to 100,000,000 IU/mL. ??Testing was performed on the [employer] Ampliprep/COB TaqMan HCV v2.0 ([employer] Performing Organization Address City/State/ZIP Code Phon e Number [facility] [address] [place] [address] SERVICES (ABNORMAL) HEPATITIS C AB W REFLEX TO HCV RNA BY PCR (01/14/2020 10:25 EDT) Hep C Antibody Reactive (A) Negative [facility] Comment: LABORATORY SERVICES Supplemental testing for HCV RNA is ordered to r ule out active HCV infection. Specimen Blood - Venous blood (substance) Performing Organization Address City/[facility]/ZIP [facility] Phon e Number [facility] [address] [place] [address] SERVICES documented in this encounter Visit Diagnoses Not on filedocumented in this encounter Care Teams Fabrication Supervisor Relationship Specialty Start Date End Date Ratna Olivas MD PCP - General 03/05/[address] [place] [phone] documented as of this encounter
--- OUTSIDE RECORDS SUMMARY | 2022-02-03 16:03 | XMS_ITS | Encounter Summary ---
:[address] [facility] Address [address] [place] [address] Care Team Providers Name Role Phone Unavailable Primary Care Provider Unavailable Encounter Details Date Type Department Care Team Description 09/17/2018 Historical Results [facility] - Karie Dinero [facility] Radiology Resul shira Allen MD [address] [facility] [address] [place] [address] [place] [phone] Social History Tobacco Use Types [...] Priority Date/Time Associated Diagnosis Comme nts XR CHEST 1 VIEW 09/17/2018 16:22 Results for this EDT procedure are i n the results section. ANAEROBIC CULTURE - Routine 09/17/2018 13:00 Resu lts for this [facility] EDT procedure are i n the results section. documented in this encounter Results XR CHEST 1 VIEW (09/17/2018 16:22 EDT) Specimen Narrative [facility] - 09/17/2018 16:22 EDT ? EXAM: RADIOLOGY/CHEST-PORTABLE ?EX. D/ (1603) ? CLINICAL INFORMATION: ? STATUS CENTRAL LINE IN RIGHT INTE RNAL JUGULAR ? EXAM: ?XR Chest, 1 View ? EXAM DATE/TIME: ?09/17/2018 3:30 PM ? CLINICAL HISTORY: ?37 years old, female; Device pl acement; Picc; Additional info: ? Status central line in right inte rnal jugular ? TECHNIQUE: ?Imaging protocol: XR of the meryl st, 1 view. ? COMPARISON: ?CR EXP CARE CHEST PA ?? LAT 04/30 12:03 PM ? FINDINGS: ?Tubes, catheters and devices: R ight central venous catheter tip ? in the distal superior vena cava. ?Lungs: Unremarkable. No consoli dation. ?Pleural space: Unremarkable. No pleural effusion. No ? pneumothorax. ?Heart/Mediastinum: Unremarkable . No cardiomegaly. ?Bones/joints: Unremarkable. ? IMPRESSION: ?Right central venous catheter t ip in the superior vena cava. ? REPORT SIGNED IN OTHER VENDOR SYSTEM 09/17/2018 ?Reported B y: Madhu Pedroza MD ? CC: Karie Dinero MD ? Transcribed Date/Time: 09/17/2018 (2082) ? Kosher Dietary Service Supervisor: ? Printed Date/Time: 01/15/2019 (17 12) ? PAGE 1 ? Haylee d Report ? Procedure Note Madhu Pedroza MD - 03/04/2019 EXAM: RADIOLOGY/CHEST-PORTABLE EX. D/ (1603) CLINICAL INFORMATION: STATUS CENTRAL LINE IN RIGHT INTERNAL J UGULAR EXAM: XR Chest, 1 View EXAM DATE/TIME: 09/17/2018 3:30 PM CLINICAL HISTORY: 37 years old, female; Device placement; Picc; Additional info: Status central line in right internal j ugular TECHNIQUE: Imaging protocol: XR of the chest, 1 vi ew. COMPARISON: CR EXP CARE CHEST PA [facility] 05/16/2018 12:0 3 PM FINDINGS: Tubes, catheters and devices: Right avis tral venous catheter tip in the distal superior vena cava. Lungs: Unremarkable. No consolidation. Pleural space: Unremarkable. No pleural effusion. No pneumothorax. Heart/Mediastinum: Unremarkable. No car diomegaly. Bones/joints: Unremarkable. IMPRESSION: Right central venous catheter tip in th e superior vena cava. REPORT SIGNED IN OTHER VENDOR SYSTEM 09/17/2018 Reported By: Madhu Pedroza MD CC: Karie Dinero MD Transcribed Date/Time: 09/17/2018 (9842 ) Kosher Dietary Service Supervisor: Printed Date/Time: 01/15/2019 (1712) PAGE 1 Signed Report Performing Organization Address City/[facility]/ZIP Code Phon e Number [facility] ANAEROBIC CULTURE - [facility] (09/17/2018 13:00 EDT) Anaerobe Culture [facility] Anaerobe Culture No growth. [facility] Anaerobe Culture TISSUE SUBMITTED [facility] BACTERIA SEEN - NO [facility] WBC NO [facility] GRAM STAIN - [facility] SENSITIVITY NOT PERFORMED ON COAG. NEG. STAPH. ISOLATE, [facility] PLEASE CONTACT LAB WITHIN 7 DAYS FOR ADDITIONAL TESTIN GST. [facility] PTH-Related [facility] Peptide [facility] LAB QUANT - [facility] RARE [facility] Specimen Narrative [facility] - 019 11:50 EDT COMMENTS: end of bone Does PT Have a Latex Allergy? NO Performing Organization Address City/[facility]/ZIP Code Phon e Number [facility] [address] [place] [address] [facility] documented in this encounter Visit Diagnoses Not on filedocumented in this encounter
--- OUTSIDE RECORDS SUMMARY | 2022-02-03 16:03 | XMS_ITS | Encounter Summary ---
:[address] [facility] Address [address] [place] [address] Care Team Providers Name Role Phone Unavailable Primary Care Provider Unavailable Encounter Details Date Type Department Care Team Description 09/13/2018 Historical Results [facility] - Karie Dinero [facility] - Main [facility] MD Tiffany 130 [facility] [id number] [place] [address] Social History Tobacco Use Types [...] Associated Comments Diagnosis COMPLETE BLOOD COUNT Routine 09/13/2018 13:48 Res ults for this WITH DIFFERENTIAL EDT procedure are in (AUTO) the results section. SURGICAL PATHOLOGY Routine 09/13/2018 10:59 Resul ts for this EDT procedure are i n the results section. TEST CANCELLED - [facility] Routine 09/13/2018 9:53 Res ults for this EDT procedure are i n the results section. ANAEROBIC CULTURE - Routine 09/13/2018 9:35 Resul ts for this [facility] EDT procedure are i n the results section. HIV 1/2 AB, P24 AG - Routine 09/13/2018 7:00 Resu lts for this [facility] EDT procedure are i n the results section. COMPLETE BLOOD COUNT Routine 09/13/2018 7:00 Resu lts for this WITH DIFFERENTIAL EDT procedure are in (AUTO) the results section. RAPID PLASMA REAGIN Routine 09/13/2018 7:00 Resul ts for this (RPR) WITH REFLEX, S EDT procedu re are in the results section. HCV RNA DETECT QUANT Routine 09/13/2018 7:00 Resu lts for this EDT procedure are i n the results section. C REACTIVE PROTEIN Routine 09/13/2018 7:00 Result s for this EDT procedure are i n the results section. BASIC METABOLIC PANEL Routine 09/13/2018 7:00 Res ults for this (BMP) EDT procedure are i n the results section. documented in this encounter Results (ABNORMAL) COMPLETE BLOOD COUNT WITH DIFFERENTIAL (AUTO) (09/13/2018 13:48 EDT) ABSOLUTE NEUTROPHIL 6.3 2.2 - 8.85 [facility] COUN - [facility] 10e3/uL [facility] BASO # - [facility] 0.01 0.01 - 0.11 [facility] 10e/uL [facility] BASO % - [facility] 0 0 - 2 % [facility] EOS # - [facility] 0 (L) 0.03 - 0.61 [facility] 10e3/ul [facility] EOS % - [facility] 0 0 - 5 % [facility] GRAN % - [facility] 92.5 (H) 40 - 80 % [facility] HEMATOCRIT - [facility] 20.1 (L) 34.9 - 44.4 % [facility] Comment: [facility] Result called to SHEY DARBY (DSCU) 09/13/18 1424 Result called by PM HEMOGLOBIN - [facility] 6.1 (LL) 11.6 - 15.2 [facility] Comment: g/dl [facility] Result called to SHEY DARBY (DSCU) 09/13/18 1424 Result called by PM IG# - [facility] 0.06 0 - 0.7 [facility] 10e3/uL [facility] IG% - [facility] 0.9 0 - 0.9 % [facility] LYMPH # - [facility] 0.3 (L) 1.09 - 3.3 [facility] 10e3/ul [facility] LYMPH% - [facility] 5.0 (L) 20 - 40 % [facility] MEAN CORPUSCULAR HGB 23.6 (L) 26.7 - 33.3 [facility] pg [facility] MEAN CORPUSCULAR HGB 30.3 (L) 32.1 - 35.9 [facility] CONC - [facility] g/dL [facility] LAB MEAN CELL VOLUME - 77.9 (L) 81 - 98 fl [facility] MONO # - [facility] 0.1 0.1 - 0.8 [facility] 10e3/uL [facility] MONO% - [facility] 1.5 0 - 12 % [facility] LAB PLATELET COUNT 275 141 - 377 [facility] 10e3/ul [facility] LAB RED BLOOD COUNT - 2.58 (L) 3.86 - 5.04 [facility] 10e3/[facility] LAB RED CELL DISTRI 15.9 <14.7 % [facility] WIDTH - [facility] LAB WHITE BLOOD COUNT - 6.9 4.0 - 12.4 [facility] 10e3/[facility] LAB Specimen Performing Organization Address City/State/ZIP Code Phon e Number [facility] [address] [place] [address] [facility] SURGICAL PATHOLOGY (09/13/2018 10:59 EDT) Specimen Narrative [facility] - 019 17:06 EDT Name: LINDSAY JEAN BAPTISTE ?: 84 ?Age/Sex: 38/F ?Unit#: [id number] ? Loc: 2S ?Status: DIS IN ? Reg Date: 09/13/18 ? Pt.Phone Number : ? Specimen: [id number] ? STA FAIZA: SOUT ?Spec Date:09/13/18 ? Physician Copies: ?Karie Dinero MD ? Tissues: A ?? Extremity, amputation, non traumatic (RIGHT LEG) ?Anti,Suzie HORSERADISH GRINDER ? B ?? Bone biopsy (RIGHT LEG ) ? C ?? Bone biopsy (RIGHT FIB WILLA) ? D ?? Muscle biopsy (RIGHT L EG) ? CPT: 67303 ?? Units: ??3 ? 13221 ? 1 ? 94558 ? 1 ? 22940 ? 3 ?FINAL DIAGNOSIS ? A. ??LEG, RIGHT, BELOW THE KNEE A MPUTATION; ? - Large, chronic, full thickness ulcer of anteromedial st (16.5 cm in ? greatest dimension), with underly ing fibrosis and mixed acute and chronic ? inflammation. See comment. ? - Chronic, full thickness ulcer o f great toe (3.4 cm in greatest dimension). ? - Changes in the tibia and proxim al phalanx of great toe, each underlying the ? previously described ulcers, cons itent with acute on chronic osteomyelitis. ? - Ulcers are negative for fungi b y GMS stain. ? - Skin and soft tissue resection margin appears viable. ? B. ??BONE, RIGHT LEG, CLEAN END OF BONE, BIOPSY; ? - Fragments of viable trabecular bone and benign soft tissue. ? - No evidence of osteomyelitis. ? C. ??BONE, RIGHT FIBULA, PARTIAL EXCISION; ? - Mature cortical bone; negative for osteomyelitis. ? D. ??MUSCLE OF LEG, RIGHT, BIOPSY ; ? - Benign muscle and fibrous soft tissue. ? - No significant acute inflammato ry infiltrate present. ?COMMENT ? The large ulcer on the st shows a com ponent of acute/neutrophilic inflammation in the dermis and subcutis . The microscopic findings are non-specific, and correlation with the clinical and pending microbiologic studies is required for further evaluat ion of potential causes including bacterial infection and pyoderma gangre nosum. There is no evidence of a neoplasm or malignancy causing the ulce r. Clinical correlation is suggested. Patient: LINDSAY JEAN BAPTISTE ?#[id number] ? (Continued) Specimen: ? Rec eived: 09/13/18-1058 ?(Continued) ? GROSS DESCRIPTION ? Received are four specimens all l abeled with Lindsay Jean Baptiste. ? A. ??The first specimen is receiv ed fresh in a specimen bag and is additionally ? labeled 1. right leg and consis ts of one right below the knee amputation ? specimen (heel-to-toe length is a pproximately 23 cm; forefoot width is ? approximately 8.5 cm; base of the heel to the resection margin is approximately ? 33 cm long). There is a rim of he althy-appearing skin and soft tissue ? present at the resection margin. The tibia and fibula bones appear healthy and ? are hard at the resection margin. Yoselin muscle present in that area also appears ? healthy. ??There is a large chron ic ulcer present on the anteromedial aspect of ? the lower st that shows maximum dimension of 14.5 cm in height x 16.5 cm in ? width and extends down to the und erlying tendon, muscle, and tibia bone. ??There ? is a thin 0.6 cm thick rim of ski n present at the proximal skin and soft tissue ? margin that just separates the re section margin from the adjacent ulcer. ? Further examination of the specim en reveals intact and healthy-appearing toes ? numbers 2-5 with toenails intact; the great toe shows a missing nail with a ? large chronic ulcer measuring 3.4 cm x 3.0 cm and extending down to the ? underlying subcutis, muscle, and abutting the proximal phalanx bone. There is ? also a linear, old, well-healed s car extending from areas inbetween the great ? toe and second proximally and run baltazar a length of approximately 6.5 cm. ??The ? heel appears unremarkable with no gross lesion. ??The posterior tibial vessels ? are cut and show no definitive at herosclerosis. ??The bone underlying the large ? ulcer is firm and hard; the proxi mal phalanx bone of the great toe is mildly ? softened on cut surface. ??The se ctions of bone are decalcified prior to ? submission. ??Contact Lens Blocker sect ions are taken and submitted as per block ? summary. ? A1: ? Anteromedial st ul cer including edge, ? A2: ? Great toe ulcer incl uding edge, ? A3: ? Anteromedial skin an d soft tissue resection margins, shave, ? A4: ? Posterior tibial ves sels, ? A5: ? Tibia bone under lar ge ulcer, ? A6: ? Proximal phalanx of great toe under ulcer. ? B. ??A second container is additi onally labeled 2. right leg clean end of bone ? which contains multiple yellow-re d fragments of fatty soft tissue that ? measuring approximately 2.0 x 1.5 x 0.3 cm in greatest aggregate dimension, two ? small fragments of likely bone th at is more firm that measures 0.4 cm in ? greatest dimension and up to 1.0 cm in greatest dimension. ??These fragments are ? decalcified and submitted with th e soft tissue in B1 and the bone in B2. ? C. ??A third container is additio jasper labeled 3. right fibula and contains a ? segment of unoriented bone that m easures 3.8 cm in length x 1.7 x 1.1 cm. The Patient: LINDSAY JEAN BAPTISTE ?#[id number] ? (Continued) Specimen: [id number] ? Rec eived: 09/13/18-1059 ?(Continued) ? GROSS DESCRIPTION ?(Continued) ? bone is hard, and healthy appeari ng. ??It will be extensively decalcified with ? the ends shaved and submitted in cassette C1. ? D. ??A fourth contains is additio jasper labeled 4. right leg muscle and ? contains two fragments of brown s keletal muscle, the larger measuring 3.2 x 1.5 ? x 0.8 cm and the smaller measurin g 1.8 x 0.6 x 0.3 cm in greatest dimension. ? The fragments are submitted lu parikh in 2 cassettes. ??JN ?MICROSCOPIC DESCRIPTION ? A-D. A microscopic examination wooten s been performed. A GMS stain was performed on ? blocks A1 and A2, both of which a re negative for fungi. Control staining is ? appropriate. ?? PREOP DX/CLINICAL HISTORY ?OSTEOMYOLITIS Signed ____(signature on file)____ Rocky Montano 09/18/18 ? By the signature above, the attending ph ysician certifies that he/she has personally conducted a gross and/or microscopic exa mination of the described specimens and rendered or confirmed the above diagnosi s. Test Performed by [facility], [address] [place] [address] Crop Specialist: Jaimee Silvestre MD PHD Performing Organization Address [facility]/ZIP Code Phon e Number [facility] [address] [place] [address] LAB TEST CANCELLED - [facility] (09/13/2018 9:53 EDT) TEST CANCELLED - SEE NOTE [facility] Comment: [facility] LAB The following test(s) have been cancelled: TEST: ??SYNOVIAL CELL COUNT/DIFF REASON FOR CANCELLATION: ??QNS TO DO -CULTURE ONLY PROCESSED OFFICE/MD NOTIFIED ??[place] Specimen Performing Organization Address [facility]/ZIP Code Phon e Number [facility] [address] [place] [address] LAB ANAEROBIC CULTURE - [facility] (09/13/2018 9:35 EDT) Anaerobe Culture [facility] Anaerobe Culture No growth. [facility] Anaerobe Culture SPECIMEN PROCESSED UNSPUN - <1.0 CC RECEIVED. C JULIANA [facility] RESULTS MAY BE COMPROMISED DUE TO LIMITED VOLUME. [facility] BACTERIA SEEN - NO [facility] WBC RARE [facility] GRAM STAIN - [facility] GRAM STAIN - [facility] No growth. [facility] Specimen Narrative [facility] - 019 12:02 EDT COMMENTS: RIGHT LEG Does PT Have a Latex Allergy? NO Performing Organization Address [facility]/ZIP Code Phon e Number [facility] [address] LAB (ABNORMAL) C REACTIVE PROTEIN (09/13/2018 7:00 EDT) Pathologist Sig nature C-Reactive Protein 24.9 (H) <10.0 mg/L [facility] Specimen Performing Organization Address [facility] Phon e Number [facility] [address] LAB BASIC METABOLIC PANEL (BMP) (09/13/2018 7:00 EDT) Pathologist [facility] BUN - [facility] 19 10 - 26 mg/dL [facility] CALCIUM - [facility] 9.0 8.5 - 10.5 [facility] mg/dL [facility] Chloride 106 96 - 110 [facility] mmol/L [facility] CO2 Total 23 22 - 32 mEq/L [facility] CREATININE 1.04 0.52 - 1.04 [facility] mg/dL [facility] eGFR >60 [facility] Comment: [facility] Chronic renal impairment is defined as GFR <60 Multiply result by 1.210 for patients . eGFR calculated using the IDMS-traceable MDRD Study Equation. ??(effective 03/02/2014) Anion Gap 11 0 - 18 [facility] GLUCOSE - [facility] 84 70 - 100 mg/dL [facility] Potassium 3.9 3.5 - 5.0 [facility] mEq/L [facility] Sodium 140 136 - 145 [facility] mEq/L [facility] Specimen Performing Organization Address [facility] Phon e Number [facility] [address] LAB HIV 1/2 AB, P24 AG - [facility] (09/13/2018 7:00 EDT) Pathologist [facility] HIV 1/2 AB, P24 AG - Negative Negative [facility] LAB Specimen Performing Organization Address City/[facility] Phon e Number [facility] [address] LAB (ABNORMAL) COMPLETE BLOOD COUNT WITH DIFFERENTIAL (AUTO) (09/13/2018 7:00 EDT) [facility] ABSOLUTE NEUTROPHIL 5.6 2.2 - 8.85 [facility] COUN [facility] 10e3/uL [facility] BASO # - [facility] 0.04 0.01 - 0.11 [facility] 10e/uL [facility] BASO % - [facility] 1 0 - 2 % [facility] EOS # - [facility] 0.11 0.03 - 0.61 [facility] 10e3/[facility] LAB EOS % - [facility] 2 0 - 5 % [facility] GRAN % - [facility] 80.7 (H) 40 - 80 % [facility] HEMATOCRIT - [facility] 24.8 (L) 34.9 - 44.4 % [facility] Comment: [facility] Result called to BETO FERNANDEZ ([facility]) 09/13/18 0731: Result called by PM HEMOGLOBIN - [facility] 7.6 (L) 11.6 - 15.2 [facility] Comment: g/dl [facility] Result called to BETO FERNANDEZ ([facility]) 09/13/18730: Result called by PM IG# - [facility] 0.07 0 - 0.7 [facility] 10/[facility] LAB IG% - [facility] 1.0 (H) 0 - 0.9 % [facility] LYMPH # - [facility] 0.8 (L) 1.09 - 3.3 [facility] 10e3/[facility] LAB LYMPH% - [facility] 10.9 (L) 20 - 40 % [facility] MEAN CORPUSCULAR HGB 24.1 (L) 26.7 - 33.3 pg [facility] LAB MEAN CORPUSCULAR HGB 30.6 (L) 32.1 - 35.9 [facility] CONC - [facility] g/dL [facility] MEAN CELL VOLUME - 78.5 (L) 81 - 98 fl [facility] MONO # - [facility] 0.4 0.1 - 0.8 [facility] 10e3/[facility] LAB MONO% - [facility] 5.2 0 - 12 % [facility] PLATELET COUNT 354 141 - 377 [address] [id number] LAB RED BLOOD COUNT - 3.16 (L) 3.86 - 5.04 [facility] 10e3/[facility] LAB RED CELL DISTRI 16.0 <14.7 % [facility] WIDTH - [facility] LAB WHITE BLOOD COUNT - 7.0 4.0 - 12.4 [place] [id number] [facility]ENTER LAB Specimen Performing Organization Address City/[facility]/ZIP Code Phon e Number [facility] [address] [place] [address] [facility] HCV RNA DETECT QUANT (09/13/2018 7:00 EDT) HCV RNA Quantitative Undetected IU/ml [facility] Comment: [facility] LAB Result: Undetected IU/ml ??Reference Range: Undetected The quantification range of this assay is 15 to 100,00 0,000 IU/ml. Testing was performed using the tanmay HCV test ([employer] with the tanmay Zhitu0 System. Performing Lab: [facility] , [address] [place] [address] Specimen Performing Organization Address [facility] Phon e Number [facility] [address] [place] [address] [facility] RAPID PLASMA REAGIN (RPR) WITH REFLEX, S (09/13/2018 7:00 EDT) Pathologist Sig nature APID PLASMA REAGIN - Nonreactive NEG [facility] C[facility] LAB Specimen Performing Organization Address City/[facility]/ZIP Code Phon e Number [facility] [address] [place] [address] [facility] documented in this encounter Visit Diagnoses Not on filedocumented in this encounter
--- OUTSIDE RECORDS SUMMARY | 2022-02-03 16:03 | XMS_ITS | Encounter Summary ---
:1980 Author Organization [facility] Address [address] [place] [address] Care Team Providers Name Role Phone Unavailable Primary Care Provider Unavailable Encounter Details Date Type Department Care Team Description 09/24/2018 Historical Results [facility] - Karie Dinero [facility] Lab - Main [facility] MD Tiffany 130 [facility] [id number] [place] [address] Social History Tobacco Use Types [...] Name Priority Date/Time Associated Diagnosis Comme nts [facility] REFLEX TO [facility] Routine 09/24/2018 12:18 Resu lts for this IF POS - [facility] EDT procedure are in the results section. documented in this encounter Results [facility] REFLEX TO [facility] IF POS - [facility] (09/24/2018 12:18 EDT) Pathologist Sig nature [facility] SCREEN - [facility] NEG [facility] CE NTER LAB Specimen Performing Organization Address City/State/ZIP Code Phon e Number [facility] [address] [place], [place] [id number] [place] [address] LAB documented in this encounter Visit Diagnoses Not on filedocumented in this encounter
--- OUTSIDE RECORDS SUMMARY | 2022-02-03 16:03 | XMS_ITS | Encounter Summary ---
:1980 Author Organization [facility] Address [address] [place] [address] Care Team Providers Name Role Phone Ratna Olivas MD Primary Care Provider Reason for Visit Reason Comments Wound Care Wound Care Encounter Details Date Type Department Care Team Description 04/03/2019 Office Visit [facility] - Delon Bautista ulcer of left great toe with necrosis of muscle ([facility]) (Primary Dx); [facility] Orthopedics & M, GAUGE CHECKER BKA stump complication ([facility]) Podiatry [address], [facility] [address] [place] [address] [address] [place] [address] Social History Tobacco Use Types Packs/Day Years [...] Taken Comments Blood Pressure - - Pulse 72 04/03/2019 1302 EST Temperature 37.1 ??C (98.7 ??F) 04/03/2019 1302 EST Respiratory Rate - - Oxygen Saturation 98% 04/03/2019 1302 EST Inhaled Oxygen Concentration - - Weight [...] making decisions? documented as of this encounter Patient Instructions Patient InstructionsDelon Bautista APRN - 04/03/2019 13:00 EST --start applying santyl or hydrogel to the wound bed (glaze, not icing). Clean daily and reapply. Cover with gauze. --Follow up with dermatology as planned. --Compression for the left foot (but not the toe) is appropriate. --To Emergency Department for any acute changes, fever, streaking redness, or symptoms that worry you. documented in this encounter Progress Notes Delon Bautista APRN - 04/03/2019 1300 EST Images from the original note were not included. CHIEF COMPLAINT: Chief Complaint Patient presents with ??? Right Lower Leg - Wound Care ??? Left Great Toe - Wound Care SUBJECTIVE: Lindsay is known to this clinic previously for groin wound. She presents for follow up on ulcerations on the right BKA stump and left great toe. She is also followed by dermatology. She reports that recent trial of prednisone gave her bad side effects and seemed to worsen the wound, so she stopped it. She presented to the ED for worsening symptoms, and was started on Keflex and Bactrim, which she is continuing for another 4 days. ? Intake to Wound Clinic:?? Date: ??05/16/2018.??Type of wound:??MSSA ulcer right groin.??Antibiotics:??See ID summary for full account of [id number] antibiotic therapies.??Culture:??04/2018 MSSA, suspect colonization versus infection..??Factors Complicating Healing:??on eliquis.? Lindsay has been previously seen with wound care for nonhealing groin wound. 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 ?She is no longer receiving HH. ?Followed by Dr. Dinero for the BKA. ?Followed by Dr. Mckeon in dermatology for left toe wound, which she is treat with betamethasone topically. ?Otherwise feeling well today. She reports that she has been making great efforts at hydration, good nutrition. ?She reports a lot of pain the left great toe with dressing changes that takes at least 4 hours to recover from. Patient Active Problem List Diagnosis ??? Pseudoaneurysm of femoral artery (HCC-CMS) ??? Foreign body (FB) in soft tissue ??? Foreign body in left lower extremity No Known Allergies Medications Prior to Today's Visit Medication Sig ??? acetaminophen (TYLENOL) 500 mg tablet Take 2 Tabs by mouth every 6 hours. ??? apixaban (ELIQUIS) 5 mg tablet Take 1 Tab by mouth 2 times daily. ??? betamethasone dipropionate (DIPROLENE) 0.05 % ointment Apply 1 application topically 2 times daily. ??? buprenorphine-naloxone (SUBOXONE) 12-[address] 12 mg under the tongue daily. ??? Calcium-Cholecalciferol, D3, (CALCIUM 600 + D) 600-125 mg-unit tablet Take 1 Tab by mouth daily for 14 days. ??? cephALEXin (KEFLEX) 500 mg capsule Take 500 mg by mouth 4 times daily. ??? collagenase (SANTYL) ointment Apply 1 application topically daily. ??? gabapentin (NEURONTIN) 600 mg tablet Take 1 Tab by mouth 3 times daily. ??? INTRAUTERINE DEVICE, IUD, INTRAUTERINE 1 Device by intrauterine route. ??? methocarbamol (ROBAXIN) 500 mg tablet Take 2 Tabs by mouth every 6 hours as needed for Muscle Spasms. ??? multivitamin capsule Take 1 Cap by mouth daily. ??? NORLYDA 0.35 mg tablet ??? predniSONE (DELTASONE) 20 mg tablet Take 3 Tabs by mouth daily for 14 days. (Patient not taking:Reported on 04/03/2019) ??? sulfamethoxazole-trimethoprim (BACTRIM/CO-TRIMOXAZOLE DS) 800-160 mg per tablet Take 1 Tab by mouth every 12 hours. ??? traZODone (DESYREL) 50 mg tablet Take 1 Tab by mouth at bedtime as needed for Sleep. No facility-administered medications prior to visit. ROS: Review of Systems Constitutional: Negative for chills, fever and malaise/fatigue. OBJECTIVE: Pulse 72 Temp 37.1 ??C (98.7 ??F) SpO2 98% Physical Exam Constitutional: She is oriented to person, place, and time. She appears well- developed and well-nourished. No distress. Pulmonary/Chest: Effort normal. Musculoskeletal: Right BKA Neurological: She is alert and oriented to person, place, and time. Psychiatric: She has a normal mood and affect. Her behavior is normal. Judgment and thought content normal. Vitals reviewed. Full Thickness 06/28/17 Surgical Right Groin (Active) Date First Assessed/Time First Assessed: 06/28/17 1045 Wound Type: Surgical Orientation: Right Location: Groin Wound Description: Drained Abcess Site No assessment data to display No Linked orders to display Full Thickness 06/29/17 Surgical Right Abdomen (Active) Date First Assessed/Time First Assessed: 06/29/17 1024 Wound Type: Surgical Orientation: Right Location: Abdomen Wound Description: Rigth Obturator Bypass surgical site No assessment data to display No Linked orders to display Full Thickness 06/29/17 Right;Upper;Inner Leg (Active) Date First Assessed/Time First Assessed: 06/29/17 1026 Orientation: Right;Upper;Inner Location: Leg Wound Description: Right femoral popliteal bypass surgical site No assessment data to display No Linked orders to display Full Thickness 06/29/17 Surgical Right Groin (Active) Date First Assessed/Time First Assessed: 06/29/17 1108 Wound Type: Surgical Orientation: Right Location: Groin Wound Description: righ groin debridement surgical site No assessment data to display No Linked orders to display Wound 04/03/19 Full thickness (Active) Date First Assessed/Time First Assessed: 04/03/19 1329 Orientation: Right;Lateral Location: (c) Leg Non-staged Wound Description: Full thickness Assessments 04/03/2019 13:36 Assessment Yellow;Other (Comment) Sharmin-wound Assessment Clean;Dry Shape oval Wound Length (cm) 0.7 cm Wound Width (cm) 0.6 cm Wound Surface Area (cm^2) 0.42 cm^2 Wound Depth (cm) 0.6 cm Wound Volume (cm^3) 0.25 cm^3 Drainage Description Serous Drainage Amount Small Dressing Changed New (Simple) No Linked orders to display Wound 04/03/19 Full thickness (Active) Date First Assessed/Time First Assessed: 04/03/19 1329 Orientation: Left;Dorsal Location: (c) Toe (Comment which one) Non-staged Wound Description: Full thickness Assessments 04/03/2019 13:38 Sharmin-wound Assessment Excoriated;Red;Swelling Wound Length (cm) 2 cm Wound Width (cm) 2.9 cm Wound Surface Area (cm^2) 5.8 cm^2 Wound Depth (cm) 0.1 cm Wound Volume (cm^3) 0.58 cm^3 Drainage Description Serous Drainage Amount Moderate Dressing Changed New (Simple) No Linked orders to display Wound 04/03/19 Full thickness (Active) Date First Assessed/Time First Assessed: 04/03/19 1335 Orientation: Right;Medial Location: (c) Leg Non-staged Wound Description: Full thickness Assessments 04/03/2019 13:37 Assessment White Wound Length (cm) 0.2 cm Wound Width (cm) 0.5 cm Wound Surface Area (cm^2) 0.1 cm^2 Wound Depth (cm) 0.1 cm Wound Volume (cm^3) 0.01 cm^3 Dressing Changed New (Simple) No Linked orders to display ASSESSMENT/PLAN: 38yo female with small ulcerations at her distal BKA stump, as well as growing ulceration of her left toe. The left toe is suspected to be pyoderma gangrenosum. The right BKA ulcers may be secondary to irritation from internal sutures. There is one spitting on the lateral wound. She declines attempt at removal today. Last visit we have discussed santyl, but she was unable to fill this due to cost. We have some in the clinic that we dispensed for her to take with her. Recommending this under gauze, secured with tubular netting, for all wounds currently to help softenher slough. Advised tubigrip for LLE, size D applied here. Follow up with dermatology as planned, advised to defer topical steroid until further evaluation dueto recent worsening ulceration. Continue antibiotic therapy. 1. Skin ulcer of left great toe with necrosis of muscle (HCC-CMS) 2. BKA stump complication (HCC-CMS) We discussed the current treatment regimen and following up in the office in 2 weeks to assess theirprogress. We discussed concerning signs and symptoms that should prompt a telephone call, an early office visit, or a visit to the Emergency Department. I sought and answered the patient's questions. They verbalized understanding and appreciation for their care. OLIVIA Loving 04/03/2019 Raven Mckee, JARRED - 04/03/2019 1300 EST Left hallux: 2.0 CM L X 2.9 CM W X 0.1 CM D Right BKA, 2 wounds Medial: 0.2 CM L X 0.5 CM W X 0.1 CM D Lateral: 0.7 CM L X 0.6 CM W X 0.6 CM D documented in this encounter Plan of Treatment Not on filedocumented as of this encounter Visit Diagnoses Diagnosis Skin ulcer of left great toe with necros is of muscle (HCC) - Primary BKA stump complication (HCC-CMS) (HCC) Late complications of amputation stump, unspecified documented in this encounter Historical Medications This list may reflect changes made after this encounter. Medication Sig Dispensed Refills Start Date End Date sulfamethoxazole-trimetho Take 1 Tab by mouth 0 05/04/2021 prim every 12 hours. (BACTRIM/CO-TRIMOXAZOLE DS) 800-160 mg per tablet cephALEXin (KEFLEX) 500 Take 500 mg by mouth 0 05/04/2021 mg capsule 4 times daily. added in this encounter Care Teams Potter Or Ceramic Artist Relationship Specialty Start Date End Date Ratna Olivas MD PCP - General 03/05/[address] [place] [phone] documented as of this encounter
--- OUTSIDE RECORDS SUMMARY | 2022-02-03 16:03 | XMS_ITS | Encounter Summary ---
:1980 Author Organization [facility] Address [address] [place] [address] Care Team Providers Name Role Phone Ratna Olivas MD Primary Care Provider Reason for Visit Reason Comments Wound Infection left great toe Encounter Details Date Type Department Care Team Description 03/12/2019 Telephone [facility] - Chula Rojo RN Wound Infection (left [facility] Infectious Dise ase [address] great toe) [address] [place] [address] [place] [address] [phone] Social History Tobacco Use Types Packs/Day Years [...] this encounter Miscellaneous Notes Telephone Encounter - Chula Rojo RN - 03/14/2019 1419 EST I spoke with pt. The redness on her foot has decreased but the redness/warmth on her leg remains thesame. She denies fever/chills. She will come to appt with Derm on Sunday, I said JL may want to see her as well. I advised if she has any increase in redness/pain/ drainage/fever/chills or generally feeling unwell she needs to go to the ER over the weekend. Pt verbalized understanding. elephone Encounter - Chula Rojo RN - 03/14/2019 1415 EST Pt called and left a message on the ID voicemail. She has not seen her PCP, forgot to call and make an appt. She is seeing Derm on Sunday and will just wait until then to have her foot examined. elephone Encounter - Chula Rojo RN - 03/12/2019 1208 EST Pt notified. She will call [facility] and see if they can get her here tomorrow. If not, she will call her PCP for an appointment. She will give me a call back either way. Telephone Encounter - Chula Rojo RN - 03/12/2019 1135 EST Pt called to report she has has redness spreading from her left great toe to heel, and up her st. Skin is warmer then surrounding areas, denies fevers/chills/n/v. She has increased pain in her toe, but no increase in drainage. She is still using the betamethasone cream. She may have difficulties getting to appt tomorrow if needed. Easier for her to see PCP. documented in this encounter Plan of Treatment Not on filedocumented as of this encounter Visit Diagnoses Not on filedocumented in this encounter Discontinued Medications Medication Sig Discontinue Reason Start Date End Date norgestimate-ethinyl Take by mouth. Patient Stopped Taking 03/12/2019 estradiol (TRI-SPRINTEC, 28, ORAL) Multivitamins with Take 1 Tab by Patient Stopped Taking 03/12/2019 Minerals tablet tablet mouth daily. ibuprofen (MOTRIN) 200 Take 400 mg by Drug interaction 03/12/2019 mg tablet mouth every 6 hours as needed for Pain. documented as of this encounter Historical Medications This list may reflect changes made after this encounter. Medication Sig Dispensed Refills Start Date End Date INTRAUTERINE DEVICE, 1 Device by 0 IUD, INTRAUTERINE intrauterine route. collagenase (SANTYL) Apply 1 application 0 2018 ointment topically daily. betamethasone Apply 1 application 0 02/14/2019 dipropionate topically 2 times (DIPROLENE) 0.05 % daily. ointment traZODone (DESYREL) 50 Take 1 Tab by mouth at 0 mg tablet bedtime as needed for Sleep. multivitamin capsule Take 1 Cap by mouth 0 daily. methocarbamol (ROBAXIN) Take 2 Tabs by mouth 0 500 mg tablet every 6 hours as needed for Muscle Spasms. gabapentin (NEURONTIN) Take 1 Tab by mouth 3 0 600 mg tablet times daily. apixaban (ELIQUIS) 5 mg Take 1 Tab by mouth 2 0 0 10/24/2018 04/24/2021 tablet times daily. added in this encounter Care Teams Truck Despatcher Relationship Specialty Start Date End Date Ratna Olivas MD PCP - General 03/05/[address] [place] [address] [phone] documented as of this encounter
--- OUTSIDE RECORDS SUMMARY | 2022-02-03 16:03 | XMS_ITS | Encounter Summary ---
:1980 Author Organization [facility] Address [address] [place] [address] Care Team Providers Name Role Phone Ratna Olivas MD Primary Care Provider Encounter Details Date Type Department Care Team Description 05/13/2020 Lab Requisition [facility] Outr Resulting Lab, Pathology & Laboratory Provider [facility] [address] [place] [address] Social History Tobacco Use Types Packs/Day Years [...] Procedure Name Priority Date/Time Associated Comments Diagnosis DO NOT ORDER Today 05/13/2020 11:11 Results for this STANDALONE - BROAD EST procedure are in COVID TEST the results section. COVID-19 TESTING Routine 05/13/2020 11:11 Results for this EST procedure are i n the results section. documented in this encounter Results DO NOT ORDER STANDALONE - BROAD COVID TEST (05/13/2020 11:11 EST) COVID-19 rt-PCR NEGATIVE Negative [facility] Result Comment: LABORATORY 2019-novel Coronavirus (2019 -nCoV) not detected by the qRT-PCR assay. Consider testing for other respiratory viruses or re-collecting for 2019-nCoV testing. Note: Optimum timing for peak viral levels du ring infections caused by 20 -nCoV have not been determined. Collection of multiple specimens from the same patient may be necessary to detect the virus. Limitations Positive results are indicat robert of active infection with SARS-CoV-2 but do not rule out bacterial infection or co-infection with other viruses. The agent detected may not be the definite cause of diseas e. In addition, detection of viral RNA may not indicate the presence of infectious virus or that SARS-CoV-2 is the causative agent for clinical symptoms. Negative results do not prec lude SARS-CoV-2 infection and should not be used as the sole basis for patient management decisions. Negative results must be combined with clinical observations, patient his tory, and epidemiological in formation. False negative results may also occur if amplification inhibitors are present in the specimen or if inadequate numbers of organisms are present in the specimen. Op timum specimen types and damian ing for peak viral levels during infections caused by SARS-CoV-2 have not been fully determined. Collection of multiple specimens (types and time points) from the same patient may be necessary to detect the virus. The test was validated for u se with upper respiratory specimens obtained via nasopharyngeal or oropharyngeal swabs in VTM, UTM, M4, M5, M6, saline, and MTM media. The performance of this test has not be en established for other spe cimens. Specimens collected using other FDA recommended Specimen Collection Materials listed in the FDA COVID-19 [employer] communication (July 24, 2019) are pr ocessed with the caveat that they were not all validated for use with this test and the result must be interpreted in this context. Furthermore, a false negative results may occur if a specimen is improperly collected, transported or handled. If the virus mutates in the RT-PCR target region, SARS-CoV-2 may not be detected or may be detected less predictably. Inhibitors or other types of interference may produce a false negative result. An interference study evaluating the effect of common cold medications was not performed. This test is not FDA-cleared but its performance characteristics were established by our CLIA-certified, CAP-accredited, high complexity laboratory in accordance with CLIA regulations, [employer] (CAP) guidel vonda (Jul 17, 2019), and FDA guidance (Jun 28, 2019). This test is only for use un dante the Food and Drug Administration's Emergency Use Authorization. Specimen Swab - Entire nasopharynx (body structur e) Performing Organization Address City/State/ZIP Code Phon e Number [facility] [place], [place] COVID-19 TESTING (05/13/2020 11:11 EST) COVID-19 rt-PCR NEGATIVE Negative [facility] Result Comment: LABORATORY 2019-novel Coronavirus (2019 -nCoV) not detected by the qRT-PCR assay. Consider testing for other respiratory viruses or re-collecting for 2019-nCoV testing. Note: Optimum timing for peak viral levels du ring infections caused by 20 -nCoV have not been determined. Collection of multiple specimens from the same patient may be necessary to detect the virus. Limitations Positive results are indicat robert of active infection with SARS-CoV-2 but do not rule out bacterial infection or co-infection with other viruses. The agent detected may not be the definite cause of diseas e. In addition, detection of viral RNA may not indicate the presence of infectious virus or that SARS-CoV-2 is the causative agent for clinical symptoms. Negative results do not prec lude SARS-CoV-2 infection and should not be used as the sole basis for patient management decisions. Negative results must be combined with clinical observations, patient his tory, and epidemiological in formation. False negative results may also occur if amplification inhibitors are present in the specimen or if inadequate numbers of organisms are present in the specimen. Op timum specimen types and damian ing for peak viral levels during infections caused by SARS-CoV-2 have not been fully determined. Collection of multiple specimens (types and time points) from the same patient may be necessary to detect the virus. The test was validated for u se with upper respiratory specimens obtained via nasopharyngeal or oropharyngeal swabs in VTM, UTM, M4, M5, M6, saline, and MTM media. The performance of this test has not be en established for other spe cimens. Specimens collected using other FDA recommended Specimen Collection Materials listed in the FDA COVID-19 [employer] communication (July 24, 2019) are pr ocessed with the caveat that they were not all validated for use with this test and the result must be interpreted in this context. Furthermore, a false negative results may occur if a specimen is improperly collected, transported or handled. If the virus mutates in the RT-PCR target region, SARS-CoV-2 may not be detected or may be detected less predictably. Inhibitors or other types of interference may produce a false negative result. An interference study evaluating the effect of common cold medications was not performed. This test is not FDA-cleared but its performance characteristics were established by our CLIA-certified, CAP-accredited, high complexity laboratory in accordance with CLIA regulations, [employer] of [employer] an [employer]ologists (CAP) guidel vonda (Jul 17, 2019), and FDA guidance (Jun 28, 2019). This test is only for use un dante the Food and Drug Administration's Emergency Use Authorization. Performing Lab [facility] LABORATORY SERVICES Specimen Swab Performing Organization Address City/State/ZIP Code Phon e Number [facility] [address] [place] [address] SERVICES [facility] [place], [place] documented in this encounter Visit Diagnoses Not on filedocumented in this encounter Care Teams Buggy Runner Relationship Specialty Start Date End Date Ratna Olivas MD PCP - General 03/05/[address] [phone] documented as of this encounter
--- OUTSIDE RECORDS SUMMARY | 2022-02-03 16:03 | XMS_ITS | Encounter Summary ---
:1980 Author Organization [facility] Address [address] [place] [address] Care Team Providers Name Role Phone Unavailable Primary Care Provider Unavailable Encounter Details Date Type Department Care Team Description 09/14/2018 Historical Results [facility] - Karie Dinero [facility] [place] [facility] MD Tiffany [address] [facility] [address] [id number] [place] [address] Social History Tobacco Use Types [...] Associated Comments Diagnosis COMPLETE BLOOD COUNT Routine 09/14/2018 9:00 Resu lts for this WITH DIFFERENTIAL EDT procedure are in (AUTO) the results section. documented in this encounter Results (ABNORMAL) COMPLETE BLOOD COUNT WITH DIFFERENTIAL (AUTO) (09/14/2018 9:00 EDT) Pathologist Sig nature ABSOLUTE NEUTROPHIL 3.0 2.2 - 8.85 [facility] 10e3/uL [facility] BASO # - [facility] 0.02 0.01 - [address].11 [facility] 10e/uL [facility] BASO % - [facility] 1 0 - 2 % [facility] EOS # - [facility] 0.08 0.03 - [address].61 [facility] 10e3/ul [facility] EOS % - [facility] 2 0 - 5 % [facility] GRAN % - [facility] 73.7 40 - 80 % [facility] HEMATOCRIT - [facility] 34.7 (L) 34.9 - 44.4 % [facility] HEMOGLOBIN - [facility] 11.0 (L) 11.6 - 15.2 [facility] g/dl [facility] IG# - [facility] 0.05 0 - 0.7 10e3/uL [facility] IG% - [facility] 1.3 (H) 0 - 0.9 % [facility] LYMPH # - [facility] 0.6 (L) 1.09 - 3.3 [facility] 10e3/ul [facility] LYMPH% - [facility] 15.0 (L) 20 - 40 % [facility] MEAN CORPUSCULAR HGB 25.7 (L) 26.7 - 33.3 pg [facility] ME D - [facility] CENTER LAB MEAN CORPUSCULAR HGB 31.7 (L) 32.1 - 35.9 [facility] CONC - [facility] g/dL CENTER LAB MEAN CELL VOLUME - 81.1 81 - 98 fl [facility] MONO # - [facility] 0.3 0.1 - 0.8 [facility] [address] LAB MONO% - [facility] 7.5 0 - 12 % [facility] PLATELET COUNT 182 141 - [address] LAB RED BLOOD COUNT - 4.28 3.86 - 5.04 [facility] 10e3/[facility] LAB RED CELL DISTRI WIDTH 16.8 <14.7 % [facility] LAB WHITE BLOOD COUNT - 4.0 4.0 - 12.[address] LAB Specimen Performing Organization Address City/State/ZIP Code Phon e Number [facility] [address] [place] [address] [facility] documented in this encounter Visit Diagnoses Not on filedocumented in this encounter
--- OUTSIDE RECORDS SUMMARY | 2022-02-03 16:03 | XMS_ITS | Encounter Summary ---
:1980 Author Organization [facility] Address [address] [place] [address] Care Team Providers Name Role Phone Ratna Olivas MD Primary Care Provider Reason for Visit Reason Comments Follow-up greater toe is worsening, c/ o redness, pain denies drainage, taking ibuprofen for pain, using th e betamethasone currently as prescribed, and bandaging, Encounter Details Date Type Department Care Team Description 03/24/2019 Office Visit [facility] - Keren Mckeon ma gangrenosum [facility] [place] MD Michael (Primary Dx) [id number] [phone] [facility] [address] [place] [address] (Wo rk) Social History Tobacco [...] as of this encounter Patient Instructions Patient InstructionsKeren Mckeon MD - 03/24/2019 10:45 EST -Start prednisone 60mg for 2 weeks -Start vitamin D and calcium (prescibed today), if insurance doesn't cover this ask the pharmacist for a combination pill -Continue betamethasone 0.05% cream -Discussed side effects of steroids and gave a print out -CALL IF YOU DO NOT FEEL WELL or have fevers documented in this encounter Ordered Prescriptions Prescription Sig Dispensed Refills Start Date End Date predniSONE (DELTASONE) 20 Take 3 Tabs by 42 Tab 0 201804/07/2019 mg tablet mouth daily for 14 days. Calcium-Cholecalciferol, Take 1 Tab by mouth 14 Tab 0 04/07/2019 D3, (CALCIUM 600 + D) daily for 14 days. 600-125 mg-unit tablet documented in this encounter Progress Notes Keren Mckeon MD - 03/24/2019 1045 EST Dermatology Outpatient Visit Note Chief Complaint Patient presents with ??? Follow-up greater toe is worsening, c/o redness, pain denies drainage, taking ibuprofen for pain, using the betamethasone currently as prescribed, and bandaging, Dermatologic History: No specialty comments available. Last Dermatology office visit: 02/14/2019 SUBJECTIVE Ms. Odonnell is a 38 y.o. 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 She was prevoiusly seen as a consult for pyodermagangrenosum (full note in eCW on 02/14/2019). Problem: Open sore on the toe: Pyoderma gangrenosum Location: Left great toe Duration: Months Associated symptoms: Pain, infection Modifying factors: -Tried betamethasone 0.05% ointment twice daily for the past month without improvement -Notices that the 2 separate [facility] have now joined together -Prior to my last visit she was using clotrimazole/betamethasone combination ointment which she thought was helping. And had been treated with IV antibiotics for an infection -She follows with Dr. Gorman -Denies reflux For full Medical, Surgical, Family, and Social histories, please see the History section of this encounter in the electronic chart which I have personally reviewed. For Review of Systems, Medications and Allergies, please see those sections of this encounter in theelectronic chart which I have also reviewed. She has a current medication list which includes the following prescription(s): acetaminophen, apixaban, betamethasone dipropionate, buprenorphine-naloxone, calcium-cholecalciferol (d3), collagenase, gabapentin, intra-uterine device (iud), methocarbamol, multivitamin, norlyda, prednisone, and trazodone. She has No Known Allergies. OBJECTIVE VS: There were no vitals taken for this visit. Ms. Odonnell is in no acute distress female sitting on the examination table with a normal affect. She is alert and oriented to person, place and time. She has Joshi type II skin. Cutaneous focused exam of the left foot and leg was performed.The examination was normal with the addition of the following comments: -Pt refused full skin exam -Pitting edema of the left leg to the knee -Left great toe with a ~2.5 cm ulcer with granulation tissue and over hanging borders, on the medialaspect there is a ~4mm ulcer. There is no drainage or purulent material seen, just granulation tissue -Pictures reviewed in eCW from the prior visit here and on 03/[address] Gorman ASSESSMENT/PLAN Pyoderma gangrenosum - based on clinical appearance today and prior biopsy of the right leg c/w pyoderma gangrenosum in 2014. Pt has declined biopsies. -Diagnosis and treatment options discussed -Informed that pt that I preferred to do intralesional steroids however the pt refused, as she did at the last visit. -Had Dr. Gorman see the pt today as well, she agreed it did not look infected -Recommend compression stockings, to cut the toe area off and apply them to decrease pain to the foot and increase circulation -Recommend starting prednisone 60mg daily, take in the morning for 2 weeks to trail if there is improvement, will continue from there and consider transitioning to a steroid sparing agent -Recommend starting vitamin D3 and calcium supplementation -Pt denies reflux, but informed if symptoms occur to call and will send a H2 manuel -Gave pt a hand out on the side effects of steroids (printed from [employer]) and verbally side effects were reviewed today -Reviewed that if she develops systemic symptoms such as fever, night sweats or if the pain increases in her foot to CALL our office and be seen immediately -Discussed that if not improved would consider a biopsy of the edge of the ulcer and/or intralesional steroids. Offered to send topical lidocaine to apply at least 20 minutes before the appointment andto cover, however she declined that today Return in about 2 weeks (around 04/07/2019) for pyoderma gangrenosum . She will f/u as planned or in the interim should problems arise. Keren Mckeon MD 03/24/2019 17:41 Yamini Duvall - 03/24/2019 1045 EST Review of Systems Constitutional: Negative. HENT: Negative. Eyes: Positive for pain. Respiratory: Negative. Cardiovascular: Negative. Gastrointestinal: Negative. Genitourinary: Negative. Musculoskeletal: Positive for joint pain. Skin: Negative. Neurological: Negative. Endo/Heme/Allergies: Negative. Psychiatric/Behavioral: Negative. documented in this encounter Plan of Treatment Not on filedocumented as of this encounter Visit Diagnoses Diagnosis Pyoderma gangrenosum - Primary documented in this encounter Historical Medications This list may reflect changes made after this encounter. Medication Sig Dispensed Refills Start Date End Date NORLYDA 0.35 mg tablet 0 03/21/2019 added in this encounter Care Teams Skin Installer Relationship Specialty Start Date End Date Ratna Olivas MD PCP - General 03/05/[address] [place] [phone] documented as of this encounter
--- OUTSIDE RECORDS SUMMARY | 2022-02-03 16:03 | XMS_ITS | Encounter Summary ---
:1980 Author Organization [facility] Address [address] [place] [address] Care Team Providers Name Role Phone Unavailable Primary Care Provider Unavailable Encounter Details Date Type Department Care Team Description 10/24/2018 Historical Results [facility] - Karie Dinero [facility] [place] Resul shira Allen MD [address] [facility] [address] [place] [address] [place] [address] Social History Tobacco Use Types [...] Priority Date/Time Associated Diagnosis Comme nts US EXTREMITY 10/24/2018 13:30 Results for this EDT procedure are i n the results section. ANAEROBIC CULTURE - Routine 10/24/2018 11:36 Resu lts for this [facility] EDT procedure are i n the results section. documented in this encounter Results US EXTREMITY (10/24/2018 13:30 EDT) Specimen Narrative [facility] - 10/24/2018 13:33 EDT ? EXAM: ULTRASOUND/DOPPLER VEIN EXT. LEFT ?? EX. D/ (1317) ? CLINICAL INFORMATION: ? M79.89 LEFT LEG SWELLING ? LEFT CALF PAIN AND SWELLING. R/O DVT ? DOPPLER VEIN EXT. LEFT ? Signs and Symptoms/Comments: ??M7 9.89 LEFT LEG SWELLING, LEFT CALF ? PAIN AND SWELLING. R/O DVT. IV dr lizet rod, left groin injection site. ? Comparison: Left lower extremity venous Doppler ultrasound 09/16/2018, ? 06/26/2017. ? Technique: Left lower extremity v enous Color and Spectral Doppler ? ultrasound was performed. ? FINDINGS: ? Partial, incompletely compressibl e thrombus is identified in the ? visible distal left external latosha c vein and left common femoral vein. ? Ill-defined hypoechogenicity in t he overlying tissues is suspicious ? for a phlegmon at the patient's i njection site. However, no drainable ? abscess is visible. Additional th rombus extends into the visible ? proximal left profunda femoral ve in. ? The left femoral and popliteal ve ins are partially obscured by ? diffuse lower extremity edema, bu t appear patent. The visible ? posterior tibial vein is patent w ith preserved compressibility. The ? peroneal vein is not well visuali zed. ? The visible proximal portion of t he left greater saphenous vein is ? occluded by thrombus. ? IMPRESSION: ? 1. ??Proximal left lower extremit y DEEP and SUPERFICIAL venous ? thrombosis, as described. Extensi ve left lower extremity subcutaneous ? edema. ? 2. ??Phlegmonous changes at the l eft groin injection site, however no ? drainable abscess visible at this time. ? These findings were called to the ordering provider's office by the ? low altitude air defense officer shortly after review by the radiologist. ? REPORT SIGNED IN OTHER VENDOR SYSTEM 10/24/2018 ?Reported B y: Wally Dacosta MD ? CC: Karie Dinero MD ? Transcribed Date/Time: 10/24/2018 (1333) ? Animal Rescuer: ? Printed Date/Time: 01/15/2019 (17 12) ? PAGE 1 ? Haylee d Report ? Procedure Note Wally Dacosta MD, - 03/04/2019 EXAM: ULTRASOUND/DOPPLER VEIN EXT. LEFT EX. D/ (1317) CLINICAL INFORMATION: M79.89 LEFT LEG SWELLING LEFT CALF PAIN AND SWELLING. R/O DVT DOPPLER VEIN EXT. LEFT Signs and Symptoms/Comments: M79.89 LEF T LEG SWELLING, LEFT CALF PAIN AND SWELLING. R/O DVT. IV drug use r, left groin injection site. Comparison: Left lower extremity venous Doppler ultrasound 09/16/2018, 06/26/2017. Technique: Left lower extremity venous Color and Spectral Doppler ultrasound was performed. FINDINGS: Partial, incompletely compressible thro mbus is identified in the visible distal left external iliac vein and left common femoral vein. Ill-defined hypoechogenicity in the ove rlying tissues is suspicious for a phlegmon at the patient's injecti on site. However, no drainable abscess is visible. Additional thrombus extends into the visible proximal left profunda femoral vein. The left femoral and popliteal veins ar e partially obscured by diffuse lower extremity edema, but appe ar patent. The visible posterior tibial vein is patent with pr eserved compressibility. The peroneal vein is not well visualized. The visible proximal portion of the lef t greater saphenous vein is occluded by thrombus. IMPRESSION: 1. Proximal left lower extremity DEEP a nd SUPERFICIAL venous thrombosis, as described. Extensive lef t lower extremity subcutaneous edema. 2. Phlegmonous changes at the left groi n injection site, however no drainable abscess visible at this time. These findings were called to the order ing provider's office by the low altitude air defense officer shortly after review by the radiologist. REPORT SIGNED IN OTHER VENDOR SYSTEM 10/24/2018 Reported By: Wally Dacosta MD CC: Karie Dinero MD Transcribed Date/Time: 10/24/2018 (6641 ) Animal Rescuer: Printed Date/Time: 01/15/2019 (7538) PAGE 1 Signed Report Performing Organization Address City/State/ZIP Code Phon e Number [facility] ANAEROBIC CULTURE - [facility] (10/24/2018 11:36 EDT) Anaerobe Culture [facility] Anaerobe Culture NO ANAEROBES [facility] ISOLATED IN [facility] HOURS Anaerobe Culture TWO SWABS RECEIVED [facility] GRAM STAIN BACTERIA SEEN - [facility] NO [facility] WBC FEW [facility] PSEUDOMONAS PSEUDOMONAS [facility] AERUGINOSA - [facility]ER[facility] QUANT - [facility] FEW [facility] Specimen Narrative [facility] - 019 7:45 EDT Organism Antibiotic Method Susceptibility Pseudomonas Ceftazidime GRAM NEGATIVE 4: Susceptible aeruginosa SUSCEPTIBILITY - [facility] Pseudomonas Ciprofloxacin GRAM NEGATIVE 0.5: Susceptible aeruginosa SUSCEPTIBILITY - [facility] Pseudomonas Cefepime GRAM NEGATIVE 8: Susceptible aeruginosa SUSCEPTIBILITY - [facility] Pseudomonas Gentamicin GRAM NEGATIVE 8: Intermediate aeruginosa SUSCEPTIBILITY - [facility] Pseudomonas Imipenem GRAM NEGATIVE 2: Susceptible aeruginosa SUSCEPTIBILITY - [facility] Pseudomonas Levofloxacin GRAM NEGATIVE 1: Susceptible aeruginosa SUSCEPTIBILITY - [facility] Pseudomonas Piperacillin Tazobactam GRAM NEGATIVE 8: Susce ptible aeruginosa SUSCEPTIBILITY - [facility] Pseudomonas Tobramycin GRAM NEGATIVE <=1: Susceptible aeruginosa SUSCEPTIBILITY - [facility] Comment: See Reason(s) for Study Performing Organization Address City/State/ZIP Code Phon e Number [facility] [address] [place], [place] [id number] [place] [address] LAB documented in this encounter Visit Diagnoses Not on filedocumented in this encounter
--- OUTSIDE RECORDS SUMMARY | 2022-02-03 16:03 | XMS_ITS | Encounter Summary ---
:1980 Author Organization [facility] Address [address] [place] [address] Care Team Providers Name Role Phone Unavailable Primary Care Provider Unavailable Encounter Details Date Type Department Care Team Description 06/25/[address] [facility] - Kana Inman MD Only [facility] [place] Radiology Resul ts [address] [facility] [address] [facility] [address] [place] [address] [place], [place] [phone] Social History Tobacco Use Types Packs/Day [...] Priority Date/Time Associated Diagnosis Comme nts CT PELVIS WO 06/25/2018 14:07 Results for this CONTRAST EST procedure are i n the results section. documented in this encounter Results CT PELVIS WO CONTRAST (06/25/2018 14:07 EST) Specimen Narrative [facility] - 06/25/2018 14:10 EST ? EXAM: CAT SCAN/PELVIS WITHOUT CONTRAST ?EX. D/ (1324) ? CLINICAL INFORMATION: ? M79.5, S80.852S FB IN SOFT TISSUE ? 9mm NEEDLE TIP EMBEDDED IN LEFT G ROIN S/P SELF ? INJECTION WKS AGO, UNABLE TO COSME VE IN OR ? POSSIBLY IN BONE OR LEFT HIP JOIN T ? INDICATION: ? M79.5, S80.852S FB IN SOFT TISSUE, 9mm NEEDLE TIP ? EMBEDDED IN LEFT GROIN S/P SELF, INJECTION WKS AGO, UNABLE TO REMOVE ? IN OR, POSSIBLY IN BONE OR LEFT H IP JOINT FOREIGN BODY IN LEFT LOWER ? EXTREMITY ? TECHNIQUE: ??Axial unenhanced gina ging of the pelvis was obtained. MPR ? reconstruction was then performed . ? COMPARISON: CT pelvis 06/25/2017. Plain film 05/16/2018. ? FINDINGS: No clear metallic forei gn body is visible within the left ? inguinal area soft tissues. Left inguinal enlarged lymph nodes are ? noted, with a 1.2 x 1.0 x 1.2 cm node noted (series 2 image 78). ? Extensive stranding is seen adjac ent to the left neurovascular bundle ? (series 2 image 69) in the left i nguinal area. No clear left inguinal ? circumscribed abscess is noted. ? Extensive postoperative change an d a vascular graft is seen in the ? right pelvis groin area. Strandin g is seen adjacent to the ? neurovascular bundle in the right inguinal area. In the area of the ? right inguinal region, multiple e nlarged lymph nodes are seen. This ? includes a low right inguinal nod e measuring approximately 2.9 x 2.0 ? x 1.6 cm (series 2 image 79). Als o there is a oval right inguinal ? node measuring approximately 3.0 x 1.6 x 1.8 cm (series 2 image 68). ? Additional enlarged right inguina l nodes are seen. No clear right ? inguinal abscess is currently det ected. ? In the deep pelvis: The urinary b ladder is decompressed. No clear ? pelvic sidewall adenopathy is not ed. Large amount of colonic stool is ? seen. The pubic rami appear intac t. No bony pelvic abnormality is ? noted. ? IMPRESSION: ? 1. No metallic foreign body in th e left inguinal area detected. ? 2. Bilateral inguinal adenopathy and right lower extremity bypass ? graft. Currently no clear inguina l abscess is visible. ? 3. Persistent ill-defined soft ti ssue adjacent to the neurovascular ? bundle in the inguinal area bilat erally. ? REPORT SIGNED IN OTHER VENDOR SYSTEM 06/25/2018 ?Reported B y: Yan Aguillon MD ? CC: Evelyn Inman ? Transcribed Date/Time: 06/25/2018 (1410) ? Pipeline Inspector: ? Printed Date/Time: 10/20/2018 (23 37) ? PAGE 1 ? Haylee d Report ? Procedure Note Yan Aguillon MD - 03/06/2019 EXAM: CAT SCAN/PELVIS WITHOUT CONTRAST EX. D/ (1324) CLINICAL INFORMATION: M79.5, S80.852S FB IN SOFT TISSUE 9mm NEEDLE TIP EMBEDDED IN LEFT GROIN S /P SELF INJECTION WKS AGO, UNABLE TO REMOVE IN OR POSSIBLY IN BONE OR LEFT HIP JOINT INDICATION: M79.5, S80.852S FB IN SOFT TISSUE, 9mm NEEDLE TIP EMBEDDED IN LEFT GROIN S/P SELF, INJECT ION WKS AGO, UNABLE TO REMOVE IN OR, POSSIBLY IN BONE OR LEFT HIP HARIS NT FOREIGN BODY IN LEFT LOWER EXTREMITY TECHNIQUE: Axial unenhanced imaging of the pelvis was obtained. MPR reconstruction was then performed. COMPARISON: CT pelvis 06/25/2017. Plain film 05/16/2018. FINDINGS: No clear metallic foreign bod y is visible within the left inguinal area soft tissues. Left inguin al enlarged lymph nodes are noted, with a 1.2 x 1.0 x 1.2 cm node n oted (series 2 image 78). Extensive stranding is seen adjacent to the left neurovascular bundle (series 2 image 69) in the left inguina l area. No clear left inguinal circumscribed abscess is noted. Extensive postoperative change and a va scular graft is seen in the right pelvis groin area. Stranding is s een adjacent to the neurovascular bundle in the right ingui nal area. In the area of the right inguinal region, multiple enlarge d lymph nodes are seen. This includes a low right inguinal node jordon uring approximately 2.9 x 2.0 x 1.6 cm (series 2 image 79). Also ther e is a oval right inguinal node measuring approximately 3.0 x 1.6 x 1.8 cm (series 2 image 68). Additional enlarged right inguinal node s are seen. No clear right inguinal abscess is currently detected. In the deep pelvis: The urinary bladder is decompressed. No clear pelvic sidewall adenopathy is noted. La rge amount of colonic stool is seen. The pubic rami appear intact. No bony pelvic abnormality is noted. IMPRESSION: 1. No metallic foreign body in the left inguinal area detected. 2. Bilateral inguinal adenopathy and ri ght lower extremity bypass graft. Currently no clear inguinal absc ess is visible. 3. Persistent ill-defined soft tissue a djacent to the neurovascular bundle in the inguinal area bilaterally . REPORT SIGNED IN OTHER VENDOR SYSTEM 06/25/2018 Reported By: Yan Aguillon MD CC: Evelyn Inman Transcribed Date/Time: 06/25/2018 (1240 ) Pipeline Inspector: Printed Date/Time: 10/20/2018 (9547) PAGE 1 Signed Report Performing Organization Address City/State/ZIP Code Phon e Number [facility] documented in this encounter Visit Diagnoses Not on filedocumented in this encounter
--- OUTSIDE RECORDS SUMMARY | 2022-02-03 16:03 | XMS_ITS | Encounter Summary ---
:1980 Author Organization [facility] Address [address] [place] [address] Care Team Providers Name Role Phone Unavailable Primary Care Provider Unavailable Encounter Details Date Type Department Care Team Description 07/04/2018 Historical Results [facility] - Whitney Blount ra, Only [facility] [place] DPM Results [address] [place], [place] [id number] [place] [id number] (Wo rk) Social History Tobacco Use Types [...] Diagnosis Comme nts NM BONE SCAN 3 07/04/2018 16:34 Results f or this PHASE EST procedure are i n the results section. documented in this encounter Results NM BONE SCAN 3 PHASE (07/04/2018 16:34 EST) Specimen Narrative [facility] - 07/04/2018 16:37 EST ? EXAM: NUCLEAR MEDICINE/BONE SCAN 3 PHASE ??EX. D/ (1508) ? CLINICAL INFORMATION: ? L97.913 NON-PRESSURE CHRONIC ULCE R OF ? UNSPECIFIED PART OF RIGHT LOWER L EG ? WITH NECOROSIS OF MUSCLE ? BONE SCAN 3 PHASE ? Signs and Symptoms/Comments: ??L9 7.913 NON-PRESSURE CHRONIC ULCER OF ? UNSPECIFIED PART OF RIGHT LOWER L EG WITH NECROSIS OF MUSCLE. Chronic ? ulcer right anterior st, ongoin g concern for osteomyelitis. Patient ? cannot have MRI. ? Comparison: Right tibia-fibula ra diographs on 05/22/2018 ? Technique: After the IV injection of 21.0 mCi Tc-99m MDP, immediate ? flow study, blood pool, and delay ed images were obtained of bilateral ? lower legs. ? FINDINGS: ? Flow images demonstrate prompt an d symmetric perfusion of both lower ? legs. ? Blood pool images demonstrate mil dly increased asymmetric soft tissue ? uptake in the right lower leg. ? Delayed images demonstrate modera te focal uptake along the RIGHT mid ? tibial diaphysis, suspicious for osteomyelitis given the known ulcer. ? IMPRESSION: ? 1. ??Moderate focal uptake along the RIGHT mid tibial diaphysis, ? suspicious for osteomyelitis. ? 2. ??Mildly increased asymmetric soft tissue uptake along the RIGHT ? lower leg, suspicious for celluli tis/soft tissue infection. ? REPORT SIGNED IN OTHER VENDOR SYSTEM 07/04/2018 ?Reported B y: Wally Dacosta MD ? CC: Nuha Blount DPM ? Transcribed Date/Time: 07/04/2018 (1637) ? Wastewater Analyst: ? Printed Date/Time: 10/20/2018 (23 37) ? PAGE 1 ? Haylee d Report ? Procedure Note Wally Dacosta MD, MD - 03/06/2019 EXAM: NUCLEAR MEDICINE/BONE SCAN 3 PHAS E EX. D/ (1508) CLINICAL INFORMATION: L97.913 NON-PRESSURE CHRONIC ULCER OF UNSPECIFIED PART OF RIGHT LOWER LEG WITH NECOROSIS OF MUSCLE BONE SCAN 3 PHASE Signs and Symptoms/Comments: L97.913 NO N-PRESSURE CHRONIC ULCER OF UNSPECIFIED PART OF RIGHT LOWER LEG WIT H NECROSIS OF MUSCLE. Chronic ulcer right anterior st, ongoing conc jim for osteomyelitis. Patient cannot have MRI. Comparison: Right tibia-fibula radiogra phs on 05/22/2018 Technique: After the IV injection of 21 .0 mCi Tc-99m MDP, immediate flow study, blood pool, and delayed gina ges were obtained of bilateral lower legs. FINDINGS: Flow images demonstrate prompt and symm etric perfusion of both lower legs. Blood pool images demonstrate mildly in creased asymmetric soft tissue uptake in the right lower leg. Delayed images demonstrate moderate foc al uptake along the RIGHT mid tibial diaphysis, suspicious for osteom yelitis given the known ulcer. IMPRESSION: 1. Moderate focal uptake along the RIGH T mid tibial diaphysis, suspicious for osteomyelitis. 2. Mildly increased asymmetric soft tis marisa uptake along the RIGHT lower leg, suspicious for cellulitis/so ft tissue infection. REPORT SIGNED IN OTHER VENDOR SYSTEM 07/04/2018 Reported By: Wally Dacosta MD CC: Nuha Blount DPM Transcribed Date/Time: 07/04/2018 (7391 ) Wastewater Analyst: Printed Date/Time: 10/20/2018 (7601) PAGE 1 Signed Report Performing Organization Address City/State/ZIP Code Phon e Number [facility] documented in this encounter Visit Diagnoses Not on filedocumented in this encounter
--- OUTSIDE RECORDS SUMMARY | 2022-02-03 16:03 | XMS_ITS | Encounter Summary ---
:1980 Author Organization [facility] Address [address] [place] [address] Care Team Providers Name Role Phone Unavailable Primary Care Provider Unavailable Reason for Referral Radiology Services (3 - 10 Business Days) - Specialty Report Received Specialty Diagnoses / Procedures Referred By Contact Refer red To Contact Diagnoses Foreign body (FB) in soft tissue Foreign body in left lower extremity, sequela Evelyn Inman MD Procedures CT PELVIS (ILIAC CREST TO SYMPHYSIS PUBIS) WO CONTRAST [address] [facility] [address] [place] [address] Referral ID Status Reason Start Date Expiration Date Visits V isits Requested Authorized [id number] Specialty 06/04/2018 09/02/2018 1 1 Report Received Encounter Details Date Type Department Care Team Description 05/31/2018 Orders Only [facility] Evelyn Inman MD Foreign body (FB) in soft tissue (Primar y Dx); General Surgery - [address] Foreign body in left lower extremity, se quela [address] [place], [place] [address] [phone] [place], [place] [id number] Social History Tobacco Use Types Packs/Day Years [...] of this encounter Plan of Treatment Scheduled Orders Name Type Priority Associated Diagnoses Order S chedule CT PELVIS (ILIAC CREST Imaging Routine Foreign body (FB) in Ordered: 05/31/2018 TO SYMPHYSIS PUBIS) WO soft tiss ue CONTRAST Foreign body in left lower extremity, sequela documented as of this encounter Visit Diagnoses Diagnosis Foreign body (FB) in soft tissue - Prima ry Residual foreign body in soft tissue Foreign body in left lower extremity, se quela documented in this encounter
--- OUTSIDE RECORDS SUMMARY | 2022-02-03 16:03 | XMS_ITS | Encounter Summary ---
:1980 Author Organization [facility] Address [address] [place] [address] Care Team Providers Name Role Phone Unavailable Primary Care Provider Unavailable Encounter Details Date Type Department Care Team Description 09/13/2018 Hospital Encounter [phone] [place] [address] (Work) [place] [address] Social History Tobacco Use Types Packs/Day Years [...] Date acetaminophen (TYLENOL) Take 2 Tabs by 0 07/07/19 18 500 mg tablet mouth every 6 hours. buprenorphine-naloxone Place 12 mg under 0 (SUBOXONE) 12-3 mg film the tongue daily. ibuprofen (MOTRIN) 200 mg Take 400 mg by 0 03/12/2019 tablet mouth every 6 hours as needed for Pain. Multivitamins with Take 1 Tab by mouth 0 03/12/2019 Minerals tablet tablet daily. norgestimate-ethinyl Take by mouth. 0 03/12/2019 estradiol (TRI-SPRINTEC, 28, ORAL) documented as of this encounter Discharge Disposition Disposition Code Departure Means Destination Home or Self [place] documented in this encounter Plan of Treatment Not on filedocumented as of this encounter Visit Diagnoses Not on filedocumented in this encounter
--- OUTSIDE RECORDS SUMMARY | 2022-02-03 16:03 | XMS_ITS | Encounter Summary ---
:1980 Author Organization [facility] Address [address] [place] [address] Care Team Providers Name Role Phone Ratna Olivas MD Primary Care Provider Reason for Visit Reason Onset Date Comments Other 06/12/2019 Encounter Details Date Type Department Care Team Description 06/12/2019 Telephone [facility] Sarah Hickey RN Other Orthopedics & Sport [address] [facility] [address], [place], [place] [address] [place] [address] [place] [address] [phone] Social History Tobacco Use Types Packs/Day Years [...] this encounter Miscellaneous Notes Telephone Encounter - Sarah Hickey RN - 06/12/2019 0822 EST Clive called and left a message yesterday evening regarding the 05/23/2019 culture results and wondering about an additional antibiotic as one organism was resistant to keflex. Reviewed with Dr. Dinero and reviewed message from Dr. Gorman which indicated that levofloxacin 750mg q [address] Dniero feels that he definitive treatment for Ms. Odonnell is a revision procedure. Message left this morning with Clive with the above information. Also included that Lindsay did not attend the 05/29/[address] Dinero, wound care and Dr. Gorman, or the appt with Dr. Gorman on 06/02. documented in this encounter Plan of Treatment Not on filedocumented as of this encounter Visit Diagnoses Not on filedocumented in this encounter Care Teams Airplane Dispatch Clerk Relationship Specialty Start Date End Date Ratna Olivas MD PCP - General 03/05/[address] [place] [phone] documented as of this encounter
--- OUTSIDE RECORDS SUMMARY | 2022-02-03 16:03 | XMS_ITS | Encounter Summary ---
:1980 Author Organization [facility] Address [address] [place] [address] Care Team Providers Name Role Phone Ratna Olivas MD Primary Care Provider Encounter Details Date Type Department Care Team Description 05/19/2020 Results Only Imaging [facility] - Sandra Aggarwal ie [facility] [place] Resul shira Ellington MD [address] [phone] (Wo rk) Social History Tobacco Use Types [...] Diagnosis Comme nts XR CHEST 1 VIEW 05/19/2020 16:42 EST Resu lts for this procedure are i n the results section. documented in this encounter Results XR CHEST 1 VIEW (05/19/2020 16:42 EST) Specimen Narrative [facility] - 05/19/2020 16:42 EST ? EXAM: RADIOLOGY/CHEST-PORTABLE ?EX. D/ (1627) ? CLINICAL INFORMATION: ? central line placement ? PROCEDURE INFORMATION: ? Exam: XR Chest, 1 View ? Exam date and time: 05/19/2020 12: 00 AM ? Age: 39 years old ? Clinical indication: Other vascul ar access device placement or ? adjustment; Other: Central line p lacement ? TECHNIQUE: ? Imaging protocol: XR of the chest ? Views: 1 view. ? COMPARISON: ? CR CHEST-PORTABLE 09/17/2018 3:26 PM ? FINDINGS: ? Tubes, catheters and devices: Rig ht internal jugular venous ? catheter with tip projecting over the SVC. ? Lungs: Unremarkable. No consolida tion. ? Pleural space: Unremarkable. No p leural effusion. No ? pneumothorax. ? Heart/Mediastinum: Unremarkable. No cardiomegaly. ? Bones/joints: Unremarkable. ? IMPRESSION: ? No acute findings. ? REPORT SIGNED IN OTHER VENDOR SYSTEM 05/19/2020 ?Reported B y: Tennille Mcmullen MD ? CC: Karie Dinero MD ? Transcribed Date/Time: 05/19/2020 (164) ? Garage Door Opener Installer: ? Printed Date/Time: 05/19/2020 (16 42) ? PAGE 1 ? Haylee d Report ? Procedure Note Tennille Mcmullen MD - 05/19/2020 EXAM: RADIOLOGY/CHEST-PORTABLE EX. D/ (1627) CLINICAL INFORMATION: central line placement PROCEDURE INFORMATION: Exam: XR Chest, 1 View Exam date and time: 05/19/2020 12:00 AM Age: 39 years old Clinical indication: Other vascular acc ess device placement or adjustment; Other: Central line placeme nt TECHNIQUE: Imaging protocol: XR of the chest Views: 1 view. COMPARISON: CR CHEST-PORTABLE 09/17/2018 3:26 PM FINDINGS: Tubes, catheters and devices: Right int ernal jugular venous catheter with tip projecting over the S VC. Lungs: Unremarkable. No consolidation. Pleural space: Unremarkable. No pleural effusion. No pneumothorax. Heart/Mediastinum: Unremarkable. No car diomegaly. Bones/joints: Unremarkable. IMPRESSION: No acute findings. REPORT SIGNED IN OTHER VENDOR SYSTEM 05/19/2020 Reported By: Tennille Mcmullen MD CC: Karie Dinero MD Transcribed Date/Time: 05/19/2020 (351 ) Garage Door Opener Installer: Printed Date/Time: 05/19/2020 (6342) PAGE 1 Signed Report Performing Organization Address City/State/ZIP Code Phon e Number [facility] documented in this encounter Visit Diagnoses Not on filedocumented in this encounter Care Teams Liner Worker Relationship Specialty Start Date End Date Ratna Olivas MD PCP - General 03/05/[address] [place] [phone] documented as of this encounter
--- OUTSIDE RECORDS SUMMARY | 2022-02-03 16:03 | XMS_ITS | Encounter Summary ---
:1980 Author Organization [facility] Address [address] [place] [address] Care Team Providers Name Role Phone Unavailable Primary Care Provider Unavailable Encounter Details Date Type Department Care Team Description 09/16/2018 Historical Results [facility] - Nivia Bui [facility] Radiology Resul shira Mckinney DO [address] [place], [place] [address] [place] [address] [phone] Social History Tobacco Use Types Packs/Day [...] Procedure Name Priority Date/Time Associated Comments Diagnosis US EXTREMITY 09/16/2018 9:05 Results for this EDT procedure are i n the results section. COMPLETE BLOOD COUNT Routine 09/16/2018 9:00 Resu lts for this WITH DIFFERENTIAL EDT procedure are in (AUTO) the results section. MAGNESIUM Routine 09/16/2018 9:00 Results for this EDT procedure are i n the results section. BASIC METABOLIC PANEL Routine 09/16/2018 9:00 Res ults for this (BMP) EDT procedure are i n the results section. documented in this encounter Results US EXTREMITY (09/16/2018 9:05 EDT) Specimen Narrative [facility] - 09/16/2018 9:08 EDT ? EXAM: ULTRASOUND/DOPPLER VEIN EXTREMITY L EX. D/ (0854) ? CLINICAL INFORMATION: ? SLLL - Swelling left lower extr. ? DOPPLER VEIN EXTREMITY LT ? Signs and Symptoms/Comments: ??SL LL - Swelling left lower extr. ? Comparison: 06/26/2017 ? Technique: Left lower extremity v enous Doppler ultrasound was ? performed. ? FINDINGS: ? There is complete compressibility , normal color Doppler flow, and ? normal flow augmentation in the l eft common femoral, superficial ? femoral, profunda femoris, greate r saphenous and popliteal veins. The ? visible veins of the calf demonst rate normal color Doppler flow. ? IMPRESSION: ? No sonographic evidence of DVT in the left lower extremity. ? REPORT SIGNED IN OTHER VENDOR SYSTEM 09/16/2018 ?Reported B y: Luke Storey MD ? CC: Karie Dinero MD ? Transcribed Date/Time: 09/16/2018 (09) ? Brood Hatchery Manager: ? Printed Date/Time: 01/15/2019 (17 12) ? PAGE 1 ? Haylee d Report ? Procedure Note Luke Storey E - 03/04/2019 EXAM: ULTRASOUND/DOPPLER VEIN EXTREMITY L EX. D/ (0854) CLINICAL INFORMATION: SLLL - Swelling left lower extr. DOPPLER VEIN EXTREMITY LT Signs and Symptoms/Comments: SLLL - Swe lling left lower extr. Comparison: 06/26/2017 Technique: Left lower extremity venous Doppler ultrasound was performed. FINDINGS: There is complete compressibility, norm al color Doppler flow, and normal flow augmentation in the left co mmon femoral, superficial femoral, profunda femoris, greater saph enous and popliteal veins. The visible veins of the calf demonstrate n ormal color Doppler flow. IMPRESSION: No sonographic evidence of DVT in the l eft lower extremity. REPORT SIGNED IN OTHER VENDOR SYSTEM 09/16/2018 Reported By: Luke Storey MD CC: Kaire Dinero MD Transcribed Date/Time: 09/16/2018 (907 ) Brood Hatchery Manager: Printed Date/Time: 01/15/2019 (1785) PAGE 1 Signed Report Performing Organization Address City/State/ZIP Code Phon e Number [facility] MAGNESIUM (09/16/2018 9:00 EDT) Pathologist Sig nature Magnesium 1.80 1.7 - 2.8 mg/dL [facility] R LAB Specimen Narrative [facility] - 019 9:37 EDT Does PT Have a Latex Allergy? NO Performing Organization Address City/State/ZIP Code Phon e Number [facility] [address] LAB BASIC METABOLIC PANEL (BMP) (09/16/2018 9:00 EDT) BUN - [facility] 20 10 - 26 mg/dL [facility] CALCIUM - [facility] 8.7 8.5 - 10.5 [facility] mg/dL [facility] Chloride 99 96 - 110 [facility] mmol/L [facility] CO2 Total 32 22 - 32 mEq/L [facility] CREATININE 0.77 0.52 - 1.04 [facility] mg/dL [facility] eGFR >60 [facility] Comment: [facility] Chronic renal impairment is defined as GFR <60 Multiply result by 1.210 for patients . eGFR calculated using the IDMS-traceable MDRD Study Equation. ??(effective 03/02/2014) Anion Gap 7 0 - 18 [facility] GLUCOSE - [facility] 75 70 - 100 mg/dL [facility] Potassium 4.5 3.5 - 5.0 [facility] mEq/L [facility] Sodium 138 136 - 145 [facility] mEq/L [facility] Specimen Narrative [facility] - 019 9:37 EDT Does PT Have a Latex Allergy? NO Performing Organization Address City/State/ZIP Code Phon e Number [facility] [address] LAB (ABNORMAL) COMPLETE BLOOD COUNT WITH DIFFERENTIAL (AUTO) (09/16/2018 9:00 EDT) Pathologist Sig nature ABSOLUTE NEUTROPHIL 3.5 2.2 - 8.85 [facility] COUN - [facility] 10e3/uL CENTER LAB BASO # - [facility] 0.03 0.01 - 0.11 [facility] 10e/uL CENTER LAB BASO % - [facility] 1 0 - 2 % [facility] EOS # - [facility] 0.15 0.03 - 0.61 [facility] 10e3/ul CENTER LAB EOS % - [facility] 3 0 - 5 % [facility] GRAN % - [facility] 72.3 40 - 80 % [facility] HEMATOCRIT - [facility] 31.4 (L) 34.9 - 44.4 % [facility] HEMOGLOBIN - [facility] 9.7 (L) 11.6 - 15.2 [facility] g/dl [facility] IG# - [facility] 0.05 0 - 0.7 10e3/uL [facility] IG% - [facility] 1.0 (H) 0 - 0.9 % [facility] LYMPH # - [facility] 0.8 (L) 1.09 - 3.3 [facility] 10e3/ul [facility] LYMPH% - [facility] 15.9 (L) 20 - 40 % [facility] MEAN CORPUSCULAR HGB 26.1 (L) 26.7 - 33.[address] [facility] ME D - [facility] CENTER LAB MEAN CORPUSCULAR HGB 30.9 (L) 32.1 - 35.9 [facility] CONC - [facility] g/dL CENTER LAB MEAN CELL VOLUME - 84.6 81 - 98 fl [facility] CENTER LAB MONO # - [facility] 0.4 0.1 - 0.8 [facility] 10e3/uL [facility] MONO% - [facility] 7.1 0 - 12 % [facility] PLATELET COUNT 319 141 - 377 [facility] 10e3/ul [facility] RED BLOOD COUNT - 3.71 (L) 3.86 - 5.04 [facility] 10e3/ul [facility] RED CELL DISTRI WIDTH 17.8 <14.7 % [facility] WHITE BLOOD COUNT - 4.9 4.0 - 12.4 [facility] 10e3/ul [facility] Specimen Performing Organization Address City/State/ZIP Code Phon e Number [facility] [address] [place], [place] [id number] [place] [address] LAB documented in this encounter Visit Diagnoses Not on filedocumented in this encounter
--- OUTSIDE RECORDS SUMMARY | 2022-02-03 16:03 | XMS_ITS | Encounter Summary ---
:1980 Author Organization [facility] Address [address] [place] [address] Care Team Providers Name Role Phone Unavailable Primary Care Provider Unavailable Encounter Details Date Type Department Care Team Description 05/22/2018 Historical Results [facility] - Whitney Blount ra, Only [facility] Radiology DPM Results [address] [place], [place] [phone] [place] [phone] (Wo rk) Social History Tobacco Use Types [...] Priority Date/Time Associated Diagnosis Comme nts XR TIBIA FIBULA 05/22/2018 12:32 Results for this RIGHT 2 VIEWS EST procedure are in the results section. documented in this encounter Results XR TIBIA FIBULA RIGHT 2 VIEWS (05/22/2018 12:32 EST) Specimen Narrative [facility] - 05/22/2018 12:35 EST ? EXAM: RADIOLOGY/LOWER LEG RIGHT 2 VIEW ?EX. D/ (1055) ? CLINICAL INFORMATION: ? L97.913 NON-PRESSURE CHRONIC ULCE R OF UNSPECIFIED PART OF RIGHT LOWER ? LEG ? INDICATION: L97.913 NON-PRESSURE CHRONIC ULCER OF UNSPECIFIED PART OF ? RIGHT LOWER, LEG RT LEG ULCER ? TECHNIQUE: Two-view right tibia/f ibula. ? COMPARISON: None. ? FINDINGS: There is an ulcer at th e medial aspect of the right leg. ? The adjacent tibia is intact. The re is no abnormal periosteal ? reaction. The mineralization is n ormal. ? IMPRESSION: ? Right leg ulcer. No findings sugg estive of osteomyelitis. ? REPORT SIGNED IN OTHER VENDOR SYSTEM 05/22/2018 ?Reported B y: Luke Storey MD ? CC: ? Transcribed Date/Time: 05/22/2018 (1235) ? Revenue Integrity Analyst: ? Printed Date/Time: 10/20/2018 (12 13) ? PAGE 1 ? Haylee d Report ? Procedure Note Luke Storey MD - 03/06/2019 EXAM: RADIOLOGY/LOWER LEG RIGHT 2 VIEW EX. D/ (1055) CLINICAL INFORMATION: L97.913 NON-PRESSURE CHRONIC ULCER OF U NSPECIFIED PART OF RIGHT LOWER LEG INDICATION: L97.913 NON-PRESSURE CHRONI C ULCER OF UNSPECIFIED PART OF RIGHT LOWER, LEG RT LEG ULCER TECHNIQUE: Two-view right tibia/fibula. COMPARISON: None. FINDINGS: There is an ulcer at the medi al aspect of the right leg. The adjacent tibia is intact. There is no abnormal periosteal reaction. The mineralization is normal. IMPRESSION: Right leg ulcer. No findings suggestive of osteomyelitis. REPORT SIGNED IN OTHER VENDOR SYSTEM 05/22/2018 Reported By: Luek Storey MD CC: Transcribed Date/Time: 05/22/2018 (3400 ) Revenue Integrity Analyst: Printed Date/Time: 10/20/2018 (7962) PAGE 1 Signed Report Performing Organization Address City/State/ZIP Code Phon e Number [facility] documented in this encounter Visit Diagnoses Not on filedocumented in this encounter
--- OUTSIDE RECORDS SUMMARY | 2022-02-03 16:03 | XMS_ITS | Encounter Summary ---
:1980 Author Organization [facility] Address [address] [place] [address] Care Team Providers Name Role Phone Unavailable Primary Care Provider Unavailable Encounter Details Date Type Department Care Team Description 09/18/2018 Historical Results [facility] - Nivia Bui [place] Lab - Main [place] us Faye DO 130 [facility] 130 [place], [place] [address] [place] [address] [phone] Social History Tobacco Use Types Packs/Day [...] Associated Comments Diagnosis COMPLETE BLOOD COUNT Routine 09/18/2018 6:00 Resu lts for this WITH DIFFERENTIAL EDT procedure are in (AUTO) the results section. MAGNESIUM Routine 09/18/2018 6:00 Results for this EDT procedure are i n the results section. BASIC METABOLIC PANEL Routine 09/18/2018 6:00 Res ults for this (BMP) EDT procedure are i n the results section. documented in this encounter Results MAGNESIUM (09/18/2018 6:00 EDT) Pathologist Sig nature Magnesium 2.00 1.7 - 2.8 mg/dL [facility] R LAB Specimen Performing Organization Address [facility] Phon e Number [facility] [address] LAB (ABNORMAL) BASIC METABOLIC PANEL (BMP) (09/18/2018 6:00 EDT) BUN - [place] 14 10 - 26 mg/dL [facility] CALCIUM - [place] 8.2 (L) 8.5 - 10.5 [facility] mg/dL [facility] LAB Chloride 101 96 - 110 [facility] mmol/L [facility] LAB CO2 Total 28 22 - 32 mEq/L [facility] CREATININE 0.76 0.52 - 1.04 [facility] mg/dL [facility] LAB eGFR >60 [facility] Comment: [facility] LAB Chronic renal impairment is defined as GFR <60 Multiply result by 1.210 for patients . eGFR calculated using the IDMS-traceable MDRD Study Equation. ??(effective 03/02/2014) Anion Gap 9 0 - 18 [facility] GLUCOSE - [place] 112 (H) 70 - 100 mg/dL [facility] Potassium 3.7 3.5 - 5.0 [facility] mEq/L [facility] Sodium 138 136 - 145 [facility] mEq/L [facility] LAB Specimen Performing Organization Address [facility] Phon e Number [facility] [address] [place] [phone] [facility] LAB (ABNORMAL) COMPLETE BLOOD COUNT WITH DIFFERENTIAL (AUTO) (09/18/2018 6:00 EDT) ABSOLUTE NEUTROPHIL 3.0 2.2 - 8.85 [facility] COUN - [facility] 10e3/uL MED [facility]ENTER LAB BASO # - [facility] 0.02 0.01 - 0.11 [facility] 10e/uL [facility]ENTER LAB BASO % - [facility] 0 0 - 2 % [facility] EOS # - [facility] 0.17 0.03 - 0.61 [facility] 10e3/ul [facility] EOS % - [facility] 4 0 - 5 % [facility] GRAN % - [facility] 64.9 40 - 80 % [facility] HEMATOCRIT - [facility] 24.5 (L) 34.9 - 44.4 % [facility] Comment: MED [facility]ENTER LAB Result called to ANJU PIEDRA IN ICU 09/18/18 0716: Result called by LETTY HEMOGLOBIN - [facility] 7.4 (L) 11.6 - 15.2 [facility] Comment: g/dl [facility] Result called to ANJU PIEDRA IN ICU 09/18/18 0716: Result called by LETTY IG# - [facility] 0.03 0 - 0.7 [facility] 10e3/uL [facility] IG% - [facility] 0.6 0 - 0.9 % [facility] LYMPH # - [facility] 0.9 (L) 1.09 - 3.3 [facility] 10e3/ul [facility] LYMPH% - [facility] 19.4 (L) 20 - 40 % [facility] MEAN CORPUSCULAR HGB 26.1 (L) 26.7 - 33.3 pg [facility] - [facility] LAB MEAN CORPUSCULAR HGB 30.2 (L) 32.1 - 35.9 [facility] CONC - [facility] g/dL [facility] MEAN CELL VOLUME - 86.3 81 - 98 fl [facility] MONO # - [facility] 0.5 0.1 - 0.8 [facility] 10e3/uL [facility] MONO% - [facility] 11.1 0 - 12 % [facility] PLATELET COUNT 299 141 - 377 [facility] 10e3/[facility] LAB RED BLOOD COUNT - 2.84 (L) 3.86 - 5.04 [facility] 10e3/ul [facility] LAB RED CELL DISTRI 17.6 <14.7 % [facility] WIDTH - [facility] LAB WHITE BLOOD COUNT - 4.7 4.0 - 12.4 [facility] 10e3/ul [facility] LAB Specimen Performing Organization Address City/State/ZIP Code Phon e Number [facility] [address] LAB documented in this encounter Visit Diagnoses Not on filedocumented in this encounter
--- OUTSIDE RECORDS SUMMARY | 2022-02-03 16:03 | XMS_ITS | Encounter Summary ---
:1980 Author Organization [facility] Address [address] [place] [address] Care Team Providers Name Role Phone Ratna Olivas MD Primary Care Provider Encounter Details Date Type Department Care Team Description 06/19/2018 Historical Results [facility] - Whitney Blount ra, Only [facility] - Main [address] [place], [place] [id number] [place] [phone] (Wo rk) Social History Tobacco Use Types [...] Name Priority Date/Time Associated Diagnosis Comme nts ROUTINE CULTURE - Routine 06/19/2018 10:33 Result s for this [facility] EST procedure are i n the results section. documented in this encounter Results ROUTINE CULTURE - [facility] (06/19/2018 10:33 EST) Pathologist Sig nature LIBRADOIA STUARTII - PRVST [facility] ME D [facility] QUANT - [facility] BROTH ONLY [facility] Specimen Performing Organization Address City/State/ZIP Code Phon e Number [facility] [address] [place] [address] [facility] documented in this encounter Visit Diagnoses Not on filedocumented in this encounter Care Teams Wood Carver Relationship Specialty Start Date End Date Ratna Olivas MD PCP - General 03/05/[address] [phone] documented as of this encounter
--- OUTSIDE RECORDS SUMMARY | 2022-02-03 16:03 | XMS_ITS | Encounter Summary ---
:1980 Author Organization [facility] Address [address] [place] [address] Care Team Providers Name Role Phone Ratna Olivas MD Primary Care Provider Encounter Details Date Type Department Care Team Description 05/23/2019 Historical Results [facility] - Drew Hernandez, Only [facility] - Main [facility] [address] [id number] [place] [address] Social History Tobacco Use Types [...] Name Priority Date/Time Associated Diagnosis Comme nts ANAEROBIC CULTURE - Routine 05/23/2019 12:48 Resu lts for this [facility] EST procedure are i n the results section. documented in this encounter Results ANAEROBIC CULTURE - [facility] (05/23/2019 12:48 EST) Anaerobe Culture [facility] Anaerobe Culture NO ANAEROBES ISOLATED [facility] IN 48 HOURS [facility] Anaerobe Culture SINGLE SWAB [facility] SUBMITTED; CULTURE [facility] INOCULATED THEN SMEARS MADE MIXED ORGANISMS - [facility] WBC [facility] GRAM STAIN - [facility] The mecA gene product was NOT detected in this coagulase [facility] positive Staph isolate. It is SUSCEPTIBLE to oxacillin , [facility] cephalosporins and other beta lactam antibiotics. STAPHYLOCOCCUS SP STAPHYLOCOCCUS SP [facility] COAG POSITIVE - [facility] COAG POS [facility] QUANT - [facility] PSEUDOMONAS PSEUDOMONAS [facility] AERUGINOSA - [facility] AERUGINOSA [facility] QUANT - [facility] Specimen Organism Antibiotic Method Susceptibility Staphylococcus sp coag Clindamycin GRAM POSITIVE <=0.25: R esistant pos SUSCEPTIBILITY - [facility] Staphylococcus sp coag Erythromycin GRAM POSITIVE 1: Interm ediate pos SUSCEPTIBILITY - [facility] Staphylococcus sp coag Levofloxacin GRAM POSITIVE 4: Interm ediate pos SUSCEPTIBILITY - [facility] Staphylococcus sp coag Oxacillin GRAM POSITIVE <=0.25: S usceptible pos SUSCEPTIBILITY - [facility] Staphylococcus sp coag Trimethoprim-Sulfame GRAM POSITIVE <=10 : Susceptible pos thoxazole SUSCEPTIBILITY - [facility] Staphylococcus sp coag Tetracycline GRAM POSITIVE <=1: Susc eptible pos SUSCEPTIBILITY - [facility] Staphylococcus sp coag Vancomycin GRAM POSITIVE <=0.5: Bryant sceptible pos SUSCEPTIBILITY - [facility] Comment: 4 WEEK FOLLOW UP RIGHT LE AMPUT ATION, PT. SCHEDU Pseudomonas Ceftazidime GRAM NEGATIVE 4: Susceptible aeruginosa SUSCEPTIBILITY - [facility] Pseudomonas Ciprofloxacin GRAM NEGATIVE <=0.25: Suscepti ble aeruginosa SUSCEPTIBILITY - [facility] Pseudomonas Cefepime GRAM NEGATIVE 8: Susceptible aeruginosa SUSCEPTIBILITY - [facility] Pseudomonas Gentamicin GRAM NEGATIVE 4: Susceptible aeruginosa SUSCEPTIBILITY - [facility] Pseudomonas Imipenem GRAM NEGATIVE 2: Susceptible aeruginosa SUSCEPTIBILITY - [facility] Pseudomonas Levofloxacin GRAM NEGATIVE 1: Susceptible aeruginosa SUSCEPTIBILITY - [facility] Pseudomonas Piperacillin GRAM NEGATIVE 8: Susceptible aeruginosa Tazobactam SUSCEPTIBILITY - [facility] Pseudomonas Tobramycin GRAM NEGATIVE <=1: Susceptible aeruginosa SUSCEPTIBILITY - [facility] Comment: 4 WEEK FOLLOW UP RIGHT LE [place] BLOOM, PT. SCHEDU Performing Organization Address City/State/ZIP Code Phon e Number [facility] [address] [place], [place] [phone] [place] [address] LAB documented in this encounter Visit Diagnoses Not on filedocumented in this encounter Care Teams Home Housekeeper Relationship Specialty Start Date End Date Ratna Olivas MD PCP - General 03/05/[address] [place] [phone] documented as of this encounter
--- OUTSIDE RECORDS SUMMARY | 2022-02-03 16:03 | XMS_ITS | Encounter Summary ---
:1980 Author Organization [facility] Address [address] [place] [address] Care Team Providers Name Role Phone Ratna Olivas MD Primary Care Provider Encounter Details Date Type Department Care Team Description 06/24/2018 Historical Results [facility] - Whitney Blount ra, Only [facility] - Main [address] [place], [place] [phone] [place] [phone] (Wo rk) Social History Tobacco Use Types [...] Procedure Name Priority Date/Time Associated Comments Diagnosis GRAM NEGATIVE Routine 06/24/2018 7:31 Results for this SUSCEPTIBILITY - [facility] EST proced ure are in the results section. documented in this encounter Results (ABNORMAL) GRAM NEGATIVE SUSCEPTIBILITY - [facility] (06/24/2018 7:31 EST) Pathologist Sig nature Ampicillin/Sulbactam - 4 (S) [facility] ME D [facility] Ampicillin - [facility] <=2 (R) [facility] CEFTRIAXONE - CV <=1 (S) [facility] Cefazolin >=64 (R) [facility] Ciprofloxacin 1 (S) [facility] Cefepime <=1 (S) [facility] GENTAMICIN - CV <=1 (R) [facility] Imipenem <=0.25 (S) [facility] Levofloxacin 1 (S) [facility] Piperacillin Tazobactam <=4 (S) [facility] Trimethoprim/Sulfamethox <=20 (S) [facility] LAB TOBRAMYCIN - [facility] <=1 (R) [facility] Specimen Performing Organization Address City/State/ZIP Code Phon e Number [facility] [address] [place] [address] [facility] documented in this encounter Visit Diagnoses Not on filedocumented in this encounter Care Teams Glassware Selector Relationship Specialty Start Date End Date Ratna Olivas MD PCP - General 03/05/[address] [phone] documented as of this encounter
--- OUTSIDE RECORDS SUMMARY | 2022-02-03 16:03 | XMS_ITS | Encounter Summary ---
:1980 Author Organization [facility] Address [address] [place] [address] Care Team Providers Name Role Phone Ratna Olivas MD Primary Care Provider Encounter Details Date Type Department Care Team Description 05/18/2020 Results Only [facility] - [facility] Karie Dinero [employer] [facility] [address] [address] [address] [place] [phone] (Wo rk) Social History Tobacco Use [...] Procedure Name Priority Date/Time Associated Diagnosis Comme [facility] SURGICAL PATHOLOGY Routine 05/18/2020 Results f or this procedure are i n the results section . documented in this encounter Results SURGICAL PATHOLOGY (05/18/2020) Specimen Narrative [facility] - 021 12:31 EST Name: LINDSAY JEAN BAPTISTE ?: [birth year] ?Age/Sex: 39/F ?Unit#: [id number] ? Loc: SDS ? Status: DEP SDC ?? Reg Date: 05/19/20 ? Pt.Phone Number : ? Specimen: [id number] ?ST ATUS: SOUT ?Spec Date:05/18/20 ? Physician Copies: ?Karie Dinero MD ? Tissues: A ?? Bone biopsy (RIGHT LEG #1) ? Deisy,Ratna ? B ?? Bone biopsy (RIGHT LEG #2) ? CPT: 17422 ?? Units: ??2 ? [address]1948 ? 2 ?FINAL DIAGNOSIS ? A. ??SOFT TISSUE OF LEG (#1), RIG HT, BIOPSY; ? - Fragments of benign fibroconnec tive tissue and granulation tissue with ? acute and chronic inflammation , siderophages and reactive changes. ? B. ??BONE AND SOFT TISSUE OF LEG (#2), RIGHT, BIOPSY; ? - Fragments of fibroconnective ti ssue and embedded bits of degenerative bone ? with acute and chronic inflamm ation, siderophages and reactive changes. ? - Separate larger piece of viable bone with no evident osteomyelitis. ? GROSS DESCRIPTION ? A. ??The specimen is received lorelei Lindsay Mancuso and right leg ? #1 (initially sent to [facility] for cultures). ??The remaining tissue ? fragment consists of two portions of givens fibrous tissue measuring 1.7 x 0.8 x ? 0.4 cm in aggregate; serially sec tioned and entirely submitted as A. ? B. ??The specimen is received lorelei labeled Lindsay Jean Baptiste and right leg ? #2 (initially sent to [facility] for cultures). ??The remaining tissue ? consists of a 1.4 x 0.9 x 0.6 cm portion of givens fibrous tissue and bony ? fragments. ??The specimen is seri ally sectioned and entirely submitted as B, ? following decalcification. ??PV Signed ____(signature on file)____ Jaimee Easton M.D. 05/24/20 By the signature above, the attending ph ysician certifies that he/she has personally conducted a gross and/or microscopic exa mination of the described specimens and rendered or confirmed the above diagnosi s. Test Performed by [facility], [address] [place] [address] Multimedia Authoring Specialist: Jaimee Silvestre MD PHD Performing Organization Address City/State/[facility] Code Phon e Number [facility] [address] [place], [place] [phone] documented in this encounter Visit Diagnoses Not on filedocumented in this encounter Care Teams Roof Bolter Relationship Specialty Start Date End Date Ratna Olivas MD PCP - General 03/05/[address] [place] [phone] documented as of this encounter
--- OUTSIDE RECORDS SUMMARY | 2022-02-03 16:03 | XMS_ITS | Encounter Summary ---
:1980 Author Organization [facility] Address [address] [place] [address] Care Team Providers Name Role Phone Ratna Olivas MD Primary Care Provider Encounter Details Date Type Department Care Team Description 05/31/2018 Historical Results [facility] - Kana Inman MD Only [facility] [address] [facility] [address] [facility] [address] [place] [address] [place], [place] [phone] Social History Tobacco Use Types Packs/Day [...] Name Priority Date/Time Associated Diagnosis Comme nts [place] C-ARM 0-1 HOUR 05/31/2018 7:11 EST Res ults for this procedure are i n the results section. documented in this encounter Results [place] C-ARM 0-1 HOUR (05/31/2018 7:11 EST) Specimen Narrative [facility] - 05/31/2018 7:14 EST ? EXAM: RADIOLOGY/C-ARM ORTHOPEDICS 0-1 HR ??EX. D/ (1720) ? CLINICAL INFORMATION: ? REMOVAL OF LEFT GROIN FOREIGN BOD Y ? Procedure: C-arm fluoroscopy. ? Technique: C-arm fluoroscopy was provided to Dr. Evelyn Inman for ? removal of a foreign body. ? Fluoroscopy time: 29.6 seconds.. ? REPORT SIGNED IN OTHER VENDOR SYSTEM 05/31/2018 ?Reported B y: Luke Storey MD ? CC: Evelyn Inman ? Transcribed Date/Time: 05/31/2018 (0714) ? Curing Room Supervisor: ? Printed Date/Time: 10/20/2018 (12 13) ? PAGE 1 ? Haylee d Report ? Procedure Note Luke Storey MD - 03/06/2019 EXAM: RADIOLOGY/C-ARM ORTHOPEDICS 0-1 H R EX. D/ (9910) CLINICAL INFORMATION: REMOVAL OF LEFT GROIN FOREIGN BODY Procedure: C-arm fluoroscopy. Technique: C-arm fluoroscopy was provid ed to Dr. Evelyn Inman for removal of a foreign body. Fluoroscopy time: 29.6 seconds.. REPORT SIGNED IN OTHER VENDOR SYSTEM 05/31/2018 Reported By: Luke Storey MD CC: Evelyn Inman Transcribed Date/Time: 05/31/2018 (0714 ) Curing Room Supervisor: Printed Date/Time: 10/20/2018 (9397) PAGE 1 Signed Report Performing Organization Address City/State/ZIP Code Phon e Number [facility] documented in this encounter Visit Diagnoses Not on filedocumented in this encounter Care Teams Emblem Cutter Relationship Specialty Start Date End Date Ratna Olivas MD PCP - General 03/05/[address] [place] [phone] documented as of this encounter
--- OUTSIDE RECORDS SUMMARY | 2022-02-03 16:03 | XMS_ITS | Encounter Summary ---
:1980 Author Organization [facility] Address [address] [place] [address] Care Team Providers Name Role Phone Ratna Olivas MD Primary Care Provider Encounter Details Date Type Department Care Team Description 05/26/2019 Abstract [facility] - [facility] Monik Gorman MD Infectious Disease [address] [facility] [address] [facility] [address] [place], [place] [id number] [place] [phone] (Wo rk) Social History Tobacco Use [...] documented as of this encounter Progress Notes Monik oGrman MD - 05/26/2019 1319 EST My last note: 03/06/2019 Monik Gorman MD Reason for Appointment 1.??F/u wounds History of Present Illness General:? Outpatient ID follow up ?Lindsay returns today to follow up on her right tibial osteomyelitis, non-healing BKA wounds, and new left first toe wound. Since her last visit she has seen Dermatology and Ortho. Dr. Mckeon diagnosed Lindsay with possible Pyoderma gangrenosum of her left first toe and is treating with topical Betamethasone. Lindsay had decline intralesional kenalog treatment and biopsy due to pain. Oral steroids were not initated since she had recently finished IV abx. She has another follow upin [address] Dinero reported some improvement in her BKA wounds but doubtful they will ever fullyheal without revision. She had a follow up appt this morning and going back after this visit to see wound care. ?Says the toe is the same. No change. But now has some redness with dots going up the Lfoot. Redness started 3-4 days after starting the ointment. Redness is staying the same since it started. Just saw Dr. Dinero. The R leg is looking better - healing slowly. The wounds are getting a little smaller. She's been drinking a lot of water, eating well, protein shakes, stretching, keeping foot up. ? (recent timeline, see full 02/13/19 note for details)--------- ? Lindsay is here to follow up on her RLE non-healing wounds and a new lesion on her L foot. Initial consult note below from when I saw her in the hospital 08/2018 at the time of her amputation. Last seen by me 10/09/18 while at [place]. At that time, she was having persistent drainage from the R stump and was wondering about switching back to IV Cefazolin. She was then on PO Keflex. Pathology had been negative for residual osteo in the tibia, and culture from 09/13 clean end was negative. Culture from 09/17 had CoNS, originally thought to be a contaminant, but with the persistent drainage, we decided to do Linezolid to cover this. Unfortunately insurance wouldn't cover it, so we tried Bactrim instead. Then culture results came back with Pseudomonas, so we switched the Bactrim to Cipro on 10/27/18. After that, she moved up to [facility] and was being see by a new PCP and at [facility]. Further events summarized below: ? - 10/24/18 Diagnosed with LLE DVT, started on Eliquis ? - 10/26/18 Admitted to [facility] for heavy vaginal bleeding and anemia ? - 11/28/18 culture at PCP's office negative, restarted on Cipro x 7 days ? - 12/17/18 [facility] ED with cellulitis. Prescribed Keflex and Bactrim x 7 days as well as clotrimazole/betamethasone cream. Xray with possible osteo at distal tibial stump. ? - 12/18/18 R leg culture with Pseudomonas and MSSA. ? - 12/26/18 f/u with Ortho ([place]): Decided to try 6 weeks of IV antibiotics before committing to further surgical debridement/higher amputation. Cefepime to end 02/09. [place] course of Vancomycin. R subclavian. PCP followed. ? - 01/24/19 Admitted to [facility] with cellulitis of leg and foot. On Vanc/Cefepime. MRI attempted of R stump, but started having burning at R groin where there's a retained needle so test aborted. ? - 01/30/19 Podiatry consult. Recommended continuing topicals for the foot. Patient refused a biopsy due to pain. Recommended ID follow up. ? - 02/13/19 Re-establishe care with me in ID clinic. Done with Vanc/Cefepime. Stump wounds improving but still open. ?- 02/14/19 Saw Dermatology, diagnosed with probable pyoderma gangrenosum and started on topical betamethasone on her L foot. ? ----- ? Abx: ? Zosyn: 09/13-09/14 ? Ertapenem: 09/14-09/18 ? Vanc: 09/13-09/16/18, ?-02/07/19 ? Cipro: 09/23-09/25/18, 10/27-11/05/18, 11/28-12/05/18 ? Cephalexin: 09/25-09/27, 10/03/18-10/09/18, 12/17-12/23/18 ? Cefazolin: 09/27-10/03/18 ? Bactrim: 10/24-10/27/18, 12/17-12/23/18 ? Cefepime: appx 12/29-02/09/19 ? Micro: ? R leg cultures: 09/13 - Neg (GS with + WBCs, no orgs) ? Pathology - no evidence of osteo at clean end ? End of bone culture: 09/17 - Rare CoNS (GS with no WBCs, no orgs) ? * Previous cultures with Pseudomonas, MSSA ? R knee: 10/24/18 - Few PsA ? 11/28/18 RLE (reportedly, we don't have culture) - negative ? R leg wound: 12/18/18 - Mod PsA, Mod PsA #2 (I imipenem), Scant MSSA (GS with + WBCs, rare GPCs) ? L big toe wound culture: 01/25/19 - Rare E.faecalis (R Cipro), rare normal pasha ([facility]) ? R leg wound culture: 01/25/19 - neg ([facility]) ? Radiology: ? Bone scan: 07/04/18 - Moderate focal upteake along the R mid tibial diaphysis suspicious for osteomyelitis ? Tib/Fib Xray: 09/10/18 - R leg ulcer, no evidence of osteo ? Bone scan: 09/25/18 - no evidence of osteo in L tibia. L foot with abnormal signal, possibly representing severe arthropathy. ? RLE Xray ([facility]): 12/17/18 - demineralization diffusely, possible osteomyelitis at distal tibia. Current Medications Taking ?? methocarbamol 500 mg tablet 2 tab(s) orally every 6 hours as neded for spasms ?? trazodone 50 mg tablet 1 tab(s) orally once a day at [facility] for insomnia as needed ?? Eliquis 5 mg tablet 1 orally Take two tablets twice a day first week and then 1 tablet twice a day ?? gabapentin 600 mg tablet 1 tab(s) orally 3 times a day, Notes: 1 in AM, 1 at noon, 2 PM ?? multivitamin Multiple Vitamins capsule 1 cap(s) orally once a day ?? Suboxone 12 mg-3 mg film 1 film(s) sublingually once a day ?? Other medication - - IUD with hormones ?? Betamethasone Dipropionate, Augmented dipropionate, augmented 0.05% ointment 1 mauro applied topicallyto the left toe 2 times a day, Notes: Hasn't picked up rx yet Not-Taking ?? acetaminophen 500 mg tablet 2 tab(s) orally every 6 hours ?? Norethindrone Acetate 5 mg tablet 1 tab(s) orally once a day ?? Suboxone 8 mg-2 mg film 2 film(s) sublingually once a day ?? Suboxone 4 mg-1 mg film 1 film(s) sublingually once a day, Notes: Dr. Valdez ?? ferrous gluconate 324 mg (37.5 mg elemental iron) tablet 1 tab(s) orally once a day Discontinued ?? acetaminophen 500 mg tablet 2 tab(s) orally every 6 hours prn mild pain ?? guaifenesin 100 mg/5 mL liquid 5 mL orally every 4 hours prn cough per standing order ?? lidocaine topical 5% film 1 PATCH applied topically once a day at bedtime (remove in AM) ?? MiraLax - powder for reconstitution 17 g orally once a day ?? Incentive Spirometer - - as directed twice a day ?? celecoxib 200 mg capsule 1 cap(s) orally 2 times a day ?? hydromorphone 2 mg tablet 1 tab orally every 6 hours x 4 doses then d/c (last dose is 10/10 at 1600) ?? Biotene 0.15% paste 1 mauro orally every hour prn ?? bisacodyl 10 mg suppository 1 SUPP(s) rectally once a day prn per bowel protocol ?? Debrox 6.5% solution 5 gtt in each affected ear once a day as needed per protocol ?? lorazepam 1 mg tablet 1 tab(s) orally every 6 hours prn anxiety/spasms x 14 days (stop 10/16) ?? Maalox 128-162-22kj/5ml 1 tbsp (15mL) orally every 4 hours prn gastric distress per standing order ?? Oxygen - gas 2 liters per minute nasal canula prn SOB maintain sats >90% ?? Milk of Magnesia 8% suspension 30 mL orally once a day (at bedtime) - prn bowel protocol ?? naproxen sodium 550 mg tablet 1 tab(s) orally every 8 hours prn ?? Natures Tears preserved solution 1 gtt in each eye every hour prn ?? Fleet Enema 7 g-19 g enema 133 mL rectally once if biscodly is uneffective per bowel protocol ?? Trisprintec 1 tab one tab po daily ?? ibuprofen 200 mg tablet 2-4 tabs orally 3 times a day PRN ?? 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 pyoderma gangrenosum Left great toe infection MSSA 03/14 Chronic iron deficiency anemia, dx 2010 Poor venous access Depression, in remission 10/12 Hepatitis C- Ab positive, neg RNA 07/20/10, 08/06/14 CSA 07/09/14; VPMS 07/23/15; urine drug 07/23/15 HCM: Pap 07/30/13 Right foot and calf abscesses, cellulitis, osteomyelitis 07/14, Dr. Watkins,staph bacteremia, drug induced neutropenia. 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 no Alcohol, never. no Drug use, in treatment for past hx opiate abuse, denies current drug use . Caffeine: coffee, 1 daily. Exercise: yes. no Special diet. Living situation: lives with spouse & kids. Marital/Partner Status: , male partner. Domestic violence screen?? Do you feel safe at home? ??Yes,??Date: ??09/12/2018.??Children: number of daughters: 2 one 7yo and one 15yo. Learning?? Barriers Assessed On: ??09/12/2018,??Does the patient have barriers to learning? ??No.??no Working. no Have living will/durable power of mergers and acquisitions attorney. Allergies NKDA Review of Systems GENERAL:? See HPI??for details.?? Constitutional??negative for fever.?? Ears,nose,mouth,throat??negative.?? Cardiovascular??negative for chest pain.?? Respiratory??negative.?? Gastrointestinal??negative for abdominal pain, nausea, vomiting, diarrhea.?? Musculoskeletal??Positive for RLE pain, less drainage from RLE incision.?? Skin/breast??positive for wound on L foot, very painful.?? Hematologic/lymphatic??Negative for bleeding.?? Allergic/immunologic??negative.? Vital Signs Initials ar, Ht 64.25, BP 94/64, HR 68, Temp oral:98.0, Pain 3/10 toe. Examination General Exam: ? GENERAL APPEARANCE:??no acute distress, pleasant, cooperative.? HEENT??normal.? NECK:??supple.? CHEST:??normal shape and expansion.? LUNGS:??unlabored.? ABDOMEN:??no distention.? EXTREMITIES: ? MUSCULOSKELETAL:??See photos.? SKIN:??See photos. Small erythematous papules on top and medial side of foot - no excoriations.? FACE:??normal.? NEUROLOGIC EXAM:??nonfocal.? PSYCH:??Appropriate.?? Assessments 1. Wound of right lower extremity, sequela - S81.801S (Primary) 2. Hx of right BKA - Z89.511 3. Acute osteomyelitis of right tibia - M86.161 4. Pyoderma gangrenosum - L88 5. Wound of left foot - S91.302A Treatment 1.??Wound of right lower extremity, sequela?? Notes: Going over to wound care after this.? 2.??Hx of right BKA?? Notes: See below.? 3.??Acute osteomyelitis of right tibia?? Notes: Based on Xray imaging 12/17/18 at [facility] that was read as possible osteomyelitis. Now s/p 6 weeks of IV antibiotics. Still with some open wounds. Sounds like wounds are still improving even off antibiotics. So hopefully this will heal and not open back up. Following up with Dr. Dinero in about a mo nth.? 4.??Pyoderma gangrenosum?? Continue Betamethasone Dipropionate, Augmented ointment, dipropionate, augmented 0.05%, 1 mauro, applied topically to the left toe, 2 times a day, Notes: Hasn't picked up rx yet Notes: Now following with Dermatology. Continue topical steroids and f/u with Derm.? 5.??Wound of left foot?? Notes: See above. No change yet, but it may be too early to tell. Will forward note to Derm as FYI.? Follow Up prn (cc to Dr. Mckeon and PCP) Images Examination/General Exam/EXTREMITIES:/[id number] Sign off status: Completed From Ortho note 05/23: Exam of the right lower extremity status post below-knee amputation. The incision along the lateral aspect has a scant amount of purulent drainage and slight amount of erythema extending about a centimeter. There is a retained suture that appears to be FiberWire within the incision. I did attempt to remove it but it was quite painful and well adhered. 05/23/19 Culture: > ROUTINE CULTURE Final 05/25/19-0738 Organism 1 STAPH COAG POS MANY Organism 2 PSEUDOMONAS AERUGINOSA FEW The mecA gene product was NOT detected in this coagulase positive Staph isolate. It is SUSCEPTIBLE to oxacillin, cephalosporins and other beta lactam antibiotics. STAPH POS PS AERUG RX RX TRIMET/SULFAMET S CIPROFLOXACIN S CEFTAZIDIME S LEVOFLOXACIN I S CEFEPIME S CLINDAMYCIN R ERYTHROMYCIN I GENTAMICIN S IMIPENEM S OXACILLIN S PIP/TAZO S TETRACYCLINE S TOBRAMYCIN S VANCOMYCIN S STAPHYLOCOCCUS SP COAG POS: GRAM POSITIVE SUSCEPTIBILITY Tetracycline susceptible Coag positive staph is also susceptible to doxycycline and minocycline. > GRAM STAIN Final 05/23/19-1400 WHITE BLOOD CELLS FEW MIXED ORGANISMS EQUAL QTY FEW SINGLE SWAB SUBMITTED; CULTURE INOCULATED THEN SMEARS MADE > ANAEROBIC CULTURE Final 05/25/19-1122 NO ANAEROBES ISOLATED IN 48 HOURS Monik Gomes MD - 05/26/2019 1319 EST Received message via [employer]: Please review resent notes and lab cultures on Lindsay Odonnell. ??She's seeing Dr Dinero on 05/29/19 to discuss surgical revision. ??I put her on cephalexin prior to the culture results. ??Thanks, ??Carlo Hernandez ??SKY ?? ----- Based on the above information, I would recommend adding PO Levofloxacin 750mg Q24 hours. I will attempt to schedule her to see me on after her appointments with Ortho/Wound care. Message sentback to Carlo Hernandez with this info. documented in this encounter Plan of Treatment Not on filedocumented as of this encounter Visit Diagnoses Not on filedocumented in this encounter Care Teams K 9 Police Officer Relationship Specialty Start Date End Date Ratna Olivas MD PCP - General 03/05/[address] [place] [phone] documented as of this encounter
--- OUTSIDE RECORDS SUMMARY | 2022-02-03 16:03 | XMS_ITS | Encounter Summary ---
:1980 Author Organization [facility] Address [address] [id number] Care Team Providers Name Role Phone Unavailable Primary Care Provider Unavailable Reason for Visit Reason Onset Date Comments Coordination Of Care 10/24/2018 Encounter Details Date Type Department Care Team Description 10/24/2018 Telephone [facility] Charissa Bowman Coordi [facility] Rheumatology & Immunology - [address] [place] [address] Social History Tobacco Use Types Packs/Day Years [...] this encounter Miscellaneous Notes Telephone Encounter - Charissa Bowman RN - 10/24/[address] Dinero back and left a detailed msg in the nurse's line. Informed them of Dr. Edward's message If they would like an immunology work up for recurrent infections then they should be set upwith either Infectious Disease vs Immunology (Dr. Arnold Law is a community Abrasive Water Jet Cutter Operator). If they would specifically like a Rheumatology consult then we can find a time to schedule the patient with our clinic. elephone Encounter - Charissa Bowman RN - 10/24/2018 1109 EDT Received call from Dr Dinero from Orthopedics at [facility]. MD looking for an immunology consult for thispt. Pt has a long complicated history of infectious disease problems, IV drug use, hepc and recent difficult wound management. unsure if there an immunology component of some of pt's ID issues. can be reached at [phone]. documented in this encounter Plan of Treatment Not on filedocumented as of this encounter Visit Diagnoses Not on filedocumented in this encounter
--- OUTSIDE RECORDS SUMMARY | 2022-02-03 16:03 | XMS_ITS | Encounter Summary ---
:1980 Author Organization [facility] Address [address] [place] [address] Care Team Providers Name Role Phone Ratna Olivas MD Primary Care Provider Reason for Visit Reason Onset Date Comments Appointment Related 05/26/2019 Encounter Details Date Type Department Care Team Description 05/26/2019 Telephone [facility] - Nathalia Gorman MD Appointment Related [facility] Infectious Dise ase [address] [facility] [address] [facility] [place], [place] [id number] [place] [address] [phone] (Wo rk) Social History Tobacco Use [...] Telephone Encounter - Chula Rojo RN - 05/26/2019 1713 EST Pt booked at 11:20. I advised she just come up after her ortho appt and we will see her. Telephone Encounter - Monik Gorman MD - 05/26/2019 1330 EST Chula - can we try to schedule Lindsay to see me after her Ortho/Wound care appointments? See abstract message - looks like she may have another infeciton. And she has missed several Derm appointments as well. Thanks. documented in this encounter Plan of Treatment Not on filedocumented as of this encounter Visit Diagnoses Not on filedocumented in this encounter Care Teams Etl Analyst Developer Relationship Specialty Start Date End Date Ratna Olivas MD PCP - General 03/05/[address] [place] [phone] documented as of this encounter
--- OUTSIDE RECORDS SUMMARY | 2022-02-03 16:03 | XMS_ITS | Encounter Summary ---
:1980 Author Organization [facility] Address [address] [place] [address] Care Team Providers Name Role Phone Unavailable Primary Care Provider Unavailable Encounter Details Date Type Department Care Team Description 05/16/2018 Historical Results Only [facility] - [facility] in, [facility] Radiology Resul ts Amarilis Rivera PA-C [address] [place], [place] [id number] [place] [address] [address] [place] [address] Social History Tobacco Use Types Packs/Day Years [...] Priority Date/Time Associated Diagnosis Comme nts XR HIP LEFT 2-3 05/16/2018 15:17 Results for this VIEWS, OPTIONAL EST procedure ar e in PELVIS the results section. XR CHEST 2 VIEWS 05/16/2018 12:10 Results for this EST procedure are i n the results section. ROUTINE CULTURE - Routine 05/16/2018 9:53 EST Res ults for this [facility] procedure are i n the results section. documented in this encounter Results XR HIP LEFT 2-3 VIEWS, OPTIONAL PELVIS (05/16/2018 15:17 EST) Specimen Narrative [facility] RADIOLOGY - 05/16/2018 15:20 EST ? EXAM: RADIOLOGY/HIP LEFT 2-3 VIEWS ?EX. D/ (1506) ? CLINICAL INFORMATION: ? IVDA in L groin, ?retained needle ? INDICATION: IVDA in L groin, ?ret ained needle. ? COMPARISON: None. ? TECHNIQUE: AP, frog-leg and true lateral views of the left hip were ? obtained. ? FINDINGS: ? There is a 9 mm long needle metal lic radiodensity superimposed over ? the medial aspect of the left hip joint consistent with needle ? foreign body. Its exact location is uncertain. Consider limited CT ? scan assessment for evaluation of exact location. ? REPORT SIGNED IN OTHER VENDOR SYSTEM 05/16/2018 ?Reported B y: Nils Reyes MD ? CC: ? Transcribed Date/Time: 05/16/2018 (1520) ? Financial Compliance Examiner: ? Printed Date/Time: 10/20/2018 (12 13) ? PAGE 1 ? Haylee d Report ? Procedure Note Nils Reyes MD - 03/06/2019 EXAM: RADIOLOGY/HIP LEFT 2-3 VIEWS EX. D/ (1506) CLINICAL INFORMATION: IVDA in L groin, ?retained needle INDICATION: IVDA in L groin, ?retained needle. COMPARISON: None. TECHNIQUE: AP, frog-leg and true latera l views of the left hip were obtained. FINDINGS: There is a 9 mm long needle metallic ra diodensity superimposed over the medial aspect of the left hip joint consistent with needle foreign body. Its exact location is unc ertain. Consider limited CT scan assessment for evaluation of exact location. REPORT SIGNED IN OTHER VENDOR SYSTEM 05/16/2018 Reported By: Nils Reyes MD CC: Transcribed Date/Time: 05/16/2018 (1520 ) Financial Compliance Examiner: Printed Date/Time: 10/20/2018 (1213) PAGE 1 Signed Report Performing Organization Address City/State/ZIP Code Phon e Number [facility] RADIOLOGY XR CHEST 2 VIEWS (05/16/2018 12:10 EST) Specimen Narrative [facility] RADI[facility] - 05/16/2018 12:13 EST ? EXAM: RADIOLOGY EXPRESS CARE/EXP CARE INES EX. D/ (1205) ? CLINICAL INFORMATION: ? COUGH X 1 MONTH, THICK GREEN MUCU S ? INDICATION: COUGH X 1 MONTH, THIC K GREEN MUCUS. ? COMPARISON: Chest x-ray 07/30/2017. ? TECHNIQUE: 2 views of the chest w ere obtained. ? FINDINGS: ? The cardiomediastinal silhouette and pulmonary vasculature are within ? normal limits. The lungs are jacqui r. No pleural effusion or ? pneumothorax is seen. Minimal sco liosis of the thoracic and lumbar ? spine. ? IMPRESSION: No acute process. ? REPORT SIGNED IN OTHER VENDOR SYSTEM 05/16/2018 ?Reported B y: Nils Reyes MD ? CC: ? Transcribed Date/Time: 05/16/2018 (7803) ? Financial Compliance Examiner: ? Printed Date/Time: 10/20/2018 (12 13) ? PAGE 1 ? Haylee d Report ? Procedure Note Nils Reyes MD - 03/06/2019 EXAM: RADIOLOGY EXPRESS CARE/EXP CARE C HE EX. D/ (1205) CLINICAL INFORMATION: COUGH X 1 MONTH, THICK GREEN MUCUS INDICATION: COUGH X 1 MONTH, THICK GREE N MUCUS. COMPARISON: Chest x-ray 07/30/2017. TECHNIQUE: 2 views of the chest were ob tained. FINDINGS: The cardiomediastinal silhouette and pu lmonary vasculature are within normal limits. The lungs are clear. No pleural effusion or pneumothorax is seen. Minimal scoliosis of the thoracic and lumbar spine. IMPRESSION: No acute process. REPORT SIGNED IN OTHER VENDOR SYSTEM 05/16/2018 Reported By: Nils Reyes MD CC: Transcribed Date/Time: 05/16/2018 (1213 ) Financial Compliance Examiner: Printed Date/Time: 10/20/2018 (5163) PAGE 1 Signed Report Performing Organization Address City/State/ZIP Code Phon e Number [facility] RADIOLOGY ROUTINE CULTURE - [facility] (05/16/2018 9:53 EST) Culture The mecA gene product was NOT detected in this c oagulase [facility] positive Staph isolate. It is SUSCEPTIBLE to oxacillin , [facility] cephalosporins and other beta lactam antibiotics. STAPHYLOCOCCUS SP STAPHYLOCOCCUS SP [facility] COAG POSITIVE - [facility] COAG POS [facility] QUANT - [facility] USUAL SKIN VIRGIL - USF [facility] QUANT - [facility] Specimen Narrative [facility] - 019 8:03 EST SOURCE: RIGHT INGUINAL Organism Antibiotic Method Susceptibility Staphylococcus sp coag Azithromycin GRAM POSITIVE Susceptib le pos SUSCEPTIBILITY - CV Staphylococcus sp coag Clindamycin GRAM POSITIVE <=0.25: S usceptible pos SUSCEPTIBILITY - CV Staphylococcus sp coag Cefpodoxime GRAM POSITIVE Susceptib le pos SUSCEPTIBILITY - CV Staphylococcus sp coag Cefazolin GRAM POSITIVE Susceptib le pos SUSCEPTIBILITY - CV Staphylococcus sp coag Erythromycin GRAM POSITIVE <=0.25: S usceptible pos SUSCEPTIBILITY - CV Staphylococcus sp coag Levofloxacin GRAM POSITIVE 0.25: Concepcion ceptible pos SUSCEPTIBILITY - CV Staphylococcus sp coag Oxacillin GRAM POSITIVE 0.5: Susc eptible pos SUSCEPTIBILITY - [facility] Staphylococcus sp coag Penicillin GRAM POSITIVE >=0.5: Re sistant pos SUSCEPTIBILITY - CV Staphylococcus sp coag Trimethoprim-Sulfame GRAM POSITIVE <=10 : Susceptible pos thoxazole SUSCEPTIBILITY - [facility] Staphylococcus sp coag Tetracycline GRAM POSITIVE <=1: Susc eptible pos SUSCEPTIBILITY - [facility] Staphylococcus sp coag Vancomycin GRAM POSITIVE <=0.5: Bryant sceptible pos SUSCEPTIBILITY - [facility] Comment: See Reason(s) for Study Performing Organization Address City/State/ZIP Code Phon e Number [facility] [address] [place], [place] [id number] [place] [address] LAB documented in this encounter Visit Diagnoses Not on filedocumented in this encounter
--- OUTSIDE RECORDS SUMMARY | 2022-02-03 16:03 | XMS_ITS | Encounter Summary ---
:1980 Author Organization [facility] Address [address] [place] [address] Care Team Providers Name Role Phone Ratna Olivas MD Primary Care Provider Reason for Visit Reason Onset Date Comments Appointment Related 03/14/2019 Encounter Details Date Type Department Care Team Description 03/14/2019 Telephone [facility] Raven Giron RN Appointment Related Orthopedics & Podiat ry [address] [place] [address] Social History Tobacco Use Types Packs/Day Years [...] this encounter Miscellaneous Notes Telephone Encounter - Joanne Yang - 03/18/2019 1407 EST Patient scheduled for 04/03 with [place] elephone Encounter - Joanne Yang - 03/17/2019 1446 EST I have left a voicemail for Lindsay to call and reschedule. Her following is unavailable due to Thanksgiving. Is it okay to book this out another week? Telephone Encounter - Raven Giron RN - 03/14/2019 1631 EST Patient called stating that she could not make the 03/20 appointment and needs to reschedule. Please reschedule with Delon for the following week. Thanks so much documented in this encounter Plan of Treatment Not on filedocumented as of this encounter Visit Diagnoses Not on filedocumented in this encounter Care Teams Rn X Ray Relationship Specialty Start Date End Date Ratna Olivas MD PCP - General 03/05/[address] [place] [address] [phone] documented as of this encounter
--- OUTSIDE RECORDS SUMMARY | 2022-02-03 16:03 | XMS_ITS | Encounter Summary ---
:1980 Author Organization [facility] Address [address] [place] [address] Care Team Providers Name Role Phone Unavailable Primary Care Provider Unavailable Encounter Details Date Type Department Care Team Description 09/23/2018 Historical Results [facility] - Chepe Ayala [facility] - Main Garland Watson MD [id number] [place] [address] [address] [place], [place] [address] (Wo rk) Social History Tobacco Use Types [...] Associated Comments Diagnosis COMPLETE BLOOD COUNT Routine 09/23/2018 12:23 Res ults for this WITH DIFFERENTIAL EDT procedure are in (AUTO) the results section. documented in this encounter Results (ABNORMAL) COMPLETE BLOOD COUNT WITH DIFFERENTIAL (AUTO) (09/23/2018 12:23 EDT) Pathologist Sig nature ABSOLUTE NEUTROPHIL 4.0 2.2 - 8.85 [facility] - [facility] 10e3/uL [facility] BASO # - [facility] 0.02 0.01 - 0.11 [facility] 10e/uL [facility] BASO % - [facility] 0 0 - 2 % [facility] EOS # - [facility] 0.20 0.03 - 0.61 [facility] 10e3/ul [facility] EOS % - [facility] 4 0 - 5 % [facility] GRAN % - [facility] 75.4 40 - 80 % [facility] HEMATOCRIT - [facility] 24.7 (L) 34.9 - 44.4 % [facility] HEMOGLOBIN - [facility] 7.6 (L) 11.6 - 15.2 [facility] g/dl [facility] IG# - [facility] 0.03 0 - 0.7 10e3/uL [facility] IG% - [facility] 0.6 0 - 0.9 % [facility] LYMPH # - [facility] 0.6 (L) 1.09 - 3.3 [facility] 10e3/ul [facility] LYMPH% - [facility] 11.8 (L) 20 - 40 % [facility] MEAN CORPUSCULAR HGB 26.1 (L) 26.7 - 33.3 pg [facility] ME D - [facility] CENTER LAB MEAN CORPUSCULAR HGB 30.8 (L) 32.1 - 35.9 [facility] CONC - [facility] g/dL [facility] MEAN CELL VOLUME - 84.9 81 - 98 fl [facility] MONO # - [facility] 0.4 0.1 - 0.8 [facility] 10e3/[facility] LAB MONO% - [facility] 8.0 0 - 12 % [facility] PLATELET COUNT 263 141 - [address] LAB RED BLOOD COUNT - 2.91 (L) 3.86 - 5.04 [facility] 10e3/[facility] LAB RED CELL DISTRI WIDTH 17.3 <14.7 % [facility] LAB WHITE BLOOD COUNT - 5.3 4.0 - 12.[address] LAB Specimen Narrative [facility] - 019 13:00 EDT RESULTS DELAYED BECAUSE WE (PHLEBOTOMY AND IV THERAPY) CAN NOT GET BLOOD ON THIS LADY. WILL CONTACT DR AYALA FOR FURTHER INSTRUCTIONS ??[facility] Organization Address City/State/ZIP Code Phon e Number [facility] [address] [place], [place] [id number] [place] [address] LAB documented in this encounter Visit Diagnoses Not on filedocumented in this encounter
--- OUTSIDE RECORDS SUMMARY | 2022-02-03 16:03 | XMS_ITS | Encounter Summary ---
:1980 Author Organization [facility] Address [address] [place] [address] Care Team Providers Name Role Phone Ratna Olivas MD Primary Care Provider Reason for Visit Reason Comments Follow-up Encounter Details Date Type Department Care Team Description 05/23/2019 Office Visit [facility] - Drew Hernandez wo und of right [facility] SK[facility] Matos lower extremity, Sport Medicine [address] subsequent encounter [address] (Primary Dx) [address] [place] [address] [phone] Social History Tobacco Use Types Packs/Day Years [...] making decisions? documented as of this encounter Ordered Prescriptions Prescription Sig Dispensed Refills Start Date End Date cephALEXin (KEFLEX) 500 mg Take 1 Cap by mouth 40 Cap 0 05/23/2019 06/02/2019 capsuleIndications: Open 4 times daily for wound of right lower 10 days. extremity, subsequent encounter documented in this encounter Progress Notes Drew Hernandez PA - 05/23/2019 1015 EST CHIEF COMPLAINT: Right below knee amputation August 2018 Chief Complaint Patient presents with ??? Right Leg - Follow-up SUBJECTIVE: Lindsay here for follow-up of her right lower extremity below-knee amputation that wasdone August 2018. She is continued to have some serosanguineous drainage from the knee going on for several months however over the past week or 2 has become a little more significant and becoming a bit more thickened. She has been seeing wound care last visit was several weeks ago and they noted a retained suture within the wound site. They feel this may be the cause of her continued drainage. Denies any recent fever. No significant pain. ROS: A 10-point review of systems has been reviewed from the new patient intake sheet The past medical, family and social history have been reviewed in the patient chart. Past Medical History: Diagnosis Date ??? Bacteremia due to Staphylococcus aureus ??? Cocaine abuse (HCC-CMS) ??? Hepatitis C antibody positive in blood ??? Iron deficiency anemia ??? Moderate opioid use disorder (HCC-CMS) ??? Skin abscess Social History Tobacco Use ??? Smoking status: Never Smoker ??? Smokeless tobacco: Never Used Substance Use Topics ??? Alcohol use: No Frequency: Never Past Surgical History: Procedure Laterality Date ??? ABDOMINAL EXPLORATION SURGERY ??? ECTOPIC SURGERY ??? 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 ??? INTRAUTERINE DEVICE, IUD, INTRAUTERINE [...] Sleep. No facility-administered medications prior to visit. OBJECTIVE: There were no vitals taken for this visit. There is no height or weight on file to calculate BMI. On physical exam, the patient is found to be a cooperative female who appears to be alert and oriented x 3. She is well-developed, well-nourished and in no significant distress. Breathing is unlabored.Skin is warm and dry to inspection and palpation. Appears to be neurovascularly intact. Ambulates with a steady gait. Exam of the right lower extremity status post below-knee amputation. The incision along the lateral aspect has a scant amount of purulent drainage and slight amount of erythema extending about a centimeter. There is a retained suture that appears to be FiberWire within the incision. I did attempt to remove it but it was quite painful and well adhered. ASSESSMENT: Infected lower extremity wound PLAN: Dr. Watkins also in to see patient. She does have a retained foreign body consistent with suture material and she continues have drainage from the wound site. Cultures were done and she was prescribed cephalexin 500 mg 4 times daily for 10 days. Previous cultures were positive for Pseudomonas and also staph. Awaiting results of the culture to see if we need to change her antibiotics. I would like her to follow-up next week with Dr. Dinero to discuss surgical revision. Carlo Hernandez PA-C 05/23/2019 ilma Hughes - 05/23/2019 1015 EST Lindsay presents today for follow up of right below the knee amputation which Dr. Dinero did in August 2018.?? documented in this encounter Plan of Treatment Scheduled Orders Name Type Priority Associated Diagnoses Order S chedule ANAEROBE Microbiology Routine Open wound of right Ordered: 05/23/2019 CULTURE/SMEAR(INC. lower extremity, AEROBES), OTHER subsequent encounter documented as of this encounter Visit Diagnoses Diagnosis Open wound of right lower extremity, sub sequent encounter - Primary documented in this encounter Care Teams Swaging Machine Operator Relationship Specialty Start Date End Date Ratna Olivas MD PCP - General 03/05/[address] [place] [address] [phone] documented as of this encounter
--- OUTSIDE RECORDS SUMMARY | 2022-02-03 16:03 | XMS_ITS | Encounter Summary ---
:1980 Author Organization [facility] Address [address] [place] [address] Care Team Providers Name Role Phone Unavailable Primary Care Provider Unavailable Encounter Details Date Type Department Care Team Description 05/30/2018 Hospital Encounter [facility] [phone] [place] [address] (Work) [place] [address] Social History Tobacco Use Types Packs/Day Years [...] Code Departure Means Destination Home or Self [facility] documented in this encounter Plan of Treatment Not on filedocumented as of this encounter Visit Diagnoses Not on filedocumented in this encounter
--- OUTSIDE RECORDS SUMMARY | 2022-02-03 16:04 | XMS_ITS | Encounter Summary ---
:1980 Author Organization Address [address] [place] [address] Care Team Providers Name Role Phone Unavailable Primary Care Provider Unavailable Encounter Details Date Type Department Care Team Description 08/02/2017 Historical Results [facility] Lab - Main [facility] MD Lindsay 130 [facility] [address] [phone] Social History Tobacco Use Types Packs/Day [...] Procedure Name Priority Date/Time Associated Comments Diagnosis C REACTIVE PROTEIN Routine 08/02/2017 8:30 Result s for this EDT procedure are i n the results section. BASIC METABOLIC PANEL Routine 08/02/2017 8:30 Res ults for this (BMP) EDT procedure are i n the results section. COMPLETE BLOOD COUNT Routine 08/02/2017 6:00 Resu lts for this WITH DIFFERENTIAL EDT procedure are in (AUTO) the results section. documented in this encounter Results (ABNORMAL) C REACTIVE PROTEIN (08/02/2017 8:30 EDT) Pathologist Sig nature C-Reactive Protein 20.9 (H) <10.0 mg/L [facility] Specimen Narrative [facility] - 9:27 EDT 1ST SPEC CBN-NOT LABELED BUT GOLD TOP BA RCODE MISSING-MB Performing Organization Address City/State/ZIP Code Phon e Number [facility] [address] LAB BASIC METABOLIC PANEL (BMP) (08/02/2017 8:30 EDT) BUN - [facility] 16 10 - 26 mg/dL [facility] CALCIUM - [facility] 9.2 8.5 - 10.5 [facility] mg/dL [facility] Chloride 107 96 - 110 [facility] mmol/L [facility] CO2 Total 27 22 - 32 mEq/L [facility] CREATININE 0.81 0.52 - 1.04 [facility] mg/dL [facility] eGFR >60 [facility] Comment: [facility] Chronic renal impairment is defined as GFR <60 Multiply result by 1.210 for patients . eGFR calculated using the IDMS-traceable MDRD Study Equation. ??(effective 03/02/2014) Anion Gap 7 0 - 18 [facility] GLUCOSE - [facility] 98 70 - 100 mg/dL [facility] Potassium 4.1 3.5 - 5.0 [facility] mEq/L [facility] Sodium 141 136 - 145 [facility] mEq/L [facility] Specimen Narrative [facility] - 9:27 EDT 1ST SPEC CBN-NOT LABELED BUT GOLD TOP BA RCODE MISSING-MB Performing Organization Address City/State/ZIP Code Phon e Number [facility] [address] [place] [address] [facility] (ABNORMAL) COMPLETE BLOOD COUNT WITH DIFFERENTIAL (AUTO) (08/02/2017 6:00 EDT) Pathologist Sig nature ABSOLUTE NEUTROPHIL 1.82 1.7 - 7.0 [facility] COUN - [facility] 10e3/ul CENTER LAB BASO # - [facility] 0.01 0.0 - 0.3 [facility] 10e3/uL [facility] BASO % - [facility] 0 0 - 2 % [facility] EOS # - [facility] 0.18 0.05 - 0.5 [facility] 10e3/uL [facility] EOS % - [facility] 5 0 - 5 % [facility] GRAN % - [facility] 55 40 - 80 % [facility] HEMATOCRIT - [facility] 28.4 (L) 34.0 - 47.0 % [facility] HEMOGLOBIN - [facility] 8.7 (L) 11.2 - 15.7 [facility] g/dl [facility] IG# - [facility] 0.01 0 - 0.07 [facility] 10e3/uL [facility] IG% - [facility] 0.3 0 - 0.9 % [facility] LYMPH # - [facility] 0.92 0.9 - 2.9 [facility] 10e3/uL [facility] LYMPH% - [facility] 28 20 - 40 % [facility] MEAN CORPUSCULAR HGB 27.2 26 - 34 pg [facility] MED CV CENTER LAB MEAN CORPUSCULAR HGB 30.6 (L) 31 - 36 g/dL [facility] CONC [facility] CENTER LAB MEAN CELL VOLUME - 88.8 77 - 100 fl [facility] MONO # - [facility] 0.40 0.3 - 0.9 [facility] 10e3/uL [facility] MONO% - [facility] 12 0 - 12 % [facility] PLATELET COUNT 179 150 - 400 [facility] 10e3/ul [place] [facility] RED BLOOD COUNT - 3.20 (L) 3.8 - 5.2 [facility] 10e6/ul CENTER LAB RED CELL DISTRI WIDTH 14.8 11.8 - 15.6 % [facility] D - [facility] CENTER LAB WHITE BLOOD COUNT - 3.3 (L) 3.5 - 10.5 [facility] 10e3/ul CENTER LAB Specimen Performing Organization Address City/State/ZIP Code Phon e Number [facility] [address] [place], [place] [id number] [place] [address] LAB documented in this encounter Visit Diagnoses Not on filedocumented in this encounter
--- OUTSIDE RECORDS SUMMARY | 2022-02-03 16:04 | XMS_ITS | Encounter Summary ---
:1980 Author Organization [facility] Address [address] [place] [address] Care Team Providers Name Role Phone Unavailable Primary Care Provider Unavailable Reason for Visit Reason Onset Date Comments Medication Management 07/09/2017 Encounter Details Date Type Department Care Team Description 07/09/2017 Telephone [facility] Arthur Coleman, [place] dication Management Infectious Disease - [facility] [address] [facility] [address] [place], [place] [id number] [place] [address] [phone] (Wo rk) Social History Tobacco Use Types [...] this encounter Miscellaneous Notes Telephone Encounter - Arthur Coleman MD - 07/09/2017 1352 EDT Tried to call husbands number to discuss plan for PO abx. Call does not go through due to calling restrictions set up documented in this encounter Plan of Treatment Not on filedocumented as of this encounter Visit Diagnoses Not on filedocumented in this encounter
--- OUTSIDE RECORDS SUMMARY | 2022-02-03 16:04 | XMS_ITS | Encounter Summary ---
:1980 Author Organization [facility] Address [address] [place] [address] Care Team Providers Name Role Phone Unavailable Primary Care Provider Unavailable Reason for Visit Reason Onset Date Comments Medication Management 07/09/2017 Encounter Details Date Type Department Care Team Description 07/09/2017 Telephone [facility] Arthur Coleman, [place] dication Management Infectious Disease - [facility] [address] [facility] [address] [place], [place] [id number] [place] [address] [phone] (Wo rk) Social History Tobacco Use [...] Encounter - Arthur Coleman MD - 07/09/2017 1351 EDT Attempted to call patient to make plan for PO abx given inability to achieve access. Phone call did not go through. documented in this encounter Plan of Treatment Not on filedocumented as of this encounter Visit Diagnoses Not on filedocumented in this encounter
--- OUTSIDE RECORDS SUMMARY | 2022-02-03 16:04 | XMS_ITS | Encounter Summary ---
:1980 Author Organization [facility] Address [address] [place] [address] Care Team Providers Name Role Phone Ratna Olivas MD Primary Care Provider Encounter Details Date Type Department Care Team Description 02/26/2018 Historical Results [facility] - Sukhdev Redd, Only [facility] - Main [facility] [address] [phone] Social History Tobacco Use Types Packs/Day [...] Diagnosis Comme nts ROUTINE CULTURE - Routine 02/26/2018 21:10 Result s for this [facility] EDT procedure are i n the results section. documented in this encounter Results ROUTINE CULTURE - [facility] (02/26/2018 21:10 EDT) Culture Swab Source/Specimen Description: Right lower ex tremity [facility] ?ulc er [facility] PROVIDENCIA STUARTII PROVIDENCIA STUARTII [facility] - [facility] QUANT - [facility] MODERATE [facility] ENTEROCOCCUS ENTEROCOCCUS [facility] FAECALIS - [facility] FA[facility]ALIS [facility] QUANT - [facility] MANY [facility] Specimen Narrative [facility] - 018 7:25 EDT Swab Source/Specimen Description: Right lower extremity ?ulcer Organism Antibiotic Method Susceptibility Providencia stuartii Ampicillin Sulbactam GRAM NEGATIVE >=32: Resistant SUSCEPTIBILITY - [facility] Providencia stuartii Ampicillin GRAM NEGATIVE >=32: Resis tant SUSCEPTIBILITY - [facility] Providencia stuartii Ceftriaxone GRAM NEGATIVE <=1: Suscep tible SUSCEPTIBILITY - [facility] Providencia stuartii Cefazolin GRAM NEGATIVE >=64: Resis tant SUSCEPTIBILITY - [facility] Providencia stuartii Ciprofloxacin GRAM NEGATIVE 1: Suscepti ble SUSCEPTIBILITY - [facility] Providencia stuartii Cefepime GRAM NEGATIVE <=1: Suscep tible SUSCEPTIBILITY - [facility] Providencia stuartii Gentamicin GRAM NEGATIVE <=1: Resist ant SUSCEPTIBILITY - [facility] Providencia stuartii Imipenem GRAM NEGATIVE 2: Suscepti ble SUSCEPTIBILITY - [facility] Providencia stuartii Levofloxacin GRAM NEGATIVE 2: Suscepti ble SUSCEPTIBILITY - [facility] Providencia stuartii Piperacillin Tazobactam GRAM NEGATIVE <=4 : Susceptible SUSCEPTIBILITY - [facility] Providencia stuartii Trimethoprim-Sulfametho GRAM NEGATIVE <=2 0: Susceptible xazole SUSCEPTIBILITY - [facility] Providencia stuartii Tobramycin GRAM NEGATIVE <=1: Resist ant SUSCEPTIBILITY - [facility] Comment: See Reason(s) for Study Enterococcus faecalis Gentamicin 500 GRAM POSITIVE SUSCEPTIBILI TY - Resistant [facility] Enterococcus faecalis Penicillin GRAM POSITIVE SUSCEPTIBILI TY - 4: Susceptible [facility] Enterococcus faecalis Streptomycin 2000 GRAM POSITIVE SUSCEPTIBI LITY - Resistant [facility] Enterococcus faecalis Vancomycin GRAM POSITIVE SUSCEPTIBILI TY - 1: Susceptible [facility] Comment: See Reason(s) for Study Performing Organization Address City/State/ZIP Code Phon e Number [facility] [address] [place], [place] [id number] [place] [address] LAB documented in this encounter Visit Diagnoses Not on filedocumented in this encounter Care Teams Loft Worker Apprentice Relationship Specialty Start Date End Date Ratna Olivas MD PCP - General 03/05/[address] [place] [phone] documented as of this encounter
--- OUTSIDE RECORDS SUMMARY | 2022-02-03 16:04 | XMS_ITS | Encounter Summary ---
:1980 Author Organization [facility] Address [address] [place] [address] Care Team Providers Name Role Phone Unavailable Primary Care Provider Unavailable Encounter Details Date Type Department Care Team Description 11/26/2017 Historical Results Only [facility] in, [facility] Radiology Resul ts Amarilis Rivera PA-C [address] [place], [place] [address] [place] [address] Road [address] [place] [address] Social History Tobacco Use Types Packs/Day Years [...] Procedure Name Priority Date/Time Associated Comments Diagnosis BACTERIAL Routine 11/26/2017 13:18 Results for this CULTURE/SMEAR, EDT procedure are in RESPIRATORY the results section. BACTERIAL Routine 11/26/2017 13:18 Results for this CULTURE/SMEAR, EDT procedure are in RESPIRATORY the results section. XR FOOT RIGHT 3 OR 11/26/2017 12:32 Resul ts for this MORE VIEWS EDT procedure are i n the results section. XR TIBIA FIBULA RIGHT 11/26/2017 12:31 Re sults for this 2 VIEWS EDT procedure are i n the results section. documented in this encounter Results BACTERIAL CULTURE/SMEAR, RESPIRATORY (11/26/2017 13:18 EDT) GRAM STAIN - [facility] TWO SWABS RECEIVED [facility] FOR CULTURE AND MED CENTER LAB GRAM STAIN BACTERIA SEEN - [facility] WBC RARE [facility] PSEUDOMONAS PSEUDOMONAS [facility] AERUGINOSA - CV [facility] LAB QUANT - [facility] LAB Specimen Organism Antibiotic Method Susceptibility Pseudomonas Ceftazidime GRAM NEGATIVE 4: Susceptible aeruginosa SUSCEPTIBILITY - [facility] Pseudomonas Ciprofloxacin GRAM NEGATIVE <=0.25: Suscepti ble aeruginosa SUSCEPTIBILITY - [facility] Pseudomonas Cefepime GRAM NEGATIVE 2: Susceptible aeruginosa SUSCEPTIBILITY - [facility] Pseudomonas Gentamicin GRAM NEGATIVE 4: Susceptible aeruginosa SUSCEPTIBILITY - [facility] Pseudomonas Imipenem GRAM NEGATIVE 2: Susceptible aeruginosa SUSCEPTIBILITY - [facility] Pseudomonas Levofloxacin GRAM NEGATIVE 1: Susceptible aeruginosa SUSCEPTIBILITY - [facility] Pseudomonas Piperacillin GRAM NEGATIVE 8: Susceptible aeruginosa Tazobactam SUSCEPTIBILITY - [facility] Pseudomonas Tobramycin GRAM NEGATIVE <=1: Susceptible aeruginosa SUSCEPTIBILITY - [facility] Comment: See Reason(s) for Study Performing Organization Address City/State/ZIP Code Phon e Number [facility] [place] [facility] [address] [place], [place] [phone] [place] [address] LAB BACTERIAL CULTURE/SMEAR, RESPIRATORY (11/26/2017 13:18 EDT) GRAM STAIN - [facility] TWO SWABS RECEIVED [facility] FOR CULTURE AND MED CENTER LAB GRAM STAIN BACTERIA SEEN - [facility] [place] [facility] WBC NO [facility] LAB PSEUDOMONAS PSEUDOMONAS [facility] AERUGINOSA - [facility] LAB QUANT - [facility] LAB Specimen Organism Antibiotic Method Susceptibility Pseudomonas Ceftazidime GRAM NEGATIVE 4: Susceptible aeruginosa SUSCEPTIBILITY - [facility] Pseudomonas Ciprofloxacin GRAM NEGATIVE <=0.25: Suscepti ble aeruginosa SUSCEPTIBILITY - [facility] Pseudomonas Cefepime GRAM NEGATIVE 2: Susceptible aeruginosa SUSCEPTIBILITY - [facility] Pseudomonas Gentamicin [...] Organization Address City/State/ZIP Code Phon e Number [facility] [address] LAB XR FOOT RIGHT 3 OR MORE VIEWS (11/26/2017 12:32 EDT) Specimen Narrative [facility] - 11/26/2017 12:35 EDT ? EXAM: RADIOLOGY EXPRESS CARE/EXP CARE GIFTY EX. D/ (1227) ? CLINICAL INFORMATION: ? L97.511 SKIN ULCER OF RIGHT FOOT LIMITED TO BREAKDOWN OF SKIN ? INDICATION: L97.511 SKIN ULCER OF RIGHT FOOT LIMITED TO BREAKDOWN OF ? SKIN. ? COMPARISON: Right foot radiograph 08/31/2017. ? TECHNIQUE: 3 views of the right f oot were obtained. ? FINDINGS: ? Swelling of the forefoot and grea t toe soft tissues. New superficial ? skin ulcer at the tip of the grea t toe. No bone destruction or ? resorption of the terminal tuft i dentified to indicate osteomyelitis. ? 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 and interphalangeal joints. Melissa l bone density. No fracture. ? REPORT SIGNED IN OTHER VENDOR SYSTEM 11/26/2017 ?Reported B y: Nils Reyes MD ? CC: ? Transcribed Date/Time: 11/26/2017 (7855) ? Staff Accountant: ? Printed Date/Time: 10/18/2018 (12 02) ? PAGE 1 ? Haylee d Report ? Procedure Note Nils Reyes MD - 03/06/2019 EXAM: RADIOLOGY EXPRESS CARE/EXP CARE F OO EX. D/ (1227) CLINICAL INFORMATION: L97.511 SKIN ULCER OF RIGHT FOOT LIMITE D TO BREAKDOWN OF SKIN INDICATION: L97.511 SKIN ULCER OF RIGHT FOOT LIMITED TO BREAKDOWN OF SKIN. COMPARISON: Right foot radiograph 018. TECHNIQUE: 3 views of the right foot we re obtained. FINDINGS: Swelling of the forefoot and great toe soft tissues. New superficial skin ulcer at the tip of the great toe. No bone destruction or resorption of the terminal tuft identif ied to indicate osteomyelitis. Mild degenerative arthrosis of the grea t toe metatarsal phalangeal and interphalangeal joints. Normal bone density. No fracture. REPORT SIGNED IN OTHER VENDOR SYSTEM 11/26/2017 Reported By: Nils Reyes MD CC: Transcribed Date/Time: 11/26/2017 (8515 ) Staff Accountant: Printed Date/Time: 10/18/2018 (1202) PAGE 1 Signed Report Performing Organization Address City/State/ZIP Code Phon e Number [facility] XR TIBIA FIBULA RIGHT 2 VIEWS (11/26/2017 12:31 EDT) Specimen Narrative [facility] - 11/26/2017 12:34 EDT ? EXAM: RADIOLOGY EXPRESS CARE/EXP CARE TIB EX. D/ (1227) ? CLINICAL INFORMATION: ? L97.912 SKIN ULCER OF RIGHT LOWER LEG WITH FAT LAYER EXPOSED ? INDICATION: L97.912 SKIN ULCER OF RIGHT LOWER LEG WITH FAT LAYER ? EXPOSED . ? COMPARISON: None. ? TECHNIQUE: 2 views of the right l ower leg were obtained. ? FINDINGS: ? Swelling of the lower leg soft ti ssues. Superficial skin ulcer at the ? medial aspect of the midportion o f the right lower leg. No radiopaque ? foreign body. 2 small calcificati ons within the pretibial soft ? tissues, not associated with a sk in ulcer, seen on the lateral study. ? No fracture. ? REPORT SIGNED IN OTHER VENDOR SYSTEM 11/26/2017 ?Reported B y: Nils Reyes MD ? CC: ? Transcribed Date/Time: 11/26/2017 (1234) ? Staff Accountant: ? Printed Date/Time: 10/18/2018 (12 02) ? PAGE 1 ? Haylee d Report ? Procedure Note Nils Reyes MD - 03/06/2019 EXAM: RADIOLOGY EXPRESS CARE/EXP CARE T IB EX. D/ (1227) CLINICAL INFORMATION: L97.912 SKIN ULCER OF RIGHT LOWER LEG W ITH FAT LAYER EXPOSED INDICATION: L97.912 SKIN ULCER OF RIGHT LOWER LEG WITH FAT LAYER EXPOSED . COMPARISON: None. TECHNIQUE: 2 views of the right lower l eg were obtained. FINDINGS: Swelling of the lower leg soft tissues. Superficial skin ulcer at the medial aspect of the midportion of the right lower leg. No radiopaque foreign body. 2 small calcifications wi thin the pretibial soft tissues, not associated with a skin ulc er, seen on the lateral study. No fracture. REPORT SIGNED IN OTHER VENDOR SYSTEM 11/26/2017 Reported By: Nils Reyes MD CC: Transcribed Date/Time: 11/26/2017 (2370 ) Staff Accountant: Printed Date/Time: 10/18/2018 (5345) PAGE 1 Signed Report Performing Organization Address City/State/ZIP Code Phon e Number [facility] documented in this encounter Visit Diagnoses Not on filedocumented in this encounter
--- OUTSIDE RECORDS SUMMARY | 2022-02-03 16:04 | XMS_ITS | Encounter Summary ---
:1980 Author Organization [facility] Address [address] [place] [address] Care Team Providers Name Role Phone Unavailable Primary Care Provider Unavailable Encounter Details Date Type Department Care Team Description 01/09/2018 Historical Results [facility] ra, Only [facility] Lab - Main [id number] [place] [phone] (Wo rk) Social History Tobacco Use Types [...] Associated Comments Diagnosis COMPLETE BLOOD COUNT Routine 01/09/2018 10:23 Res ults for this WITH DIFFERENTIAL EDT procedure are in (AUTO) the results section. documented in this encounter Results (ABNORMAL) COMPLETE BLOOD COUNT WITH DIFFERENTIAL (AUTO) (01/09/2018 10:23 EDT) Pathologist Sig nature ABSOLUTE NEUTROPHIL 5.32 1.7 - 7.0 [facility] COUN - [facility] 10e3/ul CENTER LAB BASO # - [facility] 0.02 0.0 - 0.3 [facility] 10e3/uL [place] BASO % - [facility] 0 0 - 2 % [facility] EOS # - [facility] 0.05 0.05 - 0.5 [facility] 10e3/uL [place] EOS % - [facility] 1 0 - 5 % [facility] GRAN % - [facility] 80 40 - 80 % [facility] HEMATOCRIT - [facility] 27.8 (L) 34.0 - 47.0 % [facility] HEMOGLOBIN - [facility] 8.6 (L) 11.2 - 15.7 [facility] g/dl [facility] IG# - [facility] 0.02 0 - 0.07 [facility] 10e3/uL [facility] IG% - [facility] 0.3 0 - 0.9 % [facility] LYMPH # - [facility] 0.69 (L) 0.9 - 2.9 [facility] 10e3/uL [facility] LYMPH% - [facility] 10 (L) 20 - 40 % [facility] MEAN CORPUSCULAR HGB 26.2 26 - 34 pg [facility] LAB MEAN CORPUSCULAR HGB 30.9 (L) 31 - 36 g/dL [facility] CONC - [facility] CENTER LAB MEAN CELL VOLUME - 84.8 77 - 100 fl [facility] LAB MONO # - [facility] 0.57 0.3 - 0.9 [facility] 10e3/uL [facility] MONO% - [facility] 9 0 - 12 % [facility] LAB PLATELET COUNT 198 150 - 400 [facility] 10e3/ul CENTER LAB RED BLOOD COUNT - 3.28 (L) 3.8 - 5.2 [facility] 10e6/ul CENTER LAB RED CELL DISTRI WIDTH 14.1 11.8 - 15.6 % [facility] ME D - [facility] LAB WHITE BLOOD COUNT - 6.7 3.5 - 10.5 [facility] 10e3/ul [facility] Specimen Narrative [facility] - 018 12:08 EDT EXTREMELY HARD STICK, FINGER STICK, MICROTAINER Does PT Have a Latex Allergy? NO Performing Organization Address City/State/ZIP Code Phon e Number [facility] [address] [place] [address] [facility] documented in this encounter Visit Diagnoses Not on filedocumented in this encounter
--- OUTSIDE RECORDS SUMMARY | 2022-02-03 16:04 | XMS_ITS | Encounter Summary ---
:1980 Author Organization [facility] Address [address] [place] [address] Care Team Providers Name Role Phone Unavailable Primary Care Provider Unavailable Encounter Details Date Type Department Care Team Description 11/26/2017 Hospital Encounter [facility] [phone] [place] [address] (Work) [place] [address] Social History Tobacco Use Types Packs/Day Years [...] (SUBOXONE) 12-3 mg film the tongue daily. doxycycline (ADOXA) 100 mg Take 100 mg by 0 05/28/2018 tablet mouth 2 times daily. Multivitamins with Take 1 Tab by mouth 0 03/12/2019 Minerals tablet tablet daily. documented as of this encounter Discharge Disposition Disposition Code Departure Means Destination Home or Self Correction documented in this encounter Plan of Treatment Not on filedocumented as of this encounter Visit Diagnoses Not on filedocumented in this encounter
--- OUTSIDE RECORDS SUMMARY | 2022-02-03 16:04 | XMS_ITS | Encounter Summary ---
:1980 Author Organization [facility] Address [address] [place] [address] Care Team Providers Name Role Phone Ratna Olivas MD Primary Care Provider Reason for Visit Reason Onset Date Comments Appointment Related 11/14/2017 PATIENT WAS A NO BRIGHT W FOR THE LAB AND DR CORNELIUS ON 11/14/17 Encounter Details Date Type Department Care Team Description 11/14/2017 Telephone [facility] Grzegorz Cornelius, Appointment Related Vascular Surgery - (PATIENT WAS A NO SHOW [facility] [address] [facility] FOR THE LAB AND 111 [facility], Main ADRYAN ON 11/14/17) [place] [address] [address], [place] [phone] (Wo rk) Social History Tobacco Use Types [...] this encounter Miscellaneous Notes Telephone Encounter - Sandra Wu - 11/14/2017 4543 EDT PATIENT WAS A NO SHOW FOR THE LAB AND DR CORNELIUS ON 11/14/17 documented in this encounter Plan of Treatment Not on filedocumented as of this encounter Visit Diagnoses Not on filedocumented in this encounter Care Teams Tank Bottom Assembler Relationship Specialty Start Date End Date Ratna Olivas MD PCP - General 03/05/[address] [place] [phone] documented as of this encounter
--- OUTSIDE RECORDS SUMMARY | 2022-02-03 16:04 | XMS_ITS | Encounter Summary ---
:1980 Author Organization [facility] Address [address] [place] [id number] Care Team Providers Name Role Phone Unavailable Primary Care Provider Unavailable Reason for Referral Vascular Lab (Other (Specify in Question)) - New Request Specialty Diagnoses / Procedures Referred By Contact Refer red To Contact Diagnoses Pseudoaneurysm of femoral artery ([facility]) ([facility]) Grzegorz Ramos MD Procedures VL LOWER ARTERIAL DUPLEX BILATERAL [address] [phone] Referral ID Status Reason Start Date Expiration Date Visits V isits Requested Authorized [id number] New Request 07/26/2017 1 1 Encounter Details Date Type Department Care Team Description 07/26/[address] [facility] Grzegorz Ramos eurysm of Vascular Surgery - MD Zeferino femoral artery Main [address] ([facility] ([facility]) [address] [facility] (Primary Dx) [place] [address] [facility] [phone] [phone] (Wo rk) Social History Tobacco Use [...] Results Name Type Priority Associated Diagnoses Date/Ti [facility] LOWER ARTERIAL Imaging Routine Pseudoaneurysm of femor al 02/20/2018 14:28 EDT DUPLEX BILATERAL artery ([facility]) documented as of this encounter Visit Diagnoses Diagnosis Pseudoaneurysm of femoral artery ([facility] S) ([facility]) - Primary Aneurysm of artery of lower extremity documented in this encounter
--- OUTSIDE RECORDS SUMMARY | 2022-02-03 16:04 | XMS_ITS | Encounter Summary ---
:1980 Author Organization [facility] Address [address] [place] [address] Care Team Providers Name Role Phone Unavailable Primary Care Provider Unavailable Encounter Details Date Type Department Care Team Description 11/28/2017 Historical Results Only [facility] [place] in, [facility] Lab - Main [facility] Amarilis Rivera PA-C [address] [place], [place] [address] [place] [address] Road [address] [place] [address] Social History Tobacco Use Types Packs/Day Years [...] Associated Comments Diagnosis COMPLETE BLOOD COUNT Routine 11/28/2017 11:09 Res ults for this WITH DIFFERENTIAL EDT procedure are in (AUTO) the results section. C REACTIVE PROTEIN Routine 11/28/2017 11:09 Resul ts for this EDT procedure are i n the results section. documented in this encounter Results (ABNORMAL) C REACTIVE PROTEIN (11/28/2017 11:09 EDT) Pathologist Sig nature C-Reactive Protein 29.3 (H) <10.0 mg/L [facility] Specimen Narrative [facility] - 018 12:12 EDT Does PT Have a Latex Allergy? NO Performing Organization Address City/State/ZIP Code Phon e Number [facility] [address] LAB (ABNORMAL) COMPLETE BLOOD COUNT WITH DIFFERENTIAL (AUTO) (11/28/2017 11:09 EDT) Pathologist Sig nature ABSOLUTE NEUTROPHIL 1.82 1.7 - 7.0 [facility] COUN - [facility] 10e3/ul [place] [facility] BASO # - [facility] 0.02 0.0 - 0.3 [facility] 10e3/uL [place] [facility] BASO % - [facility] 1 0 - 2 % [facility] EOS # - [facility] 0.06 0.05 - 0.5 [facility] 10e3/uL [place] [facility] EOS % - [facility] 2 0 - 5 % [facility] GRAN % - [facility] 63 40 - 80 % [facility] HEMATOCRIT - [facility] 29.7 (L) 34.0 - 47.0 % [facility] HEMOGLOBIN - [facility] 9.5 (L) 11.2 - 15.7 [facility] g/dl CENTER LAB IG# - [facility] 0.05 0 - 0.07 [facility] 10e3/uL [place] [facility] IG% - [facility] 1.7 (H) 0 - 0.9 % [facility] LYMPH # - [facility] 0.72 (L) 0.9 - 2.9 [facility] 10e3/uL [place] [facility] LYMPH% - [facility] 25 20 - 40 % [facility] MEAN CORPUSCULAR HGB 27.0 26 - 34 pg [facility] MED - [facility] LAB MEAN CORPUSCULAR HGB 32.0 31 - 36 g/dL [facility] CONC [facility] LAB MEAN CELL VOLUME - 84.4 77 - 100 fl [facility] MONO # - [facility] 0.21 (L) 0.3 - 0.9 [facility] 10e3/uL [place] [facility] MONO% - [facility] 7 0 - 12 % [facility] PLATELET COUNT 88 (L) 150 - 400 [facility] 10e3/ul [place] [facility] RED BLOOD COUNT - 3.52 (L) 3.8 - 5.2 [facility] 10e6/ul [place] [facility] RED CELL DISTRI WIDTH 14.2 11.8 - 15.6 % [facility] ME D - [facility] CENTER LAB WHITE BLOOD COUNT - 2.9 (L) 3.5 - 10.5 [facility] 10e3/ul [place] [facility] Specimen Narrative [facility] - 018 12:49 EDT Does PT Have a Latex Allergy? NO Performing Organization Address City/State/ZIP Code Phon e Number [facility] [address] [place] [address] [facility] documented in this encounter Visit Diagnoses Not on filedocumented in this encounter
--- OUTSIDE RECORDS SUMMARY | 2022-02-03 16:04 | XMS_ITS | Encounter Summary ---
:[address] [facility] Address [address] [place] [address] Care Team Providers Name Role Phone Unavailable Primary Care Provider Unavailable Reason for Visit Reason Onset Date Comments Medication Management 07/09/2017 Encounter Details Date Type Department Care Team Description 07/09/2017 Telephone [facility] Arthur Coleman, [place] dication Management Infectious Disease - [facility] [address] [facility] [address] [place], [place] [id number] [place] [address] [phone] (Wo rk) Social History Tobacco Use [...] Encounter - Arthur Coleman MD - 07/09/2017 1692 EDT Discussed options with patient: She does not want to be readmitted for PICC and IV abx to complete the course. OP unable to get IV access. She did start the doxycyline 100mg BID which she is toleratingfine so far. We discussed that she should DC her MVI and not take with milk/dairy (can have them by a few hours). We discussed addition of rifampin but with fever on it prior + interactions with doxy (decreased doxy) and suboxone (decreased suboxone) will not add this. Will get labs drawn in~1 week at [facility]. Will place orders today for fax to their lab. She asked me to check with Vascular about 1) does she need to come back for FU 07/18? and 2) is she supposed to be on a blood thinner? Was on lovenox during the admission. Spoke with Vasc - yes to follow-up. Resident thinks only ASA for AC at this time but will confirm with attending and call patient. 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
--- OUTSIDE RECORDS SUMMARY | 2022-02-03 16:04 | XMS_ITS | Encounter Summary ---
:1980 Author Organization [facility] Address [address] [place] [address] Care Team Providers Name Role Phone Unavailable Primary Care Provider Unavailable Encounter Details Date Type Department Care Team Description 08/31/2017 Historical Results [facility] - Monik Gorman, Only [place] [facility] Resul ts [address] [place] [address] [facility] [place] [address] Social History Tobacco Use Types [...] Priority Date/Time Associated Diagnosis Comme nts XR FOOT RIGHT 3 OR 08/31/2017 11:22 Resul ts for this MORE VIEWS EDT procedure are i n the results section. documented in this encounter Results XR FOOT RIGHT 3 OR MORE VIEWS (08/31/2017 11:22 EDT) Specimen Narrative [facility] - 08/31/2017 11:25 EDT ? EXAM: RADIOLOGY/FOOT RIGHT 3+VIEW ? EX. D/ (1100) ? CLINICAL INFORMATION: ? L97.519 NONPRESSURE CHRONIC ULCER OF OTHER PART ? OF RIGHT FOOT WITH UNSPECIFIED SE VERITY, JOSUE. ? GREAT TOE. ??CONCERN FOR UNDERLYI NG ABSCESS/ ? INFECTION VERSUS OSTEO. ? INDICATION: L97.519 NONPRESSURE C HRONIC ULCER OF OTHER PART, OF RIGHT ? FOOT WITH UNSPECIFIED SEVERITY, E SP., GREAT TOE. ??CONCERN FOR ? UNDERLYING ABSCESS/, INFECTION VE RSUS OSTEO. ?? RIGHT FOOT NON ? PRESSURE, CHRONIC ULCER,GREAT TOE ? TECHNIQUE: 3 views right foot. ? COMPARISON: None. ? Findings: The bony alignment is a natomic. No osseous destructive ? changes suggestive of osteomyelit is are detected. There is mild ? degenerative change at the 1st MT P and polyarticular interphalangeal ? joints. ? IMPRESSION: ? No radiographic evidence of osteo myelitis detected. ? REPORT SIGNED IN OTHER VENDOR SYSTEM 08/31/2017 ?Reported B y: Luke Storey MD ? CC: ? Transcribed Date/Time: 08/31/2017 (1125) ? Customer Engagement Specialist: ? Printed Date/Time: 10/18/2018 (12 02) ? PAGE 1 ? Haylee d Report ? Procedure Note Luke Storey E - 03/06/2019 EXAM: RADIOLOGY/FOOT RIGHT 3+VIEW EX. D / (1100) CLINICAL INFORMATION: L97.519 NONPRESSURE CHRONIC ULCER OF OT HER PART OF RIGHT FOOT WITH UNSPECIFIED SEVERITY , JOSUE. GREAT TOE. CONCERN FOR UNDERLYING ABSCE SS/ INFECTION VERSUS OSTEO. INDICATION: L97.519 NONPRESSURE CHRONIC ULCER OF OTHER PART, OF RIGHT FOOT WITH UNSPECIFIED SEVERITY, JOSUE., G REAT TOE. CONCERN FOR UNDERLYING ABSCESS/, INFECTION VERSUS O STEO. RIGHT FOOT NON PRESSURE, CHRONIC ULCER,GREAT TOE TECHNIQUE: 3 views right foot. COMPARISON: None. Findings: The bony alignment is anatomi c. No osseous destructive changes suggestive of osteomyelitis are detected. There is mild degenerative change at the 1st MTP and polyarticular interphalangeal joints. IMPRESSION: No radiographic evidence of osteomyelit is detected. REPORT SIGNED IN OTHER VENDOR SYSTEM 08/31/2017 Reported By: Luke Storey MD CC: Transcribed Date/Time: 08/31/2017 (1125 ) Customer Engagement Specialist: Printed Date/Time: 10/18/2018 (1202) PAGE 1 Signed Report Performing Organization Address City/State/ZIP Code Phon e Number [facility] documented in this encounter Visit Diagnoses Not on filedocumented in this encounter
--- OUTSIDE RECORDS SUMMARY | 2022-02-03 16:04 | XMS_ITS | Encounter Summary ---
:1980 Author Organization [facility] Address [address] [place] [address] Care Team Providers Name Role Phone Unavailable Primary Care Provider Unavailable Reason for Visit Reason Onset Date Comments Home Health 07/09/2017 Encounter Details Date Type Department Care Team Description 07/09/2017 Telephone [facility] Grzegorz Ramos MD [facility] Vascular Surgery - Main [address] [facility], Main [address] [place] [address], Level 5 [place], [place] [id number] [place] [phone] (Wo rk) Social History Tobacco Use [...] this encounter Miscellaneous Notes Telephone Encounter - Keena Lobo RN - 07/09/2017 1531 EDT Patient called the clinic today and reports that she left the hospital on 07/06 and still hasn't seen a Home Health nurse. Patient left AMA. Patient reports she has been changing dressing daily to right groin, pain well controlled with antibiotics, denies fevers or chills. Nya Blandon notified. Nya reported she would try to help coordinate VNA referral for wound care and assessment. elephone Encounter - Veronica Harrison - 07/09/2017 1454 EDT Ms. Odonnell calls stating she had surgery with Dr. Ramos on 06/29/17 and was discharged from the hospital on 07/06/17. Ms. Odonnell states that at discharge she was instructed that Home Health would be notified and they would be coming in daily for wound care/dressing changes. Patient states she spoke with Home Health and the nurses there instructed her that they needed a referral for them to go in and do her wound care. documented in this encounter Plan of Treatment Not on filedocumented as of this encounter Visit Diagnoses Not on filedocumented in this encounter
--- OUTSIDE RECORDS SUMMARY | 2022-02-03 16:04 | XMS_ITS | Encounter Summary ---
:1980 Author Organization [facility] Address [address] [place] [address] Care Team Providers Name Role Phone Ratna Olivas MD Primary Care Provider Encounter Details Date Type Department Care Team Description 12/24/2017 Historical Results [facility] - Aby Bolanos, PA-C Only [facility] Lab - Main [facility] [address] [facility] [address] [place] [phone] Social History Tobacco Use Types Packs/Day [...] Diagnosis Comme nts ROUTINE CULTURE - Routine 12/24/2017 9:44 EDT Res ults for this CV procedure are i n the results section. documented in this encounter Results ROUTINE CULTURE - [facility] (12/24/2017 9:44 EDT) [facility] P[facility] QUANT - [facility] MODERATE [facility] ENTEROCOCCUS SPECIES ENTEROCOCCUS SPECIES [facility] - [facility] LAB QUANT - [facility] Specimen Narrative [facility] - 018 7:20 EDT Swab Source/Specimen Description: right lower extremity ?ulcer Organism Antibiotic Method Susceptibility Pseudomonas Ceftazidime GRAM NEGATIVE 4: Susceptible aeruginosa SUSCEPTIBILITY - CV Pseudomonas Ciprofloxacin GRAM NEGATIVE <=0.25: Suscepti ble aeruginosa SUSCEPTIBILITY - CV Pseudomonas Cefepime GRAM NEGATIVE 2: Susceptible aeruginosa SUSCEPTIBILITY - CV Pseudomonas Gentamicin GRAM NEGATIVE 8: Intermediate aeruginosa SUSCEPTIBILITY - CV Pseudomonas Imipenem GRAM NEGATIVE 2: Susceptible aeruginosa SUSCEPTIBILITY - CV Pseudomonas Levofloxacin GRAM NEGATIVE 1: Susceptible aeruginosa SUSCEPTIBILITY - [facility] Pseudomonas Piperacillin GRAM NEGATIVE 8: Susceptible aeruginosa Tazobactam SUSCEPTIBILITY - [facility] Pseudomonas Tobramycin GRAM NEGATIVE <=1: Susceptible aeruginosa SUSCEPTIBILITY - [facility] Comment: See Reason(s) for Study Enterococcus species Gentamicin 500 GRAM POSITIVE SUSCEPTIBILIT Y - Resistant CV Enterococcus species Penicillin GRAM POSITIVE SUSCEPTIBILIT Y - 8: Susceptible [facility] Enterococcus species Streptomycin 2000 GRAM POSITIVE SUSCEPTIBIL ITY - Resistant CV Enterococcus species Vancomycin GRAM POSITIVE SUSCEPTIBILIT Y - 1: Susceptible [facility] Comment: See Reason(s) for Study Performing Organization Address City/State/ZIP Code Phon e Number [facility] [address] [place] [address] [facility] documented in this encounter Visit Diagnoses Not on filedocumented in this encounter Care Teams Real Estate Coordinator Relationship Specialty Start Date End Date Ratna Olivas MD PCP - General 03/05/[address] [phone] documented as of this encounter
--- OUTSIDE RECORDS SUMMARY | 2022-02-03 16:04 | XMS_ITS | Encounter Summary ---
:1980 Author Organization [facility] Address [address] [place] [address] Care Team Providers Name Role Phone Unavailable Primary Care Provider Unavailable Encounter Details Date Type Department Care Team Description 07/30/2017 Historical Results [facility] - Sukhdev Redd, Only [facility] Radiology Resul ts [address] [place], [place] [id number] [place] [address] [phone] Social History Tobacco Use Types Packs/Day [...] Priority Date/Time Associated Comments Diagnosis BACTERIAL Routine 07/30/2017 16:55 Results for this CULTURE/SMEAR, EDT procedure are in RESPIRATORY the results section. XR CHEST 1 VIEW 07/30/2017 13:17 Results for this EDT procedure are i n the results section. BLOOD CULTURE - CV Routine 07/30/2017 12:32 Res ults for this EDT procedure are i n the results section. BLOOD CULTURE - [facility] Routine 07/30/2017 12:00 Res ults for this EDT procedure are i n the results section. LACTIC ACID SEPSIS Routine 07/30/2017 12:00 Resul ts for this REFLEX - [facility] EDT procedure are in the results section. COMPLETE BLOOD COUNT Routine 07/30/2017 12:00 Res ults for this WITH DIFFERENTIAL EDT procedure are in (AUTO) the results section. C REACTIVE PROTEIN Routine 07/30/2017 12:00 Resul ts for this EDT procedure are i n the results section. COMPREHENSIVE Routine 07/30/2017 12:00 Results fo r this METABOLIC PANEL (CMP) EDT proced ure are in the results section. documented in this encounter Results BACTERIAL CULTURE/SMEAR, RESPIRATORY (07/30/2017 16:55 EDT) GRAM STAIN - [facility] TWO SWABS RECEIVED [facility] LAB GRAM STAIN Gram negative rods RARE [facility] WBC RARE [facility] PSEUDOMONAS PSEUDOMONAS [facility] AERUGINOS[facility] - [facility] LAB QUANT - [facility] FEW [facility] Specimen Narrative [facility] - 018 7:31 EDT Hold in OE until Specimen is Collected? N Organism Antibiotic Method Susceptibility Pseudomonas Ceftazidime GRAM NEGATIVE 4: Susceptible aeruginosa SUSCEPTIBILITY - [facility] Pseudomonas Ciprofloxacin GRAM NEGATIVE <=0.25: Suscepti ble aeruginosa SUSCEPTIBILITY - [facility] Pseudomonas Cefepime GRAM NEGATIVE 2: Susceptible aeruginosa SUSCEPTIBILITY - [facility] Pseudomonas Gentamicin GRAM NEGATIVE <=1: Susceptible aeruginosa SUSCEPTIBILITY - [facility] Pseudomonas Imipenem GRAM NEGATIVE 2: Susceptible aeruginosa SUSCEPTIBILITY - [facility] Pseudomonas Levofloxacin GRAM NEGATIVE 0.5: Susceptible aeruginosa SUSCEPTIBILITY - [facility] Pseudomonas Meropenem GRAM NEGATIVE <=0.25: Suscepti ble aeruginosa SUSCEPTIBILITY - [facility] Pseudomonas Piperacillin GRAM NEGATIVE 8: Susceptible aeruginosa Tazobactam SUSCEPTIBILITY - [facility] Pseudomonas Tobramycin GRAM NEGATIVE <=1: Susceptible aeruginosa SUSCEPTIBILITY - [facility] Comment: See Reason(s) for Study Performing Organization Address City/State/ZIP Code Phon e Number [facility] [address] [place] [address] [facility] XR CHEST 1 VIEW (07/30/2017 13:17 EDT) Specimen Narrative [facility] - 07/30/2017 13:21 EDT ? EXAM: RADIOLOGY/CHEST-PORTABLE ?EX. D/ (1303) ? CLINICAL INFORMATION: ? LINE PLACEMENT ? CHEST-PORTABLE 07/30/2017 1:03 PM ? Signs and Symptoms: ?CELLULITIS L INE PLACEMENT ? Comparisons: 06/27/2017 ? Findings: ? A portable AP view of the chest w as obtained ??Semiupright. ? There may be multiple patchy mult ifocal pulmonary opacities ? alternatively, the appearance cou ld relate to the presence of dense ? fibroglandular tissue within the breasts. The appearance is at any ? rate similar in comparison to the study of 06/27/2017. Again noted is ? the right internal jugular centra l venous catheter with tip in the ? lower SVC. The cardiomediastinal silhouette and pulmonary vascularity ? are normal for technique. No pneu mothorax or pleural effusion is ? identified. A sclerotic bony lesi on is evident within the proximal ? left humerus. This lesion has a c hondroid matrix and as such is most ? likely reflective of an enchondro ma. It is unchanged in comparison to ? the radiograph of 06/24/2016. ? Impression: ? 1. ??Right internal jugular centr al line with tip in the region of the ? SVC/RA junction. ? 2. ??Chondroid bony lesion proxim al left humerus, unchanged in ? comparison to May 2016. ? REPORT SIGNED IN OTHER VENDOR SYSTEM 07/30/2017 ?Reported B y: Maldonado Grijalva MD ? CC: ? Transcribed Date/Time: 07/30/2017 (1321) ? Front Desk Officer: ? Printed Date/Time: 10/17/2018 (12 21) ? PAGE 1 ? Haylee d Report ? Procedure Note Maldonado Grijalva MD - 03/05/2019 EXAM: RADIOLOGY/CHEST-PORTABLE EX. D/ (1303) CLINICAL INFORMATION: LINE PLACEMENT CHEST-PORTABLE 07/30/2017 1:03 PM Signs and Symptoms: ?CELLULITIS LINE PL ACEMENT Comparisons: 06/27/2017 Findings: A portable AP view of the chest was obt ained Semiupright. There may be multiple patchy multifocal pulmonary opacities alternatively, the appearance could rel ate to the presence of dense fibroglandular tissue within the breast s. The appearance is at any rate similar in comparison to the study of 06/27/2017. Again noted is the right internal jugular central veno us catheter with tip in the lower SVC. The cardiomediastinal silhou ette and pulmonary vascularity are normal for technique. No pneumothor ax or pleural effusion is identified. A sclerotic bony lesion is evident within the proximal left humerus. This lesion has a chondro id matrix and as such is most likely reflective of an enchondroma. It is unchanged in comparison to the radiograph of 06/24/2016. Impression: 1. Right internal jugular central line with tip in the region of the SVC/RA junction. 2. Chondroid bony lesion proximal left humerus, unchanged in comparison to May 2016. REPORT SIGNED IN OTHER VENDOR SYSTEM 07/30/2017 Reported By: Maldonado Grijalva MD CC: Transcribed Date/Time: 07/30/2017 (1172 ) Front Desk Officer: Printed Date/Time: 10/17/2018 (3115) PAGE 1 Signed Report Performing Organization Address [facility]/ZIP Code Phon e Number [facility] BLOOD CULTURE - [facility] (07/30/2017 12:32 EDT) Pathologist Sig nature BLOOD CULTURE - [facility] BLOOD CULTURE - NO GROWTH AT 5 [facility] Specimen Narrative [facility] - 018 7:17 EDT Does PT Have a Latex Allergy? NO Performing Organization Address City/[facility]/ZIP Code Phon e Number [facility] [address] [place] [address] LAB BLOOD CULTURE - [facility] (07/30/2017 12:00 EDT) Pathologist Sig nature BLOOD CULTURE - [facility] BLOOD CULTURE - NO GROWTH AT 5 [facility] Specimen Narrative [facility] - 018 12:51 EDT RIGHT AC Does PT Have a Latex Allergy? NO Performing Organization Address [facility] Code Phon e Number [facility] [address] LAB (ABNORMAL) C REACTIVE PROTEIN (07/30/2017 12:00 EDT) Pathologist Sig nature C-Reactive Protein 21.9 (H) <10.0 mg/L [facility] Specimen Narrative [facility] - 018 12:43 EDT Does PT Have a Latex Allergy? NO Performing Organization Address [facility] Code Phon e Number [facility] [address] LAB (ABNORMAL) COMPREHENSIVE METABOLIC PANEL (CMP) (07/30/2017 12:00 EDT) ALBUMIN - [facility] 3.1 (L) 3.4 - 4.9 [facility] g/dL [facility] ALKALINE 73 38 - 126 U/L [facility] PHOSPHATASE - [facility] BILIRUBIN TOTAL 0.3 0.2 - 1.3 [facility] mg/dL [facility] BUN - [facility] 22 10 - 26 mg/dL [facility] CALCIUM - [facility] 8.7 8.5 - 10.5 [facility] mg/dL [facility] Chloride 109 96 - 110 [facility] mmol/L [facility] CO2 Total 25 22 - 32 mEq/L [facility] CREATININE 0.95 0.52 - 1.04 [facility] mg/dL [facility] eGFR >60 [facility] Comment: [facility] Chronic renal impairment is defined as GFR <60 Multiply result by 1.210 for patients . eGFR calculated using the IDMS-traceable MDRD Study Equation. ??(effective 03/02/2014) Anion Gap 6 0 - 18 [facility] GLUCOSE - [facility] 89 70 - 100 [facility] mg/dL [facility] Potassium 4.1 3.5 - 5.0 [facility] mEq/L [facility] Sodium 140 136 - 145 [facility] mEq/L [facility] TOTAL PROTEIN - 6.7 6.2 - 8.2 [facility] gm/dL [facility] SGOT/AST - [facility] 39 (H) 14 - 36 U/L [facility] SGPT/ALT - [facility] 38 9 - 52 U/L [facility] Specimen Narrative [facility] - 018 12:43 EDT Does PT Have a Latex Allergy? NO Performing Organization Address City/[facility]/ZIP Code Phon e Number [facility] [address] LAB LACTIC ACID SEPSIS REFLEX - [facility] (07/30/2017 12:00 EDT) Pathologist Sig nature LACTIC ACID - [facility] 0.7 <2.0 mmol/L [facility] NTER LAB Specimen Narrative [facility] - 018 12:42 EDT Does PT Have a Latex Allergy? NO Performing Organization Address City/State/ZIP Code Phon e Number [facility] [address] LAB (ABNORMAL) COMPLETE BLOOD COUNT WITH DIFFERENTIAL (AUTO) (07/30/2017 12:00 EDT) Pathologist Sig nature ABSOLUTE NEUTROPHIL 5.33 1.7 - 7.0 [facility] COUN - [facility] 10e3/ul CENTER LAB BASO # - [facility] 0.02 0.0 - 0.3 [facility] 10e3/uL [facility] BASO % - [facility] 0 0 - 2 % [facility] EOS # - [facility] 0.20 0.05 - 0.5 [facility] 10e3/uL [facility] EOS % - [facility] 3 0 - 5 % [facility] GRAN % - [facility] 80 40 - 80 % [facility] HEMATOCRIT - [facility] 27.0 (L) 34.0 - 47.0 % [facility] HEMOGLOBIN - [facility] 8.3 (L) 11.2 - 15.7 [facility] g/dl [facility] IG# - [facility] 0.02 0 - 0.07 [facility] 10e3/uL [facility] IG% - [facility] 0.3 0 - 0.9 % [facility] LYMPH # - [facility] 0.66 (L) 0.9 - 2.9 [facility] 10e3/uL [facility] LYMPH% - [facility] 10 (L) 20 - 40 % [facility] MEAN CORPUSCULAR HGB 27.0 26 - 34 pg [facility] MEAN CORPUSCULAR HGB 30.7 (L) 31 - 36 g/dL [facility] CONC - [facility] CENTER LAB MEAN CELL VOLUME - 87.9 77 - 100 fl [facility] MONO # - [facility] 0.46 0.3 - 0.9 [facility] 10e3/uL [facility] MONO% - [facility] 7 0 - 12 % [facility] PLATELET COUNT 154 150 - 400 [facility] 10e3/ul [facility] RED BLOOD COUNT - 3.07 (L) 3.8 - 5.2 [facility] 10e6/ul [facility] RED CELL DISTRI WIDTH 14.9 11.8 - 15.6 % [facility] ME D - CV CENTER LAB WHITE BLOOD COUNT - 6.7 3.5 - 10.5 [facility] 10e3/ul [facility] Specimen Narrative [facility] - 04/02/2 018 12:21 EDT Does PT Have a Latex Allergy? NO Performing Organization Address City/State/ZIP Code Phon e Number [facility] [address] LAB documented in this encounter Visit Diagnoses Not on filedocumented in this encounter
--- OUTSIDE RECORDS SUMMARY | 2022-02-03 16:04 | XMS_ITS | Encounter Summary ---
:1980 Author Organization [facility] Address [address] [place] [address] Care Team Providers Name Role Phone Unavailable Primary Care Provider Unavailable Reason for Visit Reason Comments Post-OP Follow Up 06/29/17 Obturator bypass, Lele Ramos Encounter Details Date Type Department Care Team Description 07/23/2017 Office Visit [facility] Grzegorz Ramos MD [address] [facility], [facility], [address] [place] [address] S/P vascular surgery, Vascular Surgery - Nurse Practitioner, [facility] Surg follow-up exam [facility] (Primary Dx) [address] [place], [place] [id number] Social History Tobacco Use Types Packs/Day Years [...] Sign Reading Time Taken Comments Blood Pressure 118/84 07/23/2017 0932 EDT Pulse 78 07/23/2017 0932 EDT Temperature - - Respiratory Rate - [...] documented as of this encounter Progress Notes Arina Ziegler NP - 07/23/2017 1473 EDT SUBJECTIVE: Ms Odonnell comes in for her first postoperative visit following a right external iliac to superficial femoral artery obturator bypass with PTFE and incision and debridement of the right groin on 06/29/2017 which was performed for infected pseudoaneurysm. 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 Postoperatively she was found to have a right femoral DVT, but she is not on anticoagulation. She was treated with intravenous antibiotics in the hospital and then at discharge was converted to oral. She remains on oral antibiotics. She has been free of drug use since surgery, is working with a substance abuse clinic, which she states is going well. She denies fever or chills or pain. She is eating well. OBJECTIVE: Ms Odonnell looks well. She is in no distress and is calm and appropriate. The right groinwound is a 2 cm opening at the midpoint of the groin incision. There is clear fluid but no purulencethat I could express. The groin incision is nonerythematous except for in the julianna-wound area. I explored it using the stick end of a Q-tip and could not appreciate any undermining. It is 1 cm in depth. The right dorsalis pedis pulse is palpable and confirmed with Doppler and the posterior tibial pulseis a Doppler signal. The left foot has a palpable DP and palpable PT. The right lower calf does have2+ edema. The lower right calf is faintly erythematous but nontender. The calf and thigh are soft. The proximal incision across the right lateral abdomen is well healed, nontender to palpation and nonerythematous. All the david were removed and Steri Strips applied. IMPRESSION AND PLAN: Ms Odonnell is recovering from her hospitalization and bypass without any clinical signs of infection. We will continue the wet-to-dry dressings twice daily. I put her in a knee-high JAKY stocking and instructed her to get snug knee socks, especially for the right leg. She will continue on her doxycycline with management through her primary care and infectious disease doctor in [facility]. She will follow up with Dr Ramos with noninvasive imaging of her distal anastomosis and an JORDYN in approximately 2 weeks. Lindsay was encouraged on her drug cessation and reminded to eat well and rest and elevate her leg. She will continue on aspirin. documented in this encounter Plan of Treatment Not on filedocumented as of this encounter Visit Diagnoses Diagnosis S/P vascular surgery, follow-up exam - P rimary Follow-up examination, following other s urgery documented in this encounter Historical Medications This list may reflect changes made after this encounter. Medication Sig Dispensed Refills Start Date End Date buprenorphine-naloxone Place 12 mg under 0 (SUBOXONE) 12-3 mg film the tongue daily. doxycycline (ADOXA) 100 Take 100 mg by mouth 0 05/28/2018 mg tablet 2 times daily. added in this encounter
--- OUTSIDE RECORDS SUMMARY | 2022-02-03 16:04 | XMS_ITS | Encounter Summary ---
:1980 Author Organization [facility] Address [address] [place] [address] Care Team Providers Name Role Phone Unavailable Primary Care Provider Unavailable Encounter Details Date Type Department Care Team Description 04/01/2018 Hospital Encounter [phone] [place] [address] (Work) [place] [address] Social History Tobacco Use Types Packs/Day Years [...] Code Departure Means Destination Home or Self Residential documented in this encounter Plan of Treatment Not on filedocumented as of this encounter Visit Diagnoses Not on filedocumented in this encounter
--- OUTSIDE RECORDS SUMMARY | 2022-02-03 16:04 | XMS_ITS | Encounter Summary ---
:1980 Author Organization [facility] Address [address] [place] [address] Care Team Providers Name Role Phone Unavailable Primary Care Provider Unavailable Reason for Visit Reason Onset Date Comments Follow-up 07/07/2017 Encounter Details Date Type Department Care Team Description 07/07/2017 Telephone [facility] Nya Skaggs MD Follow-up Infectious Disease - Main [address] [place] [address], [address], [address] [place], [place] [phone] [place] [phone] (Wo rk) Social History Tobacco Use [...] or older) documented as of this encounter Ordered Prescriptions Prescription Sig Dispensed Refills Start Date End Date doxycycline (VIBRAMYCIN) Take 1 Cap by mouth 28 Cap 1 07/21/2017 100 mg capsule 2 times daily for 14 days. documented in this encounter Miscellaneous Notes Telephone Encounter - Nya Skaggs MD - 07/07/2017 1025 EST Phone call from [facility] [place]. Despite attempts X 90 minutes by DRAY DRIVER and ED with use of u/s, peripheral IV could not be placed. Given above, contingency plan of PO doxycycline 100 mg PO Q 12 hours initiated. I prescribed this to patient's pharmacy, [facility]. She will take the PO doxy this weekend. RN will instruct her to call our clinic Sunday for re-eval. Her current phone number differs from what is listed in [facility] and is the [phone] MD Komal documented in this encounter Plan of Treatment Not on filedocumented as of this encounter Visit Diagnoses Not on filedocumented in this encounter
--- OUTSIDE RECORDS SUMMARY | 2022-02-03 16:04 | XMS_ITS | Encounter Summary ---
:1980 Author Organization [facility] Address [address] [place] [address] Care Team Providers Name Role Phone Unavailable Primary Care Provider Unavailable Encounter Details Date Type Department Care Team Description 04/01/2018 Historical Results [facility] - Kassie Carter Only [facility] Radiology Resul shira Pascual MD 130 [facility] [address] [place], [place] [id number] [place] [address] [phone] Social History Tobacco Use Types Packs/Day [...] Associated Diagnosis Comme nts XR TIBIA FIBULA 04/01/2018 22:28 Results for this RIGHT 2 VIEWS EST procedure are in the results section. ROUTINE CULTURE - Routine 04/01/2018 20:55 Result s for this [facility] EST procedure are i n the results section. ROUTINE CULTURE - Routine 04/01/2018 20:55 Result s for this [facility] EST procedure are i n the results section. ROUTINE CULTURE - Routine 04/01/2018 20:45 Result s for this [facility] EST procedure are i n the results section. documented in this encounter Results XR TIBIA FIBULA RIGHT 2 VIEWS (04/01/2018 22:28 EST) Specimen Narrative [facility] RADIOLOGY - 04/01/2018 22:28 EST ? EXAM: RADIOLOGY/LOWER LEG RIGHT 2 VIEW ?EX. D/ (2158) ? CLINICAL INFORMATION: ? wound/pain ? EXAM: ?XR Right Tibia and Fibula, 2 Vi ews ? EXAM DATE/TIME: ?04/01/2018 9:16 PM ? CLINICAL HISTORY: ?37 years old, female; Pain; Low er leg; Right; Additional info: ? Wound/pain ? TECHNIQUE: ?XR Right tibia and fibula 2 vie ws ? COMPARISON: ?CR EXP CARE TIB/FIB RT 2V 2017 12:20 PM ? FINDINGS: ?Bones/joints: ??No acute fractu re. No dislocation. No definite ? cortical destruction. ?Soft tissues: ??Large soft tiss ue defect along mid lower leg. ? Few small calcifications. ? IMPRESSION: ? Large soft tissue defect along mi d lower leg. Clinical ? correlation is needed. ? REPORT SIGNED IN OTHER VENDOR SYSTEM 04/01/2018 ?Reported B y: Tom Alonzo MD ? CC: ? Transcribed Date/Time: 04/01/2018 (2227) ? Zoo Veterinarian: ? Printed Date/Time: 10/20/2018 (12 13) ? PAGE 1 ? Haylee d Report ? Procedure Note Tom Alonzo MD - 03/06/2019 EXAM: RADIOLOGY/LOWER LEG RIGHT 2 VIEW EX. D/ (2158) CLINICAL INFORMATION: wound/pain EXAM: XR Right Tibia and Fibula, 2 Views EXAM DATE/TIME: 04/01/2018 9:16 PM CLINICAL HISTORY: 37 years old, female; Pain; Lower leg; Right; Additional info: Wound/pain TECHNIQUE: XR Right tibia and fibula 2 views COMPARISON: CR EXP CARE TIB/FIB RT 2V 11/26/2017 12: 20 PM FINDINGS: Bones/joints: No acute fracture. No dis location. No definite cortical destruction. Soft tissues: Large soft tissue defect along mid lower leg. Few small calcifications. IMPRESSION: Large soft tissue defect along mid lowe r leg. Clinical correlation is needed. REPORT SIGNED IN OTHER VENDOR SYSTEM 04/01/2018 Reported By: Tom Alonzo MD CC: Transcribed Date/Time: 04/01/2018 (2227 ) [employer] Veterinarian: Printed Date/Time: 10/20/2018 (1213) PAGE 1 Signed Report Performing Organization Address City/State/ZIP Code Phon e Number [facility] RADIOLOGY ROUTINE CULTURE - [facility] (04/01/2018 20:55 EST) Culture [facility] The mecA gene product was NOT detected in this coagula se [facility] LAB positive Staph isolate. It is SUSCEPTIBLE to oxacillin , cephalosporins and other beta lactam antibiotics. STAPHYLOCOCCUS SP STAPHYLOCOCCUS SP [facility] COAG POSITIVE - [facility] COAG POS [facility] LAB QUANT - [facility] FEW [facility] USUAL SKIN VIRGIL - [facility] LAB QUANT - [facility] RARE [facility] Specimen Narrative [facility] - 018 7:29 EST Swab Source/Specimen Description: R groi n Organism Antibiotic Method Susceptibility Staphylococcus sp coag [...] <=0.25: S usceptible pos SUSCEPTIBILITY - [facility] Staphylococcus sp coag Levofloxacin GRAM POSITIVE <=0.12: S usceptible pos SUSCEPTIBILITY - [facility] Staphylococcus sp coag Oxacillin GRAM POSITIVE 0.5: Susc eptible pos SUSCEPTIBILITY - [facility] Staphylococcus sp coag Penicillin GRAM POSITIVE >=0.5: Re sistant pos SUSCEPTIBILITY - [facility] Staphylococcus sp coag Trimethoprim-Sulfame GRAM POSITIVE <=10 : Susceptible pos thoxazole SUSCEPTIBILITY - [facility] Staphylococcus sp coag Tetracycline GRAM POSITIVE <=1: Susc eptible pos SUSCEPTIBILITY - [facility] Staphylococcus sp coag Vancomycin GRAM POSITIVE <=0.5: Bryant sceptible pos SUSCEPTIBILITY - [facility] Comment: See Reason(s) for Study Performing Organization Address City/State/ZIP Code Phon e Number [facility] [address] [place], [place] [id number] [place] [address] LAB ROUTINE CULTURE - [facility] (04/01/2018 20:55 EST) PSEUDOMONAS PSEUDOMONAS [facility] AERUGINOSA - CV [facility] QUANT - [facility] MANY [facility]UARTII [facility] LAB QUANT - [facility] MODERATE [facility] Specimen Organism Antibiotic Method Susceptibility Pseudomonas Ceftazidime GRAM NEGATIVE 4: Susceptible aeruginosa SUSCEPTIBILITY - [facility] Pseudomonas Ciprofloxacin GRAM NEGATIVE <=0.25: Suscepti ble aeruginosa SUSCEPTIBILITY - [facility] Pseudomonas Cefepime GRAM NEGATIVE 2: Susceptible aeruginosa SUSCEPTIBILITY - [facility] Pseudomonas Gentamicin GRAM NEGATIVE <=1: Susceptible aeruginosa SUSCEPTIBILITY - CV Pseudomonas Imipenem GRAM NEGATIVE 2: Susceptible aeruginosa SUSCEPTIBILITY - CV Pseudomonas Levofloxacin GRAM NEGATIVE 1: Susceptible aeruginosa SUSCEPTIBILITY - [facility] Pseudomonas Piperacillin GRAM NEGATIVE 8: Susceptible aeruginosa Tazobactam SUSCEPTIBILITY - [facility] Pseudomonas Tobramycin GRAM NEGATIVE <=1: Susceptible aeruginosa SUSCEPTIBILITY - [facility] Comment: See Reason(s) for Study Providencia stuartii Ampicillin Sulbactam GRAM NEGATIVE 16: In termediate SUSCEPTIBILITY - [facility] Providencia stuartii Ampicillin GRAM NEGATIVE >=32: Resis tant SUSCEPTIBILITY - [facility] Providencia stuartii Ceftriaxone GRAM NEGATIVE <=1: Suscep tible SUSCEPTIBILITY - [facility] Providencia stuartii Cefazolin GRAM NEGATIVE 32: Resista nt SUSCEPTIBILITY - [facility] Providencia stuartii Ciprofloxacin GRAM NEGATIVE 0.5: Suscep tible SUSCEPTIBILITY - [facility] Providencia stuartii Cefepime GRAM NEGATIVE <=1: Suscep tible SUSCEPTIBILITY - [facility] Providencia stuartii Gentamicin GRAM NEGATIVE <=1: Resist ant SUSCEPTIBILITY - [facility] Providencia stuartii Imipenem GRAM NEGATIVE 1: Suscepti ble SUSCEPTIBILITY - [facility] Providencia stuartii Levofloxacin GRAM NEGATIVE 1: Suscepti ble SUSCEPTIBILITY - [facility] Providencia stuartii Piperacillin Tazobactam GRAM NEGATIVE <=4 : Susceptible SUSCEPTIBILITY - [facility] Providencia stuartii Trimethoprim-Sulfametho GRAM NEGATIVE <=2 0: Susceptible xazole SUSCEPTIBILITY - [facility] Providencia stuartii Tobramycin GRAM NEGATIVE <=1: Resist ant SUSCEPTIBILITY - [facility] Comment: See Reason(s) for Study Performing Organization Address City/State/ZIP Code Phon e Number [facility] [address] [place] [address] [facility] ROUTINE CULTURE - [facility] (04/01/2018 20:45 EST) Culture SOURCE: RIGHT CALF [facility] PSEUDOMONAS PSEUDOMONAS [facility] AERUGINOSA - [facility] QUANT - [facility] MANY [facility] PROVIDENCIA STUARTII PROVIDENCIA [facility] LAB QUANT - [facility] MODERATE [facility] Specimen Narrative [facility] - 018 7:40 EST Swab Source/Specimen Description: R calf Organism Antibiotic Method Susceptibility Pseudomonas Ceftazidime GRAM NEGATIVE 4: Susceptible aeruginosa SUSCEPTIBILITY - [facility] Pseudomonas Ciprofloxacin GRAM NEGATIVE <=0.25: Suscepti ble aeruginosa SUSCEPTIBILITY - CV Pseudomonas Cefepime GRAM NEGATIVE 2: Susceptible aeruginosa SUSCEPTIBILITY - CV Pseudomonas Gentamicin GRAM NEGATIVE <=1: Susceptible aeruginosa SUSCEPTIBILITY - CV Pseudomonas Imipenem GRAM NEGATIVE 2: Susceptible aeruginosa SUSCEPTIBILITY - CV Pseudomonas Levofloxacin GRAM NEGATIVE 1: Susceptible aeruginosa SUSCEPTIBILITY - CV Pseudomonas Piperacillin GRAM NEGATIVE 8: Susceptible aeruginosa Tazobactam SUSCEPTIBILITY - CV Pseudomonas Tobramycin GRAM NEGATIVE <=1: Susceptible aeruginosa SUSCEPTIBILITY - CV Comment: See Reason(s) for Study Providencia stuartii Ampicillin Sulbactam GRAM NEGATIVE 4: Concepcion ceptible SUSCEPTIBILITY - [facility] Providencia stuartii Ampicillin GRAM NEGATIVE 8: Resistan t SUSCEPTIBILITY - [facility] Providencia stuartii Ceftriaxone GRAM NEGATIVE <=1: Suscep tible SUSCEPTIBILITY - [facility] Providencia stuartii Cefazolin GRAM NEGATIVE >=64: Resis tant SUSCEPTIBILITY - [facility] Providencia stuartii Ciprofloxacin GRAM NEGATIVE 2: Intermed iate SUSCEPTIBILITY - [facility] Providencia stuartii Cefepime GRAM NEGATIVE <=1: Suscep tible SUSCEPTIBILITY - [facility] Providencia stuartii Gentamicin GRAM NEGATIVE <=1: Resist ant SUSCEPTIBILITY - [facility] Providencia stuartii Imipenem GRAM NEGATIVE 2: Suscepti ble SUSCEPTIBILITY - [facility] Providencia stuartii Levofloxacin GRAM NEGATIVE 2: Suscepti ble SUSCEPTIBILITY - [facility] Providencia stuartii Piperacillin Tazobactam GRAM NEGATIVE <=4 : Susceptible SUSCEPTIBILITY - [facility] Providencia stuartii Trimethoprim-Sulfametho GRAM NEGATIVE <=2 0: Susceptible xazole SUSCEPTIBILITY - [facility] Providencia stuartii Tobramycin GRAM NEGATIVE <=1: Resist ant SUSCEPTIBILITY - [facility] Comment: See Reason(s) for Study Performing Organization Address City/State/ZIP Code Phon e Number [facility] [address] [place], [place] [id number] [place] [address] LAB documented in this encounter Visit Diagnoses Not on filedocumented in this encounter
--- OUTSIDE RECORDS SUMMARY | 2022-02-03 16:04 | XMS_ITS | Encounter Summary ---
:1980 Author Organization [facility] Address [address] [place] [address] Care Team Providers Name Role Phone Unavailable Primary Care Provider Unavailable Encounter Details Date Type Department Care Team Description 01/09/2018 Historical Results [facility] - Whitney Blount ra, Only [facility] Lab - Main [id number] [place] [id number] (Wo rk) Social History Tobacco Use Types [...] Diagnosis Comme nts C REACTIVE PROTEIN Routine 01/09/2018 10:23 Resul ts for this EDT procedure are i n the results section. C REACTIVE PROTEIN Routine 01/09/2018 10:23 Resul ts for this EDT procedure are i n the results section. BASIC METABOLIC Routine 01/09/2018 10:23 Results for this PANEL (BMP) EDT procedure are i n the results section. documented in this encounter Results (ABNORMAL) C REACTIVE PROTEIN (01/09/2018 10:23 EDT) Pathologist Sig nature C-Reactive Protein 21.8 (H) <10.0 mg/L [facility] Specimen Narrative [facility] - 018 12:16 EDT EXTREMELY HARD STICK, FINGER STICK, MICROTAINER Does PT Have a Latex Allergy? NO Performing Organization Address City/State/ZIP Code Phon e Number [facility] [address] LAB (ABNORMAL) BASIC METABOLIC PANEL (BMP) (01/09/2018 10:23 EDT) BUN - [facility] 12 10 - 26 mg/dL [facility] CALCIUM - [facility] 9.0 8.5 - 10.5 [facility] mg/dL [facility] Chloride 105 96 - 110 [facility] mmol/L [facility] CO2 Total 21 (L) 22 - 32 mEq/L [facility] CREATININE 0.83 0.52 - 1.04 [facility] mg/dL [facility] eGFR >60 [facility] Comment: [facility] Chronic renal impairment is defined as GFR <60 Multiply result by 1.210 for patients . eGFR calculated using the IDMS-traceable MDRD Study Equation. ??(effective 03/02/2014) Anion Gap 12 0 - 18 [facility] GLUCOSE - [facility] 82 70 - 100 mg/dL [facility] Potassium 4.5 3.5 - 5.0 [facility] mEq/L [facility] Sodium 138 136 - 145 [facility] mEq/L [facility] Specimen Narrative [facility] - 09/12/2 018 12:16 EDT EXTREMELY HARD STICK, FINGER STICK, MICROTAINER Does PT Have a Latex Allergy? NO Performing Organization Address City/State/ZIP Code Phon e Number [facility] [address] [place], [place] [id number] [place] [address] LAB (ABNORMAL) C REACTIVE PROTEIN (01/09/2018 10:23 EDT) Pathologist Sig nature SED RATE - [facility] 56 (H) 1 - 17 mm/hr [facility] Specimen Narrative [facility] - 018 12:08 EDT EXTREMELY HARD STICK, FINGER STICK, MICROTAINER Does PT Have a Latex Allergy? NO Performing Organization Address City/State/ZIP Code Phon e Number [facility] [address] [place] [address] [facility] documented in this encounter Visit Diagnoses Not on filedocumented in this encounter
--- OUTSIDE RECORDS SUMMARY | 2022-02-03 16:04 | XMS_ITS | Encounter Summary ---
:1980 Author Organization [facility] Address [address] [place] [address] Care Team Providers Name Role Phone Unavailable Primary Care Provider Unavailable Encounter Details Date Type Department Care Team Description 07/31/2017 Historical Results [facility] - [facility] Radiology Resul MD Lindsay [address] [facility] [address] [place], [place] [id number] [place] [address] [phone] Social History Tobacco Use Types Packs/Day [...] Procedure Name Priority Date/Time Associated Comments Diagnosis MR ANKLE W WO CONTRAST 07/31/2017 16:20 R esults for this RIGHT EDT procedure are i n the results section. MR FOOT W WO CONTRAST 07/31/2017 16:20 Re sults for this RIGHT EDT procedure are i n the results section. COMPLETE BLOOD COUNT Routine 07/31/2017 6:00 Resu lts for this WITH DIFFERENTIAL EDT procedure are in (AUTO) the results section. MAGNESIUM Routine 07/31/2017 6:00 Results for this EDT procedure are i n the results section. IRON Routine 07/31/2017 6:00 Results for this EDT procedure are i n the results section. FERRITIN Routine 07/31/2017 6:00 Results for this EDT procedure are i n the results section. COMPREHENSIVE Routine 07/31/2017 6:00 Results for this METABOLIC PANEL (CMP) EDT proced ure are in the results section. documented in this encounter Results MR FOOT W WO CONTRAST RIGHT (07/31/2017 16:20 EDT) Specimen Narrative [facility] - 07/31/2017 16:23 EDT ? EXAM: MAGNETIC RESONANCE IMAGING/FOOT RT ??EX. D/ (1600) ? CLINICAL INFORMATION: ? known infection, h/o osteo increa sing right ankle/foot pain ? INDICATION: known infection, h/o osteo increasing right ankle/foot ? pain INFECTED SURGICAL WOUND ? TECHNIQUE: ??Multiplanar multiseq uence MR imaging of the right foot ? and ankle was obtained with and w ithout gadolinium contrast. ? COMPARISON: 07/03/2016. ? FINDINGS: The large plantar absce ss previously seen at the level of ? the metatarsals and extending pro ximally along the plantar surface of ? the foot into the tarsal area has resolved. I currently do not see a ? clear circumscribed fluid collect ion in this area. I do note ? persistent ill-defined edema and enhancement throughout the soft ? tissues along the plantar surface of the foot. Rhythm more, there is ? abnormal edema within the muscula r structures along the more medial ? surface of the foot (series 7 gina ge 21), with some abnormal muscular ? enhancement in this region. There is edema within the mid shaft of ? the 3rd metatarsal, somewhat impr mario from the prior study. Trace ? enhancement is seen within the 3r d metatarsal shaft. Also, the ? extensive mid shaft bone edema wi thin the 2nd and 4th metatarsals ? appears improved from the prior s tudy with only minimal bone edema ? now seen. There appears to be jennifer y early joint space narrowing at the ? great toe MTP joint. The remainin g MTP joints appear unremarkable. ? The interphalangeal joints are we ll aligned and are normal in ? appearance. ? IMPRESSION: ? 1. Interval resolution of the sharif ntar metatarsal area large abscess ? seen on the prior study. Residual but improved soft tissue edema and ? enhancement is seen throughout th is area consistent with cellulitis. ? 2. Improved osseous edema and enh ancement of the metatarsals. ? Currently, there is a moderate am ount of residual mid shaft 3rd ? metatarsal edema and enhancement, with near complete resolution of ? the edema and enhancement of the 2nd and 4th metatarsals noted on the ? prior study. ? REPORT SIGNED IN OTHER VENDOR SYSTEM 07/31/2017 ?Reported B y: Yan Aguillon MD ? CC: ? Transcribed Date/Time: 07/31/2017 (1073) ? Technology Solutions Architect: ? Printed Date/Time: 10/17/2018 (12 ) ? PAGE 1 ? Haylee d Report ? Procedure Note Yan Aguillon MD - 03/05/2019 EXAM: MAGNETIC RESONANCE IMAGING/FOOT R T EX. D/ (1600) CLINICAL INFORMATION: known infection, h/o osteo increasing r ight ankle/foot pain INDICATION: known infection, h/o osteo increasing right ankle/foot pain INFECTED SURGICAL WOUND TECHNIQUE: Multiplanar multisequence MR imaging of the right foot and ankle was obtained with and without gadolinium contrast. COMPARISON: 07/03/2016. FINDINGS: The large plantar abscess pre viously seen at the level of the metatarsals and extending proximall y along the plantar surface of the foot into the tarsal area has resol zayra. I currently do not see a clear circumscribed fluid collection in this area. I do note persistent ill-defined edema and enhanc ement throughout the soft tissues along the plantar surface of th e foot. Rhythm more, there is abnormal edema within the muscular stru ctures along the more medial surface of the foot (series 7 image 21) , with some abnormal muscular enhancement in this region. There is ed kenny within the mid shaft of the 3rd metatarsal, somewhat improved f rom the prior study. Trace enhancement is seen within the 3rd meta tarsal shaft. Also, the extensive mid shaft bone edema within t he 2nd and 4th metatarsals appears improved from the prior study w ith only minimal bone edema now seen. There appears to be very scar y joint space narrowing at the great toe MTP joint. The remaining MTP joints appear unremarkable. The interphalangeal joints are well ali gned and are normal in appearance. IMPRESSION: 1. Interval resolution of the plantar m etatarsal area large abscess seen on the prior study. Residual but i mproved soft tissue edema and enhancement is seen throughout this are a consistent with cellulitis. 2. Improved osseous edema and enhanceme nt of the metatarsals. Currently, there is a moderate amount o f residual mid shaft 3rd metatarsal edema and enhancement, with near complete resolution of the edema and enhancement of the 2nd an d 4th metatarsals noted on the prior study. REPORT SIGNED IN OTHER VENDOR SYSTEM 07/31/2017 Reported By: Yan Aguillon MD CC: Transcribed Date/Time: 07/31/2017 (6917 ) Technology Solutions Architect: Printed Date/Time: 10/17/2018 (2884) PAGE 1 Signed Report Performing Organization Address City/State/ZIP Code Phon e Number [facility] MR ANKLE W WO CONTRAST RIGHT (07/31/2017 16:20 EDT) Specimen Narrative [facility] - 07/31/2017 16:23 EDT ? EXAM: MAGNETIC RESONANCE IMAGING/ANKLE RT EX. D/ (1391) ? CLINICAL INFORMATION: ? INDICATION: known infection, h/o osteo increasing right ankle/foot ? pain INFECTED SURGICAL WOUND ? TECHNIQUE: ??Multiplanar multiseq uence MR imaging of the right foot ? and ankle was obtained with and w ithout gadolinium contrast. ? COMPARISON: 07/03/2016. ? FINDINGS: The large plantar absce ss previously seen at the level of ? the metatarsals and extending pro ximally along the plantar surface of ? the foot into the tarsal area has resolved. I currently do not see a ? clear circumscribed fluid collect ion in this area. I do note ? persistent ill-defined edema and enhancement throughout the soft ? tissues along the plantar surface of the foot. Rhythm more, there is ? abnormal edema within the muscula r structures along the more medial ? surface of the foot (series 7 gina ge 21), with some abnormal muscular ? enhancement in this region. There is edema within the mid shaft of ? the 3rd metatarsal, somewhat impr mario from the prior study. Trace ? enhancement is seen within the 3r d metatarsal shaft. Also, the ? extensive mid shaft bone edema wi thin the 2nd and 4th metatarsals ? appears improved from the prior s tudy with only minimal bone edema ? now seen. There appears to be jennifer y early joint space narrowing at the ? great toe MTP joint. The remainin g MTP joints appear unremarkable. ? The interphalangeal joints are we ll aligned and are normal in ? appearance. ? IMPRESSION: ? 1. Interval resolution of the sharif ntar metatarsal area large abscess ? seen on the prior study. Residual but improved soft tissue edema and ? enhancement is seen throughout th is area consistent with cellulitis. ? 2. Improved osseous edema and enh ancement of the metatarsals. ? Currently, there is a moderate am ount of residual mid shaft 3rd ? metatarsal edema and enhancement, with near complete resolution of ? the edema and enhancement of the 2nd and 4th metatarsals noted on the ? prior study. ? REPORT SIGNED IN OTHER VENDOR SYSTEM 07/31/2017 ?Reported B y: Yan Aguillon MD ? CC: ? Transcribed Date/Time: 07/31/2017 (7043) ? Technology Solutions Architect: ? Printed Date/Time: 10/17/2018 (12 21) ? PAGE 1 ? Haylee d Report ? Procedure Note Yan Aguillon MD - 03/05/2019 EXAM: MAGNETIC RESONANCE IMAGING/ANKLE RT EX. D/ (7261) CLINICAL INFORMATION: INDICATION: known infection, h/o osteo increasing right ankle/foot pain INFECTED SURGICAL WOUND TECHNIQUE: Multiplanar multisequence MR imaging of the right foot and ankle was obtained with and without gadolinium contrast. COMPARISON: 07/03/2016. FINDINGS: The large plantar abscess pre viously seen at the level of the metatarsals and extending proximall y along the plantar surface of the foot into the tarsal area has resol zayra. I currently do not see a clear circumscribed fluid collection in this area. I do note persistent ill-defined edema and enhanc ement throughout the soft tissues along the plantar surface of th e foot. Rhythm more, there is abnormal edema within the muscular stru ctures along the more medial surface of the foot (series 7 image 21) , with some abnormal muscular enhancement in this region. There is ed kenny within the mid shaft of the 3rd metatarsal, somewhat improved f rom the prior study. Trace enhancement is seen within the 3rd meta tarsal shaft. Also, the extensive mid shaft bone edema within t he 2nd and 4th metatarsals appears improved from the prior study w ith only minimal bone edema now seen. There appears to be very scar y joint space narrowing at the great toe MTP joint. The remaining MTP joints appear unremarkable. The interphalangeal joints are well ali gned and are normal in appearance. IMPRESSION: 1. Interval resolution of the plantar m etatarsal area large abscess seen on the prior study. Residual but i mproved soft tissue edema and enhancement is seen throughout this are a consistent with cellulitis. 2. Improved osseous edema and enhanceme nt of the metatarsals. Currently, there is a moderate amount o f residual mid shaft 3rd metatarsal edema and enhancement, with near complete resolution of the edema and enhancement of the 2nd an d 4th metatarsals noted on the prior study. REPORT SIGNED IN OTHER VENDOR SYSTEM 07/31/2017 Reported By: Yan Aguillon MD CC: Transcribed Date/Time: 07/31/2017 (4761 ) Technology Solutions Architect: Printed Date/Time: 10/17/2018 (8448) PAGE 1 Signed Report Performing Organization Address City/State/ZIP Code Phon e Number [facility] MAGNESIUM (07/31/2017 6:00 EDT) Pathologist Sig nature Magnesium 1.80 1.7 - 2.8 mg/dL [facility] R LAB Specimen Performing Organization Address City/State/ZIP Code Phon e Number [facility] [address] [place], [place] [id number] [place] [address] LAB FERRITIN (07/31/2017 6:00 EDT) Pathologist Sig nature [place]ITIN - [facility] [place] 6.2 - 137.0 ng/mL [facility] Specimen Performing Organization Address City/[facility] Code Phon e Number [facility] [address] [place] [address] [facility] (ABNORMAL) IRON (07/31/2017 6:00 EDT) Pathologist Sig nature SERUM IRON - [facility] 13 (L) 37 - 170 ug/dL [facility] Specimen Performing Organization Address [facility] Code Phon e Number [facility] [address] [place] [address] [facility] (ABNORMAL) COMPREHENSIVE METABOLIC PANEL (CMP) (07/31/2017 6:00 EDT) ALBUMIN - [facility] 2.7 (L) 3.4 - 4.9 [facility] g/dL [facility] ALKALINE 76 38 - 126 U/L [facility] PH[facility]ATASE [facility] BILIRUBIN TOTAL 0.3 0.2 - 1.3 [facility] mg/dL [facility] BUN - [facility] 19 10 - 26 mg/dL [facility] CALCIUM - [facility] 8.4 (L) 8.5 - 10.5 [facility] mg/dL [facility] Chloride 108 96 - [address] [facility] mmol/L [facility] CO2 Total 24 22 - 32 mEq/L [facility] CREATININE 0.79 0.52 - 1.04 [facility] mg/dL [facility] eGFR >60 [facility] Comment: [facility] Chronic renal impairment is defined as GFR <60 Multiply result by 1.210 for patients . eGFR calculated using the IDMS-traceable MDRD Study Equation. ??(effective 03/02/2014) Anion Gap 7 0 - 18 [facility] GLUCOSE - [facility] 82 70 - 100 [facility] mg/dL [facility] Potassium 4.1 3.5 - 5.0 [facility] mEq/L [facility] Sodium 139 136 - 145 [facility] mEq/L [facility] TOTAL PROTEIN - 5.8 (L) 6.2 - 8.2 [facility] gm/dL [facility] SGOT/AST - [facility] 34 14 - 36 U/L [facility] SGPT/ALT - [facility] 35 9 - 52 U/L [facility] Specimen Performing Organization Address [facility]/ZIP Code Phon e Number [facility] [address] [place], [place] [id number] [place] [address] LAB (ABNORMAL) COMPLETE BLOOD COUNT WITH DIFFERENTIAL (AUTO) (07/31/2017 6:00 EDT) Pathologist Sig nature ABSOLUTE NEUTROPHIL 1.78 1.7 - 7.0 [facility] COUN - [facility] 10e3/ul CENTER LAB BASO # - [facility] 0.02 0.0 - 0.3 [facility] 10e3/uL [facility] BASO % - [facility] 1 0 - 2 % [facility] EOS # - [facility] 0.23 0.05 - 0.5 [facility] 10e3/uL [facility] EOS % - [facility] 7 (H) 0 - 5 % [facility] GRAN % - [facility] 50 40 - 80 % [facility] HEMATOCRIT - [facility] 26.4 (L) 34.0 - 47.0 % [facility] HEMOGLOBIN - [facility] 8.1 (L) 11.2 - 15.7 [facility] g/dl [facility] IG# - [facility] 0.01 0 - 0.07 [facility] 10e3/uL [facility] IG% - [facility] 0.3 0 - 0.9 % [facility] LYMPH # - [facility] 1.01 0.9 - 2.9 [facility] 10e3/uL [facility] LYMPH% - [facility] 28 20 - 40 % [facility] MEAN CORPUSCULAR HGB 27.2 26 - [address] [facility] MED [facility] MEAN CORPUSCULAR HGB 30.7 (L) 31 - 36 g/dL [facility] CONC - [facility] LAB MEAN CELL VOLUME - 88.6 77 - 100 fl [facility] MONO # - [facility] 0.51 0.3 - 0.9 [facility] 10e3/uL [facility] MONO% - [facility] 14 (H) 0 - 12 % [facility] PLATELET COUNT 156 150 - 400 [facility] 10e3/ul [facility] RED BLOOD COUNT - 2.98 (L) 3.8 - 5.2 [facility] 10e6/ul [facility] RED CELL DISTRI WIDTH 15.1 11.8 - 15.6 % [facility] D - CV CENTER LAB WHITE BLOOD COUNT - 3.6 3.5 - 10.5 [facility] 10e3/ul CENTER LAB Specimen Performing Organization Address City/State/ZIP Code Phon e Number [facility] [address] [place], [place] [id number] [place] [address] LAB documented in this encounter Visit Diagnoses Not on filedocumented in this encounter
--- OUTSIDE RECORDS SUMMARY | 2022-02-03 16:04 | XMS_ITS | Encounter Summary ---
:1980 Author Organization [facility] Address [address] [place] [address] Care Team Providers Name Role Phone Unavailable Primary Care Provider Unavailable Encounter Details Date Type Department Care Team Description 08/01/2017 Historical Results [facility] Radiology Resul MD Lindsay [address] [facility] [address] [place], [place] [address] [place] [address] [phone] Social History Tobacco Use Types Packs/Day [...] Name Priority Date/Time Associated Comments Diagnosis MR LOWER EXTREMITY 08/01/2017 14:59 Resul ts for this EDT procedure are i n the results section. COMPLETE BLOOD COUNT Routine 08/01/2017 6:00 Resu lts for this WITH DIFFERENTIAL EDT procedure are in (AUTO) the results section. COMPREHENSIVE Routine 08/01/2017 6:00 Results for this METABOLIC PANEL (CMP) EDT proced ure are in the results section. documented in this encounter Results MR LOWER EXTREMITY (08/01/2017 14:59 EDT) Specimen Narrative [facility] - 08/01/2017 15:02 EDT ? EXAM: MAGNETIC RESONANCE IMAGING/LOWER EX EX. D/ (1421) ? CLINICAL INFORMATION: ? RIGHT TIB FIB EVAL FOR OSTEO ? INDICATION: ? RIGHT TIB FIB E KINGS FOR OSTEO ??INFECTED SURGICAL WOUND ? TECHNIQUE: ??Multiplanar multiseq uence pre and postcontrast MR imaging ? of the lower extremity lower leg was obtained. Imaging was obtained ? from the tibial metaphyseal regio n to the level of the ankle. 10 mL ? gadolinium contrast was utilized. ? COMPARISON: MRI right foot and an kle 07/31/2017. CTA lower extremity ? 06/27/2017. ? FINDINGS: There is edema of the s ubcutaneous fat throughout the right ? lower leg area extending from the visualized portions of the proximal ? calf through to the level of the ankle. No circumscribed abnormal ? fluid collections within the subc utaneous soft tissues is seen and no ? circumscribed rim-enhancing fluid collections are noted within the ? subcutaneous fat or deep soft tis sues. The cortex of the adjacent ? tibia appears intact. No abnormal medullary space or cortical ? enhancement or bone edema is note d. Similarly, within the left lower ? leg, the subcutaneous fat, deep m uscular structures and bony ? structures appear unremarkable. ? IMPRESSION: ? 1. Extensive induration/edema thr oughout the subcutaneous fat of the ? right lower leg. No circumscribed abscess and no imaging evidence of ? osteomyelitis of the visualized p ortions of the right tibia or fibula ? detected. ? REPORT SIGNED IN OTHER VENDOR SYSTEM 08/01/2017 ?Reported B y: Yan Aguillon MD ? CC: ? Transcribed Date/Time: 08/01/2017 (1502) ? Cork Insulation Setter: .FABIANASCR ? Printed Date/Time: 10/17/2018 (12 ) ? PAGE 1 ? Haylee d Report ? Procedure Note Yan Aguillon MD - 03/05/2019 EXAM: MAGNETIC RESONANCE IMAGING/LOWER EX EX. D/ (1421) CLINICAL INFORMATION: RIGHT TIB FIB EVAL FOR OSTEO INDICATION: RIGHT TIB FIB EVAL FOR OSTE O INFECTED SURGICAL WOUND TECHNIQUE: Multiplanar multisequence pr e and postcontrast MR imaging of the lower extremity lower leg was ob tained. Imaging was obtained from the tibial metaphyseal region to t he level of the ankle. 10 mL gadolinium contrast was utilized. COMPARISON: MRI right foot and ankle 07/31/2017. CTA lower extremity 06/27/2017. FINDINGS: There is edema of the subcuta neous fat throughout the right lower leg area extending from the visua lized portions of the proximal calf through to the level of the ankle. No circumscribed abnormal fluid collections within the subcutaneo us soft tissues is seen and no circumscribed rim-enhancing fluid colle ctions are noted within the subcutaneous fat or deep soft tissues. The cortex of the adjacent tibia appears intact. No abnormal medul sanford space or cortical enhancement or bone edema is noted. Sim ilarly, within the left lower leg, the subcutaneous fat, deep muscula r structures and bony structures appear unremarkable. IMPRESSION: 1. Extensive induration/edema throughou t the subcutaneous fat of the right lower leg. No circumscribed absce ss and no imaging evidence of osteomyelitis of the visualized portion s of the right tibia or fibula detected. REPORT SIGNED IN OTHER VENDOR SYSTEM 08/01/2017 Reported By: Yan Aguillon MD CC: Transcribed Date/Time: 08/01/2017 (8477 ) Cork Insulation Setter: Printed Date/Time: 10/17/2018 (5470) PAGE 1 Signed Report Performing Organization Address City/State/ZIP Code Phon e Number [facility] (ABNORMAL) COMPREHENSIVE METABOLIC PANEL (CMP) (08/01/2017 6:00 EDT) ALBUMIN - [facility] 2.8 (L) 3.4 - 4.9 [facility] g/dL [facility] ALKALINE 70 38 - 126 U/L [facility] PHOSPHATASE - [facility] BILIRUBIN TOTAL <0.2 (L) 0.2 - 1.3 [facility] mg/dL [facility] BUN - [facility] 19 10 - 26 mg/dL [facility] CALCIUM - [facility] 8.8 8.5 - 10.5 [facility] mg/dL [facility] Chloride 109 96 - 110 [facility] mmol/L [facility] CO2 Total 26 22 - 32 mEq/L [facility] CREATININE 0.79 0.52 - 1.04 [facility] mg/dL [facility] eGFR >60 [facility] Comment: [facility] Chronic renal impairment is defined as GFR <60 Multiply result by 1.210 for patients . eGFR calculated using the IDMS-traceable MDRD Study Equation. ??(effective 03/02/2014) Anion Gap 4 0 - 18 [facility] GLUCOSE - [facility] 87 70 - 100 [facility] mg/dL [facility] Potassium 4.3 3.5 - 5.0 [facility] mEq/L [facility] Sodium 139 136 - 145 [facility] mEq/L [facility] TOTAL PROTEIN - 6.1 (L) 6.2 - 8.2 [facility] gm/dL [facility] SGOT/AST - CV 41 (H) 14 - 36 U/L [facility] SGPT/ALT - [facility] 35 9 - 52 U/L [facility] Specimen Performing Organization Address City/State/ZIP Code Phon e Number [facility] [address] [place] [address] [facility] (ABNORMAL) COMPLETE BLOOD COUNT WITH DIFFERENTIAL (AUTO) (08/01/2017 6:00 EDT) Pathologist Sig nature ABSOLUTE NEUTROPHIL 1.32 (L) 1.7 - 7.0 [facility] COUN - [facility] 10e3/ul [place] BASO # - [facility] 0.02 0.0 - 0.3 [facility] 10e3/uL [place] [facility] BASO % - [facility] 1 0 - 2 % [facility] EOS # - [facility] 0.23 0.05 - 0.5 [facility] 10e3/uL [place] [facility] EOS % - [facility] 8 (H) 0 - 5 % [facility] GRAN % - [facility] 46 40 - 80 % [facility] HEMATOCRIT - [facility] 26.7 (L) 34.0 - 47.0 % [facility] HEMOGLOBIN - [facility] 8.2 (L) 11.2 - 15.7 [facility] g/dl [place] [facility] IG# - [facility] 0.01 0 - 0.07 [facility] 10e3/uL [place] [facility] IG% - [facility] 0.4 0 - 0.9 % [facility] LYMPH # - [facility] 0.92 0.9 - 2.9 [facility] 10e3/uL [place] [facility] LYMPH% - [facility] 32 20 - 40 % [facility] MEAN CORPUSCULAR HGB 27.2 26 - 34 pg [facility] MED - [facility]ENTER LAB MEAN CORPUSCULAR HGB 30.7 (L) 31 - 36 g/dL [facility] CONC - [facility] LAB MEAN CELL VOLUME - 88.4 77 - 100 fl [facility] LAB MONO # - [facility] 0.35 0.3 - 0.9 [facility] 10e3/uL [place] [facility] MONO% - [facility] 12 0 - 12 % [facility] PLATELET COUNT 167 150 - 400 [facility] 10e3/ul CENTER LAB RED BLOOD COUNT - 3.02 (L) 3.8 - 5.2 [facility] 10e6/ul [facility]ENTER LAB RED CELL DISTRI WIDTH 15.0 11.8 - 15.6 % [facility] ME D - [facility] WHITE BLOOD COUNT - 2.9 (L) 3.5 - 10.5 [facility] 10e3/ul [place] [facility] Specimen Performing Organization Address City/State/ZIP Code Phon e Number [facility] [address] [place], [place] [id number] [place] [address] LAB documented in this encounter Visit Diagnoses Not on filedocumented in this encounter
--- OUTSIDE RECORDS SUMMARY | 2022-02-03 16:04 | XMS_ITS | Encounter Summary ---
:1980 Author Organization [facility] Address [address] [place] [address] Care Team Providers Name Role Phone Unavailable Primary Care Provider Unavailable Reason for Visit Reason Onset Date Comments Home Health 07/10/2017 Encounter Details Date Type Department Care Team Description 07/10/2017 Telephone [facility] Case Management Nya Blandon, JARRED [facility] - Main [place] [address] [place] [address] MAIN DEPARTMENT [phone] Social History Tobacco Use Types Packs/Day Years [...] encounter Miscellaneous Notes Telephone Encounter - Nya Blandon RN - 07/10/2017 1608 EDT Patient referred for home health services for wound care with [facility] per request from clinic nurse. Orders written by discharge team. CM attempted to call patient using both her phone and her spouse's phone numbers; unable to leave message. These were not set up prior to discharge as patient was referred to the wound clinic at [facility] since she was scheduled for daily IV antibiotic infusions. Referral made to [facility] liaison but they will need to be able to contact patient prior to visit. Nya Blandon RN Inpatient CM documented in this encounter Plan of Treatment Not on filedocumented as of this encounter Visit Diagnoses Not on filedocumented in this encounter
--- OUTSIDE RECORDS SUMMARY | 2022-02-03 16:04 | XMS_ITS | Encounter Summary ---
:1980 Author Organization [facility] Address [address] [place] [address] Care Team Providers Name Role Phone Ratna Olivas MD Primary Care Provider Encounter Details Date Type Department Care Team Description 09/28/2017 Historical Results [facility] - Frank Loya, Only [facility] - Main [place] [address] [place] [address] [place], [place] [address] [place] [address] [address] [place] [address] (Wo rk) Social History Tobacco Use Types [...] Priority Date/Time Associated Comments Diagnosis BACTERIAL Routine 09/28/2017 9:30 Results for this CULTURE/SMEAR, EDT procedure are in RESPIRATORY the results section. documented in this encounter Results BACTERIAL CULTURE/SMEAR, RESPIRATORY (09/28/2017 9:30 EDT) GRAM STAIN - [facility] TWO SWABS RECEIVED [facility] FOR CULTURE AND MED CENTER LAB GRAM STAIN GRAM POSITIVE COCCI [facility] WBC RARE [facility] YEAST - [facility] LAB PSEUDOMONAS PSEUDOMONAS [facility] AERUGINOSA - [facility]A [facility] CENTER LAB QUANT - [facility] USUAL SKIN VIRGIL - [facility]F [facility] MED CENTER LAB QUANT - [facility] LAB Specimen Organism Antibiotic Method Susceptibility Pseudomonas Ceftazidime GRAM NEGATIVE 4: Susceptible aeruginosa SUSCEPTIBILITY - [facility] Pseudomonas Ciprofloxacin GRAM NEGATIVE <=0.25: Suscepti ble aeruginosa SUSCEPTIBILITY - [facility] Pseudomonas Cefepime GRAM NEGATIVE 2: Susceptible aeruginosa SUSCEPTIBILITY - [facility] Pseudomonas Gentamicin GRAM NEGATIVE 2: Susceptible aeruginosa SUSCEPTIBILITY - [facility] Pseudomonas Imipenem GRAM NEGATIVE 2: Susceptible aeruginosa SUSCEPTIBILITY - [facility] Pseudomonas Levofloxacin GRAM NEGATIVE 1: Susceptible aeruginosa SUSCEPTIBILITY - [facility] Pseudomonas Piperacillin GRAM NEGATIVE 8: Susceptible aeruginosa Tazobactam SUSCEPTIBILITY - [facility] Pseudomonas Tobramycin GRAM NEGATIVE <=1: Susceptible aeruginosa SUSCEPTIBILITY - [facility] Comment: See Reason(s) for Study Performing Organization Address City/State/ZIP Code Phon e Number [facility] [address] [place] [address] [facility] documented in this encounter Visit Diagnoses Not on filedocumented in this encounter Care Teams Epilepsy Physician Relationship Specialty Start Date End Date Ratna Olivas MD PCP - General 03/05/[address] [place] [phone] documented as of this encounter
--- OUTSIDE RECORDS SUMMARY | 2022-02-03 16:04 | XMS_ITS | Encounter Summary ---
:1980 Author Organization [facility] Address [address] [place] [address] Care Team Providers Name Role Phone Unavailable Primary Care Provider Unavailable Reason for Visit Reason Onset Date Comments Appointment Related 08/22/2017 PATIENT WAS A NO BRIGHT W FOR THE LAB AND DR CORNELIUS ON 08/22/17 Encounter Details Date Type Department Care Team Description 08/22/2017 Telephone [facility] Grzegorz Cornelius, Appointment Related Vascular Surgery - (PATIENT WAS A NO SHOW [facility] [address] [facility] FOR THE LAB AND DR [address] [facility], Main ADRYAN ON 08/22/17) [place] [address] [address], [place] [phone] (Wo rk) Social History Tobacco Use Types [...] encounter Miscellaneous Notes Telephone Encounter - Norma Jin - 08/24/2017 1149 EDT Left message for patient to call and schedule missed appointment elephone Encounter - Sandra Wu - 08/22/2017 1629 EDT PATIENT WAS A NO SHOW FOR THE LAB AND DR CORNELIUS ON 08/22/17 documented in this encounter Plan of Treatment Not on filedocumented as of this encounter Visit Diagnoses Not on filedocumented in this encounter
--- OUTSIDE RECORDS SUMMARY | 2022-02-03 16:05 | XMS_ITS | Encounter Summary ---
:1980 Author Organization [facility] Address [address] [place] [address] Care Team Providers Name Role Phone Unknown, Provider Primary Care Provider Encounter Details Date Type Department Care Team Description 07/01/2016 Historical Results [facility] - Alo Conway MD Only [facility] - Main [facility] [address] [facility] [address] [place], [place] [phone] Social History Tobacco Use Types Packs/Day Years Used Date Never Assessed Alcohol Habits Answer Date Recorded How often [...] Associated Comments Diagnosis COMPLETE BLOOD COUNT Routine 07/01/2016 6:00 Resu lts for this WITH DIFFERENTIAL EST procedure are in (AUTO) the results section. BASIC METABOLIC PANEL Routine 07/01/2016 6:00 Res ults for this (BMP) EST procedure are i n the results section. documented in this encounter Results (ABNORMAL) BASIC METABOLIC PANEL (BMP) (07/01/2016 6:00 EST) BUN - [facility] 23 (H) 7 - 18 mg/dL [facility] CALCIUM - [facility] 8.5 8.5 - 10.1 [facility] mg/dL [facility] Chloride 100 98 - 107 mEq/L [facility] CO2 Total 31 21 - 32 mEq/L [facility] CREATININE 0.80 0.5 - 1.3 [facility] mg/dL [facility] eGFR >60 [facility] Comment: [facility] Chronic renal impairment is defined as GFR <60 Multiply result by 1.210 for patients . eGFR calculated using the IDIA-traceable MDRD Study Equation. ??(effective 03/02/2014) Anion Gap 5 5 - 15 [facility] GLUCOSE - [facility] 79 70 - 100 mg/dL [facility] Potassium 4.8 3.5 - 5.0 [facility] mEq/L [facility] Sodium 136 135 - 145 [facility] mEq/L [facility] Specimen Performing Organization Address City/State/ZIP Code Phon e Number [facility] [address] LAB (ABNORMAL) COMPLETE BLOOD COUNT WITH DIFFERENTIAL (AUTO) (07/01/2016 6:00 EST) Pathologist Sig nature ABSOLUTE NEUTROPHIL 2.60 1.7 - 7.0 [facility] COUN - [facility] 10e3/ul [place] [facility] BASO # - [facility] 0.03 0.0 - 0.3 [facility] 10e3/[facility] LAB BASO % - [facility] 1 0 - 2 % [facility] EOS # - CV 0.26 0.05 - 0.5 [facility] 10e3/uL [place] [facility] EOS % - [facility] 5 0 - 5 % [facility] GRAN % - [facility] 52 40 - 80 % [facility] HEMATOCRIT - [facility] 29.2 (L) 34.0 - 47.0 % [facility] HEMOGLOBIN - [facility] 9.0 (L) 11.2 - 15.7 [facility] g/dl [place] [facility] IG# - [facility] 0.14 (H) 0 - 0.07 [facility] 10e3/uL [place] [facility] IG% - [facility] 2.8 (H) 0 - 0.9 % [facility] LYMPH # - [facility] 1.37 0.9 - 2.9 [facility] 10e3/uL [place] [facility] LYMPH% - [facility] 27 20 - 40 % [facility] MEAN CORPUSCULAR HGB 25.9 (L) 26 - [address] [facility] MEAN CORPUSCULAR HGB 30.8 (L) 31 - 36 g/dL [facility] CONC - [facility] CENTER LAB MEAN CELL VOLUME - 83.9 77 - 100 fl [facility] CENTER LAB MONO # - [facility] 0.62 0.3 - 0.9 [facility] 10e3/uL [place] [facility] MONO% - [facility] 12 0 - 12 % [facility] PLATELET COUNT 396 150 - 400 [facility] 10e3/ul [place] [facility] RED BLOOD COUNT - 3.48 (L) 3.8 - 5.2 [facility] 10e6/ul [place] [facility] RED CELL DISTRI WIDTH 17.5 (H) 11.8 - 15.6 % [facility] D - [facility] LAB WHITE BLOOD COUNT - 5.0 3.5 - 10.5 [facility] 10e3/ul [place] [facility] Specimen Performing Organization Address City/State/ZIP Code Phon e Number [facility] [address] LAB documented in this encounter Visit Diagnoses Not on filedocumented in this encounter Care Teams Teletype Mechanic Relationship Specialty Start Date End Date Unknown, Provider, PCP - General 02/26/14 06/26/17 documented as of this encounter
--- OUTSIDE RECORDS SUMMARY | 2022-02-03 16:05 | XMS_ITS | Encounter Summary ---
:1980 Author Organization [facility] Address [address] [place] [address] Care Team Providers Name Role Phone Unknown, Provider Primary Care Provider Encounter Details Date Type Department Care Team Description 06/30/2016 Historical Results [facility] - Alo Conway MD Only [facility] - Main [facility] [address] [facility] [address] [place] [phone] Social History Tobacco Use Types Packs/Day Years [...] Procedure Name Priority Date/Time Associated Comments Diagnosis LEUKODEPLETED PACKED Routine 06/30/2016 15:15 Res ults for this CELLS - [facility] EST procedure are i n the results section. documented in this encounter Results LEUKODEPLETED PACKED CELLS - [facility] (06/30/2016 15:15 EST) Specimen Narrative [facility] - 017 14:40 EST [id number] ??AP ?PCLD ? TRANSFUSED ? 0 06/30/16 2135 ?? [id number] ??AP ?PCLD ? TRANSFUSED ? 0 06/30/16 1738 ?? Performing Organization Address City/State/ZIP Code Phon e Number [facility] [address] LAB documented in this encounter Visit Diagnoses Not on filedocumented in this encounter Care Teams Tool Profiling Machine Set Up Operator Relationship Specialty Start Date End Date Unknown, Provider, PCP - General 02/26/14 06/26/17 documented as of this encounter
--- OUTSIDE RECORDS SUMMARY | 2022-02-03 16:05 | XMS_ITS | Encounter Summary ---
:1980 Author Organization [facility] Address [address] [place] [address] Care Team Providers Name Role Phone Unknown, Provider Primary Care Provider Encounter Details Date Type Department Care Team Description 06/28/[address] [facility] - Alo Conway MD Only [facility] Lab - Main [facility] [address] [facility] [address] [place] [id number] Social History Tobacco Use Types Packs/Day [...] Associated Comments Diagnosis COMPLETE BLOOD COUNT Routine 06/28/2016 6:00 Resu lts for this AND DIFFERENTIAL EST procedure a re in the results section. C REACTIVE PROTEIN Routine 06/28/2016 6:00 Result s for this EST procedure are i n the results section. BASIC METABOLIC PANEL Routine 06/28/2016 6:00 Res ults for this (BMP) EST procedure are i n the results section. documented in this encounter Results (ABNORMAL) C REACTIVE PROTEIN (06/28/2016 6:00 EST) Pathologist Sig nature C-Reactive Protein 166 (H) 0.0 - 3.0 mg/L [facility] Specimen Performing Organization Address City/State/ZIP Code Phon e Number [facility] [address] [place], [place] [id number] [place] [address] LAB (ABNORMAL) BASIC METABOLIC PANEL (BMP) (06/28/2016 6:00 EST) Pathologist [facility] BUN - [facility] 13 7 - 18 mg/dL [facility] CALCIUM - [facility] 8.0 (L) 8.5 - 10.1 [facility] mg/dL [facility] Chloride 101 98 - 107 mEq/L [facility] CO2 Total 28 21 - 32 mEq/L [facility] CREATININE 0.91 0.5 - 1.3 [facility] mg/dL [facility] eGFR >60 [facility] Comment: [facility] LAB Chronic renal impairment is defined as GFR <60 Multiply result by 1.210 for patients . eGFR calculated using the IDMS-traceable MDRD Study Equation. ??(effective 03/02/2014) Anion Gap 10 5 - 15 [facility] GLUCOSE - [facility] 107 (H) 70 - 100 mg/dL [facility] Potassium 4.2 3.5 - 5.0 [facility] mEq/L [facility] Sodium 138 135 - 145 [facility] mEq/L [facility] Specimen Performing Organization Address City/State/ZIP Code Phon e Number [facility] [address] LAB (ABNORMAL) COMPLETE BLOOD COUNT AND DIFFERENTIAL (06/28/2016 6:00 EST) [facility] ABSOLUTE NEUTROPHIL 11.23 (H) 1.8 - 7.8 [facility] COUN - [facility] 10e3/ul [facility] HEMATOCRIT - [facility] 23.0 (L) 34.0 - 47.0 % [facility] HEMOGLOBIN - [facility] 6.9 (LL) 11.2 - 15.7 [facility] Comment: g/dl [facility] Result called to SUGAR LECHUGA/Patricia 06/28/16 0729 Result called by NEO HYPOCHROMASIA - [facility] 1+ [facility] LYMPH # - [facility] 1.78 0.9 - 2.9 [facility] 10e3/uL [facility] LYMPHOCYTES - [facility] 13 (L) 20 - 40 % [facility] MEAN CORPUSCULAR HGB - 24.0 (L) 26 - 34 pg [facility] LAB MEAN CORPUSCULAR HGB 30.0 (L) 31 - 36 g/dL [facility] CONC - [facility] LAB MEAN CELL VOLUME - 79.9 77 - 100 fl [facility] METAMYELOCYTE - [facility] 1 0 - 1 % [facility] MICROCYTES - [facility] 1+ [facility] MONO # - [facility] 0.54 0.3 - 0.9 [facility] 10e3/uL [facility] MONOCYTE - [facility] 4 0 - 12 % [facility] PLATELET COUNT 355 150 - 400 [facility] 10e3/ul [facility] NEUTROPHILS - [facility] 82 (H) 40 - 80 % [facility] RED BLOOD COUNT - [facility] 2.88 (L) 3.8 - 5.2 [facility] 10e6/ul [facility] RED CELL DISTRI WIDTH 19.1 (H) 11.8 - 15.6 % [facility] WHITE BLOOD COUNT - 13.7 (H) 3.5 - 10.5 [facility] 10e3/[facility] LAB Specimen Performing Organization Address City/State/[facility] Code Phon e Number [facility] [address] [place], [place] [id number] [place] [address] LAB documented in this encounter Visit Diagnoses Not on filedocumented in this encounter Care Teams Configuration Management Manager Relationship Specialty Start Date End Date Unknown, Provider, PCP - General 02/26/14 06/26/17 documented as of this encounter
--- OUTSIDE RECORDS SUMMARY | 2022-02-03 16:05 | XMS_ITS | Encounter Summary ---
:1980 Author Organization [facility] Address [address] [place] [address] Care Team Providers Name Role Phone Unknown, Provider Primary Care Provider Encounter Details Date Type Department Care Team Description 06/27/2016 Historical Results [facility] - Alo Conway MD Only [facility] Lab - Main [facility] [address] [facility] [address] [place] [phone] Social History Tobacco Use Types Packs/Day Years [...] Procedure Name Priority Date/Time Associated Comments Diagnosis ANAEROBIC CULTURE - Routine 06/27/2016 14:16 Resu lts for this [facility] EST procedure are i n the results section. COMPLETE BLOOD COUNT Routine 06/27/2016 6:30 Resu lts for this AND DIFFERENTIAL EST procedure a re in the results section. BASIC METABOLIC PANEL Routine 06/27/2016 6:30 Res ults for this (BMP) EST procedure are i n the results section. documented in this encounter Results ANAEROBIC CULTURE - [facility] (06/27/2016 14:16 EST) Anaerobe Culture [facility] Anaerobe Culture NO ANAEROBES ISOLATED [facility] IN 48 HOURS [facility] Anaerobe Culture TWO SWABS RECEIVED FOR CULTURE AND GRAM STAIN [facility] RESULTS CALLED TO GIDEON ALEX, OPERATING ROOM 06/27/16 1449 GRAM POSITIVE COCCI - [facility] WBC MODERATE [facility] GRAM STAIN - [facility] GROUP A STREP RESULTS CALLED TO YUE FISHER, 2 [facility] 06/28/16 1140 The mecA gene product was NOT detected in this coagula se positive Staph isolate. It is SUSCEPTIBLE to oxacillin , cephalosporins and other beta lactam antibiotics. STAPHYLOCOCCUS SP STAPHYLOCOCCUS SP [facility] COAG POSITIVE - [facility] COAG POS [facility] QUANT - [facility] Gliadin IgA Ab GRPA [facility] QUANT - [facility] Comment: [facility] CENTER LAB ?* This is a corrected result. * ? A prior result that was reported as final has been imer nged. Specimen Narrative [facility] - 017 11:21 EST COMMENTS: IN OR EXT [id number] COMMENT: DEEP ABSCESS RIGHT FOOT Does PT Have a Latex Allergy? NO Organism Antibiotic Method Susceptibility Staphylococcus sp coag Azithromycin GRAM POSITIVE Susceptib le pos SUSCEPTIBILITY - [facility] Staphylococcus sp coag Clindamycin GRAM POSITIVE <=0.25: S usceptible pos SUSCEPTIBILITY - [facility] Staphylococcus sp coag Cefpodoxime GRAM POSITIVE Susceptib le pos SUSCEPTIBILITY - [facility] Staphylococcus sp coag Cefazolin GRAM POSITIVE Susceptib le pos SUSCEPTIBILITY - [facility] Staphylococcus sp coag Erythromycin GRAM POSITIVE <=0.25: S usceptible pos SUSCEPTIBILITY - [facility] Staphylococcus sp coag Levofloxacin GRAM POSITIVE 0.25: Concepcion ceptible pos SUSCEPTIBILITY - [facility] Staphylococcus sp coag Oxacillin GRAM POSITIVE 0.5: Susc eptible pos SUSCEPTIBILITY - [facility] Staphylococcus sp coag Penicillin GRAM POSITIVE >=0.5: Re sistant pos SUSCEPTIBILITY - [facility] Staphylococcus sp coag Trimethoprim-Sulfame GRAM POSITIVE <=10 : Susceptible pos thoxazole SUSCEPTIBILITY - [facility] Staphylococcus sp coag Tetracycline GRAM POSITIVE <=1: Susc eptible pos SUSCEPTIBILITY - [facility] Staphylococcus sp coag Vancomycin GRAM POSITIVE 1: Suscep tible pos SUSCEPTIBILITY - [facility] Comment: See Reason(s) for Study Performing Organization Address [facility] Phon e Number [facility] [address] LAB (ABNORMAL) BASIC METABOLIC PANEL (BMP) (06/27/2016 6:30 EST) Pathologist [facility] BUN - [facility] 13 7 - 18 mg/dL [facility] CALCIUM - [facility] 8.1 (L) 8.5 - 10.1 [facility] mg/dL [facility] Chloride 102 98 - 107 mEq/L [facility] CO2 Total 28 21 - 32 mEq/L [facility] CREATININE 0.80 0.5 - 1.3 [facility] mg/dL [facility] eGFR >60 [facility] Comment: [facility] LAB Chronic renal impairment is defined as GFR <60 Multiply result by 1.210 for patients . eGFR calculated using the IDMS-traceable MDRD Study Equation. ??(effective 03/02/2014) Anion Gap 8 5 - 15 [facility] GLUCOSE - [facility] 71 70 - 100 mg/dL [facility] Potassium 3.9 3.5 - 5.0 [facility] mEq/L [facility] Sodium 138 135 - 145 [facility] mEq/L [facility] Specimen Performing Organization Address City/[facility] Phon e Number [facility] [address] LAB (ABNORMAL) COMPLETE BLOOD COUNT AND DIFFERENTIAL (06/27/2016 6:30 EST) [facility] ABSOLUTE NEUTROPHIL 15.04 (H) 1.8 - 7.8 [facility] COUN - [facility] 10e3/ul MED CENTER LAB ANISOCYTOSIS - [facility] 1+ [facility] EOS # - [facility] 0.33 0.05 - 0.5 [facility] 10e3/uL [facility] [place] [facility] EOSINOPHILS - [facility] 2 0 - 5 % [facility] HEMATOCRIT - [facility] 23.2 (L) 34.0 - 47.0 % [facility] HEMOGLOBIN - [facility] 7.1 (L) 11.2 - 15.7 [facility] g/dl [facility] HYPOCHROMASIA - [facility] 2+ [facility] LYMPH # - [facility] 0.84 (L) 0.9 - 2.9 [facility] 10e3/uL [facility] LYMPHOCYTES - [facility] 5 (L) 20 - 40 % [facility] MEAN CORPUSCULAR HGB - 24.3 (L) 26 - 34 pg [facility] MEAN CORPUSCULAR HGB 30.6 (L) 31 - 36 g/dL [facility] CONC - [facility] MEAN CELL VOLUME - [facility] 79.5 77 - 100 fl [facility] MICROCYTES - [facility] 1+ [facility] MONO # - [facility] 0.67 0.3 - 0.9 [facility] 10e3/uL [facility] MONOCYTE - [facility] 4 0 - 12 % [facility] PLATELET COUNT 335 150 - 400 [facility] 10e3ul [facility] NEUTROPHILS - [facility] 89 (H) 40 - 80 % [facility] RED BLOOD COUNT - [facility] 2.92 (L) 3.8 - 5.2 [facility] 10e6/ul [facility] RED CELL DISTRI WIDTH - 19.3 (H) 11.8 - 15.6 % [facility] WHITE BLOOD COUNT - 16.9 (H) 3.5 - 10.5 [facility] 10e3/ul [facility] Specimen Performing Organization Address City/State/ZIP Code Phon e Number [facility] [address] [place], [place] [id number] [place] [address] LAB documented in this encounter Visit Diagnoses Not on filedocumented in this encounter Care Teams Design Engineer Relationship Specialty Start Date End Date Unknown, Provider, PCP - General 02/26/14 06/26/17 documented as of this encounter
--- OUTSIDE RECORDS SUMMARY | 2022-02-03 16:05 | XMS_ITS | Encounter Summary ---
:1980 Author Organization [facility] Address [address] [place] [address] Care Team Providers Name Role Phone Unavailable Primary Care Provider Unavailable Encounter Details Date Type Department Care Team Description 06/27/2017 Historical Results [facility] - Emmy Aggarwal [facility] Radiology Resul shira Ellington MD [address] [facility] [address] [place], [place] [id number] [place] [address] [phone] Social History Tobacco Use Types Packs/Day Years [...] Procedure Name Priority Date/Time Associated Comments Diagnosis DRUG SCREEN, Routine 06/27/2017 19:45 Results for this PRESCRIPTION/OTC, EST procedure are in URINE the results section. TRANSTHORACIC ECHO 06/27/2017 15:15 Resul ts for this (TTE) COMPLETE EST procedure are in the results section. CT ANGIO RUNOFF 06/27/2017 12:09 Results for this EST procedure are i n the results section. COMPLETE BLOOD COUNT Routine 06/27/2017 5:30 Resu lts for this WITH DIFFERENTIAL EST procedure are in (AUTO) the results section. CREATININE Routine 06/27/2017 5:30 Results for this EST procedure are i n the results section. XR CHEST 1 VIEW 06/27/2017 3:12 Results f or this EST procedure are i n the results section. documented in this encounter Results (ABNORMAL) DRUG SCREEN, PRESCRIPTION/OTC, URINE (06/27/2017 19:45 EST) AMPHETAMINES NEG NEG [facility] BARBITURATES,UR - NEG NEG [facility] BENZODIAZEPINES NEG NEG [facility] COCAINE,URINE - [facility] POS (A) NEG [facility] MAMP NEG NEG [place] (METHAMPHETAMINES - [facility] CENTER LAB MARIJUANA,URINE - NEG NEG [facility] MTD (METHADONE) - NEG NEG [facility] OPIATES,URINE - [facility] NEG NEG [facility] OXY (OXYCODONE) - NEG NEG [facility] PCP (PHENCYCLIDINE) NEG NEG [place] - [facility] PROPOXYPHENE (PPX) - NEG NEG [facility] TRICYCLIC NEG NEG [place] ANTIDEPRESSANTS - Comment: [facility] Drug Class ?Cutoff Concent ration CENTER LAB Amphetamines (AMP) ?500 ng /ml Barbiturates (BAR) ?200 ng /ml Benzodiazepines (BZO) ? 150 ng/m l Cocaine (CARLENE) ? 150 ng/ml Methamphetamine (mAMP) ?500 ng/m l Methadone (MTD) ? 200 n g/ml Opiates (OPI) ? 100 ng/ml Oxycodone (OXY) ? 100 n g/ml Phencyclidine (PCP) ?25 ng /ml Tetrahydrocannabinol (THC) ? 50 ng/ml Propoxyphene (PPX) ?300 ng /ml Tricyclic antidepressants (TCA) ? 300 ng/ml This is a screening assay only, intended for use in cl inical monitoring or management of patients. False positive o r false negative results can occur. If confirmation test ing is needed, please call the lab. Specimens are retained in the laboratory for 7 days. Specimen Performing Organization Address City/State/[facility] Code Phon e Number [facility] [address] [place], [place] [id number] [place] [address] LAB TRANSTHORACIC ECHO (TTE) COMPLETE (06/27/2017 15:15 EST) Specimen Narrative [facility] CARDI[facility] - 06/27/2017 15:15 EST ?[facility] ?[facility] [address] [place] [address] ? [id number] ? E C H O C A R D I O G R A M ? R E P O R T NAME: LINDSAY JEAN BAPTISTE ?: 84 ? LOCATION: 2N ? TELEPHONE: [phone] ?MR#: [id number] ? *[facility] Lalo blackmon* *[facility]* [address] [place] [address] Date of study: 06/27/2017 Transthoracic Echocardiography M-mode, complete 2D, complete spectral D oppler, and color Doppler *STUDY CONCLUSIONS* Impressions: ??No vegetations identified on this transthoracic study. Summary: 1. Left ventricle: Wall thickness was at the upper limits of normal. ?? Systolic function was hyperdynamic. The estimated ejection fraction ?? was 65-70%. 2. Mitral valve: There was mild regurgit ation. 3. Left atrium: The atrium was mildly di lated. 4. Right ventricle: The cavity size was normal. Wall thickness was ?? normal. Systolic function was normal . 5. Atrial septum: No defect or patent fo ramen ovale was identified. 6. Pulmonary arteries: Pulmonary systoli c pressure was in the range of ?? 15mm Hg to 25mm Hg. 7. Inferior vena cava: The vessel was no rmal in size. The respirophasic ?? diameter changes were in the normal range (greater than or equal to ?? 50%), consistent with normal central venous pressure. *PATIENT PRESENTATION* Height: ? 165.1cm ((65in) ) S/D Pressure: 106 / 68 Weight: ? 61.2kg ((134.7lb) ) BSA: ?1.68m S 2 Test start time: ??03:15 PM. Test stop time: ??03:55 PM. PERFORMING ?? [facility] ORDERING ? Jas Garcia REFERRING ?Jas Garcia NUCLEAR MEDICINE MEDICAL DIRECTOR ??Essie Zhao *PROCEDURE DATA* Procedure information: ??The patient was identified by two identifiers. ?[facility] ?[address] [address] ? [id number] ? E C H O C A R D I O G R A M ? R E P O R T NAME: LINDSAY JEAN BAPTISTE ?: 84 ? LOCATION: 2N ? TELEPHONE: [phone] ?MR#: [id number] ? This study was interpreted by The Anusha marshall [facility]. Pertinent images and digital data are archived for permanent storage and are available for subsequent review. Comparison was made to the study of 07/04/2016. ??Study status: Routine. Transthoracic echocardiography. ??M-mode, complete 2D, complete spectral Doppler, and color Doppler. A T ransthoracic Echocardiogram was performed. Scanning was performed from t he parasternal, apical, subcostal, and suprasternal notch acoust ic windows. Images were obtained using a [facility] IE33 1 cardiac ultrasound m kath. Image quality was good. Study completion: ??The patient tolerate d the procedure well. *INDICATIONS AND HISTORY* Indications: ?? R/o Vegetation. *CARDIAC ANATOMY* Left ventricle: ?? Wall thickness was at the upper limits of normal. Systolic function was hyperdynamic. The estimated ejection fraction was 65-70%. The tissue Doppler parameters we re normal. Diastolic parameters were normal for age. There was no eviden ce of elevated ventricular filling pressure by Doppler parameters. Aortic valve: ?? Trileaflet. ??No eviden ce of vegetation. ??Doppler: There was no stenosis. ?? There was no r egurgitation. Aorta: ??Aortic root: The aortic root wa s normal in size. Ascending aorta: The ascending aorta was normal in size. Mitral valve: ?? No evidence of vegetati on. ??Doppler: ?? There was no evidence for stenosis. ?? There was mild regurgitation. ?Peak gradient (D): 2.3mm Hg. Left atrium: ??The atrium was mildly dil ated. Atrial septum: ??No defect or patent for amen ovale was identified. Right ventricle: ??The cavity size was n ormal. Wall thickness was normal. Systolic function was normal. Pulmonic valve: ?No evidence of vege tation. ??Doppler: ?? There was no evidence for stenosis. ?? There was no s ignificant regurgitation. Tricuspid valve: ?? No evidence of veget ation. ??Doppler: ??There was trivial regurgitation. Pulmonary artery: ?? Poorly visualized. Pulmonary systolic pressure was in the range of 15mm Hg to 25mm Hg. Right atrium: ??The atrium was normal in size. Pericardium: ??There was no pericardial effusion. Systemic veins: Inferior vena cava: The vessel was purvi l in size. The respirophasic diameter changes were in the normal rang e (greater than or equal to 50%), consistent with normal central rishabh ous pressure. Measurements ?[facility] ?[facility] [address] [place], [place] [address] ? [id number] ? E C H O C A R D I O G R A M ? R E P O R T NAME: LINDSAY JEAN BAPTISTE ?: 84 ? LOCATION: 2N ? TELEPHONE: [phone] ?MR#: [id number] ? Left ventricle ? Value ?Reference LV ID, ED, PLAX ?4.5 ?? cm ? 3.5 - 6.0 LV ID, ES, PLAX ?2.5 ?? cm ? 2.1 - 4.0 LV PW thickness, ED, PLAX ?0.9 ?? cm ? LV end-diastolic volume, 1-p A2C ? 81 ?ml ? LV ejection fraction, 1-p A2C ?78 ?% ? LV end-diastolic volume, 1-p A4C ? 68 ?ml ? LV ejection fraction, 1-p A4C ?76 ?% ? LV e', lateral ? 0.133 m/sec ?? LV E/e', lateral ? 6 ? LV e', medial ?0.084 m/sec ?? LV E/e', medial ?9 ? LV e', average ? 0.109 m/sec ?? LV E/e', average ? 7 ? Ventricular septum ? Value ?Reference IVS thickness, ED, PLAX ?0.9 ?? cm ? LVOT ? Value ?Reference LVOT ID, S ? 2.0 ?? cm ? LVOT area ?3.1 ?? cm S 2 ?? Aorta ?Value ?Reference Aortic root ID ? 2.6 ?? cm ? Ascending aorta ID, A-P ?3.3 ?? cm ? Ascending aorta ID, A-P, S ? 3.3 ?? cm ? Left atrium ?Value ?Reference LA ID, A-P, ES ? 3.8 ?? cm ? LA ID/bsa, A-P ? (H) ? 2.3 ?? cm/m S 2 <=2.2 LA area, ES, A4C ? 19.7 ??cm S 2 ?? 8.8 - 23.4 LA area, ES, A2C ? 20 ?cm S 2 ?? LA volume, ES, 2-p ? 60 ?ml ? LA volume/bsa, ES, 2-p ? 36 ?ml/m S 2 LA/aortic root ratio ? 1.46 ? Mitral valve ? Value ?Reference Mitral E-wave peak velocity ?0.76 ??m/sec ?? Mitral A-wave peak velocity ?0.68 ??m/sec ?? Mitral deceleration time ? (H ) ? 246 ?? ms ? 150 - 230 Mitral peak gradient, D ?2.3 ?? mm Hg ?? Mitral E/A ratio, peak ? 1.1 ? Right atrium ? Value ?Reference RA area, ES, A4C ? 14.6 ??cm S 2 ?? 8.3 - 19.5 Legend: (L) ??and ??(H) ??donal values outside sp ecified reference range. I have personally reviewed the images an d have reviewed and edited the reported findings. Electronically signed by ?[facility] ?[address] [place], [place] [address] ? [id number] ? E C H O C A R D I O G R A M ? R E P O R T NAME: LINDSAY JEAN BAPTISTE ?: 84 ? LOCATION: 2N ? TELEPHONE: [phone] ?MR#: [id number] ? Sourav Mario MD 06/27/2017 17:04 Procedure Note Sourav Mario - 02/16/2019 [facility] [address] [place], [place] [id number] E C H O C A R D I O G R A M R E P O R T NAME: LINDSAY JEAN BAPTISTE : 84 LOCATION: 2N TELEPHONE: [phone] MR#: [id number] ACC T#: [id number] *[facility]* *[facility]* [address] [place] [address] Date of study: 06/27/2017 Transthoracic Echocardiography M-mode, complete 2D, complete spectral D oppler, and color Doppler *STUDY CONCLUSIONS* Impressions: No vegetations identified o n this transthoracic study. Summary: 1. Left ventricle: Wall thickness was at the upper limits of normal. Systolic function was hyperdynamic. The estimated ejection fraction was 65-70%. 2. Mitral valve: There was mild regurgit ation. 3. Left atrium: The atrium was mildly di lated. 4. Right ventricle: The cavity size was normal. Wall thickness was normal. Systolic function was normal. 5. Atrial septum: No defect or patent fo ramen ovale was identified. 6. Pulmonary arteries: Pulmonary systoli c pressure was in the range of 15mm Hg to 25mm Hg. 7. Inferior vena cava: The vessel was no rmal in size. The respirophasic diameter changes were in the normal ran ge (greater than or equal to 50%), consistent with normal central ve nous pressure. *PATIENT PRESENTATION* Height: 165.1cm ((65in) ) S/D Pressure: 106 / 68 Weight: 61.2kg ((134.7lb) ) BSA: 1.68m S 2 Test start time: 03:15 PM. Test stop time: 03:55 PM. PERFORMING [facility] ORDERING Jas Garcia REFERRING Jas Garcia NUCLEAR MEDICINE MEDICAL DIRECTOR Essie Zhao *PROCEDURE DATA* Procedure information: The patient was i dentified by two identifiers. [facility] [address] [place], [place] [address] [id number] E C H O C A R D I O G R A M R E P O R T NAME: LINDSAY JEAN BAPTISTE : 84 LOCATION: 2N TELEPHONE: [phone] MR#: [id number] [facility] T#: [id number] This study was interpreted by [facility]. Pertinent images and digital data are archived for permanent storage and are available for subsequent review. Comparison was made to the study of 07/04/2016. Study status: Routine. Transthoracic echocardiography. M-mode, complete 2D, complete spectral Doppler, and color Doppler. A T ransthoracic Echocardiogram was performed. Scanning was performed from t he parasternal, apical, subcostal, and suprasternal notch acoust ic windows. Images were obtained using a [facility] IE33 1 cardiac [facility]. Image quality was good. Study completion: The patient tolerated the procedure well. *INDICATIONS AND HISTORY* Indications: R/o Vegetation. *CARDIAC ANATOMY* Left ventricle: Wall thickness was at th e upper limits of normal. Systolic function was hyperdynamic. The estimated ejection fraction was 65-70%. The tissue Doppler parameters we re normal. Diastolic parameters were normal for age. There was no eviden ce of elevated ventricular filling pressure by Doppler parameters. Aortic valve: Trileaflet. No evidence of vegetation. Doppler: There was no stenosis. There was no regu rgitation. Aorta: Aortic root: The aortic root was normal in size. Ascending aorta: The ascending aorta was normal in size. Mitral valve: No evidence of vegetation. Doppler: There was no evidence for stenosis. There was mild re gurgitation. Peak gradient (D): 2.3mm Hg. Left atrium: The atrium was mildly dilat ed. Atrial septum: No defect or patent kait en ovale was identified. Right ventricle: The cavity size was nor mal. Wall thickness was normal. Systolic function was normal. Pulmonic valve: No evidence of vegetatio n. Doppler: There was no evidence for stenosis. There was no sign ificant regurgitation. Tricuspid valve: No evidence of vegetati on. Doppler: There was trivial regurgitation. Pulmonary artery: Poorly visualized. Pul monary systolic pressure was in the range of 15mm Hg to 25mm Hg. Right atrium: The atrium was normal in s ize. Pericardium: There was no pericardial ef fusion. Systemic veins: Inferior vena cava: The vessel was purvi l in size. The respirophasic diameter changes were in the normal rang e (greater than or equal to 50%), consistent with normal central rishabh ous pressure. Measurements [facility] [address] [place] [address] [id number] E C H O C A R D I O G R A M R E P O R T NAME: LINDSAY JEAN BAPTISTE : 84 LOCATION: 2N TELEPHONE: [phone] MR#: [id number] [facility] T#: [id number] Left ventricle Value Reference LV ID, ED, PLAX 4.5 cm 3.5 - 6.0 LV ID, ES, PLAX 2.5 cm 2.1 - 4.0 LV PW thickness, ED, PLAX 0.9 cm ------ ---- LV end-diastolic volume, 1-p A2C 81 ml LV ejection fraction, 1-p A2C 78 % ---- ------ LV end-diastolic volume, 1-p A4C 68 ml LV ejection fraction, 1-p A4C 76 % ---- ------ LV e', lateral 0.133 m/sec LV E/e', lateral 6 LV e', medial 0.084 m/sec LV E/e', medial 9 LV e', average 0.109 m/sec LV E/e', average 7 Ventricular septum Value Reference IVS thickness, ED, PLAX 0.9 cm -------- -- LVOT Value Reference LVOT ID, S 2.0 cm LVOT area 3.1 cm S 2 Aorta Value Reference Aortic root ID 2.6 cm Ascending aorta ID, A-P 3.3 cm -------- -- Ascending aorta ID, A-P, S 3.3 cm ----- ----- Left atrium Value Reference LA ID, A-P, ES 3.8 cm LA ID/bsa, A-P (H) 2.3 cm/m S 2 <=2.2 LA area, ES, A4C 19.7 cm S 2 8.8 - 23.4 LA area, ES, A2C 20 cm S 2 LA volume, ES, 2-p 60 ml LA volume/bsa, ES, 2-p 36 ml/m S 2 ---- ------ LA/aortic root ratio 1.46 Mitral valve Value Reference Mitral E-wave peak velocity 0.76 m/sec Mitral A-wave peak velocity 0.68 m/sec Mitral deceleration time (H) 246 ms 150 - 230 Mitral peak gradient, D 2.3 mm Hg ----- ----- Mitral E/A ratio, peak 1.1 Right atrium Value Reference RA area, ES, A4C 14.6 cm S 2 8.3 - 19.5 Legend: (L) and (H) donal values outside specifie d reference range. I have personally reviewed the images an d have reviewed and edited the reported findings. Electronically signed by [facility] [address] [place] [id number] E C H O C A R D I O G R A M R E P O R T NAME: LINDSAY JEAN BAPTISTE : 84 LOCATION: 2N TELEPHONE: [phone] MR#: [id number] [facility] T#: [id number] Sourav Mario MD 06/27/2017 17:04 Performing Organization Address City/State/ZIP Code Phon e Number [facility] CARDIOLOGY CT ANGIO RUNOFF W AND OR WO CONTRAST (06/27/2017 12:09 EST) Specimen Narrative [facility] - 06/27/2017 12:12 EST ? EXAM: CAT SCAN/CT ANGIOGRAM RUNOFF LWR EX EX. D/ (1123) ? CLINICAL INFORMATION: ? eval right common femoral and ext ernal ? CT ANGIOGRAM RUNOFF LWR EXT 2017 11:23 AM ? Signs and Symptoms/Comments: R LO WER EXT ABSCESS eval right common ? femoral and external , iliac vein for clot ? Technique: CT angiography runoff of the right lower extremity was ? performed with the administration of ??120 cc of 350mg% nonionic IV ? contrast at 4.5 cc per sec. Preco ntrast, arterial, and venous phases ? were acquired. Coronal and sagitt al multiplanar reformations, as well ? as 3-D reconstructions, were also performed. I have personally ? reviewed and adjusted the images for the 3D rendering on an ? independent workstation, as zulma tellez, prior to interpretation. ? Comparison: CT pelvis 06/25/2017 ? 3-D findings: ? 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 bifurcation of the common femoral artery. The remainder of the vessel ? is perfused. There is normal perf usion of the superficial femoral ? artery into the leg and 3 runoff vessels are identified. ? Findings: ? Arterial Structures: ? The distal aorta is normal. The i nferior mesenteric artery is patent ? at its origin. The right common i liac artery, and internal and ? external iliac arteries appear no rmal without evidence of aneurysm or ? stenosis. The right common femora l artery is normal. Just distal to ? the bifurcation of the common fem oral artery, a pseudoaneurysm is ? seen (axial #84 for example) this measures approximately 1.5 x 2.4 ? cm. The aneurysm neck measures ap proximately 2-3 mm (axial #81 for ? example) the runoff vessels arisi ng from the profunda femoral artery ? in the upper thigh appear widely patent despite the presence of a ? pseudoaneurysm. No definite throm bosis of the pseudoaneurysm is seen. ? The superficial femoral artery is patent past the knee. There is ? normal trifurcation of the joint creaser ior tibial and anterior tibial and ? peroneal vessels. Normal three-ve ssel runoff is seen into the foot. ? There is no aneurysm or stenosis identified. ? Venous Structures: ? Again noted is thrombosis of the right common femoral vein for ? example axial #70. This extends p ast the level of the pseudoaneurysm ? to involve the proximal right sup erficial femoral and deep femoral ? veins (axial #103). The more dist al veins are patent. ? Solid organs/bowel: The right kid tin is normal. The included portions ? of the liver reveal no abnormalit ies. The gallbladder is ? unremarkable. The included portio ns of the pancreas appear normal. ? Included portions of the bowel ap pear normal. The included portions ? of the uterus and bladder appear normal. ? PAGE 1 ? Haylee d Report ? (CONTINUED) ? Lymph nodes: There are enlarged r ight inguinal lymph nodes. These ? nodes appear morphologically norm al. There are likely reactive, ? related to the infection which is evident on the comparison study.. ? Bones: The osseous structures are unremarkable. ? Lower Extremity Soft Tissues: Aga in noted is myofascial edema most ? prominent along the sartorius mus nick and the adductors. There is mild ? soft tissue thickening and edema which may relate to delayed venous ? drainage in the setting of deep v enous thrombosis. Alternatively, ? this may indicate cellulitis. ? IMPRESSION: ? 1. 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 to the bifurcation of the proxima l femoral artery. Pseudoaneurysm ? measures approximately 1.5 x 2.4 cm. In light of evident infection in ? 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 case. ? 2. 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 the proximal superficial femoral and deep femoral veins, similar to ? comparison CT of 06/25/2017. ? 3. ??Normal 3 vessel runoff into the right foot. ? I relayed the results to Dr. Patrick Fortune utilizing Cortext at 06/27/2017 ? 12:06 PM. ? REPORT SIGNED IN OTHER VENDOR SYSTEM 06/27/2017 ?Reported B y: Maldonado Grijalva MD ? CC: Evelyn Inman ? Transcribed Date/Time: 06/27/2017 (1212) ? Site Monitor: ? Printed Date/Time: 10/17/2018 (12 21) ? PAGE 2 ? Haylee d Report ? Procedure Note Maldonado Grijalva MD - 03/05/2019 EXAM: CAT SCAN/CT ANGIOGRAM RUNOFF LWR EX EX. D/ (1123) CLINICAL INFORMATION: eval right common femoral and external CT ANGIOGRAM RUNOFF LWR EXT 06/27/2017 1 1:23 AM Signs and Symptoms/Comments: R LOWER EX T ABSCESS eval right common femoral and external , iliac vein for c lot Technique: CT angiography runoff of the right lower extremity was performed with the administration of 12 0 cc of 350mg% nonionic IV contrast at 4.5 cc per sec. Precontrast , arterial, and venous phases were acquired. Coronal and sagittal mul tiplanar reformations, as well as 3-D reconstructions, were also perfo rmed. I have personally reviewed and adjusted the images for th e 3D rendering on an independent workstation, as necessary, prior to interpretation. Comparison: CT pelvis 06/25/2017 3-D findings: Three-dimensional images show show what is presumably a mycotic pseudoaneurysm arising from the right p rofunda femoris just past the bifurcation of the common femoral arter y. The remainder of the vessel is perfused. There is normal perfusion of the superficial femoral artery into the leg and 3 runoff vessel s are identified. Findings: Arterial Structures: The distal aorta is normal. The inferio r mesenteric artery is patent at its origin. The right common iliac a rtery, and internal and external iliac arteries appear normal w ithout evidence of aneurysm or stenosis. The right common femoral maday ry is normal. Just distal to the bifurcation of the common femoral a rtery, a pseudoaneurysm is seen (axial #84 for example) this measu res approximately 1.5 x 2.4 cm. The aneurysm neck measures approxim ately 2-3 mm (axial #81 for example) the runoff vessels arising fro m the profunda femoral artery in the upper thigh appear widely patent despite the presence of a pseudoaneurysm. No definite thrombosis of the pseudoaneurysm is seen. The superficial femoral artery is paten t past the knee. There is normal trifurcation of the posterior ti bial and anterior tibial and peroneal vessels. Normal three-vessel r unoff is seen into the foot. There is no aneurysm or stenosis identi fied. Venous Structures: Again noted is thrombosis of the right common femoral vein for example axial #70. This extends past th e level of the pseudoaneurysm to involve the proximal right superfici al femoral and deep femoral veins (axial #103). The more distal vei ns are patent. Solid organs/bowel: The right kidney is normal. The included portions of the liver reveal no abnormalities. T he gallbladder is unremarkable. The included portions of the pancreas appear normal. Included portions of the bowel appear n ormal. The included portions of the uterus and bladder appear normal . PAGE 1 Signed Report (CONTINUED) Lymph nodes: There are enlarged right i nguinal lymph nodes. These nodes appear morphologically normal. Th ere are likely reactive, related to the infection which is evide nt on the comparison study.. Bones: The osseous structures are unrem arkable. Lower Extremity Soft Tissues: Again not ed is myofascial edema most prominent along the sartorius muscle an d the adductors. There is mild soft tissue thickening and edema which may relate to delayed venous drainage in the setting of deep venous thrombosis. Alternatively, this may indicate cellulitis. IMPRESSION: 1. 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 Pseudoaneurysm measures approximately 1.5 x 2.4 cm. In light of evident infection in the soft tissues, would be concerned fo r mycotic aneurysm in this case. 2. 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 3. Normal 3 vessel runoff into the righ t foot. I relayed the results to Dr. Chapa utilizing Cortext at 06/27/2017 12:06 PM. REPORT SIGNED IN OTHER VENDOR SYSTEM 06/27/2017 Reported By: Maldonado Grijalva MD CC: Evelyn Inman Transcribed Date/Time: 06/27/2017 (2483 ) Site Monitor: Printed Date/Time: 10/17/2018 (4067) PAGE 2 Signed Report Performing Organization Address City/State/ZIP Code Phon e Number [facility] RADIOLOGY CREATININE (06/27/2017 5:30 EST) CREATININE 0.73 0.52 - 1.04 [facility] mg/dL [facility]ENTER [facility] eGFR >60 [facility] Comment: [facility] Chronic renal impairment is defined as GFR <60 Multiply result by 1.210 for patients . eGFR calculated using the IDMS-traceable MDRD Study Equation. ??(effective 03/02/2014) Specimen Narrative [facility] - 018 5:49 EST Does PT Have a Latex Allergy? NO Performing Organization Address City/State/ZIP Code Phon e Number [facility] [address] LAB (ABNORMAL) COMPLETE BLOOD COUNT WITH DIFFERENTIAL (AUTO) (06/27/2017 5:30 EST) ABSOLUTE NEUTROPHIL 5.12 1.7 - 7.0 [facility] COUN - [facility] 10e3/ul [facility] BASO # - [facility] 0.01 0.0 - 0.3 [facility] 10e3/uL [facility] BASO % - [facility] 0 0 - 2 % [facility] EOS # - [facility] 0.13 0.05 - 0.5 [facility] 10e3/uL [facility] EOS % - [facility] 2 0 - 5 % [facility] GRAN % - [facility] 75 40 - 80 % [facility] HEMATOCRIT - [facility] 26.5 (L) 34.0 - 47.0 % [facility] Comment: MED CENTER LAB Result called to CHELA MIDDLETON ON 2N 06/27/1724: Result called by [facility] HEMOGLOBIN - [facility] 8.5 (L) 11.2 - 15.7 [facility] Comment: g/dl [facility] CENTER LAB Result called to CHELA MIDDLETON ON 2N 06/27/17623: Result called by [facility] IG# - [facility] 0.10 (H) 0 - 0.07 [facility] 10e3/uL [facility] IG% - [facility] 1.5 (H) 0 - 0.9 % [facility] LYMPH # - [facility] 1.00 0.9 - 2.9 [facility] 10e3/uL [facility]ENTER LAB LYMPH% - [facility] 15 (L) 20 - 40 % [facility] MEAN CORPUSCULAR HGB 26.6 26 - 34 pg [facility] - [facility] CENTER LAB MEAN CORPUSCULAR HGB 32.1 31 - 36 g/dL [facility] CONC - [facility] MEAN CELL VOLUME - 83.1 77 - [address] [facility] MED [facility] LAB MONO # - [facility] 0.50 0.3 - 0.9 [facility] 10e3/uL [facility] MONO% - [facility] 7 0 - 12 % [facility] PLATELET COUNT 285 150 - 400 [facility] Comment: 10e3/ul MED CENTER LAB Result called to CHELA MIDDLETON ON 2N 06/27/17623: Result called by [facility] RED BLOOD COUNT - 3.19 (L) 3.8 - 5.2 [facility] 10e6/ul [facility] CENTER LAB RED CELL DISTRI 13.3 11.8 - 15.6 % [facility] WIDTH - [facility] WHITE BLOOD COUNT - 6.9 3.5 - 10.5 [facility] Comment: 10e3/ul [facility] CENTER LAB Result called to CHELA MIDDLETON ON 2N 06/27/17 0624: Result called by [facility] Specimen Performing Organization Address City/State/ZIP Code Phon e Number [facility] [address] LAB XR CHEST 1 VIEW (06/27/2017 3:12 EST) Specimen Narrative [facility] RADIOLOGY - 06/27/2017 3:13 EST ? EXAM: RADIOLOGY/CHEST-PORTABLE ?EX. D/ (0307) ? CLINICAL INFORMATION: ? CENTRAL LINE PLACEMENT ? EXAM: ? XR Chest, 1 View ? CLINICAL HISTORY: ? 36 years old, female; Device p lacement; Other vascular access ? device placement or adjustment; C entral line, non-tunnelled; ? Additional info: Central line hsarif cement ? TECHNIQUE: ? Frontal view of the chest. ? COMPARISON: ? CR - CHEST AP PORT X-HESS 2016 22:18 ? FINDINGS: ? Lungs: ??Unremarkable. ??No co nsolidation. ? Pleural space: ??Unremarkable. ??No pneumothorax. ? Heart: ??Unremarkable. ??No ca rdiomegaly. ? Mediastinum: Right central rishabh ous catheter tip overlies ? superior cavoatrial junction.. ? Bones/joints: ??Unremarkable. ? IMPRESSION: ? Normal chest x-ray. ? REPORT SIGNED IN OTHER VENDOR SYSTEM 06/27/2017 ?Reported B y: Sourav Ramirez MD ? CC: Evelyn Inman ? Transcribed Date/Time: 06/27/2017 (312) ? Site Monitor: ? Printed Date/Time: 10/17/2018 (12 ) ? PAGE 1 ? Haylee d Report ? Procedure Note Sourav Ramirez MD - 03/05/2019 EXAM: RADIOLOGY/CHEST-PORTABLE EX. D/ (0307) CLINICAL INFORMATION: CENTRAL LINE PLACEMENT EXAM: XR Chest, 1 View CLINICAL HISTORY: 36 years old, female; Device placement; Other vascular access device placement or adjustment; Central line, non-tunnelled; Additional info: Central line placement TECHNIQUE: Frontal view of the chest. COMPARISON: CR - CHEST AP PORT X-HESS 2016-06-24 22 :18 FINDINGS: Lungs: Unremarkable. No consolidation. Pleural space: Unremarkable. No pneumot horax. Heart: Unremarkable. No cardiomegaly. Mediastinum: Right central venous geni ter tip overlies superior cavoatrial junction.. Bones/joints: Unremarkable. IMPRESSION: Normal chest x-ray. REPORT SIGNED IN OTHER VENDOR SYSTEM 06/27/2017 Reported By: Sourav Ramirez MD CC: Evelyn Inman Transcribed Date/Time: 06/27/2017 (031 ) Site Monitor: Printed Date/Time: 10/17/2018 (3501) PAGE 1 Signed Report Performing Organization Address City/State/ZIP Code Phon e Number [facility] RADIOLOGY documented in this encounter Visit Diagnoses Not on filedocumented in this encounter
--- OUTSIDE RECORDS SUMMARY | 2022-02-03 16:05 | XMS_ITS | Encounter Summary ---
:1980 Author Organization [facility] Address [address] [place] [address] Care Team Providers Name Role Phone Unknown, Provider Primary Care Provider Encounter Details Date Type Department Care Team Description 06/25/2017 Hospital Encounter [facility] - Unknown, Jessica howell [facility] [phone] [place] [address] (Work) [place] [address] Social History Tobacco Use Types Packs/Day Years [...] older) documented as of this encounter Discharge Disposition Disposition Code Departure Means Destination Home or Self Care documented in this encounter Plan of Treatment Not on filedocumented as of this encounter Visit Diagnoses Not on filedocumented in this encounter Care Teams Quilt Maker Relationship Specialty Start Date End Date Unknown, Provider, PCP - General 02/26/14 06/26/17 documented as of this encounter
--- OUTSIDE RECORDS SUMMARY | 2022-02-03 16:05 | XMS_ITS | Encounter Summary ---
:1980 Author Organization [facility] Address [address] [place] [address] Care Team Providers Name Role Phone Unavailable Primary Care Provider Unavailable Encounter Details Date Type Department Care Team Description 06/27/2017 Results Only Imaging [facility]- Unknown, [facility] Provider, Social History Tobacco Use Types Packs/Day Years [...] Name Type Priority Associated Diagnoses Date/Ti me OUTSIDE IMAGES - OTHER Imaging 06/27 13:44 EST CHEST OUTSIDE IMAGES - CT [facility] Imaging 06/01 13:44 EST documented as of this encounter Visit Diagnoses Not on filedocumented in this encounter
--- OUTSIDE RECORDS SUMMARY | 2022-02-03 16:05 | XMS_ITS | Encounter Summary ---
:1980 Author Organization [facility] Address [address] [place] [address] Care Team Providers Name Role Phone Unknown, Provider Primary Care Provider Encounter Details Date Type Department Care Team Description 07/05/2016 Historical Results [facility] - Ana Ackerman, Only [facility] [place] [address] [phone] Social History Tobacco Use Types Packs/Day [...] Associated Comments Diagnosis COMPLETE BLOOD COUNT Routine 07/05/2016 6:45 Resu lts for this WITH DIFFERENTIAL EST procedure are in (AUTO) the results section. BASIC METABOLIC PANEL Routine 07/05/2016 6:45 Res ults for this (BMP) EST procedure are i n the results section. documented in this encounter Results (ABNORMAL) BASIC METABOLIC PANEL (BMP) (07/05/2016 6:45 EST) BUN - [facility] 31 (H) 7 - 18 mg/dL [facility] CALCIUM - [facility] 8.8 8.5 - 10.1 [facility] mg/dL [place] [facility] Chloride 101 98 - 107 mEq/L [facility] CO2 Total 31 21 - 32 mEq/L [facility] CREATININE 0.78 0.5 - 1.3 [facility] mg/dL [place] [facility] eGFR >60 [facility] Comment: [place] [facility] Chronic renal impairment is defined as GFR <60 Multiply result by 1.210 for patients . eGFR calculated using the IDMS-traceable MDRD Study Equation. ??(effective 03/02/2014) Anion Gap 6 5 - 15 [facility] GLUCOSE - [facility] 81 70 - 100 mg/dL [facility] Potassium 4.7 3.5 - 5.0 [facility] mEq/L [place] [facility] Sodium 137 135 - 145 [facility] mEq/L [place] [facility] Specimen Performing Organization Address City/State/ZIP Code Phon e Number [facility] [address] LAB (ABNORMAL) COMPLETE BLOOD COUNT WITH DIFFERENTIAL (AUTO) (07/05/2016 6:45 EST) Pathologist Sig nature ABSOLUTE NEUTROPHIL 2.29 1.7 - 7.0 [facility] COUN - [facility] 10e3/ul CENTER LAB BASO # - CV 0.06 0.0 - 0.3 [facility] 10e3/uL [place] [facility] BASO % - [facility] 1 0 - 2 % [facility] EOS # - [facility] 0.19 0.05 - 0.5 [facility] 10e3/uL [place] [facility] EOS % - [facility] 4 0 - 5 % [facility] GRAN % - [facility] 49 40 - 80 % [facility] HEMATOCRIT - [facility] 30.6 (L) 34.0 - 47.0 % [facility] HEMOGLOBIN - [facility] 9.3 (L) 11.2 - 15.7 [facility] g/dl [place] [facility] IG# - [facility] 0.03 0 - 0.07 [facility] 10e3/uL [place] [facility] IG% - [facility] 0.6 0 - 0.9 % [facility] LYMPH # - [facility] 1.63 0.9 - 2.9 [facility] 10e3/uL [place] [facility] LYMPH% - [facility] 35 20 - 40 % [facility] MEAN CORPUSCULAR HGB 25.9 (L) 26 - 34 pg [facility] LAB MEAN CORPUSCULAR HGB 30.4 (L) 31 - 36 g/dL [facility] CONC [facility] MEAN CELL VOLUME - 85.2 77 - 100 fl [facility] MONO # - [facility] 0.49 0.3 - 0.9 [facility] 10e3/uL [place] [facility] MONO% - [facility] 10 0 - 12 % [facility] PLATELET COUNT 501 (H) 150 - 400 [facility] 10e3/ul [place] [facility] RED BLOOD COUNT - 3.59 (L) 3.8 - 5.2 [facility] 10e6/ul [place] [facility] RED CELL DISTRI WIDTH 17.4 (H) 11.8 - 15.6 % [facility] D - [facility] WHITE BLOOD COUNT - 4.7 3.5 - 10.5 [facility] 10e3/ul [place] [facility] Specimen Performing Organization Address City/State/ZIP Code Phon e Number [facility] [address] [place], [place] [id number] [place] [address] LAB documented in this encounter Visit Diagnoses Not on filedocumented in this encounter Care Teams Automatic Washer Mechanic Relationship Specialty Start Date End Date Unknown, Provider, PCP - General 02/26/14 06/26/17 documented as of this encounter
--- OUTSIDE RECORDS SUMMARY | 2022-02-03 16:05 | XMS_ITS | Encounter Summary ---
:1980 Author Organization [facility] Address [address] [place] [address] Care Team Providers Name Role Phone Unavailable Primary Care Provider Unavailable Reason for Referral Referral (Routine/Next Available) - New Request Specialty Diagnoses / Procedures Referred By Contact Refer red To Contact Diagnoses Pseudoaneurysm of femoral artery (HCC-CMS) (HCC) Vj Christina MD Anti, Eliza Weston, NP [address] [facility] [address] [place] [phone] [place] [phone] Referral ID Status Reason Start Expiration Visits Visits Date Date Requested Authorized [id number] New Request Specialty 07/09/2017 1 1 Services Required Question Answer I certify that this patient is under my care 07/06/2017 and that I, or another Medicare allowed practitioner (DO AIDEE, STU) working with me, had a ruuv-kj-oodt encounter with this patient on this date: I further certify that the qslb-cj-tsdj Yes encounter was in whole or in part related to the reason the patient needs home health care. The discharge summary or progress note will Yes provide further details that support the need for the home health services and the plan of care. Enter the allowed practitioner (DO AIDEE, STU) Brandon who will provide oversight of this patient's home heatlh care needs and plan of care The patient? post-operative leg bypass with open woun d s homebound status is related to the following diagnoses, illness or condition (describe): Patient needs one or more of the following The assista nce or supervision of another to leave home: person Leaving the home is medically Not medically contraindi cated, but needs contraindicated due to: assistance as indicated abov e. The following conditions illustrate the Post surgical or post procedure patient? restrictions limit ambulation and s normal inability to leave home AND that activity leaving home requires a considerable and taxing effort: Skilled Care Requested Nursing asessment, Wound car e MCFP assessment needed related to Post Surg ical this encounter: Usp Referral - Wound Care: Post Surgical (Please include care and frequency.) Number of Wound/Dressing Sites: 1 Wound/Dressing Location Site 1 Groin Wound/Dressing Orientation Site 1 Right Dressing Type Site 1 Moist to Dry Cleanse Wound Site 1 Normal Saline Associated Medications Site 1 (Please make Not Applica ble sure you also place separate order) Contact Layer Site 1 4 X 4 Middle Layer Site 1 Not Applicable Outside Layer Site 1 4 X 4 Adhesive Site 1 Paper Scheduling Comments (optional ? MILENA describe specific scheduling needs if applicable): Comments For [facility] Health Encounter Details Date Type Department Care Team Description 06/28/2017 [facility] Grzegorz Ramos Burt eurysm of femoral artery ([facility]) (Primary Dx); - Encounter Cardiothoracic MD Zeferino Staphylococcus aureus infection; 07/06/2017 Surgery Unit [address] [facility] (intravenous drug user) ; [address] [place] [address] History of adverse drug reaction; [place] [address] [address] [place] Acute post-operative pain; [phone] [address], [address] Pseudoaneurysm ([facility]) ([facility]); [place], [place] Fever, unspec ified fever cause [id number] Social History Tobacco Use Types Packs/Day Years [...] Sign Reading Time Taken Comments Blood Pressure 133/109 07/06/2017 0543 EST Pulse 80 07/03/2017 1404 EST Temperature 36.5 ??C (97.7 ??F) 07/06/2017 0706 EST Respiratory Rate 24 07/06/2017 0706 EST Oxygen Saturation 93% 07/06/2017 0706 EST Inhaled Oxygen Concentration - - Weight 61.7 kg (136 lb) 06/28/2017 1045 EST Height 165.1 cm (5' 5) 06/28/2017 1045 EST Body Mass Index 22.63 06/28/2017 1045 EST documented in this encounter Functional Status [...] older) documented as of this encounter Discharge Diagnoses Diagnosis I72.4 Aneurysm of artery of lower extrem ity-I72.4[ICD-10-CM] F11.23 Opioid dependence with withdrawal -F11.23[ICD-10-CM] I82.411 Acute embolism and thrombosis of right femoral vein-I82.411[ICD-10-CM] L02.214 Cutaneous abscess of groin-L02.2 14[ICD-10-CM] 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 providers found Admit Date: 06/28/2017 Discharge Date: 07/06/2017 Disposition: Home or self care, patient left AMA Problems and Procedures Admitting Diagnosis: infected right common femoral artery pseudoaneurysm Principal/Final Diagnosis: same Additional Problems Managed in the Hospital Active Hospital Problems Diagnosis Date Noted ??? *Pseudoaneurysm of femoral artery ([facility]) 06/28/2017 Resolved Hospital Problems Diagnosis Date Noted Date Resolved No resolved problems to display. Principal Procedure: 1.Right external iliac to superficial femoral artery obturator bypass using 6 mm PTFE 2. Incision and debridement of right groin Date: 06/29/2017 Secondary Procedures: Wound vac placement date: 07/02/2017 Hospital Course Ms. 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 She underwent right external iliac to superficial femoral artery obturator bypass, incision and debridement of her right groin on 06/29/2017. She was started on IV antibiotics vancomycin and rifampin, and followed by infectiousdisease during her stay. Her hospital course was complicated by fever and tachycardia, that was deemed secondary to withdrawal symptoms. She eventually left against medical advice on 07/02/2017, with a [facility]; and follow up with infectious disease for daily injections of IV antibiotic daptomycin. Below are the details of her hospital course. Patient noted that on 06/24/2017 she developed an egg shaped lesion over her right groin that was very painful. She presented to [facility] on 06/25/2017. She had been taking 4-5 Augmentin pills prior to presenting to [facility]; and had subjective fevers. At [facility] she underwent I&D of right groin abscess and was started on vancomycin, levofloxacin, metronidazole and clindamycin. She was transferred to [facility] on06/28/2017 for further care infected right femoral pseudoaneurysm seen on CTA. Patient was immediatelyadmitted to the SICU due to risk for rupture of her pseudoaneurysm, with the need for close neurovascular monitoring until surgery. Infectious disease was consulted and recommended stopping levofloxacin, metronidazole; continuing vancomycin at 15 mg/kg IV every 12 hours. Rifampin was later added 300 mg q 12 hours. Her wound cultures from 06/25 were positive for MSSA. Blood cultures from 06/25 and 06/28 drawn at [facility] continued to show no growth. On 06/29/2017 patient underwent the surgery noted above. She had an NGT tube placed intraoperatively, yet this was removed by the patient on 07/01/2017. APS was consulted for pain management and started the patient on a ketamine trip, scheduled tylenol, hydromorphone ASBESTOS REMOVER, tizanidine, motrin and valium. Ketamine was eventually weaned on POD #3. Daily dressing wet to dry changes of the right groin were performed daily, yet the patient had trouble tolerating this. Thus on 07/02/2017 a wound vac was placed with a plan to change bi-weekly. Yet on 07/05 the wound vac was discontinued as patient felt that the wound vac changes were even more painful. She was put back on daily wet-to dry dressing changes. Due to the need for residential antibiotics, on 07/02/2017 a PICC line was placed with interventional radiology. Eventually it became clear that the patient would not stay in the hospital for termite renewal inspector IV antibiotic treatment, and that it was not safe for her to discharge home with a PICC line in place given her history of IVDU. Thus on 07/04 her vancomycin and rifampin were discontinued, and she was started on daptomycin 8 mg /kg every 24 hours with a plan to administer daily injections as an outpatient upon discharge. On 07/03/2017 patient was noted to have febrile to 39 C; HR 120, BP 113/70. Patient felt nauseous and Zofran was given. EKG, CXR, UA, troponin were negative. CTA showed a right common femoral DVT and shewas started on therapeutic Lovenox. It was deemed that since the patient recently had her dilaudid ASBESTOS REMOVER discontinued, her symptoms were likely secondary to withdrawal symptoms. APS was consulted, and recommended tizanidine. On 07/06/2017 patient decided to leave against medical advice, citing her need to access the suboxone pills that she had at home. Attending surgeon Dr. Ramos pled with the patient to stay, for fear that her at her bypass could get infected and that she could lose her leg and even her life without proper care and follow-up plan. The patient persisted on leaving. An urgent psych consult was placed to confirm her state of mind-- they recommended assessing the patient's decision making capacity as outlinedin Julianbaum 2007 Assessment of patient's competence to consent to treatment. Dr. Christina performed this assessment and deemed that Ms. Jean Baptiste indeed possessed the competence to refuse treatment and re commendations to be discharged in a more organized manner with safe plans of care in place. Ms. Jean Baptiste was counseled that she should not resume her usual dose of suboxone when she goes home yet shouldfollow up as arranged for planned opoid withdrawal and suboxone induction; as well as daily IV antibiotics infusion. Case management contacted medical leader Dr. Valdez to [facility]. The patient was instructed to follow up with Dr. Gorman, infectious disease specialist at [facility] for daily daptomycin injections. A referral to home health [facility] was made for dressing imer nges. Allergies and Immunizations No Known Allergies There is no immunization history on file for this patient. Transition of Care Plans .TAKING CARE OF YOURSELF AFTER YOUR LEG BYPASS SURGERY: DOs AND DON???Ts Your doctor has discharged you from the hospital. The following information will help guide your recovery. Each patient is unique. However, these general guidelines will promote healing. 1. Activity: We encourage alternating walking with lying flat with your leg elevated on two pillows. This helps to prevent swelling. Do: walk frequently at home, gradually increasing your activity. Don't: don???t sit for long periods of time with your legs bent. This can lead to excessive swellingwhich can interfere with healing. Sit for only 15 minutes at a time. No heavy lifting or strenuous activity for at least 2 weeks. 2. Diet: It is important for healing that you eat a balanced diet with protein, vegetables, and fruits. Adequate nutrition also helps prevent infection. Do: eat several small meals per day rather than three large ones. Supplements such as Ensure or Boost drinks, found in the supermarket or drug store, are very good. Drink two or more a day. Don't: don???t skip meals. Don't consume empty calories such as candy and soda. 3. Medications: In general, you will resume all the medications you were taking before your surgery. Your doctor, nurse practitioner, and hospital nurses will review your medications (and any changes) with you beforeyou leave. Unless you are already taking a blood thinner such as coumadin (Warfarin), you may be asked to take an aspirin every day. You may also be asked to take medications called beta blockers and/or statin for several weeks to protect your heart as your body heals. You will receive a prescription for pain medication. Take your pain medication before the pain gets severe. Pain medicines can make you sleepy and can cause constipation. Drink adequate amounts of water, and eat food composed of fiber, such as fruits, vegetables, and whole grains. You may take a stool softener such as colace while your are on prescription pain medications if needed. In addition, switching to ibuprofen (for example, Advil) or acetaminophen (for example, Tylenol) when the pain decreases will help to reduce constipation. Do: continue your medications as prescribed at the time of discharge. Be sure to follow instructionsfor blood tests if you are on a blood thinner such as coumadin (Warfarin). Don't: don???t stop medications without consulting your surgeon. Some medicines are important for maintaining blood flow in your leg. 4. Care of your incisions: You may take a shower every day. You can gently wash your incisions, even if there are david or stitches. You should not take a bath, however. Be sure to pat dry your incisions. If you have an incision in your groin, place a dry 4x4 gauze pad on it each day or more as needed to keep clean and dry. Be sure to continue dressing changes for at least as long as your david or sutures are in place. Ifyou have visiting nurses helping you with dressings, they will have specific instructions. Your david and/or stitches will stay in for about 14 days. Do: observe your incisions. Mild redness at the staple sites is normal. Call your doctor if the edges separate, if you have drainage or the redness spreads. Call your doctor if pain increases, or if your leg looks pale or feels cold. Call if you develop fever or chills. Don't: don???t remove steri-strips (the white pieces of tape that may be on your incision). Allow them to dry and fall off. Don't forget to keep a dry dressing in the groin area at all times until yourstaples/stitches are taken out. 5. Follow-up appointments: See your surgeon about two weeks from the date of surgery. It is likely that david and/or stitcheswill be removed at that time. Follow up with your Primary Care Physician in 7-10 days for blood pressure check and medication review. Do: keep your follow-up appointment with your surgeon. Don't: don???t put off calling your surgeon if you develop a fever, or if your incisions have drainage or increased redness. Follow up with your Primary Care Physician (Suzie Taylor) in 7-10 days. Please call to schedule an appointment. Future Appointments Date Time Provider Department Center 07/23/2017 9:30 Vascular, Pre Op MP5 VascSurg None 6. Miscellaneous: You should not drive until your david or stitches are removed and you have regained full motion ofyour leg. Don't drive if you are taking prescription pain medicine. Some leg swelling is expected. If swelling is a problem, elevate the leg more often. Elevation means toes above the nose. You may call your doctor for advice about using a compression stocking or Brent wrap. You will need to limit your activity and elevate your leg for several weeks after your surgery. Remember: you have had a major operation. Take things slowly. It is normal to have energy one day and then to feel worn out the next day. YOUR DOCTOR WANTS YOUR LEG TO BE ELEVATED SO THAT YOUR TOES AREAT THE LEVEL OF YOUR NOSE WHILE YOU ARE RESTING. Call us if you have a concern: the Vascular Surgery telephone number is [phone]. Condition at Discharge Fair Physical Exam: General: Alert, cooperative, no acute distress Lungs: non-labored breathing Heart: regular rate and rhythm Abdominal: RLQ incision intact with david - no drainage or erythema Extremities: right groin wound with packed open, sero-sanguinous drainage, no purulence. Pulses: palpable pedal pulses bilaterally Assessment at Discharge Vital signs: No data found. Discharge Medications: START taking these medications Sig acetaminophen 500 mg tablet Commonly known as: TYLENOL Take 2 Tabs by mouth every 6 hours. aspirin chewable 81 mg tablet Take 1 Tab by mouth daily for 30 days. Quantity: 30 Tab DAPTOmycin 495 mg in sodium chloride 0.9 % 50 mL Inject 495 mg into the vein every 24 hours for 30 days. Or continue until follow-up appointment with ID. Compound in patient ready to use form. Pharmacy may adjust diluent and/or volume. polyethylene glycol 3350 17 gram packet Commonly known as: MIRALAX Take 17 g by mouth daily for 30 days. Quantity: 30 Packet tiZANidine 4 mg tablet Commonly known as: ZANAFLEX Take 1 Tab by mouth 3 times daily for 30 days. Quantity: 30 Tab CONTINUE taking these medications Sig Multivitamins with Minerals tablet tablet Take 1 Tab by mouth daily. STOP taking these medications buprenorphine-naloxone 2-0.5 mg tablet, sublingual Commonly known as: SUBOXONE Results Pending at Discharge Test results still pending from this admission Procedure Component Value Units Date/Time Bacterial Culture, Blood [[id number]] Collected: 07/03/17 2340 Lab Status: In process Specimen: Blood Updated: 07/04/17 0005 Bacterial Culture, Blood [[id number]] Collected: 07/03/170 Lab Status: In process Specimen: Blood Updated: 07/03/172204 Relevant Studies at Discharge 07/04/2017 CTA runoff: IMPRESSION: ?? 1. Patent right external iliac artery to right superficial femoral ?? artery obturator bypass graft. Of note, there is a stripped off ?? segment of ring covering adjacent to the bypass graft. ?? 2. Soft tissue edema and reticulation as well as skin thickening in ?? the proximal right thigh, likely primarily related to impaired ?? venous drainage in the setting of right common femoral vein DVT. ?? 3. Postoperative changes in the right lower quadrant and right groin ?? as above. Soft tissue reticulation and subcutaneous gas in this ?? region and also tracking within the abdominal wall is presumed ?? primarily postoperative in nature, though in the setting of fever ?? could reflect a component of cellulitis. In any case, there is no ?? organizing or drainable superficial soft tissue or abdominal wall ?? fluid collection. ?? 4. Small amount of free intra-abdominal air and free fluid in the ?? deep pelvis, presumably postoperative and without organizing ?? collection. ? 07/03/2017 ECG: SINUS TACHYCARDIA ?? ABNORMAL RHYTHM ECG 07/05/2017 Echo: ?? 1. Left ventricle: The cavity size was normal. Wall thickness was ? normal. Systolic function was normal. The estimated ejection fraction ? was 60-65%. Wall motion was normal; there were no regional wall ? motion abnormalities. ?? 2. Right ventricle: The cavity size was normal. Wall thickness was ? normal. Systolic function was normal. Last Lab Results at Discharge 07/06/2017: WBC 6.94; Hg =8.8; HCT =27; Plt =431. Discharge Follow Up Appointments Scheduled with [facility] in the next 3 months Upcoming Appointments Jul 18, 2017 14:30 EDT Post-Op Visit with Grzegorz Ramos MD [facility] Vascular Surgery - [facility] (--) [address] [facility] [id number] Jul 18, 2017 15:00 EDT Follow Up Return with Arthur Coleman MD [facility] Infectious Disease - [facility] (--) [address] [facility] [id number] Appointments and Procedures Recommended to Patient Follow-up appointments and procedures Home Health Agency-Other For [facility] I certify that this patient is under my care and that I, or another Medicare authorized non-physician practitioner (PA or KNITTING INSPECTOR) or resident working with me, had a eizf-kh-ywlm encounter with this patienton this date: 07/06/2017 I further certify that the qypw-ol-vhsf encounter was in whole or in part related to the reason the patient needs home health care.: Yes The patient has had a vumy-jj-nqbg visit by me or one of my colleagues. The discharge summary or progress note will provide further details that support the need for the home health services and the plan of care.: Yes The MD/DO who will provide oversight of this patient's home heatlh care needs and plan of care: Anti The patient???s homebound status is related to the following diagnoses, illness or condition (describe): post-operative leg bypass with open wound Patient needs one or more of the following to leave home: The assistance or supervision of another person Leaving the home is medically contraindicated due to: Not medically contraindicated, but needs assistance as indicated above. The following conditions illustrate the patient???s normal inability to leave home AND that leaving home requires a considerable and taxing effort: Post surgical or post procedure restrictions limit ambulation and activity Skilled Care Requested: Nursing asessment Wound care MCFP assessment needed related to this encounter: Post Surgical Usp Referral - Wound Care: (Please include care and frequency.): Post Surgical Number of Wound/Dressing Sites: 1 Wound/Dressing Location Site 1: Groin Wound/Dressing Orientation Site 1: Right Dressing Type Site 1: Moist to Dry Cleanse Wound Site 1: Normal Saline Associated Medications Site 1 (Please make sure you also place separate order): Not Applicable Contact Layer Site 1: 4 X 4 Middle Layer Site 1: Not Applicable Outside Layer Site 1: 4 X 4 Adhesive Site 1: Paper Scheduling Time Frame: [facility] Authorizing Provider: Vj Christina MD Studies We Will Schedule none Blanquita Soto MD 07/06/2017 19:57 documented in this encounter Discharge Instructions Zoya Hua RN - 07/02/2017 RADIOLOGY PATIENT EDUCATION INSTRUCTIONS FOLLOWING PLACEMENT OF VENOUS ACCESS CATHETERS (Outside the skin) Procedure Site - left upper arm Physician Performing Procedure - Karel Saldaña MD and Denis Vazquez MD Left upper extremity 4fr SL Power PICC line. Type of Venous Access Catheter - Power PICC Selected vein - Tip of the Catheter - Total Length - cm External Length - cm The type of catheter chosen depends on what you and your physician have discussed. A venous access catheter is used for termite renewal inspector antibiotics, supplements IV nutrition, blood products, medication or hemodialysis. It is connected to a tube, which is placed in the superior vena cava, a vein close to your heart, and external tubing comes out of the skin site like an IV. ?? Wound Care - The dressings will be changed by the nurse delivering your prescribed therapy, by the [facility] nurse, or by your dialysis nurse. The dressings used are to be placed in a sterile fashion to avoid infection. ?? Showering/Bathing - You may shower, if you place Saran Wrap and tape over the dressing and catheters to help prevent them from getting wet. ?? BE SURE TO SECURE THE DANGLING TUBING, to avoid stress or tension. This could lead to the catheters being pulled on or possibly coming out. ?? If the catheter does accidentally get pulled out, DO NOT try to advance back in, secure it and call your physician in the morning. If the catheter comes completely out, cover with a sterile dressingand call your physician. IF YOU HAVE ANY QUESTIONS OR CONCERNS REGARDING THE PROCEDURE, PLEASE CALL THE INTERVENTIONAL RADIOLOGY CLINIC . SOMEONE IS AVAILABLE TO TAKE YOUR CALL 24 HOURS A DAY. documented in this encounter Medications at Time of Discharge Medication Sig Dispensed Refills Start Date End Date acetaminophen (TYLENOL) Take 2 Tabs by mouth 0 500 mg tablet every 6 hours. aspirin chewable 81 mg Take 1 Tab by mouth 30 Tab 0 06/2808/06/2017 tablet daily for 30 days. DAPTOmycin 495 mg in Inject 495 mg into 1 018 08/05/2017 sodium chloride 0.9 % 50 the vein every 24 mL hours for 30 days. Or continue until follow-up appointment with ID. Compound in patient ready to use form. Pharmacy may adjust diluent and/or volume. Multivitamins with Take 1 Tab by mouth 0 03/12/2019 Minerals tablet tablet daily. polyethylene glycol 3350 Take 17 g by mouth 30 Packet 0 01/201808/06/2017 (MIRALAX) 17 gram packet daily for 30 days. tiZANidine (ZANAFLEX) 4 Take 1 Tab by mouth 3 30 Tab 0 0 07/06/2017 08/05/2017 mg tablet times daily for 30 days. documented as of this encounter Ordered Prescriptions Prescription Sig Dispensed Refills Start Date End Date acetaminophen (TYLENOL) Take 2 Tabs by mouth 0 500 mg tablet every 6 hours. polyethylene glycol 3350 Take 17 g by mouth 30 Packet 0 01/201808/06/2017 (MIRALAX) 17 gram packet daily for 30 days. tiZANidine (ZANAFLEX) 4 Take 1 Tab by mouth 3 30 Tab 0 0 07/06/2017 08/05/2017 mg tablet times daily for 30 days. DAPTOmycin 495 mg in Inject 495 mg into 1 018 08/05/2017 sodium chloride 0.9 % 50 the vein every 24 mL hours for 30 days. Or continue until follow-up appointment with ID. Compound in patient ready to use form. Pharmacy may adjust diluent and/or volume. aspirin chewable 81 mg Take 1 Tab by mouth 30 Tab 0 06/2808/06/2017 tablet daily for 30 days. documented in this encounter Discharge Disposition Disposition Code Departure Means Destination Left Against Medical Advice documented in this encounter Progress Notes Gerard Louis, PT - 07/06/2017 1100 EST [facility] Rehabilitation Therapy Acute Therapies [facility] Physical Therapy Discontinue/Discharge Note Date of Service: 07/09/2017 Precautions: Activity as tolerated and Weight bearing to tolerance SUBJECTIVE: NA OBJECTIVE: Intervention Completed Today: No treatment rendered today due to: patient has been/will be discharged from hospital. Team Communication: NA Patient has been seen in physical therapy since 07/01/17 for Therapeutic exercises and Therapeutic activities. In this reporting period 07/01/17 to 07/03/17 the patient has been seen by a physical therapist. Please refer to the physical therapy notes for specifics on the patient's functional status and treatment sessions. Relevant objective findings: INTEGUMENTARY/ANTHROPOMETRIC CHARACTERISTICS: Patient with incisions and wound vac, on 07/03/17, clean/dry/intact RANGE OF MOTION AND JOINT INTEGRITY: right LE ROM limited by pain BALANCE, MOBILITY, AND GAIT: Per note dated 07/03/17: 1. Bed Mobility: Independent 2. Transfers: 1. Supine to sit: Independent 2. Sit to stand from bed with RW: modified independent 3. Stand to sit at recliner with RW: modified independent 3. Ambulation: Ambulated ~100 feet with RW and assist to carry wound vac, supervision, decreased stance time on right LE with right knee flexion through entire gait cycle and right foot ER. Slow speed with increasing pain as patient increased ambulation distance. ASSESSMENT: Physical therapy services in this setting have been discontinued secondary to: Patient has been or will be discharged from the hospital Physical Therapy Diagnosis: Patient presents with primary physical therapy diagnosis of force production problem with the following impairments: impaired strength, impaired gait, pain and fatigue associated with bypass surgery for RIGHT FEMORAL PSEUDOANEURYSM. The following activity limitations are noted: difficulty with transfers, ambulation and tolerance to activity resulting in an inability for the patient to participate in pre-morbid lifestyle and family activities. Physical Therapy Prognosis: Patient demonstrated improved mobility during hospital stay. Anticipate continued gains with return to regular daily activities. Patient left AMA, unclear if there will be any home health PT but patient will be receiving daily IV meds and followed for suboxone. All unmet goa ls discontinued. Short-Term Goals: NA ?? Long-Term Goals: (DISCONTINUE unless otherwise noted) ?? The patient will be able to perform bed mobility with modified independence assist demonstrating appropriate sequencing/motor planning. ?? The patient will be able to perform bed to chair transfers with modified independence while demonstrating an effective strategy for recovery of loss of balance. ?? The patient will be able to ambulate with modified independence with no loss of balance on level surfaces 200 feet. ?? The patient and/or caregiver will be able to recall and demonstrate precautions. PLAN: D/C Physical Therapy Recommended Discharge Destination: Home with family Recommended Discharge Services: Home health physical therapy Recommended Equipment Needs: Rolling walker Other recommendations: No other consults recommended at this time Pager: [phone] Gerard Louis, POONAM 07/09/2017 8:06 Valerie Fuentes, OT - 07/06/2017 1100 EST Rehabilitation Therapies Acute Therapies [facility] Occupational Therapy Discontinue/Discharge Note Date: 07/07/2017 SUBJECTIVE: None OBJECTIVE: The patient initiated occupational therapy on 07/03/2017. The patient has been discharged from the hospital. Per chart review, pt. made decision to leave AMA. Please refer to the Occupational Therapy Initial Evaluation Note dated 07/03/2017 for details. ASSESSMENT: Unable to assess her current status as the patient was not seen for any additional therapy sessions. GOALS: All goals discontinued. PLAN: Discontinue occupational therapy. Valerie Flores OT 07/07/2017 8:28 Vj Escboar MD - 07/06/2017 1100 EST Brief Update Patient seen with Dr. Ramos as described in his note. Patient assessed for decision making capacity per criteria outlined in Zoë Viramontes (citation below). At the time of our conversation, Lindsay Jean Baptiste was alert and oriented to person, place and time and was medically stable. We had a lengthy discussion about the risks she was assuming by leaving AMA, including risk of life-threatening infection, potential need for re-intervention or possibly amputation, in addition to the risks of opioid and suboxone withdrawal or overdose resulting from leaving without a safe discharge plan for resuming her suboxone. She clearly communicated her choice to leave against medical advice and repeated back to me her understanding of the relevant information we had discussed. She demonstrated that she appreciated the situation and its consequences and her reasoning for making this decision. I therefore feelshparker possesses the competence to refuse our recommendations to be discharged in a more organized manner with safe plans of care in place. I also explicitly stated that she should not resume her usual dose of suboxone when she goes home and should follow up as arranged for planned opioid withdrawal and suboxone induction, as well as daily IV antibiotics infusion, as arranged by our case management team(see case management note for details). She communicated her understanding of this and agreed to do so. Vj Christina MD 07/06/2017 11:46 PGY-3 [id number] 1. Wander PS. Clinical practice. Assessment of patients' competence to consent to treatment. N Engl J Med 2007; 357:1834. Nya Galicia RN - 07/06/2017 0956 EST Patient left AMA today. Prior to discharge, team and CM made arrangements for patient to get care and therapy in alternative settings. Because of her history of IVDU, it was not safe for her to discharge with a PICC line so this was removed. CM coordinated with [facility] (Jaja GUERRERO pager [phone]) for herto get daily infusions of IVAB. They agreed, schedule pending, with first outpatient infusion tomorrow morning. Patient will miss today's dose since she was not willing to stay to receive it. CM spoke to Dr. Coleman who will need to fill out [facility] order sheet. Per Dr. Coleman' request, [facility]fusion [facility] to fax this directly to her. Team also coordinated with ID physician and [facility] who has also agreed to follow patient. Since patient's physician who was writing suboxone orders for patient is not willing to follow her now that she has left the hospital AMA (and not willing to be re-inducted on suboxone in a safe manner), she will be followed by [facility]: [address] [place] [address], [address] [place] [address] CM spoke to their medical leader, Dr. Page. They will accept patient, and begin suboxone induction tomorrow. Patient was made aware of their hours (5:30 AM to 9:30 AM on the weekend, and 5:30 AM to 11:30 AM during the week), and that she would like need to be there 1 1/2 -2 hours. CM also made [facility] CM aware that they would have to coordinate the timing of her infusion with the timing of her suboxone induction. They will call the patient to discuss (pt gave spouse's phone: [phone]). Nya Blandon, JARRED [phone] Per team's request, CM left a message at the [facility] wound clinic to see if they can manage the patient's daily wound care. Veronica Rolle MD - 07/06/2017 0915 EST Anesthesia Pain Service Subjective: This is a 36 y.o. year old female with a history of IVDU (with multiple associated abscesses), hepatitis C, depression, opioid dependence on suboxone 12-6mg (last dose06/28) cocaine abuse, and MSSA bacteremia who was found to have a right femoral artery pseudoaneurysm on CTA after a right groin wound I&D. She injected cocaine into her right femoral artery and left upper extremity a few says prior to the start of her right leg pain. She presented to the ED at [facility] on 06[place]25 due to a painful lesion inher right groin. She is now POD#7 s/p obturator bypass. Patient was transitioned to oral hydromorphone yesterday. She has been claiming to have symptoms of withdrawal, though she does not appear to actually be having any symptoms of withdrawal according to the COW scale. Patient states that I have been telling everyone that I am in withdrawal and nobody cares, so I am leaving at 10:00. She has been afebrile. Objective: Vitals: Blood pressure (!) 133/109, pulse 80, temperature 36.5 ??C (97.7 ??F), temperature source Tympanic, resp. rate 24, height 165.1 cm (65), weight 61.7 kg (136 lb), SpO2 93 %. Scheduled Medications: Current Facility-Administered Medications: acetaminophen (TYLENOL) tablet 1,000 mg oral Q6H alteplase (CATHFLO ACTIVASE) injection 2 mg intercatheter PRN aspirin chewable tablet 81 mg oral DAILY bisacodyl (DULCOLAX) suppository 10 mg rectal Daily PRN DAPTOmycin (CUBICIN) 495 mg in sodium chloride (NS) 0.9 % 50 mL IVPB intravenous Q24H diphenhydrAMINE (BENADRYL) capsule 25 mg oral Q6H PRN docusate sodium (COLACE) capsule 100 mg oral BID PRN enoxaparin (LOVENOX) injection 60 mg subcutaneous Q12H hydrocortisone 1 % cream topical TID PRN HYDROmorphone (DILAUDID) tablet 2-8 mg oral Q4H PRN HYDROmorphone injection (DILAUDID) 0.5 mg/1 mL syringe 0.25-0.5 mg intravenous Q4H PRN LORazepam (ATIVAN) injection 0.5-1 mg intravenous AT BEDTIME PRN polyethylene glycol 3350 (MIRALAX) packet 17 g oral DAILY senna (SENOKOT) tablet 1 Tab oral QHS sodium chloride 0.9 % flush 3 mL intravenous Q8H tiZANidine (ZANAFLEX) tablet 4 mg oral TID Allergies: No Known Allergies Labs: Lab Results Component Value Date WBC 6.94 07/06/2017 HGB 8.8 (L) 07/06/2017 HCT 27.0 (L) 07/06/2017 MCV 86 07/06/2017 PLT 431 (H) 07/06/2017 No results found for: INR, PROTIME Examination: General: Sitting in bed. Appears comfortable playing with cell phone. Not fidgety or restless Resp: Breathing nonlabored Analysis and Plan: This is a 36 y.o. year old female with a history of cocaine, IVDU, hep C and depression now POD#7 s/p obturator bypass claiming to have withdrawal symptoms and threatening to leave AMA. According to the COW scale, patient does not appear to be withdrawing. Also, according to the timing of her last dose of buprenorphine (last ), she would have already gone through withdrawal days ago. 1. Plans to leave AMA at 10AM. Encouraged patient to follow up with her suboxone prescriber MILENA. Analgesia from suboxone lasts about 6 hours. If she can have her prescription dose into 3-4 doses per day, this would provide analgesia for her postoperative pain. We encouraged her to ask her prescriber about this. 2. Continue tizanidine 4mg TID for withdrawal symptoms. This will help with muscle relaxation, anxiety, pain, and sleep. 3. Continue acetaminophen 1000 mg Q6H; Veronica Boswell MD Anesthesia PGY-3 Associated attestation - Anika Armenta MD - 07/06/2017 1003 EST I was present for the evaluation and examination of this patient and agree with the above plan. Mely Spears, AUBREE Bueno - 07/05/2017 1532 EST Images from the original note were not included. VASCULAR SURGERY DAILY PROGRESS NOTE LOS: 7 days DOS: 07/05/2017 Procedures: Right external iliac to superficial femoral artery obturator bypass with PTFE. Incision and debridement of right groin. Date: 06/29/17 Left arm PICC line placement. Date: 07/02/17 Chief complaint: Right groin infection with femoral pseudoaneurysm 24 hour events: Transition from oral dilaudid to ASBESTOS REMOVER and tizanidine started for withdrawal symptoms per APS recommendations Wound vacuum therapy discontinued, initiated wet to dry dressings Vancomycin and rifampin discontinued, daptomycin initiated per ID recommendations Subjective: Patient endorses cramping pain in her right thigh, pain control improved today, feeling overall better, nausea resolved, had a small bowel movement yesterday. Current Meds: Current Facility-Administered Medications: acetaminophen (TYLENOL) tablet 1,000 mg oral Q6H alteplase (CATHFLO ACTIVASE) injection 2 mg intercatheter PRN aspirin chewable tablet 81 mg oral DAILY bisacodyl (DULCOLAX) suppository 10 mg rectal Daily PRN DAPTOmycin (CUBICIN) 495 mg in sodium chloride (NS) 0.9 % 50 mL IVPB intravenous Q24H diphenhydrAMINE (BENADRYL) capsule 25 mg oral Q6H PRN docusate sodium (COLACE) capsule 100 mg oral BID PRN enoxaparin (LOVENOX) injection 60 mg subcutaneous Q12H hydrocortisone 1 % cream topical TID PRN HYDROmorphone 1 mg/ml (DILAUDID) ASBESTOS REMOVER syringe, 30 ml intravenous ASBESTOS REMOVER LORazepam (ATIVAN) injection 0.5-1 mg intravenous AT BEDTIME PRN polyethylene glycol 3350 (MIRALAX) packet 17 g oral DAILY senna (SENOKOT) tablet 1 Tab oral QHS sodium chloride 0.9 % flush 3 mL intravenous Q8H tiZANidine (ZANAFLEX) tablet 4 mg oral TID Objective: Vitals: Temp: [36 ??C (96.8 ??F)-36.3 ??C (97.3 ??F)] (), Pulse: -- (), Resp: [18] (), BP: (92-119)/(61-83) (), SpO2: [94 %-100 %] () I+O last shift: I+O last 3 shifts: 07/04 1500 - 07/05 1459 In: 1190 [P.O.:1140] Out: 1950 [Urine:1950] Physical Exam: General: Alert, cooperative, no acute distress Lungs: non-labored breathing Heart: regular rate and rhythm Abdominal: RLQ incision intact with david - no drainage or erythema Extremities: right groin wound with packed open, sero-sanguinous drainage, no purulence. Pulses: palpable pedal pulses bilaterally Labs: Recent Labs 07/05/17 0603 WBC 5.80 HGB 8.1* HCT 25.0* PLT 389* Imaging: CT Angio with runoff with/without contrast (07/04/18) Echocardiogram (07/05/17) Microbiology: Blood cultures (06/28/17) - no growth Right femoral artery tissue (06/29/17) - few staph aureus Blood cultures (07/03/17) - pending Hepatitis C RNA quant (07/04/17) - undetected HIV antigen/antibody (07/04/17) - negative Assessment: Lindsay Jean Baptiste is a 36 y.o. female who is now POD# 6 s/p right external iliac to superficial femoral artery obturator bypass with PTFE and incision and debridement of right groin performed secondary to right groin infection with femoral pseudoaneurysm. Has been afebrile for last 24 hours, hemodynamically stable, pain controlled with subjective report of improvement of withdrawal symptoms, stablevascular exam. Plan: Appreciate APS recommendations - continue dilaudid ASBESTOS REMOVER, tizanidine, and acetaminophen. Continue aspirin. Regular diet Therapeutic lovenox for DVT Right groin wet to dry dressings Appreciate ID - continue daptomycin Dispo: pending Code: full AUBREE Worthington 07/05/2017 15:32 Jean Marie Simmons - 07/05/2017 1115 EST Anesthesia Pain Service Subjective: This is a 36 y.o. year old female with a history of IVDU (with multiple associated abscesses), hepatitis C, depression, opioid dependence on suboxone 12-6mg (last dose06/28) cocaine abuse, and MSSA bacteremia who was found to have a right femoral artery pseudoaneurysm on CTA after a right groin wound I&D. She injected cocaine into her right femoral artery and left upper extremity a few says prior to the start of her right leg pain. She presented to the ED at [facility] on 06[place]25 due to a painful lesion inher right groin. She is now POD#6 s/p obturator bypass. Patient was transitioned to PO hydromorphone from ASBESTOS REMOVER and then began to have symptoms of possible withdrawal yesterday. ASBESTOS REMOVER was restarted, and her symptoms have since resolved. She feels like she is able to move around more and her pain is better controlled. She is stating that she is hoping to go home today after she gets an echo. Objective: Vitals: Blood pressure 119/83, pulse 80, temperature 36 ??C (96.8 ??F), temperature source Tympanic,resp. rate 18, height 165.1 cm (65), weight 61.7 kg (136 lb), SpO2 99 %. Scheduled Medications: Current Facility-Administered Medications: acetaminophen (TYLENOL) tablet 1,000 mg oral Q6H alteplase (CATHFLO ACTIVASE) injection 2 mg intercatheter PRN aspirin chewable tablet 81 mg oral DAILY bisacodyl (DULCOLAX) suppository 10 mg rectal Daily PRN DAPTOmycin (CUBICIN) 495 mg in sodium chloride (NS) 0.9 % 50 mL IVPB intravenous Q24H diphenhydrAMINE (BENADRYL) capsule 25 mg oral Q6H PRN docusate sodium (COLACE) capsule 100 mg oral BID PRN enoxaparin (LOVENOX) injection 60 mg subcutaneous Q12H hydrocortisone 1 % cream topical TID PRN HYDROmorphone 1 mg/ml (DILAUDID) ASBESTOS REMOVER syringe, 30 ml intravenous ASBESTOS REMOVER LORazepam (ATIVAN) injection 0.5-1 mg intravenous AT BEDTIME PRN polyethylene glycol 3350 (MIRALAX) packet 17 g oral DAILY senna (SENOKOT) tablet 1 Tab oral QHS sodium chloride 0.9 % flush 3 mL intravenous Q8H tiZANidine (ZANAFLEX) tablet 4 mg oral TID Allergies: No Known Allergies Labs: Lab Results Component Value Date WBC 5.80 07/05/2017 HGB 8.1 (L) 07/05/2017 HCT 25.0 (L) 07/05/2017 MCV 86 07/05/2017 PLT 389 (H) 07/05/2017 No results found for: INR, PROTIME Examination: General: Sitting in bed. Appears comfortable Resp: Breathing nonlabored Analysis and Plan: This is a 36 y.o. year old female with a history of cocaine, IVDU, hep C and depression now POD#6 s/p obturator bypass with new signs of withdrawal symptoms that have resolved and continued pain. 1. Unsure of disposition plan at this point. Would continue ASBESTOS REMOVER until patient is amenable to switching to PO hydromorphone, likely this afternoon or tomorrow. I would not start the buprenorphine at this time until the acute exacerbation of her pain is under control. 2. Continue tizanidine 4mg TID for withdrawal symptoms. This will help with muscle relaxation, anxiety, pain, and sleep. 3. Continue acetaminophen 1000 mg Q6H; Veronica Boswell MD Anesthesia PGY-3 Attestation statement: I saw and examined the patient with the resident/fellow. I agree with the findings and plan of care documented in the resident's/fellow's note. Nya Chun RN - 07/04/2017 1551 EST CM received call from [facility] CM stating they were able to admit patient today. However, patient with fever last night, pending possible YG, other medical issues, so [facility] will decline today's transfer and reassess tomorrow. CM to follow up with team, patient and [facility] tomorrow regarding transfer. Nya Blandon RN [phone] Arthur Torres MD - 07/04/2017 1257 EST Infectious Disease Consultation Follow Up Note Admit Date: 06/28/2017 Hospital Day: LOS: 6 days Date of Service: 07/04/2017 Followup For: MSSA groin abscess, infected pseudoaneurysm s/p bypass and I&D 24 Hour Events: Fever overnight to 39C Subjective: Tells me that she is aware of fever last night and had chills and sweats all of which are resolved today. She blames this on withdrawal from IV pain medications. No pain in the groin or increased redness. No purulent discharge. Additionally denies h/a, cough, SOB, MOBLEY, abdominal pain, NVD,rash, urinary symptoms, new skin lesions. Anti-infectives & Other Pertinent Medications: Day #9 IV vancomycin 1500mg q12h Day #2 rifampin 300mg q12h Vital Signs: BP 99/67 (BP Cuff Location: Right arm, Patient Position: Semi fowlers) Pulse 80 Temp 36.3 ??C (97.3 ??F) (Tympanic) Resp 20 Ht 165.1 cm (65) Wt 61.7 kg (136 lb) SpO2 99% BMI22.63 kg/m2 Exam: Gen: does not look acutely ill Head: NCAT Eyes: sclerae anicteric, conjunctivae non-injected ENT: dry MM, no oral lesions, no posterior OP erythema or exudate CV: RRR no murmur Resp: clear BL Abd: soft, NT, ND, +BS, incision RLQ with david and minimal erythema at staple entry - no dehiscence or discharge Groin: right with incision that has midline opening packed with gauze. Blood present. No purulent discharge. MSK: joint exam without effusion/warmth/erythema/pain with ROM Skin: several scabs and scars extremities related to injection especially RLE Lines: PICC LUE - no erythema, discharge, tenderness Data Review: Laboratory data reviewed. Pertinent results include: Labs: WBC 19.37 post-op 3/2 -> 7.11 3/6 AM -> 15.2 3/6 PM -> 10.56 this morning PMNs increased from 71 -> 96 yesterday then down to 92% this AM Hct down to 25 Plt stable at 320 Cr 0.78 yesterday UA 07/03 0-3 WBC, 11-50 RBC, few squams Microbiology: BC x 2 CV 06/25: no growth Abscess [facility] 06/25: MSSA BC x 1 [facility] 06/28: no growth BC x 2 07/03: pending R femoral artery 06/29: mod PMNs, no bacteria on stain. Cx with few MSSA - S vanc, rif, dapto (I spoketo lab today) HIV Ab negative at [facility] New imaging reviewed: CTA 07/04: patent right external iliac artery to right superficial femoral artery bypass graft. There is a stripped off segment of ring covering adjacent to the graft. Soft tissue edema with reticulationas well as skin thickening in the proximal right thigh, likely primarily related to impaired venous drainage in the setting of right common femoral vein DVT. Post operative changes in the right lower quadrant and right groin. Soft tissue reticulation and subcutaneous gas in this region and also tracking within the abdominal wall is presumed primarily postoperative in nature. Small amount of free intra-abdominal air and free fluid in the deep pelvis presumably postoperative. CXR 07/03: no acute findings Assessment: 1) Fever: no localizing exam findings or history/ROS. Would be considered about PICC use by patient.Could be developing C diff (no diarrhea at this time) or drug fever (rifampin is known to cause but any antibiotic can). Groin looks good and imaging overall ok without new abscess but I wonder about the intra- abdominal free air...was this area entered during bypass? Ok to DC rifampin (see below) 2) Infected pseudoaneurysm with I&D, bypass with prosthetic material: discussed with the Vascular Surgery fellow today. The prosthetic material does not pass through the infected underlying tissue.Would plan on 6-8 weeks of IV antibiotics from the OR with possible oral conversion at that time depending on how she is doing and what inflammatory markers and imaging look like. Abx and labs as below 3) MSSA groin abscess 4) Free air in abdomen: ?does this make sense with the surgery she had or is there another reason for this I.e. Newly perforated viscus - she does not appear ill and denies abdominal pain 5) Leukocytosis: coincides with fever though cause unknown at this time 6) Anemia 7) IVDU: repeat HIV Ab with next draw. I believe they are still using third generation at [facility] and we now have 4th generation Ab/Ag (decreases window) so with recent injection would obtain this. If fevers continue without a source and HIV Ab/Ag is negative would obtain HIV viral load 8) HCV: check HCV viral load with reflex genotype with next lab draw Recommendations: 1) DC vancomycin 2) Check CK, CRP 3) If CK normal range start daptomycin 8mg/kg q24h 4) Ok to DC rifampin as the graft does not pass through infected area 5) Follow-up on blood cultures and follow for any new signs of infection 6) HIV Ab/Ag with next blood draw 7) If fevers continue with no alternate source and HIV Ab/Ag negative get HIV viral load 8) Get HCV viral load with reflex to genotype with next blood draw 9) If fever does not return and she is clinically stable from surgical standpoint it is ok from ID standpoint to DC her without PICC to get PIV and daily daptomycin at [facility] infusion [facility] if the CM isable to arrange this Discussed with primary care team Azeb Coleman DO 07/04/2017 12:58 Arnold Hollingsworth MD - 07/04/2017 0903 EST Anesthesia Pain Service Subjective: This is a 36 y.o. year old female with a history of IVDU (with multiple associated abscesses), hepatitis C, depression, opioid dependence on suboxone 12-6mg (last dose06/28) cocaine abuse, and MSSA bacteremia who was found to have a right femoral artery pseudoaneurysm on CTA after a right groin wound I&D. She injected cocaine into her right femoral artery and left upper extremity a few says prior to the start of her right leg pain. She presented to the ED at [facility] on 06[place]25 due to a painful lesion inher right groin. She is now POD#5 s/p obturator bypass. Patient was transitioned to PO hydromorphone yesterday from ASBESTOS REMOVER. She states that she feels like she is going through withdrawal (which she has had in the past) with nausea, diarrhea, tachycardia, fevers. She also feels that her pain levels have increased as well. She is now threatening to pull out herIV and leave AMA if her pain and symptoms are not better controlled. Objective: Vitals: Blood pressure 102/65, pulse 80, temperature 37 ??C (98.6 ??F), temperature source Tympanic,resp. rate 20, height 165.1 cm (65), weight 61.7 kg (136 lb), SpO2 99 %. Scheduled Medications: Current Facility-Administered Medications: acetaminophen (TYLENOL) tablet 1,000 mg oral Q6H alteplase (CATHFLO ACTIVASE) injection 2 mg intercatheter PRN aspirin chewable tablet 81 mg oral DAILY bisacodyl (DULCOLAX) suppository 10 mg rectal Daily PRN diphenhydrAMINE (BENADRYL) capsule 25 mg oral Q6H PRN docusate sodium (COLACE) capsule 100 mg oral BID PRN electrolyte-A (PLASMALYTE-A) solution intravenous CONTINUOUS enoxaparin (LOVENOX) injection 40 mg subcutaneous QHS hydrocortisone 1 % cream topical TID PRN HYDROmorphone (DILAUDID) tablet 6-8 mg oral Q3H PRN LORazepam (ATIVAN) injection 0.5-1 mg intravenous AT BEDTIME PRN polyethylene glycol 3350 (MIRALAX) packet 17 g oral DAILY rifAMPin (RIFADIN) capsule 300 mg oral BID senna (SENOKOT) tablet 1 Tab oral QHS sodium chloride 0.9 % flush 3 mL intravenous Q8H tiZANidine (ZANAFLEX) tablet 4 mg oral TID vancomycin (VANCOCIN) 1,500 mg in sodium chloride (NS) 0.9 % 500 mL IVPB intravenous Q12H Allergies: No Known Allergies Labs: Lab Results Component Value Date WBC 10.56 07/04/2017 HGB 8.4 (L) 07/04/2017 HCT 25.3 (L) 07/04/2017 MCV 84 07/04/2017 PLT 320 07/04/2017 No results found for: INR, PROTIME Examination: General: Sitting in bed. Was on the commode. Does not appear agitated. Resp: Breathing nonlabored Analysis and Plan: This is a 36 y.o. year old female with a history of cocaine, IVDU, hep C and depression now POD#5 s/p obturator bypass with new signs of withdrawal symptoms and increasing pain. 1. Unsure if the symptoms are of withdrawal as this would typically occur 2-3 days following cessation of buprenorphine (06/28). She did transition off the ASBESTOS REMOVER yesterday and only has only received the lower end of the dose range of hydromorphone. She has been very reasonable during the admission. We have increased PO hydromorphone to 6-8mg every 3hrs prn (ordered). I would not start the buprenorphine at this time until the acute exacerbation of her pain is under control. 2. Add tizanidine 4mg TID for withdrawal symptoms. This will help with muscle relaxation, anxiety, pain, and sleep. (ordered) 3. Continue acetaminophen 1000 mg Q6H; 4. Please do not use oxycodone while on rifampin. When administered together, rifampin increases themetabolism of oxycodone rendering it ineffective. Veronica Boswell MD Anesthesia PGY-3 Attestation statement: I saw and examined the patient with the resident/fellow. I agree with the findings and plan of care documented in the resident's/fellow's note. Arnold Arredondo MD 07/04/2017 9:22 Grzegorz Duong MD - 07/04/2017 0736 EST Vascular Surgery Progress Note POD #5 s/p R EIA to SFA obturator bypass with 6mm PTFE, R groin exploratory and ligation of R femoral pseudoaneurysm 24hr: Febrile to 39 overnight --> CXR (neg), bacterial cultures (pending), UA (negative), EKG negative,trops negative, CTA: DVT right c.femoral; small amt free intra-abd. 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 Says she is going through withdrawal. Threatening to leave ama this am, spoke to patient and calmed her down. Yet patient continues to persist that she will not stay past Sunday and certainly will not stay 6-8 weeks for in hospital IV abx treatment. Passing gas yet noBM. Denies chest pain, SOB. O: BP 102/65 (BP Cuff Location: Right arm, Patient Position: Supine) Pulse 80 Temp 37 ??C (98.6 ??F) (Tympanic) Resp 20 Ht 165.1 cm (65) Wt 61.7 kg (136 lb) SpO2 99% BMI 22.63 kg/m2 I&O By Type - 3 Shifts Including Current In: 2918.3 [P.O.:900; I.V.:18.3; IV Piggyback:2000] Out: 2525 [Urine:2525] Physical Examination: General appearance - alert, well appearing, and in no distress and oriented toperson, place, and time Chest - CTAB Heart - regular rhythm Abdomen - soft, appropriately tender at incision, nondistended, no masses or organomegaly Extremities - palpable DP/PT bilaterally Right groin: Wound vac removed-- right groin wound with minimal erythema, no purulence noted. [place] intact at lateral edge of wound. Left oblique transverse incision clean dry and intact with staplesnoted. CTA 07/04/2017: IMPRESSION: ?? 1. Status post right external iliac artery to superficial femoral ?? artery obturator bypass graft, with patent graft. Of note, there is ?? what appears to be an additional collapsed graft adjacent to the ?? functional graft which may reflect retained graft from the time of ?? surgery; please correlate with the operative notes. ?? 2. Soft tissue edema and reticulation as well as skin thickening in ?? the proximal right thigh, likely primarily related to impaired ?? venous drainage in the setting of right common femoral DVT. ?? 3. Postoperative changes in the right lower quadrant and right groin ?? as above. Soft tissue reticulation and subcutaneous gas in this ?? region and also tracking within the abdominal wall is presumed ?? primarily postoperative in nature, though in the setting of fever ?? could reflect a component of cellulitis. In any case, there is no ?? organizing or drainable superficial soft tissue or abdominal wall ?? fluid collection. ?? 4. Small amount of free intra-abdominal air and free fluid in the ?? deep pelvis, presumably postoperative and without organizing ?? collection. A: 36 yo female with right femoral mycotic pseudoaneurysm 2/2 injections POD 5 from obturator bypassand right groin debridement. Febrile overnight to 39 C with leukocytosis to 15 (now downtrending) , without clear source. DVT noted on CTA yet this has been present for quite some time. Foreign body noted on CT-- these are retained rings from ptfe noted yet adjacent to graft. Possible that fever couldalso be due to withdrawal symptoms as we recently discontinued her ASBESTOS REMOVER. YG today to rule out vegetation. P: 1. Neuro: Pain control with tyleonol every 6 hours, dialaudid 2-8 every 3 hours prn; Tizanidine for withdrawal symptoms. Appreciate aps consult - Patient takes 12 mg daily suboxone will wait to restart until pain is better controlled. Lorazepamand benaryl prn. 2. CV: ASA 81 daily asa. YG today 3. Pulm: incentive spirometry 4. FEN: regular diet 5. GI: DIET REGULAR . Bowel regimen 6. Heme: lovenox DVT ppx qhs 7. ID: continue vancomycin, rifampin, will touch base with ID again regarding fevers, will likely increase rifampin dose if LFTs normal today. Cultures and HIV testing at outside hospital negative to date. F/u blood cultures from yesterday 8. Integuement: david c/d/i, d/c wound vac-- patient prefers daily wet to dry dressings 9. Disposition: - discharge back to [facility] on IV antibiotics and PICC, for a course of a approx 6- 8 weeks. If this is not amenable for patient, may need IV daptomycin daily instead. -Mia Mcnamara case maker at [facility] -patient will follow up with Dr. Earnest Garcia in [facility] [phone] for daily suboxone clinic visits (rifampin will affect necessary dose) -patient needs to be on asa for life -continue pt/ot consult Blanquita Soto MD 07/04/2017 7:36 Attestation statement: I saw and examined the patient with the resident/fellow. I agree with the findings and plan of care documented in the resident's/fellow's note. YG pending. Regular diet. Cont abx per ID recs. W to D dressings. Sagar Nelson MD - 07/03/2017 2201 EST Brief ESS update: Subj: Called to bedside as patient was febrile to 39 with HR 120, BP 113/70. Patient stated she felt warm and asked for temp check. On arrival to bedside patient found to be pale, but NAD, AAOX3. Complainingof some leg and lower abdominal pain, not much worse than prior, but that she felt very nauseous andlike diarrhea was coming on. She notes this feels similar to when she has withdrawn in the past. Obj: BP 113/71 (BP Cuff Location: Right arm, Patient Position: Semi fowlers) Pulse 80 Temp (!) 39 ??C(102.2 ??F) (Tympanic) Comment: took temp at pt's request rn aware Resp 22 Ht 165.1 cm (65) Wt 61.7 kg (136 lb) SpO2 98% BMI 22.63 kg/m2 General appearance: alert, cooperative, no distress, pale Lungs: clear to auscultation bilaterally Heart: tachycardic but regular Abdomen: soft, ttp over RLQ incision, no erythema or drainage david c/d/i. No rebound, no gaurding. Extremities: extremities warm, atraumatic, no cyanosis or edema positive pulses bilat RLE incision c/d/i with david. Vac to groin with s/s fluid in container, no pus or cloudy fluid noted, some scant erythema of medial skin, stable from prior exams. Pulses: 2+ and symmetric A/P POD 4 s/p R EIA to SFA obturator bypass for infected groin with prior substance abuse. Concern for new fevers and tachycardia, patient subjectively feels similar to w/d and recent decrease in narcotic dosage. Could be related to infection vs bleeding vs w/d. 1x zofran for nausea CBC/diff, concern for ?bleed EKG negative, CXR negative, UA, negative F/u trop and lytes, replete prn, will trend if positive trop. F/u blood cultures x 2 Continue vanc IV, rifampin P.O. For now, may want to discuss with ID if persistent fevers Continue to monitor, serial abdominal and RLE/groin exams Above discussed with Dr. Arnold Mills, Vascular fellow contact center director. Sagar Mckeon MD 07/03/2017 22:03 [id number] 0:07 Update: WBC/Hgb/Hct/Plts: 15.25/8.9/27.0/350 (07/03 2058) Na/K/Cl/CO2: 136/4.2/100/26 (07/03 2058) BUN/Cr/glu/ALT/AST/amyl/lip: 10/0.78/--/--/--/--/-- (07/03 2058) WBC up from 11, still febrile and tachy, plan for CTA abdomen pelvis to include graft, at least to knee. Hct stable, mag low, repleted Vj Escobar MD - 07/03/2017 1342 EST Vascular Surgery Progress Note POD #4 s/p R EIA to SFA obturator bypass with 6mm PTFE, R groin exploratory and ligation of R femoral pseudoaneurysm 24hr: naeo Left PICC placed after right side attempted Ketamine gtt weaned off Rifampin started per ID recs Wound vac placed in right groin S: Doing well. Pain controlled, passing gas. Denies chest pain, SOB, fevers/chills. O: BP 108/68 (BP Cuff Location: Right arm, Patient Position: Semi fowlers) Temp 36.9 ??C (98.4 ??F) (Tympanic) Resp 16 Ht 165.1 cm (65) Wt 61.7 kg (136 lb) SpO2 99% BMI 22.63 kg/m2 I&O By Type - 3 Shifts Including Current In: 625 [P.O.:625] Out: 1300 [Urine:1300] Physical Examination: General appearance - alert, well appearing, and in no distress and oriented toperson, place, and time Chest - CTAB Heart - regular rhythm Abdomen - soft, appropriately tender at incision, nondistended, no masses or organomegaly Extremities - palpable DP/PT bilaterally Right groin: wound vac intact, minimal serosanguinous output A: 36 yo female with right femoral mycotic pseudoaneurysm 2/2 injections POD 4 from obturator bypassand right groin debridement. P: 1. Neuro: Pain control with ASBESTOS REMOVER, valium prn, tyleonol every 6 hours. 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 Lorazepam and benaryl prn. PO dilaudid added to minimizeIV needs. 2. CV: ASA 81 daily asa 3. Pulm: incentive spirometry 4. FEN: regular diet 5. GI: DIET REGULAR . Bowel regimen 6. Heme: lovenox DVT ppx qhs 7. ID: continue vancomycin, rifampin, appreciate ID recs. Note rifampin will interact with suboxone.Cultures and HIV testing at outside hospital negative to date. 8. Integuement: david c/d/i, wound vac in right groin wound. 9. Disposition: - dishcharge back to [facility] on IV antibiotics and PICC - likely in the next day or two -Mia Mcnamara case maker at [facility] -patient will follow up with Dr. Earnest Garcia in [facility] [phone] for daily suboxone clinic visits (rifampin will affect necessary dose) -patient needs to be on asa for life -continue pt/ot consult Vj Christina MD 07/03/2017 13:42 Valerie Dorman OT - 07/03/2017 1220 EST [facility] Rehabilitation Therapy Acute Therapies [facility] [place] Occupational Therapy Initial Evaluation Note Date of Service: 07/03/2017 Reason for Referral: Evaluate and treat Precautions: Activity as tolerated and Weight bearing to tolerance SUBJECTIVE: Expressed eagerness to return home to be with her daughter so her could return to work. Pain: Location: R thigh Intensity: 2-3/10 Present Frequency: Persistent Quality: Did not state Aggravating factors: Movement Alleviating factors: Rest OBJECTIVE: Patient Profile: Lindsay Jena Baptiste is a R hand dominant 36 y.o. female admitted on 06/28/2017 secondary to [facility] MICOTIC PSEUDOANEURYSM I72.9 Aneurysm of unspecified site-I72.9[ICD-10-CM] The patient lives at [address] [place] [address] History of Present Illness/Injury: Per vascular surgery H&P by Dr. Ramos dated 06/28/2017: Chief Complaint: R femoral PSA ?? HPI: (Location, Quality, Severity, Duration, Timing, Context, Modifying Factors, Associated Signs and Symptoms) 36 y.o. F who presents as a transfer after having an I&D of right groin wound (POD #1) and notedon CTA to have a R femoral PSA. She has a PMHx that is significant for opioid dependence for which she is on suboxone and cocaine abuse (IV and intranasal). She states that she used cocaine a few days ago but has not injected drugs in many years. Procedures: Per brief op-note dated 06/29/2017: Preop Dx: Infected R Femoral PSA ?? Postop Dx: Same ?? Anesthesia: General ?? Procedure: 1. R EIA-SFA Obturator Bypass using 6mm PTFE 2. Exploration of R Femoral Artery with Ligation of R Femoral PSA ?? Attending Surgeon: Dr. Doe Li ?? Salvage Engineering Technician: Dr. Gene Hopper Living Environment/Home Set-up: Pt. lives with her and 5 yo daughter in a single level apartment. There are 0 stairs to enter. Bathroom set-up includes a tub and shower combo. Caregiver Support: Part-time assist from ; Reported she has a neighbor who could likely provide some assist as well. Equipment Available: None Prior Level of Function: Activities of daily living: Independent Instrumental activities of daily living: Independent Work/Leisure: Unemployed; Cares for 5 yo daughter when she is not at kindergarten. Mobility: Independent Medical/Surgical History: Current: Patient Active Problem List Diagnosis ??? Pseudoaneurysm of femoral artery (CMS-HCC) Past: Past Medical History: Diagnosis Date ??? Bacteremia due to Staphylococcus aureus ??? Cocaine abuse ??? Hepatitis C antibody positive in blood ??? Iron deficiency anemia ??? Moderate opioid use disorder (CMS-HCC) ??? Skin abscess Past Surgical History: Procedure Laterality Date ??? ABDOMINAL EXPLORATION SURGERY ??? ECTOPIC SURGERY Medications: Medications reviewed. Body Functions and Performance Skills: Cardiovascular/Respiratory Systems Function: Vital Signs: Position Heart Rate (bpm) Blood Pressure (mmHG) Respiratory Rate (breaths/min) Oxygen Saturation SPO2 Liters of Oxygen Pre: Supine 79 90/60 100 Room air During: Sitting 108/74 Room air Left in care of [employer]IV[employer] for planned bath. Mental Functions: Specific mental functions: Pleasant and cooperative. Able to follow multi-step verbal instructions to participate. Engaged appropriately in conversation with therapist. Attention span grossly intact. Global mental functions: Awake and alert. Oriented to self, place, date and situation. Sensory Functions: Touch: Reported diminished sensation in L UE, more diminished distally than proximally, due to priorinjury ~7 years ago. Otherwise denied numbness or tingling in UE/LE's. Vision: Grossly intact to participate in evaluation. No new changes reported. Hearing: Grossly intact to conversational tones. Neuro musculoskeletal and Movement Related Functions: Range of motion: B UE AROM grossly WNL except L hand. PIP and DIP joints of digits 2-5 in flexed position on L hand with minimal ability to passively extend. Pt. reported this is due to a previous injury she sustained ~7 years ago. She reported undergoing surgery to try to correct it but stated it actually made it worse. Palmar skin was intact and did not appear irritated. Pt. reported she typically keeps her fingernails cut short to protect the skin. Therapist also suggested placing a rolled wash cloth in palm prn to protect palm and skin. Strength: B UE strength grossly >3/5 as demonstrated during functional activity. R asic design engineer 5/5. L asic design engineer impaired as described above. Skin and Related Structure Functions: Per pt. story section of chart: PICC / CVC / PIV Catheter ? PICC Single Lumen 07/02/17 Basilic Lower SVC Valved Power Inject less than 1 day ? Drain / Airway ? Wound Vac Right other 1 day ? Wound ? Full Thickness 06/28/17 Surgical Right Groin 5 days ? Full Thickness 06/29/17 Right;Upper;Inner Leg 4 days ? Full Thickness 06/29/17 Surgical Right Abdomen 4 days ? Full Thickness 06/29/17 Surgical Right Groin 4 days Areas of Occupation and Performance Skills: Basic Activities of Daily Living: Feeding: Independent. Grooming: Independent after set-up A provided to retrieve necessary items completing tasks in seatedposition. Upper Body Dressing: Anticipate independent after set-up A provided to retrieve necessary items completing tasks in seated position. Lower Body Dressing: Able to don L asic design engineer sock without difficulty after therapist provided set-up A toretrieve sock. Required assist to don R asic design engineer sock due to increased R thigh pain with movement and limited ability to bend at hip and knee to reach R foot. Toilet Transfer: Sit<>stand to/from bedside commode modified I with use of B handrails. Deniedneed to void once on bedside commode. Functional Mobility: Supine>sit: Independent. Sit>supine: Independent. Sitting balance: Independent static sitting balance with intermittent UE support. Sit>stand: Modified I to stand from bed and bedside commode with use of UE's. Stand>sit: Modified I to sit on bed and bedside commode with use of UE's. Bed<>bedside commode: Took steps to transfer between bed and bedside commode with supervision,verbal cueing to promote greater awareness of wound vac line and assist prn to manage line. Decreased weightbearing through R LE noted at times. Informed Consent: The patient consented to the occupational therapy evaluation. The patient agrees to and understands the occupational therapy treatment plan and goals. Interventions completed today: Occupational therapy today at 9:41. Total treatment time: 28 minutes. Timed code treatment minutes: 0 Intervention included: No interventions today. Patient/Family Education: Topic: Role of OT Learner: patient Method: verbal Barriers to Learning: none noted Outcome: verbalized understanding Team Communication: Spoke with RN prior to evaluation re: pt. status. ASSESSMENT: Ms. Jean Baptiste is a 36 yo female transferred to [facility] on 06/28/2017 due to findings of R femoral pseudoaneurysm after undergoing I&D of R groin wound. She is s/p R EIA-SFA obturator bypass performed on 06/29/2017. During initial OT evaluation Ms. Jean Baptiste presented with deficits including R thigh pain at surgical site, decreased weightbearing through R LE at times with activity in standing and decreased tolerance for activity in standing due to R LE pain impacting her ability to perform ADLs and IADLs. Prior to hospitalization Ms. Jean Baptiste was living at home with her and 5 yo daughter and was reportedly functionally independent. She currently presents below her functional baseline and would benefit from skilled acute OT intervention to address deficits and maximize functional outcome during hospital stay. Per chart review including CM notes, pt. needs 6-8 weeks IV antibiotics. Plan is reportedly to transfer back to [facility] to complete antibiotics before returning home. Anticipate pt. returning home with family once cleared medically. GOALS: Short Term Goals: N/A Countersinker Goals: 2 weeks ?? Will perform all functional transfers to/from varying surfaces for ADLs modified I to independent. ?? Will perform LB self-care/dressing tasks modified I using adaptive equipment prn. ?? Will perform toileting tasks modified I to independent. ?? Will tolerate standing at sink to perform basic grooming tasks independently. ?? Will be independent with strategies/recommendations to promote greater independence, ease and/or safety performing ADLs/IADLs. PLAN: Intervention: Occupational therapy treatment for: Frequency: daily for 1-3 times per week as determined by the patient's medical stability, tolerance to activity and progression of functional activities Intensity: 15-30 minutes per session. Interventions include: Occupation Based Activity - Basic Activities of Daily Living Occupation Based Activity - Instrumental Activities of Daily Living Patient/Family Education Further Data: Continue to assess ADLs, IADLs, functional transfers/mobility. Patient/Family Education: Adapted ADLs Adaptive Equipment Discharge Planning Precautions Role of OT Recommended Discharge Destination: Per chart review including CM notes, pt. needs 6-8 weeks IV antibiotics. Plan is reportedly to transfer back to [facility] to [place] before returning home. Anticipate pt. returning home with family once cleared medically. Recommended Discharge Services: May benefit from occupational therapy at DC location pending progression Recommended Discharge Equipment: To be determined Pager: [phone] Valerie Flores OT, 07/03/2017, 12:20 Gerard Johns, PT - 07/03/2017 1213 EST [facility] Rehabilitation Therapy Acute Therapies [facility] Physical Therapy Encounter Note Date of Service: 07/03/2017 Subjective/Objective Subjective I'm doing well, I've just been hooked up to a lot of stuff. Objective Intervention completed today: Time: 1035 Total treatment time: 25 minutes. Timed code treatment minutes: 25 Vital signs have been stable with interventions and were not monitored. Gait Speed - Distance (M): 6.1 Gait Speed - Time (sec): 23.93 Gait Speed - Velocity (meters/sec): 0.25 meters/sec This test is a measure of walking speed over an established distance. Age/gender normative values (Vitaly, 2011) Age Gender 95% CI meters/second 20-29 Male 1.21-1.47 20-29 Female 1.08-1.49 30-39 Male 1.31-1.53 30-39 Female 1.25-1.41 40-49 Male 1.27-1.47 40-49 Female 1.22-1.42 50-59 Male 1.12-1.49 50-59 Female 1.10-1.55 60-69 Male 1.03-1.59 60-69 Female 0.97-1.45 70-79 Male 0.95-1.41 70-79 Female 0.83-1.50 80-89 Male 0.61-1.22 80-89 Female 0.56-1.17 Therapeutic Activity (2): 1. Bed Mobility: Independent 2. Transfers: 1. Supine to sit: Independent 2. Sit to stand from bed with RW: modified independent 3. Stand to sit at recliner with RW: modified independent 3. Ambulation: Ambulated ~100 feet with RW and assist to carry wound vac, supervision, decreased stance time on right LE with right knee flexion through entire gait cycle and right foot ER. Slow speed with increasing pain as patient increased ambulation distance. Patient/Family Education: Topic: Assistive device/technique Gait Role of therapy Safety Transfers Learner: patient Method: verbal Barriers to Learning: none noted Outcome: needs practice, verbalized understanding and returned demonstration Team Communication: Communicated with RN re:pt status. Assessment/Plan Assessment Patient's mobility has significantly improved with improved pain and some tissue healing. Anticipatefurther gains with healing time and ambulation on the floor with nursing staff. Patient does not require regular Physical Therapy intervention to progress mobility and so placing patient on hold until next week. Will follow-up in ~1 week, please call department if any needs arise prior to that. Plan On hold until next week Recommended Discharge Destination: Home when medically appropriate, until then per medical team Recommended Discharge Services: To be determined Recommended Equipment Needs: Rolling walker Other recommendations: No other consults recommended at this time Primary Therapist: Pager: [phone] Gerard Louis PT 07/03/2017 12:18 Nya Chun RN - 07/03/2017 1159 EST Initial Case Management/Social Work Assessment and Discharge Plan/Readmission Risk Assessment REASON FOR ADMISSION: Patient with history of IVDU (with multiple associated abscesses), hepatitis C, depression, opioid dependence on suboxone 12-6mg (last dose06/28) cocaine abuse, and MSSA bacteremia who was found to have a right femoral artery pseudoaneurysm on CTA after a right groin wound I&D.She injected cocaine into her right femoral artery and left upper extremity a few says prior to the start of her right leg pain. She presented to the ED at [facility] on 06/25 due to a painful lesion in her right groin. She is now POD#4 s/p obturator bypass. Patient understands reason for admission: Yes PATIENT CONTACT INFO VERIFIED: Yes: Stone Jean Baptiste (Spouse) [phone] (H) PATIENT ADDRESS VERIFIED: Yes LIVING ARRANGEMENTS AND ACCESSIBILITY ISSUES: Living Arrangements: Children (5 yo dtr), Spouse / significant other Levels: 1 Stairs to enter: 0 Handicap access: None Bathroom located on bedroom level?: Yes What in home social supports are available to the patient? Spouse / significant other Is 24/7 care available? No ADVANCED DIRECTIVES, POA &/or COLST IN PLACE: Healthcare Directive: No, patient does not have advance directive for healthcare treatment Information Provided on Healthcare Directives: No Information on Healthcare Directives Requested: No DIRECTIVES FOR FINANCES: NA TRANSPORTATION: Transportation: Family CULTURAL, PENTECOSTALISM and/or LANGUAGE factors affecting health care/discharge planning: Spiritual/Cultural Requests: None Any factors affecting health care/discharge planning?: Yes (add in comments) Insurance in Place: Yes Medical Insurance: Yes Type of insurance: Medicaid Medicaid Type: Community Referred to patient financial services: No DISCHARGE RISK ASSESSMENT: History of mental illness;Polypharmacy, > 7 medications;Acute/chronic wound or pressure ulcer;Decreased adherence to treatment plan Total # selected above: Score of 2 - 4: This patient is at MODERATE RISK for re-hospitalization Tentative plan to address the risk of re-hospitalization for those at HIGH MODERATE RISK: Early inpatient rehab therapy or other consultation(s);Other: RAPT TOOL: Age: 50-65 Gender: Female Ambulation distance: 2 or more blocks (600ft) Gait device: None Community Services: Home health, [facility], [facility]-none of one time a week Will you live with someone who will care for you?: Yes RAPT Tool Score: 11 Patient expects to be discharged to: Ongoing hospitalization for IVAB SBIRT: Patient with known drug abuse, Suboxone provider is Dr. Cali at [facility] FUNCTIONAL STATUS: Activities patient requires assistance: None Assistive Device: None COMMUNITY RESOURCES/SUPPORTS: Primary Care Provider: Suzie Taylor PCP Verified: Yes Specialists: Other Type of Home Health Services: None DME Provider: ben Pharmacy: No Pharmacies Listed Home Health: Other: Suboxone clinic at [facility] TRANSITION PLAN: Patient requiring another 6-8 weeks of IVAB, lives in [facility]. CM contacted [facility] yesterday to arrange for transfer back there. Spoke to Jaja GUERRERO ([phone]); informed her of IVAB plan and need for wound vac. They will discuss with hospitalist and need to determine bed availability. Left another m essage for CM today as well. Patient now with PICC and transitioning to oral pain meds. Discuss plan with patient; she is in agreement with plan to transfer back to [facility]. However, she did express that she did not feel that she could spend another few weeks in the hospital. Report to team,recommending that they speak to patient about long-term plan and need to remain hospitalized for duration of IVAB. Awaiting a call back from [facility]. Nya Blandon, RN [phone] Nya Blandon RN 07/03/2017 12:02 Message from [facility] case maker: They will accept patient back once they have a bed available, probably in the next couple of days. Arnold Hollingsworth MD - 07/03/2017 0917 EST Anesthesia Pain Service Subjective: This is a 36 y.o. year old female with a history of IVDU (with multiple associated abscesses), hepatitis C, depression, opioid dependence on suboxone 12-6mg (last dose06/28) cocaine abuse, and MSSA bacteremia who was found to have a right femoral artery pseudoaneurysm on CTA after a right groin wound I&D. She injected cocaine into her right femoral artery and left upper extremity a few says prior to the start of her right leg pain. She presented to the ED at [facility] on 06/25 due to a painful lesion inher right groin. She is now POD#4 s/p obturator bypass. Ketamine was discontinued yesterday. Patient states her pain is well controlled this AM, 10 with the hydromorphone ASBESTOS REMOVER. She has been able to sleep with lorazepam. She is on board with transitioning to oral pain medications this morning. ?? Pain Level 4-5/10 Hydromorphone: 40 mg IV in 24H Objective: Vitals: Blood pressure 104/65, temperature 36.1 ??C (97 ??F), temperature source Tympanic, resp. rate 16, height 165.1 cm (65), weight 61.7 kg (136 lb), SpO2 99 %. Scheduled Medications: Current Facility-Administered Medications: acetaminophen (TYLENOL) tablet 1,000 mg oral Q6H alteplase (CATHFLO ACTIVASE) injection 2 mg intercatheter PRN aspirin chewable tablet 81 mg oral DAILY bisacodyl (DULCOLAX) suppository 10 mg rectal Daily PRN diphenhydrAMINE (BENADRYL) capsule 25 mg oral Q6H PRN docusate sodium (COLACE) capsule 100 mg oral BID PRN enoxaparin (LOVENOX) injection 40 mg subcutaneous QHS hydrocortisone 1 % cream topical TID PRN HYDROmorphone (DILAUDID) tablet 2-4 mg oral Q4H PRN HYDROmorphone 1 mg/ml (DILAUDID) ASBESTOS REMOVER syringe, 30 ml intravenous ASBESTOS REMOVER LORazepam (ATIVAN) injection 0.5-1 mg intravenous AT BEDTIME PRN rifAMPin (RIFADIN) capsule 300 mg oral BID sodium chloride 0.9 % flush 3 mL intravenous Q8H vancomycin (VANCOCIN) 1,500 mg in sodium chloride (NS) 0.9 % 500 mL IVPB intravenous Q12H Allergies: No Known Allergies Labs: Lab Results Component Value Date WBC 7.11 07/03/2017 HGB 7.8 (L) 07/03/2017 HCT 24.3 (L) 07/03/2017 MCV 85 07/03/2017 PLT 324 07/03/2017 No results found for: INR, PROTIME Examination: General: Resting comfortably NAD Resp: Breathing nonlabored Analysis and Plan: This is a 36 y.o. year old female with a history of cocaine, IVDU, hep C and depression now POD#4 s/p obturator bypass. 1. Transition hydromorphone ASBESTOS REMOVER to 4-6mg PO hydromorphone every 3hrs prn 2. Continue acetaminophen 1000 mg Q6H; 3. Caution any use of oxycodone while on rifampin. When administered together, rifampin increases the metabolism of oxycodone rendering it ineffective. Veronica Boswell MD Anesthesia PGY-3 Attestation statement: I saw and examined the patient with the resident/fellow. I agree with the findings and plan of care documented in the resident's/fellow's note. Arnold Arredondo MD 07/04/2017 6:41 Joanne Benitez RPH - 07/02/2017 2001 EST Pharmacy Note: Vancomycin Monitoring Lindsay Jean Baptiste is a 36 y.o. female receiving Vancomycin 1500 mg IV q 12 hrs for the treatment of right groin abscess Other antibiotics include: rifampin 300 mg twice daily 24 hour vitals and labs: Temp (24hrs), Av.4 ??C (97.6 ??F), Min:35.9 ??C (96.6 ??F), Max:36.8 ??C (98.2 ??F) Recent Labs 06/30/17 0149 07/01/17 0555 07/02/17 0628 CREATININE 0.73 0.68 0.70 BUN 4* 4* 6* Lab Results Component Value Date WBC 9.38 07/02/2017 Vancomycin steady state trough level drawn 07/02/2017 @ 1750 = 12.8 mcg/ml. Assessment and Plan: 1). Vancomycin level is thearapeutic (reference range 12-20 mcg/ml). Continue current dosing. 2). Will obtain another level within a week, pharmacy to order. 3). Continue to monitor renal function, CBC, In/Out, Tm 4). Discussed dosing regimen with Dr Mckeon. Pharmacy will continue to follow Joanne Corado RP Pager #[phone] Arthur Torres MD - 07/02/2017 1705 EST Brief ID Note: Attempted to see patient but she was off the floor. Being treated for MSSA abscess and related infected R femoral pseudoaneurysm now s/p EIA to SFA obturator bypass with PTFE. On vancomycin because history of neutropenia with cefazolin. Suggest continuation of cefazolin + addition of rifampin. If LFTs normal start at 300mg BID. Repeat LFTs in 1 week (07/09). If remain normal/not significantly increased increase the rifampin to 300mg q8h. If she transfers to [facility] can see ID (Dr Gorman or Dr Garnett) while admitted there. Azeb Coleman DO Zoya Cohen RN - 07/02/2017 1545 EST Situation: Pt in IR for PICC line under Fluoro procedure. Patient arrived to IR at1 535 from [facility] . ID'd by name and , reviewed allergies and current medications. Background: This is a 36 y.o. year old female with a history of IVDU (with multiple associated abscesses), hepatitis C, depression, opioid dependence on suboxone 12-6mg (last dose06/28) cocaine abuse, and MSSA bacteremia who was found to have a right femoral artery pseudoaneurysm on CTA after a right groin wound I&D. She injected cocaine into her right femoral artery and left upper extremity a few says prior to the start of her right leg pain. She presented to the ED at [facility] on 06/25 due to a painful lesion inher right groin. She is now POD#3 s/p obturator bypass. Assessment: Pt has ketamine and dilaudid infusing. Needs a PICC line for antibiotics. With assist of 4 patient moved to angio 22 table. Dilaudid ASBESTOS REMOVER ran out, nurse came down [phone]. Said she would return with Dilaudid, needs to get it from pharmacy first. Dr Vazquez in to U/s RUE Right upper arm prepped in the usual sterile fashion with chloraprep , by [facility] in accordance with electrical helper recommendation. Sabas elaine agreed upon by all parties amr/vlp/rl for PICC line with U/S fluoro guidance. U/s utilized for access to right upper arm vein REq did not specify SL or DL thus provider selected 4fr SL PICC line 1615 nurse came to refill dilaudid ASBESTOS REMOVER. 1644 aborted trying on right side. Dr Vazquez looked with U/s on LUE, stated there where small vein there to try. Moved to Left UE. PRepped in usual sterile fashion in accordance with manufacture recommendation with chloraprep by TWP at 1655. Sabas elaine reviewed with RL,TWP,VLP U/s used for access to vein, verified with fluoro. Selected vessel;.basilic Prepped with .chloraprep Tip of catheter .lower SVC Trim length.44cm External length. 0cmSecured with stat lock, biopatch in placed covered with dsd Called and spoke with Boby STERN for report. Pt moved back to bed with assist . RLE wound vac in place right leg on 3 pillows. Recommendation Routine PICC line care. Arnold Hollingsworth MD - 07/02/2017 8636 EST Anesthesia Pain Service Subjective: This is a 36 y.o. year old female with a history of IVDU (with multiple associated abscesses), hepatitis C, depression, opioid dependence on suboxone 12-6mg (last dose06/28) cocaine abuse, and MSSA bacteremia who was found to have a right femoral artery pseudoaneurysm on CTA after a right groin wound I&D. She injected cocaine into her right femoral artery and left upper extremity a few says prior to the start of her right leg pain. She presented to the ED at [facility] on 06/25 due to a painful lesion inher right groin. She is now POD#3 s/p obturator bypass. Patient states her pain is well controlled this AM (4-5/10 currently, 8-9/10 preoperatively). Deniesnightmares, hallucinations, dysphoria with ketamine gtt. She did fall asleep from the lorazepam and not utilize the ASBESTOS REMOVER resulting in worse pain. The patient states it is improving. ?? Pain Level 4-5/10 Hydromorphone: 28 mg IV in 24H Objective: Vitals: Blood pressure 113/79, temperature 35.9 ??C (96.6 ??F), temperature source Tympanic, resp. rate 18, height 165.1 cm (65), weight 61.7 kg (136 lb), SpO2 100 %. Scheduled Medications: Current Facility-Administered Medications: acetaminophen (TYLENOL) tablet 1,000 mg oral Q6H aspirin chewable tablet 81 mg oral DAILY bisacodyl (DULCOLAX) suppository 10 mg rectal Daily PRN diphenhydrAMINE (BENADRYL) capsule 25 mg oral Q6H PRN docusate sodium (COLACE) capsule 100 mg oral BID PRN enoxaparin (LOVENOX) injection 40 mg subcutaneous QHS hydrocortisone 1 % cream topical TID PRN HYDROmorphone 1 mg/ml (DILAUDID) ASBESTOS REMOVER syringe, 30 ml intravenous ASBESTOS REMOVER ketAMINE (KETALAR) 500mg in NaCl 0.9% 50ml syringe intravenous CONTINUOUS LORazepam (ATIVAN) injection 0.5-1 mg intravenous AT BEDTIME PRN sodium chloride 0.9 % flush 3 mL intravenous Q8H vancomycin (VANCOCIN) 1,500 mg in sodium chloride (NS) 0.9 % 500 mL IVPB intravenous Q12H Allergies: No Known Allergies Labs: Lab Results Component Value Date WBC 9.38 07/02/2017 HGB 8.5 (L) 07/02/2017 HCT 25.9 (L) 07/02/2017 MCV 85 07/02/2017 PLT 250 07/02/2017 No results found for: INR, PROTIME Examination: General: Resting comfortably NAD Resp: Breathing nonlabored Analysis and Plan: This is a 36 y.o. year old female with a history of cocaine, IVDU, hep C and depression now POD#3 s/p obturator bypass. 1. Continue hydromorphone ASBESTOS REMOVER 0.5 mg per demand 10 minute lock out no basal rate 3 mg hourly limit. Will transition to oral pain medications tomorrow; 2. Will wean ketamine infusion today. We will decrease it to 10 mg/hr IV and potentially stop in theafternoon; 3. Continue acetaminophen 1000 mg Q6H; Attestation: I saw and examined the patient with the resident (Dr Boswell) 07/02/2017. I agree with the resident's/fellow's findings and plans as documented. Arnold Arredondo MD 07/02/2017 8:45 Grzegorz Duong MD - 07/02/2017 7066 EST Vascular Surgery Progress Note POD #3 s/p R EIA to SFA obturator bypass with 6mm PTFE, R groin exploratory and ligation of R femoral pseudoaneurysm 24hr: naeo S: Doing well. Pain is well controlled. Lindsay Kadie Jean Baptiste otherwise denies chest pain, SOB. Pulledout ng tube over the weekend but deneis n/v. Not passing BM yet. Denies f/c. O: BP 113/79 (BP Cuff Location: Right arm, Patient Position: Semi fowlers) Temp 35.9 ??C (96.6 ??F) (Tympanic) Resp 18 Ht 165.1 cm (65) Wt 61.7 kg (136 lb) SpO2 100% BMI 22.63 kg/m2 I&O By Type - 3 Shifts Including Current In: 1049.3 [I.V.:19.3; IV Piggyback:1030] Out: 1200 [Urine:1200] Physical Examination: General appearance - alert, well appearing, and in no distress and oriented toperson, place, and time Chest - CTAB Heart - regular rhythm Abdomen - soft, nontender, nondistended, no masses or organomegaly Extremities -Right 1+ DP/AT, sensation intact; Left DP+2, PT Right groin: no purulence noted on dressing change, dressing changed this am. A: 36 yo female with right femoral mycotic pseudoaneurysm 2/2 injections POD 3 from obturator bypassand right groin debridement P: 1. Neuro: Pain control with ketamine infusion and ASBESTOS REMOVER, valium prn, tyleonol every 6 hours, ppreciateAPS help to wean off ketamine today. 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 Lorazepam and benaryl prn 2. CV: ASA 81 daily asa 3. Pulm: incentive spirometry 4. FEN: clear liquid diet, saline lock. 5. GI: DIET NPO TIME SPECIFIED Except for: Ice chips . Ducolax 6. Heme: lovenox DVT ppx qhs 7. ID: place picc line today. continue vancomycin, appreciate ID recs will clarify duration with ID.(consider adding rifampin yet will interact with suboxone). Will follow up cultures and HIV testing at outside hospital. 8. Integuement: right groin packed with wet gauze, covered with dry gauze, paper tape, will considertransitioning to wound vac placement today as patient is rather intolerant of dressing changes 9. Disposition: - dishcharge back to [facility], will likely need d/c with IV antibiotics, Picc line in place, clarifying plan with ID today. -Mia Mcnamara case maker at [facility] -patient will follow up with Dr. Earnest Garcia in [facility] [phone] for daily suboxone clinic visits -patient needs to be on asa for life -continue pt/ot consult Blanquita Soto MD 07/02/2017 7:52 [facility] Staff Attestation statement: I saw and examined the patient with the resident/fellow. I agree with the findings and plan of care documented in the resident's/fellow's note. Vac to right groin. Advance diet. IV abx. Gerard Johns, PT - 07/01/2017 0961 EST Rehabilitation Therapies [facility] Physical Therapy Contact Note Date of Service: 07/01/2017 Attempted to see patient for Physical Therapy evaluation this morning, however, per RN patient is insignificant pain as she did not use ASBESTOS REMOVER overnight as she slept. Working on getting pain under control and asked that we return after blood transfusion finishing around 1 pm. Will return as schedule allows. Pager: [phone] Gerard Louis, PT 07/01/2017 9:36 Gerard Johns, PT - 07/01/2017 0739 EST [facility] Rehabilitation Therapy Acute Therapies [facility] Initial Evaluation Note Date of Service: 07/01/2017 Reason for Referral: Evaluate and treat Precautions: Activity as tolerated and Weight bearing to tolerance SUBJECTIVE: I feel like an old lady with this walker but I know I need it to walk. Pain: Location: right LE/lower abdomen Intensity: 7/10 (at present), NE/10 (at best), Worse with weight bearing Frequency: constant Quality: NE Aggravating factors: mobility Alleviating factors: Rest, meds OBJECTIVE: PatientProfile: Patient is a 36 y.o. female admitted on 06/28/2017 secondary to [facility] MICOTIC PSEUDOANEURYSM I72.9 Aneurysm of unspecified site-I72.9[ICD-10-CM] The patient lives at [address] [place] [address] HPI per MD note dated 06/28/17: 36 y.o. F who presents as a transfer after having an I&D of rightgroin wound (POD #1) and noted on CTA to have a R femoral PSA. She has a PMHx that is significant for opioid dependence for which she is on suboxone and cocaine abuse (IV and intranasal). She states that she used cocaine a few days ago but has not injected drugs in many years. Home environment Lives:with family, and 5-year old daughter Caregiver Support: Part-time assist Equipment Available: None Home Environment: apartment Home Layout: One story with no steps to enter Prior Level of Function: Independent Services prior to admission: None Work/Leisure: Need to clarify Medical/Surgical History: Current: Patient Active Problem List Diagnosis ??? Pseudoaneurysm of femoral artery (CMS-HCC) Past: Past Medical History: Diagnosis Date ??? Bacteremia due to Staphylococcus aureus ??? Cocaine abuse ??? Hepatitis C antibody positive in blood ??? Iron deficiency anemia ??? Moderate opioid use disorder (CMS-HCC) ??? Skin abscess Past Surgical History: Procedure Laterality Date ??? ABDOMINAL EXPLORATION SURGERY ??? ECTOPIC SURGERY Medications: Medications reviewed Arousal, Attention, and Cognition: Orientation: Alert. Oriented to person, place, and time. Patient appropriate in conversation. Cardiopulmonary: Vital signs were monitored after ambulation (BP:109/86, HR:86, SpO2:97% RA) and pt was stable throughout physical therapy session with no symptoms of hypotension. Slight SOB noted. Integumentary/Anthropometric Characteristics: Palpation/Observation: CVC, ASBESTOS REMOVER, Skin: surgical incision right thigh, right abdomen, bandage right thigh, all clean/dry/intact Posture: Forward head Range of Motion and Joint Integrity: Active Range of Motion: Within normal limits except as noted Upper Quarter: Cervical Spine: Not formally evaluated but grossly within normal limits during mobility. Lower Quarter: Left Lower Extremity: WNL Right Lower Extremity: limited hip/knee flexion due to pain, unable to fully extend knee in sittingsecondary to pain but has full PROM into knee extension Lumbar Spine: Not formally evaluated but grossly within normal limits during mobility. Muscle Performance: Strength: Not formally evaluated in order to prioritize functional mobility but grossly within normal limits during mobility. Upper Quarter: Left Upper Extremity: grossly >=3/5 Right Upper Extremity: grossly >=3/5 Cervical Spine: Not formally evaluated but grossly within normal limits during mobility. Lower Quarter: Left Lower Extremity: grossly >=3/5 Right Lower Extremity: grossly <=3-/5, limited by pain LumbarSpine: Not formally evaluated but grossly within normal limits during mobility. Sensation, Reflexes, and Nerve Integrity: Light Touch Sensation: No numbness reported. Not formally evaluated in order to prioritize functional mobility but grossly within normal limits during mobility. Lower Quarter: Intact for bilateral feet Neuromotor Function/Development: Pt able to move all limbs in isolation, no deficits in coordination noted with functional mobility. Balance, Mobility, and Gait: Balance: No loss of balance observed throughout physical therapy session Mobility: sit to stand: from commode, with bilateral UEs, supervision Commode to chair: supervision stand to sit: supervision with bilateral UEs Gait: Assistive device/distance/assist/deviations: Ambulated ~90 feet with RW and minimal contact assist x1 but no physical assist, slow speed, step-to pattern advancing right LE with decreased stance time and weight bearing on right LE and increased weight bearing in UEs with right stance phase. Chair follow. Self-Care, Home Management, Work, and Leisure: Not prioritized in this setting Outcomes: Please refer to individual sections for any outcome measures that were performed Informed Consent: The patient consented to the physical therapy evaluation. The patient agrees to and understands the physical therapy treatment plan and goals. Interventions Completed Today: Physical Therapy today at: 1310 Total treatment time: 25 minutes. Timed code treatment minutes: 10 Intervention included: Therapeutic exercises (1): 1. Ankle pumps, right x 10 2. Attempted PROM heel slides, abduction and adduction, right - too much pain 3. Ambulation to improve deconditioning, ~90 feet, cues to taking standing rest break as needed. Patient offered to finish at 45 feet but wanted to keep working, decreased speed noted and slight assistwith ambulation as patient fatigued toward end of bout of walking. Patient/Family Education: Topic: Assistive device/technique Discharge planning Gait Home program Role of therapy Safety Transfers Learner: patient Method: verbal and demonstration Barriers to Learning: none noted Outcome: requires assist, needs practice and verbalized understanding Team Communication: Communicated with RN re:pt status. ASSESSMENT: Physical Therapy Diagnosis: Patient presents with primary physical therapy diagnosis of force production problem with the following impairments: impaired strength, impaired gait, pain and fatigue associated with bypass surgery for RIGHT FEMORAL PSEUDOANEURYSM. The following activity limitations are noted: difficulty with transfers, ambulation and tolerance to activity resulting in an inability for the patient to participate in pre-morbid lifestyle and family activities. Physical Therapy Prognosis: Patient will benefit from Physical Therapy to address above deficits andassist with d/c planning. Patient currently requires assist for all mobility, however, anticipate with continued tissue healing, pain management and progression of mobility, she will be able to transfer and ambulate at modified independent level for safe home discharge. Patient will be home alone during the day and so requires ability for self-care at the least, including ability to safely toilet, dress and manage meals. As such, input from Occupational Therapy will be helpful - please put in consult. Recommend frequent hallway walks with nursing staff as this will be best for improving mobility prior to discharge. Physical Therapy will follow-up in 1-2 days as indicated to progress mobility. Short-Term Goals: NA Long-Term Goals: -1-2 weeks The patient will be able to perform bed mobility with modified independence assist demonstrating appropriate sequencing/motor planning. The patient will be able to perform bed to chair transfers with modified independence while demonstrating an effective strategy for recovery of loss of balance. The patient will be able to ambulate with modified independence with no loss of balance on level surfaces 200 feet. The patient and/or caregiver will be able to recall and demonstrate precautions. PLAN: Treatment/Intervention: Physical therapy will be provided by physical therapist and/or physical therapist mortgage assistant when medically appropriate. Frequency: daily for 3-5 times per week as determined by the patient's medical stability, tolerance to activity and progression of functional activities Intensity: 15-30 minutes per session Duration: During hospitalization Interventions may include:Therapeutic exercises, Therapeutic activities, Gait training and Neuromuscular re-education Patient/family education: Discharge planning, Role of physical therapy/rehabilitation, Safety Further Data: bed mobility Recommended Discharge Destination: Home with family Recommended Discharge Services: Home health physical therapy Recommended Equipment Needs: Rolling walker Other recommendations: Occupational Therapy consult Pager: [phone] Gerard Louis, PT 07/01/2017 7:39 Elmira Patel - 07/01/2017 0724 EST Anesthesia Pain Service Subjective: This is a 36 y.o. year old female with a history of IVDU (with multiple associated abscesses), hepatitis C, depression, opioid dependence on suboxone 12-6mg (last dose06/28) cocaine abuse, and MSSA bacteremia who was found to have a right femoral artery pseudoaneurysm on CTA after a right groin wound I&D. She injected cocaine into her right femoral artery and left upper extremity a few says prior to the start of her right leg pain. [place] [facility] due to a painful lesion inher right groin. She is now POD#2 s/p obturator bypass. Patient states her pain is improved this AM. Denies nightmares, hallucinations, dysphoria with ketamine gtt. ?? Pain Level 11/06 Objective: Vitals: Blood pressure 107/67, temperature 37 ??C (98.6 ??F), temperature source Tympanic, resp. rate 16, height 165.1 cm (65), weight 61.7 kg (136 lb), SpO2 100 %. Scheduled Medications: Current Facility-Administered Medications: acetaminophen (TYLENOL) tablet 1,000 mg oral Q6H aspirin chewable tablet 81 mg oral DAILY dextrose 5 % and 0.45 % NaCl with KCl 20 mEq/L infusion intravenous CONTINUOUS enoxaparin (LOVENOX) injection 40 mg subcutaneous QHS HYDROmorphone 1 mg/ml (DILAUDID) ASBESTOS REMOVER syringe, 30 ml intravenous ASBESTOS REMOVER ketAMINE (KETALAR) 500mg in NaCl 0.9% 50ml syringe intravenous CONTINUOUS LORazepam (ATIVAN) injection 0.5-1 mg intravenous AT BEDTIME PRN vancomycin (VANCOCIN) 1,500 mg in sodium chloride (NS) 0.9 % 500 mL IVPB intravenous Q12H Allergies: No Known Allergies Labs: Lab Results Component Value Date WBC 9.08 07/01/2017 HGB 6.6 (LL) 07/01/2017 HCT 20.6 (LL) 07/01/2017 MCV 85 07/01/2017 PLT 238 07/01/2017 No results found for: INR, PROTIME Examination: General: Resting comfortably NAD Resp: Breathing nonlabored Analysis and Plan: This is a 36 y.o. year old female POD#2 s/p obturator bypass. Continue ASBESTOS REMOVER and ketamine gtt today. Overall, patient doing well, will discuss starting weaning ketamine tomorrow. Patient today still NPO but look towards transition to PO dilaudid when able. Need to continue to monitor for evidence of increased sedation/respiratory depression as last dose of suboxone was approximately >72 hours ago and additional Mu receptors may lead to an increased opioid effect from hydromorphone as Suboxone fullydissociates from receptors. Recommendations: Ketamine at 15mg/hr Schedule tylenol 1000mg every 6 hours Hydromorphone ASBESTOS REMOVER at 0.5/10/3 Consider starting motrin 600mg every 6 hours Ttizanidine 4mg TID Valium 5mg prn Tye Askew MD 07/01/2017 7:24 Attestation: I saw and examined the patient 07/01/2017. I agree with the resident's/fellow's findings and plans as documented. Elmira Patel MD 07/01/2017 13:56 Christiano Mitchell MD - 07/01/2017 0417 EST Vascular Surgery Progress Note POD #2 s/p R EIA to SFA obturator bypass with 6mm PTFE, R groin exploratory and ligation of R femoral pseudoaneurysm 24hr: NGT inadvertently removed by patient AFVSS JERRY S: Doing well. Slept through the night but is still tired. Pain is well controlled but sore. Lindsay Jean Baptiste otherwise denies chest pain, SOB, n/v, f/c, uncontrolled pain, or other changes in symptoms. O: BP 107/67 (BP Cuff Location: Right arm, Patient Position: Semi fowlers) Temp 37 ??C (98.6 ??F) (Tympanic) Resp 16 Ht 165.1 cm (65) Wt 61.7 kg (136 lb) SpO2 100% BMI 22.63 kg/m2 I&O By Type - 3 Shifts Including Current In: 1273.8 [I.V.:1073.8; IV Piggyback:200] Out: 3675 [Urine:3575; Emesis/NG output:100] Physical Examination: General appearance - alert, well appearing, and in no distress and oriented toperson, place, and time Chest - CTAB Heart - regular rhythm Abdomen - soft, nontender, nondistended, no masses or organomegaly Extremities - right foot skin is tender, 2+ PT, 1+ DP/AT, sensation intact, motor limited by pain but in tact, LLE unchanged A: 36 yo female with right femoral mycotic pseudoaneurysm 2/2 injections POD 2 from obturator bypassand right groin debridement P: 1. Neuro: Pain control with ketamine infusion and ASBESTOS REMOVER, valium prn, appreciate APS help 2. CV: ASA 300 mg suppository 3. Pulm: incentive spirometry 4. Renal/Endo: dawn catheter, strict intake/output 5. FEN: D5 1/2 NS with 20 KCl 6. GI: DIET NPO TIME SPECIFIED Except for: Ice chips 7. Heme: lovenox DVT ppx qhs 8. ID: continue vancomycin, appreciate ID recs 9. Disposition: Med/Surg Kraig Meyers MD 07/01/2017 7:09 Vasc Staff Comfortable today. Palp pulses HCT 20.6 OOB/Dawn out/Heplock. Keep NPO until flatus. Doe Sagar Mckeon MD - 07/01/2017 0111 EST Brief ESS update Called to bedside as patient had reportedly removed NGT, NGT found to be out. Patients abdomen soft,ttp over incision but non-distended, patient not nauseous. Denies any flatus yet. Per discussion with Dr. Mills, [facility] fellow contact center director decision made to keep NGT out for now. Will replace if any N/V. Keep NPO tonight Sagar Mckeon MD 07/01/2017 1:12 Nessa Clarke RN - 06/30/2017 1243 EST 1100: pleasant, cooperative. Using ASBESTOS REMOVER appropriately, Ketamine gtt still running. BP stable, UO great, NGT in place, NPO for now. BLE pulses are diminished but palpable. Feet are cool to touch, pt. Stated that's normal for her. Arnold Dunn MD - 06/30/2017 1115 EST Vascular Surgery Progress Note POD #1 s/p R EIA to SFA obturator bypass with 6mm PTFE, R groin exploratory and ligation of R femoral pseudoaneurysm S: Complains of right groin pain this morning, 9/10 although this is improved. She also complains ofsore throat around NG tube. She denies any chest pain or SOB. No nausea or vomiting, no flatus. No fevers or chills O: BP 111/66 Temp 36 ??C (96.8 ??F) (Tympanic) Resp 11 Ht 165.1 cm (65) Wt 61.7 kg (136 lb) SpO2 98% BMI 22.63 kg/m2 NAD GCS 15 RRR CTAB Soft, mildly distended, appropriately TTP, no rebound guarding Extr: warm, well perfused minimal edema Pulses: palpable PT/DP bilaterally A: 36 yo female with right femoral mycotic pseudoaneurysm s/p obturator bypass and right groin debridement P: 1. Neuro: Pain control with ketamine infusion and ASBESTOS REMOVER, valium prn 2. CV: ASA 300 mg suppository 3. Pulm: incentive spirometry, wean O2 as tolerated 4. Renal/Endo: dawn catheter, strict intake/output 5. FEN: D5 1/2 NS with 20 KCl 6. GI: NPO, NG tube to LIS, IV protonix for ppx 7. Heme: start on lovenox DVT ppx tonight at 2100 8. ID: continue vancomycin, start on Rifampin; appreciate ID recs 9. Disposition: transfer to Med/Surg Arnold Mills MD Vascular Surgery Fellow (PGY 6) Christiano Mitchell MD - 06/30/2017 1001 EST Vasc Staff POD 1 Abd-soft/flat Ext-Palp pulses HCT 22 1. Leave NGT in place for now 2. Check HCT later today 3. OOB-chair 4. Transfer to floor. Incentive spirometry. Doe Elmira Fonseca - 06/30/2017 0819 EST Anesthesia Pain Service Subjective: This is a 36 y.o. year old female with a history of IVDU (with multiple associated abscesses), hepatitis C, depression, opioid dependence on suboxone 12-6mg (last dose06/28) cocaine abuse, and MSSA bacteremia who was found to have a right femoral artery pseudoaneurysm on CTA after a right groin wound I&D. She injected cocaine into her right femoral artery and left upper extremity a few says prior to the start of her right leg pain. She [place] [facility] due to a painful lesion inher right groin. She is now POD#1 s/p obturator bypass. Patient states her pain is improved this AM. Denies nightmares, hallucinations, dysphoria with ketamine gtt. ?? Pain Level 11/06 Objective: Vitals: Blood pressure 95/58, temperature 36 ??C (96.8 ??F), temperature source Tympanic, resp. rate20, height 165.1 cm (65), weight 61.7 kg (136 lb), SpO2 99 %. Scheduled Medications: Current Facility-Administered Medications: acetaminophen (OFIRMEV) IV solution 1,000 mg intravenous Q6H aspirin suppository 300 mg rectal DAILY benzocaine-menthol (CEPACOL) 15-3.6 mg per lozenge 1 Lozenge buccal PRN dextrose 5 % and 0.45 % NaCl with KCl 20 mEq/L infusion intravenous CONTINUOUS DIAZepam (VALIUM) 2.5-5 mg intravenous AT BEDTIME PRN HYDROmorphone 1 mg/ml (DILAUDID) ASBESTOS REMOVER syringe, 30 ml intravenous ASBESTOS REMOVER ketAMINE (KETALAR) 500mg in NaCl 0.9% 50ml syringe intravenous CONTINUOUS melatonin tablet 3 mg oral QHS pantoprazole (PROTONIX) tablet 40 mg oral DAILY Or pantoprazole (PROTONIX) injection 40 mg intravenous DAILY phenol (PHENASEPTIC,CHLORASEPTIC) 1.4 % solution/spray topical PRN vancomycin (VANCOCIN) IVPB 1,000 mg intravenous Q12H Allergies: No Known Allergies Labs: Lab Results Component Value Date WBC 9.94 06/30/2017 HGB 7.6 (L) 06/30/2017 HCT 22.8 (L) 06/30/2017 MCV 83 06/30/2017 PLT 238 06/30/2017 No results found for: INR, PROTIME Examination: General: Resting comfortably NAD Resp: Breathing nonlabored NG tube in place Analysis and Plan: This is a 36 y.o. year old female . Continue ASBESTOS REMOVER and ketamine gtt today. Overall, patient doing well, will discuss starting weaning ketamine tomorrow Recommendations: Ketamine at 15mg/hr Schedule tylenol 1000mg every 6 hours Hydromorphone ASBESTOS REMOVER at 0.5/10/3 Consider starting motrin 600mg every 6 hours Ttizanidine 4mg TID Valium 5mg prn Tye Askew MD 06/30/2017 10:50 Attestation: I saw and examined the patient with the resident/fellow 06/30/2017. I agree with the findings and plan of care documented in the resident's/fellow's note. Elmira Patel MD 06/30/2017 10:50 paemanuel, Maddie Brice, RN - 06/29/2017 1009 EST 0730 resting in bed, oob to commode independent. lines intact. Taken to or on bed ks 13 back from or. States that pain 10/10 ks 1345 ketamine and dilaudid Started. Instructed on final assembler boat use ks 15 reports that pain is still tito but slightly better 8/10, bathed, turned to si de ks 16 pt asleep, aeakened, aps in ,. Reports pain 8/[address] azar in pt dozing, awakens to 8/10 pain, using final assembler boat ks 18 red rds fujii. Requested tyl iv to augment Iv narcotics, pt anle to doze p final assembler boat dose, then awakensto 8/10 pain ks Vj Escobar MD - 06/29/2017 0831 EST VASCULAR SURGERY DAILY PROGRESS NOTE LOS: 1 day DOS: 06/29/2017 24 hour events: Admitted as transfer with infected right femoral pseudoaneurysm Transferred to ICU due to risk for rupture Subjective: Doing ok, hungry. No fevers/chills. Objective: Vitals: Temp: [36 ??C (96.8 ??F)-36.9 ??C (98.4 ??F)] (), Pulse: -- (), Resp: [16-19] (), BP: (97-131)/(59-94) (), SpO2: [97 %-100 %] () Telemetry/EKG: NSR I+O last shift: 06/29 0700 - 06/29 1459 In: - Out: 1000 [Urine:1000] I+O last 3 shifts: 06/28 07 - 06/29 0659 In: 1966.9 [I.V.:1316.9] Out: 1250 [Urine:1250] Physical Exam: General: Alert, NAD Lungs: CTAB Heart: RRR, + murmur Abdomen: Soft, nontender, nondistended Extremities: right groin with WTD packing Pulses: 1+ R DP and PT, 2+ L DP and PT Labs: Recent Labs 06/29/17 0318 WBC 8.21 HGB 8.2* HCT 25.4* PLT 253 Recent Labs 06/29/17 0318 NA 138 K 4.1 CL 105 CO2 25 BUN 5* CREATININE 0.72 MG 2.1 PHOS 3.1 CAION 1.16 Assessment: Lindsay Jean Baptiste is a 36 y.o. female admitted for infected right groin pseudoaneurysm. Stable in ICU overnight. Plan for OR for right obturator bypass today. Patient Active Problem List Diagnosis ??? Pseudoaneurysm of femoral artery ([facility]) Plan: Neurologic: Pain control with tylenol, ibuprofen Cardiovascular: ASA, EKG preop for prior cocaine use Respiratory: Supplemental O2 PRN. Encourage IS. GI/FEN: DIET NPO TIME SPECIFIED, IVF Integument: Dressing right groin, left intact ID: appreciate ID involvement, vancomycin (likely residential abx), f/u OSH HIV and cultures Dispo: uncertain at this time Code: FULL Vj Christina MD 06/29/2017 8:31 Vj Escobar MD - 06/28/20172010 EST Vascular Surgery Pre-Operative Note Pre-operative Diagnosis: infected right pseudoaneurysm Planned procedure: obturator bypass Surgeon: Dr. Ramos Laboratories: WBC/Hgb/Hct/Plts: 5.31/8.1/25.1/262 (06/28 1232) BUN/Cr/glu/ALT/AST/amyl/lip: 10/--/--/--/--/--/-- (06/28 1232) Platelets: 262 INR: 1.0 (OSH) PTT: 23 (OSH) Blood: Type and Screen: ordered, 2 units prepared EKG: ordered, pending CXR: performed at OSH Allergies: No Known Allergies Anticoagulation held prior to procedure: heparin gtt to be held at midnight prior to OR, continue ASA Pre-operative antibiotics: on vancomycin Pt NPO at midnight, IV Fluids ordered - yes Consent: in paper chart - yes Vein mapping: ordered 06/28 Vj Christina MD 06/28/2017 20:34 Yan Hill RT - 06/28/20171950 EST Respiratory Consult/Progress Note Indications for Respiratory therapy: ICU Data Vitals: Heart Rate: 92 BPM, Resp: 19, SpO2: 99 % FIO2/O2 Device: O2 Flow Rate (L/min): 0 l/min, , O2 Device: None, RT Orders: q12 resp eval Protocol Scoring: Bronchodilator/Inhalation Therapy Frequency Bronchodialator - Clinical Indications: No clinical indications Breath Sounds: Clear Response: No change / no treatment Pulse: <100 Resp Rate: <18 SOB: None Total Score: 0 Airway Clearance Therapy Frequency Airway Clearance - Clinical Indications: No clinical indications Breath Sounds: Clear / diminished Sputum: Small (tsp) / None Consistency: None Cough Effort: Strong, non-productive Color: None Total Score: 0 Hyperinflation Therapy Frequency Hyperinflation - Clinical Indications: No clinical indications Breath Sounds: Clear Surgery: No X-Ray / Atelectasis: No O2 Requirements: O2 at baseline Mobility Status: Mobile / at baseline Total: 0 Action/Events Respiratory events; Consulted pt, who stated she does not take any respiratory medications at home, no cpap/bipap and no home oxygen RT Anthony 06/28/17 j Christina MD - 06/28/2017 1428 EST Vascular Surgery Update Patient admitted today with infected right femoral artery pseudoaneurysm with plan for bypass surgery tomorrow. Due to risk of rupture and need for close neurovascular monitoring until surgery, patientto be transferred to SICU. Full H&P to follow. Vj Christina MD 06/28/2017 14:31 PGY-3 [id number] signed by Vj Christina MD at 06/28/2017 14:32 ESTdocumented in this encounter H&P Notes Grzegorz Ramos MD - 06/28/2017 1419 EST Surgical H+P Admission Admit Date: 06/28/2017 Date of Service: 06/28/2017 Hospital day: LOS: 0 days Chief Complaint: R femoral PSA HPI: (Location, Quality, Severity, Duration, Timing, Context, Modifying Factors, Associated Signs and Symptoms) 36 y.o. F who presents as a transfer after having an I&D of right groin wound (POD #1) and notedon CTA to have a R femoral PSA. She has a PMHx that is significant for opioid dependence for which she is on suboxone and cocaine abuse (IV and intranasal). She states that she used cocaine a few days ago but has not injected drugs in many years. PMH PSH No past medical history on file. No past surgical history on file. Social History Family history Social History Substance Use Topics ??? Smoking status: Never Smoker ??? Smokeless tobacco: Never Used ??? Alcohol use Not on file No family history on file. Medications Prescriptions Prior to Admission Medication Sig Dispense Refill Last Dose ??? buprenorphine-naloxone (SUBOXONE) 2-0.5 mg tablet, sublingual Place 6 Tabs under the tongue daily. ??? Multivitamins with Minerals tablet tablet Take 1 Tab by mouth daily. Allergies No Known Allergies Review of Systems: Pertinent items are noted in Subjective/HPI Last Meal: Objective/Physical Exam: VS: Patient Vitals for the past 8 hrs: BP Heart Rate Resp Temp SpO2 O2 Flow Rate (L/min) O2 Device 06/28/17 1405 107/70 92 BPM 18 36.9 ??C (98.4 ??F) 100 % 0 l/min None 06/28/17 1045 131/80 69 BPM 16 36.4 ??C (97.5 ??F) 100 % 0 l/min None Pain: Patient Vitals for the past 8 hrs: Numeric Pain Level (Scale 1-10) 06/28/17 1319 4 06/28/17 1045 1 Exam: NAD GCS 15 RRR. + Murmur CTAB Soft NT ND R Groin with gauze packed incision 1+ R DP and PT, 2+ L DP and PT 2+ B/L Radial pulses Assessment 36 y.o. F with an infected R femoral PSA Problems/Plan: (update problem list daily as appropriate) Admit, NPO, IVF, IV ATBx, ID consult, repeat blue cultures, f/u OSH cx. Plan for OR in AM for obturator bypass. Diego Gabriel MD 06/28/2017 14:19 Attestation statement: I saw and examined the patient with the resident/fellow. I agree with the findings and plan of care documented in the resident's/fellow's note. Observation overnight in ICU. Planfor first case tomorrow obturator bypass and debridement of right femoral artery. documented in this encounter Procedure Notes Denis Vazquez II, MD - 07/02/2017 1847 EST Central Catheter Insertion First Catheter This Session offset lithographic press setter: Patient Location: [place] [id number] Preliminary Data: Insertion Date: 07/02/17 Insertion Time: 1656 First Weld Engineer: vasyl RN/MA Documenting Procedure: vlp Pre-procedure: Time Out / Final Moment Performed: Yes Hand Hygiene Immediately Prior To Procedure: Yes Site Disinfected-2% Chlorhex/70% Alcohol: Yes Procedure Site Completely Dry: Yes Entire Patient Draped in Sterile Fashion: Yes Intra-procedure: Sterile Gloves Used: Yes Cap, Mask, and Sterile Gown - Operators: Yes Sterile Field Maintained: Yes Cap and Mask Worn - All Personnel: Yes Post-procedure: Sterile Dressing Applied - Sterile Technique: Yes Needle Passes: Resident/Fellow Makes 3 Passes or Less: Yes Physician Documentation Pre-Procedure: Procedure To Be Performed: New central line placement Indication: New indication Line Priority: Routine Tip Confirmation: Placed under fluoro Consent Obtained: No The patient and/or family have been provided education/training to minimize the risk of central line-associated bloodstream infections. Central Line Type: Central Catheter Type: PICC PICC Type: Power PICC Central Line Details: Line Location: Left;Brachial Final Tip Location: Superior Vena Cava Line Lumens (#): Single Central Line Size: 4 Fr Line Coating: Non-antimicrobial coated Line Trim Length: 44 cm Line External Length: Hub Line Securement Device: Statlock device Responsible Service / IR Details: Responsible Service: IR Lidocaine 1% - Route/Dose (cc's): Subcutaneous;5 Contrast Administerd - Other (Type and Volume): 10 cc Fluoroscopy Time (min): 3.2 Patient Condition At Completion Of Case: Stable Central Line Materials and Methods: Number of Attempts: 3 Number of Sites Attempted: 3 Unsuccessful Sites: Brachial, right Number of Kits Used: 1 Location Device Used: Angiography;Ultrasound Central Line Operators: Number Of Operators: 2 First Weld Engineer's Name: denis vazquez First Weld Engineer's Title: Fellow Conveyor Belt Repairer's Name: karel saldaña Conveyor Belt Repairer's Title: Attending Unless otherwise noted, there were no complications, no blood loss and no cultures obtained. Denis Vazquez II, MD 07/02/2017 18:47 Carlee Puentes NP - 07/02/2017 1124 EST Vascular Surgery Procedure Note Procedure: Wound vacuum dressing initiation Date: 07/02/2017 Indication: s/p R EIA to SFA obturator bypass with 6mm PTFE, R groin exploratory and ligation of R femoral mycotic pseudoaneurysm Findings: saturated wet to dry dressing removed. Wound in right groin measures 3.0 X 1.5 X 3.5 cm deep, david present superiorly and inferiorly. Wound with serous drainage, no odor, purulence or surrounding erythema. No granulation tissue in the base of the wound. Wound vacuum settings: 125 mmHg low, continuous Pre-medication: pt utilized ASBESTOS REMOVER button X one with good effect, tolerated the procedure well. Plan: Twice weekly wound vac dressing changes Sun/. documented in this encounter Consult Notes Alice Valdez MD - 06/29/2017 1648 EST Division of Infectious Disease Follow Up Evaluation Date: 06/29/2017 HPI: Lindsay was evaluated in the MICU after recovering from surgery today. She reports that she was sleepy. She did not have any new complaints of fever, chills, cough, palpitations, bleeding. +pain Meds: Medications reconciled via PRISM. Current antimicrobials include: Vancomycin 3/- Levofloxacin 3/ Metronidazole 3/ Re[place] Vancom[place] levofloxacin, [place]ron[place] [facility] Allergies:Review of patient's allergies indicates no known allergies. ROS: Remainder of 10 point ROS is negative. Objective: BP 109/67 Temp 36 ??C (96.8 ??F) (Tympanic) Resp 16 Ht 165.1 cm (65) Wt 61.7 kg (136 lb) SpO2 97% BMI 22.63 kg/m2 PHYSICAL EXAMINATION: GENERAL APPEARANCE: Drowsy appearing, well nourished young female lying in bed in NAD SKIN: right groin surgical incision with wound dressing c/d/i. HEENT: NC/AT. Sclera anicteric. NECK: R IJ central catheter in place. CV: RRR, Normal S1,S2. No murmur. LUNGS: CTAB ABDOMEN: Soft, nontender, nondistended. EXTREMITIES: Without cyanosis, clubbing or edema. NEUROLOGICAL: Drowsy, but interactive. No focal deficits. Laboratory Data: CBC: Lab Results Component Value Date WBC 19.37 (H) 06/29/2017 RBC 3.32 (L) 06/29/2017 HGB 9.2 (L) 06/29/2017 HCT 27.2 (L) 06/29/2017 MCV 82 06/29/2017 MCH 27.7 06/29/2017 MCHC 33.8 06/29/2017 PLT 312 06/29/2017 NEUTROABS 17.84 (H) 06/29/2017 BMP: Lab Results Component Value Date NA 136 06/29/2017 K 4.3 06/29/2017 CL 107 06/29/2017 CO2 23 06/29/2017 BUN 3 (L) 06/29/2017 CREATININE 0.59 06/29/2017 MG 1.5 (L) 06/29/2017 PHOS 3.4 06/29/2017 Radiology: Reviewed. No new imaging. Microbiology: [place] [place] Culture 06/25: NGTD Wound Culture (right groin abscess) 06/25: MSSA @[facility] Blood Culture 06/28 (2 sets): NGTD (I called [facility] at approximately 0900 on 06/29) Pseudoaneurysm tissue culture 06/29: Poly's, no bacteria Impression: 36 year old female with PMHx of IVDU and cefazolin induced neutropenia who is admitted for pseudoaneurysm of the right profunda femoral artery likely secondary to either direct injection of cocaine by patient or from hematologic spread of bacteria, also s/p I&D of right groin abscess which grew MSSA at [facility]. Blood cultures remain negative. She underwent an uncomplicated obturator bypass with placement of a 6 mm ringed PTFE graft. She remains hemodynamically stable and has been afebrile since admission. Recommendations/Plan: 1. Continue Vancomycin 15mg/kg IV q 12 hours. 2. Please check trough prior to next dose. Goal trough ~15. 3. Follow blood and tissue culture/sensitivities Mario Tinsley MD 06/29/2017 16:48 Attestation statement: I have seen and examined the patient with the resident/fellow. I agree with the findings and plan of care documented in the resident's/fellow's note. My changes in bold and strikeout. Saw Lindsay following surgery. Pain control not adequate, but appears to be resting comfortably. Dressings clean and not soaked through. 1. Right groin MSSA abscess 2. S/p right obturator bypass graft for pseudoaneurysm on 06/29/17 3. Hx of IVDU 4. Hx of cefazolin induced neutropenia Continue vancomycin 15m/kg IV q 12 hours. Check trough prior to 4th dose, goal trough ~15. Will likely add rifampin 300mg po q 12 hours in the coming days. Rifampin will likely interact with suboxone to decrease suboxone concentrations. Would let her suboxone provider know of this interaction and anticipate dose adjustments. Alice Valdez MD 06/29/2017 17:36 Veronica Boswell MD - 06/29/2017 1120 EST Anesthesia Pain Service Inpatient Consult Name: Lindsay Jean Baptiste :: Age: 36 y.o. :: , :: Location: SICU Requesting physician: Grzegorz Ramos MD Anesthesiology attending: Dr. Armenta Reason for consult: right groin pain Cc: right groin pain HPI: Patient is a 36 y.o. year old female with a history of IVDU (with multiple associated abscesses), hepatitis C, depression, opioid dependence on suboxone 12-6mg (last dose yesterday), cocaine abuse, and MSSA bacteremia who was found to have a right femoral artery pseudoaneurysm on CTA after a right groin wound I&D. She injected cocaine into her right femoral artery and left upper extremity a few says prior to the start of her right leg pain. She presented to the ED [place] [facility] [place] 06[place] due to a painful lesion in her right groin. She is now POD#0 s/p obturator bypass. APS was consulted for pain management. Upon meeting Lindsay, she was in sleeping in her bed. On wakening, she states that her pain is getting under better control and that her ASBESTOS REMOVER button helps. She rates her pain as going down to an 8 from 10/10 pain. ROS: A 12 system comprehensive review of systems was performed. Pertinent negatives and positives, if present, are noted in the HPI. Past Medical History: Diagnosis Date ??? Bacteremia due to Staphylococcus aureus ??? Cocaine abuse ??? Hepatitis C antibody positive in blood ??? Iron deficiency anemia ??? Moderate opioid use disorder (CMS-HCC) ??? Skin abscess Patient Active Problem List Diagnosis ??? Pseudoaneurysm of femoral artery (CMS-HCC) Past Surgical History: Procedure Laterality Date ??? ABDOMINAL EXPLORATION SURGERY ??? ECTOPIC SURGERY Home Medications Suboxone 12-6mg daily Hospital Medications Current Facility-Administered Medications: acetaminophen (TYLENOL) tablet 1,000 mg oral Q6H PRN aspirin chewable tablet 81 mg oral DAILY chlorhexidine gluconate 2 % cloth 1 Each topical DAILY dextrose 5 % and 0.45 % NaCl with KCl 20 mEq/L infusion intravenous CONTINUOUS docusate sodium (COLACE) capsule 100 mg oral DAILY ibuprofen (MOTRIN) tablet 400 mg oral Q6H PRN LORazepam (ATIVAN) injection 1-2 mg intravenous QHS melatonin tablet 3 mg oral QHS Multivitamins with Minerals tablet 1 Tab oral DAILY polyethylene glycol 3350 (MIRALAX) packet 17 g oral DAILY senna (SENOKOT) tablet 1 Tab oral QHS vancomycin (VANCOCIN) IVPB 1,000 mg intravenous Q12H Allergies No Known Allergies SHx: Social History Social History ??? Marital status: Spouse name: N/A ??? Number of children: N/A ??? Years of education: N/A Occupational History ??? Not on file. Social History Main Topics ??? Smoking status: Never Smoker ??? Smokeless tobacco: Never Used ??? Alcohol use Not on file ??? Drug use: Yes Special: IV, Cocaine, Opioids, Benzodiazapines ??? Sexual activity: Not on file Other Topics Concern ??? Not on file Social History Narrative ??? No narrative on file FHx: No family history on file. Labs: Lab Results Component Value Date WBC 8.21 06/29/2017 HGB 8.2 (L) 06/29/2017 HCT 22 (L) 06/29/2017 MCV 81 06/29/2017 PLT 253 06/29/2017 No results found for: INR, PROTIME PE: Vitals: BP 112/67 Temp 36 ??C (96.8 ??F) (Tympanic) Resp 19 Ht 165.1 cm (65) Wt 61.7 kg (136 lb) SpO2 98% BMI 22.63 kg/m2 General:NAD, comfortable, sleeping in bed HEAD: normocephalic Lungs: nonlabored breathing Assessment: Patient is a 36 y.o. yo female with a history of hep C, IVDU, cocaine abuse, opioid dependence on suboxone presenting with a right femoral artery pseudoaneurysm now POD#0 s/p obturator bypass. Patient seems comfortable on current pain regimen. Recommendations: Start ketamine at 15mg/hr (ordered) Schedule tylenol 1000mg every 6 hours Continue hydromorphone ASBESTOS REMOVER at 0.5/10/3 Consider starting motrin 600mg every 6 hours Consider starting tizanidine 4mg TID Would start valium 5mg prn 11:20 06/29/2017 Veronica Boswell MD Anesthesia PGY-3 APS [id number] Associated attestation - Anika Armenta MD - 06/29/2017 1658 EST I was present for the evaluation and examination of this patient and agree with the above plan. Yamilet Spears Lindsay Martin, MD - 06/28/2017 1640 EST Associated Order(s): CONSULT INFECTIOUS DISEASES Division of Infectious Disease New Patient Evaluation Date: 06/28/2017 Reason for Consult/Chief Complaint: R Femoral Pseudoaneurysm. Asked to assist with antibiotic selection. 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 She reports that she injected cocaine into her right femoral artery and left upper extremity a few days prior to onset of pain in her right leg. Her symptoms began as pain and swelling in her right thigh. Her symptoms progressed to small spots appearing on her anterior right lower leg. This past 06/24/17, she developed an egg shaped and sized lesion in her right groin. The lesion was very painful, prompting presentation to [facility] [place] on 06/25. In addition, over the month prior to presentation to the ED, she had been experienced subjective fevers (feeling hot) and measured her temperature frequently, 99 degrees F. She was taking approximately 1600 mg ibuprofen per day for fevers and pain. She denied shaking chills, night sweats, chest pain, dyspnea, palpitations, abdominal pain, dysuria, diarrhea. Also of note, she did have a minor sinus infection for which she went to urgent care and was prescribed Augmentin on 06/22/17. She reports taking 4-5 augmentin pills prior to presenting to [facility]. At [facility] [place], she underwent I&D of the right groin abscess and was started on vancomycin, levofloxacin, metronidazole and clindamycin. Upon arrival at [facility] she was initially admitted to the [facility] vascular surgery service. After their evaluation, she was transferred to the SICU for closer monitoring due to concern for bleeding from the pseudoaneurysm. The vascular surgery service is planningfor bypass grafting on 06/29/17. PMHx: has a past medical history of Bacteremia due to Staphylococcus aureus; Cocaine abuse; Hepatitis C antibody positive in blood; Iron deficiency anemia; Moderate opioid use disorder ([facility]-HCC); and Skin abscess. PSHx: has a past surgical history that includes Ectopic surgery and Abdominal exploration surgery. Skin grafts to right foot. Soc Hx: Mother to a 5 year old daughter. . Takes care of her child and the house. Denies alcohol use or tobacco use. IVDU practices consist of clean needles from a needle exchange. Uses filters. Fam Hx: DM in mother. Meds: Medications reconciled via PRISM. Current antimicrobials include: Vancomycin, levofloxacin, metronidazole. Also received clindamycin at [facility] Allergies:Review of patient's allergies indicates no known allergies. ROS: Remainder of 10 point ROS is negative. Objective: BP 110/70 Temp 36 ??C (96.8 ??F) (Tympanic) Resp 18 Ht 165.1 cm (65) Wt 61.7 kg (136 lb) SpO2 100% BMI 22.63 kg/m2 PHYSICAL EXAMINATION: GENERAL APPEARANCE: Well developed, well nourished young female lying in bed in NAD SKIN: right groin with bloody packing in place. Area is tender to palpation. No surrounding induration or erythema. Serosanguinous fluid expelled on palpation. Tender firm nodule superior to wound. Numerous brown pinpoint lesions and old healed scars on anterior right leg. Well healed right foot scarss/p skin graft from previous abscess. No janeway lesions, osler's nodes, or splinter hemorrhages HEENT: NC/AT. Sclera anicteric. Conjunctiva pink, moist. EOMI. Normal oral mucosa. No conjunctival hemorrhages or petichiae. No thrush NECK: Supple, symmetric without lymphadenopathy. R IJ central catheter in place. CV: RRR, Normal S1,S2. I/ systolic murmur. LUNGS: CTAB ABDOMEN: +BS. Soft, nontender, nondistended. EXTREMITIES: Without cyanosis, clubbing or edema. No popliteal lymphadenopathy. NEUROLOGICAL: Alert and oriented x 3. Chronic flexion of digits of left hand. No other deficits. Laboratory Data: CBC: Lab Results Component Value Date WBC 5.31 06/28/2017 RBC 3.06 (L) 06/28/2017 HGB 8.1 (L) 06/28/2017 HCT 25.1 (L) 06/28/2017 MCV 82 06/28/2017 MCH 26.5 (L) 06/28/2017 MCHC 32.3 06/28/2017 PLT 262 06/28/2017 NEUTROABS 3.89 06/28/2017 BMP: Lab Results Component Value Date BUN 10 06/28/2017 MG 2.1 06/28/2017 PHOS 4.1 06/28/2017 Creatinine 06/25: 0.78 U/A: Lab Results Component Value Date CLARITYU Clear 06/28/2017 PHUR 7.0 06/28/2017 GLUCOSEU Neg 06/28/2017 BILIRUBINUR Neg 06/28/2017 KETONES Neg 06/28/2017 BLOODU 2+ (A) 06/28/2017 PROTEINUA Neg 06/28/2017 UDS 06/06: Positive for cocaine, benzodiazepines Radiology: Echocardiogram 06/27 performed at [facility]: Summary of report: EF 65-70%. Mild MR, LA mildly dilated, RV size normal. CTA RLE 06/27 performed at [facility] - I have personally reviewed images: Summary: pseudoaneurysm of right profunda femoral artery just distal to bifurcation of proximal femoral artery. CXR 06/27 performed at [facility] - I have personally reviewed images. No infiltrates: Summary: Normal Microbiology: Blood Culture 06/25: NGTD Wound Culture (right groin abscess) 06/25: MSSA Blood Culture 06/28 (2 sets): NGTD (I personally called the [facility] microbiology lab on 06/28/17 at 4:30pm - no growth to date) Impression: 36 year old female with PMHx of IVDU with prior complications including MSSA bacteremia, multiple abscesses and left medial and ulnar nerve palsies who was transferred to [facility] for advanced management of right femoral artery pseudoaneurysm s/p I&D of right groin abscess, from which cultures grew MSSA. The etiology of the pseudoaneurysm is likely directly related to non-sterile injection into the femoral artery. 1. Pseudoaneurysm of the right profunda femoral artery: Likely secondary to either direct injection of cocaine by patient or from hematologic spread of bacteria. Thus far blood cultures without growth.Suspect patient was likely bacteremic at some point, though not necessary as infection is localized to right groin area. Blood cultures could be without growth due to pre-treatment with Augmentin. 2. Right groin MSSA abscess 3. Hx of IVDU 4. Hx of cefazolin induced neutropenia Recommendations/Plan: 1. Stop Levofloxacin, metronidazole 2. Continue Vancomycin 15mg/kg IV q 12 hours. Please check trough prior to next dose. Goal trough ~15. 3. Agree with plans for Bypass surgery and washout of pseudoaneurysm. Please send tissue for bacterial and fungal culture. 4. If possible, patient would prefer picc line placed in OR while under anesthesia Mario Tinsley MD 06/28/2017 19:26 Attestation statement: I have seen and examined the patient with the resident/fellow. I agree with the findings and plan of care documented in the resident's/fellow's note. My changes in bold and strikeout. Alice Valdez MD 06/29/2017 9:05 documented in this encounter OR Notes OR Surgeon - Grzegorz Ramos MD - 06/29/2017 0000 EST OPERATIVE REPORT SERVICE DATE: 06/29/2017 PREOPERATIVE DIAGNOSIS: Right groin infection with femoral pseudoaneurysm. POSTOPERATIVE DIAGNOSIS: Right groin infection with femoral pseudoaneurysm. PROCEDURES: 1. Right external iliac to superficial femoral artery obturator bypass using a 6 mm PTFE. 2. Incision and debridement of right groin. ANESTHESIA: General. SURGEON: Grzegorz Ramos MD COSURGEON: Christiano Azar MD (please see Dr Azar's dictation note for where he was primary surgeon). [employer]: Diego Gabriel MD, Arnold Mills MD INDICATIONS: This is a 36-year-old woman IV drug abuser who had injected her right groin numerous times creating an abscess and a pseudoaneurysm of her femoral artery. She is being taken for debridement and ligation of that artery and an obturator bypass. NARRATIVE: Please see Dr Azar's note for his portion. For my portion of the procedure, informed consent was obtained ahead of time. The patient was brought to the operating room, placed supine on the table with a bump under her right hip. The entire abdomen and right leg were shaved, prepped and draped in sterile fashion. Appropriate time-out was performed. There were no discrepancies. Dr Azar did the external iliac artery exposure in retroperitoneal fashion. I exposed the superficial femoral artery and a longitudinal incision in the mid thigh. Sharp and electrocautery dissection was used to loop the superficial femoral artery. Dr Azar did the tunneling of 6 mm PTFE. We did fail at tunneling an 8 mm, which did not fit through the obturator foramen. The external iliac artery anastomosis was done by Dr Azar. Once this was done, the bypass itself was clamped in the pelvis. The PTFE was trimmed to the appropriate length and bevelled appropriately. The patient was already systemically heparinized to a goal ACT of 250. We clamped the superficial femoral artery distally and proximally. An 11 blade was used to c reate a longitudinal incision extended distally and proximally with Black scissors. Anastomosis donewith 6-0 Prolene suture. Prior to completion, we did flush the superficial femoral up and down and the PTFE. There was already a clip placed on the external iliac artery low in the pelvis, and a clip was placed on the superficial femoral artery superior to where our anastomosis was. We then closed theexternal iliac artery incision with successive layers of Vicryl in the peritoneum followed by #1 PDSon the layers of fascia and then skin was closed. The superficial femoral artery was closed with a running layer of Vicryl and then skin david. Once everything was closed, we then opened up the right groin incision, which was previously infected. This was done with longitudinal incision on top of the femoral artery, which was identified. The contained rupture was identified. We sent a portion of the artery for culture. We then debrided the artery and oversewed the profunda using a 2-0 silk suture. The debridement that we performed was a total of 20 square cm, included skin, subcutaneous tissue, subcutaneous fat and femoral artery. We then packed that incision. The patient was awoken and taken to recovery in stable condition. Unless otherwise noted, there were no complications, no blood loss, no cultures obtained, no specimens removed, and no drains retained. Grzegorz Ramos MD 08 55 AM / Grzegorz Ramos MD cn Confirmation: [id number] Dictation ID: [id number] R Surgeon - Christiano Azar MD - 06/29/2017 0000 EST OPERATIVE REPORT SERVICE DATE: 06/29/2017 PREOPERATIVE DIAGNOSIS: Infected right common femoral artery pseudoaneurysm. POSTOPERATIVE DIAGNOSIS: Infected right common femoral artery pseudoaneurysm. PROCEDURE: Obturator bypass. SURGEON: Christiano Azar MD, Grzegorz Ramos MD ASSISTANTS: Arnold Mills MD, Diego Gabriel MD ANESTHESIA: INDICATIONS: The patient is a 36-year-old woman who was an IV drug abuser, developing an infected groin pseudoaneurysm in her right groin from repetitive access site puncture burns. She had been attempted groin debridement at an outside hospital and was transferred here urgently. NARRATIVE: The patient prepped and draped in the usual sterile fashion after adequate general endotracheal anesthesia and an A-line was placed in the left wrist. After positioning her with her right hip forward and a roll behind her lumbar region, we made a curvilinear incision extending from 2 fingerbreadths medial to the anterior superior iliac spine, down around to the pubic tubercle. Skin and subcutaneous tissue sharply divided. Electrocautery was used to dissect down through the layers of the abdominal cavity. External oblique was divided, internal oblique was divided. We used blunt dissectionto dissect out the peritoneal contents and continued our dissection down deep into the pelvis. We did encounter some small bleeding venous and arteries down deep in the pelvis below the obturator [place] we clipped these with vascular clips. We did identify the obturator canal and placed our Bookwalter retractor so we could see this. We did lose about 400 mL of blood doing the dissection from the pelvic bleeding. In simultaneous fashion, in the mid-thigh skin and subcutaneous tissues were sharply divided. Electrocautery was used to dissect down to the sartorius. The sartorius was swept inferiorly. The superficial femoral artery was dissected out proximally and distally. At this point in time, wedid form our obturator canal and we did this using an aortic clamp through the adductors into the obturator canal and we did pass a cotton umbilical tape after trying to pass 8 mm PTFE graft. We did pass a cotton umbilical tape, tied a 6 mm ringed PTFE bypass to it and pulled that up into the field. At this point in time, the proximal and distal anastomoses were formed, as well as the debridement of the pseudoaneurysm. Please see Dr Ramos's dictated note for this. Unless otherwise noted, there were no complications, no blood loss, no cultures obtained, no specimens removed, and no drains retained. Christiano Azar MD 10 05 AM / Christiano Azar MD cn Confirmation: [id number] Dictation ID: [id number] documented in this encounter Miscellaneous Notes Daily Progress Note - Grzegorz Ramos MD - 07/06/2017 0907 EST Just saw patient at bedside when I was told she was planning to sign out AMA. I pleaded with her to be patient with the surgical team and to follow our instructions. She refused.I reminded her that I had this conversation before her right leg surgery. I reminded her that if shedoesn't do everything we tell her that her bypass could get infected, she could lose her leg and even her life. She persisted in leaving AMA as she wants her suboxone at home. She was alert and oriented to self, time, and place. With me at the was my residential caregiver Dr. Vj Savage as well. Will be placing an urgent psyche consult to confirm her state of mind. lan of Care - Cecilia Leach RN - 07/06/2017 0325 EST Problem: Daily Care Plan Goals Goal: Care Plan Documentation Outcome: Ongoing 07/05/172031 Care Plan Focus Area of Focus Pain/ Comfort Goal This Shift Stable hemodynamics, pain adequately managed, cluster care to promote rest overnight Data:?? -Pt admitted on 06/28/17. Pt is now POD#7, s/p R EIA to SFA obturator bypass for infected groin with prior substance abuse. Pt being followed by [facility] Service this shift with ID consulting. Full Code.NKDA. ? Action: See doc flowsheets and eMAR. ? Response: -VSS, Afebrile -Transitioned from ASBESTOS REMOVER to oral dilaudid and tizanidine -PICC remains in place with ASBESTOS REMOVER infusing per MD orders -R groin dressing in place. Other incisions are [employer]UCER ? PLAN: -Will need meeting with Case Management in AM prior to D/C if plan is to D/C pt to home and not [facility](? Wound/dressing changes, narcotic management, and abx management) -D/C later this AM once PICC is removed -Will continue on Daptomycin ? 0416-Pt requesting meds- more Dilaudid, Ativan, Zofran. /Linda aware. Zofran x1 given per orders. 0545-Pt upset. Wanting to see MD. Wanting more meds for pain. /Linda aware. Also refusing teleMD aware. Cecilia Leach RN 07/06/2017 3:23 lan of Care - Marsha Mark RN - 07/05/2017 1426 EST Problem: Daily Care Plan Goals Goal: Care Plan Documentation Outcome: Met This Shift 07/05/17 1400 Care Plan Focus Area of Focus Pain/ Comfort Goal This Shift pt will be able to maintain acceptable pain level Pt with adequate pain control and increased mobility. Prepare pt for d/c over next 24 hr. D/C ASBESTOS REMOVER. lan of Care - Cecilia Leach RN - 07/05/2017 0618 EST Problem: Daily Care Plan Goals Goal: Care Plan Documentation Outcome: Ongoing 07/04/17 2122 Care Plan Focus Area of Focus Pain/ Comfort Goal This Shift Stable hemodynamics, pain adequately managed, cluster care to promote rest overnight (Stable hemodynamics, pain adequately managed) Data: -Pt admitted on 06/28/17. Pt is now POD# 6, s/p R EIA to SFA obturator bypass for infected groin with prior substance abuse. Pt being followed by Vas Surg Service this shift with ID consulting. Full Code. NKDA. ? Action: See doc flowsheets and eMAR. ?? Response: -VSS, Afebrile -States pain is much more tolerable since wound vac removed and ASBESTOS REMOVER restarted. My pain is 2-4/10 and I can walk around now -States she will be leaving AMA later today if she is not D/C'd home. [place] [facility] [place]/IV abx. -Slept majority of shift -PICC remains in place with ASBESTOS REMOVER infusing per MD orders ? -PLAN: Course uncertain at this time... Concern for new fevers and tachycardia on evening of 07/03. D/C placed on hold yesterday in the setting of such. -Would suggest another meeting with Case Management in AM to re-evaluate goals of care and D/C plan. ? Cecilia Leach RN 07/04/2017 4:00 lan of Care - Cecilia Leach RN - 07/04/2017 0411 EST Problem: Daily Care Plan Goals Goal: Care Plan Documentation Outcome: Ongoing 07/03/17 2041 Care Plan Focus Area of Focus Circulatory Status Goal This Shift Stable hemodynamics, pain adequately managed, cluster care to promote rest overnight Data: -Pt admitted on 06/28/17. Pt is now POD#5, s/p R EIA to SFA obturator bypass for infected groin with prior substance abuse. Pt being followed by Vas Surg Service this shift. Full Code. NKDA. ? Action: See doc flowsheets and eMAR. ?? Response: -Febrile overnight with tmax to 39.0 -Tachycardic to 120's (EKG unremarkable) -CXR (-) -UA and Drug Tox per orders, UA (-) -Nausea, Zofran x2 -Pain, continues to get PO Dilaudid prn -CT -Mg repleated -PICC, Continues on IV Vanc -Wound Vac ?? -PLAN: Course uncertain at this time... Concern for new fevers and tachycardia -D/C Plan continues to discuss [facility] for continued IV abx ? Cecilia Leach RN 07/04/2017 4:00 Cecilia Leach RN 07/04/2017 4:00 lan of Care - Nuvia Baird RN - 07/03/2017 1059 EST Problem: Daily Care Plan Goals Goal: Care Plan Documentation Outcome: Ongoing 07/03/17 0820 Care Plan Focus Area of Focus Pain/ Comfort Goal This Shift pt's pain will be adequately managed Data: Pt is POD #4 s/p R EIA to SFA bypass. Pt reporting pain as a 4/10 for most of shift. Pt's dilaudid ASBESTOS REMOVER was d/c'd today, and was switched to PO dilaudid 2- 4 mg. Pt c/o increased pain this afternoon. Action: Pt received prn 4mg dilaudid Q4 (see eMAR) as well as scheduled tylenol. Team was notified when pt reported pain as a 6/10. PO dilaudid increased to 2- 5mg (see eMAR). Response: Pt requested pain medications 2 hrs prior to when they were due. Pt reported an increase in pain the longer she was without the dilaudid ASBESTOS REMOVER. Continue to monitor and assess. Mariposa Melendez 07/03/2017 16:50 lan of Care - Lin López RN - 07/03/2017 0350 EST Problem: Daily Care Plan Goals Goal: Care Plan Documentation 07/03/17 0302 Care Plan Focus Area of Focus Sleep Goal This Shift pt will get sleep Data: Patient is POD #4. Patient is A+OX3, on room air, is voiding without issue, is on a clear liquid, is using a dilaudid ASBESTOS REMOVER for pain control, and is able and willing to make needs known. Action: Care clustered throughout shift to promote optimal rest. Pt using ASBESTOS REMOVER properly for pain control and is also taking scheduled tylenol as charted in JUN. Response: Pt sleeping comfortably for much of night. Call light remains in reach. Will continue to monitor and assess. Lin López RN 07/03/2017 3:42 lan of Care - Boby Gaines RN - 07/02/2017 1641 EST Problem: Daily Care Plan Goals Goal: Care Plan Documentation Outcome: Ongoing 07/02/17 0750 Care Plan Focus Area of Focus Pain/ Comfort Goal This Shift pt will have adequate pain management this shift Data: Pt POD#3 s/p R EIA to SFA bypass. Pt reporting pain 6-8/10. Has a dilaudid ASBESTOS REMOVER 0.5/01/30 and ketamine running at 15 mg/hr. Action: Ketamine reduced to 10 mg/hr, and later d/c'd. Encouraged change in positioning. Administered scheduled tylenol. Response: Pt continues to endorse pain of 6/10, but adequate pain control. Will continue to monitor. Boby Gaines RN 07/02/2017 16:38 nesthesia Post-Eval - Sourav Trujillo CRNA - 07/02/2017 0958 EST Anesthesia Post op Note Lindsay Jean Baptiste [id number] Anesthesia received: General; Vital Signs: Temp: 35.9 ??C (96.6 ??F), Heart Rate: 81 BPM, BP: 113/79, Resp: 18, SpO2: 100 % Vital signs Stable: Yes Consciousness: Recovered to baseline Patient's participation in evaluation:Able to participate Temperature Status: Normothermic Respiratory Status: Airway patent Supplemental O2: Room air Oxygen Saturation: Appropriate for condition Cardiovascular Status: Appropriate for condition Post-op Hydration: Adequate Nausea / Vomiting: None Pain Control: Adequate Current Pain Score: Numeric Pain Level (Scale 1-10): 7, Adult Nonverbal Pain ScaleTotal: 3 Post-op Assessment: Tolerated procedure well Disposition: Inpatient Complications: No apparent anesthetic complications Sourav Trujillo CRNA 07/02/2017 9:58 lan of Care - Kyle Du RN - 07/02/2017 0324 EST Problem: Daily Care Plan Goals Goal: Care Plan Documentation Outcome: Met This Shift 07/02/17 0323 Care Plan Focus Area of Focus Pain/ Comfort Goal This Shift pain control Pain Note D - The patient reported pain. The reported pain location was surgical sites A - Pain was assessed and treated with medication ordered as per orders. The pain management techniques were effective R - Denies the need for further intervention. Will continue to assess and treat pain levels as per policy and prn. 07/02/2017 3:23 Kyle Du RN lan of [facility] - Mariposa Melendez - 07/01/2017 1701 EST Problem: Daily Care Plan Goals Goal: Care Plan Documentation Outcome: Met This Shift 07/01/17 1000 07/01/17 1656 Care Plan Focus Area of Focus Mobility -- Goal This Shift -- OOB to chair Data: Pt is a 36 y.o. female POD#2 s/p R groin exploratory and ligation of R femoral pseudoaneurysm.Dawn was pulled today around 1130. The pt was ordered for progressive ambulation. Action: Encouraged ambulation to commode. Encouraged ambulation in membreno with physical therapist, andpt ambulated 90 feet in the membreno with a rolling walker. Response: Pt tolerated ambulation fairly well. Pt independently goes to commode when needed. [facility] 07/01/2017 16:56 lan of Care - Winnie Jacob RN - 07/01/2017 1451 EST Problem: Daily Care Plan Goals Goal: Care Plan Documentation Outcome: Met This Shift 07/01/17 1000 07/01/17 1449 Care Plan Focus Area of Focus Mobility -- Goal This Shift -- ambulate in membreno Ambulation Note D - This is a(n) 36 y.o. female S/P vascular surgery. This is post-op day 2 for the patient. The patient is ordered for progressive ambulation. A - The patient was ambulated 90 [address] hallway using rolling walker with PT and nursing. R - The patient displayed no MOBLEY. Will continue to encourage activity as ordered and tolerated. 07/01/2017 14:50 Winnie Jacob RN lan of Care - Alpa Dinero RN - 07/01/2017 0335 EST Problem: Daily Care Plan Goals Goal: Care Plan Documentation Outcome: Met This Shift 06/30/172022 Care Plan Focus Area of Focus Pain/ Comfort Goal This Shift adequate pain control Data: 36 y/o pt POD#2 s/p R groin exploratory and ligation of R femoral pseudoaneurysm. VSS. On teleNSR 80s. ASBESTOS REMOVER dilaudid 0.5/10/3. Ketamine gtt @ 15mg/hr. IV tylenol 1000mg q6h. Pt NPO w/ NGT to LCWSalthough pt accidentally pulled out NGT while sleeping. Dawn in place draining adequate amt of clear yellow urine. Pt has not passed flatus yet. Reporting pain in R groin/abdomen/incisional area 10/07. Action: MD notified of NGT removal. MD to bedside to assess. Plan to keep NGT out unless N/V occurs.Remains NPO. 1mg ativan IV per orders for sleep/comfort. Assisted w/ repositioning PRN. Response: Pt able to sleep adequately throughout the night. Reports decrease in pain 08/07. Denies the need for further intervention. Continuing to monitor. Alpa Dinero RN 07/01/2017 3:25 lan of Care - Winnie Jacob RN - 06/30/2017 1721 EST Problem: Daily Care Plan Goals Goal: Care Plan Documentation Outcome: Met This Shift 06/30/17 1449 Care Plan Focus Area of Focus Other Goal This Shift admit and settle Admission Note D - This is a(n) 36 y.o. female who is being transfered from SICU This is post-op day 1 for the patient. Patient is status-post vascular surgery. A - Vital signs taken. Patient oriented to unit and room. Call light and bed use reviewed. Call light within reach, bed placed in low position and table at bedside. Room is free of clutter. ASBESTOS REMOVER and ketamin gtt confirmed at MAR rates. Repositioned. Vanco trough and h/h drawn per orders. R - Continue to assess and monitor patient. Vanco noted to be subtherapeutic. Patient expresses no unmet needs at this time. 06/30/2017 17:19 Winnie Jacob RN lan of [place] - Sonya Bucio RN - 06/30/2017 0636 EST Problem: Daily Care Plan Goals Goal: Care Plan Documentation Outcome: Ongoing 06/29/17 1900 Care Plan Focus Area of Focus Pain/ Comfort Goal This Shift Adequate pain relief Data: Patient with high pain threshold. Received on Ketamine infusion and Dilaudid ASBESTOS REMOVER for pain control. Rating pain high of 8-9/10 on pain scale. Mostly generalized or to right leg, or sore throat. Action: IV Tylenol added into pain regime. Repositioning to comfort. Throat spray PRN ordered. Response: Pain slightly improved with current interventions. Using ASBESTOS REMOVER more appropriately. Continue to monitor SONYA BUCIO RN 06/30/2017 6:33 rief Op Note - Diego Gabriel MD - 06/29/2017 1218 EST Brief Op Note Date of Operation: 06/29/2017 Preop Dx: Infected R Femoral PSA Postop Dx: Same Anesthesia: General Procedure: 1. R EIA-SFA Obturator Bypass using 6mm PTFE 2. Exploration of R Femoral Artery with Ligation of R Femoral PSA Attending Surgeon: Dr. Doe Li [employer] Technician: Dr. Gene Hopper Description: 6mm ring-enforced PTFE Complications: None Apparent IVF: 3.5L Crystalloid, 2U PRBC EBL: 800cc UOP: 830c Condition Postop: Stable in ICU Disposition: Admit to ICU, SBP 90-160, ASA 300mg NM 1. Neuro: Pain control with ASBESTOS REMOVER and Ketamine infusion with APS consultation. 2. CV: SBP 90-160 3. Pulm: Aggressive pulm toilet with IS 4. Renal/Endo: Continue dawn, full complement of labs. 5. FEN: MIVF @ 100cc/h 6. GI: NPO, NGT, IV PPI 7. Heme: ASA 300mg NM, hold DVT PPx 8. ID: Continue ATBx and f/u intraoperative cx. Diego Gabriel M.D. Vascular Surgery Fellow ([id number]) lan of Care - Maddie Herron, RN - 06/29/2017 1013 EST Problem: Cardiac: Goal: Ability to maintain clinical measurements within defined limits will improve Data: stable vs ks Action: monitor ks Response: stable vs ks Maddie Herron RN 06/29/2017 10:12 lan of Care - Charissa Bowman RN - 06/29/2017 0511 EST Problem: Daily Care Plan Goals Goal: Care Plan Documentation Data: No acute events over night. Action: Pt is NPO. Neurovascular checks unchanged. Response: Plan for OR today. Charissa Bowman RN 06/29/2017 5:11 lan of Care - Lory Valdez RN - 06/28/2017 1623 EST Problem: Daily Care Plan Goals Goal: Care Plan Documentation Outcome: Ongoing 06/28/17 1602 Care Plan Focus Area of Focus Circulatory Status Goal This Shift Monitor R groin site and RLE Data: Pt HD#0 after arriving as a transfer from [facility] with infected right femoral artery pseudoaneurysm with plan for bypass surgery tomorrow. Action: Q1h monitoring of R groin site and RLE CSMT. R groin site is packed and dressed with gauze and order to keep in place despite small strikethrough serosanguinous drainage on dressing. Heparin gtt infusing. Pt rating low levels of pain and tylenol and ibuprofen available. QD suboxone given this AM. Pt has multiple ulcerations to BLE. L fingers contracted. Response: RLE palpable pulses, pale, and cool. LORY VALDEZ RN 06/28/2017 16:18 lan of Care - Ion Darling RN - 06/28/2017 1525 EST Problem: Daily Care Plan Goals Goal: Care Plan Documentation 06/28/17 1045 Care Plan Focus Area of Focus Communication Goal This Shift Admit and acclimate to unit Admission Note D - This is a(n) 36 y.o. female who is being transfered [place] [facility] This is post-op day (HD#1) for the patient. Patient is pre-op vascular surgery. A - Vital signs taken. Patient oriented to unit and room. Call light and bed use reviewed. Call light within reach, bed placed in low position and table at bedside. Room is free of clutter. R - Continue to assess and monitor patient. 06/28/2017 15:25 Ion Darling RN documented in this encounter Plan of Treatment Pending Results Name Type Priority Associated Diagnoses Date/Ti me VL VEIN MAPPING Imaging Routine 06/28/2017 1 3:20 EST BILATERAL TRANSFUSE RED BLOOD Transfuse Routine 07/02/19 18 10:21 EST CELLS Scheduled Referrals Name Type Priority Associated Diagnoses Order S chedule AMB CONS/FOLLOW Outpatient Referral Routine Pseudoaneurysm of Ordered: [facility] femoral artery 07/09/2017 SERVICES ([facility]) documented as of this encounter Procedures Procedure Name Priority Date/Time Associated Comments Diagnosis IMPLANT RECORD - SCANNED 07/11/2017 8:46 EDT ECG REPORT - SCANNED 07/11/2017 8:45 EDT ECG REPORT - SCANNED 07/11/2017 8:45 EDT TRANSFUSION RECORD - 07/11/2017 8:45 SCANNED EDT PATHOLOGY - SCANNED 07/11/2017 8:45 EDT ECG REPORT - SCANNED 07/09/2017 11:21 EDT IMPLANT RECORD - SCANNED 07/06/2017 14:56 EST COMPLETE BLOOD COUNT AND Routine 07/06/2017 5:29 Results for this DIFFERENTIAL EST procedure are i n the results section. ECHOCARDIOGRAM Routine 07/05/2017 8:55 Results fo r this EST procedure are i n the results section. COMPLETE BLOOD COUNT AND Routine 07/05/2017 6:03 Results for this DIFFERENTIAL EST procedure are i n the results section. HCV RNA QUANT WITH Routine 07/04/2017 14:55 Resul ts for this REFLEX TO GENOTYPE EST procedure are in the results section. GENOTYPE Routine 07/04/2017 14:55 Results for this EST procedure are i n the results section. HIV 1/2 ANTIGEN AND Routine 07/04/2017 14:55 Resu lts for this ANTIBODY, 4TH GENERATION EST pro cedure are in the results section. C REACTIVE PROTEIN Routine 07/04/2017 14:55 Resul ts for this EST procedure are i n the results section. CK Routine 07/04/2017 14:55 Results for this EST procedure are i n the results section. INPATIENT ADD-ON Routine 07/04/2017 7:40 Results for this EST procedure are i n the results section. COMPLETE BLOOD COUNT AND Routine 07/04/2017 4:45 Results for this DIFFERENTIAL EST procedure are i n the results section. CT ANGIO RUNOFF W/WO STAT 07/04/2017 1:45 Resu lts for this CONTRAST EST procedure are i n the results section. BACTERIAL CULTURE, BLOOD Routine 07/03/2017 23:40 Results for this EST procedure are i n the results section. INPATIENT ADD-ON STAT 07/03/2017 22:05 Results for this EST procedure are i n the results section. BACTERIAL CULTURE, BLOOD Routine 07/03/2017 21:20 Results for this EST procedure are i n the results section. PORTABLE CHEST 1 VIEW STAT 07/03/2017 21:17 Re sults for this EST procedure are i n the results section. EKG 12-LEAD Routine 07/03/2017 21:00 Results for this EST procedure are i n the results section. HOLD LAVENDER TOP Routine 07/03/2017 20:59 Result s for this EST procedure are i n the results section. CALCIUM, IONIZED Routine 07/03/2017 20:59 Results for this EST procedure are i n the results section. TROPONIN I Routine 07/03/2017 20:59 Results for this EST procedure are i n the results section. COMPLETE BLOOD COUNT AND Routine 07/03/2017 20:59 Results for this DIFFERENTIAL EST procedure are i n the results section. BUN Routine 07/03/2017 20:59 Results for this EST procedure are i n the results section. MAGNESIUM Routine 07/03/2017 20:59 Results for this EST procedure are i n the results section. CREATININE Routine 07/03/2017 20:59 Results for this EST procedure are i n the results section. ELECTROLYTES Routine 07/03/2017 20:59 Results for this EST procedure are i n the results section. TRICYCLIC Routine 07/03/2017 20:45 Results for this ANTIDEPRESSANTS SCREEN, EST proc edure are in URINE the results section. PHENCYCLIDINE (PCP) Routine 07/03/2017 20:45 Resu lts for this SCREEN, URINE EST procedure are in the results section. DRUG SCREEN 11, URINE Routine 07/03/2017 20:45 Re sults for this EST procedure are i n the results section. URINE CULTURE IF Routine 07/03/2017 20:45 Results for this POSITIVE EST procedure are i n the results section. URINE CHEMICAL (DIP) & Routine 07/03/2017 20:45 R esults for this SEDIMENT (MICRO) WITHOUT EST pro cedure are in REFLEX TO CULTURE the result s section. INPATIENT ADD-ON Routine 07/03/2017 18:10 Results for this EST procedure are i n the results section. COMPLETE BLOOD COUNT AND Routine 07/03/2017 6:00 Results for this DIFFERENTIAL EST procedure are i n the results section. BUN Routine 07/03/2017 6:00 Results for this EST procedure are i n the results section. ALT Routine 07/03/2017 6:00 Results for this EST procedure are i n the results section. AST Routine 07/03/2017 6:00 Results for this EST procedure are i n the results section. ALKALINE PHOSPHATASE Routine 07/03/2017 6:00 Resu lts for this EST procedure are i n the results section. CREATININE Routine 07/03/2017 6:00 Results for this EST procedure are i n the results section. ELECTROLYTES Routine 07/03/2017 6:00 Results for this EST procedure are i n the results section. VANCOMYCIN TROUGH Routine 07/02/2017 17:50 Result s for this EST procedure are i n the results section. IR PICC - REFER TO IV Routine 07/02/2017 16:30 Re sults for this THERAPY FIRST EST procedure are in the results section. ECG REPORT - SCANNED 07/02/2017 13:33 EST INPATIENT ADD-ON Routine 07/02/2017 11:55 Results for this EST procedure are i n the results section. TROPONIN I Routine 07/02/2017 6:28 Results for this EST procedure are i n the results section. COMPLETE BLOOD COUNT AND Routine 07/02/2017 6:28 Results for this DIFFERENTIAL EST procedure are i n the results section. BUN Routine 07/02/2017 6:28 Results for this EST procedure are i n the results section. ALT Routine 07/02/2017 6:28 Results for this EST procedure are i n the results section. AST Routine 07/02/2017 6:28 Results for this EST procedure are i n the results section. ALKALINE PHOSPHATASE Routine 07/02/2017 6:28 Resu lts for this EST procedure are i n the results section. CREATININE Routine 07/02/2017 6:28 Results for this EST procedure are i n the results section. ELECTROLYTES Routine 07/02/2017 6:28 Results for this EST procedure are i n the results section. COMPLETE BLOOD COUNT Routine 07/01/2017 17:42 Res ults for this EST procedure are i n the results section. TROPONIN I Routine 07/01/2017 5:55 Results for this EST procedure are i n the results section. COMPLETE BLOOD COUNT AND Routine 07/01/2017 5:55 Results for this DIFFERENTIAL EST procedure are i n the results section. BUN Routine 07/01/2017 5:55 Results for this EST procedure are i n the results section. CREATININE Routine 07/01/2017 5:55 Results for this EST procedure are i n the results section. ELECTROLYTES Routine 07/01/2017 5:55 Results for this EST procedure are i n the results section. COMPLETE BLOOD COUNT Routine 06/30/2017 15:50 Res ults for this EST procedure are i n the results section. VANCOMYCIN TROUGH Routine 06/30/2017 15:50 Result s for this EST procedure are i n the results section. COMPLETE BLOOD COUNT AND Routine 06/30/2017 10:27 Results for this DIFFERENTIAL EST procedure are i n the results section. COMPLETE BLOOD COUNT AND Routine 06/30/2017 6:24 Results for this DIFFERENTIAL EST procedure are i n the results section. ELECTROLYTES Routine 06/30/2017 6:24 Results for this EST procedure are i n the results section. TROPONIN I Routine 06/30/2017 1:49 Results for this EST procedure are i n the results section. COMPLETE BLOOD COUNT AND Routine 06/30/2017 1:49 Results for this DIFFERENTIAL EST procedure are i n the results section. BUN Routine 06/30/2017 1:49 Results for this EST procedure are i n the results section. CREATININE Routine 06/30/2017 1:49 Results for this EST procedure are i n the results section. ELECTROLYTES Routine 06/30/2017 1:49 Results for this EST procedure are i n the results section. HEMATOCRIT Routine 06/29/2017 21:49 Results for this EST procedure are i n the results section. SLIDE REQUEST Routine 06/29/2017 17:07 Results fo r this EST procedure are i n the results section. HEMATOCRIT Routine 06/29/2017 17:07 Results for this EST procedure are i n the results section. SCREENING GLUCOSE Routine 06/29/2017 13:17 Result s for this EST procedure are i n the results section. CALCIUM, IONIZED Routine 06/29/2017 13:17 Results for this EST procedure are i n the results section. COMPLETE BLOOD COUNT AND Routine 06/29/2017 13:17 Results for this DIFFERENTIAL EST procedure are i n the results section. BUN Routine 06/29/2017 13:17 Results for this EST procedure are i n the results section. PHOSPHORUS Routine 06/29/2017 13:17 Results for this EST procedure are i n the results section. MAGNESIUM Routine 06/29/2017 13:17 Results for this EST procedure are i n the results section. CREATININE Routine 06/29/2017 13:17 Results for this EST procedure are i n the results section. ELECTROLYTES Routine 06/29/2017 13:17 Results for this EST procedure are i n the results section. ANAEROBE Routine 06/29/2017 11:49 Results for this CULTURE/SMEAR(INC. EST procedure are in AEROBES), TISSUE the results section. BLOOD GAS, CG8 ISTAT Routine 06/29/2017 11:03 Res ults for this EST procedure are i n the results section. ACT, CELITE ISTAT Routine 06/29/2017 10:37 Result s for this EST procedure are i n the results section. ACT, CELITE ISTAT Routine 06/29/2017 10:28 Result s for this EST procedure are i n the results section. ABO/RH Routine 06/29/2017 9:59 Results for this EST procedure are i n the results section. ACT, CELITE ISTAT Routine 06/29/2017 9:45 Results for this EST procedure are i n the results section. PREPARE PLASMA Routine 06/29/2017 9:36 Results fo r this EST procedure are i n the results section. PREPARE PLASMA Routine 06/29/2017 9:36 Results fo r this EST procedure are i n the results section. PREPARE PLASMA Routine 06/29/2017 9:36 Results fo r this EST procedure are i n the results section. PREPARE PLASMA Routine 06/29/2017 9:36 Results fo r this EST procedure are i n the results section. PREPARE RED BLOOD CELLS Routine 06/29/2017 9:36 R esults for this EST procedure are i n the results section. PREPARE RED BLOOD CELLS Routine 06/29/2017 9:36 R esults for this EST procedure are i n the results section. BLOOD GAS, CG8 ISTAT Routine 06/29/2017 9:23 Resu lts for this EST procedure are i n the results section. PREPARE RED BLOOD CELLS Routine 06/29/2017 9:22 R esults for this EST procedure are i n the results section. PREPARE RED BLOOD CELLS Routine 06/29/2017 9:22 R esults for this EST procedure are i n the results section. PREPARE RED BLOOD CELLS Routine 06/29/2017 9:22 R esults for this EST procedure are i n the results section. PREPARE RED BLOOD CELLS Routine 06/29/2017 9:22 R esults for this EST procedure are i n the results section. ACT, CELITE ISTAT Routine 06/29/2017 8:47 Results for this EST procedure are i n the results section. CALCIUM, IONIZED Routine 06/29/2017 3:18 Results for this EST procedure are i n the results section. HEPARIN LEVEL - STAT 06/29/2017 3:18 Results f or this UNFRACTIONATED HEPARIN EST proce dure are in the results section. COMPLETE BLOOD COUNT AND Routine 06/29/2017 3:18 Results for this DIFFERENTIAL EST procedure are i n the results section. BUN Routine 06/29/2017 3:18 Results for this EST procedure are i n the results section. PHOSPHORUS Routine 06/29/2017 3:18 Results for this EST procedure are i n the results section. MAGNESIUM Routine 06/29/2017 3:18 Results for this EST procedure are i n the results section. CREATININE Routine 06/29/2017 3:18 Results for this EST procedure are i n the results section. ELECTROLYTES Routine 06/29/2017 3:18 Results for this EST procedure are i n the results section. EKG 12-LEAD Routine 06/28/2017 20:43 Results for this EST procedure are i n the results section. MRSA PCR Routine 06/28/2017 16:53 Results for this EST procedure are i n the results section. HEPARIN LEVEL - STAT 06/28/2017 16:49 Results for this UNFRACTIONATED HEPARIN EST proce dure are in the results section. TYPE AND SCREEN Routine 06/28/2017 16:45 Results for this EST procedure are i n the results section. PREPARE RED BLOOD CELLS Routine 06/28/2017 16:27 Results for this EST procedure are i n the results section. PREPARE RED BLOOD CELLS Routine 06/28/2017 16:27 Results for this EST procedure are i n the results section. BACTERIAL CULTURE, BLOOD Routine 06/28/2017 12:55 Results for this EST procedure are i n the results section. CALCIUM, IONIZED Routine 06/28/2017 12:32 Results for this EST procedure are i n the results section. COMPLETE BLOOD COUNT AND Routine 06/28/2017 12:32 Results for this DIFFERENTIAL EST procedure are i n the results section. BUN Routine 06/28/2017 12:32 Results for this EST procedure are i n the results section. PHOSPHORUS Routine 06/28/2017 12:32 Results for this EST procedure are i n the results section. MAGNESIUM Routine 06/28/2017 12:32 Results for this EST procedure are i n the results section. TEST, URINE Routine 06/28/2017 12:30 Re sults for this EST procedure are i n the results section. LAB URINE CHEMICAL (DIP) Routine 06/28/2017 12:25 Results for this - DOES NOT REFLEX EST procedure are in the results section. URINE CULTURE IF Routine 06/28/2017 12:25 Results for this POSITIVE EST procedure are i n the results section. documented in this encounter Results TRANSFUSION RECORD - SCANNED (07/11/2017 8:45 EDT) Specimen Narrative This result has an attachment that is no t available. PATHOLOGY - SCANNED (07/11/2017 8:45 EDT) Specimen Narrative This result has an attachment that is no t available. (ABNORMAL) HEMAGRAM AND DIFFERENTIAL (07/06/2017 5:29 EST) Pathologist Sig nature WBC 6.94 4.0 - 12.4 [facility] LABORATORY SERVICES RBC 3.15 (L) 3.86 - 5.04 [facility] LABORATORY SERVICES Hemoglobin 8.8 (L) 11.6 - 15.2 [facility] gm/dl LABORATORY SERVICES HCT 27.0 (L) 34.9 - 44.4 % [facility] LABORATORY SERVICES MCV 86 81 - 98 fl [facility] LABORATORY SERVICES MCH 27.9 26.7 - 33.3 pg [facility] LABORATORY SERVICES MCHC 32.6 32.1 - 35.9 [facility] gm/dl LABORATORY SERVICES RDW-CV 13.8 <14.7 % [facility] LABORATORY SERVICES RDW-SD 42.8 <50.4 fl [facility] LABORATORY SERVICES PLT 431 (H) 141 - 377 K/cmm [facility] LABORATORY SERVICES MPV 10.2 9.5 - 12.7 fl [facility] LABORATORY SERVICES Neutrophils 79.7 % [facility] LABORATORY SERVICES Lymphocytes 11.2 % [facility] LABORATORY SERVICES Monocytes 6.2 % [facility] LABORATORY SERVICES Eosinophils 1.6 % [facility] LABORATORY SERVICES Basophils 0.4 % [facility] LABORATORY SERVICES Immature Grans 0.9 % [facility] LABORATORY SERVICES ABS Neutrophils 5.53 2.20 - 8.85 [facility] LABORATORY SERVICES ABS Lymphs 0.78 (L) 1.09 - 3.30 [facility] LABORATORY SERVICES ABS Monocytes 0.43 0.1 - 0.8 K/cmm [facility] LABORATORY SERVICES ABS Eosinophils 0.11 0.03 - 0.61 [facility] LABORATORY SERVICES ABS Basophils 0.03 0.01 - 0.11 [facility] LABORATORY SERVICES ABS Immature Grans 0.06 0 - 0.06 /[facility] LABORATORY SERVICES Type of Diff: Automated [facility] LABORATORY SERVICES Specimen Blood specimen (specimen) - Blood Performing Organization Address City/State/[facility] Code Phon e Number [facility] LABORATORY [address] [place] [address] SERVICES ECHOCARDIOGRAM (07/05/2017 8:55 EST) Specimen Narrative [facility] CARDIOLOGY MAIN [facility] S - 07/05/2017 9:25 EST *Interpreting Group:* *[facility]* [address] [place], [place] [id number] Date of study: 07/05/2017 Transthoracic Echocardiography M-mode, complete 2D, complete spectral D oppler, and color Doppler *STUDY CONCLUSIONS* Impressions: ??No evidence of endocardit is by transthoracic echo. Summary: 1. Left ventricle: The cavity size was n ormal. Wall thickness was ?? normal. Systolic function was normal . The estimated ejection fraction ?? was 60-65%. Wall motion was normal; there were no regional wall ?? motion abnormalities. 2. Right ventricle: The cavity size was normal. Wall thickness was ?? normal. Systolic function was normal . *PATIENT PRESENTATION* Height: ? 165.1cm ((65in) ) S/D Pressure: 102 / 63 Weight: ? 61.7kg ((135.7lb) ) BSA: ?1.69m^2 Test start time: ??08:19 AM. Test stop time: ??08:42 AM. SUPPLY CHAIN DIRECTOR ??Alpa Toney RDCS ORDERING ? Charlette Dee MD ADMITTING ?Grzegorz Ramos ATTENDING ?Grzegorz Ramos PERFORMING ?? [facility], REFERRING ?Anti Suzie Gastelum SUPPLY CHAIN DIRECTOR ??Sade Barajas *PROCEDURE DATA* Procedure information: ??The patient was identified by two identifiers. This study was interpreted by The [facility]. Pertinent images and digital data are archived for permanent storage and are available for subsequent review. ??Study status: Routine. Transthoracic echocardiography. ??M-mode, complete 2D, complete spectral Doppler, and color Doppler. A T ransthoracic Echocardiogram was performed. Scanning was performed from t he parasternal, apical, subcostal, and suprasternal notch acoust ic windows. Images were obtained using an Epiq 13 cardiac ultrasound mach ine. Image quality was good. Study completion: ??The patient tolerate d the procedure well. *INDICATIONS AND HISTORY* Indications: ?? Tachycardia (R00.0), heathero wn, pre-procedure. *CARDIAC ANATOMY* Left ventricle: ??The cavity size was no rmal. Wall thickness was normal. Systolic function was normal. The estima isabel ejection fraction was 60-65%. Wall motion was normal; there we re no regional wall motion abnormalities. Diastolic parameters were normal. Aortic valve: ?? Trileaflet; normal thic kness leaflets. Mobility was not restricted. ??Doppler: ??Transvalvular v elocity was within the normal range. There was no stenosis. There was no significant regurgitation. Aorta: ??Aortic root: The aortic root wa s normal in size. Mitral valve: ?? Structurally normal lili ve. ?? Mobility was not restricted. ??Doppler: ??Transvalvular v elocity was within the normal range. There was no evidence for stenosi s. There was trivial regurgitation. ?Peak gradient (D): 2 .8mm Hg. Left atrium: ??The atrium was normal in size. Right ventricle: ??The cavity size was n ormal. Wall thickness was normal. Systolic function was normal. Pulmonic valve: ?Doppler: ??Transval vular velocity was within the normal range. There was no evidence for stenosis. There was no significant regurgitation. Tricuspid valve: ?? Structurally normal valve. ?Doppler: ??Transvalvular velocity was within the normal range. Th ere was no evidence for stenosis. There was mild regurgitation. Pulmonary artery: ?? Pulmonary systolic pressure was within the normal range, in the range of 25mm Hg to 30mm H g. Right atrium: ??The atrium was normal in size. Catheter tip noted in right atrium. Pericardium: ??There was no pericardial effusion. Systemic veins: Inferior vena cava: The vessel was purvi l in size. Measurements Left ventricle ? Value ?Reference LV ID, ED, PLAX ?4.5 ?? cm ? 3.5 - 6.0 LV ID, ES, PLAX ?2.5 ?? cm ? 2.1 - 4.0 LV PW thickness, ED, PLAX ?1.1 ?? cm ? LV end-diastolic volume, 1-p A2C ? 86 ?ml ? LV ejection fraction, 1-p A2C ?64 ?% ? LV end-diastolic volume, 1-p A4C ? 85 ?ml ? LV ejection fraction, 1-p A4C ?67 ?% ? LV IVRT, DP ?63 ?ms ? 60 - 100 LV e', lateral ? 0.147 m/sec ?? LV E/e', lateral ? 6 ? LV e', medial ?0.1 ?? m/sec ?? LV E/e', medial ?8 ? LV e', average ? 0.124 m/sec ?? LV E/e', average ? 7 ? Ventricular septum ? Value ?Reference IVS thickness, ED, PLAX ?0.8 ?? cm ? Aorta ?Value ?Reference Aortic root ID ? 2.4 ?? cm ? Ascending aorta ID, A-P ?2.8 ?? cm ? Ascending aorta ID, A-P, S ? 2.8 ?? cm ? Left atrium ?Value ?Reference LA ID, A-P, ES ? 3.4 ?? cm ? LA ID/bsa, A-P ? 2.0 ?? cm/m^2 <=2.2 LA area, ES, A4C ? 15.9 ??cm^2 ?? 8.8 - 23.4 LA area, ES, A2C ? 17 ?cm^2 ?? LA volume, ES, 2-p ? 40 ?ml ? LA volume/bsa, ES, 2-p ? 24 ?ml/m^2 LA/aortic root ratio ? 1.42 ? Mitral valve ? Value ?Reference Mitral E-wave peak velocity ?0.84 ??m/sec ?? Mitral A-wave peak velocity ?0.51 ??m/sec ?? Mitral deceleration time ? 229 ?? ms ? 150 - 230 Mitral peak gradient, D ?2.8 ?? mm Hg ?? Mitral E/A ratio, peak ? 1.6 ? Legend: (L) ??and ??(H) ??arnold values outside sp ecified reference range. I have personally reviewed the images an d have reviewed and edited the reported findings. Electronically signed by Rikki Dobbins MD 07/05/2017 09:25 Procedure Note Rikki Dobbins MD - 07/05/2017 *Interpreting Group:* *[facility]* [address] [place] [address] Date of study: 07/05/2017 Transthoracic Echocardiography M-mode, complete 2D, complete spectral D oppler, and color Doppler *STUDY CONCLUSIONS* Impressions: No evidence of endocarditis by transthoracic echo. Summary: 1. Left ventricle: The cavity size was n ormal. Wall thickness was normal. Systolic function was normal. T estimated ejection fraction was 60-65%. Wall motion was normal; the re were no regional wall motion abnormalities. 2. Right ventricle: The cavity size was normal. Wall thickness was normal. Systolic function was normal. *PATIENT PRESENTATION* Height: 165.1cm ((65in) ) S/D Pressure: 102 / 63 Weight: 61.7kg ((135.7lb) ) BSA: 1.69m^2 Test start time: 08:19 AM. Test stop time: 08:42 AM. SUPPLY CHAIN DIRECTOR Alpa Toney JOHNATHON ORDERING Charlette Dee MD ADMITTING Grzegorz Ramos ATTENDING Grzegorz Ramos PERFORMING [facility] REFERRING Anti Suzie Gastelum SUPPLY CHAIN DIRECTOR Sade Barajas *PROCEDURE DATA* Procedure information: The patient was i dentified by two identifiers. This study was interpreted by [facility]. Pertinent images and digital data are archived for permanent storage and are available for subsequent review. Study status: Routine. Transthoracic echocardiography. M-mode, complete 2D, complete spectral Doppler, and color Doppler. A T ransthoracic Echocardiogram was performed. Scanning was performed from [facility] parasternal, apical, subcostal, and suprasternal notch acoust ic windows. Images were obtained using an Navarikq 13 cardiac ultrasound mach ine. Image quality was good. Study completion: The patient tolerated the procedure well. *INDICATIONS AND HISTORY* Indications: Tachycardia (R00.0), known, pre-procedure. *CARDIAC ANATOMY* Left ventricle: The cavity size was norm al. Wall thickness was normal. Systolic function was normal. The estima isabel ejection fraction was 60-65%. Wall motion was normal; there we re no regional wall motion abnormalities. Diastolic parameters were normal. Aortic valve: Trileaflet; normal thickne ss leaflets. Mobility was not restricted. Doppler: Transvalvular veloc ity was within the normal range. There was no stenosis. There was no significant regurgitation. Aorta: Aortic root: The aortic root was normal in size. Mitral valve: Structurally normal valve. Mobility was not restricted. Doppler: Transvalvular veloc ity was within the normal range. There was no evidence for stenosi s. There was trivial regurgitation. Peak gradient (D): 2.8mm Hg. Left atrium: The atrium was normal in si ze. Right ventricle: The cavity size was nor mal. Wall thickness was normal. Systolic function was normal. Pulmonic valve: Doppler: Transvalvular v elocity was within the normal range. There was no evidence for stenosis. There was no significant regurgitation. Tricuspid valve: Structurally normal lili ve. Doppler: Transvalvular velocity was within the normal range. Th ere was no evidence for stenosis. There was mild regurgitation. Pulmonary artery: Pulmonary systolic pre ssure was within the normal range, in the range of 25mm Hg to 30mm H g. Right atrium: The atrium was normal in s ize. Catheter tip noted in right atrium. Pericardium: There was no pericardial ef fusion. Systemic veins: Inferior vena cava: The vessel was purvi l in size. Measurements Left ventricle Value Reference LV ID, ED, PLAX 4.5 cm 3.5 - 6.0 LV ID, ES, PLAX 2.5 cm 2.1 - 4.0 LV PW thickness, ED, PLAX 1.1 cm ------ ---- LV end-diastolic volume, 1-p A2C 86 ml LV ejection fraction, 1-p A2C 64 % ---- ------ LV end-diastolic volume, 1-p A4C 85 ml LV ejection fraction, 1-p A4C 67 % ---- ------ LV IVRT, DP 63 ms 60 - 100 LV e', lateral 0.147 m/sec LV E/e', lateral 6 LV e', medial 0.1 m/sec LV E/e', medial 8 LV e', average 0.124 m/sec LV E/e', average 7 Ventricular septum Value Reference IVS thickness, ED, PLAX 0.8 cm -------- -- Aorta Value Reference Aortic root ID 2.4 cm Ascending aorta ID, A-P 2.8 cm -------- -- Ascending aorta ID, A-P, S 2.8 cm ----- ----- Left atrium Value Reference LA ID, A-P, ES 3.4 cm LA ID/bsa, A-P 2.0 cm/m^2 <=2.2 LA area, ES, A4C 15.9 cm^2 8.8 - 23.4 LA area, ES, A2C 17 cm^2 LA volume, ES, 2-p 40 ml LA volume/bsa, ES, 2-p 24 ml/m^2 ------ ---- LA/aortic root ratio 1.42 Mitral valve Value Reference Mitral E-wave peak velocity 0.84 m/sec Mitral A-wave peak velocity 0.51 m/sec Mitral deceleration time 229 ms 150 - 2 30 Mitral peak gradient, D 2.8 mm Hg ----- ----- Mitral E/A ratio, peak 1.6 Legend: (L) and (H) arnold values outside specifie d reference range. I have personally reviewed the images an d have reviewed and edited the reported findings. Electronically signed by Rikki Dobbins MD 07/05/2017 09:25 Performing Organization Address City/State/ZIP Code Phon e Number [facility] CARDIOLOGY MAIN CAMPUS (ABNORMAL) HEMAGRAM AND DIFFERENTIAL (07/05/2017 6:03 EST) Pathologist Sig nature WBC 5.80 4.0 - 12.4 [facility] LABORATORY SERVICES RBC 2.90 (L) 3.86 - 5.04 [facility] LABORATORY SERVICES Hemoglobin 8.1 (L) 11.6 - 15.2 [facility] gm/dl LABORATORY SERVICES HCT 25.0 (L) 34.9 - 44.4 % [facility] LABORATORY SERVICES MCV 86 81 - 98 fl [facility] LABORATORY SERVICES MCH 27.9 26.7 - 33.3 pg [facility] LABORATORY SERVICES MCHC 32.4 32.1 - 35.9 [facility] gm/dl LABORATORY SERVICES RDW-CV 14.0 <14.7 % [facility] LABORATORY SERVICES RDW-SD 43.0 <50.4 fl [facility] LABORATORY SERVICES PLT 389 (H) 141 - 377 K/[facility] LABORATORY SERVICES MPV 10.2 9.5 - 12.7 fl [facility] LABORATORY SERVICES Neutrophils 68.7 % [facility] LABORATORY SERVICES Lymphocytes 17.8 % [facility] LABORATORY SERVICES Monocytes 9.5 % [facility] LABORATORY SERVICES Eosinophils 2.8 % [facility] LABORATORY SERVICES Basophils 0.3 % [facility] LABORATORY SERVICES Immature Grans 0.9 % [facility] LABORATORY SERVICES ABS Neutrophils 3.99 2.20 - 8.85 [facility] LABORATORY SERVICES ABS Lymphs 1.03 (L) 1.09 - 3.30 [facility] LABORATORY SERVICES ABS Monocytes 0.55 0.1 - 0.8 /[facility] LABORATORY SERVICES ABS Eosinophils 0.16 0.03 - 0.61 [facility] LABORATORY SERVICES ABS Basophils 0.02 0.01 - 0.11 [facility] LABORATORY SERVICES ABS Immature Grans 0.05 0 - 0.06 /[facility] LABORATORY SERVICES Type of Diff: Automated [facility] LABORATORY SERVICES Specimen Blood specimen (specimen) - Blood Performing Organization Address City/[facility]/ZIP Code Phon e Number [facility] LABORATORY [address] [place] [address] SERVICES GENOTYPE (07/04/2017 14:55 EST) Pathologist Sig nature Genotype Hepatitis C Virus Genotype Not Performed. [facility] Comment: LABORATORY SERVICES Specimens for HCV genotype must have a viral load of > or = 15 IU/mL. Specimen Blood Performing Organization Address City/[facility]/ZIP [facility] Phon e Number [facility] LABORATORY [address] [place] [address] SERVICES HCV RNA QUANT WITH REFLEX TO GENOTYPE (07/04/2017 14:55 EST) HCV RNA Detect Undetected Undetected IU/mL [facility] Comment: CENTER Reference Range: ??Undetected LABORATORY The quantification range of this assay is 15 SERVICES IU/mL to 100,000,000 IU/mL. Testing was performed by the Eb Ampliprep/Eb TaqMan HCV v2.0 ([employer] Specimen Blood specimen (specimen) - Blood Performing Organization Address [facility]/ZIP Code Phon e Number [facility] LABORATORY [address] [place] [address] SERVICES HIV 1/2 ANTIGEN AND ANTIBODY, 4TH GENERATION (07/04/2017 14:55 EST) HIV 1/2 Antibody Negative Negative [facility] Comment: LABORATORY SERVICES Fourth generation assay performed on the Siemens Centaur. If acute HIV-1 infection is suspected in a high risk patient, submit plasma specimen for HIV-1 RNA quantification test. Specimen Blood specimen (specimen) - Blood Performing Organization Address [facility]/ZIP Code Phon e Number [facility] LABORATORY [address] [place] [address] SERVICES (ABNORMAL) C REACTIVE PROTEIN (07/04/2017 14:55 EST) Pathologist Sig nature C Reactive Protein 150.5 (H) <10.0 mg/L [facility] LABORATORY SERVICES Specimen Blood specimen (specimen) - Blood Performing Organization Address [facility]/ZIP [facility] Phon e Number [facility] LABORATORY [address] [place] [address] SERVICES CK (07/04/2017 14:55 EST) Pathologist Sig nature CK 57 30 - 135 U/L [facility] LABORATOR Y SERVICES Specimen Blood specimen (specimen) - Blood Performing Organization Address [facility] Phon e Number [facility] LABORATORY [address] [place] [address] SERVICES INPATIENT ADD-ON (07/04/2017 7:40 EST) Tests to be added ALT,AST,ALK PHOS [facility] [place] [id number] [facility] problems LABORATORY SERVICES Accession number CALLED [id number] WITH [facility] INABILITY TO ADD LABORATORY SERVICES TESTS DUE TO NOT HAVING A SUITABLE SAMPLE SPOKE WITH UNIQUE Specimen Other Performing Organization Address [facility]/ZIP [facility] Phon e Number [facility] LABORATORY [address] [place] [address] SERVICES (ABNORMAL) HEMAGRAM AND DIFFERENTIAL (07/04/2017 4:45 EST) Pathologist Sig nature WBC 10.56 4.0 - 12.4 [facility] LABORATORY SERVICES RBC 3.00 (L) 3.86 - 5.04 [facility] LABORATORY SERVICES Hemoglobin 8.4 (L) 11.6 - 15.2 [facility] gm/dl LABORATORY SERVICES HCT 25.3 (L) 34.9 - 44.4 % [facility] LABORATORY SERVICES MCV 84 81 - 98 fl [facility] LABORATORY SERVICES MCH 28.0 26.7 - 33.3 pg [facility] LABORATORY SERVICES MCHC 33.2 32.1 - 35.9 [facility] gm/dl LABORATORY SERVICES RDW-CV 13.9 <14.7 % [facility] LABORATORY SERVICES RDW-SD 41.7 <50.4 fl [facility] LABORATORY SERVICES PLT 320 141 - 377 [facility] MPV 9.8 9.5 - 12.7 fl [facility] LABORATORY SERVICES Neutrophils 91.7 % [facility] LABORATORY SERVICES Lymphocytes 3.4 % [facility] LABORATORY SERVICES Monocytes 2.5 % [facility] LABORATORY SERVICES Eosinophils 1.3 % [facility] LABORATORY SERVICES Basophils 0.2 % [facility] LABORATORY SERVICES Immature Grans 0.9 % [facility] LABORATORY SERVICES ABS Neutrophils 9.68 (H) 2.20 - 8.85 [facility] LABORATORY SERVICES ABS Lymphs 0.36 (L) 1.09 - 3.30 [facility] LABORATORY SERVICES ABS Monocytes 0.26 0.1 - 0.8 K/[facility] LABORATORY SERVICES ABS Eosinophils 0.14 0.03 - 0.61 [facility] LABORATORY SERVICES ABS Basophils 0.02 0.01 - 0.11 [facility] LABORATORY SERVICES ABS Immature Grans 0.10 (H) 0 - 0.06 K/[facility] LABORATORY SERVICES Type of Diff: Automated [facility] LABORATORY SERVICES Specimen Blood specimen (specimen) - Blood Performing Organization Address City/State/ZIP Code Phon e Number [facility] LABORATORY [address] [place] [address] ANGIO RUNOFF W/WO CONTRAST (07/04/2017 1:45 EST) Anatomical Region Laterality Modality Other Specimen Narrative [facility] RADIOLOGY MAIN CAMPUS - 07/04/2017 10:[address] ANGIO RUNOFF ??07/04/2017 1:45 AM SIGNS AND SYMPTOMS/COMMENTS: ?? Febrile and tachycardic, s/p obturator b ypass for groin infection, substance abuse TECHNIQUE: CT angiography with precontrast, arteria l phase, and portal venous phase images to include the abdomen, pel vis, and bilateral lower extremities to the level of the knees wa s performed. Coronal and sagittal reconstructions were generated and reviewed. COMPARISON: CT 06/27/2017 and 06/25/2017. 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 The obturator bypass graft is patent. Th ere is a long segment of the stripped off ring covering of the bypass graft tracking alongside the functional obturator graft. The righ t external iliac artery is unopacified beyond the graft, which is l ikely ligated. There is a short segment of reconstitution of the r ight common femoral and profunda femoris arteries via the inferi or epigastric artery and other collateral arteries. Beyond the gr aft anastomosis, the right superficial femoral artery is patent, as is the imaged portion of the right popliteal artery. The right in ternal iliac artery is patent. The abdominal aorta, visceral arteries, and arterial supply to the left lower extremity is normal and paten t. Again noted is DVT in the right common f emoral vein. Lower chest: Normal. Hepatobiliary: Normal. Spleen, pancreas, adrenal glands: Normal . Kidneys, ureters, bladder: There is air in the bladder presumably related to recent catheterization. The k idneys and ureters are normal. Uterus, ovaries: Normal. Bowel: Normal. Peritoneal cavity / Subperitoneal space: Small amount of free intra-abdominal, subcutaneous, and intra muscular air is most likely postsurgical in nature. There is a small amount of low-density free fluid in the pelvis adjacent to the bypa ss graft, which may also be postsurgical. Multiple surgical clips ar e noted in the right lower quadrant. Lymphatic: There are reactive lymph node s in the right groin. Abdominal wall: There are postoperative changes in the right lower quadrant including surgical david, sof t tissue reticulation, and subcutaneous gas. Additionally, there is a surgical incision in the right groin which remains partially open with wound VAC packing material. There is no abdominal wall her kavya. Musculoskeletal: As described, there is soft tissue reticulation and subcutaneous gas in the right hemiabdome n and also tracking within the right abdominal wall, also with soft tissue edema and fluid along the lateral, anterior, and medial aspects of the proximal right thigh. There is skin thickening al stefany the medial right thigh as well. IMPRESSION: 1. Patent right external iliac artery to right superficial femoral artery obturator bypass graft. Of note, there is a stripped off segment of ring covering adjacent to the bypass graft. 2. Soft tissue edema and reticulation as well as skin thickening in the proximal right thigh, likely primari ly related to impaired venous drainage in the setting of right common femoral vein DVT. 3. Postoperative changes in the right lo wer quadrant and right groin as above. Soft tissue reticulation and s ubcutaneous gas in this region and also tracking within the abdo roxann wall is presumed primarily postoperative in nature, thoug h in the setting of fever could reflect a component of cellulitis. In any case, there is no organizing or drainable superficial soft tissue or abdominal wall fluid collection. 4. Small amount of free intra-abdominal air and free fluid in the deep pelvis, presumably postoperative an d without organizing collection. Dr. Telly Stover discussed prelimi nary findings with SAGAR MCKEON MD at 07/04/2017 2:27 AM. I have personally reviewed the images an d the above interpretation and agree with the findings. Procedure Note Telly Deluca MD - 07/04/2017 CT ANGIO RUNOFF 07/04/2017 1:45 AM SIGNS AND SYMPTOMS/COMMENTS: Febrile and tachycardic, s/p obturator b ypass for groin infection, substance abuse TECHNIQUE: CT angiography with precontrast, arteria l phase, and portal venous phase images to include the abdomen, pel vis, and bilateral lower extremities to the level of the knees wa s performed. Coronal and sagittal reconstructions were generated and reviewed. COMPARISON: CT 06/27/2017 and 06/25/2017. 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 The obturator bypass graft is patent. Th ere is a long segment of the stripped off ring covering of the bypass graft tracking alongside the functional obturator graft. The righ t external iliac artery is unopacified beyond the graft, which is l ikely ligated. There is a short segment of reconstitution of the r ight common femoral and profunda femoris arteries via the inferi or epigastric artery and other collateral arteries. Beyond the gr aft anastomosis, the right superficial femoral artery is patent, as is the imaged portion of the right popliteal artery. The right in ternal iliac artery is patent. The abdominal aorta, visceral arteries, and arterial supply to the left lower extremity is normal and paten t. Again noted is DVT in the right common f emoral vein. Lower chest: Normal. Hepatobiliary: Normal. Spleen, pancreas, adrenal glands: Normal . Kidneys, ureters, bladder: There is air in the bladder presumably related to recent catheterization. The k idneys and ureters are normal. Uterus, ovaries: Normal. Bowel: Normal. Peritoneal cavity / Subperitoneal space: Small amount of free intra-abdominal, subcutaneous, and intra muscular air is most likely postsurgical in nature. There is a small amount of low-density free fluid in the pelvis adjacent to the bypa ss graft, which may also be postsurgical. Multiple surgical clips ar e noted in the right lower quadrant. Lymphatic: There are reactive lymph node s in the right groin. Abdominal wall: There are postoperative changes in the right lower quadrant including surgical david, sof t tissue reticulation, and subcutaneous gas. Additionally, there is a surgical incision in the right groin which remains partially open with wound VAC packing material. There is no abdominal wall her kavya. Musculoskeletal: As described, there is soft tissue reticulation and subcutaneous gas in the right hemiabdome n and also tracking within the right abdominal wall, also with soft tissue edema and fluid along the lateral, anterior, and medial aspects of the proximal right thigh. There is skin thickening al stefany the medial right thigh as well. IMPRESSION: 1. Patent right external iliac artery to right superficial femoral artery obturator bypass graft. Of note, there is a stripped off segment of ring covering adjacent to the bypass graft. 2. Soft tissue edema and reticulation as well as skin thickening in the proximal right thigh, likely primari ly related to impaired venous drainage in the setting of right common femoral vein DVT. 3. Postoperative changes in the right lo wer quadrant and right groin as above. Soft tissue reticulation and s ubcutaneous gas in this region and also tracking within the abdo roxann wall is presumed primarily postoperative in nature, thoug h in the setting of fever could reflect a component of cellulitis. In any case, there is no organizing or drainable superficial soft tissue or abdominal wall fluid collection. 4. Small amount of free intra-abdominal air and free fluid in the deep pelvis, presumably postoperative an d without organizing collection. Dr. Telly Stover discussed prelimi nary findings with SAGAR MCKEON MD at 07/04/2017 2:27 AM. I have personally reviewed the images an d the above interpretation and agree with the findings. Performing Organization Address City/State/ZIP Code Phon e Number [facility] BACTERIAL CULTURE, BLOOD (07/03/2017 23:40 EST) Pathologist Sig nature Result No growth [facility] LABORATOR Y SERVICES Specimen Blood specimen (specimen) - Blood Performing Organization Address [facility] Phon e Number [facility] LABORATORY [address] [place] [address] SERVICES INPATIENT ADD-ON (07/03/2017 22:05 EST) Pathologist Sig nature Tests to be added CBC WITH [facility] DIFFComment: CBC LABORATORY SERVICES Accession number [id number] [facility] LABORATORY SERVICES Specimen Other Performing Organization Address [facility]/ZIP [facility] Phon e Number [facility] [address] [place] [address] SERVICES BACTERIAL CULTURE, BLOOD (07/03/2017 21:20 EST) Pathologist Sig nature Result No growth [facility] LABORATOR Y SERVICES Specimen Blood specimen (specimen) - Blood Performing Organization Address [facility] Phon e Number [facility] LABOR[facility] [address] [place] [address] SERVICES PORTABLE CHEST 1 VIEW (07/03/2017 21:17 EST) Anatomical Region Laterality Modality Other Specimen Narrative [facility] - 07/04/2017 8:29 EST PORTABLE CHEST 1 VIEW ??07/03/2017 9:17 PM Clinical History/Comments: Febrile, s/p obturator bypass for infect ed groin hematoma Comparison: 06/27/2017. Technique: Frontal 40 degrees upright view of the c hest was performed. Findings: Lines and tubes: The right IJ central ve nous catheter has been removed and there is a new left PICC whi ch terminates in the mid SVC. Bones and soft tissues: There is a scler otic lesion in the left humeral head with arcs and whirls type m ineralization pattern most suggestive of an enchondroma. Cardiomediastinal contours: Normal. Lungs and pleura: The lungs are clear. T here is no visible pleural abnormality. ?? Impression: 1. No acute findings in the chest. 2. Left PICC terminates in the mid SVC. 3. Incidental note of likely benign ench ondroma in the proximal left humerus. I have personally reviewed the images an d the above interpretation and agree with the findings. Procedure Note Wali Brambila MD - 07/04/2017 PORTABLE CHEST 1 VIEW 07/03/2017 9:17 PM Clinical History/Comments: Febrile, s/p obturator bypass for infect ed groin hematoma Comparison: 06/27/2017. Technique: Frontal 40 degrees upright view of the c hest was performed. Findings: Lines and tubes: The right IJ central ve nous catheter has been removed and there is a new left PICC whi ch terminates in the mid SVC. Bones and soft tissues: There is a scler otic lesion in the left humeral head with arcs and whirls type m ineralization pattern most suggestive of an enchondroma. Cardiomediastinal contours: Normal. Lungs and pleura: The lungs are clear. T here is no visible pleural abnormality. Impression: 1. No acute findings in the chest. 2. Left PICC terminates in the mid SVC. 3. Incidental note of likely benign ench ondroma in the proximal left humerus. I have personally reviewed the images an d the above interpretation and agree with the findings. Performing Organization Address City/State/ZIP Code Phon e Number [facility] EKG 12-LEAD (07/03/2017 21:00 EST) Specimen Narrative [facility] EKG - 07/09/2017 11:1 7 EDT ? [facility] ? Test Date: ?2017-07-03 Pat Name: ? LINDSAY JEAN BAPTISTE ?Department: ?? [facility] ? Room: ? SB376 Gender: ? 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 Requested By: LINDA PLASENCIA Order Number: [id number] ? Reading MD: ?? SHANE LEE ? Measurements Intervals ?[facility] ? Rate: ? 116 ?P: ?24 NM: ? 136 ?QRS: ?19 QRSD: ? 93 ? T: ?43 QT: ? 305 ? QTc: ?425 ? Interpretive Statements SINUS TACHYCARDIA ABNORMAL RHYTHM ECG Automated Interpretation. ??Provider Int erpretation to follow. Compared to ECG 06/28/2017 20:43:29 Sinus rhythm no longer present I reviewed the tracing and have either a greed or edited the findings in this report. Electronically Signed On 11:17:18 EDT by SHANE LEE. 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 Provider Inter pretation to follow. Compared to ECG 06/28/2017 20:43:29 Sinus rhythm no longer present I reviewed the tracing and have either a greed or edited the findings in this report. Electronically Signed On 11:17:18 EDT by SHANE LEE. Performing Organization Address City/State/ZIP Code Phon e Number [facility] EKG (ABNORMAL) HEMAGRAM AND DIFFERENTIAL (07/03/2017 20:59 EST) Pathologist Sig nature WBC 15.25 (H) 4.0 - 12.4 [facility] LABORATORY SERVICES RBC 3.20 (L) 3.86 - 5.04 [facility] LABORATORY SERVICES Hemoglobin 8.9 (L) 11.6 - 15.2 [facility] gm/dl LABORATORY SERVICES HCT 27.0 (L) 34.9 - 44.4 % [facility] LABORATORY SERVICES MCV 84 81 - 98 fl [facility] LABORATORY SERVICES MCH 27.8 26.7 - 33.3 pg [facility] LABORATORY SERVICES MCHC 33.0 32.1 - 35.9 [facility] gm/dl LABORATORY SERVICES RDW-CV 13.6 <14.7 % [facility] LABORATORY SERVICES RDW-SD 40.9 <50.4 fl [facility] LABORATORY SERVICES PLT 350 141 - 377 [facility] MPV 9.7 9.5 - 12.7 fl [facility] LABORATORY SERVICES Neutrophils 95.7 % [facility] LABORATORY SERVICES Lymphocytes 1.4 % [facility] LABORATORY SERVICES Monocytes 1.4 % [facility] LABORATORY SERVICES Eosinophils 0.5 % [facility] LABORATORY SERVICES Basophils 0.2 % [facility] LABORATORY SERVICES Immature Grans 0.8 % [facility] LABORATORY SERVICES ABS Neutrophils 14.58 (H) 2.20 - 8.85 [facility] LABORATORY SERVICES ABS Lymphs 0.22 (L) 1.09 - 3.30 [facility] LABORATORY SERVICES ABS Monocytes 0.22 0.1 - 0.8 K/[facility] LABORATORY SERVICES ABS Eosinophils 0.08 0.03 - 0.61 [facility] LABORATORY SERVICES ABS Basophils 0.03 0.01 - 0.11 [facility] LABORATORY SERVICES ABS Immature Grans 0.12 (H) 0 - 0.06 K/[facility] LABORATORY SERVICES Type of Diff: Automated [facility] LABORATORY SERVICES Specimen Blood Performing Organization Address City/[facility]/ZIP Code Phon e Number [facility] LABORATORY [address] [place] [address] SERVICES HOLD PURPLE TOP (07/03/2017 20:59 EST) Hold Purple Top EDTA for hematology will be discarded after 48 hours, differential not available after 12 [facility] hours. LABORATORY SERVICES Specimen Blood Performing Organization Address City/State/ZIP Code Phon e Number [facility] LABORATORY [address] [place] [address] SERVICES CREATININE (07/03/2017 20:59 EST) Creatinine 0.78 0.52 - 1.04 [facility] mg/dl LABORATORY SERVICES GFR, Calculated 99 >60 [facility] Comment: ml/min/1.73m2 LABORATORY eGFR calculated using CKD-EPI equation for SERVICES non Americans. Multiply eGFR by 1.16 for Americans. Specimen Blood specimen (specimen) - Blood Performing Organization Address [facility] Phon e Number [facility] LABORATORY [address] [place] [address] SERVICES BUN (07/03/2017 20:59 EST) Pathologist Sig nature BUN 10 10 - 26 mg/dl [facility] LABORATO RY SERVICES Specimen Blood specimen (specimen) - Blood Performing Organization Address [facility] Phon e Number [facility] LABORATORY [address] [place] [address] SERVICES (ABNORMAL) MAGNESIUM (07/03/2017 20:59 EST) Pathologist Sig nature Magnesium 1.5 (L) 1.7 - 2.8 mg/dl [facility] LABORA TORY SERVICES Specimen Blood specimen (specimen) - Blood Performing Organization Address [facility] Phon e Number [facility] LABORATORY [address] [place] [address] SERVICES CALCIUM, IONIZED (07/03/2017 20:59 EST) Pathologist Sig nature Calcium, Ionized 1.13 1.12 - 1.32 mmol/L [facility] LABORATORY SERVICES Specimen Blood specimen (specimen) - Blood Performing Organization Address [facility] Phon e Number [facility] LABORATORY [address] [place] [address] SERVICES ELECTROLYTES (07/03/2017 20:59 EST) Pathologist Sig nature Sodium 136 136 - 145 mEq/L [facility] LABORA TORY SERVICES Potassium 4.2 3.5 - 5.0 mEq/L [facility] LABORA TORY SERVICES Chloride 100 96 - 110 mEq/L [facility] LABORAT ORY SERVICES CO2 26 22 - 32 mEq/L [facility] LABORATO RY SERVICES Specimen Blood specimen (specimen) - Blood Performing Organization Address [facility] Phon e [facility] LABORATORY [address] [place] [address] SERVICES TROPONIN I (07/03/2017 20:59 EST) Pathologist Sig nature Troponin I (ng/mL) <0.034 <0.034 ng/ml [facility] LABORATORY SERVICES Specimen Blood specimen (specimen) - Blood Performing Organization Address [facility] Phon e Number [facility] LABORATORY [address] [place] [address] SERVICES TRICYCLIC ANTIDEPRESSANTS SCREEN, URINE (07/03/2017 20:45 EST) Tricyc Antidepr Negative screen. [facility] Scrn Comment: LABORATORY Confirmation testing available upon request. SERVICES Suitable for medical purposes only. Will not detect all drugs within class. Cutoff = 300 ng/ml Specimen type is urine. Specimen Urine (substance) - Urine Performing Organization Address [facility] Phon e Number [facility] LABORATORY [address] [place] [address] SERVICES PHENCYCLIDINE (PCP) SCREEN, URINE (07/03/2017 20:45 EST) Phencyclidine Screen Negative screen. [facility] MEDICAL Comment: CENTER LABORATORY Confirmation testing available upon request. SERVICES Suitable for medical purposes only. Will not detect all drugs within class. Cutoff = 25 ng/ml Specimen type is urine. Specimen Urine (substance) - Urine Performing Organization Address [facility] Phon e Number [facility] LABORATORY [address] [place] [address] SERVICES DRUG SCREEN 11, URINE (07/03/2017 20:45 EST) Amphetamine Screen Negative screen. [facility] Comment: CENTER LABORATORY Confirmation testing available upon request. SERVICES Suitable for medical purposes only. Will not detect all drugs within class. Cutoff = 500 ng/ml Specimen type is urine. Barbituate Screen Negative screen. [facility] Comment: CENTER LABORATORY Confirmation testing available upon request. SERVICES Suitable for medical purposes only. Will not detect all drugs within class. Cutoff = 200 ng/ml Specimen type is urine. Benzodiazepine Scrn Presumptive positive, interpret with caution. [facility] Comment: CENTER LABORATORY Confirmation testing available upon request. SERVICES Suitable for medical purposes only. Will not detect all drugs within class. Cutoff = 150 ng/ml Specimen type is urine. Cannabinoids Screen Negative screen. [facility] Comment: CENTER LABORATORY Confirmation testing available upon request. SERVICES Suitable for medical purposes only. Will not detect all drugs within class. Cutoff = 50 ng/ml Specimen type is urine. Methadone Screen Negative screen. [facility] Comment: CENTER LABORATORY Confirmation testing available upon request. SERVICES Suitable for medical purposes only. Will not detect all drugs within class. Cutoff = 200 ng/ml Specimen type is urine. Opiates Screen Presumptive positive, interpret with caution. [facility] Comment: CENTER LABORATORY Confirmation testing available upon request. SERVICES Suitable for medical purposes only. Will not detect all drugs within class. Cutoff = 100 ng/ml Specimen type is urine. Oxycodone Screen Negative screen. [facility] Comment: CENTER LABORATORY Confirmation testing available upon request. SERVICES Suitable for medical purposes only. Will not detect all drugs within class. Cutoff = 100 ng/ml Specimen type is urine. Cocaine Metabolites Negative screen. [facility] Comment: CENTER LABORATORY Confirmation testing available upon request. SERVICES Suitable for medical purposes only. Will not detect all drugs within class. Cutoff = 150 ng/ml Specimen type is urine. Buprenorph and Metab Presumptive positive, interpret with caution. [facility] Comment: CENTER LABORATORY Confirmation testing available upon request. SERVICES Suitable for medical purposes only. Will not detect all drugs within class. Cutoff = 10 ng/ml Specimen type is urine. Methamphetamine Scrn Negative screen. [facility] Comment: CENTER LABORATORY Confirmation testing available upon request. SERVICES Suitable for medical purposes only. Will not detect all drugs within class. Cutoff = 500 ng/ml Specimen type is urine. Propoxyphene Screen Negative screen. [facility] Comment: CENTER LABORATORY Confirmation testing available upon request. SERVICES Suitable for medical purposes only. Will not detect all drugs within class. Cutoff = 300 ng/ml Specimen type is urine. Specimen Urine (substance) - Urine Performing Organization Address City/[facility] Code Phon e Number [facility] LABORATORY [address] [place] [address] SERVICES URINE CULTURE IF UA POSITIVE - NON POCT URINALYSIS ONLY (07/03/2017 20:45 EST) Culture if Culture not [facility] Indicated indicated by LABORATORY SERVICES urinalysis results. Specimen Urine (substance) - Other Performing Organization Address City/[facility]/ZIP [facility] Phon e Number [facility] LABORATORY [address] [place] [address] SERVICES (ABNORMAL) UA, CHEMICAL AND SEDIMENT ANALYSIS (DIPSTICK AND MICROSCOPIC) (07/03/2017 20:45 EST) Color, UA Yellow [facility] LABORATORY SERVICES Clarity, UA Clear [facility] LABORATORY SERVICES Glucose, UA Neg Neg [facility] LABORATORY SERVICES Bilirubin, UA Neg Neg [facility] LABORATORY SERVICES Ketones, UA Neg Neg [facility] LABORATORY SERVICES Refractometer 1.015 1.001 - 1.035 [facility] SG,Urine [facility] LAB[facility]ATORY SERVICES Blood, UA 2+ (A) Neg [facility] LABORATORY SERVICES pH, UA 7.5 4.6 - 8.0 [facility]ENTER LABORATORY SERVICES Protein, UA Neg Neg [facility] LABORATORY SERVICES Urobilinogen, UA Normal Normal [facility] E.U./dl [facility] LAB[facility]ATORY SERVICES Nitrite, UA Neg Neg [facility] LABORATORY SERVICES Leuk Esterase Neg Neg [facility] LABORATORY SERVICES UA Method Used [facility] Comment: CENTER LABORATORY Testing performed using SERVICES indoo.rs [id number]. Urine RBC Count 11 to 50 (A) 0 to 2 /HPF [facility] Automated [facility]ENTER LABORATORY SERVICES Urine WBC Count 0 to 3 0 to 3 /HPF [facility] Automated [facility] LAB[facility] SERVICES Urine Squamous Few (A) None seen [facility] Epithelial Cell /LPF [facility] Count, Automated SERVICES Urine Hyaline Casts, < or = 10 < or = 10 [facility] Automated /LPF [facility] SERVICES Urine Bacteria None seen None seen [facility] Count, Automated [facility] LAB[facility] SERVICES UA Comment Sediment results [facility] Comment: [facility]ENTER LABORATORY are unreliable on SERVICES urines unrefrig >2hrs or refrig >8hrs. Specimen Urine (substance) - Urine Performing Organization Address [facility]/ZIP [facility] Phon e Number [facility] LABORATORY [address] [place] [address] SERVICES INPATIENT ADD-ON (07/03/2017 18:10 EST) Pathologist Sig nature Tests to be added ALT,ALK [facility] PHOS,AST LABORATORY SERVICES Number for problems [id number] [facility] LABOR[facility] SERVICES Accession number [id number] [facility] SERVICES Specimen Other Performing Organization Address City/[facility]/ZIP Code Phon e Number [facility] LABORATORY [address] [phone] SERVICES AST (07/03/2017 6:00 EST) Pathologist Sig nature AST 21 15 - 46 U/L [facility] LABORATOR Y SERVICES Specimen Blood Performing Organization Address City/[facility]/ZIP Code Phon e Number [facility] LABORATORY [address] [phone] SERVICES ALT (07/03/2017 6:00 EST) Pathologist Sig nature ALT 28 <53 U/L [facility] LABORATOR Y SERVICES Specimen Blood Performing Organization Address City/[facility]/ZIP Code Phon e Number [facility] LABORATORY [address] [place] [address] SERVICES ALKALINE PHOSPHATASE (07/03/2017 6:00 EST) Pathologist Sig nature Total Alkaline 82 38 - 126 U/L [facility] Phosphatase LABORATORY SERVICES Specimen Blood Performing Organization Address City/State/ZIP Code Phon e Number [facility] LABORATORY [address] [place] [address] SERVICES CREATININE (07/03/2017 6:00 EST) Creatinine 0.75 0.52 - 1.04 [facility] mg/dl LABORATORY SERVICES GFR, Calculated 104 >60 [facility] Comment: ml/min/1.73m2 LABORATORY eGFR calculated using CKD-EPI equation for SERVICES non Americans. Multiply eGFR by 1.16 for Americans. Specimen Blood specimen (specimen) - Blood Performing Organization Address City/State/ZIP Code [facility] e Number [facility] LABORATORY [address] [place] [address] SERVICES (ABNORMAL) HEMAGRAM AND DIFFERENTIAL (07/03/2017 6:00 EST) Pathologist Sig nature WBC 7.11 4.0 - 12.4 [facility] K/cmm LABORATORY SERVICES RBC 2.85 (L) 3.86 - 5.04 [facility] M/c[facility] LABORATORY SERVICES Hemoglobin 7.8 (L) 11.6 - 15.2 [facility] gm/dl LABORATORY SERVICES HCT 24.3 (L) 34.9 - 44.4 % [facility] LABORATORY SERVICES MCV 85 81 - 98 fl [facility] LABORATORY SERVICES MCH 27.4 26.7 - 33.3 pg [facility] LABORATORY SERVICES MCHC 32.1 32.1 - 35.9 [facility] gm/dl LABORATORY SERVICES RDW-CV 13.5 <14.7 % [facility] LABORATORY SERVICES RDW-SD 42.0 <50.4 fl [facility] LABORATORY SERVICES PLT 324 141 - 377 K/m [facility] LABORATORY SERVICES MPV 9.9 9.5 - 12.7 fl [facility] LABORATORY SERVICES Neutrophils 70.6 % [facility] LABORATORY SERVICES Lymphocytes 16.3 % [facility] LABORATORY SERVICES Monocytes 8.2 % [facility] LABORATORY SERVICES Eosinophils 3.0 % [facility] LABORATORY SERVICES Basophils 0.4 % [facility] LABORATORY SERVICES Immature Grans 1.5 % [facility] LABORATORY SERVICES ABS Neutrophils 5.02 2.20 - 8.85 [facility] K/[facility] LABORATORY SERVICES ABS Lymphs 1.16 1.09 - 3.30 [facility] K/[facility] LABORATORY SERVICES ABS Monocytes 0.58 0.1 - 0.8 K/cmm [facility] LABORATORY SERVICES ABS Eosinophils 0.21 0.03 - 0.61 [facility] K/[facility] LABORATORY SERVICES ABS Basophils 0.03 0.01 - 0.11 [facility] K/[facility] LABORATORY SERVICES ABS Immature Grans 0.11 (H) 0 - 0.06 K/[facility] LABORATORY SERVICES Type of Diff: Automated [facility] LABORATORY SERVICES Specimen Blood specimen (specimen) - Blood Performing Organization Address City/[facility]/ZIP Code Phon e Number [facility] LABORATORY [address] [place] [address] SERVICES ELECTROLYTES (07/03/2017 6:00 EST) Pathologist Sig nature Sodium 138 136 - 145 [facility]Eq/L [facility] Potassium 4.1 3.5 - 5.0 mEq/L [facility] LABORA TORY SERVICES Chloride 103 96 - 110 mEq/L [facility] LABORAT ORY SERVICES CO2 29 22 - 32 mEq/L [facility] LABORATO RY SERVICES Specimen Blood specimen (specimen) - Blood Performing Organization Address City/[facility] Phon e Number [facility] LABORATORY [address] [place] [address] SERVICES (ABNORMAL) BUN (07/03/2017 6:00 EST) Pathologist Sig nature BUN 8 (L) 10 - 26 mg/dl [facility] LABORATO RY SERVICES Specimen Blood specimen (specimen) - Blood Performing Organization Address City/[facility]/ZIP [facility] Phon e Number [facility] LABORATORY [address] [phone] SERVICES VANCOMYCIN TROUGH (07/02/2017 17:50 EST) Vancomycin Trough 12.8 10.0 - 20.0 [facility] Comment: ug/ml [facility]ENTER LABORATORY Vancomycin Trough: ??15.0-20.0 ug/mL SERV ICES [for Staphylococcus aureus bacteremia, endocarditis, meningitis, osteomyelitis, pneumonia.] Type of Draw CATHETER, ANY [facility] LABORATORY SERVICES Specimen Blood specimen (specimen) - Blood Performing Organization Address City/State/ZIP Code Phon e Number [facility] LABORATORY [address] [place] [address] SERVICES IR PICC - REFER TO IV THERAPY FIRST (07/02/2017 16:30 EST) Anatomical Region Laterality Modality Other Specimen Narrative [facility] - 07/06/2017 15:02 EST Procedure: PICC placement Patient: Lindsay Jean Baptiste Attending: Dr. Karel Saldaña [employer] Technician: Dr. 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 Narrative: The patient was prepped and draped in st erile fashion. 1% lidocaine was used for local analgesia. Sonographi c guidance was used to gain access to the right brachial vein with a micropuncture needle. A guidewire was advanced into the vein und er fluoroscopic guidance but could not be advanced past the level of the upper arm. A venogram was performed showing a tortuous network of small veins but with patent central venous drainage. Sonograp hic guidance was then used to gain access into the right brachial v ein in a different location, again using a micropuncture needle. Agai n, the guidewire could not be advanced beyond the upper arm. We then elected to switch to the left ar m. The left arm was prepped and draped in the usual sterile fashion. 1% lidocaine was used for local analgesia. Sonographic guidance wa s used to gain access into the left brachial vein with a micropunct ure needle. A guidewire was advanced into the vein under fluoroscopi c guidance into the upper SVC. The tract was dilated and a single lumen PICC was placed through a peel-away sheath and the tip p ositioned in the lower SVC using fluoroscopic guidance. The cathete r was secured in place, flushed, and a sterile bandage was appli ed. The patient tolerated the procedure well without complication. Ultrasound images demonstrate the vein to be patent and we re recorded. Findings: 1. Patent right brachial vein by ultraso und. 2. Right upper arm venogram shows a tort uous network of veins with a patent axillary vein. Due to difficulty in advancing a guidewire into the right upper arm veins, a right- sided PICC could not be placed. 3. Patent left brachial vein by ultrasou nd. Estimated blood loss: Trace Fluoroscopy time: 3.3 min Total DAP: 2172 mGycm^2 Contrast: 10 cc Impression: Successful placement of left upper extre mity PICC under sonographic and fluoroscopic guidance. Dr. Karel Saldaña was present for and supe rvised the entire procedure. Dr. Denis Vazquez was also present for the procedure. I have personally reviewed the images an d the above interpretation and agree with the findings. Procedure Note Karel Saldaña MD - 07/06/2017 Procedure: PICC placement Patient: Lindsay Jean Baptiste Attending: Dr. Karel Saldaña [employer] Technician: Dr. 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 Narrative: The patient was prepped and draped in st erile fashion. 1% lidocaine was used for local analgesia. Sonographi c guidance was used to gain access to the right brachial vein with a micropuncture needle. A guidewire was advanced into the vein und er fluoroscopic guidance but could not be advanced past the level of the upper arm. A venogram was performed showing a tortuous network of small veins but with patent central venous drainage. Sonograp hic guidance was then used to gain access into the right brachial v ein in a different location, again using a micropuncture needle. Agai n, the guidewire could not be advanced beyond the upper arm. We then elected to switch to the left ar m. The left arm was prepped and draped in the usual sterile fashion. 1% lidocaine was used for local analgesia. Sonographic guidance wa s used to gain access into the left brachial vein with a micropunct ure needle. A guidewire was advanced into the vein under fluoroscopi c guidance into the upper SVC. The tract was dilated and a single lumen PICC was placed through a peel-away sheath and the tip p ositioned in the lower SVC using fluoroscopic guidance. The cathete r was secured in place, flushed, and a sterile bandage was appli ed. The patient tolerated the procedure well without complication. Ultrasound images demonstrate the vein to be patent and we re recorded. Findings: 1. Patent right brachial vein by ultraso und. 2. Right upper arm venogram shows a tort uous network of veins with a patent axillary vein. Due to difficulty in advancing a guidewire into the right upper arm veins, a right- sided PICC could not be placed. 3. Patent left brachial vein by ultrasou nd. Estimated blood loss: Trace Fluoroscopy time: 3.3 min Total DAP: 2172 mGycm^2 Contrast: 10 cc Impression: Successful placement of left upper extre mity PICC under sonographic and fluoroscopic guidance. Dr. Karel Saldaña was present for and supe rvised the entire procedure. Dr. Denis Vazquez was also present for the procedure. I have personally reviewed the images an d the above interpretation and agree with the findings. Performing Organization Address [facility]/ZIP Code Phon e Number [facility] INPATIENT ADD-ON (07/02/2017 11:55 EST) Pathologist Sig nature Tests to be added ALT,AST,ALK [facility] PHOS LABORATORY SERVICES Number for problems [id number] [facility] LABORATORY SERVICES Accession number [id number] [facility] LABORATORY SERVICES Specimen Other Performing Organization Address [facility] Phon e Number [facility] LABORATORY [address] [place] [address] SERVICES AST (07/02/2017 6:28 EST) Pathologist Sig nature AST 32 15 - 46 U/L [facility] LABORATOR Y SERVICES Specimen Blood Performing Organization Address [facility] Phon e Number [facility] LABORATORY [address] [place] [address] SERVICES ALT (07/02/2017 6:28 EST) Pathologist Sig nature ALT 39 <53 U/L [facility] LABORATOR Y SERVICES Specimen Blood Performing Organization Address [facility] Phon e Number [facility] LABORATORY [address] [place] [address] SERVICES ALKALINE PHOSPHATASE (07/02/2017 6:28 EST) Pathologist Sig nature Total Alkaline 91 38 - 126 U/L [facility] Phosphatase LABORATORY SERVICES Specimen Blood Performing Organization Address [facility] Phon e Number [facility] LABORATORY [address] [place] [address] SERVICES CREATININE (07/02/2017 6:28 EST) Creatinine 0.70 0.52 - 1.04 [facility] mg/dl LABORATORY SERVICES GFR, Calculated 113 >60 [facility] Comment: ml/min/1.73m2 LABORATORY eGFR calculated using CKD-EPI equation for SERVICES non Americans. Multiply eGFR by 1.16 for Americans. Specimen Blood specimen (specimen) - Blood Performing Organization Address City/State/ZIP Code Phon e Number [facility] LABORATORY [address] [place] [address] SERVICES (ABNORMAL) HEMAGRAM AND DIFFERENTIAL (07/02/2017 6:28 EST) Pathologist Sig nature WBC 9.38 4.0 - 12.4 [facility] K[facility] LABORATORY SERVICES RBC 3.06 (L) 3.86 - 5.04 [facility] M/[facility] LABORATORY SERVICES Hemoglobin 8.5 (L) 11.6 - 15.2 [facility] gm/dl LABORATORY SERVICES HCT 25.9 (L) 34.9 - 44.4 % [facility] LABORATORY SERVICES MCV 85 81 - 98 fl [facility] LABORATORY SERVICES MCH 27.8 26.7 - 33.3 pg [facility] LABORATORY SERVICES MCHC 32.8 32.1 - 35.9 [facility] gm/dl LABORATORY SERVICES RDW-CV 13.7 <14.7 % [facility] LABORATORY SERVICES RDW-SD 42.0 <50.4 fl [facility] LABORATORY SERVICES PLT 250 141 - 377 K/[facility] LABORATORY SERVICES MPV 9.7 9.5 - 12.7 fl [facility] LABORATORY SERVICES Neutrophils 75.9 % [facility] LABORATORY SERVICES Lymphocytes 13.5 % [facility] LABORATORY SERVICES Monocytes 6.0 % [facility] LABORATORY SERVICES Eosinophils 2.3 % [facility] LABORATORY SERVICES Basophils 0.2 % [facility] LABORATORY SERVICES Immature Grans 2.1 % [facility] LABORATORY SERVICES ABS Neutrophils 7.11 2.20 - 8.85 [facility] K[facility] LABORATORY SERVICES ABS Lymphs 1.27 1.09 - 3.30 [facility] K[facility] LABORATORY SERVICES ABS Monocytes 0.56 0.1 - 0.8 K/[facility] LABORATORY SERVICES ABS Eosinophils 0.22 0.03 - 0.61 [facility] K/cmm LABORATORY SERVICES ABS Basophils 0.02 0.01 - 0.11 [facility] K[facility] LABORATORY SERVICES ABS Immature Grans 0.20 (H) 0 - 0.06 K/[facility] LABORATORY SERVICES Type of Diff: Automated [facility] LABORATORY SERVICES Specimen Blood specimen (specimen) - Blood Performing Organization Address [facility]/ZIP Code Phon e Number [facility] LABORATORY [address] [place] [address] SERVICES ELECTROLYTES (07/02/2017 6:28 EST) Pathologist Sig nature Sodium 136 136 - 145 mEq/L [facility] LABORA TORY SERVICES Potassium 4.1 3.5 - 5.0 mEq/L [facility] LABORA TORY SERVICES Chloride 103 96 - 110 mEq/L [facility] LABORAT ORY SERVICES CO2 27 22 - 32 mEq/L [facility] LABORATO RY SERVICES Specimen Blood specimen (specimen) - Blood Performing Organization Address [facility]/ZIP [facility] Phon e Number [facility] LABORATORY [address] [place] [address] SERVICES (ABNORMAL) BUN (07/02/2017 6:28 EST) Pathologist Sig nature BUN 6 (L) 10 - 26 mg/dl [facility] LABORATO RY SERVICES Specimen Blood specimen (specimen) - Blood Performing Organization Address [facility]/ZIP Code Phon e Number [facility] LABORATORY [address] [place] [address] SERVICES TROPONIN I (07/02/2017 6:28 EST) Pathologist Sig nature Troponin I (ng/mL) <0.034 <0.034 ng/ml [facility] LABORATORY SERVICES Specimen Blood specimen (specimen) - Blood Performing Organization Address City/[facility]/ZIP Code Phon e Number [facility] LABORATORY [address] [place] [address] SERVICES (ABNORMAL) HEMAGRAM (07/01/2017 17:42 EST) Pathologist Sig nature WBC 9.89 4.0 - 12.4 K/cmm [facility] LABORATORY SERVICES RBC 2.86 (L) 3.86 - 5.04 M/cmm [facility] LABORATORY SERVICES Hemoglobin 8.0 (L) 11.6 - 15.2 gm/dl [facility] LABORATORY SERVICES HCT 24.3 (L) 34.9 - 44.4 % [facility] LABORATORY SERVICES MCV 85 81 - 98 fl [facility] LABORATORY SERVICES MCH 28.0 26.7 - 33.3 pg [facility] LABORATORY SERVICES MCHC 32.9 32.1 - 35.9 gm/dl [facility] LABORATORY SERVICES RDW-CV 13.7 <14.7 % [facility] LABORATORY SERVICES RDW-SD 41.6 <50.4 fl [facility] LABORATORY SERVICES PLT 257 141 - 377 /[facility] LABORATORY SERVICES MPV 9.7 9.5 - 12.7 fl [facility] LABORATORY SERVICES Specimen Blood specimen (specimen) - Blood Performing Organization Address City/State/ZIP Code Phon e Number [facility] LABORATORY [address] [place] [address] SERVICES CREATININE (07/01/2017 5:55 EST) Creatinine 0.68 0.52 - 1.04 [facility] mg/dl LABORATORY SERVICES GFR, Calculated 115 >60 [facility] Comment: ml/min/1.73m2 LABORATORY eGFR calculated using CKD-EPI equation for SERVICES non Americans. Multiply eGFR by 1.16 for Americans. Specimen Blood specimen (specimen) - Blood Performing Organization Address City/State/[facility] Code Phon e Number [facility] LABORATORY [address] [place] [address] SERVICES (ABNORMAL) HEMAGRAM AND DIFFERENTIAL (07/01/2017 5:55 EST) Pathologist Sig nature WBC 9.08 4.0 - 12.4 [facility] LABORATORY SERVICES RBC 2.42 (L) 3.86 - 5.[address] [facility] LABORATORY SERVICES Hemoglobin 6.6 (LL) 11.6 - 15.2 [facility] gm/dl LABORATORY SERVICES HCT 20.6 (LL) 34.9 - 44.4 % [facility] LABORATORY SERVICES MCV 85 81 - 98 fl [facility] LABORATORY SERVICES MCH 27.3 26.7 - 33.3 pg [facility] LABORATORY SERVICES MCHC 32.0 (L) 32.1 - 35.9 [facility] gm/dl LABORATORY SERVICES RDW-CV 13.2 <14.7 % [facility] LABORATORY SERVICES RDW-SD 40.9 <50.4 fl [facility] LABORATORY SERVICES PLT 238 141 - 377 K/[facility] LABORATORY SERVICES MPV 9.7 9.5 - 12.7 fl [facility] LABORATORY SERVICES Neutrophils 77.9 % [facility] LABORATORY SERVICES Lymphocytes 13.2 % [facility] LABORATORY SERVICES Monocytes 5.5 % [facility] LABORATORY SERVICES Eosinophils 1.8 % [facility] LABORATORY SERVICES Basophils 0.3 % [facility] LABORATORY SERVICES Immature Grans 1.3 % [facility] LABORATORY SERVICES ABS Neutrophils 7.07 2.20 - 8.85 [facility] K[facility] LABORATORY SERVICES ABS Lymphs 1.20 1.09 - 3.30 [facility] ABS Monocytes 0.50 0.1 - 0.8 K/[facility] LABORATORY SERVICES ABS Eosinophils 0.16 0.03 - 0.61 [facility] K[facility] LABORATORY SERVICES ABS Basophils 0.03 0.01 - 0.11 [facility] K/[facility] LABORATORY SERVICES ABS Immature Grans 0.12 (H) 0 - 0.06 K/[facility] LABORATORY SERVICES Type of Diff: Automated [facility] LABORATORY SERVICES Specimen Blood specimen (specimen) - Blood Performing Organization Address City/[facility]/ZIP Code Phon e Number [facility] LABORATORY [address] [place] [address] SERVICES ELECTROLYTES (07/01/2017 5:55 EST) Pathologist Sig nature Sodium 138 136 - 145 mEq/L [facility] LABORA TORY SERVICES Potassium 4.3 3.5 - 5.0 mEq/L [facility] LABORA TORY SERVICES Chloride 104 96 - 110 mEq/L [facility] LABORAT ORY SERVICES CO2 31 22 - 32 mEq/L [facility] LABORATO RY SERVICES Specimen Blood specimen (specimen) - Blood Performing Organization Address City/State/ZIP Code Phon e Number [facility] LABORATORY [address] [place] [address] SERVICES (ABNORMAL) BUN (07/01/2017 5:55 EST) Pathologist Sig nature BUN 4 (L) 10 - 26 mg/dl [facility] LABORATO RY SERVICES Specimen Blood specimen (specimen) - Blood Performing Organization Address City/State/ZIP Code Phon e Number [facility] LABORATORY [address] [place] [address] SERVICES TROPONIN I (07/01/2017 5:55 EST) Pathologist Sig nature Troponin I (ng/mL) <0.034 <0.034 ng/ml [facility] LABORATORY SERVICES Specimen Blood specimen (specimen) - Blood Performing Organization Address [facility] Phon e Number [facility] LABORATORY [address] [place] [address] SERVICES (ABNORMAL) HEMAGRAM (06/30/2017 15:50 EST) Pathologist Sig nature WBC 9.13 4.0 - 12.4 K/cmm [facility] LABORATORY SERVICES RBC 2.57 (L) 3.86 - 5.04 M/cmm [facility] LABORATORY SERVICES Hemoglobin 7.1 (L) 11.6 - 15.2 gm/dl [facility] LABORATORY SERVICES HCT 22.0 (L) 34.9 - 44.4 % [facility] LABORATORY SERVICES MCV 86 81 - 98 fl [facility] LABORATORY SERVICES MCH 27.6 26.7 - 33.3 pg [facility] LABORATORY SERVICES MCHC 32.3 32.1 - 35.9 gm/dl [facility] LABORATORY SERVICES RDW-CV 13.3 <14.7 % [facility] LABORATORY SERVICES RDW-SD 41.3 <50.4 fl [facility] LABORATORY SERVICES PLT 235 141 - 377 K/cmm [facility] LABORATORY SERVICES MPV 9.6 9.5 - 12.7 fl [facility] LABORATORY SERVICES Specimen Blood specimen (specimen) - Blood Performing Organization Address City/[facility] Phon e Number [facility] LABORATORY [address] [place] [address] SERVICES (ABNORMAL) VANCOMYCIN TROUGH (06/30/2017 15:50 EST) Vancomycin Trough 9.5 (L) 10.0 - 20.0 [facility] Comment: ug/ml [facility] LAB[facility]ATORY Vancomycin Trough: ??15.0-20.0 ug/mL SERV ICES [for Staphylococcus aureus bacteremia, endocarditis, meningitis, osteomyelitis, pneumonia.] Type of Draw CATHETER, ANY [facility] LABORATORY SERVICES Specimen Blood specimen (specimen) - Blood Performing Organization Address City/[facility]/ZIP Code Phon e Number [facility] LABOR[facility] [address] [place] [address] SERVICES (ABNORMAL) HEMAGRAM AND DIFFERENTIAL (06/30/2017 10:27 EST) Pathologist Sig nature WBC 9.94 4.0 - 12.4 [facility] LABORATORY SERVICES RBC 2.80 (L) 3.86 - 5.[address] [facility] LABORATORY SERVICES Hemoglobin 7.6 (L) 11.6 - 15.2 [facility] gm/dl LABORATORY SERVICES HCT 24.3 (L) 34.9 - 44.4 % [facility] LABORATORY SERVICES MCV 87 81 - 98 fl [facility] LABORATORY SERVICES MCH 27.1 26.7 - 33.3 pg [facility] LABORATORY SERVICES MCHC 31.3 (L) 32.1 - 35.9 [facility] gm/dl LABORATORY SERVICES RDW-CV 13.5 <14.7 % [facility] LABORATORY SERVICES RDW-SD 42.2 <50.4 fl [facility] LABORATORY SERVICES PLT 241 141 - 377 K/[facility] LABORATORY SERVICES MPV 9.2 (L) 9.5 - 12.7 fl [facility] LABORATORY SERVICES Neutrophils 79.4 % [facility] LABORATORY SERVICES Lymphocytes 11.4 % [facility] LABORATORY SERVICES Monocytes 6.1 % [facility] LABORATORY SERVICES Eosinophils 1.3 % [facility] LABORATORY SERVICES Basophils 0.2 % [facility] LABORATORY SERVICES Immature Grans 1.6 % [facility] LABORATORY SERVICES ABS Neutrophils 7.89 2.20 - 8.85 [facility] LABORATORY SERVICES ABS Lymphs 1.13 1.09 - 3.30 [facility] LABORATORY SERVICES ABS Monocytes 0.61 0.1 - 0.8 /[facility] LABORATORY SERVICES ABS Eosinophils 0.13 0.03 - 0.61 [facility] LABORATORY SERVICES ABS Basophils 0.02 0.01 - 0.11 [facility] LABORATORY SERVICES ABS Immature Grans 0.16 (H) 0 - 0.06 [facility] LABORATORY SERVICES Type of Diff: Automated [facility] LABORATORY SERVICES Specimen Blood specimen (specimen) - Blood Performing Organization Address City/State/ZIP Code Phon e Number [facility] LABORATORY [address] [place] [address] SERVICES (ABNORMAL) HEMAGRAM AND DIFFERENTIAL (06/30/2017 6:24 EST) Pathologist Sig nature WBC 9.94 4.0 - 12.4 [facility] LABORATORY SERVICES RBC 2.74 (L) 3.86 - 5.[address] [facility] LABORATORY SERVICES Hemoglobin 7.6 (L) 11.6 - 15.2 [facility] gm/dl LABORATORY SERVICES HCT 22.8 (L) 34.9 - 44.4 % [facility] LABORATORY SERVICES MCV 83 81 - 98 fl [facility] LABORATORY SERVICES MCH 27.7 26.7 - 33.3 pg [facility] LABORATORY SERVICES MCHC 33.3 32.1 - 35.9 [facility] gm/dl LABORATORY SERVICES RDW-CV 13.4 <14.7 % [facility] LABORATORY SERVICES RDW-SD 40.3 <50.4 fl [facility] LABORATORY SERVICES PLT 238 141 - 377 [facility] LABORATORY SERVICES MPV 9.3 (L) 9.5 - 12.7 fl [facility] LABORATORY SERVICES Neutrophils 80.4 % [facility] LABORATORY SERVICES Lymphocytes 10.3 % [facility] LABORATORY SERVICES Monocytes 6.6 % [facility] LABORATORY SERVICES Eosinophils 1.1 % [facility] LABORATORY SERVICES Basophils 0.2 % [facility] LABORATORY SERVICES Immature Grans 1.4 % [facility] LABORATORY SERVICES ABS Neutrophils 7.99 2.20 - 8.85 [facility] LABORATORY SERVICES ABS Lymphs 1.02 (L) 1.09 - 3.30 [facility] LABORATORY SERVICES ABS Monocytes 0.66 0.1 - 0.8 [facility] LABORATORY SERVICES ABS Eosinophils 0.11 0.03 - 0.61 [facility] LABORATORY SERVICES ABS Basophils 0.02 0.01 - 0.11 [facility] LABORATORY SERVICES ABS Immature Grans 0.14 (H) 0 - 0.06 [facility] LABORATORY SERVICES Type of Diff: Automated [facility] LABORATORY SERVICES Specimen Blood specimen (specimen) - Blood Performing Organization Address City/State/ZIP Code Phon e Number [facility] LABORATORY [address] [place] [address] SERVICES (ABNORMAL) ELECTROLYTES (06/30/2017 6:24 EST) Pathologist Sig nature Sodium 134 (L) 136 - 145 mEq/L [facility] LABORA TORY SERVICES Potassium 4.3 3.5 - 5.0 mEq/L [facility] LABORA TORY SERVICES Chloride 104 96 - 110 mEq/L [facility] LABORAT ORY SERVICES CO2 26 22 - 32 mEq/L [facility] LABORATO RY SERVICES Specimen Blood specimen (specimen) - Blood Performing Organization Address City/State/ZIP Code Phon e Number [facility] LABORATORY [address] [place] [address] SERVICES (ABNORMAL) BUN (06/30/2017 1:49 EST) Pathologist Sig nature BUN 4 (L) 10 - 26 mg/dl [facility] LABORATO RY SERVICES Specimen Blood specimen (specimen) - Blood Performing Organization Address City/State/ZIP Code Phon e Number [facility] LABORATORY [address] [place] [address] SERVICES (ABNORMAL) HEMAGRAM AND DIFFERENTIAL (06/30/2017 1:49 EST) Pathologist Sig nature WBC 12.61 (H) 4.0 - 12.4 [facility] K/m LABORATORY SERVICES RBC 2.89 (L) 3.86 - 5.04 [facility] M/[facility] LABORATORY SERVICES Hemoglobin 7.9 (L) 11.6 - 15.2 [facility] gm/dl LABORATORY SERVICES HCT 23.8 (L) 34.9 - 44.4 % [facility] LABORATORY SERVICES MCV 82 81 - 98 fl [facility] LABORATORY SERVICES MCH 27.3 26.7 - 33.3 pg [facility] LABORATORY SERVICES MCHC 33.2 32.1 - 35.9 [facility] gm/dl LABORATORY SERVICES RDW-CV 13.2 <14.7 % [facility] LABORATORY SERVICES RDW-SD 40.2 <50.4 fl [facility] LABORATORY SERVICES PLT 282 141 - 377 K/m [facility] LABORATORY SERVICES MPV 9.4 (L) 9.5 - 12.7 fl [facility] LABORATORY SERVICES Neutrophils 81.5 % [facility] LABORATORY SERVICES Lymphocytes 10.3 % [facility] LABORATORY SERVICES Monocytes 5.9 % [facility] LABORATORY SERVICES Eosinophils 0.9 % [facility] LABORATORY SERVICES Basophils 0.2 % [facility] LABORATORY SERVICES Immature Grans 1.2 % [facility] LABORATORY SERVICES ABS Neutrophils 10.28 (H) 2.20 - 8.85 [facility] K/[facility] LABORATORY SERVICES ABS Lymphs 1.30 1.09 - 3.30 [facility] LABORATORY SERVICES ABS Monocytes 0.75 0.1 - 0.8 K/[facility] LABORATORY SERVICES ABS Eosinophils 0.11 0.03 - 0.61 [facility] K/[facility] LABORATORY SERVICES ABS Basophils 0.02 0.01 - 0.11 [facility] K/[facility] LABORATORY SERVICES ABS Immature Grans 0.15 (H) 0 - 0.06 /[facility] LABORATORY SERVICES Type of Diff: Automated [facility] LABORATORY SERVICES Specimen Blood specimen (specimen) - Blood Performing Organization Address City/State/ZIP Code Phon e Number [facility] LABORATORY [address] [place] [address] SERVICES TROPONIN I (06/30/2017 1:49 EST) Pathologist Sig nature Troponin I (ng/mL) <0.034 <0.034 ng/ml [facility] LABORATORY SERVICES Specimen Blood specimen (specimen) - Blood Performing Organization Address City/State/ZIP Code Phon e Number [facility] LABORATORY [address] [place] [address] SERVICES (ABNORMAL) ELECTROLYTES (06/30/2017 1:49 EST) Pathologist Sig nature Sodium 132 (L) 136 - 145 mEq/L [facility] LABORA TORY SERVICES Potassium 4.5 3.5 - 5.0 mEq/L [facility] LABORA TORY SERVICES Chloride 104 96 - 110 mEq/L [facility] LABORAT ORY SERVICES CO2 24 22 - 32 mEq/L [facility] LABORATO RY SERVICES Specimen Blood specimen (specimen) - Blood Performing Organization Address City/State/ZIP Code Phon e Number [facility] LABORATORY [address] [place] [address] SERVICES CREATININE (06/30/2017 1:49 EST) Creatinine 0.73 0.52 - 1.04 [facility] mg/dl LABORATORY SERVICES GFR, Calculated 108 >60 [facility] Comment: ml/min/1.73m2 LABORATORY eGFR calculated using CKD-EPI equation for SERVICES non Americans. Multiply eGFR by 1.16 for Americans. Specimen Blood specimen (specimen) - Blood Performing Organization Address [facility]/ZIP [facility] Phon e Number [facility] LABORATORY [address] [place] [address] SERVICES (ABNORMAL) HEMATOCRIT (06/29/2017 21:49 EST) Pathologist Sig nature HCT 25.2 (L) 34.9 - 44.4 % [facility] LABORATO RY SERVICES Specimen Blood specimen (specimen) - Blood Performing Organization Address [facility] Phon e Number [facility] LABORATORY [address] [place] [address] SERVICES SLIDE REQUEST (06/29/2017 17:07 EST) Pathologist Sig nature Note A smear is filed in [facility] the Hematology lab LABORATORY SERVICES Specimen Blood Performing Organization Address [facility] Phon e Number [facility] LABORATORY [address] [place] [address] SERVICES (ABNORMAL) HEMATOCRIT (06/29/2017 17:07 EST) Pathologist Sig nature HCT 25.3 (L) 34.9 - 44.4 % [facility] LABORATO RY SERVICES Specimen Blood specimen (specimen) - Blood Performing Organization Address [facility] Phon e Number [facility] LABORATORY [address] [place] [address] SERVICES (ABNORMAL) SCREENING GLUCOSE (06/29/2017 13:17 EST) Glucose, Screening 131 (H) 70 - 100 [facility] Comment: mg/dl LABORATORY Slight hemolysis SERVICES Results may be affected due to hemolysis. Specimen Blood specimen (specimen) - Blood Performing Organization Address [facility] Phon e Number [facility] LABORATORY [address] [place] [address] SERVICES PHOSPHORUS (06/29/2017 13:17 EST) Phosphorus 3.4 2.5 - 4.5 mg/dl [facility] Comment: LABORATORY SERVICES Slight hemolysis Results may be affected due to hemolysis. Specimen Blood specimen (specimen) - Blood Performing Organization Address [facility]/ZIP [facility] Phon e Number [facility] LABORATORY [address] [place] [address] SERVICES (ABNORMAL) MAGNESIUM (06/29/2017 13:17 EST) Pathologist Sig nature Magnesium 1.5 (L) 1.7 - 2.8 mg/dl [facility] Comment: LABORATORY SERVICES Slight hemolysis Results may be affected due to hemolysis. Specimen Blood specimen (specimen) - Blood Performing Organization Address City/State/ZIP Code Phon e Number [facility] LABORATORY [address] [place] [address] SERVICES (ABNORMAL) HEMAGRAM AND DIFFERENTIAL (06/29/2017 13:17 EST) Pathologist Sig nature WBC 19.37 (H) 4.0 - 12.4 [facility] LABORATORY SERVICES RBC 3.32 (L) 3.86 - 5.[address] [facility] LABORATORY SERVICES Hemoglobin 9.2 (L) 11.6 - 15.2 [facility] gm/dl LABORATORY SERVICES HCT 27.2 (L) 34.9 - 44.4 % [facility] LABORATORY SERVICES MCV 82 81 - 98 fl [facility] LABORATORY SERVICES MCH 27.7 26.7 - 33.3 pg [facility] LABORATORY SERVICES MCHC 33.8 32.1 - 35.9 [facility] gm/dl LABORATORY SERVICES RDW-CV 13.1 <14.7 % [facility] LABORATORY SERVICES RDW-SD 39.1 <50.4 fl [facility] LABORATORY SERVICES PLT 312 141 - 377 /[facility] LABORATORY SERVICES MPV 9.4 (L) 9.5 - 12.7 fl [facility] LABORATORY SERVICES Neutrophils 92.0 % [facility] LABORATORY SERVICES Lymphocytes 3.3 % [facility] LABORATORY SERVICES Monocytes 3.1 % [facility] LABORATORY SERVICES Eosinophils 0.0 % [facility] LABORATORY SERVICES Basophils 0.3 % [facility] LABORATORY SERVICES Immature Grans 1.3 % [facility] LABORATORY SERVICES ABS Neutrophils 17.84 (H) 2.20 - 8.85 [facility] LABORATORY SERVICES ABS Lymphs 0.63 (L) 1.09 - 3.30 [facility] LABORATORY SERVICES ABS Monocytes 0.60 0.1 - 0.8 /[facility] LABORATORY SERVICES ABS Eosinophils 0.00 (L) 0.03 - 0.61 [facility] LABORATORY SERVICES ABS Basophils 0.05 0.01 - 0.11 [facility] LABORATORY SERVICES ABS Immature Grans 0.25 (H) 0 - 0.06 K/cmm [facility] LABORATORY SERVICES Type of Diff: Automated [facility] LABORATORY SERVICES Specimen Blood specimen (specimen) - Blood Performing Organization Address City/[facility]/ZIP Code Phon e Number [facility] LABORATORY [address] [place] [address] SERVICES ELECTROLYTES (06/29/2017 13:17 EST) Pathologist Sig nature Sodium 136Comment: Slight 136 - 145 mEq/L [facility] hemolysis LABORATORY SERVICES Potassium 4.3 3.5 - 5.0 mEq/L [facility] Comment: LABORATORY SERVICES Slight hemolysis Hemolysis may elevate potassium result. Chloride 107Comment: Slight 96 - 110 mEq/L [facility] hemolysis LABORATORY SERVICES CO2 23Comment: Slight 22 - 32 mEq/L [facility] hemolysis LABORATORY SERVICES Specimen Blood specimen (specimen) - Blood Performing Organization Address [facility]/ZIP [facility] LABORATORY [address] [place] [address] SERVICES CREATININE (06/29/2017 13:17 EST) Creatinine 0.59Comment: Slight 0.52 - 1.04 [facility] hemolysis mg/dl LABORATORY SERVICES GFR, Calculated 120 >60 [facility] Comment: ml/min/1.73m2 LABORATORY eGFR calculated using CKD-EPI equation for SERVICES non Americans. Multiply eGFR by 1.16 for Americans. Specimen Blood specimen (specimen) - Blood Performing Organization Address [facility]/ZIP Code Phon e Number [facility] LABORATORY [address] [place] [address] SERVICES CALCIUM, IONIZED (06/29/2017 13:17 EST) Pathologist Sig nature Calcium, Ionized 1.12 1.12 - 1.32 mmol/L [facility] LABORATORY SERVICES Specimen Blood specimen (specimen) - Blood Performing Organization Address City/[facility]/ZIP Code Phon e Number [facility] LABORATORY [address] [place] [address] SERVICES (ABNORMAL) BUN (06/29/2017 13:17 EST) Pathologist Sig nature BUN 3 (L) 10 - 26 mg/dl [facility] Comment: LABORATORY SERVICES Slight hemolysis Results may be affected due to hemolysis. Specimen Blood specimen (specimen) - Blood Performing Organization Address City/[facility]/ZIP Code Phon e Number [facility] LABORATORY [address] [place] [address] SERVICES ANAEROBE CULTURE/SMEAR(INC. AEROBES), TISSUE (06/29/2017 11:49 EST) Gram Smear Result Mod [facility] Polys LABORATORY SERVICES Gram Smear Result No bacteria seen [facility] LABORATORY SERVICES Result Few [facility] STAPHYLOCOCCUS AUREUS LABORATORY SERVICES Result Supplementary report. [facility] LABORATORY SERVICES Specimen Other (qualifier value) - Tissue Organism Antibiotic Method Susceptibility Few staphylococcus Susceptibility SUSCEPTIBILITY (ERIN) aureus comment Few staphylococcus Susceptibility SUSCEPTIBILITY (ERIN) Suscepti ble to aureus comment nafcillin, cephalosporins a nd other beta lacta m antibiotics (mec A gene product absent). Few staphylococcus Oxacillin SUSCEPTIBILITY (ERIN) Suscepti ble aureus Few staphylococcus Cefazolin SUSCEPTIBILITY (ERIN) Suscepti ble aureus Few staphylococcus Vancomycin SUSCEPTIBILITY (ERIN) Suscepti ble aureus Few staphylococcus Erythromycin SUSCEPTIBILITY (ERIN) Suscepti ble aureus Few staphylococcus Clindamycin SUSCEPTIBILITY (ERIN) Suscepti ble aureus Few staphylococcus Ciprofloxacin SUSCEPTIBILITY (ERIN) Suscepti ble aureus Few staphylococcus Tetracycline SUSCEPTIBILITY (ERIN) Suscepti ble aureus Few staphylococcus Trimethoprim-Sulfamet SUSCEPTIBILITY (ERIN) Bryant sceptible aureus hoxazole Few staphylococcus Rifampin SUSCEPTIBILITY (ERIN) Suscepti ble aureus Few staphylococcus Daptomycin SUSCEPTIBILITY (ERIN) Suscepti ble aureus Performing Organization Address City/State/ZIP Code Phon e Number [facility] LABORATORY [address] [place] [address] SERVICES (ABNORMAL) BLOOD GAS, CG8 ISTAT (06/29/2017 11:03 EST) pH, i-STAT 7.39 7.35 - 7.45 [facility] LABORATORY SERVICES pCO2, i-STAT 38 35 - 45 mmHg [facility] LABORATORY SERVICES pO2, i-STAT 269 (H) 80 - 105 mmHg [facility] LABORATORY SERVICES TCO2, i-STAT 24 23 - 27 mEq/L [facility] LABORATORY SERVICES O2 Saturation 100 (H) 95 - 98 % [facility] LABORATORY SERVICES Sodium, i-STAT 139 136 - 145 [facility] mEq/L LABORATORY SERVICES Potassium, i-STAT 3.9 3.5 - 5.0 [facility] mEq/L LABORATORY SERVICES Glucose, I-STAT 142 (H) 70 - 100 [facility] mg/dl LABORATORY SERVICES Hematocrit,iSTAT 22 (L) 34.9 - 44.4 % [facility] LABORATORY SERVICES Calcium, Ionized 1.12 1.12 - 1.32 [facility] mmol/L LABORATORY SERVICES Base Deficit, 2 [facility] i-STAT LABORATORY SERVICES Sample Type ARTERIAL [facility] LABORATORY manager facility ID [id number] [facility] Comment: LABORATORY Test performed by Anesthesia. SERVICES For non-arterial reference ranges, please see ISTAT procedure. Specimen Blood Performing Organization Address [facility]/ZIP Code Phon e Number [facility] LABORATORY [address] [place] [address] SERVICES ACT, CELITE ISTAT (06/29/2017 10:37 EST) Activated Clotting 192 [facility] Time LABORATORY manager facility ID [id number] [facility] Comment: LABORATORY SERVICES Test performed by Anesthesia. Baseline ref range is less than or equal to 160 second s For non baseline ref ranges see procedure. Specimen Blood Performing Organization Address [facility] Phon e Number [facility] LABORATORY [address] [place] [address] SERVICES ACT, CELITE ISTAT (06/29/2017 10:28 EST) Activated Clotting 148 [facility] Time LABORATORY manager facility ID [id number] [facility] Comment: LABORATORY SERVICES Test performed by Anesthesia. Baseline ref range is less than or equal to 160 second s For non baseline ref ranges see procedure. Specimen Blood Performing Organization Address [facility]/ZIP [facility] Phon e Number [facility] LABORATORY [address] [place] [address] SERVICES ABO/RH (06/29/2017 9:59 EST) Pathologist Sig nature ABO A [facility] BLOOD BAN K Rh Factor Positive [facility] BLOOD BAN K Specimen Performing Organization Address City/[facility]/ZIP Code Phon e Number [facility] BLOOD BANK [address] [place] [address] [facility] BLOOD BANK ACT, CELITE ISTAT (06/29/2017 9:45 EST) Activated Clotting 261 [facility] Time LABORATORY manager facility ID [id number] [facility] Comment: LABORATORY SERVICES Test performed by Anesthesia. Baseline ref range is less than or equal to 160 second s For non baseline ref ranges see procedure. Specimen Blood Performing Organization Address City/[facility]/ZIP Code Phon e Number [facility] LABORATORY [address] [place] [address] SERVICES PREPARE RED BLOOD CELLS (06/29/2017 9:36 EST) Product Code [id number] [facility] BLOOD BANK Donor Number [id number] [facility] BLOOD BANK Unit ABO O [facility] BLOOD BANK Unit Rh POS [facility] BLOOD BANK Unit Status TR^Transfuse [facility] BLOOD BANK Product Expiration [id number] [facility] BLOOD BANK Unit Blood Type Code 5100 [facility] BLOOD BANK Coding System [id number] [facility] BLOOD BANK Specimen Performing Organization Address City/State/ZIP Code Phon e Number [facility] BLOOD BANK [address] BLOOD BANK PREPARE RED BLOOD CELLS (06/29/2017 9:36 EST) Product Code [id number] [facility] BLOOD BANK Donor Number [id number] [facility] BLOOD BANK Unit ABO O [facility] BLOOD BANK Unit Rh POS [facility] BLOOD BANK Unit Status RE^Released From [facility] BLOOD BANK Product Expiration [id number] [facility] BLOOD BANK Unit Blood Type 5100 [facility] BLOOD BANK Coding System [id number] [facility] BLOOD BANK Specimen Performing Organization Address City/State/ZIP Code Phon e Number [facility] BLOOD BANK [address] BLOOD BANK PREPARE FROZEN PLASMA (06/29/2017 9:36 EST) Product Code [id number] [facility] BLOOD BANK Donor Number [id number] [facility] BLOOD BANK Unit ABO A [facility] BLOOD BANK Unit Rh POS [facility] BLOOD BANK Unit Status RE^Released From [facility] BLOOD BANK Product Expiration [id number] [facility] BLOOD BANK Unit Blood Type 6200 [facility] BLOOD BANK Coding System [id number] [facility] BLOOD BANK Specimen Performing Organization Address City/State/ZIP Code Phon e Number [facility] BLOOD BANK [address] BLOOD BANK PREPARE FROZEN PLASMA (06/29/2017 9:36 EST) Product Code [id number] [facility] BLOOD BANK Donor Number [id number] [facility] BLOOD BANK Unit ABO A [facility] BLOOD BANK Unit Rh POS [facility] BLOOD BANK Unit Status RE^Released From [facility] BLOOD BANK Product Expiration [id number] [facility] BLOOD BANK Unit Blood Type 6200 [facility] BLOOD BANK Coding System [id number] [facility] BLOOD BANK Specimen Performing Organization Address City/State/ZIP Code Phon e Number [facility] BLOOD BANK [address] [address] BLOOD BANK PREPARE FROZEN PLASMA (06/29/2017 9:36 EST) Product Code [id number] [facility] BLOOD BANK Donor Number [id number] [facility] BLOOD BANK Unit ABO A [facility] BLOOD BANK Unit Rh POS [facility] BLOOD BANK Unit Status RE^Released From [facility] BLOOD BANK Product Expiration [id number] [facility] BLOOD BANK Unit Blood Type 6200 [facility] BLOOD BANK Coding System [id number] [facility] BLOOD BANK Specimen Performing Organization Address City/State/ZIP Code Phon e Number [facility] BLOOD BANK [address] BLOOD BANK PREPARE FROZEN PLASMA (06/29/2017 9:36 EST) Product Code [id number] [facility] BLOOD BANK Donor Number [id number] [facility] BLOOD BANK Unit ABO A [facility] BLOOD BANK Unit Rh NEG [facility] BLOOD BANK Unit Status RE^Released From [facility] BLOOD BANK Product Expiration [id number] [facility] BLOOD BANK Unit Blood Type 0600 [facility] BLOOD BANK Coding System [id number] [facility] BLOOD BANK Specimen Performing Organization Address City/State/ZIP Code Phon e Number [facility] BLOOD BANK [address] BLOOD BANK (ABNORMAL) BLOOD GAS, CG8 ISTAT (06/29/2017 9:23 EST) pH, i-STAT 7.37 7.35 - 7.45 [facility] LABORATORY SERVICES pCO2, i-STAT 44 35 - 45 mmHg [facility] LABORATORY SERVICES pO2, i-STAT 228 (H) 80 - 105 mmHg [facility] LABORATORY SERVICES TCO2, i-STAT 27 23 - 27 mEq/L [facility] LABORATORY SERVICES O2 Saturation 100 (H) 95 - 98 % [facility] LABORATORY SERVICES Sodium, i-STAT 139 136 - 145 [facility] mEq/L LABORATORY SERVICES Potassium, i-STAT 3.8 3.5 - 5.0 [facility] mEq/L LABORATORY SERVICES Glucose, I-STAT 127 (H) 70 - 100 [facility] mg/dl LABORATORY SERVICES Hematocrit,iSTAT 19 (LL) 34.9 - 44.4 % [facility] LABORATORY SERVICES Calcium, Ionized 1.18 1.12 - 1.32 [facility] mmol/L LABORATORY SERVICES Base Excess, 0 [facility] i-STAT LABORATORY SERVICES Sample Type ARTERIAL [facility] LABORATORY manager facility ID [id number] [facility] Comment: LABORATORY Test performed by Anesthesia. SERVICES For non-arterial reference ranges, please see ISTAT procedure. Specimen Blood Performing Organization Address City/[facility] Code Phon e Number [facility] LABORATORY [address] [place] [address] SERVICES PREPARE RED BLOOD CELLS (06/29/2017 9:22 EST) Product Code [id number] [facility] BLOOD BANK Donor Number [id number] [facility] BLOOD BANK Unit ABO A [facility] BLOOD BANK Unit Rh POS [facility] BLOOD BANK Unit Status RE^Released From [facility] BLOOD BANK Product Expiration [id number] [facility] BLOOD BANK Unit Blood Type 6200 [facility] CENTER BLOOD BANK Coding System [id number] [facility] BLOOD BANK Specimen Performing Organization Address City/State/[facility] Code Phon e Number [facility] BLOOD BANK [address] BLOOD BANK PREPARE RED BLOOD CELLS (06/29/2017 9:22 EST) Product Code [id number] [facility] BLOOD BANK Donor Number [id number] [facility] BLOOD BANK Unit ABO A [facility] BLOOD BANK Unit Rh POS [facility] BLOOD BANK Unit Status RE^Released From [facility] BLOOD BANK Product Expiration [id number] [facility] BLOOD BANK Unit Blood Type 6200 [facility] BLOOD BANK Coding System [id number] [facility] BLOOD BANK Specimen Performing Organization Address City/[facility]/ZIP Code Phon e Number [facility] BLOOD BANK [address] BLOOD BANK PREPARE RED BLOOD CELLS (06/29/2017 9:22 EST) Product Code [id number] [facility] BLOOD BANK Donor Number [id number] [facility] BLOOD BANK Unit ABO A [facility] BLOOD BANK Unit Rh POS [facility] BLOOD BANK Unit Status RE^Released From [facility] BLOOD BANK Product Expiration [id number] [facility] BLOOD BANK Unit Blood Type 6200 [facility] BLOOD BANK Coding System [id number] [facility] BLOOD BANK Specimen Performing Organization Address City/[facility]/ZIP Code Phon e Number [facility] BLOOD BANK [address] BLOOD BANK PREPARE RED BLOOD CELLS (06/29/2017 9:22 EST) Product Code [id number] [facility] BLOOD BANK Donor Number [id number] [facility] BLOOD BANK Unit ABO A [facility] BLOOD BANK Unit Rh POS [facility] BLOOD BANK Unit Status RE^Released From [facility] BLOOD BANK Product Expiration [id number] [facility] BLOOD BANK Unit Blood Type 6200 [facility] BLOOD BANK Coding System [id number] [facility] BLOOD BANK Specimen Performing Organization Address City/State/ZIP Code Phon e Number [facility] BLOOD BANK [address] BLOOD BANK ACT, CELITE ISTAT (06/29/2017 8:47 EST) Activated Clotting 156 [facility] Time LABORATORY manager facility ID [id number] [facility] Comment: LABORATORY SERVICES Test performed by Anesthesia. Baseline ref range is less than or equal to 160 second s For non baseline ref ranges see procedure. Specimen Blood Performing Organization Address City/State/ZIP Code Phon e Number [facility] LABORATORY [address] [place] [address] SERVICES PHOSPHORUS (06/29/2017 3:18 EST) Pathologist Sig nature Phosphorus 3.1 2.5 - 4.5 mg/dl [facility] LABORA TORY SERVICES Specimen Blood specimen (specimen) - Blood Performing Organization Address City/[facility]/ZIP Code Phon e Number [facility] LABORATORY [address] [place] [address] SERVICES MAGNESIUM (06/29/2017 3:18 EST) Pathologist Sig nature Magnesium 2.1 1.7 - 2.8 mg/dl [facility] LABORA TOR SERVICES Specimen Blood specimen (specimen) - Blood Performing Organization Address City/[facility]/ZIP Code Phon e Number [facility] LABORATORY [address] [place] [address] SERVICES (ABNORMAL) HEMAGRAM AND DIFFERENTIAL (06/29/2017 3:18 EST) Pathologist Sig nature WBC 8.21 4.0 - 12.4 [facility] K/m LABORATORY SERVICES RBC 3.14 (L) 3.86 - 5.04 [facility] M[facility] LABORATORY SERVICES Hemoglobin 8.2 (L) 11.6 - 15.2 [facility] gm/dl LABORATORY SERVICES HCT 25.4 (L) 34.9 - 44.4 % [facility] LABORATORY SERVICES MCV 81 81 - 98 fl [facility] LABORATORY SERVICES MCH 26.1 (L) 26.7 - 33.3 pg [facility] LABORATORY SERVICES MCHC 32.3 32.1 - 35.9 [facility] gm/dl LABORATORY SERVICES RDW-CV 13.1 <14.7 % [facility] LABORATORY SERVICES RDW-SD 37.9 <50.4 fl [facility] LABORATORY SERVICES PLT 253 141 - 377 K/[facility] LABORATORY SERVICES MPV 9.6 9.5 - 12.7 fl [facility] LABORATORY SERVICES Neutrophils 80.1 % [facility] LABORATORY SERVICES Lymphocytes 10.6 % [facility] LABORATORY SERVICES Monocytes 6.3 % [facility] LABORATORY SERVICES Eosinophils 1.6 % [facility] LABORATORY SERVICES Basophils 0.2 % [facility] LABORATORY SERVICES Immature Grans 1.2 % [facility] LABORATORY SERVICES ABS Neutrophils 6.57 2.20 - 8.85 [facility] K[facility] LABORATORY SERVICES ABS Lymphs 0.87 (L) 1.09 - 3.30 [facility] K[facility] LABORATORY SERVICES ABS Monocytes 0.52 0.1 - 0.8 K/cmm [facility] LABORATORY SERVICES ABS Eosinophils 0.13 0.03 - 0.61 [facility] LABORATORY SERVICES ABS Basophils 0.02 0.01 - 0.11 [facility] LABORATORY SERVICES ABS Immature Grans 0.10 (H) 0 - 0.06 K/[facility] LABORATORY SERVICES Type of Diff: Automated [facility] LABORATORY SERVICES Specimen Blood specimen (specimen) - Blood Performing Organization Address [facility] e [facility] LABORATORY [address] [place] [address] SERVICES ELECTROLYTES (06/29/2017 3:18 EST) Pathologist Sig nature Sodium 138 136 - 145 mEq/L [facility] LABORA TORY SERVICES Potassium 4.1 3.5 - 5.0 mEq/L [facility] LABORA TORY SERVICES Chloride 105 96 - 110 mEq/L [facility] LABORAT ORY SERVICES CO2 25 22 - 32 mEq/L [facility] LABORATO RY SERVICES Specimen Blood specimen (specimen) - Blood Performing Organization Address [facility] e [facility] LABORATORY [address] [place] [address] SERVICES CREATININE (06/29/2017 3:18 EST) Creatinine 0.72 0.52 - 1.04 [facility] mg/dl LABORATORY SERVICES GFR, Calculated 110 >60 [facility] Comment: ml/min/1.73m2 LABORATORY eGFR calculated using CKD-EPI equation for SERVICES non Americans. Multiply eGFR by 1.16 for Americans. Specimen Blood specimen (specimen) - Blood Performing Organization Address City/[facility]/ZIP Code Phon e Number [facility] LABORATORY [address] [place] [address] SERVICES CALCIUM, IONIZED (06/29/2017 3:18 EST) Pathologist Sig nature Calcium, Ionized 1.16 1.12 - 1.32 mmol/L [facility] LABORATORY SERVICES Specimen Blood specimen (specimen) - Blood Performing Organization Address City/[facility]/ZIP Code Phon e Number [facility] LABORATORY [address] [place] [address] SERVICES (ABNORMAL) BUN (06/29/2017 3:18 EST) Pathologist Sig nature BUN 5 (L) 10 - 26 mg/dl [facility] LABORATO RY SERVICES Specimen Blood specimen (specimen) - Blood Performing Organization Address [facility]/ZIP Code Phon e Number [facility] LABORATORY [address] [place] [address] SERVICES HEPARIN LEVEL - UNFRACTIONATED HEPARIN (06/29/2017 3:18 EST) Heparin Level-UFH <0.10 IU/mL [facility] Comment: LABORATORY SERVICES Unfractionated heparin therapeutic range = 0.3-0.7 IU/ ml This test is not intended for monitoring direct Xa inhibitors, direct thrombin inhibitors, or fondaparinux. Exogenous ATIII is NOT supplied in this assay. For unexpected or persistently low levels, consider measuring patient's ATIII level. Sample retested, result confirmed Specimen Blood specimen (specimen) - Blood Performing Organization Address City/[facility]/ZIP Code Phon e Number [facility] LABORATORY [address] [place] [address] SERVICES EKG 12-LEAD (06/28/2017 20:43 EST) Specimen Narrative [facility] EKG - 07/02/2017 13:2 7 EST ? [facility] ? Test Date: ?2017-06-28 Pat Name: ? LINDSAY JEAN BAPTISTE ?Department: ?? NIELSEN 3 ? Room: ? M312 Gender: ? 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 [id number] : ?1980 ? Requested By: LYRIC MENJIVAR Order Number: [id number] ? Reading : ?? DENIS ROSARIO MD ? Measurements Intervals ?[facility] ? Rate: ? 79 ? P: ?2 NM: ? 159 ?QRS: ?50 QRSD: ? 100 ?T: ?27 QT: ? 374 ? QTc: ?430 ? Interpretive Statements SINUS RHYTHM Automated Interpretation. ??Provider Int erpretation to follow. No previous ECG available for comparison I reviewed the tracing and have either a greed or edited the findings in this report. Electronically Signed On 8 13:27:57 EST by DENIS ROSARIO MD. 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 Provider Inter pretation to follow. No previous ECG available for comparison I reviewed the tracing and have either a greed or edited the findings in this report. Electronically Signed On 13:27:57 EST by DENIS ROSARIO MD. Performing Organization Address City/State/ZIP Code Phon e Number [facility] EKG MRSA PCR (06/28/2017 16:53 EST) Pathologist Sig nature Result No Staphylococcus aureus [facility] ER detected by PCR. LABORATORY SERVICES Specimen Other (qualifier value) - Nasal Performing Organization Address City/[facility]/ZIP Code Phon e Number [facility] LABORATORY [address] [place] [address] SERVICES HEPARIN LEVEL - UNFRACTIONATED HEPARIN (06/28/2017 16:49 EST) Heparin Level-UFH 0.11 IU/mL [facility] Comment: LABORATORY SERVICES Unfractionated heparin therapeutic range = 0.3-0.7 IU/ ml This test is not intended for monitoring direct Xa inhibitors, direct thrombin inhibitors, or fondaparinux. Exogenous ATIII is NOT supplied in this assay. For unexpected or persistently low levels, consider measuring patient's ATIII level. Sample retested, result confirmed Specimen Blood specimen (specimen) - Blood Performing Organization Address City/[facility]/ZIP Code Phon e Number [facility] LABORATORY [address] [place] [address] SERVICES TYPE AND SCREEN (06/28/2017 16:45 EST) ABO A [facility] BLOOD BANK Rh Factor Positive [facility] BLOOD BANK Antibody Screen Negative [facility] BLOOD BANK Specimen Expires: 07/01/2017 @ 23:59 [facility] Specimen Blood specimen (specimen) Performing Organization Address City/[facility]/ZIP Code Phon e Number [facility] BLOOD BANK [address] BLOOD BANK PREPARE RED BLOOD CELLS (06/28/2017 16:27 EST) Product Code [id number] [facility] BLOOD BANK Donor Number [id number] [facility] BLOOD BANK Unit ABO A [facility] BLOOD BANK Unit Rh POS [facility] BLOOD BANK Unit Status TR^Transfuse [facility] BLOOD BANK Product Expiration [id number] [facility] Date BLOOD BANK Unit Blood Type Code 6200 [facility] BLOOD BANK Coding System [id number] [facility] BLOOD BANK Specimen Performing Organization Address [facility]/ZIP Code Phon e Number [facility] BLOOD BANK [address] BLOOD BANK PREPARE RED BLOOD CELLS (06/28/2017 16:27 EST) Product Code [id number] [facility] BLOOD BANK Donor Number [id number] [facility] BLOOD BANK Unit ABO A [facility] BLOOD BANK Unit Rh POS [facility] BLOOD BANK Unit Status TR^Transfuse [facility] BLOOD BANK Product Expiration [id number] [facility] Date BLOOD BANK Unit Blood Type Code 6200 [facility] BLOOD BANK Coding System [id number] [facility] BLOOD BANK Specimen Blood specimen (specimen) Performing Organization Address [facility]/ZIP Code Phon e Number [facility] BLOOD BANK [address] [place] [address] BLOOD BANK BACTERIAL CULTURE, BLOOD (06/28/2017 12:55 EST) Pathologist Sig nature Result No growth [facility] LABORATOR Y SERVICES Specimen Blood specimen (specimen) - Blood Performing Organization Address City/[facility]/ZIP Code Phon e Number [facility] LABORATORY [address] [place] [address] SERVICES PHOSPHORUS (06/28/2017 12:32 EST) Pathologist Sig nature Phosphorus 4.1 2.5 - 4.5 mg/dl [facility] LABORA TORY SERVICES Specimen Blood specimen (specimen) - Blood Performing Organization Address City/State/ZIP Code Phon e Number [facility] LABORATORY [address] [place] [address] SERVICES MAGNESIUM (06/28/2017 12:32 EST) Pathologist Sig nature Magnesium 2.1 1.7 - 2.8 mg/dl [facility] LABORA TORY SERVICES Specimen Blood specimen (specimen) - Blood Performing Organization Address City/State/ZIP Code Phon e Number [facility] LABORATORY [address] [place] [address] SERVICES (ABNORMAL) HEMAGRAM AND DIFFERENTIAL (06/28/2017 12:32 EST) Pathologist Sig nature WBC 5.31 4.0 - 12.4 [facility] K[facility] LABORATORY SERVICES RBC 3.06 (L) 3.86 - 5.04 [facility] M[facility] LABORATORY SERVICES Hemoglobin 8.1 (L) 11.6 - 15.2 [facility] gm/dl LABORATORY SERVICES HCT 25.1 (L) 34.9 - 44.4 % [facility] LABORATORY SERVICES MCV 82 81 - 98 fl [facility] LABORATORY SERVICES MCH 26.5 (L) 26.7 - 33.3 pg [facility] LABORATORY SERVICES MCHC 32.3 32.1 - 35.9 [facility] gm/dl LABORATORY SERVICES RDW-CV 13.2 <14.7 % [facility] LABORATORY SERVICES RDW-SD 39.8 <50.4 fl [facility] LABORATORY SERVICES PLT 262 141 - 377 K/[facility] LABORATORY SERVICES MPV 10.0 9.5 - 12.7 fl [facility] LABORATORY SERVICES Neutrophils 73.1 % [facility] LABORATORY SERVICES Lymphocytes 15.3 % [facility] LABORATORY SERVICES Monocytes 7.2 % [facility] LABORATORY SERVICES Eosinophils 1.9 % [facility] LABORATORY SERVICES Basophils 0.4 % [facility] LABORATORY SERVICES Immature Grans 2.1 % [facility] LABORATORY SERVICES ABS Neutrophils 3.89 2.20 - 8.85 [facility] LABORATORY SERVICES ABS Lymphs 0.81 (L) 1.09 - 3.30 [facility] K[facility] LABORATORY SERVICES ABS Monocytes 0.38 0.1 - 0.8 K/[facility] LABORATORY SERVICES ABS Eosinophils 0.10 0.03 - 0.61 [facility] LAB[facility] SERVICES ABS Basophils 0.02 0.01 - 0.11 [facility] LABORATORY SERVICES ABS Immature Grans 0.11 (H) 0 - 0.06 /[facility] LABORATORY SERVICES Type of Diff: Automated [facility] LABORATORY SERVICES Specimen Blood specimen (specimen) - Blood Performing Organization Address [facility]/ZIP [facility] e [facility] LABORATORY [address] [place] [address] SERVICES CALCIUM, IONIZED (06/28/2017 12:32 EST) Pathologist Sig nature Calcium, Ionized 1.14 1.12 - 1.32 mmol/L [facility] LABORATORY SERVICES Specimen Blood specimen (specimen) - Blood Performing Organization Address [facility] LABORATORY [address] [place] [address] SERVICES BUN (06/28/2017 12:32 EST) Pathologist Sig nature BUN 10 10 - 26 mg/dl [facility] LABORATO RY SERVICES Specimen Blood specimen (specimen) - Blood Performing Organization Address [facility] e Number [facility] LABORATORY [address] [place] [address] SERVICES TEST, URINE (06/28/2017 12:30 EST) Result- Neg Neg [facility] Test, Ur Comment: LABORATORY NOTE: SERVICES False negative results may occur in women who are beyond 5-8 weeks gestation. Diagnosis of should be based on a correlation of test results with typical clinical signs and symptoms. Specimen Urine (substance) - Urine Performing Organization Address [facility] e [facility] LABORATORY [address] [place] [address] SERVICES (ABNORMAL) UA CHEMICAL (DIPSTICK ONLY) (06/28/2017 12:25 EST) Color, UA Yellow [facility] LABORATORY SERVICES Clarity, UA Clear [facility] LABORATORY SERVICES Glucose, UA Neg Neg [facility] LABORATORY SERVICES Bilirubin, UA Neg Neg [facility] LABORATORY SERVICES Ketones, UA Neg Neg [facility] LABORATORY SERVICES Refractometer 1.018 1.001 - 1.035 [facility],Urine [facility]ENTER LABORATORY SERVICES Blood, UA 2+ (A) Neg [facility] LABORATORY SERVICES pH, UA 7.0 4.6 - 8.0 [facility] LABORATORY SERVICES Protein, UA Neg Neg [facility] LABORATORY SERVICES Urobilinogen, UA Normal Normal [facility] E.U./dl [facility]ENTER LABORATORY SERVICES Nitrite, UA Neg Neg [facility] LABORATORY SERVICES Leuk Esterase Neg Neg [facility] LABORATORY SERVICES UA Method Used [facility] Comment: CENTER LABORATORY Testing performed using SERVICES Britta [id number]. Specimen Urine Performing Organization Address City/State/ZIP Code Phon e Number [facility] LABORATORY [address] [place] [address] SERVICES URINE CULTURE IF UA POSITIVE - NON POCT URINALYSIS ONLY (06/28/2017 12:25 EST) Culture if Culture not [facility] Indicated indicated by LABORATORY SERVICES urinalysis results. 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 Staphylococcus aureus infection Methicillin susceptible Staphylococcus a ureus in conditions classified elsewhere and of unspecified site IVDU (intravenous drug user) Other, mixed, or unspecified nondependen t drug abuse, unspecified History of adverse drug reaction Personal history of allergy to unspecifi ed medicinal agent Acute post-operative pain Pseudoaneurysm (HCC-CMS) [facility] [facility] Aneurysm of unspecified site Fever, unspecified fever cause documented in this encounter Administered Medications Inactive Administered Medications - up to 3 most recent administrations Medication Order MAR Action Action Date Dose Rate Site acetaminophen (OFIRMEV) IV Given 06/30/2017 13:35 EST 1,000 mg solution 1,000 mg 1,000 mg, intravenous, EVERY 6 HOURS, 4 doses, First dose on Sun06/29/17 at 2000, Last dose on Sun06/30/17 at 1400, Is the patient NPO? If No, state reason why oral acetaminophen cannot be used in Comment field. Yes, Is this patient nothing by rectum? If No, state why rectal acetaminophen cannot be used in the Comment field. Yes, Are NSAIDs contraindicated in this patient? No, Is the patient in ED, PACU or ICU? No, Routine Given 06/30/2017 8:30 EST 1,000 mg Given 06/30/2017 1:53 EST 1,000 mg acetaminophen (OFIRMEV) IV solution 1,00 0 mg Given 07/01/2017 2:23 EST 1,000 mg 1,000 mg, intravenous, EVERY 6 HOURS, 4 doses, First dose (after last reorder) on 06/30/17 at 2000, Last dose on 07/01/17 at 1400, Is the patient NPO? If No, state reason why oral acetaminophen cannot be used in Comment field. Yes, Is this patient nothing by rectum? If No, state why rectal acetaminophen cannot be used in the Comment field. Yes, Are NSAIDs contraindicated in this patient? No, Is the patient in ED, PACU or ICU? No, Routine Given 06/30/2017 20:16 EST 1,000 mg acetaminophen (TYLENOL) tablet 1,000 mg Given 06/28/2017 23:29 EST 1,000 mg 1,000 mg, oral, EVERY 6 HOURS PRN, Starting on Elsa 06/28/17 at 1253, Until Sun06/29/17 at 1244, Pain, Routine Given 06/28/2017 14:48 EST 1,000 mg acetaminophen (TYLENOL) tablet 1,000 mg Given 07/06/2017 5:42 EST 1,000 mg 1,000 mg, oral, EVERY 6 HOURS, First dose on 07/01/17 at 0730, Until Discontinued, Routine Given 07/05/2017 23:08 EST 1,000 mg Given 07/05/2017 18:05 EST 1,000 mg alteplase (CATHFLO ACTIVASE) injection 2 mg 2 mg, intercatheter, PRN, Starting on Mo n 07/02/17 at 0955, Until Sun07/06/17 at 1315, Line Care, Routine aspirin chewable tablet 81 mg Given 06/28/2017 17:41 EST 81 mg 81 mg, oral, DAILY, First dose on Elsa 06/28/17 at 1715, Until Discontinued, Routine aspirin chewable tablet 81 mg Given 07/06/2017 8:04 EST 81 mg 81 mg, oral, DAILY, First dose on 07/01/17 at 0900, Until Discontinued, Routine Given 07/05/2017 9:53 EST 81 mg Given 07/04/2017 8:00 EST 81 mg aspirin suppository 300 mg Given 06/30/2017 10:12 EST 300 mg 300 mg, rectal, DAILY, First dose on 06/30/17 at 0900, Until Discontinued, Routine bisacodyl (DULCOLAX) suppository 10 mg 10 mg, rectal, DAILY PRN, Starting on [place] 07/01/17 at 2013, Until Sun07/06/17 at 1315, Constipation, Routine chlorhexidine gluconate 2 % cloth 1 Each Given 06/28/2017 21:30 EST 1 Each 1 Each, topical, DAILY, First dose on Elsa 06/28/17 at 2030, Until Discontinued, Routine DAPTOmycin (CUBICIN) 495 mg in sodium chloride Given 0 07/05/2017 16:45 EST 495 mg (NS) 0.9 % 50 mL IVPB 495 mg (rounded from 493.6 mg = 8 mg/kg ? 61.7 kg), intravenous, Administer over 30 Minutes, EVERY 24 HOURS, 7 doses, First dose on Sun07/04/17 at 1715, Last dose on Sun07/10/17 at 1715, Controlled antibiotic, has ID approved? Yes, It is recommended to discontinue statins for the duration of daptomycin therapy due to increased risk of rhabdomyolysis. If the patient is on a statin (atorvastatin, simvastatin, rosuvastatin, etc.) - has it been discontinued? N/A, patient not previously on statin, STAT Given 07/04/2017 18:29 EST 495 mg dextrose 5 % and 0.45 % NaCl with Rate Documented 06/30/2017 13:00 EST 100 mL/hr KCl 20 mEq/L infusion at 100 mL/hr, intravenous, CONTINUOUS, Starting on Elsa 06/28/17 at 1830, Until 06/30/17 at 1449, Routine Rate Documented 06/30/2017 12:00 EST 100 mL/hr Rate Documented 06/30/2017 11:00 EST 100 mL/hr dextrose 5 % and 0.45 % NaCl with Rate Documented 07/01/2017 8:51 EST 75 mL/hr KCl 20 mEq/L infusion at 75 mL/hr, intravenous, CONTINUOUS, Starting on 06/30/17 at 1515, Until 07/01/17 at 1036, Routine Rate Documented 06/30/2017 19:38 EST 75 mL/hr New Bag 06/30/2017 17:54 EST 75 mL/hr DIAZepam (VALIUM) 2.5-5 mg Given 06/29/2017 21:49 EST 2.5 mg 2.5-5 mg, intravenous, AT BEDTIME PRN, Starting on Sun06/29/17 at 2017, Until Sun06/30/17 at 2026, Anxiety, insomina, Routine diphenhydrAMINE (BENADRYL) capsule 25 mg Given 07/01/2017 20:15 EST 25 mg 25 mg, oral, EVERY 6 HOURS PRN, Starting on Sun07/01/17 at 1612, Until Sun07/06/17 at 1315, Itching, Routine docusate sodium (COLACE) capsule 100 mg Given 07/05/2017 20:27 EST 100 mg 100 mg, oral, 2 TIMES DAILY PRN, Starting on Sun07/01/17 at 2013, Until Sun07/06/17 at 1315, Constipation, Routine Given 07/04/2017 21:18 EST 100 mg Given 07/04/2017 8:45 EST 100 mg electrolyte-A (PLASMALYTE-A) Rate Documented 07/04/2017 6:00 EST 100 mL/hr solution at 100 mL/hr, intravenous, CONTINUOUS, Starting on Sun07/04/17 at 0300, Until Sun07/04/17 at 1652, Routine Rate Documented 07/04/2017 5:00 EST 100 mL/hr New Bag 07/04/2017 4:49 EST 100 mL/hr enoxaparin (LOVENOX) injection 40 mg Given 07/03/2017 21:31 EST 40 mg 40 mg, subcutaneous, AT BEDTIME, First dose (after last reorder) on 06/30/17 at 2100, Until Discontinued, Routine Given 07/02/2017 20:29 EST 40 mg Given 07/01/2017 20:15 EST 40 mg enoxaparin (LOVENOX) injection 60 mg Given 07/05/2017 20:27 EST 60 mg 60 mg (rounded from 61.7 mg = 1 mg/kg ? 61.7 kg), subcutaneous, EVERY 12 HOURS, First dose on Sun07/04/17 at 2100, Until Discontinued, Routine Given 07/05/2017 9:53 EST 60 mg Given 07/04/2017 21:18 EST 60 mg fentaNYL citrate (PF) 50 mcg/mL injection 100 Given 13:12 EST 100 mcg mcg 100 mcg, intravenous, NOW X1, 1 dose, On Sun06/29/17 at 1315, Routine fentaNYL citrate (PF) 50 mcg/mL Given by Other 06/29/2017 13:02 EST 1 00 mcg injection 100 mcg 100 mcg, intravenous, NOW X1, 1 dose, On Sun06/29/17 at 1315, Routine fentaNYL citrate (PF) 50 mcg/mL injectio n 1 dose, Starting on Sun06/29/17 at 1238, Until Sun at 1302 heparin in 05/01 NS 25,000 Rate Documented 06/28/2017 22:00 1,500 Uni ts/hr 15 mL/hr unit/250 mL infusion EST 1,500 Units/hr (15 mL/hr), intravenous, at 15 mL/hr, CONTINUOUS, Starting on Elsa 06/28/17 at 1215, Until Elsa 06/28/17 at 2359, Routine Rate Documented 06/28/2017 21:00 EST 1,500 Units/hr 15 mL/hr Rate Documented 06/28/2017 20:00 EST 1,500 Units/hr 15 mL/hr hydrocortisone 1 % cream Given 07/01/2017 21:31 EST topical, 3 TIMES DAILY PRN, Starting on Sun07/01/17 at 1611, Until Sun07/06/17 at 1315, Itching, Rash Given 07/01/2017 17:34 EST Back HYDROmorphone (DILAUDID) tablet 2-4 mg Given 07/03/2017 14:28 EST 4 mg 2-4 mg, oral, EVERY 4 HOURS PRN, Starting on Sun07/03/17 at 0617, Until Sun07/03/17 at 1804, Pain, Routine Given 07/03/2017 9:46 EST 4 mg HYDROmorphone (DILAUDID) tablet 2-5 mg Given 07/03/2017 18:31 EST 5 mg 2-5 mg, oral, EVERY 4 HOURS PRN, Starting on Sun07/03/17 at 1804, Until Sun07/03/17 at 2101, Pain, Routine HYDROmorphone (DILAUDID) tablet 2-6 mg Given 07/04/2017 6:09 EST 4 mg 2-6 mg, oral, EVERY 3 HOURS PRN, Starting on Sun07/03/17 at 2115, Until Sun07/04/17 at 0817, Pain, Routine Given 07/04/2017 2:28 EST 4 mg Given 07/03/2017 22:59 EST 4 mg HYDROmorphone (DILAUDID) tablet 2-8 mg Given 07/06/2017 8:04 EST 8 mg 2-8 mg, oral, EVERY 4 HOURS PRN, Starting on Sun07/05/17 at 1904, Until Sun07/06/17 at 1315, Pain, For 3-6/10 pain give 2 mg ; for 7-8/10 for 6 mg; for 8-10 pain give 8 mg, Routine Given 07/06/2017 3:07 EST 8 mg Given 07/05/2017 23:09 EST 4 mg HYDROmorphone (DILAUDID) tablet 6 mg Given 07/05/2017 18:04 EST 6 mg 6 mg, oral, NOW X1, 1 dose, On Sun07/05/17 at 1730, Routine HYDROmorphone (DILAUDID) tablet 6-8 mg Given 07/04/2017 13:49 EST 6 mg 6-8 mg, oral, EVERY 3 HOURS PRN, Starting on Sun07/04/17 at 0817, Until Sun07/04/17 at 1450, Pain, Routine Given 07/04/2017 9:19 EST 6 mg HYDROmorphone 1 mg/ml (DILAUDID) ASBESTOS REMOVER Rate Documented 07/03/2017 7:29 EST syringe, 30 ml intravenous, ASBESTOS REMOVER, Starting on Sun06/29/17 at 1315, Until Sun07/03/17 at 1804, See PRN bolus orders for breakthrough pain. CLICK to see order details, Routine, ASBESTOS REMOVER Dose (mg): 0.5, Lockout Interval (minutes): 10, Maximum Limit (mg/hr): 3 Rate Documented 07/02/2017 19:49 EST New Bag 07/02/2017 16:02 EST HYDROmorphone 1 mg/ml (DILAUDID) ASBESTOS REMOVER syr yann, 30 ml New Bag 07/05/2017 6:50 EST intravenous, ASBESTOS REMOVER, Starting on Sun07/04/17 at 1515, Until Sun07/05/17 at 1704, See PRN bolus orders for breakthrough pain. CLICK to see order details, Routine, ASBESTOS REMOVER Dose (mg): 0.5, Lockout Interval (minutes): 10, Maximum Limit (mg/hr): 3 Rate Documented 07/04/2017 19:00 EST New Bag 07/04/2017 18:29 EST HYDROmorphone injection (DILAUDID) 0.5 mg/1 mL Given 018 4:25 EST 0.5 mg syringe 0.25-0.5 mg 0.25-0.5 mg, intravenous, EVERY 4 HOURS PRN, Starting on Elsa 07/05/17 at 1906, Until Sun07/06/17 at 1315, Pain, Routine Given 07/06/2017 0:40 EST 0.5 mg ibuprofen (MOTRIN) tablet 400 mg Given 06/29/2017 5:07 EST 400 mg 400 mg, oral, EVERY 6 HOURS PRN, Starting on Elsa 06/28/17 at 1219, Until Sun06/29/17 at 1244, Pain, Routine Given 06/28/2017 23:22 EST 400 mg Given 06/28/2017 13:19 EST 400 mg ketAMINE (KETALAR) 500mg in NaCl Rate Change 07/02/2017 9:00 EST 1 0 mg/hr 1 mL/hr 0.9% 50ml syringe 10 mg/hr (1 mL/hr), intravenous, CONTINUOUS, Starting on Sun06/29/17 at 1200, Until Sun07/02/17 at 1608, Routine Rate Documented 07/01/2017 19:00 EST 15 mg/hr 1.5 mL/hr New Bag 07/01/2017 18:28 EST 15 mg/hr 1.5 mL/hr levOFLOXacin (LEVAQUIN) IVPB 750 mg Given 06/28/2017 14:44 EST 750 mg 750 mg, intravenous, Administer over 90 Minutes, DAILY, 7 doses, First dose on Elsa 06/28/17 at 1315, Last dose on Sun07/04/17 at 0900, STAT LORazepam (ATIVAN) injection 0.5-1 mg Given 07/05/2017 20:27 EST 1 mg 0.5-1 mg, intravenous, AT BEDTIME PRN, Starting on 06/30/17 at 2026, Until Sun07/06/17 at 1315, Anxiety, sleep, Routine Given 07/04/2017 22:56 EST 1 mg Given 07/03/2017 19:57 EST 1 mg LORazepam (ATIVAN) injection 1-2 mg Given 06/28/2017 20:11 EST 2 mg 1-2 mg, intravenous, AT BEDTIME, First dose on Sun06/28/17 at 2100, Until Discontinued, Routine magnesium sulfate 2 g in water 50 mL Given 06/29/2017 17:59 EST 2 g 2 g, intravenous, Administer over 30 Minutes, EVERY HOUR, 2 doses, First dose on Sun06/29/17 at 1500, Last dose on Sun06/29/17 at 1600, Routine magnesium sulfate 2 g in water 50 mL Given 07/04/2017 0:29 EST 2 g 2 g, intravenous, Administer over 30 Minutes, NOW X1, 1 dose, On Sun07/04/17 at 0030, STAT magnesium sulfate 2,000 mg in dextrose 5% Given 06/29/2017 14:44 EST 2,000 mg (D5W) 50 mL IVPB (Latex Free) 2,000 mg, intravenous, Administer over 30 Minutes, EVERY HOUR, 2 doses, First dose on Sun06/29/17 at 1500, Last dose on Sun06/29/17 at 1600, Routine melatonin tablet 3 mg Given 06/29/2017 0:47 EST 3 mg 3 mg, oral, AT BEDTIME, First dose on Sun06/29/17 at 0045, Until Discontinued, Routine metronidazole (FLAGYL) infusion 500 mg Given 06/28/2017 16:57 EST 500 mg 500 mg, intravenous, Administer over 30 Minutes, EVERY 8 HOURS, 21 doses, First dose on Sun06/28/17 at 1600, Last dose on Sun07/05/17 at 0800, Routine ondansetron (PF) (ZOFRAN) 4 mg/2 mL inje ction 1 dose, Starting on Sun07/06/17 at 0421, Until Sun at 0425 ondansetron (PF) (ZOFRAN) injection 4 mg Given 07/03/2017 22:59 EST 4 mg 4 mg, intravenous, NOW X1, 1 dose, On Sun07/03/17 at 2230, Routine ondansetron (PF) (ZOFRAN) injection 4 mg Given 07/04/2017 0:25 EST 4 mg 4 mg, intravenous, NOW X1, 1 dose, On Sun07/04/17 at 0030, Routine ondansetron (PF) (ZOFRAN) injection 4 mg Given 07/04/2017 7:45 EST 4 mg 4 mg, intravenous, NOW X1, 1 dose, On Sun07/04/17 at 0730, Routine ondansetron (PF) (ZOFRAN) injection 4 mg Given 07/06/2017 4:25 EST 4 mg 4 mg, intravenous, NOW X1, 1 dose, On Sun07/06/17 at 0445, Routine pantoprazole (PROTONIX) injection 40 mg Given 06/30/2017 10:12 EST 40 mg 40 mg, intravenous, DAILY, First dose on Sun06/29/17 at 1300, Until Discontinued, Routine Given 06/29/2017 14:52 EST 40 mg phenol (PHENASEPTIC,CHLORASEPTIC) 1.4 % Given 06/30/2017 6:19 ES T solution/spray topical, PRN, Starting on 06/30/17 at 0534, Until Sun07/01/17 at 0709, Pain polyethylene glycol 3350 (MIRALAX) packe t 17 g Given 07/05/2017 9:53 EST 17 g 17 g, oral, DAILY, First dose on Sun07/04/17 at 0900, Until Discontinued, Routine Given 07/04/2017 8:45 EST 17 g rifAMPin (RIFADIN) capsule 300 mg Given 07/04/2017 8:00 EST 300 mg 300 mg, oral, 2 TIMES DAILY, 14 doses, First dose on Sun07/02/17 at 2100, Last dose on Sun07/09/17 at 0900, Routine Given 07/03/2017 21:31 EST 300 mg Given 07/03/2017 8:24 EST 300 mg senna (SENOKOT) tablet 1 Tab Given 07/05/2017 20:32 EST 1 Tablet 1 Tablet, oral, AT BEDTIME, First dose on Sun07/04/17 at 2100, Until Discontinued, Routine Given 07/04/2017 21:18 EST 1 Tablet sodium chloride 0.9 % flush 3 mL Given 07/04/2017 18:00 EST 3 mL 3 mL, intravenous, EVERY 8 HOURS, First dose on Sun07/01/17 at 1100, Until Discontinued, Routine Given 07/04/2017 7:46 EST 3 mL Given 07/04/2017 0:15 EST 3 mL tiZANidine (ZANAFLEX) tablet 4 mg Given 07/06/2017 8:04 EST 4 mg 4 mg, oral, 3 TIMES DAILY, First dose on Sun07/04/17 at 0900, Until Discontinued, Routine Given 07/05/2017 20:27 EST 4 mg Given 07/05/2017 14:38 EST 4 mg vancomycin (VANCOCIN) 1,500 mg in sodium Given 07/04/2017 4:[address] 1,500 mg chloride (NS) 0.9 % 500 mL IVPB 1,500 mg, intravenous, Administer over 90 Minutes, EVERY 12 HOURS, 9 doses, First dose on [place] 07/01/17 at 0400, Last dose on Elsa 07/05/17 at 0400, Routine Given 07/03/2017 16:21 EST 1,500 mg Given 07/03/2017 5:09 EST 1,500 mg vancomycin (VANCOCIN) IVPB 1,000 mg Given 06/30/2017 16:31 EST 1,000 mg 1,000 mg, intravenous, Administer over 60 Minutes, EVERY 12 HOURS, 14 doses, First dose on Elsa 06/28/17 at 1600, Last dose on Elsa 07/05/17 at 0400, Routine Given 06/30/2017 4:46 EST 1,000 mg Given 06/29/2017 16:40 EST 1,000 mg documented in this encounter Discontinued Medications Medication Sig Discontinue Reason Start Date End Date buprenorphine-naloxone Place 6 Tabs under 07/06/2017 (SUBOXONE) 2-0.5 mg the tongue daily. tablet, sublingual documented as of this encounter Historical Medications This list may reflect changes made after this encounter. Medication Sig Dispensed Refills Start Date End Date Multivitamins with Take 1 Tab by mouth 0 03/12/2019 Minerals tablet tablet daily. buprenorphine-naloxone Place 6 Tabs under 0 07/06/2017 (SUBOXONE) 2-0.5 mg the tongue daily. tablet, sublingual added in this encounter Active and Recently Administered Medications Times are shown in EST. Scheduled Medication Order 07/04/2017 07/05/2017 07/06/2017 acetaminophen (TYLENOL) tablet 1,000 mg 0026 (Given - Provider: Cecilia Leach RN)0454 (Given - Provider: Cecilia Leach RN)0511 (Not Given - Provider: Cecilia Leach RN - Reason: Other - Comment: given @ 454, scanned under that time/med)1349 (Given - Provider: Nuvia Baird RN) 0104 (Given - Provider: Cecilia Leach RN)0555 (Given - Provider: Cecilia Leach RN)1222 (Given - Provider: Marsha Mark RN)1805 (Given - Provider: Marsha Mark RN)2308 (Given - Provider: Cecilia Leach RN) 0542 (Given - Provider: Cecilia Leach RN ) 1,000 mg, oral, EVERY 6 HOURS, First dos e on Sun07/01/17 at 0730, Until Discontinued, Routine 1830 (Given - Provider: Nuvia Baird RN) aspirin chewable tablet 81 mg 0800 (Given - Provider: Nuvia Baird RN) 0953 (Given - Provider: Marsha Mark RN) 0804 (Given - Provider: Amisha Delacruz, JARRED ) 81 mg, oral, DAILY, First dose on 08/15 at 0900, Until Discontinued, Routine DAPTOmycin (CUBICIN) 495 mg in sodium chloride (NS) 0. 9 % 50 mL IVPB 1829 (Given - Provider: Nuvia Baird RN) 1645 (Given - Provider: Marsha Mark RN) 495 mg (rounded from 493.6 mg = 8 mg/kg ? 61.7 kg), intravenous, Administer over 30 Minutes, EVERY 24 HOURS, 7 doses, First dose on Sun07/04/17 at 1715, Last dose on Sun07/10/17 at 1715, Controlled anti biotic, has ID approved? Yes, It is doretha mmended to discontinue statins for the duration of daptomycin therapy due to increased risk of rhabdomyolysis. If the patient is on a statin (atorvastatin, simvas tatin, rosuvastatin, etc.) - has it been discontinued? N/A, patient not previously on statin, STAT enoxaparin (LOVENOX) injection 60 mg 2117 (Given - Provider: Cecilia Leach RN) 0953 (Given - Provider: Marsha Mark, JARRED)2027 (Given - Provider: Cecilia Leach RN) 1034 (Not Given - Provider: Amisha Delacruz RN - Reason: Other) 60 mg (rounded from 61.7 mg = 1 mg/kg ? 61.7 kg), subcutaneous, EVERY 12 HOURS, First dose on Sun07/04/17 at 2100, Until Discontinued, Routine HYDROmorphone (DILAUDID) tablet 6 mg (COMPLETED) 180 (Given - Provider: Marsha Mark RN) 6 mg, oral, NOW X1, 1 dose, Elsa 07/05/17 at 1730, Routine magnesium sulfate 2 g in water 50 mL (COMPLETED) 0029 (Given - Provider: Cecilia Leach RN) 2 g, intravenous, Administer over 30 Min utes, NOW X1, 1 dose, 07/04/17 at 0030, STAT ondansetron (PF) (ZOFRAN) injection 4 mg (COMPLETED) 0 025 (Given - Provider: Cecilia Leach RN) 4 mg, intravenous, NOW X1, 1 dose, 07/04/17 at 0030, Routine ondansetron (PF) (ZOFRAN) injection 4 mg (COMPLETED) 0 745 (Given - Provider: Nuvia Baird RN) 4 mg, intravenous, NOW X1, 1 dose, Sun07/04/17 at 0730, Routine ondansetron (PF) (ZOFRAN) injection 4 mg (COMPLETED) 0425 (Given - Provider: Cecilia Leach RN) 4 mg, intravenous, NOW X1, 1 dose, 07/06/17 at 0445, Routine polyethylene glycol 3350 (MIRALAX) packet 17 g 0845 (G iven - Provider: Nuvia Baird RN) 0953 (Given - Provider: Marsha Mark RN) 1024 (Not Giv en - Provider: Amisha Delacruz RN - Reason: Other) 17 g, oral, DAILY, First dose on 07/04 at 0900, Until Discontinued, Routine rifAMPin (RIFADIN) capsule 300 mg (CANCELED) 0800 (Giv en - Provider: Nuvia Baird RN) 300 mg, oral, 2 TIMES DAILY, 14 doses, F irst dose on 07/02/17 at 2100, Last dose on Sun07/09/17 at 0900, Routine senna (SENOKOT) tablet 1 Tab 2117 (Given - Provider: Cecilia tran, JARRED) 2031 (Given - Provider: Cecilia Leach RN) 1 Tab, oral, AT BEDTIME, First dose on W ed 07/04/17 at 2100, Until Discontinued, Routine sodium chloride 0.9 % flush 3 mL(Linked Group 1) 0015 (Given - Provider: Cecilia Leach RN)0746 (Given - Provider: Nuvia Baird RN)1800 (Given - Provider: Nuvia Baird RN)2315 (Not Given - Provider: Cecilia Leach RN - Reason: Other - Comment: picc with fluids infusing) 0954 (Not Given - Provider: Marsha Mark RN - Reason: Other - Comment: continuous infusion)1641 (Not Given - Provider: Marsha Mark RN - Reason: Other - Comment: continuous infusion)2301 (Not Given - Provider: Cecilia Leach RN - Reason: Other) 0819 (Not Given - Provider: Amisha Delacruz RN - Reason: Other) 3 mL, intravenous, EVERY 8 HOURS, First dose on Sun07/01/17 at 1100, Until Discontinued, Routine tiZANidine (ZANAFLEX) tablet 4 mg 0845 (Given - Provid er: Nuvia Baird RN)1349 (Given - Provider: Nuvia Baird RN)2118 (Given - Provider: Cecilia Leach RN) 0953 (Given - Provider: Marsha Mark RN) 1438 (Given - Provider: Marsha Mark RN)2027 (Given - Provider: Cecilia Leach RN) 0804 (Given - Provider: Amisha Delacruz RN) 4 mg, oral, 3 TIMES DAILY, First dose on Sun07/04/17 at 0900, Until Discontinued, Routine vancomycin (VANCOCIN) 1,500 mg in sodium chloride (NS) 0.9 % 500 mL IVPB (CANCELED) 0454 (Given - Provider: Cecilia Leach RN )1906 (Not Given - Provider: Nuvia Baird RN - Reason: Discontinued) 1,500 mg, intravenous, Administer over 9 0 Minutes, EVERY 12 HOURS, 9 doses, First dose on Sun07/01/17 at 0400, Last dose on Sun07/05/17 at 0400, Routine Continuous Medication Order 07/04/2017 07/05/2017 07/06/2017 electrolyte-A (PLASMALYTE-A) solution (CANCELED) 0449 (New Bag - Provider: Cecilia Leach RN)0500 (Rate Documented - Provider: Cecilia Leach RN)0600 (Rate Documented - Provider: Cecilia Leach RN) at 100 mL/hr, intravenous, CONTINUOUS, S tarting Sun07/04/17 at 0300, Until Sun07/04/17 at 1652, Routine HYDROmorphone 1 mg/ml (DILAUDID) ASBESTOS REMOVER syringe, 30 ml (C ANCELED) 1829 (New Bag - Provider: Nuvia Baird RN)1900 (Rate Documented - Provider: Cecilia Leach RN - Comment: Verified with JARRED Dave during bedside shift change/report.) 0650 (New Bag - Provider: Cecilia Leach RN) intravenous, ASBESTOS REMOVER, Starting 07/04/17 at 1515, Until Elsa 07/05/17 at 1704, See PRN bolus orders for breakthrough pain. CLICK to see order details, Routine, ASBESTOS REMOVER Dose (mg): 0.5, Lockout Interval (minutes): 10, Maximum Limit (mg/hr): 3 PRN Medication Order 07/04/2017 07/05/2017 07/06/2017 alteplase (CATHFLO ACTIVASE) injection 2 mg 2 mg, intercatheter, PRN, Starting Mon at 0955, Until Sun07/06/17 at 1315, Line Care, Routine bisacodyl (DULCOLAX) suppository 10 mg 10 mg, rectal, DAILY PRN, Starting Sun at 2013, Until Sun07/06/17 at 1315, Constipation, Routine diphenhydrAMINE (BENADRYL) capsule 25 mg 25 mg, oral, EVERY 6 HOURS PRN, Starting 07/01/17 at 1612, Until Sun07/06/17 at 1315, Itching, Routine docusate sodium (COLACE) capsule 100 mg 0845 (Given - Provider: Nuvia Baird, JARRED)2117 (Given - Provider: Cecilia Leach, JARRED) 2026 (Given - Provider: Cecilia Leach, JARRED) 100 mg, oral, 2 TIMES DAILY PRN, Startin g 07/01/17 at 2013, Until Sun07/06/17 at 1315, Constipation, Routine hydrocortisone 1 % cream topical, 3 TIMES DAILY PRN, Starting 07/01/17 at 1611, Until Sun07/06/17 at 1315, Itching, Rash HYDROmorphone (DILAUDID) tablet 2-6 mg (CANCELED) 0228 (Given - Provider: Cecilia Leach RN)0609 (Given - Provider: Cecilia Leach RN) 2-6 mg, oral, EVERY 3 HOURS PRN, Startin g Tu07/03/17 at 2115, Until Sun07/04/17 at 0817, Pain, Routine HYDROmorphone (DILAUDID) tablet 2-8 mg 2 309 (Given - Provider: Cecilia Leach RN) 0307 (Given - Provider: Cecilia Leach RN )0804 (Given - Provider: Amisha Delacruz RN) 2-8 mg, oral, EVERY 4 HOURS PRN, Startin g Elsa 07/05/17 at 1904, Until Sun07/06/17 at 1315, Pain, For 3-6/10 pain give 2 mg ; for 7-8/10 for 6 mg; for 8-10 pain give 8 mg, Routine HYDROmorphone (DILAUDID) tablet 6-8 mg (CANCELED) 0919 (Given - Provider: Nuvia Baird RN)1349 (Given - Provider: Nuvia Baird RN) 6-8 mg, oral, EVERY 3 HOURS PRN, Startin g Sun07/04/17 at 0817, Until Sun07/04/17 at 1450, Pain, Routine HYDROmorphone injection (DILAUDID) 0.5 mg/1 mL syringe 0.25-0.5 mg 0040 (Given - Provider: Cecilia Leach RN)0425 (Given - Provider: Cecilia Leach RN) 0.25-0.5 mg, intravenous, EVERY 4 HOURS PRN, Starting Elsa 07/05/17 at 1906, Until Sun07/06/17 at 1315, Pain, Routine LORazepam (ATIVAN) injection 0.5-1 mg 225 (Given - Provider : Cecilia Leach RN) 2026 (Given - Provider: Cecilia Leach RN) 0.5-1 mg, intravenous, AT BEDTIME PRN, S tarting 06/30/17 at 2025, Until Sun07/06/17 at 1315, Anxiety, sleep, Routine Linked Groups Order Group 1: Change IV to Saline Lock (CANCELED) Routine, ONE TIME, 07/01/17 at 1040, F or 1 occurrence And sodium chloride 0.9 % flush 3 mLJump to med 3 mL, intravenous, EVERY 8 HOURS, First dose on 07/01/17 at 1100, Until Discontinued, Routine documented in this encounter Orders Medications Ordered That Might Not Have Count Last Ord ered Date First Ordered Date Been Administered HYDROmorphone (DILAUDID) tablet 2-8 mg 1 8 HYDROmorphone injection (DILAUDID) 0.5 1 8 mg/1 mL syringe 0.2 mg HYDROmorphone injection (DILAUDID) 0.5 2 8 mg/1 mL syringe 0.2-0.4 mg alteplase (CATHFLO ACTIVASE) injection 2 1 018 mg bisacodyl (DULCOLAX) suppository 10 mg 1 8 Benzocaine 20 % aerosol spray 1 06/30/2017 benzocaine-menthol (CEPACOL) 15-3.6 mg per 1 06/30 lozenge 1 Lozenge enoxaparin (LOVENOX) injection 40 mg 1 06/30/2017 heparin in 05/01 NS 25,000 unit/250 mL 1 06/30/2017 infusion HYDROmorphone 1 mg/ml (DILAUDID) ASBESTOS REMOVER 1 06/29/2017 syringe, 30 ml melatonin tablet 3 mg 1 06/29/2017 pantoprazole (PROTONIX) tablet 40 mg 1 06/29/2017 buprenorphine-naloxone (SUBOXONE) 2-0.5 mg 1 06/28 SUBLINGUAL TABLET 6 Tab clindamycin (CLEOCIN) IVPB 600 mg 1 06/28/2017 docusate sodium (COLACE) capsule 100 mg 1 06/29/19 18 Multivitamins with Minerals tablet 1 Tab 1 018 polyethylene glycol 3350 (MIRALAX) packet 1 2017 17 g senna (SENOKOT) tablet 1 Tab 1 06/28/2017 Lab Orders Without Results Count Last Ordered Date Fir st Ordered Date HEPARIN LEVEL - UNFRACTIONATED HEPARIN 1 8 Procedures Count Last Ordered Date First Ordered Date ECG REPORT - SCANNED 4 07/11/2017 07/02/2017 IMPLANT RECORD - SCANNED 2 07/11/2017 018 Nursing Count Last Ordered Date First Ordered Date REMOVE ARTERIAL LINE 1 06/30/2017 TRAIN CREW MEMBER,CLASS III 2 06/30/2017 03/0 05/2017 CONTRAINDICATION TO ANTICOAGULATION 1 06/29/2017 THERAPY INSERT DAWN CATHETER 1 06/29/2017 NASOGASTRIC TUBE MAINTENANCE 1 06/29/2017 PATIENT NOT A CANDIDATE FOR MECHANICAL VTE 1 06/28 PROPHYLAXIS VTE PHARMACOLOGIC PROPHYLAXIS CURRENTLY 1 06/29/19 18 ORDERED OR ON ALTERNATIVE THER Consult Count Last Ordered Date First Ordered Date CONSULT INFECTIOUS DISEASES 1 06/28/2017 IV Count Last Ordered Date First Ordered Date IV REQUEST 2 07/06/2017 07/03/2017 Admission Count Last Ordered Date First Ordered Date STATUS: INPATIENT ACUTE ADMISSION 1 06/28/2017 Transfer Count Last Ordered Date First Ordered Date PPS NOTIFICATION OF PATIENT ARRIVAL ON 2 8 06/28/2017 UNIT PPS NOTIFICATION OF SENDING PATIENT OFF 2 07/01/19 18 06/29/2017 THE UNIT TRANSFER PATIENT 2 06/30/2017 06/28/2017 UR PATIENT STATUS CHANGE 1 06/28/2017 Discharge Count Last Ordered Date First Ordered Date DISCHARGE PATIENT 1 07/06/2017 documented in this encounter
--- OUTSIDE RECORDS SUMMARY | 2022-02-03 16:05 | XMS_ITS | Encounter Summary ---
:1980 Author Organization [facility] Address [address] [place] [address] Care Team Providers Name Role Phone Unknown, Provider Primary Care Provider Encounter Details Date Type Department Care Team Description 07/08/2016 Historical Results [facility] - [place], Only [facility] Lab - [place] us Neda MD [address] [phone] Social History Tobacco Use Types Packs/Day [...] Associated Comments Diagnosis COMPLETE BLOOD COUNT Routine 07/08/2016 6:00 Resu lts for this WITH DIFFERENTIAL EST procedure are in (AUTO) the results section. BASIC METABOLIC PANEL Routine 07/08/2016 6:00 Res ults for this (BMP) EST procedure are i n the results section. documented in this encounter Results (ABNORMAL) BASIC METABOLIC PANEL (BMP) (07/08/2016 6:00 EST) BUN - [facility] 21 (H) 7 - 18 mg/dL [facility] CALCIUM - [facility] 9.0 8.5 - 10.1 [facility] mg/dL [facility] LAB Chloride 98 98 - 107 mEq/L [facility] LAB CO2 Total 32 21 - 32 mEq/L [facility] LAB CREATININE 0.78 0.5 - 1.3 [facility] mg/dL [facility] LAB eGFR >60 [facility] Comment: [facility] LAB Chronic renal impairment is defined as GFR <60 Multiply result by 1.210 for patients . eGFR calculated using the IDMS-traceable MDRD Study Equation. ??(effective 03/02/2014) Anion Gap 7 5 - 15 [facility] GLUCOSE - [facility] 84 70 - 100 mg/dL [facility] LAB Potassium 4.3 3.5 - 5.0 [facility] mEq/L [facility] Sodium 137 135 - 145 [facility] mEq/L [facility] LAB Specimen Performing Organization Address City/State/ZIP Code Phon e Number [facility] [address] LAB (ABNORMAL) COMPLETE BLOOD COUNT WITH DIFFERENTIAL (AUTO) (07/08/2016 6:00 EST) Pathologist Sig nature ABSOLUTE NEUTROPHIL 1.41 (L) 1.7 - 7.0 [facility] COUN - [facility] 10e3/ul [place] [facility] BASO # - [facility] 0.05 0.0 - 0.3 [facility] 10e3/uL [place] [facility] BASO % - [facility] 1 0 - 2 % [facility] EOS # - [facility] 0.19 0.05 - 0.5 [facility] 10e3/uL [place] [facility] EOS % - [facility] 5 0 - 5 % [facility] GRAN % - [facility] 40 40 - 80 % [facility] HEMATOCRIT - [facility] 29.0 (L) 34.0 - 47.0 % [facility] HEMOGLOBIN - [facility] 9.0 (L) 11.2 - 15.7 [facility] g/dl [place] [facility] IG# - [facility] 0.03 0 - 0.07 [facility] 10e3/uL [place] [facility] IG% - [facility] 0.8 0 - 0.9 % [facility] LYMPH # - [facility] 1.36 0.9 - 2.9 [facility] 10e3/uL [place] [facility] LYMPH% - [facility] 38 20 - 40 % [facility] MEAN CORPUSCULAR HGB 26.3 26 - 34 pg [facility] CENTER LAB MEAN CORPUSCULAR HGB 31.0 31 - 36 g/dL [facility] CONC [facility] CENTER LAB MEAN CELL VOLUME - 84.8 77 - 100 fl [facility] MONO # - [facility] 0.51 0.3 - 0.9 [facility] 10e3/uL [place] [facility] MONO% - [facility] 14 (H) 0 - 12 % [facility] LAB PLATELET COUNT 406 (H) 150 - 400 [facility] 10e3/ul [place] [facility] RED BLOOD COUNT - 3.42 (L) 3.8 - 5.2 [facility] 10e6/ul [place] LAB RED CELL DISTRI WIDTH 17.1 (H) 11.8 - 15.6 % [facility] D [facility] LAB WHITE BLOOD COUNT - 3.6 3.5 - 10.5 [facility] 10e3/ul [place] LAB Specimen Performing Organization Address City/State/ZIP Code Phon e Number [facility] [address] [place], [place] [address] [place] [address] LAB documented in this encounter Visit Diagnoses Not on filedocumented in this encounter Care Teams Wellness Specialist Relationship Specialty Start Date End Date Unknown, Provider, PCP - General 02/26/14 06/26/17 documented as of this encounter
--- OUTSIDE RECORDS SUMMARY | 2022-02-03 16:05 | XMS_ITS | Encounter Summary ---
:1980 Author Organization [facility] Address [address] [place] [address] Care Team Providers Name Role Phone Unknown, Provider Primary Care Provider Encounter Details Date Type Department Care Team Description 07/03/2016 Historical Results [facility] - [place], Only [facility] Radiology Resul ts [address] [phone] Social History Tobacco Use Types Packs/Day [...] Name Priority Date/Time Associated Comments Diagnosis MR FOOT W WO CONTRAST 07/03/2016 21:19 Re sults for this RIGHT EST procedure are i n the results section. COMPLETE BLOOD COUNT Routine 07/03/2016 6:20 Resu lts for this WITH DIFFERENTIAL EST procedure are in (AUTO) the results section. BASIC METABOLIC PANEL Routine 07/03/2016 6:20 Res ults for this (BMP) EST procedure are i n the results section. documented in this encounter Results MR FOOT W WO CONTRAST RIGHT (07/03/2016 21:19 EST) Specimen Narrative [facility] RADIOLOGY - 07/03/2016 21:19 EST ? EXAM: MAGNETIC RESONANCE IMAGING/FOOT RT ??EX. D/ (2037) ? CLINICAL INFORMATION: ? persistent cellullitis post surg debridement, IVDU, bacteremia ? EXAM: ? MR Right Lower Extremity Witho ut and With Intravenous ? Contrast, Foot. ? CLINICAL HISTORY: ? 35 years old, female; Conditio n or disease; Other: ? Osteomyelitis; Prior surgery; Mayuri tien date: Post-operative (0-2 ? days); Surgery type: Debridement; Additional info: Persistent ? cellullitis post surg debridement , ivdu, bacteremia ? TECHNIQUE: ? Multiplanar magnetic resonance images of the right foot ? without and with intravenous cont rast. ? CONTRAST: ? 10 mL of GADOLINIUM administer ed intravenously. ? COMPARISON: ? MR - FOOT RT WO/W CONTRAST 06/01 2:30:22 PM ? FINDINGS: ? There is a soft tissue defect in the along the dorsum of the ? second metatarsal. ??Diffuse imag ing is edema surrounds foot. ??A ? focal collection along the planta r mid forefoot and 2.2 x 2.8 x ? 1.7 cm. ??There is very mild T2 h yperintensity in the diaphyses ? of the second and fourth metatars als. ??The first, second, third ? and fourth metatarsals are mildly enhancing bony injection of ? intravenous gadolinium. ? IMPRESSION: ? Diffuse cellulitis with findin gs worrisome for 2.2 x 2.7 x 1.7 ? cm abscess along the plantar soft tissues superficial to the ? second, third and fourth metacarp al apices. ? Increased marrow signal in the first or fourth fourth ? metatarsal diaphysis concerning f or osteomyelitis. ? REPORT SIGNED IN OTHER VENDOR SYSTEM 07/03/2016 ?Reported B y: Faye Og MD ? CC: ? Transcribed Date/Time: 07/03/2016 (2118) ? [employer]: [email or web address] ? Printed Date/Time: 10/12/2018 (04 21) ? PAGE 1 ? Haylee d Report ? Procedure Note Faye Og MD - 03/05/2019 EXAM: MAGNETIC RESONANCE IMAGING/FOOT R T EX. D/ (2037) CLINICAL INFORMATION: persistent cellullitis post surg debrid ement, IVDU, bacteremia EXAM: MR Right Lower Extremity Without and Wi th Intravenous Contrast, Foot. CLINICAL HISTORY: 35 years old, female; Condition or dise ase; Other: Osteomyelitis; Prior surgery; Surgery d ate: Post-operative (0-2 days); Surgery type: Debridement; Addit ional info: Persistent cellullitis post surg debridement, ivdu , bacteremia TECHNIQUE: Multiplanar magnetic resonance images o f the right foot without and with intravenous contrast. CONTRAST: 10 mL of GADOLINIUM administered intrav enously. COMPARISON: MR - FOOT RT WO/W CONTRAST 06/26/2016 2: 30:22 PM FINDINGS: There is a soft tissue defect in the al stefany the dorsum of the second metatarsal. Diffuse imaging is e sydnie surrounds foot. A focal collection along the plantar mid forefoot and 2.2 x 2.8 x 1.7 cm. There is very mild T2 hyperinte nsity in the diaphyses of the second and fourth metatarsals. T he first, second, third and fourth metatarsals are mildly enhan cing bony injection of intravenous gadolinium. IMPRESSION: Diffuse cellulitis with findings worris ome for 2.2 x 2.7 x 1.7 cm abscess along the plantar soft tissu es superficial to the second, third and fourth metacarpal api jac. Increased marrow signal in the first or fourth fourth metatarsal diaphysis concerning for ost eomyelitis. REPORT SIGNED IN OTHER VENDOR SYSTEM 07/03/2016 Reported By: Faye Og MD CC: Transcribed Date/Time: 07/03/2016 (3565 ) [employer]: Printed Date/Time: 10/12/2018 (0666) PAGE 1 Signed Report Performing Organization Address [facility]/ZIP [facility] Phon e Number [facility] RADIOLOGY (ABNORMAL) BASIC METABOLIC PANEL (BMP) (07/03/2016 6:20 EST) BUN [facility] 28 (H) 7 - 18 mg/dL [facility] LAB CALCIUM - [facility] 8.8 8.5 - 10.1 [facility] mg/dL [facility] LAB Chloride 97 (L) 98 - 107 mEq/L [facility] CO2 Total 31 21 - 32 mEq/L [facility] LAB CREATININE 0.81 0.5 - 1.3 [facility] mg/dL [facility] LAB eGFR >60 [facility] Comment: [facility] LAB Chronic renal impairment is defined as GFR <60 Multiply result by 1.210 for patients . eGFR calculated using the IDMS-traceable MDRD Study Equation. ??(effective 03/02/2014) Anion Gap 8 5 - 15 [facility] GLUCOSE [facility] 85 70 - 100 mg/dL [facility] LAB Potassium 4.5 3.5 - 5.0 [facility] mEq/L [facility] LAB Sodium 136 135 - 145 [facility] mEq/L [facility] LAB Specimen Performing Organization Address City/State/ZIP Code Phon e Number [facility] [address] [place], [place] [id number] [place] [address] LAB (ABNORMAL) COMPLETE BLOOD COUNT WITH DIFFERENTIAL (AUTO) (07/03/2016 6:20 EST) Pathologist Sig nature ABSOLUTE NEUTROPHIL 3.40 1.7 - 7.0 [facility] COUN [facility] 10e3/ul CENTER LAB BASO # - [facility] 0.06 0.0 - 0.3 [facility] 10e3/uL [facility] BASO % - [facility] 1 0 - 2 % [facility] EOS # - [facility] 0.26 0.05 - 0.5 [facility] 10e3/uL [place] [facility] EOS % - [facility] 5 0 - 5 % [facility] GRAN % - [facility] 60 40 - 80 % [facility] LAB HEMATOCRIT - [facility] 31.9 (L) 34.0 - 47.0 % [facility] LAB HEMOGLOBIN - [facility] 9.7 (L) 11.2 - 15.7 [facility] g/dl [place] [facility] IG# - [facility] 0.06 0 - 0.07 [facility] 10e3/uL [place] [facility] IG% - [facility] 1.1 (H) 0 - 0.9 % [facility] LAB LYMPH # - [facility] 1.31 0.9 - 2.9 [facility] 10e3/[facility] LAB LYMPH% - [facility] 23 20 - 40 % [facility] LAB MEAN CORPUSCULAR HGB 25.7 (L) 26 - 34 pg [facility] MEAN CORPUSCULAR HGB 30.4 (L) 31 - 36 g/dL [facility] CONC - [facility]ENTER LAB MEAN CELL VOLUME - 84.6 77 - 100 fl [facility] LAB MONO # - [facility] 0.59 0.3 - 0.9 [facility] 10e3/uL [place] [facility] MONO% - [facility] 10 0 - 12 % [facility] LAB PLATELET COUNT 472 (H) 150 - 400 [facility] 10e3/ul [place] [facility] RED BLOOD COUNT - 3.77 (L) 3.8 - 5.2 [facility] 10e6/ul [place] LAB RED CELL DISTRI WIDTH 17.5 (H) 11.8 - 15.6 % [facility] ME D - [facility] WHITE BLOOD COUNT - 5.7 3.5 - 10.5 [facility] 10e3/ul [place] [facility] Specimen Performing Organization Address City/State/ZIP Code Phon e Number [facility] [address] [place] [phone] [place] [address] LAB documented in this encounter Visit Diagnoses Not on filedocumented in this encounter Care Teams Informatics Scientist Relationship Specialty Start Date End Date Unknown, Provider, PCP - General 02/26/14 06/26/17 documented as of this encounter
--- OUTSIDE RECORDS SUMMARY | 2022-02-03 16:05 | XMS_ITS | Encounter Summary ---
:[address] [facility] Address [address] [place] [address] Care Team Providers Name Role Phone Unknown, Provider Primary Care Provider Encounter Details Date Type Department Care Team Description 07/13/2016 Historical Results [facility] - [place], Only [facility] Lab - [place] us Neda MD [address] [phone] Social History Tobacco Use Types Packs/Day [...] Associated Comments Diagnosis COMPLETE BLOOD COUNT Routine 07/13/2016 6:00 Resu lts for this WITH DIFFERENTIAL EDT procedure are in (AUTO) the results section. C REACTIVE PROTEIN Routine 07/13/2016 6:00 Result s for this EDT procedure are i n the results section. IRON Routine 07/13/2016 6:00 Results for this EDT procedure are i n the results section. HEPATIC FUNCTION Routine 07/13/2016 6:00 Results for this PANEL (ALB,ALK EDT procedure are in PHOS,ALT,AST,DBIL,TOT the re sults ROULA,TOT PROT) section. BASIC METABOLIC PANEL Routine 07/13/2016 6:00 Res ults for this (BMP) EDT procedure are i n the results section. documented in this encounter Results (ABNORMAL) HEPATIC FUNCTION PANEL (ALB,ALK PHOS,ALT,AST,DBIL,TOT ROULA,TOT PROT) (07/13/2016 6:00 EDT) Pathologist [facility] ALBUMIN - [facility] 2.7 (L) 3.4 - 5.0 g/dL [facility] LAB ALKALINE PHOSPHATASE - 90 41 - 126 U/L [facility] ME D [facility] CENTER LAB BILIRUBIN TOTAL 0.1 0.0 - 1.0 mg/dL [facility] LAB TOTAL PROTEIN - [facility] 7.7 6.4 - 8.2 gm/dl [facility] LAB SGOT/AST - [facility] 15 10 - 37 U/L [facility] LAB SGPT/ALT - [facility] 9 (L) 12 - 78 U/L [facility] LAB BILIRUBIN DIRECT - <0.1 0.0 - 0.2 mg/dL [facility] LAB Specimen Performing Organization Address City/[facility] Phon e Number [facility] [address] LAB IRON (07/13/2016 6:00 EDT) Pathologist [facility] SERUM IRON [facility] 72 35 - 150 ug/dL [facility] LAB Specimen Performing Organization Address City/[facility] Phon e Number [facility] [address] LAB (ABNORMAL) C REACTIVE PROTEIN (07/13/2016 6:00 EDT) [facility] C-Reactive Protein 5.82 (H) 0.0 - 3.0 [facility] Comment: mg/L [facility] LAB 07/13/16 0916: ??Amended Report ??CRP previously reported as: < 29.0 ??H mg/L ??Reason: DILUTION TOO HIGH, WILL RERUN TO GET EXACT RESULT Specimen Performing Organization Address City/[facility]/ZIP [facility] Phon e Number [facility] [address] LAB (ABNORMAL) BASIC METABOLIC PANEL (BMP) (07/13/2016 6:00 EDT) Pathologist [facility] BUN [facility] 28 (H) 7 - 18 mg/dL [facility] LAB CALCIUM - [facility] 8.7 8.5 - 10.1 [facility] mg/dL [facility] LAB Chloride 99 98 - 107 mEq/L [facility] LAB CO2 Total 32 21 - 32 mEq/L [facility] LAB CREATININE 0.76 0.5 - 1.3 [facility] mg/dL [facility] LAB eGFR >60 [facility] Comment: [facility] CENTER LAB Chronic renal impairment is defined as GFR <60 Multiply result by 1.210 for patients . eGFR calculated using the IDMS-traceable MDRD Study Equation. ??(effective 03/02/2014) Anion Gap 7 5 - 15 [facility] GLUCOSE - [facility] 82 70 - 100 mg/dL [facility] LAB Potassium 4.1 3.5 - 5.0 [facility] mEq/L [facility] LAB Sodium 138 135 - 145 [facility] mEq/L [facility] LAB Specimen Performing Organization Address City/State/ZIP Code Phon e Number [facility] [address] LAB (ABNORMAL) COMPLETE BLOOD COUNT WITH DIFFERENTIAL (AUTO) (07/13/2016 6:00 EDT) Pathologist Sig nature ABSOLUTE NEUTROPHIL 1.03 (L) 1.7 - 7.0 [facility] COUN - [facility] 10e3/ul CENTER LAB BASO # - [facility] 0.05 0.0 - 0.3 [facility] 10e3/uL [place] [facility] BASO % - [facility] 2 0 - 2 % [facility] LAB EOS # - [facility] 0.16 0.05 - 0.5 [facility] 10e3/uL [place] [facility] EOS % - [facility] 6 (H) 0 - 5 % [facility] GRAN % - [facility] 36 (L) 40 - 80 % [facility] LAB HEMATOCRIT - [facility] 28.6 (L) 34.0 - 47.0 % [facility] HEMOGLOBIN - [facility] 8.9 (L) 11.2 - 15.7 [facility] g/dl [place] [facility] IG# - [facility] 0.01 0 - 0.07 [facility] 10e3/uL CENTER LAB IG% - [facility] 0.3 0 - 0.9 % [facility] LAB LYMPH # - [facility] 1.13 0.9 - 2.9 [facility] 10e3/uL [place] [facility] LYMPH% - [facility] 40 20 - 40 % [facility] LAB MEAN CORPUSCULAR HGB 26.3 26 - 34 pg [facility] MED [facility] LAB MEAN CORPUSCULAR HGB 31.1 31 - 36 g/dL [facility] CONC - [facility] CENTER LAB MEAN CELL VOLUME - 84.6 77 - 100 fl [facility] LAB MONO # - [facility] 0.48 0.3 - 0.9 [facility] 10e3/uL [place] [facility] MONO% - [facility] 17 (H) 0 - 12 % [facility] LAB PLATELET COUNT 224 150 - 400 [place] [id number] [place] LAB RED BLOOD COUNT - 3.38 (L) 3.8 - 5.2 [facility] 10e6/ul [place] LAB RED CELL DISTRI WIDTH 16.7 (H) 11.8 - 15.6 % [facility] ME D - [facility] LAB WHITE BLOOD COUNT - 2.9 (L) 3.5 - 10.5 [facility] 10e3/ul [place] LAB Specimen Performing Organization Address City/State/ZIP Code Phon e Number [facility] [address] [place], [place] [id number] [place] [address] LAB documented in this encounter Visit Diagnoses Not on filedocumented in this encounter Care Teams Photography Professor Relationship Specialty Start Date End Date Unknown, Provider, PCP - General 02/26/14 06/26/17 documented as of this encounter
--- OUTSIDE RECORDS SUMMARY | 2022-02-03 16:05 | XMS_ITS | Encounter Summary ---
:1980 Author Organization [facility] Address [address] [place] [address] Care Team Providers Name Role Phone Unknown, Provider Primary Care Provider Encounter Details Date Type Department Care Team Description 06/29/2016 Historical Results [facility] - Alo Conway MD Only [facility] - [place] [address] [facility] [address] [place], [place] [id number] Social History Tobacco Use Types Packs/Day [...] Associated Comments Diagnosis COMPLETE BLOOD COUNT Routine 06/29/2016 6:03 Resu lts for this AND DIFFERENTIAL EST procedure a re in the results section. BASIC METABOLIC PANEL Routine 06/29/2016 6:03 Res ults for this (BMP) EST procedure are i n the results section. documented in this encounter Results (ABNORMAL) BASIC METABOLIC PANEL (BMP) (06/29/2016 6:03 EST) BUN - [facility] 17 7 - 18 mg/dL [facility] CALCIUM - [facility] 8.1 (L) 8.5 - 10.1 [facility] mg/dL [facility] Chloride 100 98 - 107 mEq/L [facility] CO2 Total 31 21 - 32 mEq/L [facility] CREATININE 0.83 0.5 - 1.3 [facility] mg/dL [facility] eGFR >60 [facility] Comment: [facility] CENTER LAB Chronic renal impairment is defined as GFR <60 Multiply result by 1.210 for patients . eGFR calculated using the [facility]-traceable MDRD Study Equation. ??(effective 03/02/2014) Anion Gap 8 5 - 15 [facility] GLUCOSE - [facility] 86 70 - 100 mg/dL [facility] Potassium 4.7 3.5 - 5.0 [facility] mEq/L [facility] Sodium 139 135 - 145 [facility] mEq/L [facility] Specimen Performing Organization Address City/State/ZIP Code Phon e Number [facility] [address] [place] [address] [facility] (ABNORMAL) COMPLETE BLOOD COUNT AND DIFFERENTIAL (06/29/2016 6:03 EST) ABSOLUTE NEUTROPHIL 6.72 1.8 - 7.8 [facility] COUN - [facility] 10e3/ul [facility] ANISOCYTOSIS - [facility] 1+ [facility] EOS # - [facility] 0.24 0.05 - 0.5 [facility] 10e3/uL [facility] EOSINOPHILS - [facility] 3 0 - 5 % [facility] HEMATOCRIT - [facility] 22.8 (L) 34.0 - 47.0 % [facility] HEMOGLOBIN - [facility] 7.0 (L) 11.2 - 15.7 [facility] g/dl [facility] HYPOCHROMASIA - [facility] 2+ [facility] LYMPH # - [facility] 0.49 (L) 0.9 - 2.9 [facility] 10e3/uL [facility] LYMPHOCYTES - [facility] 6 (L) 20 - 40 % [facility] MEAN CORPUSCULAR HGB - 24.8 (L) 26 - 34 pg [facility] MEAN CORPUSCULAR HGB 30.7 (L) 31 - 36 g/dL [facility] CONC - [facility] MEAN CELL VOLUME - [facility] 80.9 77 - [address] [facility] METAMYELOCYTE - [facility] 3 (H) 0 - 1 % [facility] MICROCYTES - [facility] 1+ [facility] MONO # - [facility] 0.41 0.3 - 0.9 [facility] 10e3/uL [facility] MONOCYTE - [facility] 5 0 - 12 % [facility] MYELOCYTE - [facility] 1 0 - 3 % [facility] PLATELET COUNT 291 150 - 400 [facility] 10e3/ul [facility] NEUTROPHILS - [facility] 82 (H) 40 - 80 % [facility] RED BLOOD COUNT - [facility] 2.82 (L) 3.8 - 5.2 [facility] 10e6/ul [facility] RED CELL DISTRI WIDTH - 18.8 (H) 11.8 - 15.6 % [facility] WHITE BLOOD COUNT - 8.2 3.5 - 10.5 [place] [id number] Specimen Performing Organization Address City/State/ZIP Code Phon e Number [facility] [address] LAB documented in this encounter Visit Diagnoses Not on filedocumented in this encounter Care Teams Radio Equipment Repairer Relationship Specialty Start Date End Date Unknown, Provider, PCP - General 02/26/14 06/26/17 documented as of this encounter
--- OUTSIDE RECORDS SUMMARY | 2022-02-03 16:05 | XMS_ITS | Encounter Summary ---
:1980 Author Organization [facility] Address [address] [place] [address] Care Team Providers Name Role Phone Unknown, Provider Primary Care Provider Encounter Details Date Type Department Care Team Description 06/25/2017 Historical Results [facility] - Nuvia Serrato, Only [facility] Radiology Resul ts [facility] [address] [place], [place] [id number] [place] [address] [phone] Social History Tobacco Use Types Packs/Day Years [...] Procedure Name Priority Date/Time Associated Comments Diagnosis CT PELVIS W CONTRAST 06/25/2017 23:46 Res ults for this EST procedure are i n the results section. BLOOD CULTURE - [facility] Routine 06/25/2017 23:30 Res ults for this EST procedure are i n the results section. BLOOD CULTURE - [facility] Routine 06/25/2017 22:18 Res ults for this EST procedure are i n the results section. COMPLETE BLOOD COUNT Routine 06/25/2017 22:18 Res ults for this WITH DIFFERENTIAL EST procedure are in (AUTO) the results section. HEPATIC FUNCTION Routine 06/25/2017 21:37 Results for this PANEL (ALB,ALK EST procedure are in PHOS,ALT,AST,DBIL,TOT the re sults ROULA,TOT PROT) section. ROUTINE CULTURE - Routine 06/25/2017 20:57 Result s for this [facility] EST procedure are i n the results section. C REACTIVE PROTEIN Routine 06/25/2017 19:18 Resul ts for this EST procedure are i n the results section. BASIC METABOLIC PANEL Routine 06/25/2017 19:18 Re sults for this (BMP) EST procedure are i n the results section. documented in this encounter Results CT PELVIS W CONTRAST (06/25/2017 23:46 EST) Specimen Narrative [facility] RADIOLOGY - 06/25/2017 23:47 EST ? AN ADDENDUM IS INCLUDED ON THIS REPORT ? ADDENDUM ? The impression should read: Low a ttenuation within the right ? common femoral and external iliac vein this may represent deep ? venous thrombosis, consider septi c thrombosis. ? THIS REPORT CONTAINS FINDINGS ARCHIE T MAY BE CRITICAL TO PATIENT ? CARE. The findings were verbally communicated via telephone ? conference with Dr. De Los Santos at 11: 56 PM EST on 06/25/2017. The ? findings were acknowledged and un derstood. ? ADDEND UM SIGNED IN OTHER VENDOR SYSTEM 06/25/2017 ?Reported B y: Romero Farris MD ?Transcribe d: 06/25/2017 (4477) [facility] ?REPORT ? EXAM: CAT SCAN/PELVIS WITH CONTRA ST ? EX. D/ ([id number]) ? CLINICAL INFORMATION: ? R LEG ABSCESS S/P I D, FURTHER CESS ? EXAM: ? CT Pelvis With Intravenous Con trast ? CLINICAL HISTORY: ? 36 years old, female; Signs an d symptoms; Other: Unknown; ? Prior surgery; Surgery type: Endo metrial surgery; Additional ? info: R leg abscess S/P i d, furt her ascess ? TECHNIQUE: ? Axial computed tomography imag es of the pelvis with ? intravenous contrast. ??All CT sc ans at this facility use one or ? more dose reduction techniques, v iz.: automated exposure ? control; ma/kV adjustment per pat ient size (including targeted ? exams where dose is matched to in dication; i.e. head); or ? iterative reconstruction techniqu e. ? CONTRAST: ? 100 mL of OMNI 350 administere d intravenously. ? COMPARISON: ? CR - PELVIS 2015-11-17 11:45 ? FINDINGS: ? Bowel: ??There is moderate inc reased colonic fecal content. ? The colon is mildly distended. ?? These findings suggest a ? moderate degree of ??constipation . ??Clinical correlation ? recommended. ??No mucosal thicken ing. ? Appendix: ??There is no eviden ce of appendicitis. ? Intraperitoneal space: ??There is no free intraperitoneal air. ? There is no evidence of free intr aperitoneal or pelvic fluid. ? Small amount of free fluid seen w ithin the pelvis. ? Bladder: ??The bladder is norm al. ??The bladder is normal. ? Reproductive: ??The uterus is normal. ? Bones/joints: ??The skeletal s tructures and soft tissues show ? no evidence of fracture or other acute processes. ??No ? PAGE 1 ? Haylee d Report ? (CONTINUED) ? AN ADDENDUM IS INC LUDED ON THIS REPORT ? dislocation. ? Soft tissues: ??There is exten sive soft tissue swelling and ? inflammation seen within the soft tissues of the right thigh. ? There is fluid surrounding the me dial compartment sartorius ? muscle. Myofasciitis is not exclu ded. Consider MRI for further ? evaluation. ??The associated soft tissues are unremarkable. ? Vasculature: ??Low attenuation within the right common and ? external iliac vein may represent deep venous thrombosis. ??No ? lower abdominal aortic aneurysm. ? Lymph nodes: ??Extensive right inguinal adenopathy present. ? There is no evidence of lymphaden opathy. ? Other findings: ??There is no evidence of intestinal ? obstruction. ? IMPRESSION: ? 1. ??Low attenuation within the r ight common and external iliac ? vein may represent deep venous th rombosis. Consider septic ? thrombosis. ? 2. ??Extensive right inguinal ajay nopathy present. ? 3. ??There is extensive soft tiss ue swelling and inflammation ? seen within the soft tissues of t he right thigh. There is fluid ? surrounding the medial compartmen t sartorius muscle. ? Myofasciitis is not excluded. 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 ? 4. ?? Soft tissue emphysema seen over the right groin consistent ? with patient's history of incisio n and drainage of a right groin ? abscess. ? REPORT SIGNED IN OTHER VENDOR SYSTEM 06/25/2017 ?Reported B y: Romero Farris MD ? CC: ? Transcribed Date/Time: 06/25/2017 (8591) ? Air Intercept Controller: ? Printed Date/Time: 10/17/2018 (04 19) ? PAGE 2 ? Haylee d Report ? Procedure Note Romero Farris MD - 03/05/2019 AN ADDENDUM IS INCLUDED ON THIS REPO RT ADDENDUM The impression should read: Low attenua tion within the right common femoral and external iliac vein this may represent deep venous thrombosis, consider septic thro mbosis. THIS REPORT CONTAINS FINDINGS THAT MAY BE CRITICAL TO PATIENT CARE. The findings were verbally commun icated via telephone conference with Dr. De Los Santos at 11:56 PM EST on 06/25/2017. The findings were acknowledged and understo od. ADDENDUM SIGNED IN OTHER VENDOR SYS TEM 06/25/2017 Reported By: Romero Farris MD Transcribed: 06/25/2017 (2487) [facility] REPORT EXAM: CAT SCAN/PELVIS WITH CONTRAST EX. D/ ([id number]) CLINICAL INFORMATION: R LEG ABSCESS S/P I D, FURTHER ASCESS EXAM: CT Pelvis With Intravenous Contrast CLINICAL HISTORY: 36 years old, female; Signs and symptom s; Other: Unknown; Prior surgery; Surgery type: Endometria l surgery; Additional info: R leg abscess S/P i d, further as cess TECHNIQUE: Axial computed tomography images of the pelvis with intravenous contrast. All CT scans at t his facility use one or more dose reduction techniques, viz.: a utomated exposure control; ma/kV adjustment per patient s ize (including targeted exams where dose is matched to indicati on; i.e. head); or iterative reconstruction technique. CONTRAST: 100 mL of OMNI 350 administered intrave nously. COMPARISON: CR - PELVIS 2015-11-17 11:45 FINDINGS: Bowel: There is moderate increased colo marlena fecal content. The colon is mildly distended. These fi ndings suggest a moderate degree of constipation. Clinic al correlation recommended. No mucosal thickening. Appendix: There is no evidence of appen dicitis. Intraperitoneal space: There is no free intraperitoneal air. There is no evidence of free intraperit varma or pelvic fluid. Small amount of free fluid seen within the pelvis. Bladder: The bladder is normal. The deanna dder is normal. Reproductive: The uterus is normal. Bones/joints: The skeletal structures a nd soft tissues show no evidence of fracture or other acute processes. No PAGE 1 Signed Report (CONTINUED) AN ADDENDUM IS INCLUDED ON THIS REPO RT dislocation. Soft tissues: There is extensive soft t issue swelling and inflammation seen within the soft tissu es of the right thigh. There is fluid surrounding the medial c ompartment sartorius muscle. Myofasciitis is not excluded. C onsider MRI for further evaluation. The associated soft tissues are unremarkable. Vasculature: Low attenuation within the right common and external iliac vein may represent deep venous thrombosis. No lower abdominal aortic aneurysm. Lymph nodes: Extensive right inguinal a denopathy present. There is no evidence of lymphadenopathy . Other findings: There is no evidence of intestinal obstruction. IMPRESSION: 1. Low attenuation within the right com mon and external iliac vein may represent deep venous thrombos is. Consider septic thrombosis. 2. Extensive right inguinal adenopathy present. 3. There is extensive soft tissue swell ing and inflammation seen within the soft tissues of the rig ht thigh. There is fluid surrounding the medial compartment sart orius muscle. Myofasciitis is not excluded. Consider MRI for further evaluation. 4. Soft tissue emphysema seen over the right groin consistent with patient's history of incision and drainage of a right groin abscess. REPORT SIGNED IN OTHER VENDOR SYSTEM 06/25/2017 Reported By: Romero Farris MD CC: Transcribed Date/Time: 06/25/2017 (5239 ) Air Intercept Controller: Printed Date/Time: 10/17/2018 (1327) PAGE 2 Signed Report Performing Organization Address City/[facility]/ZIP Code Phon e Number [facility] RADIOLOGY BLOOD CULTURE - [facility] (06/25/2017 23:30 EST) Pathologist Sig nature BLOOD CULTURE - [facility] BLOOD CULTURE - NO GROWTH AT [address] [facility] Specimen Narrative [facility] - 018 6:34 EST Does PT Have a Latex Allergy? NO Performing Organization Address City/[facility]/ZIP Code Phon e Number [facility] [address] LAB BLOOD CULTURE - [facility] (06/25/2017 22:18 EST) Pathologist Sig nature BLOOD CULTURE - [facility] BLOOD CULTURE - NO GROWTH AT 5 [facility] Specimen Narrative [facility] - 018 6:34 EST Does PT Have a Latex Allergy? NO Performing Organization Address City/[facility]/ZIP Code Phon e Number [facility] [address] LAB (ABNORMAL) COMPLETE BLOOD COUNT WITH DIFFERENTIAL (AUTO) (06/25/2017 22:18 EST) Pathologist Sig nature ABSOLUTE NEUTROPHIL 7.62 (H) 1.7 - 7.0 [facility] COUN - [facility] 10e3/ul CENTER LAB BASO # - [facility] 0.02 0.0 - 0.3 [facility] 10e3/uL CENTER LAB BASO % - [facility] 0 0 - 2 % [facility] EOS # - [facility] 0.15 0.05 - 0.5 [facility] 10e3/uL CENTER LAB EOS % - [facility] 2 0 - 5 % [facility] GRAN % - [facility] 80 40 - 80 % [facility] HEMATOCRIT - [facility] 29.5 (L) 34.0 - 47.0 % [facility] HEMOGLOBIN - [facility] 9.4 (L) 11.2 - 15.7 [facility] g/dl [facility] IG# - [facility] 0.04 0 - 0.07 [facility] 10e3/uL [facility] IG% - [facility] 0.4 0 - 0.9 % [facility] LYMPH # - [facility] 1.03 0.9 - 2.9 [facility] 10e3/uL [facility] LYMPH% - [facility] 11 (L) 20 - 40 % [facility] MEAN CORPUSCULAR HGB 26.6 26 - 34 pg [facility] MEAN CORPUSCULAR HGB 31.9 31 - 36 g/dL [facility] CONC [facility] MEAN CELL VOLUME - 83.6 77 - 100 fl [facility] MONO # - [facility] 0.68 0.3 - 0.9 [facility] 10e3/uL [facility] MONO% - [facility] 7 0 - 12 % [facility] LAB PLATELET COUNT 284 150 - 400 [facility] 10e3/ul [facility] RED BLOOD COUNT - 3.53 (L) 3.8 - 5.2 [facility] 10e6/ul [facility] RED CELL DISTRI WIDTH 13.4 11.8 - 15.6 % [facility] WHITE BLOOD COUNT - 9.5 3.5 - 10.5 [facility] 10e3/ul [facility] Specimen Narrative [facility] - 018 22:31 EST Does PT Have a Latex Allergy? NO Performing Organization Address City/State/ZIP Code Phon e Number [facility] [address] LAB (ABNORMAL) HEPATIC FUNCTION PANEL (ALB,ALK PHOS,ALT,AST,DBIL,TOT ROULA,TOT PROT) (06/25/2017 21:37 EST) ALBUMIN - [facility] 3.1 (L) 3.4 - 4.9 g/dL [facility] ALKALINE PHOSPHATASE - 169 (H) 38 - 126 U/L [facility] BILIRUBIN DIRECT CALC TNP 0.0 - 0.4 mg/dL [facility] LAB BILIRUBIN TOTAL <0.2 (L) 0.2 - 1.3 mg/dL [facility] Unconjugated Bilirubin 0.1 0.0 - 1.1 mg/dL [facility] TOTAL PROTEIN - [facility] 7.2 6.2 - 8.2 gm/dL [facility] SGOT/AST - [facility] 24 14 - 36 U/L [facility] SGPT/ALT - [facility] 25 9 - 52 U/L [facility] LAB Specimen Performing Organization Address City/State/ZIP Code Phon e Number [facility] [address] [place], [place] [id number] [place] [address] LAB ROUTINE CULTURE - [facility] (06/25/2017 20:57 EST) Culture The mecA gene product was NOT detected in this c oagulase [facility] positive Staph isolate. It is SUSCEPTIBLE to oxacillin , [facility] cephalosporins and other beta lactam antibiotics. STAPHYLOCOCCUS SP STAPHYLOCOCCUS SP [facility] COAG POSITIVE - [facility] COAG POS [facility] QUANT - [facility] MANY [facility] Specimen Narrative [facility] - 018 6:46 EST Does PT Have a Latex Allergy? NO Swab Source/Specimen Description: R groi n abscess Organism Antibiotic Method Susceptibility Staphylococcus sp coag Azithromycin GRAM POSITIVE Susceptib le pos SUSCEPTIBILITY - [facility] Staphylococcus sp coag Clindamycin GRAM POSITIVE <=0.25: S usceptible pos SUSCEPTIBILITY - [facility] Staphylococcus sp coag Cefpodoxime GRAM POSITIVE Susceptib le pos SUSCEPTIBILITY - [facility] Staphylococcus sp coag Cefazolin GRAM POSITIVE Susceptib le pos SUSCEPTIBILITY - [facility] Staphylococcus sp coag Erythromycin GRAM POSITIVE <=0.25: S usceptible pos SUSCEPTIBILITY - [facility] Staphylococcus sp coag Levofloxacin GRAM POSITIVE <=0.12: S usceptible pos SUSCEPTIBILITY - [facility] Staphylococcus sp coag Oxacillin GRAM POSITIVE 0.5: Susc eptible pos SUSCEPTIBILITY - [facility] Staphylococcus sp coag Penicillin GRAM POSITIVE >=0.5: Re sistant pos SUSCEPTIBILITY - [facility] Staphylococcus sp coag Trimethoprim-Sulfame GRAM POSITIVE <=10 : Susceptible pos thoxazole SUSCEPTIBILITY - [facility] Staphylococcus sp coag Tetracycline GRAM POSITIVE <=1: Susc eptible pos SUSCEPTIBILITY - [facility] Staphylococcus sp coag Vancomycin GRAM POSITIVE 1: Suscep tible pos SUSCEPTIBILITY - [facility] Comment: See Reason(s) for Study Performing Organization Address City/[facility]/ZIP Code Phon e Number [facility] [address] [place] [address] [facility] LAB (ABNORMAL) C REACTIVE PROTEIN (06/25/2017 19:18 EST) Pathologist Sig nature C-Reactive Protein 199.1 (H) <10.0 mg/L [facility] Specimen Narrative [facility] - 018 20:09 EST Does PT Have a Latex Allergy? NO Performing Organization Address City/[facility]/ZIP Code Phon e Number [facility] [address] [place] [address] [facility] LAB (ABNORMAL) BASIC METABOLIC PANEL (BMP) (06/25/2017 19:18 EST) BUN - [facility] 11 10 - 26 mg/dL [facility] CALCIUM - [facility] 8.9 8.5 - 10.5 [facility] mg/dL [facility] Chloride 106 96 - 110 [facility] mmol/L [facility] CO2 Total 22 22 - 32 mEq/L [facility] CREATININE 0.78 0.52 - 1.04 [facility] mg/dL [facility] eGFR >60 [facility] Comment: [facility] LAB Chronic renal impairment is defined as GFR <60 Multiply result by 1.210 for patients . eGFR calculated using the [employer]-traceable MDRD Study Equation. ??(effective 03/02/2014) Anion Gap 13 0 - 18 [facility] GLUCOSE - [facility] 110 (H) 70 - 100 mg/dL [facility] Potassium 4.4 3.5 - 5.0 [facility] mEq/L [facility] Sodium 141 136 - 145 [facility] mEq/L [facility] Specimen Narrative [facility] - 018 20:09 EST Does PT Have a Latex Allergy? NO Performing Organization Address City/[facility]/ZIP Code Phon e Number [facility] [address] [place] [address] [facility] documented in this encounter Visit Diagnoses Not on filedocumented in this encounter Care Teams Adult Neurologist Relationship Specialty Start Date End Date Unknown, Provider, PCP - General 02/26/14 06/26/17 documented as of this encounter
--- OUTSIDE RECORDS SUMMARY | 2022-02-03 16:05 | XMS_ITS | Encounter Summary ---
:1980 Author Organization [facility] Address [address] [place] [address] Care Team Providers Name Role Phone Unknown, Provider Primary Care Provider Encounter Details Date Type Department Care Team Description 07/11/2016 Historical Results [facility] - [place], Only [facility] Lab - [place] us Neda MD [address] [phone] Social History Tobacco Use Types Packs/Day [...] Associated Comments Diagnosis COMPLETE BLOOD COUNT Routine 07/11/2016 6:00 Resu lts for this WITH DIFFERENTIAL EDT procedure are in (AUTO) the results section. BASIC METABOLIC PANEL Routine 07/11/2016 6:00 Res ults for this (BMP) EDT procedure are i n the results section. documented in this encounter Results (ABNORMAL) BASIC METABOLIC PANEL (BMP) (07/11/2016 6:00 EDT) BUN - [facility] 26 (H) 7 - 18 mg/dL [facility] CALCIUM - [facility] 8.7 8.5 - 10.1 [facility] mg/dL [facility] Chloride 100 98 - 107 mEq/L [facility] CO2 Total 31 21 - 32 mEq/L [facility] CREATININE 0.77 0.5 - 1.3 [facility] mg/dL [facility] eGFR >60 [facility] Comment: [facility] Chronic renal impairment is defined as GFR <60 Multiply result by 1.210 for patients . eGFR calculated using the IDMS-traceable MDRD Study Equation. ??(effective 03/02/2014) Anion Gap 7 5 - 15 [facility] GLUCOSE - [facility] 81 70 - 100 mg/dL [facility] Potassium 4.2 3.5 - 5.0 [facility] mEq/L [facility] Sodium 138 135 - 145 [facility] mEq/L [facility] Specimen Performing Organization Address City/State/ZIP Code Phon e Number [facility] [address] LAB (ABNORMAL) COMPLETE BLOOD COUNT WITH DIFFERENTIAL (AUTO) (07/11/2016 6:00 EDT) Pathologist Sig nature ABSOLUTE NEUTROPHIL 1.54 (L) 1.7 - 7.0 [facility] COUN - [facility] 10e3/ul DRUMS LAB BASO # - [facility] 0.04 0.0 - 0.3 [facility] 10e3/uL [facility] LAB BASO % - [facility] 1 0 - 2 % [facility] EOS # - [facility] 0.16 0.05 - 0.5 [facility] 10e3/uL [facility] LAB EOS % - [facility] 4 0 - 5 % [facility] GRAN % - [facility] 42 40 - 80 % [facility] HEMATOCRIT - [facility] 28.8 (L) 34.0 - 47.0 % [facility] HEMOGLOBIN - [facility] 9.1 (L) 11.2 - 15.7 [facility] g/dl [facility] LAB IG# - [facility] 0.01 0 - 0.07 [facility] 10e3/uL [facility] LAB IG% - [facility] 0.3 0 - 0.9 % [facility] LYMPH # - [facility] 1.35 0.9 - 2.9 [facility] 10e3/uL [facility] LAB LYMPH% - [facility] 37 20 - 40 % [facility] MEAN CORPUSCULAR HGB 26.9 26 - 34 pg [facility] LAB MEAN CORPUSCULAR HGB 31.6 31 - 36 g/dL [facility] CONC [facility] LAB MEAN CELL VOLUME - 85.2 77 - 100 fl [facility] MONO # - [facility] 0.53 0.3 - 0.9 [facility] 10e3/uL DRUMS LAB MONO% - [facility] 15 (H) 0 - 12 % [facility] PLATELET COUNT 282 150 - 400 [facility] 10e3/ul DRUMS LAB RED BLOOD COUNT - 3.38 (L) 3.8 - 5.2 [facility] 10e6/ul DRUMS LAB RED CELL DISTRI WIDTH 17.1 (H) 11.8 - 15.6 % [facility] D [facility] LAB WHITE BLOOD COUNT - 3.6 3.5 - 10.5 [facility] 10e3/ul DRUMS LAB Specimen Performing Organization Address City/State/ZIP Code Phon e Number [facility] [address] [place], [place] [phone] [place] [address] LAB documented in this encounter Visit Diagnoses Not on filedocumented in this encounter Care Teams Lead Architect Relationship Specialty Start Date End Date Unknown, Provider, PCP - General 02/26/14 06/26/17 documented as of this encounter
--- OUTSIDE RECORDS SUMMARY | 2022-02-03 16:05 | XMS_ITS | Encounter Summary ---
:1980 Author Organization [facility] Address [address] [place] [address] Care Team Providers Name Role Phone Unknown, Provider Primary Care Provider Encounter Details Date Type Department Care Team Description 07/14/2016 Historical Results [facility] - Ernestine Mitchell ld Only [facility] Lab - Main [place] Morales MD [id number] [place] [address] [phone] Social History Tobacco Use Types Packs/Day Years [...] Associated Comments Diagnosis COMPLETE BLOOD COUNT Routine 07/14/2016 6:15 Resu lts for this WITH DIFFERENTIAL EDT procedure are in (AUTO) the results section. documented in this encounter Results (ABNORMAL) COMPLETE BLOOD COUNT WITH DIFFERENTIAL (AUTO) (07/14/2016 6:15 EDT) Pathologist Sig nature ABSOLUTE NEUTROPHIL 1.13 (L) 1.7 - 7.0 [facility] COUN - [facility] 10e3/ul CENTER LAB BASO # - [facility] 0.02 0.0 - 0.3 [facility] 10e3/uL CENTER LAB BASO % - CV 1 0 - 2 % [facility] LAB EOS # - [facility] 0.17 0.05 - 0.5 [facility] 10e3/uL CENTER LAB EOS % - [facility] 6 (H) 0 - 5 % [facility] LAB GRAN % - [facility] 39 (L) 40 - 80 % [facility] LAB HEMATOCRIT - [facility] 29.1 (L) 34.0 - 47.0 % [facility] HEMOGLOBIN - [facility] 9.1 (L) 11.2 - 15.7 [facility] g/dl [place] [facility] IG# - [facility] 0 0 - 0.07 [place] [id number]/[facility] LAB IG% - [facility] 0 0 - 0.9 % [facility] LAB LYMPH # - [facility] 1.08 0.9 - 2.9 [place] [address] LAB LYMPH% - [facility] 38 20 - 40 % [facility] LAB MEAN CORPUSCULAR HGB 26.5 26 - 34 pg [facility] LAB MEAN CORPUSCULAR HGB 31.3 31 - 36 g/dL [facility] CONC [facility] LAB MEAN CELL VOLUME - 84.8 77 - 100 fl [facility] MONO # - [facility] 0.48 0.3 - 0.9 [facility] 10e3/[facility] LAB MONO% - [facility] 17 (H) 0 - 12 % [facility] LAB PLATELET COUNT 211 150 - 400 [facility] 10e3/[facility] LAB RED BLOOD COUNT - 3.43 (L) 3.8 - 5.2 [facility] 10e6/ul [place] LAB RED CELL DISTRI WIDTH 16.8 (H) 11.8 - 15.6 % [facility] ME D [facility] LAB WHITE BLOOD COUNT - 2.9 (L) 3.5 - 10.5 [facility] 10e3/[facility] LAB Specimen Performing Organization Address City/State/ZIP Code Phon e Number [facility] [address] [place], [place] [phone] [place] [address] LAB documented in this encounter Visit Diagnoses Not on filedocumented in this encounter Care Teams Multi Purpose Machine Operator Relationship Specialty Start Date End Date Unknown, Provider, PCP - General 02/26/14 06/26/17 documented as of this encounter
--- OUTSIDE RECORDS SUMMARY | 2022-02-03 16:05 | XMS_ITS | Encounter Summary ---
:1980 Author Organization [facility] Address [address] [place] [address] Care Team Providers Name Role Phone Unknown, Provider Primary Care Provider Encounter Details Date Type Department Care Team Description 07/15/2016 Historical Results [facility] - Ernestine Mitchell ld Only [facility] Lab - Main [place] us Carmen MD 130 [facility] [address] [place] [id number] [place] [address] [id number] Social History Tobacco Use Types Packs/Day Years [...] Associated Comments Diagnosis COMPLETE BLOOD COUNT Routine 07/15/2016 6:00 Resu lts for this WITH DIFFERENTIAL EDT procedure are in (AUTO) the results section. C REACTIVE PROTEIN Routine 07/15/2016 6:00 Result s for this EDT procedure are i n the results section. documented in this encounter Results (ABNORMAL) C REACTIVE PROTEIN (07/15/2016 6:00 EDT) Pathologist Sig nature C-Reactive Protein 3.07 (H) 0.0 - 3.0 mg/L [facility] Specimen Performing Organization Address City/State/ZIP Code Phon e Number [facility] [address] [place] [phone] [place] [address] LAB (ABNORMAL) COMPLETE BLOOD COUNT WITH DIFFERENTIAL (AUTO) (07/15/2016 6:00 EDT) Pathologist Sig nature ABSOLUTE NEUTROPHIL 1.67 (L) 1.7 - 7.0 [facility] COUN - [facility] 10e3/ul CENTER LAB BASO # - [facility] 0.03 0.0 - 0.3 [facility] 10e3/uL [place] [facility] BASO % - [facility] 1 0 - 2 % [facility] EOS # - [facility] 0.16 0.05 - 0.5 [facility] 10e3/uL [place] [facility] EOS % - CV 5 0 - 5 % [facility] GRAN % - [facility] 51 40 - 80 % [facility] HEMATOCRIT - [facility] 30.5 (L) 34.0 - 47.0 % [facility] HEMOGLOBIN - [facility] 9.6 (L) 11.2 - 15.7 [facility] g/dl [place] [facility] IG# - [facility] 0.01 0 - 0.07 [facility] 10e3/uL [place] [facility] IG% - [facility] 0.3 0 - 0.9 % [facility] LYMPH # - [facility] 1.01 0.9 - 2.9 [facility] 10e3/uL [place] [facility] LYMPH% - [facility] 31 20 - 40 % [facility] LAB MEAN CORPUSCULAR HGB 26.4 26 - 34 pg [facility] LAB MEAN CORPUSCULAR HGB 31.5 31 - 36 g/dL [facility] CONC [facility] LAB MEAN CELL VOLUME - 84.0 77 - 100 fl [facility] MONO # - [facility] 0.37 0.3 - 0.9 [facility] 10e3/uL [place] [facility] MONO% - [facility] 11 0 - 12 % [facility] LAB PLATELET COUNT 219 150 - 400 [facility] 10e3/ul [place] [facility] RED BLOOD COUNT - 3.63 (L) 3.8 - 5.2 [facility] 10e6/ul [place] [facility] RED CELL DISTRI WIDTH 16.7 (H) 11.8 - 15.6 % [facility] ME D - [facility] CENTER LAB WHITE BLOOD COUNT - 3.3 (L) 3.5 - 10.5 [facility] 10e3/ul CENTER LAB Specimen Performing Organization Address City/State/ZIP Code Phon e Number [facility] [address] [place] [address] [facility] documented in this encounter Visit Diagnoses Not on filedocumented in this encounter Care Teams Music Librarian Relationship Specialty Start Date End Date Unknown, Provider, PCP - General 02/26/14 06/26/17 documented as of this encounter
--- OUTSIDE RECORDS SUMMARY | 2022-02-03 16:05 | XMS_ITS | Encounter Summary ---
:1980 Author Organization [facility] Address [address] [place] [address] Care Team Providers Name Role Phone Unavailable Primary Care Provider Unavailable Encounter Details Date Type Department Care Team Description 06/28/2017 Historical Results [facility] - Kana Inman MD Only [facility] Lab - Main [facility] [address] 130 [facility] [address] [place] [address] [place] [phone] Social History Tobacco Use Types Packs/Day [...] Procedure Name Priority Date/Time Associated Comments Diagnosis HEPARIN LEVEL - Routine 06/28/2017 6:30 Results f or this UNFRACTIONATED HEPARIN EST proce dure are in the results section. COMPLETE BLOOD COUNT Routine 06/28/2017 6:30 Resu lts for this AND DIFFERENTIAL EST procedure a re in the results section. HEPARIN LEVEL - Routine 06/28/2017 2:00 Results f or this UNFRACTIONATED HEPARIN EST proce dure are in the results section. documented in this encounter Results HEPARIN LEVEL - UNFRACTIONATED HEPARIN (06/28/2017 6:30 EST) Heparin Level-UFH 0.05Comment: [facility] Therapeutic Heparin [facility] UFH Range: 0.30 - 0.70 IU/mL Specimen Narrative [facility] - 018 7:48 EST Does PT Have a Latex Allergy? NO Performing Organization Address City/State/ZIP Code Phon e Number [facility] [address] LAB (ABNORMAL) COMPLETE BLOOD COUNT AND DIFFERENTIAL (06/28/2017 6:30 EST) ABSOLUTE NEUTROPHIL 3.13 1.7 - 7.0 [facility] COUN - [facility] 10e3/ul [facility] BANDS - [facility] 5 (H) 0 - 3 % [facility] BASOPHILIC STIPPLING - [facility] LAB EOS # - [facility] 0.23 0.05 - 0.5 [facility] 10e3/uL [facility] EOSINOPHILS - [facility] 5 0 - 5 % [facility] HEMATOCRIT - [facility] 24.6 (L) 34.0 - 47.0 % [facility] HEMOGLOBIN - [facility] 7.7 (L) 11.2 - 15.7 [facility] g/dl [facility] LYMPH # - [facility] 0.96 0.9 - 2.9 [facility] 10e3/uL [facility] LYMPHOCYTES - [facility] 21 20 - 40 % [facility] MEAN CORPUSCULAR HGB - 26.6 26 - 34 pg [facility] LAB MEAN CORPUSCULAR HGB 31.3 31 - 36 g/dL [facility] CONC - [facility] LAB MEAN CELL VOLUME - [facility] 84.8 77 - 100 fl [facility] MONO # - [facility] 0.18 (L) 0.3 - 0.9 [facility] 10e3/uL [facility] [place] [facility] MONOCYTE - [facility] 4 0 - 12 % [facility] MYELOCYTE - [facility] 2 0 - 3 % [facility] LAB PLATELET COUNT 224 150 - 400 [facility] 10e3/ul [facility] NEUTROPHILS - [facility] 63 40 - 80 % [facility] POLYCHROMASIA - [facility] RARE [facility] RED BLOOD COUNT - [facility] 2.90 (L) 3.8 - 5.2 [facility] 10e6/ul [facility] RED CELL DISTRI WIDTH - 13.1 11.8 - 15.6 % [facility] LAB TEARDROP CELLS - [facility] RARE [facility] LAB WHITE BLOOD COUNT - 4.6 3.5 - 10.5 [facility] 10e3/ul [facility] Specimen Performing Organization Address City/[facility] Code Phon e Number [facility] [address] LAB HEPARIN LEVEL - UNFRACTIONATED HEPARIN (06/28/2017 2:00 EST) Heparin Level-UFH 0.07Comment: [facility] Therapeutic Heparin [facility] UFH Range: 0.30 - 0.70 IU/mL Specimen Narrative [facility] - 018 2:21 EST COMMENTS: per heparin protocol Does PT Have a Latex Allergy? NO Performing Organization Address City/State/[facility] Code Phon e Number [facility] [address] LAB documented in this encounter Visit Diagnoses Not on filedocumented in this encounter
--- OUTSIDE RECORDS SUMMARY | 2022-02-03 16:05 | XMS_ITS | Encounter Summary ---
:1980 Author Organization [facility] Address [address] [place] [address] Care Team Providers Name Role Phone Unknown, Provider Primary Care Provider Encounter Details Date Type Department Care Team Description 06/30/2016 Historical Results [facility] - Alo Conway MD Only [facility] Lab - [place] [address] [facility] [address] [place] [phone] Social History Tobacco Use Types Packs/Day Years [...] Procedure Name Priority Date/Time Associated Comments Diagnosis PREPARE CRYOPRECIPITATE Routine 06/30/2016 15:15 Results for this EST procedure are i n the results section. COMPLETE BLOOD COUNT Routine 06/30/2016 5:55 Resu lts for this WITH DIFFERENTIAL (AUTO) EST pro cedure are in the results section. C REACTIVE PROTEIN Routine 06/30/2016 5:55 Result s for this EST procedure are i n the results section. BASIC METABOLIC PANEL Routine 06/30/2016 5:55 Res ults for this (BMP) EST procedure are i n the results section. documented in this encounter Results PREPARE CRYOPRECIPITATE (06/30/2016 15:15 EST) Specimen Narrative [facility] - 017 15:33 EST Product? RED CELLS # OF UNITS? 2 Transfusion Date? 06/30/16 RedCell Indicator? HCT <25% Performing Organization Address [facility] Phon e Number [facility] [address] [place] [address] [facility] LAB (ABNORMAL) C REACTIVE PROTEIN (06/30/2016 5:55 EST) Pathologist [facility] C-Reactive Protein 90.3 (H) 0.0 - 3.0 mg/L [facility] Specimen Performing Organization Address [facility] Phon e Number [facility] [address] [place] [phone] [place] [address] LAB (ABNORMAL) BASIC METABOLIC PANEL (BMP) (06/30/2016 5:55 EST) Pathologist [facility] BUN [facility] 22 (H) 7 - 18 mg/dL [facility] CALCIUM - [facility] 8.2 (L) 8.5 - 10.1 [facility] mg/dL [facility] Chloride 100 98 - 107 mEq/L [facility] CO2 Total 31 21 - 32 mEq/L [facility] CREATININE 1.04 0.5 - 1.3 [facility] mg/dL [facility] eGFR >60 [facility] Comment: [facility] Chronic renal impairment is defined as GFR <60 Multiply result by 1.210 for patients . eGFR calculated using the IDMS-traceable MDRD Study Equation. ??(effective 03/02/2014) Anion Gap 6 5 - 15 [facility] GLUCOSE - [facility] 88 70 - 100 mg/dL [facility] Potassium 4.8 3.5 - 5.0 [facility] mEq/L [facility] Sodium 137 135 - 145 [facility] mEq/L [facility] Specimen Performing Organization Address [facility] Phon e Number [facility] [address] [place] [address] [facility] LAB (ABNORMAL) COMPLETE BLOOD COUNT WITH DIFFERENTIAL (AUTO) (06/30/2016 5:55 EST) [facility] ABSOLUTE NEUTROPHIL 2.69 1.7 - 7.0 [facility] COUN - [facility] 10e3/ul [facility] BASO # - [facility] 0.01 0.0 - 0.3 [facility] 10e3/uL [facility] BASO % - [facility] 0 0 - 2 % [facility] EOS # - [facility] 0.27 0.05 - 0.5 [facility] 10e3/uL [facility] EOS % - [facility] 6 (H) 0 - 5 % [facility] GRAN % - [facility] 58 40 - 80 % [facility] HEMATOCRIT - [facility] 22.5 (L) 34.0 - 47.0 % [facility] HEMOGLOBIN - [facility] 6.6 (LL) 11.2 - 15.7 [facility] Comment: g/dl [facility] LAB Result called to YUE FISHER/Patricia 06/30/16 0745 Result called by NEO IG# - [facility] 0.13 (H) 0 - 0.07 [facility] 10e3/uL [facility] IG% - [facility] 2.8 (H) 0 - 0.9 % [facility] LYMPH # - CV 0.96 0.9 - 2.9 [facility] 10e3/[facility] LAB LYMPH% - [facility] 21 20 - 40 % [facility] MEAN CORPUSCULAR HGB 24.1 (L) 26 - 34 pg [facility] LAB MEAN CORPUSCULAR HGB 29.3 (L) 31 - 36 g/dL [facility] CONC - [facility] LAB MEAN CELL VOLUME - 82.1 77 - 100 fl [facility] MONO # - [facility] 0.59 0.3 - 0.9 [facility] 10e3/uL [facility] MONO% - [facility] 13 (H) 0 - 12 % [facility] LAB PLATELET COUNT 326 150 - 400 [facility] 10e3/ul [facility] RED BLOOD COUNT - 2.74 (L) 3.8 - 5.2 [facility] 10e6/ul [facility] RED CELL DISTRI 18.9 (H) 11.8 - 15.6 % [facility] WIDTH - [facility] LAB WHITE BLOOD COUNT - 4.7 3.5 - 10.5 [facility] 10e3/ul [facility] Specimen Performing Organization Address City/State/ZIP Code Phon e Number [facility] [address] [place] [address] [facility] documented in this encounter Visit Diagnoses Not on filedocumented in this encounter Care Teams Oracle Applications Analyst Relationship Specialty Start Date End Date Unknown, Provider, PCP - General 02/26/14 06/26/17 documented as of this encounter
--- OUTSIDE RECORDS SUMMARY | 2022-02-03 16:05 | XMS_ITS | Encounter Summary ---
:1980 Author Organization [facility] Address [address] [place] [address] Care Team Providers Name Role Phone Unknown, Provider Primary Care Provider Encounter Details Date Type Department Care Team Description 07/02/2016 Historical Results [facility] - Nivia Bui [facility] Lab - [place] us [place] [address] [place], [place] [address] [place] [address] [phone] Social History Tobacco Use Types Packs/Day [...] Name Priority Date/Time Associated Diagnosis Comme nts CREATININE Routine 07/02/2016 9:30 EST Results for this procedure are i n the results section . documented in this encounter Results CREATININE (07/02/2016 9:30 EST) CREATININE 0.81 0.5 - 1.3 mg/dL [facility] eGFR >60 [facility] Comment: [facility] Chronic renal impairment is defined as GFR <60 Multiply result by 1.210 for patients . eGFR calculated using the IDMS-traceable MDRD Study Equation. ??(effective 03/02/2014) Specimen Narrative [facility] - 017 10:30 EST SPOKE WITH ANIRUDH @1007 - DRAWN, AT NURSING STATION, TRANSPORT TO TAKE -KE SPOKE WITH ANIRUDH AGAIN @0858 - RN KNOWS TO DRAW -KE SPOKE WITH ANIRUDH (2S) @0745 - RN TO DRAW - KE Does PT Have a Latex Allergy? NO Performing Organization Address City/State/ZIP Code Phon e Number [facility] [address] LAB documented in this encounter Visit Diagnoses Not on filedocumented in this encounter Care Teams Service Now Developer Relationship Specialty Start Date End Date Unknown, Provider, PCP - General 02/26/14 06/26/17 documented as of this encounter
--- OUTSIDE RECORDS SUMMARY | 2022-02-03 16:05 | XMS_ITS | Encounter Summary ---
:[address] [facility] Address [address] [place] [address] Care Team Providers Name Role Phone Unknown, Provider Primary Care Provider Encounter Details Date Type Department Care Team Description 07/10/2016 Historical Results [facility] - Nivia Bui [facility] [place] us Faye DO [address] [place], [place] [address] [place] [address] [phone] Social History Tobacco Use Types Packs/Day [...] Name Priority Date/Time Associated Diagnosis Comme nts PLATELET COUNT Routine 07/10/2016 6:10 EDT Result s for this procedure are i n the results section . documented in this encounter Results PLT (07/10/2016 6:10 EDT) Pathologist Sig nature PLATELET COUNT 315 150 - 400 10e3/ul [facility] Specimen Performing Organization Address City/State/ZIP Code Phon e Number [facility] [address] LAB documented in this encounter Visit Diagnoses Not on filedocumented in this encounter Care Teams Thermometer Tester Relationship Specialty Start Date End Date Unknown, Provider, PCP - General 02/26/14 06/26/17 documented as of this encounter
--- OUTSIDE RECORDS SUMMARY | 2022-02-03 16:05 | XMS_ITS | Encounter Summary ---
:[address] [facility] Address [address] [place] [address] Care Team Providers Name Role Phone Unknown, Provider Primary Care Provider Encounter Details Date Type Department Care Team Description 06/30/2016 Historical Results [facility] - Alo Conway MD Only [facility] Lab - Main [facility] [address] [facility] [address] [place], [place] [phone] Social History Tobacco Use Types Packs/Day [...] Name Priority Date/Time Associated Diagnosis Comme nts TYPE AND SCREEN Routine 06/30/2016 15:15 EST Resu lts for this procedure are i n the results section. documented in this encounter Results TYPE AND SCREEN (06/30/2016 15:15 EST) BLOOD TYPE - [facility] A Positive [facility] Antibody Screen NEGATIVE [facility] Comment: [facility] PATIENT'S RESPONSES INDICATE A HISTORY OF SURGERY, TRANSFUSION OR WITHIN THE LAST 3 MONTHS. FOR BLOOD PRODUCTS, THIS SPECIMEN WILL OUTDATE 72 HOUR S FROM THE TIME IT WAS COLLECTED. ??ANY BLOOD PRODUCTS ORDERE D AFTER 72 HOURS MUST BE WORKED UP ON A NEW SPECIMEN. Specimen Expires: 07-03-16 [id number] [facility] Specimen Narrative [facility] - 017 14:40 EST Product? RED CELLS # OF UNITS? 2 Transfusion Date? 06/30/16 RedCell Indicator? HCT <25% Performing Organization Address City/State/ZIP Code Phon e Number [facility] [address] LAB documented in this encounter Visit Diagnoses Not on filedocumented in this encounter Care Teams Software Support Representative Relationship Specialty Start Date End Date Unknown, Provider, PCP - General 02/26/14 06/26/17 documented as of this encounter
--- OUTSIDE RECORDS SUMMARY | 2022-02-03 16:05 | XMS_ITS | Encounter Summary ---
:1980 Author Organization [facility] Address [address] [place] [address] Care Team Providers Name Role Phone Unknown, Provider Primary Care Provider Ratna Olivas MD Primary Care Provider Encounter Details Date Type Department Care Team Description 07/04/2016 Historical Results Only [facility] - Unknown, [facility] Cardiology Clin ic Provider, MD [address] [phone] [place] [address] (Work) [phone] Social History Tobacco Use Types Packs/Day Years [...] Procedure Name Priority Date/Time Associated Comments Diagnosis TRANSTHORACIC ECHO 07/04/2016 12:24 Resul ts for this (TTE) COMPLETE EST procedure are in the results section. PLATELET COUNT Routine 07/04/2016 8:30 Results fo r this EST procedure are i n the results section. CREATININE Routine 07/04/2016 8:30 Results for this EST procedure are i n the results section. documented in this encounter Results TRANSTHORACIC ECHO (TTE) COMPLETE (07/04/2016 12:24 EST) Specimen Narrative [facility] - 07/04/2016 12:24 EST ?[facility] ?[address] [place], [place] [address] ?( [phone] ? E C H O C A R D I O G R A M ? R E P O R T NAME: MONTY JEAN BAPTISTECHLOÉ Engle ?: 84 ? LOCATION: 2S ? TELEPHONE: [phone] ?MR#: [id number] ? *[facility]* *[facility]* [address] [place] [address] Date of study: 07/04/2016 Transesophageal Echocardiography 2D, complete spectral Doppler, and color Doppler *STUDY CONCLUSIONS* Impressions: ?? No evidence of endocardi tis. Summary: 1. Left ventricle: The cavity size was n ormal. Wall thickness was ?? normal. Systolic function was normal . The estimated ejection fraction ?? was 60-65%. 2. Left atrium: No evidence of thrombus in the atrial cavity or ?? appendage. 3. Right ventricle: The cavity size was normal. Wall thickness was ?? normal. Systolic function was normal . 4. Atrial septum: No defect or patent fo ramen ovale was identified. ?? Doppler showed no atrial level shunt . 5. Line: A venous catheter was visualize d in the superior vena cava, ?? with its tip in the right atrium. No abnormal features noted. *PATIENT PRESENTATION* Height: ? () S/D Pressure: Weight: ? () BSA: ORDERING ? Ana Ackerman SAFETY INVESTIGATOR ??Shea Sheppard PERFORMING ?? Cv *PROCEDURE DATA* Procedure information: ??Gerald Mckeon MD supervised and was present for the performance of the entire proced ure. This study was interpreted by [facility]. Pertinent images and digital data are archived for permanent storage and are available for subsequent review. ??Study status: ??Routine. Diagnostic transesoph ageal echocardiography. ??2D, ?[facility] ?[address] [place], [place] [address] ?( [phone] ? E C H O C A R D I O G R A M ? R E P O R T NAME: LINDSAY JEAN BAPTISTE ?: 84 ? LOCATION: 2S ? TELEPHONE: [phone] ?MR#: [id number] ? complete spectral Doppler, and color Dop pler. ??Consent: ??The risks, benefits, and alternatives to the proced ure were explained to the patient and consent was verbally obtaine d. ??Barriers to education: ??No barriers to education identified. Initia l setup. The patient was brought to the laboratory in the fasting state. Surface ECG leads, blood pressure measurements, and pulse oximetr ic signals were monitored. Sedation. Moderate sedation was administ ered . A Transesophageal echocardiogram was performed for endocar ditis evaluation. Topical anesthesia was obtained using viscous li docaine. An adult multiplane transesophageal probe was inserted by St jennifer Mckeon MDwith some difficulty. Images were obtained using a [facility] IE33 2 cardiac ultrasound machine. Image quality was adequate. The transesophageal probe was removed. ??Study completion: ??The patie nt tolerated the procedure well. There was no blood loss or specimens rem mario during the procedure. There were no complications. ??Administered me dications: ?? Fentanyl, 25mcg, IV administered by [facility] staff . ??Midazolam , 8mg, IV administered by [facility] staff . *INDICATIONS AND HISTORY* Indications: ?? Bacteremia (R78.81), danna archibald, pre-procedure. History: ?PMH: ??No prior cardiac hi story. *CARDIAC ANATOMY* Left ventricle: ??The cavity size was no rmal. Wall thickness was normal. Systolic function was normal. The estima isabel ejection fraction was 60-65%. Aortic valve: ?? Structurally normal lili ve. ?? Cusp separation was normal. No evidence of vegetation. ??Doppler: ? ?There was no significant regurgitation. Aorta: ??Aortic root: The aortic root wa s normal in size. Ascending aorta: The ascending aorta was normal in size. Mitral valve: ?? Structurally normal lili ve. ?? Leaflet separation was normal. ??No evidence of vegetation. ??D oppler: ??There was trivial regurgitation. Left atrium: ??The atrium was normal in size. ??No evidence of thrombus in the atrial cavity or appendage. Atrial septum: ??No defect or patent for amen ovale was identified. Doppler showed no atrial level shunt. Right ventricle: ??The cavity size was n ormal. Wall thickness was normal. Systolic function was normal. Pulmonic valve: ?Structurally normal valve. ?? Cusp separation was normal. ??No evidence of vegetation. Tricuspid valve: ?? Structurally normal valve. ?? Leaflet separation was normal. ??No evidence of vegetation. ??D oppler: ??There was no regurgitation. Right atrium: ??The atrium was normal in size. ??No evidence of thrombus ?[facility] ?[address] [place], [place] [address] ?( [phone] ? E C H O C A R D I O G R A M ? R E P O R T NAME: LINDSAY JEAN BAPTISTE ?: 84 ? LOCATION: 2S ? TELEPHONE: [phone] ?MR#: [id number] ? in the atrial cavity or appendage. Systemic veins: Line: A venous catheter was visualized i n the superior vena cava, with its tip in the right atrium. No abnormal features noted. I have personally reviewed the images an d have reviewed and edited the reported findings. Electronically signed by Gerald Mckeon 07/04/2016 13:45 Procedure Note Gerald Mckeon MD - 02/16/2019 [facility] [address] [place] [phone] E C H O C A R D I O G R A M R E P O R T NAME: LINDSAY JEAN BAPTISTE : 84 LOCATION: 2S TELEPHONE: [phone] MR#: [id number] ACC T#: [id number] *[facility]* *[facility]* [address] [facility] [place] [address] Date of study: 07/04/2016 Transesophageal Echocardiography 2D, complete spectral Doppler, and color Doppler *STUDY CONCLUSIONS* Impressions: No evidence of endocarditis . Summary: 1. Left ventricle: The cavity size was n ormal. Wall thickness was normal. Systolic function was normal. T he estimated ejection fraction was 60-65%. 2. Left atrium: No evidence of thrombus in the atrial cavity or appendage. 3. Right ventricle: The cavity size was normal. Wall thickness was normal. Systolic function was normal. 4. Atrial septum: No defect or patent fo ramen ovale was identified. Doppler showed no atrial level shunt. 5. Line: A venous catheter was visualize d in the superior vena cava, with its tip in the right atrium. No ab normal features noted. *PATIENT PRESENTATION* Height: () S/D Pressure: Weight: () BSA: ORDERING Ana Ackerman SAFETY INVESTIGATOR Shea Sheppard PERFORMING Cv *PROCEDURE DATA* Procedure information: Rica Roberts supervised and was present for the performance of the entire proced ure. This study was interpreted by [facility]. Pertinent images and digital data are archived for permanent storage and are available for subsequent review. Study status: Routine. Diagnostic transesophag eal echocardiography. 2D, [facility] [address] [place], [place] [address] [phone] E C H O C A R D I O G R A M R E P O R T NAME: LINDSAY JEAN BAPTISTE : 84 LOCATION: TELEPHONE: [phone] MR#: [id number] [facility] T#: [id number] complete spectral Doppler, and color Dop pler. Consent: The risks, benefits, and alternatives to the proced ure were explained to the patient and consent was verbally obtaine d. Barriers to education: No barriers to education identified. Initia l setup. The patient was brought to the laboratory in the fasting state. Surface ECG leads, blood pressure measurements, and pulse oximetr ic signals were monitored. Sedation. Moderate sedation was administ ered . A Transesophageal echocardiogram was performed for endocar ditis evaluation. Topical anesthesia was obtained using viscous li docaine. An adult multiplane transesophageal probe was inserted by St jennifer Mckeon MDwith some difficulty. Images were obtained using a [facility] IE33 2 cardiac ultrasound machine. Image quality was adequate. The transesophageal probe was removed. Study completion: The patient t olerated the procedure well. There was no blood loss or specimens rem mario during the procedure. There were no complications. Administered medi cations: Fentanyl, 25mcg, IV administered by [facility] staff . Midazolam, 8mg, IV administered by [facility] staff . *INDICATIONS AND HISTORY* Indications: Bacteremia (R78.81), known, pre-procedure. History: PMH: No prior cardiac history. *CARDIAC ANATOMY* Left ventricle: The cavity size was norm al. Wall thickness was normal. Systolic function was normal. The estima isabel ejection fraction was 60-65%. Aortic valve: Structurally normal valve. Cusp separation was normal. No evidence of vegetation. Doppler: The re was no significant regurgitation. Aorta: Aortic root: The aortic root was normal in size. Ascending aorta: The ascending aorta was normal in size. Mitral valve: Structurally normal valve. Leaflet separation was normal. No evidence of vegetation. Doppl er: There was trivial regurgitation. Left atrium: The atrium was normal in si ze. No evidence of thrombus in the atrial cavity or appendage. Atrial septum: No defect or patent kait en ovale was identified. Doppler showed no atrial level shunt. Right ventricle: The cavity size was nor mal. Wall thickness was normal. Systolic function was normal. Pulmonic valve: Structurally normal valv e. Cusp separation was normal. No evidence of vegetation. Tricuspid valve: Structurally normal lili ve. Leaflet separation was normal. No evidence of vegetation. Doppl er: There was no regurgitation. Right atrium: The atrium was normal in s ize. No evidence of thrombus [facility] [address] [place] [phone] E C H O C A R D I O G R A M R E P O R T NAME: LINDSAY JEAN BAPTISTE : 84 LOCATION: TELEPHONE: [phone] MR#: [id number] [facility] T#: [id number] in the atrial cavity or appendage. Systemic veins: Line: A venous catheter was visualized i n the superior vena cava, with its tip in the right atrium. No abnormal features noted. I have personally reviewed the images an d have reviewed and edited the reported findings. Electronically signed by Gerald Mckeon 07/04/2016 13:45 Performing Organization Address City/[facility]/ZIP Code Phon e Number [facility] CREATININE (07/04/2016 8:30 EST) CREATININE 0.72 0.5 - 1.3 mg/dL [facility] LAB eGFR >60 [facility] Comment: CENTER LAB Chronic renal impairment is defined as GFR <60 Multiply result by 1.210 for patients . eGFR calculated using the IDMS-traceable MDRD Study Equation. ??(effective 03/02/2014) Specimen Narrative [facility] - 017 9:10 EST Does PT Have a Latex Allergy? NO Performing Organization Address City/[facility] Code Phon e Number [facility] [address] LAB (ABNORMAL) PLT (07/04/2016 8:30 EST) Pathologist Sig nature PLATELET COUNT 548 (H) 150 - 400 10e3/ul [facility] Specimen Performing Organization Address City/[facility] Code Phon e Number [facility] [address] [place], [place] [id number] [place] [address] LAB documented in this encounter Visit Diagnoses Not on filedocumented in this encounter Care Teams Roll Threader Operator Relationship Specialty Start Date End Date Unknown, MD Rambo PCP - General 02/26/14 06/26/17 Ratna Olivas MD PCP - General 03/05/[address] [place] [phone] documented as of this encounter
--- OUTSIDE RECORDS SUMMARY | 2022-02-03 16:05 | XMS_ITS | Encounter Summary ---
:1980 Author Organization [facility] Address [address] [place] [address] Care Team Providers Name Role Phone Unknown, Provider Primary Care Provider Encounter Details Date Type Department Care Team Description 07/07/2016 Historical Results [facility] - Nivia Bui [facility] Lab - [place] us Faye DO [address] [place], [place] [address] [place] [address] [phone] Social History Tobacco Use Types Packs/Day [...] Associated Diagnosis Comme nts PLATELET COUNT Routine 07/07/2016 6:00 EST Result s for this procedure are i n the results section . documented in this encounter Results PLT (07/07/2016 6:00 EST) Pathologist Sig nature PLATELET COUNT 391 150 - 400 10e3/ul [facility] Specimen Performing Organization Address City/State/ZIP Code Phon e Number [facility] [address] LAB documented in this encounter Visit Diagnoses Not on filedocumented in this encounter Care Teams Tumbler Dyeing Machine Operator Relationship Specialty Start Date End Date Unknown, Provider, PCP - General 02/26/14 06/26/17 documented as of this encounter
--- OUTSIDE RECORDS SUMMARY | 2022-02-03 16:05 | XMS_ITS | Encounter Summary ---
:1980 Author Organization [facility] Address [address] [place] [address] Care Team Providers Name Role Phone Unknown, Provider Primary Care Provider Encounter Details Date Type Department Care Team Description 02/21/2017 Historical Results Health system - Thelma Shankar, Only [facility] Lab - Main [facility] RN [address] [place] [address] [place] [address] Social History Tobacco Use Types Packs/Day Years [...] Procedure Name Priority Date/Time Associated Comments Diagnosis GC/CHLAMYDIA PCR - [facility] Routine 02/21/2017 14:35 Results for this EDT procedure are i n the results section. HUMAN PAPILLOMAVIRUS Routine 02/21/2017 9:18 Resu lts for this (HPV) DETECTION-HIGH EDT procedu re are in RISK TYPES the results section. PAP TEST Routine 02/21/2017 Results for thi s procedure are i n the results section. documented in this encounter Results GC/CHLAMYDIA PCR - [facility] (02/21/2017 14:35 EDT) Pathologist Sig nature CHLAMYDIA PCR - [facility] NOT DETECTED [facility] GONORRHEA PCR - [facility] NOT DETECTED [facility] SOURCE CERVIX [facility] Specimen Performing Organization Address City/[facility]/ZIP Code Phon e Number [facility] [address] [place] [address] [facility] HUMAN PAPILLOMAVIRUS (HPV) DETECTION-HIGH RISK TYPES (02/21/2017 9:18 EDT) Human Papillomavirus NEG [facility] (HPV) Detection-High Comment: [facility] Types Negative for HPV types 16, 18, 31, 33, 35, 39, 45, 51, 52, 56, 58, 59, 66, 68. Method: Cervista HPV HR (High Risk) DNA test. Specimen Performing Organization Address [facility] Code Phon e Number [facility] [address] [place] [address] [facility] PAP TEST (02/21/2017) Specimen Narrative [facility] - 017 10:14 EDT Name: LINDSAY JEAN BAPTISTE ?: 84 ?Age/Sex: 37/F ?Unit#: [id number] ? Loc: AGO ? Status: REG POV ?? Reg Date: 02/21/17 ? Pt.Phone Number : ? Specimen: [id number] ?CINDY STAFFORDKana: SOUT ?Spec Date:02/21/17 ? Physician Copies: ?Thelma Shankar CN Tissues: ? Cervical/Endo Pap ?Suzie Taylor APRN ?? CPT: 00687 ?? Units: ??1 ? CYTOLOGY DIAGNOSIS SPECIMEN ADEQUACY: ?Satisfactory for evaluation. Transformation zone component present. GENERAL CATEGORIZATION: ?Negative fo r Intraepithelial Lesion or Malignancy DESCRIPTIVE DIAGNOSIS: ??Reactive cellul ar changes associated with inflammation present (includes typical repair). ?HPV DNA RESULTS ? LABORATORY ?? Date ? Time Test ?Result ?? Flag ?Normal Range ?? 02/21/17 0918 HPV DNA RESULT ??NEG ? Negative for HP V types 16, 18, 31, 33, 35, 39, 45, 51, 52, ? 56, 58, 59, 66, 68. ? Method: Cervist a HPV HR (High Risk) DNA test. ORDER QUERIES: LMP: 01/26/17- WNL ?Pregna nt? N Post ? N ??PREVIOUS ATYPICAL: N BCP/HRT? Y Rad Rx? N IUD? N ??PAP PLUS HPV? Y ??REFLEX TO HR-HPV IF ASCUS N REFLEX TO HPV 16/18 IF HPV POS/PAP NEG Y HPV REGARDLESS? N ??RFLX HPV IF LSIL ?? Signed ____(signature on file)____ Carlee Bowens M.D. 03/01/17 ? By the signature above, the attending ph ysician certifies that he/she has personally conducted a gross and/or microscopic exa mination of the described specimens and rendered or confirmed the above diagnosi s. Test Performed by [facility], [address] [place] [address] Transfer Specialist: Jaimee Silvestre MD PHD Performing Organization Address City/State/ZIP Code Phon e Number [facility] [address] [place], [place] [id number] [place] [address] LAB documented in this encounter Visit Diagnoses Not on filedocumented in this encounter Care Teams Supervisor Electronics Assembly Relationship Specialty Start Date End Date Unknown, Provider, PCP - General 02/26/14 06/26/17 documented as of this encounter
--- OUTSIDE RECORDS SUMMARY | 2022-02-03 16:05 | XMS_ITS | Encounter Summary ---
:1980 Author Organization [facility] Address [address] [place] [address] Care Team Providers Name Role Phone Unavailable Primary Care Provider Unavailable Encounter Details Date Type Department Care Team Description 06/27/2017 Results Only Imaging [facility]- Unknown, [facility] Provider, Social History Tobacco Use [...] Associated Diagnoses Date/Ti me OUTSIDE IMAGES - US BODY Imaging 16:21 EST documented as of this encounter Visit Diagnoses Not on filedocumented in this encounter
--- OUTSIDE RECORDS SUMMARY | 2022-02-03 16:05 | XMS_ITS | Encounter Summary ---
:[address] [facility] Address [address] [place] [address] Care Team Providers Name Role Phone Unknown, Provider Primary Care Provider Encounter Details Date Type Department Care Team Description 06/26/2017 Historical Results [facility], Only [facility] Radiology Resul ts MD Lindsay [address] [place], [place] [id number] [place] [address] [phone] Social History Tobacco Use Types Packs/Day [...] Priority Date/Time Associated Comments Diagnosis US EXTREMITY 06/26/2017 14:51 Results for this EST procedure are i n the results section. HIV 1/2 AB, P24 AG - Routine 06/26/2017 9:40 Resu lts for this [facility] EST procedure are i n the results section. COMPLETE BLOOD COUNT Routine 06/26/2017 9:40 Resu lts for this WITH DIFFERENTIAL EST procedure are in (AUTO) the results section. PROTIME/PARTIAL Routine 06/26/2017 9:40 Results f or this PROTIME ([facility]) EST procedure are in the results section. HCV RNA DETECT QUANT Routine 06/26/2017 9:40 Resu lts for this EST procedure are i n the results section. FIBRINOGEN Routine 06/26/2017 9:40 Results for this EST procedure are i n the results section. PHOSPHORUS Routine 06/26/2017 9:40 Results for this EST procedure are i n the results section. MAGNESIUM Routine 06/26/2017 9:40 Results for this EST procedure are i n the results section. COMPREHENSIVE Routine 06/26/2017 9:40 Results for this METABOLIC PANEL (CMP) EST proced ure are in the results section. URINALYSIS/COMPLETE - Routine 06/26/2017 3:00 Res ults for this [facility] EST procedure are i n the results section. DRUG SCREEN, Routine 06/26/2017 3:00 Results for this PRESCRIPTION/OTC, EST procedure are in URINE the results section. documented in this encounter Results US EXTREMITY (06/26/2017 14:51 EST) Specimen Narrative [facility] - 06/26/2017 14:54 EST ? EXAM: ULTRASOUND/DOPPLER VEIN EXTREM.BILA EX. D/ (1447) ? CLINICAL INFORMATION: ? SBLE, ? DVT on CT ? DOPPLER VEIN EXTREM.BILAT ? Signs and Symptoms/Comments: R LO WER EXT ABSCESS SBLE, ? DVT on CT ? Comparisons: CT pelvis 06/25/2017 ? Technique: Static grayscale ultra sound images including color Doppler ? and spectral tracings, were obtai ruth of the deep venous system of the ? bilateral lower extremities. ? Findings: There is complete compr essibility, normal respiratory ? phasicity and normal color Dopple r flow in the left greater ? saphenous, left common femoral, s uperficial femoral, and popliteal ? veins. The right common femoral v ein and greater saphenous vein are ? obscured by bandages. Therefore, this could not be assessed by ? ultrasound. ? The calf veins display normal com pressibility and normal color ? doppler flow. ? Impression: ? No sonographic evidence of DVT in the bilateral lower extremities. ? Please note, the site of thrombus which is seen on the comparison CT ? pelvis 06/25/2017 within the right proximal common femoral vein could ? not be assessed as a bandage is p resent in the area. ? REPORT SIGNED IN OTHER VENDOR SYSTEM 06/26/2017 ?Reported B y: Maldonado Grijalva MD ? CC: Evelyn Inman ? Transcribed Date/Time: 06/26/2017 (1454) ? Catering Associate: ? Printed Date/Time: 10/17/2018 (04 19) ? PAGE 1 ? Haylee d Report ? Procedure Note Maldonado Grijalva MD - 03/05/2019 EXAM: ULTRASOUND/DOPPLER VEIN EXTREM.BI LA EX. D/ (1447) CLINICAL INFORMATION: SBLE, ? DVT on CT DOPPLER VEIN EXTREM.BILAT Signs and Symptoms/Comments: R LOWER EX T ABSCESS SBLE, ? DVT on CT Comparisons: CT pelvis 06/25/2017 Technique: Static grayscale ultrasound images including color Doppler and spectral tracings, were obtained of the deep venous system of the bilateral lower extremities. Findings: There is complete compressibi lity, normal respiratory phasicity and normal color Doppler flow in the left greater saphenous, left common femoral, superfi cial femoral, and popliteal veins. The right common femoral vein an d greater saphenous vein are obscured by bandages. Therefore, this c ould not be assessed by ultrasound. The calf veins display normal compressi bility and normal color doppler flow. Impression: No sonographic evidence of DVT in the b ilateral lower extremities. Please note, the site of thrombus which is seen on the comparison CT pelvis 06/25/2017 within the right proxi mal common femoral vein could not be assessed as a bandage is present in the area. REPORT SIGNED IN OTHER VENDOR SYSTEM 06/26/2017 Reported By: Maldonado Grijalva MD CC: Evelyn Inman Transcribed Date/Time: 06/26/2017 (4223 ) Catering Associate: Printed Date/Time: 10/17/2018 (4559) PAGE 1 Signed Report Performing Organization Address City/[facility]/ZIP Code Phon e Number [facility] PHOSPHORUS (06/26/2017 9:40 EST) Pathologist Sig nature PHOSPHOROUS - [facility] 3.2 2.5 - 4.5 mg/dL [facility] Specimen Performing Organization Address City/[facility] Code Phon e Number [facility] [address] LAB MAGNESIUM (06/26/2017 9:40 EST) Pathologist Sig nature Magnesium 1.70 1.7 - 2.8 mg/dL [facility] Specimen Performing Organization Address City/[facility] Phon e Number [facility] [address] LAB (ABNORMAL) COMPREHENSIVE METABOLIC PANEL (CMP) (06/26/2017 9:40 EST) ALBUMIN - [facility] 2.6 (L) 3.4 - 4.9 [facility] g/dL [facility] ALKALINE 122 38 - 126 U/L [facility] PHOSPHATASE [facility] BILIRUBIN TOTAL <0.2 (L) 0.2 - 1.3 [facility] mg/dL [facility] BUN - [facility] 11 10 - 26 mg/dL [facility] CALCIUM - [facility] 8.5 8.5 - 10.5 [facility] mg/dL [facility] Chloride 105 96 - 110 [facility] mmol/L [facility] CO2 Total 24 22 - 32 mEq/L [facility] CREATININE 0.77 0.52 - 1.04 [facility] mg/dL [facility] LAB eGFR >60 [facility] Comment: [facility] Chronic renal impairment is defined as GFR <60 Multiply result by 1.210 for patients . eGFR calculated using the IDMS-traceable MDRD Study Equation. ??(effective 03/02/2014) Anion Gap 10 0 - 18 [facility] GLUCOSE - [facility] 82 70 - 100 [facility] mg/dL [facility] LAB Potassium 4.2 3.5 - 5.0 [facility] mEq/L [facility] Sodium 139 136 - 145 [facility] mEq/L [facility] LAB TOTAL PROTEIN - 6.1 (L) 6.2 - 8.2 [facility] gm/dL [facility] LAB SGOT/AST - [facility] 18 14 - 36 U/L [facility] SGPT/ALT - [facility] 24 9 - 52 U/L [facility] Specimen Performing Organization Address [facility]/ZIP Code Phon e Number [facility] [address] LAB PROTIME/PARTIAL PROTIME ([facility]) (06/26/2017 9:40 EST) INR - [facility] 1.0 0.9 - 1.2 [facility] Comment: [facility] LAB Low intensity INR: 2.0-3.0 High intensity INR: Consult Coag Dept. PROTHROMBIN TIME - 10.4 9.5 - 13.4 [facility] SECONDS [facility] PARTIAL THROMBO 23 21 - 34 SECONDS [facility] TIME - [facility] Specimen Performing Organization Address [facility]/ZIP Code Phon e Number [facility] [address] LAB (ABNORMAL) FIBRINOGEN (06/26/2017 9:40 EST) Pathologist Sig nature Fibrinogen 557 (H) 187 - 439 mg/dl [facility] Specimen Performing Organization Address City/[facility]/ZIP Code Phon e Number [facility] [address] LAB (ABNORMAL) COMPLETE BLOOD COUNT WITH DIFFERENTIAL (AUTO) (06/26/2017 9:40 EST) Pathologist Sig nature ABSOLUTE NEUTROPHIL 2.54 1.7 - 7.0 [facility] COUN - [facility] 10e3/ul CENTER LAB BASO # - [facility] 0 0.0 - 0.3 [facility] 10e3/uL CENTER LAB BASO % - [facility] 0 0 - 2 % [facility] EOS # - [facility] 0.04 (L) 0.05 - 0.5 [facility] 10e3/uL [facility] EOS % - [facility] 1 0 - 5 % [facility] GRAN % - [facility] 81 (H) 40 - 80 % [facility] HEMATOCRIT - [facility] 48.5 (H) 34.0 - 47.0 % [facility] HEMOGLOBIN - [facility] 15.6 11.2 - 15.7 [facility] g/dl [facility] IG# - [facility] 0.04 0 - 0.07 [facility] 10e3/uL [facility] IG% - [facility] 1.3 (H) 0 - 0.9 % [facility] LYMPH # - [facility] 0.33 (L) 0.9 - 2.9 [facility] 10e3/uL [facility] LYMPH% - [facility] 11 (L) 20 - 40 % [facility] MEAN CORPUSCULAR HGB 26.5 26 - 34 pg [facility] MED [facility] MEAN CORPUSCULAR HGB 32.2 31 - 36 g/dL [facility] CONC [facility] C[facility] LAB MEAN CELL VOLUME - 82.5 77 - 100 fl [facility] LAB MONO # - [facility] 0.20 (L) 0.3 - 0.9 [facility] 10e3/uL [facility] MONO% - [facility] 6 0 - 12 % [facility] LAB PLATELET COUNT 123 (L) 150 - 400 [facility] 10e3/[facility] LAB RED BLOOD COUNT - 5.88 (H) 3.8 - 5.2 [facility] 10e6/ul [facility] RED CELL DISTRI WIDTH 13.5 11.8 - 15.6 % [facility] D - [facility] CENTER LAB WHITE BLOOD COUNT - 3.2 (L) 3.5 - 10.5 [facility] 10e3/ul [facility] Specimen Performing Organization Address City/State/ZIP Code Phon e Number [facility] [address] [place], [place] [id number] [place] [address] LAB HIV 1/2 AB, P24 AG [facility] (06/26/2017 9:40 EST) HIV 1/2 AB, P24 Negative NEGAT [facility] AG [facility] Comment: MED CENTER LAB ?? Fourth generation assay performed on the Siemens Postcronaur. If acute HIV-1 infection is suspected in a high risk patient, submit plasma specimen for HIV-1 RNA quantification test. ?? Test Performed by: THE [address] [address] Community Development Officer: Arnold Arias MD , Ph D Specimen Performing Organization Address [facility] Phon e Number [facility] [address] LAB HCV RNA DETECT QUANT (06/26/2017 9:40 EST) [facility] HCV RNA Undetected Undetected IU/mL [facility] Quantitative Comment: [facility] LAB Result in log IU/mL is Undetected. ADDITIONAL INFORMATION ------ The quantification range of this assay is 15 to 100,00 0,000 IU/mL (1.18 log to 8.00 log IU/mL). Testing was perfor [facility] using the tanmay HCV test ([employer]) with the tanmay 6800 System. Test Performed by: [facility] [address] Specimen Performing Organization Address [facility] Phon e Number [facility] [address] LAB URINALYSIS/COMPLETE - [facility] (06/26/2017 3:00 EST) [facility] URINE APPEARANCE - Clear CLEAR [facility] LAB URINE BACTERIA - NEG [facility] LAB URINE BILIRUBIN - Negative NEGATIVE [facility] DIPSTICK [facility] URINE BLOOD - [facility] 3+ NEG [facility] URINE COLOR - [facility] Yellow YELLOW [facility] LAB URINE GLUCOSE - Negative NEGATIVE [facility] DIPSTICK [facility] LAB URINE KETONE - [facility] Negative NEGATIVE [facility] LAB URINE LEUK ESTERASE Negative NEG [facility] LAB URINE NITRITE - Negative NEG [facility] DIPSTICK [facility] LAB URINE PH - [facility] 6.5 4.0 - 8.0 [facility] URINE PROTEIN - 1+ NEG [facility] DIPSTICK [facility] LAB URINE RBC - [facility] 30-40 rbc/hpf [facility] URCULTIF+? - [facility] No Culture [facility] IndicatedComment: [facility] LAB CULTURE IS NOT INDICATED, BASED ON RESULTS OF THE URINALYSIS URINE SPECIFIC 1.010 1.001 - 1.035 [facility] GRAVITY - [facility] LAB URINE SQUAMOUS CELLS MANY NEG #/hpf [facility] LAB URINE UROBILINOGEN - 0.2 0.2 - 1.0 [facility] DIPSTICK [facility] LAB URINE WBC - [facility] NEG NEG wbc/hpf [facility] LAB Specimen Performing Organization Address City/State/ZIP Code Phon e Number [facility] [address] [place], [place] [id number] [place] [address] LAB (ABNORMAL) DRUG SCREEN, PRESCRIPTION/OTC, URINE (06/26/2017 3:00 EST) AMPHETAMINES NEG NEG [facility] LAB BARBITURATES,UR - NEG NEG [facility] LAB BENZODIAZEPINES POS (A) NEG [facility] COCAINE,URINE - [facility] POS (A) NEG [facility] MAMP NEG NEG REFUGIO (METHAMPHETAMINES - [facility] CENTER LAB MARIJUANA,URINE - NEG NEG [facility] LAB MTD (METHADONE) - NEG NEG [facility] LAB OPIATES,URINE - [facility] NEG NEG [facility] LAB OXY (OXYCODONE) - NEG NEG [facility] LAB PCP (PHENCYCLIDINE) NEG NEG [facility] LAB PROPOXYPHENE (PPX) - NEG NEG [facility] LAB TRICYCLIC NEG NEG REFUGIO ANTIDEPRESSANTS - Comment: [facility] Drug Class ?Cutoff [facility] CENTER LAB Amphetamines (AMP) ?500 ng /ml [...] for 7 days. Specimen Performing Organization Address City/State/ZIP Code Phon e Number [facility] [address] LAB documented in this encounter Visit Diagnoses Not on filedocumented in this encounter Care Teams Wood Heel Back Liner Relationship Specialty Start Date End Date Unknown, Provider, PCP - General 02/26/14 06/26/17 documented as of this encounter
--- OUTSIDE RECORDS SUMMARY | 2022-02-03 16:06 | XMS_ITS | Encounter Summary ---
:1980 Author Organization [facility] Address [address] [place] [address] Care Team Providers Name Role Phone Unknown, Provider Primary Care Provider Encounter Details Date Type Department Care Team Description 07/27/2015 Historical Results Only [facility] - Aubrey Watkins, [facility] [place] Resul ts MD Megan [address], [place] [id number] Social History Tobacco Use Types Packs/Day Years [...] Priority Date/Time Associated Diagnosis Comme nts XR TOE LEFT 2 OR 07/27/2015 14:47 Results for this MORE VIEWS EDT procedure are i n the results section. documented in this encounter Results XR TOE LEFT 2 OR MORE VIEWS (07/27/2015 14:47 EDT) Specimen Narrative [facility] - 07/27/2015 14:51 EDT ? EXAM: RADIOLOGY/TOE(S)-LEFT ? EX. D/ (1444) ? CLINICAL INFORMATION: ? L97.529 - GREAT TOE, R/O OSTEO. D ONE AT [facility] ? Exam: Left toe x-ray. ? Indication: L97.529 - GREAT TOE, R/O OSTEO. DONE AT [facility] L GREAT TOE INFECTION EVAL ? Comparison:03/23/2015. ? Findings: ?The left 1st toe i s well aligned. No focal destructive ? bone changes appreciated. No acut e fractures seen. The joint spaces ? appear preserved. ? Impression: ? No left great toe destructive bon e changes detected to suggest ? osteomyelitis. However, please no te that if clinical concern persists ? a bone scan or MRI can provide mo re sensitive assessment. ? REPORT SIGNED IN OTHER VENDOR SYSTEM 07/27/2015 ?Reported B y: Yan Aguillon MD ? CC: ? Transcribed Date/Time: 07/27/2015 (1451) ? Industrial Staff Nurse: ? Printed Date/Time: 10/10/2018 (11 19) ? PAGE 1 ? Haylee d Report ? Procedure Note Yan Aguillon MD - 03/05/2019 EXAM: RADIOLOGY/TOE(S)-LEFT EX. D/T: (1444) CLINICAL INFORMATION: L97.529 - GREAT TOE, R/O OSTEO. [facility] AT [facility] Exam: Left toe x-ray. Indication: L97.529 - GREAT TOE, R/O OS ANGELIQUE. DONE AT [facility] L GREAT TOE INFECTION EVAL Comparison:03/23/2015. Findings: The left 1st toe is well alig ruth. No focal destructive bone changes appreciated. No acute frac tures seen. The joint spaces appear preserved. Impression: No left great toe destructive bone borges ges detected to suggest osteomyelitis. However, please note nito t if clinical concern persists a bone scan or MRI can provide more sen sitive assessment. REPORT SIGNED IN OTHER VENDOR SYSTEM 07/27/2015 Reported By: Yan Aguillon MD CC: Transcribed Date/Time: 07/27/2015 (6204 ) Industrial Staff Nurse: Printed Date/Time: 10/10/2018 (4245) PAGE 1 Signed Report Performing Organization Address City/State/ZIP Code Phon e Number [facility] documented in this encounter Visit Diagnoses Not on filedocumented in this encounter Care Teams Business Area Director Relationship Specialty Start Date End Date Unknown, Provider, PCP - General 02/26/14 06/26/17 documented as of this encounter
--- OUTSIDE RECORDS SUMMARY | 2022-02-03 16:06 | XMS_ITS | Encounter Summary ---
:1980 Author Organization [facility] Address [address] [place] [address] Care Team Providers Name Role Phone Unavailable Primary Care Provider Unavailable Encounter Details Date Type Department Care Team Description 02/10/2005 Results Only [facility] - Savannah Egan od, MITZI [address] [place] [phone] (Wo rk) Social History Tobacco Use Types [...] Procedure Name Priority Date/Time Associated Comments Diagnosis HPV DETECTION, HIGH Routine 02/10/2005 15:00 Resu lts for this RISK TYPES EDT procedure are i n the results section. CYTOPATHOLOGY Routine 02/10/2005 0:00 Results for this EDT procedure are i n the results section. documented in this encounter Results HUMAN PAPILLOMA VIRUS DNA TEST (02/10/2005 15:00 EDT) Specimen Description Cervix, ThinPrep [facility] vial LAB Result Positive for one or more of HPV types 16,18,31,33,35,39,45,51,52,56,58,59, or 68. These ME[facility] EM high/intermediate risk HPV t ypes are associated with dysplasia and some cervical cancers. LAB Report Status Final [facility] [id number] LAB Specimen Performing Organization Address City/State/ZIP Code Phon e Number [facility] [address] [place] [address] SERVICES [facility] [address] [place] [address] CYTOPATHOLOGY (02/10/2005 0:00 EDT) Pathology Report: CYTOPATHOLOGY REPORT MEHUL AREVALO Reports generated via electronic interface contain kat ginal data; however they are lacking the format of the original re port. Caution should be taken when reading/interpreting unfo rmatted reports. Name: ? MARKEL LINDSAY A ? Accession #: ? [id number] : ? 1980 (Age: 24) ??F ?Collect Date: ? 01/28 Location: ? [facility] ? Receive Date : ? 02/14/2005 Provider: ?SAVANNAH ROD [facility] Copy to: ? Specimen/Source: ? ThinPrep Pap Test, Cervix/Endocervix, processed on [employer] ThinPrep Imaging System, with manual evaluation Last Menstrual Period: ? 01/30/05 Other: ? HPVDX - HPV testing requested regardless of diag nosis on current ThinPrep Pap test. ? SPECIMEN ADEQUACY ? Satisfactory for Evaluation - transformation zone component present GENERAL CATEGORIZATION ? Epithelial Cell Abnormality INTERPRETATION ? Squamous Cell Abnormality - Atypical squamous c ells, undetermined significance. Shift in pasha present suggestive of bacterial vaginos is. EDUCATIONAL NOTES/RECOMMENDATIONS ? [facility] recommends lolita wing the 2001 Consensus Guidelines for the Management of Women with Cervical Cytological Abnormalities (JAM A,2002;287:2120-9). Management algorithms have b een distributed by [facility] and are available online at www.[email or web address]. ? Document reviewed and electronically signed by: ? SUKUMAR MURILLO MD ? Report Date: ??02/22/2005 16:00 End of Report Specimen Performing Organization Address City/State/ZIP Code Phon e Number [facility] [address] [place] [address] SERVICES [facility] [address] [place] [address] documented in this encounter Visit Diagnoses Not on filedocumented in this encounter
--- OUTSIDE RECORDS SUMMARY | 2022-02-03 16:06 | XMS_ITS | Encounter Summary ---
:1980 Author Organization [facility] Address [address] [place] [address] Care Team Providers Name Role Phone SalShruthi Stewart PATEL Primary Care Provider Unknown, Provider Primary Care Provider Ratna Olivas MD Primary Care Provider Encounter Details Date Type Department Care Team Description 10/30/2013 Historical Results [facility] - Campos Stevens, Only [facility] [place] [id number] [place] [address] [id number] (Wo rk) Social History Tobacco Use Types [...] Procedure Name Priority Date/Time Associated Diagnosis Comme [facility] SURGICAL PATHOLOGY Routine 10/30/2013 Results f or this procedure are i n the results section . documented in this encounter Results SURGICAL PATHOLOGY (10/30/2013) Specimen Narrative [facility] - 014 13:26 EDT Name: LINDSAY JEAN BAPTISTE ?: [birth year] ?Age/Sex: 38/F ?Unit#: [id number] ? Loc: ORTHOPODI ?? Status: REG POV ?? Reg Date: 10/30/13 ? Pt.Phone Number : ? Specimen: [id number] ? STA TUS: SOUT ?Spec Date:10/30/13 ? Physician Copies: ?Jean Marie Stevens Tissues: A ?? Skin, other than cyst (RIG HT GREAT TOE) ?Shruthi Huang SURFBOARD MAKER CPT: 18924 ?? Units: ??1 ?FINAL DIAGNOSIS ? Skin of toe, right great, punch b iopsy; ? - Epidermal ulceration with react robert vascular changes and sparse inflammation. ? SEE COMMENT. ? REFERENCE [facility] REPORT [id number] ?COMMENT ? The [facility] reports comments that there ar e no definitive features of vasculitis. The ulceration is associated with mild nonspecific inflammation without a significant eosinophilic or neutrophili c component. ??An infectious etiology is a consideration. ??However, it is noted that cultures were performed and should be interpreted in the context of the ph ysical examination and histopathologic findings. ??Features of a specific unde rlying dermatitis are not evident in the biopsy. ??However, the majority of the epidermis is ulcerated thus precluding identification of an underlying dermati tis. ??Please reference the separate [facility] report for full details ([facility], [id number]). ? GROSS DESCRIPTION ? Received in formalin labeled with the patient's name is a givens tissue fragment ? measuring 0.3 x 0.3 x 0.2 cm, e.s . 1. ??CP ?? PREOP DX/CLINICAL HISTORY ?Chronic rash and wound do rsal right great toe. 3 mm punch biopsy Signed ____(signature on file)____ Jaimee Easton M.D. 11/05/13 By the signature above, the attending ysician certifies that he/she has personally conducted a gross and/or microscopic exa mination of the described specimens and rendered or confirmed the above diagnosi s. Test Performed by [facility], [address] [place] [address] Undergraduate Advisor: Jaimee Silvestre MD PHD Performing Organization Address City/State/ZIP Code Phon e Number [facility] [address] [place] [address] [facility] documented in this encounter Visit Diagnoses Not on filedocumented in this encounter Care Teams Textile Worker Relationship Specialty Start Date End Date Shruthi Huang APRN PCP - General 02/08/12 02/25/[address] [facility] [address] [place], [place] [id number] Unknown, MD Rambo PCP - General 02/26/14 06/26/17 Ratna Olivas MD PCP - General 03/05/[address] [phone] documented as of this encounter
--- OUTSIDE RECORDS SUMMARY | 2022-02-03 16:06 | XMS_ITS | Encounter Summary ---
:1980 Author Organization [facility] Address [address] [place] [address] Care Team Providers Name Role Phone Unknown, Provider Primary Care Provider Encounter Details Date Type Department Care Team Description 06/26/2016 Hospital Encounter [facility] - Unknown, Jessica howell [facility] [phone] [address] [facility] (Work) [place] [address] Social History Tobacco Use Types Packs/Day Years [...] on file documented as of this encounter Discharge Disposition Disposition Code Departure Means Destination Home or Self Skilled Nursing documented in this encounter Plan of Treatment Not on filedocumented as of this encounter Visit Diagnoses Not on filedocumented in this encounter Care Teams Coil Shaper Relationship Specialty Start Date End Date Unknown, Provider, PCP - General 02/26/14 06/26/17 documented as of this encounter
--- OUTSIDE RECORDS SUMMARY | 2022-02-03 16:06 | XMS_ITS | Encounter Summary ---
:1980 Author Organization [facility] Address [address] [place] [address] Care Team Providers Name Role Phone Unavailable Primary Care Provider Unavailable Encounter Details Date Type Department Care Team Description 02/13/2002 Results Only [facility] - Carlee Helms CNM [facility] [address] [place] [id number] Social History Tobacco Use Types Packs/Day Years [...] Name Priority Date/Time Associated Diagnosis Comme nts CYTOPATHOLOGY Routine 02/13/2002 0:00 EDT Results for this procedure are i n the results section . documented in this encounter Results CYTOPATHOLOGY (02/13/2002 0:00 EDT) Pathology Report: CYTOPATHOLOGY REPORT [facility] Reports generated via electronic interface contain kat ginal data; however they are lacking the format of the original re port. Caution should be taken when reading/interpreting unfo rmatted reports. Name: ? LINDSAY JEAN BAPTISTE ? Accession #: ? [id number] : ? 1980 (Age: 21) ??F ?Collect Date: ? 01/28 Location: ? [facility] ? Receive Date : ? 02/17/2002 Provider: ?CARLEE FULTON CNM Copy to: ? Specimen/Source: ?ThinPrep Pap Test, Cervix/ Endocervix Last Menstrual Period: ? 12/08/01 Menstrual/ Status: ? SPECIMEN ADEQUACY ? Satisfactory for Evaluation - transformation zone component present GENERAL CATEGORIZATION ? Negative for Intraepithelial Lesion or Malignan cy ? Document reviewed and electronically signed by: ? BEAU Connor(ASCP) ? Report Date: ??02/19/2002 12:52 End of Report Specimen Performing Organization Address City/State/ZIP Code Phon e Number [facility] [address] [place] [address] [facility] [address] [place] [address] documented in this encounter Visit Diagnoses Not on filedocumented in this encounter
--- OUTSIDE RECORDS SUMMARY | 2022-02-03 16:06 | XMS_ITS | Encounter Summary ---
:1980 Author Organization [facility] Address [address] [place] [address] Care Team Providers Name Role Phone Unknown, Provider Primary Care Provider Encounter Details Date Type Department Care Team Description 06/24/2016 Historical Results [facility] - Arnold Waters MD Only [facility] Radiology Resul ts 130 [facility] [address] [place] [address] [phone] Social History Tobacco Use Types Packs/Day Years [...] Procedure Name Priority Date/Time Associated Comments Diagnosis LACTIC ACID SEPSIS Routine 06/24/2016 23:59 Resul ts for this REFLEX - [facility] EST procedure are in the results section. XR CHEST 1 VIEW 06/24/2016 22:43 Results for this EST procedure are i n the results section. BLOOD CULTURE - [facility] Routine 06/24/2016 22:16 Res ults for this EST procedure are i n the results section. COMPLETE BLOOD COUNT Routine 06/24/2016 22:16 Res ults for this AND DIFFERENTIAL EST procedure a re in the results section. C REACTIVE PROTEIN Routine 06/24/2016 22:16 Resul ts for this EST procedure are i n the results section. COMPREHENSIVE Routine 06/24/2016 22:16 Results fo r this METABOLIC PANEL (CMP) EST proced ure are in the results section. C REACTIVE PROTEIN Routine 06/24/2016 2:43 Result s for this EST procedure are i n the results section. COMPREHENSIVE Routine 06/24/2016 2:43 Results for this METABOLIC PANEL (CMP) EST proced ure are in the results section. ROUTINE CULTURE - [facility] Routine 06/24/2016 2:31 Re sults for this EST procedure are i n the results section. BLOOD CULTURE - [facility] Routine 06/24/2016 2:30 Resu lts for this EST procedure are i n the results section. XR ANKLE RIGHT 3 OR 06/24/2016 2:13 Resul ts for this MORE VIEWS EST procedure are i n the results section. XR FOOT RIGHT 3 OR 06/24/2016 2:11 Result s for this MORE VIEWS EST procedure are i n the results section. documented in this encounter Results LACTIC ACID SEPSIS REFLEX - [facility] (06/24/2016 23:59 EST) Pathologist Sig nature LACTIC ACID - [facility] 0.8 0.4 - 2.0 mmol/L [facility] Specimen Narrative [facility] - 017 0:28 EST Does PT Have a Latex Allergy? NO Performing Organization Address City/State/ZIP Code Phon e Number [facility] [address] LAB XR CHEST 1 VIEW (06/24/2016 22:43 EST) Specimen Narrative [facility] - 06/24/2016 22:43 EST ? EXAM: RADIOLOGY/CHEST- SINGLE VIEW ?EX. D/ (2229) ? CLINICAL INFORMATION: ? LINE PLACEMENT ? EXAM: ? XR Chest, 1 View. ? CLINICAL HISTORY: ? 35 years old, female; Device p lacement; Other vascular access ? device placement or adjustment; O ther: Central line; Additional ? info: Line placement ? TECHNIQUE: ? Frontal view of the chest. ? COMPARISON: ? No relevant prior studies avai lable. ? FINDINGS: ? Right internal jugular central venous catheter is noted with ? tip in the superior vena cava. ?? There is no pneumothorax. ??The ? lungs are clear. ??There is no pl eural effusion. ??The heart size ? and pulmonary vascularity are nor mal. ??Incidental note is made ? of some sclerosis involving the l eft humeral head which may ? represent an enchondroma. ? IMPRESSION: ? Right internal jugular central ly venous catheter with tip in ? the superior vena cava. ? The lungs are clear. ? REPORT SIGNED IN OTHER VENDOR SYSTEM 06/24/2016 ?Reported B y: Alex Dugan MD ? CC: ? Transcribed Date/Time: 06/24/2016 (2243) ? Pulling Unit Floorhand: ? Printed Date/Time: 10/12/2018 (12 23) ? PAGE 1 ? Haylee d Report ? Procedure Note Alex Dugan MD - 03/05/2019 EXAM: RADIOLOGY/CHEST- SINGLE VIEW EX. D/ (2229) CLINICAL INFORMATION: LINE PLACEMENT EXAM: XR Chest, 1 View. CLINICAL HISTORY: 35 years old, female; Device placement; Other vascular access device placement or adjustment; Other: Central line; Additional info: Line placement TECHNIQUE: Frontal view of the chest. COMPARISON: No relevant prior studies available. FINDINGS: Right internal jugular central venous c atheter is noted with tip in the superior vena cava. There is no pneumothorax. The lungs are clear. There is no pleural ef fusion. The heart size and pulmonary vascularity are normal. I ncidental note is made of some sclerosis involving the left hu meral head which may represent an enchondroma. IMPRESSION: Right internal jugular centrally venous catheter with tip in the superior vena cava. The lungs are clear. REPORT SIGNED IN OTHER VENDOR SYSTEM 06/24/2016 Reported By: Alex Dugan MD CC: Transcribed Date/Time: 06/24/2016 (4407 ) Pulling Unit Floorhand: Printed Date/Time: 10/12/2018 (7486) PAGE 1 Signed Report Performing Organization Address City/[facility]/ZIP Code Phon e Number [facility] BLOOD CULTURE - [facility] (06/24/2016 22:16 EST) Pathologist Sig nature BLOOD CULTURE - [facility] BLOOD CULTURE - NO GROWTH AT 5 [facility] Specimen Narrative [facility] - 017 7:18 EST Does PT Have a Latex Allergy? NO Specimen description #2 CENTRAL Performing Organization Address City/[facility]/ZIP Code Phon e Number [facility] [address] LAB (ABNORMAL) C REACTIVE PROTEIN (06/24/2016 22:16 EST) Pathologist [facility] C-Reactive Protein 343 (H) 0.0 - 3.0 mg/L [facility] Specimen Narrative [facility] - 017 22:48 EST Does PT Have a Latex Allergy? NO Performing Organization Address City/[facility]/ZIP Code Phon e Number [facility] [address] LAB (ABNORMAL) COMPREHENSIVE METABOLIC PANEL (CMP) (06/24/2016 22:16 EST) ALBUMIN - [facility] 2.5 (L) 3.4 - 5.0 [facility] g/dL [facility] ALKALINE 172 (H) 41 - 126 U/L [facility]ASE [facility] BILIRUBIN TOTAL 0.4 0.0 - 1.0 [facility] mg/dL [facility] BUN - [facility] 15 7 - 18 mg/dL [facility] CALCIUM - [facility] 8.3 (L) 8.5 - 10.1 [facility] mg/dL [facility] Chloride 104 98 - 107 [facility] mEq/L [facility] CO2 Total 26 21 - 32 mEq/L [facility] CREATININE 0.92 0.5 - 1.3 [facility] mg/dL [facility] eGFR >60 [facility] Comment: [facility] Chronic renal impairment is defined as GFR <60 Multiply result by 1.210 for patients . eGFR calculated using the IDMS-traceable MDRD Study Equation. ??(effective 03/02/2014) Anion Gap 8 5 - 15 [facility] GLUCOSE - [facility] 93 70 - [address] [facility] mg/dL [facility] Potassium 3.5 3.5 - 5.0 [facility] mEq/L [facility] Sodium 138 135 - [address] [facility] mEq/L [facility] TOTAL PROTEIN - 7.6 6.4 - 8.2 [facility] gm/dl [facility] SGOT/AST - [facility] 58 (H) 10 - 37 U/L [facility] SGPT/ALT - [facility] 36 12 - 78 U/L [facility] Specimen Narrative [facility] - 017 22:48 EST Does PT Have a Latex Allergy? NO Performing Organization Address City/State/ZIP Code Phon e Number [facility] [address] LAB (ABNORMAL) COMPLETE BLOOD COUNT AND DIFFERENTIAL (06/24/2016 22:16 EST) ABSOLUTE NEUTROPHIL 30.69 (H) 1.8 - 7.8 [facility] COUN - [facility] 10e3/ul [facility] BANDS - [facility] 1 0 - 3 % [facility] EOS # - [facility] 0.66 (H) 0.05 - 0.5 [facility] 10e3/uL [facility] [place] [facility] EOSINOPHILS - [facility] 2 0 - 5 % [facility] HEMATOCRIT - [facility] 22.6 (L) 34.0 - 47.0 % [facility] HEMOGLOBIN - [facility] 7.1 (L) 11.2 - 15.7 [facility] g/dl [facility] LYMPH # - [facility] 0.66 (L) 0.9 - 2.9 [facility] 10e3/uL [facility] LYMPHOCYTES - [facility] 2 (L) 20 - 40 % [facility] MEAN CORPUSCULAR 24.1 (L) 26 - [address] [facility] HGB - [facility] LAB MEAN CORPUSCULAR 31.4 31 - 36 g/dL [facility] HGB CONC - [facility] LAB MEAN CELL VOLUME - 76.9 (L) 77 - 100 fl [facility] MONO # - [facility] 0.99 (H) 0.3 - 0.9 [facility] 10e3/uL [facility] MONOCYTE - [facility] 3 0 - 12 % [facility] PLATELET COUNT 333 150 - [address] [facility] 10e3/ul [facility] NEUTROPHILS - [facility] 92 (H) 40 - 80 % [facility] RED BLOOD COUNT - 2.94 (L) 3.8 - 5.2 [facility] 10e6/ul [facility] RED CELL DISTRI 19.1 (H) 11.8 - 15.6 % [facility] WIDTH - [facility] LAB WHITE BLOOD COUNT - 33.0 (HH) 3.5 - 10.5 [facility] Comment: 10e3/ul [facility] Result called to DANE GUNTER/ELIZABETH 06/24/162239 Result called by RAULITO 06/24/162239: ??Amended Report ??WBC previously reported as: 33.0 *H 10e3/ul ??Reason: CALLED Specimen Narrative [facility] - 017 22:51 EST Does PT Have a Latex Allergy? NO Performing Organization Address City/[facility] Code Phon e Number [facility] [address] LAB (ABNORMAL) C REACTIVE PROTEIN (06/24/2016 2:43 EST) Pathologist Sig nature C-Reactive Protein 358 (H) 0.0 - 3.0 mg/L [facility] Specimen Narrative [facility] - 017 3:12 EST Does PT Have a Latex Allergy? NO Performing Organization Address City/[facility] Code Phon e Number [facility] [address] LAB (ABNORMAL) COMPREHENSIVE METABOLIC PANEL (CMP) (06/24/2016 2:43 EST) ALBUMIN - [facility] 3.0 (L) 3.4 - 5.0 [facility] g/dL [facility] ALKALINE 159 (H) 41 - 126 U/L [facility] PHOSPHATASE - [facility] LAB BILIRUBIN TOTAL 0.5 0.0 - 1.0 [facility] mg/dL [facility] BUN - [facility] 9 7 - 18 mg/dL [facility] CALCIUM - [facility] 8.8 8.5 - 10.1 [facility] mg/dL [facility] Chloride 106 98 - 107 [facility] mEq/L [facility] CO2 Total 21 21 - 32 mEq/L [facility] CREATININE 0.97 0.5 - 1.3 [facility] mg/dL [facility] eGFR >60 [facility] Comment: [facility] Chronic renal impairment is defined as GFR <60 Multiply result by 1.210 for patients . eGFR calculated using the IDMS-traceable MDRD Study Equation. ??(effective 03/02/2014) Anion Gap 11 5 - 15 [facility] GLUCOSE - [facility] 72 70 - 100 [facility] mg/dL [facility] Potassium 3.6 3.5 - 5.0 [facility] mEq/L [facility] Sodium 138 135 - 145 [facility] mEq/L [facility] TOTAL PROTEIN - 8.6 (H) 6.4 - 8.2 [facility] gm/dl [facility] SGOT/AST - [facility] 32 10 - 37 U/L [facility] SGPT/ALT - [facility] 26 12 - 78 U/L [facility] Specimen Narrative [facility] - 017 3:12 EST Does PT Have a Latex Allergy? NO Performing Organization Address City/State/ZIP Code Phon e Number [facility] [address] [place] [address] [facility] ROUTINE CULTURE - [facility] (06/24/2016 2:31 EST) Pathologist [facility] Culture The mecA gene product was NOT detected in this c oagulase [facility] positive Staph isolate. It is SUSCEPTIBLE to oxacillin , [facility] cephalosporins and other beta lactam antibiotics. STAPHYLOCOCCUS SP STAPHYLOCOCCUS SP [facility] COAG POSITIVE - [facility] COAG POS [facility] QUANT - [facility] MODERATE [facility] Specimen Narrative [facility] - 7:18 EST Does PT Have a Latex Allergy? NO Swab Source/Specimen Description: Ulcera tion right lower leg Organism Antibiotic Method Susceptibility Staphylococcus sp coag Azithromycin GRAM POSITIVE Susceptib le pos SUSCEPTIBILITY - [facility] Staphylococcus sp coag Clindamycin GRAM POSITIVE <=0.25: S usceptible pos SUSCEPTIBILITY - [facility] Staphylococcus sp coag Cefpodoxime GRAM POSITIVE Susceptib le pos SUSCEPTIBILITY - [facility] Staphylococcus sp coag Cefazolin GRAM POSITIVE Susceptib le pos SUSCEPTIBILITY - [facility] Staphylococcus sp coag Erythromycin GRAM POSITIVE <=0.25: S usceptible pos SUSCEPTIBILITY - [facility] Staphylococcus sp coag Levofloxacin GRAM POSITIVE 0.25: Concepcion ceptible pos SUSCEPTIBILITY - [facility] Staphylococcus sp coag Oxacillin GRAM POSITIVE 0.5: Susc eptible pos SUSCEPTIBILITY - [facility] Staphylococcus sp coag Penicillin GRAM POSITIVE >=0.5: Re sistant pos SUSCEPTIBILITY - [facility] Staphylococcus sp coag Trimethoprim-Sulfame GRAM POSITIVE <=10 : Susceptible pos thoxazole SUSCEPTIBILITY - [facility] Staphylococcus sp coag Tetracycline GRAM POSITIVE <=1: Susc eptible pos SUSCEPTIBILITY - [facility] Staphylococcus sp coag Vancomycin GRAM POSITIVE <=0.5: Bryant sceptible pos SUSCEPTIBILITY - [facility] Comment: See Reason(s) for Study Performing Organization Address City/State/ZIP Code Phon e Number [facility] [address] LAB BLOOD CULTURE - [facility] (06/24/2016 2:30 EST) [facility] Signature BLOOD CULTURE - [facility] POSITIVE BLOOD CULTURE GRAM STAIN RESULT:GP C [facility] CALLED TO:[place] ER [facility] 06/24/16 6435 The mecA gene product was NOT detected in this coagula se positive Staph isolate. It is SUSCEPTIBLE to oxacillin , cephalosporins and other beta lactam antibiotics. BLOOD CULTURE - [facility] GROWTH DETECTED AT [facility] T LESS THAN 24 HOURS [facility] BLOOD CULTURE - [facility] GROWTH IN PEDI BOTTLE [facility] LAB STAPHYLOCOCCUS SP STAPHYLOCOCCUS SP [facility] COAG POSITIVE - [facility] COAG POS [facility] Specimen Narrative [facility] - 02/27/2 017 7:17 EST Does PT Have a Latex Allergy? NO Organism Antibiotic Method Susceptibility Staphylococcus sp coag Azithromycin GRAM POSITIVE Susceptib le pos SUSCEPTIBILITY - [facility] Staphylococcus sp coag Clindamycin GRAM POSITIVE <=0.25: S usceptible pos SUSCEPTIBILITY - [facility] Staphylococcus sp coag Cefpodoxime GRAM POSITIVE Susceptib le pos SUSCEPTIBILITY - [facility] Staphylococcus sp coag Cefazolin GRAM POSITIVE Susceptib le pos SUSCEPTIBILITY - [facility] Staphylococcus sp coag Erythromycin GRAM POSITIVE <=0.25: S usceptible pos SUSCEPTIBILITY - [facility] Staphylococcus sp coag Levofloxacin GRAM POSITIVE 0.25: Concepcion ceptible pos SUSCEPTIBILITY - [facility] Staphylococcus sp coag Oxacillin GRAM POSITIVE 0.5: Susc eptible pos SUSCEPTIBILITY - [facility] Staphylococcus sp coag Penicillin GRAM POSITIVE >=0.5: Re sistant pos SUSCEPTIBILITY - [facility] Staphylococcus sp coag Trimethoprim-Sulfame GRAM POSITIVE <=10 : Susceptible pos thoxazole SUSCEPTIBILITY - [facility] Staphylococcus sp coag Tetracycline GRAM POSITIVE <=1: Susc eptible pos SUSCEPTIBILITY - [facility] Staphylococcus sp coag Vancomycin GRAM POSITIVE <=0.5: Bryant sceptible pos SUSCEPTIBILITY - [facility] Comment: See Reason(s) for Study Performing Organization Address City/State/ZIP Code Phon e Number [facility] [address] LAB XR ANKLE RIGHT 3 OR MORE VIEWS (06/24/2016 2:13 EST) Specimen Narrative [facility] - 06/24/2016 2:13 EST ? EXAM: RADIOLOGY/ANKLE RIGHT 3 + VIEW ?EX. D/ (0206) ? CLINICAL INFORMATION: ? PAIN AND SWELLING 1 WEEK AFTER TR AUMA ? EXAM: ? XR Right Ankle Complete, 3 or More Views. ? CLINICAL HISTORY: ? 35 years old, female; Injury o r trauma; Fall; Initial ? encounter; Blunt trauma; Ankle; R ight; Additional info: Pain and ? swelling 1 week after trauma ? TECHNIQUE: ? Frontal, lateral and oblique v iews of the right ankle. ? COMPARISON: ? CR - [id number]-4+VIEW 06/24/19 17 1:58:51 AM ? FINDINGS: ? There is some soft tissue swel ling about the hindfoot. ??No ? fractures are identified. ??The a nkle mortise is intact. ??There ? is no joint effusion. ??The talar dome and subtalar joint are ? normal. ? IMPRESSION: ? Soft tissue swelling noted abo ut the hindfoot. ? No evidence of fracture. ? REPORT SIGNED IN OTHER VENDOR SYSTEM 06/24/2016 ?Reported B y: Alex Dugan MD ? CC: ? Transcribed Date/Time: 06/24/2016 (0213) ? Pulling Unit Floorhand: ? Printed Date/Time: 10/12/2018 (12 23) ? PAGE 1 ? Haylee d Report ? Procedure Note Alex Dugan MD - 03/05/2019 EXAM: RADIOLOGY/ANKLE RIGHT 3 + VIEW EX . D/ (0206) CLINICAL INFORMATION: PAIN AND SWELLING 1 WEEK AFTER TRAUMA EXAM: XR Right Ankle Complete, 3 or More View s. CLINICAL HISTORY: 35 years old, female; Injury or trauma; Fall; Initial encounter; Blunt trauma; Ankle; Right; Additional info: Pain and swelling 1 week after trauma TECHNIQUE: Frontal, lateral and oblique views of t he right ankle. COMPARISON: CR - [id number]-1+VIEW 06/24/2016 1:58:5 1 AM FINDINGS: There is some soft tissue swelling abou t the hindfoot. No fractures are identified. The ankle mor tise is intact. There is no joint effusion. The talar dome an d subtalar joint are normal. IMPRESSION: Soft tissue swelling noted about the hi ndfoot. No evidence of fracture. REPORT SIGNED IN OTHER VENDOR SYSTEM 06/24/2016 Reported By: Alex Dugan MD CC: Transcribed Date/Time: 06/24/2016 (0213 ) Pulling Unit Floorhand: Printed Date/Time: 10/12/2018 (3128) PAGE 1 Signed Report Performing Organization Address City/State/ZIP Code Phon e Number [facility] XR FOOT RIGHT 3 OR MORE VIEWS (06/24/2016 2:11 EST) Specimen Narrative [facility] - 06/24/2016 2:11 EST ? EXAM: RADIOLOGY/FOOT RIGHT 3+VIEW ? EX. D/ (0206) ? CLINICAL INFORMATION: ? PAIN AND SWELLING 1 WEEK AFTER TR AUMA ? EXAM: ? XR Right Foot Complete, 3 or M ore Views. ? CLINICAL HISTORY: ? 35 years old, female; Injury o r trauma; Fall; Initial ? encounter; Blunt trauma; Foot; Ri ght; Additional info: Pain and ? swelling 1 week after trauma ? TECHNIQUE: ? Frontal, lateral and oblique v iews of the right foot. ? COMPARISON: ? CR - ANKLE RIGHT-3 + VIEW 06/24 2:01:54 AM ? FINDINGS: ? There is soft tissue swelling about the dorsum of the foot. ? No fractures are identified. ??Th e joint spaces are ? well-maintained. ??There is no ac inge bony destruction. ? IMPRESSION: ? Soft tissue swelling of the do rsum of the foot. ? No evidence of fracture. ? REPORT SIGNED IN OTHER VENDOR SYSTEM 06/24/2016 ?Reported B y: Alex Dugan MD ? CC: ? Transcribed Date/Time: 06/24/2016 (021) ? Pulling Unit Floorhand: [employer] ? Printed Date/Time: 10/12/2018 (12 23) ? PAGE 1 ? Haylee d Report ? Procedure Note Alex Dugan MD - 03/05/2019 EXAM: RADIOLOGY/FOOT RIGHT 3+VIEW EX. D / (0206) CLINICAL INFORMATION: PAIN AND SWELLING 1 WEEK AFTER TRAUMA EXAM: XR Right Foot Complete, 3 or More Views . CLINICAL HISTORY: 35 years old, female; Injury or trauma; Fall; Initial encounter; Blunt trauma; Foot; Right; A dditional info: Pain and swelling 1 week after trauma TECHNIQUE: Frontal, lateral and oblique views of zakiya chaudhari right foot. COMPARISON: CR - ANKLE RIGHT-3 + VIEW 06/24/2016 2:0 1:54 AM FINDINGS: There is soft tissue swelling about the dorsum of the foot. No fractures are identified. The joint spaces are well-maintained. There is no acute bony destruction. IMPRESSION: Soft tissue swelling of the dorsum of t watson foot. No evidence of fracture. REPORT SIGNED IN OTHER VENDOR SYSTEM 06/24/2016 Reported By: Alex Dugan MD CC: Transcribed Date/Time: 06/24/2016 (021 ) Pulling Unit Floorhand: Printed Date/Time: 10/12/2018 (9408) PAGE 1 Signed Report Performing Organization Address City/State/ZIP Code Phon e Number [facility] documented in this encounter Visit Diagnoses Not on filedocumented in this encounter Care Teams Count Room Clerk Relationship Specialty Start Date End Date Unknown, Provider, PCP - General 02/26/14 06/26/17 documented as of this encounter
--- OUTSIDE RECORDS SUMMARY | 2022-02-03 16:06 | XMS_ITS | Encounter Summary ---
:1980 Author Organization [facility] Address [address] [place] [address] Care Team Providers Name Role Phone Shruthi Huang APRN Primary Care Provider Encounter Details Date Type Department Care Team Description 11/04/2013 Hospital Encounter [facility] - Jessica Dang [address] [address] Social History Tobacco Use Types Packs/Day Years [...] file documented as of this encounter Discharge Diagnoses Diagnosis 782.1 NONSPECIF SKIN ERUPT NEC[ICD-9-CM] 959.8 INJURY SOLID PROPELLANT PROCESSOR SITE/SITE NEC[ICD-9-CM] documented in this encounter Discharge Disposition Disposition Code Departure Means Destination Home or Self Care documented in this encounter Plan of Treatment Not on filedocumented as of this encounter Visit Diagnoses Not on filedocumented in this encounter Care Teams Collar Trimmer Relationship Specialty Start Date End Date Shruthi Huang APRN PCP - General 02/08/12 02/25/[address] - [place], [place] [address] documented as of this encounter
--- OUTSIDE RECORDS SUMMARY | 2022-02-03 16:06 | XMS_ITS | Encounter Summary ---
:1980 Author Organization [facility] Address [address] [place] [address] Care Team Providers Name Role Phone Unknown, Provider Primary Care Provider Encounter Details Date Type Department Care Team Description 11/17/2015 Hospital Encounter [facility] - Unknown, Jessica howell [facility] [phone] [address] [facility] (Work) [place] [address] Social History Tobacco Use Types Packs/Day Years [...] Discharge Disposition Disposition Code Departure Means Destination Auto Discharge Home documented in this encounter Plan of Treatment Not on filedocumented as of this encounter Visit Diagnoses Not on filedocumented in this encounter Care Teams Senior Business Manager Relationship Specialty Start Date End Date Unknown, Provider, PCP - General 02/26/14 06/26/17 documented as of this encounter
--- OUTSIDE RECORDS SUMMARY | 2022-02-03 16:06 | XMS_ITS | Encounter Summary ---
:[address] [facility] Address [address] [place] [address] Care Team Providers Name Role Phone Unknown, Provider Primary Care Provider Encounter Details Date Type Department Care Team Description 07/17/2014 Hospital Encounter [facility] - Unknown, Jessica howell [facility] [phone] [address] [facility] (Work) [place] [address] Social History Tobacco Use Types Packs/Day Years [...] Code Departure Means Destination Home or Self Long-Term documented in this encounter Plan of Treatment Not on filedocumented as of this encounter Visit Diagnoses Not on filedocumented in this encounter Care Teams Building Maintenance Supervisor Relationship Specialty Start Date End Date Unknown, Provider, PCP - General 02/26/14 06/26/17 documented as of this encounter
--- OUTSIDE RECORDS SUMMARY | 2022-02-03 16:06 | XMS_ITS | Encounter Summary ---
:1980 Author Organization [facility] Address [address] [place] [address] Care Team Providers Name Role Phone Unknown, Provider Primary Care Provider Encounter Details Date Type Department Care Team Description 03/23/2015 Historical Results Only [facility] - Anti, Joya patricio [facility] Radiology Resul ts SEEMA Linda [address] [phone] [place] [address] Social History Tobacco Use Types Packs/Day Years [...] Comme nts XR TOE LEFT 2 OR 03/23/2015 17:57 Results for this MORE VIEWS EST procedure are i n the results section. documented in this encounter Results XR TOE LEFT 2 OR MORE VIEWS (03/23/2015 17:57 EST) Specimen Narrative [facility] RAD[facility] - 03/24/2015 8:51 EST ? EXAM: RADIOLOGY/TOE(S)-LEFT ? EX. D/ (1621) ? CLINICAL INFORMATION: ? S91.109D NON-HEALING OPEN WOUND O F TOE, SUBSEQUENT ? ENCOUNTER, R/O OSTEOMYELITIS. ? TOE(S)-LEFT ? Signs and Symptoms/Comments: Nonh ealing open wound left great toe, ? subsequent encounter ? Comparison: 10/05/14, MR 08/19/14 ? Findings: ? AP, oblique, and lateral views of left great toe were obtained. ? There is no radiographic evidence of osteomyelitis. No fractures are ? identified. Bony mineralization i s age appropriate. There is mild ? degenerative change of the interp halangeal joint of the great toe. ? There is minimal degenerative imer nge seen at the 1st MTP joint. Bony ? alignment is otherwise normal. No soft tissue defect is identified. ? Impression: ? No acute abnormality. The skin de fect identified. No evidence of ? osteomyelitis. ? REPORT SIGNED IN OTHER VENDOR SYSTEM 03/24/2015 ?Reported B y: Maldonado Grijalva MD ? CC: ? Transcribed Date/Time: 03/24/2015 (0851) ? Senior Quality Assurance Analyst: ? Printed Date/Time: 10/09/2018 (10 20) ? PAGE 1 ? Haylee d Report ? Procedure Note Maldonado Grijalva MD - 03/05/2019 EXAM: RADIOLOGY/TOE(S)-LEFT EX. D/T: (1621) CLINICAL INFORMATION: S91.109D NON-HEALING OPEN WOUND OF TOE, SUBSEQUENT ENCOUNTER, R/O OSTEOMYELITIS. TOE(S)-LEFT Signs and Symptoms/Comments: Nonhealing open wound left great toe, subsequent encounter Comparison: 10/05/14, MR 08/19/14 Findings: AP, oblique, and lateral views of left great toe were obtained. There is no radiographic evidence of os teomyelitis. No fractures are identified. Bony mineralization is age appropriate. There is mild degenerative change of the interphalang eal joint of the great toe. There is minimal degenerative change se en at the 1st MTP joint. Bony alignment is otherwise normal. No soft tissue defect is identified. Impression: No acute abnormality. The skin defect i dentified. No evidence of osteomyelitis. REPORT SIGNED IN OTHER VENDOR SYSTEM 03/24/2015 Reported By: Maldonado Grijalva MD CC: Transcribed Date/Time: 03/24/2015 (0851 ) Senior Quality Assurance Analyst: Printed Date/Time: 10/09/2018 (1026) PAGE 1 Signed Report Performing Organization Address City/State/ZIP Code Phon e Number [facility] RADIOLOGY documented in this encounter Visit Diagnoses Not on filedocumented in this encounter Care Teams Vending Route Servicer Relationship Specialty Start Date End Date Unknown, Provider, PCP - General 02/26/14 06/26/17 documented as of this encounter
--- OUTSIDE RECORDS SUMMARY | 2022-02-03 16:06 | XMS_ITS | Encounter Summary ---
:1980 Author Organization [facility] Address [address] [place] [address] Care Team Providers Name Role Phone Shruthi Huang APRN Primary Care Provider Encounter Details Date Type Department Care Team Description 10/29/2013 Hospital Encounter [facility] - Unknown, Provi dante, [facility] [phone] [place] [address] (Work) [place] [address] Social History Tobacco Use Types Packs/Day Years [...] on filedocumented in this encounter Care Teams Cyber Security Analyst Relationship Specialty Start Date End Date Shruthi Huang APRN PCP - General 02/08/12 02/25/14 [address] [facility] [address] - [place], [place] [phone] documented as of this encounter
--- OUTSIDE RECORDS SUMMARY | 2022-02-03 16:06 | XMS_ITS | Encounter Summary ---
:1980 Author Organization [facility] Address [address] [place] [address] Care Team Providers Name Role Phone Unavailable Primary Care Provider Unavailable Encounter Details Date Type Department Care Team Description 02/17/2011 Results Only [facility] Jaky Yi, Laboratory Services - [address] [address] [phone] Social History Tobacco Use Types Packs/Day Years [...] Name Priority Date/Time Associated Diagnosis Comme nts PAP TEST- RESULT Routine 02/17/2011 0:00 EDT Resu lts for this ONLY procedure are i n the results section. documented in this encounter Results PAP TEST- RESULT ONLY (02/17/2011 0:00 EDT) Pathology Report: CYTOPATHOLOGY REPORT [facility] Reports generated via electronic interface contain kat ginal data; however they are lacking the format of the original re port. Caution should be taken when reading/interpreting unfo rmatted reports. Name: ? LINDSAY JEAN BAPTISTE ? Accession #: ? [id number] : ? 1980 (Age: 30) ??F ?Collect Date: ? 01/29 Location: ? [facility] ? Receive Date : ? 02/21/2011 Provider: ?JAKY YI SUBSTATION MECHANIC Copy to: ? Specimen/Source: ? Pap Test, Vagina/Cervix/Endocervix, ThinPrep Imaging System with manual evaluation Last Menstrual Period: ? 11/12/10 Menstrual/ Status: ? Other: ? Additional clinical information: Per pt. Benign Pap Hx . ? SPECIMEN ADEQUACY ? Satisfactory for Evaluation - transformation zone component present GENERAL CATEGORIZATION ? Negative for Intraepithelial Lesion or Malignan cy ? Document reviewed and electronically signed by: ? BEAU Clark(ASCP) ? Report Date: ??03/01/2011 16:17 End of Report Specimen Performing Organization Address City/State/ZIP Code Phon e Number [facility] [address] [place] [address] SERVICES [facility] [address] [place] [address] documented in this encounter Visit Diagnoses Not on filedocumented in this encounter
--- OUTSIDE RECORDS SUMMARY | 2022-02-03 16:06 | XMS_ITS | Encounter Summary ---
:1980 Author Organization [facility] Address [address] [place] [address] Care Team Providers Name Role Phone Unavailable Primary Care Provider Unavailable Encounter Details Date Type Department Care Team Description 05/28/2000 Results Only [facility] - Juventino Boykin CNM conversion [address] [facility] [address] [place] [address] [place] [address] [phone] Social History Tobacco Use Types Packs/Day Years [...] Date/Time Associated Diagnosis Comme nts CYTOPATHOLOGY Routine 05/28/2000 0:00 EST Results for this procedure are i n the results section . documented in this encounter Results CYTOPATHOLOGY (05/28/2000 0:00 EST) Pathology Report: CYTOPATHOLOGY REPORT [facility] Reports generated via electronic interface contain kat ginal data; however they are lacking the format of the original re port. Caution should be taken when reading/interpreting unfo rmatted reports. Name: ? LINDSAY JEAN BAPTISTE ? Accession #: ? [id number] : ? 1980 (Age: 19) ??F ?Collect Date: ? 05/01 Location: ? [facility] ? Receive Date : ? 05/31/2000 Provider: ?JUVENTINO ROSARIOSKYE CNM Copy to: ? Specimen/Source: ?Conventional Pap Test, Cer vix/Endocervix Last Menstrual Period: ? 04/04/00 Menstrual/ Status: ? SPECIMEN ADEQUACY ? Satisfactory for evaluation but limited by obsc uring blood. Satisfactory for evaluation but limited by scant squamous epithelial component. GENERAL CATEGORIZATION ? Within Normal Limits ? Document reviewed and electronically signed by: ? BEAU Connor(ASCP) ? Report Date: ??06/01/2000 11:14 End of Report Specimen Performing Organization Address City/State/ZIP Code Phon e Number [facility] [address] [place] [address] SERVICES [facility] [address] [place] [address] documented in this encounter Visit Diagnoses Not on filedocumented in this encounter
--- OUTSIDE RECORDS SUMMARY | 2022-02-03 16:06 | XMS_ITS | Encounter Summary ---
:1980 Author Organization [facility] Address [address] [place] [address] Care Team Providers Name Role Phone Unavailable Primary Care Provider Unavailable Encounter Details Date Type Department Care Team Description 05/25/2006 Results Only [facility] - Koko Ross APRN conversion [address] [place] [address] [phone] Social History Tobacco Use Types Packs/Day Years [...] Date/Time Associated Diagnosis Comme nts CYTOPATHOLOGY Routine 05/25/2006 0:00 EST Results for this procedure are i n the results section . documented in this encounter Results CYTOPATHOLOGY (05/25/2006 0:00 EST) Pathology Report: CYTOPATHOLOGY REPORT [facility] Reports generated via electronic interface contain kat ginal data; however they are lacking the format of the original re port. Caution should be taken when reading/interpreting unfo rmatted reports. Name: ? LINDSAY JEAN BAPTISTE ? Accession #: ? [id number] : ? 1980 (Age: 25) ??F ?Collect Date: ? 05/01 Location: ? [facility] ? Receive Date: ? 05/30/2006 Provider: ?KOKO PAPPASFIELD GLASS CUTTER Copy to: ? Specimen/Source: ?ThinPrep Pap Test, E ndocervix, processed on First MetaPrep Imaging System, with manual evaluation Last Menstrual Period: ? 05/13/06 Hormonal/Contraceptive Status: ? Oral contraceptives Previous Gynecologic Pathology: ? Yes Other: ? HPVA - HPV testing requested if ASC-US on the current ThinPrep Pap test. ? SPECIMEN ADEQUACY ? Satisfactory for Evaluation - transformation zone component present GENERAL CATEGORIZATION ? Negative for Intraepithelial Lesion or Malignan cy ? Document reviewed and electronically signed by: ? EVANGELINA ZUNIGA MD ? Report Date: ??06/05/2006 18:05 End of Report Specimen Performing Organization Address City/State/ZIP Code Phon e Number [facility] [address] [place] [phone] SERVICES [facility] [address] [place] [address] documented in this encounter Visit Diagnoses Not on filedocumented in this encounter
--- OUTSIDE RECORDS SUMMARY | 2022-02-03 16:06 | XMS_ITS ---
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 Active of great toe of left foot with fat layer exposed ALLERGIES No Known Allergies ENCOUNTERS Encounter Location Date Diagnosis [facility] [address] [facility], [place] [address] [facility] [address] [facility], [place] [address] [facility] [address] [facility], [place] [address] [facility] [address] [place], [address] [facility] [address] [place] Feb, [address] [facility] [address] [facility], [place], [place] [address] left foot with f at layer exposed L97.522 [facility] [address] [facility], Feb, [place] [address] left foot with f at layer exposed L97.522 [facility] [address] [facility], [place] [address] [facility] [address] [facility], [place] [address] [facility] [address] [facility], [place] [address] [facility] [address] [place], [place] Jan, Donovan thema L53.9 ; Swelling [address] R60.9 and Chroni c ulcer of great toe of lef t foot with fat layer expose d L97.522 [facility] [address] [facility], [place], Swe lling R60.9 ; [place] [address] L53.9 and Chroni c ulcer of great toe of lef t foot with fat layer expose d L97.522 IMMUNIZATIONS No Known Immunizations SOCIAL HISTORY Never Assessed REASON FOR REFERRAL FUNCTIONAL STATUS PLAN OF CARE Activity Details Future Test NM Bone Scan 3-Phase (56814) 20200311 Future Test CULTURE ANAEROBIC 20200311 Future Test CULTURE WOUND 20200311 Future Test X Foot L 3V 20200311 Future Test CULTURE WOUND 20200223 Future Test X Foot L 3V 20200223 Future Test X Tibula/Fibula L 2V 20200130 6 Pending Test CBC WITH AUTO DIFF Pending Test COMPMET Pending Test CRP-INFLAM Pending Test SED RATE VITAL SIGNS MEDICATIONS Medication Instructions Dosage Frequency Start Date End Date Duration S tatus Bactrim DS Orally Twice a 1 tablet 12h Jan, 7 days Activ e 800-160 MG day 2019 PROCEDURES No Known procedures RESULTS Name Result Date Reference Range CULTURE ANAEROBIC 2020-03-11 RESULT 1 [id number] CULTURE WOUND 2020-03-11 CULTURE WOUND 2020-02-23 CULTURE WOUND 2020-02-23 SENSITIVITY ORGANISM 1 2020-02-23 Penicillin 0.06 Oxacillin <=0.25 Gentamicin <=0.5 Erythromycin 1 Clindamycin <=0.25 Quinupristin/Dalfopristin <=0.25 Linezolid 2 Vancomycin <=0.5 Tigecycline <=0.12 Rifampicin <=0.5 Trimethoprim/Sulfa <=10 X Foot L 3V 2020-02-23 See Below For Report X Tibula/Fibula L 2V 2020-02-23 See Below For Report REASON FOR VISIT [facility]-Follow Up, [facility]-Follow Up, [facility]-Follow Up, [facility]-Follow Up, R/S today's appt, [facility]-Follow Up pt rescheduled to 03-22-2020, Non- completed labs and x-ray, LABS, [facility]-Follow Up, MRI, Labs, [facility]-Follow Up, [facility]-Follow Up, med change?, Antibiotic, [facility]ound [facility]-NEW, [facility]ound [facility]-NEW, [facility]ound [facility]-NEW, [facility]ound [facility]-NEW Insurance Providers [facility] Member Patient Patient Patient Patient Patient Subscriber Subscriber Subscriber Group Insurance Plan Plan Plan Plan ID Relationship Address Phone Name Date of ID Name Date of No Type Insurance Insurance Insurance Coverage to Subscriber Address Phone Name Dates SELF PAY ANY STREET SELF PAY self ESTELA 1980 [address] [place] [id number] INSURANCE [facility] SELF PAY [address] STREET SELF PAY self ESTELA 1980 [address] [place] [id number] INSURANCE [facility] MEDICAID EDS MEDICAID self ESTELA [id number] [place] [facility] [place] [id number] MEDICARE 3000 [employer]FF[employer] MEDICARE self ESTELA 1980 3 [id number] [facility] [id number] S-MEDICAID EDS [id number] S-MEDICAID self ESTELA [id number] [place] [address] [address] [place] [address] [facility] [facility] [id number] MEDICAID EDS MEDICAID self ESTELA [id number] [address] [place] [address] [place] [facility] [place] [id number]
--- OUTSIDE RECORDS SUMMARY | 2022-02-03 16:06 | XMS_ITS | Encounter Summary ---
:1980 Author Organization [facility] Address [address] [place] [address] Care Team Providers Name Role Phone Unavailable Primary Care Provider Unavailable Encounter Details Date Type Department Care Team Description 05/25/2006 Hospital Encounter [facility] - Bernie Handy, Other BUSINESS PROCESS ARCHITECT [id number] [place] [address] Social History Tobacco Use Types Packs/Day Years [...] Date/Time Associated Diagnosis Comme nts CYTOPATHOLOGY Routine 01/14/2009 0:00 EDT Results for this procedure are i n the results section . CYTOPATHOLOGY Routine 12/24/2007 0:00 EDT Results for this procedure are i n the results section . documented in this encounter Results CYTOPATHOLOGY (01/14/2009 0:00 EDT) Pathology Report: CYTOPATHOLOGY REPORT ? [facility] ? LAB Reports generated via electr onic interface contain original data; ? however they are lacking the format of the original report. ? Caution should be taken when reading/interpreting unformatted reports. ? Name: ? LATOYA JEAN BAPTISTE A ? Accession #: ? [id number] ? : ? 1980 (Age: 28) ??F ?Collect Date: ? 01/14/2009 ? Location: ? [facility] ? Receive Date: ? 01/15/2009 ? Provider: ?HEATH ALVARADO CNM ? Copy to: ? Specimen/Source: ? Pap Test, Cervix/Endocervix, ThinPrep Imaging System ? with manual evaluation ? Last Menstrual Period: ? 9/8/09 ? Hormonal/Contraceptive Statu s: ? Yes: Marcela ? Previous Gynecologic Patholo gy: ? ASC-US: 10/05 ? HPV: + ? Treatment History: ? Colposcopy: 1/06 ? Cervical biopsy: Acute and C hr. cervicitis ? Other: ? Additional clinical informat ion: 8/07, 8/08 Pap neg and HPV neg ? HPVA - HPV testing requested if ASC-US on the current ThinPrep Pap test. ? SPECIMEN ADEQUACY ? Satisfactory for Eval uation ? - transformation zone compon ent present ? GENERAL CATEGORIZATION ? Negative for Intraepi thelial Lesion or Malignancy ? INTERPRETATION ? Reactive cellular imer nges associated with inflammation present (includes ?? repair). ? Document reviewed and electr onically signed by: ? MARGA GARCIA MD [facility] ? Report Date: ??09/28/ 2009 10:01 ? End of Report ? Specimen Performing Organization Address City/State/ZIP Code Phon e Number [facility] [address] [place] [address] SERVICES [facility] [address] [place] [address] CYTOPATHOLOGY (12/24/2007 0:00 EDT) Pathology Report: CYTOPATHOLOGY REPORT ? [facility] ? LAB Reports generated via electr onic interface contain original data; ? however they are lacking the format of the original report. ? Caution should be taken when reading/interpreting unformatted reports. ? Name: ? LATOYA JEAN BAPTISTE A ? Accession #: ? [id number] ? : ? 1980 (Age: 27) ??F ?Collect Date: ? 12/24/2007 ? Location: ? [facility] ? Receive Date: ? 12/25/2007 ? Provider: ?BETO LESLIE INCIDENT RESPONSE LEAD ? Copy to: ? Specimen/Source: ? ThinPrep Pap Test, Cervix/Endocervix, processed on [employer] ThinPrep Imaging System, wit h manual evaluation ? Last Menstrual Period: ? 8/4/08 ? Hormonal/Contraceptive Statu s: ? Oral contraceptives ? Other: ? HPVA - HPV testing requested if ASC-US on the current ThinPrep Pap test. ? SPECIMEN ADEQUACY ? Satisfactory for Eval uation ? - transformation zone compon ent present ? GENERAL CATEGORIZATION ? Negative for Intraepi thelial Lesion or Malignancy ? Document reviewed and electr onically signed by: ? Estefany Irwin, S CT(ASCP) ? Report Date: ??09/02/ 2008 14:37 ? End of Report ? Specimen Performing Organization Address City/State/ZIP Code Phon e Number [facility] [address] [place] [address] SERVICES [facility] [address] [place] [address] documented in this encounter Visit Diagnoses Not on filedocumented in this encounter
--- OUTSIDE RECORDS SUMMARY | 2022-02-03 16:06 | XMS_ITS | Encounter Summary ---
:1980 Author Organization [facility] Address [address] [place] [address] Care Team Providers Name Role Phone Unknown, Provider Primary Care Provider Ratna Olivas MD Primary Care Provider Encounter Details Date Type Department Care Team Description 10/05/2014 Historical Results [facility] Campos Stevens, Only [facility] DPM Results [address] [place], [place] [id number] [place] [id number] (Wo rk) Social History Tobacco Use Types [...] Date/Time Associated Diagnosis Comme nts XR TOE RIGHT 2 OR 10/05/2014 14:37 Result s for this MORE VIEWS EDT procedure are i n the results section. XR TOE RIGHT 2 OR 10/05/2014 14:01 Result s for this MORE VIEWS EDT procedure are i n the results section. documented in this encounter Results XR TOE RIGHT 2 OR MORE VIEWS (10/05/2014 14:37 EDT) Specimen Narrative [facility] - 10/05/2014 14:45 EDT ? EXAM: RADIOLOGY/TOE(S)-RIGHT ?EX. D/ (1413) ? CLINICAL INFORMATION: ? RIGHT GREAT TOE CHRONIC ULCER-RICHIE DARCY ? XR 1ST DIGIT RIGHT FOOT ? Comparison: MR right foot 08/20/19 15. ? Indication: Right great toe chron ic ulcer ? Findings:AP, oblique and lateral views of the 1st digit of the right ? foot were obtained. An ulcer is i dentified along the anteromedial ? aspect of the 1st digit at the le nicki of the distal phalanx. On the AP ? view there is apparent osteopenia of the proximal aspect of the ? distal phalanx medially. Degenera tive changes of the 1st MTP are ? noted. Alignment is anatomic. ? Impression: ? 1. Focal area of osteopenia invol ving the distal phalanx may be seen ? in the setting of osteomyelitis. MR is more sensitive. ? REPORT SIGNED IN OTHER VENDOR SYSTEM 10/05/2014 ?Reported B y: Heike Dietrich MD ? CC: ? Transcribed Date/Time: 10/05/2014 (1445) ? Bead Forming Machine Operator: ? Printed Date/Time: 10/07/2018 (19 17) ? PAGE 1 ? Haylee d Report ? Procedure Note Unknown, Doctor - 05/13/2019 EXAM: RADIOLOGY/TOE(S)-RIGHT EX. D/T: 0 10/05/2014 (1413) CLINICAL INFORMATION: RIGHT GREAT TOE CHRONIC ULCER-DORSAL XR 1ST DIGIT RIGHT FOOT Comparison: MR right foot 08/19/2014. Indication: Right great toe chronic ulc er Findings:AP, oblique and lateral views of the 1st digit of the right foot were obtained. An ulcer is identif ied along the anteromedial aspect of the 1st digit at the level of the distal phalanx. On the AP view there is apparent osteopenia of th e proximal aspect of the distal phalanx medially. Degenerative c hanges of the 1st MTP are noted. Alignment is anatomic. Impression: 1. Focal area of osteopenia involving t he distal phalanx may be seen in the setting of osteomyelitis. MR is more sensitive. REPORT SIGNED IN OTHER VENDOR SYSTEM 10/05/2014 Reported By: Heike Dietrich MD CC: Transcribed Date/Time: 10/05/2014 (8812 ) Bead Forming Machine Operator: Printed Date/Time: 10/07/2018 (6913) PAGE 1 Signed Report Performing Organization Address City/State/ZIP Code Phon e Number [facility] XR TOE RIGHT 2 OR MORE VIEWS (10/05/2014 14:01 EDT) Specimen Narrative [facility] - 10/05/2014 14:37 EDT ? EXAM: RADIOLOGY/TOE(S)-RIGHT ?EX. D/ (1413) ? CLINICAL INFORMATION: ? RIGHT GREAT TOE CHRONIC ULCER-RICHIE DARCY ? XR 1ST DIGIT RIGHT FOOT ? Comparison: MR right foot 08/20/19 15. ? Indication: Right great toe chron ic ulcer ? Findings:AP, oblique and lateral views of the 1st digit of the right ? foot were obtained. An ulcer is i dentified along the anteromedial ? aspect of the 1st digit at the le nicki of the distal phalanx. On the AP ? view there is apparent osteopenia of the proximal aspect of the ? distal phalanx medially. Degenera tive changes of the 1st MTP are ? noted. Alignment is anatomic. ? Impression: ? 1. Focal area of osteopenia invol ving the distal phalanx may be seen ? in the setting of osteomyelitis. MR is more sensitive. ? REPORT SIGNED IN OTHER VENDOR SYSTEM 10/05/2014 ?Reported B y: Heike Dietrich MD ? CC: ? Transcribed Date/Time: 10/05/2014 (5155) ? Bead Forming Machine Operator: ? Printed Date/Time: 10/07/2018 ( 17) ? PAGE 1 ? Haylee d Report ? Procedure Note Unknown, Doctor - 05/13/2019 EXAM: RADIOLOGY/TOE(S)-RIGHT EX. D/T: 0 10/05/2014 (1413) CLINICAL INFORMATION: RIGHT GREAT TOE CHRONIC ULCER-DORSAL XR 1ST DIGIT RIGHT FOOT Comparison: MR right foot 08/19/2014. Indication: Right great toe chronic ulc er Findings:AP, oblique and lateral views of the 1st digit of the right foot were obtained. An ulcer is identif ied along the anteromedial aspect of the 1st digit at the level of the distal phalanx. On the AP view there is apparent osteopenia of th e proximal aspect of the distal phalanx medially. Degenerative c hanges of the 1st MTP are noted. Alignment is anatomic. Impression: 1. Focal area of osteopenia involving t he distal phalanx may be seen in the setting of osteomyelitis. MR is more sensitive. REPORT SIGNED IN OTHER VENDOR SYSTEM 10/05/2014 Reported By: Heike Dietrich MD CC: Transcribed Date/Time: 10/05/2014 (3359 ) Bead Forming Machine Operator: Printed Date/Time: 10/07/2018 (3267) PAGE 1 Signed Report Performing Organization Address City/State/ZIP Code Phon e Number [facility] documented in this encounter Visit Diagnoses Not on filedocumented in this encounter Care Teams Take Off Man Relationship Specialty Start Date End Date Unknown, Provider, PCP - General 02/26/14 06/26/17 Ratna Olivas MD PCP - General 03/05/[address] [place] [phone] documented as of this encounter
--- OUTSIDE RECORDS SUMMARY | 2022-02-03 16:06 | XMS_ITS | Encounter Summary ---
:1980 Author Organization [facility] Address [address] [place] [address] Care Team Providers Name Role Phone Shruthi Huang Stewart PATEL Primary Care Provider Unknown, Provider Primary Care Provider Ratna Olivas MD Primary Care Provider Encounter Details Date Type Department Care Team Description 07/29/2013 Historical Results Only [facility] [place], Jessica Cabezas, [facility] [place] [facility] [place] [facility] [place] Megan Haddad [place], [place] [phone] Social History Tobacco Use Types Packs/Day Years [...] Priority Date/Time Associated Diagnosis Comme nts PAP TEST Routine 07/29/2013 10:04 EDT Results for this procedure are i n the results section . documented in this encounter Results PAP TEST (07/29/2013 10:04 EDT) Specimen Narrative [facility] - 014 16:20 EDT Name: LINDSAY JEAN BAPTISTE ?: [birth year] ?Age/Sex: 38/F ?Unit#: [id number] ? Loc: LAB.OPX ? Status: REG POV ?? Reg Date: 07/29/13 ? Pt.Phone Number : ? Specimen: [id number] ?STA TUS: SOUT ?Spec Date:07/29/13 ? Physician Copies: ?Gokul Kilgore MD ? Tissues: ? Cervical/Endo Pap ?Shruthi Huang APRN CPT: 63705 ?? Units: ??1 ? CYTOLOGY DIAGNOSIS SPECIMEN ADEQUACY: ?Satisfactory for evaluation. Transformation zone component ABSENT. GENERAL CATEGORIZATION: ?Negative fo r Intraepithelial Lesion or Malignancy DESCRIPTIVE DIAGNOSIS: ? Negative fo r Intraepithelial Lesion or Malignancy. ?HPV DNA RESULTS ?? 07/29/13 1150 HPV DNA RESULT ??NEG ? Negative for HP V types 16, 18, 31, 33, 35, 39, 45, 51, 52, ? 56, 58, 59, 66, 68. ? Method: Cervist a HPV HR (High Risk) DNA test. ORDER QUERIES: LMP: 07/07/13- NONE ? Pregnan t? N Post ? N ??PREVIOUS ATYPICAL: N BCP/HRT? Y Rad Rx? N IUD? N ??PAP PLUS HPV? Y ??REFLEX TO HR-HPV IF ASCUS N REFLEX TO HPV 16/18 IF HPV POS/PAP NEG N HPV REGARDLESS? Y ??RFLX HPV IF LSIL ?? Signed Rica Pennington CT(ASCP) 08/04/13 By the signature above, the attending ph ysician certifies that he/she has personally conducted a gross and/or microscopic exa mination of the described specimens and rendered or confirmed the above diagnosi s. Test Performed by [facility], [address] [place] [id number] Store Deli Manager: Jaimee Silvestre MD PHD Performing Organization Address City/State/ZIP Code Phon e Number [facility] [address] [place] [address] [facility] documented in this encounter Visit Diagnoses Not on filedocumented in this encounter Care Teams Horticulture Supervisor Relationship Specialty Start Date End Date Shruthi Huang APRN PCP - General 02/08/12 02/25/14 [address] [facility] [address] [place] [address] Unknown, MD Rambo PCP - General 02/26/14 06/26/17 Ratna Olivas MD PCP - General 03/05/[address] [phone] documented as of this encounter
--- OUTSIDE RECORDS SUMMARY | 2022-02-03 16:06 | XMS_ITS | Encounter Summary ---
:1980 Author Organization [facility] Address [address] [place] [address] Care Team Providers Name Role Phone Unavailable Primary Care Provider Unavailable Encounter Details Date Type Department Care Team Description 01/30/2007 Results Only [facility] - Jake Bernard MD conversion [address] [place] [address] Social History Tobacco Use Types Packs/Day Years [...] Procedure Name Priority Date/Time Associated Diagnosis Comme [facility] SURGICAL PATHOLOGY Routine 01/30/2007 0:00 EDT Re sults for this procedure are i n the results section. documented in this encounter Results SURGICAL PATHOLOGY (01/30/2007 0:00 EDT) Pathology Report: SURGICAL PATHOLOGY REPORT MEHUL EM Reports generated via electronic interface contain kat ginal data; LAB however they are lacking the format of the original re port. Caution should be taken when reading/interpreting unfo rmatted reports. Name: ? LATOYA JEAN BAPTISTE ELAINA Engle ? Accession #: ? [id number] ? : ? 1980 (Age: 26) ??F ? Collect Date: ? 01/30/2007 ? Location: ? [facility] ? Receive Date: ? 007 ? Provider: JAKE CHEUNG MD Copy to: YASMEENBriana MELO CREDIT ANALYSIS MANAGER ? Final Pathologic Diagnosis: A. ?Endometrium, curettage: 1. ?Small fragments of inactive endometri um. 2. ?Benign endocervical tissue. B. ?? Uterosacral ligament, right, biopsy: ? 1. ?? Dense fibrovasc ular connective tissue and mature adipose tissue with focal chronic ?inflammation. ??See comment. ?2. ?? No endometriosis is i dentified. ?? Comment: ? Deeper levels have been examined on specimens ( B1) and (B2). ??(Dr. Harris)/[facility] [[email or web address]] Document reviewed and electronically signed by: Jing Neri MD Report ??Date: 02/04/2007 14:36 By the signature above, the attending physician certif ies that he/she has personally conducted a gross and/or microscopic examin ation of the described specimens and rendered or confirmed the above diagnosi s. Specimen(s) Received: A. ?Endometrial curettings (#1) B. ? Right uterosacral (#2) Clinical History: ? Pelvic pain & dyspareunia Gross Description: ? Received in formalin labelled Jodee and endometrial curettings is a 0.8 x 0.6 x 0.3 cm aggregate of hemorrhagic red-brown soft tissue. Submitted in toto as (A). Received in formalin oliviasteffen [place] and right uterosacral is a 1.8 x 1.4 x 0.2 cm portion of givens-pink , smooth and glistening fibromembranous tissue. The specimen is sectioned and entirely submitted as (B1) a nd (B2). (Sarah Neumann)/[facility] End of Report Specimen Performing Organization Address City/State/ZIP Code Phon e Number [facility] [address] [place] [address] [facility] [address] [place] [address] documented in this encounter Visit Diagnoses Not on filedocumented in this encounter
--- OUTSIDE RECORDS SUMMARY | 2022-02-03 16:06 | XMS_ITS | Encounter Summary ---
:1980 Author Organization [facility] Address [address] [place] [address] Care Team Providers Name Role Phone Shruthi Huang APRN Primary Care Provider Encounter Details Date Type Department Care Team Description 02/20/2014 Hospital Encounter [facility] - Unknown, Provi dante, [facility] [phone] [place] [address] (Work) [place] [address] Social History Tobacco Use Types Packs/Day Years [...] on filedocumented in this encounter Care Teams Cost Recorder Relationship Specialty Start Date End Date Shruthi Huang APRN PCP - General 02/08/12 02/25/14 [address] [facility] [address] - [place], [place] [phone] documented as of this encounter
--- OUTSIDE RECORDS SUMMARY | 2022-02-03 16:06 | XMS_ITS ---
:1980 Author Care Team Providers Name Role Phone DR. MEL DIGGS Primary Care Provider [phone] DR. MEL DIGGS Referring Provider [phone] Allergies Code Code System Name Reaction Severity Status Onset NKDA ? Medications Name Status Start Date Stop Date ? ? clotrimazole-betamethasone 0.05-1 % topical cream Active ? Not available Eliquis 5 mg tablet Active ? Not availabl e Take 1 tablet twice a day by oral route. ferrous gluconate 324 mg (37.5 mg iron) tablet Active ? Not available Take 1 tablet every day by oral route. fluconazole 150 mg tablet Active ? Not av ailable Take 1 tablet every week by oral route. gabapentin 600 mg tablet Active ? Not magdalena ilable Take 1 tablet 3 times a day by oral route. hydroxyzine HCl 25 mg tablet Active ? Not available Take 1 tablet every day by oral route at bedtime. ibuprofen 800 mg tablet Active ? Not avai lable Take 1 tablet 3 times a day by oral route as needed. methocarbamol 500 mg tablet Active ? Not available Take 2 tablets twice a day by oral route. Miralax 17 gram oral powder packet Active ? Not available Take 1 packet every day by oral route. multivitamin Active ? Not available once mj y norethindrone 5 mg tablet Active ? Not av ailable Take 1 tablet every day by oral route. sertraline 100 mg tablet Active ? Not magdalena ilable Take 1 tablet every day by oral route. Suboxone 8 mg-2 mg sublingual film Active ? Not available Place 1 film every day by sublingual route. trazodone 50 mg tablet Active ? Not avail able Take 1 tablet every day by oral route. Tylenol Extra Strength 500 mg tablet Active ? Not available Take 2 tablets every 4 hours by oral route as needed. Problems Name Status Onset Date Source ? Chronic Hepatitis C Active 01/17/2019 ? Chronic Infectious Disease Active 01/17/2019 ? Social Phobia Active 01/17/2019 ? Opioid Dependence Active 01/17/2019 ? Opioid Abuse Active 01/17/2019 ? Cocaine Abuse Active 01/17/2019 ? Insomnia Active 01/17/2019 ? Deep Venous Thrombosis Active 01/17/2019 ? Menorrhagia Active 01/17/2019 ? Ulcer of Foot Active 01/17/2019 ? 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 Procedures Date Name Performed by ? 01/20/2019 XR, Toe(s) Xray [facility] [address] [place], [place] [address] (Work [address]) Results Lab Results Date Name Specimen Result Interpretation Description Value Range Status Address ? 01/21/2019 Uric Acid, ? No observation ? ? ? [facility] Serum or Plasma recorded. [facility]: [address] [facility] [place], [place] Past Encounters None recorded. Social History Tobacco Smoking Status Never Smoker Notes: 01/20/19 Vaccine List None recorded. Plan of Care Reminders Provider Appointments None recorded. ? ? Lab None recorded. ? ? Referral None recorded. ? ? Procedures None recorded. ? ? Surgeries None recorded. ? ? Imaging None recorded. ? ? Vitals Height Weight BMI Blood Pressure 162.56 cm 60.33 kg 22.8 kg/m2 124/62 mm[Hg]
--- OUTSIDE RECORDS SUMMARY | 2022-02-03 16:06 | XMS_ITS | Encounter Summary ---
:1980 Author Organization [facility] Address [address] [place] [address] Care Team Providers Name Role Phone Unknown, Provider Primary Care Provider Encounter Details Date Type Department Care Team Description 08/19/2014 Historical Results Only [facility] - Aubrey Watkins, [facility] [place] Resul ts MD Megan [address] [place], [place] [phone] Social History Tobacco Use Types Packs/Day Years [...] Name Priority Date/Time Associated Diagnosis Comme nts MR FOOT WO CONTRAST 08/19/2014 14:31 Resu lts for this RIGHT EDT procedure are i n the results section. documented in this encounter Results MR FOOT WO CONTRAST RIGHT (08/19/2014 14:31 EDT) Specimen Narrative [facility] - 08/19/2014 14:48 EDT ? EXAM: MAGNETIC RESONANCE IMAGING/FOOT RT ??EX. D/ (1333) ? CLINICAL INFORMATION: ? LONG STANDING RIGHT GREAT TOE INF ECTION, ? NON HEALING ? FOOT RT W/O CONTRAST ? Signs and Symptoms/Comments: Ulce r of right toe. Open wound left ? lower leg. Long-standing right gr eat toe infection. ? Comparison: Right foot radiograph s on 10/29/2013. ? Technique: Noncontrast MR of the right foot was performed with the ? following sequences: Sagittal T1, sagittal STIR, coronal T1, coronal ? STIR, axial proton density, axial STIR. Of note, patient declined IV ? placement therefore intravenous c ontrast could not be administered. ? Findings: ? MR images of the forefoot were pe rformed. ? There is a small ulcer along the dorsal medial aspect of the first ? distal phalanx (axial STIR image 14). The ulcer appears to extend ? within a few millimeters of the u nderlying first distal phalanx. ? There is associated soft tissue t hickening and edema along the dorsal ? aspect of the great toe extending from the level of the proximal ? phalanx through the distal tuft ( sagittal STIR image 18, coronal STIR ? images 28-33). There is moderate bone marrow edema in the underlying ? first distal phalanx, however no associated loss of T1 signal is ? identified to confirm osteomyelit is (axial STIR image 13). There is ? also mild bone marrow edema in th e first metatarsal and first ? proximal phalanx, also without as sociated loss of T1 signal. The ? flexor and extensor tendons of th e first ray appear grossly intact. ? Mild soft tissues edema extends a long the medial aspect of the ? forefoot compatible cellulitis. N o drainable fluid collection is ? identified. ? The remaining osseous structures of the forefoot and visible midfoot ? are normal in signal. The major f lexor and extensor tendons are ? intact. The Lisfranc ligamentous complex is intact . ? IMPRESSION: ? 1. Ulceration over the right grea t toe with bone marrow edema in the ? underlying first distal phalanx. Although this may be seen with ? osteomyelitis, there is no loss o f T1 marrow signal for confirmation. ? Differential also includes reacti ve changes from overlying ? ulceration/cellulitis. ? PAGE 1 ? Haylee d Report ? (CONTINUED) ? 2. Cellulitis along the first gre at toe extending over the medial ? forefoot. No drainable fluid deborah ection. ? REPORT SIGNED IN OTHER VENDOR SYSTEM 08/19/2014 ?Reported B y: Wally Dacosta MD ? CC: ? Transcribed Date/Time: 08/19/2014 (1448) ? Swimming Pool Serviceperson: R ? Printed Date/Time: 10/01/2018 (10 41) ? PAGE 2 ? Haylee d Report ? Procedure Note Wally Dacosta MD - 03/04/2019 EXAM: MAGNETIC RESONANCE IMAGING/FOOT R T EX. D/ (1333) CLINICAL INFORMATION: LONG STANDING RIGHT GREAT TOE INFECTION , NON HEALING FOOT RT W/O CONTRAST Signs and Symptoms/Comments: Ulcer of r ight toe. Open wound left lower leg. Long-standing right great to e infection. Comparison: Right foot radiographs on . Technique: Noncontrast MR of the right foot was performed with the following sequences: Sagittal T1, sagit dalia STIR, coronal T1, coronal STIR, axial proton density, axial STIR. Of note, patient declined IV placement therefore intravenous contras t could not be administered. Findings: MR images of the forefoot were performe d. There is a small ulcer along the dorsal medial aspect of the first distal phalanx (axial STIR image 14). T he ulcer appears to extend within a few millimeters of the underly ing first distal phalanx. There is associated soft tissue thicken ing and edema along the dorsal aspect of the great toe extending from the level of the proximal phalanx through the distal tuft (sagitt al STIR image 18, coronal STIR images 28-33). There is moderate bone m arrow edema in the underlying first distal phalanx, however no associ ated loss of T1 signal is identified to confirm osteomyelitis (ax ial STIR image 13). There is also mild bone marrow edema in the firs t metatarsal and first proximal phalanx, also without associat ed loss of T1 signal. The flexor and extensor tendons of the firs t ray appear grossly intact. Mild soft tissues edema extends along t he medial aspect of the forefoot compatible cellulitis. No drai nable fluid collection is identified. The remaining osseous structures of the forefoot and visible midfoot are normal in signal. The major flexor and extensor tendons are intact. The Lisfranc ligamentous comple x is intact . IMPRESSION: 1. Ulceration over the right great toe with bone marrow edema in the underlying first distal phalanx. Althou gh this may be seen with osteomyelitis, there is no loss of T1 m arrow signal for confirmation. Differential also includes reactive imer nges from overlying ulceration/cellulitis. PAGE 1 Signed Report (CONTINUED) 2. Cellulitis along the first great toe extending over the medial forefoot. No drainable fluid collection . REPORT SIGNED IN OTHER VENDOR SYSTEM 08/19/2014 Reported By: Wally Dacosta MD CC: Transcribed Date/Time: 08/19/2014 (7560 ) Swimming Pool Serviceperson: Printed Date/Time: 10/01/2018 (0368) PAGE 2 Signed Report Performing Organization Address City/State/ZIP Code Phon e Number [facility] documented in this encounter Visit Diagnoses Not on filedocumented in this encounter Care Teams Pharmacy Teacher Relationship Specialty Start Date End Date Unknown, Provider, PCP - General 02/26/14 06/26/17 documented as of this encounter
--- OUTSIDE RECORDS SUMMARY | 2022-02-03 16:06 | XMS_ITS | Encounter Summary ---
:1980 Author Organization [facility] Address [address] [place] [address] Care Team Providers Name Role Phone Unknown, Provider Primary Care Provider Encounter Details Date Type Department Care Team Description 03/23/2015 Hospital Encounter [facility] - Unknown, Jessica howell [facility] [phone] [address] [facility] (Work) [place] [address] Social History Tobacco Use Types Packs/Day Years [...] Code Departure Means Destination Home or Self [facility] documented in this encounter Plan of Treatment Not on filedocumented as of this encounter Visit Diagnoses Not on filedocumented in this encounter Care Teams Mailing Machine Assistant Relationship Specialty Start Date End Date Unknown, Provider, PCP - General 02/26/14 06/26/17 documented as of this encounter
--- OUTSIDE RECORDS SUMMARY | 2022-02-03 16:06 | XMS_ITS | Encounter Summary ---
:1980 Author Organization [facility] Address [address] [place] [address] Care Team Providers Name Role Phone Unknown, Provider Primary Care Provider Encounter Details Date Type Department Care Team Description 07/27/2015 Hospital Encounter [facility] - Unknown, Jessica howell [facility] [phone] [address] [facility] (Work) [place] [address] Social History Tobacco Use Types Packs/Day Years [...] Code Departure Means Destination Home or Self Group Home documented in this encounter Plan of Treatment Not on filedocumented as of this encounter Visit Diagnoses Not on filedocumented in this encounter Care Teams Executive Administrative Assistant Relationship Specialty Start Date End Date Unknown, Provider, PCP - General 02/26/14 06/26/17 documented as of this encounter
--- OUTSIDE RECORDS SUMMARY | 2022-02-03 16:06 | XMS_ITS | Encounter Summary ---
:1980 Author Organization [facility] Address [address] [place] [address] Care Team Providers Name Role Phone Shruthi Huang Stewart PATEL Primary Care Provider Unknown, Provider Primary Care Provider Ratna Olivas MD Primary Care Provider Encounter Details Date Type Department Care Team Description 03/07/2012 Historical Results [facility] - Ayesha Mcneal, Only [facility] - Main [facility] [address] [address] [address] [place] [address] Social History Tobacco Use Types Packs/Day Years [...] Associated Diagnosis Comme nts PAP TEST Routine 03/07/2012 Results for thi s procedure are in the resu lts section. documented in this encounter Results PAP TEST (03/07/2012) Specimen Narrative [facility] - 012 11:43 EST Name: LINDSAY JEAN BAPTISTE ?: [birth year] ?Age/Sex: 38/F ?Unit#: [id number] ? Loc: AGO ? Status: REG POV ?? Reg Date: 03/07/12 ? Pt.Phone Number : ? Specimen: [id number] ?CINDY KENDALL: SULEMAN ?Spec Date:03/07/12 ? Physician Copies: ?Ifrah Mcneal ? Tissues: ? Cervical/Endo Pap ?Shruthi Huang ??DO N CPT: 71339 ?? Units: ??1 ? CYTOLOGY DIAGNOSIS SPECIMEN ADEQUACY: ?Satisfactory for evaluation. Transformation zone component present. GENERAL CATEGORIZATION: ?Negative fo r Intraepithelial Lesion or Malignancy DESCRIPTIVE DIAGNOSIS: ??Reactive cellul ar changes associated with inflammation present (includes typical repair). RECOMMENDATIONS/COMMENTS: ?None. ORDER QUERIES: LMP: 02/27/12- ?Preg nant? N Post ? N ??PREVIOUS ATYPICAL: N BCP/HRT? Y Rad Rx? N IUD? N ??PAP PLUS HPV? N ??REFLEX TO HR-HPV IF ASCUS ?? REFLEX TO HPV 16/18 IF HPV POS/PAP NEG ?? HPV REGARDLESS?RFLX HPV IF LSIL ?? IF ASCUS DO HPV? Y Signed ____(signature on file)____ Jaimee Easton M.D. 03/14/12 By the signature above, the attending ph ysician certifies that he/she has personally conducted a gross and/or microscopic exa mination of the described specimens and rendered or confirmed the above diagnosi s. Test Performed by [facility], [address] [place] [address] Hat Maker: Jaimee Silvestre MD PHD Performing Organization Address City/State/ZIP Code Phon e Number [facility] [address] [place] [address] [facility] documented in this encounter Visit Diagnoses Not on filedocumented in this encounter Care Teams Abrasive Band Winder Relationship Specialty Start Date End Date Shruthi Huang APRN PCP - General 02/08/12 02/25/14 [address] [facility] [address] [place], [place] [address] Unknown, MD Rambo PCP - General 02/26/14 06/26/17 Ratna Olivas MD PCP - General 03/05/[address] [phone] documented as of this encounter
--- OUTSIDE RECORDS SUMMARY | 2022-02-03 16:06 | XMS_ITS | Encounter Summary ---
:1980 Author Organization [facility] Address [address] [place] [address] Care Team Providers Name Role Phone Unavailable Primary Care Provider Unavailable Encounter Details Date Type Department Care Team Description 05/03/2001 Results Only [facility] - Savannah Egan od, MITZI [address] [place] [phone] (Wo rk) Social History Tobacco Use Types [...] Procedure Name Priority Date/Time Associated Diagnosis Comme [facility] CYTOPATHOLOGY Routine 05/03/2001 0:00 EST Results for this procedure are i n the results section . documented in this encounter Results CYTOPATHOLOGY (05/03/2001 0:00 EST) Pathology Report: CYTOPATHOLOGY REPORT [facility] Reports generated via electronic interface contain kat ginal data; however they are lacking the format of the original re port. Caution should be taken when reading/interpreting unfo rmatted reports. Name: ? LINDSAY JEAN BAPTISTE ? Accession #: ? [id number] : ? 1980 (Age: 20) ??F ?Collect Date: ? 07/2001 Location: ? [facility] ? Receive Date : ? 05/06/2001 Provider: ?SAVANNAH ROD CERTIFIED PHLEBOTOMIST Copy to: ? Specimen/Source: ?Conventional Pap Test, Cer vix/Endocervix Last Menstrual Period: ? 04/08/01 Hormonal/Contraceptive Status: ? Oral contraceptives ? SPECIMEN ADEQUACY ? Satisfactory for Evaluation - transformation zone component present GENERAL CATEGORIZATION ? Negative for Intraepithelial Lesion or Malignan cy ? Document reviewed and electronically signed by: ? BEAU Edge(ASCP) ? Report Date: ??05/07/2001 14:37 End of Report Specimen Performing Organization Address City/State/ZIP Code Phon e Number [facility] [address] [place] [address] SERVICES [facility] [address] [place] [address] documented in this encounter Visit Diagnoses Not on filedocumented in this encounter
--- OUTSIDE RECORDS SUMMARY | 2022-02-03 16:06 | XMS_ITS | Encounter Summary ---
:1980 Author Organization [facility] Address [address] [place] [address] Care Team Providers Name Role Phone Unknown, Provider Primary Care Provider Encounter Details Date Type Department Care Team Description 06/25/2016 Historical Results [facility] - Nivia Bui [facility] Lab - Main [place] Faye DO [address] [place], [place] [address] [place] [address] [phone] Social History Tobacco Use Types Packs/Day [...] Procedure Name Priority Date/Time Associated Comments Diagnosis HIV 1/2 AB, P24 AG - Routine 06/25/2016 6:49 Resu lts for this [facility] EST procedure are i n the results section. HCV RNA DETECT QUANT Routine 06/25/2016 6:49 Resu lts for this EST procedure are i n the results section. IBC Routine 06/25/2016 6:49 Results for this EST procedure are i n the results section. COMPLETE BLOOD COUNT Routine 06/25/2016 6:49 Resu lts for this AND DIFFERENTIAL EST procedure a re in the results section. TYPE AND SCREEN Routine 06/25/2016 6:49 Results f or this EST procedure are i n the results section. C REACTIVE PROTEIN Routine 06/25/2016 6:49 Result s for this EST procedure are i n the results section. MAGNESIUM Routine 06/25/2016 6:49 Results for this EST procedure are i n the results section. IRON Routine 06/25/2016 6:49 Results for this EST procedure are i n the results section. FERRITIN Routine 06/25/2016 6:49 Results for this EST procedure are i n the results section. CK Routine 06/25/2016 6:49 Results for this EST procedure are i n the results section. COMPREHENSIVE Routine 06/25/2016 6:49 Results for this METABOLIC PANEL (CMP) EST proced ure are in the results section. BLOOD CULTURE - [facility] Routine 06/25/2016 5:15 Resu lts for this EST procedure are i n the results section. documented in this encounter Results HIV 1/2 AB, P24 AG - [facility] (06/25/2016 6:49 EST) HIV 1/2 AB, P24 AG Non-Reactive Non-React [facility] Comment: [facility] Assayed using Siemens 4th generation Advia Centaur HIV 1/2 Ab, p24 Ag combination assay. Specimen Performing Organization Address City/[facility]/ZIP Code Phon e Number [facility] [address] LAB (ABNORMAL) IBC (06/25/2016 6:49 EST) Pathologist Sig nature IRON BINDING 204 (L) 250 - 450 ug/dL [facility] CAPACITY [facility] CENTER LAB Specimen Performing Organization Address City/[facility]/ZIP Code Phon e Number [facility] [address] [place] [phone] [facility] FERRITIN (06/25/2016 6:49 EST) Pathologist Sig [facility] FERRITIN - [facility] 126 8 - 252 ng/mL [facility] Specimen Performing Organization Address City/[facility]/ZIP Code Phon e Number [facility] [address] [place] [phone] [place] [address] LAB (ABNORMAL) IRON (06/25/2016 6:49 EST) Pathologist Sig [facility] SERUM IRON - [facility] 10 (L) 35 - 150 ug/dL [facility] Specimen Performing Organization Address City/[facility]/ZIP Code Phon e Number [facility] [address] LAB (ABNORMAL) C REACTIVE PROTEIN (06/25/2016 6:49 EST) Pathologist [facility] C-Reactive Protein 287 (H) 0.0 - 3.0 mg/L [facility] Specimen Performing Organization Address City/[facility]/ZIP Code Phon e Number [facility] [address] LAB (ABNORMAL) CK (06/25/2016 6:49 EST) Pathologist [facility] CPK [facility] 340 (H) 21 - 215 U/L [facility] L AB Specimen Performing Organization Address [facility]/ZIP Code Phon e Number [facility] [address] LAB MAGNESIUM (06/25/2016 6:49 EST) Pathologist [facility] Magnesium 2.00 1.6 - 2.6 mg/dL [facility] Comment: CENTER LAB 24 Hour urine magnesium is a better indicator of magne sium stores. Specimen Performing Organization Address City/[facility]/ZIP Code Phon e Number [facility] [address] LAB (ABNORMAL) COMPREHENSIVE METABOLIC PANEL (CMP) (06/25/2016 6:49 EST) Pathologist [facility] ALBUMIN [facility] 2.2 (L) 3.4 - 5.0 [facility] g/dL [facility] ALKALINE 156 (H) 41 - 126 U/L [facility] PHOSPHATASE [facility] BILIRUBIN TOTAL 0.4 0.0 - 1.0 [facility] mg/dL [facility] BUN - [facility] 16 7 - 18 mg/dL [facility] CALCIUM - [facility] 7.6 (L) 8.5 - 10.1 [facility] mg/dL [facility] Chloride 106 98 - 107 [facility] mEq/L [facility] CO2 Total 22 21 - 32 mEq/L [facility] CREATININE 0.96 0.5 - 1.3 [facility] mg/dL [facility] LAB eGFR >60 [facility] Comment: [facility] LAB Chronic renal impairment is defined as GFR <60 Multiply result by 1.210 for patients . eGFR calculated using the IDMS-traceable MDRD Study Equation. ??(effective 03/02/2014) Anion Gap 13 5 - 15 [facility] GLUCOSE - [facility] 82 70 - 100 [facility] mg/dL [facility] Potassium 3.7 3.5 - 5.0 [facility] mEq/L [facility] Sodium 140 135 - 145 [facility] mEq/L [facility] LAB TOTAL PROTEIN - 6.5 6.4 - 8.2 [facility] gm/dl [facility] SGOT/AST - [facility] 41 (H) 10 - 37 U/L [facility] SGPT/ALT - [facility] 30 12 - 78 U/L [facility] Specimen Performing Organization Address City/State/ZIP Code Phon e Number [facility] [address] [place], [place] [phone] [place] [address] LAB (ABNORMAL) COMPLETE BLOOD COUNT AND DIFFERENTIAL (06/25/2016 6:49 EST) ABSOLUTE NEUTROPHIL 28.88 (H) 1.8 - 7.8 [facility] COUN - [facility] 10e3/ul [facility] BANDS - [facility] 5 (H) 0 - 3 % [facility] ELLIPTOCYTES - [facility] RARE [facility] HEMATOCRIT - [facility] 22.3 (L) 34.0 - 47.0 % [facility] HEMOGLOBIN - [facility] 6.8 (LL) 11.2 - 15.7 [facility] Comment: g/dl [facility] Result called to ENID HUI ON 2S 06/25/16 0719 Result called by KEVON HYPOCHROMASIA - [facility] 3+ [facility] LYMPH # - [facility] 1.21 0.9 - 2.9 [facility] 10e3/uL [facility] LYMPHOCYTES - [facility] 4 (L) 20 - 40 % [facility] MEAN CORPUSCULAR HGB - 23.4 (L) 26 - 34 pg [facility] MEAN CORPUSCULAR HGB 30.5 (L) 31 - 36 g/dL [facility] CONC - [facility] LAB MEAN CELL VOLUME - 76.6 (L) 77 - 100 fl [facility] MICROCYTES - [facility] 1+ [facility] MONO # - [facility] 0.30 0.3 - 0.9 [facility] 10e3/uL MED CENTER LAB MONOCYTE - [facility] 1 0 - 12 % [facility] PLATELET COUNT 349 150 - 400 [facility] 10e3/ul [facility] NEUTROPHILS - [facility] 90 (H) 40 - 80 % [facility] RED BLOOD COUNT - [facility] 2.91 (L) 3.8 - 5.2 [facility] 10e6/ul [facility] RED CELL DISTRI WIDTH 19.3 (H) 11.8 - 15.6 % [facility] LAB WHITE BLOOD COUNT - 30.4 (HH) 3.5 - 10.5 [facility] 10e3/ul [facility] Specimen Performing Organization Address [facility] Phon e Number [facility] [address] [place], [place] [phone] [place] [address] LAB HCV RNA DETECT QUANT (06/25/2016 6:49 EST) [facility] HCV RNA Undetected Undetected IU/mL [facility] Quantitative Comment: [facility] Result in log IU/mL is Undetected. ADDITIONAL INFORMATION ------ The quantification range of this assay is 15 to 100,00 0,000 IU/mL (1.18 log to 8.00 log IU/mL). Testing was perfor [facility] by the [employer] AmpliPrep/[employer] TaqMan HCV Test, version 2.0 ([employer] Test Performed by: [place] [address] Well Puller Head: Jake Cordova II, M.D., Ph.D . Specimen Performing Organization Address City/[facility] Phon e Number [facility] [address] [place] [address] [facility] TYPE AND SCREEN (06/25/2016 6:49 EST) [facility] BLOOD TYPE [facility] A Positive [facility] Antibody Screen NEGATIVE [facility] Specimen Expires: 06/28/[address] [place] [address] Comment: [facility] 06/25/16 0903: ??SPEC. EXPIRES previously reported as: ?? 07/16/16 AT [facility] ?? Specimen Performing Organization Address City/[facility]/ZIP Code Phon e Number [facility] [address] [place] [address] [facility] BLOOD CULTURE - [facility] (06/25/2016 5:15 EST) Pathologist Sig nature BLOOD CULTURE - [facility] BLOOD CULTURE - NO GROWTH AT 5 [facility] Specimen Narrative [facility] - 017 7:18 EST Does PT Have a Latex Allergy? NO Specimen description #2 CENTRAL Performing Organization Address City/[facility] Code Phon e Number [facility] [address] [place] [address] [facility] documented in this encounter Visit Diagnoses Not on filedocumented in this encounter Care Teams County Extension Agent Relationship Specialty Start Date End Date Unknown, Provider, PCP - General 02/26/14 06/26/17 documented as of this encounter
--- OUTSIDE RECORDS SUMMARY | 2022-02-03 16:06 | XMS_ITS | Encounter Summary ---
:1980 Author Organization [facility] Address [address] [place] [address] Care Team Providers Name Role Phone Shruthi Perez JORGE Primary Care Provider Encounter Details Date Type Department Care Team Description 11/04/2013 Results Only [facility]- Denis Mckinley [phone] Social History Tobacco Use Types Packs/Day Years [...] Procedure Name Priority Date/Time Associated Diagnosis Comme [facility] SURGICAL PATHOLOGY Routine 11/04/2013 10:31 Resul ts for this EDT procedure are i n the results section. documented in this encounter Results SURGICAL PATHOLOGY (11/04/2013 10:31 EDT) Pathology Report: SURGICAL PATHOLOGY REPORT [facility] Reports generated via electronic interface contain kat ginal data; LAB however they are lacking the format of the original re port. Caution should be taken when reading/interpreting unfo rmatted reports. Name: ? LATOYA JEAN BAPTISTE ELAINA Engle ? Accession #: ? [id number] ? : ? 1980 (Age: 32) ??F ? Collect Date: ? 11/04/2013 ? Location: ? [facility] ? Receive Date: ? 014 ? Provider: DENIS ARDON MD Copy to: TOSHA PEREZ PRESSER ALL AROUND ? Final Pathologic Diagnosis: OUTSIDE SLIDES [facility] [id number] (2), PROCEDURE DATE 10/30/2013: SKIN OF TOE, RIGHT GREAT, PUNCH BIOPSY: - Epidermal ulceration with reactive vas cular changes and sparse inflammation. See comment. Comment: The histopathologic features are relatively non-specif ic and notable for epidermal ulceration with sparse inflammation and reac tive vascular changes. The vessels are swollen and some have fibrinoid change and hyalinization. ??The significance of these features, however, is uncertain given that they are beneath the area of ulceration. ??No definitive featur es of vasculitis are present. ??The ulceration is associated with mild infl ammation that has a relatively non-specific pattern. ??There is no signifi cant neutrophilic or eosinophilic component. ??An infectious etiology is a consideration and histochemical stains could b e performed to detect possible organisms. ??However, it is noted that cultures were performed and should be interpreted in the context of the physical exam ination and histopathologic findings. ??Features of a specific underlying dermatitis are not evident i n this biopsy. ??However, the majority of the epidermis is ulcerated thus precluding identification of an underlying dermatitis. (Dr. Taveras)/mpl Microscopic Description: Sections consist of a punch biopsy of skin to the deep reticular dermis. ??On the surface of the skin, there is detached parakeratosis w ith degenerated inflammatory cells and basop hilic debris. ??Much of the epidermis is eroded and ulcerated. ??The portions of intact epid ermis have reactive changes suggesting regeneration. ??Within the s uperficial dermis, there is mild hypercellularity and diffuse mild inflammation. ??The inflammation consists primarily of lymphomononuclear cells alth ough a rare eosinophil is noted. ??The vessels show reactive changes with mural swelling and endothelial cell hypertrophy. ??At the edge of the biopsy, there is a larger vessel that has mural fibroplasia with mild inflammation. ??Some of the vessels appear hyalinized and have fibrinoid change. ??There is erythrocyte extravasation. ??(Dr. Miguel joseph)/mpl Document reviewed and electronically signed by: GERRY TAVERAS MD Report ??Date: 11/04/2013 16:14 By the signature above, the attending physician certif ies that he/she has personally conducted a gross and/or microscopic examin ation of the described specimens and rendered or confirmed the above diagnosi s. Specimen(s) Received: [facility] [id number] (2) Clinical History: Chronic rash and wound dorsal right great toe Gross Description: ? Two slides are receiv ed for review from [facility], one each labelled [id number] D1 and [id number] D2. End of Report Specimen Performing Organization Address City/State/ZIP Code Phon e Number [facility] [address] [place] [address] SERVICES [facility] [address] [place] [address] documented in this encounter Visit Diagnoses Not on filedocumented in this encounter Care Teams Corn Grinder Relationship Specialty Start Date End Date Shruthi Perez APRN PCP - General 02/08/12 02/25/[address] [place] [address] [place] [phone] documented as of this encounter
--- OUTSIDE RECORDS SUMMARY | 2022-02-03 16:06 | XMS_ITS | Encounter Summary ---
:1980 Author Organization [facility] Address [address] [place] [address] Care Team Providers Name Role Phone Unknown, Provider Primary Care Provider Encounter Details Date Type Department Care Team Description 11/17/2015 Historical Results Only [facility] Zeferino Horn [facility] [place] [address] [place], [place] [id number] [place] [address] [phone] Social History Tobacco Use Types Packs/Day Years [...] Priority Date/Time Associated Diagnosis Comme nts XR PELVIS 1-2 VIEWS 11/17/2015 12:05 Resu lts for this EDT procedure are i n the results section. XR LUMBAR SPINE 2-3 11/17/2015 12:05 Resu lts for this VIEWS EDT procedure are i n the results section. documented in this encounter Results XR LUMBAR SPINE 2-3 VIEWS (11/17/2015 12:05 EDT) Specimen Narrative [facility] - 11/17/2015 12:10 EDT ? EXAM: RADIOLOGY/LUMBAR SPINE 2 OR 3 VIEWS EX. D/ (1156) ? CLINICAL INFORMATION: ? INCREASING LUMBAR BACK PAIN X 1 [place] ? PELVIS 1-2 VIEWS, LUMBAR SPINE 2 OR 3 VIEWS ??11/17/2015 11:56 AM ? CLINICAL HISTORY/COMMENTS: DEBBIA SING LUMBAR BACK PAIN X 1 WEEK 1 ? VIEW. LWR BACK PAIN ? COMPARISON: None. ? FINDINGS: A single AP view of the pelvis and AP and lateral views of ? the lumbar spine were obtained. T here are 5 nonrib-bearing lumbar ? type vertebral bodies in appropri ate alignment with no acute ? fractures or subluxations. The os seous structures of the pelvis and ? hips are unremarkable with no fra ctures or dislocations. The ? overlying soft tissues are within normal limits. ? IMPRESSION: ? No acute abnormality. ? REPORT SIGNED IN OTHER VENDOR SYSTEM 11/17/2015 ?Reported B y: Pavel Brand MD ? CC: ? Transcribed Date/Time: 11/17/2015 (1210) ? Molded [employer] Cutter: ? Printed Date/Time: 10/10/2018 (23 36) ? PAGE 1 ? Haylee d Report ? Procedure Note Pavel Brand MD - 03/05/2019 EXAM: RADIOLOGY/LUMBAR SPINE 2 OR 3 VIE WS EX. D/ (1156) CLINICAL INFORMATION: INCREASING LUMBAR BACK PAIN X 1 WEEK PELVIS 1-2 VIEWS, LUMBAR SPINE 2 OR 3 V IEWS 11/17/2015 11:56 AM CLINICAL HISTORY/COMMENTS: INCREASING L UMBAR BACK PAIN X 1 WEEK 1 VIEW. LWR BACK PAIN COMPARISON: None. FINDINGS: A single AP view of the pelvi s and AP and lateral views of the lumbar spine were obtained. There a re 5 nonrib-bearing lumbar type vertebral bodies in appropriate al ignment with no acute fractures or subluxations. The osseous structures of the pelvis and hips are unremarkable with no fractures or dislocations. The overlying soft tissues are within purvi l limits. IMPRESSION: No acute abnormality. REPORT SIGNED IN OTHER VENDOR SYSTEM 11/17/2015 Reported By: Pavel Brand MD CC: Transcribed Date/Time: 11/17/2015 (1210 ) M[employer] Cutter: Printed Date/Time: 10/10/2018 (7111) PAGE 1 Signed Report Performing Organization Address City/State/ZIP Code Phon e Number [facility] XR PELVIS 1-2 VIEWS (11/17/2015 12:05 EDT) Specimen Narrative [facility] - 11/17/2015 12:10 EDT ? EXAM: RADIOLOGY/PELVIS 1-2 VIEWS ?EX. D/ (1156) ? CLINICAL INFORMATION: ? INCREASING LUMBAR BACK PAIN X 1 [place] 1 VIEW ? PELVIS 1-2 VIEWS, LUMBAR SPINE 2 OR 3 VIEWS ??11/17/2015 11:56 AM ? CLINICAL HISTORY/COMMENTS: INCREA SING LUMBAR BACK PAIN X 1 WEEK 1 ? VIEW. LWR BACK PAIN ? COMPARISON: None. ? FINDINGS: A single AP view of the pelvis and AP and lateral views of ? the lumbar spine were obtained. T here are 5 nonrib-bearing lumbar ? type vertebral bodies in appropri ate alignment with no acute ? fractures or subluxations. The os seous structures of the pelvis and ? hips are unremarkable with no fra ctures or dislocations. The ? overlying soft tissues are within normal limits. ? IMPRESSION: ? No acute abnormality. ? REPORT SIGNED IN OTHER VENDOR SYSTEM 11/17/2015 ?Reported B y: Pavel Brand MD ? CC: ? Transcribed Date/Time: 11/17/2015 (1210) ? M[employer] Cutter: ? Printed Date/Time: 10/10/2018 (49 86) ? PAGE 1 ? Haylee d Report ? Procedure Note Pavel Brand MD - 03/05/2019 EXAM: RADIOLOGY/PELVIS 1-2 VIEWS EX. D/ (1156) CLINICAL INFORMATION: INCREASING LUMBAR BACK PAIN X 1 WEEK 1 VIEW PELVIS 1-2 VIEWS, LUMBAR SPINE 2 OR 3 V IEWS 11/17/2015 11:56 AM CLINICAL HISTORY/COMMENTS: INCREASING L UMBAR BACK PAIN X 1 WEEK 1 VIEW. LWR BACK PAIN COMPARISON: None. FINDINGS: A single AP view of the pelvi s and AP and lateral views of the lumbar spine were obtained. There a re 5 nonrib-bearing lumbar type vertebral bodies in appropriate al ignment with no acute fractures or subluxations. The osseous structures of the pelvis and hips are unremarkable with no fractures or dislocations. The overlying soft tissues are within purvi l limits. IMPRESSION: No acute abnormality. REPORT SIGNED IN OTHER VENDOR SYSTEM 11/17/2015 Reported By: Pavel Barnd MD CC: Transcribed Date/Time: 11/17/2015 (1210 ) M[employer] Cutter: Printed Date/Time: 10/10/2018 (5541) PAGE 1 Signed Report Performing Organization Address City/State/ZIP Code Phon e Number [facility] documented in this encounter Visit Diagnoses Not on filedocumented in this encounter Care Teams Field Care Advocate Relationship Specialty Start Date End Date Unknown, Provider, PCP - General 02/26/14 06/26/17 documented as of this encounter
--- OUTSIDE RECORDS SUMMARY | 2022-02-03 16:06 | XMS_ITS | Encounter Summary ---
:1980 Author Organization [facility] Address [address] [place] [address] Care Team Providers Name Role Phone Unavailable Primary Care Provider Unavailable Encounter Details Date Type Department Care Team Description 12/13/2006 Results Only [facility] Egan od, MITZI [facility] [address] [place] [phone] (Wo rk) Social History Tobacco Use Types [...] Associated Comments Diagnosis HPV DETECTION, HIGH Routine 12/13/2006 14:00 Resu lts for this RISK TYPES EDT procedure are i n the results section. CYTOPATHOLOGY Routine 12/13/2006 0:00 Results for this EDT procedure are i n the results section. documented in this encounter Results HUMAN PAPILLOMA VIRUS DNA TEST (12/13/2006 14:00 EDT) Specimen Description Cervix, ThinPrep [facility] vial Result Negative for HPV [facility] types 16, 18, 31, 33, 35, 39, 45, 51, 52, 56, 58, 59, and 68. Report Status Final [facility] [id number] Specimen Performing Organization Address City/State/ZIP Code Phon e Number [facility] [address] [place] [address] SERVICES [facility] [address] [place] [address] CYTOPATHOLOGY (12/13/2006 0:00 EDT) Pathology Report: CYTOPATHOLOGY REPORT [facility] Reports generated via electronic interface contain kat ginal data; however they are lacking the format of the original re port. Caution should be taken when reading/interpreting unfo rmatted reports. Name: ? DAELINDSAY SIMS ? Accession #: ? [id number] : ? 1980 (Age: 26) ??F ?Collect Date: ? 11/28 Location: ? [facility] ? Receive Date : ? 12/14/2006 Provider: ?SAVANNAH ROD [facility] Copy to: ? Specimen/Source: ? ThinPrep Pap Test, Cervix/Endocervix, processed on [facility] ThinPrep Imaging System, with manual evaluation Last Menstrual Period: ? 12/03/06 Previous Gynecologic Pathology: ? ASC-US: 02/01 HPV: + 02/01 & 10/03 Treatment History: ? Cervical biopsy: 05/05 acute & chr. cervicitis with re act. epith. changes Other: ? Additional clinical information: 10/03 pap neg HPV + HPVDX - HPV testing requested regardless of diag nosis on current ThinPrep Pap test. ? SPECIMEN ADEQUACY ? Satisfactory for Evaluation - transformation zone component present GENERAL CATEGORIZATION ? Negative for Intraepithelial Lesion or Malignan cy INTERPRETATION ? Shift in pasha present suggestive of bacterial vaginosis. ? Document reviewed and electronically signed by: ? [facility] ? Report Date: ??12/19/2006 13:19 End of Report Specimen Performing Organization Address City/State/ZIP Code Phon e Number [facility] [address] [place] [address] SERVICES [facility] [address] [place] [address] documented in this encounter Visit Diagnoses Not on filedocumented in this encounter
--- OUTSIDE RECORDS SUMMARY | 2022-02-03 16:06 | XMS_ITS | Encounter Summary ---
:1980 Author Organization [facility] Address [address] [place] [address] Care Team Providers Name Role Phone Unavailable Primary Care Provider Unavailable Encounter Details Date Type Department Care Team Description 05/16/2005 Results Only [facility] - Obdulia Pedroza MD [employer] [address] [place] [address] [place] [address] Social History Tobacco Use Types Packs/Day Years [...] Priority Date/Time Associated Diagnosis Comme [facility] SURGICAL PATHOLOGY Routine 05/16/2005 0:00 EST Re sults for this procedure are i n the results section. documented in this encounter Results SURGICAL PATHOLOGY (05/16/2005 0:00 EST) Pathology Report: SURGICAL PATHOLOGY REPORT [facility] Reports generated via electronic interface contain kat ginal data; LAB however they are lacking the format of the original re port. Caution should be taken when reading/interpreting unfo rmatted reports. Name: ? LATOYA JEAN BAPTISTE ELAINA Engle ? Accession #: ? [id number] ? : ? 1980 (Age: 24) ??F ? Collect Date: ? 05/16/2005 ? Location: ? [facility] ? Receive Date: ? 006 ? 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 Final Pathologic Diagnosis: ? Cervix, 1 o'clock, biopsy: - Acute and chronic cervicitis with reactive epithelia l changes. Document reviewed and electronically signed by: NANCY HERNANDEZ MD Report ??Date: 05/19/2005 17:49 By the signature above, the attending physician certif ies that he/she has personally conducted a gross and/or microscopic examin ation of the described specimens and rendered or confirmed the above diagnosi s. Specimen(s) Received: ? CX bx @ 1:00 Clinical History: ? 02/10/05 PAP; ASCUS (+)HPV; LMP: 04/25/05 Gross Description: ? Received in formalin labelled Fl alicja and cx bx at 1 o' clock is a single 0.4 x 0.3 x 0.2 cm curvilinear fragment o f givens-white tissue, submitted entirely in one cassette ??(Dr. Ellis-)/[facility] End of Report Specimen Performing Organization Address City/State/ZIP Code Phon e Number [facility] [address] [place] [address] SERVICES [facility] [address] [place] [address] documented in this encounter Visit Diagnoses Not on filedocumented in this encounter
--- OUTSIDE RECORDS SUMMARY | 2022-02-03 16:06 | XMS_ITS | Encounter Summary ---
:1980 Author Organization [facility] Address [address] [place] [address] Care Team Providers Name Role Phone Unknown, Provider Primary Care Provider Encounter Details Date Type Department Care Team Description 06/25/2016 Historical Results [facility] - Nivia Bui [facility] - [facility] [place] Faye DO [address] [phone] Social History Tobacco Use Types Packs/Day [...] Date/Time Associated Comments Diagnosis LEUKODEPLETED PACKED Routine 06/25/2016 6:49 Resu lts for this CELLS - [facility] EST procedure are i n the results section. documented in this encounter Results LEUKODEPLETED PACKED CELLS - [facility] (06/25/2016 6:49 EST) Specimen Narrative [facility] - 017 0:52 EST [id number] ??AP ?PCLD ? TRANSFUSED ? 0 06/25/16 1754 ?? Performing Organization Address City/State/ZIP Code Phon e Number [facility] [address] [place] [address] 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
--- OUTSIDE RECORDS SUMMARY | 2022-02-03 16:06 | XMS_ITS | Encounter Summary ---
:1980 Author Organization [facility] Address [address] [place] [address] Care Team Providers Name Role Phone Unknown, Provider Primary Care Provider Encounter Details Date Type Department Care Team Description 06/26/2016 Historical Results [facility] - Alo Conway MD Only [facility] [place] [address] [facility] [address] [place] [id number] Social History Tobacco Use Types Packs/Day [...] Date/Time Associated Comments Diagnosis MR LOWER EXTREMITY 06/26/2016 16:40 Resul ts for this EST procedure are i n the results section. MR FOOT W WO CONTRAST 06/26/2016 16:27 Re sults for this RIGHT EST procedure are i n the results section. TRANSTHORACIC ECHO 06/26/2016 8:37 Result s for this (TTE) COMPLETE EST procedure are in the results section. COMPLETE BLOOD COUNT Routine 06/26/2016 6:30 Resu lts for this WITH DIFFERENTIAL EST procedure are in (AUTO) the results section. BASIC METABOLIC PANEL Routine 06/26/2016 6:30 Res ults for this (BMP) EST procedure are i n the results section. documented in this encounter Results MR LOWER EXTREMITY (06/26/2016 16:40 EST) Specimen Narrative [facility] - 06/26/2016 17:00 EST ? EXAM: MAGNETIC RESONANCE IMAGING/LOWER EX EX. D/ (1617) ? CLINICAL INFORMATION: ? right lower leg cellulitis, pelas e include right foot ? LOWER EXTREMITY NO JT.WO/W CON ? Signs and Symptoms/Comments: RIGH T LOWER LEG CELLULITIS, PLEASE ? INCLUDE RIGHT FOOT. 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 ? Alo . ? Comparison: Radiographs on 017. ? Technique: Contrast-enhanced MR o f the right lower leg was performed ? with the following sequences: Cor onal T1, coronal STIR, sagittal T1, ? sagittal STIR, axial T1, axial ST IR, and post gadolinium triplane T1 ? fat-sat. The contralateral left l ower leg was included on the ? [id number] for comparison. ? FINDINGS: ? Bones: No T1 hypointensity or abn ormal enhancement is identified in ? the visible portions of the right tibia or fibula to suggest ? osteomyelitis. No significant bon e marrow edema is present to suggest ? fracture. ? Soft tissues: There is an irregul ar rim-enhancing collection in the ? deep interosseous compartment bet ween the proximal tibial and fibular ? diaphyses (postcontrast coronal T 1 fat-sat image 11, coronal STIR ? image 11, post contrast axial T1 fat-sat image 44). This finding is ? highly suspicious for abscess, me asuring approximately 12 x 3.5 x 2.1 ? cm. The fluid collection tracks a djacent to the posterior tibialis ? myotendinous junction. Of note, c ompression of the neurovascular ? structures cannot be excluded. Il l-defined edema and enhancement are ? also present throughout the remai nder of the deep muscular ? compartments of the calf, particu larly the ankle flexors and soleus ? musculature. Extensive cellulitis is present in the visible calf. ? The contralateral left lower leg is unremarkable.. ? IMPRESSION: ? 1. ??Extensive cellulitis of the RIGHT lower leg with a large ? rim-enhancing collection in the d eep muscular compartment between the ? proximal tibial and fibular diaph yses, highly suspicious for abscess. ? Of note, compression of the adjac ent neurovascular structures cannot ? be excluded. Surgical consultatio n recommended. ? 2. ??Additional abnormal edema an d enhancement in the deep muscular ? compartments of the calf, compati ble with myositis. ? 3. ??No convincing MR evidence of superimposed osteomyelitis. ? 4. ??Extensive cellulitis of the right lower leg. ? PAGE 1 ? Haylee d Report ? (CONTINUED) ? Dr. Wally Dacosta discussed thes e findings with Dr. Alo Conway on ? 06/26/2016 4:51 PM. ? REPORT SIGNED IN OTHER VENDOR SYSTEM 06/26/2016 ?Reported B y: Wally Dacosta MD ? CC: ? Transcribed Date/Time: 06/26/2016 (1700) ? [employer]alth [employer]: ? Printed Date/Time: 10/12/2018 (12 23) ? PAGE 2 ? Haylee d Report ? Procedure Note Wally Dacosta MD - 03/05/2019 EXAM: MAGNETIC RESONANCE IMAGING/LOWER EX EX. D/ (1617) CLINICAL INFORMATION: right lower leg cellulitis, pelase incl ude right foot LOWER EXTREMITY NO JT.WO/W CON Signs and Symptoms/Comments: RIGHT LOWE R LEG CELLULITIS, PLEASE INCLUDE RIGHT FOOT. Additional history of injected drug abuse per Dr. Prajapati . Comparison: Radiographs on 06/24/2016. Technique: Contrast-enhanced MR of the right lower leg was performed with the following sequences: Coronal T 1, coronal STIR, sagittal T1, sagittal STIR, axial T1, axial STIR, an d post gadolinium triplane T1 fat-sat. The contralateral left lower l eg was included on the [id number] for comparison. FINDINGS: Bones: No T1 hypointensity or abnormal enhancement is identified in the visible portions of the right tibia or fibula to suggest osteomyelitis. No significant bone karen ow edema is present to suggest fracture. Soft tissues: There is an irregular rim -enhancing collection in the deep interosseous compartment between t he proximal tibial and fibular diaphyses (postcontrast coronal T1 fat- sat image 11, coronal STIR image 11, post contrast axial T1 fat-sa t image 44). This finding is highly suspicious for abscess, measurin g approximately 12 x 3.5 x 2.1 cm. The fluid collection tracks adjacen t to the posterior tibialis myotendinous junction. Of note, andrés usha of the neurovascular structures cannot be excluded. Ill-defi ruth edema and enhancement are also present throughout the remainder o f the deep muscular compartments of the calf, particularly the ankle flexors and soleus musculature. Extensive cellulitis is pr esent in the visible calf. The contralateral left lower leg is unr emarkable.. IMPRESSION: 1. Extensive cellulitis of the RIGHT lo wer leg with a large rim-enhancing collection in the deep mu scular compartment between the proximal tibial and fibular diaphyses, highly suspicious for abscess. Of note, compression of the adjacent ne urovascular structures cannot be excluded. Surgical consultation doretha mmended. 2. Additional abnormal edema and enhanc ement in the deep muscular compartments of the calf, compatible wi th myositis. 3. No convincing MR evidence of superim posed osteomyelitis. 4. Extensive cellulitis of the right lo wer leg. PAGE 1 Signed Report (CONTINUED) Dr. Wally Dacosta discussed these find ings with Dr. Alo Conway on 06/26/2016 4:51 PM. REPORT SIGNED IN OTHER VENDOR SYSTEM 06/26/2016 Reported By: Wally Dacosta MD CC: Transcribed Date/Time: 06/26/2016 (5720 ) [employer]alth [employer]: Printed Date/Time: 10/12/2018 (2390) PAGE 2 Signed Report Performing Organization Address City/State/ZIP Code Phon e Number [facility] MR FOOT W WO CONTRAST RIGHT (06/26/2016 16:27 EST) Specimen Narrative [facility] - 06/26/2016 16:43 EST ? EXAM: MAGNETIC RESONANCE IMAGING/FOOT RT ??EX. D/ (1617) ? CLINICAL INFORMATION: ? FOOT RT WO/W CONTRAST ? Signs and Symptoms/Comments: Cell ulitis. Rule out osteomyelitis. ? Comparison: Right foot radiograph s on 06/24/2016. MR right foot on ? 08/19/2014. ? Technique: Contrast-enhanced MR o f the right foot was performed with ? the following sequences: Sagittal T1, sagittal STIR, coronal T1, ? coronal STIR, axial T1, axial STI R, and post gadolinium triplane T1 ? fat-sat. ? FINDINGS: ? Bones: A small focus of T1 hypoin tense signal and associated ? enhancement in the anterior calca neus is suspicious for osteomyelitis ? given the history (sagittal image 7-8). The differential includes ? reactive subchondral degenerative changes. No definite additional ? sites of osteomyelitis are identi fied. No acute fracture is visible. ? Soft tissues: There is an irregul ar rim-enhancing collection along ? the plantar aspect of the forefoo t, deep to the 1st-4th metatarsals ? (post contrast axial T1 fat-sat i mage 9, coronal T1 fat-sat image 18, ? coronal image 11). This finding i s highly suspicious for abscess ? given the history. Although the f luid tracks around the adjacent ? metatarsal shafts, no definite un derlying marrow signal changes are ? visible to confirm superimposed o steomyelitis in the metatarsals. ? Severe diffuse cellulitis is pres ent about the visible ankle and ? foot. ? IMPRESSION: ? 1. ??Extensive cellulitis with a large rim-enhancing collection along ? the plantar aspect of the forefoo t, highly suspicious for abscess. ? Surgical consultation recommended . ? 2. ??Small focus of abnormal sign al and enhancement in the anterior ? calcaneus, suspicious for osteomy elitis given the history. ? Differential includes reactive de leon bchondral degenerative changes. No ? definite abnormal marrow signal i dentified in the metatarsals to ? suggest osteomyelitis in the fore foot. ? 3. ??Extensive cellulitis about t he ankle and foot. ? PAGE 1 ? Haylee d Report ? (CONTINUED) ? Dr. Wally Dacosta discussed thes e findings with Dr. Alo Conway on ? 06/26/2016 4:38 PM. ? REPORT SIGNED IN OTHER VENDOR SYSTEM 06/26/2016 ?Reported B y: Wally Dacosta MD ? CC: ? Transcribed Date/Time: 06/26/2016 (1643) ? [employer]alth [employer]: ? Printed Date/Time: 10/12/2018 (12 23) ? PAGE 2 ? Haylee d Report ? Procedure Note Wally Dacosta MD - 03/05/2019 EXAM: MAGNETIC RESONANCE IMAGING/FOOT R T EX. D/ (1617) CLINICAL INFORMATION: FOOT RT WO/W CONTRAST Signs and Symptoms/Comments: Cellulitis . Rule out osteomyelitis. Comparison: Right foot radiographs on . MR right foot on 08/19/2014. Technique: Contrast-enhanced MR of the right foot was performed with the following sequences: Sagittal T1, s agittal STIR, coronal T1, coronal STIR, axial T1, axial STIR, and post gadolinium triplane T1 fat-sat. FINDINGS: Bones: A small focus of T1 hypointense signal and associated enhancement in the anterior calcaneus i s suspicious for osteomyelitis given the history (sagittal image 7-8). The differential includes reactive subchondral degenerative leahy es. No definite additional sites of osteomyelitis are identified. No acute fracture is visible. Soft tissues: There is an irregular rim -enhancing collection along the plantar aspect of the forefoot, nancy p to the 1st-4th metatarsals (post contrast axial T1 fat-sat image 9 , coronal T1 fat-sat image 18, coronal image 11). This finding is high ly suspicious for abscess given the history. Although the fluid t racks around the adjacent metatarsal shafts, no definite underlyi ng marrow signal changes are visible to confirm superimposed osteomy elitis in the metatarsals. Severe diffuse cellulitis is present ab out the visible ankle and foot. IMPRESSION: 1. Extensive cellulitis with a large ri m-enhancing collection along the plantar aspect of the forefoot, hig hly suspicious for abscess. Surgical consultation recommended. 2. Small focus of abnormal signal and e nhancement in the anterior calcaneus, suspicious for osteomyelitis given the history. Differential includes reactive subchond ral degenerative changes. No definite abnormal marrow signal identif ied in the metatarsals to suggest osteomyelitis in the forefoot. 3. Extensive cellulitis about the ankle and foot. PAGE 1 Signed Report (CONTINUED) Dr. Wally Dacosta discussed these find ings with Dr. Alo Conway on 06/26/2016 4:38 PM. REPORT SIGNED IN OTHER VENDOR SYSTEM 06/26/2016 Reported By: Wally Dacosta MD CC: Transcribed Date/Time: 06/26/2016 (8623 ) [employer]alth Management: Printed Date/Time: 10/12/2018 (7503) PAGE 2 Signed Report Performing Organization Address City/State/ZIP Code Phon e Number [facility] TRANSTHORACIC ECHO (TTE) COMPLETE (06/26/2016 8:37 EST) Specimen Narrative [facility] C[facility] - 06/26/2016 8:37 EST ?[facility] ?[address] [place] [address] ? [id number] ? E C H O C A R D I O G R A M ? R E P O R T NAME: LINDSAY JEAN BAPTISTE ?: 84 ? LOCATION: 2S ? TELEPHONE: [phone] ?MR#: [id number] ? *[facility]* *[facility]* [address] [place] [address] Date of study: 06/26/2016 Transthoracic Echocardiography M-mode, complete 2D, complete spectral D oppler, and color Doppler *STUDY CONCLUSIONS* Impressions: ??No evidence of endocardit is, however, sensitivity for this finding on TTE is <50%. Summary: 1. Left ventricle: The cavity size was n ormal. Wall thickness was ?? increased in a pattern of mild LVH. Systolic function was ?? hyperdynamic. The estimated ejection fraction was 65-70%. Wall motion ?? was normal; there were no regional w all motion abnormalities. 2. Right ventricle: The cavity size was normal. Wall thickness was ?? normal. Systolic function was normal . *PATIENT PRESENTATION* Height: ? 162.6cm ((64in) ) S/D Pressure: Weight: ? 53.1kg ((116.8lb) ) BSA: ?1.55m S 2 Test start time: ??08:37 AM. Test stop time: ??09:14 AM. ORDERING ? Nivia Bui REFERRING ?Nivia Bui CONTINUOUS MINING MACHINE COAL MINER ??Shea Sheppard PERFORMING [place] [facility] [place]EDURE DATA* Procedure information: ??This study was interpreted by [facility]. Pertinent images and digital data are ar chived for permanent storage and are available for subsequent review. Com parison was made to the study of September 2014. ??Study status: ??Routine. Tr ansthoracic echocardiography. M-mode, complete 2D, complete spectral D oppler, and color Doppler. A Transthoracic Echocardiogram was perform ed. Scanning was performed from ?[facility] ?[address] [place], [place] [address] ? [id number] ? E C H O C A R D I O G R A M ? R E P O R T NAME: LINDSAY JEAN BAPTISTE ?: 84 ? LOCATION: 2S ? TELEPHONE: [phone] ?MR#: [id number] ? the parasternal, apical, subcostal, and suprasternal notch acoustic windows. Images were obtained using a Qloud IE33 1 cardiac ultrasound machine. Image quality was fair. ??Study completion: ??The patient tolerated the procedure well. *INDICATIONS AND HISTORY* Indications: ??POSTITIVE BLOOD CULTURES *CARDIAC ANATOMY* Left ventricle: ??The cavity size was no rmal. Wall thickness was increased in a pattern of mild LVH. Syst olic function was hyperdynamic. The estimated ejection fraction was 65-7 0%. Wall motion was normal; there were no regional wall motion abnor malities. Aortic valve: ?? Trileaflet; normal thic kness leaflets. Mobility was not restricted. ??Doppler: ??Transvalvular v elocity was within the normal range. There was no stenosis. There was no regurgitation. Aorta: ??Aortic root: The aortic root wa s normal in size. Ascending aorta: The ascending aorta was normal in size. Mitral valve: ?? Mildly thickened leafle ts. Mobility was not restricted. Doppler: ??Transvalvular velocity was wi thin the normal range. There was no evidence for stenosis. There was triv ial regurgitation. ?Peak gradient (D): 3.8mm Hg. Left atrium: ??The atrium was normal in size. Right ventricle: ??The cavity size was n ormal. Wall thickness was normal. Systolic function was normal. Pulmonic valve: ?? Poorly visualized. ?? Doppler: ??Transvalvular velocity was within the normal range. There was n o evidence for stenosis. There was no regurgitation. Tricuspid valve: ?? Structurally normal valve. ?Doppler: ??Transvalvular velocity was within the normal range. Th ere was no evidence for stenosis. There was mild regurgitation. Pulmonary artery: ?? Poorly visualized. Pulmonary systolic pressure was within the normal range. Right atrium: ??The atrium was normal in size. Pericardium: ??There was no pericardial effusion. Systemic veins: Inferior vena cava: The vessel was purvi l in size. The respirophasic diameter changes were in the normal rang e (greater than or equal to 50%), consistent with normal central rishabh ous pressure. Baseline ECG: ?? Normal sinus rhythm. Measurements Left ventricle ? Value ?10/05/2014 Reference LV ID, ED, PLAX ?4.2 ?? cm ? 3.5 - 6.0 LV ID, ES, PLAX ?2.6 ?? cm ? 2.1 - 4.0 ?[facility] ?[facility] [address] [place], [place] [address] ? [id number] ? E C H O C A R D I O G R A M ? R E P O R T NAME: LINDSAY JEAN BAPTISTE ?: 84 ? LOCATION: 2S ? TELEPHONE: [phone] ?MR#: [id number] ? LV PW thickness, ED, PLAX ?1.1 ?? cm ? LV end-diastolic volume, 1-p ? 22 ?ml ? A2C LV ejection fraction, 1-p ?62 ?% ? A2C LV end-diastolic volume, 1-p ? 19 ?ml ? 85 ? A4C LV ejection fraction, 1-p ?67 ?% ?71 ? A4C LV e', lateral ? 0.137 m/sec ??0.09 ? LV E/e', lateral ? 7 ?12 ? LV e', medial ?0.089 m/sec ?? LV E/e', medial ?11 ? LV e', average ? 0.113 m/sec ?? LV E/e', average ? 9 ? Ventricular septum ? Value ?10/05/2014 Reference IVS thickness, ED, PLAX ?0.8 ?? cm ? Aorta ?Value ?10/05/2014 Reference Aortic root ID ? 2.8 ?? cm ? Ascending aorta ID, A-P ?2.8 ?? cm ? Ascending aorta ID, A-P, S ? 2.8 ?? cm ? 3.3 ? Left atrium ?Value ?10/05/2014 Reference LA area, ES, A4C ? 21.1 ??cm S 2 ?? 21.7 ? 8.8 - 23.4 LA area, ES, A2C ? 19 ?cm S 2 ?? LA volume, ES, 2-p ? 59 ?ml ? LA volume/bsa, ES, 2-p ? 38 ?ml/m S 2 Mitral valve ? Value ?10/05/2014 Reference Mitral E-wave peak velocity ?0.97 ??m/sec ??0.88 ? Mitral A-wave peak velocity ?0.9 ?? m/sec ??0.68 ? Mitral deceleration time ? 208 ?? ms ? 174 ?150 - 230 Mitral peak gradient, D ?3.8 ?? mm Hg ??3.1 ? Mitral E/A ratio, peak ? 1.1 ?1.8 ? Right atrium ? Value ?10/05/2014 Reference RA area, ES, A4C ? 16 ?cm S 2 ?? 17.4 ? 8.3 - 19.5 Legend: (L) ??and ??(H) ??donal values outside sp ecified reference range. I have personally reviewed the images an d have reviewed and edited the reported findings. Electronically signed by Fany Garg 06/26/2016 17:20 Procedure Note Fany Garg MD - 02/16/2019 [facility] [address] [place] [id number] E C H O C A R D I O G R A M R E P O R T NAME: LINDSAY JEAN BAPTISTE : 84 LOCATION: 2S TELEPHONE: [phone] MR#: [id number] [facility] T#: [id number] *[facility]* *[facility]* [address] [place] [address] Date of study: 06/26/2016 Transthoracic Echocardiography M-mode, complete 2D, complete spectral D oppler, and color Doppler *STUDY CONCLUSIONS* Impressions: No evidence of endocarditis , however, sensitivity for this finding on TTE is <50%. Summary: 1. Left ventricle: The cavity size was n ormal. Wall thickness was increased in a pattern of mild LVH. Sys tolic function was hyperdynamic. The estimated ejection fr action was 65-70%. Wall motion was normal; there were no regional wall motion abnormalities. 2. Right ventricle: The cavity size was normal. Wall thickness was normal. Systolic function was normal. *PATIENT PRESENTATION* Height: 162.6cm ((64in) ) S/D Pressure: Weight: 53.1kg ((116.8lb) ) BSA: 1.55m S 2 Test start time: 08:37 AM. Test stop time: 09:14 AM. ORDERING Nivia Bui Beth CONTINUOUS MINING MACHINE COAL MINER Shea Sheppard PERFORMING [facility] *PROCEDURE DATA* Procedure information: This study was in terpreted by [facility]. Pertinent images and digital data are ar chived for permanent storage and are available for subsequent review. Com parison was made to the study of September 2014. Study status: Routine. Transt horacic echocardiography. M-mode, complete 2D, complete spectral D oppler, and color Doppler. A Transthoracic Echocardiogram was perform ed. Scanning was performed from [facility] [address] [place], [place] [id number] E C H O C A R D I O G R A M R E P O R T NAME: LINDSAY JEAN BAPTISTE : 84 LOCATION: 2S TELEPHONE: [phone] MR#: [id number] [facility] T#: [id number] the parasternal, apical, subcostal, and suprasternal notch acoustic windows. Images were obtained using a Qloud IE33 1 cardiac ultrasound machine. Image quality was fair. Study c ompletion: The patient tolerated the procedure well. *INDICATIONS AND HISTORY* Indications: POSTITIVE BLOOD CULTURES *CARDIAC ANATOMY* Left ventricle: The cavity size was norm al. Wall thickness was increased in a pattern of mild LVH. Syst olic function was hyperdynamic. The estimated ejection fraction was 65-7 0%. Wall motion was normal; there were no regional wall motion abnor malities. Aortic valve: Trileaflet; normal thickne ss leaflets. Mobility was not restricted. Doppler: Transvalvular veloc ity was within the normal range. There was no stenosis. There was no regurgitation. Aorta: Aortic root: The aortic root was normal in size. Ascending aorta: The ascending aorta was normal in size. Mitral valve: Mildly thickened leaflets. Mobility was not restricted. Doppler: Transvalvular velocity was with in the normal range. There was no evidence for stenosis. There was triv ial regurgitation. Peak gradient (D): 3.8mm Hg. Left atrium: The atrium was normal in si ze. Right ventricle: The cavity size was nor mal. Wall thickness was normal. Systolic function was normal. Pulmonic valve: Poorly visualized. Doppl er: Transvalvular velocity was within the normal range. There was n o evidence for stenosis. There was no regurgitation. Tricuspid valve: Structurally normal lili ve. Doppler: Transvalvular velocity was within the normal range. Th ere was no evidence for stenosis. There was mild regurgitation. Pulmonary artery: Poorly visualized. Pul monary systolic pressure was within the normal range. Right atrium: The atrium was normal in s ize. Pericardium: There was no pericardial ef fusion. Systemic veins: Inferior vena cava: The vessel was purvi l in size. The respirophasic diameter changes were in the normal rang e (greater than or equal to 50%), consistent with normal central rishabh ous pressure. Baseline ECG: Normal sinus rhythm. Measurements Left ventricle Value 10/05/2014 Referen ce LV ID, ED, PLAX 4.2 cm 3.5 - 6.0 LV ID, ES, PLAX 2.6 cm 2.1 - 4.0 [facility] [address] [place], [place] [address] [id number] E C H O C A R D I O G R A M R E P O R T NAME: LINDSAY JEAN BAPTISTE : 84 LOCATION: 2S TELEPHONE: [phone] MR#: [id number] [facility] T#: [id number] LV PW thickness, ED, PLAX 1.1 cm ------ ---- LV end-diastolic volume, 1-p 22 ml ---- ------ A2C LV ejection fraction, 1-p 62 % -------- -- A2C LV end-diastolic volume, 1-p 19 ml 85 - --------- A4C LV ejection fraction, 1-p 67 % 71 ----- ----- A4C LV e', lateral 0.137 m/sec 0.09 ------- --- LV E/e', lateral 7 12 LV e', medial 0.089 m/sec -- -------- LV E/e', medial 11 --------- - LV e', average 0.113 m/sec - --------- LV E/e', average 9 --------- - Ventricular septum Value 10/05/2014 Ref erence IVS thickness, ED, PLAX 0.8 cm -------- -- Aorta Value 10/05/2014 Reference Aortic root ID 2.8 cm ------ ---- Ascending aorta ID, A-P 2.8 cm -------- -- Ascending aorta ID, A-P, S 2.8 cm 3.3 - --------- Left atrium Value 10/05/2014 Reference LA area, ES, A4C 21.1 cm S 2 21.7 8.8 - 23.4 LA area, ES, A2C 19 cm S 2 - --------- LA volume, ES, 2-p 59 ml --- ------- LA volume/bsa, ES, 2-p 38 ml/m S 2 ---- ------ Mitral valve Value 10/05/2014 Reference Mitral E-wave peak velocity 0.97 m/sec 0.88 Mitral A-wave peak velocity 0.9 m/sec 0 .68 Mitral deceleration time 208 ms 174 150 - 230 Mitral peak gradient, D 3.8 mm Hg 3.1 - --------- Mitral E/A ratio, peak 1.1 1.8 -------- -- Right atrium Value 10/05/2014 Reference RA area, ES, A4C 16 cm S 2 17.4 8.3 - 1 9.5 Legend: (L) and (H) donal values outside specifie d reference range. I have personally reviewed the images an d have reviewed and edited the reported findings. Electronically signed by Fany Garg 06/26/2016 17:20 Performing Organization Address City/State/ZIP Code Phon e Number [facility] (ABNORMAL) BASIC METABOLIC PANEL (BMP) (06/26/2016 6:30 EST) [place] [facility] [place] 7 - 18 mg/dL [facility] [place]UM [place] [facility] [place] 7.8 (L) 8.5 - 10.1 [facility] mg/dL [facility] Chloride 106 98 - 107 mEq/L [facility] CO2 Total 27 21 - 32 mEq/L [facility] [facility] CREATININE 0.87 0.5 - 1.3 [facility] mg/dL [facility] eGFR >60 [facility] Comment: [facility] Chronic renal impairment is defined as GFR <60 Multiply result by 1.210 for patients . eGFR calculated using the IDMS-traceable MDRD Study Equation. ??(effective 03/02/2014) Anion Gap 8 5 - 15 [facility] [place] [facility] [place] 70 - 100 mg/dL [facility] Potassium 3.8 3.5 - 5.0 [facility] mEq/L [facility] Sodium 141 135 - 145 [facility] mEq/L [facility] Specimen Performing Organization Address City/State/ZIP Code Phon e Number [facility] [address] [place] [address] [facility] (ABNORMAL) COMPLETE BLOOD COUNT WITH DIFFERENTIAL (AUTO) (06/26/2016 6:30 EST) ABSOLUTE NEUTROPHIL 19.07 (H) 1.7 - 7.0 [facility] COUN - [facility] 10e3/ul [facility] BASO # - [facility] 0.03 0.0 - 0.3 [facility] 10e3/uL [facility] BASO % - [facility] 0 0 - 2 % [facility] EOS # - CV 0.32 0.05 - 0.5 [facility] 10e3/uL [facility] EOS % - [facility] 2 0 - 5 % [facility] GRAN % - [facility] 87 (H) 40 - 80 % [facility] HEMAT[place] [facility] [place] 23.1 (L) 34.0 - 47.0 % [facility] HEMOGLOBIN [place] [facility] [place] 7.1 (L) 11.2 - 15.7 [facility] g/dl [facility] IG# - [facility] 0.14 (H) 0 - 0.07 [facility] 10e3/uL [facility] IG% - [facility] 0.6 0 - 0.9 % [facility] LYMPH # - [facility] 1.29 0.9 - 2.9 [facility] 10e3/uL [facility] LYMPH% - [facility] 6 (L) 20 - 40 % [facility] MEAN CORPUSCULAR HGB 24.1 (L) 26 - 34 pg [facility] MED - [facility] MEAN CORPUSCULAR HGB 30.7 (L) 31 - 36 g/dL [facility] CONC - [facility] MEAN CELL VOLUME - 78.3 77 - 100 fl [facility] MONO # - [facility] 1.04 (H) 0.3 - 0.9 [facility] 10e3/uL [facility] MONO% - [facility] 5 0 - 12 % [facility] PLATELET COUNT 310 150 - 400 [facility] 10e3/ul [facility] RED BLOOD COUNT - 2.95 (L) 3.8 - 5.2 [facility] 10e6/ul [facility] RED CELL DISTRI WIDTH 18.9 (H) 11.8 - 15.6 % [facility] ME D - [facility] [place] [facility] WHITE BLOOD COUNT - 21.9 (H) 3.5 - 10.5 [facility] 10e3/ul [facility] LAB Specimen Performing Organization Address City/State/ZIP Code Phon e Number [facility] [address] LAB documented in this encounter Visit Diagnoses Not on filedocumented in this encounter Care Teams Stoner Out Relationship Specialty Start Date End Date Unknown, Provider, PCP - General 02/26/14 06/26/17 documented as of this encounter
--- OUTSIDE RECORDS SUMMARY | 2022-02-03 16:06 | XMS_ITS | Encounter Summary ---
:1980 Author Organization [facility] Address [address] [place] [address] Care Team Providers Name Role Phone Shruthi Huang JORGE Primary Care Provider Encounter Details Date Type Department Care Team Description 03/08/2012 Hospital Encounter [facility] Unknown, Anton river MD Neurophysiology - [facility] Sourav Jain MD [address] [place] [address] [address] [place] [address] [place] MD [place] [address] [place] [address] Social History Tobacco Use Types [...] Code Departure Means Destination Home or Self Intermediate documented in this encounter Procedure Notes [employer] DEVELOPER, SCAN 2 - 03/11/2012 1115 ESTAssociated Order(s): ELECTROMYOGRAM - SCANNED Sourav Licea MD - 03/08/2012 1301 EST [facility] ELECTRODIAGNOSTIC MEDICINE CONSULTATION SERVICE DATE: 03/08/2012 HISTORY OF PRESENT ILLNESS: Ms Odonnell is a 31-year-old woman who has experienced left hand numbnessand weakness of 3 years' duration. She reports a tourniquet injury to the upper arm approximately three years ago. She awoke the following the tourniquet placement with numb hand with difficulty extending fingers, difficulty flexing fingers and manipulating objects with the hand. She has been left with residual numbness of hand and inability to use the hand to function throughout the day. There is noassociated neck pain or armpit pain. She denies associated continued injury of nerves in the left arm. 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 DIRECTED CLINICAL EXAMINATION: This is an average weight woman who is in no acute distress. There is a positive Tinel sign over the median nerve at the level of the brachial pulse in the forearm, as well as a Tinel's sign over the ulnar nerve at the elbow. She has clear tract burns and bruising over the medial forearm on that side. Motor exam: Prominent atrophy of left hand with flexion posture of left fingers. Normal bulk of forearm and upper arm. Formal strength testing (left/right): Neck flexion 5, shoulder forward flexion 5/5, elbow flexion 5/5, elbow extension 5/5, elbow pronation 4/5, elbow supination 5/5, wrist flexion 4/5, wrist extension5/5, finger extension 4/5, finger spread 1/5, abductor pollicis brevis 1/5, deep finger flexors 2/5.Normal tone and bulk of the bilateral lower extremities and normal strength of the lower extremities. Reflexes: 2+ bilateral biceps, 2+ bilateral triceps. Absent left brachioradialis, present right brachioradialis, 2+ bilateral knee jerks. Sensory: Diminished pin to light touch and temperature on the palmar surface of digits 1 through 5, as well as the dorsal ulnar cutaneous distribution. There is preserved normal sensation in the forearm and over the anatomical snuff box in the distribution of the radial sensory nerve. For wave forms and values of the EMG nerve conduction study, please refer to the accompanying scanned document. ELECTRODIAGNOSTIC IMPRESSION: This is an abnormal study. There is electrodiagnostic evidence of active and chronic denervation in the distribution of the left median and ulnar nerves at the level of the elbow. In the median nerve it is at or before the takeoff of the left pronator teres and in the left ulnar nerve it is at or before the level of the left flexor carpi ulnaris. This is manifest by: 1. Unevokable left median and ulnar sensory nerve action potentials. 2. Unevokable left ulnar compound motor action potential amplitude. 3. Low amplitude left median motor compound motor action potential amplitude with a mildly prolongedleft median distal latency and partial conduction block in the forearm. 4. Normal left radial motor and sensory nerve conduction study. 5. Active denervation and chronic reinnervation in the left first dorsal interosseous, abductor pollicis brevis, flexor carpi radialis, pronator teres, flexor digitorum profundus 4 and 5, and flexor carpi ulnaris on needle EMG. 6. Normal needle EMG of the left extensor indices proprius, biceps, and triceps. Together these findings localized to dysfunction in the median nerve at or proximal to the level of the left pronator teres and the left ulnar nerve at or proximal to the level of the left flexor carpiulnaris. The presence of conduction block in the left median nerve in the forearm, as well as active denervation, could be consistent with either incomplete reinnervation or ongoing active denervation.MRI of the elbox to evaluate for ongoing injury to the median and ulnar nerves may be helpful. Electronically Signed by Sourav Jain MD 03/11/2012 08:22 Sourav Jain MD - Sourav Jain MD P - JV Job ID: SM Doc ID: [id number] Ext Doc ID: [id number] cc: MITZI Coppola DMINISTRATOR, SCAN 2 - 03/08/2012 0955 ESTAssociated Order(s): ORDERS - SCANNED documented in this encounter Plan of Treatment Not on filedocumented as of this encounter Procedures Procedure Name Priority Date/Time Associated Comments Diagnosis ELECTROMYOGRAM - 03/11/2012 11:15 Results for this SCANNED EST procedure are i n the results section. ORDERS - SCANNED 03/08/2012 9:55 Results for this EST procedure are i n the results section. documented in this encounter Results ELECTROMYOGRAM - SCANNED (03/11/2012 11:15 EST) Specimen Narrative 03/11/2012 11:15 EST Procedure Note [employer], SCAN 2 - 03/11/2012 11:15 EST ORDERS - SCANNED (03/08/2012 9:55 EST) Specimen Narrative 03/08/2012 9:55 EST Procedure Note [employer]OPER, SCAN 2 - 03/08/2012 9:55 EST documented in this encounter Visit Diagnoses Not on filedocumented in this encounter Care Teams Photofinishing Laboratory Worker Relationship Specialty Start Date End Date Shruthi Huang APRN PCP - General 02/08/12 02/25/[address] [place] [address] [address] [place] [address] documented as of this encounter
[2022-02-03 16:17] LABS: HCT 25.4 % (36.0-46.0); HGB 7.5 g/dL (11.2-15.7); MCH 21.9 pg (27.0-33.0); MCHC 29.5 % (32.0-36.0); MCV 74 fL (80-95); MPV 11.3 fL (8.0-11.0); Platelet Count 147 10^3/uL (130-400); RBC 3.43 10^6/uL (3.93-5.22); RDW 18.5 % (11.7-14.6); RDW-SD 49.5 fL; WBC 11.23 10^3/uL (4.4-10.8)
[2022-02-03 17:07] LABS: Absolute Eosinophil Count 0.11 10^3/uL (0.0-0.7); Absolute Lymphocyte Count 0.56 10^3/uL (1.2-3.4); Absolute Monocyte Count 0.67 10^3/uL (0.1-0.8); Absolute Neutrophil Count 9.88 10^3/uL (1.2-6.7); Anisocytosis 1+; Bands % 5; Diff Comment Manual Differential
[2022-02-03 17:08] LABS: Hypochromasia 2+; Microcytosis 2+
[2022-02-03 17:29] LABS: Source Nasal/Nares
[2022-02-03 17:53] LABS: ALT 18 U/L (14-59); AST 22 U/L (15-37); Albumin 2.5 g/dL (3.4-5.0); Alkaline Phosphatase 140 U/L (46-116); Anion Gap 9.2 mmol/L (3-11); BUN 22 mg/dL (7-18); Bilirubin, Total 0.5 mg/dL (0.2-1.0); CO2 25.8 mmol/L (21.0-32.0); CREATININE 1.4 mg/dL (0.55-1.02); Calcium 8.5 mg/dL (8.5-10.1); Chloride 102 mmol/L (98-107); Estimated GFR 49.08 (mL/min/1.73m2); Glucose 94 mg/dL (74-106); Sodium 137 mmol/L (136-145); Total Protein 7.2 g/dL (6.4-8.2)
[2022-02-03 18:03] LABS: COVID-19 PCR Negative (Negative)
[2022-02-03 18:03] LABS: Potassium 2.5 mmol/L (3.5-5.1)
--- NOTE | 2022-02-03 18:21 | DI.VRAD_ITS ---
PROCEDURE INFORMATION: Exam: XR Chest Exam date and time: 02/03/2022 5:37 PM Age: 41 years old Clinical indication: Cough; Additional info: Cough, fever TECHNIQUE: Imaging protocol: Radiologic exam of the chest. Views: 1 view. COMPARISON: XR PORTABLE CHEST AP POST LINE 04/22/2021 8:59 AM FINDINGS: Lungs: There is new mild central peribronchial thickening. There is new minimal scarring/subsegmental atelectasis at the right mid lung. There is new focal oblong density at the left lateral mid-lower lung which appears to represent confluence of osseous shadows, but it is difficult to exclude new focal airspace opacity in this region. There is no pulmonary vascular congestion. Pleural spaces: There are no pleural effusions present. There is no evidence of pneumothorax. Heart/Mediastinum: Heart size is near the upper limits of normal. Vasculature: The prior right IJ line has been removed. Bones/joints: There may be minimal midthoracic dextroscoliosis. No acute fractures are identified. IMPRESSION: 1. New mild central peribronchial thickening suggesting bronchitis. Recommend clinical correlation. 2. New focal oblong density at the lateral mid-lower left lung, suggesting confluence of osseous shadows, but new focal mild pneumonia in this region is difficult to exclude. Recommend clinical correlation and follow-up. Dictated and Authenticated by: Sal Billings MD. Ordering:KAMALA Cornell MD
[2022-02-03] MEDS: Normal Saline 1,000 ML 1000 ML IV (18:49)
[2022-02-03] MEDS: cefTRIAXone 1 GM/50 ML BAG IVPB (18:51)
--- NOTE | 2022-02-03 19:08 | DI.VRAD_ITS ---
PROCEDURE INFORMATION: Exam: CT Abdomen And Pelvis Without Contrast Exam date and time: 02/03/2022 6:40 PM Age: 41 years old Clinical indication: Other: L groin wound; Abscess? Fistulized vessel? 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 Radiation optimization: All CT scans at this facility use at least one of these dose optimization techniques: automated exposure control; mA and/or kV adjustment per patient size (includes targeted exams where dose is matched to clinical indication); or iterative reconstruction. COMPARISON: XR PORTABLE CHEST AP 02/03/2022 5:37 PM FINDINGS: Lungs: There is mild atelectasis within the posterior lung bases. Liver: Normal. No mass. Gallbladder and bile ducts: Normal. No calcified stones. No ductal dilation. Pancreas: Normal. No ductal dilation. Spleen: The spleen has a length of 13 cm consistent with mild splenomegaly. Adrenal glands: Normal. No mass. Kidneys and ureters: No renal or ureteral stones are identified. There is no hydronephrosis or hydroureter. Stomach and bowel: There is a moderate to large amount of stool throughout the colon. There is no evidence for bowel obstruction or inflammation. Appendix: No evidence of appendicitis. Intraperitoneal space: There is no free intraperitoneal air. There is no evidence of free intraperitoneal fluid. Vasculature: There appears to be a vascular stent within the right internal iliac artery extending inferiorly into the medial right thigh, terminating in the region the right superficial femoral artery, only partially imaged on this exam. Lymph nodes: There are multiple mildly enlarged bilateral inguinal lymph nodes, left greater than right, the largest measuring 2.1 cm. Urinary bladder: No bladder stones are identified. Reproductive: Unremarkable as visualized. 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 There is moderate to severe disc space narrowing at L4-L5 with erosive osseous changes of the adjacent endplates with surrounding sclerosis. Cannot exclude discitis with adjacent osteomyelitis on this exam. Soft tissues: There is a focal oblong region of soft tissue density within the fat in the left groin region measuring 3.5 x 5.6 cm in axial dimensions, as seen on axial image 64, series 2 and 3.5 cm in craniocaudal dimension, as seen on sagittal image 40, series 4. Findings suggest a hyperdense collection such as hematoma. The posterior aspect of this collection involves the left common femoral artery and vein. The anterior aspect of the collection extends to the anterior skin surface. There is mild surrounding fat stranding and skin thickening which could reflect mild cellulitis. IMPRESSION: 1. 3.5 x 5.6 x 3.5 cm focal region of soft tissue density within the subcutaneous fat in the left groin region, as described above. Findings suggest hematoma. The posterior aspect involves the left common femoral vessels. Cannot exclude pseudoaneurysm on this exam. Further evaluation with CT angiogram or ultrasound could be obtained as clinically indicated. 2. Mild inguinal adenopathy, left greater than right, likely reactive. There may be mild cellulitis in the left groin region, as described above. 3. Narrowing of the L4-L5 disc space with surrounding osseous erosive and sclerotic changes within the adjacent vertebra, as described above. Cannot exclude discitis with focal osteomyelitis on this exam. Recommend clinical correlation. Further evaluation with lumbar spine MRI could be obtained. 4. Mild splenomegaly. Dictated and Authenticated by: Sal Billings MD. Ordering:KAMALA Cornell MD
[2022-02-03] MEDS: AZITHROMYCIN 500 MG in Normal Saline 250 ML 250 MG IVPB (19:47)
[2022-02-03 20:08] LABS: Bilirubin Negative (Negative); Blood Large (Negative); Clarity Sl Cloudy (Clear); Glucose Negative (Negative); Ketones Negative (Negative); Leukocyte Esterase Large (Negative); Nitrite Negative (Negative)
[2022-02-03 20:17] LABS: Bacteria Many HPF (Negative); C & S Indicated? Yes; Casts Negative LPF (Negative); Crystals Negative HPF (Negative); Epithelial Cells Few HPF (Negative); Mucus Negative (Negative); WBC >50 HPF (0-5)
[2022-02-03] MEDS: POTASSIUM CHLORIDE 20 MEQ/100 ML BAG 50 MEQ IVPB (21:24)
== END 2022-02-03 21:22 | disposition short-term general hospital (02) ==
PROVIDERS: Emergency Provider Emergency Medicine; PCP Nurse Practitioner
DX: S31.104A Unspecified open wound of abdominal wall, left lower quadrant without penetration into peritoneal cavity, initial encounter (principal); X58.XXXA Exposure to other specified factors, initial encounter; D64.9 Anemia, unspecified; N39.0 Urinary tract infection, site not specified; I95.9 Hypotension, unspecified; E87.6 Hypokalemia; J18.9 Pneumonia, unspecified organism; R00.0 Tachycardia, unspecified; Z20.822 Contact with and (suspected) exposure to COVID-19
CPT/HCPCS: 36415; 80053; 81025; 87040; 87077; 87635; 96361; 96365; 96366; 96368; 99284; 71045; 74176; 81003; 81015; 85025; 87086; 87186; J0456; J0696; J3480

== ENCOUNTER 2022-05-09 15:42 | Inpatient (IN) | payer MEDICARE, MEDICAID, SELFPAY ==
[2022-05-09] VITALS (7 sets, daily range): BP systolic 108–112; BP diastolic 65–73; PULSE 82–103; RESP 12–27; TEMP 37; O2SAT 98
[2022-05-09 18:02] LABS: Source Nasal/Nares
[2022-05-09 18:15] LABS: Abs Immature Grans 0.21 10^3/uL (0.0-0.06); Absolute Basophil Count 0.04 10^3/uL (0.0-0.2); Absolute Eosinophil Count 0.31 10^3/uL (0.0-0.7); Absolute Lymphocyte Count 1.46 10^3/uL (1.2-3.4); Absolute Monocyte Count 0.84 10^3/uL (0.1-0.8); Absolute Neutrophil Count 7.89 10^3/uL (1.2-6.7); Basophils % 0.4; Eosinophils % 2.9; HCT 25.2 % (36.0-46.0); HGB 7.9 g/dL (11.2-15.7); Lactate 1.1 mmol/L (0.6-1.4); Lymphocytes % 13.6; MCH 26.6 pg (27.0-33.0); MCHC 31.3 % (32.0-36.0); MCV 85 fL (80-95); MPV 9.5 fL (8.0-11.0); Monocytes % 7.8; Neutrophils % 73.3; Platelet Count 341 10^3/uL (130-400); RBC 2.97 10^6/uL (3.93-5.22); RDW 16.9 % (11.7-14.6); RDW-SD 52.2 fL; WBC 10.75 10^3/uL (4.4-10.8)
[2022-05-09] MEDS: Normal Saline 1,000 ML 1000 ML IV (18:20)
[2022-05-09] MEDS: ACETAMINOPHEN 1,000 MG/100 ML BTL 400 MG IVPB (18:30)
[2022-05-09] MEDS: MORPHine 10 MG/ML VIAL 2 MG IVP (18:30)
[2022-05-09 18:32] LABS: COVID-19 PCR Negative (Negative)
[2022-05-09 18:40] LABS: ALT 15 U/L (14-59); AST 14 U/L (15-37); Alkaline Phosphatase 69 U/L (46-116); Anion Gap 9.7 mmol/L (3-11); BUN 12 mg/dL (7-18); Bilirubin, Total 0.1 mg/dL (0.2-1.0); CO2 26.3 mmol/L (21.0-32.0); CREATININE 0.8 mg/dL (0.55-1.02); Calcium 9.2 mg/dL (8.5-10.1); Chloride 103 mmol/L (98-107); Estimated GFR 96.06 (mL/min/1.73m2); Glucose 100 mg/dL (74-106); Sodium 139 mmol/L (136-145); Total Protein 8.2 g/dL (6.4-8.2)
[2022-05-09 18:42] LABS: Potassium 2.5 mmol/L (3.5-5.1)
--- NOTE | 2022-05-09 18:45 | DI.CT_ITS ---
Exam(s) CT LOWER EXTREMITY LT CTA EXAM: CT LOWER EXTREMITY LT CTA CLINICAL HISTORY: Osteomyelitis, history of aneurysm. TECHNIQUE: Imaging Protocol: Axial CT angiography was performed with multi-slice acquisition and mu lti-planar and/or 3D reconstructions. CONTRAST MATERIAL: Intravenous: Omnipaque 350 Contrast volume:150 ml Contrast route:IV - Oral: no COMPARISON: CT CT ABDOMEN PELVIS WO from 02/03/2022 FINDINGS: Exam limited by patient motion. Vascular Structures: Abdomen: Celiac [place]: Motion artifact at origin. Visible stenosis with poststenotic dilatation. SMA: No evidence of stenosis. JOSE: Patent. Renal Arteries: No evidence of stenosis. There is a single renal artery perfusing each kidney. Aorta: Mildly tortuous. No aneurysm. No dissection. Pelvis: Iliac Arteries: Common iliac arteries patent. Bilateral internal iliac arteries are patent. Bilater al external iliac arteries are occluded. There is a stent from the right proximal external iliac artery extending distally through the sciatic notch to the right superficial femoral artery which is occluded. Distal stents extend distally into the mid thigh level. This is occluded. Bilateral common femoral arteries are occluded. Bilateral profundus femoral arteries are patent. Left superficial femoral artery is occluded proximally. It is reconstituted at the mid thigh level v ia collaterals. The popliteal arteries shows reduced diameter but are patent. There is a below the knee amputation on the right. Left infrapopliteal arteries: Posterior tibial artery is occluded at the calf level with reconstituti on the mid leg.. Anterior tibial artery and peroneal arteries are patent. Liver: Normal density. No measurable mass. Gallbladder and biliary tract: Gallbladder contracted but unremarkable. Pancreas: Normal density, no abnormal calcifications or inflammatory process. Spleen: Normal. Kidneys: Normal size, contour and axis. No radiodense stones or obstructive uropathy. No masses seen. Adrenal glands: No masses seen. Aorta: Abdominal portion non-dilated. Bladder: Symmetric distention, no gross wall thickening. Bowel: Large quantity of stool noted. Evaluation of the bowel limited due to lack of intra-abdominal fat and oral contrast. No obstruction or bowel wall thickening. Peritoneal cavity: No ascites, collection or mesenteric inflammatory response. Bones: No acute fracture. Right below the knee amputation. No evidence of bony erosion. Severe amada rowing of the L4-5 disc with endplate sclerosis, similar to prior. Fusion noted between L2 and L3. Air in the soft tissues adjacent to the great toe. Plain films recommended. Soft tissue: Multiple bilateral enlarged groin lymph nodes. This is seen on prior exam. IMPRESSION: Air in the soft tissues around the left great toe. Plain films recommended. Large quantity of stool consistent with constipation. 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 Multiple bilateral lower extremity vascular occlusions as described above. RADIATION DOSE DELIVERED: 766.97mGy.cm Total DLP DATA REPOSITORY: All CT scans at this facility are submitted to the National Radiology Data Registry (NRDR) Dose Index Registry (DIR) with the [employer] (ACR). RADIATION OPTIMIZATION: All CT scans at this facility use at least one of these dose optimization te chniques: automated exposure control; mA and/or kV adjustment per patient size (includes targeted exa ms where dose is matched to clinical indication); or iterative reconstruction.
[2022-05-09] MEDS: PIPERACILLIN/TAZO 3.375 GM in Normal Saline 50 ML IVPB (19:15)
--- NOTE | 2022-05-09 19:50 | ED.GENADUL_ITS ---
Discharge Plan Disposition Patient Disposition: Admit to [facility] Condition: Fair Discharge Details Clinical Impression: Gangrene of left foot, Acute hypokalemia, Anemia Admit Date/Time: 05/09/22 23:16 Admit Provider: Issac Valdez Attending Provider: Issac Valdez Primary Care Provider: Georgette Reza ED Provider: Sagar Waller Discharge Data Discharge Date/Time-TO BE ENTERED AT DEPARTURE: 05/10/22 00:50 Medical Decision Making Patient presenting to the emergency department for chief complaint of left foot infection. Patient states that this is been going on for about a month. She states she has not followed up with anybody or previous care of this. Patient has significant past medical history of of drug abuse, infections with right finger loss, right below the knee amputation and recent admission to [facility] with left femoral aneurysm that was bleeding and had ligation performed. Physical exam shows significant and very worrisome findings for wet and dry gangrene of the left lower extremity mainly to the great toe and second digit. Third toe does have some infectious involvement and ankle has diffuse swelling. Bedside ultrasound was utilized and pulsatile flow was visualized but definitely seems diminished. We will plan on checking labs, obtaining blood cultures, CTA imaging, and will start Vanco and Zosyn. Reviewed labs and patient has anemia with hemoglobin at 7.9, slightly elevation of neutrophils and monocytes with WBC at upper limits of normal, lactate within normal range, patient is hypokalemic with potassium of 2.5 and otherwise nondiagnostic labs. COVID swab was performed due to high suspicion of admission which she was negative. Will order IV potassium 40 mEq. Pending CTA imaging I did consult with [facility] vascular surgeon. Spoke with Dr. Chula Luke(?) Who stated that patient is at high risk for complications due to poor vascularity of left lower extremity especially post procedure. Unfortunately they did not have any bed availability and stated at most we could consider calling them in the morning. I did consult with [facility] vascular surgeon Dr. Antonio Fernandez. After discussion of the case and interventions that have been started they did state that they could place patient on urgent transfer request with bed availability in the next 24 to 48 hours but at this time given that patient is not septic and stable at that emergent transfer was not needed which I am in agreement with. will call hospitalist for continued discussion of admission and continued monitoring pending bed availability. After consulting with hospitalist he felt more comfortable with patient being on medicine service. Spoke with Dr. Valdez who agreed to have patient admitted for continued antibiotics and monitoring pending bed availability at [facility]. Medical Records Medical records reviewed: Yes I reviewed the patient's medical records. Imaging Data Radiologic Study: Imaging: CT Scan Radiologist's impression: IMPRESSION: 1. Occluded left external iliac artery, common femoral artery, and proximal left SFA, with reconstitution of flow at the mid thigh via profunda collaterals. Profunda femoral artery is receiving flow from periarticular collaterals at the hip. 2. The left popliteal artery is patent as are the anterior tibial and peroneal arteries to the level of the left foot/ankle. 3. The left posterior tibial artery occludes at the calf but demonstrates reconstitution at the mid leg via collaterals, with flow demonstrated to the level of the tarsal tunnel. 4. Soft tissue air in the great toe which may be due to regional soft tissue ulceration or gangrenous infection, correlate clinically. 5. 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 6. The right external iliac artery, common femoral artery, and proximal SFA are occluded. There are occluded vascular grafts in the right hemipelvis. 7. There is flow reconstitution in the mid to distal right SFA via profunda collaterals, and profunda is receiving flow from periarticular collaterals at the hip. 8. Bilateral inguinal and external iliac cookei enlargement, nonspecific. 9. Changes of chronic discitis at L4-L5, grossly unchanged from 02/03/2022. No significant paraspinous edema currently. No abscess. Can not exclude chronic active infection by imaging. 10. Gallbladder wall thickening and mild pericholecystic edema, correlate clinically for cholecystitis. Dilated common bile duct at 10 mm diameter, correlate clinically for biliary obstruction, consider sonographic assessment as clinically indicated. 11. Splenomegaly. 12. Large amount of colonic stool suggesting constipation. 13. Mild generalized anasarca. 14. These findings initiated a critical results reporting process. An addendum will be issued at the time of clinician notification. Lab Data Lab results reviewed: Yes I reviewed the patient's lab results. HPI General Mode of arrival: wheelchair . Date/Time Provider Initiated Documentation: 05/09/22 16:15 . Limitations to Documentation: no limitations . Information obtained by: patient, family, RN notes reviewed and old records reviewed . History of Present Illness 41 year old F presents to the emergency department with the chief complaint of Left foot infection, described as moderate, with intensity rated at 9. Quality is described as aching, and is localized to the lower extremity. Patient reports no radiation. Patient started experiencing this week(s) (4) and it has been constant. No relieving factors improve symptom(s), No exacerbating factors reported . Patient notes no other symptoms.. Patient did receive the following treatments prior to arrival, none Related Data Home Medications Medication Instructions Recorded Confirmed buprenorphine 2 mg-naloxone 0.5 mg See Rx Instructions buccal DAILY 04/07/20 05/09/22 sublingual film Acetaminophen [Tylenol] 650 mg PO Q4H PRN PRN ##0 07/27/21 05/09/22 norethindrone (contraceptive) 0.35 0.35 mg PO DAILY #84 tabs 07/27/21 05/09/22 mg tablet cyclobenzaprine 10 mg tablet 10 mg PO HS PRN muscle spasm #30 01/30/22 05/09/22 tabs gabapentin 300 mg capsule 300 mg PO QHS #90 caps 01/30/22 05/09/22 ibuprofen 800 mg tablet See Rx Instructions .Route 04/04/22 05/09/22 .COMPLEX #90 tabs Previous Rx's Medication Instructions Recorded Acetaminophen [Tylenol] 650 mg PO Q4H PRN PRN ##0 07/27/21 norethindrone (contraceptive) 0.35 0.35 mg PO DAILY #84 tabs 07/27/21 mg tablet cyclobenzaprine 10 mg tablet 10 mg PO HS PRN muscle spasm #30 01/30/22 tabs gabapentin 300 mg capsule 300 mg PO QHS #90 caps 01/30/22 ibuprofen 800 mg tablet See Rx Instructions .Route 04/04/22 .COMPLEX #90 tabs Allergies Allergy/AdvReac Type Severity Reaction Status Date / Time No Known Allergies Allergy Verified 02/03/22 14:53 General Stated Complaint: Orthopedic LEIF: 3 Review of Systems Constitutional Constitutional: Denies chills and Denies fever(s) Cardiovascular Cardiovascular: Denies chest pain and Denies dyspnea Respiratory Respiratory: Denies dyspnea Gastrointestinal Gastrointestinal: Denies abdominal pain, Denies nausea and Denies vomiting Musculoskeletal Musculoskeletal: Reports as per HPI, Reports joint swelling and Reports numbness Integumentary/Breasts Skin/Breast: Reports as per HPI, Reports change in pigmentation, Reports non- healing lesions, Reports skin ulcer and Reports sores Neurologic Neurologic: Reports numbness PFSH All Active Problems (Updated 05/09/22 @ 23:31 by Sagar Waller NP) Gangrene of left foot (Acute) Acute hypokalemia (Acute) Anemia (Chronic) Gangrene (Acute) Retained foreign body (Acute) Vulvar cellulitis (Acute) History of herpes genitalis (Acute) Vulvar pain (Acute) Open wound of finger of right hand (Acute) Cellulitis of toe of left foot (Acute) Abnormal finding on imaging (Acute) Abnormal MRI (Acute) Dysuria (Acute) 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 Patient has appointment at [facility] in [place] for consideration of termination History of intravenous drug abuse (Acute) Cellulitis of left lower extremity (Acute) Poor intravenous access (Acute) Chronic infection as complication of amputation (Acute) Heart murmur (Acute) Hypotension (Chronic) Petechial rash (Acute) Acute on chronic anemia (Acute) Osteomyelitis of right lower extremity (Chronic) DVT, lower extremity, distal, acute (Acute) 10/24 2018 left lower extremity. Rx with Eliquis. Abnormal uterine bleeding (AUB) (Acute) On. Set 10/24/2018 heavy flow coinciding with initiation of Eliquis Normocytic hypochromic anemia (Acute) 10/26/2018 hemoglobin 8.2 MCV 83 Medical History Cellulitis of finger of right hand Endometriosis Hx of hepatitis C AB +. No viral load. Hx of opioid abuse Currently in treatment at [facility]. Suboxone. Leg wound, right Raynaud disease Tenosynovitis of finger Surgical History Complete below knee amputation of right lower extremity 2018. 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 [facility]. 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 H/O hand surgery contracted post-op History of transesophageal echocardiography (YG) negative Retained foreign body L groin, s/p unsuccessful exploratory surgery Family History Father Diabetes Paternal Grandfather Diabetes Paternal Aunt Diabetes Maternal Grandmother Breast cancer Maternal Aunt Multiple sclerosis Social History Smoking/Tobacco Use Status: Never Smoking risk assessment performed?: Yes Alcohol Intake: former Drug use: Current Sobriety Substance use type: former substance user, crack/cocaine, heroin and methamphetamine Details: former cocaine (snorted, smoked, IV) and heroin use (IV), as well as crystal meth (IV). Patient is currently enrolled at [facility], on suboxone Household members: children and other Details: Patient resides at her sister's house with her daughter Housing: apartment Number of Children: 1 current occupation: Unemployed Sexually active: Yes Do you think of yourself as: straight/heterosexual Current gender identity: female Seatbelt use: always Do you feel safe at home: Yes Do you feel safe in your relationship?: Yes Additional Social history: Ambulates with crutches - 2 falls recently Exam Const General: cooperative and no acute distress Orientation: alert, awake and oriented x3 Resp Effort & Inspection: normal respiratory effort, able to speak in complete sentences and no respiratory distress Auscultation: clear to auscultation bilaterally Cardio Rate: regular rate Rhythm: regular rhythm Heart Sounds: S1 normal and S2 normal Neuro General: patient alert, patient awake and patient oriented x3 Extrem General: other (Right below the knee amputation) Left lower extremity: ankle Details: swelling and foot Details: abnormal to inspection (Severe necrosis and appearance of wet and dry gangrene to first and second digit ) and vascular exam (Decreased flow) Details: dorsalis pedis pulse present and posterior tibial pulse present Course Vital Signs Vital signs: Vital Signs Temperature 37.0 C 05/09/22 15:52 Pulse 103 H 05/09/22 15:52 Respiratory Rate 20 05/09/22 15:52 Blood Pressure 112/73 05/09/22 15:52 Pulse Oximetry 98 05/09/22 15:52 Temperature 37.0 C 05/09/22 15:52 Temperature Source Temporal Artery Scan 05/09/22 15:52 Pulse 103 H 05/09/22 15:52 Respiratory Rate 20 05/09/22 15:52 Respiratory Effort 05/09/22 16:13 Blood Pressure 112/73 05/09/22 15:52 Blood Pressure Position Sitting 05/09/22 15:52 Pulse Oximetry 98 05/09/22 15:52 Pain Level 10 05/09/22 17:55 Lab/Test Results Lab/Test Results: 05/09/22 18:38 Blood Blood Culture - Pending 05/09/22 17:43 Blood Blood Culture - Pending Laboratory Tests Range/Units 05/09/22 05/09/22 05/09/22 18:00 18:05 18:05 WBC (4.4-10.8) 10^3/uL RBC (3.93-5.22) 10^6/uL Hgb (11.2-15.7) g/dL Hct (36.0-46.0) % MCV (80-95) fL MCH (27.0-33.0) pg MCHC (32.0-36.0) % RDW (11.7-14.6) % Plt Count (130-400) 10^3/uL MPV (8.0-11.0) fL Immature Gran % Neutrophils % Lymphocytes % Monocytes % Eosinophils % Basophils % Nucleated RBC % (0.0-0.3) % Absolute Neutrophils (1.2-6.7) 10^3/uL Absolute Lymphocytes (1.2-3.4) 10^3/uL Absolute Monocytes (0.1-0.8) 10^3/uL Absolute Eosinophils (0.0-0.7) 10^3/uL Absolute Basophils (0.0-0.2) 10^3/uL VBG Lactate (0.6-1.4) mmol/L 1.1 Sodium (136-145) mmol/L 139 Potassium (3.5-5.1) mmol/L 2.5 L* Chloride (98-107) mmol/L 103 Carbon Dioxide (21.0-32.0) mmol/L 26.3 Anion Gap (3-11) mmol/L 9.7 BUN (7-18) mg/dL 12 Creatinine (0.55-1.02) mg/dL 0.8 Est GFR (CKD-EPI 2020) (mL/min/1.73m2) 96.06 Glucose (74-106) mg/dL 100 Calcium (8.5-10.1) mg/dL 9.2 Total Bilirubin (0.2-1.0) mg/dL 0.1 L AST (15-37) U/L 14 L ALT (14-59) U/L 15 Alkaline Phosphatase (46-116) U/L 69 Total Protein (6.4-8.2) g/dL 8.2 Albumin (3.4-5.0) g/dL 3.0 L COVID-19 Source Nasal/Nares SARS-CoV-2 (PCR) (Negative) Negative Range/Units 05/09/22 18:05 WBC (4.4-10.8) 10^3/uL 10.75 RBC (3.93-5.22) 10^6/uL 2.97 L Hgb (11.2-15.7) g/dL 7.9 L Hct (36.0-46.0) % 25.2 L MCV (80-95) fL 85 MCH (27.0-33.0) pg 26.6 L MCHC (32.0-36.0) % 31.3 L RDW (11.7-14.6) % 16.9 H Plt Count (130-400) 10^3/uL 341 MPV (8.0-11.0) fL 9.5 Immature Gran % 2.0 Neutrophils % 73.3 Lymphocytes % 13.6 Monocytes % 7.8 Eosinophils % 2.9 Basophils % 0.4 Nucleated RBC % (0.0-0.3) % 0.0 Absolute Neutrophils (1.2-6.7) 10^3/uL 7.89 H Absolute Lymphocytes (1.2-3.4) 10^3/uL 1.46 Absolute Monocytes (0.1-0.8) 10^3/uL 0.84 H Absolute Eosinophils (0.0-0.7) 10^3/uL 0.31 Absolute Basophils (0.0-0.2) 10^3/uL 0.04 VBG Lactate (0.6-1.4) mmol/L Sodium (136-145) mmol/L Potassium (3.5-5.1) mmol/L Chloride (98-107) mmol/L Carbon Dioxide (21.0-32.0) mmol/L Anion Gap (3-11) mmol/L BUN (7-18) mg/dL Creatinine (0.55-1.02) mg/dL Est GFR (CKD-EPI 2020) (mL/min/1.73m2) Glucose (74-106) mg/dL Calcium (8.5-10.1) mg/dL Total Bilirubin (0.2-1.0) mg/dL AST (15-37) U/L ALT (14-59) U/L Alkaline Phosphatase (46-116) U/L Total Protein (6.4-8.2) g/dL Albumin (3.4-5.0) g/dL COVID-19 Source SARS-CoV-2 (PCR) (Negative)
[2022-05-09] MEDS: Omnipaque 350 MG/ML 100 ML BTL IJ ×2 (19:52→19:56)
[2022-05-09] MEDS: Normal Saline Flush 10 ML SYR IVP (19:57)
[2022-05-09] MEDS: Normal Saline - Diluent 50 ML VIAL IJ (19:57)
[2022-05-09] MEDS: VANCOMYCIN 1,500 MG in Normal Saline 250 ML 166.6666 MG IVPB (20:41)
[2022-05-09] MEDS: Water,Injection,Sterile 10 ML VIAL (20:57)
--- NOTE | 2022-05-09 21:25 | DI.VRAD_ITS ---
Addendum created by Sal Rudd MD on 05/09/2022 9:24:22 PM EST: Addendum: THIS REPORT CONTAINS FINDINGS THAT MAY BE CRITICAL TO PATIENT CARE. The findings were verbally communicated via telephone conference with ERINN KHALIL at 9:24 PM EST on 05/09/2022. The findings were acknowledged and understood. Initial report created on 05/09/2022 9:18:39 PM EST: PROCEDURE INFORMATION: Exam: CTA Abdominal Aorta and Bilateral Lower Extremities (Run-off) With Contrast Exam date and time: 05/09/2022 7:45 PM Age: 41 years old Clinical indication: Pain; Toes; Left; Prior surgery; Surgery date: 6+ months; Surgery type: R leg amputation; Patient HX: Osteomyelitis, history of aneurysm TECHNIQUE: Imaging protocol: Computed tomographic angiography of the of the abdominal aorta, pelvis and bilateral lower extremities with contrast. 3D rendering (Not supervised by radiologist): MIP and/or 3D reconstructed images were created by the technologist. COMPARISON: CT ABDOMEN PELVIS WO 02/03/2022 6:40 PM FINDINGS: Aorta: Visualized distal thoracic aorta is normal. Abdominal aorta demonstrates mild tortuosity without aneurysm, dissection, or stenosis. 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 There is poststenotic aneurysmal dilatation of the proximal celiac artery reaching 11 mm diameter, which is unchanged, with no evidence of rupture or dissection. The celiac artery major branch vessels are unremarkable. The SMA and its major branch vessels are unremarkable. The JOSE is patent. Renal arteries: Right main renal artery is unremarkable. Left main renal artery is unremarkable. Right iliac arteries: Right common iliac artery is normal. Proximal right internal iliac artery is normal. Right external iliac artery appears chronically occluded. There is a vascular stent in place extending from the proximal right external iliac artery distribution through the right hemipelvis with 2 graft limbs exiting through the sciatic notch and tracking into the right inguinal distribution. All of these graft segments are occluded. Right femoral/popliteal arteries: Right common femoral artery is occluded. Right profunda femoral artery is patent and receives flow from collateral vessels in the right adductor compartment and lateral right iliac fossa. Right popliteal artery is small but patent. Right infrapopliteal arteries: No occlusion or significant stenosis. Left iliac arteries: Left common iliac artery is unremarkable. Left internal iliac artery is patent. Left external iliac artery occludes near its origin and remains occluded throughout its length. Left femoral/popliteal arteries: Left common femoral artery is occluded. Left superficial femoral artery demonstrates proximal occlusion with flow reconstitution at the mid thigh from profunda collaterals. Left profunda femoral artery is patent, with flow provided from collateral vessels in the left adductor compartment and lateral iliac fossa. Left popliteal artery is patent. The vessel is small, without focal stenosis. Left infrapopliteal arteries: Left anterior tibial artery is patent into the dorsal foot with flow/enhancement demonstrated in dorsalis pedis. The left tibioperoneal trunk is patent. The left peroneal artery is patent to the ankle. The left posterior tibial artery occludes at the calf although there is flow reconstitution at the mid leg, with flow/enhancement demonstrated in the distal segment at the level of the tarsal tunnel. Other arteries: The right SFA demonstrates proximal occlusion and multifocal occlusion in the mid segment, with a very small vessel. There is distal flow reconstitution at the adductor canal from profunda collaterals. Lungs: Mild atelectasis in the lung bases. Heart: Heart size normal. Mediastinal space: The visualized distal esophagus is largely contracted without gross abnormality. Liver: Normal contour. No mass lesions. No intrahepatic biliary ductal dilatation. Gallbladder and bile ducts: Gallbladder is partially contracted. Question mild gallbladder wall thickening which may relate to contracted status, with slight hyperenhancement and mild pericholecystic edema, correlate clinically for cholecystitis. Moderate dilatation of the common bile duct measuring 10 mm diameter. No calcified duct stones or obstructive mass lesions are identified. Clinical/laboratory correlation recommended to exclude evidence of biliary obstruction. Consider sonographic assessment as clinically indicated. Pancreas: Normal. No inflammatory changes or ductal dilation. Spleen: Splenomegaly measuring 14.5 cm craniocaudal, although motion artifact may be contributing. Adrenal glands: Normal. No adrenal mass. Kidneys and ureters: No acute abnormalities. No hydronephrosis or hydroureter. No gross urinary tract stones although excreted contrast in the renal collecting systems limits sensitivity for stones. Stomach and bowel: The stomach contains moderate food content but is otherwise unremarkable. The small bowel is nondilated with no gross abnormality. There is a large amount of stool distributed throughout the colon suggesting constipation. Appendix: Normal appendix. Urinary bladder: Unremarkable as visualized. Reproductive: Unremarkable as visualized. Intraperitoneal space: No free fluid or air. Lymph nodes: Bilateral inguinal and external iliac cookie enlargement, nonspecific. Bones/joints: Right-sided below-knee amputation noted. Amputation margin is well corticated with no changes of osteomyelitis, cellulitis, or abscess. Chronic ankylosis L2-L3. Endplate erosions and moderate adjacent endplate sclerosis at L4-L5 is similar to previous CT 02/03/2022, with no significant surrounding soft tissue swelling currently. This may represent chronic changes of remote prior discitis although can not exclude an element of active discitis. No abscess. Soft tissues: There is soft tissue swelling with soft tissue air in the great toe and small amounts of gas in the plantar soft tissues which could relate to soft tissue ulceration or possibly gangrenous infection, correlate clinically. Mild soft tissue stranding/edema in the peripheral subcutaneous tissues suggesting volume overload or anasarca. IMPRESSION: 1. Occluded left external iliac artery, common femoral artery, and proximal left SFA, with reconstitution of flow at the mid thigh via profunda collaterals. Profunda femoral artery is receiving flow from periarticular collaterals at the hip. 2. The left popliteal artery is patent as are the anterior tibial and peroneal arteries to the level of the left foot/ankle. 3. The left posterior tibial artery occludes at the calf but demonstrates reconstitution at the mid leg via collaterals, with flow demonstrated to the level of the tarsal tunnel. 4. Soft tissue air in the great toe which may be due to regional soft tissue ulceration or gangrenous infection, correlate clinically. 5. 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 6. The right external iliac artery, common femoral artery, and proximal SFA are occluded. There are occluded vascular grafts in the right hemipelvis. 7. There is flow reconstitution in the mid to distal right SFA via profunda collaterals, and profunda is receiving flow from periarticular collaterals at the hip. 8. Bilateral inguinal and external iliac cookie enlargement, nonspecific. 9. Changes of chronic discitis at L4-L5, grossly unchanged from 02/03/2022. No significant paraspinous edema currently. No abscess. Can not exclude chronic active infection by imaging. 10. Gallbladder wall thickening and mild pericholecystic edema, correlate clinically for cholecystitis. Dilated common bile duct at 10 mm diameter, correlate clinically for biliary obstruction, consider sonographic assessment as clinically indicated. 11. Splenomegaly. 12. Large amount of colonic stool suggesting constipation. 13. Mild generalized anasarca. 14. These findings initiated a critical results reporting process. An addendum will be issued at the time of clinician notification. Dictated and Authenticated by: Sal Rudd MD. Ordering:LEYDA Keith MD
[2022-05-09] MEDS: Potassium Chloride 20 MEQ TABCR 40 MEQ PO (21:51)
[2022-05-09] MEDS: POTASSIUM CHLORIDE 20 MEQ/100 ML BAG 50 MEQ IVPB (22:39)
--- NOTE | 2022-05-09 22:59 | NUR.NOTE ---
pt moved to rm 2 and placed on awake overnight monitor, KCL infusing via pump. VSS, pt has no complaints. CB within reach
--- NOTE | 2022-05-09 23:08 | HPE_ITS ---
Date of service: 05/09/22 Time of Service: 23:08 Assessment and Plan Assessment and plan (1) Gangrene: Status: Acute Assessment and plan: Gangrene of foot. It is not entirely clear what underlying vascular issues are at play here. Regardless patient will need surgical intervention. I think this case is more appropriate for the surgical services and have so advised ER. Would advise continued antibiotics and potassium replenishment in meantime. 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 Here with one month of progressive gangrene of right foot, unclear what prompted visit this evening. On ER evaluation findings of note for absence of fever, stable vital signs, gangrene of left toes 1,2 and partial 3 extending somewhat proximally to metatarsals; white count 10, Hct 25 (baseline), K 2.5. CTA findings as per report, and bedside U/S reported as showing distal albeit diminished flow to foot. [place] [facility], no bed availability. Patient given potassium replenishment along with Vanco and Zosyn. I was asked to evaluate for admission. Review of Systems Narrative: per HPI PFSH All Active Problems (Updated 05/09/22 @ 23:19 by Abdirahman Potter MD) Gangrene (Acute) Retained foreign body (Acute) Vulvar cellulitis (Acute) History of herpes genitalis (Acute) Vulvar pain (Acute) Open wound of finger of right hand (Acute) Cellulitis of toe of left foot (Acute) Abnormal finding on imaging (Acute) Abnormal MRI (Acute) Dysuria (Acute) 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 [facility] has [facility] at [facility] in [place] for consideration of termination History of intravenous drug abuse (Acute) Cellulitis of left lower extremity (Acute) Poor intravenous access (Acute) Chronic infection as complication of amputation (Acute) Heart murmur (Acute) Hypotension (Chronic) Petechial rash (Acute) Acute on chronic anemia (Acute) Osteomyelitis of right lower extremity (Chronic) DVT, lower extremity, distal, acute (Acute) 10/24 2018 left lower extremity. Rx with Eliquis. Abnormal uterine bleeding (AUB) (Acute) On. Set 10/24/2018 heavy flow coinciding with initiation of Eliquis Normocytic hypochromic anemia (Acute) 10/26/2018 hemoglobin 8.2 MCV 83 Medical History Cellulitis of finger of right hand Endometriosis Hx of hepatitis C AB +. No viral load. Hx of opioid abuse Currently in treatment at [facility]. Suboxone. Leg wound, right Raynaud disease Tenosynovitis of finger Surgical History Complete below knee amputation of right lower extremity 2018. 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 [facility]. 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 H/O hand surgery contracted post-op History of transesophageal echocardiography (YG) negative Retained foreign body L groin, s/p unsuccessful exploratory surgery Family History Father Diabetes Paternal Grandfather Diabetes Paternal Aunt Diabetes Maternal Grandmother Breast cancer Maternal Aunt Multiple sclerosis Social History Smoking/Tobacco Use Status: Never Smoking risk assessment performed?: Yes Alcohol Intake: former Drug use: Current Sobriety Substance use type: former substance user, crack/cocaine, heroin and methamphetamine Details: former cocaine (snorted, smoked, IV) and heroin use (IV), as well as crystal meth (IV). Patient is currently enrolled at [facility], on suboxone Household members: children and other Details: Patient resides at her sister's house with her daughter Housing: apartment Number of Children: 1 current occupation: Unemployed Sexually active: Yes Do you think of yourself as: straight/heterosexual Current gender identity: female Seatbelt use: always Do you feel safe at home: Yes Do you feel safe in your relationship?: Yes Additional Social history: Ambulates with crutches - 2 falls recently Meds Allergies and Home Medications Allergies Allergy/AdvReac Type Severity Reaction Status Date / Time No Known Allergies Allergy Verified 02/03/22 14:53 Home Medications Medication Instructions Recorded Confirmed Type buprenorphine 2 mg-naloxone 0.5 mg See Rx Instructions buccal DAILY 04/07/20 05/09/22 History sublingual film Acetaminophen [Tylenol] 650 mg PO Q4H PRN PRN ##0 07/27/21 05/09/22 Rx norethindrone (contraceptive) 0.35 0.35 mg PO DAILY #84 tabs 07/27/21 05/09/22 Rx mg tablet cyclobenzaprine 10 mg tablet 10 mg PO HS PRN muscle spasm #30 01/30/22 05/09/22 Rx tabs gabapentin 300 mg capsule 300 mg PO QHS #90 caps 01/30/22 05/09/22 Rx ibuprofen 800 mg tablet See Rx Instructions .Route 04/04/22 05/09/22 Rx .COMPLEX #90 tabs Exam Narrative Exam Narrative: 108/65, 82, 37.0, 20, 98% RA. HEENT atraumatic; neck supple; lungs clear; heart RRR 2/6 apical systolic murmur; abdomen soft and NT w/o HSM; extremities gangrene as described above left foot, pedal pulses not palpable, no cem cellulitis proximal to area of gangrene; neuro Ox3, lucid, moves all 4s Results Labs Result diagrams: 05/09/22 18:05 05/09/22 18:05 Labs: Laboratory Results - last 24 hr 05/09/22 05/09/22 05/09/22 18:00 18:05 18:05 WBC RBC Hgb Hct MCV MCH MCHC RDW Plt Count MPV Immature Gran % Neutrophils % Lymphocytes % Monocytes % Eosinophils % Basophils % Nucleated RBC % Absolute Neutrophils Absolute Lymphocytes Absolute Monocytes Absolute Eosinophils Absolute Basophils VBG Lactate 1.1 Sodium 139 Potassium 2.5 L* Chloride 103 Carbon Dioxide 26.3 Anion Gap 9.7 BUN 12 Creatinine 0.8 Est GFR (CKD-EPI 2020) 96.06 Glucose 100 Calcium 9.2 Total Bilirubin 0.1 L AST 14 L ALT 15 Alkaline Phosphatase 69 Total Protein 8.2 Albumin 3.0 L COVID-19 Source Nasal/Nares SARS-CoV-2 (PCR) Negative 05/09/22 18:05 WBC 10.75 RBC 2.97 L Hgb 7.9 L Hct 25.2 L MCV 85 MCH 26.6 L MCHC 31.3 L RDW 16.9 H Plt Count 341 MPV 9.5 Immature Gran % 2.0 Neutrophils % 73.3 Lymphocytes % 13.6 Monocytes % 7.8 Eosinophils % 2.9 Basophils % 0.4 Nucleated RBC % 0.0 Absolute Neutrophils 7.89 H Absolute Lymphocytes 1.46 Absolute Monocytes 0.84 H Absolute Eosinophils 0.31 Absolute Basophils 0.04 VBG Lactate Sodium Potassium Chloride Carbon Dioxide Anion Gap BUN Creatinine Est GFR (CKD-EPI 2020) Glucose Calcium Total Bilirubin AST ALT Alkaline Phosphatase Total Protein Albumin COVID-19 Source SARS-CoV-2 (PCR) Last Vital Signs Temp 37.0 C 05/09/22 15:52 Pulse 82 05/09/22 22:31 Resp 20 05/09/22 15:52 BP 108/65 05/09/22 22:31 Pulse Ox 98 05/09/22 22:31 Time Spent Time spent with Patient: 40-54 minutes Time was spent: preparing to see the patient(eg.review tests), obtaining and/or reviewing separately otained hiistory and referring, communicating with other health child care center administrator
--- NOTE | 2022-05-09 23:49 | NUR.NOTE ---
pt c/o increase in pain at IV site from KCL infusing, pump rate decreased for pt comfort
[2022-05-10 00:46] VITALS: BP 118/68; PULSE 86; RESP 18
[2022-05-10 01:05] VITALS: BP 108/77; PULSE 87; RESP 19; TEMP 36.9; O2SAT 98
[2022-05-10] MEDS: Normal Saline Flush 10 ML SYR IVP ×4 (01:58→12:29)
[2022-05-10] MEDS: MORPHine 2 MG/ML SYR IVP ×5 (01:58→16:40)
[2022-05-10] MEDS: PIPERACILLIN/TAZO 4.5 GM in Normal Saline 100 ML IVPB ×3 (02:19→15:55)
[2022-05-10] MEDS: Melatonin 3 MG TAB 9 MG PO (04:02)
[2022-05-10] MEDS: Normal Saline 1,000 ML 150 ML IV (04:49)
[2022-05-10 07:37] VITALS: BP 107/72; PULSE 86; RESP 17; TEMP 36.5; O2SAT 98
--- NOTE | 2022-05-10 08:34 | W.PM.HP.N ---
Date of service: 05/10/22 Time of Service: 08:35 Assessment and Plan Assessment and plan (1) Gangrene: Status: Acute Assessment and plan: Gangrene to the left foot, affecting the first through third phalanges. The patient will certainly require surgical intervention and evaluation from a vascular surgeon. Awaiting for transfer to [facility] at this time. Will proceed with IV Zosyn and vancomycin and will continue to monitor for worsening infection. Potassium was replenished last night. Regular diet. Awaiting bed for transfer for surgical intervention. I have reviewed and agree with Jamila Marin's assessment above. The patient is not demonstrating signs of toxicity at this time. Awaiting transfer for definitive treatment. F/u on repeat potassium. History of Present Illness Narrative: 41-year-old female with a history of IV drug use, osteomyelitis status post BKA of right lower extremity, right femoral artery aneurysm (status post ligation) presented to the ER with concerns of a worsening infection of her left foot. Patient reports this been going on for approximately 1 month, and denies having received any medical care regarding this. Patient has undergone previous amputations for right middle finger and also a right BKA. Patient describes her left foot as exquisitely tender. She denies any fevers, chills or night sweats. She denies any current IV drug use. Patient reports that she is very familiar with [facility] and [facility]. [facility] All Active Problems (Updated 05/09/22 @ 23:31 by Sagar Waller NP) Gangrene of left foot (Acute) Acute hypokalemia (Acute) Anemia (Chronic) Gangrene (Acute) Retained foreign body (Acute) Vulvar cellulitis (Acute) History of herpes genitalis (Acute) Vulvar pain (Acute) Open wound of finger of right hand (Acute) Cellulitis of toe of left foot (Acute) Abnormal finding on imaging (Acute) Abnormal MRI (Acute) Dysuria (Acute) 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 [facility] in [place] for consideration of termination History of intravenous drug abuse (Acute) Cellulitis of left lower extremity (Acute) Poor intravenous access (Acute) Chronic infection as complication of amputation (Acute) Heart murmur (Acute) Hypotension (Chronic) Petechial rash (Acute) Acute on chronic anemia (Acute) Osteomyelitis of right lower extremity (Chronic) DVT, lower extremity, distal, acute (Acute) 10/24 2018 left lower extremity. Rx with Eliquis. Abnormal uterine bleeding (AUB) (Acute) On. Set 10/24/2018 heavy flow coinciding with initiation of Eliquis Normocytic hypochromic anemia (Acute) 10/26/2018 hemoglobin 8.2 MCV 83 Medical History Cellulitis of finger of right hand Endometriosis Hx of hepatitis C AB +. No viral load. Hx of opioid abuse Currently in treatment at [facility]. Suboxone. Leg wound, right Raynaud disease Tenosynovitis of finger Surgical History Complete below knee amputation of right lower extremity 2018. 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 [facility]. 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 H/O hand surgery contracted post-op History of transesophageal echocardiography (YG) negative Retained foreign body L groin, s/p unsuccessful exploratory surgery Family History Father Diabetes Paternal Grandfather Diabetes Paternal Aunt Diabetes Maternal Grandmother Breast cancer Maternal Aunt Multiple sclerosis Social History Smoking/Tobacco Use Status: Never Smoking risk assessment performed?: Yes Alcohol Intake: former Drug use: Current Sobriety Substance use type: former substance user, crack/cocaine, heroin and methamphetamine Details: former cocaine (snorted, smoked, IV) and heroin use (IV), as well as crystal meth (IV). Patient is currently enrolled at [facility], on suboxone Household members: children and other Details: Patient resides at her sister's house with her daughter Housing: apartment Number of Children: 1 current occupation: Unemployed Sexually active: Yes Do you think of yourself as: straight/heterosexual Current gender identity: female Seatbelt use: always Do you feel safe at home: Yes Do you feel safe in your relationship?: Yes Additional Social history: Ambulates with crutches - 2 falls recently Meds Allergies and Home Medications Allergies Allergy/AdvReac Type Severity Reaction Status Date / Time No Known Allergies Allergy Verified 02/03/22 14:53 Home Medications Medication Instructions Recorded Confirmed Type Acetaminophen [Tylenol] 650 mg PO Q4H PRN PRN ##0 07/27/21 05/09/22 Rx norethindrone (contraceptive) 0.35 0.35 mg PO DAILY #84 tabs 07/27/21 05/09/22 Rx mg tablet cyclobenzaprine 10 mg tablet 10 mg PO HS PRN muscle spasm #30 01/30/22 05/09/22 Rx tabs gabapentin 300 mg capsule 300 mg PO QHS #90 caps 01/30/22 05/09/22 Rx buprenorphine 8 mg-naloxone 2 mg 2 film sublingual DAILY 05/10/22 05/10/22 History sublingual film (Suboxone) ibuprofen 800 mg tablet 800 mg PO TID PRN PRN 05/10/22 05/10/22 History Exam Const General: cooperative and comfortable Orientation: alert and oriented x3 Resp Effort & Inspection: normal respiratory effort, no audible wheezes and no cough Extrem Other: Patient provided verbal consent of photos to be taken of her left foot. Dry gangrene noted to the first through third phalanges, extending to the proximal phalanx/interphalangeal joints. Moderate amount of swelling and mild erythema within the foot extending more proximal to the ankle. Both dorsalis pedis and posterior tibial pulses noted on exam. The plantar surface of the foot is exquisitely tender to palpation. Results Labs Result diagrams: 05/09/22 18:05 05/09/22 18:05 Labs: Laboratory Results - last 24 hr 05/09/22 05/09/22 05/09/22 18:00 18:05 18:05 WBC RBC Hgb Hct MCV MCH MCHC RDW Plt Count MPV Immature Gran % Neutrophils % Lymphocytes % Monocytes % Eosinophils % Basophils % Nucleated RBC % Absolute Neutrophils Absolute Lymphocytes Absolute Monocytes Absolute Eosinophils Absolute Basophils VBG Lactate 1.1 Sodium 139 Potassium 2.5 L* Chloride 103 Carbon Dioxide 26.3 Anion Gap 9.7 BUN 12 Creatinine 0.8 Est GFR (CKD-EPI 2020) 96.06 Glucose 100 Calcium 9.2 Total Bilirubin 0.1 L AST 14 L ALT 15 Alkaline Phosphatase 69 Total Protein 8.2 Albumin 3.0 L COVID-19 Source Nasal/Nares SARS-CoV-2 (PCR) Negative 05/09/22 18:05 WBC 10.75 RBC 2.97 L Hgb 7.9 L Hct 25.2 L MCV 85 MCH 26.6 L MCHC 31.3 L RDW 16.9 H Plt Count 341 MPV 9.5 Immature Gran % 2.0 Neutrophils % 73.3 Lymphocytes % 13.6 Monocytes % 7.8 Eosinophils % 2.9 Basophils % 0.4 Nucleated RBC % 0.0 Absolute Neutrophils 7.89 H Absolute Lymphocytes 1.46 Absolute Monocytes 0.84 H Absolute Eosinophils 0.31 Absolute Basophils 0.04 VBG Lactate Sodium Potassium Chloride Carbon Dioxide Anion Gap BUN Creatinine Est GFR (CKD-EPI 2020) Glucose Calcium Total Bilirubin AST ALT Alkaline Phosphatase Total Protein Albumin COVID-19 Source SARS-CoV-2 (PCR) Last Vital Signs Temp 36.5 C 05/10/22 07:37 Pulse 86 05/10/22 07:37 Resp 17 05/10/22 07:37 BP 107/72 05/10/22 07:37 Pulse Ox 98 05/10/22 07:37 PAWSS Have you Been Recently Intoxicated or Drunk Within the Last 30 days?: No Have you Ever Experienced Previous Episodes of Alcohol Withdrawal?: No Have you ever Experienced Withdrawal Seizures?: No Have you ever Experienced Delirium Tremens(DT)s?: No Have you ever undergone Alcohol Rehabilitation Treatment (i.e, inpt ot outpatient treatment programs)?: No Have you ever Experienced Blackouts?: No Have you ever Combined Alcohol with other Downers within the last 90 days?: No Have you ever Combined Alcohol with any other Substance of Abuse during the last 90 days?: No Positive Blood Alcohol level on Presentation? [PCS.BAL]: No Evidence of Increased Autonomic Activity (i.e. HR>120, tremor, sweating, agitation, nausea)?: No Result: 0 Time Spent Time spent with Patient: <40 minutes Time was spent: preparing to see the patient(eg.review tests)
--- NOTE | 2022-05-10 08:37 | INITIAL_ITS ---
- If Service Date Differs Date of service: 05/10/22 Time of Service: 08:37 Care Management Initial Assess REASON FOR HOSPITALIZATION:: Gangrene of foot PAST MEDICAL HISTORY/PAST SURGICAL HISTORY:: All Active Problems (Updated 05/09/22 @ 23:19 by Abdirahman Potter MD). Gangrene (Acute). Retained foreign body (Acute). Vulvar cellulitis (Acute). History of herpes genitalis (Acute). Vulvar pain (Acute). Open wound of finger of right hand (Acute). Cellulitis of toe of left foot (Acute). Abnormal finding on imaging (Acute). Abnormal MRI (Acute). Dysuria (Acute). Chronic ulcer of great toe of left foot with fat layer exposed (Acute). Cellulitis of toe of left foot (Acute). (Acute). 01/26/2019 TV OB U/S gestational sac 5W6D plus/-10 D. [facility] [place] for consideration of termination. History of intravenous drug abuse (Acute). Cellulitis of left lower extremity (Acute). Poor intravenous access (Acute). Chronic infection as complication of amputation (Acute). Heart murmur (Acute). Hypotension (Chronic). Petechial rash (Acute). Acute on chronic anemia (Acute). Osteomyelitis of right lower extremity (Chronic). DVT, lower extremity, distal, acute (Acute). 10/24 2018 left lower extremity. Rx with Eliquis. Abnormal uterine bleeding (AUB) (Acute). On. Set 10/24/2018 heavy flow coinciding with initiation of Eliquis. Normocytic hypochromic anemia (Acute). 10/26/2018 hemoglobin 8.2 MCV 83. Medical History . Cellulitis of finger of right hand. Endometriosis. Hx of hepatitis C. AB +. No viral load. Hx of opioid abuse. Currently in treatment at [facility]. Suboxone. Leg wound, right. Raynaud disease. Tenosynovitis of finger. Surgical History . Complete below knee amputation of right lower extremity. 2019. 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 Discharged from chronic care facility 09/2018. Femoral artery aneurysm, right. 06/2017. [facility]. 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 H/O hand surgery. contracted post-op. History of transesophageal echocardiography (YG). negative. Retained foreign body. L groin, s/p unsuccessful exploratory surgery PREVIOUS FUNCTIONAL STATUS/SOCIAL/FAMILY SUPPORTS:: Lindsay resides in an apartment in [place] with her and 10 year old daughter. Her mother lives close by and is supportive. Lindsay has a BKA and receives disability income. She is supported locally by [facility] as well. Joyce was ambulating with crutches but with the gaangrene on her remaining foot, she is unable to walk at all at this time. Her Stone carries her where she needs to go. CURRENT FUNCTIONAL STATUS:: Joyce was sitting up in bed when CM met with her. She explained that her foot has been gangrenous since March. She has been told that she will be transferred to [facility] for surgery as soon as a bed becomes available. Joyce explained that she anticipates becoming more independent after the surgery when her wound heals. She hopes to be able to be fitted with a prothesis that will allow her to walk. ADVANCE DIRECTIVES:: none on file Has patient been provided with info about the portal/API?: Yes Did the patient sign up for the portal?: Yes CODE STATUS:: Full Code INSURANCE COVERAGE / FINANCIAL ISSUES:: Medicare. Medicaid CURRENT HOME/COMMUNITY SERVICES/EQUIPMENT:: none. uses crutches PRIMARY CARE PHYSICIAN:: Georgette Reza POTENTIAL DISCHARGE NEEDS:: follow up with surgery, PCP and plan of care PATIENT/FAMILY EDUCATION NEEDS:: Review of discharge oinstructions, limitations, activity, medications, follow up plan, discuss Ask Me Three TRANSPORTATION:: via private vehicle with family/friends PLAN:: Anticipate Joyce will be transferred to a tertiary care facility for surgery on her gangrenous left foot when a bed becomes available. Joyce will transport via EMS coordinated by the nursing supervisor engraving. She will follow up with the facility providers and plan of care. CM will continue to support Lindsay and her discharge planning needs.
[2022-05-10] MEDS: VANCOMYCIN/WATER (PEG) 1 GM/200 ML BAG IVPB ×2 (10:17→17:24)
[2022-05-10] MEDS: Buprenorphine/Naloxone 8 mg/2 mg FILM 2 EACH SL (11:27)
[2022-05-10 12:42] LABS: Abs Immature Grans 0.21 10^3/uL (0.0-0.06); Absolute Eosinophil Count 0.33 10^3/uL (0.0-0.7); Absolute Lymphocyte Count 1.13 10^3/uL (1.2-3.4); Absolute Monocyte Count 1.03 10^3/uL (0.1-0.8); Basophils % 0.3; Eosinophils % 2.8; HCT 23.5 % (36.0-46.0); HGB 7.6 g/dL (11.2-15.7); Immature Grans % 1.8; Lymphocytes % 9.5; MCHC 32.3 % (32.0-36.0); MCV 83 fL (80-95); MPV 9.6 fL (8.0-11.0); Monocytes % 8.6; Platelet Count 288 10^3/uL (130-400); RBC 2.82 10^6/uL (3.93-5.22); RDW 16.8 % (11.7-14.6); WBC 11.94 10^3/uL (4.4-10.8)
[2022-05-10 12:46] LABS: Absolute Basophil Count 0.04 10^3/uL (0.0-0.2); Absolute Neutrophil Count 9.19 10^3/uL (1.2-6.7)
[2022-05-10 12:56] LABS: Anion Gap 12.6 mmol/L (3-11); BUN 19 mg/dL (7-18); CO2 19.4 mmol/L (21.0-32.0); CREATININE 0.8 mg/dL (0.55-1.02); Calcium 8.5 mg/dL (8.5-10.1); Chloride 106 mmol/L (98-107); Estimated GFR 96.06 (mL/min/1.73m2); Glucose 94 mg/dL (74-106); Magnesium 1.9 mg/dL (1.8-2.4); Sodium 138 mmol/L (136-145)
--- NOTE | 2022-05-10 14:53 | PDOC.ANES ---
Date of service: 05/10/22 Time of Service: 14:54 Anesthesia Note Report Anesthesia Note: Greeted patient at beside to discuss anesthesia consult for additional IV access. Patient currently has functioning 18g MICHELLE IV. Consulted for midline placement, discussed the advantages with patient to include prolonged duration, ability to draw labs, and additional access. Patient currently is not interested and wants to utilize functioning line. 18G was redressed by anesthesia, stat lock applied, and flushed with ease. Encouraged patient to reach out if she changes her desire for midline catheter in the future.
[2022-05-10 15:42] VITALS: BP 117/71; PULSE 83; RESP 16; TEMP 36.7; O2SAT 99
--- NOTE | 2022-05-10 17:30 | W.PM.DS.N ---
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 Patient reports this been going on for approximately 1 month, and denies having received any medical care regarding this. Patient has undergone previous amputations for right middle finger and also a right BKA.? She has dry gangrene of the distal left lower extremity without present toxicity. She requires transfer to a tertiary care center for definitive vascular surgical care. Discharge Plan Disposition Patient Disposition: Transfer-Acute Inpatient Care Specific Acute Inpt Facility: [facility] Condition: Fair Discharge Details Reason For Visit: Gangrene Left Foot Admit Date/Time: 05/09/22 23:16 Admit Provider: Issac Valdez Attending Provider: Issac Valdez Primary Care Provider: Georgette Reza Home Meds and New Rx's Prescriptions: No Action gabapentin 300 mg capsule 300 mg PO QHS Qty: 90 1RF cyclobenzaprine 10 mg tablet 10 mg PO HS PRN (Reason: muscle spasm) Qty: 30 1RF norethindrone (contraceptive) 0.35 mg tablet 0.35 mg PO DAILY Qty: 84 0RF Rx Instructions: start day 1 of menstrual cycle Acetaminophen [Tylenol] 650 mg PO Q4H PRN PRNQty: 0 0RF buprenorphine-naloxone [Suboxone] 8-2 mg film 2 film sublingual DAILY Label Comments: PLACE TWO FILMS UNDER THE TONGUE EVERY DAY FOR 7 DAYS ibuprofen 800 mg tablet 800 mg PO TID PRN PRN Rx Instructions: TAKE ONE TABLET BY MOUTH THREE TIMES A DAY NEEDED FOR PAIN Discharge Instructions Activity:: Non-weight bearing Equipment/Supplies:: stretcher--keep non-depen Diet:: As Tolerated DS: Summary Time Spent with Patient providing and/or coordinating discharge services: Less than 30 minutes Status at Discharge Functional status at discharge: bed bound Overall status at discharge: patient is not back to baseline Mental Status: mental status grossly normal Speech and Movement: speech clear Mood: congruent mood Affect: normal affect Exam Const General: cooperative, comfortable and no acute distress Orientation: alert, awake and oriented x3 Resp Effort & Inspection: normal respiratory effort, no nasal flaring and no pursed lip breathing Auscultation: clear to auscultation bilaterally Cardio Rate: regular rate Rhythm: regular rhythm GI Palpation: soft, not firm, no guarding and nontender Auscultation: normal bowel sounds Extrem Other: RLE: well-healed BKA LLE: dry gangrene of 1st-3rd phalanges with minimal surrounding cellulitis; no purulence/drainage appreciated Psych Mental Status: mental status grossly normal Speech and Movement: speech clear Mood: congruent mood Affect: normal affect Attitude: cooperative Judgment: judgment good DS: Data Vitals/I&O Vitals and I&O: Vital Signs Temperature 98.1 F 05/10/22 15:42 Temperature Source Tympanic 05/10/22 15:42 Pulse 83 05/10/22 15:42 Pulse Rhythm Regular 05/10/22 17:14 Pulse 93 H 05/09/22 23:40 Respiratory Rate 16 05/10/22 15:42 Respiratory Effort Non-Labored 05/10/22 17:14 Respiratory Depth Normal 05/10/22 17:14 Respiratory Pattern Normal 05/10/22 17:14 Blood Pressure 117/71 05/10/22 15:42 Blood Pressure Position Sitting 05/09/22 15:52 Pulse Oximetry 99 05/10/22 15:42 Oxygen Delivery Method Room Air 05/10/22 15:42 Oxygen Flow Rate 0 05/10/22 15:42 Pain Level 8 05/10/22 16:40 Intake & Output 05/09/22 05/10/22 05/10/22 23:59 11:59 23:59 Intake Total 400 / 400 400 / 500 100 / 500 Output Total 1200 / 1200 Balance 400 / 400 -800 / -700 100 / -700 Weight 58.967 kg 58.967 kg Intake: IV 400 / 400 400 / 500 100 / 500 Output: Urine 1200 / 1200 Other: Urine Color Yellow Urine Appearance Clear Clear Urine Odor None Voiding Methods Bedside Commode Data Completed and Pending Labs on day of discharge: Labs from last 24 hours 05/10/22 05/10/22 05/10/22 12:30 12:30 10:00 WBC 11.94 H RBC 2.82 L Hgb 7.6 L Hct 23.5 L MCV 83 MCH 27.0 MCHC 32.3 RDW 16.8 H Plt Count 288 MPV 9.6 Immature Gran % 1.8 Neutrophils % 77.0 Lymphocytes % 9.5 Monocytes % 8.6 Eosinophils % 2.8 Basophils % 0.3 Nucleated RBC % 0.0 Absolute Neutrophils 9.19 H Absolute Lymphocytes 1.13 L Absolute Monocytes 1.03 H Absolute Eosinophils 0.33 Absolute Basophils 0.04 VBG Lactate Sodium 138 Potassium 5.0 D Chloride 106 Carbon Dioxide 19.4 L Anion Gap 12.6 H BUN 19 H Creatinine 0.8 Est GFR (CKD-EPI 2020) 96.06 Glucose 94 Calcium 8.5 Magnesium 1.9 Total Bilirubin AST ALT Alkaline Phosphatase Total Protein Albumin Vancomycin Trough Cancelled COVID-19 Source SARS-CoV-2 (PCR) 05/09/22 05/09/22 05/09/22 18:05 18:05 18:05 WBC 10.75 RBC 2.97 L Hgb 7.9 L Hct 25.2 L MCV 85 MCH 26.6 L MCHC 31.3 L RDW 16.9 H Plt Count 341 MPV 9.5 Immature Gran % 2.0 Neutrophils % 73.3 Lymphocytes % 13.6 Monocytes % 7.8 Eosinophils % 2.9 Basophils % 0.4 Nucleated RBC % 0.0 Absolute Neutrophils 7.89 H Absolute Lymphocytes 1.46 Absolute Monocytes 0.84 H Absolute Eosinophils 0.31 Absolute Basophils 0.04 VBG Lactate 1.1 Sodium 139 Potassium 2.5 L* Chloride 103 Carbon Dioxide 26.3 Anion Gap 9.7 BUN 12 Creatinine 0.8 Est GFR (CKD-EPI 2020) 96.06 Glucose 100 Calcium 9.2 Magnesium Total Bilirubin 0.1 L AST 14 L ALT 15 Alkaline Phosphatase 69 Total Protein 8.2 Albumin 3.0 L Vancomycin Trough COVID-19 Source SARS-CoV-2 (PCR) 05/09/22 18:00 WBC RBC Hgb Hct MCV MCH MCHC RDW Plt Count MPV Immature Gran % Neutrophils % Lymphocytes % Monocytes % Eosinophils % Basophils % Nucleated RBC % Absolute Neutrophils Absolute Lymphocytes Absolute Monocytes Absolute Eosinophils Absolute Basophils VBG Lactate Sodium Potassium Chloride Carbon Dioxide Anion Gap BUN Creatinine Est GFR (CKD-EPI 2020) Glucose Calcium Magnesium Total Bilirubin AST ALT Alkaline Phosphatase Total Protein Albumin Vancomycin Trough COVID-19 Source Nasal/Nares SARS-CoV-2 (PCR) Negative 05/09/22 18:38 Blood Blood Culture - Pending 05/09/22 17:43 Blood Blood Culture - Pending Preliminary micro results at discharge 05/09/22 18:38 Blood Culture - Pending Blood 05/09/22 17:43 Blood Culture - Pending Blood [facility] All Active Problems (Updated 05/09/22 @ 23:31 by Sagar Waller NP) Gangrene of left foot (Acute) Acute hypokalemia (Acute) Anemia (Chronic) Gangrene (Acute) Retained foreign body (Acute) Vulvar cellulitis (Acute) History of herpes genitalis (Acute) Vulvar pain (Acute) Open wound of finger of right hand (Acute) Cellulitis of toe of left foot (Acute) Abnormal finding on imaging (Acute) Abnormal MRI (Acute) Dysuria (Acute) 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 [facility] at [facility] [place] for consideration of termination History of intravenous drug abuse (Acute) Cellulitis of left lower extremity (Acute) Poor intravenous access (Acute) Chronic infection as complication of amputation (Acute) Heart murmur (Acute) Hypotension (Chronic) Petechial rash (Acute) Acute on chronic anemia (Acute) Osteomyelitis of right lower extremity (Chronic) DVT, lower extremity, distal, acute (Acute) 10/24 2018 left lower extremity. Rx with Eliquis. Abnormal uterine bleeding (AUB) (Acute) On. Set 10/24/2018 heavy flow coinciding with initiation of Eliquis Normocytic hypochromic anemia (Acute) 10/26/2018 hemoglobin 8.2 MCV 83 Medical History Cellulitis of finger of right hand Endometriosis Hx of hepatitis C AB +. No viral load. Hx of opioid abuse Currently in treatment at [facility]. Suboxone. Leg wound, right Raynaud disease Tenosynovitis of finger Surgical History Complete below knee amputation of right lower extremity 2018. 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 [facility]. 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 H/O hand surgery contracted post-op History of transesophageal echocardiography (YG) negative Retained foreign body L groin, s/p unsuccessful exploratory surgery Family History Father Diabetes Paternal Grandfather Diabetes Paternal Aunt Diabetes Maternal Grandmother Breast cancer Maternal Aunt Multiple sclerosis Social History Smoking/Tobacco Use Status: Never Smoking risk assessment performed?: Yes Alcohol Intake: former Drug use: Current Sobriety Substance use type: former substance user, crack/cocaine, heroin and methamphetamine Details: former cocaine (snorted, smoked, IV) and heroin use (IV), as well as crystal meth (IV). Patient is currently enrolled at [facility], on suboxone Household members: children and other Details: Patient resides at her sister's house with her daughter Housing: apartment Number of Children: 1 current occupation: Unemployed Sexually active: Yes Do you think of yourself as: straight/heterosexual Current gender identity: female Seatbelt use: always Do you feel safe at home: Yes Do you feel safe in your relationship?: Yes Additional Social history: Ambulates with crutches - 2 falls recently Time Spent with Patient Time Spent with Patient: <45 minutes Time was spent: indepentently interpreting results and counseling the patient
== END 2022-05-10 19:11 | disposition short-term general hospital (02) | DRG 300 ==
LOC: ER 05-10 00:10 → MS 05-10 00:52
PROVIDERS: Internal Medicine; Admitting Provider Surgery; Emergency Provider Nurse Practitioner Family; PCP Nurse Practitioner; Visit Provider Surgery
DX: I96 Gangrene, not elsewhere classified (principal); L03.116 Cellulitis of left lower limb; F19.11 Other psychoactive substance abuse, in remission; I77.9 Disorder of arteries and arterioles, unspecified; E87.6 Hypokalemia; I95.89 Other hypotension; Z86.718 Personal history of other venous thrombosis and embolism; D50.9 Iron deficiency anemia, unspecified; Z89.021 Acquired absence of right finger(s); L97.522 Non-pressure chronic ulcer of other part of left foot with fat layer exposed; Z89.511 Acquired absence of right leg below knee; Z79.899 Other long term (current) drug therapy
CPT/HCPCS: 36415; 73706; 80048; 80053; 81025; 87040; 87635; 96361; 96365; 96366; 96367; 96375; 99222; 99285; 80202; 83605; 83735; 85025; J0131; J2270; J2543; J3480; J3490

== ENCOUNTER 2022-08-21 09:51 | Emergency (ER) | payer MEDICARE, MEDICAID, SELFPAY ==
[2022-08-21 09:54] VITALS: BP 116/95; PULSE 67; RESP 15; TEMP 36.7; O2SAT 99
--- NOTE | 2022-08-21 10:12 | W.ED.GENAD ---
Discharge Plan Disposition Patient Disposition: Home Condition: Stable Discharge Details Clinical Impression: Leg wound, right Primary Care Provider: Georgette Reza ED Provider: Sourav Armenta Home Meds and New Rx's Prescriptions: Continued cyclobenzaprine 10 mg tablet 10 mg PO HS PRN (Reason: muscle spasm) Qty: 30 1RF apixaban 5 mg tablet 5 mg PO BID Patient Comments: Pt stopped taking this 08/21/22 CT norethindrone (contraceptive) 0.35 mg tablet 0.35 mg PO DAILY Qty: 84 0RF Rx Instructions: start day 1 of menstrual cycle gabapentin 600 mg tablet 600 mg PO TID docusate sodium 100 mg capsule 100 mg PO BID folic acid 1 mg tablet 1 mg PO DAILY melatonin 3 mg tablet 3 mg PO HS PRN pantoprazole 40 mg tablet,delayed release (DR/EC) 40 mg PO DAILY polyethylene glycol 3350 17 gram powder in packet 17 g PO DAILY ferrous gluconate 324 mg (37.5 mg iron) tablet 324 mg PO BID betamethasone dipropionate 0.05 % ointment 1 applic topical BID Acetaminophen [Tylenol] 650 mg PO Q4H PRN PRNQty: 0 0RF buprenorphine-naloxone [Suboxone] 8-2 mg film 2 film sublingual DAILY Patient Comments: PLACE TWO FILMS UNDER THE TONGUE EVERY DAY FOR 7 DAYS ibuprofen 800 mg tablet 800 mg PO TID PRN PRN Rx Instructions: TAKE ONE TABLET BY MOUTH THREE TIMES A DAY NEEDED FOR PAIN No Action amoxicillin-pot clavulanate 875-125 mg tablet 1 tab PO Q12H Patient Comments: Pt stopped taking 08/21/22 CT Discharge Instructions Additional Instructions: You need to have this drain removed at [facility], reach out to them to arrange for an appointment return to the emergency department if you have fevers or increased drainage from the catheter Medical Decision Making 41 yo female with hx of bilateral below the knee amputations and prior substance who comes in with cc of drain catheter in place in right leg. She was transferred in April for gangrene of the left foot to [facility] and had her left leg amputated at that time. She was d/c'd with a wound drain as well in her right thigh. She did not show up for her follow up appointments and states it was supposed to be removed sometime in May. Her significant other today decided she should have it removed so brought her to the ED today. Denies fevers, drainage. She has a blue approximately 8cm catheter in her right mid thigh. There is no surrounding erythema, no crepitus, no tenderness, no drainage out of the catheter. Will consult with surgery to see if it's capable of being removed here Spoke with Dr. Rand, advised since it was done at [facility] needs to be removed there and will likely need to have a scheduled OR time to have it removed since it's been so long, doesn't need emergent transfer she needs to set up an appointment with them. REviewed [facility] records and they attempted to reach out to her numerous times to set up appointments, she denies being contacted by them but states she has their number and will call. I offered to have CM be involved but she declined at this time. She is stable for d/c, understands imporatance of prompt follow up with [facility] IR/surgery for catheter removal, return precautions given Differential Diagnosis Differential Diagnosis: wound drain catheter in place HPI General Mode of arrival: ambulatory. Date/Time Provider Initiated Documentation: 08/21/22 10:02. Limitations to Documentation: no limitations. Information obtained by: patient. History of Present Illness 41 year old F presents to the emergency department with the chief complaint of wants drain removed, described as moderate, Quality is described as aching, and is localized to the right and lower extremity. Patient reports no radiation. and it has been constant. No relieving factors improve symptom(s), No exacerbating factors reported . Patient notes no other symptoms.. Patient did receive the following treatments prior to arrival, none Related Data Home Medications Medication Instructions Recorded Confirmed Acetaminophen [Tylenol] 650 mg PO Q4H PRN PRN ##0 07/27/21 08/21/22 norethindrone (contraceptive) 0.35 0.35 mg PO DAILY #84 tabs 07/27/21 08/21/22 mg tablet cyclobenzaprine 10 mg tablet 10 mg PO HS PRN muscle spasm #30 01/30/22 08/21/22 tabs buprenorphine 8 mg-naloxone 2 mg 2 film sublingual DAILY 05/10/22 08/21/22 sublingual film (Suboxone) ibuprofen 800 mg tablet 800 mg PO TID PRN PRN 05/10/22 08/21/22 amoxicillin 875 mg-potassium 1 tab PO Q12H 05/31/22 08/21/22 clavulanate 125 mg tablet betamethasone dipropionate 0.05 % 1 applic topical BID 05/31/22 08/21/22 topical ointment docusate sodium 100 mg capsule 100 mg PO BID 05/31/22 08/21/22 ferrous gluconate 324 mg (37.5 mg 324 mg PO BID 05/31/22 08/21/22 iron) tablet folic acid 1 mg tablet 1 mg PO DAILY 05/31/22 08/21/22 gabapentin 600 mg tablet 600 mg PO TID 05/31/22 08/21/22 melatonin 3 mg tablet 3 mg PO HS PRN 05/31/22 08/21/22 pantoprazole 40 mg tablet,delayed 40 mg PO DAILY 05/31/22 08/21/22 release polyethylene glycol 3350 17 gram 17 g PO DAILY 05/31/22 08/21/22 oral powder packet apixaban 5 mg tablet 5 mg PO BID 06/02/22 08/21/22 Previous Rx's Medication Instructions Recorded Acetaminophen [Tylenol] 650 mg PO Q4H PRN PRN ##0 07/27/21 norethindrone (contraceptive) 0.35 0.35 mg PO DAILY #84 tabs 07/27/21 mg tablet cyclobenzaprine 10 mg tablet 10 mg PO HS PRN muscle spasm #30 01/30/22 tabs Allergies Allergy/AdvReac Type Severity Reaction Status Date / Time No Known Allergies Allergy Verified 08/21/22 09:58 General Stated Complaint: GenMedical LEIF: 3 Review of Systems All systems reviewed & are unremarkable except as noted in HPI and below Constitutional Constitutional: Denies chills, Denies fever(s) and Denies weakness Cardiovascular Cardiovascular: Denies chest pain and Denies dyspnea Respiratory Respiratory: Denies cough and Denies dyspnea Gastrointestinal Gastrointestinal: Denies abdominal pain, Denies nausea and Denies vomiting Musculoskeletal Musculoskeletal: Denies joint swelling Neurologic Neurologic: Denies weakness PFSH All Active Problems (Updated 08/21/22 @ 10:38 by Sourav Armenta MD) Gangrene of left foot (Acute) Anemia (Chronic) Leg wound, right (Acute) Retained foreign body (Acute) Vulvar cellulitis (Acute) History of herpes genitalis (Acute) Vulvar pain (Acute) Open wound of finger of right hand (Acute) Cellulitis of toe of left foot (Acute) Abnormal finding on imaging (Acute) Abnormal MRI (Acute) Dysuria (Acute) 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 [facility] has appointment at [facility] in [place] for consideration of termination History of intravenous drug abuse (Acute) Cellulitis of left lower extremity (Acute) Poor intravenous access (Acute) Chronic infection as complication of amputation (Acute) Heart murmur (Acute) Hypotension (Chronic) Petechial rash (Acute) Acute on chronic anemia (Acute) Osteomyelitis of right lower extremity (Chronic) DVT, lower extremity, distal, acute (Acute) 10/24 2018 left lower extremity. Rx with Eliquis. Abnormal uterine bleeding (AUB) (Acute) On. Set 10/24/2018 heavy flow coinciding with initiation of Eliquis Normocytic hypochromic anemia (Acute) 10/26/2018 hemoglobin 8.2 MCV 83 Medical History Cellulitis of finger of right hand Endometriosis Hx of hepatitis C AB +. No viral load. Hx of opioid abuse Currently in treatment at [facility]. Suboxone. Leg wound, right Raynaud disease Tenosynovitis of finger Surgical History Complete below knee amputation of right lower extremity 2018. 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 [facility]. 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 H/O hand surgery contracted post-op History of transesophageal echocardiography (YG) negative Retained foreign body L groin, s/p unsuccessful exploratory surgery Family History Father Diabetes Paternal Grandfather Diabetes Paternal Aunt Diabetes Maternal Grandmother Breast cancer Maternal Aunt Multiple sclerosis Social History Smoking/Tobacco Use Status: Never Smoking risk assessment performed?: Yes Alcohol Intake: former Drug use: Current Sobriety Substance use type: former substance user, crack/cocaine, heroin and methamphetamine Details: former cocaine (snorted, smoked, IV) and heroin use (IV), as well as crystal meth (IV). Patient is currently enrolled at [facility], on suboxone Household members: children and other Details: Patient resides at her sister's house with her daughter Housing: apartment Number of Children: 1 current occupation: Unemployed Sexually active: Yes Do you think of yourself as: straight/heterosexual Current gender identity: female Seatbelt use: always Do you feel safe at home: Yes Do you feel safe in your relationship?: Yes Additional Social history: Ambulates with crutches - 2 falls recently Exam Const General: no acute distress Orientation: alert HENMT Head: normal to inspection Ears: external ears normal General nose exam: external nose normal Mouth: moist mucous membranes Eyes General: appearance normal, both eyes and all related structures Neck Neck: normal visual inspection Resp Effort & Inspection: normal respiratory effort and able to speak in complete sentences Cardio Rate: regular rate Skin General skin exam: no erythema Rashes: no rashes Neuro General: patient alert and patient oriented x3 Extrem General: no joint enlargement noted Psych Mental Status: mental status grossly normal Course Vital Signs Vital signs: Vital Signs Temperature 36.7 C 08/21/22 09:54 Pulse 67 08/21/22 09:54 Respiratory Rate 15 08/21/22 09:54 Blood Pressure 116/95 H 08/21/22 09:54 Pulse Oximetry 99 08/21/22 09:54 Temperature 36.7 C 08/21/22 09:54 Temperature Source Temporal Artery Scan 08/21/22 09:54 Pulse 67 08/21/22 09:54 Respiratory Rate 15 08/21/22 09:54 Respiratory Effort Normal 08/21/22 09:57 Blood Pressure 116/95 H 08/21/22 09:54 Blood Pressure Position Sitting 08/21/22 09:54 Pulse Oximetry 99 08/21/22 09:54 Oxygen Delivery Method Room Air 08/21/22 09:54 Oxygen Flow Rate 0 08/21/22 09:54 Pain Level 0 08/21/22 09:54 PAWSS Have you Been Recently Intoxicated or Drunk Within the Last 30 days?: No Have you Ever Experienced Previous Episodes of Alcohol Withdrawal?: No Have you ever Experienced Withdrawal Seizures?: No Have you ever Experienced Delirium Tremens(DT)s?: No Have you ever undergone Alcohol Rehabilitation Treatment (i.e, inpt ot outpatient treatment programs)?: No Have you ever Experienced Blackouts?: No Have you ever Combined Alcohol with other Downers within the last 90 days?: No Have you ever Combined Alcohol with any other Substance of Abuse during the last 90 days?: No Result: 0
[2022-08-21 10:50] VITALS: RESP 18
== END 2022-08-21 10:49 | disposition home or self-care (01) ==
PROVIDERS: Emergency Provider Emergency Medicine; PCP Nurse Practitioner
DX: Z98.890 Other specified postprocedural states (principal)
CPT/HCPCS: 99281; 99283

== ENCOUNTER 2023-03-14 12:45 | Inpatient (IN) | payer MEDICARE, MEDICAID, SELFPAY ==
[2023-03-14] VITALS (11 sets, daily range): BP systolic 85–176; BP diastolic 69–99; PULSE 81–95; RESP 13–18; TEMP 36.5–37.6; O2SAT 95–99; BMI 39.5
--- NOTE | 2023-03-14 13:15 | DI.CT_ITS ---
Exam(s) CT LOWER EXTREMITY RT W EXAM: CT LOWER EXTREMITY RT W CLINICAL HISTORY: right medial thigh abscess. TECHNIQUE: Imaging Protocol: Axial computed tomography images with coronal and sagittal reformatted images were created and reviewed. CONTRAST MATERIAL: Intravenous: Omnipaque 350 Contrast volume:structured data in ml Contrast route:I V COMPARISON: CT CT UPPER EXTREMITY RT W from 07/23/2021 FINDINGS: SOFT TISSUES: There is a large abscess involving the adductor musculature of the medial upper thigh which measures approximately 14 cm cephalocaudal by 8 cm wide by 7 cm AP. There is overlying subcutaneous edema and cellulitis appearance. The abscess extends to the level of the skin anteriorly in the groin region. No gas in soft tissues. There are enlarged lymph nodes. OSSEOUS: There is a below-knee amputation. No fractures evident. No evidence of osteomyelitis. IMPRESSION: Large abscess in the medial upper right thigh involving the adductor musculature RADIATION DOSE DELIVERED: Total DLP DATA REPOSITORY: All CT scans at this facility are submitted to the National Radiology Data Registry (NRDR) Dose Index Registry (DIR) with the [employer] (ACR). RADIATION OPTIMIZATION: All CT scans at this facility use at least one of these dose optimization te chniques: automated exposure control; mA and/or kV adjustment per patient size (includes targeted exa ms where dose is matched to clinical indication); or iterative reconstruction.
[2023-03-14 14:11] LABS: Source Nasal/Nares
[2023-03-14 14:15] LABS: Abs Immature Grans 0.07 10^3/uL (0.0-0.06); Absolute Basophil Count 0.04 10^3/uL (0.0-0.2); Absolute Monocyte Count 0.93 10^3/uL (0.1-0.8); Basophils % 0.3; Eosinophils % 0.7; HCT 36.8 % (36.0-46.0); Immature Grans % 0.5; Lactate 2.4 mmol/L (0.6-1.4); Lymphocytes % 5.7; MCH 29.7 pg (27.0-33.0); MCHC 32.6 % (32.0-36.0); MCV 91 fL (80-95); MPV 10.1 fL (8.0-11.0); Monocytes % 6.5; Neutrophils % 86.3; Platelet Count 261 10^3/uL (130-400); RBC 4.04 10^6/uL (3.93-5.22); RDW 12.1 % (11.7-14.6); RDW-SD 40.8 fL; WBC 14.31 10^3/uL (4.4-10.8)
[2023-03-14 14:18] LABS: Absolute Lymphocyte Count 0.82 10^3/uL (1.2-3.4); Absolute Neutrophil Count 12.35 10^3/uL (1.2-6.7)
[2023-03-14] MEDS: Normal Saline 1,000 ML 1000 ML IV (14:18)
--- NOTE | 2023-03-14 14:23 | ED.GENADUL_ITS ---
Discharge Plan Disposition Patient Disposition: Admit to [facility] Condition: Poor Discharge Details Chief Complaint: Cellulitis Clinical Impression: Abscess of right thigh Primary Care Provider: Georgette Reza ED Provider: Kerry Arora Home Meds and New Rx's Prescriptions: No Action cyclobenzaprine 10 mg tablet 10 mg PO HS PRN (Reason: muscle spasm) Qty: 30 1RF apixaban 5 mg tablet 5 mg PO BID Patient Comments: Pt stopped taking this 08/21/22 CT gabapentin 600 mg tablet 600 mg PO TID amoxicillin-pot clavulanate 875-125 mg tablet 1 tab PO Q12H Patient Comments: Pt stopped taking 08/21/22 CT docusate sodium 100 mg capsule 100 mg PO BID folic acid 1 mg tablet 1 mg PO DAILY melatonin 3 mg tablet 3 mg PO HS PRN pantoprazole 40 mg tablet,delayed release (DR/EC) 40 mg PO DAILY polyethylene glycol 3350 17 gram powder in packet 17 g PO DAILY ferrous gluconate 324 mg (37.5 mg iron) tablet 324 mg PO BID betamethasone dipropionate 0.05 % ointment 1 applic topical BID norethindrone (contraceptive) 0.35 mg tablet 0.35 mg PO DAILY Qty: 28 0RF Acetaminophen [Tylenol] 650 mg PO Q4H PRN PRNQty: 0 0RF buprenorphine-naloxone [Suboxone] 8-2 mg film 2 film sublingual DAILY Patient Comments: PLACE TWO FILMS UNDER THE TONGUE EVERY DAY FOR 7 DAYS ibuprofen 800 mg tablet 800 mg PO TID PRN PRN Rx Instructions: TAKE ONE TABLET BY MOUTH THREE TIMES A DAY NEEDED FOR PAIN Medical Decision Making Patient is a pleasant 42-year-old female, accompanied by significant other, past medical history significant for hepatitis C, opiate abuse, bilateral below the knee amputations and amputations to several fingers, presenting today with chief complaint of pain swelling and erythema to the right medial thigh. She reports this began few days ago but greatly progressed over the past 24 hours. Began endorsing some fevers. States that she is generally been feeling unwell and has had significant pain. Patient reports that she is wheelchair-bound at baseline. Last bout of infection was several months ago per patient report. She denies being , states been several months since she was sexually active and is on contraception. On exam, patient appears chronically unwell. Exam of the right lower extremities significant for below the knee amputation. She is a large area concerning for abscess about the size of a cantaloupe in the medial thigh abutting the genitalia. She has no erythema, swelling or induration to the labia majora but she is point tender over this area. She denies any vaginal discharge or urinary symptoms. No pain in the abdomen. Erythema does track more lately down towards the medial aspect of the right knee. Patient is febrile with a temp of 37.6. Area was explored with an ultrasound, notably enlarged with several septations. Concern given the location of this potentially could track into the pelvis and feel that CT imaging is appropriate prior to drainage. Discussed this plan with the patient who is in agreement. Given her history and previous cultures, primarily concern for MRSA and will begin coverage with vancomycin. We will give fluids as well. Blood cultures obtained. Labs reviewed. Patient is a leukocytosis white count of 14.3. Lactate 2.4. Glucose 124. AST and alk phos are both slightly elevated but this does appear to be baseline for the patient. Albumin is also slightly low at 2.7 which again, appears to be baseline for the patient. Difficulty with IV access on the patient. Placing a second line. FINDINGS: SOFT TISSUES: There is a large abscess involving the adductor musculature of the medial upper thigh which measures approximately 14 cm cephalocaudal by 8 cm wide by 7 cm AP. There is overlying subcutaneous edema and cellulitis appearance. The abscess extends to the level of the skin anteriorly in the groin region. No gas in soft tissues. There are enlarged lymph nodes. OSSEOUS: There is a below-knee amputation. No fractures evident. No evidence of osteomyelitis. IMPRESSION: Large abscess in the medial upper right thigh involving the adductor musculature Given depth and the loculations, consulted with surgery as a feel the patient would tolerate this much better in the operating room. Dr. Mcdonnell is coming in to evaluate the patient with plan to go to the operating room. Plan for admission postop. At the end of my shift, waiting Dr. Mcdonnell to evaluate the patient, care transition to [facility] in event patient is further requirements. Patient does not drink alcohol, does not smoke cigarettes. Is on 16 mg of Suboxone dosing. HPI General Date/Time Provider Initiated Documentation: 03/14/23 13:11 . Limitations to Documentation: no limitations . Information obtained by: patient, family and RN notes reviewed . History of Present Illness 42 year old F presents to the emergency department with the chief complaint of right medial thigh swelling, redness, pain, described as severe, with intensity rated at 8. Quality is described as aching, and is localized to the right and lower extremity. Patient reports no radiation. Patient started experiencing this day(s) and it has been constant. No relieving factors improve symptom(s), Movement worsens symptoms . Patient notes fever/chills, malaise and rash; denies chest pain, diaphoresis, headaches, nausea/vomiting and shortness of breath. Patient did receive the following treatments prior to arrival, none Related Data Home Medications Medication Instructions Recorded Confirmed Acetaminophen [Tylenol] 650 mg PO Q4H PRN PRN ##0 07/27/21 08/21/22 cyclobenzaprine 10 mg tablet 10 mg PO HS PRN muscle spasm #30 01/30/22 08/21/22 tabs buprenorphine 8 mg-naloxone 2 mg 2 film sublingual DAILY 05/10/22 08/21/22 sublingual film (Suboxone) ibuprofen 800 mg tablet 800 mg PO TID PRN PRN 05/10/22 08/21/22 amoxicillin 875 mg-potassium 1 tab PO Q12H 05/31/22 08/21/22 clavulanate 125 mg tablet betamethasone dipropionate 0.05 % 1 applic topical BID 05/31/22 08/21/22 topical ointment docusate sodium 100 mg capsule 100 mg PO BID 05/31/22 08/21/22 ferrous gluconate 324 mg (37.5 mg 324 mg PO BID 05/31/22 08/21/22 iron) tablet folic acid 1 mg tablet 1 mg PO DAILY 05/31/22 08/21/22 gabapentin 600 mg tablet 600 mg PO TID 05/31/22 08/21/22 melatonin 3 mg tablet 3 mg PO HS PRN 05/31/22 08/21/22 pantoprazole 40 mg tablet,delayed 40 mg PO DAILY 05/31/22 08/21/22 release polyethylene glycol 3350 17 gram 17 g PO DAILY 05/31/22 08/21/22 oral powder packet apixaban 5 mg tablet 5 mg PO BID 06/02/22 08/21/22 norethindrone (contraceptive) 0.35 0.35 mg PO DAILY #28 tabs 01/22/23 mg tablet Previous Rx's Medication Instructions Recorded Acetaminophen [Tylenol] 650 mg PO Q4H PRN PRN ##0 07/27/21 cyclobenzaprine 10 mg tablet 10 mg PO HS PRN muscle spasm #30 01/30/22 tabs norethindrone (contraceptive) 0.35 0.35 mg PO DAILY #28 tabs 01/22/23 mg tablet Allergies Allergy/AdvReac Type Severity Reaction Status Date / Time No Known Allergies Allergy Verified 08/21/22 09:58 General Stated Complaint: Cellulitis LEIF: 3 Review of Systems Constitutional Constitutional: Reports as per HPI Musculoskeletal Musculoskeletal: Reports as per HPI Integumentary/Breasts Skin/Breast: Reports as per HPI Neurologic Neurologic: Reports as per HPI [facility] All Active Problems (Updated 03/14/23 @ 16:16 by AUBREE Cat) Abscess of right thigh (Acute) Leg wound, right (Acute) Anemia (Chronic) Gangrene of left foot (Acute) Retained foreign body (Acute) Vulvar cellulitis (Acute) History of herpes genitalis (Acute) Vulvar pain (Acute) Open wound of finger of right hand (Acute) Cellulitis of toe of left foot (Acute) Abnormal finding on imaging (Acute) Abnormal MRI (Acute) Dysuria (Acute) 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 Patient has appointment at [facility] in [place] for consideration of termination History of intravenous drug abuse (Acute) Cellulitis of left lower extremity (Acute) Poor intravenous access (Acute) Chronic infection as complication of amputation (Acute) Heart murmur (Acute) Hypotension (Chronic) Petechial rash (Acute) Acute on chronic anemia (Acute) Osteomyelitis of right lower extremity (Chronic) DVT, lower extremity, distal, acute (Acute) 10/24 2018 left lower extremity. Rx with Eliquis. Abnormal uterine bleeding (AUB) (Acute) On. Set 10/24/2018 heavy flow coinciding with initiation of Eliquis Normocytic hypochromic anemia (Acute) 10/26/2018 hemoglobin 8.2 MCV 83 Medical History Cellulitis of finger of right hand Endometriosis Hx of hepatitis C AB +. No viral load. Hx of opioid abuse Currently in treatment at [facility]. Suboxone. Leg wound, right Raynaud disease Tenosynovitis of finger Surgical History Complete below knee amputation of right lower extremity 2018. 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 [facility]. 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 H/O hand surgery contracted post-op History of transesophageal echocardiography (YG) negative Retained foreign body L groin, s/p unsuccessful exploratory surgery Family History Father Diabetes Paternal Grandfather Diabetes Paternal Aunt Diabetes Maternal Grandmother Breast cancer Maternal Aunt Multiple sclerosis Social History Smoking/Tobacco Use Status: Never Smoking risk assessment performed?: Yes Alcohol Intake: former Drug use: Current Sobriety Substance use type: former substance user, crack/cocaine, heroin and methamphetamine Details: former cocaine (snorted, smoked, IV) and heroin use (IV), as well as crystal meth (IV). Patient is currently enrolled at [facility], on suboxone Household members: children and other Details: Patient resides at her sister's house with her daughter Housing: apartment Number of Children: 1 current occupation: Unemployed Sexually active: Yes Do you think of yourself as: straight/heterosexual Current gender identity: female Seatbelt use: always Do you feel safe at home: Yes Do you feel safe in your relationship?: Yes Additional Social history: Ambulates with crutches - 2 falls recently Exam Const General: cooperative, not healthy appearing, uncomfortable, no acute distress, well developed and ill appearing chronically Nutritional Appearance: average body habitus and well nourished Orientation: alert and awake Resp Effort & Inspection: normal respiratory effort, able to speak in complete sentences and no respiratory distress Cardio Rate: regular rate Rhythm: regular rhythm GI Inspection: normal to inspection Palpation: soft, not rigid and nontender External Female Exam: normal external appearance, no erythema and externally tender on the right (no erythemia, induration, fluctuance into this area but tender) Skin General skin exam: erythema, fluctuance and induration Neuro General: patient alert and patient awake Cognition: normal cognition Speech: speech normal Gait: gait abnormal (wheelchair at baseline) Sensory Exam: no sensory deficits noted Extrem Upper/lower leg/hip images: 2 1. Area of maximal tenderness, swelling, fluctuance and erythema. Erythema does spread away from this as well down the medial aspect of the right thigh. Psych Appearance: grossly normal and well kempt Mental Status: mental status grossly normal Speech and Movement: speech and movement normal Course Vital Signs Vital signs: Vital Signs Temperature 37.6 C H 03/14/23 12:51 Pulse 85 03/14/23 12:51 Respiratory Rate 16 03/14/23 12:51 Blood Pressure 115/84 03/14/23 12:51 Pulse Oximetry 96 03/14/23 12:51 Temperature 37.6 C H 03/14/23 13:01 Temperature Source Oral 03/14/23 12:51 Pulse 85 03/14/23 12:51 Respiratory Rate 16 03/14/23 12:51 Respiratory Effort Normal, Non-Labored 03/14/23 13:01 Blood Pressure 115/84 03/14/23 12:51 Blood Pressure Position Sitting 03/14/23 12:51 Pulse Oximetry 96 03/14/23 12:51 Oxygen Delivery Method Room Air 03/14/23 12:51 Oxygen Flow Rate 0 03/14/23 12:51 Pain Level 8 03/14/23 12:51 Lab/Test Results Lab/Test Results: 03/14/23 14:00 Blood Blood Culture - Pending 03/14/23 13:27 Blood Blood Culture - Pending Laboratory Tests Range/Units 03/14/23 14:00 WBC (4.4-10.8) 10^3/uL 14.31 H RBC (3.93-5.22) 10^6/uL 4.04 Hgb (11.2-15.7) g/dL 12.0 Hct (36.0-46.0) % 36.8 MCV (80-95) fL 91 MCH (27.0-33.0) pg 29.7 MCHC (32.0-36.0) % 32.6 RDW (11.7-14.6) % 12.1 Plt Count (130-400) 10^3/uL 261 MPV (8.0-11.0) fL 10.1 Immature Gran % 0.5 Neutrophils % 86.3 Lymphocytes % 5.7 Monocytes % 6.5 Eosinophils % 0.7 Basophils % 0.3 Nucleated RBC % (0.0-0.3) % 0.0 Absolute Neutrophils (1.2-6.7) 10^3/uL 12.35 H Absolute Lymphocytes (1.2-3.4) 10^3/uL 0.82 L Absolute Monocytes (0.1-0.8) 10^3/uL 0.93 H Absolute Eosinophils (0.0-0.7) 10^3/uL 0.10 Absolute Basophils (0.0-0.2) 10^3/uL 0.04 VBG Lactate (0.6-1.4) mmol/L 2.4 H* COVID-19 Source Nasal/Nares
[2023-03-14 14:30] LABS: ALT 47 U/L (14-59); AST 38 U/L (15-37); Albumin 2.7 g/dL (3.4-5.0); Alkaline Phosphatase 143 U/L (46-116); Anion Gap 10.8 mmol/L (3-11); BUN 12 mg/dL (7-18); Bilirubin, Total 0.5 mg/dL (0.2-1.0); CO2 27.2 mmol/L (21.0-32.0); CREATININE 0.7 mg/dL (0.55-1.02); Calcium 9.5 mg/dL (8.5-10.1); Chloride 99 mmol/L (98-107); Estimated GFR 112.05 (mL/min/1.73m2); Glucose 124 mg/dL (74-106); Magnesium 1.8 mg/dL (1.8-2.4); Potassium 3.8 mmol/L (3.5-5.1); Sodium 137 mmol/L (136-145); Total Protein 8.8 g/dL (6.4-8.2)
[2023-03-14 15:04] LABS: COVID-19 PCR Negative (Negative)
--- NOTE | 2023-03-14 15:07 | NUR.NOTE ---
Nursing Note: CT scan ordered with pt electing to continue with scan w/o test. Pt states there's absolutely no chance that she is . Pt states she recently had her period and hasn't had sex in two months. Waiver secured with provider and pt signature and scanned into chart. See media.
[2023-03-14] MEDS: Omnipaque 350 MG/ML 100 ML BTL IJ (15:22)
[2023-03-14] MEDS: Normal Saline - Diluent 50 ML VIAL IV (15:24)
[2023-03-14] MEDS: ACETAMINOPHEN 1,000 MG/100 ML BTL 400 MG IVPB (15:44)
[2023-03-14] MEDS: VANCOMYCIN 1,000 MG in Normal Saline 250 ML 166.6666 MG IVPB (15:45)
--- NOTE | 2023-03-14 16:46 | ANES.PREOP_ITS ---
General Info Date of Service Date Performed: 03/14/23 Height: 4 ft 1 in Weight: 61.235 kg Body Mass Index (BMI): 39.5 Meds Allergies and Home Medications Allergies Allergy/AdvReac Type Severity Reaction Status Date / Time No Known Allergies Allergy Verified 08/21/22 09:58 Home Medication Medication Instructions Recorded Acetaminophen [Tylenol] 650 mg PO Q4H PRN PRN ##0 07/27/21 cyclobenzaprine 10 mg tablet 10 mg PO HS PRN muscle spasm #30 01/30/22 tabs buprenorphine 8 mg-naloxone 2 mg 2 film sublingual DAILY 05/10/22 sublingual film (Suboxone) ibuprofen 800 mg tablet 800 mg PO TID PRN PRN 05/10/22 amoxicillin 875 mg-potassium 1 tab PO Q12H 05/31/22 clavulanate 125 mg tablet betamethasone dipropionate 0.05 % 1 applic topical BID 05/31/22 topical ointment docusate sodium 100 mg capsule 100 mg PO BID 05/31/22 ferrous gluconate 324 mg (37.5 mg 324 mg PO BID 05/31/22 iron) tablet folic acid 1 mg tablet 1 mg PO DAILY 05/31/22 gabapentin 600 mg tablet 600 mg PO TID 05/31/22 melatonin 3 mg tablet 3 mg PO HS PRN 05/31/22 pantoprazole 40 mg tablet,delayed 40 mg PO DAILY 05/31/22 release polyethylene glycol 3350 17 gram 17 g PO DAILY 05/31/22 oral powder packet apixaban 5 mg tablet 5 mg PO BID 06/02/22 norethindrone (contraceptive) 0.35 0.35 mg PO DAILY #28 tabs 01/22/23 mg tablet Current Visit Medications: Current Medications Generic Name Dose Route Start Last Admin Trade Name Freq PRN Reason Stop Dose Admin Ringer's Solution 1,000 mls @ 1,000 mls/hr 03/14/23 16:17 IV 03/14/23 17:16 BOLUS ONE IV Miscellaneous Supplies 1 each 03/14/23 13:30 Iv Access-Emergency Dept IV DIRECTED JOLEEN Iohexol 100 ml 03/14/23 15:30 03/14/23 15:22 Omnipaque 350 Mg/Ml 100 Ml Btl IJ 04/13/23 23:59 100 ml DIRECTED JOLEEN Administration Sodium Chloride 0 ml 03/14/23 13:27 Normal Saline Flush 10 Ml Syr IVP PRN PRN Sodium Chloride 50 ml 03/14/23 15:30 03/14/23 15:24 Normal Saline - Diluent 50 Ml Vial IV 50 ml .FOR DI USE JOLEEN Administration PFSH Active Problems Active Problems: Problem Status Onset Code Abscess of right thigh L02.415 Leg wound, right S81.801A Anemia D64.9 Gangrene of left foot I96 Retained foreign body Z18.9 Vulvar cellulitis N76.2 History of herpes genitalis Z86.19 Vulvar pain R10.2 Open wound of finger of right hand S61.209A Cellulitis of toe of left foot L03.032 Abnormal finding on imaging R93.89 Abnormal MRI R93.89 Dysuria R30.0 Chronic ulcer of great toe of left foot with fat layer exposed L97.522 Cellulitis of toe of left foot L03.032 Z34.90 History of intravenous drug abuse F19.11 Cellulitis of left lower extremity L03.116 Poor intravenous access Z78.9 Chronic infection as complication of amputation T87.40 Heart murmur R01.1 Hypotension I95.9 Petechial rash R23.3 Acute on chronic anemia D64.9 Osteomyelitis of right lower extremity M86.9 DVT, lower extremity, distal, acute I82.4Z9 Abnormal uterine bleeding (AUB) N93.9 Normocytic hypochromic anemia D50.9 Medical History Medical History Cellulitis of finger of right hand Endometriosis Hx of hepatitis C AB +. No viral load. Hx of opioid abuse Currently in treatment at [facility]. Suboxone. Leg wound, right Raynaud disease Tenosynovitis of finger Surgical History Surgical History Complete below knee amputation of right lower extremity 2018. 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 [facility]. 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 H/O hand surgery contracted post-op History of transesophageal echocardiography (YG) negative Retained foreign body L groin, s/p unsuccessful exploratory surgery Tobacco Smoking/Tobacco Use Status: Never Alcohol Alcohol Intake: former Substance Use Substance use: Current Sobriety Substance use type: former substance user, crack/cocaine, heroin and methamphetamine Details: former cocaine (snorted, smoked, IV) and heroin use (IV), as well as crystal meth (IV). Patient is currently enrolled at [facility], on suboxone Vital Signs and Lab Results Vital Signs Most Recent Vital Signs in EMR: Most Recent Vital Signs Temp Pulse Resp BP Pulse Ox 37.6 C H 85 16 115/84 96 03/14/23 13:01 03/14/23 12:51 03/14/23 12:51 03/14/23 12:51 03/14/23 12:51 Lab Results 03/14/23 14:00 03/14/23 14:00 Blood Type / Crossmatch: 2 No Data to Display Complete Blood Count: 2 White Blood Count 14.31 10^3/uL (4.4-10.8) H 03/14/23 14:00 Red Blood Count 4.04 10^6/uL (3.93-5.22) 03/14/23 14:00 Hemoglobin 12.0 g/dL (11.2-15.7) 03/14/23 14:00 Hematocrit 36.8 % (36.0-46.0) 03/14/23 14:00 Platelet Count 261 10^3/uL (130-400) 03/14/23 14:00 Venous Blood Lactate 2.4 mmol/L (0.6-1.4) H* 03/14/23 14:00 Complete Metabolic Panel: 2 Sodium 137 mmol/L (136-145) 03/14/23 14:00 Potassium 3.8 mmol/L (3.5-5.1) 03/14/23 14:00 Chloride 99 mmol/L (98-107) 03/14/23 14:00 Carbon Dioxide 27.2 mmol/L (21.0-32.0) 03/14/23 14:00 BUN 12 mg/dL (7-18) 03/14/23 14:00 Creatinine 0.7 mg/dL (0.55-1.02) 03/14/23 14:00 Est GFR (CKD-EPI 2020) 112.05 (mL/min/1.73m2) 03/14/23 14:00 Magnesium 1.8 mg/dL (1.8-2.4) 03/14/23 14:00 Calcium 9.5 mg/dL (8.5-10.1) 03/14/23 14:00 Albumin 2.7 g/dL (3.4-5.0) L 03/14/23 14:00 Glucose 124 mg/dL (74-106) H 03/14/23 14:00 Liver Function Panel: 2 Alanine Aminotransferase (ALT/SGPT) 47 U/L (14-59) 03/14/23 14: 00 Aspartate Amino Transf (AST/SGOT) 38 U/L (15-37) H 03/14/23 14: 00 Coagulation Panel: 2 No Data to Display Cardiac Panel: 2 No Data to Display Arterial Blood Gas: 2 No Data to Display Venous Blood Gas: 2 No Data to Display Pancreas Panel: 2 No Data to Display Thyroid Panel: 2 No Data to Display Infectious Disease: 2 Coronavirus (COVID-19)(PCR) Negative (Negative) 03/14/23 14:00 Coronavirus 2019 Source Nasal/Nares 03/14/23 14:00 Blood Cultures: 2 No Data to Display Toxicology Panel: 2 No Data to Display Panel: 2 No Data to Display Imaging and Studies Imaging and Studies Study information below may be from another EMR and interpreted by another provider. Please see original notes in EMR for more complete details. Echocardiogram Summary: 02/09/22: [facility] [place], YG, EF 65%, mild MR, ascending aorta is 3.9 cm. Possible mitral very small area of vegetation. 10/2018: *STUDY CONCLUSIONS* Impressions: There are no typical features of vegetative endocarditis. However, this diagnosis cannot be excluded on the basis of this transthoracic study. Consider transesophageal echocardiography, if clinically indicated, for superior assessment of valve anatomy. Summary: 1. Left ventricle: The cavity size was normal. Systolic function was normal. The estimated ejection fraction was 60-65%. Diastolic parameters were normal for age. There was no evidence of elevated ventricular filling pressure by Doppler parameters. 2. Mitral valve: There was mild regurgitation. 3. Right ventricle: The cavity size was normal. Wall thickness was normal. Systolic function was normal. 4. Atrial septum: No defect or patent foramen ovale was identified. 5. Pulmonary arteries: Pulmonary systolic pressure was in the range of 30mm Hg to 40mm Hg. 6. Inferior vena cava: The vessel was patent and normal in size. The respirophasic diameter changes were in the normal range (greater than or equal to 50%), consistent with normal central venous pressure. Anesthesia Assessment and Plan Anesthesia History Personal History: No History of Anesthesia Complications Family History: No Family History of Anesthesia Complications Exercise Tolerance Exercise Tolerance: Metabolic Equivalents>4 Pertinent Negatives Pertinent Negatives: No Symptoms of GERD, No Major Cardiovascular Symptoms or Complaints and No Major Pulmonary Symptoms or Complaints Cardiac & Pulmonary Exam Cardiac Exam: Normal S1/S2 Heart Sounds Pulmonary Exam: Clear Bilateral Breath Sounds Implantable Cardiac Device Does patient have a Pacemaker or an ICD?: No Airway Exam Known Difficult Airway: No Mallampati Class: 2 Mouth Opening: Normal (> 3cm) Thyromental Distance: Greater than 3 cm Neck Range of Motion: Full ROM Neck Circumference: Normal Teeth Condition: Generalized Poor Dentition ASA Classification ASA Score: ASA 3 Emergency Case?: No NPO Status NPO Status: NPO Clears >2 hours, Solids >8 hours Status Status: Pt. refuses testing, she was counseled on anesthesia risks Anesthesia Plan Resuscitation Status: Full Code Anesthesia Technique: General Anesthesia Airway Planned: LMA Monitors Used: Standard Monitors
--- NOTE | 2023-03-14 16:54 | W.ED.GENAD ---
Discharge Plan Disposition Patient Disposition: Admit to [facility] Condition: Poor Discharge Details Clinical Impression: Abscess of right thigh Primary Care Provider: Georgette Reza ED Provider: Nuvia Pruitt Home Meds and New Rx's Prescriptions: No Action cyclobenzaprine 10 mg tablet 10 mg PO HS PRN (Reason: muscle spasm) Qty: 30 1RF apixaban 5 mg tablet 5 mg PO BID Patient Comments: Pt stopped taking this 08/21/22 CT gabapentin 600 mg tablet 600 mg PO TID amoxicillin-pot clavulanate 875-125 mg tablet 1 tab PO Q12H Patient Comments: Pt stopped taking 08/21/22 CT docusate sodium 100 mg capsule 100 mg PO BID folic acid 1 mg tablet 1 mg PO DAILY melatonin 3 mg tablet 3 mg PO HS PRN pantoprazole 40 mg tablet,delayed release (DR/EC) 40 mg PO DAILY polyethylene glycol 3350 17 gram powder in packet 17 g PO DAILY ferrous gluconate 324 mg (37.5 mg iron) tablet 324 mg PO BID betamethasone dipropionate 0.05 % ointment 1 applic topical BID norethindrone (contraceptive) 0.35 mg tablet 0.35 mg PO DAILY Qty: 28 0RF Acetaminophen [Tylenol] 650 mg PO Q4H PRN PRNQty: 0 0RF buprenorphine-naloxone [Suboxone] 8-2 mg film 2 film sublingual DAILY Patient Comments: PLACE TWO FILMS UNDER THE TONGUE EVERY DAY FOR 7 DAYS ibuprofen 800 mg tablet 800 mg PO TID PRN PRN Rx Instructions: TAKE ONE TABLET BY MOUTH THREE TIMES A DAY NEEDED FOR PAIN Medical Decision Making Care of patient has been handed off to Dr. Mcdonnell from general surgery patient to be admitted to the OR and then to the medical surgical unit for further management HPI General Date/Time Provider Initiated Documentation: 03/14/23 13:11. Limitations to Documentation: no limitations. Information obtained by: patient, family and RN notes reviewed. History of Present Illness with intensity rated at 8. Quality is described as aching, and is localized to the right and lower extremity. No relieving factors improve symptom(s), Movement worsens symptoms . Patient notes fever/chills, malaise and rash; denies chest pain, diaphoresis, headaches, nausea/vomiting and shortness of breath. Patient did receive the following treatments prior to arrival, none Related Data Home Medications Medication Instructions Recorded Confirmed Acetaminophen [Tylenol] 650 mg PO Q4H PRN PRN ##0 07/27/21 08/21/22 cyclobenzaprine 10 mg tablet 10 mg PO HS PRN muscle spasm #30 01/30/22 08/21/22 tabs buprenorphine 8 mg-naloxone 2 mg 2 film sublingual DAILY 05/10/22 08/21/22 sublingual film (Suboxone) ibuprofen 800 mg tablet 800 mg PO TID PRN PRN 05/10/22 08/21/22 amoxicillin 875 mg-potassium 1 tab PO Q12H 05/31/22 08/21/22 clavulanate 125 mg tablet betamethasone dipropionate 0.05 % 1 applic topical BID 05/31/22 08/21/22 topical ointment docusate sodium 100 mg capsule 100 mg PO BID 05/31/22 08/21/22 ferrous gluconate 324 mg (37.5 mg 324 mg PO BID 05/31/22 08/21/22 iron) tablet folic acid 1 mg tablet 1 mg PO DAILY 05/31/22 08/21/22 gabapentin 600 mg tablet 600 mg PO TID 05/31/22 08/21/22 melatonin 3 mg tablet 3 mg PO HS PRN 05/31/22 08/21/22 pantoprazole 40 mg tablet,delayed 40 mg PO DAILY 05/31/22 08/21/22 release polyethylene glycol 3350 17 gram 17 g PO DAILY 05/31/22 08/21/22 oral powder packet apixaban 5 mg tablet 5 mg PO BID 06/02/22 08/21/22 norethindrone (contraceptive) 0.35 0.35 mg PO DAILY #28 tabs 01/22/23 mg tablet Previous Rx's Medication Instructions Recorded Acetaminophen [Tylenol] 650 mg PO Q4H PRN PRN ##0 07/27/21 cyclobenzaprine 10 mg tablet 10 mg PO HS PRN muscle spasm #30 01/30/22 tabs norethindrone (contraceptive) 0.35 0.35 mg PO DAILY #28 tabs 01/22/23 mg tablet Allergies Allergy/AdvReac Type Severity Reaction Status Date / Time No Known Allergies Allergy Verified 08/21/22 09:58 General Stated Complaint: Cellulitis LEIF: 3 PFSH All Active Problems (Updated 03/14/23 @ 16:16 by AUBREE Cat) Abscess of right thigh (Acute) Leg wound, right (Acute) Anemia (Chronic) Gangrene of left foot (Acute) Retained foreign body (Acute) Vulvar cellulitis (Acute) History of herpes genitalis (Acute) Vulvar pain (Acute) Open wound of finger of right hand (Acute) Cellulitis of toe of left foot (Acute) Abnormal finding on imaging (Acute) Abnormal MRI (Acute) Dysuria (Acute) 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 Patient has appointment at [facility] in [place] for consideration of termination History of intravenous drug abuse (Acute) Cellulitis of left lower extremity (Acute) Poor intravenous access (Acute) Chronic infection as complication of amputation (Acute) Heart murmur (Acute) Hypotension (Chronic) Petechial rash (Acute) Acute on chronic anemia (Acute) Osteomyelitis of right lower extremity (Chronic) DVT, lower extremity, distal, acute (Acute) 10/24 2018 left lower extremity. Rx with Eliquis. Abnormal uterine bleeding (AUB) (Acute) On. Set 10/24/2018 heavy flow coinciding with initiation of Eliquis Normocytic hypochromic anemia (Acute) 10/26/2018 hemoglobin 8.2 MCV 83 Medical History Cellulitis of finger of right hand Endometriosis Hx of hepatitis C AB +. No viral load. Hx of opioid abuse Currently in treatment at [facility]. Suboxone. Leg wound, right Raynaud disease Tenosynovitis of finger Surgical History Complete below knee amputation of right lower extremity 2018. 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 [facility]. 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 H/O hand surgery contracted post-op History of transesophageal echocardiography (YG) negative Retained foreign body L groin, s/p unsuccessful exploratory surgery Family History Father Diabetes Paternal Grandfather Diabetes Paternal Aunt Diabetes Maternal Grandmother Breast cancer Maternal Aunt Multiple sclerosis Social History Smoking/Tobacco Use Status: Never Smoking risk assessment performed?: Yes Alcohol Intake: former Drug use: Current Sobriety Substance use type: former substance user, crack/cocaine, heroin and methamphetamine Details: former cocaine (snorted, smoked, IV) and heroin use (IV), as well as crystal meth (IV). Patient is currently enrolled at [facility], on suboxone Household members: children and other Details: Patient resides at her sister's house with her daughter Housing: apartment Number of Children: 1 current occupation: Unemployed Sexually active: Yes Do you think of yourself as: straight/heterosexual Current gender identity: female Seatbelt use: always Do you feel safe at home: Yes Do you feel safe in your relationship?: Yes Additional Social history: Ambulates with crutches - 2 falls recently Course Vital Signs Vital signs: Vital Signs Temperature 37.6 C H 03/14/23 12:51 Pulse 85 03/14/23 12:51 Respiratory Rate 16 03/14/23 12:51 Blood Pressure 115/84 03/14/23 12:51 Pulse Oximetry 96 03/14/23 12:51 Temperature 37.6 C H 03/14/23 13:01 Temperature Source Oral 03/14/23 12:51 Pulse 85 03/14/23 12:51 Respiratory Rate 16 03/14/23 12:51 Respiratory Effort Normal, Non-Labored 03/14/23 13:01 Blood Pressure 115/84 03/14/23 12:51 Blood Pressure Position Sitting 03/14/23 12:51 Pulse Oximetry 96 03/14/23 12:51 Oxygen Delivery Method Room Air 03/14/23 12:51 Oxygen Flow Rate 0 03/14/23 12:51 Pain Level 8 03/14/23 12:51 Lab/Test Results Lab/Test Results: 03/14/23 15:07 Blood Blood Culture - Pending 03/14/23 14:00 Blood Blood Culture - Pending Laboratory Tests Range/Units 03/14/23 14:00 WBC (4.4-10.8) 10^3/uL 14.31 H RBC (3.93-5.22) 10^6/uL 4.04 Hgb (11.2-15.7) g/dL 12.0 Hct (36.0-46.0) % 36.8 MCV (80-95) fL 91 MCH (27.0-33.0) pg 29.7 MCHC (32.0-36.0) % 32.6 RDW (11.7-14.6) % 12.1 Plt Count (130-400) 10^3/uL 261 MPV (8.0-11.0) fL 10.1 Immature Gran % 0.5 Neutrophils % 86.3 Lymphocytes % 5.7 Monocytes % 6.5 Eosinophils % 0.7 Basophils % 0.3 Nucleated RBC % (0.0-0.3) % 0.0 Absolute Neutrophils (1.2-6.7) 10^3/uL 12.35 H Absolute Lymphocytes (1.2-3.4) 10^3/uL 0.82 L Absolute Monocytes (0.1-0.8) 10^3/uL 0.93 H Absolute Eosinophils (0.0-0.7) 10^3/uL 0.10 Absolute Basophils (0.0-0.2) 10^3/uL 0.04 VBG Lactate (0.6-1.4) mmol/L 2.4 H* Sodium (136-145) mmol/L 137 Potassium (3.5-5.1) mmol/L 3.8 Chloride (98-107) mmol/L 99 Carbon Dioxide (21.0-32.0) mmol/L 27.2 Anion Gap (3-11) mmol/L 10.8 BUN (7-18) mg/dL 12 Creatinine (0.55-1.02) mg/dL 0.7 Est GFR (CKD-EPI 2020) (mL/min/1.73m2) 112.05 Glucose (74-106) mg/dL 124 H Calcium (8.5-10.1) mg/dL 9.5 Magnesium (1.8-2.4) mg/dL 1.8 Total Bilirubin (0.2-1.0) mg/dL 0.5 AST (15-37) U/L 38 H ALT (14-59) U/L 47 Alkaline Phosphatase (46-116) U/L 143 H Total Protein (6.4-8.2) g/dL 8.8 H Albumin (3.4-5.0) g/dL 2.7 L COVID-19 Source Nasal/Nares SARS-CoV-2 (PCR) (Negative) Negative Sign Out Sign Out Data: Sign Out Comment: Care transition to Nuvia Pruitt NP. Disposition is set, plan for operating room with Dr. Mcdonnell and subsequent admission. Care transition during this time in event of further needs of the patient. Patient's been n.p.o. since this morning. Received IV vancomycin and IV fluids. Last updated by Kerry Arora PA at 03/14/23 16:17
--- NOTE | 2023-03-14 17:24 | HPE_ITS ---
Assessment and Plan Assessment and plan (1) Abscess of right thigh: Status: Acute Assessment and plan: Lindsay is a 42-year-old female who comes in with an abscess of her right inner thigh. We discussed incision and drainage in the operating room. I discussed with her that the wound would be left open and packed. I will most likely place a wound VAC tomorrow. We will do cultures. We will continue her on IV antibiotics until we have the results. The procedure was explained to her as well as the possible complications. After conversation the patient had a good understanding of both the procedure and the possible complications. Complications include but are not limited to bleeding, recurrent infection, injury to underlying nerves and muscles the bypass graft, need for a second surgery. The patient had a chance to ask questions which I answered to her satisfaction and she wished to proceed with incision and drainage of a right inner thigh abscess. Patient will have cultures done. She was already given a dose of vancomycin in the emergency department. We will also have anesthesia try to get a midline IV as she has poor peripheral access. History of Present Illness Consults Consult date: 03/14/23 Requesting physician: Kerry Morales arrative: Lindsay is a pleasant 42-year-old female comes into the emergency department today because of pain, swelling and redness of her right inner thigh. Patient has a history of multiple abscesses in the past. She had aneurysms in her femoral arteries which she ended up with bilateral below-knee amputations. She does also have a graft it sounds like a femoropopliteal bypass in her right leg. She has had several fingers on her left hand amputated and one finger on her right hand amputated. She has a history of IV drug abuse in the past. She is currently clean and sober. She does not smoke, drink or do IV drugs at this time. She is on Suboxone. She denies any fevers. She has not had any nausea, vomiting or abdominal pain. It sounds like she may have have endocarditis at one point which she was treated for. CT scan done in the emergency department which I reviewed today shows a large abscess in her right inner thigh which is multiloculated. It does not seem to involve the graft on that side. Review of Systems Constitutional Constitutional: Denies anorexia, Denies fatigue, Denies fever(s), Denies headache(s) and Denies weight loss Eyes Eyes: Denies blurry vision and Denies change in vision ENT Ears, Nose, Mouth, and Throat: Denies change in voice, Denies dysphagia, Denies headache(s) and Denies mouth lesions Cardiovascular Cardiovascular: Denies chest pain, Denies chest pain at rest, Denies irregular heart rhythm, Denies palpitations and Denies dyspnea Respiratory Respiratory: Denies cough and Denies dyspnea Gastrointestinal Gastrointestinal: Denies abdominal pain, Denies dysphagia, Denies dyspepsia and Denies heartburn Genitourinary Genitourinary: Denies hematuria and Denies difficulty voiding Musculoskeletal Musculoskeletal: Reports as per HPI Integumentary/Breasts Skin/Breast: Reports system reviewed and no additional complaints, except as documented Neurologic Neurologic: Reports system reviewed and no additional complaints, except as documented and Denies headache(s) Psychiatric Psychiatric: Reports system reviewed and no additional complaints, except as documented Endocrine Endocrine: Reports system reviewed and no additional complaints, except as documented, Denies fatigue and Denies palpitations Hematologic/Lymphatic Hematologic/Lymphatic: Denies easy bleeding, Denies easy bruising and Denies lymphadenopathy Allergic/Immunologic Allergic/Immunologic: Reports system reviewed and no additional complaints, except as documented [facility] All Active Problems (Updated 03/14/23 @ 16:16 by AUBREE Cat) Abscess of right thigh (Acute) Leg wound, right (Acute) Anemia (Chronic) Gangrene of left foot (Acute) Retained foreign body (Acute) Vulvar cellulitis (Acute) History of herpes genitalis (Acute) Vulvar pain (Acute) Open wound of finger of right hand (Acute) Cellulitis of toe of left foot (Acute) Abnormal finding on imaging (Acute) Abnormal MRI (Acute) Dysuria (Acute) 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 [facility] has [facility] at [facility] in [place] for [facility] of termination History of intravenous drug abuse (Acute) Cellulitis of left lower extremity (Acute) Poor intravenous access (Acute) Chronic infection as complication of amputation (Acute) Heart murmur (Acute) Hypotension (Chronic) Petechial rash (Acute) Acute on chronic anemia (Acute) Osteomyelitis of right lower extremity (Chronic) DVT, lower extremity, distal, acute (Acute) 10/24 2018 left lower extremity. Rx with Eliquis. Abnormal uterine bleeding (AUB) (Acute) On. Set 10/24/2018 heavy flow coinciding with initiation of Eliquis Normocytic hypochromic anemia (Acute) 10/26/2018 hemoglobin 8.2 MCV 83 Medical History Cellulitis of finger of right hand Endometriosis Hx of hepatitis C AB +. No viral load. Hx of opioid abuse Currently in treatment at [facility]. Suboxone. Leg wound, right Raynaud disease Tenosynovitis of finger Surgical History Complete below knee amputation of right lower extremity 2018. 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 [facility]. 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 H/O hand surgery contracted post-op History of transesophageal echocardiography (YG) negative Retained foreign body L groin, s/p unsuccessful exploratory surgery Family History Father Diabetes Paternal Grandfather Diabetes Paternal Aunt Diabetes Maternal Grandmother Breast cancer Maternal Aunt Multiple sclerosis Social History Smoking/Tobacco Use Status: Never Smoking risk assessment performed?: Yes Alcohol Intake: former Drug use: Current Sobriety Substance use type: former substance user, crack/cocaine, heroin and methamphetamine Details: former cocaine (snorted, smoked, IV) and heroin use (IV), as well as crystal meth (IV). Patient is currently enrolled at [facility], on suboxone Household members: children and other Details: Patient resides at her sister's house with her daughter Housing: apartment Number of Children: 1 current occupation: Unemployed Sexually active: Yes Do you think of yourself as: straight/heterosexual Current gender identity: female Seatbelt use: always Do you feel safe at home: Yes Do you feel safe in your relationship?: Yes Additional Social history: Ambulates with crutches - 2 falls recently Meds Allergies and Home Medications Allergies Allergy/AdvReac Type Severity Reaction Status Date / Time No Known Allergies Allergy Verified 08/21/22 09:58 Home Medications Medication Instructions Recorded Confirmed Type Acetaminophen [Tylenol] 650 mg PO Q4H PRN PRN ##0 07/27/21 08/21/22 Rx cyclobenzaprine 10 mg tablet 10 mg PO HS PRN muscle spasm #30 01/30/22 08/21/22 Rx tabs buprenorphine 8 mg-naloxone 2 mg 2 film sublingual DAILY 05/10/22 08/21/22 History sublingual film (Suboxone) ibuprofen 800 mg tablet 800 mg PO TID PRN PRN 05/10/22 08/21/22 History amoxicillin 875 mg-potassium 1 tab PO Q12H 05/31/22 08/21/22 History clavulanate 125 mg tablet betamethasone dipropionate 0.05 % 1 applic topical BID 05/31/22 08/21/22 History topical ointment docusate sodium 100 mg capsule 100 mg PO BID 05/31/22 08/21/22 History ferrous gluconate 324 mg (37.5 mg 324 mg PO BID 05/31/22 08/21/22 History iron) tablet folic acid 1 mg tablet 1 mg PO DAILY 05/31/22 08/21/22 History gabapentin 600 mg tablet 600 mg PO TID 05/31/22 08/21/22 History melatonin 3 mg tablet 3 mg PO HS PRN 05/31/22 08/21/22 History pantoprazole 40 mg tablet,delayed 40 mg PO DAILY 05/31/22 08/21/22 History release polyethylene glycol 3350 17 gram 17 g PO DAILY 05/31/22 08/21/22 History oral powder packet apixaban 5 mg tablet 5 mg PO BID 06/02/22 08/21/22 History norethindrone (contraceptive) 0.35 0.35 mg PO DAILY #28 tabs 01/22/23 Rx mg tablet Exam Const General: cooperative, comfortable and no acute distress Nutritional Appearance: average body habitus Orientation: alert and oriented x3 HENMT Head: normocephalic and atraumatic Resp Effort & Inspection: normal respiratory effort Auscultation: clear to auscultation bilaterally Cardio Rate: regular rate Rhythm: regular rhythm Heart Sounds: no gallops, murmur and no rubs Extrem Other: Right upper inner thigh- There is a 10 x 15 cm area of erythema and induration. It is tender to palpation Results Imaging CT scan - pelvis: report reviewed and image reviewed Labs 03/14/23 14:00 03/14/23 14:00 Labs: Laboratory Results - last 24 hr 03/14/23 14:00 WBC 14.31 H RBC 4.04 Hgb 12.0 Hct 36.8 MCV 91 MCH 29.7 MCHC 32.6 RDW 12.1 Plt Count 261 MPV 10.1 Immature Gran % 0.5 Neutrophils % 86.3 Lymphocytes % 5.7 Monocytes % 6.5 Eosinophils % 0.7 Basophils % 0.3 Nucleated RBC % 0.0 Absolute Neutrophils 12.35 H Absolute Lymphocytes 0.82 L Absolute Monocytes 0.93 H Absolute Eosinophils 0.10 Absolute Basophils 0.04 VBG Lactate 2.4 H* Sodium 137 Potassium 3.8 Chloride 99 Carbon Dioxide 27.2 Anion Gap 10.8 BUN 12 Creatinine 0.7 Est GFR (CKD-EPI 2020) 112.05 Glucose 124 H Calcium 9.5 Magnesium 1.8 Total Bilirubin 0.5 AST 38 H ALT 47 Alkaline Phosphatase 143 H Total Protein 8.8 H Albumin 2.7 L COVID-19 Source Nasal/Nares SARS-CoV-2 (PCR) Negative Last Vital Signs Temp 99.7 F H 03/14/23 13:01 Pulse 85 03/14/23 12:51 Resp 16 03/14/23 12:51 BP 115/84 03/14/23 12:51 Pulse Ox 96 03/14/23 12:51
--- NOTE | 2023-03-14 17:45 | NUR.NOTE ---
Nursing Note: this RN handed gave report to Kalyani [employer]PRESENTATIVE.
[2023-03-14] MEDS: Lactated Ringers 1,000 ML 30 ML IV (17:46)
--- NOTE | 2023-03-14 18:57 | W.PM.OP ---
Date of service: 03/14/23 Time of Service: 18:57 Operative Note Operative Note DATE OF PROCEDURE: 03/14/23 PRE-OP DIAGNOSIS: right upper inner thigh abscess POST-OP DIAGNOSIS: same PROCEDURE: incision and drainage of abscess SURGEON: Karen Mcdonnell ANESTHESIA TYPE: General LMA/ETT Refer to Anesthesia Record ESTIMATED BLOOD LOSS: 25 PATHOLOGY: other (cultures for aerobic and anaerobic) COMPLICATIONS: None Patient was transported to: PACU Patient's condition: stable Indications: Lindsay is a 42-year-old female who comes in with an abscess of her right inner thigh. We discussed incision and drainage in the operating room. I discussed with her that the wound would be left open and packed. I will most likely place a wound VAC tomorrow. We will do cultures. We will continue her on IV antibiotics until we have the results. The procedure was explained to her as well as the possible complications. After conversation the patient had a good understanding of both the procedure and the possible complications. Complications include but are not limited to bleeding, recurrent infection, injury to underlying nerves and muscles the bypass graft, need for a second surgery. The patient had a chance to ask questions which I answered to her satisfaction and she wished to proceed with incision and drainage of a right inner thigh abscess. The right inner thigh was marked in the emergency department prior to taking the patient back to the operating room. Findings: 17 x 10.5 x 5 cm cavity with 50 cc of green thick purulent material Abscess cavity surrounded the muscle Procedure Description: After informed consent was obtained the patient was taken to the operating room and placed in a supine position on the operating table. Monitors were applied and the patient was placed under general anesthesia and an LMA was placed. A timeout was done. The patient's name, date of , allergies to medications, procedure to be done and site, antibiotic prophylaxis were reviewed. Fire risk was assessed. Next the patient's right inner thigh was prepped and draped in a sterile surgical fashion. An 18-gauge needle was then placed into the abscess and 20 cc of purulent fluid was removed and sent for aerobic and anaerobic cultures. Next an incision was made with a 10 blade measuring 3 cm. Dissection was taken down through the subcutaneous tissue with cautery until I entered the pocket of the abscess. Finger dissection of all the loculated areas was done. Approximately 50 cc of purulent discharge was suctioned out of the pocket. The abscess cavity was measured at 17 x 10.5 x 5 cm. Because of how much tunneling there was the incision was lengthened to approximately 15 cm. The sartorius muscle was noted to be involved within the abscess cavity. This was cleaned up. Necrotic tissue was removed with hemostats. The muscle itself looked healthy. I palpated for the bypass graft that was in that extremity but could not palpated it. The wound cavity was then irrigated with a pulse lavage automated teller manager with a liter of normal saline. Once the wound was irrigated I looked for bleeding. There was some mild oozing from the dermis which was cauterized. The wound was then packed with a moist Kerlix. An ABD pad was placed over that and secured with another Kerlix and an Brent bandage. The patient was transferred back to the [facility] and woken up and taken back to PACU in stable condition. Instrument, needle and instrument counts were correct at the end of the case. There were no immediate complications.
--- NOTE | 2023-03-14 19:08 | W.ANESVAS ---
Midline Placement Date Performed: 03/14/23 Procedure Time: 18:50 Requesting Provider: Karen Mcdonnell Procedure Location: Operating Room Sedation Given (Indicate Dose Given): No Sedation given Patient Mental Status: Performed under general anesthesia Sterility: Hand Hygiene, Surgical Cap, Surgical Mask, Sterile Gloves and Chlorhexidine Laterality: Left Insertion Site: Basilic Midline Device: PowerGlide Pro 20G Catheter Length: 8 cm Midline Procedure Procedure: 1% Lidocaine to skin and subcutaneous tissue with 25g needle, Vessel accessed with catheter over needle, Guidewire placed with ease, Catheter placed without resistance and Guidewire removed Dressing: Tegaderm Applied and Statlock Applied Blood Return: Present Flushes: Easily Ultrasound: Sterile probe cover and gel used Ultrasound Image Saved?: Yes Number of Attempts (See previous attempts in note section): 2 Procedure Tolerated: No Complications and Patient tolerated well Procedure Outcome: Successful Procedure Comment:: First attempt right basilic, small target, unable to advance catheter. second attempt with success, but deeper vessel not initially appreciated. Performed By: Rocky Coppola
[2023-03-14] MEDS: fentaNYL 100 MCG/2 ML VIAL IVP ×3 (19:15→19:44)
[2023-03-14] MEDS: HYDROmorphone 2 MG/ML SYR IVP ×2 (19:32→19:51)
[2023-03-14] MEDS: Docusate Sodium 100 MG CAP PO (21:40)
[2023-03-14] MEDS: Gabapentin 600 MG TAB PO (21:40)
[2023-03-14] MEDS: Lactated Ringers 1,000 ML 75 ML IV (21:40)
[2023-03-14] MEDS: Acetaminophen 500 MG TAB 1000 MG PO (21:41)
[2023-03-14] MEDS: Melatonin 3 MG TAB PO (21:41)
[2023-03-14] MEDS: Cyclobenzaprine 10 MG TAB PO (21:42)
[2023-03-14] MEDS: Ibuprofen 600 MG TAB PO (21:42)
--- NOTE | 2023-03-14 22:07 | W.ANESPOSTOP ---
Postoperative Evaluation Date, Time and Location Date Performed: 03/14/23 Time Performed: 20:10 Patient Location: PACU Vital Signs Most Recent Imported Vital Signs: Most Recent Vital Signs Temp Pulse Resp BP Pulse Ox 37.6 C H 82 14 137/94 H 98 03/14/23 20:10 03/14/23 20:10 03/14/23 20:10 03/14/23 20:10 03/14/23 20:10 Pain Score Most Recent Pain Score: Most Recent Pain Score Pain Level 4 03/14/232009 Assessment Mental Status: Awake (Alert & Oriented to Patient Baseline) Airway and Respiratory Function: Patent airway with normal (patient baseline) respiratory exam Cardiovascular Function: Hemodynamically Stable Hydration Status: Adequately Hydrated Nausea & Vomiting: No Nausea or Vomiting Pain: Pain is tolerable per patient Peripheral Nerve Block: Patient did not receive a nerve block
[2023-03-15] VITALS (9 sets, daily range): BP systolic 104–121; BP diastolic 53–92; PULSE 62–83; RESP 10–17; TEMP 36.6–37.1; O2SAT 96–98; BMI 39.4
--- NOTE | 2023-03-15 | DI.CT_ITS ---
Exam(s) CT LOWER EXTREMITY RT CTA EXAM: CT LOWER EXTREMITY RT CTA CLINICAL HISTORY: wound infection near femoral bypass TECHNIQUE: Omnipaque 350-100 mL intravenous Multiplanar reconstructions performed from axillary choir dataset. COMPARISON: CT CT LOWER EXTREMITY RT W from 03/14/2023 FINDINGS: Previously described abscess in the upper medial right thigh is again noted. There is an anteromedia l thigh skin wound now evident over the area of the abscess just anterior to the ipsilateral gracilis muscle. There is air-gas in subcutaneous tissue and abscess at this level. No drain seen. There is fluid medial to the gross a list muscle also noted but without a distinct ab scess at this level. CTA STUDY: Right BKA amputation evident. Abdominal aorta and mesenteric vessels are patent as are the bilateral renal arteries. No evidence o f abdominal aortic aneurysm Aortic bifurcation and both common iliac arteries are patent proximally. Both common iliac arteries are occluded at their junctions with the external iliac arteries. Satisfactory flow is demonstrated in both internal iliac arteries. There is no flow demonstrated within the bilateral common femoral arteries and SFA arteries. On the right side there is an occluded Gortex graft extending from the junction of the distal right c ommon iliac artery/external iliac artery/internal iliac artery. This graft extends through the sciat ic notch down through the thigh and terminates anteriorly, probably at level of profundal vessels. N evertheless, it is occluded. Profundal collaterals reconstitute thin flow in the ipsilateral poplite al artery. There is no evidence of popliteal artery aneurysm. Tibioperoneal trunk is thin. Amputat ion at this level. There is no gas as nor abscess evident at the level of the amputation stump. OTHER: There is no ascites. No significant focal hepatic lesions. Gallbladder is contracted. CBD not dila isabel. Pancreas appears unremarkable. Spleen size upper normal. No splenic lesions evident. No adre nal masses. Kidneys exhibit normal size with no focal lesions, calculi, or hydronephrosis nor eviden ce to suggest pyelonephritis. Abdominal aorta unremarkable. In pelvis uterus and adnexal regions appear unremarkable. No evidence of acute inflammatory process in either iliac fossa and no free fluid evident in the pelvis. Subcutaneous air over the anterior ri ght side of the pelvis is probably related to injection site. No abscess at this level. Osseous: No fractures. No lesions. No evidence of osteomyelitis. IMPRESSION: 1. 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 2. Right iliac to proximal right thigh arterial graft is occluded. 3. Right internal iliac artery is patent with collateralization to the distal thigh and reconstitutio n of flow in the ipsilateral popliteal artery. No evidence of popliteal artery aneurysm. Ipsilatera l below knee amputation without evidence of infection in the soft tissues. 4. Previously described significant abscess in the medial thigh adductor musculature is again noted. There is now prominent defect over this region in the skin and subcutaneous tissues which is probabl y postsurgical. Correlation with surgical history since prior CT scan 03/14/2023 recommended 5.
[2023-03-15] MEDS: Lactated Ringers 1,000 ML 75 ML IV ×2 (01:53→16:01)
[2023-03-15] MEDS: VANCOMYCIN 1,000 MG in Normal Saline 250 ML 250 MG IV (03:30)
[2023-03-15] MEDS: Buprenorphine/Naloxone 8 mg/2 mg FILM 2 EACH SL (07:53)
[2023-03-15] MEDS: Ferrous Gluconate 324 MG TAB PO ×2 (07:54→19:31)
[2023-03-15] MEDS: Folic Acid 1 MG TAB PO (07:54)
[2023-03-15] MEDS: Docusate Sodium 100 MG CAP PO ×2 (07:54→19:31)
[2023-03-15] MEDS: Gabapentin 600 MG TAB PO ×2 (07:55→19:31)
[2023-03-15] MEDS: Normal Saline Flush 10 ML SYR IVP ×2 (07:57→22:41)
[2023-03-15 07:59] LABS: Abs Immature Grans 0.06 10^3/uL (0.0-0.06); Absolute Basophil Count 0.02 10^3/uL (0.0-0.2); Absolute Eosinophil Count 0.02 10^3/uL (0.0-0.7); Absolute Lymphocyte Count 0.48 10^3/uL (1.2-3.4); Absolute Monocyte Count 0.66 10^3/uL (0.1-0.8); Basophils % 0.2; Eosinophils % 0.2; HCT 35.1 % (36.0-46.0); HGB 11.2 g/dL (11.2-15.7); Immature Grans % 0.5; MCH 29.2 pg (27.0-33.0); MCHC 31.9 % (32.0-36.0); MCV 92 fL (80-95); MPV 9.7 fL (8.0-11.0); Monocytes % 5.5; Neutrophils % 89.6; Platelet Count 201 10^3/uL (130-400); RBC 3.83 10^6/uL (3.93-5.22); RDW 12.2 % (11.7-14.6); RDW-SD 41.1 fL; WBC 12.03 10^3/uL (4.4-10.8)
[2023-03-15 08:00] LABS: Absolute Neutrophil Count 10.78 10^3/uL (1.2-6.7)
[2023-03-15 08:12] LABS: BUN 10 mg/dL (7-18); CREATININE 0.7 mg/dL (0.55-1.02); Calcium 9.1 mg/dL (8.5-10.1); Chloride 104 mmol/L (98-107); Estimated GFR 112.05 (mL/min/1.73m2); Glucose 124 mg/dL (74-106); Sodium 138 mmol/L (136-145)
[2023-03-15 12:42] LABS: HCG Qual (Serum) Negative
--- NOTE | 2023-03-15 13:15 | W.ANESPRE ---
General Info Date of Service Date Performed: 03/15/23 Height: 4 ft 1 in Weight: 61.2 kg Body Mass Index (BMI): 39.4 Surgical Procedure: Operation Date: 03/14/23 17:10 Proposed Procedure Side Surgeon p Debridement Foot/Leg Karen Mcdonnell MD Actual Procedure Side Surgeon p Irrigation + Debridement of Inner Thigh Abscess Right Karen Mcdonnell MD Pre-Op Diagnosis Post-Op Diagnosis RIGHT INNER THIGH ABSCESS RIGHT INNER THIGH ABSCESS Operation Date: 03/15/23 12:55 Proposed Procedure Side Surgeon p Inner Thigh Washout, VAC Application Right Issac Valdez MD Meds Allergies and Home Medications Allergies Allergy/AdvReac Type Severity Reaction Status Date / Time No Known Allergies Allergy Verified 08/21/22 09:58 Home Medication Medication Instructions Recorded Acetaminophen [Tylenol] 650 mg PO Q4H PRN PRN ##0 07/27/21 cyclobenzaprine 10 mg tablet 10 mg PO HS PRN muscle spasm #30 01/30/22 tabs buprenorphine 8 mg-naloxone 2 mg 2 film sublingual DAILY 05/10/22 sublingual film (Suboxone) ibuprofen 800 mg tablet 800 mg PO TID PRN PRN 05/10/22 amoxicillin 875 mg-potassium 1 tab PO Q12H 05/31/22 clavulanate 125 mg tablet betamethasone dipropionate 0.05 % 1 applic topical BID 05/31/22 topical ointment docusate sodium 100 mg capsule 100 mg PO BID 05/31/22 ferrous gluconate 324 mg (37.5 mg 324 mg PO BID 05/31/22 iron) tablet folic acid 1 mg tablet 1 mg PO DAILY 05/31/22 gabapentin 600 mg tablet 600 mg PO TID 05/31/22 melatonin 3 mg tablet 3 mg PO HS PRN 05/31/22 pantoprazole 40 mg tablet,delayed 40 mg PO DAILY 05/31/22 release polyethylene glycol 3350 17 gram 17 g PO DAILY 05/31/22 oral powder packet apixaban 5 mg tablet 5 mg PO BID 06/02/22 norethindrone (contraceptive) 0.35 0.35 mg PO DAILY #28 tabs 01/22/23 mg tablet Current Visit Medications: Current Medications Generic Name Dose Route Start Last Admin Trade Name Freq PRN Reason Stop Dose Admin Acetaminophen 1,000 mg 03/14/23 20:39 03/14/23 21:41 Acetaminophen 500 Mg Tab PO 1,000 mg Q6H PRN PRN Administration pain Al Hydrox/Mg Hydrox/Simethicone 30 ml 03/14/23 20:39 Mylanta Suspension 30 Ml Cup PO 04/13/23 19:03 Q4H PRN PRN Albuterol Sulfate 2.5 mg 03/14/23 20:39 Albuterol 2.5 Mg/3 Ml Inh Soln Vial UPD 04/13/23 19:03 Q4H PRN PRN Buprenorphine/Naloxone 2 each 03/15/23 08:30 03/15/23 07:53 Buprenorphine/Naloxone 8 Mg/2 Mg Film SL 04/14/23 08:29 2 each DAILY JOLEEN Administration Cyclobenzaprine HCl 10 mg 03/14/23 20:39 03/14/23 21:42 Cyclobenzaprine 10 Mg Tab PO 10 mg HS PRN PRN Administration muscle spasm Docusate Sodium 100 mg 03/14/23 20:39 03/15/23 07:54 Docusate Sodium 100 Mg Cap PO 04/13/23 19:59 100 mg BID JOLEEN Administration Enoxaparin Sodium 40 mg 03/15/23 20:00 Enoxaparin 40 Mg/0.4 Ml Syr SC 04/14/23 19:59 Q24H JOLEEN Ferrous Gluconate 324 mg 03/15/23 08:30 03/15/23 07:54 Ferrous Gluconate 324 Mg Tab PO 324 mg BID JOLEEN Administration Folic Acid 1 mg 03/15/23 08:30 03/15/23 07:54 Folic Acid 1 Mg Tab PO 04/14/23 08:29 1 mg DAILY JOLEEN Administration Gabapentin 600 mg 03/14/23 20:39 03/15/23 07:55 Gabapentin 600 Mg Tab PO 04/13/23 19:59 600 mg TID JOLEEN Administration Hydromorphone HCl 1 mg 03/14/23 20:39 Hydromorphone 2 Mg/Ml Syr IVP 04/13/23 19:08 Q3H PRN PRN Hydromorphone HCl 2 mg 03/14/23 20:39 Hydromorphone 2 Mg Tab PO 04/13/23 19:08 Q3H PRN PRN Ringer's Solution 1,000 mls @ 75 mls/hr 03/14/23 20:39 03/15/23 01:53 IV 04/13/23 19:14 75 mls/hr INFUSION JOLEEN Administration Vancomycin/PEG/NADA/Lysine/Water 1 gm in 200 mls @ 200 mls/hr 03/15/23 16:00 Vancocin Injection IV Q12H [facility] IV Miscellaneous Supplies 1 each 03/14/23 20:39 Iv Access IV 04/13/23 19:14 DIRECTED JOLEEN Ibuprofen 600 mg 03/14/23 20:39 03/14/23 21:42 Ibuprofen 600 Mg Tab PO 600 mg Q6H PRN PRN Administration pain Lorazepam 0.5 mg 03/14/23 20:39 Lorazepam 2 Mg/Ml Vial IVP 04/13/23 19:15 Q2H PRN PRN Magnesium Hydroxide 30 ml 03/14/23 20:39 Milk Of Magnesia 30 Ml Cup PO 04/13/23 19:03 DIRECTED PRN Melatonin 3 mg 03/14/23 20:39 03/14/23 21:41 Melatonin 3 Mg Tab PO 3 mg HS PRN PRN Administration Ondansetron HCl 4 mg 03/14/23 20:39 Ondansetron 4 Mg/2 Ml Vial IVP 04/13/23 19:03 Q4H PRN PRN Pantoprazole Sodium 40 mg 03/15/23 08:30 03/15/23 07:56 Pantoprazole 40 Mg Tabcr PO 04/14/23 08:29 Not Given DAILY [facility] Patient's Own 1 each 03/16/23 08:30 Medication ( PO Norethindrone 0.35 DAILY JOLEEN Mg Tab) Polyethylene Glycol 17 gm 03/15/23 08:30 03/15/23 10:44 Polyethylene Glycol 3350 17 Gm Packet PO 04/14/23 08:29 Not Given DAILY [facility] Simethicone 80 mg 03/14/23 20:39 Simethicone 80 Mg Chew PO 04/13/23 19:03 Q4H PRN PRN Sodium Chloride 0 ml 03/14/23 20:39 03/15/23 07:57 Normal Saline Flush 10 Ml Syr IVP 04/13/23 19:03 10 ml PRN PRN Administration PFSH Active Problems Active Problems: Problem Status Onset Code Abscess of right thigh L02.415 Leg wound, right S81.801A Anemia D64.9 Gangrene of left foot I96 Retained foreign body Z18.9 Vulvar cellulitis N76.2 History of herpes genitalis Z86.19 Vulvar pain R10.2 Open wound of finger of right hand S61.209A Cellulitis of toe of left foot L03.032 Abnormal finding on imaging R93.89 Abnormal MRI R93.89 Dysuria R30.0 Chronic ulcer of great toe of left foot with fat layer exposed L97.522 Cellulitis of toe of left foot L03.032 Z34.90 History of intravenous drug abuse F19.11 Cellulitis of left lower extremity L03.116 Poor intravenous access Z78.9 Chronic infection as complication of amputation T87.40 Heart murmur R01.1 Hypotension I95.9 Petechial rash R23.3 Acute on chronic anemia D64.9 Osteomyelitis of right lower extremity M86.9 DVT, lower extremity, distal, acute I82.4Z9 Abnormal uterine bleeding (AUB) N93.9 Normocytic hypochromic anemia D50.9 Medical History Medical History Cellulitis of finger of right hand Endometriosis Hx of hepatitis C AB +. No viral load. Hx of opioid abuse Currently in treatment at [facility]. Suboxone. Leg wound, right Raynaud disease Tenosynovitis of finger Surgical History Surgical History Complete below knee amputation of right lower extremity 2018. 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 [facility]. 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 H/O hand surgery contracted post-op History of transesophageal echocardiography (YG) negative Retained foreign body L groin, s/p unsuccessful exploratory surgery Tobacco Smoking/Tobacco Use Status: Never Alcohol Alcohol Intake: former Substance Use Substance use: Current Sobriety Substance use type: former substance user, crack/cocaine, heroin and methamphetamine Details: former cocaine (snorted, smoked, IV) and heroin use (IV), as well as crystal meth (IV). Patient is currently enrolled at [facility], on suboxone Vital Signs and Lab Results Vital Signs Most Recent Vital Signs in EMR: Most Recent Vital Signs Temp Pulse Resp BP Pulse Ox 36.6 C 62 17 121/67 98 03/15/23 08:11 03/15/23 08:11 03/15/23 08:11 03/15/23 08:11 03/15/23 08:11 Lab Results 03/15/23 07:50 03/15/23 07:50 Blood Type / Crossmatch: No Data to Display Complete Blood Count: White Blood Count 12.03 10^3/uL (4.4-10.8) H 03/15/23 07:50 Red Blood Count 3.83 10^6/uL (3.93-5.22) L 03/15/23 07:50 Hemoglobin 11.2 g/dL (11.2-15.7) 03/15/23 07:50 Hematocrit 35.1 % (36.0-46.0) L 03/15/23 07:50 Platelet Count 201 10^3/uL (130-400) 03/15/23 07:50 Venous Blood Lactate 2.4 mmol/L (0.6-1.4) H* 03/14/23 14:00 Complete Metabolic Panel: Sodium 138 mmol/L (136-145) 03/15/23 07:50 Potassium 4.0 mmol/L (3.5-5.1) 03/15/23 07:50 Chloride 104 mmol/L (98-107) 03/15/23 07:50 Carbon Dioxide 25.0 mmol/L (21.0-32.0) 03/15/23 07:50 BUN 10 mg/dL (7-18) 03/15/23 07:50 Creatinine 0.7 mg/dL (0.55-1.02) 03/15/23 07:50 Est GFR (CKD-EPI 2020) 112.05 (mL/min/1.73m2) 03/15/23 07:50 Magnesium 1.8 mg/dL (1.8-2.4) 03/14/23 14:00 Calcium 9.1 mg/dL (8.5-10.1) 03/15/23 07:50 Albumin 2.7 g/dL (3.4-5.0) L 03/14/23 14:00 Glucose 124 mg/dL (74-106) H 03/15/23 07:50 Liver Function Panel: Alanine Aminotransferase (ALT/SGPT) 47 U/L (14-59) 03/14/23 14:00 Aspartate Amino Transf (AST/SGOT) 38 U/L (15-37) H 03/14/23 14:00 Coagulation Panel: No Data to Display Cardiac Panel: No Data to Display Arterial Blood Gas: No Data to Display Venous Blood Gas: No Data to Display Pancreas Panel: No Data to Display Thyroid Panel: No Data to Display Infectious Disease: Coronavirus (COVID-19)(PCR) Negative (Negative) 03/14/23 14:00 Coronavirus 2019 Source Nasal/Nares 03/14/23 14:00 Blood Cultures: No Data to Display Toxicology Panel: No Data to Display Panel: Serum HCG, Qualitative Negative 03/15/23 07:50 Imaging and Studies Imaging and Studies Study information below may be from another EMR and interpreted by another provider. Please see original notes in EMR for more complete details. Echocardiogram Summary: 02/09/22: [facility] [place], YG, EF 65%, mild MR, ascending aorta is 3.9 cm. Possible mitral very small area of vegetation. 10/2018: *STUDY CONCLUSIONS* Impressions: There are no typical features of vegetative endocarditis. However, this diagnosis cannot be excluded on the basis of this transthoracic study. Consider transesophageal echocardiography, if clinically indicated, for superior assessment of valve anatomy. Summary: 1. Left ventricle: The cavity size was normal. Systolic function was normal. The estimated ejection fraction was 60-65%. Diastolic parameters were normal for age. There was no evidence of elevated ventricular filling pressure by Doppler parameters. 2. Mitral valve: There was mild regurgitation. 3. Right ventricle: The cavity size was normal. Wall thickness was normal. Systolic function was normal. 4. Atrial septum: No defect or patent foramen ovale was identified. 5. Pulmonary arteries: Pulmonary systolic pressure was in the range of 30mm Hg to 40mm Hg. 6. Inferior vena cava: The vessel was patent and normal in size. The respirophasic diameter changes were in the normal range (greater than or equal to 50%), consistent with normal central venous pressure. Anesthesia Assessment and Plan Anesthesia History Personal History: No History of Anesthesia Complications Family History: No Family History of Anesthesia Complications Exercise Tolerance Exercise Tolerance: Metabolic Equivalents>4 Pertinent Negatives Pertinent Negatives: No Symptoms of GERD and No Major Pulmonary Symptoms or Complaints Cardiac & Pulmonary Exam Cardiac Exam: Normal S1/S2 Heart Sounds Pulmonary Exam: Clear Bilateral Breath Sounds Implantable Cardiac Device Does patient have a Pacemaker or an ICD?: No Airway Exam Known Difficult Airway: No Mallampati Class: 2 Mouth Opening: Normal (> 3cm) Thyromental Distance: Greater than 3 cm Neck Range of Motion: Full ROM Neck Circumference: Normal Teeth Condition: Generalized Poor Dentition ASA Classification ASA Score: ASA 3 Emergency Case?: No NPO Status NPO Status: NPO Clears >2 hours, Solids >8 hours Status Status: Pt. refuses testing, she was counseled on anesthesia risks Anesthesia Plan Resuscitation Status: Full Code Anesthesia Technique: General Anesthesia Airway Planned: Natural Airway Monitors Used: Standard Monitors Preoperative Comments:: 42 yo female for change of packing on her Abscess incision and drainage from last night. Currently inpatient Sig PMHx: s/p BKA, previous IVDA, DVT, Hep c (treated), raynauds Previous Anes: no complications. [place] (03/14/2023): Igel LMA 4 easy placement. [facility]: airway note from [facility] unclear as to blade used states grade 1 with mac 3, but the note says glide, easy mask.
--- NOTE | 2023-03-15 13:35 | W.PM.PROGNOT ---
Date of Service Date of service: 03/15/23 Time of Service: 13:35 Assessment and Plan Assessment and plan (1) Abscess of right thigh: Status: Acute Assessment and plan: Tiffany seems to be doing pretty well after incision and drainage of her thigh abscess. Her white blood cell count is decreased a bit today, and so far the Gram stain shows only gram-positive cocci. We will go back to the operating room for a washout, and potential application of negative pressure dressing. Subjective Subjective Interval history since last seen: Tiffany did well through the night, and her pain was pretty well controlled. Hemodynamics are reassuring. Exam Skin Other: The right thigh is soft, and there is no significant lymphadenopathy in the groin. Surgical dressings are clean, without significant bleeding. Objective Last Vital Signs Temp 97.9 F 03/15/23 08:11 Pulse 62 03/15/23 08:11 Resp 17 03/15/23 08:11 BP 121/67 03/15/23 08:11 Pulse Ox 98 03/15/23 08:11 Laboratory Results - last 24 hr 03/14/23 03/15/23 14:00 07:50 WBC 14.31 H 12.03 H RBC 4.04 3.83 L Hgb 12.0 11.2 Hct 36.8 35.1 L MCV 91 92 MCH 29.7 29.2 MCHC 32.6 31.9 L RDW 12.1 12.2 Plt Count 261 201 MPV 10.1 9.7 Immature Gran % 0.5 0.5 Neutrophils % 86.3 89.6 Lymphocytes % 5.7 4.0 Monocytes % 6.5 5.5 Eosinophils % 0.7 0.2 Basophils % 0.3 0.2 Nucleated RBC % 0.0 0.0 Absolute Neutrophils 12.35 H 10.78 H Absolute Lymphocytes 0.82 L 0.48 L Absolute Monocytes 0.93 H 0.66 Absolute Eosinophils 0.10 0.02 Absolute Basophils 0.04 0.02 VBG Lactate 2.4 H* Sodium 137 138 Potassium 3.8 4.0 Chloride 99 104 Carbon Dioxide 27.2 25.0 Anion Gap 10.8 9.0 BUN 12 10 Creatinine 0.7 0.7 Est GFR (CKD-EPI 2020) 112.05 112.05 Glucose 124 H 124 H Calcium 9.5 9.1 Magnesium 1.8 Total Bilirubin 0.5 AST 38 H ALT 47 Alkaline Phosphatase 143 H Total Protein 8.8 H Albumin 2.7 L Serum HCG, Qual Negative COVID-19 Source Nasal/Nares SARS-CoV-2 (PCR) Negative Time Spent with Patient Time Spent with Patient: <25 minutes Time was spent: preparing to see the patient(eg.review tests), indepentently interpreting results and counseling the patient
--- NOTE | 2023-03-15 14:28 | ROE_ITS ---
Date of service: 03/15/23 Time of Service: 14:28 Operative Note Operative Note DATE OF PROCEDURE: 03/14/23 PRE-OP DIAGNOSIS: Right thigh abscess POST-OP DIAGNOSIS: same PROCEDURE: Removal of wound packing, washout of wound, application of negative pressure wound therapy SURGEON: Issac Valdez ANESTHESIA TYPE: General:No Airway Refer to Anesthesia Record ESTIMATED BLOOD LOSS: 25 PATHOLOGY: other (cultures for aerobic and anaerobic) COMPLICATIONS: None Patient was transported to: PACU Patient's condition: stable Implants: [employer] negative pressure wound dressing Indications: Tiffany is a 42-year-old woman who underwent incision and drainage of a large right thigh abscess yesterday. She was treated with broad-spectrum antibiotics, and so far Gram stain is gram-positive cocci. White blood cell count is improved. She is back to the operating room today for washout, and potential ap plication of negative pressure wound dressing Findings: Right thigh abscess cavity measuring approximately 9 cm long by 5 cm wide by 4 cm deep Procedure Description: If the induction of anesthesia, I prepped and draped the right thigh in the usual fashion. I began by removing all the previously placed wound packing. The wound bed was carefully examined. There is no evidence of any retained purulence. The underlying muscle was healthy appearing and seems well perfused. Surrounding fat skin also looked well perfused and healthy. I saw no surrounding erythema. The wound bed was carefully examined, it tracks a little bit along the underside and posterior of the sartorius muscle. It also tracked slightly anterior towards the femoral triangle. I did not see any signs of her previously placed femoral bypass, although it seems like it should be in relative proximity to the wound. I did not appreciate any other undrained collections. I irrigated the wound with 3 L of warm saline solution. Next, I cut a negative pressure sponge to fit the cavity. The wound measures approximately 9 cm long by approximately 5 cm at its widest by 4 cm deep. The rest of the dressing was applied according to the assistant center director's instructions, etc. -120 mmHg with continuous output. She was then allowed awaken from anesthesia and transferred back to her bed before moving over to the recovery unit.
[2023-03-15] MEDS: fentaNYL 100 MCG/2 ML VIAL IVP (14:59)
[2023-03-15] MEDS: LORazepam 2 MG/ML VIAL 0.5 MG IVP (15:09)
--- NOTE | 2023-03-15 15:46 | W.ANESPOSTOP ---
Postoperative Evaluation Date, Time and Location Date Performed: 03/15/23 Time Performed: 15:46 Patient Location: PACU Vital Signs Most Recent Imported Vital Signs: Most Recent Vital Signs Temp Pulse Resp BP Pulse Ox 37.1 C 79 14 116/87 96 03/15/23 15:42 03/15/23 15:42 03/15/23 15:42 03/15/23 15:42 03/15/23 15:42 Most Recent Vital Signs Temp Pulse Resp BP Pulse Ox 37.6 C H 82 14 137/94 H 98 03/14/23 20:10 03/14/23 20:10 03/14/23 20:10 03/14/23 20:10 03/14/23 20:10 Pain Score Most Recent Pain Score: Most Recent Pain Score Pain Level 5 03/15/23 15:42 Assessment Mental Status: Awake (Alert & Oriented to Patient Baseline) Airway and Respiratory Function: Patent airway with normal (patient baseline) respiratory exam Cardiovascular Function: Hemodynamically Stable Hydration Status: Adequately Hydrated Nausea & Vomiting: No Nausea or Vomiting Pain: Pain is tolerable per patient Peripheral Nerve Block: Patient did not receive a nerve block
--- NOTE | 2023-03-15 16:43 | INITIAL_ITS ---
Date of service: 03/15/23 Time of Service: 17:02 Care Management Initial Assmt Initial Assessment REASON FOR HOSPITALIZATION:: Thigh abscess PREVIOUS FUNCTIONAL STATUS/SOCIAL/FAMILY SUPPORTS:: Chronically unwell, complex medical history including EMERY, and amputations. CURRENT FUNCTIONAL STATUS:: Lying in bed, pleasant in interaction. Has patient been provided with info about the portal/API?: Yes CODE STATUS:: Full Code INSURANCE COVERAGE / FINANCIAL ISSUES:: Medicare PRIMARY CARE PHYSICIAN:: Georgette Reza POTENTIAL DISCHARGE NEEDS:: Follow up appointments PATIENT/FAMILY EDUCATION NEEDS:: Review discharge instructions, discuss Ask Me Three. ANTICIPATED BARRIERS TO DISCHARGE:: None identified. TRANSPORTATION:: Via private vehicle with family. PLAN:: Lindsay will return home when ready per MD, she will follow up with her PCP and plan of care as prescribed. Per MD, anticipate possible wound vac and VNA services; food insecurity; CM faxed referral to [facility] for follow up and continues to follow. PFSH All Active Problems (Updated 03/14/23 @ 16:16 by AUBREE Cat) Abscess of right thigh (Acute) Leg wound, right (Acute) Anemia (Chronic) Gangrene of left foot (Acute) Retained foreign body (Acute) Vulvar cellulitis (Acute) History of herpes genitalis (Acute) Vulvar pain (Acute) Open wound of finger of right hand (Acute) Cellulitis of toe of left foot (Acute) Abnormal finding on imaging (Acute) Abnormal MRI (Acute) Dysuria (Acute) 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 Patient has appointment at [facility] in [place] for consideration of termination History of intravenous drug abuse (Acute) Cellulitis of left lower extremity (Acute) Poor intravenous access (Acute) Chronic infection as complication of amputation (Acute) Heart murmur (Acute) Hypotension (Chronic) Petechial rash (Acute) Acute on chronic anemia (Acute) Osteomyelitis of right lower extremity (Chronic) DVT, lower extremity, distal, acute (Acute) 10/24 2018 left lower extremity. Rx with Eliquis. Abnormal uterine bleeding (AUB) (Acute) On. Set 10/24/2018 heavy flow coinciding with initiation of Eliquis Normocytic hypochromic anemia (Acute) 10/26/2018 hemoglobin 8.2 MCV 83 Medical History Cellulitis of finger of right hand Endometriosis Hx of hepatitis C AB +. No viral load. Hx of opioid abuse Currently in treatment at [facility]. Suboxone. Leg wound, right Raynaud disease Tenosynovitis of finger Surgical History Complete below knee amputation of right lower extremity 2018. 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 [facility]. 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 H/O hand surgery contracted post-op History of transesophageal echocardiography (YG) negative Retained foreign body L groin, s/p unsuccessful exploratory surgery Family History Father Diabetes Paternal Grandfather Diabetes Paternal Aunt Diabetes Maternal Grandmother Breast cancer Maternal Aunt Multiple sclerosis Social History Smoking/Tobacco Use Status: Never Smoking risk assessment performed?: Yes Alcohol Intake: former Drug use: Current Sobriety Substance use type: former substance user, crack/cocaine, heroin and methamphetamine Details: former cocaine (snorted, smoked, IV) and heroin use (IV), as well as crystal meth (IV). Patient is currently enrolled at [facility], on suboxone Household members: children and other Details: Patient resides at her sister's house with her daughter Housing: apartment Number of Children: 1 current occupation: Unemployed Sexually active: Yes Do you think of yourself as: straight/heterosexual Current gender identity: female Seatbelt use: always Do you feel safe at home: Yes Do you feel safe in your relationship?: Yes Additional Social history: Ambulates with crutches - 2 falls recently
--- NOTE | 2023-03-15 17:52 | CHAPLAIN ---
Lindsay was getting washed up when I visited. She had an abscess on her right thigh drained today. I explained my role and offered support.
[2023-03-15] MEDS: VANCOMYCIN/WATER (PEG) 1 GM/200 ML BAG IV (18:18)
[2023-03-15] MEDS: Acetaminophen 500 MG TAB 1000 MG PO (18:37)
[2023-03-15] MEDS: Enoxaparin 40 MG/0.4 ML SYR SC (19:32)
[2023-03-15] MEDS: Omnipaque 350 MG/ML 100 ML BTL IJ (22:45)
[2023-03-15] MEDS: Normal Saline - Diluent 50 ML VIAL IV (22:46)
[2023-03-16 00:07] VITALS: BP 100/63; PULSE 78; RESP 16; TEMP 35.5; O2SAT 98
--- NOTE | 2023-03-16 00:20 | DI.VRAD_ITS ---
PROCEDURE INFORMATION: Exam: CTA Abdomen and Pelvis With Contrast Exam date and time: 03/15/2023 10:36 PM Age: 42 years old Clinical indication: Other: Wound infection near femoral bypass TECHNIQUE: Imaging protocol: Computed tomographic angiography of the abdomen and pelvis with contrast. Exam focused on the arteries. COMPARISON: CT ABDOMEN PELVIS WO 02/03/2022 6:40 PM FINDINGS: Lungs: Posterior lung bases with linear opacifications consistent with scarring or atelectasis. Pleural spaces: No pleural effusion. Heart: Limited view of the base of the heart. Heart appears normal in size. No pericardial effusion. No visible coronary artery atherosclerotic calcium. Aorta: Abdominal aorta is unremarkable. No aneurysm. No stenosis. Celiac trunk and mesenteric arteries: Celiac artery is widely patent. Superior mesenteric artery is widely patent. Renal arteries: Right renal artery is widely patent. Left renal artery is widely patent. Right iliac arteries: Right common iliac artery is patent. Right external iliac artery is occluded. Right internal iliac artery is patent and collateralizes to the right thigh Left iliac arteries: Left common iliac artery is patent. Left external iliac artery is occluded. Left internal iliac artery is patent and collateralizes to the left thigh and proximal left superficial femoral artery. Liver: Liver is unremarkable as visualized. The most upper portion of the hepatic dome is excluded. Gallbladder and bile ducts: Contracted gallbladder. No acute biliary tract findings. Pancreas: The pancreas is normal in contour and attenuation. Spleen: The spleen is normal in size, contour and attenuation. Adrenal glands: The adrenal glands are normal in size and contour bilaterally. Kidneys and ureters: The kidneys bilaterally are unremarkable. Normal attenutation. No hydronephrosis. No calculi. Stomach and bowel: Gastric morphology is unremarkable. No edema. No gastric outlet obstruction. Small bowel loops are normal in course and caliber. There is no mucosal edema or bowel wall thickening. No obstructive features. The colon contains formed fecal material. There is no bowel wall thickening. No inflammatory features. No obstruction. Appendix: No evidence of appendicitis. Intraperitoneal space: Unremarkable. No free air. No significant fluid collection. Lymph nodes: Unremarkable. No enlarged lymph nodes. Urinary bladder: Urinary bladder is unremarkable in appearance. No wall thickening. No intravesicular calculi. No intravesicular gas. Reproductive: The uterus and adnexa are unremarkable in appearance. There are no dominant adnexal cysts or masslike features. There are no inflammatory features. No uterine mass evident. Bones/joints: No acute fracture. Degenerative lumbar spine. Severe degenerative disc disease at L4-L5. Ankylosis at L2-L3 disc space. Soft tissues: Unremarkable. IMPRESSION: 1. Abdominal aorta and mesenteric vessels are patent. 2. Bilateral chronic external iliac artery occlusive changes. 3. A right-sided bypass graft from the common iliac artery, through the obturator foramen, and to the proximal right thigh vasculature is occluded. Graft has several areas where it appears to be kinked. A 2nd right pelvic adjacent graft also appears occluded and has an unusual course 4. Bilateral lung base linear opacifications suggesting scarring or atelectasis. PROCEDURE INFORMATION: Exam: CTA Right Lower Extremity With Contrast Exam date and time: 03/15/2023 10:36 PM Age: 42 years old Clinical indication: Other: Wound infection near femoral bypass TECHNIQUE: Imaging protocol: Computed tomographic angiography of the right lower extremity with contrast. 3D rendering (Not supervised by radiologist): MIP and/or 3D reconstructed images were created by the technologist. Contrast material: OMNIPAQUE 350; Contrast volume: 100 ml; Contrast route: INTRAVENOUS (IV); COMPARISON: CT LOWER EXTREMITY LT CTA 05/09/2022 7:45 PM FINDINGS: Right iliac arteries: Right common iliac artery is patent. Right external iliac artery is diffusely occluded. Right internal iliac artery is patent. A right sided bypass graft from the common iliac artery through the adductor foramen to the distal aspect of the femoral artery is occluded. Right internal iliac artery branches collateralized to the right thigh. There is a weakly reconstituted distal femoral artery at the distal adductor canal. A 2nd graft is seen in the posteromedial right pelvis extending into the posterior right thigh. This also is occluded and is of uncertain course and anastomosis. Right femoral/popliteal arteries: Right popliteal artery is diminutive in size with contrast opacification consistent with patency. Right infrapopliteal arteries: No occlusion or significant stenosis. Bones/joints: Right below-knee amputation. Lymph nodes: Mildly enlarged right inguinal region lymph nodes. Largest measuring 1.9 x 1.4 cm. Soft tissues: Soft tissues of the anterior upper right thigh with subcutaneous fatty stranding, a skin ulceration, and soft tissue emphysema consistent with infection. This is predominantly superficial to the muscular compartment. There is some minor anterior intramuscular fluid. Some minor air is seen along the anterior deep muscular compartment. IMPRESSION: 1. Right external iliac artery chronic occlusion. 2. Right common iliac artery to right proximal thigh arterial graft is occluded. 3. Right internal iliac artery is patent and collateralizes to the distal thigh with weak reconstitution of the distal superficial femoral artery at the distal adductor canal. Popliteal artery with weak opacification. 4. Below-knee amputation stump without soft tissue gas. 5. Proximal anteromedial right thigh with skin breakdown, subcutaneous fatty stranding, soft tissue emphysema, and some fluid accumulation consistent with infection. There is minor involvement of the anterior aspect of the deep muscle compartment. No discrete abscess collection. Dictated and Authenticated by: Romero Martinez MD. Ordering:ALEENA Davenport MD
[2023-03-16] MEDS: Lactated Ringers 1,000 ML 75 ML IV (05:19)
[2023-03-16] MEDS: VANCOMYCIN/WATER (PEG) 1 GM/200 ML BAG IV (05:55)
[2023-03-16 06:49] LABS: Abs Immature Grans 0.12 10^3/uL (0.0-0.06); Absolute Basophil Count 0.04 10^3/uL (0.0-0.2); Absolute Eosinophil Count 0.11 10^3/uL (0.0-0.7); Absolute Lymphocyte Count 1.68 10^3/uL (1.2-3.4); Absolute Monocyte Count 0.53 10^3/uL (0.1-0.8); Absolute Neutrophil Count 4.21 10^3/uL (1.2-6.7); Basophils % 0.6; Eosinophils % 1.6; HCT 36.9 % (36.0-46.0); HGB 11.7 g/dL (11.2-15.7); Immature Grans % 1.8; Lymphocytes % 25.1; MCH 29.3 pg (27.0-33.0); MCHC 31.7 % (32.0-36.0); MCV 93 fL (80-95); Monocytes % 7.9; RBC 3.99 10^6/uL (3.93-5.22); RDW 12.4 % (11.7-14.6); RDW-SD 42.2 fL; WBC 6.69 10^3/uL (4.4-10.8)
[2023-03-16 07:08] LABS: Vancomycin, Trough 27.6 ug/mL (10.0-20.0)
[2023-03-16 07:10] LABS: Diff Comment Diff Reviewed; RBC Morphology Normal
[2023-03-16 07:16] LABS: Anion Gap 8.8 mmol/L (3-11); BUN 7 mg/dL (7-18); CO2 27.2 mmol/L (21.0-32.0); CREATININE 0.7 mg/dL (0.55-1.02); Calcium 8.7 mg/dL (8.5-10.1); Chloride 105 mmol/L (98-107); Estimated GFR 112.05 (mL/min/1.73m2); Glucose 88 mg/dL (74-106); Potassium 3.8 mmol/L (3.5-5.1); Sodium 141 mmol/L (136-145)
[2023-03-16 08:37] VITALS: BP 103/68; PULSE 84; RESP 20; TEMP 36.4; O2SAT 98
[2023-03-16] MEDS: Polyethylene Glycol 3350 17 GM PACKET PO (08:57)
[2023-03-16] MEDS: Ferrous Gluconate 324 MG TAB PO ×2 (08:58→20:22)
[2023-03-16] MEDS: Gabapentin 600 MG TAB PO ×3 (08:58→20:23)
[2023-03-16] MEDS: Pantoprazole 40 MG TABCR PO (08:58)
[2023-03-16] MEDS: Docusate Sodium 100 MG CAP PO ×2 (08:58→20:23)
[2023-03-16] MEDS: Folic Acid 1 MG TAB PO (08:58)
[2023-03-16] MEDS: Buprenorphine/Naloxone 8 mg/2 mg FILM 2 EACH SL (08:58)
[2023-03-16] MEDS: ACETAMINOPHEN 1,000 MG/100 ML BTL 400 MG IVPB (09:20)
[2023-03-16] MEDS: Amoxicillin 875/Clav. 125 TAB PO ×2 (09:21→20:22)
[2023-03-16] MEDS: metroNIDAZOLE 500 MG TAB PO ×2 (09:21→15:10)
--- NOTE | 2023-03-16 09:39 | W.PM.PROGNOT ---
Date of Service Date of service: 03/16/23 Time of Service: 09:40 Assessment and Plan Assessment and plan (1) Abscess of right thigh: Status: Acute Assessment and plan: POD #2 s/p I&D of right thigh abscess and POD #1 s/p wash out and wound vac placement. Pain is currently well controlled. Continue IV antibiotics; WBC normalized. Regular diet Wound vac in place, this will need to be changed 3x/wk. Will begin ordering home wound vac. Encouraged activity as tolerated. Patient seen and examined at 13:30 She is in bed watching a movie with her Wound vac in place. Minimal pain Waiting on the consignment Vac for the patient. Will set up [facility] as well for wound vac changes. Subjective Subjective Interval history since last seen: Arrive with Lindsay sitting in bed. She reports that she is feeling well today and that her pain is well controlled. She expresses that she is hungry. Exam Const General: cooperative, healthy appearing and comfortable Orientation: alert and oriented x3 Resp Effort & Inspection: normal respiratory effort, no audible wheezes and no cough Skin Other: Right inner thigh- Wound vac in place. No erythema, swelling or induration around the wound vac dressing. Objective Last Vital Signs Temp 36.4 C L 03/16/23 08:37 Pulse 84 03/16/23 08:37 Resp 20 03/16/23 08:37 BP 103/68 03/16/23 08:37 Pulse Ox 98 03/16/23 08:37 Laboratory Results - last 24 hr 03/15/23 03/16/23 03/16/23 07:50 06:25 06:33 WBC 6.69 RBC 3.99 Hgb 11.7 Hct 36.9 MCV 93 MCH 29.3 MCHC 31.7 L RDW 12.4 Plt Count MPV Immature Gran % 1.8 Neutrophils % 63.0 Lymphocytes % 25.1 Monocytes % 7.9 Eosinophils % 1.6 Basophils % 0.6 Nucleated RBC % 0.0 Absolute Neutrophils 4.21 Absolute Lymphocytes 1.68 Absolute Monocytes 0.53 Absolute Eosinophils 0.11 Absolute Basophils 0.04 RBC Morphology Normal Sodium 141 Potassium 3.8 Chloride 105 Carbon Dioxide 27.2 Anion Gap 8.8 BUN 7 Creatinine 0.7 Est GFR (CKD-EPI 2020) 112.05 Glucose 88 Calcium 8.7 Serum HCG, Qual Negative Vancomycin Trough 27.6 H* Time Spent with Patient Time Spent with Patient: 25-34 minutes Time was spent: indepentently interpreting results, counseling the patient and care coordination
--- NOTE | 2023-03-16 14:05 | PDOC.HHF2F ---
Home Health Referral Home Health Orders Clinical synopsis of why skilled professionals are needed: Large wound on Right Upper Inner thigh S?P Incision and drainage of abscess HAs wound vac Medical diagnosis necessitation home health referral: Wound vac Patient is a double amputee Registered Nurse: Check all that apply Assess wound for signs and symptoms of infection, instruct on wound care and/or provide skilled wound care consisting of: Wound vac changes MWF Home Bound Status Use of Special Transportation (Describe transportation and medical necessity): Patient is in a wheelchair Encounter Date and Reason: I certify that a FTF encounter for this patient was performed on March 16, 2023 and that such encounter was related to the primary reason the patient requires home health services. The encounter was conducted in the following manner: By me as the certifying physician, OUTREACH ANALYST, PA or By an inpatient physician, OUTREACH ANALYST or PA during an inpatient stay who communicated findings to me, Certification And Authentication I certify that I composed the above information based on my clinical judgment relating to this patient's medical condition and, if applicable, clinical findings communicated to me by the NPP or inpatient physician who performed the FTF encounter. Name of Provider that will be monitoring home health services: Karen Mcdonnell
[2023-03-16 20:21] VITALS: BP 98/68; PULSE 69; RESP 18; TEMP 36.6; O2SAT 93
[2023-03-16] MEDS: Melatonin 3 MG TAB PO (20:22)
[2023-03-16] MEDS: Cyclobenzaprine 10 MG TAB PO (20:22)
[2023-03-16] MEDS: Enoxaparin 40 MG/0.4 ML SYR SC (20:22)
[2023-03-16] MEDS: Acetaminophen 500 MG TAB 1000 MG PO (20:23)
[2023-03-17] MEDS: metroNIDAZOLE 500 MG TAB PO ×2 (00:50→08:32)
[2023-03-17 06:44] LABS: Abs Immature Grans 0.12 10^3/uL (0.0-0.06); Absolute Basophil Count 0.05 10^3/uL (0.0-0.2); Absolute Eosinophil Count 0.12 10^3/uL (0.0-0.7); Absolute Lymphocyte Count 1.22 10^3/uL (1.2-3.4); Absolute Monocyte Count 0.49 10^3/uL (0.1-0.8); Absolute Neutrophil Count 2.38 10^3/uL (1.2-6.7); Basophils % 1.1; Eosinophils % 2.7; HCT 35.7 % (36.0-46.0); HGB 11.1 g/dL (11.2-15.7); Immature Grans % 2.7; Lymphocytes % 27.9; MCH 29.4 pg (27.0-33.0); MCHC 31.1 % (32.0-36.0); MCV 95 fL (80-95); MPV 10.2 fL (8.0-11.0); Monocytes % 11.2; Neutrophils % 54.4; Platelet Count 234 10^3/uL (130-400); RBC 3.77 10^6/uL (3.93-5.22); RDW 12.3 % (11.7-14.6); RDW-SD 43.1 fL; WBC 4.38 10^3/uL (4.4-10.8)
[2023-03-17 07:14] LABS: Anion Gap 6.8 mmol/L (3-11); BUN 22 mg/dL (7-18); CO2 27.2 mmol/L (21.0-32.0); CREATININE 0.8 mg/dL (0.55-1.02); Chloride 103 mmol/L (98-107); Estimated GFR 95.46 (mL/min/1.73m2); Glucose 90 mg/dL (74-106); Potassium 4.2 mmol/L (3.5-5.1); Sodium 137 mmol/L (136-145)
[2023-03-17 07:15] VITALS: BP 102/66; PULSE 70; RESP 17; TEMP 36.3; O2SAT 96
[2023-03-17] MEDS: Buprenorphine/Naloxone 8 mg/2 mg FILM 2 EACH SL (08:31)
[2023-03-17] MEDS: Pantoprazole 40 MG TABCR PO (08:31)
[2023-03-17] MEDS: Gabapentin 600 MG TAB PO ×2 (08:31→14:51)
[2023-03-17] MEDS: Polyethylene Glycol 3350 17 GM PACKET PO (08:31)
[2023-03-17] MEDS: Amoxicillin 875/Clav. 125 TAB PO (08:32)
[2023-03-17] MEDS: Docusate Sodium 100 MG CAP PO (08:32)
[2023-03-17] MEDS: Ferrous Gluconate 324 MG TAB PO (08:32)
[2023-03-17] MEDS: Folic Acid 1 MG TAB PO (08:32)
[2023-03-17] MEDS: Ibuprofen 600 MG TAB PO (08:35)
--- NOTE | 2023-03-17 12:55 | W.PM.PROGNOT ---
Date of Service Date of service: 03/17/23 Time of Service: 12:55 Assessment and Plan Assessment and plan (1) Abscess of right thigh: Status: Acute Assessment and plan: POD #3 s/p I&D of right thigh abscess and POD #1 s/p wash out and wound vac placement. Pain is currently well controlled. Continue po antibiotics Regular diet Wound vac in place, this will need to be changed 3x/wk. awaiting Medicare approval of wound vac Encouraged activity as tolerated. Patient seen and examined at 13:30 Subjective Subjective Interval history since last seen: Lindsay is doing well. She is eating a regular diet, having BM's and her pain is controlled. Exam Const General: cooperative, comfortable and no acute distress Nutritional Appearance: average body habitus Orientation: alert and oriented x3 HENMT Head: normocephalic and atraumatic Resp Effort & Inspection: normal respiratory effort Auscultation: clear to auscultation bilaterally Cardio Rate: regular rate Rhythm: regular rhythm Skin Other: wound vac in place. NO erythema or induration of skin surrounding the wound vac Objective Last Vital Signs Temp 97.3 F L 03/17/23 07:15 Pulse 70 03/17/23 07:15 Resp 17 03/17/23 07:15 BP 102/66 03/17/23 07:15 Pulse Ox 96 03/17/23 07:15 Laboratory Results - last 24 hr 03/16/23 03/17/23 17:00 06:13 WBC 4.38 L RBC 3.77 L Hgb 11.1 L Hct 35.7 L MCV 95 MCH 29.4 MCHC 31.1 L RDW 12.3 Plt Count 234 MPV 10.2 Immature Gran % 2.7 Neutrophils % 54.4 Lymphocytes % 27.9 Monocytes % 11.2 Eosinophils % 2.7 Basophils % 1.1 Nucleated RBC % 0.0 Absolute Neutrophils 2.38 Absolute Lymphocytes 1.22 Absolute Monocytes 0.49 Absolute Eosinophils 0.12 Absolute Basophils 0.05 Sodium 137 Potassium 4.2 Chloride 103 Carbon Dioxide 27.2 Anion Gap 6.8 BUN 22 H Creatinine 0.8 Est GFR (CKD-EPI 2020) 95.46 Glucose 90 Calcium 9.0 Vancomycin Trough Cancelled Time Spent with Patient Time Spent with Patient: <25 minutes Time was spent: indepentently interpreting results, counseling the patient and care coordination
--- NOTE | 2023-03-17 13:40 | DSE_ITS ---
Date of service: 03/17/23 Time of Service: 13:40 DS: Diagnosis Discharge Diagnosis (1) Abscess of right thigh: Status: Acute Discharge Plan Disposition Patient Disposition: Home W/Home Health Services Condition: Stable Discharge Details Reason For Visit: Right Inner Upper Thigh Abscess Admit Date/Time: 03/14/23 19:12 Admit Provider: Karen Mcdonnell Attending Provider: Karen Mcdonnell Primary Care Provider: Georgette Reza Hospital Course Hospital Course: Lindsay was admitted on 03/14 after incision and drainage of a large abscess on her right upper inner thigh. She was brought back to the OR on 03/15 for washout and wound vac placement. She was on IV antibiotics for 48 hours and then switched to po. Her WBC count normalized. She was tolerating a diet and we were able to get her HOme wound vac. Patient was discharged on 03/17 with a HOme wound vac. Pain was controlled with Ibuporofen 800 mg q8 hours prn. Patient will be discharged with a Rx for augmentin for 2 weeks and Ibuprofen 800 mg. Home Health has been set up to change the wound vac MWF. Home Meds and New Rx's Prescriptions: New amoxicillin-pot clavulanate 875-125 mg Tablet 1 tab PO BID 28 Days Qty: 56 0RF metronidazole 500 mg Tablet 500 mg PO Q8H 28 Days Qty: 84 0RF Continued cyclobenzaprine 10 mg tablet 10 mg PO HS PRN (Reason: muscle spasm) Qty: 30 1RF gabapentin 600 mg tablet 600 mg PO TID docusate sodium 100 mg capsule 100 mg PO BID folic acid 1 mg tablet 1 mg PO DAILY melatonin 3 mg tablet 3 mg PO HS PRN pantoprazole 40 mg tablet,delayed release (DR/EC) 40 mg PO DAILY polyethylene glycol 3350 17 gram powder in packet 17 g PO DAILY ferrous gluconate 324 mg (37.5 mg iron) tablet 324 mg PO BID betamethasone dipropionate 0.05 % ointment 1 applic topical BID norethindrone (contraceptive) 0.35 mg tablet 0.35 mg PO DAILY Qty: 28 0RF Acetaminophen [Tylenol] 650 mg PO Q4H PRN PRNQty: 0 0RF buprenorphine-naloxone [Suboxone] 8-2 mg film 2 film sublingual DAILY Patient Comments: PLACE TWO FILMS UNDER THE TONGUE EVERY DAY FOR 7 DAYS Discontinued apixaban 5 mg tablet 5 mg PO BID Patient Comments: Pt stopped taking this 08/21/22 CT amoxicillin-pot clavulanate 875-125 mg tablet 1 tab PO Q12H Patient Comments: Pt stopped taking 08/21/22 CT ibuprofen 800 mg tablet 800 mg PO TID PRN PRN Rx Instructions: TAKE ONE TABLET BY MOUTH THREE TIMES A DAY NEEDED FOR PAIN Discharge Instructions Instructions: Negative Pressure Wound Therapy (DC) Care Plan Goals: Activity at Home after surgery: 1. As toilerated Diet, Nutrition, & wound healin. Avoid alcohol until after you are recovered from your surgery 2. Make sure to eat plenty of lean protein (meat, fish, eggs, cottage cheese, beans) 3. Eat a variety of fruits and vegetables. Eat plenty of high fiber foods to avoid constipation. 4. Drink plenty of liquids to stay hydrated and avoid constipation Pain Medications: 1. Tylenol 650mg every 6 hours as needed and Ibuprofen 800 mg every 8 hours as needed. You may alternate between the 2 medications every 3 hours For Constipation: 1. Take Milk of Magnesia or MiraLax as needed for constipation Other: 1. You may shower daily. Do not scrub the incisions 2. Do not soak the incisions for 1 week 3. You may alternate ice and heat as needed for pain and swelling Wound Care: 1. Keep the incisions clean and dry Other Services that may have been ordered: X Home Health- to help with dressing changes Please call our office if you develop: 1. Fevers >101.5 2. Nausea or Vomiting 3. Worsening pain 4. Redness and thick discharge from the wounds If after hours please call the Hospital at and ask to speak to the on-call surgeon Referrals: Karen Mcdonnell MD [ [facility]FF [facility]YSICIAN] - 04/02/23 11:30 am Activity:: Activity as Tolerated Equipment/Supplies:: No Equipment Needed Diet:: As Tolerated Discharge Orders Discharge Orders: Discharge Order (Routine); Ordered 03/17/23 Ordered By: Karen Mcdonnell DS: Summary Time Spent with Patient providing and/or coordinating discharge services: Greater than 30 minutes Specific discharge activities: papewrwork regarding HOme Health and wound vac, seeing patient, notes Status at Discharge Functional status at discharge: independent ambulation Overall status at discharge: patient is back to baseline Mental Status: mental status grossly normal Speech and Movement: speech and movement normal Mood: congruent mood Affect: normal affect Exam Psych Mental Status: mental status grossly normal Speech and Movement: speech and movement normal Mood: congruent mood Affect: normal affect DS: Data Vitals/I&O Vitals and I&O: Vital Signs Temperature 97.3 F L 03/17/23 07:15 Temperature Source Tympanic 03/17/23 07:15 Pulse 70 03/17/23 07:15 Pulse Rhythm Regular 03/17/23 08:36 Respiratory Rate 17 03/17/23 07:15 Respiratory Effort Normal, Non-Labored 03/17/23 08:36 Respiratory Depth Normal 03/17/23 08:36 Respiratory Pattern Normal 03/17/23 08:36 Blood Pressure 102/66 03/17/23 07:15 Blood Pressure Position Sitting 03/14/23 12:51 Pulse Oximetry 96 03/17/23 07:15 Respiratory End-tidal CO2 41 03/15/23 15:42 Oxygen Delivery Method Room Air 03/17/23 07:15 Oxygen Flow Rate 0 03/17/23 07:15 Pain Level 5 03/17/23 08:35 Intake & Output 03/16/23 03/17/23 03/17/23 23:59 11:59 23:59 Intake Total 1010 / 2310 Balance 1010 / 410 Intake: IV 1010 / 2310 Other: Urine Color Yellow Urine Appearance Clear Clear Stool Size Moderate Stool Characteristics Formed Brown Voiding Methods Bedside Commode Data Completed and Pending Labs on day of discharge: Labs from last 24 hours 03/17/23 06:13 WBC 4.38 L RBC 3.77 L Hgb 11.1 L Hct 35.7 L MCV 95 MCH 29.4 MCHC 31.1 L RDW 12.3 Plt Count 234 MPV 10.2 Immature Gran % 2.7 Neutrophils % 54.4 Lymphocytes % 27.9 Monocytes % 11.2 Eosinophils % 2.7 Basophils % 1.1 Nucleated RBC % 0.0 Absolute Neutrophils 2.38 Absolute Lymphocytes 1.22 Absolute Monocytes 0.49 Absolute Eosinophils 0.12 Absolute Basophils 0.05 Sodium 137 Potassium 4.2 Chloride 103 Carbon Dioxide 27.2 Anion Gap 6.8 BUN 22 H Creatinine 0.8 Est GFR (CKD-EPI 2020) 95.46 Glucose 90 Calcium 9.0 03/14/23 17:59 Leg - Right Anaerobic Culture - Pending Preliminary micro results at discharge 03/14/23 17:59 Surgical Culture - Preliminary Leg - Right Gram Positive Promise 03/14/23 15:07 Blood Culture - Preliminary Blood NO GROWTH 48 HOURS 03/14/23 14:00 Blood Culture - Preliminary Blood NO GROWTH 48 HOURS 03/14/23 17:59 Anaerobic Culture - Pending Leg - Right PFSH All Active Problems Abscess of right thigh (Acute) Leg wound, right (Acute) Anemia (Chronic) Gangrene of left foot (Acute) Retained foreign body (Acute) Vulvar cellulitis (Acute) History of herpes genitalis (Acute) Vulvar pain (Acute) Open wound of finger of right hand (Acute) Cellulitis of toe of left foot (Acute) Abnormal finding on imaging (Acute) Abnormal MRI (Acute) Dysuria (Acute) 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 Patient has appointment at [facility] in [place] for consideration of termination History of intravenous drug abuse (Acute) Cellulitis of left lower extremity (Acute) Poor intravenous access (Acute) Chronic infection as complication of amputation (Acute) Heart murmur (Acute) Hypotension (Chronic) Petechial rash (Acute) Acute on chronic anemia (Acute) Osteomyelitis of right lower extremity (Chronic) DVT, lower extremity, distal, acute (Acute) 10/24 2018 left lower extremity. Rx with Eliquis. Abnormal uterine bleeding (AUB) (Acute) On. Set 10/24/2018 heavy flow coinciding with initiation of Eliquis Normocytic hypochromic anemia (Acute) 10/26/2018 hemoglobin 8.2 MCV 83 Medical History Tenosynovitis of finger Leg wound, right Cellulitis of finger of right hand Endometriosis Raynaud disease Hx of hepatitis C AB +. No viral load. Hx of opioid abuse Currently in treatment at [facility] Suboxone. Surgical History History of transesophageal echocardiography (YG) negative Retained foreign body L groin, s/p unsuccessful exploratory surgery H/O hand surgery contracted post-op Complete below knee amputation of right lower extremity 2018. 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 [facility]. Abscess secondary to IV drug use resulting in aneurysm of r ight leg status post femoral bypass. Family History Father Diabetes Paternal Grandfather Diabetes Paternal Aunt Diabetes Maternal Grandmother Breast cancer Maternal Aunt Multiple sclerosis Social History Smoking/Tobacco Use Status: Never Smoking risk assessment performed?: Yes Alcohol Intake: former Drug use: Current Sobriety Substance use type: former substance user, crack/cocaine, heroin and methamphetamine Details: former cocaine (snorted, smoked, IV) and heroin use (IV), as well as crystal meth (IV). Patient is currently enrolled at [facility], on suboxone Household members: children and other Details: Patient resides at her sister's house with her daughter Housing: apartment Number of Children: 1 current occupation: Unemployed Sexually active: Yes Do you think of yourself as: straight/heterosexual Current gender identity: female Seatbelt use: always Do you feel safe at home: Yes Do you feel safe in your relationship?: Yes Additional Social history: Ambulates with crutches - 2 falls recently Time Spent with Patient Time Spent with Patient: 45-69 minutes Time was spent: preparing to see the patient(eg.review tests), obtaining and/or reviewing separately otained hiistory, ordering medications,tests, procedures, indepentently interpreting results, counseling the patient and care coordination
--- NOTE | 2023-03-17 15:20 | PDOC.CMDIS ---
Date of service: 03/17/23 Time of Service: 15:20 LACE Index Scoring Tool Questions: Length of Stay (in days): 3 Was the patient admitted via the E.D.?: Yes Comorbidities: Liver or Renal Disease E.D. Visits: 1 Answers: Total Score: 12 Risk of Readmission: High Risk Care Management Discharge Plan Reason for Hospitalization: Thigh abscess Discharge Plan: Lindsay will return home with new home health services for nursing for wound vac care. She will follow up with her PCP and plan of care as prescribed and transport with her . Patient/Family Education Needs: Review discharge instructions, wound care, activity, limitations, follow up plan and discuss Ask Me Three. Services Needed at Discharge: Home Health Care Services
== END 2023-03-17 15:18 | disposition home health service (06) | DRG 572 ==
LOC: ER 16:28 → SUR 17:44 → MS 20:16
PROVIDERS: Physician Assistant; Surgery; Admitting Provider Surgery; Emergency Provider Nurse Practitioner Acute Care; PCP Nurse Practitioner; Visit Provider Surgery
PROC: 0J9L0ZZ Drainage of Right Upper Leg Subcutaneous Tissue and Fascia, Open Approach (ICD-10-PCS; CPT 27301; principal; 2023-03-14 17:10)
PROC: 2W1NX6Z Compression of Right Upper Leg using Pressure Dressing (ICD-10-PCS; CPT 97607; principal; 2023-03-15 12:45)
DX: L02.415 Cutaneous abscess of right lower limb (principal); Z89.511 Acquired absence of right leg below knee; Z89.512 Acquired absence of left leg below knee; Z89.022 Acquired absence of left finger(s); Z89.021 Acquired absence of right finger(s); I95.89 Other hypotension; R01.1 Cardiac murmur, unspecified; Z86.718 Personal history of other venous thrombosis and embolism; D50.9 Iron deficiency anemia, unspecified; I73.00 Raynaud's syndrome without gangrene; Z86.19 Personal history of other infectious and parasitic diseases; F19.11 Other psychoactive substance abuse, in remission
CPT/HCPCS: 27301; 97607; 36410; 36415; 73706; 80048; 80053; 87040; 87077; 87635; 96365; 96366; 96375; 99223; 99285; J1650; 73701; 80202; 83605; 83735; 84703; 85025; 87070; 87075; 87186; 87205; J0131; J1100; J1170; J1885; J2060; J2250; J2405; J2704; J3010; J3490

== ENCOUNTER 2023-05-08 10:42 | Emergency (ER) | payer MEDICARE, MEDICAID, SELFPAY ==
[2023-05-08] VITALS (18 sets, daily range): BP systolic 146; BP diastolic 95; PULSE 83–111; RESP 11–27; TEMP 36.3–36.8; O2SAT 99
--- NOTE | 2023-05-08 11:03 | W.ED.GENAD ---
HPI General Stated Complaint: ETOHWithdr LEIF: 3 Date/Time Provider Initiated Documentation: 05/08/23 10:43. Limitations to Documentation: no limitations. Information obtained by: patient. History of Present Illness alcohol withdrawal moderate hour(s) (2) constant No relieving factors improve symptom(s), No exacerbating factors reported denies chest pain, fever/chills and shortness of breath none Related Data Home Medications Medication Instructions Recorded Confirmed Acetaminophen [Tylenol] 650 mg PO Q4H PRN PRN ##0 07/27/21 05/08/23 buprenorphine 8 mg-naloxone 2 mg 2 film sublingual DAILY 05/10/22 05/08/23 sublingual film (Suboxone) melatonin 3 mg tablet 3 mg PO HS PRN 05/31/22 05/08/23 polyethylene glycol 3350 17 gram 17 g PO DAILY 05/31/22 05/08/23 oral powder packet norethindrone (contraceptive) 0.35 0.35 mg PO DAILY #28 tabs 01/22/23 05/08/23 mg tablet ibuprofen 800 mg tablet 800 mg PO TID PRN pain #270 tabs 03/28/23 05/08/23 pantoprazole 40 mg tablet,delayed 40 mg PO DAILY #90 tabs 03/28/23 05/08/23 release chlordiazepoxide HCl 25 mg capsule See Rx Instructions .Route 05/08/23 .COMPLEX PRN #27 caps Previous Rx's Medication Instructions Recorded Acetaminophen [Tylenol] 650 mg PO Q4H PRN PRN ##0 07/27/21 norethindrone (contraceptive) 0.35 0.35 mg PO DAILY #28 tabs 01/22/23 mg tablet ibuprofen 800 mg tablet 800 mg PO TID PRN pain #270 tabs 03/28/23 pantoprazole 40 mg tablet,delayed 40 mg PO DAILY #90 tabs 03/28/23 release chlordiazepoxide HCl 25 mg capsule See Rx Instructions .Route 05/08/23 .COMPLEX PRN #27 caps Allergies Allergy/AdvReac Type Severity Reaction Status Date / Time No Known Allergies Allergy Verified 03/28/23 16:43 Review of Systems All systems reviewed & are unremarkable except as noted in HPI and below Constitutional Constitutional: Denies chills, Denies fever(s) and Denies weakness Cardiovascular Cardiovascular: Denies chest pain and Denies dyspnea Respiratory Respiratory: Denies cough and Denies dyspnea Gastrointestinal Gastrointestinal: Denies abdominal pain, Reports nausea and Reports vomiting Genitourinary Genitourinary: Denies dysuria Musculoskeletal Musculoskeletal: Denies joint swelling Integumentary/Breasts Skin/Breast: Denies rash Neurologic Neurologic: Denies weakness Psychiatric Psychiatric: Denies depression [facility] All Active Problems (Updated 05/08/23 @ 13:27 by Sourav Armenta MD) Alcohol withdrawal (Acute) Abscess of right thigh (Acute) Leg wound, right (Acute) Anemia (Chronic) Gangrene of left foot (Acute) Retained foreign body (Acute) Vulvar cellulitis (Acute) History of herpes genitalis (Acute) Vulvar pain (Acute) Open wound of finger of right hand (Acute) Cellulitis of toe of left foot (Acute) Abnormal finding on imaging (Acute) Abnormal MRI (Acute) Dysuria (Acute) 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 Patient has appointment at [facility] in [place] for consideration of termination History of intravenous drug abuse (Acute) Cellulitis of left lower extremity (Acute) Poor intravenous access (Acute) Chronic infection as complication of amputation (Acute) Heart murmur (Acute) Hypotension (Chronic) Petechial rash (Acute) Acute on chronic anemia (Acute) Osteomyelitis of right lower extremity (Chronic) DVT, lower extremity, distal, acute (Acute) 10/24 2018 left lower extremity. Rx with Eliquis. Abnormal uterine bleeding (AUB) (Acute) On. Set 10/24/2018 heavy flow coinciding with initiation of Eliquis Normocytic hypochromic anemia (Acute) 10/26/2018 hemoglobin 8.2 MCV 83 Medical History Tenosynovitis of finger Leg wound, right Cellulitis of finger of right hand Endometriosis Raynaud disease Hx of hepatitis C AB +. No viral load. Hx of opioid abuse Currently in treatment at [facility]. Suboxone. Surgical History History of transesophageal echocardiography (YG) negative Retained foreign body L groin, s/p unsuccessful exploratory surgery H/O hand surgery contracted post-op Complete below knee amputation of right lower extremity 2018. 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 [facility]. 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 Family History Father Diabetes Paternal Grandfather Diabetes Paternal Aunt Diabetes Maternal Grandmother Breast cancer Maternal Aunt Multiple sclerosis Social History Smoking/Tobacco Use Status: Never Smoking risk assessment performed?: Yes Alcohol Intake: former Drug use: Current Sobriety Substance use type: former substance user, crack/cocaine, heroin and methamphetamine Details: former cocaine (snorted, smoked, IV) and heroin use (IV), as well as crystal meth (IV). Patient is currently enrolled at [facility], on suboxone Household members: children and other Details: Patient resides at her sister's house with her daughter Housing: apartment Number of Children: 1 current occupation: Unemployed Sexually active: Yes Do you think of yourself as: straight/heterosexual Current gender identity: female Seatbelt use: always Do you feel safe at home: Yes Do you feel safe in your relationship?: Yes Additional Social history: Ambulates with crutches - 2 falls recently Exam Const General: no acute distress Orientation: alert HENVT Head: normal to inspection Ears: external ears normal General nose exam: external nose normal Mouth: moist mucous membranes Eyes General: appearance normal, both eyes and all related structures Neck Neck: normal visual inspection Resp Effort & Inspection: normal respiratory effort and able to speak in complete sentences Auscultation: clear to auscultation bilaterally Cardio Jugular venous pressure: no JVD Rate: regular rate Heart Sounds: no murmurs GI Palpation: soft and nontender Skin General skin exam: no rashes or lesions noted Neuro General: patient alert and patient oriented x3 Extrem General: normal to inspection Psych Mental Status: mental status grossly normal Course Vital Signs Vital signs: Vital Signs Temperature 36.8 C 05/08/23 10:47 Pulse 84 05/08/23 10:47 Respiratory Rate 18 05/08/23 10:47 Blood Pressure 146/95 H 05/08/23 10:47 Pulse Oximetry 99 05/08/23 10:47 Temperature 36.8 C 05/08/23 10:47 Pulse 84 05/08/23 10:47 Respiratory Rate 18 05/08/23 10:47 Respiratory Effort Normal, Non-Labored 05/08/23 10:51 Blood Pressure 146/95 H 05/08/23 10:47 Blood Pressure Position Sitting 05/08/23 10:47 Pulse Oximetry 99 05/08/23 10:47 Oxygen Delivery Method Room Air 05/08/23 10:47 Oxygen Flow Rate 0 05/08/23 10:47 Medical Decision Making 42 yo female with prior history of substance abuse and states no longer uses drugs, who comes in with complaints of feeling as though she is in alcohol withdrawal. She states the last few months she has been drinking daily throughout the day and will go through a 1/5 bottle of vodka daily and have beer. She has noticed if she goes a few hours without alcohol she'll start feeling anxious, shakes and has n/v. She last had vodka at 0700 per the patient and is now feeling anxious, feeling shaky and having nausea. She denies fevers, chills, chest pain, dyspnea, and denies si/hi. Stable vitals on arrival. No focal deficits, no treomors on exam, clear speech. Suspect alcohol withdrawal given her history, will check for electrolyte abnormalities and treat with lorazepam and reassess. labs unremarkable, mild low K repleted orally, eating food and in no distress feels better after ativan, she is stable enough where she can be managed as an outpatient, will have living coach reach out to the patient pt still stable and has no symptoms now, talked with living coach who will f/u with outpatient. Pt doesn't want to continue drinking alcohol, discussed risks of librium and drinking alcohol and she states she will not consume alcohol with librium and has decision making capacity, will start on librium taper, advised to f/u with pcp and return precautions given Differential Diagnosis Differential Diagnosis: alcohol abuse, alcohol withdrawal, electrolyte abnormality Medical Records Medical records reviewed: Yes I reviewed the patient's medical records. Lab Data Lab results reviewed: Yes I reviewed the patient's lab results. Quality:SDOH Health Related Social Needs: No Data to Display Discharge Plan Disposition Patient Disposition: Home Condition: Stable Discharge Details Clinical Impression: Alcohol withdrawal Primary Care Provider: Georgette Reza ED Provider: Sourav Armenta Home Meds and New Rx's Prescriptions: New chlordiazepoxide HCl 25 mg capsule See Rx Instructions .ROUTE .COMPLEX PRNQty: 27 0RF Rx Instructions: take 50mg every 8 hours for 3 days, then 25mg every 8 hours for another two days then 25mg twice a day for one day then 25mg at night once Continued pantoprazole 40 mg tablet,delayed release (DR/EC) 40 mg PO DAILY Qty: 90 0RF ibuprofen 800 mg tablet 800 mg PO TID PRN (Reason: pain) Qty: 270 0RF melatonin 3 mg tablet 3 mg PO HS PRN polyethylene glycol 3350 17 gram powder in packet 17 g PO DAILY norethindrone (contraceptive) 0.35 mg tablet 0.35 mg PO DAILY Qty: 28 0RF Hold Instructions: pt ran out never refiled Acetaminophen [Tylenol] 650 mg PO Q4H PRN PRNQty: 0 0RF buprenorphine-naloxone [Suboxone] 8-2 mg film 2 film sublingual DAILY Patient Comments: PLACE TWO FILMS UNDER THE TONGUE EVERY DAY FOR 7 DAYS Discharge Instructions Instructions: Alcohol Withdrawal (ED) Additional Instructions: do not consume alcohol with the librium (chlordiazepoxide) follow up with your primary care provider within 1 week if you feel more ill, have persistent vomiting or difficulty breathing return to the emergency department
[2023-05-08] MEDS: LORazepam 2 MG/ML VIAL IVP (11:47)
[2023-05-08] MEDS: THIAMINE 100 MG in Normal Saline 100 ML 200 MG IVPB (11:48)
[2023-05-08] MEDS: Normal Saline 1,000 ML 1000 ML IV (11:48)
[2023-05-08 11:56] LABS: Bilirubin Negative (Negative); Blood Trace-intact (Negative); Clarity Clear (Clear); Glucose Negative (Negative); Ketones Negative (Negative); Leukocyte Esterase Negative (Negative); Nitrite Negative (Negative); Specific Gravity >= 1.030 (1.005-1.025); pH 6.5 (5-8)
[2023-05-08 12:03] LABS: ALT 38 U/L (14-59); AST 73 U/L (15-37); Albumin 3.6 g/dL (3.4-5.0); Alkaline Phosphatase 115 U/L (46-116); Anion Gap 11.5 mmol/L (3-11); BUN 10 mg/dL (7-18); Bilirubin, Direct 0.2 mg/dL (0.0-0.2); Bilirubin, Total 0.6 mg/dL (0.2-1.0); CO2 24.5 mmol/L (21.0-32.0); CREATININE 0.8 mg/dL (0.55-1.02); Calcium 8.6 mg/dL (8.5-10.1); Chloride 103 mmol/L (98-107); ETHANOL BLOOD 69.8 mg/dL (<10); Estimated GFR 95.46 (mL/min/1.73m2); Glucose 98 mg/dL (74-106); Magnesium 1.8 mg/dL (1.8-2.4); Sodium 139 mmol/L (136-145)
[2023-05-08 12:05] LABS: Bacteria Few HPF (Negative); C & S Indicated? No; Casts Negative LPF (Negative); Crystals Negative HPF (Negative); Epithelial Cells Negative HPF (Negative); Mucus Moderate (Negative); Other Cells Negative (Negative); WBC 0-2 HPF (0-5)
[2023-05-08 12:09] LABS: Salicylate < 2.8 mg/dL (<2.8)
[2023-05-08 12:17] LABS: *AMPHETAMINES SCREEN URINE Negative (Negative); *BARBITURATES SCREEN URINE Negative (Negative); *BENZODIAZEPINES SCREEN URINE Negative (Negative); Cannabinoids THC Negative (Negative); Cocaine Screen,Urine Positive (Negative); METHADONE URINE SCREEN Negative (Negative); OPIATES URINE SCREEN Negative (Negative)
[2023-05-08 12:18] LABS: Tricyclic Antidepressants Negative (Negative)
[2023-05-08] MEDS: Potassium Chloride 20 MEQ TABCR 40 MEQ PO (12:41)
[2023-05-08] MEDS: chlordiazePOXIDE 25 MG CAP 50 MG PO (13:47)
[2023-05-08] MEDS: chlordiazePOXIDE 25 MG CAP 100 MG PO (16:10)
--- NOTE | 2023-05-09 12:10 | NUR.NOTE ---
Addendum entered by Louise Daley 05/09/23 12:31: Per Dr Phoenix it is a controlled substance, she cannot prescribe for another provider. Patient was told to contact her PCP to have the presription resent to [facility] so that she can get it filled. Original Note: Accessed chart to see the prescription. Per Dr Phoenix it cannot be called in. Per patient [facility] not have it, but [facility] does. She will resent it there. Nursing Note:
== END 2023-05-08 13:53 | disposition home or self-care (01) ==
PROVIDERS: Emergency Provider Emergency Medicine; PCP Nurse Practitioner
DX: F10.230 Alcohol dependence with withdrawal, uncomplicated (principal); Y90.3 Blood alcohol level of 60-79 mg/100 ml; Z89.511 Acquired absence of right leg below knee
CPT/HCPCS: 36415; 80053; 80307; 81025; 96365; 96375; 99283; 80320; 80329; 81003; 81015; 82248; 83735; J2060; J3411

== ENCOUNTER 2023-06-19 13:20 | Outpatient (REF) | payer MEDICARE, MEDICAID, SELFPAY ==
[2023-06-20 13:15] LABS: Chlamydia Result Negative (Negative); GC Result Negative (Negative)
== END 2023-06-19 13:21 | disposition home or self-care (01) ==
LOC: LBN 13:20
PROVIDERS: PCP Nurse Practitioner; Visit Provider Advanced Practice Midwife
DX: Z20.2 Contact with and (suspected) exposure to infections with a predominantly sexual mode of transmission (principal)
CPT/HCPCS: 87491; 87591

== ENCOUNTER 2023-07-08 13:55 | Emergency (ER) | payer MEDICARE, MEDICAID, SELFPAY ==
[2023-07-08] VITALS (101 sets, daily range): BP systolic 123–143; BP diastolic 68–88; PULSE 91–110; RESP 9–47; TEMP 36.1; O2SAT 97–98
--- NOTE | 2023-07-08 14:15 | ED.GENADUL_ITS ---
Discharge Plan Disposition Patient Disposition: Home Condition: Stable Discharge Details Clinical Impression: Alcohol withdrawal Primary Care Provider: Georgette Reza ED Provider: Sourav Armenta Home Meds and New Rx's Prescriptions: New chlordiazepoxide HCl 25 mg capsule See Rx Instructions .ROUTE .COMPLEX Qty: 10 0RF Rx Instructions: chlordiazepoxide 50 mg PO q12h on d 1; 25 mg PO q8h on d 2; 25 mg PO q12h on d 3; 25 mg PO at night on d 4 Continued pantoprazole 40 mg tablet,delayed release (DR/EC) 40 mg PO DAILY Qty: 90 0RF ibuprofen 800 mg tablet 800 mg PO TID PRN (Reason: pain) Qty: 270 0RF melatonin 3 mg tablet 3 mg PO HS PRN norethindrone (contraceptive) 0.35 mg tablet 0.35 mg PO DAILY Qty: 84 4RF Hold Instructions: pt ran out never refiled Acetaminophen [Tylenol] 650 mg PO Q4H PRN PRNQty: 0 0RF buprenorphine-naloxone [Suboxone] 8-2 mg film 2 film sublingual DAILY Patient Comments: PLACE TWO FILMS UNDER THE TONGUE EVERY DAY FOR 7 DAYS Discharge Instructions Additional Instructions: Do not drink alcohol with taking the Librium Follow-up with your primary care provider within 1 to 2 weeks If feel more ill, have persistent vomiting, or new symptoms such as difficulty breathing return to the emergency department HPI General Mode of arrival: wheelchair . Date/Time Provider Initiated Documentation: 07/08/23 13:55 . Limitations to Documentation: no limitations . Information obtained by: patient . History of Present Illness 42 year old F presents to the emergency department with the chief complaint of Alcohol withdrawal, described as moderate, Patient started experiencing this day(s) (1) and it has been constant. No relieving factors improve symptom(s), No exacerbating factors reported . Patient notes denies chest pain, fever/chills and shortness of breath. Patient did receive the following treatments prior to arrival, none Related Data Home Medications Medication Instructions Recorded Confirmed Acetaminophen [Tylenol] 650 mg PO Q4H PRN PRN ##0 07/27/21 07/08/23 buprenorphine 8 mg-naloxone 2 mg 2 film sublingual DAILY 05/10/22 07/08/23 sublingual film (Suboxone) melatonin 3 mg tablet 3 mg PO HS PRN 05/31/22 07/08/23 ibuprofen 800 mg tablet 800 mg PO TID PRN pain #270 tabs 03/28/23 07/08/23 pantoprazole 40 mg tablet,delayed 40 mg PO DAILY #90 tabs 03/28/23 07/08/23 release norethindrone (contraceptive) 0.35 0.35 mg PO DAILY #84 tabs 06/25/23 07/08/23 mg tablet chlordiazepoxide HCl 25 mg capsule See Rx Instructions .Route 07/08/23 .COMPLEX #10 caps Previous Rx's Medication Instructions Recorded Acetaminophen [Tylenol] 650 mg PO Q4H PRN PRN ##0 07/27/21 ibuprofen 800 mg tablet 800 mg PO TID PRN pain #270 tabs 03/28/23 pantoprazole 40 mg tablet,delayed 40 mg PO DAILY #90 tabs 03/28/23 release norethindrone (contraceptive) 0.35 0.35 mg PO DAILY #84 tabs 06/25/23 mg tablet chlordiazepoxide HCl 25 mg capsule See Rx Instructions .Route 07/08/23 .COMPLEX #10 caps Allergies Allergy/AdvReac Type Severity Reaction Status Date / Time No Known Allergies Allergy Verified 07/08/23 14:02 General Stated Complaint: ETOHWithdr LEIF: 3 Review of Systems All systems reviewed & are unremarkable except as noted in HPI and below Constitutional Constitutional: Denies chills, Denies fever(s) and Denies weakness Cardiovascular Cardiovascular: Denies chest pain and Denies dyspnea Respiratory Respiratory: Denies cough and Denies dyspnea Gastrointestinal Gastrointestinal: Denies abdominal pain, Reports nausea and Reports vomiting Genitourinary Genitourinary: Denies dysuria Integumentary/Breasts Skin/Breast: Denies rash Neurologic Neurologic: Denies weakness Exam Const General: no acute distress Orientation: alert [facility] Head: normal to inspection Ears: external ears normal General nose exam: external nose normal Mouth: moist mucous membranes Eyes General: appearance normal, both eyes and all related structures Neck Neck: normal visual inspection Resp Effort & Inspection: normal respiratory effort and able to speak in complete sentences Cardio Rate: regular rate GI Palpation: soft and nontender Skin General skin exam: no rashes or lesions noted Neuro General: patient alert and patient oriented x3 Extrem General: normal to inspection Psych Mental Status: mental status grossly normal Course Vital Signs Vital signs: Vital Signs Temperature 36.1 C L 07/08/23 14:04 Pulse 91 H 07/08/23 14:04 Respiratory Rate 16 07/08/23 14:04 Blood Pressure 143/84 H 07/08/23 14:04 Pulse Oximetry 97 07/08/23 14:04 Temperature 36.1 C L 07/08/23 14:04 Temperature Source Temporal Artery Scan 07/08/23 14:04 Pulse 91 H 07/08/23 14:04 Respiratory Rate 16 07/08/23 14:04 Respiratory Effort Normal, Non-Labored 07/08/23 14:07 Blood Pressure 143/84 H 07/08/23 14:04 Blood Pressure Position Sitting 07/08/23 14:04 Pulse Oximetry 97 07/08/23 14:04 Oxygen Delivery Method Room Air 07/08/23 14:04 Oxygen Flow Rate 0 07/08/23 14:04 Pain Level 8 07/08/23 14:04 Medical Decision Making 42-year-old female with a history of substance abuse, states she relapsed into drinking about a month ago, last drink was this morning, states she feels like she is in withdrawal. She had a similar presentation in April, states she did well on Librium but then relapsed. Denies any IV drug use. She says she feels anxious, jittery, and has nausea and vomiting. No dyspnea, no chest pain, no abdominal pain. Alert and oriented x 4 speaking clearly soft nontender abdomen. Suspect alcohol withdrawal, will obtain CBC CMP and treat with Ativan and reassess Labs show alcohol level of 180, is clinically sober, anion gap is 19 which I suspect is from the alcohol use and dehydration. Will recheck after 2 L of IV fluids are given. She is feeling better, eating without any nausea or vomiting. No tremor still, vital signs stable Patient stable, eating and drinking without any issues. Clinically sober still no acute complaints feels much better. Repeat anion gap has improved. She does not meet criteria to keep her inpatient for alcohol withdrawal. She states she had good success with Librium last time, understands not to drink any alcohol while taking this. She will follow-up with her primary care provider return precautions given Differential Diagnosis Differential Diagnosis: Alcohol withdrawal, substance abuse, electrolyte abnormality Medical Records Medical records reviewed: Yes I reviewed the patient's medical records. Lab Data Lab results reviewed: Yes I reviewed the patient's lab results. Quality:SDOH Health Related Social Needs: No Data to Display PFSH All Active Problems (Updated 07/08/23 @ 17:55 by Sourav Armenta MD) Alcohol withdrawal (Acute) Encounter for counseling regarding contraception (Acute) Possible exposure to STI (Acute) Abdominal aneurysm, ruptured (Acute) Encounter for screening examination for sexually transmitted disease (Acute) Abscess of right thigh (Acute) Leg wound, right (Acute) Anemia (Chronic) Gangrene of left foot (Acute) Retained foreign body (Acute) Vulvar cellulitis (Acute) History of herpes genitalis (Acute) Vulvar pain (Acute) Open wound of finger of right hand (Acute) Cellulitis of toe of left foot (Acute) Abnormal finding on imaging (Acute) Abnormal MRI (Acute) Dysuria (Acute) 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 [facility] has [facility] at [facility] in [place] for consideration of termination History of intravenous drug abuse (Acute) Cellulitis of left lower extremity (Acute) Poor intravenous access (Acute) Chronic infection as complication of amputation (Acute) Heart murmur (Acute) Hypotension (Chronic) Petechial rash (Acute) Acute on chronic anemia (Acute) Osteomyelitis of right lower extremity (Chronic) DVT, lower extremity, distal, acute (Acute) 10/24 2018 left lower extremity. Rx with Eliquis. Abnormal uterine bleeding (AUB) (Acute) On. Set 10/24/2018 heavy flow coinciding with initiation of Eliquis Normocytic hypochromic anemia (Acute) 10/26/2018 hemoglobin 8.2 MCV 83 Medical History Tenosynovitis of finger Leg wound, right Cellulitis of finger of right hand Endometriosis Raynaud disease Hx of hepatitis C AB +. No viral load. Hx of opioid abuse Currently in treatment at [facility]. Suboxone. Surgical History History of transesophageal echocardiography (YG) negative Retained foreign body L groin, s/p unsuccessful exploratory surgery H/O hand surgery contracted post-op Complete below knee amputation of right lower extremity 2018. 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 [facility]. 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 Family History Father Diabetes Paternal Grandfather Diabetes Paternal Aunt Diabetes Maternal Grandmother Breast cancer Maternal Aunt Multiple sclerosis Social History Smoking/Tobacco Use Status: Never Smoking risk assessment performed?: Yes Alcohol Intake: current Alcohol Intake frequency: 3 or more drinks per day Alcohol type: beer and hard liquor Drug use: Rarely Substance use type: former substance user, crack/cocaine, heroin and methamphetamine Details: former cocaine (snorted, smoked, IV) and heroin use (IV), as well as crystal meth (IV). Patient is currently enrolled at [facility], on suboxone Household members: children and other Details: Patient resides at her sister's house with her daughter Housing: apartment Number of Children: 1 current occupation: Unemployed Sexually active: Yes Do you think of yourself as: straight/heterosexual Current gender identity: female Seatbelt use: always Do you feel safe at home: Yes (new restraining order on ) Do you feel safe in your relationship?: No Additional Social history: Ambulates with crutches - 2 falls recently PAWSS Have you Been Recently Intoxicated or Drunk Within the Last 30 days?: Yes Have you Ever Experienced Previous Episodes of Alcohol Withdrawal?: Yes Have you ever Experienced Withdrawal Seizures?: No Have you ever Experienced Delirium Tremens(DT)s?: Yes Have you ever undergone Alcohol Rehabilitation Treatment (i.e, inpt ot o utpatient treatment programs)?: Yes Have you ever Experienced Blackouts?: Yes Have you ever Combined Alcohol with other Downers within the last 90 days?: No Have you ever Combined Alcohol with any other Substance of Abuse during the last 90 days?: Yes Positive Blood Alcohol level on Presentation? [PCS.BAL]: Yes Evidence of Increased Autonomic Activity (i.e. HR>120, tremor, sweating, agitation, nausea)?: No Result: 8
[2023-07-08 14:51] LABS: Abs Immature Grans 0.04 10^3/uL (0.0-0.06); Absolute Basophil Count 0.02 10^3/uL (0.0-0.2); Absolute Eosinophil Count 0.01 10^3/uL (0.0-0.7); Absolute Lymphocyte Count 0.37 10^3/uL (1.2-3.4); Absolute Monocyte Count 0.17 10^3/uL (0.1-0.8); Absolute Neutrophil Count 5.36 10^3/uL (1.2-6.7); Basophils % 0.3; Eosinophils % 0.2; HCT 35.2 % (36.0-46.0); HGB 11.4 g/dL (11.2-15.7); Immature Grans % 0.7; Lymphocytes % 6.2; MCH 30.6 pg (27.0-33.0); MCHC 32.4 % (32.0-36.0); MCV 94 fL (80-95); MPV 10.9 fL (8.0-11.0); Monocytes % 2.8; Neutrophils % 89.8; Platelet Count 102 10^3/uL (130-400); RBC 3.73 10^6/uL (3.93-5.22); RDW 13.5 % (11.7-14.6); RDW-SD 46.7 fL; WBC 5.97 10^3/uL (4.4-10.8)
[2023-07-08] MEDS: Normal Saline 1,000 ML 1000 ML IV (14:56)
[2023-07-08] MEDS: LORazepam 2 MG/ML VIAL IVP (14:57)
[2023-07-08 15:09] LABS: HCG Qual (Serum) Negative
[2023-07-08 15:13] LABS: ALT 129 U/L (14-59); AST 161 U/L (15-37); Albumin 3.9 g/dL (3.4-5.0); Alkaline Phosphatase 96 U/L (46-116); Anion Gap 19.6 mmol/L (3-11); BUN 19 mg/dL (7-18); CO2 18.4 mmol/L (21.0-32.0); CREATININE 0.7 mg/dL (0.55-1.02); Calcium 8.8 mg/dL (8.5-10.1); Chloride 96 mmol/L (98-107); ETHANOL BLOOD 187.8 mg/dL (<10); Estimated GFR 112.05 (mL/min/1.73m2); Glucose 216 mg/dL (74-106); Magnesium 1.8 mg/dL (1.8-2.4); Potassium 3.7 mmol/L (3.5-5.1); Sodium 134 mmol/L (136-145); Total Protein 8.5 g/dL (6.4-8.2)
[2023-07-08] MEDS: Lactated Ringers 1,000 ML 1000 ML IV (16:40)
[2023-07-08 17:47] LABS: Anion Gap 15.6 mmol/L (3-11); BUN 14 mg/dL (7-18); CO2 22.4 mmol/L (21.0-32.0); CREATININE 0.6 mg/dL (0.55-1.02); Calcium 7.9 mg/dL (8.5-10.1); Chloride 101 mmol/L (98-107); Glucose 136 mg/dL (74-106); Potassium 3.5 mmol/L (3.5-5.1); Sodium 139 mmol/L (136-145)
[2023-07-08] MEDS: chlordiazePOXIDE 25 MG CAP 50 MG PO (18:08)
== END 2023-07-08 18:14 | disposition home or self-care (01) ==
PROVIDERS: Emergency Provider Emergency Medicine; PCP Nurse Practitioner
DX: F10.230 Alcohol dependence with withdrawal, uncomplicated (principal); F19.10 Other psychoactive substance abuse, uncomplicated; Z89.511 Acquired absence of right leg below knee; Y90.6 Blood alcohol level of 120-199 mg/100 ml
CPT/HCPCS: 36415; 80048; 80053; 99283; 80320; 83735; 84703; 85025; J2060

== ENCOUNTER 2023-07-08 21:49 | Emergency (ER) | payer MEDICARE, MEDICAID, SELFPAY ==
[2023-07-08 21:54] VITALS: BP 139/87; PULSE 97; RESP 18; TEMP 36.7; O2SAT 97
--- NOTE | 2023-07-08 22:22 | W.ED.GENAD ---
Discharge Plan Disposition Patient Disposition: Home Condition: Good Discharge Details Clinical Impression: Alcohol withdrawal Primary Care Provider: Georgette Reza ED Provider: Joanne Arreguin Home Meds and New Rx's Prescriptions: Continued pantoprazole 40 mg tablet,delayed release (DR/EC) 40 mg PO DAILY Qty: 90 0RF ibuprofen 800 mg tablet 800 mg PO TID PRN (Reason: pain) Qty: 270 0RF melatonin 3 mg tablet 3 mg PO HS PRN norethindrone (contraceptive) 0.35 mg tablet 0.35 mg PO DAILY Qty: 84 4RF Hold Instructions: pt ran out never refiled Acetaminophen [Tylenol] 650 mg PO Q4H PRN PRNQty: 0 0RF buprenorphine-naloxone [Suboxone] 8-2 mg film 2 film sublingual DAILY Patient Comments: PLACE TWO FILMS UNDER THE TONGUE EVERY DAY FOR 7 DAYS chlordiazepoxide HCl 25 mg capsule See Rx Instructions .ROUTE .COMPLEX Qty: 10 0RF Rx Instructions: chlordiazepoxide 50 mg PO q12h on d 1; 25 mg PO q8h on d 2; 25 mg PO q12h on d 3; 25 mg PO at night on d 4 Discharge Instructions Instructions: Alcohol Withdrawal (ED) Additional Instructions: You can take one valium this morning at 8am if needed for withdrawal symptoms. Start taking the librium you were prescribed after you are able to pick it up from the pharmacy. Do not drive, swim, or operate machinery while taking these medications. Call your primary care doctor on Sunday to schedule an appointment withn the next 3 days to follow up on your visit here. Return to the emergency department for new or worsening symptoms including if your withdrawal symptoms become more severe again. HPI General Mode of arrival: ambulatory. Date/Time Provider Initiated Documentation: 07/08/23 21:50. Limitations to Documentation: no limitations. Information obtained by: patient and old records reviewed. HPI Narrative: 42yo F with hx polysubstance use, bl BKA 2/t aneurysem rupture, ETOH abuse and hx ETOH withdrawal, presenting with concern for ETOH withdrawal symptoms. Last drink this morning; seen in this ED earlier in the evening for ETOH withdrawal and treated with ativan, dced with course of librium. Took the dose of librium this evening at 8pm but still found withdrawal symptoms increasing (headache, tremors, sweatiness, anxiety). Typical of her prior episodes of ETOH withdrawal. No history of withdrawal seizures or DTs, no hospital/iCU admission for withdrawal in the past. No other changes from her ED visit earlier today. Otherwise in her usual state of health. Related Data Home Medications Medication Instructions Recorded Confirmed Acetaminophen [Tylenol] 650 mg PO Q4H PRN PRN ##0 07/27/21 07/08/23 buprenorphine 8 mg-naloxone 2 mg 2 film sublingual DAILY 05/10/22 07/08/23 sublingual film (Suboxone) melatonin 3 mg tablet 3 mg PO HS PRN 05/31/22 07/08/23 ibuprofen 800 mg tablet 800 mg PO TID PRN pain #270 tabs 03/28/23 07/08/23 pantoprazole 40 mg tablet,delayed 40 mg PO DAILY #90 tabs 03/28/23 07/08/23 release norethindrone (contraceptive) 0.35 0.35 mg PO DAILY #84 tabs 06/25/23 07/08/23 mg tablet chlordiazepoxide HCl 25 mg capsule See Rx Instructions .Route 07/08/23 07/08/23 .COMPLEX #10 caps Previous Rx's Medication Instructions Recorded Acetaminophen [Tylenol] 650 mg PO Q4H PRN PRN ##0 07/27/21 ibuprofen 800 mg tablet 800 mg PO TID PRN pain #270 tabs 03/28/23 pantoprazole 40 mg tablet,delayed 40 mg PO DAILY #90 tabs 03/28/23 release norethindrone (contraceptive) 0.35 0.35 mg PO DAILY #84 tabs 06/25/23 mg tablet chlordiazepoxide HCl 25 mg capsule See Rx Instructions .Route 07/08/23 .COMPLEX #10 caps Allergies Allergy/AdvReac Type Severity Reaction Status Date / Time No Known Allergies Allergy Verified 07/08/23 14:02 General Stated Complaint: ETOHWithdr LEIF: 3 Review of Systems Narrative: see HPI Exam Narrative Exam Narrative: General: Alert, non-toxic, well nourished, in no acute distress. Head: Normocephalic, atraumatic Neck: Trachea midline, ?Neck supple. Cardiac: ?RRR, no murmurs appreciated Resp: No respiratory distress. CTAB. Abd: ?Soft, non-distended, nontender : ?No suprapubic tenderness. Extremities: ?Bilateral LE amputations, finger amputation. Neurologic: GCS 15. ? Moves all extremities freely against gravity. No tremors. . Course Vital Signs Vital signs: Vital Signs Temperature 36.7 C 07/08/23 21:54 Pulse 97 H 07/08/23 21:54 Respiratory Rate 18 07/08/23 21:54 Blood Pressure 139/87 07/08/23 21:54 Pulse Oximetry 97 07/08/23 21:54 Temperature 36.7 C 07/08/23 21:54 Pulse 97 H 07/08/23 21:54 Respiratory Rate 18 07/08/23 21:54 Respiratory Effort Normal, Non-Labored 07/08/23 21:58 Blood Pressure 139/87 07/08/23 21:54 Pulse Oximetry 97 07/08/23 21:54 Oxygen Delivery Method Room Air 07/08/23 21:54 Oxygen Flow Rate 0 07/08/23 21:54 Medical Decision Making 42yo F with hx polysubstance use, bl BKA 2/t aneurysem rupture, ETOH abuse and hx ETOH withdrawal, presenting with concern for ETOH withdrawal symptoms. Last drink this morning; seen in this ED earlier in the evening for ETOH withdrawal and treated with ativan, dced with course of librium. Took the dose of librium this evening at 8pm but still found withdrawal symptoms increasing. No history of withdrawal seizures or DTs, no hospital/iCU admission for withdrawal in the past. Vital signs and exam reassuring, initial CIWA 11 after librium 2 hours ago. ED visit note from earlier today reviewed. Labs earlier overall reassuring, mild anion gap acidosis attributed to ETOH. Will treat here with 10mg PO diazapam and reassess, get repeat blood work. Patient with difficult venous access despite multiple attempts, BMP did improve throughout prior ED stay bicarb in normal range prior to discahrge and gap improved to 15 from 19. Discussed with patient and we will forgo repeat bloodwork at this time. Repeat CIWA 2 and patient reports feeling much improved. I would like to observe her for an additional 2 hours and repeat CIWA at that time, however she requests discharge home which is not unreasonable; has a ride. Sent home with 5mg PO diazapam to take in the morning, plan to fill her librium prescription when the pharmacy is open. Discharge instructions and return precautions were reviewed with patient who verbalized understanding. All questions were answered and she is in full agreement with the plan. Medical Records Medical records reviewed: Yes I reviewed the patient's medical records. Medical records narrative: ED visit note 07/07 Lab Data Lab results reviewed: Yes I reviewed the patient's lab results. Labs: Laboratory Tests Range/Units 07/08/23 23:00 WBC Cancelled RBC Cancelled Hgb Cancelled Hct Cancelled MCV Cancelled MCH Cancelled MCHC Cancelled RDW Cancelled Plt Count Cancelled MPV Cancelled Immature Gran % Cancelled Neutrophils % Cancelled Band Neutrophils % Cancelled Lymphocytes % Cancelled Atypical Lymphs % Cancelled Monocytes % Cancelled Eosinophils % Cancelled Basophils % Cancelled Metamyelocytes % Cancelled Myelocytes % Cancelled Promyelocytes % Cancelled Other Cells % Cancelled Nucleated RBC % Cancelled Absolute Neutrophils Cancelled Absolute Lymphocytes Cancelled Absolute Monocytes Cancelled Absolute Eosinophils Cancelled Absolute Basophils Cancelled RBC Morphology Cancelled Polychromasia Cancelled Hypochromasia Cancelled Poikilocytosis Cancelled Basophilic Stippling Cancelled Anisocytosis Cancelled Microcytosis Cancelled Macrocytosis Cancelled Spherocytes Cancelled Tear Drop Cells Cancelled Ovalocytes Cancelled Stomatocytes Cancelled [place] Bodies Cancelled Schwertner Cells/Echinocytes Cancelled Acanthocytes (Spur) Cancelled Schistocytes Cancelled Sodium Cancelled Potassium Cancelled Chloride Cancelled Carbon Dioxide Cancelled Anion Gap Cancelled BUN Cancelled Creatinine Cancelled Est GFR (CKD-EPI 2020) Cancelled Glucose Cancelled Calcium Cancelled Total Bilirubin Cancelled AST Cancelled ALT Cancelled Alkaline Phosphatase Cancelled Total Protein Cancelled Albumin Cancelled Ethyl Alcohol Cancelled Quality:SDOH Health Related Social Needs: No Data to Display PFSH All Active Problems (Updated 07/09/23 @ 00:45 by Joanne Arreguin MD) Alcohol withdrawal (Acute) Alcohol withdrawal (Acute) Encounter for counseling regarding contraception (Acute) Possible exposure to STI (Acute) Abdominal aneurysm, ruptured (Acute) Encounter for screening examination for sexually transmitted disease (Acute) Abscess of right thigh (Acute) Leg wound, right (Acute) Anemia (Chronic) Gangrene of left foot (Acute) Retained foreign body (Acute) Vulvar cellulitis (Acute) History of herpes genitalis (Acute) Vulvar pain (Acute) Open wound of finger of right hand (Acute) Cellulitis of toe of left foot (Acute) Abnormal finding on imaging (Acute) Abnormal MRI (Acute) Dysuria (Acute) 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 [facility] at [facility] in [place] for consideration of termination History of intravenous drug abuse (Acute) Cellulitis of left lower extremity (Acute) Poor intravenous access (Acute) Chronic infection as complication of amputation (Acute) Heart murmur (Acute) Hypotension (Chronic) Petechial rash (Acute) Acute on chronic anemia (Acute) Osteomyelitis of right lower extremity (Chronic) DVT, lower extremity, distal, acute (Acute) 10/24 2018 left lower extremity. Rx with Eliquis. Abnormal uterine bleeding (AUB) (Acute) On. Set 10/24/2018 heavy flow coinciding with initiation of Eliquis Normocytic hypochromic anemia (Acute) 10/26/2018 hemoglobin 8.2 MCV 83 Medical History Tenosynovitis of finger Leg wound, right Cellulitis of finger of right hand Endometriosis Raynaud disease Hx of hepatitis C AB +. No viral load. Hx of opioid abuse Currently in treatment at [facility]. Suboxone. Surgical History History of transesophageal echocardiography (YG) negative Retained foreign body L groin, s/p unsuccessful exploratory surgery H/O hand surgery contracted post-op Complete below knee amputation of right lower extremity 2018. 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 [facility]. 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 Family History Father Diabetes Paternal Grandfather Diabetes Paternal Aunt Diabetes Maternal Grandmother Breast cancer Maternal Aunt Multiple sclerosis Social History Smoking/Tobacco Use Status: Never Smoking risk assessment performed?: Yes Alcohol Intake: current Alcohol Intake frequency: 3 or more drinks per day Alcohol type: beer and hard liquor Drug use: Rarely Substance use type: former substance user, crack/cocaine, heroin and methamphetamine Details: former cocaine (snorted, smoked, IV) and heroin use (IV), as well as crystal meth (IV). Patient is currently enrolled at [facility], on suboxone Household members: children and other Details: Patient resides at her sister's house with her daughter Housing: apartment Number of Children: 1 current occupation: Unemployed Sexually active: Yes Do you think of yourself as: straight/heterosexual Current gender identity: female Seatbelt use: always Do you feel safe at home: Yes (new restraining order on ) Do you feel safe in your relationship?: No Additional Social history: Ambulates with crutches - 2 falls recently PAWSS Have you Been Recently Intoxicated or Drunk Within the Last 30 days?: Yes Have you Ever Experienced Previous Episodes of Alcohol Withdrawal?: Yes Have you ever Experienced Withdrawal Seizures?: No Result: 2
[2023-07-08] MEDS: diazePAM 5 MG TAB 10 MG PO (22:40)
[2023-07-09 00:39] VITALS: BP 154/104; PULSE 84; RESP 20; TEMP 36.9; O2SAT 98
[2023-07-09] MEDS: diazePAM 5 MG TAB PO (00:54)
== END 2023-07-09 00:53 | disposition home or self-care (01) ==
PROVIDERS: Emergency Provider Student in an Organized Health Care Education/Training Program; PCP Nurse Practitioner
DX: F10.130 Alcohol abuse with withdrawal, uncomplicated
CPT/HCPCS: 80053; 99283; 80320; 85025

== ENCOUNTER 2023-09-03 13:57 | Emergency (ER) | payer MEDICARE, MEDICAID, SELFPAY ==
[2023-09-03] VITALS (21 sets, daily range): BP systolic 120–141; BP diastolic 67–97; PULSE 90–108; RESP 15; TEMP 36.4; O2SAT 98–100
--- NOTE | 2023-09-03 15:28 | W.ED.GENAD ---
Discharge Plan Disposition Patient Disposition: Home Discharge Details Clinical Impression: Acute dehydration, Oral thrush, Alcohol intoxication, Hypoglycemia Primary Care Provider: Georgette Reza ED Provider: Diogenes Phoenix Home Meds and New Rx's Prescriptions: New nystatin 100,000 unit/mL suspension 5 ml PO QID 7 Days Qty: 250 0RF Rx Instructions: swish for several minutes and then swallow No Action pantoprazole 40 mg tablet,delayed release (DR/EC) 40 mg PO DAILY Qty: 90 0RF Hold Instructions: Pt Stopped/Never Started ibuprofen 800 mg tablet 800 mg PO TID PRN (Reason: pain) Qty: 270 0RF melatonin 3 mg tablet 3 mg PO HS PRN norethindrone (contraceptive) 0.35 mg tablet 0.35 mg PO DAILY Qty: 84 4RF Hold Instructions: Pt Stopped/Never Started Acetaminophen [Tylenol] 650 mg PO Q4H PRN PRNQty: 0 0RF buprenorphine-naloxone [Suboxone] 8-2 mg film 2 film sublingual DAILY Patient Comments: PLACE TWO FILMS UNDER THE TONGUE EVERY DAY FOR 7 DAYS chlordiazepoxide HCl 25 mg capsule See Rx Instructions .ROUTE .COMPLEX Qty: 10 0RF Hold Instructions: Pt Stopped/Never Started Rx Instructions: chlordiazepoxide 50 mg PO q12h on d 1; 25 mg PO q8h on d 2; 25 mg PO q12h on d 3; 25 mg PO at night on d 4 Discharge Instructions Instructions: Oral Candidiasis (ED) Additional Instructions: avoid drinking to excess make sure to eat and drink food use medication to swish and swallow for oral infection Discharge Data Discharge Date/Time-TO BE ENTERED AT DEPARTURE: 09/03/23 17:51 HPI General Date/Time Provider Initiated Documentation: 09/03/23 15:26. Limitations to Documentation: no limitations. Information obtained by: patient. HPI Narrative: 42-year-old female with past medical history of alcohol abuse, IV drug abuse, bilateral lower extremity amputation presents for evaluation of dizziness.. Symptoms have been present over the last 3 weeks. She states that it is worse when she moves her head. She has been drinking 2 4 [place] every day and this reporting that her last drink was this morning. Reports that she is concern for alcohol withdrawal. She states that she has previously had hallucinations and tremor with alcohol withdrawal but denies any history of seizures. She also reports having 3 days of significantly sore throat. Worse with swallowing. No fever. Related Data Home Medications Medication Instructions Recorded Confirmed Acetaminophen [Tylenol] 650 mg PO Q4H PRN PRN ##0 07/27/21 09/03/23 buprenorphine 8 mg-naloxone 2 mg 2 film sublingual DAILY 05/10/22 09/03/23 sublingual film (Suboxone) melatonin 3 mg tablet 3 mg PO HS PRN 05/31/22 09/03/23 ibuprofen 800 mg tablet 800 mg PO TID PRN pain #270 tabs 03/28/23 09/03/23 pantoprazole 40 mg tablet,delayed 40 mg PO DAILY #90 tabs 03/28/23 09/03/23 release norethindrone (contraceptive) 0.35 0.35 mg PO DAILY #84 tabs 06/25/23 09/03/23 mg tablet chlordiazepoxide HCl 25 mg capsule See Rx Instructions .Route 07/08/23 09/03/23 .COMPLEX #10 caps nystatin 100,000 unit/mL oral 5 ml PO QID 7 days #250 mL 09/03/23 suspension Previous Rx's Medication Instructions Recorded Acetaminophen [Tylenol] 650 mg PO Q4H PRN PRN ##0 07/27/21 ibuprofen 800 mg tablet 800 mg PO TID PRN pain #270 tabs 03/28/23 pantoprazole 40 mg tablet,delayed 40 mg PO DAILY #90 tabs 03/28/23 release norethindrone (contraceptive) 0.35 0.35 mg PO DAILY #84 tabs 06/25/23 mg tablet chlordiazepoxide HCl 25 mg capsule See Rx Instructions .Route 07/08/23 .COMPLEX #10 caps nystatin 100,000 unit/mL oral 5 ml PO QID 7 days #250 mL 09/03/23 suspension Allergies Allergy/AdvReac Type Severity Reaction Status Date / Time No Known Allergies Allergy Verified 07/08/23 14:02 General Stated Complaint: Dizzy/Sync LEIF: 3 Exam Narrative Exam Narrative: Review of Systems: All systems reviewed & are unremarkable except as noted in HPI and below Well-developed, no acute distress NCAT PERRL, normal conjunctiva , no nystagmus Oropharynx is significantly erythematous, no tonsillar swelling, there are white plaque lesions coating the tongue and the soft palate RRR Unlabored respiratory effort, clear bilaterally Nondistended abdomen , nontender Extremities with bilateral amputations No rashes or lesions. no focal neurologic deficits Appropriate mood and affect Course Vital Signs Vital signs: Vital Signs Temperature 36.4 C L 09/03/23 14:00 Pulse 90 09/03/23 14:00 Respiratory Rate 15 09/03/23 14:00 Blood Pressure 133/97 H 09/03/23 14:00 Pulse Oximetry 98 09/03/23 14:00 Temperature 36.4 C L 09/03/23 14:00 Temperature Source Tympanic 09/03/23 14:00 Pulse 90 09/03/23 14:00 Respiratory Rate 15 09/03/23 15:18 Respiratory Effort Normal 09/03/23 15:18 Respiratory Depth Normal 09/03/23 15:18 Respiratory Pattern Normal 09/03/23 15:18 Blood Pressure 133/97 H 09/03/23 14:00 Blood Pressure Position Sitting 09/03/23 14:00 Pulse Oximetry 98 09/03/23 14:00 Oxygen Delivery Method Room Air 09/03/23 14:00 Oxygen Flow Rate 0 09/03/23 14:00 Medical Decision Making Emergent evaluation of dizziness. Patient is concerned for alcohol withdrawal, but her vital signs do not indicate that. She has no focal deficits concerning for a central etiology of dizziness. Suspect electrolyte derangement, volume depletion, URI, unlikely intracranial etiology. Her oropharynx seems consistent with thrush. [id number] strep testing was negative. The patient has been swabbed for throat culture to evaluate for other etiologies. Lab work all obtained. White blood cell count is normal. She does have a significantly elevated anion gap which I suspect is alcoholic ketosis as she does also have ketones in her urine. IV fluids were given, she is slightly hypoglycemic and she was able to eat food and tolerated. Her alcohol level is significantly elevated and her cocaine screen is also positive. I suspect that these are more likely to be the etiology of her symptoms. Will treat with nystatin Patient is stable for discharge home. Advised to increase oral hydration. Take the nystatin and avoid drinking alcohol to excess. Medical Records Medical records reviewed: Yes I reviewed the patient's medical records. Lab Data Lab results reviewed: Yes I reviewed the patient's lab results. Quality:SDOH Health Related Social Needs: No Data to Display PFSH All Active Problems Hypoglycemia (Acute) Alcohol intoxication (Acute) Oral thrush (Acute) Acute dehydration (Acute) Encounter for counseling regarding contraception (Acute) Possible exposure to STI (Acute) Abdominal aneurysm, ruptured (Acute) Encounter for screening examination for sexually transmitted disease (Acute) Abscess of right thigh (Acute) Leg wound, right (Acute) Anemia (Chronic) Gangrene of left foot (Acute) Retained foreign body (Acute) Vulvar cellulitis (Acute) History of herpes genitalis (Acute) Vulvar pain (Acute) Open wound of finger of right hand (Acute) Cellulitis of toe of left foot (Acute) Abnormal finding on imaging (Acute) Abnormal MRI (Acute) Dysuria (Acute) 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 [facility] in [place] for [facility] of termination History of intravenous drug abuse (Acute) Cellulitis of left lower extremity (Acute) Poor intravenous access (Acute) Chronic infection as complication of amputation (Acute) Heart murmur (Acute) Hypotension (Chronic) Petechial rash (Acute) Acute on chronic anemia (Acute) Osteomyelitis of right lower extremity (Chronic) DVT, lower extremity, distal, acute (Acute) 10/24 2018 left lower extremity. Rx with Eliquis. Abnormal uterine bleeding (AUB) (Acute) On. Set 10/24/2018 heavy flow coinciding with initiation of Eliquis Normocytic hypochromic anemia (Acute) 10/26/2018 hemoglobin 8.2 MCV 83 Medical History Tenosynovitis of finger Leg wound, right Cellulitis of finger of right hand Endometriosis Raynaud disease Hx of hepatitis C AB +. No viral load. Hx of opioid abuse Currently in treatment at [facility]. Suboxone. Surgical History History of transesophageal echocardiography (YG) negative Retained foreign body L groin, s/p unsuccessful exploratory surgery H/O hand surgery contracted post-op Complete below knee amputation of right lower extremity 2018. 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 [facility]. 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 Family History Father Diabetes Paternal Grandfather Diabetes Paternal Aunt Diabetes Maternal Grandmother Breast cancer Maternal Aunt Multiple sclerosis Social History Smoking/Tobacco Use Status: Never Smoking risk assessment performed?: Yes Alcohol Intake: current Alcohol Intake frequency: 3 or more drinks per day Alcohol type: beer and hard liquor Drug use: Rarely Substance use type: former substance user, crack/cocaine, heroin and methamphetamine Details: former cocaine (snorted, smoked, IV) and heroin use (IV), as well as crystal meth (IV). Patient is currently enrolled at [facility], on suboxone Household members: children and other Details: Patient resides at her sister's house with her daughter Housing: apartment Number of Children: 1 current occupation: Unemployed Sexually active: Yes Do you think of yourself as: straight/heterosexual Current gender identity: female Seatbelt use: always Do you feel safe at home: Yes (new restraining order on ) Do you feel safe in your relationship?: No Additional Social history: Ambulates with crutches - 2 falls recently PAWSS Have you Been Recently Intoxicated or Drunk Within the Last 30 days?: No Have you Ever Experienced Previous Episodes of Alcohol Withdrawal?: No Have you ever Experienced Withdrawal Seizures?: No Have you ever Experienced Delirium Tremens(DT)s?: No Have you ever undergone Alcohol Rehabilitation Treatment (i.e, inpt ot outpatient treatment programs)?: No Have you ever Experienced Blackouts?: No Have you ever Combined Alcohol with other Downers within the last 90 days?: No Have you ever Combined Alcohol with any other Substance of Abuse during the last 90 days?: No Positive Blood Alcohol level on Presentation? [PCS.BAL]: No Evidence of Increased Autonomic Activity (i.e. HR>120, tremor, sweating, agitation, nausea)?: No Result: 0
[2023-09-03 15:57] LABS: Abs Immature Grans 0.07 10^3/uL (0.0-0.06); Absolute Basophil Count 0.05 10^3/uL (0.0-0.2); Absolute Eosinophil Count 0.03 10^3/uL (0.0-0.7); Absolute Lymphocyte Count 1.02 10^3/uL (1.2-3.4); Absolute Monocyte Count 0.34 10^3/uL (0.1-0.8); Absolute Neutrophil Count 8.61 10^3/uL (1.2-6.7); Basophils % 0.5 %; Eosinophils % 0.3 %; HCT 41.3 % (36.0-46.0); HGB 13.6 g/dL (11.2-15.7); Immature Grans % 0.7 %; Lymphocytes % 10.1 %; MCHC 32.9 % (32.0-36.0); MCV 94 fL (80-95); Monocytes % 3.4 %; RBC 4.39 10^6/uL (3.93-5.22); RDW 12.7 % (11.7-14.6); RDW-SD 44.5 fL; WBC 10.12 10^3/uL (4.4-10.8)
[2023-09-03] MEDS: Ondansetron 4 MG/2 ML VIAL IVP (15:57)
[2023-09-03] MEDS: diazePAM 5 MG TAB PO (15:57)
[2023-09-03] MEDS: Normal Saline 1,000 ML 1000 ML IV ×2 (15:58→16:30)
[2023-09-03 16:15] LABS: Diff Comment PLT Morph Reviewed; RBC Morphology Normal
[2023-09-03 16:19] LABS: ALT 22 U/L (14-59); AST 63 U/L (15-37); Alkaline Phosphatase 116 U/L (46-116); Anion Gap 18.5 mmol/L (3-11); BUN 16 mg/dL (7-18); Bilirubin, Total 0.9 mg/dL (0.2-1.0); CO2 23.5 mmol/L (21.0-32.0); CREATININE 0.6 mg/dL (0.55-1.02); Calcium 8.9 mg/dL (8.5-10.1); Chloride 97 mmol/L (98-107); Glucose 66 mg/dL (74-106); Magnesium 1.7 mg/dL (1.8-2.4); Potassium 3.8 mmol/L (3.5-5.1); Sodium 139 mmol/L (136-145); Total Protein 8.7 g/dL (6.4-8.2)
[2023-09-03 16:28] LABS: ETHANOL BLOOD 248.8 mg/dL (<10)
[2023-09-03 17:24] LABS: Bilirubin Negative (Negative); Blood Moderate (Negative); Clarity Clear (Clear); Glucose Negative (Negative); Ketones 40 mg/dL (Negative); Leukocyte Esterase Negative (Negative); Nitrite Negative (Negative); Specific Gravity >= 1.030 (1.005-1.025); pH 6.5 (5-8)
[2023-09-03 17:28] LABS: Bacteria Few HPF (Negative); C & S Indicated? No; Casts Negative LPF (Negative); Crystals Rare Amorphous HPF (Negative); Epithelial Cells Few HPF (Negative); Mucus Trace (Negative); Other Cells Rare Transitional (Negative); WBC 0-2 HPF (0-5)
[2023-09-03 17:35] LABS: *AMPHETAMINES SCREEN URINE Negative (Negative); *BARBITURATES SCREEN URINE Negative (Negative); *BENZODIAZEPINES SCREEN URINE Negative (Negative); Cannabinoids THC Negative (Negative); Cocaine Screen,Urine Positive (Negative); METHADONE URINE SCREEN Negative (Negative); OPIATES URINE SCREEN Negative (Negative)
[2023-09-03 17:36] LABS: Tricyclic Antidepressants Negative (Negative)
[2023-09-03] MEDS: Ondansetron O.D.T. 4 MG TABEF, 3 TABS/BTL PO (17:48)
== END 2023-09-03 17:51 | disposition home or self-care (01) ==
PROVIDERS: Emergency Provider Emergency Medicine; PCP Nurse Practitioner
DX: R42 Dizziness and giddiness (principal); F14.129 Cocaine abuse with intoxication, unspecified; F10.10 Alcohol abuse, uncomplicated; R07.0 Pain in throat; E16.2 Hypoglycemia, unspecified; E86.0 Dehydration; Z89.511 Acquired absence of right leg below knee; Z89.512 Acquired absence of left leg below knee; R03.0 Elevated blood-pressure reading, without diagnosis of hypertension; Z92.29 Personal history of other drug therapy; Z86.19 Personal history of other infectious and parasitic diseases
CPT/HCPCS: 80053; 80307; 87880; 96361; 96374; 96376; 99284; 80320; 81003; 81015; 83735; 85025; 87070; 87081; 99283; J2405

== ENCOUNTER 2023-09-04 04:47 | Emergency (ER) | payer MEDICARE, MEDICAID, SELFPAY ==
[2023-09-04] VITALS (19 sets, daily range): BP systolic 151–181; BP diastolic 99–114; PULSE 86–107; RESP 9–36; TEMP 37.1; O2SAT 92–100
--- NOTE | 2023-09-04 05:26 | ED.GENADUL_ITS ---
Discharge Plan Discharge Details Chief Complaint: ETOHWithdr Primary Care Provider: Georgette Reza ED Provider: Merrick Patel Home Meds and New Rx's Prescriptions: No Action pantoprazole 40 mg tablet,delayed release (DR/EC) 40 mg PO DAILY Qty: 90 0RF Hold Instructions: Pt Stopped/Never Started ibuprofen 800 mg tablet 800 mg PO TID PRN (Reason: pain) Qty: 270 0RF norethindrone (contraceptive) 0.35 mg tablet 0.35 mg PO DAILY Qty: 84 4RF Hold Instructions: Pt Stopped/Never Started buprenorphine-naloxone [Suboxone] 8-2 mg film 2 film sublingual DAILY Patient Comments: PLACE TWO FILMS UNDER THE TONGUE EVERY DAY FOR 7 DAYS Pt reports 16 milligrams nystatin 100,000 unit/mL suspension 5 ml PO QID 7 Days Qty: 250 0RF Rx Instructions: swish for several minutes and then swallow HPI General Date/Time Provider Initiated Documentation: 09/04/23 05:01 . HPI Narrative: The patient is a 42-year-old female, with a past medical history significant for opioid misuse disorder on Suboxone, alcohol misuse disorder currently drinking 3-4 24 ounce cans of high ABV malt liquor, vascular disease with multiple amputations including bilateral lower extremities and fingers, who presents to the emergency department this morning for her second visit in 24 hours complaining of tachycardia, nausea with vomiting, and hallucinations in her apartment this evening. The patient was seen on the evening shift last night was given a oral Valium tablet that she had minimal alcohol withdrawal symptoms at that time. She reports that the medication helps for about 2 hours, and then she tells me that her symptoms returned. On arrival to the emergency room the patient is anxious, dry heaving, and is tachycardic. She does not currently have a development coach and is not currently being seen for alcohol misuse withdrawal. The patient is known to [facility]. Related Data Home Medications Medication Instructions Recorded Confirmed buprenorphine 8 mg-naloxone 2 mg 2 film sublingual DAILY 05/10/22 09/04/23 sublingual film (Suboxone) ibuprofen 800 mg tablet 800 mg PO TID PRN pain #270 tabs 03/28/23 09/04/23 pantoprazole 40 mg tablet,delayed 40 mg PO DAILY #90 tabs 11/29/23 05/07/24 release norethindrone (contraceptive) 0.35 0.35 mg PO DAILY #84 tabs 06/25/23 09/04/23 mg tablet nystatin 100,000 unit/mL oral 5 ml PO QID 7 days #250 mL 09/03/23 09/04/23 suspension Previous Rx's Medication Instructions Recorded ibuprofen 800 mg tablet 800 mg PO TID PRN pain #270 tabs 03/28/23 pantoprazole 40 mg tablet,delayed 40 mg PO DAILY #90 tabs 03/28/23 release norethindrone (contraceptive) 0.35 0.35 mg PO DAILY #84 tabs 06/25/23 mg tablet nystatin 100,000 unit/mL oral 5 ml PO QID 7 days #250 mL 09/03/23 suspension Allergies Allergy/AdvReac Type Severity Reaction Status Date / Time No Known Allergies Allergy Verified 09/04/23 05:09 General Stated Complaint: ETOHWithdr LEIF: 3 Exam Const General: cooperative, anxious, diaphoretic and disheveled Limitations: physical limitations Resp Effort & Inspection: normal respiratory effort and able to speak in complete sentences Auscultation: clear to auscultation bilaterally Cardio Jugular venous pressure: no JVD Rate: tachycardic Rhythm: regular rhythm Heart Sounds: S1 normal and S2 normal GI Palpation: soft and nontender Auscultation: normal bowel sounds Skin Other: There is distal extremity nonpitting edema in the bilateral upper extremities with some erythematous changes and drying skin on the hands, consistent with intermittent environmental exposures Neuro General: patient oriented x3, moves all extremities, normal light touch, pain and propioception, no focal motor deficits and CN's II-XI intact bilaterally Extrem Other: Bilateral lower extremity amputations, multiple finger amputations. Distal pulses in the bilateral upper extremities are normal Psych Appearance: disheveled Speech and Movement: agitated and restless Mood: anxious mood Thought Content: hallucinations Course Vital Signs Vital signs: Vital Signs Temperature 37.1 C 09/04/23 04:50 Pulse 106 H 09/04/23 04:50 Respiratory Rate 22 09/04/23 04:50 Blood Pressure 156/108 H 09/04/23 04:50 Pulse Oximetry 99 09/04/23 04:50 Temperature 37.1 C 09/04/23 04:50 Temperature Source Temporal Artery Scan 09/04/23 04:50 Pulse 106 H 09/04/23 04:50 Respiratory Rate 22 09/04/23 04:50 Respiratory Effort Normal 09/04/23 04:56 Respiratory Depth Normal 09/04/23 04:56 Respiratory Pattern Normal 09/04/23 05:03 Blood Pressure 156/108 H 09/04/23 04:50 Blood Pressure Position Sitting 09/04/23 04:50 Pulse Oximetry 99 09/04/23 04:50 Oxygen Delivery Method Room Air 09/04/23 04:50 Oxygen Flow Rate 0 09/04/23 04:50 Pain Level 0 09/04/23 04:50 Medical Decision Making The patient was seen and examined. She has a relatively high CIWA scale but some of this is based on her subjective reporting of anxiety and hallucinations. The patient is tachycardic here in the emergency room and does appear to have some autonomic hyperactivity and psychomotor agitation. The patient tells me that she has not been eating regularly for several weeks. The patient had labs appropriate for alcohol withdrawal signs and will be treated with 6 mg/kg phenobarbital and a banana bag as initial therapy. Depending on response to treatment here in the emergency room, the patient may be able to be referred for outpatient management through [facility] and developing a plan with a development coach and some longer acting benzodiazepines. If symptoms do not stabilize, the patient may require admission to the hospital for ongoing management of her alcohol withdrawal syndrome. Quality:SDOH Health Related Social Needs: No Data to Display PFSH All Active Problems Hypoglycemia (Acute) Alcohol intoxication (Acute) Oral thrush (Acute) Acute dehydration (Acute) Encounter for counseling regarding contraception (Acute) Possible exposure to STI (Acute) Abdominal aneurysm, ruptured (Acute) Encounter for screening examination for sexually transmitted disease (Acute) Abscess of right thigh (Acute) Leg wound, right (Acute) Anemia (Chronic) Gangrene of left foot (Acute) Retained foreign body (Acute) Vulvar cellulitis (Acute) History of herpes genitalis (Acute) Vulvar pain (Acute) Open wound of finger of right hand (Acute) Cellulitis of toe of left foot (Acute) Abnormal finding on imaging (Acute) Abnormal MRI (Acute) Dysuria (Acute) 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 [facility] [place] [facility] of [facility] History of intravenous drug abuse (Acute) Cellulitis of left lower extremity (Acute) Poor intravenous access (Acute) Chronic infection as complication of amputation (Acute) Heart murmur (Acute) Hypotension (Chronic) Petechial rash (Acute) Acute on chronic anemia (Acute) Osteomyelitis of right lower extremity (Chronic) DVT, lower extremity, distal, acute (Acute) 10/24 2018 left lower extremity. Rx with Eliquis. Abnormal uterine bleeding (AUB) (Acute) On. Set 10/24/2018 heavy flow coinciding with initiation of Eliquis Normocytic hypochromic anemia (Acute) 10/26/2018 hemoglobin 8.2 MCV 83 Medical History Tenosynovitis of finger Leg wound, right Cellulitis of finger of right hand Endometriosis Raynaud disease Hx of hepatitis C AB +. No viral load. Hx of opioid abuse Currently in treatment at [facility]. Suboxone. Surgical History History of transesophageal echocardiography (YG) negative Retained foreign body L groin, s/p unsuccessful exploratory surgery H/O hand surgery contracted post-op Complete below knee amputation of right lower extremity 2018. 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 [facility]. 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 Family History Father Diabetes Paternal Grandfather Diabetes Paternal Aunt Diabetes Maternal Grandmother Breast cancer Maternal Aunt Multiple sclerosis Social History Smoking/Tobacco Use Status: Never Smoking risk assessment performed?: Yes Alcohol Intake: current Alcohol Intake frequency: 3 or more drinks per day Alcohol type: beer and hard liquor Drug use: Current Sobriety Substance use type: former substance user, crack/cocaine, heroin and methamphetamine Details: former cocaine (snorted, smoked, IV) and heroin use (IV), as well as crystal meth (IV). Patient is currently enrolled at [facility], on suboxone Household members: children and other Details: Patient resides at her sister's house with her daughter Housing: apartment Number of Children: 1 current occupation: Unemployed Sexually active: Yes Do you think of yourself as: straight/heterosexual Current gender identity: female Seatbelt use: always Do you feel safe at home: Yes (new restraining order on ) Do you feel safe in your relationship?: No Additional Social history: Ambulates with crutches - 2 falls recently PAWSS Have you Been Recently Intoxicated or Drunk Within the Last 30 days?: Yes Have you Ever Experienced Previous Episodes of Alcohol Withdrawal?: Yes Have you ever Experienced Withdrawal Seizures?: No Have you ever Experienced Delirium Tremens(DT)s?: Yes Have you ever undergone Alcohol Rehabilitation Treatment (i.e, inpt ot outpatient treatment programs)?: No Have you ever Experienced Blackouts?: Yes Have you ever Combined Alcohol with other Downers within the last 90 days?: No Have you ever Combined Alcohol with any other Substance of Abuse during the last 90 days?: No Positive Blood Alcohol level on Presentation? [PCS.BAL]: Unable to Obtain Evidence of Increased Autonomic Activity (i.e. HR>120, tremor, sweating, agitation, nausea)?: Yes Result: 5
[2023-09-04 06:35] LABS: Abs Immature Grans 0.02 10^3/uL (0.0-0.06); Absolute Basophil Count 0.02 10^3/uL (0.0-0.2); Absolute Eosinophil Count 0.04 10^3/uL (0.0-0.7); Absolute Lymphocyte Count 0.65 10^3/uL (1.2-3.4); Absolute Monocyte Count 0.31 10^3/uL (0.1-0.8); Absolute Neutrophil Count 5.46 10^3/uL (1.2-6.7); Basophils % 0.3 %; Eosinophils % 0.6 %; HCT 35.5 % (36.0-46.0); HGB 11.9 g/dL (11.2-15.7); Immature Grans % 0.3 %; MCH 31.2 pg (27.0-33.0); MCHC 33.5 % (32.0-36.0); MCV 93 fL (80-95); Monocytes % 4.8 %; RBC 3.81 10^6/uL (3.93-5.22); RDW-SD 44.3 fL
[2023-09-04] MEDS: MAGNESIUM SULFATE 8.12 MEQ, MULTIVITAMIN 10 ML, THIAMINE 100 MG, FOLIC ACID 1 MG in Nor... 168.867 MG IV (06:51)
[2023-09-04 07:08] LABS: Diff Comment Diff Reviewed; Platelet Count 45 10^3/uL (130-400); RBC Morphology Normal
[2023-09-04 07:17] LABS: Acetaminophen < 2 ug/mL (10-30); Salicylate < 2.8 mg/dL (<2.8)
[2023-09-04 07:55] LABS: ALT 25 U/L (14-59); AST 60 U/L (15-37); Albumin 3.6 g/dL (3.4-5.0); Alkaline Phosphatase 101 U/L (46-116); Anion Gap 9.1 mmol/L (3-11); BUN 19 mg/dL (7-18); Bilirubin, Total 1.3 mg/dL (0.2-1.0); CO2 27.9 mmol/L (21.0-32.0); CREATININE 0.7 mg/dL (0.55-1.02); Calcium 8.6 mg/dL (8.5-10.1); Chloride 103 mmol/L (98-107); Estimated GFR 112.05 (mL/min/1.73m2); Glucose 112 mg/dL (74-106); Lipase 38 U/L (16-77); Magnesium 1.6 mg/dL (1.8-2.4); Potassium 3.7 mmol/L (3.5-5.1); Sodium 140 mmol/L (136-145); Total Protein 7.6 g/dL (6.4-8.2); Troponin I < 50 ng/L (< or =60)
[2023-09-04 07:56] LABS: ETHANOL BLOOD < 3.0 mg/dL (<10)
[2023-09-04 07:59] LABS: HCG Qual (Serum) Negative
--- NOTE | 2023-09-04 09:11 | W.EDPROG ---
Date of service: 09/04/23 Time of Service: 09:11 Medical Decision Making Resting comfortably no acute distress. Alert oriented interactive. Calm cooperative. No tremors no fasciculations no hallucinations. Heart rate greatly improved. Encouraged inpatient treatment given CIWA score on arrival as well as treatment with phenobarbital. Patient is unable to coordinate childcare at home and cannot stay in the hospital. Patient would like to try Librium taper as an outpatient. Given strict return precautions for any worsening symptoms. Quality:SDOH Health Related Social Needs: No Data to Display Sign Out Sign Out Data: Sign Out Comment: Patient returns after being seen yesterday in the evening, with complaints of alcohol withdrawal. Patient was tachycardic, nauseated, with psychomotor agitation and some auditory hallucinations when she arrived in the emergency room. The patient was given 6 mg/kg of IV phenobarbital and has an IV banana bag ordered. She may be able to be discharged home with a benzodiazepine taper, and may require admission for alcohol withdrawal depending on the arc of her ER observation. Last updated by Merrick Patel MD at 09/04/23 06:56 Discharge Plan Disposition Patient Disposition: Home Condition: Improving Discharge Details Clinical Impression: Alcohol withdrawal syndrome Primary Care Provider: Georgette Reza ED Provider: Kraig Armando Home Meds and New Rx's Prescriptions: New chlordiazepoxide HCl 25 mg capsule 25 mg PO ONCE Qty: 21 0RF Rx Instructions: day 1: 50 mg (two tabs) q6hr; day2: 50 mg q8hrs; day 3: 50mg q12hr; day 4: 25mg q12hr; day 5: 25mg once No Action pantoprazole 40 mg tablet,delayed release (DR/EC) 40 mg PO DAILY Qty: 90 0RF Hold Instructions: Pt Stopped/Never Started ibuprofen 800 mg tablet 800 mg PO TID PRN (Reason: pain) Qty: 270 0RF norethindrone (contraceptive) 0.35 mg tablet 0.35 mg PO DAILY Qty: 84 4RF Hold Instructions: Pt Stopped/Never Started buprenorphine-naloxone [Suboxone] 8-2 mg film 2 film sublingual DAILY Patient Comments: PLACE TWO FILMS UNDER THE TONGUE EVERY DAY FOR 7 DAYS Pt reports 16 milligrams nystatin 100,000 unit/mL suspension 5 ml PO QID 7 Days Qty: 250 0RF Rx Instructions: swish for several minutes and then swallow Discharge Instructions Instructions: Alcohol Withdrawal (ED) Additional Instructions: Please return to the emergency department for any worsening symptoms.
== END 2023-09-04 09:48 | disposition home or self-care (01) ==
PROVIDERS: Emergency Medicine Emergency Medical Services; Emergency Provider Emergency Medicine; PCP Nurse Practitioner
DX: F10.939 Alcohol use, unspecified with withdrawal, unspecified (principal); I10 Essential (primary) hypertension; Z89.511 Acquired absence of right leg below knee; Z89.512 Acquired absence of left leg below knee; F19.11 Other psychoactive substance abuse, in remission
CPT/HCPCS: 00123; 36415; 80053; 80307; 83690; 96365; 99284; 80320; 80329; 83735; 84484; 84703; 85025; 99283; J2560; J3411; J3475

== ENCOUNTER 2023-11-09 06:21 | Inpatient (IN) | payer MEDICARE, MEDICAID, SELFPAY ==
[2023-11-09] VITALS (70 sets, daily range): BP systolic 96–191; BP diastolic 56–138; PULSE 83–159; RESP 8–31; TEMP 36.1–37.4; O2SAT 95–123
--- NOTE | 2023-11-09 06:15 | RT.EKG_ITS ---
APPROVED REPORT Exam: Resting ECG Reason for Exam: ETOH WITHDRAW Patient Location: E HR:91 bpm ECG Measurements Heart Rate 91 AXIS NM 142 P 9 QRSd 98 QRS -16 QT 388 T 28 QTc 478 Conclusion Sinus rhythm...normal P axis, V-rate 60- 99 appropriate intervals otherwise limited interp 2/t artifact
--- NOTE | 2023-11-09 06:26 | W.ED.GENAD ---
Discharge Plan Discharge Details Chief Complaint: ETOHWithdr Primary Care Provider: Georgette Reza ED Provider: Joanne Arreguin Home Meds and New Rx's Prescriptions: No Action pantoprazole 40 mg tablet,delayed release (DR/EC) 40 mg PO DAILY Qty: 90 3RF (DME) Prosthetic for left BKA See Rx Instructions .Route .MEDSUPPLY Qty: 1 0RF Rx Instructions: Please fit for and dispense prosthetic leg for left BKA. gabapentin 300 mg capsule 300 mg PO TID Qty: 90 2RF nifedipine 30 mg tablet extended release 30 mg PO DAILY Qty: 90 1RF ibuprofen 800 mg tablet 800 mg PO TID PRN (Reason: pain) Qty: 270 0RF buprenorphine-naloxone [Suboxone] 8-2 mg film 2 film sublingual DAILY Patient Comments: PLACE TWO FILMS UNDER THE TONGUE EVERY DAY FOR 7 DAYS Pt reports 16 milligrams HPI General Mode of arrival: EMS. Date/Time Provider Initiated Documentation: 11/09/23 06:25. Limitations to Documentation: no limitations. Information obtained by: patient and EMS. HPI Narrative: 42yo F with hx polysubstance use, bl BKA 2/t aneurysem rupture, ETOH abuse and hx ETOH withdrawal, presenting via EMS with concern for ETOH withdrawal symptoms. Last drink yesterday; typically drinks 2-4 16oz cans with ~13% ABV. Trying to stop drinking. This morning having withdrawal symptoms; headache, tremors, anxiety, sweating, hallucinations. History of with ETOH withdrawal requiring medication in the past; no history of ICU admission, seizures, or DT's. Symptoms today feel like prior withdrawal episodes. Otherwise in her usual state of health. No fevers, chills, rash, vomiting, abdominal pain, chest pain, shortness of breath, or other concerns. Related Data Home Medications ?Medication ?Instructions ?Recorded ?Confirmed buprenorphine 8 mg-naloxone 2 mg 2 film sublingual DAILY 05/10/22 11/09/23 sublingual film (Suboxone) ibuprofen 800 mg tablet 800 mg PO TID PRN pain #270 tabs 03/28/23 11/09/23 Prosthetic for left BKA #1 ea 10/23/23 10/23/23 gabapentin 300 mg capsule 300 mg PO TID #90 caps 10/23/23 11/09/23 nifedipine 30 mg tablet,extended 30 mg PO DAILY #90 tabs 10/23/23 11/09/23 release pantoprazole 40 mg tablet,delayed 40 mg PO DAILY #90 tabs 10/23/23 11/09/23 release Previous Rx's ?Medication ?Instructions ?Recorded ibuprofen 800 mg tablet 800 mg PO TID PRN pain #270 tabs 03/28/23 Prosthetic for left BKA #1 ea 10/23/23 gabapentin 300 mg capsule 300 mg PO TID #90 caps 10/23/23 nifedipine 30 mg tablet,extended 30 mg PO DAILY #90 tabs 10/23/23 release pantoprazole 40 mg tablet,delayed 40 mg PO DAILY #90 tabs 10/23/23 release Allergies Allergy/AdvReac Type Severity Reaction Status Date / Time No Known Allergies Allergy Verified 11/09/23 06:26 General LEIF: 3 Review of Systems Narrative: see HPI Exam Narrative Exam Narrative: General: Alert, anxious appearing. Diaphoretic. Head: Normocephalic, atraumatic Neck: Trachea midline, ?Neck supple. ENT: ?MMM.? Cardiac: ?RRR, no murmurs appreciated Resp: No respiratory distress. CTAB. Abd: ?Soft, non-distended, nontender : ?No suprapubic tenderness. Extremities: ?Bilatral BKA amputations. No peripheral edema. Neuro: ? GCS 15.? PERRL.? EOMI.? Fluent speech, no dysarthria. Motor- 5/5 strength symmetric bilateral upper and lower extremities Sensation- ?Intact to light touch and symmetric multiple dermatomes including upper and lower extremities Coordination- No dysmetria on finger to nose. Tremors. Medical Decision Making 42yo F with hx polysubstance use, bl BKA 2/t aneurysem rupture, ETOH abuse and hx ETOH withdrawal, presenting via EMS with concern for ETOH withdrawal symptoms. Last drink yesterday; typically drinks 2-4 16oz cans with ~13% ABV. Trying to stop drinking. History of with ETOH withdrawal requiring medication in the past; no history of ICU admission, seizures, or DT's. Vital signs reassuring on arrival. Anxious, slightly diaphoretic, and mild tremors on exam. Consistent with ETOH withdrawal. Denies any recent illness, chest pain, shortness of breath, or focal neurologic symptoms; would not workup for ACS, sepsis, or CVA. EKG SR, appropriate intervals; baseline artifact limits further interpretation. Plan for labs, CIWA; anticipate administering medication for ETOH withdrawal on either inpatient or outpatient basis pending clinical course. Initial CIWA 24. Will start phenobarb protocol. Signed out to oncoming physician, plan as above. Quality:SDOH Health Related Social Needs: No Data to Display PFSH All Active Problems (Updated 10/05/23 @ 00:06 by PHILIPPE HODGES) Encounter for counseling regarding contraception (Acute) Possible exposure to STI (Acute) Abdominal aneurysm, ruptured (Acute) Encounter for screening examination for sexually transmitted disease (Acute) Abscess of right thigh (Acute) Leg wound, right (Acute) Anemia (Chronic) Gangrene of left foot (Acute) Retained foreign body (Acute) Vulvar cellulitis (Acute) History of herpes genitalis (Acute) Vulvar pain (Acute) Open wound of finger of right hand (Acute) Cellulitis of toe of left foot (Acute) Abnormal finding on imaging (Acute) Abnormal MRI (Acute) Dysuria (Acute) 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 Patient has appointment at [facility] in [place] for consideration of termination History of intravenous drug abuse (Acute) Cellulitis of left lower extremity (Acute) Poor intravenous access (Acute) Chronic infection as complication of amputation (Acute) Heart murmur (Acute) Hypotension (Chronic) Petechial rash (Acute) Acute on chronic anemia (Acute) Osteomyelitis of right lower extremity (Chronic) DVT, lower extremity, distal, acute (Acute) 10/24 2018 left lower extremity. Rx with Eliquis. Abnormal uterine bleeding (AUB) (Acute) On. Set 10/24/2018 heavy flow coinciding with initiation of Eliquis Normocytic hypochromic anemia (Acute) 10/26/2018 hemoglobin 8.2 MCV 83 Medical History Tenosynovitis of finger Leg wound, right Cellulitis of finger of right hand Endometriosis Raynaud disease Hx of hepatitis C AB +. No viral load. Hx of opioid abuse Currently in treatment at [facility]. Suboxone. Surgical History History of transesophageal echocardiography (YG) negative Retained foreign body L groin, s/p unsuccessful exploratory surgery H/O hand surgery contracted post-op Complete below knee amputation of right lower extremity 2018. 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 [facility]. 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 Family History Father Diabetes Paternal Grandfather Diabetes Paternal Aunt Diabetes Maternal Grandmother Breast cancer Maternal Aunt Multiple sclerosis Social History Smoking/Tobacco Use Status: Never Smoking risk assessment performed?: Yes Alcohol Intake: current Alcohol Intake frequency: 3 or more drinks per day Alcohol type: beer and hard liquor Drug use: Current Sobriety Substance use type: former substance user, crack/cocaine, heroin and methamphetamine Details: former cocaine (snorted, smoked, IV) and heroin use (IV), as well as crystal meth (IV). Patient is currently enrolled at [facility], on suboxone Household members: children and other Details: Patient resides at her sister's house with her daughter Housing: apartment Number of Children: 1 current occupation: Unemployed Sexually active: Yes Do you think of yourself as: straight/heterosexual Current gender identity: female Seatbelt use: always Do you feel safe at home: Yes (new restraining order on ) Do you feel safe in your relationship?: No Additional Social history: Ambulates with crutches - 2 falls recently
[2023-11-09] MEDS: Folic Acid 1 MG TAB PO (06:38)
[2023-11-09] MEDS: Multivitamin TAB 1 TAB PO (07:34)
[2023-11-09] MEDS: Thiamine 100 MG TAB PO (07:34)
[2023-11-09 07:37] LABS: HCT 34.1 % (36.0-46.0); HGB 11.7 g/dL (11.2-15.7); MCH 32.6 pg (27.0-33.0); MCHC 34.3 % (32.0-36.0); MCV 95 fL (80-95); RBC 3.59 10^6/uL (3.93-5.22); RDW 15.9 % (11.7-14.6); RDW-SD 54.7 fL; WBC 3.15 10^3/uL (4.4-10.8)
[2023-11-09 07:41] LABS: Lactate 5.2 mmol/L (0.6-1.4)
[2023-11-09 08:01] LABS: Bilirubin Negative (Negative); Blood Trace-intact (Negative); Clarity Clear (Clear); Glucose Negative (Negative); Ketones Negative (Negative); Leukocyte Esterase Negative (Negative); Nitrite Negative (Negative)
[2023-11-09 08:02] LABS: ALT 48 U/L (14-59); AST 150 U/L (15-37); Albumin 3.6 g/dL (3.4-5.0); Alkaline Phosphatase 102 U/L (46-116); Anion Gap 13.5 mmol/L (3-11); BUN 11 mg/dL (7-18); Bilirubin, Total 0.57 mg/dL (0.2-1.0); CO2 27.5 mmol/L (21.0-32.0); CREATININE 0.7 mg/dL (0.55-1.02); Calcium 8.7 mg/dL (8.5-10.1); Chloride 98 mmol/L (98-107); ETHANOL BLOOD 87.2 mg/dL (<10); Estimated GFR 112.05 (mL/min/1.73m2); Glucose 96 mg/dL (74-106); Magnesium 1.4 mg/dL (1.8-2.4); PHOSPHORUS 3.8 mg/dL (2.6-4.7); Potassium 3.3 mmol/L (3.5-5.1); Sodium 139 mmol/L (136-145); Total Protein 8.3 g/dL (6.4-8.2)
[2023-11-09 08:18] LABS: C & S Indicated? No/Sq. Contamination; Casts 0-2 Hyaline LPF (Negative); Crystals Moderate Amorphous HPF (Negative); Epithelial Cells Moderate HPF (Negative); Mucus Moderate (Negative)
[2023-11-09] MEDS: Ondansetron O.D.T. 4 MG TABEF (08:33)
[2023-11-09 08:34] LABS: HCG Quant, Pregnancy < 1 mIU/mL (1-3)
--- NOTE | 2023-11-09 09:08 | ED.PROG_ITS ---
Date of service: 11/09/23 Time of Service: 09:08 Medical Decision Making -- Care was signed out by Dr. Arreguin, please see her documentation regarding initial ED presentation and course. Labs reviewed and hypomagnesemia noted. Patient to receive magnesium 1 g IV. Patient is agreeable to hospitalization. Patient to be treated with phenobarbital for alcohol withdrawal. I spoke with Dr. Collier, on-call hospitalist, discussed ED presentation course, he will admit the patient to the ICU. 955 --notified by nursing that IV left upper extremity infiltrated. Prior IV right upper extremity infiltrated. I am concerned that the left upper extremity IV infiltrated during phenobarbital infusion. Patient continues to have significant withdrawal symptoms and is tremulous and nauseous. I spoke with the pharmacy who notes minuscule amount of medication and no indication for hyaluronic acid. I examined both upper extremities with ultrasound to see if I could identify another vein for access and unfortunately patient has no amenable sites. I considered external jugular access and patient is unable to lie flat due to dizziness and general discomfort. Patient provided informed refusal of attempted access in her groins due to bilateral femoral artery aneurysm ruptures in the past. Plan to treat with Ativan 2 mg IM at this time and then reassess neck for access. -- I spoke with Dr. Collier to provide update. He recommends oral phenobarb be administered. -- Patient was reassessed and agreeable to EJ, verbal consent obtained. Left EJ placed without complication. Care transitioned to hospitalist service. Lab Data Lab results reviewed: Yes I reviewed the patient's lab results. Labs: Laboratory Tests Range/Units 11/09/23 11/09/23 07:24 07:49 WBC (4.4-10.8) 10^3/uL 3.15 L RBC (3.93-5.22) 10^6/uL 3.59 L Hgb (11.2-15.7) g/dL 11.7 Hct (36.0-46.0) % 34.1 L MCV (80-95) fL 95 MCH (27.0-33.0) pg 32.6 MCHC (32.0-36.0) % 34.3 RDW (11.7-14.6) % 15.9 H Plt Count (130-400) 10^3/uL MPV (8.0-11.0) fL VBG Lactate (0.6-1.4) mmol/L 5.2 H* Sodium (136-145) mmol/L 139 Potassium (3.5-5.1) mmol/L 3.3 L Chloride (98-107) mmol/L 98 Carbon Dioxide (21.0-32.0) mmol/L 27.5 Anion Gap (3-11) mmol/L 13.5 H BUN (7-18) mg/dL 11 Creatinine (0.55-1.02) mg/dL 0.7 Est GFR (CKD-EPI 2020) (mL/min/1.73m2) 112.05 Glucose (74-106) mg/dL 96 Calcium (8.5-10.1) mg/dL 8.7 Phosphorus (2.6-4.7) mg/dL 3.8 Magnesium (1.8-2.4) mg/dL 1.4 L Total Bilirubin (0.2-1.0) mg/dL 0.57 AST (15-37) U/L 150 H ALT (14-59) U/L 48 Alkaline Phosphatase (46-116) U/L 102 Total Protein (6.4-8.2) g/dL 8.3 H Albumin (3.4-5.0) g/dL 3.6 Beta HCG, Quant (1-3) mIU/mL < 1 L Urine Color (Yellow) Yellow Urine Clarity (Clear) Clear Urine pH (5-8) 8.0 Ur Specific [place] (1.005-1.025) 1.020 Urine Protein (Neg-Trace) mg/dL >=300 H Urine Ketones (Negative) mg/dL Negative Urine Blood (Negative) Trace-intact H Urine Nitrite (Negative) Negative Urine Bilirubin (Negative) Negative Urine Urobilinogen (Up to 0.2) mg/dL 2.0 H Ur Leukocyte Esterase (Negative) Negative Urine RBC Not Applicable Urine WBC (0-5) HPF 3-5 Ur Epithelial Cells (Negative) HPF Moderate Urine Crystals (Negative) HPF Moderate Amorphous Urine Bacteria Not Applicable Urine Casts (Negative) LPF 0-2 Hyaline Urine Mucus (Negative) Moderate Ur Culture Indicated? No/Sq. Contamination Urine Glucose (Negative) mg/dL Negative Ethyl Alcohol (<10) mg/dL 87.2 H Quality:SDOH Health Related Social Needs: No Data to Display Procedures EJ/Peripheral Line Neck L: Time Out Performed: Yes Skin Cleansed in Sterile Fashion: Yes Size (gauge): 18 IV Secured and Dressing Applied: Yes Patient Tolerated Procedure: no complications Critical Care Time Critical Care Time Critical Care Time: Yes Total Critical Care Time: 40 Attestation: I spent greater than 40 minutes addressing this patient's immediate life threats. Please see MDM section of note. This time was spent engaged in work directly related to the patient's care, exclusive of separate procedures, and failure to initiate these interventions would have likely resulted in clinically significant or life threatening deterioration in the patient's condition. Sign Out Sign Out Data: Sign Out Comment: ETOH withdrawal, CIWA 24, started phenobarb (is on nifedipine, will need to watch BP). Pending labs. Anticipate admission. Last updated by Joanne Arreguin MD at 11/09/23 07:43 Discharge Plan Disposition Patient Disposition: Admit to [facility] Condition: Serious Discharge Details Clinical Impression: Alcohol withdrawal syndrome, Hypomagnesemia, Lactic acidosis Admit Date/Time: 11/09/23 09:21 Admit Provider: Earnest Collier Attending Provider: Earnest Collier Primary Care Provider: Georgette Reza ED Provider: Bubba Landeros Discharge Data Discharge Date/Time-TO BE ENTERED AT DEPARTURE: 11/09/23 12:20
[2023-11-09] MEDS: Normal Saline 1,000 ML 100 ML IV (09:16)
--- NOTE | 2023-11-09 09:33 | HPE_ITS ---
Date of service: 11/09/23 Time of Service: 09:33 Assessment and Plan Assessment and plan (1) Alcohol withdrawal syndrome: Status: Acute Assessment and plan: admission to ICU for continued loading of phenobarbital to treat acute withdrawal, close monitoring; patient should have total loading dose of 10 mg/kg based on IBW however she may need higher doses given her hx of alcoholism and comorbidity of opioid use disorder. continue her suboxone therapy for her OUD, check drug screen, continue hydration, repeat her lactic acid level, monitor for signs/symptoms of hallucinations, seizures, hypertensive urgency, continue her nifedipine for her HTN, replace her electrolytes and monitor her labs. Patient came to the ICU w/ left external juglar venous catheter that was still in the neck but was no longer in the vein and did not flush or draw back so this was stopped. she will either need midline/picc or CVC catheter. I am told that the PICC line nurse can not come until 4 pm, therefore I spoke w/ the patient about her need for CVC line. She indicated she has had one in the past and is agreeble to placement of one. Qualifiers: Complication of substance-induced condition: uncomplicated Qualified Code(s): F10.930 - Alcohol use, unspecified with withdrawal, uncomplicated (2) Lactic acidosis: Status: Acute Assessment and plan: as above, likely d/t alcohol use, will repeat after hydration, she has lactate of 5.2 and low K of 3.3 and low Mg of 1.4, UA shows protein and ketones but no glucose and her serum glucose is normal. So likely her lactic acidosis is from her alcohol use but will repeat now as she has been gettting NS and lactate should be coming down. If not then need to seek other sources i.e. infectious, other toxins (she did not get UDS in the E.D. so I asked Dr. Landeros to obtain one). (3) Hypomagnesemia: Status: Acute Assessment and plan: likely d/t her poor intake and chronic alcoholism; patient received 1 gm of magnesium for Mg of 1.4, she will likely need more replacement, will give another 1 gm IVPB and start oral replacement (4) Hypokalemia: Status: Acute Assessment and plan: patient has K 3.1 w/ elevated lactate, VBG was not done so I will ask for one now, although her HCO3 on her chemistry panel was ok at 27.5 so not likely acidotic, if she were acidotic her K should be high rather than low. Low K may be d/t poor nutrition or d/t emesis. will give parenteral and oral replacement and repeat her labs this afternoon. 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 She has a history of alcohol abuse and has been trying to cut back her drinking. She usually drinks 3 to 4 24 ounce beers per day. With approximately ABV of 13%. She been trying to cut down on drinking this morning went through acute withdrawal symptoms of headaches, tremor, anxiety, diaphoresis. She has a history of alcohol withdrawal in the past requiring supervised medication. No history of seizures. Patient was treated with phenobarbital protocol for alcohol withdrawal after initial treatment with Ativan 2 mg IV. However IV became infiltrated and a minuscule amount of the phenobarbital infiltrated into her arm. This is in the left upper arm. Prior to that right upper arm IV had infiltrated before receiving any medications. The ED provider placed the right external jugular vein catheter however this became dislodged and route to the ICU therefore she did not receive any further phenobarbital. On arrival to the ICU she was tachycardic diaphoretic nauseated and very tremulous. Since we had no IV access we gave her 2 mg Ativan IM and gave her a loading dose of phenobarbital 260 mg IM (in addition to the iv dose of 184 mg given in the iv, note patient never got the oral dose of phenobarbital). Patient has estimated IBW of 50.9 kg accounting for her BKA. Her range on her soft stop (i.e. 15 mg/kg) is 690 mg to 820 mg and her hard stop (i.e. 20 mg/kg) is 920 mg to 1094 mg. after given the im dose of phenobarbital and im ativan she became much more calm, diaphoresis resolved. she still is anxious but better. She is admited to ICU for continued treatment of acute alcohol withdrawal and correction of her electrolyte abnormalties (low Mg 1.4 and low K 3.1). Review of Systems All systems reviewed & are unremarkable except as noted in HPI and below PFSH All Active Problems (Updated 11/09/23 @ 18:38 by Earnest Collier MD) DVT prophylaxis (Acute) Hypokalemia (Acute) Lactic acidosis (Acute) Hypomagnesemia (Acute) Alcohol withdrawal syndrome (Acute) Encounter for counseling regarding contraception (Acute) Possible exposure to STI (Acute) Abdominal aneurysm, ruptured (Acute) Encounter for screening examination for sexually transmitted disease (Acute) Abscess of right thigh (Acute) Leg wound, right (Acute) Anemia (Chronic) Gangrene of left foot (Acute) Retained foreign body (Acute) Vulvar cellulitis (Acute) History of herpes genitalis (Acute) Vulvar pain (Acute) Open wound of finger of right hand (Acute) Cellulitis of toe of left foot (Acute) Abnormal finding on imaging (Acute) Abnormal MRI (Acute) Dysuria (Acute) 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 Patient has appointment at [facility] in [place] for consideration of termination History of intravenous drug abuse (Acute) Cellulitis of left lower extremity (Acute) Poor intravenous access (Acute) Chronic infection as complication of amputation (Acute) Heart murmur (Acute) Hypotension (Chronic) Petechial rash (Acute) Acute on chronic anemia (Acute) Osteomyelitis of right lower extremity (Chronic) DVT, lower extremity, distal, acute (Acute) 10/24 2018 left lower extremity. Rx with Eliquis. Abnormal uterine bleeding (AUB) (Acute) On. Set 10/24/2018 heavy flow coinciding with initiation of Eliquis Normocytic hypochromic anemia (Acute) 10/26/2018 hemoglobin 8.2 MCV 83 Medical History Tenosynovitis of finger Leg wound, right Cellulitis of finger of right hand Endometriosis Raynaud disease Hx of hepatitis C AB +. No viral load. Hx of opioid abuse Currently in treatment at [facility]. Suboxone. Surgical History History of transesophageal echocardiography (YG) negative Retained foreign body L groin, s/p unsuccessful exploratory surgery H/O hand surgery contracted post-op Complete below knee amputation of right lower extremity 2018. 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 [facility]. 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 Family History Father Diabetes Paternal Grandfather Diabetes Paternal Aunt Diabetes Maternal Grandmother Breast cancer Maternal Aunt Multiple sclerosis Social History Smoking/Tobacco Use Status: Never Smoking risk assessment performed?: Yes Alcohol Intake: current Alcohol Intake frequency: 3 or more drinks per day Alcohol type: beer and hard liquor Drug use: Current Sobriety Substance use type: former substance user, crack/cocaine, heroin and methamphetamine Details: former cocaine (snorted, smoked, IV) and heroin use (IV), as well as crystal meth (IV). Patient is currently enrolled at [facility], on suboxone Household members: children and other Details: Patient resides at her sister's house with her daughter Housing: apartment Number of Children: 1 current occupation: Unemployed Sexually active: Yes Do you think of yourself as: straight/heterosexual Current gender identity: female Seatbelt use: always Do you feel safe at home: Yes (new restraining order on ) Do you feel safe in your relationship?: No Additional Social history: Ambulates with crutches - 2 falls recently Meds Allergies and Home Medications Allergies Allergy/AdvReac Type Severity Reaction Status Date / Time No Known Allergies Allergy Verified 11/09/23 06:26 Home Medications ?Medication ?Instructions ?Recorded ?Confirmed ?Type buprenorphine 8 mg-naloxone 2 mg 2 film sublingual DAILY 05/10/22 11/09/23 History sublingual film (Suboxone) ibuprofen 800 mg tablet 800 mg PO TID PRN pain #270 tabs 03/28/23 11/09/23 Rx Prosthetic for left BKA #1 ea 06/25/24 07/12/24 Rx gabapentin 300 mg capsule 300 mg PO TID #90 caps 10/23/23 11/09/23 Rx nifedipine 30 mg tablet,extended 30 mg PO DAILY #90 tabs 10/23/23 11/09/23 Rx release pantoprazole 40 mg tablet,delayed 40 mg PO DAILY #90 tabs 10/23/23 11/09/23 Rx release Exam Narrative Exam Narrative: Middle age white female who is anxious but calmer now than when she presented to the ICU, skin still mildly diaphoretic She is not dyspneic Heent: poor dentition, otherwise normal Neck: no JVD, normal carotid pulses, no bruits, no adenopathy Lungs: clear Heart: regular but tachycardic, no murmur Abdomen: soft, nondistended, no guarding or rebound tenderness, no HSM or bruits Results Labs 11/09/23 07:24 11/09/23 15:45 Labs: Laboratory Results - last 24 hr 11/09/23 11/09/23 07:24 07:49 WBC 3.15 L RBC 3.59 L Hgb 11.7 Hct 34.1 L MCV 95 MCH 32.6 MCHC 34.3 RDW 15.9 H Plt Count MPV VBG Lactate 5.2 H* Sodium 139 Potassium 3.3 L Chloride 98 Carbon Dioxide 27.5 Anion Gap 13.5 H BUN 11 Creatinine 0.7 Est GFR (CKD-EPI 2020) 112.05 Glucose 96 Calcium 8.7 Phosphorus 3.8 Magnesium 1.4 L Total Bilirubin 0.57 AST 150 H ALT 48 Alkaline Phosphatase 102 Total Protein 8.3 H Albumin 3.6 Beta HCG, Quant < 1 L Urine Color Yellow Urine Clarity Clear Urine pH 8.0 Ur Specific [place] 1.020 Urine Protein >=300 H Urine Ketones Negative Urine Blood Trace-intact H Urine Nitrite Negative Urine Bilirubin Negative Urine Urobilinogen 2.0 H Ur Leukocyte Esterase Negative Urine RBC Not Applicable Urine WBC 3-5 Ur Epithelial Cells Moderate Urine Crystals Moderate Amorphous Urine Bacteria Not Applicable Urine Casts 0-2 Hyaline Urine Mucus Moderate Ur Culture Indicated? No/Sq. Contamination Urine Glucose Negative Ethyl Alcohol 87.2 H Last Vital Signs Temp 36.1 C L 11/09/23 06:21 Pulse 85 11/09/23 08:48 Resp 25 H 11/09/23 08:50 BP 158/97 H 11/09/23 08:48 Pulse Ox 97 07/12/24 08:50 PAWSS Have you Been Recently Intoxicated or Drunk Within the Last 30 days?: Yes Have you Ever Experienced Previous Episodes of Alcohol Withdrawal?: Yes Have you ever Experienced Withdrawal Seizures?: No Have you ever Experienced Delirium Tremens(DT)s?: Yes Have you ever undergone Alcohol Rehabilitation Treatment (i.e, inpt ot outpatient treatment programs)?: Yes Have you ever Experienced Blackouts?: Yes Have you ever Combined Alcohol with other Downers within the last 90 days?: Yes Have you ever Combined Alcohol with any other Substance of Abuse during the last 90 days?: Yes Positive Blood Alcohol level on Presentation? [PCS.BAL]: Yes Evidence of Increased Autonomic Activity (i.e. HR>120, tremor, sweating, agitation, nausea)?: Yes Result: 9 Time Spent Time spent with Patient: 55-74 minutes Time was spent: preparing to see the patient(eg.review tests), ordering medications,tests, procedures, referring, communicating with other health customer care agent (discussion of her presentation and treatment w/ Dr. Landeros, discussion of plan of treatment w/ ICU nurses), indepentently interpreting results, counseling the patient and care coordination
[2023-11-09] MEDS: LORazepam 2 MG/ML VIAL IM (10:06)
[2023-11-09] MEDS: Lidocaine/Prilocaine Cream 5 GM TUBE (11:18)
[2023-11-09 13:02] LABS: BE (Venous) 7 mmol/L (-2-3); HCO3 (Venous) 31 mmol/L (23-28); O2 Sat (Venous) 83 %; TCO2 (Venous) 28 mmol/L (24-29); pCO2 (Venous) 43 mmHg (41-51); pH (Venous) 7.47 (7.31-7.41); pO2 (Venous) 48 mmHg
[2023-11-09 13:04] LABS: Lactate 2.8 mmol/L (0.6-1.4)
[2023-11-09 13:12] LABS: Potassium 3.2 mmol/L (3.5-5.1)
[2023-11-09] MEDS: PHENobarbital 130 MG/ML VIAL 260 MG IM (13:16)
--- NOTE | 2023-11-09 15:47 | PDOC.CMIN ---
Date of service: 11/09/23 Time of Service: 15:47 Care Management Initial Assmt Initial Assessment Reason for Hospitalization: Alcohol Withdrawal Syndrome Functional Status/Living Situation Patient Presentation: Lindsay is being closely monitored on CIWA per protocol and was lying in bed watching TV when CM met with her. Pt shares that she left her a few weeks ago and made a decision yesterday that she wants to stop drinking to better her life. Pt reports that she would not want to go to inpatient rehab but is agreeable to a recovery center. CM paged the Center and a horse riding coach or instructor is on their way to see her now. Town of Residence: [facility] Resides with: Alone Significant Other/Family: Local Natural Supports: Per pt, she has a supportive family. She is close with her parents Nya and Enrique Ellsworth and sister-Louise Ferrer. Employment Status: Disabled Instrumental Activities of Daily Living (ADLs): Independent Medications Medication Management: No Issues/Barriers identified Physical Functioning/Mobility Assistive Device: Grab Bars Wheelchair Right leg prothetic, does not use Advance Directives Advance Directives: Do you have an Advance Directive: N 03/14/19 09:36 AD On File at [facility]: N 03/14/19 09:36 Date Asked 11/09/23 11/10/23 09:14 AD Date Reviewed COLST On File at [facility] COLST Date Scanned Code Status Resuscitation Status Full Code Insurance Coverage/Financial Issues Insurance: Medicare Medicaid ACO Member: Yes Care Team Visit Care Team Role Provider Type Georgette Reza NP Primary Care Provider NURSE PRACTITIONER Bubba Landeros MD Emergency Provider [facility] STAFF PHYSICIAN Earnest Collier MD Admit Provider [facility] STAFF PHYSICIAN Attending Provider Discharge Potential Discharge Needs: PCP F/U Appt Anticipated Barriers to Discharge: None Identified Patient/Family Education Needs: Review discharge instructions, discuss Ask Me Three Transportation: Private vehicle Plan: Lindsay is being closely monitored and treated for alcohol withdrawal syndrome and plans to meet with [facility] during this admission. Anticipate, Lindsay will discharge home when medically ready via private vehicle with family vs. RCT. Lindsay will follow up with community providers and her discharge plan of care as instructed. PFSH All Active Problems (Updated 11/10/23 @ 09:03 by Earnest Collier MD) Discharge planning issues (Acute) Acquired hyperbilirubinemia (Acute) Thrombocytopenia (Chronic) Opioid use disorder (Acute) DVT prophylaxis (Acute) Hypokalemia (Acute) Lactic acidosis (Acute) Hypomagnesemia (Acute) Alcohol withdrawal syndrome (Acute) Encounter for counseling regarding contraception (Acute) Possible exposure to STI (Acute) Abdominal aneurysm, ruptured (Acute) Encounter for screening examination for sexually transmitted disease (Acute) Abscess of right thigh (Acute) Leg wound, right (Acute) Anemia (Chronic) Gangrene of left foot (Acute) Retained foreign body (Acute) Vulvar cellulitis (Acute) History of herpes genitalis (Acute) Vulvar pain (Acute) Open wound of finger of right hand (Acute) Cellulitis of toe of left foot (Acute) Abnormal finding on imaging (Acute) Abnormal MRI (Acute) Dysuria (Acute) 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 [facility] in [place] for consideration of termination History of intravenous drug abuse (Acute) Cellulitis of left lower extremity (Acute) Poor intravenous access (Acute) Chronic infection as complication of amputation (Acute) Heart murmur (Acute) Hypotension (Chronic) Petechial rash (Acute) Acute on chronic anemia (Acute) Osteomyelitis of right lower extremity (Chronic) DVT, lower extremity, distal, acute (Acute) 10/24 2018 left lower extremity. Rx with Eliquis. Abnormal uterine bleeding (AUB) (Acute) On. Set 10/24/2018 heavy flow coinciding with initiation of Eliquis Normocytic hypochromic anemia (Acute) 10/26/2018 hemoglobin 8.2 MCV 83 Medical History Tenosynovitis of finger Leg wound, right Cellulitis of finger of right hand Endometriosis Raynaud disease Hx of hepatitis C AB +. No viral load. Hx of opioid abuse Currently in treatment at [facility]. Suboxone. Surgical History History of transesophageal echocardiography (YG) negative Retained foreign body L groin, s/p unsuccessful exploratory surgery H/O hand surgery contracted post-op Complete below knee amputation of right lower extremity 2018. 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 [facility]. 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 Family History Father Diabetes Paternal Grandfather Diabetes Paternal Aunt Diabetes Maternal Grandmother Breast cancer Maternal Aunt Multiple sclerosis Social History Smoking/Tobacco Use Status: Never Smoking risk assessment performed?: Yes Alcohol Intake: current Alcohol Intake frequency: 3 or more drinks per day Alcohol type: beer and hard liquor Drug use: Current Sobriety Substance use type: former substance user, crack/cocaine, heroin and methamphetamine Details: former cocaine (snorted, smoked, IV) and heroin use (IV), as well as crystal meth (IV). Patient is currently enrolled at [facility], on suboxone Household members: children and other Details: Patient resides at her sister's house with her daughter Housing: apartment Number of Children: 1 current occupation: Unemployed Sexually active: Yes Do you think of yourself as: straight/heterosexual Current gender identity: female Seatbelt use: always Do you feel safe at home: Yes (new restraining order on ) Do you feel safe in your relationship?: No Additional Social history: Ambulates with crutches - 2 falls recently SDOH(Care Management) Screening Will the Patient Participate in the Screening?: Yes Do you worry about having a steady place to live?: no Problems where you live: no known problems In the past 12 months, have you had to go without electric, gas, oil or water in your home?: no Have you or anyone in your house had to go without enough food to eat?: no Has lack of transportation kept you from medical appointments or from doing things needed for daily living?: no Has anyone in your support network made you feel unsafe for any reason?: no
--- NOTE | 2023-11-09 15:50 | DI.RAD_ITS ---
Exam(s) XR LINE PLACEMENT PICC/CVA EXAM: XR LINE PLACEMENT PICC/CVA CLINICAL HISTORY: Check CVC placement TECHNIQUE: 2D digital imaging was performed. COMPARISON: CR,XR XR PORTABLE CHEST AP from 02/03/2022 FINDINGS: A right internal jugular central venous catheter has been inserted. The tip projects in the superio r vena cava. LUNGS: Clear. No pleural abnormality seen. HEART: Normal size. AORTA: Normal diameter. BONES: Unremarkable for age. Soft tissues: Unremarkable. IMPRESSION: Status post placement of internal jugular catheter. No pneumothorax.. DATA REPOSITORY: RADIATION DOSE DELIVERED:
[2023-11-09 16:05] LABS: Anion Gap 6.9 mmol/L (3-11); BUN 11 mg/dL (7-18); CO2 31.1 mmol/L (21.0-32.0); CREATININE 0.7 mg/dL (0.55-1.02); Calcium 8.8 mg/dL (8.5-10.1); Chloride 97 mmol/L (98-107); Estimated GFR 112.05 (mL/min/1.73m2); Glucose 95 mg/dL (74-106); Sodium 135 mmol/L (136-145)
--- NOTE | 2023-11-09 16:21 | ROE_ITS ---
Date of service: 11/09/23 Time of Service: 14:30 Operative Note Operative Note DATE OF PROCEDURE: 11/09/23 PRE-OP DIAGNOSIS: acute alcohol withdrawal, lack of peripheral iv access and need for iv access POST-OP DIAGNOSIS: same PROCEDURE: right internal jugular venous triple lumen venous catheter SURGEON: Earnest Collier ANESTHESIA TYPE: Local By Surgeon Refer to Anesthesia Record ESTIMATED BLOOD LOSS: 5 (mL) PATHOLOGY: none sent Patient was transported to: no change Patient's condition: stable Indications: lack of peripheral iv access and loss of three different peripheral iv lines and inability to secure another peripheral iv line Procedure Description: After obtaining signed written informed consent including discussion of indications, alternative treatments, potential complications (including pneumothorax, inadvertent carotid puncture, infection, hematoma) patient consented to placement of triple-lumen central venous catheter. Timeout was taken to verify correct patient correct procedure and correct site. Patient was prepped and draped in sterile fashion after I had gowned and gloved in mask in a sterile fashion. Using the materials from an Arrow 7 [place] 3 lm 20 cm catheter along pressure injectable aero guard Blue +3 lumen CVC catheter kit. 5 mL of 1% lidocaine was used to locally anesthetize the skin and subcutaneous tissue and using SonoSite PX L 12-3 trans linear ultrasound probe which had been covered in sterile probe cover to identify the internal jugular vein. 3 attempts at The vein cannulating the right internal jugular were performed using the enclosed 18-gauge by 2-1/2 inch radiopaque over 20-gauge RW introducer needle. First attempt the needle was followed using the transverse view w/ the linear probe but the needle could not be localized to the lumen of the RIJV. Needle did not have any blood return and was removed. Second attempt the needle was followe in long axis veiw and seen in the lumen of the vessel but was up against the back wall of the vessel and was pulled back w/ venous return in the catheter. While putting reaching for the guide wire, the needle was inadvertently pulled back so US probe was applied and needle was no longer in the vein. The third attempt was made and was unsuccessful. US was applied to the jugular vein and also the carotid artery was scanned w/ color flow doppler, small extravasation was noted from the wall of the carotid collaberating my suspicion of inadvertent introduction of the needle into the carotid. At this point pressure was applied and held while calling for assistance from Dr. Issac Valdez, surgeon who scanned the patient's neck and completed the cannulation of her right internal juglar vein successfully. US images were taken to demonstrate that the catheter was in proper location. US was taken immediately of her right lung to confirm that no pneumothorax had occurred.
[2023-11-09] MEDS: Normal Saline Flush 10 ML SYR IVP (16:23)
[2023-11-09] MEDS: Potassium Chloride 10 MEQ CAPCR 20 MEQ PO ×2 (16:24→20:17)
[2023-11-09] MEDS: Gabapentin 300 MG CAP PO ×2 (16:24→20:17)
[2023-11-09] MEDS: POTASSIUM CHLORIDE 10 MEQ/100 ML BAG 100 MEQ IVINF ×3 (16:24→18:34)
[2023-11-09] MEDS: Normal Saline-STERILE FIELD 0.9% 10 ML SYR (16:25)
[2023-11-09] MEDS: Lidocaine 2% Multi-Dose 20 ML VIAL (16:27)
[2023-11-09 16:41] LABS: Bilirubin Negative (Negative); Blood Trace-intact (Negative); Clarity Clear (Clear); Glucose Negative (Negative); Ketones Negative (Negative); Leukocyte Esterase Negative (Negative); Nitrite Negative (Negative); pH 8.5 (5-8)
[2023-11-09] MEDS: MAGNESIUM SULFATE 2 GM/50 ML BAG IVINF (16:47)
[2023-11-09 16:50] LABS: *AMPHETAMINES SCREEN URINE Negative (Negative); *BARBITURATES SCREEN URINE Positive (Negative); *BENZODIAZEPINES SCREEN URINE Negative (Negative); Cannabinoids THC Negative (Negative); Cocaine Screen,Urine Positive (Negative); METHADONE URINE SCREEN Negative (Negative); OPIATES URINE SCREEN Negative (Negative); Tricyclic Antidepressants Negative (Negative)
[2023-11-09 17:50] LABS: Bacteria Rare HPF (Negative); C & S Indicated? No; Casts Negative LPF (Negative); Crystals Many Amorphous HPF (Negative); Epithelial Cells Rare HPF (Negative); Mucus Trace (Negative); RBC 0-2 HPF (0-2); WBC 0-2 HPF (0-5)
[2023-11-09] MEDS: Enoxaparin 40 MG/0.4 ML SYR SC (18:06)
[2023-11-09] MEDS: Lactated Ringers 1,000 ML 50 ML IV (18:45)
[2023-11-09] MEDS: POTASSIUM CHLORIDE 20 MEQ/100 ML BAG 50 MEQ IVINF ×2 (20:16→22:02)
[2023-11-10] VITALS (20 sets, daily range): BP systolic 104–148; BP diastolic 80–118; PULSE 78–111; RESP 8–20; TEMP 35.7–37; O2SAT 96–99
[2023-11-10 06:30] LABS: Abs Immature Grans 0.02 10^3/uL (0.0-0.06); Absolute Basophil Count 0.02 10^3/uL (0.0-0.2); Absolute Eosinophil Count 0.05 10^3/uL (0.0-0.7); Absolute Lymphocyte Count 0.77 10^3/uL (1.2-3.4); Absolute Monocyte Count 0.25 10^3/uL (0.1-0.8); Absolute Neutrophil Count 1.95 10^3/uL (1.2-6.7); Basophils % 0.7 %; Eosinophils % 1.6 %; HCT 30.3 % (36.0-46.0); Immature Grans % 0.7 %; Lymphocytes % 25.2 %; MCH 32.7 pg (27.0-33.0); MCV 99 fL (80-95); MPV 11.8 fL (8.0-11.0); Monocytes % 8.2 %; Neutrophils % 63.6 %; RBC 3.06 10^6/uL (3.93-5.22); WBC 3.06 10^3/uL (4.4-10.8)
[2023-11-10 06:52] LABS: ALT 35 U/L (14-59); AST 108 U/L (15-37); Albumin 2.9 g/dL (3.4-5.0); Alkaline Phosphatase 91 U/L (46-116); Anion Gap 4.6 mmol/L (3-11); BUN 12 mg/dL (7-18); Bilirubin, Total 1.17 mg/dL (0.2-1.0); CO2 28.4 mmol/L (21.0-32.0); CREATININE 0.8 mg/dL (0.55-1.02); Chloride 104 mmol/L (98-107); Estimated GFR 95.46 (mL/min/1.73m2); Glucose 95 mg/dL (74-106); Magnesium 1.8 mg/dL (1.8-2.4); PHOSPHORUS 2.6 mg/dL (2.6-4.7); Potassium 3.9 mmol/L (3.5-5.1); Sodium 137 mmol/L (136-145); Total Protein 6.7 g/dL (6.4-8.2)
[2023-11-10 07:10] LABS: Platelet Count 41 10^3/uL (130-400)
--- NOTE | 2023-11-10 08:48 | PGE_ITS ---
Date of Service Date of service: 11/10/23 Time of Service: 08:48 Assessment and Plan Assessment and plan (1) Alcohol withdrawal syndrome: Status: Acute Assessment and plan: Patient has had a total of 444 mg of phenobarbital so far. She has not reached her soft stop limit of approximately 800 mg nor her heart stop of approximately 100 mg. At this point it does not appear that she will require additional treatment with phenobarbital. Will restart her Suboxone for opioid use disorder continue to monitor her today for any withdrawal symptoms if she is not demonstrating withdrawal that she can be discharged home. Downgraded to MedSurg status. Patient is amenable to outpatient alcohol rehab counseling and a aircraft launch and recovery technician or AA. She is also amenable to initiation of acamprosate. Qualifiers: Complication of substance-induced condition: uncomplicated Qualified Code(s): F10.930 - Alcohol use, unspecified with withdrawal, uncomplicated (2) Opioid use disorder: Status: Acute Assessment and plan: Restart Suboxone as above (3) Hx of hepatitis C: Assessment and plan: Chronic hepatitis profile pending (4) Thrombocytopenia: Status: Chronic Assessment and plan: Acquired thrombocytopenia from alcoholism. Consider further outpatient workup of liver abnormalities. Patient should probably have annual screening for development of hepatocellular carcinoma. (5) Acquired hyperbilirubinemia: Status: Acute (6) Lactic acidosis: Status: Acute Assessment and plan: Secondary to alcoholism and acute alcohol hepatitis. Lactic levels were declining last night we will recheck her level this morning (7) Hypomagnesemia: Status: Acute Assessment and plan: Replete and monitor (8) Hypokalemia: Status: Acute Assessment and plan: Replete and monitor (9) DVT prophylaxis: Status: Acute Assessment and plan: lovenox despite her low platelet counts in the past, we can not perform SCD given her BKA status (10) Discharge planning issues: Status: Acute Assessment and plan: Plan will return to home with her family with follow-up outpatient alcohol counseling and follow-up with her PCP. I will prescribe acamprosate upon discharge Subjective Subjective Interval history since last seen: Lindsay is feeling much better no longer tremulous although she had reported some nausea this morning but she seems to be eating breakfast fine with no vomiting. She feels that she is still going through some withdrawal but she is not scoring high on the CIWA scale. I think some contribution is due to the fact that she has been missing her Suboxone dose for last 2 days. Will restart her Suboxone this morning. I told her that we would watch her today and if she is not going through further withdrawal and not requiring further phenobarbital she can very be discharged home either late today or tomorrow morning. She is open to the idea of entering into AA or getting a aircraft launch and recovery technician. She is also open to the idea of going on acamprosate for alcohol suppression. Exam Narrative Exam Narrative: Lindsay is sitting up in bed eating breakfast she is calm alert and oriented denies any pain. Lungs are clear to auscultation Heart is regular rate and rhythm Abdomen soft nontender nondistended Skin is mildly moist but she is not overtly diaphoretic no visible tremors in her hands. Objective Last Vital Signs Temp 36.8 C 11/10/23 08:24 Pulse 97 H 11/10/23 08:01 Resp 19 11/10/23 08:01 BP 104/80 11/10/23 08:01 Pulse Ox 98 11/10/23 08:24 Laboratory Results - last 24 hr 11/09/23 11/09/23 11/09/23 12:55 15:45 16:05 WBC RBC Hgb Hct MCV MCH MCHC RDW Plt Count MPV Immature Gran % Neutrophils % Lymphocytes % Monocytes % Eosinophils % Basophils % Nucleated RBC % Absolute Neutrophils Absolute Lymphocytes Absolute Monocytes Absolute Eosinophils Absolute Basophils VBG pH 7.47 H VBG pCO2 43 VBG pO2 48 VBG HCO3 31 H VBG Total CO2 28 VBG O2 Saturation 83 VBG Base Excess 7 H VBG Lactate 2.8 H* Sodium 135 L Potassium 3.2 L 3.0 L Chloride 97 L Carbon Dioxide 31.1 Anion Gap 6.9 BUN 11 Creatinine 0.7 Est GFR (CKD-EPI 2020) 112.05 Glucose 95 Calcium 8.8 Phosphorus Magnesium Total Bilirubin AST ALT Alkaline Phosphatase Total Protein Albumin Urine Color Yellow Urine Clarity Clear Urine pH 8.5 H Ur Specific [place] 1.020 Urine Protein 100 H Urine Ketones Negative Urine Blood Trace-intact H Urine Nitrite Negative Urine Bilirubin Negative Urine Urobilinogen 1.0 H Ur Leukocyte Esterase Negative Urine RBC 0-2 Urine WBC 0-2 Ur Epithelial Cells Rare Urine Crystals Many Amorphous Urine Bacteria Rare Urine Casts Negative Urine Mucus Trace Ur Culture Indicated? No Urine Glucose Negative Urine Opiates Screen Negative Urine Methadone Screen Negative Ur Barbiturates Screen Positive A Ur Tricyclics Screen Negative Ur Amphetamines Screen Negative U Benzodiazepines Scrn Negative Urine Cocaine Screen Positive A Ur THC Screen Negative 11/10/23 05:45 WBC 3.06 L RBC 3.06 L Hgb 10.0 L Hct 30.3 L MCV 99 H D MCH 32.7 MCHC 33.0 RDW 16.0 H Plt Count 41 L MPV 11.8 H Immature Gran % 0.7 Neutrophils % 63.6 Lymphocytes % 25.2 Monocytes % 8.2 Eosinophils % 1.6 Basophils % 0.7 Nucleated RBC % 0.0 Absolute Neutrophils 1.95 Absolute Lymphocytes 0.77 L Absolute Monocytes 0.25 Absolute Eosinophils 0.05 Absolute Basophils 0.02 VBG pH VBG pCO2 VBG pO2 VBG HCO3 VBG Total CO2 VBG O2 Saturation VBG Base Excess VBG Lactate Sodium 137 Potassium 3.9 Chloride 104 Carbon Dioxide 28.4 Anion Gap 4.6 BUN 12 Creatinine 0.8 Est GFR (CKD-EPI 2020) 95.46 Glucose 95 Calcium 8.0 L Phosphorus 2.6 Magnesium 1.8 Total Bilirubin 1.17 H AST 108 H ALT 35 Alkaline Phosphatase 91 Total Protein 6.7 Albumin 2.9 L Urine Color Urine Clarity Urine pH Ur Specific [place] Urine Protein Urine Ketones Urine Blood Urine Nitrite Urine Bilirubin Urine Urobilinogen Ur Leukocyte Esterase Urine RBC Urine WBC Ur Epithelial Cells Urine Crystals Urine Bacteria Urine Casts Urine Mucus Ur Culture Indicated? Urine Glucose Urine Opiates Screen Urine Methadone Screen Ur Barbiturates Screen Ur Tricyclics Screen Ur Amphetamines Screen U Benzodiazepines Scrn Urine Cocaine Screen Ur THC Screen PAWSS Have you Been Recently Intoxicated or Drunk Within the Last 30 days?: Yes Have you Ever Experienced Previous Episodes of Alcohol Withdrawal?: Yes Have you ever Experienced Withdrawal Seizures?: No Have you ever Experienced Delirium Tremens(DT)s?: Yes Have you ever undergone Alcohol Rehabilitation Treatment (i.e, inpt ot outpatient treatment programs)?: No Have you ever Experienced Blackouts?: Yes Have you ever Combined Alcohol with other Downers within the last 90 days?: No Have you ever Combined Alcohol with any other Substance of Abuse during the last 90 days?: No Positive Blood Alcohol level on Presentation? [PCS.BAL]: Yes Evidence of Increased Autonomic Activity (i.e. HR>120, tremor, sweating, agitat ion, nausea)?: Yes Result: 6 Time Spent with Patient Time Spent with Patient: 25-34 minutes Time was spent: preparing to see the patient(eg.review tests), ordering medications,tests, procedures, referring, communicating with other health daycare assistant, indepentently interpreting results, counseling the patient and care coordination
[2023-11-10] MEDS: Buprenorphine/Naloxone 8 mg/2 mg FILM 2 EACH SL (08:49)
[2023-11-10] MEDS: NIFEdipine-CR 30 MG TABCR PO (08:51)
[2023-11-10] MEDS: Gabapentin 300 MG CAP PO ×3 (08:52→20:15)
[2023-11-10] MEDS: Potassium Chloride 10 MEQ CAPCR 20 MEQ PO (08:53)
[2023-11-10] MEDS: Thiamine 100 MG TAB PO (08:53)
[2023-11-10] MEDS: Multivitamin TAB 1 TAB PO (08:53)
[2023-11-10] MEDS: Pantoprazole 40 MG TABCR PO (08:53)
[2023-11-10] MEDS: Folic Acid 1 MG TAB PO (08:54)
[2023-11-10 09:30] LABS: Lactate 1.3 mmol/L (0.6-1.4)
[2023-11-10] MEDS: Magnesium Gluconate 500 MG TAB PO (10:07)
--- NOTE | 2023-11-10 12:12 | W.PC.ACHO ---
Registration Status: Primary Language: Preferred Language: ED Information & Data Chief Complaint ETOHWithdr 11/09/23 06:27 Chief Complaint ETOHWithdr 11/09/23 06:21 Triage Note Pt c/o ETOH WD w n/v, 11/09/23 06:21 shaking, sweating, hallucinations, anxiety. Last drink=yesterday. 2-4 13.9% tall boys/day. Pt denies having seizures in the past but states she has been in WD in the past. Pt states she is actively trying to quit drinking. Pt denies CP, difficulty breathing. 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, right Most Recent Vital Signs Temperature 36.2 C L 11/10/23 11:55 Temperature Source Temporal Artery Scan 11/10/23 11:55 Pulse 100 H 11/10/23 11:55 Pulse 90 11/10/23 09:00 Respiratory Rate 20 11/10/23 11:55 Respiratory Effort Normal 11/10/23 10:30 Respiratory Depth Normal 11/10/23 10:30 Respiratory Pattern Normal 11/10/23 10:30 Blood Pressure 135/102 H 11/10/23 11:55 Blood Pressure Mean 111 11/10/23 09:00 Blood Pressure Position Sitting 11/09/23 16:51 Pulse Oximetry 99 11/10/23 11:55 Respiratory End-tidal CO2 33 11/09/23 23:01 Oxygen Delivery Method Room Air 11/10/23 11:55 Oxygen Flow Rate 0 11/10/23 11:55 Pain Level 0 11/10/23 11:55 Allergies No Known Allergies Allergy (Verified 11/09/23 06:26) Active Medications Generic Name Dose Route Start Last Admin Trade Name Freq PRN Reason Stop Dose Admin Buprenorphine/Naloxone 2 each 11/10/23 08:30 11/10/23 08:49 Buprenorphine/Naloxone 8 Mg/2 Mg Film SL 2 each DAILY JOLEEN Administration Enoxaparin Sodium 40 mg 11/09/23 18:00 11/09/23 18:06 Enoxaparin 40 Mg/0.4 Ml Syr SC 40 mg Q24H JOLEEN Administration Folic Acid 1 mg 11/10/23 08:30 11/10/23 08:54 Folic Acid 1 Mg Tab PO 11/16/23 08:31 1 mg QAM JOLEEN Administration Gabapentin 300 mg 11/09/23 14:00 11/10/23 08:52 Gabapentin 300 Mg Cap PO 300 mg TID JOLEEN Administration Magnesium Gluconate 500 mg 11/10/23 10:00 11/10/23 10:07 Magnesium Gluconate 500 Mg Tab PO 500 mg DAILY@1000 JOLEEN Administration Multivitamins 1 tab 11/10/23 08:30 11/10/23 08:53 Multivitamin Tab PO 11/16/23 08:31 1 tab QAM JOLEEN Administration Nifedipine 30 mg 11/10/23 08:30 11/10/23 08:51 Nifedipine-Cr 30 Mg Tabcr PO 30 mg DAILY JOLEEN Administration Pantoprazole Sodium 40 mg 11/10/23 07:30 11/10/23 08:53 Pantoprazole 40 Mg Tabcr PO 40 mg DAILY@0730 JOLEEN Administration Sodium Chloride 0 ml 11/09/23 06:26 11/09/23 16:23 Normal Saline Flush 10 Ml Syr IVP 50 ml PRN PRN Administration Thiamine HCl 100 mg 11/10/23 08:30 11/10/23 08:53 Thiamine 100 Mg Tab PO 11/16/23 08:31 100 mg QAM JOLEEN Administration IV IV Catheter Type [Right Triple Lumen Subclavian Internal Jugular] IV Catheter Type [Left Saline Lock External Jugular] IV Catheter Type [Left Upper Saline Lock arm] IV Catheter Type [Right Saline Lock Forearm] IV Catheter Gauge [Left 18 External Jugular] IV Catheter Gauge [Left Upper 20 arm] IV Catheter Gauge [Right 20 Forearm] Diagnostics 11/10/23 11/10/23 11/09/23 Range/Units 09:20 05:45 16:05 WBC 3.06 L (4.4-10.8) 10^3/uL RBC 3.06 L (3.93-5.22) 10^6/uL Hgb 10.0 L (11.2-15.7) g/dL Hct 30.3 L (36.0-46.0) % MCV 99 H D (80-95) fL MCH 32.7 (27.0-33.0) pg MCHC 33.0 (32.0-36.0) % RDW 16.0 H (11.7-14.6) % Plt Count 41 L (130-400) 10^3/uL MPV 11.8 H (8.0-11.0) fL Immature Gran % 0.7 % Neutrophils % 63.6 % Lymphocytes % 25.2 % Monocytes % 8.2 % Eosinophils % 1.6 % Basophils % 0.7 % Nucleated RBC % 0.0 (0.0-0.3) % Absolute Neutrophils 1.95 (1.2-6.7) 10^3/uL Absolute Lymphocytes 0.77 L (1.2-3.4) 10^3/uL Absolute Monocytes 0.25 (0.1-0.8) 10^3/uL Absolute Eosinophils 0.05 (0.0-0.7) 10^3/uL Absolute Basophils 0.02 (0.0-0.2) 10^3/uL VBG pH (7.31-7.41) VBG pCO2 (41-51) mmHg VBG pO2 mmHg VBG HCO3 (23-28) mmol/L VBG Total CO2 (24-29) mmol/L VBG O2 Saturation % VBG Base Excess (-2-3) mmol/L VBG Lactate 1.3 (0.6-1.4) mmol/L Sodium 137 (136-145) mmol/L Potassium 3.9 (3.5-5.1) mmol/L Chloride 104 (98-107) mmol/L Carbon Dioxide 28.4 (21.0-32.0) mmol/L Anion Gap 4.6 (3-11) mmol/L BUN 12 (7-18) mg/dL Creatinine 0.8 (0.55-1.02) mg/dL Est GFR (CKD-EPI 2020) 95.46 (mL/min/1.73m2) Glucose 95 (74-106) mg/dL Calcium 8.0 L (8.5-10.1) mg/dL Phosphorus 2.6 (2.6-4.7) mg/dL Magnesium 1.8 (1.8-2.4) mg/dL Total Bilirubin 1.17 H (0.2-1.0) mg/dL AST 108 H (15-37) U/L ALT 35 (14-59) U/L Alkaline Phosphatase 91 (46-116) U/L Total Protein 6.7 (6.4-8.2) g/dL Albumin 2.9 L (3.4-5.0) g/dL Urine Color Yellow (Yellow) Urine Clarity Clear (Clear) Urine pH 8.5 H (5-8) Ur Specific [place] 1.020 (1.005-1.025) Urine Protein 100 H (Neg-Trace) mg/dL Urine Ketones Negative (Negative) mg/dL Urine Blood Trace-intact H (Negative) Urine Nitrite Negative (Negative) Urine Bilirubin Negative (Negative) Urine Urobilinogen 1.0 H (Up to 0.2) mg/dL Ur Leukocyte Esterase Negative (Negative) Urine RBC 0-2 (0-2) HPF Urine WBC 0-2 (0-5) HPF Ur Epithelial Cells Rare (Negative) HPF Urine Crystals Many Amorphous (Negative) HPF Urine Bacteria Rare (Negative) HPF Urine Casts Negative (Negative) LPF Urine Mucus Trace (Negative) Ur Culture Indicated? No Urine Glucose Negative (Negative) mg/dL Urine Opiates Screen Negative (Negative) Urine Methadone Screen Negative (Negative) Ur Barbiturates Screen Positive A (Negative) Ur Tricyclics Screen Negative (Negative) Ur Amphetamines Screen Negative (Negative) U Benzodiazepines Scrn Negative (Negative) Urine Cocaine Screen Positive A (Negative) Ur THC Screen Negative (Negative) Hep Bs Antigen Pending Hep Bs Antibody Pending Hep Bs Antibody, Quant Pending Hep B Core Total Ab Pending Hepatitis C Antibody Pending 11/09/23 11/09/23 Range/Units 15:45 12:55 WBC (4.4-10.8) 10^3/uL RBC (3.93-5.22) 10^6/uL Hgb (11.2-15.7) g/dL Hct (36.0-46.0) % MCV (80-95) fL MCH (27.0-33.0) pg MCHC (32.0-36.0) % RDW (11.7-14.6) % Plt Count (130-400) 10^3/uL MPV (8.0-11.0) fL Immature Gran % % Neutrophils % % Lymphocytes % % Monocytes % % Eosinophils % % Basophils % % Nucleated RBC % (0.0-0.3) % Absolute Neutrophils (1.2-6.7) 10^3/uL Absolute Lymphocytes (1.2-3.4) 10^3/uL Absolute Monocytes (0.1-0.8) 10^3/uL Absolute Eosinophils (0.0-0.7) 10^3/uL Absolute Basophils (0.0-0.2) 10^3/uL VBG pH 7.47 H (7.31-7.41) VBG pCO2 43 (41-51) mmHg VBG pO2 48 mmHg VBG HCO3 31 H (23-28) mmol/L VBG Total CO2 28 (24-29) mmol/L VBG O2 Saturation 83 % VBG Base Excess 7 H (-2-3) mmol/L VBG Lactate 2.8 H* (0.6-1.4) mmol/L Sodium 135 L (136-145) mmol/L Potassium 3.0 L 3.2 L (3.5-5.1) mmol/L Chloride 97 L (98-107) mmol/L Carbon Dioxide 31.1 (21.0-32.0) mmol/L Anion Gap 6.9 (3-11) mmol/L BUN 11 (7-18) mg/dL Creatinine 0.7 (0.55-1.02) mg/dL Est GFR (CKD-EPI 2020) 112.05 (mL/min/1.73m2) Glucose 95 (74-106) mg/dL Calcium 8.8 (8.5-10.1) mg/dL Phosphorus (2.6-4.7) mg/dL Magnesium (1.8-2.4) mg/dL Total Bilirubin (0.2-1.0) mg/dL AST (15-37) U/L ALT (14-59) U/L Alkaline Phosphatase (46-116) U/L Total Protein (6.4-8.2) g/dL Albumin (3.4-5.0) g/dL Urine Color (Yellow) Urine Clarity (Clear) Urine pH (5-8) Ur Specific [place] (1.005-1.025) Urine Protein (Neg-Trace) mg/dL Urine Ketones (Negative) mg/dL Urine Blood (Negative) Urine Nitrite (Negative) Urine Bilirubin (Negative) Urine Urobilinogen (Up to 0.2) mg/dL Ur Leukocyte Esterase (Negative) Urine RBC (0-2) HPF Urine WBC (0-5) HPF Ur Epithelial Cells (Negative) HPF Urine Crystals (Negative) HPF Urine Bacteria (Negative) HPF Urine Casts (Negative) LPF Urine Mucus (Negative) Ur Culture Indicated? Urine Glucose (Negative) mg/dL Urine Opiates Screen (Negative) Urine Methadone Screen (Negative) Ur Barbiturates Screen (Negative) Ur Tricyclics Screen (Negative) Ur Amphetamines Screen (Negative) U Benzodiazepines Scrn (Negative) Urine Cocaine Screen (Negative) Ur THC Screen (Negative) Hep Bs Antigen Hep Bs Antibody Hep Bs Antibody, Quant Hep B Core Total Ab Hepatitis C Antibody [id number] Documentation POC Urine Test Start: 11/09/23 06:26 Freq: .Urine Test Status: Complete Protocol: Activity Type Activity Date Activity User E-sign Co-sign Detail Recorded Client Recorded Date Recorded By Document 11/09/23 07:49 DUSTY [id number] 11/09/23 07:52 DUSTY Intake and Output - 24 Hour Total 11/09/23 06:16 thru 11/10/23 10:30 Intake Total 1950.7484 Output Total 925 Balance 1025.7484 Weight 54.9 kg Intake: IV 889.7484 Oral 1061 Output: Urine 925 Other: Urine Color Light K[place] Urine Appearance Cloudy Comment briceño catheter, intact draining urine Urinary Catheter Urinary Catheter Date of 11/09/23 Insertion [Uretheral (Briceño)] Time of insertion [Uretheral ( 16:00 Briceño)] Falls Risk Assessment History of Falls Previous History 11/09/23 12:40 Contributing Factors Impairments 11/09/23 12:40 Ambulatory Aids Uses ambulatory device 11/09/23 12:40 Tubes/Lines W/no contributing factors 11/09/23 12:40 Gait Evaluation W/no contributing factors 11/09/23 12:40 Cognition No cognitive impairment 11/09/23 06:27 Fall Total Score 53 11/09/23 12:40 Level of Risk High Risk 11/09/23 12:40 Problems (Last Reviewed 11/09/23 @ 18:36 by Earnest Coliler MD) Discharge planning issues (Acute) Acquired hyperbilirubinemia (Acute) Thrombocytopenia (Chronic) Opioid use disorder (Acute) DVT prophylaxis (Acute) Hypokalemia (Acute) Lactic acidosis (Acute) Hypomagnesemia (Acute) Alcohol withdrawal syndrome (Acute) v v v v v v v v v Sending and/or Receiving Nurses: Please use comment section below to note any information pertinent to the patient hand-off not included above. Information / Comments: Report taken from Nurse Teri in ICU, patient is AO x 4, bilateral below the knee amputee. able to transfer from bed to her own home wheelchair independently., profuse sweating noted. IJ on right neck drsg reinforced twice. CIWA started. Seizure precaution observed. Report received from:
[2023-11-11 04:36] VITALS: BP 108/78; PULSE 79; RESP 18; TEMP 36.1; O2SAT 99
[2023-11-11] MEDS: Gabapentin 300 MG CAP PO (08:02)
[2023-11-11] MEDS: Buprenorphine/Naloxone 8 mg/2 mg FILM 2 EACH SL (08:02)
[2023-11-11] MEDS: Multivitamin TAB 1 TAB PO (08:02)
[2023-11-11] MEDS: Pantoprazole 40 MG TABCR PO (08:02)
[2023-11-11] MEDS: NIFEdipine-CR 30 MG TABCR PO (08:02)
[2023-11-11] MEDS: Thiamine 100 MG TAB PO (08:02)
[2023-11-11] MEDS: Folic Acid 1 MG TAB PO (08:03)
[2023-11-11] MEDS: Normal Saline Flush 10 ML SYR IVP (08:41)
--- NOTE | 2023-11-11 08:59 | W.PM.DS.N ---
Date of service: 11/11/23 Time of Service: 08:59 DS: Diagnosis Discharge Diagnosis (1) Alcohol withdrawal syndrome: Status: Acute Asessment and Plan: -Patient has had a total of 444 mg of phenobarbital during hospitalization -restarted her Suboxone for opioid use disorder -Patient is amenable to outpatient alcohol rehab counseling and a production recovery operator or AA. -She is also amenable to initiation of acamprosate which has been prescribed at discharge (2) Opioid use disorder: Status: Acute Asessment and Plan: Restarted suboxone as noted above (3) Hx of hepatitis C: (4) Thrombocytopenia: Status: Chronic Asessment and Plan: -Acquired thrombocytopenia from alcoholism. -Consider further outpatient workup of liver abnormalities (5) Acquired hyperbilirubinemia: Status: Acute (6) Lactic acidosis: Status: Acute Asessment and Plan: -secondary to EtOH use and alcoholic hepatitis -lactic levels decreased from admission (7) Hypomagnesemia: Status: Acute Asessment and Plan: -replaced (8) Hypokalemia: Status: Acute Asessment and Plan: -replaced Discharge Plan Disposition Patient Disposition: Home Condition: Good Discharge Details Reason For Visit: Acute Alcohol Withdrawal Admit Date/Time: 11/09/23 09:21 Admit Provider: Earnest Collier Attending Provider: Earnest Collier Primary Care Provider: Georgette Reza Hospital Course Hospital Course: Patient initially presented with signs and symptoms consistent with alcohol withdrawal as the patient drinks 3 to 424 ounce beers per day. She had been attempting to decrease her alcohol intake but was having significant withdrawal symptoms and did have history of withdrawal but without withdrawal seizures. She received IV phenobarbital during hospitalization and had significant improvement and resolution of her withdrawal symptoms. She expressed significant willingness and treatment to abstain from alcohol and after discussion with previous physician decided that she would start acamprosate 3 times daily. Ultimately, was determined on the morning of 11/11/2023 that the patient was stable for discharge home. Home Meds and New Rx's Prescriptions: New multivitamin [Multiple Vitamins] Tablet 1 tab PO QAM Qty: 30 0RF magnesium gluconate 27 mg magnesium (500 mg) Tablet 500 mg PO DAILY@1000 Qty: 30 0RF thiamine mononitrate (vit B1) [Vitamin B-1 (mononitrate)] 100 mg Tablet 100 mg PO QAM Qty: 30 0RF acamprosate 333 mg tablet,delayed release (DR/EC) 666 mg PO TID Qty: 180 0RF Rx Instructions: administer with mid-day and evening meals Continued pantoprazole 40 mg tablet,delayed release (DR/EC) 40 mg PO DAILY Qty: 90 3RF (DME) Prosthetic for left BKA See Rx Instructions .Route .MEDSUPPLY Qty: 1 0RF Rx Instructions: Please fit for and dispense prosthetic leg for left BKA. gabapentin 300 mg capsule 300 mg PO TID Qty: 90 2RF nifedipine 30 mg tablet extended release 30 mg PO DAILY Qty: 90 1RF ibuprofen 800 mg tablet 800 mg PO TID PRN (Reason: pain) Qty: 270 0RF buprenorphine-naloxone [Suboxone] 8-2 mg film 2 film sublingual DAILY Patient Comments: PLACE TWO FILMS UNDER THE TONGUE EVERY DAY For 2 days confirmed with Radha Riddle 11/09/23 Discharge Instructions Instructions: Alcohol Use Disorder (DC) Referrals: Georgette Reza NP [Primary Care Provider] - (call the office on Sunday for follow in the next week) Activity:: Activity as Tolerated Equipment/Supplies:: No Equipment Needed Diet:: Normal Diet Discharge Orders Discharge Orders: Discharge Order (Routine); Ordered 11/11/23 Ordered By: Emir Godinez DS: Summary Time Spent with Patient providing and/or coordinating discharge services: Greater than 30 minutes Status at Discharge Functional status at discharge: independent ambulation Overall status at discharge: patient is back to baseline Mental Status: mental status grossly normal Speech and Movement: speech and movement normal Mood: congruent mood Affect: normal affect Quality:SDOH Health Related Social Needs: No Data to Display Exam Narrative Exam Narrative: Well-appearing female, appears older than stated age, laying in bed in no acute distress, ANO x 4, heart regular rhythm, lungs clear to auscultation bilaterally, abdomen soft, nontender, nondistended, status post bilateral BKA Psych Mental Status: mental status grossly normal Speech and Movement: speech and movement normal Mood: congruent mood Affect: normal affect DS: Data Vitals/I&O Vitals and I&O: Vital Signs Temperature 97.0 F L 11/11/23 04:36 Temperature Source Temporal Artery Scan 11/11/23 04:36 Pulse 79 11/11/23 04:36 Pulse Rhythm Regular 11/11/23 08:18 Pulse 90 11/10/23 09:00 Respiratory Rate 18 11/11/23 04:36 Respiratory Effort Normal 11/11/23 08:18 Respiratory Depth Normal 11/11/23 08:18 Respiratory Pattern Normal 11/11/23 08:18 Blood Pressure 108/78 11/11/23 04:36 Blood Pressure Mean 111 11/10/23 09:00 Blood Pressure Position Sitting 11/09/23 16:51 Pulse Oximetry 99 11/11/23 04:36 Respiratory End-tidal CO2 33 11/09/23 23:01 Oxygen Delivery Method Room Air 11/11/23 04:36 Oxygen Flow Rate 0 11/11/23 04:36 Pain Level 0 11/10/23 15:36 Comment RN Notified 11/10/23 19:35 Intake & Output 11/10/23 11/11/23 11/11/23 17:59 05:59 17:59 Intake Total 720 / 720 1000 / 1000 Output Total 800 / 800 1350 / 2150 Balance -80 / -80 -1350 / -1430 1000 / 1000 Intake: IV 1000 / 1000 Oral 720 / 720 Output: Urine 800 / 800 1350 / 2150 Other: Urine Color Straw Yellow Urine Appearance Clear Cloudy Cloudy Comment briceño catheter, intact draining urine Data Completed and Pending Labs on day of discharge: Labs from last 24 hours 11/10/23 09:20 VBG Lactate 1.3 PFSH All Active Problems (Updated 11/10/23 @ 16:40 by Earnest Collier MD) Discharge planning issues (Acute) Acquired hyperbilirubinemia (Acute) Thrombocytopenia (Chronic) Opioid use disorder (Acute) DVT prophylaxis (Acute) Hypokalemia (Acute) Lactic acidosis (Acute) Hypomagnesemia (Acute) Alcohol withdrawal syndrome (Acute) Encounter for counseling regarding contraception (Acute) Possible exposure to STI (Acute) Abdominal aneurysm, ruptured (Acute) Encounter for screening examination for sexually transmitted disease (Acute) Abscess of right thigh (Acute) Leg wound, right (Acute) Anemia (Chronic) Gangrene of left foot (Acute) Retained foreign body (Acute) Vulvar cellulitis (Acute) History of herpes genitalis (Acute) Vulvar pain (Acute) Open wound of finger of right hand (Acute) Cellulitis of toe of left foot (Acute) Abnormal finding on imaging (Acute) Abnormal MRI (Acute) Dysuria (Acute) 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 [facility] has [facility] at [facility] in [place] for consideration of termination History of intravenous drug abuse (Acute) Cellulitis of left lower extremity (Acute) Poor intravenous access (Acute) Chronic infection as complication of amputation (Acute) Heart murmur (Acute) Hypotension (Chronic) Petechial rash (Acute) Acute on chronic anemia (Acute) Osteomyelitis of right lower extremity (Chronic) DVT, lower extremity, distal, acute (Acute) 10/24 2018 left lower extremity. Rx with Eliquis. Abnormal uterine bleeding (AUB) (Acute) On. Set 10/24/2018 heavy flow coinciding with initiation of Eliquis Normocytic hypochromic anemia (Acute) 10/26/2018 hemoglobin 8.2 MCV 83 Medical History Tenosynovitis of finger Leg wound, right Cellulitis of finger of right hand Endometriosis Raynaud disease Hx of hepatitis C AB +. No viral load. Hx of opioid abuse Currently in treatment at [facility]. Suboxone. Surgical History History of transesophageal echocardiography (YG) negative Retained foreign body L groin, s/p unsuccessful exploratory surgery H/O hand surgery contracted post-op Complete below knee amputation of right lower extremity 2018. 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 [facility]. 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 Family History Father Diabetes Paternal Grandfather Diabetes Paternal Aunt Diabetes Maternal Grandmother Breast cancer Maternal Aunt Multiple sclerosis Social History Smoking/Tobacco Use Status: Never Smoking risk assessment performed?: Yes Alcohol Intake: current Alcohol Intake frequency: 3 or more drinks per day Alcohol type: beer and hard liquor Drug use: Current Sobriety Substance use type: former substance user, crack/cocaine, heroin and methamphetamine Details: former cocaine (snorted, smoked, IV) and heroin use (IV), as well as crystal meth (IV). Patient is currently enrolled at [facility], on suboxone Household members: children and other Details: Patient resides at her sister's house with her daughter Housing: apartment Number of Children: 1 current occupation: Unemployed Sexually active: Yes Do you think of yourself as: straight/heterosexual Current gender identity: female Seatbelt use: always Do you feel safe at home: Yes (new restraining order on ) Do you feel safe in your relationship?: No Additional Social history: Ambulates with crutches - 2 falls recently Time Spent with Patient Time Spent with Patient: <45 minutes Time was spent: preparing to see the patient(eg.review tests), obtaining and/or reviewing separately otained hiistory, ordering medications,tests, procedures, referring, communicating with other health special needs caregiver, indepentently interpreting results, counseling the patient and care coordination
--- NOTE | 2023-11-11 09:01 | PDOC.CMDIS ---
Date of service: 11/11/23 Time of Service: 09:01 LACE Index Scoring Tool Questions: Length of Stay (in days): 2 Was the patient admitted via the E.D.?: Yes E.D. Visits: 5 Answers: Total Score: 9 Risk of Readmission: Low Risk Care Management Discharge Plan Reason for Hospitalization: Alcohol Withdrawal Discharge Plan: Lindsay is discharged home via private vehicle with family. Recommendation is to follow up with community support and resources as discussed with [facility] Sc[facility] Technologist on 11/10/23. Lindsay is encouraged to follow up with community providers and her discharge plan of care as instructed. Lindsay is encouraged to call her PCP on Sunday to schedule a hospital follow up. Patient/Family Education Needs: Review discharge instructions, limitations and plan to follow up with community providers. Discuss ask me three and goals of self care. SDOH Health Related Social Needs: No Data to Display
[2023-11-12 12:50] LABS: HBs Antibody, Qual Positive (See Note); HBs Antibody, Quant >1000.0 mIU/mL (See Note); Hepatitis B Core Antibody Negative (Negative); Hepatitis B surface Ag Negative (Negative); Hepatitis C Ab w Rflx HCV PCR Reactive (Negative)
[2023-11-14 12:11] LABS: HCV RNA Qualitative Undetected (Undetected)
== END 2023-11-11 10:27 | disposition home or self-care (01) | DRG 897 ==
LOC: ER 09:42 → ICU 11-10 09:10 → MS 11-10 09:55
PROVIDERS: Student in an Organized Health Care Education/Training Program; Admitting Provider Internal Medicine; Emergency Provider Student in an Organized Health Care Education/Training Program; PCP Nurse Practitioner; Visit Provider Internal Medicine
DX: F10.239 Alcohol dependence with withdrawal, unspecified (principal); E87.20 Acidosis, unspecified; F11.20 Opioid dependence, uncomplicated; E83.42 Hypomagnesemia; E87.6 Hypokalemia; Z89.511 Acquired absence of right leg below knee; F14.91 Cocaine use, unspecified, in remission; F15.91 Other stimulant use, unspecified, in remission; I10 Essential (primary) hypertension; D64.9 Anemia, unspecified; Z86.718 Personal history of other venous thrombosis and embolism; D69.59 Other secondary thrombocytopenia; E80.6 Other disorders of bilirubin metabolism; Z86.19 Personal history of other infectious and parasitic diseases
CPT/HCPCS: 36556; 76937; 00123; 36415; 36573; 36592; 77001; 80048; 80053; 80307; 81025; 82805; 85027; 86704; 86706; 86803; 87340; 87522; 93005; 96361; 96365; 96375; 99291; J1650; 80320; 81003; 81015; 83605; 83735; 84100; 84132; 84702; 85025; 93010; 99222; 99231; 99238; J2003; J2060; J2560; J3475; J3480

== ENCOUNTER 2023-11-16 13:50 | Emergency (ER) | payer MEDICARE, MEDICAID, SELFPAY ==
[2023-11-16 14:06] VITALS: BP 118/82; PULSE 85; RESP 16; TEMP 37.1; O2SAT 99
--- NOTE | 2023-11-16 14:24 | W.ORTHOCONSU ---
Date of service: 11/16/23 Time of Service: 14:24 Assessment and Plan Assessment and plan (1) Chronic osteomyelitis of toe of left foot: Status: Acute Assessment and plan: Discussed with ER Dr. Landeros. Agree with plan for podiatry management, likely surgery next week. PFSH All Active Problems (Updated 11/16/23 @ 14:25 by Zeferino Mccann MD) Chronic osteomyelitis of toe of left foot (Acute) Acquired hyperbilirubinemia (Acute) Thrombocytopenia (Chronic) Opioid use disorder (Acute) Hypomagnesemia (Acute) Alcohol withdrawal syndrome (Acute) Encounter for counseling regarding contraception (Acute) Possible exposure to STI (Acute) Abdominal aneurysm, ruptured (Acute) Encounter for screening examination for sexually transmitted disease (Acute) Abscess of right thigh (Acute) Leg wound, right (Acute) Anemia (Chronic) Gangrene of left foot (Acute) Retained foreign body (Acute) Vulvar cellulitis (Acute) History of herpes genitalis (Acute) Vulvar pain (Acute) Open wound of finger of right hand (Acute) Cellulitis of toe of left foot (Acute) Abnormal finding on imaging (Acute) Abnormal MRI (Acute) Dysuria (Acute) 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 Patient has appointment at [facility] in [place] for consideration of termination History of intravenous drug abuse (Acute) Cellulitis of left lower extremity (Acute) Poor intravenous access (Acute) Chronic infection as complication of amputation (Acute) Heart murmur (Acute) Hypotension (Chronic) Petechial rash (Acute) Acute on chronic anemia (Acute) Osteomyelitis of right lower extremity (Chronic) DVT, lower extremity, distal, acute (Acute) 10/24 2018 left lower extremity. Rx with Eliquis. Abnormal uterine bleeding (AUB) (Acute) On. Set 10/24/2018 heavy flow coinciding with initiation of Eliquis Normocytic hypochromic anemia (Acute) 10/26/2018 hemoglobin 8.2 MCV 83 Medical History Tenosynovitis of finger Leg wound, right Cellulitis of finger of right hand Endometriosis Raynaud disease Hx of hepatitis C AB +. No viral load. Hx of opioid abuse Currently in treatment at [facility]. Suboxone. Surgical History History of transesophageal echocardiography (YG) negative Retained foreign body L groin, s/p unsuccessful exploratory surgery H/O hand surgery contracted post-op Complete below knee amputation of right lower extremity 2018. 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 [facility]. 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 Family History Father Diabetes Paternal Grandfather Diabetes Paternal Aunt Diabetes Maternal Grandmother Breast cancer Maternal Aunt Multiple sclerosis Social History Smoking/Tobacco Use Status: Never Smoking risk assessment performed?: Yes Alcohol Intake: current Alcohol Intake frequency: 3 or more drinks per day Alcohol type: beer and hard liquor Drug use: Current Sobriety Substance use type: former substance user, crack/cocaine, heroin and methamphetamine Details: former cocaine (snorted, smoked, IV) and heroin use (IV), as well as crystal meth (IV). Patient is currently enrolled at [facility], on suboxone Household members: children and other Details: Patient resides at her sister's house with her daughter Housing: apartment Number of Children: 1 current occupation: Unemployed Sexually active: Yes Do you think of yourself as: straight/heterosexual Current gender identity: female Seatbelt use: always Do you feel safe at home: Yes (new restraining order on ) Do you feel safe in your relationship?: No Additional Social history: Ambulates with crutches - 2 falls recently Results Last Vital Signs Temp 98.8 F 11/16/23 14:06 Pulse 85 11/16/23 14:06 Resp 16 11/16/23 14:06 BP 118/82 11/16/23 14:06 Pulse Ox 99 11/16/23 14:06
[2023-11-16 16:35] VITALS: BP 113/91; PULSE 74; RESP 16; O2SAT 98
== END 2023-11-16 17:24 | disposition left against medical advice (07) ==
PROVIDERS: PCP Nurse Practitioner
DX: Z53.21 Procedure and treatment not carried out due to patient leaving prior to being seen by health care provider (principal)

== ENCOUNTER 2023-11-17 10:31 | Emergency (ER) | payer MEDICARE, MEDICAID, SELFPAY ==
[2023-11-17 10:36] VITALS: BP 131/76; PULSE 87; TEMP 37.2; O2SAT 99
--- NOTE | 2023-11-17 10:53 | ED.GENADUL_ITS ---
Discharge Plan Disposition Patient Disposition: Home Condition: Stable Discharge Details Clinical Impression: Blister Primary Care Provider: Georgette Reza ED Provider: Kraig Armando Home Meds and New Rx's Prescriptions: New cephalexin 500 mg capsule 500 mg PO TID 5 Days Qty: 15 0RF No Action pantoprazole 40 mg tablet,delayed release (DR/EC) 40 mg PO DAILY Qty: 90 3RF (DME) Prosthetic for left BKA See Rx Instructions .Route .MEDSUPPLY Qty: 1 0RF Rx Instructions: Please fit for and dispense prosthetic leg for left BKA. gabapentin 300 mg capsule 300 mg PO TID Qty: 90 2RF nifedipine 30 mg tablet extended release 30 mg PO DAILY Qty: 90 1RF ibuprofen 800 mg tablet 800 mg PO TID PRN (Reason: pain) Qty: 270 0RF buprenorphine-naloxone [Suboxone] 8-2 mg film 2 film sublingual DAILY Patient Comments: PLACE TWO FILMS UNDER THE TONGUE EVERY DAY For 2 days confirmed with Radha Riddle 11/09/23 multivitamin [Multiple Vitamins] Tablet 1 tab PO QAM Qty: 30 0RF magnesium gluconate 27 mg magnesium (500 mg) Tablet 500 mg PO DAILY@1000 Qty: 30 0RF thiamine mononitrate (vit B1) [Vitamin B-1 (mononitrate)] 100 mg Tablet 100 mg PO QAM Qty: 30 0RF acamprosate 333 mg tablet,delayed release (DR/EC) 666 mg PO TID Qty: 180 0RF Rx Instructions: administer with mid-day and evening meals Discharge Instructions Instructions: Blisters Additional Instructions: Please discard prescription if your knee is improving on its own, begin to take antibiotic if you notice increased redness and warmth to the area, please return to the emergency department for any worsening symptoms for reevaluation HPI General Date/Time Provider Initiated Documentation: 11/17/23 10:34 . HPI Narrative: 42-year-old female history of bilateral below the knee amputations presents with pain and redness to anterior aspect of left knee over the last 4 days, patient does occasionally ambulate on her distal lower extremities, denies fevers chills nausea vomiting or systemic signs of illness Related Data Home Medications ?Medication ?Instructions ?Recorded ?Confirmed buprenorphine 8 mg-naloxone 2 mg 2 film sublingual DAILY 05/10/22 11/09/23 sublingual film (Suboxone) ibuprofen 800 mg tablet 800 mg PO TID PRN pain #270 tabs 03/28/23 11/09/23 Prosthetic for left BKA #1 ea 10/23/23 11/09/23 gabapentin 300 mg capsule 300 mg PO TID #90 caps 10/23/23 11/09/23 nifedipine 30 mg tablet,extended 30 mg PO DAILY #90 tabs 10/23/23 11/09/23 release pantoprazole 40 mg tablet,delayed 40 mg PO DAILY #90 tabs 10/23/23 11/09/23 release acamprosate 333 mg tablet,delayed 666 mg (2 x 333 mg) PO TID #180 11/10/23 release tabs magnesium gluconate 27 mg 500 mg (18.5185 x 27 mg magnesium 11/10/23 magnesium (500 mg) tablet (500 mg)) PO DAILY@1000 #30 tabs multivitamin (Multiple Vitamins 1 tab PO QAM #30 tabs 11/10/23 tablet) thiamine mononitrate (vit B1) 100 100 mg PO QAM #30 tabs 11/10/23 mg tablet (Vitamin B-1 (mononitrate)) cephalexin 500 mg capsule 500 mg PO TID 5 days #15 caps 11/17/23 Previous Rx's ?Medication ?Instructions ?Recorded ibuprofen 800 mg tablet 800 mg PO TID PRN pain #270 tabs 03/28/23 Prosthetic for left BKA #1 ea 10/23/23 gabapentin 300 mg capsule 300 mg PO TID #90 caps 10/23/23 nifedipine 30 mg tablet,extended 30 mg PO DAILY #90 tabs 10/23/23 release pantoprazole 40 mg tablet,delayed 40 mg PO DAILY #90 tabs 10/23/23 release acamprosate 333 mg tablet,delayed 666 mg (2 x 333 mg) PO TID #180 11/10/23 release tabs magnesium gluconate 27 mg 500 mg (18.5185 x 27 mg magnesium 11/10/23 magnesium (500 mg) tablet (500 mg)) PO DAILY@1000 #30 tabs multivitamin (Multiple Vitamins 1 tab PO QAM #30 tabs 11/10/23 tablet) thiamine mononitrate (vit B1) 100 100 mg PO QAM #30 tabs 11/10/23 mg tablet (Vitamin B-1 (mononitrate)) cephalexin 500 mg capsule 500 mg PO TID 5 days #15 caps 11/17/23 Allergies Allergy/AdvReac Type Severity Reaction Status Date / Time No Known Allergies Allergy Verified 11/17/23 10:40 General Stated Complaint: Cellulitis LEIF: 3 Exam Narrative Exam Narrative: Left lower extremity: Small clear serous blister approximately 2 cm in diameter with localized callus and mild induration to prepatellar soft tissue, no fluctua nce no purulence no crepitus, full range of motion flexion extension of knee without pain warm well-perfused extremity Course Vital Signs Vital signs: Vital Signs Temperature 37.2 C 11/17/23 10:36 Pulse 87 11/17/23 10:36 Blood Pressure 131/76 11/17/23 10:36 Pulse Oximetry 99 11/17/23 10:36 Temperature 37.2 C 11/17/23 10:36 Temperature Source Oral 11/17/23 10:36 Pulse 87 11/17/23 10:36 Blood Pressure 131/76 11/17/23 10:36 Blood Pressure Position Sitting 11/17/23 10:36 Pulse Oximetry 99 11/17/23 10:36 Oxygen Delivery Method Room Air 11/17/23 10:36 Oxygen Flow Rate 0 11/17/23 10:36 Pain Level 3 11/17/23 10:36 Comment pain increases with any pressure applied 11/17/23 10:36 Medical Decision Making 42-year-old female history of bilateral below the knee amputations presents with pain and redness to anterior aspect of left knee over the last 4 days, patient does occasionally ambulate on her distal lower extremities, denies fevers chills nausea vomiting or systemic signs of illness. Left lower extremity: Small clear serous blister approximately 2 cm in diameter with localized callus and mild induration to prepatellar soft tissue, no fluctuance no purulence no crepitus, full range of motion flexion extension of knee without pain warm well-perfused extremity; likely localized blister and callus formation from mechanical use, no evidence of abscess cellulitis or septic joint on history and physical. Patient would like a wait and see prescription in case she does develop signs of infection, will write paper prescription for Keflex to be torn up and discarded if localized irritation self resolves. Home care instructions and strict return precautions were given Quality:SDOH Health Related Social Needs: No Data to Display PFSH All Active Problems (Updated 11/17/23 @ 10:58 by Kraig Armando MD) Blister (Acute) Chronic osteomyelitis of toe of left foot (Acute) Acquired hyperbilirubinemia (Acute) Thrombocytopenia (Chronic) Opioid use disorder (Acute) Hypomagnesemia (Acute) Alcohol withdrawal syndrome (Acute) Encounter for counseling regarding contraception (Acute) Possible exposure to STI (Acute) Abdominal aneurysm, ruptured (Acute) Encounter for screening examination for sexually transmitted disease (Acute) Abscess of right thigh (Acute) Leg wound, right (Acute) Anemia (Chronic) Gangrene of left foot (Acute) Retained foreign body (Acute) Vulvar cellulitis (Acute) History of herpes genitalis (Acute) Vulvar pain (Acute) Open wound of finger of right hand (Acute) Cellulitis of toe of left foot (Acute) Abnormal finding on imaging (Acute) Abnormal MRI (Acute) Dysuria (Acute) 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 Patient has appointment at [facility] in [place] for consideration of termination History of intravenous drug abuse (Acute) Cellulitis of left lower extremity (Acute) Poor intravenous access (Acute) Chronic infection as complication of amputation (Acute) Heart murmur (Acute) Hypotension (Chronic) Petechial rash (Acute) Acute on chronic anemia (Acute) Osteomyelitis of right lower extremity (Chronic) DVT, lower extremity, distal, acute (Acute) 10/24 2018 left lower extremity. Rx with Eliquis. Abnormal uterine bleeding (AUB) (Acute) On. Set 10/24/2018 heavy flow coinciding with initiation of Eliquis Normocytic hypochromic anemia (Acute) 10/26/2018 hemoglobin 8.2 MCV 83 Medical History Tenosynovitis of finger Leg wound, right Cellulitis of finger of right hand Endometriosis Raynaud disease Hx of hepatitis C AB +. No viral load. Hx of opioid abuse Currently in treatment at [facility]. Suboxone. Surgical History History of transesophageal echocardiography (YG) negative Retained foreign body L groin, s/p unsuccessful exploratory surgery H/O hand surgery contracted post-op Complete below knee amputation of right lower extremity 2018. 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 [facility]. 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 Family History Father Diabetes Paternal Grandfather Diabetes Paternal Aunt Diabetes Maternal Grandmother Breast cancer Maternal Aunt Multiple sclerosis Social History Smoking/Tobacco Use Status: Never Smoking risk assessment performed?: Yes Alcohol Intake: current Alcohol Intake frequency: 3 or more drinks per day Alcohol type: beer and hard liquor Drug use: Current Sobriety Substance use type: former substance user, crack/cocaine, heroin and methamphetamine Details: former cocaine (snorted, smoked, IV) and heroin use (IV), as well as crystal meth (IV). Patient is currently enrolled at [facility], on suboxone Household members: children and other Details: Patient resides at her sister's house with her daughter Housing: apartment Number of Children: 1 current occupation: Unemployed Sexually active: Yes Do you think of yourself as: straight/heterosexual Current gender identity: female Seatbelt use: always Do you feel safe at home: Yes (new restraining order on ) Do you feel safe in your relationship?: No Additional Social history: Ambulates with crutches - 2 falls recently
[2023-11-17 11:16] VITALS: BP 131/76; PULSE 87; TEMP 37.2; O2SAT 99
--- NOTE | 2023-11-23 08:16 | NUR.NOTE ---
Nursing Note: this nurse in chart per marketing community liaison
== END 2023-11-17 11:16 | disposition home or self-care (01) ==
PROVIDERS: Emergency Provider Emergency Medicine; PCP Nurse Practitioner
DX: S80.222A Blister (nonthermal), left knee, initial encounter (principal); X50.0XXA Overexertion from strenuous movement or load, initial encounter; Z89.512 Acquired absence of left leg below knee; Z89.511 Acquired absence of right leg below knee
CPT/HCPCS: 99283

== ENCOUNTER 2023-12-13 02:20 | Outpatient (CLI) | payer MEDICARE, MEDICAID, SELFPAY ==
--- NOTE | 2023-12-13 14:52 | DI.RAD_ITS ---
Exam(s) XR KNEE LT 3V AP,LAT,ANTWAN EXAM: XR KNEE LT 3V AP,LAT,ANTWAN CLINICAL HISTORY: history infection,swelling lt knee, m25.462. TECHNIQUE: 2D digital imaging was performed. COMPARISON: CT CT LOWER EXTREMITY RT W from 03/14/2023 FINDINGS: 3 views There is left knee below-knee amputation. There is soft tissue swelling anteriorly over the patella. No patellar fracture nor displacement. Bone edges of the amputated proximal fibula and tibia appea r sharp with no evidence of osteomyelitis. No radiopaque foreign bodies evident. No significant kne e joint space narrowing and no knee joint effusion evident. IMPRESSION: Below-knee amputation. Prepatellar soft tissue swelling. No fractures. No evidence of osteomyeliti s. DATA REPOSITORY: RADIATION DOSE DELIVERED:
== END 2023-12-13 02:40 ==
LOC: DI 02:20
PROVIDERS: PCP Nurse Practitioner; Visit Provider Nurse Practitioner
DX: M25.462 Effusion, left knee (principal)
CPT/HCPCS: 73562

== ENCOUNTER 2024-05-13 11:46 | Outpatient (REF) | payer MEDICARE, MEDICAID, SELFPAY ==
--- NOTE | 2024-05-13 11:30 | PAPFT_PTH ---
PATIENT: Lindsay Odonnell LOC: [facility]#:[id number] AGE/SX: 43/F ROOM: RE05/13/[address]: Georgette Reza APRN : 1980 BED: DIS: 05/13/2024 SPEC #: [id number] RECD: 05/13/24 17:35 STATUS: SULEMAN REMitul #: [id number] VERNON: 05/13/24 11:[address]: Georgette Reza DEPT: [facility] Cytology RECD BY: Rakel Tejada Tissues: 1 - CX/ENDOCX FOR PAP SMEARS Procedures: PAP THIN PREP/[facility] Screening HPV DNA PROBE Comments: [id number] (HPV 16 & 18/45) (CHLAMYDIA/GC)
[2024-05-14 12:50] LABS: Chlamydia Result Negative (Negative); GC Result Negative (Negative)
== END 2024-05-13 11:47 | disposition home or self-care (01) ==
LOC: LBN 11:46
PROVIDERS: PCP Nurse Practitioner; Visit Provider Nurse Practitioner
DX: Z12.4 Encounter for screening for malignant neoplasm of cervix (principal); Z11.51 Encounter for screening for human papillomavirus (HPV)
CPT/HCPCS: 87491; 87591; 88142; 87624

== ENCOUNTER 2024-07-04 10:38 | Emergency (ER) | payer MEDICARE, MEDICAID, SELFPAY ==
[2024-07-04 10:41] VITALS: BP 109/70; PULSE 71; RESP 16; TEMP 36.4; O2SAT 99
[2024-07-04 10:44] VITALS: BP 109/70; PULSE 71; RESP 16; TEMP 36.4; O2SAT 99
[2024-07-04] MEDS: Budesonide/Formoterol 160/4.5 6 GM 60 PUFF INH IH (11:17)
--- NOTE | 2024-07-04 11:25 | W.ED.GENAD ---
Discharge Plan Disposition Patient Disposition: Home Condition: Good Discharge Details Clinical Impression: Cough Primary Care Provider: Georgette Reza ED Provider: Pavel Antunez Home Meds and New Rx's Prescriptions: New benzonatate 100 mg capsule 100 mg PO TID Qty: 30 0RF doxycycline hyclate 100 mg tablet 100 mg PO BID Qty: 20 0RF No Action pantoprazole 40 mg tablet,delayed release (DR/EC) 40 mg PO DAILY Qty: 90 3RF (DME) Prosthetic for left BKA See Rx Instructions .Route .MEDSUPPLY Qty: 1 0RF Rx Instructions: Please fit for and dispense prosthetic leg for left BKA. ibuprofen 800 mg tablet 800 mg PO TID PRN (Reason: pain) Qty: 270 3RF gabapentin 600 mg tablet 600 mg PO TID Qty: 270 3RF magnesium gluconate 27 mg magnesium (500 mg) tablet 500 mg PO DAILY@1000 Qty: 90 3RF nifedipine 30 mg tablet extended release 30 mg PO DAILY Qty: 90 3RF acamprosate 333 mg tablet,delayed release (DR/EC) 666 mg PO TID Qty: 180 6RF Rx Instructions: administer with mid-day and evening meals thiamine mononitrate (vit B1) [Vitamin B-1 (mononitrate)] 100 mg tablet 100 mg PO QAM Qty: 90 1RF (DME) Wheelchair See Rx Instructions .Route .MEDSUPPLY Qty: 1 0RF Rx Instructions: Please measure to fit properly. Patient's current wheelchair is to big with no brakes and broken seat. cephalexin 500 mg capsule 500 mg PO TID Qty: 21 0RF buprenorphine-naloxone [Suboxone] 8-2 mg film 2 film sublingual DAILY Patient Comments: PLACE TWO FILMS UNDER THE TONGUE EVERY DAY For 2 days confirmed with [facility] 11/09/23 multivitamin [Multiple Vitamins] Tablet 1 tab PO QAM Qty: 30 0RF Discharge Instructions Instructions: Cough, Adult ED Additional Instructions: At this time there is no evidence of pneumonia on your bedside ultrasound. I am concerned that your persistent cough may be from a reactivity from your previous infection. Please take the Tessalon Perles as a cough suppressant. This has been sent to your pharmacy on file. Please use the Symbicort inhaler, 2 puffs every 12 hours for the next 1 to 2 weeks. If your symptoms do not improve over the next week or you develop worsening of your symptoms this may represent the development of mild bronchitis or early pneumonia. Only utilize the antibiotic then. Otherwise he would not be beneficial to utilize any antibiotic coverage at this time. If you notice any worsening of your symptoms, or any new symptoms such as vomiting, diarrhea, fever, chills, shortness of breath, chest pain, numbness, weakness, or fainting , please return immediately to the emergency department for reevaluation. Please follow up with your primary care provider as soon as possible for reassessment and reevaluation. As always, it was a pleasure participating in your medical care today. Referrals: Georgette Reza NP [Primary Care Provider] - [facility] General Date/Time Provider Initiated Documentation: 07/04/24 10:42. 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 She did have a distant history of a DVT in the lower extremity secondary to drug use at the time. She presents today for evaluation of mild cough. Patient states that she developed an upper respiratory infection about a month ago, subsequently developed a mild productive cough after that this been lasting for the last few weeks. She does not use to pay any tobacco or vaping products. Cough is slightly productive with small amounts of sputum. No blood or hemoptysis. No pleuritic chest pain. No significant shortness of breath. She has been surprised that it is not resolved, and presents for evaluation and assessment for potential pneumonia. No other complaints at this time. No other modifying factors. Related Data Home Medications ?Medication ?Instructions ?Recorded ?Confirmed buprenorphine 8 mg-naloxone 2 mg 2 film sublingual DAILY 05/10/22 02/06/24 sublingual film (Suboxone) Prosthetic for left BKA #1 ea 10/23/23 02/06/24 pantoprazole 40 mg tablet,delayed 40 mg PO DAILY #90 tabs 10/23/23 02/06/24 release multivitamin (Multiple Vitamins 1 tab PO QAM #30 tabs 11/10/23 02/06/24 tablet) acamprosate 333 mg tablet,delayed 666 mg (2 x 333 mg) PO TID #180 12/11/23 02/06/24 release tabs thiamine mononitrate (vit B1) 100 100 mg PO QAM #90 tabs 12/11/23 02/06/24 mg tablet (Vitamin B-1 (mononitrate)) Wheelchair #1 ea 12/12/23 02/06/24 gabapentin 600 mg tablet 600 mg PO TID #270 tabs 02/06/24 02/06/24 ibuprofen 800 mg tablet 800 mg PO TID PRN pain #270 tabs 02/06/24 02/06/24 magnesium gluconate 27 mg 500 mg (18.5185 x 27 mg magnesium 02/06/24 02/06/24 magnesium (500 mg) tablet (500 mg)) PO DAILY@1000 #90 tabs nifedipine 30 mg tablet,extended 30 mg PO DAILY #90 tabs 05/13/24 05/13/24 release cephalexin 500 mg capsule 500 mg PO TID #21 caps 05/28/24 benzonatate 100 mg capsule 100 mg PO TID #30 caps 07/04/24 doxycycline hyclate 100 mg tablet 100 mg PO BID #20 tabs 07/04/24 Previous Rx's ?Medication ?Instructions ?Recorded Prosthetic for left BKA #1 ea 10/23/23 pantoprazole 40 mg tablet,delayed 40 mg PO DAILY #90 tabs 10/23/23 release multivitamin (Multiple Vitamins 1 tab PO QAM #30 tabs 11/10/23 tablet) acamprosate 333 mg tablet,delayed 666 mg (2 x 333 mg) PO TID #180 12/11/23 release tabs thiamine mononitrate (vit B1) 100 100 mg PO QAM #90 tabs 12/11/23 mg tablet (Vitamin B-1 (mononitrate)) Wheelchair #1 ea 12/12/23 gabapentin 600 mg tablet 600 mg PO TID #270 tabs 02/06/24 ibuprofen 800 mg tablet 800 mg PO TID PRN pain #270 tabs 02/06/24 magnesium gluconate 27 mg 500 mg (18.5185 x 27 mg magnesium 02/06/24 magnesium (500 mg) tablet (500 mg)) PO DAILY@1000 #90 tabs nifedipine 30 mg tablet,extended 30 mg PO DAILY #90 tabs 05/13/24 release cephalexin 500 mg capsule 500 mg PO TID #21 caps 01/29/25 benzonatate 100 mg capsule 100 mg PO TID #30 caps 07/04/24 doxycycline hyclate 100 mg tablet 100 mg PO BID #20 tabs 07/04/24 Allergies Allergy/AdvReac Type Severity Reaction Status Date / Time No Known Allergies Allergy Verified 05/13/24 11:24 General Stated Complaint: RespSymp LEIF: 4 Exam Narrative Exam Narrative: 1.Const: Well-nourished, Well-developed, appearing stated age 2.Eyes: PERRL, no conjunctival injection, and symmetrical lids. 3.ENT: Atraumatic external nose and ears. Moist MM. Neck: Symmetric, trachea midline, No thyromegaly. 4.CVS: +S1/S2, Peripheral pulses 2+ and equal in all extremities. Brisk capillary refill in all extremities. 5.RESP: Unlabored respiratory effort. Clear to auscultation bilaterally. No wheezes rales or rhonchi 6.GI: Soft, Nontender/Nondistended, No hepatosplenomegaly. No guarding or rebound. 7.MSK: Normocephalic/Atraumatic, Extremities w/o deformity or ttp No cyanosis or clubbing, Normal movement of all extremities. Right knee demonstrates a small amount of swelling, no atypical or localized redness to suggest cellulitis. No focal tenderness. 8.Skin: Warm, Dry. No rashes or lesions. 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 Sensation grossly intact, no focal neurologic deficits. 10.Psych: (AAO) x3. Appropriate mood and affect Course Vital Signs Vital signs: Vital Signs Temperature 36.4 C L 07/04/24 10:41 Pulse 71 07/04/24 10:41 Respiratory Rate 16 07/04/24 10:41 Blood Pressure 109/70 07/04/24 10:41 Pulse Oximetry 99 07/04/24 10:41 Temperature 36.4 C L 07/04/24 10:44 Pulse 71 07/04/24 10:44 Respiratory Rate 16 07/04/24 10:44 Respiratory Effort Normal 07/04/24 11:11 Respiratory Depth Normal 07/04/24 11:11 Blood Pressure 109/70 07/04/24 10:44 Blood Pressure Position Sitting 07/04/24 10:44 Pulse Oximetry 99 07/04/24 10:44 Oxygen Delivery Method Room Air 07/04/24 10:44 Oxygen Flow Rate 0 07/04/24 10:44 Medical Decision Making This is a pleasant 43-year-old female with a past medical history of 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 She did have a distant history of a DVT in the lower extremity secondary to drug use at the time. She presents today for evaluation of mild cough. Patient states that she developed an upper respiratory infection about a month ago, subsequently developed a mild productive cough after that this been lasting for the last few weeks. She does not use to pay any tobacco or vaping products. Cough is slightly productive with small amounts of sputum. No blood or hemoptysis. No pleuritic chest pain. No significant shortness of breath. She has been surprised that it is not resolved, and presents for evaluation and assessment for potential pneumonia. No other complaints at this time. No other modifying factors. Exam demonstrates well-appearing female, stable vital signs, lungs are clear on exam. Bedside ultrasound demonstrates what might be very early bronchitis but no evidence of localized pneumonia. No significant B-lines or consolidations. Patient otherwise demonstrates notable hemodynamic and clinical stability. Suspect continued cough from either mild bronchitis versus mild reactive airway. Symptoms appear inconsistent with pneumonia. Will give Tessalon Perles and a Symbicort inhaler for home use. The patient still has continued cough or develops fever or worsening of her symptoms over the next week, then it may be prudent to transition to antibiotic therapy. Discussed red flags for which to return. I have extensively reviewed the treatment plan and discharge instructions with the patient. I have addressed all patient concerns at this time. The patient was made aware of what symptoms to monitor for that would warrant a return to the emergency department. Discussed the plan with the patient, they demonstrate verbal understanding and agreement with our assessment and plan at this time. The documentation in this chart was dictated using [employer] dictation software. Please excuse any dictation errors. Quality:SDOH Health Related Social Needs: No Data to Display PFSH All Active Problems (Updated 07/04/24 @ 11:25 by Pavel Antunez DO) Cough (Acute) Amputation leg, bilat (Acute) Bilateral hand pain (Acute) 01/01/24 Orthopaedics Chronic osteomyelitis of toe of left foot (Acute) Acquired hyperbilirubinemia (Acute) Thrombocytopenia (Chronic) Opioid use disorder (Acute) Alcohol withdrawal syndrome (Acute) Encounter for counseling regarding contraception (Acute) Possible exposure to STI (Acute) Abdominal aneurysm, ruptured (Acute) Encounter for screening examination for sexually transmitted disease (Acute) Abscess of right thigh (Acute) Leg wound, right (Acute) Anemia (Chronic) Gangrene of left foot (Acute) Retained foreign body (Acute) Vulvar cellulitis (Acute) History of herpes genitalis (Acute) Vulvar pain (Acute) Open wound of finger of right hand (Acute) Cellulitis of toe of left foot (Acute) Abnormal finding on imaging (Acute) Abnormal MRI (Acute) Dysuria (Acute) 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 Patient has appointment at [facility] in [place] for consideration of termination History of intravenous drug abuse (Acute) Cellulitis of left lower extremity (Acute) Poor intravenous access (Acute) Chronic infection as complication of amputation (Acute) Heart murmur (Acute) Hypotension (Chronic) Petechial rash (Acute) Acute on chronic anemia (Acute) Osteomyelitis of right lower extremity (Chronic) DVT, lower extremity, distal, acute (Acute) 10/24 2018 left lower extremity. Rx with Eliquis. Abnormal uterine bleeding (AUB) (Acute) On. Set 10/24/2018 heavy flow coinciding with initiation of Eliquis Normocytic hypochromic anemia (Acute) 10/26/2018 hemoglobin 8.2 MCV 83 Medical History Tenosynovitis of finger Leg wound, right Cellulitis of finger of right hand Endometriosis Raynaud disease Hx of hepatitis C AB +. No viral load. Hx of opioid abuse Currently in treatment at [facility]. Suboxone. Surgical History H/O hand surgery contracted post-op History of transesophageal echocardiography (YG) negative Retained foreign body L groin, s/p unsuccessful exploratory surgery Complete below knee amputation of right lower extremity 2018. 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 [facility]. 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 Family History Father Diabetes Paternal Grandfather Diabetes Paternal Aunt Diabetes Maternal Grandmother Breast cancer Maternal Aunt Multiple sclerosis Social History (Updated 04/09/24 @ 13:47 by Laura Quigley LPN) Smoking/Tobacco Use Status: Never Smoking risk assessment performed?: Yes Alcohol Intake: former Year quit: 2023 Drug use: Current Sobriety Substance use type: former substance user, crack/cocaine, heroin and methamphetamine Details: former cocaine (snorted, smoked, IV) and heroin use (IV), as well as crystal meth (IV). Patient is currently enrolled at [facility], on suboxone 10/2024 quit drinking alcohol Household members: children and other Details: Patient resides at her sister's house with her daughter Housing: apartment Number of Children: 1 Communication Needs: None Education Level: college Details: 1 year of college Do you need help understanding health information?: Never current occupation: Unemployed, had 1 year of college Sexually active: Yes Do you think of yourself as: straight/heterosexual Current gender identity: female What is your relationship status?: How often do you talk on the phone with friends or family?: twice per week How often do you get together with friends or relatives?: once per week Panel score (0-1 are the most socially isolated patients): 1 What type of physical activity do you participate in: other Duration: 30-45 minutes/day Frequency: daily Seatbelt use: always Water heater temp set <120 deg: Yes Working smoke detector in home: Yes Carbon monox detector in home: Yes Do you feel safe at home: Yes (new restraining order on ) Do you feel safe in your relationship?: No Additional Social history: Ambulates with crutches - 2 falls recently
[2024-07-04 11:27] VITALS: BP 106/71; PULSE 71; RESP 20; O2SAT 99
== END 2024-07-04 11:37 | disposition home or self-care (01) ==
PROVIDERS: Emergency Provider Student in an Organized Health Care Education/Training Program; PCP Nurse Practitioner
DX: R05.9 Cough, unspecified (principal); M25.561 Pain in right knee; Z89.512 Acquired absence of left leg below knee; Z86.718 Personal history of other venous thrombosis and embolism
CPT/HCPCS: 99284; 99283

== ENCOUNTER 2024-08-14 20:31 | Emergency (ER) | payer MEDICARE, MEDICAID, SELFPAY ==
[2024-08-14 20:39] VITALS: BP 133/93; PULSE 122; RESP 16; TEMP 36.7; O2SAT 98
--- NOTE | 2024-08-14 21:15 | NUR.NOTE ---
Nursing Note:pt in [facility] upset that there is not bed available without waiting, states she is not staying for treatment, she wants to leave. Nurse attempted redirection. pt called her father for ride to leave. wheeling self in and out of building calling her father stating are you almost here. using public phone to call. This nurse asked pt if she was sure she didnt want to be seen, pt states I dont want to be here this is fucking bullshit. aware.
== END 2024-08-14 22:09 | disposition left against medical advice (07) ==
LOC: ER 20:46
PROVIDERS: PCP Nurse Practitioner
DX: Z53.20 Procedure and treatment not carried out because of patient's decision for unspecified reasons (principal)

== ENCOUNTER 2024-10-09 07:48 | Emergency (ER) | payer MEDICARE, MEDICAID, SELFPAY ==
[2024-10-09 07:50] VITALS: BP 137/84; PULSE 74; RESP 15; TEMP 37.1; O2SAT 100
[2024-10-09 08:01] VITALS: BP 137/84; PULSE 74; RESP 15; O2SAT 100
[2024-10-09 08:05] VITALS: BP 137/84; PULSE 74; RESP 15; TEMP 37.1; O2SAT 100
--- NOTE | 2024-10-09 08:09 | ED.GENADUL_ITS ---
Discharge Plan Disposition Patient Disposition: Home Condition: Stable Discharge Details Clinical Impression: Dental infection Primary Care Provider: Georgette Reza ED Provider: Sourav Armenta Home Meds and New Rx's Prescriptions: New amoxicillin-pot clavulanate 875-125 mg tablet 1 tab PO BID Qty: 19 0RF Continued ibuprofen 800 mg tablet 800 mg PO TID PRN (Reason: pain) Qty: 270 3RF gabapentin 600 mg tablet 600 mg PO TID Qty: 270 3RF nifedipine 30 mg tablet extended release 30 mg PO DAILY Qty: 90 3RF norethindrone (contraceptive) 0.35 mg tablet 0.35 mg PO DAILY Qty: 28 1RF buprenorphine-naloxone [Suboxone] 8-2 mg film 2 film sublingual DAILY Patient Comments: PLACE TWO FILMS UNDER THE TONGUE EVERY DAY For 2 days confirmed with Radha Riddle 11/09/23 multivitamin [Multiple Vitamins] Tablet 1 tab PO QAM Qty: 30 0RF No Action pantoprazole 40 mg tablet,delayed release (DR/EC) 40 mg PO DAILY Qty: 90 3RF (DME) Prosthetic for left BKA See Rx Instructions .Route .MEDSUPPLY Qty: 1 0RF Rx Instructions: Please fit for and dispense prosthetic leg for left BKA. magnesium gluconate 27 mg magnesium (500 mg) tablet 500 mg PO DAILY@1000 Qty: 90 3RF (DME) Wheelchair See Rx Instructions .Route .MEDSUPPLY Qty: 1 0RF Rx Instructions: Please measure to fit properly. Patient's current wheelchair is to big with no brakes and broken seat. Discharge Instructions Additional Instructions: Take the antibiotic as prescribed. This could be something that continues to be an issue so I recommend following up with your dentist. If you feel significantly more ill, or unable to swallow liquids or have high fevers return to the emergency department for reevaluation HPI General Mode of arrival: ambulatory . Date/Time Provider Initiated Documentation: 10/09/24 07:49 . Limitations to Documentation: no limitations . Information obtained by: patient . History of Present Illness 43 year old F presents to the emergency department with the chief complaint of left lower tooth pain and swelling, described as moderate, Patient started experiencing this day(s) (3) and it has been constant. No relieving factors improve symptom(s), No exacerbating factors reported . Patient notes denies fever/chills. Related Data Home Medications ?Medication ?Instructions ?Recorded ?Confirmed buprenorphine 8 mg-naloxone 2 mg 2 film sublingual NOLBERTO LY 05/10/22 10/09/24 sublingual film (Suboxone) Prosthetic for left BKA #1 ea 10/23/23 10/09/24 pantoprazole 40 mg tablet,delayed 40 mg PO DAILY #90 t abs 10/23/23 10/09/24 release Held on 10/09/24. Instructions: Pt currently not taking multivitamin (Multiple Vitamins 1 tab PO QAM #30 tabs 11/10/23 10/09/24 tablet) Wheelchair #1 ea 12/12/23 10/09/24 gabapentin 600 mg tablet 600 mg PO TID #270 tabs 01/2110/09/24 ibuprofen 800 mg tablet 800 mg PO TID PRN pain #270 tabs 02/06/24 10/09/24 magnesium gluconate 27 mg 500 mg (18.5185 x 27 mg magn esium 02/06/24 10/09/24 magnesium (500 mg) tablet (500 mg)) PO DAILY@1000 #90 tabs Held on 10/09/24. Instructions: Pt has not hand any nifedipine 30 mg tablet,extended 30 mg PO DAILY #90 ta bs 05/13/24 10/09/24 release norethindrone (contraceptive) 0.35 0.35 mg PO DAILY #2 8 tabs 09/16/24 10/09/24 mg tablet amoxicillin 875 mg-potassium 1 tab PO BID #19 tabs 04/23 clavulanate 125 mg tablet Previous Rx's ?Medication ?Instructions ?Recorded Prosthetic for left BKA #1 ea 10/23/23 pantoprazole 40 mg tablet,delayed 40 mg PO DAILY #90 t abs 10/23/23 release Held on 10/09/24. Instructions: Pt currently not taking multivitamin (Multiple Vitamins 1 tab PO QAM #30 tabs 11/10/23 tablet) Wheelchair #1 ea 12/12/23 gabapentin 600 mg tablet 600 mg PO TID #270 tabs 01/21 ibuprofen 800 mg tablet 800 mg PO TID PRN pain #270 tabs 02/06/24 magnesium gluconate 27 mg 500 mg (18.5185 x 27 mg magn esium 10/09/24 magnesium (500 mg) tablet (500 mg)) PO DAILY@1000 #90 tabs Held on 10/09/24. Instructions: Pt has not hand any nifedipine 30 mg tablet,extended 30 mg PO DAILY #90 ta bs 05/13/24 release norethindrone (contraceptive) 0.35 0.35 mg PO DAILY #2 8 tabs 09/16/24 mg tablet amoxicillin 875 mg-potassium 1 tab PO BID #19 tabs 04/23 clavulanate 125 mg tablet Allergies Allergy/AdvReac Type Severity Reaction Status Date / Time No Known Allergies Allergy Verified 10/09/24 07:58 General Stated Complaint: DentalOral LEIF: 4 Review of Systems All systems reviewed & are unremarkable except as noted in HPI and below Constitutional Constitutional: Denies chills, Denies fever(s) and Denies weakness ENT Ears, Nose, Mouth, and Throat: Reports dental pain Cardiovascular Cardiovascular: Denies dyspnea Respiratory Respiratory: Denies cough and Denies dyspnea Neurologic Neurologic: Denies weakness Exam Const General: no acute distress Orientation: alert HENNY Head: normal to inspection Ears: external ears normal General nose exam: external nose normal Mouth: moist mucous membranes and no muffled voice Eyes General: appearance normal, both eyes and all related structures Neck Neck: normal visual inspection Resp Effort & Inspection: normal respiratory effort and able to speak in complete sentences Cardio Rate: regular rate Skin General skin exam: no rashes or lesions noted Neuro General: patient alert and patient oriented x3 Extrem General: normal to inspection Psych Mental Status: mental status grossly normal Course Vital Signs Vital signs: Vital Signs Temperature 37.1 C 10/09/24 07:50 Pulse 74 10/09/24 07:50 Respiratory Rate 15 10/09/24 07:50 Blood Pressure 137/84 10/09/24 07:50 Pulse Oximetry 100 10/09/24 07:50 Temperature 37.1 C 10/09/24 08:05 Temperature Source Oral 10/09/24 08:05 Pulse 74 10/09/24 08:05 Respiratory Rate 15 10/09/24 08:05 Blood Pressure 137/84 10/09/24 08:05 Blood Pressure Position Sitting 10/09/24 08:05 Pulse Oximetry 100 10/09/24 08:05 Oxygen Delivery Method Room Air 10/09/24 08:05 Oxygen Flow Rate 0 06/12/25 08:05 Pain Level 4 10/09/24 08:05 Medical Decision Making 43-year-old female comes in with several days of left lower posterior molar pain and today had some swelling on the outside of her jaw so came here. She has no submandibular swelling, no fevers or chills, breathing and swallowing normally. She is well-appearing on exam. She has no drooling or stridor. She does have swelling along the left lower jawline. She has a left posterior molar that has erosion, no drainable periapical abscess. No pain over the hyoid or restricted neck movements. Normal posterior pharynx with midline uvula. Suspect dental infection and likely dental abscess. I administer Augmentin and she will follow-up with her dentist. She has no findings on exam or history to suggest Maria Elena's. She will return if anything worsens. PFSH All Active Problems (Updated 10/09/24 @ 08:13 by Sourav Armenta MD) Dental infection (Acute) Amputation leg, bilat (Acute) Bilateral hand pain (Acute) 01/01/24 Orthopaedics Chronic osteomyelitis of toe of left foot (Acute) Acquired hyperbilirubinemia (Acute) Thrombocytopenia (Chronic) Opioid use disorder (Acute) Alcohol withdrawal syndrome (Acute) Encounter for counseling regarding contraception (Acute) Possible exposure to STI (Acute) Abdominal aneurysm, ruptured (Acute) Encounter for screening examination for sexually transmitted disease (Acute) Abscess of right thigh (Acute) Leg wound, right (Acute) Anemia (Chronic) Gangrene of left foot (Acute) Retained foreign body (Acute) Vulvar cellulitis (Acute) History of herpes genitalis (Acute) Vulvar pain (Acute) Open wound of finger of right hand (Acute) Cellulitis of toe of left foot (Acute) Abnormal finding on imaging (Acute) Abnormal MRI (Acute) Dysuria (Acute) 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 Patient has appointment at [facility] in [place] for consideration of termination History of intravenous drug abuse (Acute) Cellulitis of left lower extremity (Acute) Poor intravenous access (Acute) Chronic infection as complication of amputation (Acute) Heart murmur (Acute) Hypotension (Chronic) Petechial rash (Acute) Acute on chronic anemia (Acute) Osteomyelitis of right lower extremity (Chronic) DVT, lower extremity, distal, acute (Acute) 10/24 2018 left lower extremity. Rx with Eliquis. Abnormal uterine bleeding (AUB) (Acute) On. Set 10/24/2018 heavy flow coinciding with initiation of Eliquis Normocytic hypochromic anemia (Acute) 10/26/2018 hemoglobin 8.2 MCV 83 Medical History Tenosynovitis of finger Leg wound, right Cellulitis of finger of right hand Endometriosis Raynaud disease Hx of hepatitis C AB +. No viral load. Hx of opioid abuse Currently in treatment at [facility]. Suboxone. Surgical History H/O hand surgery contracted post-op History of transesophageal echocardiography (YG) negative Retained foreign body L groin, s/p unsuccessful exploratory surgery Complete below knee amputation of right lower extremity 2018. 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 [facility]. 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 Family History Father Diabetes Paternal Grandfather Diabetes Paternal Aunt Diabetes Maternal Grandmother Breast cancer Maternal Aunt Multiple sclerosis Social History (Updated 04/09/24 @ 13:47 by Laura Quigley LPN) Smoking/Tobacco Use Status: Never Smoking risk assessment performed?: Yes Alcohol Intake: current Drug use: Current Sobriety Substance use type: former substance user, crack/cocaine, heroin and methamphetamine Details: former cocaine (snorted, smoked, IV) and heroin use (IV), as well as crystal meth (IV). Patient is currently enrolled at [facility], on suboxone smoked crack before coming here 08/14 Household members: children and other Details: Patient resides at her sister's house with her daughter Housing: apartment Number of Children: 1 Communication Needs: None Education Level: college Details: 1 year of college Do you need help understanding health information?: Never current occupation: Unemployed, had 1 year of college Sexually active: Yes Do you think of yourself as: straight/heterosexual Current gender identity: female What is your relationship status?: How often do you talk on the phone with friends or family?: twice per week How often do you get together with friends or relatives?: once per week Panel score (0-1 are the most socially isolated patients): 1 What type of physical activity do you participate in: other Duration: 30-45 minutes/day Frequency: daily Seatbelt use: always Water heater temp set <120 deg: Yes Working smoke detector in home: Yes Carbon monox detector in home: Yes Do you feel safe at home: Yes (new restraining order on ) Do you feel safe in your relationship?: No Additional Social history: Ambulates with crutches - 2 falls recently
[2024-10-09] MEDS: Amoxicillin 875/Clav. 125 TAB PO (08:14)
== END 2024-10-09 08:20 | disposition home or self-care (01) ==
PROVIDERS: Emergency Provider Emergency Medicine; PCP Nurse Practitioner
DX: R22.0 Localized swelling, mass and lump, head (principal); K08.89 Other specified disorders of teeth and supporting structures
CPT/HCPCS: 99283

== ENCOUNTER 2025-02-25 01:58 | Outpatient (CLI) | payer MEDICARE, MEDICAID, SELFPAY ==
[2025-02-25 11:27] LABS: Glucose Negative (Negative)
[2025-02-25 11:36] LABS: C & S Indicated? No; RBC 0-2 HPF (0-2)
== END 2025-02-25 01:59 | disposition home or self-care (01) ==
LOC: LBO 01:58
PROVIDERS: PCP Nurse Practitioner; Visit Provider Family Medicine
DX: R53.83 Other fatigue (principal); Z11.59 Encounter for screening for other viral diseases; D61.818 Other pancytopenia; D64.9 Anemia, unspecified; Z13.220 Encounter for screening for lipoid disorders
CPT/HCPCS: 36415; 80053; 80061; 86803; 87389; 81003; 81015; 82607; 82728; 83036; 84443; 85025

== ENCOUNTER 2025-04-09 01:38 | Outpatient (CLI) | payer MEDICARE, MEDICAID, SELFPAY ==
[2025-04-09 09:52] LABS: Abs Immature Grans 0.02 10^3/uL (0.0-0.06); HCT 36.9 % (36.0-46.0); HGB 11.8 g/dL (11.2-15.7); Immature Grans % 0.4 %; MCH 30.0 pg (27.0-33.0); MCHC 32.0 % (32.0-36.0); MCV 94 fL (80-95); MPV 11.9 fL (8.0-11.0); Platelet Count 171 10^3/uL (130-400); RBC 3.93 10^6/uL (3.93-5.22); RDW 13.7 % (11.7-14.6); RDW-SD 47.5 fL; WBC 5.55 10^3/uL (4.4-10.8)
[2025-04-09 10:22] LABS: Hemoglobin A1C 4.6 % (<5.7)
[2025-04-09 11:18] LABS: TSH (W/Ref FT4) 3.89 uIU/mL (0.55-4.78)
[2025-04-09 11:19] LABS: Ferritin 27 ng/mL (7-271); Vitamin B12 842 pg/mL (211-911)
[2025-04-09 15:04] LABS: ALT 93 U/L (10-49); AST 34 U/L (<34); Albumin 4.2 g/dL (3.2-5.0); Alkaline Phosphatase 68 U/L (46-116); Anion Gap 8.4 mmol/L (3-11); BUN 23 mg/dL (9-23); Bilirubin, Total 0.3 mg/dL (0.2-1.2); CO2 27.6 mmol/L (20.0-31.0); Calcium 9.4 mg/dL (8.3-10.6); Chloride 105 mmol/L (98-107); Cholesterol 139 mg/dL (<200); Glucose 84 mg/dL (74-106); HDL Cholesterol 80 mg/dL (>40); Potassium 4.0 mmol/L (3.5-5.1); Sodium 141 mmol/L (136-145); Total Protein 7.5 g/dL (5.7-8.2)
[2025-04-09 21:04] LABS: HIV-1/2 Ag & Ab Screen Negative (Negative)
[2025-04-09 21:05] LABS: Hepatitis C Ab w Rflx HCV PCR Reactive (Negative)
== END 2025-04-09 01:39 | disposition home or self-care (01) ==
LOC: LBO 01:38
PROVIDERS: Family Medicine; Internal Medicine Nephrology; PCP Nurse Practitioner; Visit Provider Nurse Practitioner
DX: Z13.220 Encounter for screening for lipoid disorders (principal); Z11.59 Encounter for screening for other viral diseases; D64.9 Anemia, unspecified; D61.818 Other pancytopenia; R73.9 Hyperglycemia, unspecified; R53.83 Other fatigue
CPT/HCPCS: 36415; 80053; 80061; 80069; 86803; 87389; 87522; 82043; 82570; 82607; 82728; 83036; 84443; 85025